=== PATIENT | female | born 1955 | race African-American/Black ===

== ENCOUNTER 2019-01-23 10:33 | Emergency (ER) | payer OTHER ==
--- OUTSIDE RECORDS SUMMARY | 2019-01-23 10:37 | XMS REPORT | CCD ---
:1955 Author Organization [facility] Care Team Providers Name Role Phone Marlene Riggins Referring Provider Lynn Penaloza Consulting Provider Problem List Condition Effective Dates Status CA - Cancer of colon Active Cholesterol Active H/O: stroke Active HT - Hypertension Active Vital Signs Most recent to oldest [Reference 1 2 Range]: Height 160.02 cm 160.02 cm (01/28/2012 09:02:00) (01/10/2012 09:26:00) Temperature Oral [96.4-99.1 DegF] 97.8 DegF 98.3 DegF (01/28/2012 09:02:00) (01/10/2012 09:26:00) Systolic Blood Pressure [90-140 mmHg] 181 mmHg 144 mmHg *HI* *HI* (01/28/2012 09:02:00) (01/10/2012 09:26:00) Diastolic Blood Pressure [60-90 mmHg] 81 mmHg 76 mmHg (01/28/2012 09:02:00) (01/10/2012 09:26:00) Respiratory Rate [14-20 BRMIN] 18 BRMIN 18 BRMIN (01/28/2012 09:02:00) (01/10/2012 09:26:00) Peripheral Pulse Rate [60-100 bpm] 53 bpm 62 bpm *LOW* (01/10/2012 09:26:00) (01/28/2012 09:02:00) Weight 80.710 kg 81.080 kg (01/28/2012 09:02:00) (01/10/2012 09:26:00)
--- OUTSIDE RECORDS SUMMARY | 2019-01-23 10:37 | XMS REPORT | Continuity of Care Document ---
:1955 Author Organization [employer] Care Team Providers Name Role Phone [facility] [employer] Unavailable Unavailable Problems Problem Status Onset Classification Date Comments Source Date Reported UNK Active 01/16/20 [address] [facility] CKD Active 01/16/20 [facility] [place] 620.2 - OVARIAN Active 04/08/20 [facility] [place] FOLLOW UP Active 03/12/[address] CANCER OF RECTAL Active 01/10/[address] COLON CANCER Active 12/27/[address] [place] - Cancer of Active Problem 11/08/2012 [facility], DAMIAN Han[place], OPILogan Baez Cholesterol Active Problem 11/08/2012 [facility], DAMIAN [place], [place] H/O: stroke Active Problem 11/08/2012 [facility], DAMIAN [place], OPID [place] HT - Hypertension Active Problem 11/08/2012 [facility], DAMIAN [place], [place] - Cancer of Active Problem 01/20/2019 [facility] Stroke Resolved Problem 01/20/2019 [facility] H/O: stroke Active Problem 01/20/2019 [facility] HT - Hypertension Active Problem 01/20/2019 [facility] Hyperlipidemia Resolved Problem 01/20/2019 [facility] HTN (Confirmed) Resolved Problem 01/20/2019 [facility] Kidney disease Resolved Problem 01/20/2019 [facility] Colon cancer Resolved Problem 01/20/2019 [facility] Medications Medication Details Route Status Patient Ordering Order Source Instructions Provider Date atorvastatin 40 40 mg=1 tab, Active mg oral tablet PO, Bedtime, # 2019 [place] 30 tab, 0 Refill(s) Aspirin 81 MG 81 mg=1 tab, Active Enteric Coated PO, Daily, # 90 2019 [facility] Tablet tab, 3 Refill(s) Ondansetron 4 MG 4 mg=1 tab, PO, Active Disintegrating BID, PRN Nausea 2019 [facility] Tablet [Zofran] and Vomiting, Dissolve tab under tongue, # 10 tab, 0 Refill(s) Acetaminophen 300 1 tab, PO, Q6H, Active MG / Codeine PRN Pain, X 7 2019 [facility] Phosphate 30 MG day, # 28 tab, Oral Tablet 0 Refill(s) [Tylenol with Codeine #3] Docusate Sodium 1 tab, PO, BID, Active 50 MG / X 10 day, # 20 2019 [facility] sennosides, GROUP HOME tab, 0 8.6 MG Oral Refill(s) Tablet metoprolol 25 mg 25 mg=1 tab, Active oral tablet, PO, Daily, # 30 2019 [facility] extended release tab, 0 Refill(s) Clonidine 0.3 mg, 1 tab, No Longer Hydrochloride 0.3 Route: PO, Drug Active 2018 [facility] Oral Tablet form: TAB, TID, Dosing Weight 62.358, kg, Start date: 01/17/19 13:00:00 CDT, Duration: 30 day, Stop date: 02/16/19 9:00:00 CDT, 0Notes: (Same As: Catapres) metoprolol 25 mg, 1 tab, No Longer extended release Route: PO, Drug Active 2018 [facility] form: ERTAB, Daily, Start date: 01/17/19 12:00:00 CDT, Duration: 30 day, Stop date: 02/16/19 9:00:00 CDT, 0Notes: (Same as: Toprol XL) Do Not Crush Ondansetron 4 mg, 2 mL, Inactive Route: IVP2018 [facility] Drug form: INJ, ONCE, Dosing Weight 62.358, kg, Start date: 01/17/19 11:09:00 CDT, Stop date: 01/17/19 11:09:00 CDT, 0Notes: (Same as: Zofran) MEDICATION WASTE Product Size: 4 mg Product Wasted: ___ mg Reglan 5 mg, 1 mL, Inactive Route: IVP, 2018 [facility] Drug form: INJ, ONCE, Dosing Weight 62.358, kg, Start date: 01/17/19 10:31:00 CDT, Stop date: 01/17/19 10:31:00 CDT, 0Notes: (Same as: Reglan) Hydralazine 10 mg, 0.5 mL, No Longer Route: IVP, Active 2018 [facility] Drug form: INJ, Q4H, Dosing Weight 62.358, kg, PRN Hypertension, Start date: 01/17/19 10:31:00 CDT, Duration: 30 day, Stop date: 02/16/19 10:30:00 CDT, 0Notes: (Same as: Apresoline) Push over 5 minutes Allopurinol 100 mg, 1 tab, No Longer Route: PO, Drug Active 2018 [facility] form: TAB, Daily, Dosing Weight 62.358, kg, Start date: 01/17/19 9:00:00 CDT, Duration: 30 day, Stop date: 02/15/19 9:00:00 CDT, 0Notes: (Same as: Zyloprim) ferrous gluconate 256 mg, Route: No Longer PO, Drug form: Active 2018 [facility] TAB, Daily, Dosing Weight 62.358, kg, Start date: 01/17/19 9:00:00 CDT, Duration: 30 day, Stop date: 02/15/19 9:00:00 CDT Docusate Sodium 1 tab, Route: No Longer 50 MG / PO, Drug Form: Active 2018 [facility] sennosides, GROUP HOME TAB, Dosing 8.6 MG Oral Weight 62.358, Tablet kg, BID, Start date: 01/17/19 9:00:00 CDT, Duration: 30 day, Stop date: 02/15/19 17:00:00 CDT, 0Notes: (Same as Senokot-S) Equiv. to Zoraida-Colace. ferrous sulfate 325 mg, 1 tab, No Longer Route: PO, Drug Active 2018 [facility] form: ECTAB, Daily, Start date: 01/17/19 9:00:00 CDT, Duration: 30 day, Stop date: 02/15/19 9:00:00 CDT, 0Notes: Give with food. "Do Not Crush" paricalcitol 1 microgram, 1 No Longer 0.001 MG Oral cap, Route: PO, Active 2019 [facility] Capsule Drug form: CAP, Daily, Dosing Weight 62.358, kg, Start date: 01/17/19 9:00:00 CDT, Duration: 30 day, Stop date: 02/15/19 9:00:00 CDT, 0Notes: (Same as: Zemplar) Nifedical XL 30 mg, 1 tab, No Longer Route: PO, Drug Active 2018 [facility] form: ERTAB, Daily, Dosing Weight 62.358, kg, Start date: 01/17/19 9:00:00 CDT, Duration: 30 day, Stop date: 02/15/19 9:00:00 CDT, 0Notes: (Same as: Adalat CC, Procardia XL) Give on empty stomach. Take 1 hour before or 2 hours after meal; "Avoid grapefruit and grapefruit juice". Do not crush Nephro-Flash Rx 1 tab, Route: No Longer PO, Drug Form: 2018 [facility] TAB, Dosing Weight 62.358, kg, Daily, Start date: 01/17/19 9:00:00 CDT, Duration: 30 day, Stop date: 02/15/19 9:00:00 CDT, 0Notes: (Same as: Nephro-Flash Rx and Diatx) Give with food. Triiodothyronine 5 microgram, 1 No Longer tab, Route: PO, 2018 [facility] Drug form: TAB, Q630AM, Dosing Weight 62.358, kg, Start date: 01/17/19 6:30:00 CDT, Duration: 30 day, Stop date: 02/15/19 6:30:00 CDT, 0Notes: (Same as: Cytomel) Thyroxine 50 microgram, 1 No Longer tab, Route: PO, 2018 [facility] Drug form: TAB, Q630AM, Dosing Weight 62.358, kg, Start date: 01/17/19 6:30:00 CDT, Duration: 30 day, Stop date: 02/15/19 6:30:00 CDT, 0Notes: Take 1 hour before or 2 hours after meal; Enteral feeds may interefere with the absorption of this medication.(Juan e as:Levothroid, Synthroid) heparin 5,000 unit, 1 No Longer mL, Route: Active 2019 [facility] SUB-Q, Drug form: INJ, Q12H, Dosing Weight 62.358, kg, Start date: 01/17/19 1:00:00 CDT, Stop date: 02/15/19 13:00:00 CDT, 0Notes: porcine heparin atorvastatin 40 mg, 1 tab, No Longer Route: PO, Drug Active 2018 [facility] form: TAB, Bedtime, Dosing Weight 62.358, kg, Start date: 01/16/19 21:00:00 CDT, Duration: 30 day, Stop date: 02/14/19 21:00:00 CDT, 0Notes: (Same as: Lipitor) Acetaminophen 325 2 tab, Route: No Longer MG / Hydrocodone PO, Drug Form: Active 2018 [facility] Bitartrate 5 MG TAB, Dosing Oral Tablet Weight 62.358, [[place] 5/325] kg, Q4H, PRN Pain Score 4-6, STAT, Start date: 01/16/19 19:40:00 CDT, Duration: 30 day, Stop date: 02/15/19 19:39:00 CDT, 0Notes: (Same as: [place] 325/5) Do not exceed 4gm/day of acetaminophen. Acetaminophen 325 2 tab, Route: Inactive MG / Hydrocodone PO, Dosing 2018 [facility] Bitartrate 5 MG Weight 62.358, Oral Tablet kg, Q4H, STAT, [[place] 5/325] Start date: 01/16/19 19:36:00 CDT, Duration: 30 day, Stop date: 02/15/19 16:00:00 CDT Milk of Magnesia 30 ml, Route: No Longer PO, Drug Form: Active 2018 [facility] SUSP, Dosing Weight 62.358, kg, ONCE, PRN as needed for constipation, Start date: 01/16/19 18:23:00 CDT, 0Notes: (Same as: Milk of Magnesia, MOM) Aspirin 81 MG 81 mg, 1 tab, No Longer Chewable Tablet Route: PO, Drug Active 2018 [facility] form: CHEWTAB, Daily, Dosing Weight 62.358, kg, Start date: 01/16/19 17:30:00 CDT, Duration: 30 day, Stop date: 02/15/19 9:00:00 CDT, 0Notes: Take with food. Zofran 4 mg, 2 mL, No Longer Route: IVP, 2018 [facility] Drug form: INJ, Q8H, Dosing Weight 62.358, kg, PRN Nausea, Start date: 01/16/19 17:24:00 CDT, Duration: 30 day, Stop date: 02/15/19 17:23:00 CDT, 0Notes: (Same as: Zofran) MEDICATION WASTE Product Size: 4 mg Product Wasted: ___ mg Lactulose 667 10 gm, 15 ml, No Longer MG/ML Oral Route: PO, Drug Active 2018 [facility] Solution form: SYRP, TID, Dosing Weight 62.358, kg, PRN Constipation, Start date: 01/16/19 17:23:00 CDT, Duration: 30 day, Stop date: 02/15/19 17:22:00 CDT, 0Notes: (Same as:Chronulac) Morphine 2 mg, 1 mL, No Longer Route: IVP, 2018 [facility] Drug form: INJ, Q4H, Dosing Weight 62.358, kg, PRN Pain Score 7-10, Start date: 01/16/19 17:23:00 CDT, Duration: 30 day, Stop date: 02/15/19 17:22:00 CDT, 0Notes: (Same as:MORPhine Sulfate) Metoprolol 2.5 mg, 2.5 mL, No Longer Route: IVP, 2018 [facility] Drug form: INJ, Q4H, Dosing Weight 62.358, kg, PRN Arrhythmias, Start date: 01/16/19 17:16:00 CDT, Duration: 30 day, Stop date: 02/15/19 17:15:00 CDT, 0Notes: (Same as: Lopressor) Push over 2 minutes Epogen 8,000 unit, 2 No Longer mL, Route: 2018 [facility] SUB-Q, Drug form: INJ, Q-M-W-F, Dosing Weight 62.358, kg, Start date: 01/16/19 17:00:00 CDT, Duration: 30 day, Stop date: 02/13/19 17:00:00 CDT, 0Notes: (Same as: Procrit) epoetin jennifer 4000 unit/1 ml VL For dialysis only. (Epogen) WASTE: F/P - Red; E -Red MEDICATION WASTE Product Size: 4000 unit Product Wasted: ___ unit Hydralazine 50 mg, 1 tab, No Longer Hydrochloride 100 Route: PO, Drug Active 2018 [facility] Oral Tablet form: TAB, TID, Dosing Weight 62.358, kg, Start date: 01/16/19 17:00:00 CDT, Duration: 30 day, Stop date: 02/15/19 13:00:00 CDT, 0Notes: (Same as: Apresoline) May interfere w/enteral feedings Take With Food Promethazine 6.25 mg, Route: Inactive IVPB, ONCE, 2018 [facility] Dosing Weight 62.358, kg, PRN Nausea & Vomiting, Start date: 01/16/19 12:59:00 CDT Naloxone 0.1 mg, Route: Inactive SUB-Q, Q6H, 2018 [facility] Dosing Weight 62.358, kg, PRN Itching, Start date: 01/16/19 12:59:00 CDT, Duration: 30 day, Stop date: 02/15/19 12:58:00 CDT Meperidine 12.5 mg, Route: Inactive IVP, Q30Min, 2018 [facility] Dosing Weight 62.358, kg, PRN Other -See Comment, For shivering, Start date: 01/16/19 12:59:00 CDT, Duration: 2 doses or times, Stop date: Limited # of times Ondansetron 4 mg, Route: Inactive IVP, ONCE, 2018 [facility] Dosing Weight 62.358, kg, PRN Nausea & Vomiting, Start date: 01/16/19 12:59:00 CDT Flumazenil 0.2 mg, Route: Inactive IVP, PRN, 2019 [facility] Dosing Weight 62.358, kg, PRN Benzodiazepine Reversal, Initial dose, Start date: 01/16/19 12:59:00 CDT, Duration: 30 day, Stop date: 02/15/19 12:58:00 CDT Fentanyl 50 microgram, Inactive Route: IVP, 2019 [facility] Q5Min, Dosing Weight 62.358, kg, PRN Pain Score 7-10, Priority: Routine, Start date: 01/16/19 12:59:00 CDT, Duration: 2 doses or times, Stop date: Limited # of times Hydromorphone 0.5 mg, Route: Inactive IVP, Q5Min, 2018 [facility] Dosing Weight 62.358, kg, PRN Pain Score 7-10, Start date: 01/16/19 12:59:00 CDT, Duration: 4 doses or times, Stop date: Limited # of times Diphenhydramine 12.5 mg, Route: Inactive IVP, Drug form: 2019 [facility] INJ, Q6H, Dosing Weight 62.358, kg, PRN Itching, Start date: 01/16/19 12:59:00 CDT, Duration: 30 day, Stop date: 02/15/19 12:58:00 CDT Albuterol 0.83 2.49 mg, Route: Inactive MG/ML Inhalant NEB, Q20Min, 2018 [facility] Solution Dosing Weight 62.358, kg, PRN Wheezing, Priority: Routine, Start date: 01/16/19 12:59:00 CDT, Duration: 30 day, Stop date: 02/15/19 12:58:00 CDT Acetaminophen 1,000 mg, Inactive Route: PO, Drug 2018 [facility] form: TAB, ONCE, Dosing Weight 62.358, kg, PRN Pain Score 1-3, Start date: 01/16/19 12:59:00 CDT Hydralazine 10 mg, Route: Inactive IVP, Q20Min, 2018 [facility] Dosing Weight 62.358, kg, PRN Elevated BP, Start date: 01/16/19 12:59:00 CDT, Duration: 2 doses or times, Stop date: Limited # of times Labetalol 10 mg, Route: Inactive IVP, Q5Min, 2018 [facility] Dosing Weight 62.358, kg, PRN Elevated BP, Start date: 01/16/19 12:59:00 CDT, Duration: 5 doses or times, Stop date: Limited # of times esmolol (ANES) Route: IV, Drug Inactive 01/16/ [facility] form: INJ, 2018 ONCE, Stop date: 01/16/19 12:45:00 CDT Dextrose 50% in Route: IV, Stop Inactive Water IV (ANES) date: 01/16/192018 12:45:00 CDT phenylephrine Route: IV, Drug Inactive 01/16/ MH (ANES) form: [id number] ONCE, Stop date: 01/16/19 12:45:00 CDT EPINEPHrine Route: IV, Drug Inactive 01/16/ MH (ANES) form: [id number] ONCE, Stop date: 01/16/19 12:43:00 CDT calcium chloride Route: IV, Drug Inactive 01/16/ MH (ANES) form: 2018, Stop date: 01/16/19 12:33:00 CDT propofol (ANES) Route: IV, Drug Inactive MH form: [id number], Stop date: 01/16/19 11:52:00 CDT Amidate (ANES) Route: IV, Drug Inactive form: INJ2018, Stop date: 01/16/19 11:52:00 CDT norepinephrine Route: IV, Drug Inactive 01/16/ MH (ANES) form: INJ2018, Stop date: 01/16/19 11:52:00 CDT lidocaine (ANES) Route: IV, Drug Inactive 01/16/ MH form: [id number], Stop date: 01/16/19 11:52:00 CDT ondansetron Route: IV, Drug Inactive 01/16/ MH (ANES) form: INJ2018 ONCE, Stop date: 01/16/19 11:42:00 CDT ceFAZolin (ANES) Route: IV, Drug Inactive 01/16/ MH form: INJ2018, Stop date: 01/16/19 11:42:00 CDT fentaNYL (ANES) Route: IV, Drug Inactive 01/16/ MH form: [id number], Stop date: 01/16/19 11:37:00 CDT vancomycin (ANES) Route: IV, Drug Inactive 1000 mg form: INJ, 2019 [facility] Start date: 01/16/19 10:50:00 CDT, Stop date: 01/16/19 11:50:00 CDT Sodium Chloride Route: IV, Inactive 0.9% IV (ANES) Total Volume: 2019 [facility] 1000 mL 1,000, Start date: 01/16/19 10:46:00 CDT, Stop date: 01/16/19 11:46:00 CDT Insulin regular 5 unit, Route: Inactive IV, ONCE, 2018 [facility] Dosing Weight 62.358, kg, Start date: 01/16/19 10:40:00 CDT, Stop date: 01/16/19 10:40:00 CDT Dextrose 12.5 gm, Route: Inactive IVPB, ONCE, 2018 [facility] Dosing Weight 62.358, kg, Start date: 01/16/19 10:39:00 CDT, Stop date: 01/16/19 10:39:00 CDT Calcium Chloride 1,000 mL, Rate: Inactive 0.0014 MEQ/ML / 25 ml/hr, 2018 [facility] Potassium Infuse over: 40 Chloride 0.004 hr, Route: IV, MEQ/ML / Sodium Dosing Weight Chloride 0.103 62.358 kg, MEQ/ML / Sodium Total Volume: Lactate 0.028 1,000, Start MEQ/ML Injectable date: 01/16/19 Solution 8:46:00 CDT, Duration: 1 day, Stop date: 01/17/19 8:45:00 CDT, 1.68, m2, 0 Sodium Chloride 1,000 mL, Rate: Inactive 0.9% IV 1,000 mL 25 ml/hr, 2018 [facility] Infuse over: 40 hr, Route: IV, Dosing Weight 62.358 kg, Total Volume: 1,000, Start date: 01/16/19 8:46:00 CDT, Duration: 1 day, Stop date: 01/17/19 8:45:00 CDT, 1.68, m2, 0 Vitamin B12 monthly, 0 Active Refill(s) 2019 [facility] allopurinol 100 100 mg=1 tab, Active mg oral tablet PO, Daily, # 90 2019 [facility] tab, 1 Refill(s) Aspirin 81 MG 81 mg=1 tab, Active Chewable Tablet PO, Daily, tab, 2019 0 Refill(s) 24 HR Nifedipine 30 mg=1 tab, No Longer 30 MG Extended PO, Daily, # 30 Active 2019 [facility] Release Tablet tab, 0 [Nifedical] Refill(s) paricalcitol 1 microgram=1 Active 0.001 MG Oral cap, PO, Daily, 2019 Capsule # 30 cap, 0 Refill(s) levothyroxine 50 50 microgram=1 Active mcg (0.05 mg) tab, PO, Daily, 2019 oral tablet # 30 tab, 0 Refill(s) liothyronine 5 5 microgram=1 Active mcg oral tablet tab, PO, Daily, 2019 # 30 tab, 0 Refill(s) Ferate 256 mg (28 256 mg=1 tab, Active mg elemental PO, Daily, 0 2019 iron) oral tablet Refill(s) Hydralazine 100 mg=1 tab, Active Hydrochloride 100 PO, TID, # 90 2019 [facility] MG Oral Tablet tab, 3 Refill(s) atorvastatin 40 40 mg=1 tab, Active mg oral tablet PO, Bedtime, # 2019 30 tab, 0 Refill(s) Clonidine 0.3 mg=1 tab, Active Hydrochloride 0.3 PO, TID, # 60 2019 [facility] MG Oral Tablet tab, 1 Refill(s) Vancomycin 1 gm, Route: No Longer IVPB, PRE OP, Active 2019 [facility] Dosing Weight 81.136, kg, Start date: 01/15/19 13:00:00 CDT, Duration: 1 day, Stop date: 01/16/19 12:59:00 CDT, ABX Indication: Surgical Prophylaxis, 0Notes: TIME CRITICAL MEDICATION (Same As: Vancocin) Infusion rate 2001 mg: infuse over 2.5 hours For adult patients only: Round to nearest 250 mg per Medical Staff approval MEDICATION WASTE Product Size: 1000 mg Product Wasted: ___ mg Ancef + sterile 2 gm, Route: No Longer water 20 mL IV, PRE OP, Active 2018 [facility] Dosing Weight 81.136, kg, Start date: 01/15/19 13:00:00 CDT, Duration: 1 day, Stop date: 01/16/19 12:59:00 CDT, ABX Indication: Surgical Prophylaxis, 0Notes: (Same As: uSndar Lennon) MEDICATION WASTE Product Size: 1000 mg Product Wasted: ___ mg Allergies, Adverse Reactions, Alerts Substance Category Reaction Severity Reaction Status Date Comments Source type Reported amLODIPine Assertion Drug Active allergy [facility] Immunizations No Data Provided for This Section Results Order Name Results Value Reference Date Interpretation Comments Source Range CHEM PANEL eGFR 13 01/18 Result Comment: [facility] eGFR is calculated using the CKD-EPI formula. In most young, healthy individuals the eGFR will be >90 mL/min/1.73m2 . The eGFR declines with age. An eGFR of 60-89 may be normal in some populations, particularly the elderly, for whom the CKD-EPI formula has not been extensively validated. Use of the eGFR is not recommended in the following populations:< br/>
Lizy viduals with unstable creatinine concentration s, including patients and those with serious co-morbid conditions.<b r/>
Patie nts with extremes in muscle mass or diet.

The data above are obtained from the National Kidney Disease Education Program (NKDEP) which additionally recommends that when the eGFR is used in patients with extremes of body mass index for purposes of drug dosing, the eGFR should be multiplied by the estimated BMI. CHEM PANEL Sodium Lvl 141 135 - 145 01/18 [facility] CHEM PANEL Creatinine 3.85 0.50 - 01/18 Lvl 1.40 [facility] CHEM PANEL Glucose Lvl 102 70 - 99 01/18 [facility] CHEM PANEL BUN 19 7 - 22 01/18 [facility] CHEM PANEL Calcium Lvl 8.6 8.5 - 10.5 01/18 [facility] CHEM PANEL Chloride Lvl 107 95 - 109 01/18 [facility] CHEM PANEL CO2 29 24 - 32 01/18 [facility] CHEM PANEL Potassium 3.7 3.5 - 5.1 01/18 Lvl /2018 [facility] CHEM PANEL AGAP 8.7 10.0 - 01/18 MH 20.0 /2018 [facility] HEMATOLOGY Segs 64.4 45.0 - 01/18 MH 75.0 /2019 [facility] HEMATOLOGY Eosinophils 3.7 0.0 - 4.0 01/18 [facility] HEMATOLOGY Monocytes 21.0 2.0 - 12.0 01/18 /2018 [facility] HEMATOLOGY Basophils 0.7 0.0 - 1.0 01/18 [facility] HEMATOLOGY Lymphocytes 10.2 20.0 - 01/18 MH 40.0 /2018 [facility] HEMATOLOGY Neutrophils 4.5 1.5 - 8.1 01/18 MH # /2018 [facility] HEMATOLOGY Lymphocytes 0.7 1.0 - 5.5 01/18 MH # /2018 [facility] HEMATOLOGY Eosinophils 0.3 0.0 - 0.5 01/18 MH # /2018 [facility] HEMATOLOGY Monocytes # 1.5 0.0 - 0.8 01/[address] [facility] WBC 7.0 3.7 - 10.4 01/[address] [facility] RBC 2.62 4.20 - 01/18 MH 5.40 /[address] [facility] Hgb 7.6 12.0 - 01/[address] [facility] Hct 22.6 36.0 - 01/18 MH 48.0 /[address] [facility] MCV 86.4 80.0 - 01/18 MH 98.0 /[address] [facility] MCHC 33.6 32.0 - 01/[address] [facility] MCH 29.0 27.0 - 01/[address] [facility] RDW 15.8 11.5 - 01/18 14.5 /[address] [facility] MPV 9.7 7.4 - 10.4 01/[address] [facility] Platelet 98 133 - 450 01/18 [facility] BLOOD BANK RBC product Product available 01/17 Result RESULTS (01/17/19 6:45 AM) Comment: [facility] 01/17/2019 07:05 [id number]
notified brennen CHEM PANEL eGFR 01/17 Result Comment: [facility] eGFR is calculated using the CKD-EPI formula. In most young, healthy individuals the eGFR will be >90 mL/min/1.73m2 . The eGFR declines with age. An eGFR of 60-89 may be normal in some populations, particularly the elderly, for whom the CKD-EPI formula has not been extensively validated. Use of the eGFR is not recommended in the following populations:< br/>
Lizy viduals with unstable creatinine concentration s, including patients and those with serious co-morbid conditions.<b r/>
Patie nts with extremes in muscle mass or diet.

The data above are obtained from the National Kidney Disease Education Program (NKDEP) which additionally recommends that when the eGFR is used in patients with extremes of body mass index for purposes of drug dosing, the eGFR should be multiplied by the estimated BMI. CHEM PANEL BUN 34 7 - 22 01/17 [facility] CHEM PANEL Creatinine 5.10 0.50 - 01/17 MH Lvl 1.40 [facility] CHEM PANEL Glucose Lvl 117 70 - 99 01/17 [facility] CHEM PANEL Chloride Lvl 106 95 - 109 01/17 [facility] CHEM PANEL Potassium 5.2 3.5 - 5.1 01/17 Lvl /2018 [facility] CHEM PANEL Sodium Lvl 141 135 - 145 01/17 [facility] CHEM PANEL CO2 25 24 - 32 01/17 [facility] CHEM PANEL Calcium Lvl 8.5 8.5 - 10.5 01/17 [facility] CHEM PANEL AGAP 15.2 10.0 - 01/17 MH 20.0 [facility] HEMATOLOGY Basophils 0.8 0.0 - 1.0 01/17 [facility] HEMATOLOGY Segs 70.0 45.0 - 01/17 MH 75.0 [facility] HEMATOLOGY Lymphocytes 8.2 20.0 - 01/17 MH 40.0 [facility] HEMATOLOGY Monocytes 19.0 2.0 - 12.0 01/17 [facility] HEMATOLOGY Eosinophils 2.0 0.0 - 4.0 01/17 [facility] HEMATOLOGY Neutrophils 4.3 1.5 - 8.1 01/17 MH # /2018 [facility] HEMATOLOGY Lymphocytes 0.5 1.0 - 5.5 01/17 # [facility] HEMATOLOGY Monocytes # 1.2 0.0 - 0.8 01/17 [facility] HEMATOLOGY Eosinophils 0.1 0.0 - 0.5 01/17 MH # /2018 [facility] HEMATOLOGY Hct 21.1 36.0 - 01/17 MH 48.0 [facility] HEMATOLOGY MCV 87.7 80.0 - 01/17 MH 98.0 [facility] HEMATOLOGY Hgb 6.8 12.0 - 01/17 Result MH 16.0 Comment: [facility] Critical Result(s) called to jarod rodríguez at 01/17/2019 06:21_ by hd_. Read back OK. HEMATOLOGY MCH 28.4 27.0 - 01/17 MH 31.0 /2018 [facility] HEMATOLOGY RDW 16.6 11.5 - 01/17 MH 14.5 /2018 [facility] HEMATOLOGY Platelet 102 133 - 450 01/17 [facility] HEMATOLOGY MPV 9.7 7.4 - 10.4 01/17 /2018 [facility] HEMATOLOGY MCHC 32.4 32.0 - 01/17 MH 36.0 /2018 [facility] HEMATOLOGY WBC 6.1 3.7 - 10.4 01/17 [facility] HEMATOLOGY RBC 2.41 4.20 - 01/17 5.40 /2018 [facility] IMMUNOLOGY Hep C Ab Negative 01/16 *NA* /2018 [facility] (01/16/19 2:50 PM) IMMUNOLOGY Hep Bs Ab <3.1 <=7.4 01/16 mIU/mL /2018 [facility] IMMUNOLOGY Hep B Core Negative Negative 01/16 Ab *NA* /2018 [facility] (01/16/19 2:50 PM) IMMUNOLOGY Hep Bs Ag Negative Negative 01/16 *NA* /2018 [facility] (01/16/19 2:50 PM) CHEM PANEL eGFR 8 01/16 Result Comment: [facility] eGFR is calculated using the CKD-EPI formula. In most young, healthy individuals the eGFR will be >90 mL/min/1.73m2 . The eGFR declines with age. An eGFR of 60-89 may be normal in some populations, particularly the elderly, for whom the CKD-EPI formula has not been extensively validated. Use of the eGFR is not recommended in the following populations:< br/>
Lizy viduals with unstable creatinine concentration s, including patients and those with serious co-morbid conditions.<b r/>
Patie nts with extremes in muscle mass or diet.

The data above are obtained from the National Kidney Disease Education Program (NKDEP) which additionally recommends that when the eGFR is used in patients with extremes of body mass index for purposes of drug dosing, the eGFR should be multiplied by the estimated BMI. CHEM PANEL Potassium 3.3 3.5 - 5.1 01/16 Lvl /2018 [facility] CHEM PANEL Chloride Lvl 108 95 - 109 01/16 [facility] CHEM PANEL CO2 23 24 - 32 01/16 [facility] CHEM PANEL Calcium Lvl 10.1 8.5 - 10.5 01/16 [facility] CHEM PANEL AGAP 12.3 10.0 - 01/16 MH 20.0 [facility] CHEM PANEL Sodium Lvl 140 135 - 145 01/16 [facility] CHEM PANEL BUN 47 7 - 22 01/16 [facility] CHEM PANEL Creatinine 5.77 0.50 - 01/16 Lvl 1.40 [facility] CHEM PANEL Glucose Lvl 131 70 - 99 01/16 [facility] HEMATOLOGY Hct 26.2 36.0 - 01/16 48.0 [facility] HEMATOLOGY Hgb 8.3 12.0 - 01/16 16.0 [facility] HEMATOLOGY RBC 2.98 4.20 - 01/16 MH 5.40 [facility] HEMATOLOGY WBC 4.6 3.7 - 10.4 01/16 [facility] HEMATOLOGY RDW 16.7 11.5 - 01/16 14.5 [facility] HEMATOLOGY MCHC 31.8 32.0 - 01/16 36.0 [facility] HEMATOLOGY MCH 28.0 27.0 - 01/16 31.0 [facility] HEMATOLOGY MCV 87.9 80.0 - 01/16 98.0 [facility] HEMATOLOGY MPV 9.1 7.4 - 10.4 01/16 [facility] HEMATOLOGY Platelet 140 133 - 450 01/16 [facility] HEMATOLOGY Eosinophils 0.1 0.0 - 0.5 01/16 MH # /2018 [facility] HEMATOLOGY Monocytes # 0.6 0.0 - 0.8 01/16 [facility] HEMATOLOGY Lymphocytes 0.9 1.0 - 5.5 01/16 # /2018 [facility] HEMATOLOGY Lymphocytes 19.1 20.0 - 01/16 MH 40.0 [facility] HEMATOLOGY Segs 65.9 45.0 - 01/16 75.0 /2018 [facility] HEMATOLOGY Eosinophils 2.3 0.0 - 4.0 01/16 [facility] HEMATOLOGY Monocytes 12.1 2.0 - 12.0 01/16 /2018 [facility] HEMATOLOGY Neutrophils 3.1 1.5 - 8.1 01/16 MH # /2018 [facility] HEMATOLOGY Basophils 0.6 0.0 - 1.0 01/16 /2018 [facility] BLOOD BANK Antibody Negative 01/16 RESULTS Scrn (01/16/19 9:35 AM) /2018 [facility] BLOOD BANK ABO/Rh B POS 01/16 RESULTS /2018 [facility] HEMATOLOGY PT 14.1 12.0 - 01/16 MH 14.7 /2018 [facility] HEMATOLOGY INR 1.11 0.85 - 01/16 1.17 /2018 [facility] HEMATOLOGY PTT 28.3 22.9 - 01/16 35.8 /2018 [facility] Pathology Reports No Data Provided for This Section Diagnostic Reports Report Value Date Source Chest 1 v for Placement Patient Name: EVIE RICKS : 1955 [facility] DX Age: 63 years, Female MR: [id number] Study: Chest 1 v for Placement DX 01/16/2019 12:55 CDT Indication: Line Placement - Chest 1 view for line placement. Comparison: Chest 2 views 01/16/2019. Findings: Lines/tubes: Right internal jugular tunneled central venous catheters with the tips projecting over the expected regions of the right atrium. Kinking of the proximal catheters may represent fixation points with sutures. Cardiovascular: Normal cardiac silhouette. Normal thoracic aorta. Mediastinum: No mediastinal or hilar mass or lymphadenopathy. Lungs: No parenchymal mass. No focal consolidation. Pleura: No pleural effusion. No pneumothorax. Soft tissues: Subcutaneous air, surgical clips, and skin fuad project over the left upper extremity. Bones: No acute osseous abnormality. Degenerative changes of the thoracic spine. IMPRESSION: Right internal jugular central venous catheters positioned as above. Postoperative changes of the left upper extremity. SL: [id number] Chest 2 views DX Clinical Indication: Coughing - preoperative. 01/16/2019 [facility] Comparison: None FINDINGS: PA and lateral chest radiographs were obtained. MEDIASTINUM: The cardiac silhouette is mildly enlarged. The aorta is unremarkable. LUNGS: The lungs are clear. No pleural effusion. No pneumothorax. OTHER: No acute osseous abnormalities. IMPRESSION: Cardiomegaly, without acute cardiopulmonary abnormality identified. SL: [id number] Pelvis with Pelvis 11/06/2012 DAMIAN Baez Transvaginal US REASON FOR EXAM: 620.2. COMPARISON: Pelvic ultrasound 05/19/2012 and 01/10/2012. FINDINGS: Transabdominal and transvaginal ultrasound of the pelvis was performed. Static images are submitted. TRANSABDOMINAL SONOGRAM: The urinary bladder is partially distended without demonstrable abnormality. The uterus is surgically absent. There is a right pelvic cyst which is better depicted on the transvaginal exam. There is no free fluid in the pelvis. TRANSVAGINAL SONOGRAM: The uterus is surgically absent. Normal right ovary measuring 1.7 x 2.7 x 2.3 cm. Arterial flow is demonstrated in the right ovary by spectral Doppler analysis. There is a simple appearing right paraova yajaira cyst measuring 5.1 x 4.7 x 4.6 cm, previously 5.8 x 4.2 x 4.6 cm on the most recent comparison examination. No demonstrable wall thickening, mural nodule or internal septation. The left ovary is no t seen and per patient history is surgically absent. There is no free fluid in the pelvis. IMPRESSION: 1. Status post hysterectomy and left oophorectomy. 2. Stable 5.1 cm right paraovarian cyst. Please correlate clinically and consider follow-up imaging as indicated. Dictation code: 15 Consultation Notes No Data Provided for This Section Discharge Summaries No Data Provided for This Section History and Physicals No Data Provided for This Section Vital Signs Vital Sign Value Date Comments Source Heart Rate 75 01/18/2019 [facility] Temperature Oral (F) 98.2 F 01/18/2019 [facility] Respitory Rate 16 01/18/2019 [facility] Systolic (mm Hg) 164 01/18/2019 [facility] Diastolic (mm Hg) 66 01/18/2019 [facility] Respitory Rate 16 01/18/2019 [facility] Systolic (mm Hg) 162 01/18/2019 [facility] Diastolic (mm Hg) 56 01/18/2019 [facility] Temperature Oral (F) 98.2 F 01/18/2019 [facility] Heart Rate 77 01/18/2019 [facility] Respitory Rate 16 01/18/2019 [facility] Temperature Oral (F) 98.4 F 01/18/2019 [facility] Heart Rate 74 01/18/2019 [facility] Systolic (mm Hg) 136 01/18/2019 [facility] Diastolic (mm Hg) 63 01/18/2019 [facility] BMI Calculated 24.35 01/16/2019 [facility] Weight 62.358 01/16/2019 [facility] Height 160.02 cm 01/16/2019 [facility] Weight 59.091 01/15/2019 [facility] BMI Calculated 22.36 01/15/2019 [facility] Height 162.56 cm 01/15/2019 [facility] Temperature Oral (F) 96.3 F 05/19/2012 [facility] Heart Rate 57 05/19/2012 [facility] Respitory Rate 20 05/19/2012 [facility] Systolic (mm Hg) 180 05/19/2012 [facility] Diastolic (mm Hg) 93 05/19/2012 [facility] Weight 81.136 05/19/2012 [facility] Height 160.02 cm 05/19/2012 [facility] Temperature Oral (F) 97.8 F 01/28/2012 [facility] Systolic (mm Hg) 181 01/28/2012 [facility] Heart Rate 53 01/28/2012 [facility] Respitory Rate 18 01/28/2012 [facility] Diastolic (mm Hg) 81 01/28/2012 [facility] Weight 80.710 01/28/2012 [facility] Height 160.02 cm 01/28/2012 [facility] Respitory Rate 18 01/10/2012 [facility] Heart Rate 62 01/10/2012 [facility] Temperature Oral (F) 98.3 F 01/10/2012 [facility] Diastolic (mm Hg) 76 01/10/2012 [facility] Systolic (mm Hg) 144 01/10/2012 [facility] Weight 81.080 01/10/2012 [facility] Height 160.02 cm 01/10/2012 [facility] Encounters Location Location Encounter Encounter Reason Attending ADM DC Status Source Details Type Number For Provider Date Date Visit [facility] [id number] CANCER PUTAO KEV 01/[address] [facility] 1 [facility] [place] [facility] [place] [id number] COLON PUTAO KEV 01/09 02/07 Active [facility] 0 CANCER /2011 [facility] [place] [id number] FOLLOW JUAN 05/19 Active [facility] 1 [facility] Observation [id number] [place] 01/16 01/18 [facility] Outpatient [id number] COLON RAJYALAKSHM Cancel [place] [address] [facility] [place] [id number] 620.2 - JUAN Cancel OPID 0 OVARIAN DUBOSE Scott [facility] [place] Procedures Procedure Code Date Perfomer Comments Source Colectomy 15890920 [facility] Thyroidectomy [id number] [facility] Total hysterectomy [id number] [facility] Assessment and Plan Assessment and Plan Date Source Extracted from:Title: Cardiology Progress Note 01/18/2019 [facility] Author: Darrick Lewis MD Date: 01/18/19 Impression and Plan ESRD on hemodialysis s/p L AVF transposition on 01/16 SVT Hypertension Hyperlipidemia CVA Hypothyroidism Acute on chronic anemia Presents for a left AV fistula transposition Intraoperatively noted to have SVT Denies any chest pain or shortness of breath. No palpitations as well We will continue to monitor on telemetry. TTE unremarkable TSH wnl Keep K > 4 and Mg > 2 Resume MTP xl at 25 mg daily. Titrate as needed Adjust BP meds as need. IV hydralazine prn Stable from a CV standpoint to d/c home. D/w Dr. Chairez Extracted from:Title: Medicine Consultation H&P Author: Rosy Chairez [facility] Meera DO Date: 01/16/19 Impression and Plan ESRD - s/p right AVF and placement of tunneled cath today with Dr. Luke -Continue symptomatic care - cont to monitor I/O and renally dose meds - HD per nephrology Reported SVT intraoperatively - consult cardiology Hyperkalemia, 2/2 renal failure - resolved after HD Anemia, likely AOCD - cont to monitor h/h and transfuse as needed - cont EPO Hypertension, BE - cont home meds Constipation - lactulose - bowel regimen hx of CVA - cont asa and statin DVT ppx with heparin Disposition: home once acute issues resolve. Will follow along with you. Thank you for allowing us to participate in this patient's care. Plan of Care No Data Provided for This Section Social History Social History Date Source Social History TypeResponse 01/15/2019 [facility] Alcohol Never Smoking Status Never smoker; Previous treatment: None; Exposure to Tobacco Smoke None; Cigarette Smoking Last 365 Days No; Reg Smoking Cessation Counseling No entered on: 01/15/19 Family History No Data Provided for This Section Advance Directives No Data Provided for This Section Functional Status No Data Provided for This Section
--- OUTSIDE RECORDS SUMMARY | 2019-01-23 10:37 | XMS REPORT | CCD ---
:1955 Author Organization [facility] Care Team Providers Name Role Phone Greg Krystina Karthik Referring Provider Problem List Condition Effective Dates Status CA - Cancer of colon Active Cholesterol Active H/O: stroke Active HT - Hypertension Active Vital Signs Most recent to oldest [Reference Range]: 1 Height 160.02 cm (05/19/2012 10:43:00) Temperature Oral [96.4-99.1 DegF] 96.3 DegF *LOW* (05/19/2012 10:43:00) Systolic Blood Pressure [90-140 mmHg] 180 mmHg *HI* (05/19/2012 10:43:00) Diastolic Blood Pressure [60-90 mmHg] 93 mmHg *HI* (05/19/2012 10:43:00) Respiratory Rate [14-20 BRMIN] 20 BRMIN (05/19/2012 10:43:00) Peripheral Pulse Rate [60-100 bpm] 57 bpm *LOW* (05/19/2012 10:43:00) Weight 81.136 kg (05/19/2012 10:43:00)
--- OUTSIDE RECORDS SUMMARY | 2019-01-23 10:37 | XMS REPORT ---
:1955 [facility] [address] [place] [address] Care Team Providers Name Role Phone Unavailable Unavailable Unavailable Problems This patient has no known problems. Allergies, Adverse Reactions, Alerts This patient has no known allergies or adverse reactions. Medications This patient has no known medications. Encounters Start End Encounter Admission Attending Care Care Encounter Date/Time Date/Time Type Type Clinicians Facility Department ID 2019-01-16 2019-01-16 Outpatient [id number] 13:29:00 13:29:00
--- OUTSIDE RECORDS SUMMARY | 2019-01-23 10:37 | XMS REPORT | CCD ---
:1955 Author Organization [facility] [place] Care Team Providers Name Role Phone Krystina Garza Consulting Provider Problem List Condition Effective Dates Status CA - Cancer of colon Active Cholesterol Active H/O: stroke Active HT - Hypertension Active
--- OUTSIDE RECORDS SUMMARY | 2019-01-23 10:37 | XMS REPORT | CCD ---
:1955 Author Organization [facility] Outpatient [facility] Team Providers Name Role Phone Krystina Garza Consulting Provider Problem List Condition Effective Dates Status CA - Cancer of colon Active Cholesterol Active H/O: stroke Active HT - Hypertension Active
[2019-01-23] MEDS ORDERED: ONDANSETRON 4 MG/2 ML VIAL ONE ×2 (11:52→14:14)
--- NOTE | 2019-01-23 12:14 | RAD REPORT ---
EXAM DESCRIPTION: CT - Abdomen Pelvis Wo Contrast - 01/23/2019 11:33 am CLINICAL HISTORY: Abdominal pain COMPARISON: None. TECHNIQUE: Axial [address] imaging of the abdomen and pelvis was performed without IV contrast. No IV contrast was given because of allergy, abnormal renal function, patient refusal or physician re quest. Oral contrast was given. All CT scans are performed using dose optimization technique as appropriate and may include automated exposure control or mA/KV adjustment according to patient size. FINDINGS: Cardiomegaly is present with enlarged left atrium. No pericardial thickening or effusion. No acute lung parenchymal process. Liver size is normal. There are few small round low-density areas of the liver that are nonspecific. No grossly abnormal liver lesions seen. No spleen or pancreatic process seen. Upper abdomen has limit ation due to motion in addition to the limitations due to no oral or IV contrast. No biliary tree dilatation. Several small gallstones are clustered and layering in the dependent port ion of the gallbladder fundus. A central right renal low-density mass is present believed to be a 14 millimeter cyst. No hydronephro sis. No nonobstructing calculi seen. No left-sided hydronephrosis. There is a low-density area in the left kidney centrally 19 mm in size that is believed to be a cyst. More poorly, the patient has a la rge exophytic lower pole mass 5 cm in diameter. This shows heterogeneous attenuation and renal cell c arcinoma is the most likely etiology. No significant adrenal finding. Isodense renal masses and pyel onephritis cannot be excluded in the absence of IV contrast. Partially filled urinary bladder shows n o stone or mass. A 5.5 centimeter cystic mass in the right side pelvis is present. Uterus is absent. Surgical history of ovaries unknown. This is most likely a 5 centimeter paraovarian cyst. No fat, calcification or sof t tissue component. Cystadenoma is possible. No gastric dilatation or wall thickening. There is a large amount of stool dilating the rectum. Sigmo id colon is tortuous. Stool volume is moderate. There is a large amount of stool dilating the transve rse colon and left side colon to the descending sigmoid junction. Surgical clips are present. Patient appears to be status post right hemicolectomy. No mass at the anastomotic site. No free air, free fl uid or inflammatory stranding. Patient has a small umbilical hernia. This contains a knuckle of small bowel. No wall thickening, edema or other finding to suspect obstruction. No suspicious bony findings. IMPRESSION: Approximately 5 centimeter exophytic lower pole left renal mass with renal cell carcinom a the single most likely etiology. No abnormal lymphadenopathy seen. Liver has a few small 1 centimeter or less low-density areas that a re nonspecific. Large amount of stool dilating the rectum and dilating the transverse colon down to the descending co cayla sigmoid colon junction. The right-side of the colon appears to be surgically absent. Anastomotic clips are seen at the right lateral margin of dilated portion of transverse colon. Cardiomegaly with left atrial enlargement. No pericardial effusion. Small umbilical hernia containing a knuckle of small bowel. No acute findings at this site. Full assessment is limited is the absence of IV contrast.
[2019-01-23 12:39] LABS: Absolute Lymphocytes (CBC) 0.8 K/uL (0.7-4.9); Basophils % 1.1 % (0-1.3); Hematocrit 26.3 % (36.0-45.0); Lymphocytes % 11.3 % (15.3-44.8); RBC Red Blood Cell Count 2.97 M/uL (3.86-4.86)
[2019-01-23 12:41] LABS: Albumin 3.5 g/dL (3.4-5.0); Bilirubin Direct 0.3 mg/dL (0-0.2); Bilirubin Total 0.9 mg/dL (0.2-1.0); Magnesium 2.9 mg/dL (1.8-2.4); Potassium 3.9 mmol/L (3.5-5.1)
[2019-01-23 13:13] LABS: Protime INR 1.01
[2019-01-23 13:15] LABS: Anisocytosis 1+; Blood Morphology Comment NOTED (NOT SEEN); Ovalocytes 1+; Platelet Estimate ADEQ
--- NOTE | 2019-01-23 16:13 | EDPHYS ---
Physician Documentation [facility] Name: Alma Rosa Corral Age: 63 yrs Sex: Female : 1955 Arrival Date: 01/23/2019 Time: 10:35 Bed 20 Private MD: Pattie Riggins R ED Physician Arnold Caro HPI: 01/23 11:06 This 63 yrs old Black Female presents to ER via Ambulatory with complaints of cp Nausea/Vomiting, Constipation. 11:06 The patient presents to the emergency department with nausea, that is mild, vomiting, cp that is intermittent, abdominal pain, constipation. 11:06 Associated signs and symptoms: Pertinent negatives: diarrhea, dysuria, fever, GI cp bleeding. Severity of symptoms: in the emergency department the symptoms are unchanged. 11:06 Onset: The symptoms/episode began/occurred 1 week(s) ago. cp Historical: - Allergies: 10:43 amlodipine; hb - PMHx: 10:43 HD - MWF; CVA; Hypertension; hb - PSHx: 10:43 HD Fistula - Left FA; hb - Immunization history:: Adult Immunizations up to date. - Social history:: Smoking status: Patient/guardian denies using tobacco. - Ebola Screening: : No symptoms or risks identified at this time. ROS: 11:15 Constitutional: Positive for poor PO intake, Negative for body aches, chills, fever. cp 11:15 Eyes: Negative for injury, pain, redness, and discharge. cp 11:15 ENT: Negative for drainage from ear(s), ear pain, sore throat, difficulty swallowing, difficulty handling secretions. 11:15 Cardiovascular: Negative for chest pain, palpitations. 11:15 Respiratory: Negative for cough, shortness of breath, wheezing. 11:15 Abdomen/GI: Positive for nausea and vomiting, constipation, anorexia, Negative for diarrhea, black/tarry stool, rectal bleeding. 11:15 Back: Negative for pain at rest, pain with movement. 11:15 Skin: Negative for rash. 11:15 Neuro: Negative for altered mental status, headache, weakness. 11:15 All other systems are negative. Exam: 11:25 Constitutional: The patient appears in no acute distress, alert, awake, cp non-diaphoretic, non-toxic, well developed, well nourished. 11:25 Head/Face: Normocephalic, atraumatic. cp 11:25 Eyes: Periorbital structures: appear normal, Conjunctiva: normal, no exudate, no cp injection, Sclera: no appreciated abnormality, Lids and lashes: appear normal, bilaterally. 11:25 ENT: External ear(s): are unremarkable, Nose: is normal, Mouth: Lips: moist, Oral mucosa: moist, Posterior pharynx: is normal, airway is patent, no erythema, no exudate. 11:25 Chest/axilla: Inspection: normal, Palpation: is normal, no crepitus, no tenderness. 11:25 Cardiovascular: Rate: normal, Rhythm: regular, Edema: is not appreciated, JVD: is not appreciated. 11:25 Respiratory: the patient does not display signs of respiratory distress, Respirations: normal, no use of accessory muscles, no retractions, no splinting, no tachypnea, Breath sounds: are clear throughout, no decreased breath sounds, no stridor, no wheezing. 11:25 Abdomen/GI: Inspection: distension, that is mild, Bowel sounds: active, all quadrants, Palpation: soft, in all quadrants, mild abdominal tenderness, in all quadrants, rebound tenderness, is not appreciated, involuntary guarding, is not appreciated. 11:25 Back: pain, is absent, ROM is normal. Vital Signs: 10:41 BP 148 / 88; Pulse 65; Resp 16; Temp 97.8; Pulse Ox 100% on R/A; Weight 58.97 kg; hb Height 5 ft. 3 in. (160.02 cm); Pain 9/10; 12:35 BP 164 / 61; Pulse 71; Resp 18; Pulse Ox 98% on R/A; em 13:30 BP 139 / 57; Pulse 66; Resp 18; Pulse Ox 98% on R/A; em 15:30 BP 160 / 62; Pulse 56; Resp 16; Pulse Ox 97% on R/A; Pain 0/10; em 16:38 BP 146 / 77; Pulse 70; Resp 18; Pulse Ox 99% on R/A; Pain 0/10; em 10:41 Body Mass Index 23.03 (58.97 kg, 160.02 cm) hb MDM: 10:48 Patient medically screened. cp 11:00 Differential diagnosis: constipation, bowel obstruction. cp 16:10 Data reviewed: vital signs, nurses notes, lab test result(s), radiologic studies, CT cp scan. 16:10 Counseling: I had a detailed discussion with the patient and/or guardian regarding: the cp historical points, exam findings, and any diagnostic results supporting the discharge/admit diagnosis, lab results, radiology results, to return to the emergency department if symptoms worsen or persist or if there are any questions or concerns that arise at home. Response to treatment: the patient's symptoms have markedly improved after treatment, VSS. Large bowel movement observed after enema in ED. Patient reports feeling better and requesting discharge to home after admission offered. 01/23 10:56 Order name: Basic Metabolic Panel; Complete Time: 13:22 cp 01/23 13:22 Interpretation: Normal except: GLUC 113; BUN 22; CRE 4.25; GFR 13. cp 01/23 10:56 Order name: CBC with Diff; Complete Time: 13:22 cp 01/23 13:22 Interpretation: Normal except: RBC 2.97; HGB 8.4; HCT 26.3; RDW 16.1; LYM% 11.3; MN% cp 15.5. 01/23 10:56 Order name: Creatinine for Radiology; Complete Time: 13:22 cp 01/23 10:56 Order name: Hepatic Function; Complete Time: 13:22 cp 01/23 10:56 Order name: Lipase; Complete Time: 13:22 cp 01/23 10:56 Order name: Magnesium; Complete Time: 13:22 cp 01/23 10:56 Order name: PT-INR; Complete Time: 13:22 cp 01/23 10:56 Order name: Ptt, Activated; Complete Time: 13:22 cp 01/23 11:20 Order name: CT Abd/Pelvis - Without Contrast; Complete Time: 12:15 cp 01/23 13:15 Order name: Manual Differential; Complete Time: 13:22 EDMS 01/23 10:56 Order name: IV Saline Lock; Complete Time: 12:29 cp 01/23 10:56 Order name: Labs collected and sent; Complete Time: 12:29 cp 01/23 15:46 Order name: PO challenge; Complete Time: 16:05 cp Administered Medications: 11:54 CANCELLED (Physician Discretion): Zofran 4 mg IVP once; over 2 minutes cp 12:22 Drug: Zofran 4 mg Route: IVP; Site: right wrist; aa5 13:00 Follow up: Response: No adverse reaction; Nausea is decreased em 14:04 Drug: soap augustin 1 application Route: MS; em 16:04 Follow up: Response: No adverse reaction; Marked relief of symptoms em Disposition: 01/23/19 16:11 Discharged to Home. Impression: Constipation. - Condition is Stable. - Discharge Instructions: Constipation, Adult. - Medication Reconciliation Form, Thank You Letter, Antibiotic Education, Prescription Opioid Use form. - Follow up: Private Physician; When: Tomorrow; Reason: dialysis. - Problem is new. - Symptoms have improved. Addendum: 01/26/2019 09:10 Co-signature as Attending Physician, Arnold aCro MD I agree with the assessment and k dr plan of care. Signatures: Dispatcher [employer] [facility] Arnold Caro MD MD [facility] Sriram Rivera, RESEARCH CHIEF ENGINEER RESEARCH CHIEF ENGINEER em Alka Wilson, RN RN aa5 Brayden Ray PA PA cp Tea Frazier, RN RN Corrections: (The following items were deleted from the chart) 01/23 11:23 11:03 Abdomen Pelvis W Con+CT.RAD.BRZ ordered. [facility] 11:54 11:54 Zofran 4 mg IVP once; over 2 minutes ordered. cp 16:40 16:11 01/23/2019 16:11 Discharged to Home. Impression: Constipation. Condition is em Stable. Forms are Medication Reconciliation Form, Thank You Letter, Antibiotic Education, Prescription Opioid Use. Follow up: Private Physician; When: Tomorrow; Reason: dialysis. Problem is new. Symptoms have improved. cp 01/24 15:35 01/23 11:06 Onset: The symptoms/episode began/occurred 2 week(s) ago, cp cp
--- NOTE | 2019-01-23 16:13 | ER ---
Nurse's Notes [facility] [place], [place] Name: Alma Rosa Corral Age: 63 yrs Sex: Female : 1955 Arrival Date: 01/23/2019 Time: 10:35 Bed 20 Private MD: Pattie Riggins R Diagnosis: Constipation Presentation: 01/23 10:39 Presenting complaint: Constipation and abdominal pain x 1 week, N/V x 3-4 days. Not hb tolerating medications/food. Transition of care: patient was not received from another setting of care. Onset of symptoms was January 14, 2019. Risk Assessment: Do you want to hurt yourself or someone else? Patient reports no desire to harm self or others. Initial Sepsis Screen: Does the patient meet any 2 criteria? No. Patient's initial sepsis screen is negative. Does the patient have a suspected source of infection? No. Patient's initial sepsis screen is negative. Care prior to arrival: None. 10:39 Method Of Arrival: Ambulatory hb 10:39 Acuity: LILIBETH 3 hb Historical: - Allergies: 10:43 amlodipine; hb - PMHx: 10:43 HD - MWF; CVA; Hypertension; hb - PSHx: 10:43 HD Fistula - Left FA; hb - Immunization history:: Adult Immunizations up to date. - Social history:: Smoking status: Patient/guardian denies using tobacco. - Ebola Screening: : No symptoms or risks identified at this time. Screenin:05 Abuse screen: Denies threats or abuse. Nutritional screening: No deficits noted. em Tuberculosis screening: No symptoms or risk factors identified. Fall Risk None identified. Assessment: 11:05 General: Appears in no apparent distress. comfortable, Behavior is calm, cooperative, em Denies fever. Pain: Complains of pain in abdomen Pain currently is 9 out of 10 on a pain scale. Neuro: Level of Consciousness is awake, alert, obeys commands, Oriented to person, place, time, situation, Speech is slurred. Cardiovascular: Capillary refill < 3 seconds Patient's skin is warm and dry. Respiratory: Airway is patent Respiratory effort is even, unlabored, Respiratory pattern is regular, symmetrical. GI: Abdomen is flat, Bowel sounds present X 4 quads. Reports constipation, nausea, vomiting. Derm: Skin is intact, is healthy with good turgor, Skin is pink, warm \T\ dry. surgical site noted on left upper arm, removal of dialysis fistula, no drainage noted, bruising noted, dressed with 4x4 and Kerlix. Musculoskeletal: Range of motion: intact in all extremities. 11:05 Reassessment: Patient is alert, oriented x 3, equal unlabored respirations, skin aa5 warm/dry/pink. I agree with assessment completed by Sriram Rivera LVN. Pt's speech is slurred and difficult to understand. 11:10 Reassessment: unsuccessful IV attempt, charge nurse notified. em 12:20 Reassessment: reports nausea is getting worse, provider notified, new medication orders em received. 12:34 Reassessment: Patient appears in no apparent distress at this time. Patient and/or em family updated on plan of care and expected duration. Pain level reassessed. Patient is alert, oriented x 3, equal unlabored respirations, skin warm/dry/pink. lab at bedside. 13:05 Reassessment: LALO Sanchez chaperoned provider for rectal exam. em 14:17 Reassessment: Patient appears in no apparent distress at this time. Patient and/or em family updated on plan of care and expected duration. Pain level reassessed. Patient is alert, oriented x 3, equal unlabored respirations, skin warm/dry/pink. passed small to medium BM after soapsuds enema, pt reports feeling better, reports nausea has returned, provider notified, new medication orders received, will repeat enema. 15:25 Reassessment: Patient appears in no apparent distress at this time. received second em soapsuds enema, no BM noted after enema, provider notified Patient states feeling better. Patient states symptoms have improved. 16:10 Reassessment: Patient appears in no apparent distress at this time. given lemon-ak chin em soda for PO challenge, tolerated well, provider notified, family will take pt home and administer home laxatives. Vital Signs: 10:41 BP 148 / 88; Pulse 65; Resp 16; Temp 97.8; Pulse Ox 100% on R/A; Weight 58.97 kg; hb Height 5 ft. 3 in. (160.02 cm); Pain 9/10; 12:35 BP 164 / 61; Pulse 71; Resp 18; Pulse Ox 98% on R/A; em 13:30 BP 139 / 57; Pulse 66; Resp 18; Pulse Ox 98% on R/A; em 15:30 BP 160 / 62; Pulse 56; Resp 16; Pulse Ox 97% on R/A; Pain 0/10; em 16:38 BP 146 / 77; Pulse 70; Resp 18; Pulse Ox 99% on R/A; Pain 0/10; em 10:41 Body Mass Index 23.03 (58.97 kg, 160.02 cm) hb ED Course: 10:35 Patient arrived in ED. as 10:36 Pattie Riggins MD is Private Physician. as 10:41 Triage completed. hb 10:41 Arm band placed on. hb 10:45 Brayden Ray PA is PHCP. cp 10:45 Arnold Caro MD is Attending Physician. cp 10:48 Sriram Rivera LVN is Primary Nurse. em 11:05 Patient has correct armband on for positive identification. Placed in gown. Bed in low em position. Adult w/ patient. Pulse ox on. NIBP on. 11:10 Missed attempt(s): 22 gauge in right forearm. Bleeding controlled, band aid applied, em catheter tip intact. 11:33 CT Abd/Pelvis - Without Contrast In Process Unspecified. EDMS 12:00 Initial lab(s) drawn, by me, sent to lab. Missed attempt(s): 24 gauge in right hand. aa5 Bleeding controlled, band aid applied, catheter tip intact. 12:15 Missed attempt(s): 24 gauge in right forearm. Bleeding controlled, band aid applied, aa5 catheter tip intact. 12:22 Inserted saline lock: 24 gauge in right wrist, using aseptic technique. aa5 16:39 No provider procedures requiring assistance completed. IV discontinued, intact, em bleeding controlled, No redness/swelling at site. Pressure dressing applied. Administered Medications: 11:54 CANCELLED (Physician Discretion): Zofran 4 mg IVP once; over 2 minutes cp 12:22 Drug: Zofran 4 mg Route: IVP; Site: right wrist; aa5 13:00 Follow up: Response: No adverse reaction; Nausea is decreased em 14:04 Drug: soap augutsin 1 application Route: NH; em 16:04 Follow up: Response: No adverse reaction; Marked relief of symptoms em Outcome: 16:11 Discharge ordered by . cp 16:39 Discharged to home via wheelchair, with family. em 16:39 Condition: good 16:39 Discharge instructions given to patient, family, Instructed on discharge instructions, follow up and referral plans. Demonstrated understanding of instructions, follow-up care. 16:40 Patient left the ED. em Signatures: Dispatcher [employer] [facility] Sriram Rivera, BEAN WEIGHER BEAN WEIGHER em Alayna Harry Audri, RN RN aa5 Brayden Ray PA PA cp Tea Frazier RN RN hb Corrections: (The following items were deleted from the chart) 12:39 11:05 Neuro: Level of Consciousness is awake, alert, obeys commands, Oriented to em person, place, time, situation, em 12:39 11:05 Cardiovascular: Capillary refill < 3 seconds Patient's skin is warm and dry. em em 12:39 11:05 Derm: Skin is intact, is healthy with good turgor, Skin is pink, warm \T\ dry. em em
== END 2019-01-23 16:40 | disposition home or self-care (01) ==
LOC: ER 10:33
DX: K59.00 Constipation, unspecified (principal); I10 Essential (primary) hypertension; Z86.73 Personal history of transient ischemic attack (TIA), and cerebral infarction without residual deficits
CPT/HCPCS: 85025; 80048; 36415; 83735; 85610; 80076; 85730; 83690; 74176; J2405 ×2; 96374; 99284

== ENCOUNTER 2019-01-27 15:26 | Observation (INO) | payer OTHER ==
--- OUTSIDE RECORDS SUMMARY | 2019-01-27 15:30 | XMS REPORT | Continuity of Care Document ---
:1955 Author Organization [employer] Care Team Providers Name Role Phone [facility] [email or web address] Unavailable Unavailable Problems Problem Status Onset Classification Date Comments Source Date Reported UNK Active 01/16/20 [address] [facility] CKD Active 01/16/20 [facility] [place] 620.2 - OVARIAN Active 04/08/20 [facility] [place] FOLLOW UP Active 03/12/[address] CANCER OF RECTAL Active 01/10/[address] COLON CANCER Active 12/27/[address] [place] - Cancer of Active Problem 11/08/2012 [facility], DAMIAN Hanley, OPILogan Baez Cholesterol Active Problem 11/08/2012 [facility], DAMIAN Han[place], [place] H/O: stroke Active Problem 11/08/2012 [facility], DAMIAN Han[place], OPID [place] HT - Hypertension Active Problem 11/08/2012 [facility], DAMIAN Han[place], [place] - Cancer of Active Problem 01/20/2019 [facility] Stroke Resolved Problem 01/20/2019 [facility] H/O: stroke Active Problem 01/20/2019 [facility] HT - Hypertension Active Problem 01/20/2019 [facility] Hyperlipidemia Resolved Problem 01/20/2019 [facility] HTN (Confirmed) Resolved Problem 01/20/2019 [facility] Kidney disease Resolved Problem 01/20/2019 [facility] Colon cancer Resolved Problem 01/20/2019 [facility] Medications Medication Details Route Status Patient Ordering Order Source Instructions Provider Date atorvastatin 40 40 mg=1 tab, Active mg oral tablet PO, Bedtime, # 2019 [place] 30 tab, 0 Refill(s) Aspirin 81 MG 81 mg=1 tab, Active Enteric Coated PO, Daily, # 90 2019 [facility] Tablet tab, 3 Refill(s) Ondansetron 4 MG 4 mg=1 tab, PO, Active Disintegrating BID, PRN Nausea 2019 [facility] Tablet [Zofran] and Vomiting, Dissolve tab under tongue, # 10 tab, 0 Refill(s) Acetaminophen 300 1 tab, PO, Q6H, Active MG / Codeine PRN Pain, X 7 2019 [facility] Phosphate 30 MG day, # 28 tab, Oral Tablet 0 Refill(s) [Tylenol with Codeine #3] Docusate Sodium 1 tab, PO, BID, Active 50 MG / X 10 day, # 20 2019 [facility] sennosides, SKILLED NURSING tab, 0 8.6 MG Oral Refill(s) Tablet metoprolol 25 mg 25 mg=1 tab, Active oral tablet, PO, Daily, # 30 2019 [facility] extended release tab, 0 Refill(s) Clonidine 0.3 mg, 1 tab, No Longer Hydrochloride 0.3 Route: PO, Drug Active 2018 [facility] Oral Tablet form: TAB, TID, Dosing Weight 62.358, kg, Start date: 01/17/19 13:00:00 CDT, Duration: 30 day, Stop date: 02/16/19 9:00:00 CDT, 0Notes: (Same As: Catapres) metoprolol 25 mg, 1 tab, No Longer extended release Route: PO, Drug Active 2018 [facility] form: ERTAB, Daily, Start date: 01/17/19 12:00:00 CDT, Duration: 30 day, Stop date: 02/16/19 9:00:00 CDT, 0Notes: (Same as: Toprol XL) Do Not Crush Ondansetron 4 mg, 2 mL, Inactive Route: IVP2018 [facility] Drug form: INJ, ONCE, Dosing Weight 62.358, kg, Start date: 01/17/19 11:09:00 CDT, Stop date: 01/17/19 11:09:00 CDT, 0Notes: (Same as: Zofran) MEDICATION WASTE Product Size: 4 mg Product Wasted: ___ mg Reglan 5 mg, 1 mL, Inactive Route: IVP, 2018 [facility] Drug form: INJ, ONCE, Dosing Weight 62.358, kg, Start date: 01/17/19 10:31:00 CDT, Stop date: 01/17/19 10:31:00 CDT, 0Notes: (Same as: Reglan) Hydralazine 10 mg, 0.5 mL, No Longer Route: IVP, Active 2018 [facility] Drug form: INJ, Q4H, Dosing Weight 62.358, kg, PRN Hypertension, Start date: 01/17/19 10:31:00 CDT, Duration: 30 day, Stop date: 02/16/19 10:30:00 CDT, 0Notes: (Same as: Apresoline) Push over 5 minutes Allopurinol 100 mg, 1 tab, No Longer Route: PO, Drug Active 2018 [facility] form: TAB, Daily, Dosing Weight 62.358, kg, Start date: 01/17/19 9:00:00 CDT, Duration: 30 day, Stop date: 02/15/19 9:00:00 CDT, 0Notes: (Same as: Zyloprim) ferrous gluconate 256 mg, Route: No Longer PO, Drug form: Active 2018 [facility] TAB, Daily, Dosing Weight 62.358, kg, Start date: 01/17/19 9:00:00 CDT, Duration: 30 day, Stop date: 02/15/19 9:00:00 CDT Docusate Sodium 1 tab, Route: No Longer 50 MG / PO, Drug Form: Active 2018 [facility] sennosides, SKILLED NURSING TAB, Dosing 8.6 MG Oral Weight 62.358, Tablet kg, BID, Start date: 01/17/19 9:00:00 CDT, Duration: 30 day, Stop date: 02/15/19 17:00:00 CDT, 0Notes: (Same as Senokot-S) Equiv. to Zoraida-Colace. ferrous sulfate 325 mg, 1 tab, No Longer Route: PO, Drug Active 2018 [facility] form: ECTAB, Daily, Start date: 01/17/19 9:00:00 CDT, Duration: 30 day, Stop date: 02/15/19 9:00:00 CDT, 0Notes: Give with food. "Do Not Crush" paricalcitol 1 microgram, 1 No Longer 0.001 MG Oral cap, Route: PO, Active 2019 [facility] Capsule Drug form: CAP, Daily, Dosing Weight 62.358, kg, Start date: 01/17/19 9:00:00 CDT, Duration: 30 day, Stop date: 02/15/19 9:00:00 CDT, 0Notes: (Same as: Zemplar) Nifedical XL 30 mg, 1 tab, No Longer Route: PO, Drug Active 2018 [facility] form: ERTAB, Daily, Dosing Weight 62.358, kg, Start date: 01/17/19 9:00:00 CDT, Duration: 30 day, Stop date: 02/15/19 9:00:00 CDT, 0Notes: (Same as: Adalat CC, Procardia XL) Give on empty stomach. Take 1 hour before or 2 hours after meal; "Avoid grapefruit and grapefruit juice". Do not crush Nephro-Flash Rx 1 tab, Route: No Longer PO, Drug Form: 2018 [facility] TAB, Dosing Weight 62.358, kg, Daily, Start date: 01/17/19 9:00:00 CDT, Duration: 30 day, Stop date: 02/15/19 9:00:00 CDT, 0Notes: (Same as: Nephro-Flash Rx and Diatx) Give with food. Triiodothyronine 5 microgram, 1 No Longer tab, Route: PO, 2018 [facility] Drug form: TAB, Q630AM, Dosing Weight 62.358, kg, Start date: 01/17/19 6:30:00 CDT, Duration: 30 day, Stop date: 02/15/19 6:30:00 CDT, 0Notes: (Same as: Cytomel) Thyroxine 50 microgram, 1 No Longer tab, Route: PO, 2018 [facility] Drug form: TAB, Q630AM, Dosing Weight [...] No Longer Route: PO, Drug Active 2018 [facility] form: TAB, Bedtime, Dosing Weight 62.358, kg, Start date: 01/16/19 21:00:00 CDT, Duration: 30 day, Stop date: 02/14/19 21:00:00 CDT, 0Notes: (Same as: Lipitor) Acetaminophen 325 2 tab, Route: No Longer MG / Hydrocodone PO, Drug Form: Active 2018 [facility] Bitartrate 5 MG TAB, Dosing Oral Tablet Weight 62.358, [[place] 5/325] kg, Q4H, PRN Pain Score 4-6, STAT, Start date: 01/16/19 19:40:00 CDT, Duration: 30 day, Stop date: 02/15/19 19:39:00 CDT, 0Notes: (Same as: [place] 325/5) Do not exceed 4gm/day of acetaminophen. Acetaminophen 325 2 tab, Route: Inactive MG / Hydrocodone PO, Dosing 2018 [facility] Bitartrate 5 MG Weight 62.358, Oral Tablet kg, Q4H, STAT, [[place] 5/325] Start date: 01/16/19 19:36:00 CDT, Duration: [...] Chewable Tablet Route: PO, Drug Active 2018 [facility] form: CHEWTAB, Daily, Dosing Weight 62.358, kg, Start date: 01/16/19 17:30:00 CDT, Duration: 30 day, Stop date: 02/15/19 9:00:00 CDT, 0Notes: Take with food. Zofran 4 mg, 2 mL, No Longer Route: IVP, 2018 [facility] Drug form: INJ, Q8H, Dosing Weight 62.358, kg, PRN Nausea, Start date: 01/16/19 17:24:00 CDT, Duration: 30 day, Stop date: 02/15/19 17:23:00 CDT, 0Notes: (Same as: Zofran) MEDICATION WASTE Product Size: 4 mg Product Wasted: ___ mg Lactulose 667 10 gm, 15 ml, No Longer MG/ML Oral Route: PO, Drug Active 2018 [facility] Solution form: SYRP, TID, Dosing Weight 62.358, kg, PRN Constipation, Start date: 01/16/19 17:23:00 CDT, Duration: 30 day, Stop date: 02/15/19 17:22:00 CDT, 0Notes: (Same as:Chronulac) Morphine 2 mg, 1 mL, No Longer Route: IVP, 2018 [facility] Drug form: INJ, Q4H, Dosing Weight 62.358, kg, PRN Pain Score 7-10, Start date: 01/16/19 17:23:00 CDT, Duration: 30 day, Stop date: 02/15/19 17:22:00 CDT, 0Notes: (Same as:MORPhine Sulfate) Metoprolol 2.5 mg, 2.5 mL, No Longer Route: IVP, 2018 [facility] Drug form: INJ, Q4H, Dosing Weight 62.358, kg, PRN Arrhythmias, Start date: 01/16/19 17:16:00 CDT, Duration: 30 day, Stop date: 02/15/19 17:15:00 CDT, 0Notes: (Same as: Lopressor) Push over 2 minutes Epogen 8,000 unit, 2 No Longer mL, Route: 2018 [facility] SUB-Q, Drug form: INJ, Q-M-W-F, Dosing [...] 6.25 mg, Route: Inactive IVPB, ONCE, 2018 [facility] Dosing Weight 62.358, kg, PRN Nausea & Vomiting, Start date: 01/16/19 12:59:00 CDT Naloxone 0.1 mg, Route: Inactive SUB-Q, Q6H, 2018 [facility] Dosing Weight 62.358, kg, PRN Itching, Start date: 01/16/19 12:59:00 CDT, Duration: 30 day, Stop date: 02/15/19 12:58:00 CDT Meperidine 12.5 mg, Route: Inactive IVP, Q30Min, 2018 [facility] Dosing Weight 62.358, kg, PRN Other -See Comment, For shivering, Start date: 01/16/19 12:59:00 CDT, Duration: 2 doses or times, Stop date: Limited # of times Ondansetron 4 mg, Route: Inactive IVP, ONCE, 2018 [facility] Dosing Weight 62.358, kg, PRN Nausea & Vomiting, Start date: 01/16/19 12:59:00 CDT Flumazenil 0.2 mg, Route: Inactive IVP, PRN, 2019 [facility] Dosing Weight 62.358, kg, PRN Benzodiazepine Reversal, Initial dose, Start date: 01/16/19 12:59:00 CDT, Duration: 30 day, Stop date: 02/15/19 12:58:00 CDT Fentanyl 50 microgram, Inactive Route: IVP, 2019 [facility] Q5Min, Dosing Weight 62.358, kg, PRN Pain Score 7-10, Priority: Routine, Start date: 01/16/19 12:59:00 CDT, Duration: 2 doses or times, Stop date: Limited # of times Hydromorphone 0.5 mg, Route: Inactive IVP, Q5Min, 2018 [facility] Dosing Weight 62.358, kg, PRN Pain Score 7-10, Start date: 01/16/19 12:59:00 CDT, Duration: 4 doses or times, Stop date: Limited # of times Diphenhydramine 12.5 mg, Route: Inactive IVP, Drug form: 2019 [facility] INJ, Q6H, Dosing Weight 62.358, kg, PRN Itching, Start date: 01/16/19 12:59:00 CDT, Duration: 30 day, Stop date: 02/15/19 12:58:00 CDT Albuterol 0.83 2.49 mg, Route: Inactive MG/ML Inhalant NEB, Q20Min, 2018 [facility] Solution Dosing Weight 62.358, kg, PRN Wheezing, Priority: Routine, Start date: 01/16/19 12:59:00 CDT, Duration: 30 day, Stop date: 02/15/19 12:58:00 CDT Acetaminophen 1,000 mg, Inactive Route: PO, Drug 2018 [facility] form: TAB, ONCE, Dosing Weight 62.358, kg, PRN Pain Score 1-3, Start date: 01/16/19 12:59:00 CDT Hydralazine 10 mg, Route: Inactive IVP, Q20Min, 2018 [facility] Dosing Weight 62.358, kg, PRN Elevated BP, Start date: 01/16/19 12:59:00 CDT, Duration: 2 doses or times, Stop date: Limited # of times Labetalol 10 mg, Route: Inactive IVP, Q5Min, 2018 [facility] Dosing Weight 62.358, kg, PRN Elevated [...] Drug Inactive 1000 mg form: INJ, 2019 [facility] Start date: 01/16/19 10:50:00 CDT, Stop date: 01/16/19 11:50:00 CDT Sodium Chloride Route: IV, Inactive 0.9% IV (ANES) Total Volume: 2019 [facility] 1000 mL 1,000, Start date: 01/16/19 10:46:00 CDT, Stop date: 01/16/19 11:46:00 CDT Insulin regular 5 unit, Route: Inactive IV, ONCE, 2018 [facility] Dosing Weight 62.358, kg, Start date: 01/16/19 10:40:00 CDT, Stop date: 01/16/19 10:40:00 CDT Dextrose 12.5 gm, Route: Inactive IVPB, ONCE, 2018 [facility] Dosing Weight 62.358, kg, Start date: 01/16/19 10:39:00 CDT, Stop date: 01/16/19 10:39:00 CDT Calcium Chloride 1,000 mL, Rate: Inactive 0.0014 MEQ/ML / 25 ml/hr, 2018 [facility] Potassium Infuse over: 40 Chloride 0.004 hr, Route: IV, MEQ/ML / Sodium Dosing Weight Chloride 0.103 62.358 kg, MEQ/ML / Sodium Total Volume: Lactate 0.028 1,000, Start MEQ/ML Injectable date: 01/16/19 Solution 8:46:00 CDT, Duration: 1 day, Stop date: 01/17/19 8:45:00 CDT, 1.68, m2, 0 Sodium Chloride 1,000 mL, Rate: Inactive 0.9% IV 1,000 mL 25 ml/hr, 2018 [facility] Infuse over: 40 hr, Route: IV, Dosing Weight 62.358 kg, Total Volume: 1,000, Start date: 01/16/19 8:46:00 CDT, Duration: 1 day, Stop date: 01/17/19 8:45:00 CDT, 1.68, m2, 0 Vitamin B12 monthly, 0 Active Refill(s) 2019 [facility] allopurinol 100 100 mg=1 tab, Active mg oral tablet PO, Daily, # 90 2019 [facility] tab, 1 Refill(s) Aspirin 81 MG 81 mg=1 tab, Active Chewable Tablet PO, Daily, tab, 2019 0 Refill(s) 24 HR Nifedipine 30 mg=1 tab, No Longer 30 MG Extended PO, Daily, # 30 Active 2019 [facility] Release Tablet tab, 0 [Nifedical] Refill(s) [...] Hydrochloride 100 PO, TID, # 90 2019 [facility] MG Oral Tablet tab, 3 Refill(s) atorvastatin 40 40 mg=1 tab, Active mg oral tablet PO, Bedtime, # 2019 30 tab, 0 Refill(s) Clonidine 0.3 mg=1 tab, Active Hydrochloride 0.3 PO, TID, # 60 2019 [facility] MG Oral Tablet tab, 1 Refill(s) Vancomycin 1 gm, Route: No Longer IVPB, PRE OP, Active 2019 [facility] Dosing Weight 81.136, kg, Start date: [...] 20 mL IV, PRE OP, Active 2018 [facility] Dosing Weight 81.136, kg, Start date: 01/15/19 13:00:00 CDT, Duration: 1 day, Stop date: 01/16/19 12:59:00 CDT, ABX Indication: Surgical Prophylaxis, 0Notes: (Same As: Sundar Lennon) MEDICATION WASTE Product Size: 1000 mg Product Wasted: ___ mg Allergies, Adverse Reactions, Alerts Substance Category Reaction Severity Reaction Status Date Comments Source type Reported amLODIPine Assertion Drug Active allergy [facility] Immunizations No Data Provided for This Section Results Order Name Results Value Reference Date Interpretation Comments Source Range CHEM PANEL eGFR 13 01/18 Result Comment: The [facility] eGFR is calculated using the CKD-EPI [...] Sodium Lvl 141 135 - 145 01/18 [facility] CHEM PANEL Creatinine 3.85 0.50 - 01/18 Lvl 1.40 [facility] CHEM PANEL Glucose Lvl 102 70 - 99 01/18 [facility] CHEM PANEL BUN 19 7 - 22 01/18 [facility] CHEM PANEL Calcium Lvl 8.6 8.5 - 10.5 01/18 [facility] CHEM PANEL Chloride Lvl 107 95 - 109 01/18 [facility] CHEM PANEL CO2 29 24 - 32 01/18 [facility] CHEM PANEL Potassium 3.7 3.5 - 5.1 01/18 Lvl /2018 [facility] CHEM PANEL AGAP 8.7 10.0 - 01/18 [facility] 20.0 /2018 [facility] HEMATOLOGY Segs 64.4 45.0 - 01/18 [facility] 75.0 /2019 [facility] HEMATOLOGY Eosinophils 3.7 0.0 - 4.0 01/18 [facility] HEMATOLOGY Monocytes 21.0 2.0 - 12.0 01/18 /2018 [facility] HEMATOLOGY Basophils 0.7 0.0 - 1.0 01/18 [facility] HEMATOLOGY Lymphocytes 10.2 20.0 - 01/18 [facility] 40.0 /2018 [facility] HEMATOLOGY Neutrophils 4.5 1.5 - 8.1 01/18 [facility] # /2018 [facility] HEMATOLOGY Lymphocytes 0.7 1.0 - 5.5 01/18 MH # /2018 [facility] HEMATOLOGY Eosinophils 0.3 0.0 - 0.5 01/18 MH # /2018 [facility] HEMATOLOGY Monocytes # 1.5 0.0 - 0.8 01/18 [facility] [place] WBC 7.0 3.7 - 10.4 01/18 [facility] [place] RBC 2.62 4.20 - 01/18 MH 5.40 /2018 [facility] [place] Hgb 7.6 12.0 - 01/18 MH 16.0 [facility] [place] Hct 22.6 36.0 - 01/18 MH 48.0 /2018 [facility] [place] MCV 86.4 80.0 - 01/18 [facility] 98.0 /2018 [facility] [place] MCHC 33.6 32.0 - 01/18 36.0 [facility] [place] MCH 29.0 27.0 - 01/18 31.0 [facility] [place] RDW 15.8 11.5 - 01/18 14.5 /2018 [facility] [place] MPV 9.7 7.4 - 10.4 01/18 [facility] [place] Platelet 98 133 - 450 01/18 [facility] BLOOD BANK RBC product Product available 01/17 Result RESULTS (01/17/19 6:45 AM) Comment: [facility] 01/17/2019 07:05 [id number]
notified brennen CHEM PANEL eGFR 01/17 Result Comment: [facility] eGFR is calculated using the CKD-EPI [...] PANEL BUN 34 7 - 22 01/17 [facility] CHEM PANEL Creatinine 5.10 0.50 - 01/17 MH Lvl 1.40 [facility] CHEM PANEL Glucose Lvl 117 70 - 99 01/17 [facility] CHEM PANEL Chloride Lvl 106 95 - 109 01/17 [facility] CHEM PANEL Potassium 5.2 3.5 - 5.1 01/17 Lvl /2018 [facility] CHEM PANEL Sodium Lvl 141 135 - 145 01/17 [facility] CHEM PANEL CO2 25 24 - 32 01/17 [facility] CHEM PANEL Calcium Lvl 8.5 8.5 - 10.5 01/17 [facility] CHEM PANEL AGAP 15.2 10.0 - 01/17 MH 20.0 [facility] HEMATOLOGY Basophils 0.8 0.0 - 1.0 01/17 [facility] HEMATOLOGY Segs 70.0 45.0 - 01/17 MH 75.0 [facility] HEMATOLOGY Lymphocytes 8.2 20.0 - 01/17 MH 40.0 [facility] HEMATOLOGY Monocytes 19.0 2.0 - 12.0 01/17 [facility] HEMATOLOGY Eosinophils 2.0 0.0 - 4.0 01/17 [facility] HEMATOLOGY Neutrophils 4.3 1.5 - 8.1 01/17 [facility] # /2018 [facility] HEMATOLOGY Lymphocytes 0.5 1.0 - 5.5 01/17 # [facility] HEMATOLOGY Monocytes # 1.2 0.0 - 0.8 01/17 [facility] HEMATOLOGY Eosinophils 0.1 0.0 - 0.5 01/17 [facility] # /2018 [facility] HEMATOLOGY Hct 21.1 36.0 - 01/17 MH 48.0 [facility] HEMATOLOGY MCV 87.7 80.0 - 01/17 MH 98.0 [facility] HEMATOLOGY Hgb 6.8 12.0 - 01/17 Result MH 16.0 Comment: [facility] Critical Result(s) called to jarod rodríguez at 01/17/2019 06:21_ by hd_. Read back OK. HEMATOLOGY MCH 28.4 27.0 - 01/17 MH 31.0 /2018 [facility] HEMATOLOGY RDW 16.6 11.5 - 01/17 MH 14.5 /2018 [facility] HEMATOLOGY Platelet 102 133 - 450 01/17 [facility] HEMATOLOGY MPV 9.7 7.4 - 10.4 01/17 /2018 [facility] HEMATOLOGY MCHC 32.4 32.0 - 01/17 MH 36.0 /2018 [facility] HEMATOLOGY WBC 6.1 3.7 - 10.4 01/17 [facility] HEMATOLOGY RBC 2.41 4.20 - 01/17 5.40 /2018 [facility] IMMUNOLOGY Hep C Ab Negative 01/16 *NA* /2018 [facility] (01/16/19 2:50 PM) IMMUNOLOGY Hep Bs Ab <3.1 <=7.4 01/16 mIU/mL /2018 [facility] IMMUNOLOGY Hep B Core Negative Negative 01/16 Ab *NA* /2018 [facility] (01/16/19 2:50 PM) IMMUNOLOGY Hep Bs Ag Negative Negative 01/16 *NA* /2018 [facility] (01/16/19 2:50 PM) CHEM PANEL eGFR 8 01/16 Result Comment: The [facility] eGFR is calculated using the CKD-EPI [...] 3.3 3.5 - 5.1 01/16 Lvl /2018 [facility] CHEM PANEL Chloride Lvl 108 95 - 109 01/16 [facility] CHEM PANEL CO2 23 24 - 32 01/16 [facility] CHEM PANEL Calcium Lvl 10.1 8.5 - 10.5 01/16 [facility] CHEM PANEL AGAP 12.3 10.0 - 01/16 MH 20.0 [facility] CHEM PANEL Sodium Lvl 140 135 - 145 01/16 [facility] CHEM PANEL BUN 47 7 - 22 01/16 [facility] CHEM PANEL Creatinine 5.77 0.50 - 01/16 Lvl 1.40 [facility] CHEM PANEL Glucose Lvl 131 70 - 99 01/16 [facility] HEMATOLOGY Hct 26.2 36.0 - 01/16 48.0 [facility] HEMATOLOGY Hgb 8.3 12.0 - 01/16 16.0 [facility] HEMATOLOGY RBC 2.98 4.20 - 01/16 MH 5.40 [facility] HEMATOLOGY WBC 4.6 3.7 - 10.4 01/16 [facility] HEMATOLOGY RDW 16.7 11.5 - 01/16 14.5 [facility] HEMATOLOGY MCHC 31.8 32.0 - 01/16 36.0 [facility] HEMATOLOGY MCH 28.0 27.0 - 01/16 31.0 [facility] HEMATOLOGY MCV 87.9 80.0 - 01/16 98.0 [facility] HEMATOLOGY MPV 9.1 7.4 - 10.4 01/16 [facility] HEMATOLOGY Platelet 140 133 - 450 01/16 [facility] HEMATOLOGY Eosinophils 0.1 0.0 - 0.5 01/16 MH # /2018 [facility] HEMATOLOGY Monocytes # 0.6 0.0 - 0.8 01/16 [facility] HEMATOLOGY Lymphocytes 0.9 1.0 - 5.5 01/16 # /2018 [facility] HEMATOLOGY Lymphocytes 19.1 20.0 - 01/16 MH 40.0 [facility] HEMATOLOGY Segs 65.9 45.0 - 01/16 75.0 /2018 [facility] HEMATOLOGY Eosinophils 2.3 0.0 - 4.0 01/16 [facility] HEMATOLOGY Monocytes 12.1 2.0 - 12.0 01/16 /2018 [facility] HEMATOLOGY Neutrophils 3.1 1.5 - 8.1 01/16 MH # /2018 [facility] HEMATOLOGY Basophils 0.6 0.0 - 1.0 01/16 /2018 [facility] BLOOD BANK Antibody Negative 01/16 RESULTS Scrn (01/16/19 9:35 AM) /2018 [facility] BLOOD BANK ABO/Rh B POS 01/16 RESULTS /2018 [facility] HEMATOLOGY PT 14.1 12.0 - 01/16 MH 14.7 /2018 [facility] HEMATOLOGY INR 1.11 0.85 - 01/16 1.17 /2018 [facility] HEMATOLOGY PTT 28.3 22.9 - 01/16 35.8 /2018 [facility] Pathology Reports No Data Provided for This Section Diagnostic Reports Report Value Date Source Chest 1 v for Placement Patient Name: EVIE RICKS : 1955 [facility] DX Age: 63 years, Female MR: [id number] Study: Chest 1 v for Placement DX [...] changes of the left upper extremity. SL: [id number] Chest 2 views DX Clinical Indication: Coughing - preoperative. 01/16/2019 [facility] Comparison: None FINDINGS: PA and lateral chest radiographs were obtained. MEDIASTINUM: The cardiac silhouette is mildly enlarged. The aorta is unremarkable. LUNGS: The lungs are clear. No pleural effusion. No pneumothorax. OTHER: No acute osseous abnormalities. IMPRESSION: Cardiomegaly, without acute cardiopulmonary abnormality identified. SL: [id number] Pelvis with Pelvis 11/06/2012 DAMIAN Baez Transvaginal [...] Date Comments Source Heart Rate 75 01/18/2019 [facility] Temperature Oral (F) 98.2 F 01/18/2019 [facility] Respitory Rate 16 01/18/2019 [facility] Systolic (mm Hg) 164 01/18/2019 [facility] Diastolic (mm Hg) 66 01/18/2019 [facility] Respitory Rate 16 01/18/2019 [facility] Systolic (mm Hg) 162 01/18/2019 [facility] Diastolic (mm Hg) 56 01/18/2019 [facility] Temperature Oral (F) 98.2 F 01/18/2019 [facility] Heart Rate 77 01/18/2019 [facility] Respitory Rate 16 01/18/2019 [facility] Temperature Oral (F) 98.4 F 01/18/2019 [facility] Heart Rate 74 01/18/2019 [facility] Systolic (mm Hg) 136 01/18/2019 [facility] Diastolic (mm Hg) 63 01/18/2019 [facility] BMI Calculated 24.35 01/16/2019 [facility] Weight 62.358 01/16/2019 [facility] Height 160.02 cm 01/16/2019 [facility] Weight 59.091 01/15/2019 [facility] BMI Calculated 22.36 01/15/2019 [facility] Height 162.56 cm 01/15/2019 [facility] Temperature Oral (F) 96.3 F 05/19/2012 [facility] Heart Rate 57 05/19/2012 [facility] Respitory Rate 20 05/19/2012 [facility] Systolic (mm Hg) 180 05/19/2012 [facility] Diastolic (mm Hg) 93 05/19/2012 [facility] Weight 81.136 05/19/2012 [facility] Height 160.02 cm 05/19/2012 [facility] Temperature Oral (F) 97.8 F 01/28/2012 [facility] Systolic (mm Hg) 181 01/28/2012 [facility] Heart Rate 53 01/28/2012 [facility] Respitory Rate 18 01/28/2012 [facility] Diastolic (mm Hg) 81 01/28/2012 [facility] Weight 80.710 01/28/2012 [facility] Height 160.02 cm 01/28/2012 [facility] Respitory Rate 18 01/10/2012 [facility] Heart Rate 62 01/10/2012 [facility] Temperature Oral (F) 98.3 F 01/10/2012 [facility] Diastolic (mm Hg) 76 01/10/2012 [facility] Systolic (mm Hg) 144 01/10/2012 [facility] Weight 81.080 01/10/2012 [facility] Height 160.02 cm 01/10/2012 [facility] Encounters Location Location Encounter Encounter Reason Attending ADM DC Status Source Details Type Number For Provider Date Date Visit [facility] Outpatient [id number] CANCER PUTAO KEV 01/09 Active [facility] 1 [facility] RECTAL [facility] AMPULLA [facility] [place] [id number] COLON PUTAO KEV 01/09 02/07 Active [facility] 0 CANCER /[address] [facility] [place] [id number] FOLLOW JUAN 05/19 Active [facility] 1 [facility] Observation [id number] [place] 01/16 01/18 Talon Hughes [facility] Outpatient [id number] COLON RAJYALAKSHM Cancel [place] [address] [facility] [place] [id number] 620.2 - JUAN Cancel OPID 0 OVARIAN DUBOSE [place] [facility] Procedures Procedure Code Date Perfomer Comments Source Colectomy [id number] [facility] Thyroidectomy [id number] [facility] Total hysterectomy [id number] [facility] Assessment and Plan Assessment and Plan Date Source Extracted from:Title: Cardiology Progress Note 01/18/2019 [facility] Author: Darrick Lewis MD Date: 01/18/19 [...] from:Title: Medicine Consultation H&P Author: Rosy Chairez [facility] Meera DO Date: 01/16/19 Impression and Plan [...] History Date Source Social History TypeResponse 01/15/2019 [facility] Alcohol Never Smoking Status Never smoker; Previous treatment: None; Exposure to Tobacco Smoke None; Cigarette Smoking Last 365 Days No; Reg Smoking Cessation Counseling No entered on: 01/15/19 Family History No Data Provided for This Section Advance Directives No Data Provided for This Section Functional Status No Data Provided for This Section
--- OUTSIDE RECORDS SUMMARY | 2019-01-27 15:31 | XMS REPORT | CCD ---
:1955 Author Organization [facility] Care Team Providers Name Role Phone Greg [...]
--- OUTSIDE RECORDS SUMMARY | 2019-01-27 15:31 | XMS REPORT | CCD ---
:1955 [address] [facility] Outpatient Imaging [facility] Team Providers Name Role Phone Krystina Garza Consulting Provider Problem List Condition Effective Dates Status CA - Cancer of colon Active Cholesterol Active H/O: stroke Active HT - Hypertension Active
--- OUTSIDE RECORDS SUMMARY | 2019-01-27 15:31 | XMS REPORT | CCD ---
:1955 Author Organization [facility] Care Team Providers Name Role Phone Marlene [...]
--- OUTSIDE RECORDS SUMMARY | 2019-01-27 15:31 | XMS REPORT | CCD ---
:[address] [facility] Outpatient Imaging [place] Care Team Providers Name Role Phone Krystina Garza Consulting Provider Problem List Condition Effective Dates Status CA - Cancer of colon Active Cholesterol Active H/O: stroke Active HT - Hypertension Active
--- OUTSIDE RECORDS SUMMARY | 2019-01-27 15:31 | XMS REPORT ---
:1955 [facility] Address [address] Olson [address] [place] [id number] Care Team Providers Name Role Phone Unavailable Unavailable Unavailable Problems This patient has no known problems. Allergies, Adverse Reactions, Alerts This patient has no known allergies or adverse reactions. Medications This patient has no known medications. Encounters Start End Encounter Admission Attending Care Care Encounter Date/Time Date/Time Type Type Clinicians Facility Department ID 2019-01-16 2019-01-16 Out[facility] 13:29:00 13:29:00
[2019-01-27] MEDS ORDERED: NA CHLORIDE 0.9% 1,000 ML ONE (15:50)
--- NOTE | 2019-01-27 16:16 | RAD REPORT ---
EXAM DESCRIPTION: RAD - Chest Single View - 01/27/2019 4:01 pm CLINICAL HISTORY: Cough, hypotension, dialysis patient COMPARISON: August 2010 TECHNIQUE: AP portable chest image was obtained 1601 hours . FINDINGS: No peripheral mass or consolidation seen. Lung markings are accentuated by a slightly shal low inspiration. A mild failure or volume overload component is suspected. Trachea is midline. Cardio megaly is present. Pulmonary vasculature is mildly prominent. Right-sided dialysis catheter is in juanita ce. Numerous surgical clips and skin fuad are present in the upper left arm presumably related to dialysis fistula graft. No measurable pleural effusion and no pneumothorax. No acute bony abnormality seen. No acute aortic findings suspected. IMPRESSION: No focal mass or consolidation. Cardiomegaly is present with mild vascular engorgement and interstitial prominence. This is likely a mild volume overload.
--- NOTE | 2019-01-27 16:24 | RAD REPORT ---
EXAM DESCRIPTION: CT - Head Brain Wo Cont - 01/27/2019 4:17 pm CLINICAL HISTORY: Syncope, history of CVA COMPARISON: None. TECHNIQUE: Axial 5 mm thick images of the head were obtained without IV contrast. All CT scans are performed using dose optimization technique as appropriate and may include automated exposure control or mA/KV adjustment according to patient size. FINDINGS: No intracranial hemorrhage, mass, edema or shift of mid-line structures. No acute cortical based infarction. No cortical edema or sulcal effacement. Old CVA changes are present in the left ba kory ganglia involving the lentiform nucleus. A small area of infarction is seen in the right lentifor m nucleus. Patient has significant bifrontal white matter chronic ischemic change and more moderate c hronic ischemic change in the parietal lobes. No abnormal extra-axial fluid collections. No significa nt atrophy. Ventricles are in proportion to any minimal volume loss. Mastoid air cells and visualized portions of the paranasal sinuses are clear. No acute bony findings. IMPRESSION: No acute cortical based infarction identified. No hemorrhage or mass lesion. Patient has prominent for age white matter chronic ischemic change as well is a old infarctions in ea ch lentiform nucleus. Chronic ischemic changes can mask nonhemorrhagic acute infarction. MR brain followup can be obtained if there is ongoing concern for acute ischemia.
[2019-01-27 16:42] LABS: Basophils % 1.3 % (0-1.3); Hematocrit 29.4 % (36.0-45.0); Lymphocytes % 15.9 % (15.3-44.8); MPV 8.9 fL (7.6-11.3); RBC Red Blood Cell Count 3.27 M/uL (3.86-4.86)
[2019-01-27 16:43] LABS: Protime INR 1.03
[2019-01-27 17:05] LABS: Urine Blood NEGATIVE (NEG); Urine Glucose NEGATIVE (NEG); Urine Protein 2+ (NEG)
[2019-01-27 17:09] LABS: Albumin 3.5 g/dL (3.4-5.0); Bilirubin Direct 0.3 mg/dL (0-0.2); Bilirubin Total 0.9 mg/dL (0.2-1.0); Magnesium 2.5 mg/dL (1.8-2.4); Potassium 3.4 mmol/L (3.5-5.1); Protein, Total 7.3 g/dL (6.4-8.2); Troponin (Emerg Dept Use Only) 0.06 ng/mL (0.0-0.045)
--- NOTE | 2019-01-27 17:42 | EDPHYS ---
Physician Documentation [facility] Name: Alma Rosa Corral Age: 63 yrs Sex: Female : 1955 Arrival Date: 01/27/2019 Time: 15:31 Bed 28 Private MD: Pattie Riggins R ED Physician Brayden Yoder HPI: 01/27 16:52 This 63 yrs old Black Female presents to ER via Ambulatory with complaints of Blood trevor Pressure Problem, Passed Out Prior To Arrival. 16:52 The patient has experienced syncope, The patient has experienced near-syncope, almost trevor passed out. Onset: The symptoms/episode began/occurred just prior to arrival. Duration: This was a single episode, that lasted 10 second(s). Context: the episode(s) was witnessed, by family. Associated injury: Head/face:. Associated signs and symptoms: The patient has no apparent associated signs or symptoms. Current symptoms: Currently, the patient is not experiencing any symptoms. The patient has experienced similar episodes in the past, several times. Historical: - Allergies: 15:35 amlodipine; hj - PMHx: 15:35 CVA; HD - MWF; Hypertension; hj - PSHx: 15:35 HD Fistula - Left FA; hj - Immunization history:: Adult Immunizations. - Social history:: Smoking status: Patient/guardian denies using tobacco. - Family history:: not pertinent. - Ebola Screening: : Patient negative for fever greater than or equal to 101.5 degrees Fahrenheit, and additional compatible Ebola Virus Disease symptoms Patient denies exposure to infectious person Patient denies travel to an Ebola-affected area in the 21 days before illness onset No symptoms or risks identified at this time. ROS: 16:52 Constitutional: Negative for fever, chills, and weight loss, Eyes: Negative for injury, trevor pain, redness, and discharge, ENT: Negative for injury, pain, and discharge, Neck: Negative for injury, pain, and swelling, Cardiovascular: Negative for chest pain, palpitations, and edema, Respiratory: Negative for shortness of breath, cough, wheezing, and pleuritic chest pain, Abdomen/GI: Negative for abdominal pain, nausea, vomiting, diarrhea, and constipation, Back: Negative for injury and pain, : Negative for injury, bleeding, discharge, and swelling, MS/Extremity: Negative for injury and deformity, Skin: Negative for injury, rash, and discoloration, Psych: Negative for depression, anxiety, suicide ideation, homicidal ideation, and hallucinations, Allergy/Immunology: Negative for hives, rash, and allergies, Endocrine: Negative for neck swelling, polydipsia, polyuria, polyphagia, and marked weight changes, Hematologic/Lymphatic: Negative for swollen nodes, abnormal bleeding, and unusual bruising. 16:52 Neuro: Positive for near syncope, weakness. Exam: 16:52 Constitutional: This is a well developed, well nourished patient who is awake, alert, trevor and in no acute distress. Head/Face: Normocephalic, atraumatic. Eyes: Pupils equal round and reactive to light, extra-ocular motions intact. Lids and lashes normal. Conjunctiva and sclera are non-icteric and not injected. Cornea within normal limits. Periorbital areas with no swelling, redness, or edema. ENT: Nares patent. No nasal discharge, no septal abnormalities noted. Tympanic membranes are normal and external auditory canals are clear. Oropharynx with no redness, swelling, or masses, exudates, or evidence of obstruction, uvula midline. Mucous membranes moist. Neck: Trachea midline, no thyromegaly or masses palpated, and no cervical lymphadenopathy. Supple, full range of motion without nuchal rigidity, or vertebral point tenderness. No Meningismus. Chest/axilla: Normal chest wall appearance and motion. Nontender with no deformity. No lesions are appreciated. Cardiovascular: Regular rate and rhythm with a normal S1 and S2. No gallops, murmurs, or rubs. Normal PMI, no JVD. No pulse deficits. Respiratory: Lungs have equal breath sounds bilaterally, clear to auscultation and percussion. No rales, rhonchi or wheezes noted. No increased work of breathing, no retractions or nasal flaring. Abdomen/GI: Soft, non-tender, with normal bowel sounds. No distension or tympany. No guarding or rebound. No evidence of tenderness throughout. Back: No spinal tenderness. No costovertebral tenderness. Full range of motion. Skin: Warm, dry with normal turgor. Normal color with no rashes, no lesions, and no evidence of cellulitis. Neuro: Awake and alert, GCS 15, oriented to person, place, time, and situation. Cranial nerves II-XII grossly intact. Motor strength 5/5 in all extremities. Sensory grossly intact. Cerebellar exam normal. Normal gait. Psych: Awake, alert, with orientation to person, place and time. Behavior, mood, and affect are within normal limits. 16:52 Musculoskeletal/extremity: Extremities: grossly normal except: 16:58 Musculoskeletal/extremity: Circulation is intact in all extremities. Sensation intact. [facility] Compartment Syndrome exam of affected extremity: is normal. DVT Exam: negative Homans' sign noted on exam, no appreciated bluish discoloration, no erythema, no increased warmth, pain, swelling, tenderness, POST OP LEFT UPPER EXT AV FISTULA, HEALING WELL. Vital Signs: 15:36 BP 117 / 67; Pulse 79; Resp 18; Temp 98.0(O); Pulse Ox 100% on R/A; Weight 56.7 kg; ca1 Height 5 ft. 3 in. (160.02 cm); Pain 0/10; 16:39 BP 139 / 71; Pulse 70; Resp 18 S; Pulse Ox 100% on R/A; ca1 17:20 BP 122 / 58 Supine; Pulse 63; Resp 18; Pulse Ox 100% on R/A; tm3 17:20 BP 108 / 63 Standing; Pulse 81; Resp 18; Pulse Ox 100% on R/A; tm3 17:20 BP 109 / 57 Sitting; Pulse 70; Resp 18; Pulse Ox 100% on R/A; tm3 18:38 BP 130 / 57; Pulse 74; Resp 16 S; Pulse Ox 100% on R/A; ca1 19:00 BP 127 / 69; Pulse 69; Resp 16; Pulse Ox 100% on R/A; lc1 19:30 BP 134 / 57; Pulse 66; Resp 16; Temp 98; Pulse Ox 100% ; lc1 15:36 Body Mass Index 22.14 (56.70 kg, 160.02 cm) ca1 MDM: 15:45 Patient medically screened. [facility] 16:55 Data reviewed: vital signs, nurses notes, lab test result(s), EKG, radiologic studies, [facility] CT scan, plain films. 01/27 15:40 Order name: Basic Metabolic Panel; Complete Time: 17:38 [facility] 01/27 15:40 Order name: CBC with Diff; Complete Time: 17:00 [facility] 01/27 15:40 Order name: LFT's; Complete Time: 17:38 [facility] 01/27 15:40 Order name: Magnesium; Complete Time: 17:38 [facility] 01/27 15:40 Order name: NT PRO-BNP; Complete Time: 17:38 [facility] 01/27 15:40 Order name: PT-INR; Complete Time: 17:00 [facility] 01/27 15:40 Order name: Troponin (emerg Dept Use Only); Complete Time: 17:38 [facility] 01/27 15:40 Order name: XRAY Chest (1 view); Complete Time: 17:00 [facility] 01/27 15:40 Order name: Urine Culture [facility] 01/27 15:40 Order name: CT Head Brain wo Cont; Complete Time: 17:00 [facility] 01/27 15:40 Order name: Lipase; Complete Time: 17:38 [facility] 01/27 17:03 Order name: Urine Dipstick--Ancillary (enter results); Complete Time: 17:38 01/27 15:40 Order name: EKG; Complete Time: 15:45 [facility] 01/27 15:40 Order name: Cardiac monitoring; Complete Time: 15:57 [facility] 01/27 15:40 Order name: EKG - Nurse/Tech; Complete Time: 15:57 [facility] 01/27 15:40 Order name: IV Saline Lock; Complete Time: 16:44 [facility] 01/27 15:40 Order name: Labs collected and sent; Complete Time: 16:44 [facility] 01/27 15:40 Order name: O2 Per Protocol; Complete Time: 15:57 [facility] 01/27 15:40 Order name: O2 Sat Monitoring; Complete Time: 15:57 [facility] 01/27 15:40 Order name: Urine Dipstick-Ancillary (obtain specimen); Complete Time: 16:58 [facility] 01/27 17:01 Order name: Orthostatics; Complete Time: 17:58 [facility] Administered Medications: 15:45 Not Given (Duplicate Order): NS 0.9% 250 ml IV at bolus once [facility] 16:39 Drug: NS 0.9% 1000 ml Route: IV; Rate: 75 ml/hr; Site: right forearm; ca1 18:38 Follow up: IV Status: Infusion continued upon admission ca1 Disposition: 01/27/19 17:40 Hospitalization ordered by Sarah Guerrero for Inpatient Admission. Preliminary diagnosis are Hypotension, Hypokalemia, End stage renal disease, Anemia, unspecified, Syncope and collapse, Cardiomegaly, Unspecified combined systolic (congestive) and diastolic (congestive) heart failure. - Bed requested for Telemetry/MedSurg (Inpatient). - Status is Inpatient Admission. lc1 - Condition is Fair. - Problem is new. - Symptoms have improved. UTI on Admission? No Signatures: Dispatcher [employer] EDMS Claudia Woodard Brayden Wagner MD MD cha Calhoun, Kristin 1 Elia Elise RN RN hj Ileana Ferreira RN RN ca1 Corrections: (The following items were deleted from the chart) 18:39 17:40 Hospitalization Ordered by Sarah Guerrero MD for Inpatient Admission. Preliminary bd diagnosis is Hypotension; Hypokalemia; End stage renal disease; Anemia, unspecified; Syncope and collapse; Cardiomegaly; Unspecified combined systolic (congestive) and diastolic (congestive) heart failure. Bed requested for Telemetry/MedSurg (Inpatient). Status is Inpatient Admission. Condition is Fair. Problem is new. Symptoms have improved. UTI on Admission? No. trevor 19:59 18:39 01/27/2019 17:40 Hospitalization Ordered by Sarah Guerrero MD for Inpatient lc1 Admission. Preliminary diagnosis is Hypotension; Hypokalemia; End stage renal disease; Anemia, unspecified; Syncope and collapse; Cardiomegaly; Unspecified combined systolic (congestive) and diastolic (congestive) heart failure. Bed requested for Telemetry/MedSurg (Inpatient). Status is Inpatient Admission. Condition is Fair. Problem is new. Symptoms have improved. UTI on Admission? No. bd
--- NOTE | 2019-01-27 17:42 | ER ---
Nurse's Notes [facility] Name: Alma Rosa Corral Age: 63 yrs Sex: Female : 1955 Arrival Date: 01/27/2019 Time: 15:31 Bed 28 Private MD: Pattie Riggins R Diagnosis: Hypotension;Hypokalemia;End stage renal disease;Anemia, unspecified;Syncope and collapse;Cardiomegaly;Unspecified combined systolic (congestive) and diastolic (congestive) heart failure Presentation: 01/27 15:34 Presenting complaint: states: she passed about 45 mins ago, took a BP- 90/52; hj hx dialysis (MWF). Transition of care: patient was not received from another setting of care. Onset of symptoms was January 27, 2019. Risk Assessment: Do you want to hurt yourself or someone else? Patient reports no desire to harm self or others. Initial Sepsis Screen: Does the patient meet any 2 criteria? Does the patient have a suspected source of infection? No. Patient's initial sepsis screen is negative. Care prior to arrival: None. 15:34 Method Of Arrival: Ambulatory 15:34 Acuity: LILIBETH 2 hj Historical: - Allergies: 15:35 amlodipine; hj - PMHx: 15:35 CVA; HD - MWF; Hypertension; hj - PSHx: 15:35 HD Fistula - Left FA; hj - Immunization history:: Adult Immunizations. - Social history:: Smoking status: Patient/guardian denies using tobacco. - Family history:: not pertinent. - Ebola Screening: : Patient negative for fever greater than or equal to 101.5 degrees Fahrenheit, and additional compatible Ebola Virus Disease symptoms Patient denies exposure to infectious person Patient denies travel to an Ebola-affected area in the 21 days before illness onset No symptoms or risks identified at this time. Screenin:45 Abuse screen: Denies threats or abuse. Denies injuries from another. Nutritional ca1 screening: On renal diet. Tuberculosis screening: No symptoms or risk factors identified. Fall Risk IV access (20 points). Ambulatory Aid- Crutches/Cane/Walker (15 pts). Gait- Weak (10 pts.). Total Chavarria Fall Scale indicates High Risk Score (45 or more points). Fall prevention measures have been instituted. Side Rails Up X 2 Frequent Obs/Assessments Occuring Family Present and informed to notify staff if the need to leave the bedside As available patient and family educated on Fall Prevention Program and Strategies. Assessment: 15:40 General: Appears in no apparent distress. ill, slender, Behavior is calm, cooperative, ca1 appropriate for age. Pain: Denies pain. Neuro: Level of Consciousness is awake, alert, obeys commands, Oriented to person, place, time, situation, Appropriate for age. Cardiovascular: Heart tones S1 S2 present Capillary refill < 3 seconds Patient's skin is warm and dry. Dialysis shunt: in the left arm, with palpable thrill, with auscultated bruit, with no erythema, with no edema, no bleeding noted. Respiratory: Airway is patent Respiratory effort is even, unlabored, Respiratory pattern is regular, symmetrical, Breath sounds are clear bilaterally. GI: Abdomen is flat, non-distended, Bowel sounds present X 4 quads. Abd is soft and non tender X 4 quads. : No signs and/or symptoms were reported regarding the genitourinary system. EENT: No deficits noted. No signs and/or symptoms were reported regarding the EENT system. Derm: Skin is intact, is healthy with good turgor, Skin is pink, warm \T\ dry. Musculoskeletal: Circulation, motion, and sensation intact. Capillary refill < 3 seconds. 16:34 Reassessment: Patient appears in no apparent distress at this time. Patient and/or ca1 family updated on plan of care and expected duration. Pain level reassessed. Patient is alert, oriented x 3, equal unlabored respirations, skin warm/dry/pink. 17:25 Reassessment: Patient appears in no apparent distress at this time. Patient and/or ca1 family updated on plan of care and expected duration. Pain level reassessed. Patient is alert, oriented x 3, equal unlabored respirations, skin warm/dry/pink. 18:36 Reassessment: Patient appears in no apparent distress at this time. Patient and/or ca1 family updated on plan of care and expected duration. Pain level reassessed. Patient is alert, oriented x 3, equal unlabored respirations, skin warm/dry/pink. Dr. Guerrero at bedside. Vital Signs: 15:36 BP 117 / 67; Pulse 79; Resp 18; Temp 98.0(O); Pulse Ox 100% on R/A; Weight 56.7 kg; ca1 Height 5 ft. 3 in. (160.02 cm); Pain 0/10; 16:39 BP 139 / 71; Pulse 70; Resp 18 S; Pulse Ox 100% on R/A; ca1 17:20 BP 122 / 58 Supine; Pulse 63; Resp 18; Pulse Ox 100% on R/A; tm3 17:20 BP 108 / 63 Standing; Pulse 81; Resp 18; Pulse Ox 100% on R/A; tm3 17:20 BP 109 / 57 Sitting; Pulse 70; Resp 18; Pulse Ox 100% on R/A; tm3 18:38 BP 130 / 57; Pulse 74; Resp 16 S; Pulse Ox 100% on R/A; ca1 19:00 BP 127 / 69; Pulse 69; Resp 16; Pulse Ox 100% on R/A; lc1 19:30 BP 134 / 57; Pulse 66; Resp 16; Temp 98; Pulse Ox 100% ; lc1 15:36 Body Mass Index 22.14 (56.70 kg, 160.02 cm) ca1 ED Course: 15:31 Patient arrived in ED. rg4 15:32 Pattie Riggins MD is Private Physician. rg4 15:35 Triage completed. hj 15:35 Arm band placed on right wrist. hj 15:39 Brayden Yoder MD is Attending Physician. trevor 15:41 Ileana Ferreira RN is Primary Nurse. ca1 15:45 Patient has correct armband on for positive identification. Placed in gown. Bed in low ca1 position. Call light in reach. Side rails up X2. satellite project site monitor on. Pulse ox on. NIBP on. Warm blanket given. 16:04 XRAY Chest (1 view) In Process Unspecified. EDMS 16:15 Missed attempt(s): 22 gauge in right hand. Bleeding controlled, band aid applied, ca1 catheter tip intact. 16:18 CT completed. Patient tolerated procedure well. Patient moved to CT. Patient moved back nj from CT. 16:20 CT Head Brain wo Cont In Process Unspecified. EDMS 16:32 Inserted saline lock: 24 gauge in right forearm, using aseptic technique. ss 17:39 Sarah Guerrero MD is Hospitalizing Provider. trevor 19:22 Report received from Day nurse, patient visited, resting in bed comfortably, denies any lc1 pain, family at bedside, informed of plan to admit to 410. 19:38 No provider procedures requiring assistance completed. Patient admitted, IV remains in lc1 place. Administered Medications: 15:45 Not Given (Duplicate Order): NS 0.9% 250 ml IV at bolus once trevor 16:39 Drug: NS 0.9% 1000 ml Route: IV; Rate: 75 ml/hr; Site: right forearm; ca1 18:38 Follow up: IV Status: Infusion continued upon admission ca1 Outcome: 17:40 Decision to Hospitalize by Provider. trevor 19:36 Condition: good 1 19:36 Instructed on the need for admit. 19:38 Admitted to Tele accompanied by tech, family with patient, via stretcher, room 410, lc1 Report called to Jaylene Li RN 19:59 Patient left the ED. [facility] Signatures: Dispatcher [employer] EDMS Anil Merritt tm3 Brayden Yoder MD MD cha Smirch, Shelby, RN RN Kristin Dumont 1 Elia Elise, Nivia Wade RN 4 Everton Camejo Cheryl, RN RN ca1 Corrections: (The following items were deleted from the chart) 15:38 15:34 Acuity: LILIBETH 3 hj hj 15:46 15:36 BP 75 / 44; Pulse 79bpm; Resp 18bpm; Pulse Ox 100% RA; Temp 98.0F Oral; 56.7 kg; ca1 Height 5 ft. 3 in.; BMI: 22.1; Pain 0/10; hj 16:58 16:56 Abuse screen: Denies threats or abuse. Denies injuries from another. ca1 ca1 16:58 16:56 Tuberculosis screening: No symptoms or risk factors identified. ca1 ca1 16:58 16:56 Nutritional screening: On renal diet, ca1 ca1 16:58 16:56 Fall Risk IV access (20 points). Ambulatory Aid- Crutches/Cane/Walker (15 pts). ca1 Gait- Weak (10 pts.). Total Chavarria Fall Scale indicates High Risk Score (45 or more points). Fall prevention measures have been instituted. Side Rails Up X 2 Frequent Obs/Assessments Occuring Family Present and informed to notify staff if the need to leave the bedside As available patient and family educated on Fall Prevention Program and Strategies. ca1
[2019-01-27] MEDS ORDERED: ONDANSETRON 4 MG/2 ML VIAL IV PRN (20:13)
[2019-01-27] MEDS ORDERED: ACETAMINOPHEN 500 MG TAB PO PRN (20:13)
[2019-01-27 20:51] VITALS: BMI 21.8
[2019-01-28 04:25] LABS: Absolute Lymphocytes (CBC) 0.8 K/uL (0.7-4.9); Basophils % 0.7 % (0-1.3); Hematocrit 25.8 % (36.0-45.0); Lymphocytes % 13.4 % (15.3-44.8); MPV 9.4 fL (7.6-11.3); RBC Red Blood Cell Count 2.89 M/uL (3.86-4.86)
[2019-01-28 04:33] LABS: Albumin 3.1 g/dL (3.4-5.0); Magnesium 2.4 mg/dL (1.8-2.4); Phosphorus 2.6 mg/dL (2.5-4.9); Potassium 3.5 mmol/L (3.5-5.1); Protein, Total 6.2 g/dL (6.4-8.2)
--- NOTE | 2019-01-28 04:33 | HP ---
Date of Admission: 01/27/2019 Chief Complaint: Near syncope. History Of Present Illness: Patient is a 63-year-old female with past medical history of hypertensio n, end-stage renal disease, on hemodialysis Saturday, Saturday, and Saturday, history of CVA with right- sided weakness, comes in with a near syncopal episode after getting up. Patient apparently was in a part of the house that was under construction with no CHANG. Patient did not fall as her caugh t her, episode lasted less than 10 seconds. No seizure-type activity. Patient was found to have low blood pressure 90 systolic, which is low for her symptoms are constant, moderate, progressively wors ening. Therefore she was brought into the ER. She denied any nausea, vomiting, fever, chills, or ch est pain. Patient has had decreased appetite recently and has not stayed hydrated according to the h usband. In the ER, and blood pressure was as low as 70s systolic, improved with some IV fluids. Wor kup revealed a troponin of 0.06, BNP was 7100. Chest x-ray showed some mild fluid overload. Potassi um was 3.4. CT scan of the head did not show any acute changes. UA showed negative nitrite, trace l eukocyte esterase. Patient was then referred for admission. Past Medical History: End-stage renal disease, on hemodialysis, hypertension, history of CVA with ri ght-sided weakness. Surgical History: Tunneled dialysis catheter. The patient also has left AV fistula with recent revi jessica. Allergies: TO AMLODIPINE. Medications: List reviewed. Social History: Patient denies any tobacco use, alcohol use, or illicit drug use. Patient lives at home with family. Independent in her activities of daily living. Family History: No history of premature coronary artery disease. Review of Systems: Ten-point system reviewed, negative except as per HPI. Physical Examination: Vital Signs: Blood pressure 117/67, pulse 79, respirations 18, temperature 98, O2 of 100% on room ai r. General: Awake, alert, and oriented x3, in some mild distress. HEENT: Normocephalic, atraumatic. PERRLA, EOMI. Dry mucous membranes. Oropharynx is clear. Conju nctivae anicteric. Neck: Supple. No JVD. Trachea midline. CV: S1, S2. Regular rate and rhythm. Peripheral pulses present. Respiratory: Diminished breath sounds. No wheezing or stridor. No use of accessory muscles. Gastrointestinal: Abdomen is soft, nontender, nondistended. Positive bowel sounds. No guarding or rigidity. Extremities: No clubbing, cyanosis, or edema. No calf tenderness. Neuro: Cranial nerves 2 through 12 intact grossly. The patient has mild right-sided weakness. Spee ch is normal. No facial asymmetry Skin: No rashes, normal skin turgor. Patient has fuad in the AV fistula graft on the left arm an d stitches in the upper chest, neck area from the tunneled catheter. Psych: Mood is somewhat anxious. Affect is congruent with mood. Insight and judgment are good. Laboratory Data: Sodium 136, potassium 3.4, chloride 102, CO2 of 27, BUN 13, creatinine 4.21, glucos e 109, calcium 9.1, magnesium 2.5. Troponin 0.06 BNP 7101. INR 1.03. WBC 6.2, H and H 9.5 and 29.4 , platelets 266. UA negative nitrite, trace leukocyte esterase. Imaging Studies: CT scan shows no acute cortical based infarction identified. No hemorrhage or mass lesion. Patient is prominent for age white matter chronic ischemic change, as well as old infarctio ns in each lentiform nucleus. Chest x-ray personally reviewed shows no focal mass or consolidation. Cardiomegaly present with mild vascular engorgement and interstitial prominence, likely mild overloa d. Assessment: A 63-year-old female with: 1.Near syncopal episode, likely related to hypotension, possible orthostatic hypotension from patien t is to be dialyzed tomorrow. Patients blood pressure is improved with some IV fluid hydration. We will continue to monitor, placed on fall precautions. 2.Doubt any sort of seizure activity. This is witnessed. No arrhythmia, likely from dehydration. 3.End-stage renal disease, on hemodialysis. We will continue as scheduled. We will consult Nephrol ogy. 4.Hypokalemia. We will replace and monitor. 5.Elevated troponin level likely related to demand mismatch from acute hypertension and her end-stag e renal disease. 6.Essential hypertension, currently hypotensive. We will hold blood pressure medications for now. 7.History of cerebrovascular accident with right-sided weakness, stable. We will resume home medica tions as appropriate. 8.Deep venous thrombosis prophylaxis with Lovenox. Plan: Admit patient to Med-Surg, place as observation. /CHINTAN Voice ID: [id number]
--- NOTE | 2019-01-28 07:11 | EKG ---
Test Date: 2019-01-27 Test Time: 15:51:19 Director Hris: CAMILO MEASUREMENT RESULTS: Intervals: Rate: 71 GA: 142 QRSD: 88 QT: 420 QTc: 456 [place]: P: 119 GA: 142 QRS: 61 T: 63 INTERPRETIVE STATEMENTS: Normal sinus rhythm Moderate voltage criteria for LVH, may be normal variant Early repolarization Borderline ECG No previous ECG available for comparison Electronically Signed On 01-28-19 07:11:26 CDT by Shaka Brannon
[2019-01-28] MEDS ORDERED: PNEUMOCOCCAL VACCINE 0.5 ML IMVAC ONE (08:00)
[2019-01-28] MEDS ORDERED: ENOXAPARIN 30 MG/0.3 ML SQ SCH ×2 (09:00)
[2019-01-28] MEDS: HEPARIN 5000 UNIT/ML 1 ML VIAL SQ SCH ×2 (09:46→21:55)
[2019-01-28] MEDS ORDERED: SODIUM CHLORIDE 0.9% 10ML INJ IV PRN (10:02)
[2019-01-28] MEDS: PANTOPRAZOLE 40 MG INJ IVP SCH (10:19)
[2019-01-28] MEDS ORDERED: CODEINE 30MG/APAP 300MG TAB PO PRN (10:36)
[2019-01-28] MEDS ORDERED: NA CHLORIDE 0.9% 500 ML IV ONE (10:41)
[2019-01-28] MEDS ORDERED: LACTULOSE 20 GM/30 ML UCUP PO PRN (11:46)
--- NOTE | 2019-01-28 13:01 | RAD REPORT ---
EXAM DESCRIPTION: RAD - Barium Swallow Modified - 01/28/2019 12:36 pm CLINICAL HISTORY: Difficulty swallowing COMPARISON: None. TECHNIQUE: The patient was given liquid, semi-solid and solid forms of barium. Lateral view fluorosc opic imaging was performed in conjunction with speech pathology service. FINDINGS: Cineloop acquisitions: 19 Fluoro time: 2 minutes 35 seconds Laryngeal penetration: not cleared with thin, nectar. Pharyngeal residue: Pyriform - severe with nectar resulting in deep penetration after the swallow lik allen to be aspirated by way of gravity, required 4 swallows to reduce but not fully cleared. Osteophytes, prominent cricopharyngeus IMPRESSION: Normal modified barium swallow.
[2019-01-28] MEDS: CLONIDINE HCL 0.3 MG TAB PO SCH ×2 (14:00→21:59)
[2019-01-28] MEDS: HYDRALAZINE HCL 25 MG TABLET PO SCH ×2 (14:00→22:00)
--- NOTE | 2019-01-28 14:31 | CON ---
Date of Consultation: 01/28/2019 Reason For Consultation: Elevated BUN and creatinine, electrolyte imbalance, hypotension. History Of Present Illness: This is a pleasant 63-year-old black female, well known to me from the [facility] with significant past medical history of end-stage renal disease, recently started on dialysis through [facility] because her AV fistula was not mature, CVA with right-sided weakness, hypertension, hyperlipidemia, apparently patient was in her regular state of health except she been complaining fro m constipation in the last 2 weeks. Patient had ER visit over the weekend. At that time, they used enema, felt slightly better. Patient is still complaining from some nausea without real vomiting jus t spitting thick stuff. Patient apparently was sitting with her on the construction site [facility], then her tried to place her back to the home. When she stood up, she had syncope, n o fall, patient lost conscious for a few seconds and no jerk movement, no tongue bite. Patient check ed her blood pressure. Blood pressure was low down to the 90. Repeated blood pressure is still low. For that reason, patient was directed to go to the emergency room. In the emergency room, a primar y cardiac workup was negative. Patient was admitted for further evaluation. Patient is due for dialysis today. Her lab shows hypokalemia. Past Medical History: 1.End-stage renal disease, on hemodialysis, Saturday, Saturday, Saturday through [facility]. 2.Hypertension. 3.Hyperlipidemia. 4.CVA with right-sided weakness. Past Surgical History: Include PermCath placement, AV fistula placement and revision. Allergies: AMLODIPINE. Social History: Denies smoking. Denies drinking. Denies drugs abuse. Family History: Positive for hypertension and coronary artery disease. Review of Systems: Head and Neck: No red eye. No ear pain. GI: Has nausea, has vomiting. Has constipation. : No polyuria. No dysuria. No hematuria. MATERIAL CARRIER: No vaginal discharge. Respiratory: No shortness of breath. Cardiovascular: Has syncopal episode. No chest pain. Endocrine: No polydipsia. Skin: No rash. Neuro: Has right-sided weakness. Has syncopal. Musculoskeletal: Generalized fatigue. Physical Examination: General: When I saw the patient, the patient lying in bed, comfortable, start eating, tolerating her diet. Vital Signs: Blood pressure of 170/73, pulse of 80. Chest: Clear to auscultation. Heart: S1, S2. Regular. Systolic murmur. Abdomen: Soft. Nontender. Extremities: No edema. Neurologic: Alert. Right-sided weakness. Laboratory Data: Chest x-ray, mild congestion bilateral. Sodium 137, potassium 3.5, bicarb 27, BUN 14, creatinine 4, GFR of 13, calcium 8.9, phosphorus 2.6. WBC 5.6, hemoglobin and hematocrit 8.2/25. 8, platelets 225. Medications: Current medication the patient on include heparin, atorvastatin, Tylenol, pantoprazole, levothyroxine, docusate, codeine, Zemplar. Assessment And Plan: 1.End-stage renal disease, normal volume with hypokalemia. I am going to be dialyzing the patient w ithout any ultrafiltration and we will dialyze the patient on 4K bath and we will monitor the patient . 2.Hypokalemia. Patient is going to be dialyzed on normal potassium bath. 3.Anemia of chronic kidney disease. Continue Epogen. 4.Gastroenteritis with nausea and vomiting with constipation and stool impaction. I am going to rep eat abdominal x-ray. We will place the patient on lactulose. Continue docusate for the time being. 5.Gout. Continue current treatment. 6.Dehydration. I will start the patient on IV fluid and we will monitor. 7.Hypertension. Given the incident of low blood pressure, we will hold on blood pressure medication for the time being. Thank you, Dr. Guerrero, for allowing us to participate in the care of your patient. ARASH Voice ID: [id number] Report ID: [id number]
--- NOTE | 2019-01-28 17:45 | PN ---
Date of Progress Note: 01/28/2019 Subjective: Patient is seen and examined, chart reviewed and case discussed with RN, speech therapmerari t, and Dr. Gibbons with Nephrology. Patient is still complaining of some abdominal pain, nausea, bu t no vomiting. She also is wanting to eat. I explained to her that she is n.p.o. for her modified b arium swallow study due to dysphagia. Patient's blood pressure is improved. Will be going for dialy sis later today. Medications: List reviewed. Physical Examination: Vital Signs: Temperature 97, heart rate 80, blood pressure 170/73, respirations 15, O2 100% on room air. General: Awake, alert, oriented x3. Frail female, in some mild distress due to pain. CV: S1, S2. Regular rate and rhythm. Peripheral pulses present. Respiratory: Diminished breath sounds. Some crackles heard. No wheezing. Gastrointestinal: Abdome n is soft. Mild tenderness with deep palpation. No guarding, rebound. Positive bowel sounds. No d istention. Extremities: No clubbing, cyanosis, or edema. Neuro: Cranial nerves 2 through 12 intact grossly. No focal neurological deficit. Speech is normal . Laboratory Data: Sodium 137, potassium 3.5, chloride 104, CO2 of 27, BUN 14, creatinine 4.1, glucose 94, calcium 8.9, phosphorus 2.6, magnesium 2.4, albumin 3.1. WBC 5.6, H and H 8.2 and 25.8, platele ts 225, neutrophils 69%. Assessment And Plan: A 63-year-old female with: 1.Near-syncopal episode secondary to hypotension, possibly orthostatic hypotension or dehydration. We will continue with PT. Check orthostatic vital signs. Blood pressure is improving. 2.End-stage renal disease, on hemodialysis. Continue dialysis today. Appreciate Nephrology input. Continue to monitor electrolytes. 3.Hypokalemia. Replace and monitor. 4.Elevated troponin level, likely secondary to demand mismatch from hypertension and end-stage renal disease. No chest pain. 5.Essential hypertension. Blood pressure is trending up and now in the 170s. We will resume home m edications as appropriate. 6.Dysphagia secondary to history of cerebrovascular accident. Modified barium swallow study recomme nded by speech therapist. Patient recommended to be on mechanically chopped and honey thickened liqu ids. Patient found to have prominent cricopharyngeus muscle and needs ENT evaluation. We will discu ss further with Dr. Robles. May be done as an outpatient. 7.History of cerebrovascular accident with right-sided weakness. 8.Deep venous thrombosis prophylaxis with Lovenox. Plan repeat chest x-ray in a.m. Patient was vol ume overloaded. Should improve with dialysis. 9.Abdominal pain, generalized with nausea, may be secondary to constipation. We will obtain abdomin al x-ray. Continue lactulose. 10.Hypothyroidism. Continue Synthroid. Plan: Likely discharge in a.m. once condition is improved. /CHINTAN Voice ID: [id number] Report ID: [id number]
[2019-01-28] MEDS ORDERED: ATORVASTATIN 40 MG TAB PO SCH (21:00)
[2019-01-28] MEDS: DOCUSATE NA/SENNA CONC 1 TAB PO SCH (21:57)
[2019-01-29 04:25] LABS: Absolute Lymphocytes (CBC) 0.7 K/uL (0.7-4.9); Basophils % 1.2 % (0-1.3); Hematocrit 27.4 % (36.0-45.0); Lymphocytes % 10.4 % (15.3-44.8); RBC Red Blood Cell Count 3.06 M/uL (3.86-4.86)
[2019-01-29 04:53] LABS: Albumin 3.1 g/dL (3.4-5.0); Bilirubin Total 1.2 mg/dL (0.2-1.0); Potassium 3.8 mmol/L (3.5-5.1); Protein, Total 6.4 g/dL (6.4-8.2); Thyroid Stimulating Hormone 1.48 uIU/mL (0.360-3.740)
[2019-01-29 05:42] VITALS: TEMP 98.5
[2019-01-29] MEDS ORDERED: LEVOTHYROXINE SOD 0.05 MG TABLET PO SCH (06:30)
[2019-01-29] MEDS: PANTOPRAZOLE 40 MG INJ IVP SCH (07:46)
[2019-01-29] MEDS: DOCUSATE NA/SENNA CONC 1 TAB PO SCH (07:46)
[2019-01-29] MEDS: HEPARIN 5000 UNIT/ML 1 ML VIAL SQ SCH (07:46)
[2019-01-29] MEDS: HYDRALAZINE HCL 25 MG TABLET PO SCH (08:16)
[2019-01-29] MEDS: CLONIDINE HCL 0.3 MG TAB PO SCH (08:16)
[2019-01-29 08:57] VITALS: O2SAT 98
[2019-01-29] MEDS ORDERED: LIOTHYRONINE SOD 5 MCG TAB PO SCH (09:00)
[2019-01-29] MEDS ORDERED: FERROUS GLUCONATE 324 MG TAB PO SCH (09:00)
[2019-01-29] MEDS ORDERED: METOPROLOL XL 25 MG TAB PO SCH (09:00)
[2019-01-29] MEDS ORDERED: ALLOPURINOL 100 MG TAB PO SCH (09:00)
[2019-01-29] MEDS ORDERED: PARICALCITOL 1 MCG CAP PO SCH (09:00)
[2019-01-29] MEDS ORDERED: ASPIRIN EC 81 MG TAB PO SCH (09:00)
--- NOTE | 2019-01-29 09:31 | RAD REPORT ---
EXAM DESCRIPTION: [place] Single View01/29/2019 9:21 am CLINICAL HISTORY: Shortness of breath COMPARISON: January 2019 FINDINGS: The lungs appear clear of acute infiltrate. The heart is mildly to moderately enlarged. A central venous catheter remains in place IMPRESSION: No acute abnormalities displayed
[2019-01-29] MEDS ORDERED: HYDRALAZINE HCL 25 MG TABLET PO SCH (11:43)
--- NOTE | 2019-01-29 14:17 | PN ---
Date of Progress Note: 01/29/2019 Subjective: Patient doing better. No nausea. No vomiting. Tolerating the dialysis. Little bit of crampy even though we did not remove any fluid. Patient is feeling better. Objective: Vital Signs: Blood pressure of 98/50, pulse of 81. Chest: Clear to auscultation. Heart: S1, S2 regular. Abdomen: Soft, nontender. Extremities: No edema. Neuro: Has right-sided weakness. Laboratory Data: Hemoglobin and hematocrit 8.8/27.4. Sodium 140, potassium 3.8, bicarb 27, BUN 8, c reatinine 2.8, GFR of 20. This is post dialysis. Current Medications: The patient on is include clonidine 0.2 t.i.d., hydralazine 100 t.i.d., levothy roxine, metoprolol, Zofran, pantoprazole, Zemplar. Assessment And Plan: 1.End-stage renal disease. We will continue the patient on dialysis. I am going to be holding on t he ultrafiltration on the dialysis to avoid any low blood pressure. 2.Hypertension. Decrease clonidine to 0.2 b.i.d. and put her at parameter not to take it if her blo od pressure is less than 140 and we will follow up. 3.Presyncopal. All the workup has been negative. We will follow up with the patient. 4.Constipation, has been resolved. Patient is cleared from the renal standpoint for discharge plann ing. ANTOINE Voice ID: [id number] Report ID: [id number]
[2019-01-29 16:50] VITALS: BP 99/55
[2019-01-29] MEDS ORDERED: CLONIDINE HCL 0.3 MG TAB PO SCH (21:00)
--- NOTE | 2019-01-30 06:23 | DS ---
Date of Discharge: 01/29/2019 Consultants: Pedro Mina M.D. with Nephrology. Procedures: Modified barium swallow study with oropharyngeal dysphagia. Admitting Diagnoses: 1.Near syncopal episode related to hypotension. 2.End-stage renal disease, on hemodialysis. 3.Hypokalemia. 4.Elevated troponin level. 5.Essential hypertension, currently hypotensive. 6.History of cerebrovascular accident with right-sided weakness. Discharge Diagnoses: 1.Near syncopal episode secondary to hypotension. 2.End-stage renal disease, on hemodialysis. 3.Hypokalemia, corrected. 4.Elevated troponin level. 5.Essential hypertension. 6.Dysphagia oropharyngeal, now on modified diet. 7.History of cerebrovascular accident with right-sided weakness. 8.Abdominal pain, generalized with nausea. 9.Constipation. 10.Hypothyroidism. Hospital Course: Patient is a 63-year-old female with past medical history of hypertension, end-stag e renal disease, on hemodialysis, history of CVA, comes in with a near syncopal episode. Patient was admitted for further evaluation. Her near syncopal episode was thought to be due to dehydration and hypotension. Patient's blood pressure was in the 70s systolic. Patient's blood pressure medication s were held. She was given an IV fluids. Her x-ray did show some fluid overload. She was dialyzed as well. There was no seizure-type activity no arrhythmia found. Her electrolytes were corrected. She did have some mild elevation of her troponin, which was likely due to demand mismatch from the ac sen hypotension. She did not complain of any chest pain. Patient was seen by Nephrology, Dr. Arnoldo leo and dialysis was continued as scheduled. Patient's blood pressure improved. She was then placed back on her medications. Patient had also complained of dysphagia and choking, as well as abdominal pain and constipation. Patient was given lactulose, had bowel movement, and had improvement in her s ymptoms. With regard to her dysphagia, speech therapy evaluation was conducted and modified barium s wallow study was ordered. Patient was found to have oropharyngeal dysphagia. She was placed on [facility] anically chopped diet and honey thickened liquids. This is likely due to her history of CVA. Patimyron t was found to have large cricopharyngeus muscle. Case was discussed with Dr. Robles, who recommend ed outpatient followup. Patient was then cleared for discharge. She was able to ambulate without di fficulty. No further hypotensive episodes or near syncopal episodes. Medications: As per medication reconciliation list. Followup: Follow up with primary care physician in 2-3 days. Follow up with jewelry salesperson, Dr. Geovanni dempsey in 2 weeks. Follow up with Dr. Travis TRAVIS in 2 weeks. Return to ER for worsening condition. Diet: Renal. Activity: As tolerated. Physical Examination: General: Awake, alert, oriented x3. No acute distress. CV: S1, S2. No murmurs. Respiratory: Moving air well bilaterally. No wheezing. Gastrointestinal: Abdomen is soft, nontender, nondistended. Positive bowel sounds. Extremities: No clubbing, cyanosis, or edema. Neurologic: Nonfocal. SA/MODL Voice ID: [id number] Report ID: [id number]
== END 2019-01-29 12:17 | disposition home or self-care (01) ==
LOC: ER 15:26 → ERHOLD 18:16 → 4TH 19:47
PROVIDERS: ADMIT Family Medicine; ATTEND Family Medicine
DX: R55 Syncope and collapse (principal); I95.9 Hypotension, unspecified; E87.6 Hypokalemia; K52.9 Noninfective gastroenteritis and colitis, unspecified; E86.0 Dehydration; I69.391 Dysphagia following cerebral infarction; R13.12 Dysphagia, oropharyngeal phase; I12.0 Hypertensive chronic kidney disease with stage 5 chronic kidney disease or end stage renal disease; N18.6 End stage renal disease; I69.351 Hemiplegia and hemiparesis following cerebral infarction affecting right dominant side; E78.5 Hyperlipidemia, unspecified; M10.9 Gout, unspecified; K59.00 Constipation, unspecified; Z99.2 Dependence on renal dialysis
CPT/HCPCS: 96361; 93005; 87088; 85025 ×3; 87086; 80048; 36415 ×2; 83735 ×2; 84100; 85610; 80076; 80069; 84443; 87077; 87186; 81003; 84484; 83690; 80053 ×2; 83880; 70450; 71045 ×2; 74230; 90935; 90471; 90670; 92610; 92611; 94760 ×4; 96360; 99285; J1644 ×4; C9113 ×2; J7030; G0378 ×2

== ENCOUNTER 2019-02-16 23:18 | Emergency (ER) | payer OTHER ==
--- OUTSIDE RECORDS SUMMARY | 2019-02-16 23:22 | XMS REPORT ---
:1955 Author Organization [facility] Address [address] [place] [address] Care Team Providers Name Role Phone Unavailable [...]
--- OUTSIDE RECORDS SUMMARY | 2019-02-16 23:22 | XMS REPORT | CCD ---
:1955 Author Organization [facility] Care Team Providers Name Role Phone Marlene [...]
--- OUTSIDE RECORDS SUMMARY | 2019-02-16 23:22 | XMS REPORT | CCD ---
:1955 Author Organization [facility] Care Team Providers Name Role Phone [...]
--- OUTSIDE RECORDS SUMMARY | 2019-02-16 23:22 | XMS REPORT | CCD ---
:1955 Author Organization [facility] Outpatient Imaging [facility] Team Providers Name Role Phone Krystina Garza Consulting Provider Problem List Condition Effective Dates Status CA - Cancer of colon Active Cholesterol Active H/O: stroke Active HT - Hypertension Active
--- OUTSIDE RECORDS SUMMARY | 2019-02-16 23:22 | XMS REPORT | CCD ---
:1955 Author Organization [facility] Outpatient Imaging [place] Care Team Providers Name Role Phone Krystina Garza Consulting Provider Problem List Condition Effective Dates Status CA - Cancer of colon Active Cholesterol Active H/O: stroke Active HT - Hypertension Active
--- OUTSIDE RECORDS SUMMARY | 2019-02-16 23:22 | XMS REPORT | Continuity of Care Document ---
:1955 Author Organization [email or web address] Information [employer] Care Team Providers Name Role Phone Factual Unavailable Unavailable Problems Problem Status Onset Classification Date Comments Source Date Reported UNK Active 01/16/20 [facility] CKD Active 01/16/20 [facility] [place] 620.2 - OVARIAN Active 04/08/20 [facility] [place] FOLLOW UP Active 03/12/[address] CANCER OF RECTAL Active 01/10/[address] COLON CANCER Active 12/27/[address] [place] - Cancer of Active Problem 11/08/2012 [facility], DAMIAN [place], OPIL[facility] Baez Cholesterol Active Problem 11/08/2012 [facility], DAMIAN [place], [facility] H/O: stroke Active Problem 11/08/2012 [facility], DAM[place], [facility] [place] HT - Hypertension Active Problem 11/08/2012 [facility], [place], [place] - Cancer of Active Problem 01/20/2019 [facility] Stroke Resolved Problem 01/20/2019 [facility] H/O: stroke Active Problem 01/20/2019 [facility] HT - Hypertension Active Problem 01/20/2019 [facility] Hyperlipidemia Resolved Problem 01/20/2019 [facility] HTN (Confirmed) Resolved Problem 01/20/2019 [facility] Kidney disease Resolved Problem 01/20/2019 [facility] Colon cancer Resolved Problem 01/20/2019 [facility] Medications Medication Details Route Status Patient Ordering Order Source Instructions Provider Date atorvastatin 40 40 mg=1 tab, Active 01/18[facility] mg oral tablet PO, Bedtime, # 2019 [facility] 30 tab, 0 Refill(s) Aspirin 81 MG 81 mg=1 tab, Active 01/18/ Enteric Coated PO, Daily, # 90 2019 [facility] Tablet tab, 3 Refill(s) Ondansetron 4 MG 4 mg=1 tab, PO, Active 01/18[facility] Disintegrating BID, PRN Nausea 2019 [facility] Tablet [Zofran] and Vomiting, Dissolve tab under tongue, # 10 tab, 0 Refill(s) Acetaminophen 300 1 tab, PO, Q6H, Active MG / Codeine PRN Pain, X 7 2019 [facility] Phosphate 30 MG day, # 28 tab, Oral Tablet 0 Refill(s) [Tylenol with Codeine #3] Docusate Sodium 1 tab, PO, BID, Active 01/18/ 50 MG / X 10 day, # 20 2019 [facility] sennosides, [facility] tab, 0 8.6 MG Oral Refill(s) Tablet metoprolol 25 mg 25 mg=1 tab, Active oral tablet, PO, Daily, # 30 2019 [facility] extended release tab, 0 Refill(s) Clonidine 0.3 mg, 1 tab, No Longer Hydrochloride 0.3 Route: PO, Drug Active 2018 [facility] MG Oral Tablet form: TAB, TID, Dosing Weight 62.358, kg, Start date: 01/17/19 13:00:00 CDT, Duration: 30 day, Stop date: 02/16/19 9:00:00 CDT, 0Notes: (Same As: Catapres) metoprolol 25 mg, 1 tab, No Longer extended release Route: PO, Drug Active 2018 [facility] form: ERTAB, Daily, Start date: 01/17/19 12:00:00 CDT, Duration: 30 day, Stop date: 02/16/19 9:00:00 CDT, 0Notes: (Same as: Toprol XL) Do Not Crush Ondansetron 4 mg, 2 mL, Inactive Route: IVP2018 [facility] Drug form: INJ, ONCE, Dosing Weight 62.358, kg, Start date: 01/17/19 11:09:00 CDT, Stop date: 01/17/19 11:09:00 CDT, 0Notes: (Same as: Zofran) MEDICATION WASTE Product Size: 4 mg Product Wasted: ___ mg Reglan 5 mg, 1 mL, Inactive Route: IVP2018 [facility] Drug form: INJ, ONCE, Dosing Weight 62.358, kg, Start date: 01/17/19 10:31:00 CDT, Stop date: 01/17/19 10:31:00 CDT, 0Notes: (Same as: Reglan) Hydralazine 10 mg, 0.5 mL, No Longer Route: IVP, Active 2018 [facility] Drug form: INJ, Q4H, Dosing Weight 62.358, kg, PRN Hypertension, Start date: 01/17/19 10:31:00 CDT, Duration: 30 day, Stop date: 02/16/19 10:30:00 CDT, 0Notes: (Same as: Apresoline) Push over 5 minutes Allopurinol 100 mg, 1 tab, No Longer Route: PO, Drug Active 2018 [facility] form: TAB, Daily, Dosing Weight 62.358, kg, Start date: 01/17/19 9:00:00 CDT, Duration: 30 day, Stop date: 02/15/19 9:00:00 CDT, 0Notes: (Same as: Zyloprim) ferrous gluconate 256 mg, Route: No Longer PO, Drug form: Active 2018 [facility] TAB, Daily, Dosing Weight 62.358, kg, Start date: 01/17/19 9:00:00 CDT, Duration: 30 day, Stop date: 02/15/19 9:00:00 CDT Docusate Sodium 1 tab, Route: No Longer 50 MG / PO, Drug Form: [facility] 2018 [facility] sennosides, [facility] TAB, Dosing 8.6 MG Oral Weight 62.358, Tablet kg, BID, Start date: 01/17/19 9:00:00 CDT, Duration: 30 day, Stop date: 02/15/19 17:00:00 CDT, 0Notes: (Same as Senokot-S) Equiv. to Zoraida-Colace. ferrous sulfate 325 mg, 1 tab, No Longer Route: PO, Drug Active 2018 [facility] form: ECTAB, Daily, Start date: 01/17/19 9:00:00 CDT, Duration: 30 day, Stop date: 02/15/19 9:00:00 CDT, 0Notes: Give with food. "Do Not Crush" paricalcitol 1 microgram, 1 No Longer 0.001 MG Oral cap, Route: PO, Active 2019 [facility] Capsule Drug form: CAP, Daily, Dosing Weight 62.358, kg, Start date: 01/17/19 9:00:00 CDT, Duration: 30 day, Stop date: 02/15/19 9:00:00 CDT, 0Notes: (Same as: Zemplar) Nifedical XL 30 mg, 1 tab, No Longer Route: PO, Drug Active 2018 [facility] form: ERTAB, Daily, Dosing Weight 62.358, kg, Start date: 01/17/19 9:00:00 CDT, Duration: 30 day, Stop date: 02/15/19 9:00:00 CDT, 0Notes: (Same as: Adalat CC, Procardia XL) Give on empty stomach. Take 1 hour before or 2 hours after meal; "Avoid grapefruit and grapefruit juice". Do not crush Nephro-Flash Rx 1 tab, Route: No Longer PO, Drug Form: [facility] 2018 [facility] TAB, Dosing Weight 62.358, kg, Daily, Start date: 01/17/19 9:00:00 CDT, Duration: 30 day, Stop date: 02/15/19 9:00:00 CDT, 0Notes: (Same as: Nephro-Flash Rx and Diatx) Give with food. Triiodothyronine 5 microgram, 1 No Longer tab, Route: PO, 2018 [facility] Drug form: TAB, Q630AM, Dosing Weight 62.358, kg, Start date: 01/17/19 6:30:00 CDT, Duration: 30 day, Stop date: 02/15/19 6:30:00 CDT, 0Notes: (Same as: Cytomel) Thyroxine 50 microgram, 1 No Longer tab, Route: PO, 2018 [facility] Drug form: TAB, Q630AM, Dosing Weight 62.358, kg, Start date: 01/17/19 6:30:00 CDT, Duration: 30 day, Stop date: 02/15/19 6:30:00 CDT, 0Notes: Take 1 hour before or 2 hours after meal; Enteral feeds may interefere with the absorption of this medication.(Juan e as:Levothroid, Synthroid) heparin 5,000 unit, 1 No Longer mL, Route: Active 2019 [facility] SUB-Q, Drug form: INJ, Q12H, Dosing Weight 62.358, kg, Start date: 01/17/19 1:00:00 CDT, Stop date: 02/15/19 13:00:00 CDT, 0Notes: porcine heparin atorvastatin 40 mg, 1 tab, No Longer Route: PO, Drug Active 2018 [facility] form: TAB, Bedtime, Dosing Weight 62.358, kg, Start date: 01/16/19 21:00:00 CDT, Duration: 30 day, Stop date: 02/14/19 21:00:00 CDT, 0Notes: (Same as: Lipitor) Acetaminophen 325 2 tab, Route: No Longer MG / Hydrocodone PO, Drug Form: Active 2018 [facility] Bitartrate 5 MG TAB, Dosing Oral Tablet Weight 62.358, [[place] 5/325] kg, Q4H, PRN Pain Score 4-6, STAT, Start date: 01/16/19 19:40:00 CDT, Duration: 30 day, Stop date: 02/15/19 19:39:00 CDT, 0Notes: (Same as: [place] 325/5) Do not exceed 4gm/day of acetaminophen. Acetaminophen 325 2 tab, Route: Inactive MG / Hydrocodone PO, Dosing 2018 [facility] Bitartrate 5 MG Weight 62.358, Oral Tablet kg, Q4H, STAT, [[place] 5/325] Start date: 01/16/19 19:36:00 CDT, Duration: 30 day, Stop date: 02/15/19 16:00:00 CDT Milk of Magnesia 30 ml, Route: No Longer PO, Drug Form: Active 2019 [facility] SUSP, Dosing Weight 62.358, kg, ONCE, PRN as needed for constipation, Start date: 01/16/19 18:23:00 CDT, 0Notes: (Same as: Milk of Magnesia, MOM) Aspirin 81 MG 81 mg, 1 tab, No Longer Chewable Tablet Route: PO, Drug Active 2018 [facility] form: CHEWTAB, Daily, Dosing Weight 62.358, kg, Start date: 01/16/19 17:30:00 CDT, Duration: 30 day, Stop date: 02/15/19 9:00:00 CDT, 0Notes: Take with food. Zofran 4 mg, 2 mL, No Longer Route: IVP, 2018 [facility] Drug form: INJ, Q8H, Dosing Weight 62.358, kg, PRN Nausea, Start date: 01/16/19 17:24:00 CDT, Duration: 30 day, Stop date: 02/15/19 17:23:00 CDT, 0Notes: (Same as: Zofran) MEDICATION WASTE Product Size: 4 mg Product Wasted: ___ mg Lactulose 667 10 gm, 15 ml, No Longer MG/ML Oral Route: PO, Drug 2018 [facility] Solution form: SYRP, TID, Dosing Weight 62.358, kg, PRN Constipation, Start date: 01/16/19 17:23:00 CDT, Duration: 30 day, Stop date: 02/15/19 17:22:00 CDT, 0Notes: (Same as:Chronulac) Morphine 2 mg, 1 mL, No Longer Route: IVP, 2018 [facility] Drug form: INJ, Q4H, Dosing Weight 62.358, kg, PRN Pain Score 7-10, Start date: 01/16/19 17:23:00 CDT, Duration: 30 day, Stop date: 02/15/19 17:22:00 CDT, 0Notes: (Same as:MORPhine Sulfate) Metoprolol 2.5 mg, 2.5 mL, No Longer Route: IVP, [facility] 2018 [facility] Drug form: INJ, Q4H, Dosing Weight 62.358, kg, PRN Arrhythmias, Start date: 01/16/19 17:16:00 CDT, Duration: 30 day, Stop date: 02/15/19 17:15:00 CDT, 0Notes: (Same as: Lopressor) Push over 2 minutes Epogen 8,000 unit, 2 No Longer mL, Route: 2018 [facility] SUB-Q, Drug form: INJ, Q-M-W-F, Dosing [...] Longer Hydrochloride 100 Route: PO, Drug Active 2019 [facility] MG Oral Tablet form: TAB, TID, Dosing Weight 62.358, kg, Start date: 01/16/19 17:00:00 CDT, Duration: 30 day, Stop date: 02/15/19 13:00:00 CDT, 0Notes: (Same as: Apresoline) May interfere w/enteral feedings Take With Food Promethazine 6.25 mg, Route: Inactive IVPB, ONCE, 2018 [facility] Dosing Weight 62.358, kg, PRN Nausea & Vomiting, Start date: 01/16/19 12:59:00 CDT Naloxone 0.1 mg, Route: Inactive SUB-Q, Q6H, 2019 [facility] Dosing Weight 62.358, kg, PRN Itching, Start date: 01/16/19 12:59:00 CDT, Duration: 30 day, Stop date: 02/15/19 12:58:00 CDT Meperidine 12.5 mg, Route: Inactive IVP, Q30Min, 2018 [facility] Dosing Weight 62.358, kg, PRN Other -See Comment, For shivering, Start date: 01/16/19 12:59:00 CDT, Duration: 2 doses or times, Stop date: Limited # of times Ondansetron 4 mg, Route: Inactive IVP, ONCE, 2018 [facility] Dosing Weight 62.358, kg, PRN Nausea & Vomiting, Start date: 01/16/19 12:59:00 CDT Flumazenil 0.2 mg, Route: Inactive IVP, PRN, 2019 [facility] Dosing Weight 62.358, kg, PRN Benzodiazepine Reversal, Initial dose, Start date: 01/16/19 12:59:00 CDT, Duration: 30 day, Stop date: 02/15/19 12:58:00 CDT Fentanyl 50 microgram, Inactive Route: IVP, 2019 [facility] Q5Min, Dosing Weight 62.358, kg, PRN Pain Score 7-10, Priority: Routine, Start date: 01/16/19 12:59:00 CDT, Duration: 2 doses or times, Stop date: Limited # of times Hydromorphone 0.5 mg, Route: Inactive IVP, Q5Min, 2018 [facility] Dosing Weight 62.358, kg, PRN Pain Score 7-10, Start date: 01/16/19 12:59:00 CDT, Duration: 4 doses or times, Stop date: Limited # of times Diphenhydramine 12.5 mg, Route: Inactive IVP, Drug form: 2019 [facility] INJ, Q6H, Dosing Weight 62.358, kg, PRN Itching, Start date: 01/16/19 12:59:00 CDT, Duration: 30 day, Stop date: 02/15/19 12:58:00 CDT Albuterol 0.83 2.49 mg, Route: Inactive MG/ML Inhalant NEB, Q20Min, 2018 [facility] Solution Dosing Weight 62.358, kg, PRN Wheezing, Priority: Routine, Start date: 01/16/19 12:59:00 CDT, Duration: 30 day, Stop date: 02/15/19 12:58:00 CDT Acetaminophen 1,000 mg, Inactive Route: PO, Drug 2018 [facility] form: TAB, ONCE, Dosing Weight 62.358, kg, PRN Pain Score 1-3, Start date: 01/16/19 12:59:00 CDT Hydralazine 10 mg, Route: Inactive IVP, Q20Min, 2018 [facility] Dosing Weight 62.358, kg, PRN Elevated BP, Start date: 01/16/19 12:59:00 CDT, Duration: 2 doses or times, Stop date: Limited # of times Labetalol 10 mg, Route: Inactive IVP, Q5Min, 2018 [facility] Dosing Weight 62.358, kg, PRN Elevated BP, Start date: 01/16/19 12:59:00 CDT, Duration: 5 doses or times, Stop date: Limited # of times esmolol (ANES) Route: IV, Drug Inactive form: [id number], Stop date: 01/16/19 12:45:00 CDT Dextrose 50% in Route: IV, Stop Inactive Water IV (ANES) date: 01/16/192018 12:45:00 CDT phenylephrine Route: IV, Drug Inactive 01/16/ MH (ANES) form: [id number], Stop date: 01/16/19 12:45:00 CDT EPINEPHrine Route: IV, Drug Inactive 01/16/ MH (ANES) form: [id number], Stop date: 01/16/19 12:43:00 CDT calcium chloride Route: IV, Drug Inactive 01/16/ MH (ANES) form: 2018, Stop date: 01/16/19 12:33:00 CDT propofol (ANES) Route: IV, Drug Inactive MH form: [id number], Stop date: 01/16/19 11:52:00 CDT Amidate (ANES) Route: IV, Drug Inactive form: [id number], Stop date: 01/16/19 11:52:00 CDT norepinephrine Route: IV, Drug Inactive 01/16/ MH (ANES) form: 2018, Stop date: 01/16/19 11:52:00 CDT lidocaine (ANES) Route: IV, Drug Inactive MH form: [id number], Stop date: 01/16/19 11:52:00 CDT ondansetron Route: IV, Drug Inactive 01/16/ MH (ANES) form: INJ2018, Stop date: 01/16/19 11:42:00 CDT ceFAZolin (ANES) Route: IV, Drug Inactive 01/16/ MH form: [id number], Stop date: 01/16/19 11:42:00 CDT fentaNYL (ANES) Route: IV, Drug Inactive MH form: [id number], Stop date: 01/16/19 11:37:00 CDT vancomycin (ANES) Route: IV, Drug Inactive 1000 mg form: INJ, 2018 [facility] Start date: 01/16/19 10:50:00 CDT, Stop date: 01/16/19 11:50:00 CDT Sodium Chloride Route: IV, Inactive 0.9% IV (ANES) Total Volume: 2018 [facility] 1000 mL 1,000, Start date: 01/16/19 10:46:00 CDT, Stop date: 01/16/19 11:46:00 CDT Insulin regular 5 unit, Route: Inactive IV, ONCE, 2018 [facility] Dosing Weight 62.358, kg, Start date: 01/16/19 10:40:00 CDT, Stop date: 01/16/19 10:40:00 CDT Dextrose 12.5 gm, Route: Inactive IVPB, ONCE, 2018 [facility] Dosing Weight 62.358, kg, Start date: 01/16/19 10:39:00 CDT, Stop date: 01/16/19 10:39:00 CDT Calcium Chloride 1,000 mL, Rate: Inactive 0.0014 MEQ/ML / 25 ml/hr, 2018 [facility] Potassium Infuse over: 40 Chloride 0.004 hr, Route: IV, MEQ/ML / Sodium Dosing Weight Chloride 0.103 62.358 kg, MEQ/ML / Sodium Total Volume: Lactate 0.028 1,000, Start MEQ/ML Injectable date: 01/16/19 Solution 8:46:00 CDT, Duration: 1 day, Stop date: 01/17/19 8:45:00 CDT, 1.68, m2, 0 Sodium Chloride 1,000 mL, Rate: Inactive 0.9% IV 1,000 mL 25 ml/hr, 2018 [facility] Infuse over: 40 hr, Route: IV, Dosing Weight 62.358 kg, Total Volume: 1,000, Start date: 01/16/19 8:46:00 CDT, Duration: 1 day, Stop date: 01/17/19 8:45:00 CDT, 1.68, m2, 0 Vitamin B12 monthly, 0 Active Refill(s) 2018 [facility] allopurinol 100 100 mg=1 tab, Active MH mg oral tablet PO, Daily, # 90 2019 tab, 1 Refill(s) Aspirin 81 MG 81 mg=1 tab, Active Chewable Tablet PO, Daily, tab, 2019 0 Refill(s) 24 HR Nifedipine 30 mg=1 tab, No Longer MH 30 MG Extended PO, Daily, # 30 Active 2019 [facility] Release Tablet tab, 0 [Nifedical] Refill(s) [...] Hydrochloride 100 PO, TID, # 90 2019 [facility] MG Oral Tablet tab, 3 Refill(s) atorvastatin 40 40 mg=1 tab, Active mg oral tablet PO, Bedtime, # 2019 30 tab, 0 Refill(s) Clonidine 0.3 mg=1 tab, Active Hydrochloride 0.3 PO, TID, # 60 2019 [facility] MG Oral Tablet tab, 1 Refill(s) Vancomycin 1 gm, Route: No Longer IVPB, PRE OP, Active 2019 [facility] Dosing Weight 81.136, kg, Start date: [...] 20 mL IV, PRE OP, Active 2018 [facility] Dosing Weight 81.136, kg, Start date: 01/15/19 13:00:00 CDT, Duration: 1 day, Stop date: 01/16/19 12:59:00 CDT, ABX Indication: Surgical Prophylaxis, 0Notes: (Same As: Sundar Lennon) MEDICATION WASTE Product Size: 1000 mg Product Wasted: ___ mg Allergies, Adverse Reactions, Alerts Substance Category Reaction Severity Reaction Status Date Comments Source type Reported amLODIPine Assertion Drug Active allergy [facility] Immunizations No Data Provided for This Section Results Order Name Results Value Reference Date Interpretation Comments Source Range CHEM PANEL eGFR 13 01/18 Result Comment: The [facility] eGFR is calculated using the CKD-EPI [...] Sodium Lvl 141 135 - 145 01/18 [facility] CHEM PANEL Creatinine 3.85 0.50 - 01/18 Lvl 1.40 [facility] CHEM PANEL Glucose Lvl 102 70 - 99 01/18 [facility] CHEM PANEL BUN 19 7 - 22 01/18 [facility] CHEM PANEL Calcium Lvl 8.6 8.5 - 10.5 01/18 [facility] CHEM PANEL Chloride Lvl 107 95 - 109 01/18 [facility] CHEM PANEL CO2 29 24 - 32 01/18 [facility] CHEM PANEL Potassium 3.7 3.5 - 5.1 01/18 Lvl [facility] CHEM PANEL AGAP 8.7 10.0 - 07/28 MH 20.0 /2018 [facility] HEMATOLOGY Segs 64.4 45.0 - 01/18 MH 75.0 /2018 [facility] HEMATOLOGY Eosinophils 3.7 0.0 - 4.0 01/18 [facility] HEMATOLOGY Monocytes 21.0 2.0 - 12.0 01/18 [facility] HEMATOLOGY Basophils 0.7 0.0 - 1.0 01/18 [facility] HEMATOLOGY Lymphocytes 10.2 20.0 - 01/18 MH 40.0 [facility] HEMATOLOGY Neutrophils 4.5 1.5 - 8.1 01/18 MH # /2018 [facility] HEMATOLOGY Lymphocytes 0.7 1.0 - 5.5 01/18 MH # /2018 [facility] HEMATOLOGY Eosinophils 0.3 0.0 - 0.5 01/18 [facility] Monocytes # 1.5 0.0 - 0.8 01/18 [facility] WBC 7.0 3.7 - 10.4 01/18 [facility] RBC 2.62 4.20 - 01/18 MH 5.40 /2018 [facility] Hgb 7.6 12.0 - 01/18 16.0 [facility] Hct 22.6 36.0 - 01/18 MH 48.0 [facility] MCV 86.4 80.0 - 01/18 98.0 /2018 [facility] MCHC 33.6 32.0 - 01/18 36.0 [facility] MCH 29.0 27.0 - 01/18 31.0 [facility] RDW 15.8 11.5 - 01/18 14.5 [facility] MPV 9.7 7.4 - 10.4 01/18 [facility] Platelet 98 133 - 450 01/18 [facility] BLOOD BANK RBC product Product available 01/17 Result RESULTS (01/17/19 6:45 AM) /2018 Comment: [facility] 01/17/2019 07:05 [id number]
notified brennen CHEM PANEL eGFR 01/17 Result Comment: The [facility] eGFR is calculated using the CKD-EPI [...] PANEL BUN 34 7 - 22 01/17 [facility] CHEM PANEL Creatinine 5.10 0.50 - 01/17 Lvl 1.40 [facility] CHEM PANEL Glucose Lvl 117 70 - 99 01/17 [facility] CHEM PANEL Chloride Lvl 106 95 - 109 01/17 [facility] CHEM PANEL Potassium 5.2 3.5 - 5.1 01/17 Lvl /2018 [facility] CHEM PANEL Sodium Lvl 141 135 - 145 01/17 [facility] CHEM PANEL CO2 25 24 - 32 01/17 [facility] CHEM PANEL Calcium Lvl 8.5 8.5 - 10.5 01/17 [facility] CHEM PANEL AGAP 15.2 10.0 - 01/17 20.0 [facility] HEMATOLOGY Basophils 0.8 0.0 - 1.0 01/17 [facility] HEMATOLOGY Segs 70.0 45.0 - 01/17 MH 75.0 [facility] HEMATOLOGY Lymphocytes 8.2 20.0 - 01/17 MH 40.0 [facility] HEMATOLOGY Monocytes 19.0 2.0 - 12.0 01/17 [facility] HEMATOLOGY Eosinophils 2.0 0.0 - 4.0 01/17 [facility] HEMATOLOGY Neutrophils 4.3 1.5 - 8.1 01/17 # /2018 [facility] HEMATOLOGY Lymphocytes 0.5 1.0 - 5.5 01/17 # [facility] HEMATOLOGY Monocytes # 1.2 0.0 - 0.8 01/17 [facility] HEMATOLOGY Eosinophils 0.1 0.0 - 0.5 01/17 MH # [facility] HEMATOLOGY Hct 21.1 36.0 - 01/17 MH 48.0 [facility] HEMATOLOGY MCV 87.7 80.0 - 01/17 MH 98.0 /2018 [facility] HEMATOLOGY Hgb 6.8 12.0 - 01/17 Result MH 16.0 Comment: [facility] Critical Result(s) called to jarod rodríguez at 01/17/2019 06:21_ by hd_. Read back OK. HEMATOLOGY MCH 28.4 27.0 - 01/17 MH 31.0 /2018 [facility] HEMATOLOGY RDW 16.6 11.5 - 01/17 MH 14.5 /2018 [facility] HEMATOLOGY Platelet 102 133 - 450 01/17 [facility] HEMATOLOGY MPV 9.7 7.4 - 10.4 01/17 /2018 [facility] HEMATOLOGY MCHC 32.4 32.0 - 01/17 MH 36.0 /2018 [facility] HEMATOLOGY WBC 6.1 3.7 - 10.4 01/17 [facility] HEMATOLOGY RBC 2.41 4.20 - 01/17 MH 5.40 /2018 [facility] IMMUNOLOGY Hep C Ab Negative 01/16 MH *NA* /2018 [facility] (01/16/19 2:50 PM) IMMUNOLOGY Hep Bs Ab <3.1 <=7.4 01/16 mIU/mL /2018 [facility] IMMUNOLOGY Hep B Core Negative Negative 01/16 Ab *NA* /2018 [facility] (01/16/19 2:50 PM) IMMUNOLOGY Hep Bs Ag Negative Negative 01/16 MH *NA* /2018 [facility] (01/16/19 2:50 PM) CHEM PANEL eGFR 8 01/16 Result Comment: The [facility] eGFR is calculated using the CKD-EPI [...] PANEL Potassium 3.3 3.5 - 5.1 01/16 MH Lvl /2018 [facility] CHEM PANEL Chloride Lvl 108 95 - 109 01/16 [facility] CHEM PANEL CO2 23 24 - 32 01/16 [facility] CHEM PANEL Calcium Lvl 10.1 8.5 - 10.5 01/16 [facility] CHEM PANEL AGAP 12.3 10.0 - 01/16 MH 20.0 [facility] CHEM PANEL Sodium Lvl 140 135 - 145 01/16 [facility] CHEM PANEL BUN 47 7 - 22 01/16 [facility] CHEM PANEL Creatinine 5.77 0.50 - 01/16 Lvl 1.40 [facility] CHEM PANEL Glucose Lvl 131 70 - 99 01/16 [facility] HEMATOLOGY Hct 26.2 36.0 - 01/16 48.0 [facility] HEMATOLOGY Hgb 8.3 12.0 - 01/16 16.0 [facility] HEMATOLOGY RBC 2.98 4.20 - 01/16 MH 5.40 [facility] HEMATOLOGY WBC 4.6 3.7 - 10.4 01/16 /2018 [facility] HEMATOLOGY RDW 16.7 11.5 - 01/16 14.5 [facility] HEMATOLOGY MCHC 31.8 32.0 - 01/16 36.0 [facility] HEMATOLOGY MCH 28.0 27.0 - 01/16 31.0 [facility] HEMATOLOGY MCV 87.9 80.0 - 01/16 MH 98.0 [facility] HEMATOLOGY MPV 9.1 7.4 - 10.4 01/16 [facility] HEMATOLOGY Platelet 140 133 - 450 01/16 [facility] HEMATOLOGY Eosinophils 0.1 0.0 - 0.5 01/16 MH # /2018 [facility] HEMATOLOGY Monocytes # 0.6 0.0 - 0.8 01/16 [facility] HEMATOLOGY Lymphocytes 0.9 1.0 - 5.5 01/16 # /2018 [facility] HEMATOLOGY Lymphocytes 19.1 20.0 - 01/16 MH 40.0 [facility] HEMATOLOGY Segs 65.9 45.0 - 01/16 MH 75.0 /2018 [facility] HEMATOLOGY Eosinophils 2.3 0.0 - 4.0 01/16 [facility] HEMATOLOGY Monocytes 12.1 2.0 - 12.0 01/16 /2018 [facility] HEMATOLOGY Neutrophils 3.1 1.5 - 8.1 01/16 MH # /2018 [facility] HEMATOLOGY Basophils 0.6 0.0 - 1.0 01/16 /2018 [facility] BLOOD BANK Antibody Negative 01/16 RESULTS Scrn (01/16/19 9:35 AM) /2018 [facility] BLOOD BANK ABO/Rh B POS 01/16 RESULTS /2018 [facility] HEMATOLOGY PT 14.1 12.0 - 01/16 MH 14.7 /2018 [facility] HEMATOLOGY INR 1.11 0.85 - 01/16 1.17 /2018 [facility] HEMATOLOGY PTT 28.3 22.9 - 01/16 35.8 /2018 [facility] Pathology Reports No Data Provided for This Section Diagnostic Reports Report Value Date Source Chest 1 v for Placement Patient Name: EVIE RICKS : 1955 [facility] DX Age: 63 years, Female MR: [id number] Study: Chest 1 v for Placement DX [...] changes of the left upper extremity. SL: [id number] Chest 2 views DX Clinical Indication: Coughing - preoperative. 01/16/2019 [facility] Comparison: None FINDINGS: PA and lateral chest radiographs were obtained. MEDIASTINUM: The cardiac silhouette is mildly enlarged. The aorta is unremarkable. LUNGS: The lungs are clear. No pleural effusion. No pneumothorax. OTHER: No acute osseous abnormalities. IMPRESSION: Cardiomegaly, without acute cardiopulmonary abnormality identified. SL: [id number] Pelvis with Pelvis 11/06/2012 [facility] Transvaginal US REASON FOR EXAM: 620.2. COMPARISON: [...] Date Comments Source Heart Rate 75 01/18/2019 [facility] Temperature Oral (F) 98.2 F 01/18/2019 [facility] Respitory Rate 16 01/18/2019 [facility] Systolic (mm Hg) 164 01/18/2019 [facility] Diastolic (mm Hg) 66 01/18/2019 [facility] Respitory Rate 16 01/18/2019 [facility] Systolic (mm Hg) 162 01/18/2019 [facility] Diastolic (mm Hg) 56 01/18/2019 [facility] Temperature Oral (F) 98.2 F 01/18/2019 [facility] Heart Rate 77 01/18/2019 [facility] Respitory Rate 16 01/18/2019 [facility] Temperature Oral (F) 98.4 F 01/18/2019 [facility] Heart Rate 74 01/18/2019 [facility] Systolic (mm Hg) 136 01/18/2019 [facility] Diastolic (mm Hg) 63 01/18/2019 [facility] BMI Calculated 24.35 01/16/2019 [facility] Weight 62.358 01/16/2019 [facility] Height 160.02 cm 01/16/2019 [facility] Weight 59.091 01/15/2019 [facility] BMI Calculated 22.36 01/15/2019 [facility] Height 162.56 cm 01/15/2019 [facility] Temperature Oral (F) 96.3 F 05/19/2012 [...] Type Number For Provider Date Date Visit [facility] Outpatient [id number] CANCER PUTAO KEV 01/09 Active [facility] Medical 1 [facility] RECT[facility] [place]ULL[place] [facility] [place] [id number] COLON PUTAO KEV 01/09 02/07 Active [facility] Medical 0 CANCER /2011 [facility] [place] [id number] FOLLOW JUAN 05/19 Active [facility] Medical 1 UP [facility] Observation [id number] [place] 01/16 01/18 Talon Hughes Ti /2018 [facility] Outpatient [id number] COLON RAJYALAKSHM Cancel [place] [address] [facility] [place] [id number] 620.2 - JUAN Cancel OPID 0 OVARIAN DUBOSE [place] [facility] [place] Procedures Procedure Code Date Perfomer Comments Source Colectomy [id number] [facility] Thyroidectomy [id number] [facility] Total hysterectomy [id number] [facility] Assessment and Plan Assessment and Plan Date Source Extracted from:Title: Cardiology Progress Note 01/18/2019 [facility] Author: Darrick Lewis MD Date: 01/18/19 [...] Extracted from:Title: Medicine Consultation H&P Author: Rosy Chairezh DO Date: 01/16/19 Impression and Plan ESRD [...] History Date Source Social History TypeResponse 01/15/2019 [facility] Alcohol Never Smoking Status Never smoker; Previous treatment: None; Exposure to Tobacco Smoke None; Cigarette Smoking Last 365 Days No; Reg Smoking Cessation Counseling No entered on: 01/15/19 Family History No Data Provided for This Section Advance Directives No Data Provided for This Section Functional Status No Data Provided for This Section
[2019-02-17 00:18] LABS: Basophils % 1.6 % (0-1.3); Hematocrit 35.8 % (36.0-45.0); Lymphocytes % 19.1 % (15.3-44.8); RBC Red Blood Cell Count 3.87 M/uL (3.86-4.86)
[2019-02-17 00:23] LABS: Albumin 3.7 g/dL (3.4-5.0); Bilirubin Direct 0.3 mg/dL (0-0.2); Bilirubin Total 0.8 mg/dL (0.2-1.0); Protein, Total 7.2 g/dL (6.4-8.2)
[2019-02-17] MEDS ORDERED: ONDANSETRON 4 MG/2 ML VIAL ONE (00:51)
--- NOTE | 2019-02-17 00:59 | ER ---
Nurse's Notes [facility] Name: Alma Rosa Corral Age: 63 yrs Sex: Female : 1955 Arrival Date: 02/16/2019 Time: 23:22 Bed 19 Private MD: Pattie Riggins R Diagnosis: Generalized abdominal pain Presentation: 02/16 23:45 Presenting complaint: Patient states: Lower abdominal cramping that began today; States lp1 usual abdominal cramping after dialysis but severe tonight; 2 days of diarrhea, hx of constipation. Transition of care: patient was not received from another setting of care. Onset of symptoms was February 16, 2019. Risk Assessment: Do you want to hurt yourself or someone else? Patient reports no desire to harm self or others. Initial Sepsis Screen: Does the patient meet any 2 criteria? No. Patient's initial sepsis screen is negative. Does the patient have a suspected source of infection? No. Patient's initial sepsis screen is negative. Care prior to arrival: None. 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 - Social history:: Smoking status: Patient/guardian denies using tobacco, The patient lives alone, with family. - Ebola Screening: : No symptoms or risks identified at this time. - Family history:: not pertinent. - Hospitalizations: : No recent hospitalization is reported. Screenin:51 Abuse screen: Denies threats or abuse. Nutritional screening: No deficits noted. ea Tuberculosis screening: No symptoms or risk factors identified. Fall Risk IV access (20 points). Assessment: 02/17 00:03 General: Appears in no apparent distress. comfortable, Behavior is calm, cooperative, ao appropriate for age. Pain: Complains of pain in abdomen Pain currently is 5 out of 10 on a pain scale. Neuro: Level of Consciousness is awake, Oriented to person, place, time, situation, Appropriate for age Moves all extremities. Full function Speech is normal. Cardiovascular: Capillary refill < 3 seconds Patient's skin is warm and dry. Respiratory: Airway is patent Respiratory effort is even, unlabored, Respiratory pattern is regular, symmetrical. GI: Bowel sounds present X 4 quads. Abd is soft and non tender Abd is non tender. : No signs and/or symptoms were reported regarding the genitourinary system. EENT: No signs and/or symptoms were reported regarding the EENT system. Derm: Skin is intact, Skin is pink, warm \T\ dry. normal, Skin temperature is warm. Musculoskeletal: Range of motion: Swelling. 01:29 Reassessment: Dc instructions given to Pt and significant other. Pt agree with the POC ao and to follow up with PCP. No questions at this time. Vital Signs: 02/16 23:48 BP 184 / 74; Pulse 84; Resp 18; Temp 98.7(O); Pulse Ox 100% on R/A; Weight 53.52 kg; lp1 Height 5 ft. 3 in. (160.02 cm); Pain 9/10; 02/17 00:35 BP 181 / 86; Pulse 83; Resp 18; Pulse Ox 99% on R/A; ao 01:20 BP 186 / 84; Pulse 82; Resp 18; Pulse Ox 98% ; ao 02/16 23:48 Body Mass Index 20.90 (53.52 kg, 160.02 cm) lp1 ED Course: 02/16 23:22 Patient arrived in ED. am2 23:22 Pattie Riggins MD is Private Physician. am2 23:28 Robina Ace MD is Attending Physician. ma2 23:48 Triage completed. lp1 23:48 Arm band placed on right wrist. lp1 23:51 Inserted saline lock: 20 gauge in right antecubital area, using aseptic technique. ea Blood collected. 23:52 Patient has correct armband on for positive identification. Placed in gown. Bed in low ea position. Call light in reach. Side rails up X 1. 02/17 00:03 Arroyo, Deion, RN is Primary Nurse. ao 00:30 Abdomen 1 View (KUB) XRAY In Process Unspecified. EDMS 00:37 X-ray completed. Patient tolerated procedure well. kw 01:28 No provider procedures requiring assistance completed. IV discontinued, intact, ao bleeding controlled, No redness/swelling at site. Pressure dressing applied. Administered Medications: 00:15 Drug: Zofran 4 mg Route: IVP; Site: right antecubital; ao 01:30 Follow up: Response: No adverse reaction ao Outcome: 00:58 Discharge ordered by MD. braun 01:29 Discharged to home ambulatory. ao 01:29 Condition: good 01:29 Discharge instructions given to patient, Instructed on discharge instructions, follow up and referral plans. Demonstrated understanding of instructions, follow-up care, medications, Prescriptions given X 2. 01:30 Patient left the ED. ao Signatures: Dispatcher [employer] EDMS Anabelle Valerio Laura, RN RN lp1 Deion Arroyo, RN Ermelinda Patino Elena, RN RN ea Alzahri, Mohammad, MD MD ma2
--- NOTE | 2019-02-17 01:00 | EDPHYS ---
Physician Documentation [facility] Name: Alma Rosa Corral Age: 63 yrs Sex: Female : 1955 Arrival Date: 02/16/2019 Time: 23:22 Bed 19 Private MD: Pattie Riggins R ED Physician Robina Ace HPI: 02/17 00:57 This 63 yrs old Black Female presents to ER via Wheelchair with complaints of Abdominal ma2 Cramping, dehydration. 00:57 Associated signs and symptoms: Pertinent positives: abdominal pain, Pertinent ma2 negatives: diarrhea, fever, ruptured membranes, seizure, shortness of breath, vomiting. The patient has experienced similar episodes in the past. mild abd cramp that resolved last bm 2 hrs ago . 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 - Social history:: Smoking status: Patient/guardian denies using tobacco, The patient lives alone, with family. - Ebola Screening: : No symptoms or risks identified at this time. - Family history:: not pertinent. - Hospitalizations: : No recent hospitalization is reported. ROS: 02/17 00:57 Constitutional: Negative for fever, chills, and weight loss. ma2 All other systems are negative. Exam: 00:57 Constitutional: This is a well developed, well nourished patient who is awake, alert, ma2 and in no acute distress. Chest/axilla: Normal chest wall appearance and motion. Nontender with no deformity. No lesions are appreciated. Cardiovascular: Regular rate and rhythm with a normal S1 and S2. No gallops, murmurs, or rubs. Normal PMI, no JVD. No pulse deficits. Respiratory: Lungs have equal breath sounds bilaterally, clear to auscultation and percussion. No rales, rhonchi or wheezes noted. No increased work of breathing, no retractions or nasal flaring. Abdomen/GI: Soft, non-tender, with normal bowel sounds. No distension or tympany. No guarding or rebound. No evidence of tenderness throughout. Female : Normal external genitalia. Skin: Warm, dry with normal turgor. Normal color with no rashes, no lesions, and no evidence of cellulitis. MS/ Extremity: Pulses equal, no cyanosis. Neurovascular intact. Full, normal range of motion. Neuro: Awake and alert, GCS 15, oriented to person, place, time, and situation. Cranial nerves II-XII grossly intact. Motor strength 5/5 in all extremities. Sensory grossly intact. Cerebellar exam normal. Normal gait. Vital Signs: 02/16 23:48 BP 184 / 74; Pulse 84; Resp 18; Temp 98.7(O); Pulse Ox 100% on R/A; Weight 53.52 kg; lp1 Height 5 ft. 3 in. (160.02 cm); Pain 9/10; 02/17 00:35 BP 181 / 86; Pulse 83; Resp 18; Pulse Ox 99% on R/A; ao 01:20 BP 186 / 84; Pulse 82; Resp 18; Pulse Ox 98% ; ao 02/16 23:48 Body Mass Index 20.90 (53.52 kg, 160.02 cm) lp1 MDM: 02/16 23:28 Patient medically screened. ma2 02/17 00:57 Differential diagnosis: GE vs gastritis. Data reviewed: vital signs, nurses notes. ma2 Counseling: I had a detailed discussion with the patient and/or guardian regarding: the historical points, exam findings, and any diagnostic results supporting the discharge/admit diagnosis, the presence of at least one elevated blood pressure reading (>120/80) during this emergency department visit, the need for outpatient follow up. Response to treatment: the patient's symptoms have resolved after treatment. 02/16 23:29 Order name: Basic Metabolic Panel; Complete Time: 00:56 ia2 02/16 23:29 Order name: CBC with Diff; Complete Time: 00:56 ia2 02/16 23:29 Order name: Creatinine for Radiology; Complete Time: 00:56 [facility] 02/16 23:29 Order name: Hepatic Function; Complete Time: 00:56 ia2 02/16 23:29 Order name: Lipase; Complete Time: 00:56 ia2 02/16 23:42 Order name: Abdomen 1 View (KUB) XRAY ia2 02/16 23:29 Order name: IV Saline Lock; Complete Time: 23:52 ma2 02/16 23:29 Order name: Labs collected and sent; Complete Time: 23:52 ia2 Administered Medications: 00:15 Drug: Zofran 4 mg Route: IVP; Site: right antecubital; ao 01:30 Follow up: Response: No adverse reaction ao Disposition: 02/17/19 00:58 Discharged to Home. Impression: Generalized abdominal pain. - Condition is Stable. - Discharge Instructions: Abdominal Pain, Adult. - Prescriptions for Zofran 4 mg Oral Tablet - take 1 tablet by ORAL route every 12 hours As needed; 20 tablet. Pepcid 20 mg Oral Tablet - take 1 tablet by ORAL route once daily for 10 days; 10 tablet. - Medication Reconciliation Form, Thank You Letter, Antibiotic Education, Prescription Opioid Use form. - Follow up: Private Physician; When: Tomorrow; Reason: Continuance of care. Signatures: Dispatcher [employer] EDJeni Lauren RN RN 1 Deion Arroyo RN RN ao Alzahri, Mohammad, MD MD ma2 Corrections: (The following items were deleted from the chart) 01:30 00:58 02/17/2019 00:58 Discharged to Home. Impression: Generalized abdominal pain. ao Condition is Stable. Forms are Medication Reconciliation Form, Thank You Letter, Antibiotic Education, Prescription Opioid Use. Follow up: Private Physician; When: Tomorrow; Reason: Continuance of care. ma2
[2019-02-17 01:52] VITALS: TEMP 98.7
[2019-02-17 01:55] VITALS: BP 186/84; O2SAT 98
--- NOTE | 2019-02-17 07:38 | RAD REPORT ---
EXAM DESCRIPTION: RAD - Abdomen 1 View (KUB) - 02/17/2019 12:08 am CLINICAL HISTORY: CONSTIPATION Lower abdominal pain and cramping, diarrhea history COMPARISON: Abdomen 1 View (KUB) dated 01/22/2019 FINDINGS: Bowel gas pattern is non-specific. No obstruction, free air or pneumatosis. No suspicious calcifications. Numerous arterial calcifications and phleboliths are present in the pelvis. No abnor mal stool volume. No significant bony findings IMPRESSION: No abnormal stool volume. No abnormal bowel gas pattern.
== END 2019-02-17 01:30 | disposition home or self-care (01) ==
LOC: ER 23:18
DX: R10.84 Generalized abdominal pain (principal); I10 Essential (primary) hypertension; Z86.73 Personal history of transient ischemic attack (TIA), and cerebral infarction without residual deficits; Z99.2 Dependence on renal dialysis
CPT/HCPCS: 85025; 80048; 36415; 80076; 83690; 74018; J2405; 96374; 99284

== ENCOUNTER 2020-06-17 11:22 | Emergency (ER) | payer OTHER ==
--- OUTSIDE RECORDS SUMMARY | 2020-06-17 11:25 | XMS REPORT | Continuity of Care Document ---
:1955 Author Organization [employer] Care Team Providers Name Role Phone [employer] Unavailable Un available Problems Problem Status Onset Classification Date Comments Sourc e Date Reported UNK Active 01/16/20 19 [facility] CKD Active 01/16/20 19 [place] 620.2 - OVARIAN Active 04/08/20 O PID CYST [address] FOLLOW UP Active 03/12/[address] CANCER OF RECTAL Active 01/10/[address] COLON CANCER Active 12/27/[address] Malignant tumor of Active Problem 01/20/2019 colon (disorder) [facility]ast Cerebrovascular Resolved Problem 01/20/2019 accident [place] (disorder) History of - CVA Active Problem 01/20/2019 (context-dependent [place] category) Hypertensive Active Problem 01/20/2019 disorder, systemic [place] arterial (disorder) Hyperlipidemia Resolved Problem 01/20/2019 (disorder) [facility] Kidney disease Resolved Problem 01/20/2019 (disorder) [place] - Cancer of Active Problem 11/08/2012 [facility], DAMIAN Hanley, DAMIAN Baez Cholesterol Active Problem 11/08/2012 [facility], DAMIAN Hanley, DAMIAN Baez H/O: stroke Active Problem 11/08/2012 [facility], DAMIAN Hanley, DAMIAN Baez HT - Hypertension Active Problem 11/08/2012 [facility], DAMIAN Hanley, DAMIAN Baez Medications Medication Details Route Status Patient Ordering Order Source Instructions Provider Date atorvastatin 40 40 mg = 1 tab, Active 01/18/ M H mg oral tablet PO, Bedtime, # 2019 [place] 30 tab, 0 Refill(s) Aspirin 81 MG 81 mg = 1 tab, Active 01/18/ Enteric Coated PO, Daily, # 90 2019 [place] Tablet tab, 3 Refill(s) Ondansetron 4 MG 4 mg = 1 tab, Active H Disintegrating PO, BID, PRN 2019 [place] Tablet [Zofran] Nausea and Vomiting, Dissolve tab under tongue, # 10 tab, 0 Refill(s) Acetaminophen 300 1 tab, PO, Q6H, Active MG / Codeine PRN Pain, X 7 2019 [facility] Phosphate 30 MG day, # 28 tab, Oral Tablet 0 Refill(s) [Tylenol with Codeine #3] Docusate Sodium 1 tab, PO, BID, Active 50 MG / X 10 day, # 20 2019 [facility] sennosides, LONGTERM tab, 0 8.6 MG Oral Refill(s) Tablet metoprolol 25 mg 25 mg = 1 tab, Active oral tablet, PO, Daily, # 30 2019 [facility] extended release tab, 0 Refill(s) Clonidine Notes: (Same No Longer Hydrochloride 0.3 As: Catapres) Active 2018 [facility] MG Oral Tablet metoprolol Notes: (Same No Longer extended release as: Toprol XL) Active 2018 [facility] Do Not Crush Ondansetron Notes: (Same Inactive as: Zofran) 2019 [facility] MEDICATION WASTE Product Size: 4 mg Product Wasted: ___ mg Reglan Notes: (Same Inactive as: Reglan) 2019 [facility] Hydralazine Notes: (Same No Longer as: Apresoline) [facility] 5 minutes Allopurinol Notes: (Same No Longer as: Zyloprim) Active 2018 [facility] ferrous gluconate 256 mg, Route: No Longer 01/17 PO, Drug form: Active 2019 [facility] TAB, Daily, Dosing Weight 62.358, kg, Start date: 01/17/19 9:00:00 CDT, Duration: 30 day, Stop date: 02/15/19 9:00:00 CDT Docusate Sodium Notes: (Same as No Longer 50 MG / Senokot-S) Active 2018 [facility] sennosides, LONGTERM Equiv. to 8.6 MG Oral Zoraida-Colace. Tablet ferrous sulfate Notes: Give No Longer with food. "Do Active [facility] Not [facility]" paricalcitol Notes: (Same No Longer 0.001 MG Oral as: Zemplar) Active 2018 [facility] Capsule Nifedical XL Notes: (Same No Longer as: Adalat CC, Active 2018 [facility] Procardia XL) Give on empty stomach. Take 1 hour before or 2 hours after meal; "Avoid grapefruit and grapefruit juice". Do not crush Nephro-Flash Rx Notes: (Same No Longer as: Nephro-Flash [facility] and Diatx) Give with food. Triiodothyronine Notes: (Same No Longer as: Cytomel) Active 2018 [facility] Thyroxine Notes: Take 1 No Longer hour before or Active 2018 [facility] 2 hours after meal; Enteral feeds may interefere with the absorption of this medication.(Juan e as:Levothroid, Synthroid) heparin Notes: porcine No Longer heparin Active 2018 [facility] atorvastatin Notes: (Same No Longer as: Lipitor) Active 2018 [facility] Acetaminophen 325 Notes: (Same No Longer MG / Hydrocodone as: [place] Active 2018 [facility] Bitartrate 5 MG 325/5) Do not Oral Tablet exceed 4gm/day [[place] 5/325] of acetaminophen. Acetaminophen 325 2 tab, Route: Inactive MG / Hydrocodone PO, Dosing 2018 [facility] Bitartrate 5 MG Weight 62.358, Oral Tablet kg, Q4H, STAT, [[place] 5/325] Start date: 01/16/19 19:36:00 CDT, Duration: 30 day, Stop date: 02/15/19 16:00:00 CDT Milk of Magnesia Notes: (Same No Longer as: Milk of Active 2018 [facility] Magnesia, MOM) Aspirin 81 MG Notes: Take No Longer Chewable Tablet with food. Active 2018 [facility] Zofran Notes: (Same No Longer as: Zofran) 2018 [facility] MEDICATION WASTE Product Size: 4 mg Product Wasted: ___ mg Lactulose 667 Notes: (Same No Longer MG/ML Oral as:Chronulac) [facility] [address] [facility] Solution Morphine Notes: (Same No Longer as:MORPhine Active 2018 [facility] Sulfate) Metoprolol Notes: (Same No Longer as: Lopressor) Active 2018 [facility] Push over 2 minutes Epogen Notes: (Same No Longer as: Procrit) Active 2018 [facility] epoetin jennifer 4000 unit/1 ml VL For dialysis only. (Epogen) WASTE: F/P - Red; E -Red MEDICATION WASTE Product Size: 4000 unit Product Wasted: ___ unit Hydralazine Notes: (Same No Longer Hydrochloride 100 as: Apresoline) Active 2018 [facility] MG Oral Tablet May interfere w/enteral feedings Take With Food Promethazine 6.25 mg, Route: Inactive IVPB, ONCE, 2018 [facility] Dosing Weight 62.358, kg, PRN Nausea & Vomiting, Start date: 01/16/19 12:59:00 CDT Naloxone 0.1 mg, Route: Inactive SUB-Q, Q6H, 2018 [facility] Dosing Weight 62.358, kg, PRN Itching, Start date: 01/16/19 12:59:00 CDT, Duration: 30 day, Stop date: 02/15/19 12:58:00 CDT Meperidine 12.5 mg, Route: Inactive IVP, Q30Min, 2018 [facility] Dosing Weight 62.358, kg, PRN Other -See Comment, For shivering, Start date: 01/16/19 12:59:00 CDT, Duration: 2 doses or times, Stop date: Limited # of times Ondansetron 4 mg, Route: Inactive IVP, ONCE, 2018 [facility] Dosing Weight 62.358, kg, PRN Nausea & Vomiting, Start date: 01/16/19 12:59:00 CDT Flumazenil 0.2 mg, Route: Inactive IVP, PRN, 2018 [facility] Dosing Weight 62.358, kg, PRN Benzodiazepine Reversal, Initial dose, Start date: 01/16/19 12:59:00 CDT, Duration: 30 day, Stop date: 02/15/19 12:58:00 CDT Fentanyl 50 microgram, Inactive Route: IVP, 2019 [facility] Q5Min, Dosing Weight 62.358, kg, PRN Pain Score 7-10, Priority: Routine, Start date: 01/16/19 12:59:00 CDT, Duration: 2 doses or times, Stop date: Limited # of times Hydromorphone 0.5 mg, Route: Inactive IVP, Q5Min, 2018 [facility] Dosing Weight 62.358, kg, PRN Pain Score 7-10, Start date: 01/16/19 12:59:00 CDT, Duration: 4 doses or times, Stop date: Limited # of times Diphenhydramine 12.5 mg, Route: Inactive IVP, Drug form: 2019 [place] INJ, Q6H, Dosing Weight 62.358, kg, PRN Itching, Start date: 01/16/19 12:59:00 CDT, Duration: 30 day, Stop date: 02/15/19 12:58:00 CDT Albuterol 0.83 2.49 mg, Route: Inactive MG/ML Inhalant NEB, Q20Min, 2019 [facility] Solution Dosing Weight 62.358, kg, PRN Wheezing, Priority: Routine, Start date: 01/16/19 12:59:00 CDT, Duration: 30 day, Stop date: 02/15/19 12:58:00 CDT Acetaminophen 1,000 mg, Inactive Route: PO, Drug 2019 [place] form: TAB, ONCE, Dosing Weight 62.358, kg, PRN Pain Score 1-3, Start date: 01/16/19 12:59:00 CDT Hydralazine 10 mg, Route: Inactive IVP, Q20Min, 2018 [facility] Dosing Weight 62.358, kg, PRN Elevated BP, Start date: 01/16/19 12:59:00 CDT, Duration: 2 doses or times, Stop date: Limited # of times Labetalol 10 mg, Route: Inactive IVP, Q5Min, 2018 [facility] Dosing Weight 62.358, kg, PRN Elevated BP, Start date: 01/16/19 12:59:00 CDT, Duration: 5 doses or times, Stop date: Limited # of times esmolol (ANES) Route: IV, Drug Inactive form: INJ, 2018 ONCE, Stop date: 01/16/19 12:45:00 CDT Dextrose 50% in Route: IV, Stop Inactive Water IV (ANES) date: 01/16/192018 [facility] [place] 12:45:00 CDT phenylephrine Route: IV, Drug Inactive 01/16/ M H (ANES) form: [id number], Stop date: 01/16/19 12:45:00 CDT EPINEPHrine Route: IV, Drug Inactive 01/16/ MH (ANES) form: [id number] ONCE, Stop date: 01/16/19 12:43:00 CDT calcium chloride Route: IV, Drug Inactive 01/16/ MH (ANES) form: 2018, Stop date: 01/16/19 12:33:00 CDT propofol (ANES) Route: IV, Drug Inactive form: [id number], Stop date: 01/16/19 11:52:00 CDT Amidate (ANES) Route: IV, Drug Inactive form: 2018, Stop date: 01/16/19 11:52:00 CDT norepinephrine Route: IV, Drug Inactive 01/16/ MH (ANES) form: [id number], Stop date: 01/16/19 11:52:00 CDT lidocaine (ANES) Route: IV, Drug Inactive MH form: [id number], Stop date: 01/16/19 11:52:00 CDT ondansetron Route: IV, Drug Inactive 01/16/ MH (ANES) form: [id number], Stop date: 01/16/19 11:42:00 CDT ceFAZolin (ANES) Route: IV, Drug Inactive form: [id number], Stop date: 01/16/19 11:42:00 CDT fentaNYL (ANES) Route: IV, Drug Inactive MH form: [id number], Stop date: 01/16/19 11:37:00 CDT vancomycin (ANES) Route: IV, Drug Inactive 07/26 / MH 1000 mg form: INJ, 2019 [facility] Start date: 01/16/19 10:50:00 CDT, Stop date: 01/16/19 11:50:00 CDT Sodium Chloride Route: IV, Inactive 0.9% IV (ANES) Total Volume: 2019 [facility] 1000 mL 1,000, Start date: 01/16/19 10:46:00 CDT, Stop date: 01/16/19 11:46:00 CDT Insulin regular 5 unit, Route: Inactive IV, ONCE, 2018 [facility] Dosing Weight 62.358, kg, Start date: 01/16/19 10:40:00 CDT, Stop date: 01/16/19 10:40:00 CDT Dextrose 12.5 gm, Route: Inactive IVPB, ONCE, 2018 [facility] Dosing Weight 62.358, kg, Start date: 01/16/19 10:39:00 CDT, Stop date: 01/16/19 10:39:00 CDT Calcium Chloride 1,000 mL, Rate: Inactive 0.0014 MEQ/ML / 25 ml/hr, 2018 [facility] Potassium Infuse over: 40 Chloride 0.004 hr, Route: IV, MEQ/ML / Sodium Dosing Weight Chloride 0.103 62.358 kg, MEQ/ML / Sodium Total Volume: Lactate 0.028 1,000, Start MEQ/ML Injectable date: 01/16/19 Solution 8:46:00 CDT, Duration: 1 day, Stop date: 01/17/19 8:45:00 CDT, 1.68, m2, 0 Sodium Chloride 1,000 mL, Rate: Inactive 0.9% IV 1,000 mL 25 ml/hr, 2018 [facility] Infuse over: 40 hr, Route: IV, Dosing Weight 62.358 kg, Total Volume: 1,000, Start date: 01/16/19 8:46:00 CDT, Duration: 1 day, Stop date: 01/17/19 8:45:00 CDT, 1.68, m2, 0 Vitamin B12 monthly, 0 Active Refill(s) 2018 [facility] allopurinol 100 100 mg = 1 tab, Active mg oral tablet PO, Daily, # 90 2019 [place] tab, 1 Refill(s) Aspirin 81 MG 81 mg = 1 tab, Active Chewable Tablet PO, Daily, tab, 2019 0 Refill(s) 24 HR Nifedipine 30 mg = 1 tab, No Longer 01/15/ MH 30 MG Extended PO, Daily, # 30 Active 2019 [place] Release Tablet tab, 0 [Nifedical] Refill(s) paricalcitol 1 microgram = 1 Active 0.001 MG Oral cap, PO, Daily, 2019 [place] Capsule # 30 cap, 0 Refill(s) levothyroxine 50 50 microgram = Active mcg (0.05 mg) 1 tab, PO, [address] oral tablet Daily, # 30 tab, 0 Refill(s) liothyronine 5 5 microgram = 1 Active 01/15/ H mcg oral tablet tab, PO, Daily, 2019 # 30 tab, 0 Refill(s) Ferate 256 mg (28 256 mg = 1 tab, Active mg elemental PO, Daily, 0 [address] iron) oral tablet Refill(s) Hydralazine 100 mg = 1 tab, Active 01/15/ Hydrochloride 100 PO, TID, # 90 2019 [facility] MG Oral Tablet tab, 3 Refill(s) atorvastatin 40 40 mg = 1 tab, Active H mg oral tablet PO, Bedtime, # 2019 [place] 30 tab, 0 Refill(s) Clonidine 0.3 mg = 1 tab, Active Hydrochloride 0.3 PO, TID, # 60 2019 [facility] MG Oral Tablet tab, 1 Refill(s) Vancomycin 2001 mg: No Longer infuse over 2.5 Active 2018 t hours For adult patients only: Round to nearest 250 mg per Medical Staff approval MEDICATION WASTE Product Size: 1000 mg Product Wasted: ___ mg Ancef + sterile Notes: (Same No Longer 01/15/ M H water 20 mL As: Ancef, Active 2018 [facility] Kefzol) MEDICATION WASTE Product Size: 1000 mg Product Wasted: ___ mg Allergies, Adverse Reactions, Alerts Substance Category Reaction Severity Reaction Status Date Comments S ource type Reported amLODIPine Assertion Drug Active allergy [place] Immunizations No Data Provided for This Section Results Order Name Results Value Reference Date Interpretation Comments Giovanna rce Range CHEM PANEL eGFR 13 01/18 Result Comment: [facility] eGFR is calculated using the CKD-EPI [...] Sodium Lvl 141 135 - 145 01/18 [facility] CHEM PANEL Creatinine 3.85 0.50 - 01/18 Lvl 1.40 [facility] CHEM PANEL Glucose Lvl 102 70 - 99 01/18 [facility] CHEM PANEL BUN 19 7 - 22 01/18 [facility] CHEM PANEL Calcium Lvl 8.6 8.5 - 10.5 01/18 [facility] CHEM PANEL Chloride Lvl 107 95 - 109 01/18 [facility] CHEM PANEL CO2 29 24 - 32 01/18 [facility] CHEM PANEL Potassium 3.7 3.5 - 5.1 01/18 Lvl /2018 [facility] CHEM PANEL AGAP 8.7 10.0 - 01/18 MH 20. [facility] HEMATOLOGY Segs 64.4 45.0 - 01/18 MH 75.0 [facility] HEMATOLOGY Eosinophils 3.7 0.0 - 4.0 01/18 [facility] HEMATOLOGY Monocytes 21.0 2.0 - 12.0 01/18 [facility] HEMATOLOGY Basophils 0.7 0.0 - 1.0 01/18 [facility] HEMATOLOGY Lymphocytes 10.2 20.0 - 01/18 MH 40.0 [facility] HEMATOLOGY Neutrophils 4.5 1.5 - 8.1 01/18 MH # /2018 [facility] Lymphocytes 0.7 1.0 - 5.5 01/18 MH # /2018 [facility] HEMATOLOGY Eosinophils 0.3 0.0 - 0.5 01/18 # [facility] Monocytes # 1.5 0.0 - 0.8 01/18 [facility] WBC 7.0 3.7 - 10.4 01/18 [facility] RBC 2.62 4.20 - 01/18 MH 5.40 /2018 [facility] Hgb 7.6 12.0 - 01/18 MH 16.0 [facility] Hct 22.6 36.0 - 01/18 MH 48.0 /2018 [facility] MCV 86.4 80.0 - 01/18 98.0 [facility] MCHC 33.6 32.0 - 01/18 36.0 [facility] MCH 29.0 27.0 - 01/18 31.0 [facility] RDW 15.8 11.5 - 01/18 14.5 [facility] MPV 9.7 7.4 - 10.4 01/18 [facility] Platelet 98 133 - 450 01/18 [facility] BLOOD BANK RBC product Product available 4 01/17 [facility] RESULTS (01/17/19 6:45 AM) Comment: [facility] 01/17/2019 07:05 [id number]
notified brennen CHEM PANEL eGFR 01/17 Result Comment: [facility] eGFR is calculated using the CKD-EPI [...] PANEL BUN 34 7 - 22 01/17 /2018 [facility] CHEM PANEL Creatinine 5.10 0.50 - 01/17 MH Lvl 1.40 [facility] CHEM PANEL Glucose Lvl 117 70 - 99 01/17 [facility] CHEM PANEL Chloride Lvl 106 95 - 109 01/17 [facility] CHEM PANEL Potassium 5.2 3.5 - 5.1 01/17 Lvl /2018 [facility] CHEM PANEL Sodium Lvl 141 135 - 145 01/17 [facility] CHEM PANEL CO2 25 24 - 32 01/17 [facility] CHEM PANEL Calcium Lvl 8.5 8.5 - 10.5 01/17 [facility] CHEM PANEL AGAP 15.2 10.0 - 01/17 20.0 [facility] HEMATOLOGY Basophils 0.8 0.0 - 1.0 01/17 /2018 [facility] HEMATOLOGY Segs 70.0 45.0 - 01/17 MH 75.0 /2018 [facility] HEMATOLOGY Lymphocytes 8.2 20.0 - 01/17 MH 40.0 /2018 [facility] HEMATOLOGY Monocytes 19.0 2.0 - 12.0 01/17 /2018 [facility] HEMATOLOGY Eosinophils 2.0 0.0 - 4.0 01/17 /2018 [facility] HEMATOLOGY Neutrophils 4.3 1.5 - 8.1 01/17 MH # /2019 [facility] HEMATOLOGY Lymphocytes 0.5 1.0 - 5.5 01/17 MH # /2018 [facility] HEMATOLOGY Monocytes # 1.2 0.0 - 0.8 01/17 /2018 [facility] HEMATOLOGY Eosinophils 0.1 0.0 - 0.5 01/17 MH # /2019 [facility] HEMATOLOGY Hct 21.1 36.0 - 01/17 MH 48.0 [facility] HEMATOLOGY MCV 87.7 80.0 - 01/17 98.0 [facility] HEMATOLOGY Hgb 6.8 12.0 - 01/17 Result 16.0 Comment: [facility] Critical Result(s) called to jarod rodríguez at 01/17/2019 06:21_ by hd_. Read back OK. HEMATOLOGY MCH 28.4 27.0 - 01/17 31.0 [facility] HEMATOLOGY RDW 16.6 11.5 - 01/17 14.5 [facility] HEMATOLOGY Platelet 102 133 - 450 01/17 [facility] HEMATOLOGY MPV 9.7 7.4 - 10.4 01/17 [facility] HEMATOLOGY MCHC 32.4 32.0 - 01/17 MH 36.0 /2018 [facility] HEMATOLOGY WBC 6.1 3.7 - 10.4 01/17 [facility] HEMATOLOGY RBC 2.41 4.20 - 01/17 MH 5.40 /2018 [facility] IMMUNOLOGY Hep C Ab Negative 01/16 MH *NA* /2018 [facility] (01/16/19 2:50 PM) IMMUNOLOGY Hep Bs Ab <3.1 <=7.4 01/16 mIU/mL /2018 [facility] IMMUNOLOGY Hep B Core Negative Negative 01/16 Ab *NA* [facility] (01/16/19 2:50 PM) IMMUNOLOGY Hep Bs Ag Negative Negative 01/16 MH *NA* [facility] (01/16/19 2:50 PM) CHEM PANEL eGFR 8 01/16 Result Comment: [facility] eGFR is calculated using the CKD-EPI [...] 3.5 - 5.1 01/16 MH Lvl /2018 [facility] CHEM PANEL Chloride Lvl 108 95 - 109 01/16 [facility] CHEM PANEL CO2 23 24 - 32 01/16 [facility] CHEM PANEL Calcium Lvl 10.1 8.5 - 10.5 01/16 [facility] CHEM PANEL AGAP 12.3 10.0 - 01/16 MH 20.0 [facility] CHEM PANEL Sodium Lvl 140 135 - 145 01/16 [facility] CHEM PANEL BUN 47 7 - 22 01/16 [facility] CHEM PANEL Creatinine 5.77 0.50 - 01/16 Lvl 1.40 /2018 [facility] CHEM PANEL Glucose Lvl 131 70 - 99 01/16 /2018 [facility] HEMATOLOGY Hct 26.2 36.0 - 01/16 48.0 /2018 [facility] HEMATOLOGY Hgb 8.3 12.0 - 01/16 MH 16.0 /2018 [facility] HEMATOLOGY RBC 2.98 4.20 - 01/16 MH 5.40 /2018 [facility] HEMATOLOGY WBC 4.6 3.7 - 10.4 01/16 /2018 [facility] HEMATOLOGY RDW 16.7 11.5 - 01/16 MH 14.5 /2018 [facility] HEMATOLOGY MCHC 31.8 32.0 - 01/16 36.0 [facility] HEMATOLOGY MCH 28.0 27.0 - 01/16 31.0 [facility] HEMATOLOGY MCV 87.9 80.0 - 01/16 98.0 /2018 [facility] HEMATOLOGY MPV 9.1 7.4 - 10.4 01/16 /2018 [facility] HEMATOLOGY Platelet 140 133 - 450 01/16 /2018 [facility] HEMATOLOGY Eosinophils 0.1 0.0 - 0.5 01/16 MH # /2018 [facility] HEMATOLOGY Monocytes # 0.6 0.0 - 0.8 01/16 /2018 [facility] HEMATOLOGY Lymphocytes 0.9 1.0 - 5.5 01/16 # /2018 [facility] HEMATOLOGY Lymphocytes 19.1 20.0 - 01/16 40.0 /2018 [facility] HEMATOLOGY Segs 65.9 45.0 - 01/16 75.0 /2018 [facility] HEMATOLOGY Eosinophils 2.3 0.0 - 4.0 01/16 /2018 [facility] HEMATOLOGY Monocytes 12.1 2.0 - 12.0 01/16 /2018 [facility] HEMATOLOGY Neutrophils 3.1 1.5 - 8.1 01/16 # /2018 [facility] HEMATOLOGY Basophils 0.6 0.0 - 1.0 01/16 /2018 [facility] BLOOD BANK Antibody Negative 01/16 RESULTS Scrn (01/16/19 9:35 AM) /2018 [facility] BLOOD BANK ABO/Rh B POS 01/16 RESULTS /2018 [facility] HEMATOLOGY PT 14.1 12.0 - 01/16 MH 14.7 /2018 [facility] HEMATOLOGY INR 1.11 0.85 - 01/16 MH 1.17 [facility] HEMATOLOGY PTT 28.3 22.9 - 01/16 35.8 /2018 [facility] Pathology Reports No Data Provided for This Section Diagnostic Reports Report Value Date Source Chest 1 v for Placement Patient Name: EVIE RICKS DO B: 1955 01/16/2019 [facility] DX Age: 63 years, Female MR: [id number] Study: Chest 1 v for Placement DX 01/16/2019 12:5 5 CDT Indication: Line Placement - Chest 1 view for li ne placement. Comparison: Chest 2 views 01/16/2019. Findings: Lines/tubes: Right internal jugular tunneled central venous catheters with the tips projecting over the expected regions of the right atrium. Kinking of the proximal catheters may represent fixation points with sutures. Cardiovascular: Normal cardiac silhouette. Norm al thoracic aorta. Mediastinum: No mediastinal or hilar mass or ly mphadenopathy. Lungs: No parenchymal mass. No focal consolid ation. Pleura: No pleural effusion. No pneumothorax. Soft tissues: Subcutaneous air, surgical clips, and skin fuad project over the left upper extremity. Bones: No acute osseous abn ormality. Degenerative changes of the thoracic spine. IMPRESSION: Right internal jugular central venous catheters positioned as above. Postoperative changes of the left upper extremit y. SL: [id number] Chest 2 views DX Clinical Indication: Coughing - preoperative. 0 01/16/2019 [facility] Comparison: None FINDINGS: PA and lateral chest radiographs were obtained. MEDIASTINUM: The cardiac rad houette is mildly enlarged. The aorta is unremarkable. LUNGS: The lungs are clear. No pleural effusion. No pneumothorax. OTHER: No acute osseous abnormalities. IMPRESSION: Cardiomegaly, without acute cardiopulmonary abno rmality identified. SL: [id number] Pelvis with Pelvis 11/06/2012 [facility] and Transvaginal US REASON FOR EXAM: 620.2. COMPARISON: Pelvic ultrasound 05/19/2012 and . FINDINGS: Transabdominal and transvaginal ultrasound of the pelvis was performed. Static images are submitted. TRANSABDOMINAL SONOGRAM: The urinary bladder is parti ally distended without demonstrable abnormality. The uterus is surgically absent. There is a right pelvic cyst which is better depicted on the transvaginal exam. There is no free fluid in the pelvis. TRANSVAGINAL SONOGRAM: The uterus is surgically abs ent. Normal right ovary measuring 1.7 x 2.7 x 2.3 cm. Arterial flow is demonstrated in the right ovary by spectral Doppler analysis. There is a simple appearing right paraova yajaira cyst measuring 5.1 x 4. 7 x 4.6 cm, previously 5.8 x 4.2 x 4.6 cm on the most recent comparison examination. No demonstrable wall thickening, mural nodule or internal septation. The left ovary is no t seen and per patient histo ry is surgically absent. There is no free fluid in the pelvis. IMPRESSION: 1. Status post hysterectomy and left oophorectom y. 2. Stable 5.1 cm right paraovarian cyst. Please correlate clinically and consider follow- up imaging as indicated. Dictation code: 15 Consultation Notes No Data Provided for This Section Discharge Summaries No Data Provided for This Section History and Physicals No Data Provided for This Section Vital Signs Vital Sign Value Date Comments Source Heart Rate 75 01/18/2019 [facility] Temperature Oral (F) 98.2 F [facility] 16 01/18/2019 [facility] Systolic (mm Hg) 164 01/18/2019 [place] Diastolic (mm Hg) 66 01/18/[address] [facility] [address] Respitory Rate 16 01/18/2019 [facility] Systolic (mm Hg) 162 01/18/2019 [place] Diastolic (mm Hg) 56 01/18/[address] [facility] [address] Temperature Oral (F) 98.2 F 01/18/2019 [facility] Heart Rate 77 01/18/2019 [facility] Respitory Rate 16 01/18/2019 [facility] Temperature Oral (F) 98.4 F 01/18/2019 [facility] Heart Rate 74 01/18/2019 [facility] Systolic (mm Hg) 136 01/18/2019 [place] Diastolic (mm Hg) 63 [facility] BMI Calculated 24.35 01/16/2019 [facility] Weight 62.358 01/16/2019 [facility] Height 160.02 cm 01/16/2019 [facility] Weight 59.091 01/15/2019 [facility] BMI Calculated 22.36 01/15/2019 [facility] Height 162.56 cm 01/15/2019 [facility] Temperature Oral (F) 96.3 F 05/19/2012 [facility] Heart Rate 57 05/19/2012 [facility] Respitory Rate 20 05/19/2012 [facility] Center Systolic (mm Hg) 180 05/19/2012 [facility] dical Center Diastolic (mm Hg) 93 05/19/2012 [facility] Weight 81.136 05/19/2012 [facility] Height 160.02 cm 05/19/2012 [facility] Temperature Oral (F) 97.8 F 01/28/2012 [facility] Systolic (mm Hg) 181 01/28/2012 [facility] dical Center Heart Rate 53 01/28/2012 [facility] Respitory Rate 18 01/28/2012 [facility] Center Diastolic (mm Hg) 81 01/28/2012 [facility] Weight 80.710 01/28/2012 [facility] Height 160.02 cm 01/28/2012 [facility] Respitory Rate 18 01/10/2012 [facility] Center Heart Rate 62 01/10/2012 [facility] Temperature Oral (F) 98.3 F 01/10/2012 [facility] Diastolic (mm Hg) 76 01/10/2012 [facility] edical Center Systolic (mm Hg) 144 01/10/2012 [facility] dical Center Weight 81.080 01/10/2012 [facility] Height 160.02 cm 01/10/[address] [facility] Encounters Location Location Encounter Encounter Reason Attending ADM SD Stat us Source Details Type Number For Provider Date Date Visit [facility] [place] [id number] COLON PUTAO KEV 01/09 02/07 Active [facility] 0 CANCER /2011 [facility] Outpatient [id number] CANCER PUTAO KEV 01/09 Act [facility] RECTAL Center AMPULLA [facility] [place] [id number] FOLLOW JUAN 05/19 Active [facility] 1 [facility] Observation [id number] Blaine 01/16 01/18 Talon Luke /2018 [facility] Outpatient [id number] COLON SALLY [place] [address] [facility] [place] r [place] [id number] 620.2 - JUAN Cancel OPID 0 OVARIAN DUBOSE Talon [facility] [place] Procedures Procedure Code Date Perfomer Comments Source Colectomy [id number] [facility] Thyroidectomy 84648100 [place] Total hysterectomy [id number] Gi[facility] theast Assessment and Plan Assessment and Plan Date Source Extracted from:Title: Cardiology Progress Note 01/18/2019 [facility] Author: Darrick Lewis MD Date: 01/18/19 Impression and Plan ESRD on hemodialysis s/p L AVF transposition on 01/16 SVT Hypertension Hyperlipidemia CVA Hypothyroidism Acute on chronic anemia Presents for a left AV fistula transposition Intraoperatively noted to have SVT Denies any chest pain or shortness of breath. No palpitatio ns as well We will continue to monitor on telemetry. TTE unremarkable TSH wnl Keep K > 4 and Mg > 2 Resume MTP xl at 25 mg daily. Titrate as needed Adjust BP meds as need. IV hydralazine prn Stable from a CV standpoint to d/c home. D/w Dr. Chairez Extracted from:Title: Medicine Consultation H&P Author: Rosy Chairez Meera DO Date: 01/16/19 Impression and Plan ESRD - s/p right AVF and placement of tunneled cath today with Dr Melissa Luke -Continue symptomatic care - cont to [...] with heparin Disposition: home once acute issues reso lve. Will follow along with you. Thank you for allowing us to participate in this patient's care. Plan of Care No Data Provided for This Section Social History Social History Date Source Social History TypeResponse 01/15/2019 [facility] Alcohol Never Smoking Status Never smoker; Previous treatment: None; Exposure to Tobacco Smoke None; Cigarette Smoking Last 365 Days No; Reg Smoking Cessation Counseling No entered on: 01/15/19 Family History No Data Provided for This Section Advance Directives No Data Provided for This Section Functional Status No Data Provided for This Section
--- OUTSIDE RECORDS SUMMARY | 2020-06-17 11:26 | XMS REPORT | Continuity of Care Document ---
:1955 Author Organization [facility] t Address [address] [place] [address] Care Team Providers Name Role Phone Oseas Luke Attending Clinician Oseas Luke Admitting Clinician Problems Condition Condition Condition Status Onset Resolution Last Treating Co mments Source Name Details Category Date Date Treatment Clinician Date UNK Diagnosis Active 2019-01-16 [facility] oria 01-15 13:44:00 l UNK 00:00: [place] 00 Active 01/15/2019 [facility] CKD Diagnosis Active 2019-01-19 [facility] oria 01-15 11:41:00 l CKD 00:00: [place] 00 Active 01/15/2019 [facility] 620.2 - Diagnosis Active 2011-062012-06-08 Sc moria OVARIAN 0 15:31:00 l CYST NE 620.2 - 00:01: Keenan n OVARIAN 00 CYST NE Active 04/08/2012 OPID [place] FOLLOW UP Diagnosis Active 2012-05-19 [facility] 03-12 10:19:00 l FOLLOW 00:00: [place] UP 00 Active 2 [facility] CANCER OF Diagnosis Active 2012-01-17 Mem[facility] RECTAL 01-09 09:50:00 l AMPULLA CANCER 00:00: [place] OF RECTAL 00 AMPULLA Active 01/10/2012 [facility] COLON Diagnosis Active 2012-02-15 Mem oria CANCER 12-26 13:01:00 l COLON 00:00: [place] CANCER 00 Active 12/27/2011 [facility] Cerebrovas Problem Resolve 2019-01-20 [facility] cular d 21:35:04 l accident [place] (disorder) Cerebrovas cular accident (disorder) Resolved Problem 01/20/2019 [facility] Hyperlipid Problem Resolve 2019-01-20 Memoria emia d 21:35:04 l (disorder) Keenan n Hyperlipid emia (disorder) Resolved Problem 01/20/2019 [facility] Kidney Problem Resolve 2019-01-20 Anthony litzy disease d 21:35:04 l (disorder) Kidney Herm vin disease (disorder) Resolved Problem 01/20/2019 [facility] Malignant Problem Active 2019-01-20 Me moria tumor of 21:35:04 l colon [place] (disorder) Malignant tumor of colon (disorder) Active Problem 01/20/2019 [facility] History of Problem Active 2019-01-20 M emoria - CVA 21:35:04 l (context-d History Her cardenas ependent of - CVA category) (context-d ependent category) Active Problem 01/20/2019 [facility] Hypertensi Problem Active 2019-01-20 M emoria ve 21:35:04 l disorder, [place] systemic Hypertensi arterial ve (disorder) disorder, systemic arterial (disorder) Active Problem 01/20/2019 [facility] CA - Problem Active 2012-11-08 Memor ia Cancer of 21:08:25 l colon CA - [place] Cancer of colon Active Problem 11/08/2012 [facility], DAMIAN Hanley, DAMIAN Baez Cholestero Problem Active 2012-11-08 M emoria l 21:08:25 l [place] Cholestero l Active Problem 11/08/2012 [facility], DAMIAN Hanley, DAMIAN Baez H/O: Problem Active 2012-11-08 Memor ia stroke 21:08:25 l H/O: [place] stroke Active Problem 11/08/2012 [facility], DAMIAN Hanley, DAMIAN Baez HT - Problem Active 2012-11-08 Mem[facility] ia Hypertensi 21:08:25 l on HT - [place] Hypertensi on Active Problem 3 [facility], DAMIAN Hanley, DAMIAN Baez Allergies, Adverse Reactions, Alerts Allergy Allergy Status Severity Reaction(s) Onset Inactive Treating Comm ents Source Name Type Date Date Clinician amLODIPi amLODIPi Active Alyssa Hanley Social History Social Habit Start Date Stop Date Quantity Comments Source Social History 2019-01-15 2019-01-15 [facility] ermann 18:23:27 18:23:27 Medications Ordered Filled Start Stop Current Ordering Indication Dosage Frequency Signature Comments Components Source Medication Medication Date Date Medication? Clinician (SIG) Name Name atorvivianetapartha Yes 40 mg = 1 M emoria n 40 mg 7-28 tab, PO, l oral tablet 17:26: Bedtime, # [place] 00 30 tab, 0 Refill(s) Aspirin 81 Yes 81 mg = 1 Me moria MG Enteric 7-28 tab, PO, l Coated 17:21: Daily, # [place] Tablet 00 90 tab, 3 Refill(s) Ondansetron Yes 4 mg = 1 Me moria 4 MG 7-28 tab, PO, l Disintegrat 17:07: BID, PRN He rmann ing Tablet 00 Nausea and [Zofran] Vomiting, Dissolve tab under tongue, # 10 tab, 0 Refill(s) Acetaminoph Yes 1 tab, PO, Memoria en 300 MG / 7-28 Q6H, PRN l Codeine 17:05: Pain, X 7 [place] nn Phosphate 00 day, # 28 30 MG Oral tab, 0 Tablet Refill(s) [Tylenol with Codeine #3] Docusate Yes 1 tab, PO, Mem oria Sodium 50 7-28 BID, X 10 l MG / 17:05: day, # 20 [place] sennosides, 00 tab, 0 CORRECTION 8.6 MG Refill(s) Oral Tablet metoprolol Yes 25 mg = 1 Me moria 25 mg oral 7-28 tab, PO, l tablet, 17:05: Daily, # [place] n extended 00 30 tab, 0 release Refill(s) Clonidine No Notes: Memori a Hydrochlori 01-17 (Same As: l de 0.3 MG 18:00: Catapres) Her cardenas Oral Tablet 00 metoprolol No Notes: Memor ia extended 01-17 (Same as: l release 17:00: Toprol XL) Herm vin 00 Do Not Crush Ondansetron No Notes: Anthony litzy 01-17 (Same as: l 16:09: Zofran) [place] MEDICATION WASTE Product Size: 4 mg Product Wasted: ___ mg Reglan No Notes: Memoria 7-27 (Same as: l 15:31: Reglan) Hydralazine No Notes: Anthony litzy 7-27 (Same as: l 15:31: Apresoline ) Push over 5 minutes Allopurinol No Notes: Anthony litzy 7-27 (Same as: l 14:00: Zyloprim) ferrous No 256 mg, Memoria gluconate 01-17 Route: PO, l 14:00: Drug form: TAB, Daily, Dosing Weight 62.358, kg, Start date: 01/17/19 9:00:00 CDT, Duration: 30 day, Stop date: 02/15/19 9:00:00 CDT Docusate No Notes: Memoria Sodium 50 -27 (Same as l MG / 14:00: Senokot-S) sennosides, 00 Equiv. to CORRECTION 8.6 MG Zoraida-Colac Oral Tablet e. ferrous No Notes: Memoria sulfate -27 Give with l 14:00: food. "Do Not Crush" paricalcito No Notes: Anthony litzy l 0.001 MG - (Same as: l Oral 14:00: Zemplar) Capsule Nifedical No Notes: Memori a XL - (Same as: l 14:00: Adalat CC, Procardia XL) Give on empty stomach. Take 1 hour before or 2 hours after meal; "Avoid grapefruit and grapefruit juice". Do not crush Nephro-Flash No Notes: Anthony litzy Rx - (Same as: l 14:00: Nephro-Vit e Rx and Diatx) Give with food. Triiodothyr No Notes: Anthony litzy onine -27 (Same as: l 11:30: Cytomel) Thyroxine No Notes: Memori a 7-27 Take 1 l 11:30: hour [place] 00 before or 2 hours after meal; Enteral feeds may interefere with the absorption of this medication .(Same as:Levothr oid, Synthroid) heparin No Notes: Memoria 7- porcine l 06:00: heparin atorvastati No Notes: Anthony litzy n 01-17 (Same as: l 02:00: Lipitor) Acetaminoph No Notes: Anthony litzy en 325 MG / 01-17 (Same as: l Hydrocodone 00:40: [place] nn Bitartrate 00 325/5) Do 5 MG Oral not exceed Tablet 4gm/day of [[place] acetaminop 5/325] hen. Acetaminoph No 2 tab, Anthony litzy en 325 MG / 01-17 Route: PO, l Hydrocodone 00:36: Dosing Herm vin Bitartrate 00 Weight 5 MG Oral 62.358, Tablet kg, Q4H, [[place] STAT, 5/325] Start date: 01/16/19 19:36:00 CDT, Duration: 30 day, Stop date: 02/15/19 16:00:00 CDT Milk of No Notes: Memoria Magnesia 7-26 (Same as: l 23:23: Milk of Magnesia, MOM) Aspirin 81 No Notes: Memor ia MG Chewable - Take with l Tablet 22:30: food. Zofran No Notes: Memoria 7-26 (Same as: l 22:24: Zofran) MEDICATION WASTE Product Size: 4 mg Product Wasted: ___ mg Lactulose No Notes: Memori a 667 MG/ML - (Same l Oral 22:23: as:Chronul [place] Solution ac) Morphine No Notes: Memoria 7-26 (Same l 22:23: as:MORPhin e Sulfate) Metoprolol No Notes: Memor ia -26 (Same as: l 22:16: Lopressor) Push over 2 minutes Epogen No Notes: Memoria 7-26 (Same as: l 22:00: Procrit) epoetin jennifer 4000 unit/1 ml VL For dialysis only. (Epogen) WASTE: F/P - Red; E -Red MEDICATION WASTE Product Size: 4000 unit Product Wasted: ___ unit Hydralazine 2019-0 No Notes: Anthony litzy Hydrochlori 01-16 (Same as: l de 100 MG 22:00: Apresoline He rmann Oral Tablet 00 ) May interfere w/enteral feedings Take With Food Promethazin 2019-0 No 6.25 mg, Me moria e 01-16 Route: l 17:59: IVPB, [place] 00 ONCE, Dosing Weight 62.358, kg, PRN Nausea & Vomiting, Start date: 01/16/19 12:59:00 CDT Naloxone 2019-0 No 0.1 mg, Memori a 01-16 Route: l 17:59: SUB-Q, [place] 00 Q6H, Dosing Weight 62.358, kg, PRN Itching, Start date: 01/16/19 12:59:00 CDT, Duration: 30 day, Stop date: 02/15/19 12:58:00 CDT Meperidine 2019-0 No 12.5 mg, Mem oria 01-16 Route: l 17:59: IVP, [place] 00 Q30Min, Dosing Weight 62.358, kg, PRN Other -See Comment, For shivering, Start date: 01/16/19 12:59:00 CDT, Duration: 2 doses or times, Stop date: Limited # of times Ondansetron 2019-0 No 4 mg, Memor ia 01-16 Route: l 17:59: IVP, ONCE, [place] 00 Dosing Weight 62.358, kg, PRN Nausea & Vomiting, Start date: 01/16/19 12:59:00 CDT Flumazenil 2019-0 No 0.2 mg, Anthony litzy 01-16 Route: l 17:59: IVP, PRN, Dosing Weight 62.358, kg, PRN Benzodiaze pine Reversal, Initial dose, Start date: 01/16/19 12:59:00 CDT, Duration: 30 day, Stop date: 02/15/19 12:58:00 CDT Fentanyl 2018-0 No 50 Memoria 01-16 microgram, l 17:59: Route: [place] 00 IVP, Q5Min, Dosing Weight 62.358, kg, PRN Pain Score 7-10, Priority: Routine, Start date: 01/16/19 12:59:00 CDT, Duration: 2 doses or times, Stop date: Limited # of times Hydromorpho 2019-0 No 0.5 mg, Mem oria ne 01-16 Route: l 17:59: IVP, [place] 00 Q5Min, Dosing Weight 62.358, kg, PRN Pain Score 7-10, Start date: 01/16/19 12:59:00 CDT, Duration: 4 doses or times, Stop date: Limited # of times Diphenhydra 2019-0 No 12.5 mg, Me moria mine 01-16 Route: l 17:59: IVP, Drug [place] 00 form: INJ, Q6H, Dosing Weight 62.358, kg, PRN Itching, Start date: 01/16/19 12:59:00 CDT, Duration: 30 day, Stop date: 02/15/19 12:58:00 CDT Albuterol 2019-0 No 2.49 mg, Anthony litzy 0.83 MG/ML 01-16 Route: l Inhalant 17:59: NEB, [place] Solution 00 Q20Min, Dosing Weight 62.358, kg, PRN Wheezing, Priority: Routine, Start date: 01/16/19 12:59:00 CDT, Duration: 30 day, Stop date: 02/15/19 12:58:00 CDT Acetaminoph 2019-0 No 1,000 mg, M emoria en 01-16 Route: PO, l 17:59: Drug form: [place] 00 TAB, ONCE, Dosing Weight 62.358, kg, PRN Pain Score 1-3, Start date: 01/16/19 12:59:00 CDT Hydralazine 2019-0 No 10 mg, Anthony litzy 01-16 Route: l 17:59: IVP, [place] 00 Q20Min, Dosing Weight 62.358, kg, PRN Elevated BP, Start date: 01/16/19 12:59:00 CDT, Duration: 2 doses or times, Stop date: Limited # of times Labetalol 2019-0 No 10 mg, Memori a 01-16 Route: l 17:59: IVP, [place] 00 Q5Min, Dosing Weight 62.358, kg, PRN Elevated BP, Start date: 01/16/19 12:59:00 CDT, Duration: 5 doses or times, Stop date: Limited # of times esmolol No Route: IV, Anthony litzy (ANES) 01-16 Drug form: l 17:45: INJ, ONCE, Stop date: 01/16/19 12:45:00 CDT Dextrose No Route: IV, Mem oria 50% in 01-16 Stop date: l Water IV 17:45: 01/16/19 [place] nn (ANES) 12:45:00 CDT phenylephri No Route: IV, Memoria ne (ANES) 01-16 Drug form: l 17:45: INJ, ONCE, Stop date: 01/16/19 12:45:00 CDT EPINEPHrine No Route: IV, Memoria (ANES) 01-16 Drug form: l 17:43: INJ, ONCE, Stop date: 01/16/19 12:43:00 CDT calcium No Route: IV, Anthony litzy chloride 01-16 Drug form: l (ANES) 17:33: INJ, ONCE, [place] nn Stop date: 01/16/19 12:33:00 CDT propofol No Route: IV, Mem oria (ANES) 01-16 Drug form: l 16:52: INJ, ONCE, Stop date: 01/16/19 11:52:00 CDT Amidate No Route: IV, Anthony litzy (ANES) 01-16 Drug form: l 16:52: INJ, ONCE, Stop date: 01/16/19 11:52:00 CDT norepinephr No Route: IV, Memoria ine (ANES) 01-16 Drug form: l 16:52: INJ, ONCE, Stop date: 01/16/19 11:52:00 CDT lidocaine No Route: IV, Me moria (ANES) 01-16 Drug form: l 16:52: INJ, ONCE, Stop date: 01/16/19 11:52:00 CDT ondansetron No Route: IV, Memoria (ANES) 01-16 Drug form: l 16:42: INJ, ONCE, Stop date: 01/16/19 11:42:00 CDT ceFAZolin 2018-0 No Route: IV, Me moria (ANES) 01-16 Drug form: l 16:42: INJ, ONCE, Stop date: 01/16/19 11:42:00 CDT fentaNYL 2019-0 No Route: IV, Mem oria (ANES) 01-16 Drug form: l 16:37: INJ, ONCE, Stop date: 01/16/19 11:37:00 CDT vancomycin 2018-0 No Route: IV, M chrisria (ANES) 1000 01-16 Drug form: l mg 15:50: INJ, Start date: 01/16/19 10:50:00 CDT, Stop date: 01/16/19 11:50:00 CDT Sodium 2019-0 No Route: IV, Memor ia Chloride 01-16 Total l 0.9% IV 15:46: Volume: [place] (ANES) 1000 00 1,000, mL Start date: 01/16/19 10:46:00 CDT, Stop date: 01/16/19 11:46:00 CDT Insulin 2019-0 No 5 unit, Memoria regular 01-16 Route: IV, l 15:40: ONCE, Dosing Weight 62.358, kg, Start date: 01/16/19 10:40:00 CDT, Stop date: 01/16/19 10:40:00 CDT Dextrose 2019-0 No 12.5 gm, Memor ia 01-16 Route: l 15:39: IVPB, ONCE, Dosing Weight 62.358, kg, Start date: 01/16/19 10:39:00 CDT, Stop date: 01/16/19 10:39:00 CDT Calcium 2019-0 No 1,000 mL, Memor ia Chloride 01-16 Rate: 25 l 0.0014 13:46: ml/hr, [place] MEQ/ML / 00 Infuse Potassium over: 40 Chloride hr, Route: 0.004 IV, Dosing MEQ/ML / Weight Sodium 62.358 kg, Chloride Total 0.103 Volume: MEQ/ML / 1,000, Sodium Start Lactate date: 0.028 01/16/19 MEQ/ML 8:46:00 Injectable CDT, Solution Duration: 1 day, Stop date: 01/17/19 8:45:00 CDT, 1.68, m2, 0 Sodium 2019- No 1,000 mL, Memori a Chloride 7-26 Rate: 25 l 0.9% IV 13:46: ml/hr, [place] 1,000 mL 00 Infuse over: 40 hr, Route: IV, Dosing Weight 62.358 kg, Total Volume: 1,000, Start date: 01/16/19 8:46:00 CDT, Duration: 1 day, Stop date: 01/17/19 8:45:00 CDT, 1.68, m2, 0 Vitamin B12 2019- Yes monthly, 0 Memoria 7-25 Refill(s) l 18:31: [place] 00 allopurinol 2018- Yes 100 mg = 1 Memoria 100 mg oral 7-25 tab, PO, l tablet 18:30: Daily, # [place] 00 90 tab, 1 Refill(s) Aspirin 81 2019- Yes 81 mg = 1 Me moria MG Chewable 7-25 tab, PO, l Tablet 18:30: Daily, [place] 00 tab, 0 Refill(s) 24 HR 2019 No 30 mg = 1 Memoria Nifedipine 7-25 tab, PO, l 30 MG 18:30: Daily, # [place] Extended 00 30 tab, 0 Release Refill(s) Tablet [Nifedical] paricalcito Yes 1 Memori a l 0.001 MG 7-25 microgram l Oral 18:29: = 1 cap, [place] Capsule 00 PO, Daily, # 30 cap, 0 Refill(s) levothyroxi Yes 50 Memori a ne 50 mcg 7-25 microgram l (0.05 mg) 18:29: = 1 tab, Herm vin oral tablet 00 PO, Daily, # 30 tab, 0 Refill(s) liothyronin Yes 5 Memori a e 5 mcg 7-25 microgram l oral tablet 18:28: = 1 tab, He rmann 00 PO, Daily, # 30 tab, 0 Refill(s) Ferate 256 2018- Yes 256 mg = 1 M emoria mg (28 mg 7-25 tab, PO, l elemental 18:28: Daily, 0 Herm vin iron) oral 00 Refill(s) tablet Hydralazine Yes 100 mg = 1 Memoria Hydrochlori 7-25 tab, PO, l de 100 MG 18:27: TID, # 90 Her cardenas Oral Tablet 00 tab, 3 Refill(s) atorvastati Yes 40 mg = 1 Keerthi emoria n 40 mg 7-25 tab, PO, l oral tablet 18:27: Bedtime, # [place] 00 30 tab, 0 Refill(s) Clonidine Yes 0.3 mg = 1 moria Hydrochlori 7-25 tab, PO, l de 0.3 MG 18:25: TID, # 60 Her cardenas Oral Tablet 00 tab, 1 Refill(s) Vancomycin No 2001 mg: Me moria 7-25 infuse l 18:00: over 2.5 [place] 00 hours For adult patients only: Round to nearest 250 mg per Medical Staff approval MEDICATION WASTE Product Size: 1000 mg Product Wasted: ___ mg Ancef + No Notes: Memoria sterile 7-25 (Same As: l water 20 mL 18:00: Ancef, Herm vin 00 Kefzol) MEDICATION WASTE Product Size: 1000 mg Product Wasted: ___ mg Vital Signs Vital Name Observation Time Observation Value Comments Source Heart Rate 2019-01-18 16:07:00 [facility] [place] Temperature Oral (F) 2019-01-18 16:07:00 98.2 F [facility] [place] Respitory Rate 2019-01-18 16:07:00 Memori al [place] Systolic (mm Hg) 2019-01-18 16:07:00 Anthony rial [place] Diastolic (mm Hg) 2019-01-18 16:07:00 Mem orial [place] Respitory Rate 2019-01-18 14:03:00 Memori al [place] Systolic (mm Hg) 2019-01-18 12:32:00 Anthony rial [place] Diastolic (mm Hg) 2019-01-18 12:32:00 Mem orial [place] Temperature Oral (F) 2019-01-18 12:32:00 98.2 F [facility] [place] Heart Rate 2019-01-18 12:32:00 [facility] [place] Respitory Rate 2019-01-18 12:32:00 Memori al [place] Temperature Oral (F) 2019-01-18 08:54:00 98.4 F [facility] [place] Heart Rate 2019-01-18 08:54:00 [facility] [place] Systolic (mm Hg) 2019-01-18 08:54:00 Anthony rial [place] Diastolic (mm Hg) 2019-01-18 08:54:00 Mem orial [place] BMI Calculated 2019-01-16 13:43:00 [facility] al [place] Weight 2019-01-16 13:43:00 [facility] [place] Height 2019-01-16 13:43:00 160.02 cm [facility] [place] Weight 2019-01-15 17:57:00 [facility] [place] BMI Calculated 2019-01-15 17:57:00 Memori al [place] Height 2019-01-15 17:57:00 162.56 cm [facility] [place] Temperature Oral (F) 2012-05-19 16:43:00 96.3 F [facility] [place] Heart Rate 2012-05-19 16:43:00 [facility] [place] Respitory Rate 2012-05-19 16:43:00 Memori al [place] Systolic (mm Hg) 2012-05-19 16:43:00 Anthony rial [place] Diastolic (mm Hg) 2012-05-19 16:43:00 Mem orial [place] Weight 2012-05-19 16:43:00 [facility] [place] Height 2012-05-19 16:43:00 160.02 cm [facility] [place] Temperature Oral (F) 2012-01-28 14:02:00 97.8 F [facility] [place] Systolic (mm Hg) 2012-01-28 14:02:00 Anthony rial [place] Heart Rate 2012-01-28 14:02:00 [facility] [place] Respitory Rate 2012-01-28 14:02:00 Memori al [place] Diastolic (mm Hg) 2012-01-28 14:02:00 Mem orial [place] Weight 2012-01-28 14:02:00 [facility] [place] Height 2012-01-28 14:02:00 160.02 cm [facility] [place] Respitory Rate 2012-01-10 14:26:00 Memori al [place] Heart Rate 2012-01-10 14:26:00 [facility] [place] Temperature Oral (F) 2012-01-10 14:26:00 98.3 F [facility] [place] Diastolic (mm Hg) 2012-01-10 14:26:00 Mem orial [place] Systolic (mm Hg) 2012-01-10 14:26:00 Anthony rial [place] Weight 2012-01-10 14:26:00 [facility] [place] Height 2012-01-10 14:26:00 160.02 cm [facility] [place] Procedures Procedure Date / Time Performed Performing Clinician Sourc e Colectomy [facility] [place] Thyroidectomy [facility] [place] Total hysterectomy [facility] Encounters Start End Encounter Admission Attending Care Care Encounter Source Date/Time Date/Time Type Type Clinicians Facility Department ID 2019-08-31 [id number] 09:50:05 2020-05-26 2020-05-26 Outpatient [id number] [facility] 07:45:00 07:45:[address] [facility] 2020-05-17 2020-05-17 Outpatient [id number] [facility] 08:24:00 08:24:[address] [facility] 2020-04-06 2020-04-05 Inpatient E [facility] [id number] [facility] 12:24:00 20:31:[address] [facility] 2019-03-10 2019-03-10 Outpatient [facility] [id number] [facility] 10:07:00 10:07:[address] [facility] 2019-01-16 2019-01-18 Outpatient Ti, [facility] [id number] 13:29:00 15:39:00 Blaine Hampton Oseas 2019-01-16 2019-01-16 Outpatient [facility] [id number] [facility] 13:29:00 13:29:[address] [facility] Results Test Description Test Time Test Comments Results Result Comments Source CHEM PANEL 2019-01-18 13 [facility] [place] 10:53:00 CHEM PANEL 2019-01-18 141 [facility] [place] 10:53:00 CHEM PANEL 2019-01-18 3.85 [facility] [place] 10:53:00 CHEM PANEL 2019-01-18 102 [facility] [place] nn 10:53:00 CHEM PANEL 2019-01-18 19 [facility] [place] nn 10:53:00 CHEM PANEL 2019-01-18 8.6 [facility] [place] nn 10:53:00 CHEM PANEL 2019-01-18 107 [facility] [place] nn 10:53:00 CHEM PANEL 2019-01-18 29 [facility] [place] nn 10:53:00 CHEM PANEL 2019-01-18 3.7 [facility] [place] nn 10:53:00 CHEM PANEL 2019-01-18 8.7 [facility] [place] 10:53:00 HEMATOLOGY 2019-01-18 64.4 [facility] [place] 10:53:00 HEMATOLOGY 2019-01-18 3.7 [facility] [place] nn 10:53:00 HEMATOLOGY 2019-01-18 21.0 [facility] [place] nn 10:53:00 HEMATOLOGY 2019-01-18 0.7 [facility] [place] 10:53:00 HEMATOLOGY 2019-01-18 10.2 [facility] [place] nn 10:53:00 HEMATOLOGY 2019-01-18 4.5 [facility] [place] nn 10:53:00 HEMATOLOGY 2019-01-18 0.7 [facility] [place] nn 10:53:00 HEMATOLOGY 2019-01-18 0.3 [facility] [place] nn 10:53:00 HEMATOLOGY 2019-01-18 1.5 [facility] [place] nn 10:53:00 HEMATOLOGY 2019-01-18 7.0 [facility] [place] nn 10:53:00 HEMATOLOGY 2019-01-18 2.62 [facility] [place] nn 10:53:00 HEMATOLOGY 2019-01-18 7.6 [facility] [place] nn 10:53:00 HEMATOLOGY 2019-01-18 22.6 [facility] [place] nn 10:53:00 HEMATOLOGY 2019-01-18 86.4 [facility] [place] nn 10:53:00 HEMATOLOGY 2019-01-18 33.6 [facility] [place] nn 10:53:00 HEMATOLOGY 2019-01-18 10:53:00 Test Item Value Reference Range Interpretation Comme nts MCH (test code = MCH) 29.0 pg 27.0-31.0 [facility] [id number] 10:53:0015.8[facility]ann[facility]MATOLOGY 2019-01-18 10:53:009.7[facility] QefkqfrBFOMAUMEYW6316-09-89 10:53:0098[facility] B[facility] [id number] 11:45:00Product available 4(01/17/19 6:45 AM) [facility] [id number] 10:38:0010[facility] HermannCHEM PANEL 2019-01-17 10:38:0034[facility]annCHEM [id number] 10:38:005.10[facility]annCHE[facility] [id number] 10:38:36849Vbcqzoev HermannCHEM ZPTJE3182-39-17 10:38:80108Oomfkete HermannCHEM [id number] 10:38:005.2[facility]annCHEM [id number] 10:38:74532Vroabjnt HermannCHEM [id number] 10:38:0025 [facility]annCHE[facility] [id number] 10:38:008.5[facility] HermannCHEM PANEL 2019-01-17 10:38:0015.2[facility] ZindgzuKRFSFZTGFQ1932-42-72 10:38:000.8[facility] MbtzpktQWSYSLPBHF8107-57-92 10:38:0070.0[facility] UkcymqqTQSNSRKOMW5398-11-91 10:38:008.2[facility] UfagusgCQJNWUZVMT0814-92-58 10:38:0019.0[facility] [place] VTSXQMOYRZ9592-14-61 10:38:002.0[facility] WzxckfvPMHZGMLNCG2145-55-17 10:38:004.3 [facility] XxyzhvtEJXJZCTWXA7768-83-62 10:38:000.5[facility] HermannHEMATOLOGY 2019-01-17 10:38:001.2[facility] AmkyugvRMMXXFROPH3291-32-40 10:38:000.1[facility] AoqdsuxULQIZAMHPY8148-38-42 10:38:0021.1[facility] HexdwykRCCMKZIZOK8466-00-05 10:38:0087.7[facility] RmtwkqzXVJAZLNUQO1601-56-65 10:38:006.8[facility] [place] [id number] 10:38:00 Test Item Value Reference Range Interpretation Comments MCH (test code = MCH) 28.4 pg 27.0-31.0 [facility] [id number] 10:38:0016.6[facility]annHEMATOLOGY 2019-01-17 10:38:90138Bifrtloz RiheoseBPUTEWZYLC7662-62-72 10:38:009.7[facility] JxphwmdCDFOSAQVJG9793-04-07 10:38:0032.4[facility] YerdfrpCZQEZPTVQI4431-39-61 10:38:006.1[facility] ZvwxncsOREXNFYKSX2834-92-62 10:38:002.41[facility] [place] NVBFLVXHOY2994-95-47 19:50:00Negative *NA*(01/16/19 2:50 PM)[facility] [place] [id number] 19:50:00<3.1[facility] JfdxhfxMJQEKMSDSN2670-99-28 19:50:00Negative *NA*(01/16/19 2:50 PM)[facility] LyqfvogKMUUOFGVME8212-88-03 19:50:00Negative *NA*(01/16/19 2:50 PM)[facility]annCHEM [id number] 19:08:568[facility]annCHEM IKGNH5145-02-65 19:08:563.3[facility]annCHEM [id number] 19:08:06173Kkteqhqr HermannCHEM TLKAR0141-00-50 19:08:5623 [facility]annCHE[facility] [id number] 19:08:5610.1[facility] HermannCHEM PANEL 2019-01-16 19:08:5612.3[facility]annCHE[facility] WHNEW2932-77-64 19:08:16809Vvbwwmem HermannCHEM PKVMO1724-57-52 19:08:5647[facility]annCHE[facility] ODBUA2225-11-13 19:08:565.77[facility]annCHE[facility] LJHEH4940-80-81 19:08:70503Txeosfbc [place] KUVHZYKCHQ5823-37-90 19:08:5626.2[facility] OucwjcxKLXDGOTHFW5508-63-20 19:08:56 8.3[facility] IvbbjrzAHVHQLOMQY4803-00-46 19:08:562.98[facility]annHEMATOLOGY 2019-01-16 19:08:564.6[facility] IimfdzkQKOORKMHXI2319-30-24 19:08:5616.7[facility] HmmaajcYJNMYUSKFX1089-40-26 19:08:5631.8[facility] GsbzgrnODODROYRCU7181-60-81 19:08:56 Test Item Value Reference Range Interpretation Comments MCH (test code = MCH) 28.0 pg 27.0-31.0 [facility] AyicpfoJYWNPGGJFJ6093-60-43 19:08:5687.9[facility]annHEMATOLOGY 2019-01-16 19:08:569.1[facility] VgnevjdHNTGEAILKH0701-96-80 19:08:39377Iazxdfew UmqhdzdBRUUHCEXRX8492-82-34 19:08:560.1[facility] LtpmlonWJKHDOVMCB4365-48-71 19:08:560.6[facility] QaoqsteQGKQPEMAKM3099-63-86 19:08:560.9[facility] MZCRYRKROA1061-42-87 19:08:5619.1[facility] RwqprtlFQKGCWLMNB8133-51-56 19:08:56 65.9[facility] FpteqmaXSAJXBICWY6769-72-00 19:08:562.3[facility]annHEMATOLOGY 2019-01-16 19:08:5612.1[facility] HbxdfnqWWTTUNIQAD4203-84-78 19:08:563.1[facility] GmszqueCZDBYAQTDR0530-62-81 19:08:560.6[facility]BL[facility] RESULTS 2019-01-16 14:35:00Negative (01/16/19 9:35 AM)[facility] 14:35[facility]00 Test Item Value Reference Range Interpretation Comments PT (test code = PT) 14.1 s 12.0-14.7 [facility] CenterTkfzxakWITOCRJPKO0817-38-46 14:35:00 Test Item Value Reference Range Interpretation Comments INR (test code = INR) 1.11 1 0.85-1.17 [facility] CenterYebcveuXZVSCGEFMO6561-75-24 14:35:00 Test Item Value Reference Range Interpretation Comments PTT (test code = PTT) 28.3 s 22.9-35.8 [facility]
[2020-06-17] MEDS ORDERED: cloNIDine HCL 0.1 MG TAB ONE (12:19)
--- NOTE | 2020-06-17 12:23 | RAD REPORT ---
EXAM DESCRIPTION: RAD - Chest Single View - 06/17/2020 12:08 pm CLINICAL HISTORY: HTN, Recent Headache Chest pain. COMPARISON: Abdomen 1 View (KUB) dated 02/17/2019; Chest Single View dated 01/29/2019; Chest Single Vie w dated 01/27/2019; Abdomen 1 View (KUB) dated 01/22/2019 FINDINGS: Portable technique limits examination quality. Moderate bilateral pulmonary opacities noted suspicious for pulmonary edema. The heart is moderately enlarged. No displaced fractures. IMPRESSION: Moderate volume overload pattern.
[2020-06-17 13:23] LABS: Potassium 3.3 mmol/L (3.5-5.1)
[2020-06-17 13:24] LABS: Albumin 3.9 g/dL (3.4-5.0); Bilirubin Direct 0.3 mg/dL (0-0.2); Bilirubin Total 1.3 mg/dL (0.2-1.0); Protein, Total 7.3 g/dL (6.4-8.2); Troponin (Emerg Dept Use Only) 0.06 ng/mL (0.0-0.045)
--- NOTE | 2020-06-17 13:24 | RAD REPORT ---
EXAM DESCRIPTION: CT - Head Brain Wo Cont - 06/17/2020 1:00 pm CLINICAL HISTORY: HTN;Headache Headache, drowsiness, hypertension COMPARISON: Head Brain Wo Cont dated 01/27/2019 TECHNIQUE: All CT scans are performed using dose optimization technique as appropriate and may inclu de automated exposure control or mA/KV adjustment according to patient size. FINDINGS: No intracranial hemorrhage, hydrocephalus or extra-axial fluid collection.Moderate general ized brain atrophy is present with advanced periventricular and deep white matter chronic microvascul ar ischemic changes.No areas of brain edema or evidence of midline shift. Vertebral atherosclerosis. The paranasal sinuses and mastoids are clear. The calvarium is intact. IMPRESSION: No acute intracranial abnormality.
[2020-06-17] MEDS ORDERED: HYDRALAZINE HCL 20 MG/ML VIAL ONE (14:21)
[2020-06-17 14:50] LABS: Absolute Lymphocytes (CBC) 0.4 K/uL (0.7-4.9); Basophils % 1.2 % (0-1.3); Hematocrit 31.1 % (36.0-45.0); Lymphocytes % 12.4 % (15.3-44.8); MPV 10.7 fL (7.6-11.3); Protime INR 1.03; RBC Red Blood Cell Count 3.48 M/uL (3.86-4.86)
--- NOTE | 2020-06-17 15:15 | EDPHYS ---
Physician Documentation [facility] Name: Alma Rosa Corral Age: 64 yrs Sex: Female : 1955 Arrival Date: 06/17/2020 Time: 11:23 Bed 13 Private MD: ED Physician Arnold Caro HPI: 06/17 13:12 This 64 yrs old Black Female presents to ER via Wheelchair with complaints of High kdr Blood Pressure. 13:12 The patient has elevated blood pressure and discovered this at home. Onset: The kdr symptoms/episode began/occurred gradually, 7 day(s) ago. Modifying factors: The symptoms are aggravated by Nothing, The symptoms are alleviated by Nothing. Associated signs and symptoms: Pertinent positives: The patient had a SUÁREZ a few days ago but nothing recently. Severity of symptoms: At its worst the blood pressure was severe, earlier today. The patient has experienced similar episodes in the past, a few times. The patient has not recently seen a physician. Last Saturday the patient was at dialysis and it was apparently normal but sine, at home her SBP has been over 1200 when chcecked.. Historical: - Allergies: 11:31 amlodipine; aa5 - PMHx: 11:31 CVA; DYSPHAGIA; Hypertension; Peritoneal Dialysis; Thyroid problem; aa5 - PSHx: 11:31 Hysterectomy; partial thyroidectomy; sp cath; Dialysis fistula to left arm; aa5 Peritoneal dialysis access; - Immunization history:: Adult Immunizations up to date. - Social history:: Smoking status: Patient denies any tobacco usage or history of. ROS: 13:12 Constitutional: Negative for fever, chills, and weight loss, Eyes: Negative for injury, kdr pain, redness, and discharge, ENT: Negative for injury, pain, and discharge, Neck: Negative for injury, pain, and swelling, Cardiovascular: Negative for chest pain, palpitations, and edema, Respiratory: Negative for shortness of breath, cough, wheezing, and pleuritic chest pain, Abdomen/GI: Negative for abdominal pain, nausea, vomiting, diarrhea, and constipation, Back: Negative for injury and pain, : Negative for injury, bleeding, discharge, and swelling, MS/Extremity: Negative for injury and deformity, Skin: Negative for injury, rash, and discoloration, Neuro: Negative for headache, weakness, numbness, tingling, and seizure activity. Psych: Negative for depression, anxiety, suicide ideation, homicidal ideation, and hallucinations, Allergy/Immunology: Negative for hives, rash, and allergies, Endocrine: Negative for neck swelling, polydipsia, polyuria, polyphagia, and marked weight changes, Hematologic/Lymphatic: Negative for swollen nodes, abnormal bleeding, and unusual bruising. Exam: 13:12 Constitutional: This is a well developed, well nourished patient who is awake, alert, kdr and in no acute distress. Head/Face: Normocephalic, atraumatic. Eyes: Pupils equal round and reactive to light, extra-ocular motions intact. Lids and lashes normal. Conjunctiva and sclera are non-icteric and not injected. Cornea within normal limits. Periorbital areas with no swelling, redness, or edema. Neck: Trachea midline, no thyromegaly or masses palpated, and no cervical lymphadenopathy. Supple, full range of motion without nuchal rigidity, or vertebral point tenderness. No Meningismus. Chest/axilla: Normal chest wall appearance and motion. Nontender with no deformity. No lesions are appreciated. Cardiovascular: Regular rate and rhythm with a normal S1 and S2. No gallops, murmurs, or rubs. Normal PMI, no JVD. No pulse deficits. Respiratory: Lungs have equal breath sounds bilaterally, clear to auscultation and percussion. No rales, rhonchi or wheezes noted. No increased work of breathing, no retractions or nasal flaring. Abdomen/GI: Soft, non-tender, with normal bowel sounds. No distension or tympany. No guarding or rebound. No evidence of tenderness throughout. Back: No spinal tenderness. No costovertebral tenderness. Full range of motion. Skin: Warm, dry with normal turgor. Normal color with no rashes, no lesions, and no evidence of cellulitis. MS/ Extremity: Pulses equal, no cyanosis. Neurovascular intact. Full, normal range of motion. Psych: Awake, alert, with orientation to person, place and time. Behavior, mood, and affect are within normal limits. 13:12 Abdomen/GI: Inspection: Peritoneal dialysis cath in place. 13:12 Neuro: Orientation: is normal, Mentation: is normal, Cranial nerves: no acute changes, Motor: no acute changes, moves all fours, strength is normal, Sensation: no obvious gross deficits, no acute changes. 13:59 ECG was reviewed by the Attending Physician. kdr Vital Signs: 11:31 BP 213 / 75; Pulse 60; Resp 16 S; Temp 98.3(O); Pulse Ox 100% on R/A; aa5 12:34 BP 208 / 80; Pulse 60; Resp 20 S; Pulse Ox 100% on R/A; ca1 13:25 BP 208 / 74; Pulse 55; Resp 18 S; Pulse Ox 100% on R/A; ca1 14:09 BP 221 / 74; Pulse 65; Resp 18 S; Pulse Ox 100% on R/A; ca1 14:50 BP 183 / 69; Pulse 66; Resp 17 S; Pulse Ox 100% on R/A; ca1 15:34 BP 167 / 76; Pulse 64; Resp 16 S; Pulse Ox 100% on R/A; ca1 16:25 BP 154 / 69; Pulse 61; Resp 15 S; Pulse Ox 100% on R/A; ca1 MDM: 15:14 Patient medically screened. kdr 17:15 Data reviewed: vital signs, nurses notes, lab test result(s), radiologic studies. kdr Counseling: I had a detailed discussion with the patient and/or guardian regarding: the historical points, exam findings, and any diagnostic results supporting the discharge/admit diagnosis, lab results, radiology results, the need for outpatient follow up. 06/17 11:54 Order name: Basic Metabolic Panel; Complete Time: 14:02 [facility] 06/17 11:54 Order name: CBC with Diff; Complete Time: 15:04 [facility] 06/17 11:54 Order name: LFT's; Complete Time: 14:02 [facility] 06/17 11:54 Order name: Magnesium; Complete Time: 14:02 [facility] 06/17 11:54 Order name: NT PRO-BNP; Complete Time: 14:02 [facility] 06/17 11:54 Order name: PT-INR; Complete Time: 15:04 [facility] 06/17 11:54 Order name: Troponin (emerg Dept Use Only); Complete Time: 14:02 [facility] 06/17 11:54 Order name: XRAY Chest (1 view); Complete Time: 14:02 [facility] 06/17 11:54 Order name: EKG; Complete Time: 11:55 [facility] 06/17 11:54 Order name: Cardiac monitoring; Complete Time: 12:19 kdr 06/17 11:55 Order name: CT Head Brain wo Cont; Complete Time: 14:02 kdr 06/17 11:54 Order name: EKG - Nurse/Tech; Complete Time: 12:30 kdr 06/17 11:54 Order name: IV Saline Lock; Complete Time: 12:19 kdr 06/17 11:54 Order name: Labs collected and sent; Complete Time: 12:57 kdr 06/17 11:54 Order name: O2 Per Protocol; Complete Time: 12:19 kdr 06/17 11:54 Order name: O2 Sat Monitoring; Complete Time: 12:19 kdr 06/17 13:09 Order name: Labs - recollect needed: recollect blue and purple top; Complete Time: 14:44bd EC:59 Rate is 58 beats/min. Rhythm is regular, Sinus bradycardia with PACs. QRS Castaner is kdr Normal. MS interval is normal. QRS interval is normal. QT interval is normal. No Q waves. Clinical impression: NSR w/ Non-specific ST/T Changes and Sinus bradycardia. Administered Medications: 12:19 Drug: cloNIDine 0.2 mg Route: PO; ca1 14:00 Follow up: Response: No adverse reaction; Blood pressure is unchanged ca1 14:09 Drug: hydrALAZINE 10 mg Route: IV; Rate: calculated rate; Site: right hand; ca1 15:17 Drug: Potassium Chloride 20 mEq Route: PO; ca1 15:29 Follow up: Response: No adverse reaction; Blood pressure is lowered ca1 15:30 Follow up: Response: No adverse reaction ca1 Disposition: 06/17/20 15:14 Discharged to Home. Impression: Hypertensive heart disease, End stage renal disease, Anemia, unspecified, Moderate Volume Overload. - Condition is Stable. - Discharge Instructions: Anemia, Nonspecific, Hypertension, [id number], Peritoneal Dialysis. - Prescriptions for Clonidine 0.1 mg Oral Tablet - take 1 tablet by ORAL route every 12 hours; 30 tablet. Lasix 80 mg Oral Tablet - take 1 tablet by ORAL route 2 times per day; 30 tablet. - Medication Reconciliation Form, Thank You Letter form. - Follow up: Private Physician; When: 2 - 3 days; Reason: If symptoms return, Further diagnostic work-up, Recheck today's complaints, Continuance of care, Re-evaluation by your physician. - Problem is an ongoing problem. - Symptoms have improved. Signatures: Dispatcher [employer] EDMS EstebanClaudia leonard Arnold Brand MD MD kdr Alka Wilson RN RN aa5 Ileaan Ferreira RN RN ca1 Corrections: (The following items were deleted from the chart) 16:26 15:14 06/17/2020 15:14 Discharged to Home. Impression: Hypertensive heart disease; End ca1 stage renal disease; Anemia, unspecified; Moderate Volume Overload. Condition is Stable. Forms are Medication Reconciliation Form, Thank You Letter, Antibiotic Education, Prescription Opioid Use. Follow up: Private Physician; When: 2 - 3 days; Reason: If symptoms return, Further diagnostic work-up, Recheck today's complaints, Continuance of care, Re-evaluation by your physician. Problem is an ongoing problem. Symptoms have improved. kdr
--- NOTE | 2020-06-17 15:15 | ER ---
Nurse's Notes [facility] Name: Alma Rosa Corral Age: 64 yrs Sex: Female : 1955 Arrival Date: 06/17/2020 Time: 11:23 Bed 13 Private MD: Diagnosis: Hypertensive heart disease;End stage renal disease;Anemia, unspecified;Moderate Volume Overload Presentation: 06/17 11:31 Chief complaint: Pt's reports elevated blood pressure (systolic >200) for aa5 approximately 4 days, today systolic 211. Pt's states "we have been doing peritoneal dialysis at home for about a week now and the doctor called her in some carvedilol but it's not working, my hope is that we can get her back on clonidine because she used to take it for like 14 years but they took her off of it about 6 months ago because her blood pressure would come down too much, like 70/40 and she would pass out". Pt's also reports headache for a few days, pt currently denies SUÁREZ. 11:31 Coronavirus screen: Client denies travel out of the [place] in the last 14 days. At this aa5 time, the client does not indicate any symptoms associated with coronavirus-19. Ebola Screen: Patient negative for fever greater than or equal to 101.5 degrees Fahrenheit, and additional compatible Ebola Virus Disease symptoms. Initial Sepsis Screen: Does the patient meet any 2 criteria? No. Patient's initial sepsis screen is negative. Does the patient have a suspected source of infection? No. Patient's initial sepsis screen is negative. Risk Assessment: Do you want to hurt yourself or someone else? Unable to obtain. Onset of symptoms was May 2020. 11:31 Acuity: LILIBETH 2 aa5 11:31 Method Of Arrival: Wheelchair aa5 Historical: - Allergies: 11: amlodipine; aa5 - PMHx: 11:31 CVA; DYSPHAGIA; Hypertension; Peritoneal Dialysis; Thyroid problem; aa5 - PSHx: 11:31 Hysterectomy; partial thyroidectomy; sp cath; Dialysis fistula to left arm; aa5 Peritoneal dialysis access; - Immunization history:: Adult Immunizations up to date. - Social history:: Smoking status: Patient denies any tobacco usage or history of. Screenin:00 Abuse screen: Denies threats or abuse. Denies injuries from another. Nutritional ca1 screening: No deficits noted. Tuberculosis screening: No symptoms or risk factors identified. Fall Risk IV access (20 points). Gait- Weak (10 pts.). Total Chavarria Fall Scale indicates Low Risk Score (25-44 pts). Fall prevention measures have been instituted. Side Rails Up X 2 As available Patient and Family Educated on Fall Prevention Program and strategies. Assessment: 12:00 General: Appears in no apparent distress. comfortable, Behavior is calm, cooperative, ca1 appropriate for age. Pain: Denies pain. Neuro: Level of Consciousness is awake, alert, obeys commands, Oriented to person, place, time, situation. Cardiovascular: Heart tones S1 S2 present Capillary refill < 3 seconds Patient's skin is warm and dry. Rhythm is atrial fibrillation Dialysis shunt: in the left arm, with palpable thrill, with auscultated bruit. Respiratory: Airway is patent Respiratory effort is even, unlabored, Respiratory pattern is regular, symmetrical, Breath sounds are clear bilaterally. GI: Abdomen is flat, non-distended, Peritoneal dialysis catheter capped. Site is clean and dry. Bowel sounds present X 4 quads. Abd is soft and non tender X 4 quads. : No signs and/or symptoms were reported regarding the genitourinary system. EENT: No signs and/or symptoms were reported regarding the EENT system. Derm: Skin is intact, is healthy with good turgor, Skin is pink, warm \\T\\ dry. Musculoskeletal: Circulation, motion, and sensation intact. Capillary refill < 3 seconds. 13:11 Reassessment: Patient appears in no apparent distress at this time. Patient and/or ca1 family updated on plan of care and expected duration. Pain level reassessed. Patient is alert, oriented x 3, equal unlabored respirations, skin warm/dry/pink. 14:09 Reassessment: Patient appears in no apparent distress at this time. Patient and/or ca1 family updated on plan of care and expected duration. Pain level reassessed. Patient is alert, oriented x 3, equal unlabored respirations, skin warm/dry/pink. 14:50 Reassessment: Patient appears in no apparent distress at this time. Patient and/or ca1 family updated on plan of care and expected duration. Pain level reassessed. Patient is alert, oriented x 3, equal unlabored respirations, skin warm/dry/pink. 15:34 Reassessment: Patient appears in no apparent distress at this time. Patient and/or ca1 family updated on plan of care and expected duration. Pain level reassessed. Patient is alert, oriented x 3, equal unlabored respirations, skin warm/dry/pink. Discharge pending call back from Dr. Grimes per Dr. Caro. 16:25 Reassessment: Patient appears in no apparent distress at this time. Patient is alert, ca1 oriented x 3, equal unlabored respirations, skin warm/dry/pink. Vital Signs: 11:31 BP 213 / 75; Pulse 60; Resp 16 S; Temp 98.3(O); Pulse Ox 100% on R/A; aa5 12:34 BP 208 / 80; Pulse 60; Resp 20 S; Pulse Ox 100% on R/A; ca1 13:25 BP 208 / 74; Pulse 55; Resp 18 S; Pulse Ox 100% on R/A; ca1 14:09 BP 221 / 74; Pulse 65; Resp 18 S; Pulse Ox 100% on R/A; ca1 14:50 BP 183 / 69; Pulse 66; Resp 17 S; Pulse Ox 100% on R/A; ca1 15:34 BP 167 / 76; Pulse 64; Resp 16 S; Pulse Ox 100% on R/A; ca1 16:25 BP 154 / 69; Pulse 61; Resp 15 S; Pulse Ox 100% on R/A; ca1 ED Course: 11:23 Patient arrived in ED. as 11:31 Arm band placed on Patient placed in an exam room, on a stretcher. aa5 11:34 Juhi Carty RN is Primary Nurse. ll1 11:35 Arnold Caro MD is Attending Physician. kdr 11:56 Triage completed. aa5 12:00 Patient has correct armband on for positive identification. Placed in gown. Bed in low ca1 position. Call light in reach. Side rails up X2. youth nutritional monitor on. Pulse ox on. NIBP on. Warm blanket given. 12:00 No provider procedures requiring assistance completed. Initial lab(s) drawn. Inserted ca1 saline lock: 20 gauge in right hand, using aseptic technique. Blood collected. 12:08 XRAY Chest (1 view) In Process Unspecified. EDMS 13:01 CT Head Brain wo Cont In Process Unspecified. EDMS 16:26 IV discontinued, intact, bleeding controlled, No redness/swelling at site. Pressure ca1 dressing applied. Administered Medications: 12:19 Drug: cloNIDine 0.2 mg Route: PO; ca1 14:00 Follow up: Response: No adverse reaction; Blood pressure is unchanged ca1 14:09 Drug: hydrALAZINE 10 mg Route: IV; Rate: calculated rate; Site: right hand; ca1 15:17 Drug: Potassium Chloride 20 mEq Route: PO; ca1 15:29 Follow up: Response: No adverse reaction; Blood pressure is lowered ca1 15:30 Follow up: Response: No adverse reaction ca1 Outcome: 15:14 Discharge ordered by MD. kdr 16:26 Discharged to home via wheelchair, with significant other. ca1 16:26 Condition: stable 16:26 Discharge instructions given to patient, Instructed on discharge instructions, follow up and referral plans. medication usage, Demonstrated understanding of instructions, follow-up care, medications, Prescriptions given X 2. 16:26 Patient left the ED. ca1 Signatures: Dispatcher [employer] EDAK Arnold Caro MD MD kdr Martinez, Amelia as Calderon, Audri, RN RN aa5 Ileana Ferreira RN RN ca1 Juhi Carty RN RN ll1 Corrections: (The following items were deleted from the chart) 11:52 11:34 Arm band placed on Patient placed in an exam room, on a stretcher, ll1 aa5 12:21 12:00 Cardiovascular: Heart tones S1 S2 present Capillary refill < 3 seconds Patient's ca1 skin is warm and dry. Rhythm is atrial fibrillation ca1
[2020-06-17] MEDS ORDERED: POTASSIUM CL SA 10 MEQ TAB PO ONE (15:31)
[2020-06-17 16:31] VITALS: TEMP 98.3; O2SAT 100
[2020-06-17 16:38] VITALS: BP 154/69
== END 2020-06-17 16:26 | disposition home or self-care (01) ==
LOC: ER 11:22
DX: I13.11 Hypertensive heart and chronic kidney disease without heart failure, with stage 5 chronic kidney disease, or end stage renal disease (principal); E87.70 Fluid overload, unspecified; N18.6 End stage renal disease; D63.1 Anemia in chronic kidney disease; Z99.2 Dependence on renal dialysis; Z88.8 Allergy status to other drugs, medicaments and biological substances
CPT/HCPCS: 93005; 85025; 80048; 36415; 83735; 85610; 80076; 84484; 83880; 70450; 71045; 96374; 99284; J0360

== ENCOUNTER 2020-06-20 01:56 | Emergency (ER) | payer OTHER ==
--- OUTSIDE RECORDS SUMMARY | 2020-06-20 02:00 | XMS REPORT | Continuity of Care Document ---
:1955 Author Organization DNage Information [employer] Care Team Providers Name Role Phone SDI-Solution Unavailable Un available Problems Problem Status Onset Classification Date Comments Sourc e Date Reported UNK Active 01/16/20 19 [place] CKD Active 01/16/20 19 [place] 620.2 - OVARIAN Active 04/08/20 O PID CYST [address] FOLLOW UP Active 03/12/[address] CANCER OF RECTAL Active 01/10/[address] COLON CANCER Active 12/27/[address] Malignant tumor of Active Problem 01/20/2019 colon (disorder) [facility] the[facility] Cerebrovascular Resolved Problem 01/20/2019 accident [place] (disorder) History of - CVA Active Problem 01/20/2019 (context-dependent [place] category) Hypertensive Active Problem 01/20/2019 disorder, systemic [place] arterial (disorder) Hyperlipidemia Resolved Problem 01/20/2019 (disorder) [facility] Kidney disease Resolved Problem 01/20/2019 (disorder) [place] - Cancer of Active Problem 11/08/2012 [facility], DAMIAN Hanley, DAMIAN Baez Cholesterol Active Problem 11/08/2012 [facility], DAMIAN Hanley, DAMIAN Baez H/O: stroke Active Problem 11/08/2012 [facility], DAMIAN Hanley, DAMIAN Baez HT - Hypertension Active Problem 11/08/2012 [facility], DAMIAN Hanley, DAMIAN Baez Medications Medication Details Route Status Patient Ordering Order Source Instructions Provider Date atorvastatin 40 40 mg = 1 tab, Active 01/18/ H mg oral tablet PO, Bedtime, # [...] / Codeine PRN Pain, X 7 2019 [facility] Phosphate 30 MG day, # 28 tab, Oral Tablet 0 Refill(s) [Tylenol with Codeine #3] Docusate Sodium 1 tab, PO, BID, Active 50 MG / X 10 day, # 20 2019 [facility] sennosides, CORRECTION tab, 0 8.6 MG Oral Refill(s) Tablet metoprolol 25 mg 25 mg = 1 tab, Active oral tablet, PO, Daily, # 30 2019 [facility] extended release tab, 0 Refill(s) Clonidine Notes: (Same No Longer Hydrochloride 0.3 As: Catapres) Active 2018 [facility] MG Oral Tablet metoprolol Notes: (Same No Longer extended release as: Toprol XL) Active 2018 [facility] Do Not Crush Ondansetron Notes: (Same Inactive as: Zofran) 2019 [facility] MEDICATION WASTE Product Size: 4 mg Product Wasted: ___ mg Reglan Notes: (Same Inactive as: Reglan) 2019 [facility] Hydralazine Notes: (Same No Longer as: Apresoline) [facility] Push over 5 minutes Allopurinol Notes: (Same No Longer as: Zyloprim) Active 2018 [facility] ferrous gluconate 256 mg, Route: No Longer 01/17 PO, Drug form: Active 2019 [facility] TAB, Daily, Dosing Weight 62.358, kg, Start date: 01/17/19 9:00:00 CDT, Duration: 30 day, Stop date: 02/15/19 9:00:00 CDT Docusate Sodium Notes: (Same as No Longer 50 MG / Senokot-S) Active 2018 [facility] sennosides, CORRECTION Equiv. to 8.6 MG Oral Zoraida-Colace. Tablet ferrous sulfate Notes: Give No Longer with food. "Do Active [facility] Not Crush" paricalcitol Notes: (Same No Longer 0.001 MG Oral as: Zemplar) Active 2018 [facility] Capsule Nifedical XL Notes: (Same No Longer as: Adalat CC, Active 2018 [facility] Procardia XL) Give on empty stomach. Take 1 hour before or 2 hours after meal; "Avoid grapefruit and grapefruit juice". Do not crush Nephro-Flash Rx Notes: (Same No Longer as: Nephro-Flash [facility] and Diatx) Give with food. Triiodothyronine Notes: (Same No Longer as: Cytomel) Active 2018 [facility] Thyroxine Notes: Take 1 No Longer hour before or Active 2018 [facility] 2 hours after meal; Enteral feeds may interefere with the absorption of this medication.(Juan e as:Levothroid, Synthroid) heparin Notes: porcine No Longer heparin Active 2018 [facility] atorvastatin Notes: (Same No Longer as: Lipitor) Active 2018 [facility] Acetaminophen 325 Notes: (Same No Longer MG / Hydrocodone as: [place] Active 2018 [facility] Bitartrate 5 MG 325/5) Do not Oral Tablet exceed 4gm/day [[place] 5/325] of acetaminophen. Acetaminophen 325 2 tab, Route: Inactive MG / Hydrocodone PO, Dosing 2018 [facility] Bitartrate 5 MG Weight 62.358, Oral Tablet kg, Q4H, STAT, [[place] 5/325] Start date: 01/16/19 19:36:00 CDT, Duration: 30 day, Stop date: 02/15/19 16:00:00 CDT Milk of Magnesia Notes: (Same No Longer as: Milk of Active 2018 [facility] Magnesia, MOM) Aspirin 81 MG Notes: Take No Longer Chewable Tablet with food. Active 2018 [facility] Zofran Notes: (Same No Longer as: Zofran) 2018 [facility] MEDICATION WASTE Product Size: 4 mg Product Wasted: ___ mg Lactulose 667 Notes: (Same No Longer MG/ML Oral as:Chronulac) Active [address] Solution Morphine Notes: (Same No Longer as:MORPhine Active 2018 [facility] Sulfate) Metoprolol Notes: (Same No Longer as: Lopressor) Active 2018 [facility] Push over 2 minutes Epogen Notes: (Same No Longer as: Procrit) Active 2018 [facility] epoetin jennifer 4000 unit/1 ml VL For dialysis only. (Epogen) WASTE: F/P - Red; E -Red MEDICATION WASTE Product Size: 4000 unit Product Wasted: ___ unit Hydralazine Notes: (Same No Longer Hydrochloride 100 as: Apresoline) Active 2018 [facility] MG Oral Tablet May interfere w/enteral feedings Take With Food Promethazine 6.25 mg, Route: Inactive IVPB, ONCE, 2018 [facility] Dosing Weight 62.358, kg, PRN Nausea & Vomiting, Start date: 01/16/19 12:59:00 CDT Naloxone 0.1 mg, Route: Inactive SUB-Q, Q6H, 2018 [facility] Dosing Weight 62.358, kg, PRN Itching, Start date: 01/16/19 12:59:00 CDT, Duration: 30 day, Stop date: 02/15/19 12:58:00 CDT Meperidine 12.5 mg, Route: Inactive IVP, Q30Min, 2018 [facility] Dosing Weight 62.358, kg, PRN Other -See Comment, For shivering, Start date: 01/16/19 12:59:00 CDT, Duration: 2 doses or times, Stop date: Limited # of times Ondansetron 4 mg, Route: Inactive IVP, ONCE, 2018 [facility] Dosing Weight 62.358, kg, PRN Nausea & Vomiting, Start date: 01/16/19 12:59:00 CDT Flumazenil 0.2 mg, Route: Inactive IVP, PRN, 2018 [facility] Dosing Weight 62.358, kg, PRN Benzodiazepine Reversal, Initial dose, Start date: 01/16/19 12:59:00 CDT, Duration: 30 day, Stop date: 02/15/19 12:58:00 CDT Fentanyl 50 microgram, Inactive Route: IVP, 2019 [facility] Q5Min, Dosing Weight 62.358, kg, PRN Pain Score 7-10, Priority: Routine, Start date: 01/16/19 12:59:00 CDT, Duration: 2 doses or times, Stop date: Limited # of times Hydromorphone 0.5 mg, Route: Inactive IVP, Q5Min, 2018 [facility] Dosing Weight 62.358, kg, PRN Pain Score [...] 10 mg, Route: Inactive IVP, Q20Min, 2018 [facility] Dosing Weight 62.358, kg, PRN Elevated BP, Start date: 01/16/19 12:59:00 CDT, Duration: 2 doses or times, Stop date: Limited # of times Labetalol 10 mg, Route: Inactive IVP, Q5Min, 2018 [facility] Dosing Weight 62.358, kg, PRN Elevated BP, [...] / MH 1000 mg form: INJ, 2019 [facility] Start date: 01/16/19 10:50:00 CDT, Stop date: 01/16/19 11:50:00 CDT Sodium Chloride Route: IV, Inactive 0.9% IV (ANES) Total Volume: 2019 [facility] 1000 mL 1,000, Start date: 01/16/19 10:46:00 CDT, Stop date: 01/16/19 11:46:00 CDT Insulin regular 5 unit, Route: Inactive IV, ONCE, 2018 [facility] Dosing Weight 62.358, kg, Start date: 01/16/19 10:40:00 CDT, Stop date: 01/16/19 10:40:00 CDT Dextrose 12.5 gm, Route: Inactive IVPB, ONCE, 2018 [facility] Dosing Weight 62.358, kg, Start date: 01/16/19 10:39:00 CDT, Stop date: 01/16/19 10:39:00 CDT Calcium Chloride 1,000 mL, Rate: Inactive 0.0014 MEQ/ML / 25 ml/hr, 2018 [facility] Potassium Infuse over: 40 Chloride 0.004 hr, Route: IV, MEQ/ML / Sodium Dosing Weight Chloride 0.103 62.358 kg, MEQ/ML / Sodium Total Volume: Lactate 0.028 1,000, Start MEQ/ML Injectable date: 01/16/19 Solution 8:46:00 CDT, Duration: 1 day, Stop date: 01/17/19 8:45:00 CDT, 1.68, m2, 0 Sodium Chloride 1,000 mL, Rate: Inactive 0.9% IV 1,000 mL 25 ml/hr, 2018 [facility] Infuse over: 40 hr, Route: IV, Dosing Weight 62.358 kg, Total Volume: 1,000, Start date: 01/16/19 8:46:00 CDT, Duration: 1 day, Stop date: 01/17/19 8:45:00 CDT, 1.68, m2, 0 Vitamin B12 monthly, 0 Active Refill(s) 2018 [facility] allopurinol 100 100 mg = 1 tab, [...] water 20 mL As: Ancef, Active 2018 [facility] Kefzol) MEDICATION WASTE Product Size: 1000 mg Product Wasted: ___ mg Allergies, Adverse Reactions, Alerts Substance Category Reaction Severity Reaction Status Date Comments S ource type Reported amLODIPine Assertion Drug Active allergy [place] Immunizations No Data Provided for This Section Results Order Name Results Value Reference Date Interpretation Comments Giovanna rce Range CHEM PANEL eGFR 13 01/18 Result Comment: [facility] eGFR is calculated using the CKD-EPI formula. [...] Sodium Lvl 141 135 - 145 01/18 [facility] CHEM PANEL Creatinine 3.85 0.50 - 01/18 Lvl 1.40 [facility] CHEM PANEL Glucose Lvl 102 70 - 99 01/18 [facility] CHEM PANEL BUN 19 7 - 22 01/18 [facility] CHEM PANEL Calcium Lvl 8.6 8.5 - 10.5 01/18 [facility] CHEM PANEL Chloride Lvl 107 95 - 109 01/18 [facility] CHEM PANEL CO2 29 24 - 32 01/18 [facility] CHEM PANEL Potassium 3.7 3.5 - 5.1 01/18 Lvl /2018 [facility] CHEM PANEL AGAP 8.7 10.0 - 01/18 MH 20. [facility] HEMATOLOGY Segs 64.4 45.0 - 01/18 MH 75.0 [facility] HEMATOLOGY Eosinophils 3.7 0.0 - 4.0 01/18 [facility] HEMATOLOGY Monocytes 21.0 2.0 - 12.0 01/18 [facility] HEMATOLOGY Basophils 0.7 0.0 - 1.0 01/18 [facility] HEMATOLOGY Lymphocytes 10.2 20.0 - 01/18 MH 40.0 [facility] HEMATOLOGY Neutrophils 4.5 1.5 - 8.1 01/18 MH # /2018 [facility] Lymphocytes 0.7 1.0 - 5.5 01/18 MH # /2018 [facility] HEMATOLOGY Eosinophils 0.3 0.0 - 0.5 01/18 # [facility] Monocytes # 1.5 0.0 - 0.8 01/18 [facility] WBC 7.0 3.7 - 10.4 01/18 [facility] RBC 2.62 4.20 - 01/18 MH 5.40 /2018 [facility] Hgb 7.6 12.0 - 01/18 MH 16.0 [facility] Hct 22.6 36.0 - 01/18 MH 48.0 /2018 [facility] MCV 86.4 80.0 - 01/18 98.0 [facility] MCHC 33.6 32.0 - 01/18 36.0 [facility] MCH 29.0 27.0 - 01/18 31.0 [facility] RDW 15.8 11.5 - 01/18 14.5 [facility] MPV 9.7 7.4 - 10.4 01/18 [facility] Platelet 98 133 - 450 01/18 [facility] BLOOD BANK RBC product Product available 4 01/17 [facility] RESULTS (01/17/19 6:45 AM) Comment: [facility] 01/17/2019 07:05 [id number]
notified brennen CHEM PANEL eGFR 01/17 Result Comment: [facility] eGFR is calculated using the CKD-EPI formula. [...] BUN 34 7 - 22 01/17 /2018 [facility] CHEM PANEL Creatinine 5.10 0.50 - 01/17 MH Lvl 1.40 [facility] CHEM PANEL Glucose Lvl 117 70 - 99 01/17 [facility] CHEM PANEL Chloride Lvl 106 95 - 109 01/17 [facility] CHEM PANEL Potassium 5.2 3.5 - 5.1 01/17 Lvl /2018 [facility] CHEM PANEL Sodium Lvl 141 135 - 145 01/17 [facility] CHEM PANEL CO2 25 24 - 32 01/17 [facility] CHEM PANEL Calcium Lvl 8.5 8.5 - 10.5 01/17 [facility] CHEM PANEL AGAP 15.2 10.0 - 01/17 20.0 [facility] HEMATOLOGY Basophils 0.8 0.0 - 1.0 01/17 /2018 [facility] HEMATOLOGY Segs 70.0 45.0 - 01/17 MH 75.0 /2018 [facility] HEMATOLOGY Lymphocytes 8.2 20.0 - 01/17 MH 40.0 /2018 [facility] HEMATOLOGY Monocytes 19.0 2.0 - 12.0 01/17 /2018 [facility] HEMATOLOGY Eosinophils 2.0 0.0 - 4.0 01/17 /2018 [facility] HEMATOLOGY Neutrophils 4.3 1.5 - 8.1 01/17 MH # /2019 [facility] HEMATOLOGY Lymphocytes 0.5 1.0 - 5.5 01/17 MH # /2018 [facility] HEMATOLOGY Monocytes # 1.2 0.0 - 0.8 01/17 /2018 [facility] HEMATOLOGY Eosinophils 0.1 0.0 - 0.5 01/17 MH # /2019 [facility] HEMATOLOGY Hct 21.1 36.0 - 01/17 MH 48.0 [facility] HEMATOLOGY MCV 87.7 80.0 - 01/17 98.0 [facility] HEMATOLOGY Hgb 6.8 12.0 - 01/17 Result 16.0 Comment: [facility] Critical Result(s) called to jarod rodríguez at 01/17/2019 06:21_ by hd_. Read back OK. HEMATOLOGY MCH 28.4 27.0 - 01/17 31.0 [facility] HEMATOLOGY RDW 16.6 11.5 - 01/17 14.5 [facility] HEMATOLOGY Platelet 102 133 - 450 01/17 [facility] HEMATOLOGY MPV 9.7 7.4 - 10.4 01/17 [facility] HEMATOLOGY MCHC 32.4 32.0 - 01/17 MH 36.0 /2018 [facility] HEMATOLOGY WBC 6.1 3.7 - 10.4 01/17 [facility] HEMATOLOGY RBC 2.41 4.20 - 01/17 MH 5.40 /2018 [facility] IMMUNOLOGY Hep C Ab Negative 01/16 MH *NA* /2018 [facility] (01/16/19 2:50 PM) IMMUNOLOGY Hep Bs Ab <3.1 <=7.4 01/16 mIU/mL /2018 [facility] IMMUNOLOGY Hep B Core Negative Negative 01/16 Ab *NA* [facility] (01/16/19 2:50 PM) IMMUNOLOGY Hep Bs Ag Negative Negative 01/16 MH *NA* [facility] (01/16/19 2:50 PM) CHEM PANEL eGFR 8 01/16 Result Comment: [facility] eGFR is calculated using the CKD-EPI formula. [...] 3.5 - 5.1 01/16 MH Lvl /2018 [facility] CHEM PANEL Chloride Lvl 108 95 - 109 01/16 [facility] CHEM PANEL CO2 23 24 - 32 01/16 [facility] CHEM PANEL Calcium Lvl 10.1 8.5 - 10.5 01/16 [facility] CHEM PANEL AGAP 12.3 10.0 - 01/16 MH 20.0 [facility] CHEM PANEL Sodium Lvl 140 135 - 145 01/16 [facility] CHEM PANEL BUN 47 7 - 22 01/16 [facility] CHEM PANEL Creatinine 5.77 0.50 - 01/16 Lvl 1.40 /2018 [facility] CHEM PANEL Glucose Lvl 131 70 - 99 01/16 /2018 [facility] HEMATOLOGY Hct 26.2 36.0 - 01/16 48.0 /2018 [facility] HEMATOLOGY Hgb 8.3 12.0 - 01/16 MH 16.0 /2018 [facility] HEMATOLOGY RBC 2.98 4.20 - 01/16 MH 5.40 /2018 [facility] HEMATOLOGY WBC 4.6 3.7 - 10.4 01/16 /2018 [facility] HEMATOLOGY RDW 16.7 11.5 - 01/16 MH 14.5 /2018 [facility] HEMATOLOGY MCHC 31.8 32.0 - 01/16 36.0 [facility] HEMATOLOGY MCH 28.0 27.0 - 01/16 31.0 [facility] HEMATOLOGY MCV 87.9 80.0 - 01/16 98.0 /2018 [facility] HEMATOLOGY MPV 9.1 7.4 - 10.4 01/16 /2018 [facility] HEMATOLOGY Platelet 140 133 - 450 01/16 /2018 [facility] HEMATOLOGY Eosinophils 0.1 0.0 - 0.5 01/16 MH # /2018 [facility] HEMATOLOGY Monocytes # 0.6 0.0 - 0.8 01/16 /2018 [facility] HEMATOLOGY Lymphocytes 0.9 1.0 - 5.5 01/16 # /2018 [facility] HEMATOLOGY Lymphocytes 19.1 20.0 - 01/16 40.0 /2018 [facility] HEMATOLOGY Segs 65.9 45.0 - 01/16 75.0 /2018 [facility] HEMATOLOGY Eosinophils 2.3 0.0 - 4.0 01/16 /2018 [facility] HEMATOLOGY Monocytes 12.1 2.0 - 12.0 01/16 /2018 [facility] HEMATOLOGY Neutrophils 3.1 1.5 - 8.1 01/16 # /2018 [facility] HEMATOLOGY Basophils 0.6 0.0 - 1.0 01/16 /2018 [facility] BLOOD BANK Antibody Negative 01/16 RESULTS Scrn (01/16/19 9:35 AM) /2018 [facility] BLOOD BANK ABO/Rh B POS 01/16 RESULTS /2018 [facility] HEMATOLOGY PT 14.1 12.0 - 01/16 MH 14.7 /2018 [facility] HEMATOLOGY INR 1.11 0.85 - 01/16 MH 1.17 [facility] HEMATOLOGY PTT 28.3 22.9 - 01/16 35.8 /2018 [facility] Pathology Reports No Data Provided for This Section Diagnostic Reports Report Value Date Source Chest 1 v for Placement Patient Name: EVIE RICKS DO B: 1955 01/16/2019 [facility] DX Age: 63 years, Female MR: [id number] Study: Chest 1 v for Placement DX [...] of the left upper extremit y. SL: [id number] Chest 2 views DX Clinical Indication: Coughing - preoperative. 0 01/16/2019 [facility] Comparison: None FINDINGS: PA and lateral chest radiographs were obtained. MEDIASTINUM: The cardiac rad houette is mildly enlarged. The aorta is unremarkable. LUNGS: The lungs are clear. No pleural effusion. No pneumothorax. OTHER: No acute osseous abnormalities. IMPRESSION: Cardiomegaly, without acute cardiopulmonary abno rmality identified. SL: [id number] Pelvis with Pelvis 11/06/2012 DAMIAN [facility] and [...] Hospital Temperature Oral (F) 98.2 [facility] 16 01/18/2019 [facility] Systolic (mm Hg) 164 01/18/2019 [place] Diastolic (mm Hg) 66 01/18/2019 [facility] st Respitory Rate 16 01/18/2019 [facility] Systolic (mm Hg) 162 01/18/2019 [place] Diastolic (mm Hg) 56 01/18/2019 [facility] st Temperature Oral (F) 98.2 F 01/18/2019 [facility] heast Heart Rate 77 01/18/2019 [facility] Respitory Rate 16 01/18/2019 [facility] Temperature Oral (F) 98.4 F 01/18/2019 [facility] heast Heart Rate 74 01/18/2019 [facility] Systolic (mm Hg) 136 01/18/2019 [place] Diastolic (mm Hg) 63 [facility] [facility] Calculated 24.35 01/16/2019 [facility] Weight 62.358 01/16/2019 [facility] Height 160.02 cm 01/16/2019 [facility] Weight 59.091 01/15/2019 [facility] BMI Calculated 22.36 01/15/2019 [facility] Height 162.56 cm 01/15/2019 [facility] Temperature Oral (F) 96.3 F 05/19/2012 [facility] Heart Rate 57 05/19/2012 [facility] Respitory Rate 20 05/19/2012 [facility] Center Systolic (mm Hg) 180 05/19/2012 [facility] Diastolic (mm Hg) 93 [facility]/19[facility] Weight 81.136 05/19/2012 [facility] Height 160.02 cm 05/19/2012 [facility] Temperature Oral (F) 97.8 F 01/28/2012 [facility] Systolic (mm Hg) 181 01/28/2012 [facility] Heart Rate 53 01/28/2012 [facility] Respitory Rate 18 01/28/2012 [facility] Diastolic (mm Hg) 81 01/28/[facility] Weight 80.710 01[facility]28/2012 [facility] Height 160.02 cm 01/28/2012 [facility] Respitory Rate 18 01/10/2012 [facility] Heart Rate 62 01/10/2012 [facility] Temperature Oral (F) 98.3 F 01/10/2012 [facility] Diastolic (mm Hg) 76 01/10/2012 [facility] Systolic (mm Hg) 144 01/10/2012 [facility] Weight 81.080 01/10/2012 [facility] Height 160.02 cm 01/10/2012 [facility] Encounters Location Location Encounter Encounter Reason Attending ADM OR Stat us Source Details Type Number For Provider Date Date [place] [id number] COLON PUTAO KEV 01/09 02/07 Active [facility] 0 CANCER /2011 [facility] [id number] CANCER PUTAO KEV 01/09 Act meet [facility] [facility] [place] [id number] FOLLOW JUAN 05/19 Active [facility] 1 UP [facility] Observation [id number] Blaine 01/16 01/18 Talon Luke /2018 [facility] Outpatient [id number] COLON SALLY [place] [address] [facility] r [place] [id number] 620.2 - JUAN Cancel OPID 0 OVARIAN DUBOSE Talon [facility]ST [place] Procedures Procedure Code Date Perfomer Comments Source Colectomy [id number] [facility] Thyroidectomy [id number] [place] [facility] Total hysterectomy [id number] [facility] Assessment and Plan Assessment and [...]
--- OUTSIDE RECORDS SUMMARY | 2020-06-20 02:01 | XMS REPORT | Continuity of Care Document ---
:1955 Author Organization [facility] t Address [address] [place] [address] Care Team Providers Name Role Phone Oseas Luke Attending Clinician Oseas Luke Admitting Clinician Problems Condition Condition Condition Status Onset Resolution Last Treating Co mments Source Name Details Category Date Date Treatment Clinician Date UNK Diagnosis Active 2019-01-16 [facility] oria 01-15 13:44:00 l UNK 00:00: Talon 00 Active 01/15/2019 [facility] CKD Diagnosis Active 2019-01-19 [facility] oria 01-15 11:41:00 l CKD 00:00: Ranger 00 Active 01/15/2019 [facility] 620.2 - Diagnosis Active 2011-062012-06-08 Ar moria OVARIAN 0 15:31:00 l CYST NE 620.2 - 00:01: Keenan n OVARIAN 00 CYST NE Active 04/08/2012 [facility] Ranger FOLLOW UP Diagnosis Active 2012-05-19 Memoria 03-12 10:19:00 l FOLLOW 00:00: Talon UP [address] [facility] CANCER OF Diagnosis Active 2012-01-17 Memoria RECTAL 01-09 09:50:00 l AMPULLA CANCER 00:00: Talon OF RECTAL 00 AMPULLA Active 01/10/2012 [facility] COLON Diagnosis Active 2012-02-15 Mem oria CANCER 12-26 13:01:00 l COLON 00:00: Talon CANCER 00 Active 12/27/2011 [facility] Cerebrovas [facility] 21[facility]35:04 l accident Talon (disorder) Cerebrovas cular accident (disorder) Resolved Problem 01/20/2019 [facility] Hyperlipid Problem Resolve 2019-01-20 Memoria emia d 21:35:04 l (disorder) Keenan n Hyperlipid emia (disorder) Resolved Problem 01/20/2019 [facility] Kidney Problem Resolve 2019-01-20 Anthony litzy disease d 21:35:04 l (disorder) Kidney Herm vin disease (disorder) Resolved Problem 01/20/2019 [facility] Malignant Problem Active 2019-01-20 Me moria tumor of 21:35:04 l colon Talon (disorder) Malignant tumor of colon (disorder) Active Problem 01/20/2019 [facility] History of Problem Active 2019-01-20 M emoria - CVA 21:35:04 l (context-d History Her cardenas ependent of - CVA category) (context-d ependent category) Active Problem 01/20/2019 [facility] Hypertensi Problem Active 2019-01-20 M emoria ve 21:35:04 l disorder, Talon systemic Hypertensi arterial ve (disorder) disorder, systemic arterial (disorder) Active Problem 01/20/2019 [facility] CA - Problem Active 2012-11-08 Memor ia Cancer of 21:08:25 l colon CA - Talon Cancer of colon Active Problem 11/08/2012 [facility], DAMIAN Hanley, DAMIAN Baez Cholestero Problem Active 2012-11-08 M emoria l 21:08:25 l Ranger Cholestero l Active Problem 11/08/2012 [facility], DAMIAN Hanley, DAMIAN Baez H/O: Problem Active 2012-11-08 Memor ia stroke 21:08:25 l H/O: Talon stroke Active Problem 11/08/2012 [facility], DAMIAN Hanley, DAMIAN Baez HT - Problem Active 2012-11-08 Mem[facility] ia Hypertensi 21:08:25 l on HT - Ranger Hypertensi on Active Problem 3 [facility], DAMIAN Hanley, DAMIAN Baez Allergies, Adverse Reactions, Alerts Allergy Allergy Status Severity Reaction(s) Onset Inactive Treating Comm ents Source Name Type Date Date Clinician amLODIPi amLODIPi Active Alyssa Hanley Social History Social Habit Start Date Stop Date Quantity Comments Source Social History 2019-01-15 2019-01-15 [facility] ermann 18:23:27 18:23:27 Medications Ordered Filled Start Stop Current Ordering Indication Dosage Frequency Signature Comments Components Source Medication Medication Date Date Medication? Clinician (SIG) Name Name atorvivianetapartha Yes 40 mg = 1 M emoria n 40 mg 7-28 tab, PO, l oral tablet 17:26: Bedtime, # Ranger 00 30 tab, 0 Refill(s) Aspirin 81 Yes 81 mg = 1 Me moria MG Enteric 7-28 tab, PO, l Coated 17:21: Daily, # Ranger Tablet 00 90 tab, 3 Refill(s) Ondansetron [...] l MG / 17:05: day, # 20 Ranger sennosides, 00 tab, 0 CUSTODIAL 8.6 MG Refill(s) Oral Tablet metoprolol Yes [...] / 14:00: Senokot-S) sennosides, 00 Equiv. to CUSTODIAL 8.6 MG Zoraida-Colac Oral Tablet e. ferrous [...] as: l 02:00: Lipitor) Acetaminoph No Notes: Anthnoy litzy en 325 MG / 01-17 (Same as: l Hydrocodone 00:40: [place] Maribell nn Bitartrate 00 325/5) Do 5 MG Oral not exceed Tablet 4gm/day of [[place] acetaminop 5/325] hen. Acetaminoph No 2 tab, Anthony litzy en 325 MG / 01-17 Route: PO, l Hydrocodone 00:36: Dosing Herm vin Bitartrate 00 Weight 5 MG Oral 62.358, Tablet kg, Q4H, [[place] STAT, 5/325] Start date: 01/16/19 19:36:00 CDT, [...] MG/ML - (Same l Oral 22:23: as:Chronul Ranger Solution ac) Morphine No Notes: Memoria 7-26 [...] Memori a 01-16 Route: l 17:59: SUB-Q, Ranger 00 Q6H, Dosing Weight 62.358, kg, PRN [...] mine 01-16 Route: l 17:59: IVP, Drug Ranger 00 form: INJ, Q6H, Dosing Weight 62.358, [...] Anthony litzy 01-16 Route: l 17:59: IVP, Ranger 00 Q20Min, Dosing Weight 62.358, kg, PRN Elevated BP, Start date: 01/16/19 12:59:00 CDT, Duration: 2 doses or times, Stop date: Limited # of times Labetalol 2019-0 No 10 mg, Memori a 01-16 Route: l 17:59: IVP, Ranger 00 Q5Min, Dosing Weight 62.358, kg, PRN [...] 01-16 Rate: 25 l 0.0014 13:46: ml/hr, Ranger MEQ/ML / 00 Infuse Potassium over: 40 [...] Rate: 25 l 0.9% IV 13:46: ml/hr, Ranger 1,000 mL 00 Infuse over: 40 hr, Route: IV, Dosing Weight 62.358 kg, Total Volume: 1,000, Start date: 01/16/19 8:46:00 CDT, Duration: 1 day, Stop date: 01/17/19 8:45:00 CDT, 1.68, m2, 0 Vitamin B12 2019- Yes monthly, 0 Memoria 7-25 Refill(s) l 18:31: Ranger 00 allopurinol 2018- Yes 100 mg = 1 Memoria 100 mg oral 7-25 tab, PO, l tablet 18:30: Daily, # Talon 00 90 tab, 1 Refill(s) Aspirin 81 2019- Yes 81 mg = 1 Me moria MG Chewable 7-25 tab, PO, l Tablet 18:30: Daily, Ranger 00 tab, 0 Refill(s) 24 HR 2019 [...] PO, l oral tablet 18:27: Bedtime, # Ranger 00 30 tab, 0 Refill(s) Clonidine Yes 0.3 mg = 1 moria Hydrochlori 7-25 tab, PO, l de 0.3 MG 18:25: TID, # 60 Her cardenas Oral Tablet 00 tab, 1 Refill(s) Vancomycin No 2001 mg: Me moria 7-25 infuse l 18:00: over 2.5 Ranger 00 hours For adult patients only: Round [...] Comments Source Heart Rate 2019-01-18 16:07:00 [facility] Temperature Oral (F) 2019-01-18 16:07:00 98.2 F [facility] Respitory Rate 2019-01-18 16:07:00 Memori al Ranger Systolic (mm Hg) 2019-01-18 16:07:00 Anthony rial Talon Diastolic (mm Hg) 2019-01-18 16:07:00 Mem orial Ranger Respitory Rate 2019-01-18 14:03:00 Memori al Ranger Systolic (mm Hg) 2019-01-18 12:32:00 Anthony rial Talon Diastolic (mm Hg) 2019-01-18 12:32:00 Mem orial Talon Temperature Oral (F) 2019-01-18 12:32:00 98.2 F [facility] Heart Rate 2019-01-18 12:32:00 [facility] Respitory Rate 2019-01-18 12:32:00 Memori al Ranger Temperature Oral (F) 2019-01-18 08:54:00 98.4 F [facility] Heart Rate 2019-01-18 08:54:00 [facility] Systolic (mm Hg) 2019-01-18 08:54:00 Anthony rial Ranger Diastolic (mm Hg) 2019-01-18 08:54:00 Mem orial Ranger BMI Calculated 2019-01-16 13:43:00 Memori al Ranger Weight 2019-01-16 13:43:00 [facility] Height 2019-01-16 13:43:00 160.02 cm [facility] Weight 2019-01-15 17:57:00 [facility] BMI Calculated 2019-01-15 17:57:00 Memori al Ranger Height 2019-01-15 17:57:00 162.56 cm [facility] Temperature Oral (F) 2012-05-19 16:43:00 96.3 F [facility] Heart Rate 2012-05-19 16:43:00 [facility] Respitory Rate 2012-05-19 16:43:00 Memori al Ranger Systolic (mm Hg) 2012-05-19 16:43:00 Anthony rial Talon Diastolic (mm Hg) 2012-05-19 16:43:00 Mem orial Talon Weight 2012-05-19 16:43:00 [facility] Height 2012-05-19 16:43:00 160.02 cm [facility] Temperature Oral (F) 2012-01-28 14:02:00 97.8 F [facility] Systolic (mm Hg) 2012-01-28 14:02:00 Anthony rial Talon Heart Rate 2012-01-28 14:02:00 [facility] Respitory Rate 2012-01-28 14:02:00 Memori al Talon Diastolic (mm Hg) 2012-01-28 14:02:00 Mem orial Ranger Weight 2012-01-28 14:02:00 [facility] Height 2012-01-28 14:02:00 160.02 cm [facility] Respitory Rate 2012-01-10 14:26:00 Memori al Talon Heart Rate 2012-01-10 14:26:00 [facility] Temperature Oral (F) 2012-01-10 14:26:00 98.3 F [facility] Diastolic (mm Hg) 2012-01-10 14:26:00 Mem orial Ranger Systolic (mm Hg) 2012-01-10 14:26:00 Anthony rial Talon Weight 2012-01-10 14:26:00 [facility] Height 2012-01-10 14:26:00 160.02 cm [facility] Procedures Procedure Date / Time Performed Performing Clinician Sourc e Colectomy [facility] Thyroidectomy [facility] Total hysterectomy [facility] vin Encounters Start End Encounter Admission Attending Care Care Encounter Source Date/Time Date/Time Type Type Clinicians Facility Department ID 2019-08-31 [id number] 09:50:05 2020-05-26 2020-05-26 Outpatient [...] l 2019-01-16 2019-01-18 Outpatient Ti, [facility]SE MHSE [id number] 13:29:00 15:39:00 Blaine Hampton Oseas 2019-01-16 [...] code = MCH) 29.0 pg 27.0-31.0 [facility] AviinrkCAPKWYGRAN4648-12-30 10:53:0015.8[facility] 2019-01-18 10:53:009.7[facility] BehrrwsLQMQFRGTUG2455-75-00 10:53:0098[facility] CBCBMEJ6500-44-03 11:45:00Product available 4(01/17/19 6:45 AM) [facility]ann[facility] LAILM5169-82-64 10:38:0010[facility]annCHEM PANEL 2019-01-17 10:38:0034[facility]annCHE[facility] NXELF0367-64-97 10:38:005.10[facility]annCHE[facility] WQTFQ2682-58-05 10:38:77084Njmzqdoh HermannCHEM TPOHW2608-00-08 10:38:23908Qxgqwbvr HermannCHEM GBIQE2245-50-79 10:38:005.2[facility]annCHE[facility] EQWNJ1384-09-90 10:38:22946Ikpcveha HermannCHEM IGBAN1992-10-29 10:38:0025 [facility]annCHE[facility] GNVVS9971-46-94 10:38:008.5[facility]annCHEM PANEL 2019-01-17 10:38:0015.2[facility] CtzqquqLEIHTPFOOH1533-27-84 10:38:000.8[facility] YzdimzsGNGOUMGUMQ7070-60-84 10:38:0070.0[facility] EdofwjsFKEGXERZVQ8677-47-01 10:38:008.2[facility] ZahmtzcTDFIKYIVFT0596-82-75 10:38:0019.0[facility] UCWVZGBWFP5229-84-92 10:38:002.0[facility] BjnnrqxJOJMXHBRKN0427-08-16 10:38:004.3 [facility] ObkqsjzWBXISPNSYQ9803-15-29 10:38:000.5[facility]annHEMATOLOGY 2019-01-17 10:38:001.2[facility] XklupsoTQZITTZBBB2630-20-87 10:38:000.1[facility] ZatdaprKRWPEWQZZH3985-19-48 10:38:0021.1[facility] GsrzssnLCVVODCFRJ3398-77-20 10:38:0087.7[facility] ZwtnxpzSXSONUPPXV8829-21-18 10:38:006.8[facility] WFEMQRFIYM9033-13-16 10:38:00 Test Item Value Reference Range Interpretation Comments MCH (test code = MCH) 28.4 pg 27.0-31.0 [facility] DdrqsrcCUMGQDVFPW1104-73-00 10:38:0016.6[facility]annHEMATOLOGY 2019-01-17 10:38:28745Uqyfybdq BaztcznJEPYOLEFSH0608-23-19 10:38:009.7[facility] IyrpzydCCMNDOGZGE5422-65-35 10:38:0032.4[facility] WlajumlYBKEIBEYIJ1524-42-14 10:38:006.1[facility] UeaqzbzTZMAWLXIII2451-66-11 10:38:002.41[facility] MZDCQPOJVJ6871-26-20 19:50:00Negative *NA*(01/16/19 2:50 PM)[facility] TIKKQJJJDW8666-79-27 19:50:00<3.1[facility] KbbrrdgOHGONHPGLT1517-77-36 19:50:00Negative *NA*(01/16/19 2:50 PM)[facility] ZaqarjpETBCYJELCB2762-90-18 19:50:00Negative *NA*(01/16/19 2:50 PM)[facility]annCHEM JXRQX6565-01-33 19:08:568[facility]annCHEM RTMUN3577-31-25 19:08:563.3[facility] HermannCHEM LSPGZ7341-26-40 19:08:17101Proybygt HermannCHEM KTQRH6095-18-86 19:08:5623 [facility]annCHEM OKMIX9627-16-40 19:08:5610.1[facility]annCHEM PANEL 2019-01-16 19:08:5612.3[facility] HermannCHEM ZGXBC0889-43-61 19:08:69594Qnwzrhhw HermannCHEM HCDMS0474-34-40 19:08:5647[facility] HermannCHEM DKZAQ3700-63-30 19:08:565.77[facility] HermannCHEM LAGCD2791-62-57 19:08:05267Wbtoaciu Ranger VKJITUTQWM4186-13-82 19:08:5626.2[facility] WhdczybSULCSNATBO6370-02-89 19:08:56 8.3[facility] PfrzgzpPMRGKXSOGT3182-96-58 19:08:562.98[facility]annHEMATOLOGY 2019-01-16 19:08:564.6[facility] YxxkajhJLQZBCMZEQ2709-31-11 19:08:5616.7[facility] YlvcpbgSQNLTNTRHP8033-75-18 19:08:5631.8[facility] ZihraixTYRESAUCUH6866-02-45 19:08:56 Test Item Value Reference Range Interpretation Comments MCH (test code = MCH) 28.0 pg 27.0-31.0 [facility] UisitfdOYYMWWYGGR8206-03-64 19:08:5687.9[facility]annHEMATOLOGY 2019-01-16 19:08:569.1[facility] JlsnibdMTYZRGVHCF0675-57-44 19:08:79487Ajczjmpz SjrbsyoRWNAFIKSEI9873-44-36 19:08:560.1[facility] LxqzwwgWQTTNSOLJQ5881-24-15 19:08:560.6[facility] KrtcctvAAQSNBWDYR1372-53-01 19:08:560.9[facility] ENFPDLNMKS1031-20-21 19:08:5619.1[facility] NqidoxhCHGQNDHVSM7192-71-19 19:08:56 65.9[facility] TnvmpboDAJZECIIFN4745-34-77 19:08:562.3[facility]annHEMATOLOGY 2019-01-16 19:08:5612.1[facility] UnuzdhhRJPZDQLQAL3985-96-39 19:08:563.1[facility] WejskavDGJSCVQWMJ7881-97-73 19:08:560.6[facility]annBLOOD BANK RESULTS 2019-01-16 14:35:00Negative (01/16/19 9:35 AM)[facility] 14:35:00 Test Item Value Reference Range Interpretation Comments PT (test code = PT) 14.1 s 12.0-14.7 [facility] HospitalJqirbirFWZVXCFZHJ3884-42-72 14:35:00 Test Item Value Reference Range Interpretation Comments INR (test code = INR) 1.11 1 0.85-1.17 [facility] HospitalQcdwfslXTFDFAWKPL5206-81-31 14:35:00 Test Item Value Reference Range Interpretation Comments PTT (test code = PTT) 28.3 s 22.9-35.8 [facility]
[2020-06-20] MEDS ORDERED: LABETALOL 20 MG/4ML SYRINGE IV ONE (02:48)
[2020-06-20] MEDS ORDERED: hydroCHLOROthiazide 25 MG TAB ONE (02:57)
[2020-06-20] MEDS ORDERED: HYDRALAZINE HCL 20 MG/ML VIAL ONE (04:45)
--- NOTE | 2020-06-20 05:14 | ER ---
Nurse's Notes [facility] Name: Alma Rosa Corral Age: 64 yrs Sex: Female : 1955 Arrival Date: 06/20/2020 Time: 02:00 Bed 2 Private MD: Pattie Riggins R Diagnosis: HYPERTENSIVE URGENCY Presentation: 06/20 02:19 Chief complaint: Patient's son or daughter states: Patient has been having high BP at 1 home, 200 systolic; Reports here on 06/17/20 for same complaint; Denies chest pain, sob, dizziness; Patient took Clonidine 0.1mg PO x3 2 hours ago. Coronavirus screen: Client denies travel out of the [place] in the last 14 days. At this time, the client does not indicate any symptoms associated with coronavirus-19. Ebola Screen: No symptoms or risks identified at this time. Initial Sepsis Screen: Does the patient meet any 2 criteria? No. Patient's initial sepsis screen is negative. Does the patient have a suspected source of infection? No. Patient's initial sepsis screen is negative. Risk Assessment: Do you want to hurt yourself or someone else? Patient reports no desire to harm self or others. Onset of symptoms was June 20, 2020. 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 - Social history:: Smoking status: Patient denies any tobacco usage or history of. Screenin:23 Abuse screen: Denies threats or abuse. Denies injuries from another. Nutritional lp1 screening: No deficits noted. Tuberculosis screening: No symptoms or risk factors identified. Fall Risk Total Ch[place] Fall Scale indicates High Risk Score (45 or more points). Fall prevention measures have been instituted. Side Rails Up X 2 Family Present and informed to notify staff if the need to leave the bedside. Assessment: 02:43 General: Appears in no apparent distress. Behavior is calm, cooperative, appropriate lp1 for age. Pain: Denies pain. Neuro: Level of Consciousness is awake, alert, obeys commands, Oriented to person, place, time, situation. Cardiovascular: Patient's skin is warm and dry. Respiratory: Respiratory effort is even, unlabored, Denies shortness of breath. GI: Abdomen is non-distended, Peritoneal dialysis catheter noted, clean and dry. : No signs and/or symptoms were reported regarding the genitourinary system. EENT: No signs and/or symptoms were reported regarding the EENT system. Derm: Skin is intact, Skin is dry, Skin is normal. Musculoskeletal: No deficits noted. 04:00 Reassessment: Patient appears in no apparent distress at this time. Patient and/or lp1 family updated on plan of care and expected duration. Pain level reassessed. 04:10 Reassessment: Provider aware of lowered BP; hold Hydralazine order, continue to monitor.lp1 05:00 Reassessment: Family member assisted [place] [facility] lp1 06:00 Reassessment: Patient appears in no apparent distress at this time. Neuro: Level of lp1 Consciousness is awake, alert, obeys commands. Respiratory: Respiratory effort is even, unlabored. Derm: Skin is intact, Skin is dry, Skin is normal. 06:00 Reassessment: family member at bedside aware of discharge. lp1 Vital Signs: 02:19 BP 220 / 87; Pulse 60; Resp 18; Temp 98.8(TE); Pulse Ox 98% on R/A; Weight 63.5 kg (R); lp1 Height 5 ft. 3 in. (160.02 cm); Pain 0/10; 03:00 BP 218 / 75; Pulse 55; Resp 16; Pulse Ox 100% on R/A; lp1 03:40 BP 215 / 91; Pulse 54; Resp 16; Pulse Ox 98% on R/A; lp1 04:00 BP 155 / 65; Pulse 60; Resp 18; Pulse Ox 98% on R/A; lp1 04:20 BP 226 / 82; Pulse 54; Resp 16; Pulse Ox 98% on R/A; lp1 05:00 BP 151 / 66; Pulse 66; Resp 18; Pulse Ox 98% on R/A; lp1 05:20 BP 152 / 76; Pulse 71; Resp 18; Pulse Ox 99% on R/A; lp1 05:45 BP 142 / 64; Pulse 70; Resp 18; Pulse Ox 99% on R/A; Pain 0/10; lp1 02:19 Body Mass Index 24.80 (63.50 kg, 160.02 cm) lp1 ED Course: 02:00 Patient arrived in ED. am2 02:00 Pattie Riggins MD is Private Physician. am2 02:05 Phani Brady MD is Attending Physician. tw4 02:11 Jeni Denson, RN is Primary Nurse. lp1 02:21 Triage completed. lp1 02:21 Arm band placed on left wrist. lp1 02:23 Patient has correct armband on for positive identification. Placed in gown. Bed in low lp1 position. Pulse ox on. NIBP on. 04:46 Missed attempt(s): 24 gauge in right wrist. Inserted saline lock: 24 gauge in right lp1 hand, using aseptic technique. 05:12 Pattie Riggins MD is Referral Physician. tw4 05:12 Geraldo Dias MD is Referral Physician. tw4 05:12 Ortiz Motta MD is Referral Physician. tw4 05:38 No provider procedures requiring assistance completed. lp1 06:00 IV discontinued, No redness/swelling at site. Pressure dressing applied. lp1 Administered Medications: 02:44 Drug: HydrALAZINE 25 mg Route: PO; ea 04:30 Follow up: Response: No adverse reaction lp1 04:46 Drug: hydrALAZINE 20 mg Route: IV; Rate: bolus; Site: right hand; lp1 05:38 Follow up: Response: Blood pressure is lowered lp1 Outcome: 05:14 Discharge ordered by . tw4 06:00 Discharged to home via wheelchair, with family. lp1 06:00 Condition: good 06:00 Discharge instructions given to patient, family, Instructed on discharge instructions, follow up and referral plans. medication usage, Demonstrated understanding of instructions, follow-up care, medications, Prescriptions given X 1. 06:05 Patient left the ED. lp1 Signatures: Jeni Denson RN RN lp1 Ermelinda Meyer am2 Nettie Dukes RN RN Phani Padilla MD MD tw4 Corrections: (The following items were deleted from the chart) 02:52 02:19 Acuity: LILIBETH 3 lp1 lp1
--- NOTE | 2020-06-20 05:14 | EDPHYS ---
Physician Documentation [facility] Name: Alma Rosa Corral Age: 64 yrs Sex: Female : 1955 Arrival Date: 06/20/2020 Time: 02:00 Bed 2 Private MD: Pattie Riggins R ED Physician Phani Brady HPI: 06/20 03:03 This 64 yrs old Black Female presents to ER via Wheelchair with complaints of High tw4 Blood Pressure. 03:03 The patient has elevated blood pressure and discovered this at home. Onset: The tw4 symptoms/episode began/occurred today. Modifying factors: The symptoms are aggravated by activity. Severity of symptoms: At its worst the blood pressure was moderate, in the emergency department the blood pressure is unchanged. The patient has not experienced similar symptoms in the past. 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 - Social history:: Smoking status: Patient denies any tobacco usage or history of. ROS: 03:03 Constitutional: Negative for fever, chills, and weight loss, Eyes: Negative for injury, tw4 pain, redness, and discharge, Cardiovascular: Negative for chest pain, palpitations, and edema, Respiratory: Negative for shortness of breath, cough, wheezing, and pleuritic chest pain, Abdomen/GI: Negative for abdominal pain, nausea, vomiting, diarrhea, and constipation, Back: Negative for injury and pain, MS/Extremity: Negative for injury and deformity, Skin: Negative for injury, rash, and discoloration, Neuro: Negative for headache, weakness, numbness, tingling, and seizure. Exam: 03:03 Constitutional: This is a well developed, well nourished patient who is awake, alert, tw4 and in no acute distress. Head/Face: Normocephalic, atraumatic. Chest/axilla: Normal chest wall appearance and motion. Nontender with no deformity. No lesions are appreciated. Cardiovascular: Regular rate and rhythm with a normal S1 and S2. No gallops, murmurs, or rubs. Normal PMI, no JVD. No pulse deficits. Respiratory: Lungs have equal breath sounds bilaterally, clear to auscultation and percussion. No rales, rhonchi or wheezes noted. No increased work of breathing, no retractions or nasal flaring. Abdomen/GI: Soft, non-tender, with normal bowel sounds. No distension or tympany. No guarding or rebound. No evidence of tenderness throughout. Back: No spinal tenderness. No costovertebral tenderness. Full range of motion. Skin: Warm, dry with normal turgor. Normal color with no rashes, no lesions, and no evidence of cellulitis. MS/ Extremity: Pulses equal, no cyanosis. Neurovascular intact. Full, normal range of motion. Neuro: Awake and alert, GCS 15, oriented to person, place, time, and situation. Cranial nerves II-XII grossly intact. Motor strength 5/5 in all extremities. Sensory grossly intact. Cerebellar exam normal. Normal gait. Vital Signs: 02:19 BP 220 / 87; Pulse 60; Resp 18; Temp 98.8(TE); Pulse Ox 98% on R/A; Weight 63.5 kg (R); lp1 Height 5 ft. 3 in. (160.02 cm); Pain 0/10; 03:00 BP 218 / 75; Pulse 55; Resp 16; Pulse Ox 100% on R/A; lp1 03:40 BP 215 / 91; Pulse 54; Resp 16; Pulse Ox 98% on R/A; lp1 04:00 BP 155 / 65; Pulse 60; Resp 18; Pulse Ox 98% on R/A; lp1 04:20 BP 226 / 82; Pulse 54; Resp 16; Pulse Ox 98% on R/A; lp1 05:00 BP 151 / 66; Pulse 66; Resp 18; Pulse Ox 98% on R/A; lp1 05:20 BP 152 / 76; Pulse 71; Resp 18; Pulse Ox 99% on R/A; lp1 05:45 BP 142 / 64; Pulse 70; Resp 18; Pulse Ox 99% on R/A; Pain 0/10; lp1 02:19 Body Mass Index 24.80 (63.50 kg, 160.02 cm) lp1 MDM: 02:05 Patient medically screened. tw4 03:03 Differential diagnosis: hypertensive crisis, Malignant HTN. Data reviewed: vital signs, tw4 nurses notes. Data interpreted: Pulse oximetry: Interpretation: normal. Counseling: I had a detailed discussion with the patient and/or guardian regarding: the historical points, exam findings, and any diagnostic results supporting the discharge/admit diagnosis. Special discussion: I discussed with the patient/guardian in detail that at this point there is no indication for admission to the hospital. It is understood, however, that if the symptoms persist or worsen the patient needs to return immediately for re-evaluation. 05:11 Medication response: hydralazine. Response to treatment: the patient's symptoms have tw4 markedly improved after treatment, and as a result, I will discharge patient. Administered Medications: 02:44 Drug: HydrALAZINE 25 mg Route: PO; ea 04:30 Follow up: Response: No adverse reaction lp1 04:46 Drug: hydrALAZINE 20 mg Route: IV; Rate: bolus; Site: right hand; lp1 05:38 Follow up: Response: Blood pressure is lowered lp1 Disposition: 06/20/20 05:14 Discharged to Home. Impression: HYPERTENSIVE URGENCY. - Condition is Stable. - Discharge Instructions: Hypertension, Managing Your Hypertension. - Prescriptions for Hydralazine 25 mg Oral Tablet - take 1 tablet by ORAL route 4 times per day with food; 30 tablet. - Medication Reconciliation Form, Thank You Letter, Antibiotic Education, Prescription Opioid Use form. - Follow up: Pattie Riggins MD; When: Upon discharge from the Emergency Department; Reason: Recheck today's complaints, Continuance of care, Re-evaluation by your physician. Follow up: Geraldo Dias MD; When: Upon discharge from the Emergency Department; Reason: Recheck today's complaints, Continuance of care, Re-evaluation by your physician. Follow up: Ortiz Motta MD; When: Upon discharge from the Emergency Department; Reason: Recheck today's complaints, Continuance of care, Re-evaluation by your physician. Signatures: Jeni Denson RN RN lp1 Nettie Dukes RN RN ea Wadley, Terrence, MD MD tw4 Corrections: (The following items were deleted from the chart) 06:05 05:14 06/20/2020 05:14 Discharged to Home. Impression: HYPERTENSIVE URGENCY. Condition lp1 is Stable. Forms are Medication Reconciliation Form, Thank You Letter, Antibiotic Education, Prescription Opioid Use. Follow up: Pattie Riggins; When: Upon discharge from the Emergency Department; Reason: Recheck today's complaints, Continuance of care, Re-evaluation by your physician. Follow up: Geraldo Dias; When: Upon discharge from the Emergency Department; Reason: Recheck today's complaints, Continuance of care, Re-evaluation by your physician. Follow up: Ortiz Motta; When: Upon discharge from the Emergency Department; Reason: Recheck today's complaints, Continuance of care, Re-evaluation by your physician. tw4
[2020-06-20 06:15] VITALS: BP 220/87; TEMP 98.8; O2SAT 98
== END 2020-06-20 06:05 | disposition home or self-care (01) ==
LOC: ER 01:56
DX: I16.0 Hypertensive urgency (principal); I10 Essential (primary) hypertension; Z99.2 Dependence on renal dialysis; E07.9 Disorder of thyroid, unspecified; R13.10 Dysphagia, unspecified; Z86.73 Personal history of transient ischemic attack (TIA), and cerebral infarction without residual deficits; Z88.8 Allergy status to other drugs, medicaments and biological substances
CPT/HCPCS: 96374; 99284; J0360

== ENCOUNTER 2020-07-28 23:19 | Observation (INO) | payer OTHER ==
--- OUTSIDE RECORDS SUMMARY | 2020-07-28 23:23 | XMS REPORT | Summary of Care ---
:1955 Author Organization [facility] Address [address] [place], [place] [address]- Encounter HQ Henrik(FIN) [id number] Date(s): 05/26/20 - 05/26/20 [facility] [address] [place] [address]- Discharge Disposition: Home or Self Care Attending Physician: Blaine Luke MD Referring Physician: Blaine Luke MD Vital Signs Most recent to oldest 1 2 3 [Reference Range]: Height 160.02 cm 160.02 cm (05/26/20 9:59 AM) (05/25/20 3:05 PM) Blood Pressure [90-140/60-90 179/73 mmHg 177/67 mmHg 178 /70 mmHg mmHg] *HI* *HI* *HI* (05/26/20 2:30 PM) (05/26/20 2:00 PM) (05/26/20 1:4 5 PM) Respiratory Rate [14-20 BRMIN] 17 BRMIN 13 BRMIN 1 4 BRMIN (05/26/20 1:45 PM) *LOW* (05/26/20 1:15 PM) (05/26/20 1:30 PM) Weight 64.545 kg 66.818 kg (05/26/20 9:59 AM) (05/25/20 3:05 PM) Body Mass Index 25.21 m2 26.09 m2 (05/26/20 9:59 AM) (05/25/20 3:05 PM) Problem List Condition Effective Dates Status Health Status Informant CA - Cancer of colon(Confirmed) Active Stroke(Confirmed) Resolved H/O: stroke(Confirmed) Active HT - Hypertension(Confirmed) Active Hyperlipidemia(Confirmed) Resolved HTN (hypertension)(Confirmed) Resolved Kidney disease(Confirmed) Resolved Colon cancer(Confirmed) Resolved Allergies, Adverse Reactions, Alerts Substance Reaction Severity Status amLODIPine Active Medications Ancef + sterile water 20 mL 2 gm, Route: IVP, PRE OP, Dosing Weight 66.818, kg, Start date: 05/25/20 15:00:00 CONFECTIONERY COOKER, Duration: 1 day, Stop date: 05/26/20 14:59:00 CONFECTIONERY COOKER, ABX Indication: Surgical Prophylaxis, 0 Notes: (Same As: Ancef, Kefzol) MEDICATION WASTE Product Size: 1000 mgProduct Wasted: ___ mg Start Date: 05/25/20 Stop Date: 05/26/20 Status: CompletedANES acetaminophen 1,000 mg, Route: PO, Drug form: TAB, ONCE, Dosing Weight 64.545, kg, PRN Pain Score 1-3, Start date:05/26/20 13:11:00 CONFECTIONERY COOKER Start Date: 05/26/20 Stop Date: 05/26/20 Status: DiscontinuedANES fentaNYL 25 microgram, Route: IVP, Q5Min, Dosing Weight 64.545, kg, PRN Pain Score 4-6, Priority: Routine, Start date: 05/26/20 13:11:00 CONFECTIONERY COOKER, Duration: 4 doses or times, Stop date: Limited # of times Start Date: 05/26/20 Stop Date: 05/26/20 Status: DiscontinuedANES flumazenil 0.2 mg, Route: IVP, PRN, Dosing Weight 64.545, kg, PRN Benzodiazepine Reversal, Initial dose, Start date: 05/26/20 13:11:00 CONFECTIONERY COOKER, Duration: 30 day, Stop date: 06/25/20 13:10:00 CONFECTIONERY COOKER Start Date: 05/26/20 Stop Date: 05/26/20 Status: DiscontinuedANES hydrALAZINE 10 mg, Route: IVP, Q20Min, Dosing Weight 64.545, kg, PRN Elevated BP, Start date: 05/26/20 13:11:00 CONFECTIONERY COOKER, Duration: 2 doses or times, Stop date: Limited # of times Start Date: 05/26/20 Stop Date: 05/26/20 Status: DiscontinuedANES HYDROmorphone 0.5 mg, Route: IVP, Q5Min, Dosing Weight 64.545, kg, PRN Pain Score 7-10, Start date: 05/26/20 13:11:00 CONFECTIONERY COOKER, Duration: 4 doses or times, Stop date: Limited # of times Start Date: 05/26/20 Stop Date: 05/26/20 Status: DiscontinuedANES labetalol 10 mg, Route: IVP, Q5Min, Dosing Weight 64.545, kg, PRN Elevated BP, Start date: 05/26/20 13:11:00 CONFECTIONERY COOKER, Duration: 5 doses or times, Stop date: Limited # of times Start Date: 05/26/20 Stop Date: 05/26/20 Status: DiscontinuedANES naloxone 0.4 mg, Route: IVP, Q2MIN, Dosing Weight 64.545, kg, PRN Narcotic Reversal, Start date: 05/26/20 13:11:00 CONFECTIONERY COOKER, Duration: 8 doses or times, Stop date: Limited # of times Start Date: 05/26/20 Stop Date: 05/26/20 Status: DiscontinuedANES ondansetron 4 mg, Route: IVP, ONCE, Dosing Weight 64.545, kg, PRN Nausea & Vomiting, Start date: 05/26/20 13:11:00 CONFECTIONERY COOKER Start Date: 05/26/20 Stop Date: 05/26/20 Status: DiscontinuedANES promethazine 6.25 mg, Route: IVPB, ONCE, Dosing Weight 64.545, kg, PRN Nausea & Vomiting, Start date: 05/26/20 13:11:00 CONFECTIONERY COOKER Start Date: 05/26/20 Stop Date: 05/26/20 Status: DiscontinuedceFAZolin (ANES) Route: IV, Drug form: INJ, ONCE, Stop date: 05/26/20 11:52:00 CONFECTIONERY COOKER Start Date: 05/26/20 Stop Date: 05/26/20 Status: Completeddexamethasone (ANES) Route: IV, Drug form: INJ, ONCE, Stop date: 05/26/20 11:57:00 CONFECTIONERY COOKER Start Date: 05/26/20 Stop Date: 05/26/20 Status: CompletedePHEDrine (ANES) Route: IV, Drug form: INJ, ONCE, Stop date: 05/26/20 12:27:00 CONFECTIONERY COOKER Start Date: 05/26/20 Stop Date: 05/26/20 Status: CompletedfentaNYL (ANES) Route: IV, Drug form: INJ, ONCE, Stop date: 05/26/20 11:52:00 CONFECTIONERY COOKER Start Date: 05/26/20 Stop Date: 05/26/20 Status: Completedglycopyrrolate (ANES) Route: IV, Drug form: INJ, ONCE, Stop date: 05/26/20 13:23:00 CONFECTIONERY COOKER Start Date: 05/26/20 Stop Date: 05/26/20 Status: Completedlabetalol (ANES) Route: IV, Drug form: INJ, ONCE, Stop date: 05/26/20 13:23:00 CONFECTIONERY COOKER Start Date: 05/26/20 Stop Date: 05/26/20 Status: CompletedLactated Ringers Injection IV 1000 mL 1,000 mL, Rate: 75 ml/hr, Infuse over: 13.3 hr, Route: IV, Dosing Weight 66.818 kg, Total Volume: 1,000, Start date: 05/26/20 9:44:00 CONFECTIONERY COOKER, Duration: 30 day, Stop date: 06/25/20 9:43:00 CONFECTIONERY COOKER, 1.74, m2 Start Date: 05/26/20 Stop Date: 05/26/20 Status: Discontinuedlidocaine (ANES) Route: IV, Drug form: INJ, ONCE, Stop date: 05/26/20 11:52:00 CONFECTIONERY COOKER Start Date: 05/26/20 Stop Date: 05/26/20 Status: Completedneostigmine (ANES) Route: IV, Drug form: INJ, ONCE, Stop date: 05/26/20 13:23:00 CONFECTIONERY COOKER Start Date: 05/26/20 Stop Date: 05/26/20 Status: Completednorepinephrine (ANES) Route: IV, Drug form: INJ, ONCE, Stop date: 05/26/20 11:52:00 CONFECTIONERY COOKER Start Date: 05/26/20 Stop Date: 05/26/20 Status: Completedondansetron (ANES) Route: IV, Drug form: INJ, ONCE, Stop date: 05/26/20 11:57:00 CONFECTIONERY COOKER Start Date: 05/26/20 Stop Date: 05/26/20 Status: Completedpropofol (ANES) Route: IV, Drug form: INJ, ONCE, Stop date: 05/26/20 11:52:00 CONFECTIONERY COOKER Start Date: 05/26/20 Stop Date: 05/26/20 Status: Completedrocuronium (ANES) Route: IV, Drug form: INJ, ONCE, Stop date: 05/26/20 11:52:00 CONFECTIONERY COOKER Start Date: 05/26/20 Stop Date: 05/26/20 Status: CompletedSodium Chloride 0.9% IV (ANES) 500 mL Route: IV, Total Volume: 500, Start date: 05/26/20 10:50:00 CONFECTIONERY COOKER, Stop date: 05/26/20 11:50:00 CONFECTIONERY COOKER Start Date: 05/26/20 Stop Date: 05/26/20 Status: CompletedSodium Chloride 0.9% IV 500 mL 500 mL, Rate: 75 ml/hr, Infuse over: 6.7 hr, Route: IV, Dosing Weight 66.818 kg, Total Volume: 500, Start date: 05/26/20 9:44:00 CONFECTIONERY COOKER, Duration: 30 day, Stop date: 06/25/20 9:43:00 CONFECTIONERY COOKER, 1.74, m2 Start Date: 05/26/20 Stop Date: 05/26/20 Status: Discontinuedvancomycin (ANES) 1000 mg Route: IV, Drug form: INJ, Start date: 05/26/20 10:50:00 CONFECTIONERY COOKER, Stop date: 05/26/20 11:50:00 CONFECTIONERY COOKER Start Date: 05/26/20 Stop Date: 05/26/20 Status: Completedvancomycin + Sodium Chloride 0.9% IV 250 mL 1 gm, Route: IVPB, PRE OP, Dosing Weight 66.818, kg, Start date: 05/25/20 15:00:00 CONFECTIONERY COOKER, Duration: 1 day, Stop date: 05/26/20 14:59:00 CONFECTIONERY COOKER, ABX Indication: Surgical Prophylaxis, 0 Notes: TIME CRITICAL MEDICATION(Same As: Vancocin)Infusion rate< 1000 mg: infuse over 1 [id number] - 1500 mg: infuse over 1.5 [id number] - 2000 mg: infuse over 2 hours> 2001 mg: infuse over 2.5 hoursFor adult patients only: Round to nearest 250 mg per Medical Staff approval MEDICATION WASTE Product Size: 1000 mgProduct Wasted: ___ mg Start Date: 05/25/20 Stop Date: 05/26/20 Status: Completed Results Most recent to oldest [Reference Range]: 1 eGFR 10 mL/min/1.73m2 1 *NA* (05/26/20 9:09 AM) ABO/Rh B POS *Unknown* (05/26/20 9:09 AM) Antibody Scrn Negative (05/26/20 9:09 AM) AGAP [10.0-20.0 mEq/L] 10.6 mEq/L (05/26/20 9:09 AM) BUN [7-22 mg/dL] 20 mg/dL (05/26/20 9:09 AM) Calcium Lvl [8.5-10.5 mg/dL] 9.7 mg/dL (05/26/20 9:09 AM) Chloride Lvl [95-109 mEq/L] 107 mEq/L (05/26/20 9:09 AM) CO2 [24-32 mEq/L] 24 mEq/L (05/26/20 9:09 AM) Creatinine Lvl [0.50-1.40 mg/dL] 4.97 mg/dL *HI* (05/26/20 9:09 AM) Glucose Lvl [70-99 mg/dL] 84 mg/dL (05/26/20 9:09 AM) Potassium Lvl [3.5-5.1 mEq/L] 3.6 mEq/L (05/26/20 9:09 AM) Sodium Lvl [135-145 mEq/L] 138 mEq/L (05/26/20 9:09 AM) Coronavirus (COVID-19) KAYLEE [Not Detected] Not Detected (05/26/20 7:47 AM) 1Result Comment: The eGFR is calculated using the CKD-EPI formula. In most young, healthy individualsthe eGFR will be >90 mL/min/1.73m2. The eGFR declines with age. An eGFR of 60-89 may be normal insome populations, particularly the elderly, for whom the CKD-EPI formula has not been extensively validated. Use of the eGFR is not recommended in the following populations: Individuals with unstable creatinine concentrations, including patients and those with serious co-morbid conditions. Patients with extremes in muscle mass or diet. The data above are obtained from the National Kidney Disease Education Program (NKDEP) which additionally recommends that when the eGFR is used in patients with extremes of body mass index for purposesof drug dosing, the eGFR should be multiplied by the estimated BMI. Immunizations No data available for this section Procedures Procedure Date Related Diagnosis Body Site Status Colectomy Completed Thyroidectomy Completed Total hysterectomy Completed Social History Social History Type Response Alcohol Never Smoking Status Never smoker; Previous treat ment: None; Concerns about tobacco use in household: No; Exposure to Tobacco Smoke None; Cigarette Smoking Last 365 Days No; Reg Smoking Cessation Counseling No entered on: 05/26/20 Assessment and Plan No data available for this section
--- OUTSIDE RECORDS SUMMARY | 2020-07-28 23:23 | XMS REPORT | Summary of Care ---
:1955 Author Organization [facility] Address [address] [place], [place] [address]- Encounter HQ Henrik(FIN) [id number] Date(s): 05/26/20 - 05/26/20 [facility] [address] [place] [address]- Discharge Disposition: Home or Self Care Attending [...] Weight 66.818, kg, Start date: 05/25/20 15:00:00 DOG BARBER, Duration: 1 day, Stop date: 05/26/20 14:59:00 DOG BARBER, ABX Indication: Surgical Prophylaxis, 0 Notes: (Same As: Ancef, Kefzol) MEDICATION WASTE Product Size: 1000 mgProduct Wasted: ___ mg Start Date: 05/25/20 Stop Date: 05/26/20 Status: CompletedANES acetaminophen 1,000 mg, Route: PO, Drug form: TAB, ONCE, Dosing Weight 64.545, kg, PRN Pain Score 1-3, Start date:05/26/20 13:11:00 DOG BARBER Start Date: 05/26/20 Stop Date: 05/26/20 Status: DiscontinuedANES fentaNYL 25 microgram, Route: IVP, Q5Min, Dosing Weight 64.545, kg, PRN Pain Score 4-6, Priority: Routine, Start date: 05/26/20 13:11:00 DOG BARBER, Duration: 4 doses or times, Stop date: Limited # of times Start Date: 05/26/20 Stop Date: 05/26/20 Status: DiscontinuedANES flumazenil 0.2 mg, Route: IVP, PRN, Dosing Weight 64.545, kg, PRN Benzodiazepine Reversal, Initial dose, Start date: 05/26/20 13:11:00 DOG BARBER, Duration: 30 day, Stop date: 06/25/20 13:10:00 DOG BARBER Start Date: 05/26/20 Stop Date: 05/26/20 Status: DiscontinuedANES hydrALAZINE 10 mg, Route: IVP, Q20Min, Dosing Weight 64.545, kg, PRN Elevated BP, Start date: 05/26/20 13:11:00 DOG BARBER, Duration: 2 doses or times, Stop date: Limited # of times Start Date: 05/26/20 Stop Date: 05/26/20 Status: DiscontinuedANES HYDROmorphone 0.5 mg, Route: IVP, Q5Min, Dosing Weight 64.545, kg, PRN Pain Score 7-10, Start date: 05/26/20 13:11:00 DOG BARBER, Duration: 4 doses or times, Stop date: Limited # of times Start Date: 05/26/20 Stop Date: 05/26/20 Status: DiscontinuedANES labetalol 10 mg, Route: IVP, Q5Min, Dosing Weight 64.545, kg, PRN Elevated BP, Start date: 05/26/20 13:11:00 DOG BARBER, Duration: 5 doses or times, Stop date: Limited # of times Start Date: 05/26/20 Stop Date: 05/26/20 Status: DiscontinuedANES naloxone 0.4 mg, Route: IVP, Q2MIN, Dosing Weight 64.545, kg, PRN Narcotic Reversal, Start date: 05/26/20 13:11:00 DOG BARBER, Duration: 8 doses or times, Stop date: Limited # of times Start Date: 05/26/20 Stop Date: 05/26/20 Status: DiscontinuedANES ondansetron 4 mg, Route: IVP, ONCE, Dosing Weight 64.545, kg, PRN Nausea & Vomiting, Start date: 05/26/20 13:11:00 DOG BARBER Start Date: 05/26/20 Stop Date: 05/26/20 Status: DiscontinuedANES promethazine 6.25 mg, Route: IVPB, ONCE, Dosing Weight 64.545, kg, PRN Nausea & Vomiting, Start date: 05/26/20 13:11:00 DOG BARBER Start Date: 05/26/20 Stop Date: 05/26/20 Status: DiscontinuedceFAZolin (ANES) Route: IV, Drug form: INJ, ONCE, Stop date: 05/26/20 11:52:00 DOG BARBER Start Date: 05/26/20 Stop Date: 05/26/20 Status: Completeddexamethasone (ANES) Route: IV, Drug form: INJ, ONCE, Stop date: 05/26/20 11:57:00 DOG BARBER Start Date: 05/26/20 Stop Date: 05/26/20 Status: CompletedePHEDrine (ANES) Route: IV, Drug form: INJ, ONCE, Stop date: 05/26/20 12:27:00 DOG BARBER Start Date: 05/26/20 Stop Date: 05/26/20 Status: CompletedfentaNYL (ANES) Route: IV, Drug form: INJ, ONCE, Stop date: 05/26/20 11:52:00 DOG BARBER Start Date: 05/26/20 Stop Date: 05/26/20 Status: Completedglycopyrrolate (ANES) Route: IV, Drug form: INJ, ONCE, Stop date: 05/26/20 13:23:00 DOG BARBER Start Date: 05/26/20 Stop Date: 05/26/20 Status: Completedlabetalol (ANES) Route: IV, Drug form: INJ, ONCE, Stop date: 05/26/20 13:23:00 DOG BARBER Start Date: 05/26/20 Stop Date: 05/26/20 Status: CompletedLactated Ringers Injection IV 1000 mL 1,000 mL, Rate: 75 ml/hr, Infuse over: 13.3 hr, Route: IV, Dosing Weight 66.818 kg, Total Volume: 1,000, Start date: 05/26/20 9:44:00 DOG BARBER, Duration: 30 day, Stop date: 06/25/20 9:43:00 DOG BARBER, 1.74, m2 Start Date: 05/26/20 Stop Date: 05/26/20 Status: Discontinuedlidocaine (ANES) Route: IV, Drug form: INJ, ONCE, Stop date: 05/26/20 11:52:00 DOG BARBER Start Date: 05/26/20 Stop Date: 05/26/20 Status: Completedneostigmine (ANES) Route: IV, Drug form: INJ, ONCE, Stop date: 05/26/20 13:23:00 DOG BARBER Start Date: 05/26/20 Stop Date: 05/26/20 Status: Completednorepinephrine (ANES) Route: IV, Drug form: INJ, ONCE, Stop date: 05/26/20 11:52:00 DOG BARBER Start Date: 05/26/20 Stop Date: 05/26/20 Status: Completedondansetron (ANES) Route: IV, Drug form: INJ, ONCE, Stop date: 05/26/20 11:57:00 DOG BARBER Start Date: 05/26/20 Stop Date: 05/26/20 Status: Completedpropofol (ANES) Route: IV, Drug form: INJ, ONCE, Stop date: 05/26/20 11:52:00 DOG BARBER Start Date: 05/26/20 Stop Date: 05/26/20 Status: Completedrocuronium (ANES) Route: IV, Drug form: INJ, ONCE, Stop date: 05/26/20 11:52:00 DOG BARBER Start Date: 05/26/20 Stop Date: 05/26/20 Status: CompletedSodium Chloride 0.9% IV (ANES) 500 mL Route: IV, Total Volume: 500, Start date: 05/26/20 10:50:00 DOG BARBER, Stop date: 05/26/20 11:50:00 DOG BARBER Start Date: 05/26/20 Stop Date: 05/26/20 Status: CompletedSodium Chloride 0.9% IV 500 mL 500 mL, Rate: 75 ml/hr, Infuse over: 6.7 hr, Route: IV, Dosing Weight 66.818 kg, Total Volume: 500, Start date: 05/26/20 9:44:00 DOG BARBER, Duration: 30 day, Stop date: 06/25/20 9:43:00 DOG BARBER, 1.74, m2 Start Date: 05/26/20 Stop Date: 05/26/20 Status: Discontinuedvancomycin (ANES) 1000 mg Route: IV, Drug form: INJ, Start date: 05/26/20 10:50:00 DOG BARBER, Stop date: 05/26/20 11:50:00 DOG BARBER Start Date: 05/26/20 Stop Date: 05/26/20 Status: Completedvancomycin + Sodium Chloride 0.9% IV 250 mL 1 gm, Route: IVPB, PRE OP, Dosing Weight 66.818, kg, Start date: 05/25/20 15:00:00 DOG BARBER, Duration: 1 day, Stop date: 05/26/20 14:59:00 DOG BARBER, ABX Indication: Surgical Prophylaxis, 0 Notes: TIME CRITICAL MEDICATION(Same As: Vancocin)Infusion rate< 1000 mg: infuse over 1 [id number] - 1500 mg: infuse over 1.5 [id number] - 2000 mg: infuse over 2 hours> [...]
--- OUTSIDE RECORDS SUMMARY | 2020-07-28 23:23 | XMS REPORT | Continuity of Care Document ---
:1955 Author Organization [facility] Information [place] Care Team Providers Name Role Phone [email or web address] Unavailable Un available Problems Problem Status Onset Classification Date Comments Sourc e Date Reported UNK Active 05/17/20 20 [facility] CATHETER DIALYSIS Active 05/17/20 PERITONEAL 20 [place] ARM PAIN Active 04/05/20 20 [facility] DR SENT Active 04/05/20 20 [facility] NEW EVALUATION Active 08/03/[address] N18.6 Active 03/09/20 19 [facility] CKD Active 01/16/[address] 620.2 - OVARIAN Active 04/08/20 O PID CYST [address] FOLLOW UP Active 03/12/[address] CANCER OF RECTAL Active 01/10/[address] COLON CANCER Active 12/27/[address] [place] - Cancer of Active Problem 11/08/2012 [facility], DAMIAN Hanley, DAMIAN Baez Cholesterol Active Problem 11/08/2012 [facility], DAMIAN Hanley, OPID Nestor H/O: stroke Active Problem 11/08/2012 [facility], DAMIAN Hanley, OPILogan Baez HT - Hypertension Active Problem 11/08/2012 [facility], DAMIAN Hanley, OPID Nestor Pain in arm, 04/11/2020 unspecified [place] Malignant tumor of Active Problem 07/23/2020 [facility] colon (disorder) Tr[place]ian ro, [place] Cerebrovascular Resolved Problem 07/23/2020 Mis [facility] accident Neuro,[facility] (disorder) [place] 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 Neuro dialysis due to end stage renal disease (finding) History of - CVA Active Problem 07/23/2020 Mi senait (context-dependent N euro, category) [place] Hypertensive Active Problem 07/23/2020 Mische r disorder, systemic N euro, arterial [place] (disorder) Hyperlipidemia Resolved Problem 07/23/2020 [facility] her (disorder) Neuro,[facility] Kidney disease Resolved Problem 07/23/2020 [facility] her (disorder) Neuro,[facility] Spinal cord Active Problem [facility] ([facility]order) PAIN IN ARM, Active UNSPECIFIED [place] Medications Medication Details Route Status Patient Ordering Order Source Instructions Provider Date Ramipril 5 mg, PO, Active Mischer Daily, 0 2020 Neuro Refill(s) Spironolactone 1 mg, PO, Active Mischer Daily, # 60 2020 Neuro tab, 0 Refill(s) Dialyvite 800 0 [facility] Hydralazine 25 mg, PO, Inactive cher Daily, 0 2020 Neuro Refill(s) glycopyrrolate Route: IV, Drug Inactive (ANES) form: INJ, 2019 [facility] ONCE, Stop date: 05/26/20 13:23:00 BUILDING DRAFTING OFFICER neostigmine Route: IV, Drug Inactive (ANES) form: INJ, 2019 ONCE, Stop date: 05/26/20 13:23:00 BUILDING DRAFTING OFFICER labetalol (ANES) Route: IV, Drug Inactive form: INJ, 2019 ONCE, Stop date: 05/26/20 13:23:00 BUILDING DRAFTING OFFICER Hydralazine 10 mg, Route: Inactive IVP, Q20Min, 2019 [facility] Dosing Weight 64.545, kg, PRN Elevated BP, Start date: 05/26/20 13:11:00 BUILDING DRAFTING OFFICER, Duration: 2 doses or times, Stop date: Limited # of times Labetalol 10 mg, Route: Inactive IVP, Q5Min, 2019 [facility] Dosing Weight 64.545, kg, PRN Elevated BP, Start date: 05/26/20 13:11:00 BUILDING DRAFTING OFFICER, Duration: 5 doses or times, Stop date: Limited # of times Acetaminophen 1,000 mg, Inactive Route: PO, Drug [facility] form: TAB, ONCE, Dosing Weight 64.545, kg, PRN Pain Score 1-3, Start date: 05/26/20 13:11:00 BUILDING DRAFTING OFFICER Fentanyl 25 microgram, Inactive Route: IVP, 2019 [facility] Q5Min, Dosing Weight 64.545, kg, PRN Pain Score 4-6, Priority: Routine, Start date: 05/26/20 13:11:00 BUILDING DRAFTING OFFICER, Duration: 4 doses or times, Stop date: Limited # of times Hydromorphone 0.5 mg, Route: Inactive IVP, Q5Min, 2019 [facility] Dosing Weight 64.545, kg, PRN Pain Score 7-10, Start date: 05/26/20 13:11:00 BUILDING DRAFTING OFFICER, Duration: 4 doses or times, Stop date: Limited # of times Flumazenil 0.2 mg, Route: Inactive IVP, PRN, 2019 [facility] Dosing Weight 64.545, kg, PRN Benzodiazepine Reversal, Initial dose, Start date: 05/26/20 13:11:00 BUILDING DRAFTING OFFICER, Duration: 30 day, Stop date: 06/25/20 13:10:00 BUILDING DRAFTING OFFICER Naloxone 0.4 mg, Route: Inactive IVP, Q2MIN, 2019 [facility] Dosing Weight 64.545, kg, PRN Narcotic Reversal, Start date: 05/26/20 13:11:00 BUILDING DRAFTING OFFICER, Duration: 8 doses or times, Stop date: Limited # of times Ondansetron 4 mg, Route: Inactive IVP, ONCE, 2019 [facility] Dosing Weight 64.545, kg, PRN Nausea & Vomiting, Start date: 05/26/20 13:11:00 BUILDING DRAFTING OFFICER Promethazine 6.25 mg, Route: Inactive IVPB, ONCE, 2019 [facility] Dosing Weight 64.545, kg, PRN Nausea & Vomiting, Start date: 05/26/20 13:11:00 BUILDING DRAFTING OFFICER ePHEDrine (ANES) Route: IV, Drug Inactive form: INJ, 2019 ONCE, Stop date: 05/26/20 12:27:00 BUILDING DRAFTING OFFICER dexamethasone Route: IV, Drug Inactive H (ANES) form: INJ, 2019 ONCE, Stop date: 05/26/20 11:57:00 BUILDING DRAFTING OFFICER ondansetron Route: IV, Drug Inactive (ANES) form: INJ, 2019, Stop date: 05/26/20 11:57:00 BUILDING DRAFTING OFFICER fentaNYL (ANES) Route: IV, Drug Inactive form: INJ, 2019, Stop date: 05/26/20 11:52:00 BUILDING DRAFTING OFFICER lidocaine (ANES) Route: IV, Drug Inactive MH form: INJ, 2019, Stop date: 05/26/20 11:52:00 BUILDING DRAFTING OFFICER propofol (ANES) Route: IV, Drug Inactive form: INJ, 2019, Stop date: 05/26/20 11:52:00 BUILDING DRAFTING OFFICER rocuronium (ANES) Route: IV, Drug Inactive 05/26 form: INJ, 2019, Stop date: 05/26/20 11:52:00 BUILDING DRAFTING OFFICER ceFAZolin (ANES) Route: IV, Drug Inactive form: INJ, 2019, Stop date: 05/26/20 11:52:00 BUILDING DRAFTING OFFICER norepinephrine Route: IV, Drug Inactive MH (ANES) form: INJ, 2019, Stop date: 05/26/20 11:52:00 BUILDING DRAFTING OFFICER vancomycin (ANES) Route: IV, Drug Inactive 05/26 1000 mg form: INJ, 2019 Start date: 05/26/20 10:50:00 BUILDING DRAFTING OFFICER, Stop date: 05/26/20 11:50:00 BUILDING DRAFTING OFFICER Sodium Chloride Route: IV, Inactive 0.9% IV (ANES) Total Volume: 2019 [facility] 500 mL 500, Start date: 05/26/20 10:50:00 BUILDING DRAFTING OFFICER, Stop date: 05/26/20 11:50:00 BUILDING DRAFTING OFFICER Calcium Chloride 1,000 mL, Rate: Inactive 0.0014 MEQ/ML / 75 ml/hr, [address] [facility] [address] Potassium Infuse over: Chloride 0.004 13.3 hr, Route: MEQ/ML / Sodium IV, Dosing Chloride 0.103 Weight 66.818 MEQ/ML / Sodium kg, Total Lactate 0.028 Volume: 1,000, MEQ/ML Injectable Start date: Solution 05/26/20 9:44:00 BUILDING DRAFTING OFFICER, Duration: 30 day, Stop date: 06/25/20 9:43:00 BUILDING DRAFTING OFFICER, 1.74, m2 Sodium Chloride 500 mL, Rate: Inactive 0.9% IV 500 mL 75 ml/hr, 2019 [facility] Infuse over: 6.7 hr, Route: IV, Dosing Weight 66.818 kg, Total Volume: 500, Start date: 05/26/20 9:44:00 BUILDING DRAFTING OFFICER, Duration: 30 day, Stop date: 06/25/20 9:43:00 BUILDING DRAFTING OFFICER, 1.74, m2 Vancomycin 2001 mg: No Longer infuse over 2.5 2019 [facility] hours For adult patients only: Round to nearest 250 mg per Medical Staff approval MEDICATION WASTE Product Size: 1000 mg Product Wasted: ___ mg Ancef + sterile Notes: (Same No Longer water 20 mL As: Ancef, 2019 [facility] Kefzol) MEDICATION WASTE Product Size: 1000 mg Product Wasted: ___ mg Sodium Chloride 500 mL, Infuse Inactive 0.9% (Bolus) IV Over: 20 2019 [facility] minutes, Route: IV, ONCE, Dosing Weight 66.818 kg, Start date: 05/17/20 15:27:00 BUILDING DRAFTING OFFICER, Stop date: 05/17/20 15:27:00 BUILDING DRAFTING OFFICER Hydralazine 10 mg, Route: No Longer IVP, Q20Min, 2019 [facility] Dosing Weight 66.818, kg, PRN Elevated BP, Start date: 05/17/20 15:27:00 BUILDING DRAFTING OFFICER, Duration: 2 doses or times, Stop date: Limited # of times Acetaminophen 1,000 mg, No Longer Route: PO, Drug Active 2019 [facility] form: TAB, ONCE, Dosing Weight 66.818, kg, PRN Pain Score 1-3, Start date: 05/17/20 15:27:00 BUILDING DRAFTING OFFICER Oxycodone 5 mg, Route: No Longer Hydrochloride 5 PO, Drug form: 2019 [facility] [place] Oral Tablet TAB, Q4H, Dosing Weight 66.818, kg, PRN Pain Score 4-6, Start date: 05/17/20 15:27:00 BUILDING DRAFTING OFFICER, Duration: 30 day, Stop date: 06/16/20 15:26:00 BUILDING DRAFTING OFFICER Morphine 2 mg, Route: No Longer IVP, Q5Min, [address] [place] [address] Dosing Weight 66.818, kg, PRN Pain Score 4-6, Start date: 05/17/20 15:27:00 BUILDING DRAFTING OFFICER, Duration: 5 doses or times, Stop date: Limited # of times Fentanyl 25 microgram, No Longer Route: IVP, [address] Q5Min, Dosing Weight 66.818, kg, PRN Pain Score 4-6, Priority: Routine, Start date: 05/17/20 15:27:00 BUILDING DRAFTING OFFICER, Duration: 4 doses or times, Stop date: Limited # of times Hydromorphone 0.5 mg, Route: No Longer H IVP, Q5Min, 2019 [facility] Dosing Weight 66.818, kg, PRN Pain Score 7-10, Start date: 05/17/20 15:27:00 BUILDING DRAFTING OFFICER, Duration: 4 doses or times, Stop date: Limited # of times Flumazenil 0.2 mg, Route: No Longer IVP, PRN, 2019 [facility] Dosing Weight 66.818, kg, PRN Benzodiazepine Reversal, Initial dose, Start date: 05/17/20 15:27:00 BUILDING DRAFTING OFFICER, Duration: 30 day, Stop date: 06/16/20 15:26:00 BUILDING DRAFTING OFFICER Naloxone 0.4 mg, Route: No Longer IVP, Q2MIN, [facility] 2019 [facility] Dosing Weight 66.818, kg, PRN Narcotic Reversal, Start date: 05/17/20 15:27:00 BUILDING DRAFTING OFFICER, Duration: 8 doses or times, Stop date: Limited # of times Ephedrine 5 mg, Route: No Longer IVP, Q5Min, 2019 [facility] Dosing Weight 66.818, kg, PRN Low Blood Pressure, Start date: 05/17/20 15:27:00 BUILDING DRAFTING OFFICER, Duration: 30 day, Stop date: 06/16/20 15:26:00 BUILDING DRAFTING OFFICER Albuterol 0.83 2.49 mg, Route: No Longer MG/ML Inhalant NEB, Q20Min, 2019 [place] Solution Dosing Weight 66.818, kg, PRN Wheezing, Priority: STAT, Start date: 05/17/20 15:27:00 BUILDING DRAFTING OFFICER, Duration: 30 day, Stop date: 06/16/20 15:26:00 BUILDING DRAFTING OFFICER Diphenhydramine 12.5 mg, Route: No Longer IVP, [facility]: [facility], Dosing Weight 66.818, kg, PRN Itching, Start date: 05/17/20 15:27:00 BUILDING DRAFTING OFFICER, Duration: 30 day, Stop date: 06/16/20 15:26:00 BUILDING DRAFTING OFFICER Ondansetron 4 mg, Route: No Longer IVP, ONCE, Active 2019 [facility] Dosing Weight 66.818, kg, PRN Nausea & Vomiting, Start date: 05/17/20 15:27:00 BUILDING DRAFTING OFFICER fentaNYL (ANES) Route: IV, Drug Inactive form: INJ, 2019, Stop date: 05/17/20 12:18:00 BUILDING DRAFTING OFFICER propofol (ANES) Route: IV, Drug Inactive form: INJ, 2019, Stop date: 05/17/20 12:18:00 BUILDING DRAFTING OFFICER ceFAZolin (ANES) Route: IV, Drug Inactive form: INJ, 2019, Stop date: 05/17/20 12:08:00 BUILDING DRAFTING OFFICER Sodium Chloride Route: IV, Inactive 0.9% IV (ANES) Total Volume: 2019 [facility] theast 500 mL 500, Start date: 05/17/20 12:08:00 BUILDING DRAFTING OFFICER, Stop date: 05/17/20 13:08:00 BUILDING DRAFTING OFFICER midazolam (ANES) Route: IV, Drug Inactive form: SOLN, 2019, Stop date: 05/17/20 12:03:00 BUILDING DRAFTING OFFICER vancomycin (ANES) Route: IV, Drug Inactive 05/17 1000 mg form: INJ, 2019 Start date: 05/17/20 11:46:00 BUILDING DRAFTING OFFICER, Stop date: 05/17/20 12:46:00 BUILDING DRAFTING OFFICER Calcium Chloride 1,000 mL, Rate: Inactive 0.0014 MEQ/ML / 75 ml/hr, 2019 [facility] Potassium Infuse over: Chloride 0.004 13.3 hr, Route: MEQ/ML / Sodium IV, Dosing Chloride 0.103 Weight 66.818 MEQ/ML / Sodium kg, Total Lactate 0.028 Volume: 1,000, MEQ/ML Injectable Start date: Solution 05/17/20 10:07:00 BUILDING DRAFTING OFFICER, Duration: 30 day, Stop date: 06/16/20 10:06:00 BUILDING DRAFTING OFFICER, 1.74, m2 Vancomycin 1 gm, Route: No Longer IVPB, Drug Active 2019 [facility] form: INJ, PRE OP, Dosing Weight 63.636, kg, Start date: 05/16/20 17:00:00 BUILDING DRAFTING OFFICER, Duration: 1 day, Stop date: 05/17/20 16:59:00 BUILDING DRAFTING OFFICER, ABX Indication: Surgical Prophylaxis Ancef 2 gm, Route: No Longer IVPB, PRE OP, Active 2019 [facility] Dosing Weight 63.636, kg, Start date: 05/16/20 17:00:00 BUILDING DRAFTING OFFICER, Duration: 1 day, Stop date: 05/17/20 16:59:00 BUILDING DRAFTING OFFICER, ABX Indication: Surgical Prophylaxis Clonidine 0.3 mg = 1 tab, Active Hydrochloride 0.3 PO, TID, 0 2019 [facility] MG Oral Tablet Refill(s) ferrous sulfate 325 mg = 1 tab, Active 325 mg oral PO, Daily, # 30 2019 [place] enteric coated tab, 0 tablet Refill(s), Pharmacy: [id number], 170.18, cm, 04/05/20 21:48:00 CDT, Height, 63.636, kg, 04/05/20 21:48:00 CDT, Weight Nephro-Flash Rx Notes: (Same Inactive as: Nephro-Flash 2019 [place] Rx and Diatx) Give with food. atorvastatin Notes: (Same No Longer as: Lipitor) Active 2019 Dilaudid Notes: (Same Inactive as: Dilaudid) 2019 ceFAZolin (ANES) Route: IV, Drug Inactive form: INJ, 2019 ONCE, Stop date: 04/06/20 17:09:00 CDT glycopyrrolate Route: IV, Drug Inactive (ANES) form: [id number] ONCE, Stop date: 04/06/20 16:50:00 CDT neostigmine Route: IV, Drug Inactive (ANES) form: INJ, 2019 ONCE, Stop date: 04/06/20 16:50:00 CDT sugammadex (ANES) Route: IV, Drug Inactive 04/06 form: SOLN, 2019 ONCE, Stop date: 04/06/20 16:50:00 CDT protamine (ANES) Route: IV, Drug Inactive form: [id number], Stop date: 04/06/20 16:32:00 CDT normal saline 1,000 mL, Rate: No Longer 0.9% IV 1,000 mL 100 ml/hr, Active 2019 [place] Infuse over: 10 hr, Route: IV, Dosing Weight 63.636 kg, Total Volume: 1,000, Start date: 04/06/20 16:26:00 CDT, Duration: 30 day, Stop date: 05/06/20 16:25:00 BUILDING DRAFTING OFFICER, 1.74, m2, 0 heparin Notes: porcine No Longer heparin Active 2019 [facility] heparin (ANES) Route: IV, Drug Inactive form: [id number], Stop date: 04/06/20 15:08:00 CDT ondansetron Route: IV, Drug Inactive (ANES) form: [id number], Stop date: 04/06/20 15:03:00 CDT rocuronium (ANES) Route: IV, Drug Inactive 04/06 form: [id number], Stop date: 04/06/20 14:53:00 CDT ePHEDrine (ANES) Route: IV, Drug Inactive form: [email or web address], Stop date: 04/06/20 14:48:00 CDT propofol (ANES) Route: IV, Drug Inactive form: [email or web address], Stop date: 04/06/20 14:43:00 CDT lidocaine (ANES) Route: IV, Drug Inactive form: [email or web address], Stop date: 04/06/20 14:43:00 CDT midazolam (ANES) Route: IV, Drug Inactive form: [email or web address], Stop date: 04/06/20 14:38:00 CDT fentaNYL (ANES) Route: IV, Drug Inactive form: INJ, 2019 ONCE, Stop date: 04/06/20 14:38:00 CDT Amidate (ANES) Route: IV, Drug Inactive form: INJ, 2019 ONCE, Stop date: 04/06/20 14:38:00 CDT ceFAZolin (ANES) Route: IV, Drug Inactive form: INJ, 2019 ONCE, Stop date: 04/06/20 14:27:00 CDT vancomycin (ANES) Route: IV, Drug Inactive 04/06 1000 mg form: INJ, 2019 Start date: 04/06/20 13:31:00 CDT, Stop date: 04/06/20 14:31:00 CDT Lactated Ringers Route: IV, Inactive Injection IV Total Volume: 2019 [facility] (ANES) 500 mL 500, Start date: 04/06/20 13:25:00 CDT, Stop date: 04/06/20 14:25:00 CDT Sodium Chloride 500 ml, Rate: Inactive H 0.9% IV 500 ml 25 ml/hr, [address] [facility] Infuse over: 20 hr, Route: IV, Dosing Weight 63.636 kg, Total Volume: 500, Start date: 04/06/20 11:47:00 CDT, Duration: 30 day, Stop date: 05/06/20 11:46:00 BUILDING DRAFTING OFFICER, 1.74, m2 Tylenol 650 mg, Route: Inactive PO, Drug form: 2019 TAB, ONCE, Dosing Weight 63.636, kg, PRN Pain Score 1-3, Start date: 04/06/20 10:33:00 CDT Allopurinol Notes: (Same No Longer as: Zyloprim) Active 2019 Aspirin 81 MG Notes: Do not No Longer Enteric Coated crush or chew. Active 2019 [facility] Tablet (Same As: Ecotrin) Clonidine Notes: (Same No Longer Hydrochloride 0.3 As: Catapres) Active 2019 MG Oral Tablet ferrous gluconate 256 mg, Route: No Longer 04/06 PO, Drug form: 2019 [facility] TAB, Daily, Dosing Weight 63.636, kg, Start date: 04/06/20 9:00:00 CDT, Duration: 30 day, Stop date: 05/05/20 9:00:00 BUILDING DRAFTING OFFICER Triiodothyronine Notes: (Same No Longer as: Cytomel) 2019 [facility] 24 HR Metoprolol Notes: (Same No Longer Tartrate 25 MG as: Toprol XL) 2019 [facility] Extended Release Do Not Crush Tablet [Toprol] paricalcitol Notes: (Same No Longer 0.001 MG Oral as: Zemplar) 2019 [facility] Capsule ferrous sulfate Notes: Give No Longer with food. "Do 2019 [facility] Not Crush" Thyroxine Notes: Take 1 No Longer hour before or 2019 [facility] 2 hours after meal; Enteral feeds may interefere with the absorption of this medication.(Juan e as:Levothroid, Synthroid) Hydralazine Notes: (Same No Longer Hydrochloride 100 as: Apresoline) 2019 MG Oral Tablet May interfere w/enteral feedings Take With Food Hydralazine Notes: (Same No Longer as: Apresoline) 2019 [facility] Push over 5 minutes Benzocaine 15 MG Notes: Same as: No Longer 04/06 / Menthol 3.6 MG Cepacol [address] [facility] [address] Lozenge [Cepacol Sore Throat Pain Relief 15/3.6] Lizeth Ty Notes: (Same No Longer H As: Tessalon 2019 [facility] Perles) "Do Not Crush" tizanidine Notes: (Same No Longer As: Zanaflex) 2019 [facility] Acetaminophen 325 Notes: (Same No Longer MG / Hydrocodone as: Ackerly 2019 [facility] Bitartrate 5 MG 325/5) Do not Oral Tablet exceed 4gm/day [Ackerly 5/325] of acetaminophen. Dextrose 50% 12.5 gm, 25 mL, No Longer 04/06/ H Syringe (D50W) Route: IVP, 2019 [facility] Drug Form: INJ, Dosing Weight 63.636, kg, PRN, PRN Blood Glucose Results, Start date: 04/05/20 20:39:00 CDT, Duration: 30 day, Stop date: 05/05/20 19:38:00 BUILDING DRAFTING OFFICER, 0 Glucagon 1 mg, Route: No Longer IM, Drug form: [address] PDR/INJ, PRN, Dosing Weight 63.636, kg, PRN Blood Glucose Results, Start date: 04/05/20 20:39:00 CDT, Duration: 30 day, Stop date: 05/05/20 19:38:00 BUILDING DRAFTING OFFICER, 0 Docusate Notes: (Same No Longer as: Colace) (Do [facility]) Ondansetron Notes: (Same No Longer as: Zofran) 2019 [facility] MEDICATION WASTE Product Size: 4 mg Product Wasted: ___ mg Melatonin Notes: (Same No Longer as: Melatonin) 2019 [facility] Acetaminophen Notes: Do not No Longer exceed 4 2019 [facility] gm/day. (Same as: Tylenol) atorvastatin 40 40 mg = 1 tab, Active H mg oral tablet PO, Bedtime, # 2019 [facility] 30 tab, 0 Refill(s) Aspirin 81 MG 81 mg = 1 tab, Active Enteric Coated PO, Daily, # 90 2019 [facility] Tablet tab, 3 Refill(s) Ondansetron 4 MG 4 mg = 1 tab, Active H Disintegrating PO, BID, PRN 2019 [place] [facility] Tablet [Zofran] Nausea and Vomiting, Dissolve tab under tongue, # 10 tab, 0 Refill(s) Acetaminophen 300 1 tab, PO, Q6H, Active MG / Codeine PRN Pain, X 7 2019 [facility] Phosphate 30 MG day, # 28 tab, Oral Tablet 0 Refill(s) [Tylenol with Codeine #3] Docusate Sodium 1 tab, PO, BID, Active 50 MG / X 10 day, # 20 2019 [facility] sennosides, LONG TERM tab, 0 8.6 MG Oral Refill(s) Tablet metoprolol 25 mg 25 mg = 1 tab, Active 07/28/ MH oral tablet, PO, Daily, # 30 2019 [facility] extended release tab, 0 Refill(s) Clonidine Notes: (Same No Longer Hydrochloride 0.3 As: Catapres) Active 2018 [facility] MG Oral Tablet metoprolol Notes: (Same No Longer extended release as: Toprol XL) Active 2018 [facility] Do Not Crush Ondansetron Notes: (Same Inactive as: Zofran) 2018 [facility] MEDICATION WASTE Product Size: 4 mg Product Wasted: ___ mg Reglan Notes: (Same Inactive as: Reglan) 2018 [facility] Hydralazine Notes: (Same No Longer as: Apresoline) [facility] 5 minutes Allopurinol Notes: (Same No Longer as: Zyloprim) Active 2018 [facility] ferrous gluconate 256 mg, Route: No Longer 01/17 PO, Drug form: Active 2018 [facility] TAB, Daily, Dosing Weight 62.358, kg, Start date: 01/17/19 9:00:00 CDT, Duration: 30 day, Stop date: 02/15/19 9:00:00 CDT Docusate Sodium Notes: (Same as No Longer 50 MG / Senokot-S) Active 2018 [facility] sennosides, LONG TERM Equiv. to 8.6 MG Oral Zoraida-Colace. Tablet ferrous sulfate Notes: Give No Longer with food. "Do Active 2018eas t Not Crush" paricalcitol Notes: (Same No Longer 0.001 MG Oral as: Zemplar) Active 2018 [facility] Capsule Nifedical XL Notes: (Same No Longer as: Adalat CC, Active 2018 [facility] Procardia XL) Give on empty stomach. Take 1 hour before or 2 hours after meal; "Avoid grapefruit and grapefruit juice". Do not crush Nephro-Flash Rx Notes: (Same No Longer as: Nephro-Flash Active 2018[facility] t Rx and Diatx) Give with food. Triiodothyronine Notes: (Same No Longer as: Cytomel) Active 2018 [facility] Thyroxine Notes: Take 1 No Longer hour before or Active 2018 [facility] 2 hours after meal; Enteral feeds may interefere with the absorption of this medication.(Juan e as:Levothroid, Synthroid) heparin Notes: porcine No Longer heparin Active 2018 [facility] atorvastatin Notes: (Same No Longer as: Lipitor) Active 2018 [facility] Acetaminophen 325 Notes: (Same No Longer MG / Hydrocodone as: Ackerly Active 2018 [facility] Bitartrate 5 MG 325/5) Do not Oral Tablet exceed 4gm/day [Ackerly 5/325] of acetaminophen. Acetaminophen 325 2 tab, Route: Inactive MG / Hydrocodone PO, Dosing 2019 [facility] Bitartrate 5 MG Weight 62.358, Oral Tablet kg, Q4H, STAT, [Ackerly 5/325] Start date: 01/16/19 19:36:00 CDT, Duration: 30 day, Stop date: 02/15/19 16:00:00 CDT Milk of Farnaz Notes: (Same No Longer as: Milk of Active 2018 [facility] Magnesia, MOM) Aspirin 81 MG Notes: Take No Longer Chewable Tablet with food. Active 2018 [facility] Zofran Notes: (Same No Longer as: Zofran) 2018 [facility] MEDICATION WASTE Product Size: 4 mg Product Wasted: ___ mg Lactulose 667 Notes: (Same No Longer MG/ML Oral as:Chronulac) Active [address] [facility] [address] Solution Morphine Notes: (Same No Longer as:MORPhine Active 2018 [facility] Sulfate) Metoprolol Notes: (Same No Longer as: Lopressor) Active 2018 [facility] Push over 2 minutes Epogen Notes: (Same No Longer as: Procrit) Active 2018 [facility] epoetin jennifer 4000 unit/1 ml VL For dialysis only. (Epogen) WASTE: F/P - Red; E -Red MEDICATION WASTE Product Size: 4000 unit Product Wasted: ___ unit Hydralazine Notes: (Same No Longer Hydrochloride 100 as: Apresoline) Active 2018 [facility] MG Oral Tablet May interfere w/enteral feedings Take With Food Promethazine 6.25 mg, Route: Inactive IVPB, ONCE, 2018 [facility] Dosing Weight 62.358, kg, PRN Nausea & Vomiting, Start date: 01/16/19 12:59:00 CDT Naloxone 0.1 mg, Route: Inactive 01/16[facility] SUB-Q, Q6H, 2018 [facility] Dosing Weight 62.358, kg, PRN Itching, Start date: 01/16/19 12:59:00 CDT, Duration: 30 day, Stop date: 02/15/19 12:58:00 CDT Meperidine 12.5 mg, Route: Inactive IVP, Q30Min, 2018 [facility] Dosing Weight 62.358, kg, PRN Other -See Comment, For shivering, Start date: 01/16/19 12:59:00 CDT, Duration: 2 doses or times, Stop date: Limited # of times Ondansetron 4 mg, Route: Inactive 01/16[facility] IVP, ONCE, 2018 [facility] Dosing Weight 62.358, kg, PRN Nausea & Vomiting, Start date: 01/16/19 12:59:00 CDT Flumazenil 0.2 mg, Route: Inactive IVP, PRN, 2018 [facility] Dosing Weight 62.358, kg, PRN Benzodiazepine Reversal, Initial dose, Start date: 01/16/19 12:59:00 CDT, Duration: 30 day, Stop date: 02/15/19 12:58:00 CDT Fentanyl 50 microgram, Inactive Route: IVP, 2019 [facility] Q5Min, Dosing Weight 62.358, kg, PRN Pain Score 7-10, Priority: Routine, Start date: 01/16/19 12:59:00 CDT, Duration: 2 doses or times, Stop date: Limited # of times Hydromorphone 0.5 mg, Route: Inactive IVP, Q5Min, 2018 [facility] Dosing Weight 62.358, kg, PRN Pain Score [...] 1,000 mg, Inactive Route: PO, Drug 2018 Yasheas t form: TAB, ONCE, Dosing Weight 62.358, kg, PRN Pain Score 1-3, Start date: 01/16/19 12:59:00 CDT Hydralazine 10 mg, Route: Inactive IVP, Q20Min, 2018 [facility] Dosing Weight 62.358, kg, PRN Elevated BP, Start date: 01/16/19 12:59:00 CDT, Duration: 2 doses or times, Stop date: Limited # of times Labetalol 10 mg, Route: Inactive IVP, Q5Min, 2018 [facility] Dosing Weight 62.358, kg, PRN Elevated BP, Start date: 01/16/19 12:59:00 CDT, Duration: 5 doses or times, Stop date: Limited # of times esmolol (ANES) Route: IV, Drug Inactive form: INJ, 2018 ONCE, Stop date: 01/16/19 12:45:00 CDT Dextrose 50% in Route: IV, Stop Inactive Water IV (ANES) date: 01/16/192018 [facility] 12:45:00 CDT phenylephrine Route: IV, Drug Inactive M H (ANES) form: INJ, 2018 ONCE, Stop date: 01/16/19 12:45:00 CDT EPINEPHrine Route: IV, Drug Inactive (ANES) form: INJ, 2018 ONCE, Stop date: 01/16/19 12:43:00 CDT calcium chloride Route: IV, Drug Inactive MH (ANES) form: INJ2018 ONCE, Stop date: 01/16/19 12:33:00 CDT propofol (ANES) Route: IV, Drug Inactive form: INJ2018, Stop date: 01/16/19 11:52:00 CDT Amidate (ANES) Route: IV, Drug Inactive form: INJ2018, Stop date: 01/16/19 11:52:00 CDT norepinephrine Route: IV, Drug Inactive MH (ANES) form: INJ2018, Stop date: 01/16/19 11:52:00 CDT lidocaine (ANES) Route: IV, Drug Inactive form: INJ2018, Stop date: 01/16/19 11:52:00 CDT ondansetron Route: IV, Drug Inactive (ANES) form: INJ2018, Stop date: 01/16/19 11:42:00 CDT ceFAZolin (ANES) Route: IV, Drug Inactive form: INJ2018, Stop date: 01/16/19 11:42:00 CDT fentaNYL (ANES) Route: IV, Drug Inactive form: INJ2018, Stop date: 01/16/19 11:37:00 CDT vancomycin (ANES) Route: IV, Drug Inactive 01/16 1000 mg form: INJ, 2018 Start date: 01/16/19 10:50:00 CDT, Stop date: 01/16/19 11:50:00 CDT Sodium Chloride Route: IV, Inactive 0.9% IV (ANES) Total Volume: 2019 [facility] 1000 mL 1,000, Start date: 01/16/19 10:46:00 CDT, Stop date: 01/16/19 11:46:00 CDT Insulin regular 5 unit, Route: Inactive IV, ONCE, 2018 Dosing Weight 62.358, kg, Start date: 01/16/19 10:40:00 CDT, Stop date: 01/16/19 10:40:00 CDT Dextrose 12.5 gm, Route: Inactive IVPB, ONCE, 2018 [facility] Dosing Weight 62.358, kg, Start date: 01/16/19 10:39:00 CDT, Stop date: 01/16/19 10:39:00 CDT Calcium Chloride 1,000 mL, Rate: Inactive 0.0014 MEQ/ML / 25 ml/hr, 2018 [facility] ast Potassium Infuse over: 40 Chloride 0.004 hr, Route: IV, MEQ/ML / Sodium Dosing Weight Chloride 0.103 62.358 kg, MEQ/ML / Sodium Total Volume: Lactate 0.028 1,000, Start MEQ/ML Injectable date: 01/16/19 Solution 8:46:00 CDT, Duration: 1 day, Stop date: 01/17/19 8:45:00 CDT, 1.68, m2, 0 Sodium Chloride 1,000 mL, Rate: Inactive 0.9% IV 1,000 mL 25 ml/hr, 2018 [facility] Infuse over: 40 hr, Route: IV, Dosing Weight 62.358 kg, Total Volume: 1,000, Start date: 01/16/19 8:46:00 CDT, Duration: 1 day, Stop date: 01/17/19 8:45:00 CDT, 1.68, m2, 0 Vitamin B12 monthly, 0 Active Refill(s) 2018 [facility] allopurinol 100 100 mg = 1 tab, Active mg oral tablet PO, Daily, # 90 2019 [facility] tab, 1 Refill(s) Aspirin 81 MG 81 mg = 1 tab, Active Chewable Tablet PO, Daily, tab, 2018 [facility] 0 Refill(s) 24 HR Nifedipine 30 mg = 1 tab, No Longer 30 MG Extended PO, Daily, # 30 Active 2019 [facility] Release Tablet tab, 0 [Nifedical] Refill(s) paricalcitol 1 microgram = 1 Active 0.001 MG Oral cap, PO, Daily, 2018 [facility] Capsule # 30 cap, 0 Refill(s) levothyroxine 50 50 microgram = Active mcg (0.05 mg) 1 tab, PO, [address] [facility] [address] oral tablet Daily, # 30 tab, 0 Refill(s) liothyronine 5 5 microgram = 1 Active 01/15/ H mcg oral tablet tab, PO, Daily, 2019 [facility] # 30 tab, 0 Refill(s) Ferate 256 mg (28 256 mg = 1 tab, Active mg elemental PO, Daily, 0 2019 [facility] ast iron) oral tablet Refill(s) Hydralazine 100 mg = 1 tab, Active Hydrochloride 100 PO, TID, # 90 2019 [facility] Oral Tablet tab, 3 Refill(s) atorvastatin 40 40 mg = 1 tab, Active M H mg oral tablet PO, Bedtime, # 2019 [facility] 30 tab, 0 Refill(s) Clonidine 0.3 mg = 1 tab, Active Hydrochloride 0.3 PO, TID, # 60 2019 [facility] Oral Tablet tab, 1 Refill(s) Vancomycin 2001 mg: No Longer infuse over 2.[address] [facility] t hours For adult patients only: Round to nearest 250 mg per Medical Staff approval MEDICATION WASTE Product Size: 1000 mg Product Wasted: ___ mg Ancef + sterile Notes: (Same No Longer 01/15/ M H water 20 mL As: Ancef, Active 2018 [facility] Kefzol) MEDICATION WASTE Product Size: 1000 mg Product Wasted: ___ mg Allergies, Adverse Reactions, Alerts Substance Category Reaction Severity Reaction Status Date Comments S ource type Reported amLODIPine Assertion Drug Active Mis fredrick allergy Neuro Immunizations No Data Provided for This Section Results Order Name Results Value Reference Date Interpretation Comments Giovanna rce Range BLOOD BANK ABO/Rh B POS 05/26 RESULTS /2019 [facility] BLOOD BANK Antibody Negative 05/26 RESULTS Scrn (05/26/20 9:09 AM) /2019 [facility] CHEM PANEL Glucose Lvl 84 70 - 99 05/26 [facility] CHEM PANEL BUN 20 7 - 22 05/26 [facility] CHEM PANEL Creatinine 4.97 0.50 - 05/26 Lvl 1.40 [facility] CHEM PANEL Sodium Lvl 138 135 - 145 05/26 [facility] CHEM PANEL Potassium 3.6 3.5 - 5.1 05/26 Lvl /2019 [facility] CHEM PANEL Chloride Lvl 107 95 - 109 05/26 [facility] CHEM PANEL CO2 24 24 - 32 05/26 [facility] CHEM PANEL Calcium Lvl 9.7 8.5 - 10.5 05/26 [facility] CHEM PANEL AGAP 10.6 10.0 - 05/26 MH 20.0 [facility] CHEM PANEL eGFR 10 05/26 Result Comment: [facility] eGFR is calculated using the CKD-EPI formula. [...] should be multiplied by the estimated BMI. IMMUNOLOGY Coronavirus Not Detected Not 05/26 (COVID-19) (05/26/20 7:47 AM) Detected /2019 [facility] BLOOD BANK ABO/Rh B POS 05/17 RESULTS /2019 [facility] BLOOD BANK Antibody Negative 05/17 RESULTS Scrn (05/17/20 9:31 AM) /2019 [facility] CHEM PANEL Glucose Lvl 91 70 - 99 05/17 [facility] CHEM PANEL BUN 29 7 - 22 05/17 [facility] CHEM PANEL Creatinine 5.79 0.50 - 05/17 MH Lvl 1.40 [facility] CHEM PANEL Sodium Lvl 141 135 - 145 05/17 [facility] CHEM PANEL Potassium 3.9 3.5 - 5.1 05/17 MH Lvl /2019 [facility] CHEM PANEL Chloride Lvl 108 95 - 109 05/17 [facility] CHEM PANEL CO2 27 24 - 32 05/17 [facility] CHEM PANEL Calcium Lvl 9.9 8.5 - 10.5 05/17 [facility] CHEM PANEL AGAP 9.9 10.0 - 05/17 MH 20.0 [facility] CHEM PANEL eGFR 7 05/17 Result Comment: [facility] eGFR is calculated using the CKD-EPI formula. [...] should be multiplied by the estimated BMI. HEMATOLOGY WBC 5.2 3.7 - 10.4 05/17 /2019 [facility] HEMATOLOGY RBC 3.61 4.20 - 05/17 MH 5.40 /2019 [facility] HEMATOLOGY Hgb 10.4 12.0 - 05/17 MH 16.0 [facility] HEMATOLOGY Hct 33.1 36.0 - 05/17 MH 48.0 /2019 [facility] HEMATOLOGY MCV 91.8 80.0 - 05/17 MH 98.0 [facility] HEMATOLOGY MCH 28.8 27.0 - 05/17 MH 31.0 [facility] HEMATOLOGY MCHC 31.3 32.0 - 05/17 MH 36.0 [facility] HEMATOLOGY RDW 15.9 11.5 - 05/17 MH 14.5 /2019 [facility] HEMATOLOGY Platelet 180 133 - 450 11 MH /2019 [facility] HEMATOLOGY MPV 9.2 7.4 - 10.4 11 MH /2019 [facility] HEMATOLOGY PT 14.8 12.0 - 05/17 MH 14.7 /2019 [facility] HEMATOLOGY INR 1.15 0.85 - 05/17 MH 1.17 /2019 [facility] HEMATOLOGY PTT 29.5 22.9 - 05/17 MH 35.8 [facility] HEMATOLOGY Segs 74.6 45.0 - 11 MH 75.0 /2019 [facility] HEMATOLOGY Lymphocytes 11.0 20.0 - 05/17 MH 40.0 [facility] HEMATOLOGY Monocytes 11.0 2.0 - 12.0 1124 MH /2019 [facility] HEMATOLOGY Eosinophils 2.6 0.0 - 4.0 05/17 MH [facility] HEMATOLOGY Basophils 0.8 0.0 - 1.0 05/17 MH [facility] HEMATOLOGY Neutrophils 3.9 1.5 - 8.1 05/17 MH # /2020 [facility] HEMATOLOGY Lymphocytes 0.6 1.0 - 5.5 05/17 MH # /2020 [facility] HEMATOLOGY Monocytes # 0.6 0.0 - 0.8 05/17 [facility] HEMATOLOGY Eosinophils 0.1 0.0 - 0.5 05/17 MH # /2020 [facility] IMMUNOLOGY Coronavirus Not Detected Not 05/17 (COVID-19) (05/17/20 8:47 AM) Detected /2019 [facility] CHEM PANEL Glucose Lvl 91 70 - 99 04/08 [facility] CHEM PANEL BUN 44 7 - 22 04/08 [facility] CHEM PANEL Creatinine 8.12 0.50 - 04/08 MH Lvl 1.40 [facility] CHEM PANEL Sodium Lvl 139 135 - 145 04/08 [facility] CHEM PANEL Potassium 4.2 3.5 - 5.1 04/08 MH Lvl [facility] CHEM PANEL Chloride Lvl 107 95 - 109 04/08 [facility] CHEM PANEL CO2 24 24 - 32 04/08 [facility] CHEM PANEL Calcium Lvl 8.9 8.5 - 10.5 04/08 [facility] CHEM PANEL AGAP 12.2 10.0 - 04/08 MH 20.0 2020 [facility] CHEM PANEL eGFR 5 04/08 Result Comment: [facility] eGFR is calculated using the CKD-EPI formula. [...] should be multiplied by the estimated BMI. HEMATOLOGY PT 15.6 12.0 - 04/08 MH 14.7 /2019 [facility] HEMATOLOGY INR 1.23 0.85 - 10 MH 1.17 /2019 [facility] HEMATOLOGY PTT 34.9 22.9 - 04/08 MH 35.8 /2019 [facility] HEMATOLOGY WBC 5.0 3.7 - 10.4 10 MH /2019 [facility] HEMATOLOGY RBC 3.39 4.20 - 04/08 MH 5.40 /2019 [facility] HEMATOLOGY Hgb 9.8 12.0 - 04/08 MH 16.0 [facility] HEMATOLOGY Hct 30.6 36.0 - 04/08 MH 48.0 /2019 [facility] HEMATOLOGY MCV 90.2 80.0 - 04/08 MH 98.0 /2019 [facility] HEMATOLOGY MCH 29.0 27.0 - 04/08 MH 31.0 [facility] MCHC 32.2 32.0 - 04/08 MH 36.0 [facility] HEMATOLOGY RDW 15.4 11.5 - 04/08 MH 14.5 /2019 [facility] HEMATOLOGY Platelet 109 133 - 450 10 /2019 [facility] HEMATOLOGY MPV 9.8 7.4 - 10.4 04/08 /2019 [facility] HEMATOLOGY Segs 62.0 45.0 - 04/08 MH 75.0 /2019 [facility] HEMATOLOGY Lymphocytes 12.7 20.0 - 04/08 MH 40.0 [facility] HEMATOLOGY Monocytes 19.5 2.0 - 12.0 04/08 [facility] HEMATOLOGY Eosinophils 5.1 0.0 - 4.0 04/08 [facility] HEMATOLOGY Basophils 0.7 0.0 - 1.0 04/08 /2019 [facility] HEMATOLOGY Neutrophils 3.1 1.5 - 8.1 04/08 MH # /2020 [facility] HEMATOLOGY Lymphocytes 0.6 1.0 - 5.5 04/08 MH # /2019 [facility] HEMATOLOGY Monocytes # 1.0 0.0 - 0.8 04/08 [facility] HEMATOLOGY Eosinophils 0.3 0.0 - 0.5 04/08 MH # /2019 [facility] IMMUNOLOGY Hep Bs Ag Negative Negative 04/08 *NA* /2019 [facility] (04/08/20 5:29 AM) CHEM PANEL Glucose Lvl 110 70 - 99 04/07 [facility] CHEM PANEL BUN 41 7 - 22 04/072020 [facility] CHEM PANEL Creatinine 7.28 0.50 - 10 MH Lvl 1.40 /2019 [facility] CHEM PANEL Sodium Lvl 141 135 - 145 04/07 [facility] CHEM PANEL Potassium 4.2 3.5 - 5.1 10 MH Lvl /2020 [facility] CHEM PANEL Chloride Lvl 108 95 - 109 04/07 [facility] CHEM PANEL CO2 24 24 - 32 04/07 [facility] CHEM PANEL Calcium Lvl 8.8 8.5 - 10.5 04/07 MH [facility] CHEM PANEL AGAP 13.2 10.0 - 10 MH 20.0 /2020 [facility] CHEM PANEL eGFR 6 04/07 Result MH Comment: [facility] eGFR is calculated using the CKD-EPI formula. [...] should be multiplied by the estimated BMI. HEMATOLOGY Segs 79.6 45.0 - 04/07 MH 75.0 /2020 [facility] HEMATOLOGY Lymphocytes 4.6 20.0 - 10 MH 40.0 /2020 [facility] HEMATOLOGY Monocytes 13.3 2.0 - 12.0 04/07 [facility] HEMATOLOGY Eosinophils 1.9 0.0 - 4.0 04/07 MH /2019 [facility] HEMATOLOGY Basophils 0.6 0.0 - 1.0 04/07 MH /2019 [facility] HEMATOLOGY Neutrophils 4.9 1.5 - 8.1 04/07 MH # /2020 [facility] HEMATOLOGY Lymphocytes 0.3 1.0 - 5.5 04/07 MH # /2020 [facility] HEMATOLOGY Monocytes # 0.8 0.0 - 0.8 04/07 MH [facility] HEMATOLOGY Eosinophils 0.1 0.0 - 0.5 10 MH # /2020 [facility] HEMATOLOGY WBC 6.1 3.7 - 10.4 10 MH /2019 [facility] HEMATOLOGY RBC 3.59 4.20 - 10 MH 5.40 /2019 [facility] HEMATOLOGY Hgb 10.4 12.0 - 04/07 MH 16.0 /2019 [facility] HEMATOLOGY Hct 32.5 36.0 - 04/07 MH 48.0 /2019 [facility] HEMATOLOGY MCV 90.7 80.0 - 04/07 MH 98.0 /2019 [facility] HEMATOLOGY MCH 29.0 27.0 - 04/07 MH 31.0 [facility] HEMATOLOGY MCHC 31.9 32.0 - 04/07 MH 36.0 /2019 [facility] HEMATOLOGY RDW 15.4 11.5 - 04/07 MH 14.5 /2019 [facility] HEMATOLOGY Platelet 111 133 - 450 10 MH /2019 [facility] MPV 9.5 7.4 - 10.4 10 MH /2019 [facility] BLOOD BANK RBC product Product available 4 04/06 Resul t RESULTS (04/06/20 3:57 PM) /2019 Comment: [facility] 04/06/2020 16:13 [id number]
Madelyn Foster notified BLOOD BANK ABO/Rh B POS 04/06 RESULTS /2019 [facility] BLOOD BANK Antibody Negative 04/06 RESULTS Scrn (04/06/20 11:13 AM) /2019 [facility] CHEM PANEL Glucose Lvl 83 70 - 99 04/06 [facility] CHEM PANEL BUN 36 7 - 22 04/06 [facility] CHEM PANEL Creatinine 6.40 0.50 - 04/06 Lvl 1.40 [facility] CHEM PANEL Sodium Lvl 140 135 - 145 04/06 [facility] CHEM PANEL Potassium 3.6 3.5 - 5.1 04/06 Lvl /2019 [facility] CHEM PANEL Chloride Lvl 107 95 - 109 04/06 [facility] CHEM PANEL CO2 24 24 - 32 04/06 [facility] CHEM PANEL Calcium Lvl 9.1 8.5 - 10.5 04/06 [facility] CHEM PANEL AGAP 12.6 10.0 - 04/06 MH 20.0 [facility] CHEM PANEL eGFR 7 04/06 Result Comment: [facility] eGFR is calculated using the CKD-EPI formula. [...] should be multiplied by the estimated BMI. ENDOCRINOL S Preg Negative Negative 04/06 OGY *NA* /2019 [facility] (04/06/20 4:45 AM) HEMATOLOGY WBC 4.5 3.7 - 10.4 04/06 [facility] HEMATOLOGY RBC 3.73 4.20 - 04/06 MH 5.40 [facility] HEMATOLOGY Hgb 10.7 12.0 - 04/06 MH 16.0 [facility] HEMATOLOGY Hct 33.6 36.0 - 04/06 MH 48.0 [facility] HEMATOLOGY MCV 90.1 80.0 - 04/06 MH 98.0 [facility] HEMATOLOGY MCH 28.6 27.0 - 04/06 MH 31.0 [facility] HEMATOLOGY MCHC 31.8 32.0 - 04/06 MH 36.0 [facility] HEMATOLOGY RDW 15.5 11.5 - 04/06 MH 14.5 [facility] HEMATOLOGY Platelet 134 133 - 450 04/06 [facility] HEMATOLOGY MPV 9.9 7.4 - 10.4 04/06 [facility] HEMATOLOGY Segs 62.8 45.0 - 04/06 MH 75.0 [facility] HEMATOLOGY Lymphocytes 17.1 20.0 - 04/06 MH 40.0 [facility] HEMATOLOGY Monocytes 15.2 2.0 - 12.0 04/06 [facility] HEMATOLOGY Eosinophils 4.1 0.0 - 4.0 04/06 [facility] HEMATOLOGY Basophils 0.8 0.0 - 1.0 04/06 [facility] HEMATOLOGY Neutrophils 2.9 1.5 - 8.1 04/06 MH # /2020 [facility] HEMATOLOGY Lymphocytes 0.8 1.0 - 5.5 04/06 MH # /2019 [facility] HEMATOLOGY Monocytes # 0.7 0.0 - 0.8 04/06 [facility] HEMATOLOGY Eosinophils 0.2 0.0 - 0.5 04/06 MH # /2020 [facility] IMMUNOLOGY Coronavirus Not Detected Not 04/06 (COVID-19) (04/05/20 9:13 PM) Detected /2019 [facility] CHEM PANEL Total 7.7 6.4 - 8.4 04/05 Protein [facility] CHEM PANEL Albumin Lvl 3.9 3.5 - 5.0 04/05 [facility] CHEM PANEL ALT 40 0 - 65 04/05 [facility] CHEM PANEL AST 38 0 - 37 04/05 [facility] CHEM PANEL Alk Phos 92 39 - 136 04/05 [facility] CHEM PANEL Bili Total 1.2 0.2 - 1.3 04/05 [facility] CHEM PANEL B/C Ratio 5 6 - 25 04/05 [facility] CHEM PANEL Globulin 3.8 2.7 - 4.2 04/05 [facility] CHEM PANEL A/G Ratio 1.0 0.7 - 1.6 04/05 [facility] HEMATOLOGY PT 15.2 12.0 - 04/05 MH 14.7 [facility] HEMATOLOGY INR 1.19 0.85 - 04/05 MH 1.17 [facility] HEMATOLOGY PTT 23.3 22.9 - 04/05 MH 35.8 [facility] CHEM PANEL eGFR 13 01/18 Result Comment: [facility] eGFR is calculated using the CKD-EPI formula. [...] Sodium Lvl 141 135 - 145 01/18 [facility] CHEM PANEL Creatinine 3.85 0.50 - 01/18 MH Lvl 1.40 [facility] CHEM PANEL Glucose Lvl 102 70 - 99 01/18 [facility] CHEM PANEL BUN 19 7 - 22 01/18 [facility] CHEM PANEL Calcium Lvl 8.6 8.5 - 10.5 01/18 [facility] CHEM PANEL Chloride Lvl 107 95 - 109 01/18 [facility] CHEM PANEL CO2 29 24 - 32 01/18 [facility] CHEM PANEL Potassium 3.7 3.5 - 5.1 01/18 MH Lvl /2018 [facility] CHEM PANEL AGAP 8.7 10.0 - 01/18 MH 20.0 [facility] HEMATOLOGY Segs 64.4 45.0 - 01/18 MH 75.0 [facility] HEMATOLOGY Eosinophils 3.7 0.0 - 4.0 01/18 [facility] HEMATOLOGY Monocytes 21.0 2.0 - 12.0 01/18 [facility] HEMATOLOGY Basophils 0.7 0.0 - 1.0 01/18 [facility] HEMATOLOGY Lymphocytes 10.2 20.0 - 01/18 MH 40.0 [facility] HEMATOLOGY Neutrophils 4.5 1.5 - 8.1 01/18 MH # /2018 [facility] HEMATOLOGY Lymphocytes 0.7 1.0 - 5.5 01/18 MH # /2018 [facility] HEMATOLOGY Eosinophils 0.3 0.0 - 0.5 01/18 # /2018 [facility] HEMATOLOGY Monocytes # 1.5 0.0 - 0.8 01/18 [facility] HEMATOLOGY WBC 7.0 3.7 - 10.4 01/18 [facility] HEMATOLOGY RBC 2.62 4.20 - 01/18 MH 5.40 [facility] HEMATOLOGY Hgb 7.6 12.0 - 01/18 MH 16.0 [facility] HEMATOLOGY Hct 22.6 36.0 - 01/18 MH 48.0 [facility] HEMATOLOGY MCV 86.4 80.0 - 01/18 MH 98.0 [facility] HEMATOLOGY MCHC 33.6 32.0 - 01/18 MH 36.0 [facility] HEMATOLOGY MCH 29.0 27.0 - 01/18 MH 31.0 [facility] HEMATOLOGY RDW 15.8 11.5 - 01/18 MH 14.5 [facility] HEMATOLOGY MPV 9.7 7.4 - 10.4 01/18 [facility] HEMATOLOGY Platelet 98 133 - 450 01/18 [facility] BLOOD BANK RBC product Product available 4 01/17 Resul t RESULTS (01/17/19 6:45 AM) Comment: [facility] 01/17/2019 07:05 [id number]
notified brennen CHEM PANEL eGFR 01/17 Result Comment: The [facility] eGFR is calculated using the CKD-EPI formula. [...] PANEL BUN 34 7 - 22 01/17 [facility] CHEM PANEL Creatinine 5.10 0.50 - 01/17 Lvl 1.40 /2018 [facility] CHEM PANEL Glucose Lvl 117 70 - 99 01/17 [facility] CHEM PANEL Chloride Lvl 106 95 - 109 01/17 [facility] CHEM PANEL Potassium 5.2 3.5 - 5.1 01/17 Lvl [facility] CHEM PANEL Sodium Lvl 141 135 - 145 01/17 [facility] CHEM PANEL CO2 25 24 - 32 01/17 [facility] CHEM PANEL Calcium Lvl 8.5 8.5 - 10.5 01/17 [facility] CHEM PANEL AGAP 15.2 10.0 - 01/17 MH 20.0 [facility] HEMATOLOGY Basophils 0.8 0.0 - 1.0 01/17 [facility] HEMATOLOGY Segs 70.0 45.0 - 01/17 MH 75.0 /2018 [facility] HEMATOLOGY Lymphocytes 8.2 20.0 - 01/17 MH 40.0 /2018 [facility] HEMATOLOGY Monocytes 19.0 2.0 - 12.0 01/17 /2018 [facility] HEMATOLOGY Eosinophils 2.0 0.0 - 4.0 01/17 /2018 [facility] HEMATOLOGY Neutrophils 4.3 1.5 - 8.1 01/17 MH # /2019 [facility] HEMATOLOGY Lymphocytes 0.5 1.0 - 5.5 01/17 MH # /2019 [facility] HEMATOLOGY Monocytes # 1.2 0.0 - 0.8 01/17 /2018 [facility] HEMATOLOGY Eosinophils 0.1 0.0 - 0.5 01/17 MH # /2019 [facility] HEMATOLOGY Hct 21.1 36.0 - 01/17 MH 48.0 [facility] HEMATOLOGY MCV 87.7 80.0 - 01/17 MH 98.0 /2018 [facility] HEMATOLOGY Hgb 6.8 12.0 - 01/17 Result MH 16.0 Comment: [facility] Critical Result(s) called to jarod rodríguez at 01/17/2019 06:21_ by hd_. Read back OK. HEMATOLOGY MCH 28.4 27.0 - 01/17 31.0 /2018 [facility] HEMATOLOGY RDW 16.6 11.5 - 01/17 14.5 /2018 [facility] HEMATOLOGY Platelet 102 133 - 450 01/17 [facility] HEMATOLOGY MPV 9.7 7.4 - 10.4 01/17 /2018 [facility] HEMATOLOGY MCHC 32.4 32.0 - 01/17 36.0 /2018 [facility] HEMATOLOGY WBC 6.1 3.7 - 10.4 01/17 [facility] HEMATOLOGY RBC 2.41 4.20 - 01/17 5.40 /2019 [facility] IMMUNOLOGY Hep C Ab Negative 01/16 MH *NA* /2018 [facility] (01/16/19 2:50 PM) IMMUNOLOGY Hep Bs Ab <3.1 <=7.4 01/16 mIU/mL /2018 [facility] IMMUNOLOGY Hep B Core Negative Negative 01/16 Ab *NA* [facility] (01/16/19 2:50 PM) IMMUNOLOGY Hep Bs Ag Negative Negative 01/16 *NA* [facility] (01/16/19 2:50 PM) CHEM PANEL eGFR 8 01/16 Result Comment: [facility] eGFR is calculated using the CKD-EPI formula. [...] 3.5 - 5.1 01/16 MH Lvl /2018 [facility] CHEM PANEL Chloride Lvl 108 95 - 109 01/16 [facility] CHEM PANEL CO2 23 24 - 32 01/16 [facility] CHEM PANEL Calcium Lvl 10.1 8.5 - 10.5 01/16 [facility] CHEM PANEL AGAP 12.3 10.0 - 01/16 MH 20.0 [facility] CHEM PANEL Sodium Lvl 140 135 - 145 01/16 [facility] CHEM PANEL BUN 47 7 - 22 01/16 [facility] CHEM PANEL Creatinine 5.77 0.50 - 01/16 Lvl 1.40 [facility] CHEM PANEL Glucose Lvl 131 70 - 99 01/16 [facility] HEMATOLOGY Hct 26.2 36.0 - 01/16 MH 48.0 [facility] HEMATOLOGY Hgb 8.3 12.0 - 01/16 MH 16.0 [facility] HEMATOLOGY RBC 2.98 4.20 - 01/16 MH 5.40 [facility] HEMATOLOGY WBC 4.6 3.7 - 10.4 01/16 [facility] HEMATOLOGY RDW 16.7 11.5 - 01/16 MH 14.5 [facility] HEMATOLOGY MCHC 31.8 32.0 - 01/16 MH 36.0 [facility] HEMATOLOGY MCH 28.0 27.0 - 01/16 MH 31.0 [facility] HEMATOLOGY MCV 87.9 80.0 - 01/16 MH 98.0 [facility] HEMATOLOGY MPV 9.1 7.4 - 10.4 01/16 /2018 [facility] Platelet 140 133 - 450 01/16 /2018 [facility] HEMATOLOGY Eosinophils 0.1 0.0 - 0.5 01/16 # /2019 [facility] HEMATOLOGY Monocytes # 0.6 0.0 - 0.8 01/16 /2018 [facility] Lymphocytes 0.9 1.0 - 5.5 01/16 # /2018 [facility] HEMATOLOGY Lymphocytes 19.1 20.0 - 01/16 MH 40.0 /2018 [facility] HEMATOLOGY Segs 65.9 45.0 - 01/16 75.0 [facility] Eosinophils 2.3 0.0 - 4.0 01/16 /2018 [facility] Monocytes 12.1 2.0 - 12.0 01/16 /2018 [facility] HEMATOLOGY Neutrophils 3.1 1.5 - 8.1 01/16 # /2018 [facility] Basophils 0.6 0.0 - 1.0 01/16 /2018 [facility] BLOOD BANK Antibody Negative 01/16 RESULTS Scrn (01/16/19 9:35 AM) /2018 [facility] BLOOD BANK ABO/Rh B POS 01/16 RESULTS /2018 [facility] HEMATOLOGY PT 14.1 12.0 - 01/16 14.7 /2018 [facility] HEMATOLOGY INR 1.11 0.85 - 01/16 1.17 [facility] HEMATOLOGY PTT 28.3 22.9 - 01/16 35.8 [facility] Pathology Reports No Data Provided for This Section Diagnostic Reports Report Value Date Source Chest 2 views DX PROCEDURE INFORMATION: 04/06/2020 [facility] Exam: XR Chest, 2 Views Exam date and time: 04/06/2020 7:41 AM Age: 64 years old Clinical indication: Screening exam; Additional info: Coughing/preop TECHNIQUE: Imaging protocol: XR of the chest Views: 2 views. PA and Lateral COMPARISON: No relevant prior studies available. FINDINGS: Tubes, catheters and devices: None. Lungs: Evab-ar-cidveusd bilateral perihilar and basilar interstitial lung opacities, suggesting pulmonary edema ve rsus infiltrates. The peripheral lungs are otherwise clear. Bilateral pulmonary opaciti es are most prominent within the lower lungs. Pleural space: No pleural effusion or pneumothor ax. Heart/Mediastinum: Cardiac silhouette appears mi qf-ai-pvlbbagguw enlarged. Vasculature: Mild atherosclerotic calcif ication demonstrated within the aorta. Bones/joints: Diffusely decreased bone density. Mild to moderate generalized bony degenerative changes. IMPRESSION: 1. Gedr-ek-hwlejysmkc enlarged cardiac silhouett e. 2. Umax-op-bjtoznxj pulmonary edema versus infil trates. 3. Chronic degenerative changes. Alex Arias MD On 04/07/2020 12:25:45; VR [id number] Chest 1 v for Placement Patient Name: EVIE RICKS DO B: 1955 01/16/2019 [facility] DX Age: 63 years, Female MR: [id number] Study: Chest 1 v for Placement DX [...] of the left upper extremit y. SL: [id number] Chest 2 views DX Clinical Indication: Coughing - preoperative. 0 01/16/2019 [facility] Comparison: None FINDINGS: PA and lateral chest radiographs were obtained. MEDIASTINUM: The cardiac rad houette is mildly enlarged. The aorta is unremarkable. LUNGS: The lungs are clear. No pleural effusion. No pneumothorax. OTHER: No acute osseous abnormalities. IMPRESSION: Cardiomegaly, without acute cardiopulmonary abno rmality identified. SL: [id number] Pelvis with Pelvis 11/06/2012 [facility] and Transvaginal US REASON FOR EXAM: 620.2. [...] Signs Vital Sign Value Date Comments Source Systolic (mm Hg) 170 07/20/2020 [facility] Tristian ro Diastolic (mm Hg) 80 07/20/2020 [facility] Ne uro Heart Rate 63 07/20/2020 [facility] Neuro Respitory Rate 16 07/20/2020 [facility] Neuro Height 160.02 cm 07/20/2020 [facility] Neuro Weight 63.636 07/20/2020 [facility] BMI Calculated 24.85 07/20/2020 [facility] Neuro Systolic (mm Hg) 179 05/26/2020 [facility] Diastolic (mm Hg) 73 05/26/[address] Systolic (mm Hg) 177 05/26/2020 [facility] Diastolic (mm Hg) 67 05/26/[address] Respitory Rate 17 05/26/2020 [facility] Systolic (mm Hg) 178 05/26/2020 [facility] Diastolic (mm Hg) 70 05/26/[address] Respitory Rate 13 05/26/2020 [facility] Respitory Rate 14 05/26/2020 [facility] Height 160.02 cm 05/26/2020 [facility] Weight 64.545 05/26/2020 [facility] BMI Calculated 25.21 05/26/2020 [facility] Height 160.02 cm 05/25/2020 [facility] Weight 66.818 05/25/2020 [facility] BMI Calculated 26.09 05/25/2020 [facility] Respitory Rate 15 05/17/2020 [facility] Systolic (mm Hg) 158 05/17/2020 [facility] Diastolic (mm Hg) 67 05/17/[address] Respitory Rate 14 05/17/2020 [facility] Systolic (mm Hg) 180 05/17/2020 [facility] Diastolic (mm Hg) 64 05/17/[address] Respitory Rate 17 05/17/2020 [facility] Systolic (mm Hg) 171 05/17/2020 [facility] Diastolic (mm Hg) 76 05/17/[address] Height 160.02 cm 05/17/2020 [facility] Weight 66.818 05/17/2020 [facility] BMI Calculated 26.09 05/17/2020 [facility] Temperature Oral (F) 97.9 F 04/08/2020 [facility] Systolic (mm Hg) 128 04/08/2020 [facility] Diastolic (mm Hg) 58 04/08/[address] Respitory Rate 21 04/08/2020 [facility] Systolic (mm Hg) 116 04/08/2020 [facility] Diastolic (mm Hg) 52 04/08/[address] Temperature Oral (F) 98.0 F 04/08/2020 [facility] Respitory Rate 19 04/08/2020 [facility] Systolic (mm Hg) 112 04/08/2020 [facility] Diastolic (mm Hg) 52 04/08/[address] Respitory Rate 18 04/08/2020 [facility] Temperature Oral (F) 98.4 F 04/08/2020 [facility] Heart Rate 70 04/08/2020 [facility] Heart Rate 65 04/07/2020 [facility] Heart Rate 89 04/06/2020 [facility] Height 170.18 cm 04/06/2020 [facility] Weight 63.636 04/06/2020 [facility] BMI Calculated 21.97 04/06/2020 [facility] Height 170.18 cm 04/05/2020 [facility] BMI Calculated 21.97 04/05/2020 [facility] Weight 63.636 04/05/2020 [facility] Systolic (mm Hg) 120 03/10/2019 [facility] Diastolic (mm Hg) 76 03/10/[address] Systolic (mm Hg) 135 03/10/2019 [facility] Diastolic (mm Hg) 65 03/10/[address] Heart Rate 78 03/10/2019 [facility] Respitory Rate 18 03/10/2019 [facility] Systolic (mm Hg) 143 03/10/2019 [facility] Diastolic (mm Hg) 61 03/10/[address] Heart Rate 74 03/10/2019 [facility] Respitory Rate 16 03/10/2019 [facility] Heart Rate 60 03/10/2019 [facility] Heart Rate 75 01/18/2019 [facility] Temperature Oral (F) 98.2 F 01/18/2019 [facility] Respitory Rate 16 01/18/2019 [facility] Systolic (mm Hg) 164 01/18/2019 [facility] Diastolic (mm Hg) 66 01/18/[address] Respitory Rate 16 01/18/2019 [facility] Systolic (mm Hg) 162 01/18/2019 [facility] Diastolic (mm Hg) 56 01/18/[address] Temperature Oral (F) 98.2 F 01/18/2019 [facility] Heart Rate 77 01/18/2019 [facility] Respitory Rate 16 01/18/2019 [facility] Temperature Oral (F) 98.4 F 01/18/2019 [facility] Heart Rate 74 01/18/2019 [facility] Systolic (mm Hg) 136 01/18/2019 [facility] Diastolic (mm Hg) 63 01/18/[address] BMI Calculated 24.35 01/16/2019 [facility] Weight 62.358 01/16/2019 [facility] Height 160.02 cm 01/16/2019 [facility] Weight 59.091 01/15/2019 [facility] BMI Calculated 22.36 01/15/2019 [facility] Height 162.56 cm 01/15/2019 [facility] Temperature Oral (F) 96.3 F 05/19/2012 [facility] Center Heart Rate 57 05/19/2012 [facility] Respitory Rate 20 05/19/2012 [facility] denise Center Systolic (mm Hg) 180 05/19/2012 [facility] dical Center Diastolic (mm Hg) 93 05/19/2012 [facility] edical Center Weight 81.136 05/19/2012 [facility] Height 160.02 cm 05/19/2012 [facility] Temperature Oral (F) 97.8 F 01/28/2012 [facility] Systolic (mm Hg) 181 01/28/2012 [facility] dical Center Heart Rate 53 01/28/2012 [facility] Respitory Rate 18 01/28/2012 [facility] Center Diastolic (mm Hg) 81 [facility] Weight 80.710 01/28/2012 [facility] Center Height 160.02 cm 01/28/2012 [facility] Respitory Rate 18 01/10/2012 [facility] Heart Rate 62 01/10/2012 [facility] Temperature Oral (F) 98.3 F 01/10/2012 [facility] Diastolic (mm Hg) 76 01/10/2012 [facility] Systolic (mm Hg) 144 01/10/2012 [facility] 01/10/2012 [facility] Height 160.02 cm 01/10/2012 [facility] Encounters Location Location Encounter Encounter Reason Attending ADM DC Stat us Source Details Type Number For Provider Date Date Visit [facility] [place] [id number] COLON PUTAO KEV 01/09 02/07 Active [facility] Medical 0 CANCER /2011 [facility] Outpatient [id number] CANCER PUTAO KEV 01/09 Act meet [facility] 1 [facility] Center AMPULLA [facility] [place] [id number] FOLLOW JUAN 05/19 Active [facility] 1 [facility] Observation [id number] Blaine 01/16 01/18 [facility] 2 [facility] Day Surgery [id number] Blaine 03/10 03/10 [facility] 0 [facility] Inpatient [id number] Hasmukh 04/05 04/08 [facility] 1 [facility] Surgery [id number] Blaine 05/17 05/17 [facility] 2 [facility] Surgery [id number] Blaine 05/26 05/26 [facility] 3 Ti [facility] Outpatient [id number] Paul Zheng 07/20 Act [facility] Outpatient [id number] Paul Yazmin 07/20 07/21 [facility] [place] Outpatient [id number] [facility] 08/17 Act meet [facility] Talon [facility] Outpatient [id number] COLON SALLY locke [address] [place] avnegas [place] [id number] 620.2 - JUAN Cancel OPID 0 OVARIAN DUBOSE [facility] Procedures Procedure Code Date Perfomer Comments Source Colectomy [id number] [facility] Thyroidectomy [id number] [facility] Total hysterectomy [id number] [facility] Assessment and Plan Assessment and Plan Date Source Extracted from:Title: Clinical Document 04/08/2020 [facility] Author: Gretchen Beck CREDIT REPORTER Date: 04/08/20 [facility] Progress Note Gretchen Beck MSN, TREE SURGEON, AGACNP-BC Subjective/ovenight events: Seen patient at bedside, s/p hemodialysi s today, getting ready to discharge home. No immediate distress. Objective Vitals Tmp(F) Tmp(C) Ttype B P MAP Pulse RR SpO2 FIO2 ETCO2 04/08 16:41 97.9 36.61 oral 128/58 --- 74 -- 100 --- --- 04/08 11:00 98.0 36.67 oral 116/52 69 73 21 --- --- --- 04/08 10:45 ---- ---- ---- 1 67 72 19 --- --- --- 04/08 10:30 ---- ---- ---- 1 73 72 18 --- --- --- 04/08 10:15 ---- ---- ---- 1 61 71 17 --- --- --- 24 Hr Tmax: 98.5F (36.94c) at 04/07 18:2 2 Vital Signs are the last 5 in the past 48 hours. 24 Hr Tmin: 97.8F (36.56c) at 04/07 23: 31 Weights are the last 5 in 60 days, plus initial. Date Wt(kg) Wt(lb) Ht(cm) Ht(in) Method BM I BSA 04/05 (initial) 63.64 140.00 170.18 67.00 Estimated 22.0 1.73 (no point of care glucose results charted in last 24 hours) Most Recent Scores: 04/08/20 Jorge A Coma Score 15 04/08/20 Frederic Score 20 04/08/20 Grubbs Borup Fall Score 8 Lines, Tubes, and Drains: 04/05/2020 22:55 Peripheral Lines: Antecubital Right Over th e needle catheter Surgical Procedures: 04/06/20 13:49 LEFT ARM ANGIOGRAM; BIOMEDICAL EQUIPMENT SPECIALIST / DRIL PROCEDURE / FISTULA BANDING [id number] Primary Surgeon: Blaine Luke MD (Service: CVT) Labs (Last four charted values) WBC 5.0 (MAR 16) 6.1 (OCT 15) 4.5 (OCT 14) 4.5 (MAR 13) Hgb L 9.8 (MAR 16 ) L 10.4 (OCT 15) L 10.7 (OCT 14) L 10.9 (OCT 13) Hct L 30.6 (OCT 1 6) L 32.5 (OCT 15) L 33.6 (OCT 14) L 34.6 (OCT 13) Plt L 109 (OCT 16 ) L 111 (OCT 15) 134 (OCT 14) 147 (OCT 13) Na 139 (OCT 16) 141 (OCT 15) 140 (OCT 14) 140 (OCT 13) K 4.2 (OCT 16) 4.2 (OCT 15) 3.6 (OCT 14) 4.4 (OCT 13) CO2 24 (OCT 16) 24 (OCT 15) 24 (OCT 14) 28 (OCT 13) Cl 107 (OCT 16) 108 (OCT 15) 107 (OCT 14) 107 (OCT 13) Cr H 8.12 (OCT 1 6) H 7.28 (OCT 15) H 6.40 (OCT 14) H 5.79 (OCT 13) BUN H 44 (OCT 16) H 41 (OCT 15) H 36 (OCT 14) H 33 (OCT 13) Glucose Random 91 (OCT 16) H 110 (OCT 15) 83 (OCT 14) 95 (OCT 13) Ca 8.9 (OCT 16) 8.8 (OCT 15) 9.1 (OCT 14) 8.5 (OCT 13) PT H 15.6 (APR 08) H 15.2 (APR 05) INR H 1.23 (APR 08) H 1.19 (APR 05) PTT 34.9 (APR 08) 23.3 (APR 05) 04/08/2020 16:41 SpO2 percent 100 04/08/2020 07:30 Oxygen Therapy Mode Room air 04/07/2020 23:31 O2 Sat Location Right hand/finger Scheduled Meds (12): 04/06/20 allopurinol 100 mg PO Daily 04/06/20 aspirin (aspirin 81 mg tablet, enteric coated) 81 m g PO Daily 04/06/20 atorvastatin 40 mg PO Bedtime 04/07/20 (Suspended) cloNIDine (cloNIDine 0.3 mg oral table t) 0.3 mg PO TID 04/06/20 ferrous sulfate 325 mg PO Daily 04/06/20 heparin 5,000 unit SUB-Q Q8H 04/06/20 hydrALAZINE (hydrALAZINE 100 mg oral tablet) 100 mg PO Q8H 04/06/20 levothyroxine 50 microgram PO Q630AM 04/06/20 liothyronine 5 microgram PO Daily 04/06/20 metoprolol (Toprol-XL 25 mg ora l tablet, extended release) 25 mg PO Daily 04/08/20 multivitamin (Nephro-Flash Rx) 1 tab PO Daily 04/06/20 paricalcitol (paricalcitol 1 mcg oral capsule) 1 mi crogram PO Daily Continuous Infusions: None Imaging Studies (last 36 hours) Chest 2 views DX 04/07/2020 12:25 Impression: 1. Shec-lv-azxriaohaz enlarged cardiac silhouette. 2. Moki-el-rdmhesfj pulmonary edema versus infiltrates. 3. Chronic degenerative changes. Alex Arias MD On 04/07/2020 12:25:45; [id number] Physical Exam General: Isitting on side of bed, no distress HEENT: No pallor, anicteric sclera Cardiovascular: S1/S2, regular rate and rhythm. Respiratory: CTAB Abdomen: Soft, nondistended, bowel sounds normoactive. Extremities: No edema, no cyanosis. Integumentary: no skin breakdown Neurologic: AAOx4, fluent speech, nonfocal Impression: 1. s/p DRIL procedure LUE 2. ESRD on HD 3. HTN 4. H/o CVA with residual deficits Plan: Stable on room air, Continue neurovascular checks per protocol. HD as per seo specialist Ok to discharge home from pulmonary sp. Prophylaxis: DVT: heparin Plan discussed and reviewed with attending physician. Signature Line Gretchen Beck MSN, [facility]- Pulmonary and Critical Care. Addendum by Michael Diaz MD on 04/08/2020 17:59 Seen and evaluated with nurse practition er during morning rounds. All available records reviewed. Management plan discussed with nurse practitioner and agree as transcribed under my direct supervision. Extracted from:Title: Clinical Document Author: Srinivas Cerrato MD Date: 04/08/20 Date of discharge: 04/08/2020. Discharge diagnoses *Steal syndrome of the left arm, suspected *End-stage renal disease *Hypertension *History of CVA in the past *Hypothyroidism *Hyperlipidemia Patient seen examined 04/06/2020. Comes in with left upper extremity pain, recent creation of left AV fistula. Patient to go for interventional vascul ar surgery evaluation of the left fistula today May need thrombectomy or revision of the AV fistula. We will make inpatient at this time. Pain control with Ackerly as needed. Blood pressure not well controlled like ly secondary to pain, continue with hydralazine, metoprolol for now and adjust as needed. Clonidine has been started also. Further recommendations depending on postoperative course. Patient seen and examined 04/07/2020 --Patient with steal syndrome involving the left AV fistula and arm. Patient is status post left arm angiogr am and fistula banding with drill procedure 04/06/2020. Plan for scheduled hemodialysis on ay, patient is Saturday schedule. Symptomatically patient is better as pain in the left arm i s better. If patient can be dialyzed tomorrow, anticipate discharge t omorrow also. Systolic is in the low 90s, heart rate in the 60s, will discontinue clonidine which is at a high dose of 0.3 3 times daily, will only continue with low-dose of metoprolol for now. Anticipate discharge tomorrow morning DVT prophylaxis: Heparin Disposition: Further evaluation ongoing. Anticipate discharge tomorrow after hemodialysis. Hospital course Patient is a 64-year-old woman with ESRD , history of CVA and hypertension who recently had a left AV fistula created. She comes in with left arm pain and there is steal syndrome suspected of the left u pper extremity secondary to recent fistu la creation. Patient underwent left arm angiogram and fistula banding along with DRIL procedure by vascular surgery on 04/06/2020. Patient's left arm pain has improved significantly. She is able to get dialysis through her left AV fistula on day of discharge. Patient is wanting to be discharged at this time as she is feeling well. Okay with consulting services to follow-up as outpatient. Regulo hairston seen examined on day of discharge. Vitals at the time of discharge stable with temperature being 98.0, blood pressure being 116/52, pulse of 73, respiratory 21. 04/06/20 9:00 allopurinol 100 mg PO Daily 04/06/20 9:00 aspirin (aspirin 81 mg tablet, enteric coated) 81 mg PO Daily 04/06/20 21:00 atorvastatin 40 mg PO Bedtime 04/07/20 16:27 (Suspended) cloNIDine (cl oNIDine 0.3 mg oral tablet) 0.3 mg PO TID 04/06/20 9:00 ferrous sulfate 325 mg PO Daily 04/06/20 16:00 heparin 5,000 unit SUB-Q Q8H 04/06/20 0:00 hydrALAZINE (hydrALAZINE 100 mg oral tablet) 1 00 mg PO Q8H 04/06/20 6:30 levothyroxine 50 microgram PO Q630AM 04/06/20 9:00 liothyronine 5 microgram PO Daily 04/06/20 9:00 metoprolol (Toprol-XL 25 m g oral tablet, extended release) 25 mg PO Daily 04/08/20 9:00 multivitamin (Nephro-Flash Rx) 1 tab PO Daily 04/06/20 9:00 paricalcitol (paricalcitol 1 mcg oral capsule) 1 microgram PO Daily Discharge condition fair Discharged home Please see discharge medicine form Discharge diet regular diet Greater than 35 minutes have been spent in discharge planning and coordinating care Extracted from:Title: History and Physical Author: Marina Goldberg MD Date: 04/05/20 64-year-old female with history of ESRD on HD Saturday via left upper extremity AV fistula, hypertension, history of CVA who presented to the ED from her vascular surgeon's office due to worsening left hand pain. Left hand pain - concerning for possible steal/ischemia from LUE AVF - npo after midnight for intervention per vascular surgery - pain control ESRD on HD - underwent HD yesterday HTN - will resume home medications when documented Hx CVA S/p thyroidectomy - continue levothyroxine Anemia of chronic disease - no need for transfusion SCDs observation, anticipate 1 midnight Extracted from:Title: Cardiology Progress Note 01/18/2019 [facility] Author: Darrick Lewis MD Date: 01/18/19 Impression [...] History Date Source Social History TypeResponse 01/15/2019 [facility] Alcohol Never Smoking Status Never smoker; Previous treatment: None; Concerns about tobacco use in household: No; Exposure to Tobacco Smoke None; Cigarette Smoking Last 365 Days No; Reg Smoking Cessation Counseling No entered on: 05/26/20 Social History TypeResponse 01/15/2019 [facility] Alcohol Never Employment/School 1 Smoking Status Never smoker; Previous treatment: None; Concerns about tobacco use in household: No; Exposure to Tobacco Smoke None; Cigarette Smoking Last 365 Days No; Reg Smoking Cessation Counseling No entered on: 07/20/20 1May release medical information to Spouse- Clayton Ricks Family History No Data Provided for This Section Advance Directives No Data Provided for This Section Functional Status No Data Provided for This Section
--- OUTSIDE RECORDS SUMMARY | 2020-07-28 23:23 | XMS REPORT | Summary of Care ---
:1955 Author Organization [facility] Address [address] [place] [phone]- Encounter HQ Bing_prasanth(FIN) [id number] Date(s): 05/17/20 - 05/17/20 [facility] [id number] [place] [address]- Discharge Disposition: Home or Self Care Attending Physician: Blaine Luke MD Referring Physician: Blaine Luke MD Vital Signs Most recent to oldest 1 2 3 [Reference Range]: Height 160.02 cm (05/17/20 10:00 AM) Blood Pressure 158/67 mmHg 180/64 mmHg 171/76 mmHg [90-140/60-90 mmHg] *HI* *HI* *HI* (05/17/20 3:00 PM) (05/17/20 2:00 PM) (05/17/20 1:45 PM) Respiratory Rate [14-20 15 BRMIN 14 BRMIN 17 BRMIN BRMIN] (05/17/20 3:00 PM) (05/17/20 2:00 PM) (05/17/20 1:45 PM) Weight 66.818 kg (05/17/20 10:00 AM) Body Mass Index 26.09 m2 (05/17/20 10:00 AM) Problem List Condition Effective Dates Status Health Status Informant CA - Cancer of colon(Confirmed) Active Stroke(Confirmed) Resolved H/O: stroke(Confirmed) Active HT - Hypertension(Confirmed) Active Hyperlipidemia(Confirmed) Resolved HTN (hypertension)(Confirmed) Resolved Kidney disease(Confirmed) Resolved Colon cancer(Confirmed) Resolved Allergies, Adverse Reactions, Alerts Substance Reaction Severity Status amLODIPine Active Medications Ancef 2 gm, Route: IVPB, PRE OP, Dosing Weight 63.636, kg, Start date: 05/16/20 17:00:00 SHIPPING LEAD, Duration: 1 day, Stop date: 05/17/20 16:59:00 SHIPPING LEAD, ABX Indication: Surgical Prophylaxis Start Date: 05/16/20 Stop Date: 05/18/20 Status: DiscontinuedANES acetaminophen 1,000 mg, Route: PO, Drug form: TAB, ONCE, Dosing Weight 66.818, kg, PRN Pain Score 1-3, Start date:05/17/20 15:27:00 SHIPPING LEAD Start Date: 05/17/20 Stop Date: 05/18/20 Status: DiscontinuedANES albuterol 0.083% inhalation solution 2.49 mg, Route: NEB, Q20Min, Dosing Weight 66.818, kg, PRN Wheezing, Priority: STAT, Start date: 05/17/20 15:27:00 SHIPPING LEAD, Duration: 30 day, Stop date: 06/16/20 15:26:00 SHIPPING LEAD Start Date: 05/17/20 Stop Date: 05/18/20 Status: DiscontinuedANES diphenhydrAMINE 12.5 mg, Route: IVP, Drug form: INJ, Q6H, Dosing Weight 66.818, kg, PRN Itching, Start date: 05/17/20 15:27:00 SHIPPING LEAD, Duration: 30 day, Stop date: 06/16/20 15:26:00 SHIPPING LEAD Start Date: 05/17/20 Stop Date: 05/18/20 Status: DiscontinuedANES ePHEDrine 5 mg, Route: IVP, Q5Min, Dosing Weight 66.818, kg, PRN Low Blood Pressure, Start date: 05/17/20 15:27:00 SHIPPING LEAD, Duration: 30 day, Stop date: 06/16/20 15:26:00 SHIPPING LEAD Start Date: 05/17/20 Stop Date: 05/18/20 Status: DiscontinuedANES fentaNYL 25 microgram, Route: IVP, Q5Min, Dosing Weight 66.818, kg, PRN Pain Score 4-6, Priority: Routine, Start date: 05/17/20 15:27:00 SHIPPING LEAD, Duration: 4 doses or times, Stop date: Limited # of times Start Date: 05/17/20 Stop Date: 05/18/20 Status: DiscontinuedANES flumazenil 0.2 mg, Route: IVP, PRN, Dosing Weight 66.818, kg, PRN Benzodiazepine Reversal, Initial dose, Start date: 05/17/20 15:27:00 SHIPPING LEAD, Duration: 30 day, Stop date: 06/16/20 15:26:00 SHIPPING LEAD Start Date: 05/17/20 Stop Date: 05/18/20 Status: DiscontinuedANES hydrALAZINE 10 mg, Route: IVP, Q20Min, Dosing Weight 66.818, kg, PRN Elevated BP, Start date: 05/17/20 15:27:00 SHIPPING LEAD, Duration: 2 doses or times, Stop date: Limited # of times Start Date: 05/17/20 Stop Date: 05/18/20 Status: DiscontinuedANES HYDROmorphone 0.5 mg, Route: IVP, Q5Min, Dosing Weight 66.818, kg, PRN Pain Score 7-10, Start date: 05/17/20 15:27:00 SHIPPING LEAD, Duration: 4 doses or times, Stop date: Limited # of times Start Date: 05/17/20 Stop Date: 05/18/20 Status: DiscontinuedANES morphine Sulfate 2 mg, Route: IVP, Q5Min, Dosing Weight 66.818, kg, PRN Pain Score 4-6, Start date: 05/17/20 15:27:00CST, Duration: 5 doses or times, Stop date: Limited # of times Start Date: 05/17/20 Stop Date: 05/18/20 Status: DiscontinuedANES naloxone 0.4 mg, Route: IVP, Q2MIN, Dosing Weight 66.818, kg, PRN Narcotic Reversal, Start date: 05/17/20 15:27:00 SHIPPING LEAD, Duration: 8 doses or times, Stop date: Limited # of times Start Date: 05/17/20 Stop Date: 05/18/20 Status: DiscontinuedANES ondansetron 4 mg, Route: IVP, ONCE, Dosing Weight 66.818, kg, PRN Nausea & Vomiting, Start date: 05/17/20 15:27:00 SHIPPING LEAD Start Date: 05/17/20 Stop Date: 05/18/20 Status: DiscontinuedANES oxyCODONE 5 mg immediate release tablet 5 mg, Route: PO, Drug form: TAB, Q4H, Dosing Weight 66.818, kg, PRN Pain Score 4-6, Start date: 05/17/20 15:27:00 SHIPPING LEAD, Duration: 30 day, Stop date: 06/16/20 15:26:00 SHIPPING LEAD Start Date: 05/17/20 Stop Date: 05/18/20 Status: DiscontinuedceFAZolin (ANES) Route: IV, Drug form: INJ, ONCE, Stop date: 05/17/20 12:08:00 SHIPPING LEAD Start Date: 05/17/20 Stop Date: 05/17/20 Status: CompletedfentaNYL (ANES) Route: IV, Drug form: INJ, ONCE, Stop date: 05/17/20 12:18:00 SHIPPING LEAD Start Date: 05/17/20 Stop Date: 05/17/20 Status: CompletedLactated Ringers Injection IV 1000 mL 1,000 mL, Rate: 75 ml/hr, Infuse over: 13.3 hr, Route: IV, Dosing Weight 66.818 kg, Total Volume: 1,000, Start date: 05/17/20 10:07:00 SHIPPING LEAD, Duration: 30 day, Stop date: 06/16/20 10:06:00 SHIPPING LEAD, 1.74, m2 Start Date: 05/17/20 Stop Date: 05/17/20 Status: Discontinuedmidazolam (ANES) Route: IV, Drug form: SOLN, ONCE, Stop date: 05/17/20 12:03:00 SHIPPING LEAD Start Date: 05/17/20 Stop Date: 05/17/20 Status: Completedpropofol (ANES) Route: IV, Drug form: INJ, ONCE, Stop date: 05/17/20 12:18:00 SHIPPING LEAD Start Date: 05/17/20 Stop Date: 05/17/20 Status: CompletedSodium Chloride 0.9% (Bolus) IV 500 mL, Infuse Over: 20 minutes, Route: IV, ONCE, Dosing Weight 66.818 kg, Start date: 05/17/20 15:27:00 SHIPPING LEAD, Stop date: 05/17/20 15:27:00 SHIPPING LEAD Start Date: 05/17/20 Stop Date: 05/17/20 Status: OrderedSodium Chloride 0.9% IV (ANES) 500 mL Route: IV, Total Volume: 500, Start date: 05/17/20 12:08:00 SHIPPING LEAD, Stop date: 05/17/20 13:08:00 SHIPPING LEAD Start Date: 05/17/20 Stop Date: 05/17/20 Status: Completedvancomycin 1 gm, Route: IVPB, Drug form: INJ, PRE OP, Dosing Weight 63.636, kg, Start date: 05/16/20 17:00:00 SHIPPING LEAD, Duration: 1 day, Stop date: 05/17/20 16:59:00 SHIPPING LEAD, ABX Indication: Surgical Prophylaxis Start Date: 05/16/20 Stop Date: 05/18/20 Status: Discontinuedvancomycin (ANES) 1000 mg Route: IV, Drug form: INJ, Start date: 05/17/20 11:46:00 SHIPPING LEAD, Stop date: 05/17/20 12:46:00 SHIPPING LEAD Start Date: 05/17/20 Stop Date: 05/17/20 Status: Completed Results Most recent to oldest [Reference Range]: 1 Neutrophils # [1.5-8.1 K/CMM] 3.9 K/CMM (05/17/20 9:31 AM) Lymphocytes # [1.0-5.5 K/CMM] 0.6 K/CMM *LOW* (05/17/20 9:31 AM) Monocytes # [0.0-0.8 K/CMM] 0.6 K/CMM (05/17/20 9:31 AM) Eosinophils # [0.0-0.5 K/CMM] 0.1 K/CMM (05/17/20 9:31 AM) eGFR 7 mL/min/1.73m2 1 *NA* (05/17/20 9:31 AM) ABO/Rh B POS *Unknown* (05/17/20 9:31 AM) Antibody Scrn Negative (05/17/20 9:31 AM) AGAP [10.0-20.0 mEq/L] 9.9 mEq/L *LOW* (05/17/20 9:31 AM) Basophils [0.0-1.0 %] 0.8 % (05/17/20 9:31 AM) BUN [7-22 mg/dL] 29 mg/dL *HI* (05/17/20 9:31 AM) Calcium Lvl [8.5-10.5 mg/dL] 9.9 mg/dL (05/17/20 9:31 AM) Chloride Lvl [95-109 mEq/L] 108 mEq/L (05/17/20 AM) CO2 [24-32 mEq/L] 27 mEq/L (05/17/20 AM) Creatinine Lvl [0.50-1.40 mg/dL] 5.79 mg/dL *HI* (05/17/20 AM) Eosinophils [0.0-4.0 %] 2.6 % (05/17/20 AM) Glucose Lvl [70-99 mg/dL] 91 mg/dL (05/17/20 AM) Hct [36.0-48.0 %] 33.1 % *LOW* (05/17/20 AM) Hgb [12.0-16.0 g/dL] 10.4 g/dL *LOW* (05/17/20 AM) INR [0.85-1.17] 1.15 (05/17/20 AM) Potassium Lvl [3.5-5.1 mEq/L] 3.9 mEq/L (05/17/20 AM) Lymphocytes [20.0-40.0 %] 11.0 % *LOW* (05/17/20 AM) MCH [27.0-31.0 pg] 28.8 pg (05/17/20 AM) MCHC [32.0-36.0 g/dL] 31.3 g/dL *LOW* (05/17/20 AM) MCV [80.0-98.0 fL] 91.8 fL (05/17/20 AM) Monocytes [2.0-12.0 %] 11.0 % (05/17/20 AM) MPV [7.4-10.4 fL] 9.2 fL (05/17/20 AM) Sodium Lvl [135-145 mEq/L] 141 mEq/L (05/17/20 AM) Platelet [133-450 K/CMM] 180 K/CMM (05/17/20 AM) Segs [45.0-75.0 %] 74.6 % (05/17/20 AM) PT [12.0-14.7 seconds] 14.8 seconds *HI* (05/17/20 9:31 AM) PTT [22.9-35.8 seconds] 29.5 seconds (05/17/20 9:31 AM) Coronavirus (COVID-19) KAYLEE [Not Detected] Not Detected (05/17/20 8:47 AM) RBC [4.20-5.40 M/CMM] 3.61 M/CMM *LOW* (05/17/20 9:31 AM) RDW [11.5-14.5 %] 15.9 % *HI* (05/17/20 9:31 AM) WBC [3.7-10.4 K/CMM] 5.2 K/CMM (05/17/20 9:31 AM) 1Result Comment: The eGFR is calculated [...] Reg Smoking Cessation Counseling No entered on: 05/17/20 Assessment and Plan No data available for this section
--- OUTSIDE RECORDS SUMMARY | 2020-07-28 23:24 | XMS REPORT | Summary of Care ---
:1955 Author Organization [facility] Address [address] [place] [id number]- Encounter HQ Bing_prasanth(FIN) [id number] Date(s): 05/17/20 - 05/17/20 [facility] [id number] [place] [id number]- Discharge Disposition: Home or Self Care Attending [...] Weight 63.636, kg, Start date: 05/16/20 17:00:00 ANNEALING OVEN OPERATOR, Duration: 1 day, Stop date: 05/17/20 16:59:00 ANNEALING OVEN OPERATOR, ABX Indication: Surgical Prophylaxis Start Date: 05/16/20 Stop Date: 05/18/20 Status: DiscontinuedANES acetaminophen 1,000 mg, Route: PO, Drug form: TAB, ONCE, Dosing Weight 66.818, kg, PRN Pain Score 1-3, Start date:05/17/20 15:27:00 ANNEALING OVEN OPERATOR Start Date: 05/17/20 Stop Date: 05/18/20 Status: DiscontinuedANES albuterol 0.083% inhalation solution 2.49 mg, Route: NEB, Q20Min, Dosing Weight 66.818, kg, PRN Wheezing, Priority: STAT, Start date: 05/17/20 15:27:00 ANNEALING OVEN OPERATOR, Duration: 30 day, Stop date: 06/16/20 15:26:00 ANNEALING OVEN OPERATOR Start Date: 05/17/20 Stop Date: 05/18/20 Status: DiscontinuedANES diphenhydrAMINE 12.5 mg, Route: IVP, Drug form: INJ, Q6H, Dosing Weight 66.818, kg, PRN Itching, Start date: 05/17/20 15:27:00 ANNEALING OVEN OPERATOR, Duration: 30 day, Stop date: 06/16/20 15:26:00 ANNEALING OVEN OPERATOR Start Date: 05/17/20 Stop Date: 05/18/20 Status: DiscontinuedANES ePHEDrine 5 mg, Route: IVP, Q5Min, Dosing Weight 66.818, kg, PRN Low Blood Pressure, Start date: 05/17/20 15:27:00 ANNEALING OVEN OPERATOR, Duration: 30 day, Stop date: 06/16/20 15:26:00 ANNEALING OVEN OPERATOR Start Date: 05/17/20 Stop Date: 05/18/20 Status: DiscontinuedANES fentaNYL 25 microgram, Route: IVP, Q5Min, Dosing Weight 66.818, kg, PRN Pain Score 4-6, Priority: Routine, Start date: 05/17/20 15:27:00 ANNEALING OVEN OPERATOR, Duration: 4 doses or times, Stop date: Limited # of times Start Date: 05/17/20 Stop Date: 05/18/20 Status: DiscontinuedANES flumazenil 0.2 mg, Route: IVP, PRN, Dosing Weight 66.818, kg, PRN Benzodiazepine Reversal, Initial dose, Start date: 05/17/20 15:27:00 ANNEALING OVEN OPERATOR, Duration: 30 day, Stop date: 06/16/20 15:26:00 ANNEALING OVEN OPERATOR Start Date: 05/17/20 Stop Date: 05/18/20 Status: DiscontinuedANES hydrALAZINE 10 mg, Route: IVP, Q20Min, Dosing Weight 66.818, kg, PRN Elevated BP, Start date: 05/17/20 15:27:00 ANNEALING OVEN OPERATOR, Duration: 2 doses or times, Stop date: Limited # of times Start Date: 05/17/20 Stop Date: 05/18/20 Status: DiscontinuedANES HYDROmorphone 0.5 mg, Route: IVP, Q5Min, Dosing Weight 66.818, kg, PRN Pain Score 7-10, Start date: 05/17/20 15:27:00 ANNEALING OVEN OPERATOR, Duration: 4 doses or times, Stop date: [...] PRN Narcotic Reversal, Start date: 05/17/20 15:27:00 ANNEALING OVEN OPERATOR, Duration: 8 doses or times, Stop date: Limited # of times Start Date: 05/17/20 Stop Date: 05/18/20 Status: DiscontinuedANES ondansetron 4 mg, Route: IVP, ONCE, Dosing Weight 66.818, kg, PRN Nausea & Vomiting, Start date: 05/17/20 15:27:00 ANNEALING OVEN OPERATOR Start Date: 05/17/20 Stop Date: 05/18/20 Status: DiscontinuedANES oxyCODONE 5 mg immediate release tablet 5 mg, Route: PO, Drug form: TAB, Q4H, Dosing Weight 66.818, kg, PRN Pain Score 4-6, Start date: 05/17/20 15:27:00 ANNEALING OVEN OPERATOR, Duration: 30 day, Stop date: 06/16/20 15:26:00 ANNEALING OVEN OPERATOR Start Date: 05/17/20 Stop Date: 05/18/20 Status: DiscontinuedceFAZolin (ANES) Route: IV, Drug form: INJ, ONCE, Stop date: 05/17/20 12:08:00 ANNEALING OVEN OPERATOR Start Date: 05/17/20 Stop Date: 05/17/20 Status: CompletedfentaNYL (ANES) Route: IV, Drug form: INJ, ONCE, Stop date: 05/17/20 12:18:00 ANNEALING OVEN OPERATOR Start Date: 05/17/20 Stop Date: 05/17/20 Status: CompletedLactated Ringers Injection IV 1000 mL 1,000 mL, Rate: 75 ml/hr, Infuse over: 13.3 hr, Route: IV, Dosing Weight 66.818 kg, Total Volume: 1,000, Start date: 05/17/20 10:07:00 ANNEALING OVEN OPERATOR, Duration: 30 day, Stop date: 06/16/20 10:06:00 ANNEALING OVEN OPERATOR, 1.74, m2 Start Date: 05/17/20 Stop Date: 05/17/20 Status: Discontinuedmidazolam (ANES) Route: IV, Drug form: SOLN, ONCE, Stop date: 05/17/20 12:03:00 ANNEALING OVEN OPERATOR Start Date: 05/17/20 Stop Date: 05/17/20 Status: Completedpropofol (ANES) Route: IV, Drug form: INJ, ONCE, Stop date: 05/17/20 12:18:00 ANNEALING OVEN OPERATOR Start Date: 05/17/20 Stop Date: 05/17/20 Status: CompletedSodium Chloride 0.9% (Bolus) IV 500 mL, Infuse Over: 20 minutes, Route: IV, ONCE, Dosing Weight 66.818 kg, Start date: 05/17/20 15:27:00 ANNEALING OVEN OPERATOR, Stop date: 05/17/20 15:27:00 ANNEALING OVEN OPERATOR Start Date: 05/17/20 Stop Date: 05/17/20 Status: OrderedSodium Chloride 0.9% IV (ANES) 500 mL Route: IV, Total Volume: 500, Start date: 05/17/20 12:08:00 ANNEALING OVEN OPERATOR, Stop date: 05/17/20 13:08:00 ANNEALING OVEN OPERATOR Start Date: 05/17/20 Stop Date: 05/17/20 Status: Completedvancomycin 1 gm, Route: IVPB, Drug form: INJ, PRE OP, Dosing Weight 63.636, kg, Start date: 05/16/20 17:00:00 ANNEALING OVEN OPERATOR, Duration: 1 day, Stop date: 05/17/20 16:59:00 ANNEALING OVEN OPERATOR, ABX Indication: Surgical Prophylaxis Start Date: 05/16/20 Stop Date: 05/18/20 Status: Discontinuedvancomycin (ANES) 1000 mg Route: IV, Drug form: INJ, Start date: 05/17/20 11:46:00 ANNEALING OVEN OPERATOR, Stop date: 05/17/20 12:46:00 ANNEALING OVEN OPERATOR Start Date: 05/17/20 Stop Date: 05/17/20 Status: [...]
--- OUTSIDE RECORDS SUMMARY | 2020-07-28 23:24 | XMS REPORT | Summary of Care ---
:1955 Author Organization [facility] [place] Address [address] [place] [address]- phone Encounter HQ Henrik(CATALINA) [id number] Date(s): 07/20/20 - 07/20/20 [facility] [address] [place] [address]- [phone] Discharge Disposition: Home or Self Care Attending Physician: Paul Zheng MD Referring Physician: Paul Zheng MD Vital Signs Most recent to oldest [Reference Range]: 1 Height 160.02 cm (07/20/20 1:53 PM) Blood Pressure [90-140/60-90 mmHg] 170/80 mmHg *HI* (07/20/20 1:53 PM) Respiratory Rate [14-20 BRMIN] 16 BRMIN (07/20/20 1:53 PM) Peripheral Pulse Rate [60-100 bpm] 63 bpm (07/20/20 1:53 PM) Weight 63.636 kg (07/20/20 1:53 PM) Body Mass Index 24.85 m2 (07/20/20 1:53 PM) Problem List Condition Effective Dates Status Health Status Informant CA - Cancer of colon(Confirmed) Active Stroke(Confirmed) Resolved ESRD on peritoneal Active dialysis(Confirmed) H/O: stroke(Confirmed) Active HT - Hypertension(Confirmed) Active Hyperlipidemia(Confirmed) Resolved HTN (hypertension)(Confirmed) Resolved Kidney disease(Confirmed) Resolved Colon cancer(Confirmed) Resolved Myelopathy(Confirmed) Active Allergies, Adverse Reactions, Alerts Substance Reaction Severity Status amLODIPine Active Medications Dialyvite 800 Ultra D 0 Refill(s) Start Date: 07/20/20 Status: OrderedhydrALAZINE 25 mg, PO, Daily, 0 Refill(s) Start Date: 07/20/20 Stop Date: 07/20/20 Status: Discontinuedramipril 5 mg, PO, Daily, 0 Refill(s) Start Date: 07/20/20 Status: Orderedspironolactone 1 mg, PO, Daily, # 60 tab, 0 Refill(s) Start Date: 07/20/20 Status: Ordered Results No data available for this section Immunizations No data available for this section Procedures Procedure Date Related Diagnosis Body Site Status Colectomy Completed Thyroidectomy Completed Total hysterectomy Completed Social History Social History Type Response Alcohol Never Employment/School 1 Smoking Status Never smoker; Previous treat ment: None; Concerns about tobacco use in household: No; Exposure to Tobacco Smoke None; Cigarette Smoking Last 365 Days No; Reg Smoking Cessation Counseling No entered on: 07/20/20 1May release medical information to Spouse- Clayton Corral Assessment and Plan No data available for this section
--- OUTSIDE RECORDS SUMMARY | 2020-07-28 23:26 | XMS REPORT | Continuity of Care Document ---
:1955 Author Organization [facility] t Address [address] [place] [address] Care Team Providers Name Role Phone Patrice Zheng Attending Clinician Doctor Unassigned, Name Attending Clinician Unavailable Oseas Luke Attending Clinician Babak Cerarto Attending Clinician Leonard Oakes Jr Admitting Clinician Oseas Luke Admitting Clinician Problems Condition Condition Condition Status Onset Resolution Last Treating Co mments Source Name Details Category Date Date Treatment Clinician Date UNK Diagnosis Active 2019-062020-05-26 Mem oria 07-17 07:37:00 l UNK 00:00: [place] 00 Active 05/17/2020 [facility] CATHETER Diagnosis Active 2019-062020-05-26 M emoria DIALYSIS 07-17 08:06:00 l PERITONEAL CATHETER 00:00: He rmann DIALYSIS 00 PERITONEAL Active 05/17/2020 [facility] ARM PAIN Diagnosis Active 2019-062020-04-13 M emoria 0-13 21:44:00 l ARM PAIN 00:00: Keenan n 00 Active 04/05/[address] [facility] [address] SENT Diagnosis Active 2019-062020-04-05 Me moria 0-13 21:18:[address] SENT 00:00: [place] 00 Active 04/05/2020 [facility] NEW Diagnosis Active 2020-07-08 Mem oria EVALUATION 2-10 14:24:00 l NEW 00:00: [place] EVALUATION 00 Active 08/03/2019 [facility] N18.6 Diagnosis Active 2019-03-10 Mem oria - 10:07:00 l N18.6 00:00: [place] 00 Active 03/09/2019 [facility] CKD Diagnosis Active 2019-01-19 Mem oria 01-15 11:41:00 l CKD 00:00: [place] 00 Active 01/15/2019 [facility] 620.2 - Diagnosis Active 2011-062012-06-08 [place] mor[place] OVARIAN 0-16 15:31:00 l CYST NE 620.2 - 00:01: Keenan n OVARIAN 00 CYST NE Active 04/08/2012 [facility] [place] FOLLOW UP Diagnosis Active 2012-05-19 Memoria 03-12 10:19:00 l FOLLOW 00:00: [place] UP 00 Active 2 [facility] CANCER OF Diagnosis Active 2012-01-17 Memoria RECTAL 01-09 09:50:00 l AMPULLA CANCER 00:00: [place] OF RECTAL 00 AMPULLA Active 01/10/2012 [facility] COLON Diagnosis Active 2012-02-15 Mem oria CANCER 12-26 13:01:00 l COLON 00:00: [place] CANCER 00 Active 12/27/2011 [facility] Pain in Problem 2020-04-11 Anthony litzy arm, 07:26:40 l unspecifie Pain in Her cardenas d arm, unspecifie d 04/11/2020 [facility] Cerebrovas Problem Resolve 2020-07-23 Memoria cular d 01:39:37 l accident [place] (disorder) Cerebrovas cular accident (disorder) Resolved Problem 07/23/2020 [facility] Hyperlipid Problem Resolve 2020-07-23 Memoria emia d 01:39:37 l (disorder) Keenan n Hyperlipid emia (disorder) Resolved Problem 07/23/2020 [facility] Kidney Problem Resolve 2020-07-23 Anthony litzy disease d 01:39:37 l (disorder) Kidney Herm vin disease (disorder) Resolved Problem 07/23/2020 [facility] CA - Problem Active 2012-11-08 Memor ia Cancer of 21:08:25 l colon CA - [place] Cancer of colon Active Problem 11/08/2012 [facility], AUBRIELogan Hanley, DAMIAN Baez Cholestero Problem Active 2012-11-08 M emoria l 21:08:25 l [place] Cholestero l Active Problem 11/08/2012 [facility], DAMIAN Hanley, DAMIAN Baez H/O: Problem Active 2012-11-08 Memor ia stroke 21:08:25 l H/O: [place] stroke Active Problem 11/08/2012 [facility], DAMIAN Hanley, DAMIAN Baez HT - Problem Active 2012-11-08 Memor ia Hypertensi 21:08:25 l on HT - [place] Hypertensi on Active Problem 3 [facility], DAMIAN Hanley, DAMIAN [place] Malignant Problem Active 2020-07-23 Me moria tumor of 01:39:37 l colon [place] (disorder) Malignant tumor of colon (disorder) Active Problem 07/23/2020 [facility] Dependence Problem Active 2020-07-23 M emoria on 01:39:37 l peritoneal Keenan n dialysis 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) Active Problem 07/23/2020 [facility] History of Problem Active 2020-07-23 M emoria - CVA 01:39:37 l (context-d History Her cardenas ependent of - CVA category) (context-d ependent category) Active Problem 07/23/2020 [facility] Hypertensi Problem Active 2020-07-23 M emoria ve 01:39:37 l disorder, [place] systemic Hypertensi arterial ve (disorder) disorder, systemic arterial (disorder) Active Problem 07/23/2020 [facility] Spinal Problem Active 2020-07-23 Memor ia cord 01:39:37 l disorder Spinal Keenan n (disorder) cord disorder (disorder) Active Problem 07/23/2020 [facility] PAIN IN Diagnosis Active 2020-04-13 Me moria ARM, 21:44:00 l UNSPECIFIE PAIN IN Her cardenas D ARM, UNSPECIFIE D Active [facility] Allergies, Adverse Reactions, Alerts Allergy Allergy Status Severity Reaction(s) Onset Inactive Treating Comm ents Source Name Type Date Date Clinician Heron amLODIPi Active Alyssa Hanley Social History Social Habit Start Date Stop Date Quantity Comments Source Social History 2019-01-15 2019-01-15 [facility] 18:23:27 18:23:27 Medications Ordered Filled Start Stop Current Ordering Indication Dosage Frequency Signature Comments Components Source Medication Medication Date Date Medication? Clinician (SIG) Name Name Ramipril Yes 5 mg, PO, Anthony litzy -27 Daily, 0 l 20:07: Refill(s) Spironolact Yes 1 mg, PO, M emoria one 07-20 Daily, # l 20:07: 60 tab, 0 Refill(s) Dialyvite Yes 0 Memoria 800 Ultra D 07-20 Refill(s) l 20:07: Hydralazine No 25 mg, PO, Memoria - Daily, 0 l 20:07: Refill(s) glycopyrrol 2019-06 No Route: IV, Memoria ate (ANES) 07-27 Drug form: l 19:23: INJ, ONCE, Stop date: 05/26/20 13:23:00 [employer] neostigmine 2019-06 No Route: IV, Memoria (ANES) 07-27 Drug form: l 19:23: INJ, ONCE, Stop date: 05/26/20 13:23:00 [employer] labetalol 2019-06 No Route: IV, Me moria (ANES) 07-27 Drug form: l 19:23: INJ, ONCE, Stop date: 05/26/20 13:23:00 [employer] Hydralazine 2019-06 No 10 mg, Anthony litzy 07-27 Route: l 19:11: IVP, Q20Min, Dosing Weight 64.545, kg, PRN Elevated BP, Start date: 05/26/20 13:11:00 [employer], Duration: 2 doses or times, Stop date: Limited # of times Labetalol 2019-06 No 10 mg, Memori a 2-03 Route: l 19:11: IVP, [place] 00 Q5Min, Dosing Weight 64.545, kg, PRN Elevated BP, Start date: 05/26/20 13:11:00 [employer], Duration: 5 doses or times, Stop date: Limited # of times Acetaminoph 2019-06 No 1,000 mg, M emoria en - Route: PO, l 19:11: Drug form: [place] 00 TAB, ONCE, Dosing Weight 64.545, kg, PRN Pain Score 1-3, Start date: 05/26/20 13:11:00 [employer] Fentanyl 2019-06 No 25 Memoria 2-03 microgram, l 19:11: Route: [place] 00 IVP, Q5Min, Dosing Weight 64.545, kg, PRN Pain Score 4-6, Priority: Routine, Start date: 05/26/20 13:11:00 [employer], Duration: 4 doses or times, Stop date: Limited # of times Hydromorpho 2019-06 No 0.5 mg, Mem oria ne 07-27 Route: l 19:11: IVP, [place] 00 Q5Min, Dosing Weight 64.545, kg, PRN Pain Score 7-10, Start date: 05/26/20 13:11:00 [employer], Duration: 4 doses or times, Stop date: Limited # of times Flumazenil 2019-06 No 0.2 mg, Anthony litzy 07-27 Route: l 19:11: IVP, PRN, Dosing Weight 64.545, kg, PRN Benzodiaze pine Reversal, Initial dose, Start date: 05/26/20 13:11:00 [employer], Duration: 30 day, Stop date: 06/25/20 13:10:00 [employer] Naloxone 2019-06 No 0.4 mg, Memori a 07-27 Route: l 19:11: IVP, [place] 00 Q2MIN, Dosing Weight 64.545, kg, PRN Narcotic Reversal, Start date: 05/26/20 13:11:00 [employer], Duration: 8 doses or times, Stop date: Limited # of times Ondansetron 2019-06 No 4 mg, Memor ia 2 Route: l 19:11: IVP, ONCE, [place] 00 Dosing Weight 64.545, kg, PRN Nausea & Vomiting, Start date: 05/26/20 13:11:00 [employer] Promethazin 2019-06 No 6.25 mg, Me moria e 2- Route: l 19:11: IVPB, [place] 00 ONCE, Dosing Weight 64.545, kg, PRN Nausea & Vomiting, Start date: 05/26/20 13:11:00 [employer] ePHEDrine 2019-06 No Route: IV, Me moria (ANES) 2- Drug form: l 18:27: INJ, ONCE, Stop date: 05/26/20 12:27:00 [employer] dexamethaso 2019-06 No Route: IV, Memoria ne (ANES) 07-27 Drug form: l 17:57: INJ, ONCE, Stop date: 05/26/20 11:57:00 [employer] ondansetron 2019-06 No Route: IV, Memoria (ANES) 2 Drug form: l 17:57: INJ, ONCE, Stop date: 05/26/20 11:57:00 [employer] fentaNYL 2019-06 No Route: IV, Mem oria (ANES) 07-27 Drug form: l 17:52: INJ, ONCE, Stop date: 05/26/20 11:52:00 [employer] lidocaine 2019-06 No Route: IV, Me moria (ANES) - Drug form: l 17:52: INJ, ONCE, Stop date: 05/26/20 11:52:00 [employer] propofol 2019-06 No Route: IV, Mem oria (ANES) 2- Drug form: l 17:52: INJ, ONCE, Stop date: 05/26/20 11:52:00 [employer] rocuronium 2019-06 No Route: IV, M emoria (ANES) 2- Drug form: l 17:52: INJ, ONCE, Stop date: 05/26/20 11:52:00 [employer] ceFAZolin 2019-06 No Route: IV, Me moria (ANES) 2- Drug form: l 17:52: INJ, ONCE, Stop date: 05/26/20 11:52:00 [employer] norepinephr 2019-06 No Route: IV, Memoria ine (ANES) 2- Drug form: l 17:52: INJ, ONCE, [place] 00 Stop date: 05/26/20 11:52:00 [employer] vancomycin 2019-06 No Route: IV, M chrisria (ANES) 1000 - Drug form: l mg 16:50: INJ, Start [place] 00 date: 05/26/20 10:50:00 [employer], Stop date: 05/26/20 11:50:00 [employer] Sodium 2019-06 No Route: IV, Memor ia Chloride 2-03 Total l 0.9% IV 16:50: Volume: [place] (ANES) 500 00 500, Start mL date: 05/26/20 10:50:00 [employer], Stop date: 05/26/20 11:50:00 [employer] Calcium 2019-06 No 1,000 mL, Memor ia Chloride 2- Rate: 75 l 0.0014 15:44: ml/hr, [place] MEQ/ML / 00 Infuse Potassium over: 13.3 Chloride hr, Route: 0.004 IV, Dosing MEQ/ML / Weight Sodium 66.818 kg, Chloride Total 0.103 Volume: MEQ/ML / 1,000, Sodium Start Lactate date: 0.028 05/26/20 MEQ/ML 9:44:00 Injectable [employer], Solution Duration: 30 day, Stop date: 06/25/20 9:43:00 [employer], 1.74, m2 Sodium 2019-06 No 500 mL, Memoria Chloride 2-03 Rate: 75 l 0.9% IV 500 15:44: ml/hr, Herm vin mL 00 Infuse over: 6.7 hr, Route: IV, Dosing Weight 66.818 kg, Total Volume: 500, Start date: 05/26/20 9:44:00 [employer], Duration: 30 day, Stop date: 06/25/20 9:43:00 [employer], 1.74, m2 Vancomycin 2019-06 No 2000 mg: Me moria 2-02 infuse l 21:00: over 2.5 [place] 00 hours For adult patients only: Round to nearest 250 mg per Medical Staff approval MEDICATION WASTE Product Size: 1000 mg Product Wasted: ___ mg Ancef + 2019-06 No Notes: Memoria sterile 2- (Same As: l water 20 mL 21:00: Ancef, Herm vin 00 Kefzol) MEDICATION WASTE Product Size: 1000 mg Product Wasted: ___ mg Sodium 2019- Yes 500 mL, Memoria Chloride -24 Infuse l 0.9% 21:27: Over: 20 [place] (Bolus) IV 00 minutes, Route: IV, ONCE, Dosing Weight 66.818 kg, Start date: 05/17/20 15:27:00 [employer], Stop date: 05/17/20 15:27:00 [employer] Hydralazine 2019-06 No 10 mg, Anthony litzy 24 Route: l 21:27: IVP, [place] 00 Q20Min, Dosing Weight 66.818, kg, PRN Elevated BP, Start date: 05/17/20 15:27:00 [employer], Duration: 2 doses or times, Stop date: Limited # of times Acetaminoph 2019-06 No 1,000 mg, M emoria en 24 Route: PO, l 21:27: Drug form: [place] 00 TAB, ONCE, Dosing Weight 66.818, kg, PRN Pain Score 1-3, Start date: 05/17/20 15:27:00 [employer] Oxycodone 2019-06 No 5 mg, Memoria Hydrochlori 24 Route: PO, l de 5 MG 21:27: Drug form: Herm vin Oral Tablet 00 TAB, Q4H, Dosing Weight 66.818, kg, PRN Pain Score 4-6, Start date: 05/17/20 15:27:00 [employer], Duration: 30 day, Stop date: 06/16/20 15:26:00 [employer] Morphine 2019- No 2 mg, Memoria -24 Route: l 21:27: IVP, [place] 00 Q5Min, Dosing Weight 66.818, kg, PRN Pain Score 4-6, Start date: 05/17/20 15:27:00 [employer], Duration: 5 doses or times, Stop date: Limited # of times Fentanyl 2019-06 No 25 Memoria 1-24 microgram, l 21:27: Route: [place] 00 IVP, Q5Min, Dosing Weight 66.818, kg, PRN Pain Score 4-6, Priority: Routine, Start date: 05/17/20 15:27:00 [employer], Duration: 4 doses or times, Stop date: Limited # of times Hydromorpho 2019- No 0.5 mg, Mem oria ne 07-17 Route: l 21:27: IVP, [place] 00 Q5Min, Dosing Weight 66.818, kg, PRN Pain Score 7-10, Start date: 05/17/20 15:27:00 [employer], Duration: 4 doses or times, Stop date: Limited # of times Flumazenil 2019-06 No 0.2 mg, Anthony litzy 07-17 Route: l 21:27: IVP, PRN, [place] 00 Dosing Weight 66.818, kg, PRN Benzodiaze pine Reversal, Initial dose, Start date: 05/17/20 15:27:00 [employer], Duration: 30 day, Stop date: 06/16/20 15:26:00 [employer] Naloxone 2019- No 0.4 mg, Memori a 07-17 Route: l 21:27: IVP, [place] 00 Q2MIN, Dosing Weight 66.818, kg, PRN Narcotic Reversal, Start date: 05/17/20 15:27:00 [employer], Duration: 8 doses or times, Stop date: Limited # of times Ephedrine 2019-06 No 5 mg, Memoria 07-17 Route: l 21:27: IVP, [place] 00 Q5Min, Dosing Weight 66.818, kg, PRN Low Blood Pressure, Start date: 05/17/20 15:27:00 [employer], Duration: 30 day, Stop date: 06/16/20 15:26:00 [employer] Albuterol 2019- No 2.49 mg, Anthony litzy 0.83 MG/ML 07-17 Route: l Inhalant 21:27: NEB, [place] Solution 00 Q20Min, Dosing Weight 66.818, kg, PRN Wheezing, Priority: STAT, Start date: 05/17/20 15:27:00 [employer], Duration: 30 day, Stop date: 06/16/20 15:26:00 [employer] Diphenhydra 2019- No 12.5 mg, Me moria mine 07-17 Route: l 21:27: IVP, Drug [place] 00 form: INJ, Q6H, Dosing Weight 66.818, kg, PRN Itching, Start date: 05/17/20 15:27:00 [employer], Duration: 30 day, Stop date: 06/16/20 15:26:00 [employer] Ondansetron 2019-06 No 4 mg, Memor ia 07-17 Route: l 21:27: IVP, ONCE, Dosing Weight 66.818, kg, PRN Nausea & Vomiting, Start date: 05/17/20 15:27:00 [employer] fentaNYL 2019-06 No Route: IV, Mem oria (ANES) 07-17 Drug form: l 18:18: INJ, ONCE, Stop date: 05/17/20 12:18:00 [employer] propofol 2019-06 No Route: IV, Mem oria (ANES) 07-17 Drug form: l 18:18: INJ, ONCE, Stop date: 05/17/20 12:18:00 [employer] ceFAZolin 2019-06 No Route: IV, Me moria (ANES) 07-17 Drug form: l 18:08: INJ, ONCE, Stop date: 05/17/20 12:08:00 [employer] Sodium 2019-06 No Route: IV, Memor ia Chloride 07-17 Total l 0.9% IV 18:08: Volume: [place] (ANES) 500 00 500, Start mL date: 05/17/20 12:08:00 [employer], Stop date: 05/17/20 13:08:00 [employer] midazolam 2019-06 No Route: IV, Me moria (ANES) 07-17 Drug form: l 18:03: SOLN, 00 ONCE, Stop date: 05/17/20 12:03:00 [employer] vancomycin 2019-06 No Route: IV, M emoria (ANES) 1000 07-17 Drug form: l mg 17:46: INJ, Start date: 05/17/20 11:46:00 [employer], Stop date: 05/17/20 12:46:00 [employer] Calcium 2019-06 No 1,000 mL, Memor ia Chloride 24 Rate: 75 l 0.0014 16:07: ml/hr, [place] MEQ/ML / 00 Infuse Potassium over: 13.3 Chloride hr, Route: 0.004 IV, Dosing MEQ/ML / Weight Sodium 66.818 kg, Chloride Total 0.103 Volume: MEQ/ML / 1,000, Sodium Start Lactate date: 0.028 05/17/20 MEQ/ML 10:07:00 Injectable [employer], Solution Duration: 30 day, Stop date: 06/16/20 10:06:00 [employer], 1.74, m2 Vancomycin 2019-06 No 1 gm, Memori a 07-16 Route: l 23:00: IVPB, Drug [place] form: INJ, PRE OP, Dosing Weight 63.636, kg, Start date: 05/16/20 17:00:00 [employer], Duration: 1 day, Stop date: 05/17/20 16:59:00 [employer], ABX Indication : Surgical Prophylaxi s Ancef 2019-06 No 2 gm, Memoria 07-16 Route: l 23:00: IVPB, PRE [place] 00 OP, Dosing Weight 63.636, kg, Start date: 05/16/20 17:00:00 [employer], Duration: 1 day, Stop date: 05/17/20 16:59:00 [employer], ABX Indication : Surgical Prophylaxi s Clonidine 2019-06 Yes 0.3 mg = 1 Me moria Hydrochlori 0-16 tab, PO, l de 0.3 MG 18:03: TID, 0 Keenan n Oral Tablet 00 Refill(s) ferrous 2019-06 Yes 325 mg = 1 Anthony litzy sulfate 325 0-16 tab, PO, l mg oral 18:03: Daily, # Keenan n enteric 00 30 tab, 0 coated Refill(s), tablet Pharmacy: [id number], 170.18, cm, 04/05/20 21:48:00 CDT, Height, 63.636, kg, 04/05/20 21:48:00 CDT, Weight Nephro-Flash 2019-06 No Notes: Anthony litzy Rx 0-16 (Same as: l 14:00: Nephro-Vit [place] 00 e Rx and Diatx) Give with food. atorvastati 2019-06 No Notes: Anthony litzy n 0-15 (Same as: l 02:00: Lipitor) Dilaudid 2019-06 No Notes: Memoria 0-15 (Same as: l 01:19: Dilaudid) ceFAZolin 2019-06 No Route: IV, Me moria (ANES) 0-14 Drug form: l 22:09: INJ, ONCE, [place] 00 Stop date: 04/06/20 17:09:00 CDT glycopyrrol 2019-06 No Route: IV, Memoria ate (ANES) 0-14 Drug form: l 21:50: INJ, ONCE, Stop date: 04/06/20 16:50:00 CDT neostigmine 2019-06 No Route: IV, Memoria (ANES) 0-14 Drug form: l 21:50: INJ, ONCE, Stop date: 04/06/20 16:50:00 CDT sugammadex 2019-06 No Route: IV, M emoria (ANES) 0-14 Drug form: l 21:50: SOLN, ONCE, Stop date: 04/06/20 16:50:00 CDT protamine 2019-06 No Route: IV, Me moria (ANES) 0-14 Drug form: l 21:32: INJ, ONCE, Stop date: 04/06/20 16:32:00 CDT normal 2019-06 No 1,000 mL, Memori a saline 0.9% 0-14 Rate: 100 l IV 1,000 mL 21:26: ml/hr, Infuse over: 10 hr, Route: IV, Dosing Weight 63.636 kg, Total Volume: 1,000, Start date: 04/06/20 16:26:00 CDT, Duration: 30 day, Stop date: 05/06/20 16:25:00 [employer], 1.74, m2, 0 heparin 2019-06 No Notes: Memoria 0-14 porcine l 21:00: heparin heparin 2019-06 No Route: IV, Anthony litzy (ANES) 0-14 Drug form: l 20:08: INJ, ONCE, Stop date: 04/06/20 15:08:00 CDT ondansetron 2019-06 No Route: IV, Memoria (ANES) 0-14 Drug form: l 20:03: INJ, ONCE, Stop date: 04/06/20 15:03:00 CDT rocuronium 2019-06 No Route: IV, M emoria (ANES) 0-14 Drug form: l 19:53: INJ, ONCE, Stop date: 04/06/20 14:53:00 CDT ePHEDrine 2019-06 No Route: IV, Me moria (ANES) 0-14 Drug form: l 19:48: INJ, ONCE, Stop date: 04/06/20 14:48:00 CDT propofol 2019-06 No Route: IV, Mem oria (ANES) 0-14 Drug form: l 19:43: INJ, ONCE, Stop date: 04/06/20 14:43:00 CDT lidocaine 2019-06 No Route: IV, Me moria (ANES) 0-14 Drug form: l 19:43: INJ, ONCE, Stop date: 04/06/20 14:43:00 CDT midazolam 2019-06 No Route: IV, Me moria (ANES) 0-14 Drug form: l 19:38: SOLN, ONCE, Stop date: 04/06/20 14:38:00 CDT fentaNYL 2019-06 No Route: IV, Mem oria (ANES) 0-14 Drug form: l 19:38: INJ, ONCE, Stop date: 04/06/20 14:38:00 CDT Amidate 2019-06 No Route: IV, Anthony litzy (ANES) 0-14 Drug form: l 19:38: INJ, ONCE, Stop date: 04/06/20 14:38:00 CDT ceFAZolin 2019-06 No Route: IV, Me moria (ANES) 0-14 Drug form: l 19:27: INJ, ONCE, Stop date: 04/06/20 14:27:00 CDT vancomycin 2019-06 No Route: IV, M emoria (ANES) 1000 0-14 Drug form: l mg 18:31: INJ, Start date: 04/06/20 13:31:00 CDT, Stop date: 04/06/20 14:31:00 CDT Lactated 2019-06 No Route: IV, Mem oria Ringers 0-14 Total l Injection 18:25: Volume: Maribell nn IV (ANES) 00 500, Start 500 mL date: 04/06/20 13:25:00 CDT, Stop date: 04/06/20 14:25:00 CDT Sodium 2019-06 No 500 ml, Memoria Chloride 0-14 Rate: 25 l 0.9% IV 500 16:47: ml/hr, Herm vin ml 00 Infuse over: 20 hr, Route: IV, Dosing Weight 63.636 kg, Total Volume: 500, Start date: 04/06/20 11:47:00 CDT, Duration: 30 day, Stop date: 05/06/20 11:46:00 [employer], 1.74, m2 Tylenol 2019-06 No 650 mg, Memoria 0-14 Route: PO, l 15:33: Drug form: [place] 00 TAB, ONCE, Dosing Weight 63.636, kg, PRN Pain Score 1-3, Start date: 04/06/20 10:33:00 CDT Allopurinol 2019-06 No Notes: Anthony litzy 0-14 (Same as: l 14:00: Zyloprim) [place] 00 Aspirin 81 2019-06 No Notes: Do Me moria MG Enteric 0-14 not crush l Coated 14:00: or chew. [place] Tablet 00 (Same As: Ecotrin) Clonidine 2019-06 No Notes: Memori a Hydrochlori 0-14 (Same As: l de 0.3 MG 14:00: Catapres) Her cardenas Oral Tablet 00 ferrous 2019-06 No 256 mg, Memoria gluconate 0-14 Route: PO, l 14:00: Drug form: [place] 00 TAB, Daily, Dosing Weight 63.636, kg, Start date: 04/06/20 9:00:00 CDT, Duration: 30 day, Stop date: 05/05/20 9:00:00 [employer] Triiodothyr 2019-06 No Notes: Anthony litzy onine 0-14 (Same as: l 14:00: Cytomel) [place] 00 24 HR 2019-06 No Notes: Memoria Metoprolol 0-14 (Same as: l Tartrate 25 14:00: Toprol XL) [place] MG Extended 00 Do Not Release Crush Tablet [Toprol] paricalcito 2019-06 No Notes: Anthony litzy l 0.001 MG 0-14 (Same as: l Oral 14:00: Zemplar) [place] Capsule 00 ferrous 2019-06 No Notes: Memoria sulfate 0-14 Give with l 14:00: food. "Do [place] 00 Not Crush" Thyroxine 2019-06 No Notes: Memori a 0-14 Take 1 l 11:30: hour [place] 00 before or 2 hours after meal; Enteral feeds may interefere with the absorption of this medication .(Same as:Levothr oid, Synthroid) Hydralazine 2019-06 No Notes: Anthony litzy Hydrochlori 0-14 (Same as: l de 100 MG 05:00: Apresoline He rmann Oral Tablet 00 ) May interfere w/enteral feedings Take With Food Hydralazine 2019-06 No Notes: Anthony litzy 0-14 (Same as: l 03:03: Apresoline [place] 00 ) Push over 5 minutes Benzocaine 2019-06 No Notes: Memor ia 15 MG / 0-14 Same as: l Menthol 3.6 03:03: Cepacol Her cardenas MG Lozenge 00 [Cepacol Sore Throat Pain Relief 15/3.6] Tessalon 2019-06 No Notes: Memoria Perles 0-14 (Same As: l 03:03: Tessalon [place] 00 Perles) "Do Not Crush" tizanidine 2019-06 No Notes: Memor ia 0-14 (Same As: l 03:03: Zanaflex) [place] Acetaminoph 2019-06 No Notes: Anthony litzy en 325 MG / 0-14 (Same as: l Hydrocodone 01:40: Rudolph Maribell nn Bitartrate 00 325/5) Do 5 MG Oral not exceed Tablet 4gm/day of [Rudolph acetaminop 5/325] hen. Dextrose 2019-06 No 12.5 gm, Memor ia 50% Syringe 0-14 25 mL, l (D50W) 01:39: Route: [place] 00 IVP, Drug Form: INJ, Dosing Weight 63.636, kg, PRN, PRN Blood Glucose Results, Start date: 04/05/20 20:39:00 CDT, Duration: 30 day, Stop date: 05/05/20 19:38:00 [employer], 0 Glucagon 2019-06 No 1 mg, Memoria 0-14 Route: IM, l 01:39: Drug form: [place] 00 PDR/INJ, PRN, Dosing Weight 63.636, kg, PRN Blood Glucose Results, Start date: 10/13/20 20:39:00 CDT, Duration: 30 day, Stop date: 05/05/20 19:38:00 [employer], 0 Docusate 2019-06 No Notes: Memoria 0-14 (Same as: l 01:39: Colace) (Do Not Crush) Ondansetron 2019-06 No Notes: Anthony litzy 0-14 (Same as: l 01:39: Zofran) MEDICATION WASTE Product Size: 4 mg Product Wasted: ___ mg Melatonin 2019-06 No Notes: Memori a 0-14 (Same as: l 01:39: Melatonin) Talon 00 Acetaminoph 2019-06 No Notes: Do M emoria en 0-14 not exceed l 01:39: 4 gm/day. [place] 00 (Same as: Tylenol) atorvastati Yes 40 mg = 1 M emoria n 40 mg 7-28 tab, PO, l oral tablet 17:26: Bedtime, # [place] 00 30 tab, 0 Refill(s) Aspirin 81 Yes 81 mg = 1 Me moria MG Enteric 7-28 tab, PO, l Coated 17:21: Daily, # Talon Tablet 00 90 tab, 3 Refill(s) Ondansetron [...] l MG / 17:05: day, # 20 [place] sennosides, 00 tab, 0 HALF-WAY 8.6 MG Refill(s) Oral Tablet metoprolol Yes 25 mg = 1 Me moria 25 mg oral 7-28 tab, PO, l tablet, 17:05: Daily, # Keenan n extended 00 30 tab, 0 release Refill(s) Clonidine No Notes: Memori a Hydrochlori - (Same As: l de 0.3 MG 18:00: Catapres) Her cardenas Oral Tablet 00 metoprolol No Notes: Memor ia extended 01-17 (Same as: l release 17:00: Toprol XL) Do Not Crush Ondansetron No Notes: Anthony litzy - (Same as: l 16:09: Zofran) MEDICATION WASTE Product Size: 4 mg Product Wasted: ___ mg Reglan No Notes: Memoria 7- (Same as: l 15:31: Reglan) Hydralazine No Notes: Anthony litzy - (Same as: l 15:31: Apresoline ) Push over 5 minutes Allopurinol No Notes: Anthony litzy - (Same as: l 14:00: Zyloprim) ferrous No 256 mg, Memoria gluconate 01-17 Route: PO, l 14:00: Drug form: TAB, Daily, Dosing Weight 62.358, kg, Start date: 01/17/19 9:00:00 CDT, Duration: 30 day, Stop date: 02/15/19 9:00:00 CDT Docusate No Notes: [facility]oria Sodium 50 -27 (Same as l MG / 14:00: Senokot-S) sennosides, 00 Equiv. to HALF-WAY 8.6 MG Zoraida-Colac Oral Tablet e. ferrous No Notes: Memoria sulfate 7-27 Give with l 14:00: food. "Do Not Crush" paricalcito No Notes: Anthony litzy l 0.001 MG - (Same as: l Oral 14:00: Zemplar) Capsule 00 Nifedical No Notes: Memori a XL - (Same as: l 14:00: Adalat CC, [place] Procardia XL) Give on empty stomach. Take 1 hour before or 2 hours after meal; "Avoid grapefruit and grapefruit juice". Do not crush Nephro-Flash No Notes: Anthony litzy Rx 01-17 (Same as: l 14:00: Nephro-Vit Talon 00 e Rx and Diatx) Give with food. Triiodothyr No Notes: Anthony litzy onine 01-17 (Same as: l 11:30: Cytomel) Thyroxine No Notes: Memori a - Take 1 l 11:30: hour before or 2 hours after meal; Enteral feeds may interefere with the absorption of this medication .(Same as:Levothr oid, Synthroid) heparin No Notes: [facility]oria 01-17 porcine l 06:00: heparin atorvastati No Notes: Anthony litzy n 01-17 (Same as: l 02:00: Lipitor) Acetaminoph No Notes: Anthony litzy en 325 MG / 01-17 (Same as: l Hydrocodone 00:40: Rudolph Maribell nn Bitartrate 00 325/5) Do 5 MG Oral not exceed Tablet 4gm/day of [Rudolph acetaminop 5/325] hen. Acetaminoph No 2 tab, Anthony litzy en 325 MG / 01-17 Route: PO, l Hydrocodone 00:36: Dosing Herm vin Bitartrate 00 Weight 5 MG Oral 62.358, Tablet kg, Q4H, [Rudolph STAT, 5/325] Start date: 01/16/19 19:36:00 CDT, Duration: 30 day, Stop date: 02/15/19 16:00:00 CDT Milk of No Notes: [facility] Magnesia 7-26 (Same as: l 23:23: Milk of Magnesia, MOM) Aspirin 81 No Notes: Memor ia MG Chewable 7-26 Take with l Tablet 22:30: food. Zofran No Notes: Memoria 7-26 (Same as: l 22:24: Zofran) MEDICATION WASTE Product Size: 4 mg Product Wasted: ___ mg Lactulose No Notes: Memori a 667 MG/ML 7-26 (Same l Oral 22:23: as:Chronul [place] Solution 00 ac) Morphine No Notes: [facility]oria 01-16 (Same l 22:23: as:MORPhin [place] e Sulfate) Metoprolol No Notes: Memor ia 01-16 (Same as: l 22:16: Lopressor) Push over 2 minutes Epogen No Notes: Memoria 01-16 (Same as: l 22:00: Procrit) epoetin jennifer 4000 unit/1 ml VL For dialysis only. (Epogen) WASTE: F/P - Red; E -Red MEDICATION WASTE Product Size: 4000 unit Product Wasted: ___ unit Hydralazine No Notes: Anthony litzy Hydrochlori 01-16 (Same as: l de 100 MG 22:00: Apresoline He rmann Oral Tablet ) May interfere w/enteral feedings Take With Food Promethazin No 6.25 mg, Me moria e 01-16 Route: l 17:59: IVPB, [place] 00 ONCE, Dosing Weight 62.358, kg, PRN Nausea & Vomiting, Start date: 01/16/19 12:59:00 CDT Naloxone No 0.1 mg, Memori a 01-16 Route: l 17:59: SUB-Q, [place] 00 Q6H, Dosing Weight 62.358, kg, PRN Itching, Start date: 01/16/19 12:59:00 CDT, Duration: 30 day, Stop date: 02/15/19 12:58:00 CDT Meperidine No 12.5 mg, Mem oria 01-16 Route: l 17:59: IVP, [place] 00 Q30Min, Dosing Weight 62.358, kg, PRN Other -See Comment, For shivering, Start date: 01/16/19 12:59:00 CDT, Duration: 2 doses or times, Stop date: Limited # of times Ondansetron 0 No 4 mg, Memor ia 01-16 Route: l 17:59: IVP, ONCE, [place] 00 Dosing Weight 62.358, kg, PRN Nausea & Vomiting, Start date: 01/16/19 12:59:00 CDT Flumazenil 2019-0 No 0.2 mg, Anthony litzy 01-16 Route: l 17:59: IVP, PRN, [place] 00 Dosing Weight 62.358, kg, PRN Benzodiaze pine Reversal, Initial dose, Start date: 01/16/19 12:59:00 CDT, Duration: 30 day, Stop date: 02/15/19 12:58:00 CDT Fentanyl 2019-0 No 50 [facility]oria 01-16 microgram, l 17:59: Route: [place] 00 IVP, Q5Min, Dosing Weight 62.358, kg, PRN Pain Score 7-10, Priority: Routine, Start date: 01/16/19 12:59:00 CDT, Duration: 2 doses or times, Stop date: Limited # of times Hydromorpho 2019-0 No 0.5 mg, Mem oria ne 01-16 Route: l 17:59: IVP, [place] 00 Q5Min, Dosing Weight 62.358, kg, PRN Pain Score 7-10, Start date: 01/16/19 12:59:00 CDT, Duration: 4 doses or times, Stop date: Limited # of times Diphenhydra 2019-0 No 12.5 mg, Me moria mine 01-16 Route: l 17:59: IVP, Drug [place] 00 form: INJ, Q6H, Dosing Weight 62.358, [...] 01-16 Route: PO, l 17:59: Drug form: [place] 00 TAB, ONCE, Dosing Weight 62.358, kg, PRN Pain Score 1-3, Start date: 01/16/19 12:59:00 CDT Hydralazine No 10 mg, Anthony litzy 01-16 Route: l 17:59: IVP, [place] 00 Q20Min, Dosing Weight 62.358, kg, PRN Elevated BP, Start date: 01/16/19 12:59:00 CDT, Duration: 2 doses or times, Stop date: Limited # of times Labetalol No 10 mg, Memori a 01-16 Route: l 17:59: IVP, [place] 00 Q5Min, Dosing Weight 62.358, kg, PRN Elevated BP, Start date: 01/16/19 12:59:00 CDT, Duration: 5 doses or times, Stop date: Limited # of times esmolol No Route: IV, Anthony litzy (ANES) 01-16 Drug form: l 17:45: INJ, ONCE, Stop date: 01/16/19 12:45:00 CDT Dextrose No Route: IV, Mem oria 50% in 01-16 Stop date: l Water IV 17:45: 01/16/19 Maribell nn (ANES) 00 12:45:00 CDT phenylephri No Route: IV, Memoria [...] ONCE, Stop date: 01/16/19 11:52:00 CDT norepinephr 2018- No Route: IV, Memoria ine (ANES) 01-16 Drug form: l 16:52: INJ, ONCE, Stop date: 01/16/19 11:52:00 CDT lidocaine 2018-0 No Route: IV, Me moria (ANES) 01-16 Drug form: l 16:52: INJ, ONCE, Stop date: 01/16/19 11:52:00 CDT ondansetron 2018- No Route: IV, [facility]oria (ANES) 01-16 Drug form: l 16:42: INJ, ONCE, Stop date: 01/16/19 11:42:00 CDT ceFAZolin 2018- No Route: IV, Me moria (ANES) 01-16 Drug form: l 16:42: INJ, ONCE, Stop date: 01/16/19 11:42:00 CDT fentaNYL 2018- No Route: IV, Mem oria (ANES) 01-16 Drug form: l 16:37: INJ, ONCE, Stop date: 01/16/19 11:37:00 CDT vancomycin No Route: IV, M emoria (ANES) 1000 01-16 Drug form: l mg 15:50: INJ, Start date: 01/16/19 10:50:00 CDT, Stop date: 01/16/19 11:50:00 CDT Sodium No Route: IV, Memor ia Chloride 01-16 Total l 0.9% IV 15:46: Volume: Talon (ANES) 1000 1,000, mL Start date: 01/16/19 10:46:00 CDT, Stop date: 01/16/19 11:46:00 CDT Insulin 2018-0 No 5 unit, Memoria regular 01-16 Route: IV, l 15:40: ONCE, Dosing Weight 62.358, kg, Start date: 01/16/19 10:40:00 CDT, Stop date: 01/16/19 10:40:00 CDT Dextrose No 12.5 gm, Memor ia 01-16 Route: l 15:39: IVPB, ONCE, Dosing Weight 62.358, kg, Start date: 01/16/19 10:39:00 CDT, Stop date: 01/16/19 10:39:00 CDT Calcium 2019-0 No 1,000 mL, Memor ia Chloride 7-26 Rate: 25 l 0.0014 13:46: ml/hr, [place] MEQ/ML / 00 Infuse Potassium over: 40 Chloride hr, Route: 0.004 IV, Dosing MEQ/ML / Weight Sodium 62.358 kg, Chloride Total 0.103 Volume: MEQ/ML / 1,000, Sodium Start Lactate date: 0.028 01/16/19 MEQ/ML 8:46:00 Injectable CDT, Solution Duration: 1 day, Stop date: 01/17/19 8:45:00 CDT, 1.68, m2, 0 Sodium 2019-0 No 1,000 mL, Memori a Chloride 7-26 Rate: 25 l 0.9% IV 13:46: ml/hr, Atlon 1,000 mL 00 Infuse over: 40 hr, Route: IV, Dosing Weight 62.358 kg, Total Volume: 1,000, Start date: 01/16/19 8:46:00 CDT, Duration: 1 day, Stop date: 01/17/19 8:45:00 CDT, 1.68, m2, 0 Vitamin B12 2019-0 Yes monthly, 0 Memoria 7-25 Refill(s) l 18:31: [place] 00 allopurinol 2019-0 Yes 100 mg = 1 Memoria 100 mg oral 7-25 tab, PO, l tablet 18:30: Daily, # [place] 00 90 tab, 1 Refill(s) Aspirin 81 2019-0 Yes 81 mg = 1 Me moria MG Chewable 7-25 tab, PO, l Tablet 18:30: Daily, [place] 00 tab, 0 Refill(s) 24 HR 2019-0 No 30 mg = 1 [facility] Nifedipine 7-25 tab, PO, l 30 MG 18:30: Daily, # [place] Extended 00 30 tab, 0 Release Refill(s) Tablet [Nifedical] paricalcito 2019-0 Yes 1 Memori a l 0.001 MG 7-25 microgram l Oral 18:29: = 1 cap, [place] Capsule 00 PO, Daily, # 30 cap, 0 Refill(s) levothyroxi 2019-0 Yes 50 Memori a ne 50 mcg 7-25 microgram l (0.05 mg) 18:29: = 1 tab, Herm vin oral tablet 00 PO, Daily, # 30 tab, 0 Refill(s) liothyronin Yes 5 Memori a e 5 mcg 7-25 microgram l oral tablet 18:28: = 1 tab, He rmann 00 PO, Daily, # 30 tab, 0 Refill(s) Ferate 256 2019- Yes 256 mg = 1 M emoria mg (28 mg 7-25 tab, PO, l elemental 18:28: Daily, 0 Herm vin iron) oral 00 Refill(s) tablet Hydralazine Yes 100 mg = 1 [facility] Hydrochlori 7-25 tab, PO, l de 100 MG 18:27: TID, # 90 Her cardenas Oral Tablet 00 tab, 3 Refill(s) atorvastati Yes 40 mg = 1 M emoria n 40 mg 7-25 tab, PO, l oral tablet 18:27: Bedtime, # [place] 00 30 tab, 0 Refill(s) Clonidine Yes 0.3 mg = 1 Me moria Hydrochlori 7-25 tab, PO, l de 0.3 MG 18:25: TID, # 60 Her cardenas Oral Tablet 00 tab, 1 Refill(s) Vancomycin No 2001 mg: Me moria 7-25 infuse l 18:00: over 2.5 Talon 00 hours For adult patients only: Round [...] Name Observation Time Observation Value Comments Source Systolic (mm Hg) 2020-07-20 19:53:00 Anthony Hanley Diastolic (mm Hg) 2020-07-20 19:53:00 [facility] josé Hanley Heart Rate 2020-07-20 19:53:00 [facility] Respitory Rate 2020-07-20 19:53:00 Mem[facility] al [place] Height 2020-07-20 19:53:00 160.02 cm [facility] [place] Weight 2020-07-20 19:53:00 [facility] [place] BMI Calculated 2020-07-20 19:53:00 [facility] al [place] Systolic (mm Hg) 2020-05-26 20:30:00 Anthony rial [place] Diastolic (mm Hg) 2020-05-26 20:30:00 Mem orial [place] Systolic (mm Hg) 2020-05-26 20:00:00 Anthony rial [place] Diastolic (mm Hg) 2020-05-26 20:00:00 Mem orial [place] Respitory Rate 2020-05-26 19:45:00 [facility] al [place] Systolic (mm Hg) 2020-05-26 19:45:00 Anthony rial [place] Diastolic (mm Hg) 2020-05-26 19:45:00 Mem orial [place] Respitory Rate 2020-05-26 19:30:00 [facility] [place] Respitory Rate 2020-05-26 19:15:00 [facility] [place] Height 2020-05-26 15:59:00 160.02 cm [facility] [place] Weight 2020-05-26 15:59:00 [facility] [place] BMI Calculated 2020-05-26 15:59:00 [facility] [place] Height 2020-05-25 21:05:00 160.02 cm [facility] [place] Weight 2020-05-25 21:05:00 [facility] [place] BMI Calculated 2020-05-25 21:05:00 [facility] [place] Respitory Rate 2020-05-17 21:00:00 [facility] [place] Systolic (mm Hg) 2020-05-17 21:00:00 Anthony rial [place] Diastolic (mm Hg) 2020-05-17 21:00:00 Mem orial [place] Respitory Rate 2020-05-17 20:00:00 [facility] [place] Systolic (mm Hg) 2020-05-17 20:00:00 Anthony rial [place] Diastolic (mm Hg) 2020-05-17 20:00:00 Mem orial [place] Respitory Rate 2020-05-17 19:45:00 [facility] al [place] Systolic (mm Hg) 2020-05-17 19:45:00 Anthony rial [place] Diastolic (mm Hg) 2020-05-17 19:45:00 Mem orial [place] Height 2020-05-17 16:00:00 160.02 cm [facility] [place] Weight 2020-05-17 16:00:00 [facility] [place] BMI Calculated 2020-05-17 16:00:00 Mem[facility] al [place] Temperature Oral (F) 2020-04-08 21:41:00 97.9 F [facility] [place] Systolic (mm Hg) 2020-04-08 21:41:00 Anthony rial [place] Diastolic (mm Hg) 2020-04-08 21:41:00 Mem orial [place] Respitory Rate 2020-04-08 16:00:00 [facility] al [place] Systolic (mm Hg) 2020-04-08 16:00:00 Anthony rial [place] Diastolic (mm Hg) 2020-04-08 16:00:00 Mem orial [place] Temperature Oral (F) 2020-04-08 16:00:00 98.0 F [facility] [place] Respitory Rate 2020-04-08 15:45:00 [facility] al [place] Systolic (mm Hg) 2020-04-08 15:45:00 Anthony rial [place] Diastolic (mm Hg) 2020-04-08 15:45:00 Mem orial [place] Respitory Rate 2020-04-08 15:30:00 Mem[facility] al [place] Temperature Oral (F) 2020-04-08 12:30:00 98.4 F [facility] [place] Heart Rate 2020-04-08 04:31:00 [facility] [place] Heart Rate 2020-04-07 23:22:00 [facility] [place] Heart Rate 2020-04-06 12:22:00 [facility] [place] Height 2020-04-06 02:48:00 170.18 cm [facility] [place] Weight 2020-04-06 02:48:00 [facility] [place] BMI Calculated 2020-04-06 02:48:00 [facility] [place] Height 2020-04-05 23:14:00 170.18 cm [facility] [place] BMI Calculated 2020-04-05 23:14:00 [facility] [place] Weight 2020-04-05 23:14:00 [facility] [place] Systolic (mm Hg) 2019-03-10 17:45:00 Anthony rial [place] Diastolic (mm Hg) 2019-03-10 17:45:00 Mem orial [place] Systolic (mm Hg) 2019-03-10 17:30:00 Anthony rial [place] Diastolic (mm Hg) 2019-03-10 17:30:00 Mem orial [place] Heart Rate 2019-03-10 17:07:00 [facility] [place] Respitory Rate 2019-03-10 17:07:00 Mem[facility] al [place] Systolic (mm Hg) 2019-03-10 17:07:00 Anthony rial [place] Diastolic (mm Hg) 2019-03-10 17:07:00 Mem orial [place] Heart Rate 2019-03-10 16:15:00 [facility] [place] Respitory Rate 2019-03-10 15:30:00 [facility] al [place] Heart Rate 2019-03-10 15:30:00 [facility] [place] Heart Rate 2019-01-18 16:07:00 [facility] [place] Temperature Oral (F) 2019-01-18 16:07:00 98.2 F [facility] [place] Respitory Rate 2019-01-18 16:07:00 [facility] al [place] Systolic (mm Hg) 2019-01-18 16:07:00 Anthony rial [place] Diastolic (mm Hg) 2019-01-18 16:07:00 Mem orial [place] Respitory Rate 2019-01-18 14:03:00 [facility] al [place] Systolic (mm Hg) 2019-01-18 12:32:00 Anthony rial [place] Diastolic (mm Hg) 2019-01-18 12:32:00 Mem orial [place] Temperature Oral (F) 2019-01-18 12:32:00 98.2 F [facility] [place] Heart Rate 2019-01-18 12:32:00 [facility] [place] Respitory Rate 2019-01-18 12:32:00 Mem[facility] al [place] Temperature Oral (F) 2019-01-18 08:54:00 98.4 F [facility] [place] Heart Rate 2019-01-18 08:54:00 [facility] [place] Systolic (mm Hg) 2019-01-18 08:54:00 Anthony rial [place] Diastolic (mm Hg) 2019-01-18 08:54:00 Mem orial [place] BMI Calculated 2019-01-16 13:43:00 [facility] al [place] Weight 2019-01-16 13:43:00 [facility] [place] Height 2019-01-16 13:43:00 160.02 cm [facility] [place] Weight 2019-01-15 17:57:00 [facility] [place] BMI Calculated 2019-01-15 17:57:00 [facility] al [place] Height 2019-01-15 17:57:00 162.56 cm [facility] [place] Temperature Oral (F) 2012-05-19 16:43:00 96.3 F [facility] [place] Heart Rate 2012-05-19 16:43:00 [facility] [place] Respitory Rate 2012-05-19 16:43:00 Mem[facility] al [place] Systolic (mm Hg) 2012-05-19 16:43:00 Anthony rial [place] Diastolic (mm Hg) 2012-05-19 16:43:00 Mem orial [place] Weight 2012-05-19 16:43:00 [facility] [place] Height 2012-05-19 16:43:00 160.02 cm [facility] [place] Temperature Oral (F) 2012-01-28 14:02:00 97.8 F [facility] [place] Systolic (mm Hg) 2012-01-28 14:02:00 Anthony rial [place] Heart Rate 2012-01-28 14:02:00 [facility] [place] Respitory Rate 2012-01-28 14:02:00 Mem[facility] al [place] Diastolic (mm Hg) 2012-01-28 14:02:00 Mem orial [place] Weight 2012-01-28 14:02:00 [facility] [place] Height 2012-01-28 14:02:00 160.02 cm [facility] [place] Respitory Rate 2012-01-10 14:26:00 Mem[facility] al [place] Heart Rate 2012-01-10 14:26:00 [facility] [place] Temperature Oral (F) 2012-01-10 14:26:00 98.3 F [facility] [place] Diastolic (mm Hg) 2012-01-10 14:26:00 Mem orial [place] Systolic (mm Hg) 2012-01-10 14:26:00 Anthony rial [place] Weight 2012-01-10 14:26:00 [facility] [place] Height 2012-01-10 14:26:00 160.02 cm [facility] [place] Procedures Procedure Date / Time Performed Performing Clinician Sourjean e Colectomy [facility] [place] Thyroidectomy [facility] [place] Total hysterectomy [facility] Encounters Start End Encounter Admission Attending Care Care Encounter Source Date/Time Date/Time Type Type Clinicians Facility Department ID 2019-08-31 Outpatient [facility] [address] [facility] 09:50:05 2020-07-20 2020-07-20 Outpatient ZITA Zheng [id number] 13:30:00 23:59:59 Paul 00 Patrice 2020-06-10 2020-06-10 Orders Doctor KADIE [id number] 00:00:00 00:00:00 Only Unassigned, ANNITA [id number] Brandermill [facility] [id number] 2020-05-26 2020-05-26 Outpatient Ti, MHSE MHSE [id number] 07:45:00 14:35:00 Blaine Oseas 2020-05-26 2020-05-26 Outpatient Ti, MHSE MHSE [id number] 07:45:00 14:35:00 Blaine Oseas 2020-05-26 2020-05-26 Outpatient MHSE MHSE [id number] [facility] 07:45:00 07:45:[facility] 2020-05-17 2020-05-17 Outpatient Ti, MHSE MHSE [id number] 08:24:00 15:55:00 Blaine Oseas 2020-05-17 2020-05-17 Outpatient Ti, MHSE MHSE [id number] 08:24:00 15:55:00 Blaine Oseas 2020-05-17 2020-05-17 Outpatient MHSE MHSE [id number] MH 08:24:00 08:24:00 [facility] 2020-04-05 2020-04-08 Outpatient Srinivas Cerrato MHSE MHSE [id number] 18:08:39 17:20:00 Thalakulath 01 2020-04-05 2020-04-08 Outpatient Srinivas Cerrato MHSE MHSE [id number] 18:08:39 17:20:00 Thalakulath 01 u 2020-04-06 2020-04-05 Inpatient E MHSE MED [id number] MH 12:24:00 20:31:[address] [facility] 2019-03-10 2019-03-10 Outpatient Ti, MHSE MHSE [id number] 10:07:00 12:53:00 Blaine Farooq 2019-03-10 2019-03-10 Outpatient MHSE MHSE [id number] MH 10:07:00 10:07:[address] [facility] [address] [facility] 2019-01-16 2019-01-18 Outpatient Ti, MHSE MHSE [id number] 13:29:00 15:39:00 Blaine Farooq 2019-01-16 2019-01-16 Outpatient MHSE MHSE [id number] 13:29:00 13:29:00 [facility] Results Test Description Test Time Test Comments Results Result Sour e Comments BLOOD BANK RESULTS 2020-05-26 Negative Memori al 15:09:00 (05/26/20 9:09 [place] AM) CHEM PANEL 2020-05-26 84 [facility] 15:09:00 [place] CHEM PANEL 2020-05-26 20 [facility] 15:09:00 [place] CHEM PANEL 2020-05-26 4.97 [facility] 15:09:00 [place] CHEM PANEL 2020-05-26 138 [facility] 15:09:00 [place] CHEM PANEL 2020-05-26 3.6 [facility] 15:09:00 [place] CHEM PANEL 2020-05-26 107 [facility] 15:09:00 [place] CHEM PANEL 2020-05-26 24 [facility] 15:09:00 [place] CHEM PANEL 2020-05-26 9.7 [facility] 15:09:00 [place] CHEM PANEL 2020-05-26 10.6 [facility] 15:09:00 [place] CHEM PANEL 2020-05-26 10 [facility] 15:09:00 [place] IMMUNOLOGY 2020-05-26 Not Detected [facility] 13:47:00 (05/26/20 7:47 [place] AM) BLOOD BANK RESULTS 2020-05-17 Negative Memori al 15:31:00 (05/17/20 9:31 [place] AM) CHEM PANEL 2020-05-17 91 [facility] 15:31:00 [place] CHEM PANEL 2020-05-17 29 [facility] 15:31:00 [place] CHEM PANEL 2020-05-17 5.79 [facility] 15:31:00 [place] CHEM PANEL 2020-05-17 141 [facility] 15:31:00 [place] CHEM PANEL 2020-05-17 3.9 [facility] 15:31:00 [place] CHEM PANEL 2020-05-17 108 [facility] 15:31:00 [place] CHEM PANEL 2020-05-17 27 [facility] 15:31:00 [place] CHEM PANEL 2020-05-17 9.9 [facility] 15:31:00 [place] CHEM PANEL 2020-05-17 9.9 [facility] 15:31:00 [place] CHEM PANEL 2020-05-17 7 [facility] 15:31:00 [place] HEMATOLOGY 2020-05-17 5.2 [facility] 15:31:00 [place] HEMATOLOGY 2020-05-17 3.61 [facility] 15:31:00 [place] HEMATOLOGY 2020-05-17 10.4 [facility] 15:31:00 [place] HEMATOLOGY 2020-05-17 33.1 [facility] 15:31:00 [place] HEMATOLOGY 2020-05-17 91.8 [facility] 15:31:00 [place] HEMATOLOGY 2020-05-17 15:31:00 Test Item Value Reference Range Interpretation Comme nts MCH (test code = MCH) 28.8 pg 27.0-31.0 [facility] WqxivjvVEQIXJTRWK5387-50-48 15:31:0031.3[facility]ann[facility]OLOGY 2020-05-17 15:31:0015.9[facility] LkiuuzvBHNCKZLACC6234-62-36 15:31:85685Clwnqkar XvuonyfSBPLCKHYKB8686-86-05 15:31:009.2[facility] IriukrxWHAHBYSYNV9954-31-77 15:31:00 Test Item Value Reference Range Interpretation Comments PT (test code = PT) 14.8 s 12.0-14.7 [facility] TrhzcupISXVVUXMFI3993-35-59 15:31:00 Test Item Value Reference Range Interpretation Comments INR (test code = INR) 1.15 1 0.85-1.17 [facility] QanctmcCYKWABKFKO1771-40-17 15:31:00 Test Item Value Reference Range Interpretation Comments PTT (test code = PTT) 29.5 s 22.9-35.8 [facility] ZwaypigFOJYFXHVLL8167-11-07 15:31:0074.6[facility]annHEMATOLOGY 2020-05-17 15:31:0011.0[facility] VvwwonxYGGNRZMZVO7756-16-82 15:31:0011.0[facility] YezaqcdLLSNWLNGJM5150-47-84 15:31:002.6[facility] LtaktjlTZKMEKUTTK1722-33-57 15:31:000.8[facility] YduemsaHZNHVEJSRU4540-68-02 15:31:003.9[facility] [place] EVYWALFCTU6559-41-66 15:31:000.6[facility] SccdzlvQIFDNYSASX4481-77-25 15:31:000.6 [facility] KjepjqfGOOMYLLKAW0595-54-08 15:31:000.1[facility] HermannIMMUNOLOGY 2020-05-17 14:47:00Not Detected (05/17/20 8:47 AM)[facility]annCHEM PANEL 2020-04-08 10:29:0091[facility] HermannCHEM ICYYB1634-40-70 10:29:0044[facility]annCHEM GVJWJ7911-50-33 10:29:008.12[facility]annCHEM XDHCB6919-12-48 10:29:11441Rxcbtqto HermannCHEM PABMH9743-52-69 10:29:004.2[facility] HermannCHEM XOLCK4802-90-27 10:29:46186Iqoufoxm HermannCHEM QGALB9488-17-41 10:29:0024 [facility]annCHEM XLUSN4656-57-21 10:29:008.9[facility] HermannCHEM PANEL 2020-04-08 10:29:0012.2[facility]annCHEM IQBPO2146-63-25 10:29:005[facility] WbhphbrNEQQDPSBST1171-95-94 10:29:00 Test Item Value Reference Range Interpretation Comments PT (test code = PT) 15.6 s 12.0-14.7 [facility] BpaprtuTFPMHOANPJ8134-53-92 10:29:00 Test Item Value Reference Range Interpretation Comments INR (test code = INR) 1.23 1 0.85-1.17 [facility] FtcquqqLQEMSCMLIO8828-32-88 10:29:00 Test Item Value Reference Range Interpretation Comments PTT (test code = PTT) 34.9 s 22.9-35.8 [facility] CwexnqlWVFUIKNCHA4880-08-58 10:29:005.0[facility]annHEMATOLOGY 2020-04-08 10:29:003.39[facility] EohonurMHVCKVBHZP5668-59-61 10:29:009.8[facility] HyolnrwPRGZTIXSIU7674-29-76 10:29:0030.6[facility] GnldyodGBLVGMLOYY2670-16-68 10:29:0090.2[facility] KpwmeilDACJMDBHEP0341-85-57 10:29:00 Test Item Value Reference Range Interpretation Comments MCH (test code = MCH) 29.0 pg 27.0-31.0 [facility] GurxalcNGPTKWFSPL5257-96-66 10:29:0032.2[facility]annHEMATOLOGY 2020-04-08 10:29:0015.4[facility] XybcyswXOGFCDRKLY2667-51-11 10:29:17072Yyoekauj ShmabwyLBMOFZZEJT9314-12-96 10:29:009.8[facility] FatghqnFBRKVAHOIE0673-06-96 10:29:0062.0[facility] FmcgluxPTFGHIAAZW7388-33-87 10:29:0012.7[facility] [place] GIYALXQQTD1968-22-11 10:29:0019.5[facility] HeyokglUQGKWPMZHO2098-46-64 10:29:00 5.1[facility] CckdxuxNZZHKVTSIQ8219-31-21 10:29:000.7[facility] HermannHEMATOLOGY 2020-04-08 10:29:003.1[facility] XjoyegeALNCGMEXKA5516-45-81 10:29:000.6[facility] YsciihlYPQVYKDWQT9789-48-03 10:29:001.0[facility] MyfyjthGKZPFAYAAD7716-68-39 10:29:000.3[facility] YkyftnxQVSCMEBFWD2682-96-64 10:29:00Negative *NA*(04/08/20 5:29 AM)[facility]annCHEM NKTNW2067-71-51 09:49:85174Tguvlmex HermannCHEM KVLRC8165-47-99 09:49:0041[facility]annCHE[facility] QDWIP0681-89-69 09:49:007.28 [facility]annCHE[facility] CDZOH3300-03-24 09:49:36807Lujevjah HermannCHEM PANEL 2020-04-07 09:49:004.2[facility]annCHEM KDNXJ2391-38-46 09:49:91874Ehsxvygj HermannCHEM DEYSS7630-16-50 09:49:0024[facility]annCHEM TMDXN3895-41-50 09:49:008.8[facility]annCHEM PCDCG5131-89-84 09:49:0013.2[facility]annCHEM NVKPT4774-27-03 09:49:006[facility] AorlesdFXFGKEARSD6231-32-65 09:49:0079.6 [facility] KxenksbNEAJPWNMTA5207-70-52 09:49:004.6[facility]annHEMATOLOGY 2020-04-07 09:49:0013.3[facility] JdeajfxBLFPZESWSR7450-60-16 09:49:001.9[facility] WgesubiVELUFNUCAX2849-46-89 09:49:000.6[facility] KnspyieXVJGKSKNBE8439-96-18 09:49:004.9[facility] FuwtzaeDHWVVGSQNE1791-46-04 09:49:000.3[facility] Talon ECEMIGSKNZ4059-85-45 09:49:000.8[facility] WqmhnbtFHUYGIBBOB2251-40-70 09:49:000.1 [facility] TdkgjeoOWLSFCUJQG2539-51-56 09:49:006.1[facility]annHEMATOLOGY 2020-04-07 09:49:003.59[facility] NjwwzfjKQQTNYUJRC2526-45-27 09:49:0010.4[facility] TesmnbgBKWHFTQFTM9983-16-09 09:49:0032.5[facility] GpuzglpMIZYGLZSQQ3000-34-83 09:49:0090.7[facility] BjstxwwXKBRHPUEXL9743-71-38 09:49:00 Test Item Value Reference Range Interpretation Comments MCH (test code = MCH) 29.0 pg 27.0-31.0 [facility] WykzqtwNNDJUQHUPZ3241-22-77 09:49:0031.9[facility]annHEMATOLOGY 2020-04-07 09:49:0015.4[facility] XvqndkhAKNGKUPOXV8222-35-91 09:49:43443Rjguwhtn YoflbzbLYGJNSIDAM1408-68-19 09:49:009.5[facility]annBLOOD BANK RESULTS 2020-04-06 20:57:00Product available 4(04/06/20 3:57 PM)[facility] OTTDXPP4439-09-22 16:13:00Negative (04/06/20 11:13 AM)[facility]annCHEM YSNDZ9403-54-56 09:45:0083[facility]annCHEM DMDHU0705-44-37 09:45:0036 [facility]annCHE[facility] WTZRI0770-73-11 09:45:006.40[facility]annCHEM PANEL 2020-04-06 09:45:99988Wldfdtdd HermannCHEM VTJDM9375-80-34 09:45:003.6[facility]annCHEM ECHYP2291-46-10 09:45:82950Fdxtfknb HermannCHEM PMHUJ6662-73-90 09:45:0024[facility]annCHEM CWOSR0444-94-22 09:45:009.1[facility]annCHEM JEJNB5523-71-07 09:45:0012.6[facility]annCHEM HXZCK4862-43-57 09:45:007 [facility] ZycxquuMJSHZDKCLAHDM1498-97-16 09:45:00Negative *NA*(04/06/20 4:45 AM) [facility] KsldmgdPWZRBJTXOE9960-71-63 09:45:004.5[facility]MAT[facility] 2020-04-06 09:45:003.73[facility] NiqlbtyRLXMOEODFK6892-06-27 09:45:0010.7[facility] ZxookyqVCXYGYAKIY6745-19-30 09:45:0033.6[facility] DuugnpqLORTNIEHZG3111-21-63 09:45:0090.1[facility] GsxumacKVGETFBGTF7531-32-90 09:45:00 Test Item Value Reference Range Interpretation Comments MCH (test code = MCH) 28.6 pg 27.0-31.0 [facility] CaymxvlESNOPKNBFC3840-36-02 09:45:0031.8[facility]annHEMATOLOGY 2020-04-06 09:45:0015.5[facility] PgfqkoiJVXFMVCYJK2123-91-50 09:45:11882Vdmacvql IawjrzcSAMWICOCHG9829-89-86 09:45:009.9[facility] WyvopfbHUSPJMYTGZ3478-68-58 09:45:0062.8[facility] XsdfzxvSKKZONJYUW9320-62-74 09:45:0017.1[facility] LPCFYBRATQ4987-47-17 09:45:0015.2[facility] KzqdsleFEAOUUKTQM8338-71-62 09:45:00 4.1[facility] StwnwyyWWGYGQOEGS6616-85-53 09:45:000.8[facility]annHE[facility]OLOGY 2020-04-06 09:45:002.9[facility] YrejxhgKZCFUSIXCG4316-00-61 09:45:000.8[facility] HaswnadGXGUYSDSFW0599-77-22 09:45:000.7[facility] UtxidlyTSJIQZUBGA8484-36-07 09:45:000.2[facility] FmjeszfMLMTBZNNBM6005-26-31 02:13:00Not Detected (04/05/20 9:13 PM)[facility]annCHEM CFYQN7455-87-12 23:26:007.7[facility]annCHEM CCVLJ1891-00-81 23:26:003.9[facility]annCHE[facility] OSFVD1602-04-90 23:26:0040 [facility] JTTAK3913-12-93 23:26:0038[facility]annCHEM PANEL 2020-04-05 23:26:0092[facility]annCHE[facility] VVGBG4632-85-66 23:26:001.2[facility]annCHE[facility] UXCOJ9147-52-61 23:26:00 Test Item Value Reference Range Interpretation Comments B/C Ratio (test code = B/C Ratio) 5 1 6-25 [facility] HermannCHEM XEQXF9750-67-24 23:26:003.8[facility]annCHEM PANEL 2020-04-05 23:26:00 Test Item Value Reference Range Interpretation Comments A/G Ratio (test code = A/G Ratio) 1.0 1 0.7-1.6 [facility]kinWvklchxKYYIHZQURF8366-49-60 23:26:00 Test Item Value Reference Range Interpretation Comments PT (test code = PT) 15.2 s 12.0-14.7 [facility] VikofjhIBEDNMABVM6136-37-22 23:26:00 Test Item Value Reference Range Interpretation Comments INR (test code = INR) 1.19 1 0.85-1.17 [facility]kinWdsmduqSDCMBAVEIL1220-59-30 23:26:00 Test Item Value Reference Range Interpretation Comments PTT (test code = PTT) 23.3 s 22.9-35.8 [facility]CHE[facility] VWLAK7618-02-40 10:53:0013[facility]annCHEM PANEL 2019-01-18 10:53:68882Rwrolfen HermannCHEM NQDWT0887-68-75 10:53:003.85[facility]annCHE[facility] PCVJT0559-22-42 10:53:85247Brnddbob HermannCHEM YNJDB4728-48-69 10:53:0019[facility]annCHEM OHNLL6408-02-41 10:53:008.6[facility]annCHE[facility] LZWTD2045-37-34 10:53:47413Iziwvjyt HermannCHEM NBBWV1873-20-55 10:53:0029 [facility]ann[facility] SCOOW4748-91-72 10:53:003.7[facility]annCHEM PANEL 2019-01-18 10:53:008.7[facility] LqyaquuGHGGKCZIGJ9101-68-33 10:53:0064.4[facility] RiweedpAYDPSIEZQR4443-09-98 10:53:003.7[facility] KcpxddeGHJLMSPONP2211-69-08 10:53:0021.0[facility] GhkzyhvMSRMJKRWMR6911-65-96 10:53:000.7[facility] KQHQNZXFFL8684-71-27 10:53:0010.2[facility] RrwikgkYMJPPPTICS7024-13-62 10:53:00 4.5[facility] EuhvuslPILVQFMGSL1041-73-56 10:53:000.7[facility]annHEMATOLOGY 2019-01-18 10:53:000.3[facility] FqtoaudWWEYKEKRSP1402-51-49 10:53:001.5[facility] LvtajugCXOXXEQTMQ6404-90-35 10:53:007.0[facility] HhfeifoGKQWDZMEYV6833-52-28 10:53:002.62[facility] LvwbsmeSTQDMXDNIW5355-58-99 10:53:007.6[facility] JIMSPIFVDJ0271-30-99 10:53:0022.6[facility] GpzxaheXFDYYHLPKZ6252-06-75 10:53:00 86.4[facility] MapcbamUNMHWWUNYN6256-39-21 10:53:0033.6[facility]annHEMATOLOGY 2019-01-18 10:53:00 Test Item Value Reference Range Interpretation Comments MCH (test code = MCH) 29.0 pg 27.0-31.0 [facility] BfjprfbBMKSLGNFJE7971-95-66 10:53:0015.8[facility]annHEMATOLOGY 2019-01-18 10:53:009.7[facility] WctjjxgAXPIGLKURW4143-78-16 10:53:0098[facility]BL[facility] B[facility] ARTFBDA7718-67-62 11:45:00Product available 4(01/17/19 6:45 AM) [facility]annCHE[facility] MTRFA6725-84-51 10:38:0010[facility]annCHEM PANEL 2019-01-17 10:38:0034[facility]annCHEM ADYHX8567-97-17 10:38:005.10[facility]annCHEM UXNFB6342-95-13 10:38:23990Lppcukxu HermannCHEM EXYEO6629-87-37 10:38:42165Sicbgvfm HermannCHEM BNAAP6993-84-53 10:38:005.2[facility]annCHEM VLLCZ5491-28-97 10:38:66560Mwuyynwb HermannCHEM KCKZJ2396-25-00 10:38:0025 [facility]annCHE[facility] LBHSJ2607-80-81 10:38:008.5[facility]annCHEM PANEL 2019-01-17 10:38:0015.2[facility] RgouotcTCEUBHLUBT4007-95-03 10:38:000.8[facility] YhhmvaaTFOETBVDUL2972-38-38 10:38:0070.0[facility] LfmesdeWRZLXQVKQP4047-16-83 10:38:008.2[facility] DxyaszjKICVNVPMJH1431-40-70 10:38:0019.0[facility] XBCKQSHBCW7873-70-56 10:38:002.0[facility] CkuaqyiLUQWAGFJPB7260-14-02 10:38:004.3 [facility] ScqkcbfRJTFESJTEP9039-62-21 10:38:000.5[facility]annHEMATOLOGY 2019-01-17 10:38:001.2[facility] JmjvhyjPXCIKVYYSO1729-99-69 10:38:000.1[facility] AhgsbqjTVHWSFSNVS4085-59-03 10:38:0021.1[facility] BecztahJQIUVQGFAI5213-30-02 10:38:0087.7[facility] SjghgdkWVHIVCPODH3523-39-56 10:38:006.8[facility] RHDIYJOWJX4531-21-57 10:38:00 Test Item Value Reference Range Interpretation Comments MCH (test code = MCH) 28.4 pg 27.0-31.0 [facility] FtgcoyjVPOEYILBKD0261-53-76 10:38:0016.6[facility]annHEMATOLOGY 2019-01-17 10:38:24277Lcasxeab KdxdrtvUJTRDTGFSM0663-28-01 10:38:009.7[facility] RirbbmpJEBYHJOTMM3283-36-57 10:38:0032.4[facility] NykippgTWKHOTFURB7772-18-73 10:38:006.1[facility] WdcuwhrCPIYVNAMBW3263-77-46 10:38:002.41[facility] MSPTUAWGZO5807-03-53 19:50:00Negative *NA*(01/16/19 2:50 PM)[facility] RBOOTQXBYZ5570-31-41 19:50:00<3.1[facility] TtbndnlWNRCPXVAQJ2739-80-73 19:50:00Negative *NA*(01/16/19 2:50 PM)[facility] EszinfwOPQXLEHJZW7306-42-70 19:50:00Negative *NA*(01/16/19 2:50 PM)[facility]annCHEM OSKTV7026-79-38 19:08:568[facility]annCHEM PLKGW4833-69-20 19:08:563.3[facility]annCHEM KPUMQ2517-43-95 19:08:73129Kacpwhcm HermannCHEM PFNRG9348-40-60 19:08:5623 [facility]annCHE[facility] YFMAT5563-60-52 19:08:5610.1[facility]annCHEM PANEL 2019-01-16 19:08:5612.3[facility]annCHEM MSDEB0971-07-33 19:08:78843Srtxemzy HermannCHEM GUBBK4842-39-41 19:08:5647[facility]annCHEM OZFJA6746-54-95 19:08:565.[facility]annCHEM RIEDY8912-51-09 19:08:43111Uqiiievc [place] PFBIAIQKCD9415-24-16 19:08:5626.2[facility] YmyauopJINXLEKHCJ7607-24-26 19:08:56 8.3[facility] EyhdurdGUWYZSAELO2284-18-04 19:08:562.98[facility]annHEMATOLOGY 2019-01-16 19:08:564.6[facility] OtdnxtuTXYSRVFXEB7729-76-94 19:08:5616.7[facility] AkibmnoAGQXZKOHKP3911-14-35 19:08:5631.8[facility] CvilchvZIBJSLVRFL9324-62-27 19:08:56 Test Item Value Reference Range Interpretation Comments MCH (test code = MCH) 28.0 pg 27.0-31.0 [facility] XtttnveMTZXKZYMUU2290-92-24 19:08:5687.9[facility]annHEMATOLOGY 2019-01-16 19:08:569.1[facility] KmyjstgVODATMGTCT5884-58-03 19:08:58073Mqxhhsfg OdljlpzJJAWFIEDGL5211-94-23 19:08:560.1[facility] HwjsimtJHKJTLJGRP6969-60-22 19:08:560.6[facility] DfdhqeqIGUPEHTXOF0991-72-03 19:08:560.9[facility] ACVKKWEWUW7907-54-87 19:08:5619.1[facility] KcydkzsBWMMKYYLXU4465-26-26 19:08:56 65.9[facility] TaasjdbKGNVPJLIJH5364-41-25 19:08:562.3[facility]annHEMATOLOGY 2019-01-16 19:08:5612.1[facility] MbkmukeFLKAVNVOAB1056-55-40 19:08:563.1[facility] MxjqkwkSLQMYMHHXP1223-10-96 19:08:560.6[facility]annBLOOD BANK RESULTS 2019-01-16 14:35:00Negative (01/16/19 9:35 AM)[facility] HermannHEMATOLOGY 2019-01-16 14:35:00 Test Item Value Reference Range Interpretation Comments PT (test code = PT) 14.1 s 12.0-14.7 [facility] FlexupmCFTOKWFSJG9616-53-68 14:35:00 Test Item Value Reference Range Interpretation Comments INR (test code = INR) 1.11 1 0.85-1.17 [facility]HLYAWJNSGV2068-57-58 14:35:00 Test Item Value Reference Range Interpretation Comments PTT (test code = PTT) 28.3 s 22.9-35.8 [facility]
--- OUTSIDE RECORDS SUMMARY | 2020-07-28 23:26 | XMS REPORT | Summary of Care ---
:1955 Author Organization [facility] - [facility] Address [address] [place] [address] Care Team Providers Name Role Phone MD Vaishnavi Primary Care Provider Encounter Details Date Type Department Care Team Description 06/10/2020 Orders Only [facility] Doctor Unassigned, No [address] [facility] Name [place] [phone] Allergies Active Allergy Reactions Severity Noted Date Comments Amlodipine Swelling 05/28/2016 documented as of this encounter (statuses as of 07/04/2020) Medications Medication Sig Dispensed Refills Start Date End Date Status cloniDINE (CATAPRES) 0.3 Take 0.3 mg by 0 Active mg tablet mouth 3 (three) times daily. hydralAZINE (APRESOLINE) Take 100 mg by 0 Active 50 mg tablet mouth every 8 (eight) hours. atorvastatin (LIPITOR) Take 40 mg by 0 Active 40 mg tablet mouth at bedtime. Ferrous Gluconate (IRON Take by mouth. 0 Active HIGH POTENCY) 240 mg (27 mg iron) tablet liothyronine (CYTOMEL) 5 Take 5 mcg by 0 Active mcg tablet mouth daily. levothyroxine Take 50 mcg by 0 A ctive (SYNTHROID) 50 mcg mouth every tablet morning. paricalcitol (ZEMPLAR) 1 Take 1 mcg by 0 Active mcg capsule mouth daily. allopurinol (ZYLOPRIM) Take 100 mg by 0 Active 100 mg tablet mouth daily. ASPIRIN (ASPIR-81 ORAL) Take by mouth. 0 Active traMADOL (ULTRAM) 50 mg Take 50 mg by 0 Active tablet mouth every 6 (six) hours as needed. furosemide (LASIX) 40 mg Take 40 mg by 0 Active tablet mouth as needed. Polyethylene Glycol 3350 Take 1 Packet by 7 Packet 0 05/29/20 16 Active (MIRALAX) 17 gram powder mouth daily. documented as of this encounter (statuses as of 07/04/2020) Active Problems Problem Noted Date Acute on chronic diastolic congestive heart failure ESRD (end stage renal disease) 12/27/2018 HTN (hypertension) 12/27/2018 Anemia 12/27/2018 Pulmonary hypertension 12/27/2018 Pneumonia 12/27/2018 Troponin I above reference range 12/27/2018 Hypoxia 12/23/2018 documented as of this encounter (statuses as of 07/04/2020) Social History Tobacco Use Types Packs/Day Years Used Date Never Smoker Alcohol Use Drinks/Week oz/Week Comments Not Currently Sex Assigned at Date Recorded Not on file documented as of this encounter Last Filed Vital Signs Not on filedocumented in this encounter Plan of Treatment Health Maintenance Due Date Last Done Comments HEPATITIS C (HCV) SCREEN 1955 Depression Screening 1966 DTaP,Tdap,and Td Vaccines (1 - Tdap) 1973 Breast Cancer Screening (MAMMOGRAM) 1994 Zoster Recombinant Vaccine (SHINGRIX) (1 of 2) 2004 Medicare Wellness Visit 09/11/2019 Osteoporosis Screening 09/11/2019 PNEUMOCOCCAL VACCINES 65+ (1 of 1 - PPSV23) 09/11/2019 INFLUENZA VACCINE (#1) 2020 documented as of this encounter Procedures Procedure Name Priority Date/Time Associated Diagnosis Comme nts AUTHORIZATION FOR RELEASE Routine 06/10/2020 12:01 AM OF [employer] documented in this encounter Results Not on filedocumented in this encounter Insurance Payer Benefit Plan / Subscriber ID Effective Phone Address T ype Group Dates [employer] [id number] [address] [place] [id number] [place] [address] documented as of this encounter
--- NOTE | 2020-07-29 00:09 | EDPHYS ---
Physician Documentation [facility] Name: Alma Rosa Corral Age: 64 yrs Sex: Female : 1955 Arrival Date: 07/28/2020 Time: 23:20 Bed 13 Private MD: LALO Physician Brayden Yoder HPI: 07/29 00:02 This 64 yrs old Black Female presents to ER via Wheelchair with complaints of trevor Palpitations. 00:02 The patient presents with a history of irregular heart beat, heart racing. Context: The trevor symptoms occur at rest. Onset: The symptoms/episode began/occurred just prior to arrival. Duration: The patient or guardian reports a single episode, that is still ongoing. Modifying factors: The symptoms are aggravated by nothing. The symptoms are alleviated by nothing. Associated signs and symptoms: The patient has no apparent associated signs or symptoms. Severity of symptoms: At their worst the symptoms were mild in the emergency department the symptoms are unchanged. The patient has experienced a previous episode. 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 - Social history:: Smoking status: Patient denies any tobacco usage or history of. - Family history:: not pertinent. ROS: 07/29 00:02 Constitutional: Negative for fever, chills, and weight loss, Eyes: Negative for injury, trevor pain, redness, and discharge, ENT: Negative for injury, pain, and discharge, Neck: Negative for injury, pain, and swelling, Respiratory: Negative for shortness of breath, cough, wheezing, and pleuritic chest pain, Back: Negative for injury and pain, : Negative for injury, bleeding, discharge, and swelling, MS/Extremity: Negative for injury and deformity, Skin: Negative for injury, rash, and discoloration, Neuro: Negative for headache, weakness, numbness, tingling, and seizure, Psych: Negative for depression, anxiety, suicide ideation, homicidal ideation, and hallucinations, Allergy/Immunology: Negative for hives, rash, and allergies, Endocrine: Negative for neck swelling, polydipsia, polyuria, polyphagia, and marked weight changes, Hematologic/Lymphatic: Negative for swollen nodes, abnormal bleeding, and unusual bruising. Cardiovascular: Positive for palpitations. Abdomen/GI: Positive for abdominal pain, abdominal cramps, abdominal distension. Exam: 00:02 Constitutional: This is a well developed, well nourished patient who is awake, alert, trevor and in no acute distress. Head/Face: Normocephalic, atraumatic. Eyes: Pupils equal round and reactive to light, extra-ocular motions intact. Lids and lashes normal. Conjunctiva and sclera are non-icteric and not injected. Cornea within normal limits. Periorbital areas with no swelling, redness, or edema. ENT: Nares patent. No nasal discharge, no septal abnormalities noted. Tympanic membranes are normal and external auditory canals are clear. Oropharynx with no redness, swelling, or masses, exudates, or evidence of obstruction, uvula midline. Mucous membranes moist. Neck: Trachea midline, no thyromegaly or masses palpated, and no cervical lymphadenopathy. Supple, full range of motion without nuchal rigidity, or vertebral point tenderness. No Meningismus. Chest/axilla: Normal chest wall appearance and motion. Nontender with no deformity. No lesions are appreciated. Respiratory: Lungs have equal breath sounds bilaterally, clear to auscultation and percussion. No rales, rhonchi or wheezes noted. No increased work of breathing, no retractions or nasal flaring. Abdomen/GI: Soft, non-tender, with normal bowel sounds. No distension or tympany. No guarding or rebound. No evidence of tenderness throughout. Back: No spinal tenderness. No costovertebral tenderness. Full range of motion. Female : Normal external genitalia. Skin: Warm, dry with normal turgor. Normal color with no rashes, no lesions, and no evidence of cellulitis. MS/ Extremity: Pulses equal, no cyanosis. Neurovascular intact. Full, normal range of motion. Neuro: Awake and alert, GCS 15, oriented to person, place, time, and situation. Cranial nerves II-XII grossly intact. Motor strength 5/5 in all extremities. Sensory grossly intact. Cerebellar exam normal. Normal gait. Psych: Awake, alert, with orientation to person, place and time. Behavior, mood, and affect are within normal limits. 00:02 Cardiovascular: Rate: tachycardic, Rhythm: regular, irregular, Pulses: Pulses are 4+ in bilateral radial, brachial, femoral, popliteal, posterior tibial and and dorsalis pedis arteries.. Heart sounds: murmur, systolic, grade 2 over 6, gallop, S3 noted, Edema: is not appreciated, JVD: is not appreciated, Dialysis shunt: in the left bicep, with palpable thrill, with auscultated bruit, with no erythema, with no edema, no bleeding noted 03:21 ECG was reviewed by the Attending Physician. trevor Vital Signs: 07/28 23:54 BP 132 / 88; Pulse 136; Resp 18; Pulse Ox 97% on R/A; sg 23:54 Weight 63.5 kg; sg 07/29 00:30 BP 141 / 101; Pulse 119; Resp 20; Pulse Ox 99% on R/A; ea 00:30 Pulse 120; ea 00:40 Pulse 98; ea 01:00 BP 156 / 76; Pulse 72; Resp 22; Pulse Ox 99% ; ea 02:45 BP 154 / 84; Pulse 74; Resp 18; Pulse Ox 100% on R/A; ea MDM: 07/28 23:39 Patient medically screened. trevor 07/29 00:06 SHAHBAZ Risk Score: 1 - Patient's age is greater or equal to 65, 1 - 3 or more CAD risk trevor factors, 1 - Known CAD, Total Score = 3. Differential diagnosis: arrythmia, dehydration. Data reviewed: vital signs, nurses notes, lab test result(s), EKG, radiologic studies, CT scan, plain films. Data interpreted: phototypesetting equipment monitor: rate is 136 beats/min, rhythm is atrial fibrillation. Test interpretation: by ED physician or midlevel provider: ECG, plain radiologic studies. Counseling: I had a detailed discussion with the patient and/or guardian regarding: the historical points, exam findings, and any diagnostic results supporting the discharge/admit diagnosis, lab results, radiology results, the need for outpatient follow up. 07/29 00:02 Order name: Basic Metabolic Panel; Complete Time: 03:19 trevor 07/29 00:02 Order name: CBC with Diff; Complete Time: 00:53 trevor 07/29 00:02 Order name: LFT's; Complete Time: 03:19 trevor 07/29 00:02 Order name: Magnesium; Complete Time: 03:19 trevor 07/29 00:02 Order name: NT PRO-BNP; Complete Time: 03:19 trevor 07/29 00:02 Order name: PT-INR; Complete Time: 00:53 trevor 07/29 00:02 Order name: Troponin (emerg Dept Use Only); Complete Time: 03:19 trevor 07/29 00:02 Order name: Lipase; Complete Time: 03:19 trevor 07/29 00:02 Order name: TSH; Complete Time: 03:19 trevor 07/29 01:48 Order name: T4 Free; Complete Time: 03:19 EDMS 07/29 03:03 Order name: SARS-COV-2 RT PCR; Complete Time: 03:19 EDMS 07/29 08:51 Order name: Basic Metabolic Panel EDMS 07/29 08:51 Order name: Troponin I EDMS 07/29 00:02 Order name: XRAY Chest (1 view) [facility] 07/29 00:57 Order name: Abdomen EDMS 07/29 08:51 Order name: Lipid Profile EDMS 07/29 08:51 Order name: Magnesium EDMS 07/29 09:03 Order name: CKMB Creatine Kinase MB EDMS 07/29 09:03 Order name: Thyroid Stimulating Hormone EDMS 07/29 09:03 Order name: Vitamin B12 Level EDMS 07/29 09:35 Order name: Sedimentation Rate, Westergren EDMS 07/28 23:54 Order name: EKG; Complete Time: 23:54 07/29 00:02 Order name: Cardiac monitoring; Complete Time: 01:28 trevor 07/29 00:02 Order name: EKG - Nurse/Tech; Complete Time: 00:03 trevor 07/29 00:02 Order name: IV Saline Lock; Complete Time: 02:01 trevor 07/29 00:02 Order name: Labs collected and sent; Complete Time: 01:28 trevor 07/29 00:02 Order name: O2 Per Protocol; Complete Time: 00:03 trevor 07/29 00:02 Order name: O2 Sat Monitoring; Complete Time: 00:04 trevor 07/29 00:53 Order name: EKG; Complete Time: 00:54 [facility] 07/29 00:53 Order name: EKG - Nurse/Tech; Complete Time: 01:28 trevor 07/29 03:23 Order name: EKG - Nurse/Tech; Complete Time: 04:36 trevor 07/29 03:23 Order name: EKG; Complete Time: 03:23 [facility] EC:21 Rate is 160 beats/min. Rhythm is irregular. QRS Decker is Normal. AL interval is normal. trevor QRS interval is normal. QT interval is normal. No Q waves. T waves are Normal. No ST changes noted. Clinical impression: Atrial Fibrillation and No evidence of ischemia. Interpreted by me. Reviewed by me. Administered Medications: 00:21 Drug: Heparin (NM-Bolus No thrombolytic) - HEParin 60 units/kg {Co-Signature: junior woods (Clayton Boston RN).} Route: IVP; Site: right forearm; 03:24 Follow up: Response: No adverse reaction ea 00:21 Drug: Heparin (NM Drip) 12 units/kg/hr - (HEParin 14498 units, D5W 500 ml) ea {Co-Signature: junior (Clayton Boston RN).} Route: IV; Rate: calculated rate; Site: right forearm; 03:24 Follow up: IV Status: Infusion continued upon admission ea 00:28 Drug: Lopressor 2.5 mg Route: IVP; Site: right forearm; ea 00:30 Follow up: Pulse 120 bpm; Response: No adverse reaction ea 00:36 Drug: Lopressor 2.5 mg Route: IVP; Site: right forearm; ea 00:40 Follow up: Pulse 98 bpm; Response: No adverse reaction ea 00:36 Drug: Pepcid 20 mg Route: IVP; Site: right forearm; ea 03:02 Follow up: Response: No adverse reaction ea 00:43 Drug: Lopressor (metoprolol TARTRATE) 50 mg Route: PO; ea 03:02 Follow up: Response: No adverse reaction ea 00:53 Not Given (Duplicate Order): Digoxin 0.5 mg IVP once trevor 03:00 Drug: Aspirin 81 mg Route: PO; ea 03:23 Follow up: Response: No adverse reaction ea 03:00 Drug: Potassium Chloride 20 mEq Route: IV; Rate: per protocol; Site: right forearm; ea 03:23 Follow up: IV Status: Infusion continued upon admission ea 03:01 Drug: Magnesium Sulfate 1 grams Route: IVPB; Infused Over: 1 hrs; Site: right forearm; ea 03:23 Follow up: IV Status: Infusion continued upon admission ea Disposition: 07/29/20 00:08 Hospitalization ordered by Nikos Prado for Inpatient Admission. Preliminary diagnosis are Atrial fibrillation and flutter, Constipation, Other mechanical complication of intraperitoneal dialysis catheter - discomfort, Hypomagnesemia, Hypokalemia, Hydronephrosis with ureteral stricture, not elsewhere classified, Pleural effusion in conditions classified elsewhere, Cardiomegaly. - Bed requested for Telemetry/MedSurg (Inpatient). - Status is Inpatient Admission. bp - Condition is Fair. - Problem is new. - Symptoms have improved. Signatures: Dispatcher [employer] [facility] Nanette Gresham RN RN dw Gay, Steven RN RN Brayden Wei MD MD cha Garcia, Cindy RN JENNY cg Nettie Dukes RN Felice Bledsoe ea RN JENNY pacheco Corrections: (The following items were deleted from the chart) 00:57 00:06 Abdomen Pelvis W Con+CT.RAD.BRZ ordered. [facility] EDVT 01:29 00:08 Hospitalization Ordered by Nikos Prado MD for Inpatient Admission. Preliminary trevor diagnosis is Atrial fibrillation and flutter; Constipation; Other mechanical complication of intraperitoneal dialysis catheter - discomfort. Bed requested for Telemetry/MedSurg (Inpatient). Status is Inpatient Admission. Condition is Fair. Problem is new. Symptoms have improved. trevor 01:59 00:03 CORONAVIRUS+MR.LAB.BRZ ordered. [facility] EDVT 02:08 01:29 07/29/2020 00:08 Hospitalization Ordered by Nikos Prado MD for Inpatient cg Admission. Preliminary diagnosis is Atrial fibrillation and flutter; Constipation; Other mechanical complication of intraperitoneal dialysis catheter - discomfort; Hypomagnesemia; Hypokalemia. Bed requested for Telemetry/MedSurg (Inpatient). Status is Inpatient Admission. Condition is Fair. Problem is new. Symptoms have improved. trevor 03:21 02:08 07/29/2020 00:08 Hospitalization Ordered by Nikos Prado MD for Inpatient trevor Admission. Preliminary diagnosis is Atrial fibrillation and flutter; Constipation; Other mechanical complication of intraperitoneal dialysis catheter - discomfort; Hypomagnesemia; Hypokalemia. Bed requested for [facility] ER HOLD. Status is Inpatient Admission. Condition is Fair. Problem is new. Symptoms have improved. cg 15:20 03:21 07/29/2020 00:08 Hospitalization Ordered by Nikos Prado MD for Inpatient dw Admission. Preliminary diagnosis is Atrial fibrillation and flutter; Constipation; Other mechanical complication of intraperitoneal dialysis catheter - discomfort; Hypomagnesemia; Hypokalemia; Hydronephrosis with ureteral stricture, not elsewhere classified; Pleural effusion in conditions classified elsewhere; Cardiomegaly. Bed requested for [facility] ER HOLD. Status is Inpatient Admission. Condition is Fair. Problem is new. Symptoms have improved. trevor 16:02 15:20 07/29/2020 00:08 Hospitalization Ordered by Nikos Prado MD for Inpatient bp Admission. Preliminary diagnosis is Atrial fibrillation and flutter; Constipation; Other mechanical complication of intraperitoneal dialysis catheter - discomfort; Hypomagnesemia; Hypokalemia; Hydronephrosis with ureteral stricture, not elsewhere classified; Pleural effusion in conditions classified elsewhere; Cardiomegaly. Bed requested for Telemetry/MedSurg (Inpatient). Status is Inpatient Admission. Condition is Fair. Problem is new. Symptoms have improved. dw
--- NOTE | 2020-07-29 00:09 | ER ---
Nurse's Notes [facility] Name: Alma Rosa Corral Age: 64 yrs Sex: Female : 1955 Arrival Date: 07/28/2020 Time: 23:20 Bed 13 Private MD: Diagnosis: Atrial fibrillation and flutter;Constipation;Other mechanical complication of intraperitoneal dialysis catheter-discomfort;Hypomagnesemia;Hypokalemia;Hydronephrosis with ureteral stricture, not elsewhere classified;Pleural effusion in conditions classified elsewhere;Cardiomegaly Presentation: 07/28 23:31 Chief complaint: Patient states: I have been feeling like my heart has been racing, I sg just feel very weak as well. Coronavirus screen: Client denies travel out of the [place] in the last 14 days. At this time, the client does not indicate any symptoms associated with coronavirus-19. Ebola Screen: Patient negative for fever greater than or equal to 101.5 degrees Fahrenheit, and additional compatible Ebola Virus Disease symptoms Patient denies exposure to infectious person. Patient denies travel to an Ebola-affected area in the 21 days before illness onset. No symptoms or risks identified at this time. Initial Sepsis Screen: Does the patient meet any 2 criteria? HR > 90 bpm. Does the patient have a suspected source of infection? No. Patient's initial sepsis screen is negative. Risk Assessment: Do you want to hurt yourself or someone else? Patient reports no desire to harm self or others. Onset of symptoms was July 28, 2020. Care prior to arrival: None. Transition of care: patient was not received from another setting of care. 23:31 Method Of Arrival: Wheelchair sg 23:31 Note no Dialysis today, reports having upper abdominal pain at this time. 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 - Social history:: Smoking status: Patient denies any tobacco usage or history of. - Family history:: not pertinent. Screenin:42 Abuse screen: Denies threats or abuse. Nutritional screening: No deficits noted. ea Tuberculosis screening: No symptoms or risk factors identified. Fall Risk None identified. Assessment: 23:50 General: Appears uncomfortable, Behavior is appropriate for age. Pain: Complains of ea pain in chest. Neuro: Level of Consciousness is awake, alert, obeys commands, Oriented to person, place, time. Cardiovascular: Patient's skin is warm and dry. Respiratory: Airway is patent Respiratory effort is even, unlabored, Respiratory pattern is regular, symmetrical. Derm: Skin is pink, warm \T\ dry. 07/29 00:10 Reassessment: xray at bedside at this time. sg 03:00 Reassessment: Patient and/or family updated on plan of care and expected duration. Pain ea level reassessed. Patient states feeling better. Vital Signs: 07/28 23:54 BP 132 / 88; Pulse 136; Resp 18; Pulse Ox 97% on R/A; sg 23:54 Weight 63.5 kg; sg 07/29 00:30 BP 141 / 101; Pulse 119; Resp 20; Pulse Ox 99% on R/A; ea 00:30 Pulse 120; ea 00:40 Pulse 98; ea 01:00 BP 156 / 76; Pulse 72; Resp 22; Pulse Ox 99% ; ea 02:45 BP 154 / 84; Pulse 74; Resp 18; Pulse Ox 100% on R/A; ea ED Course: 07/28 23:20 Patient arrived in ED. cf2 23:31 Arm band placed on. sg 23:32 Triage completed. sg 23:39 Brayden Yoder MD is Attending Physician. trevor 23:42 Nettie Dukes RN is Primary Nurse. ea 23:42 Patient has correct armband on for positive identification. Placed in gown. Bed in low ea position. Call light in reach. Side rails up X 1. alarm security or surveillance monitor on. Pulse ox on. NIBP on. 23:50 EKG done, by ED staff, reviewed by Brayden Yoder MD. 07/29 00:07 Nikos Prado MD is Hospitalizing Provider. trevor 00:17 XRAY Chest (1 view) In Process Unspecified. EDMS 02:58 No provider procedures requiring assistance completed. Patient admitted, IV remains in ea place. Administered Medications: 00:21 Drug: Heparin (ND-Bolus No thrombolytic) - HEParin 60 units/kg {Co-Signature: junior woods (Clayton Boston RN).} Route: IVP; Site: right forearm; 03:24 Follow up: Response: No adverse reaction ea 00:21 Drug: Heparin (ND Drip) 12 units/kg/hr - (HEParin 44295 units, D5W 500 ml) ea {Co-Signature: sg (Clayton Boston RN).} Route: IV; Rate: calculated rate; Site: right forearm; 03:24 Follow up: IV Status: Infusion continued upon admission ea 00:28 Drug: Lopressor 2.5 mg Route: IVP; Site: right forearm; ea 00:30 Follow up: Pulse 120 bpm; Response: No adverse reaction ea 00:36 Drug: Lopressor 2.5 mg Route: IVP; Site: right forearm; ea 00:40 Follow up: Pulse 98 bpm; Response: No adverse reaction ea 00:36 Drug: Pepcid 20 mg Route: IVP; Site: right forearm; ea 03:02 Follow up: Response: No adverse reaction ea 00:43 Drug: Lopressor (metoprolol TARTRATE) 50 mg Route: PO; ea 03:02 Follow up: Response: No adverse reaction ea 00:53 Not Given (Duplicate Order): Digoxin 0.5 mg IVP once trevor 03:00 Drug: Aspirin 81 mg Route: PO; ea 03:23 Follow up: Response: No adverse reaction ea 03:00 Drug: Potassium Chloride 20 mEq Route: IV; Rate: per protocol; Site: right forearm; ea 03:23 Follow up: IV Status: Infusion continued upon admission ea 03:01 Drug: Magnesium Sulfate 1 grams Route: IVPB; Infused Over: 1 hrs; Site: right forearm; ea 03:23 Follow up: IV Status: Infusion continued upon admission ea Outcome: 00:08 Decision to Hospitalize by Provider. trevor 02:58 Admitted to ER Hold. Please see [facility] for further documentation. ea 02:58 Condition: stable 02:58 Instructed on the need for admit, Demonstrated understanding of instructions. 16:02 Patient left the ED. bp Signatures: Dispatcher [employer] EDClayton Kaba RN RN sg Anderson, Corey, MD MD cha Antunez, Elena, RN RN ea Peltier, Brian, RN RN bp Frazier, Celesta 2 Clayton pacheco Corrections: (The following items were deleted from the chart) 00:09 02/04 23:31 Acuity: LILIBETH 3 sg sg
[2020-07-29 00:27] LABS: Absolute Lymphocytes (CBC) 0.8 K/uL (0.7-4.9); Hematocrit 34.3 % (36.0-45.0); Lymphocytes % 11.4 % (15.3-44.8); MPV 9.3 fL (7.6-11.3); RBC Red Blood Cell Count 3.89 M/uL (3.86-4.86)
[2020-07-29 00:29] LABS: Protime INR 0.97
[2020-07-29] MEDS ORDERED: METOPROLOL TAR 50 MG TAB ONE ×2 (00:31→10:40)
[2020-07-29] MEDS ORDERED: DIGOXIN 0.25 MG/ML AMP ONE (00:32)
[2020-07-29] MEDS ORDERED: FAMOTIDINE 20 MG/2 ML VIAL IV ONE (00:32)
[2020-07-29] MEDS ORDERED: METOPROLOL TARTRATE 5 MG/5 ML INJ IV ONE (00:32)
[2020-07-29] MEDS ORDERED: HEPARIN/D5W 25,000 UNIT/500 ML BAG IV ONE (01:04)
[2020-07-29] MEDS ORDERED: HEPARIN 5000 UNIT/ML 1 ML VIAL ONE (01:04)
[2020-07-29 01:14] LABS: ALT/SGPT 47 U/L (12-78); AST/SGOT 58 U/L (15-37); Albumin 3.1 g/dL (3.4-5.0); Alkaline Phosphatase 76 U/L (45-117); BUN Blood Urea Nitrogen 37 mg/dL (7-18); Bicarbonate 30 mmol/L (21-32); Bilirubin Direct < 0.1 mg/dL (0-0.2); Bilirubin Total 0.4 mg/dL (0.2-1.0); Glucose Level 120 mg/dL (74-106); Lipase 182 U/L (73-393); Magnesium 1.5 mg/dL (1.8-2.4); NT PRO-BNP 7086 pg/mL (<125); Protein, Total 7.2 g/dL (6.4-8.2); Sodium Level 143 mmol/L (136-145); Troponin (Emerg Dept Use Only) 0.13 ng/mL (0.0-0.045)
[2020-07-29 01:19] LABS: Potassium 2.9 mmol/L (3.5-5.1)
[2020-07-29] MEDS ORDERED: Magnesium Sulfate 2gm IVPB 2 G/50 ML BAG IV ONE (02:22)
[2020-07-29] MEDS ORDERED: KCL 20 MEQ/100 mL IVPB 20 MEQ/100 ML BAG IV ONE (02:22)
[2020-07-29] MEDS ORDERED: ASPIRIN 81 MG CHEWABLE TABLET ONE (02:22)
--- NOTE | 2020-07-29 02:57 | P.HP ---
Certification for Inpatient Patient admitted to: Observation With expected LOS: <2 Midnights Patient will require the following post-hospital care: None Practitioner: I am a practitioner with admitting privileges, knowledge of patient current condition, hospital course, and medical plan of care. Services: Services provided to patient in accordance with Admission requirements found in Title 42 Section 412.3 of the Code of Federal Regulations <Leonard Matta - Last Filed: 07/29/20 02:51> Patient History Date of Service: 07/29/20 Primary Care Provider: Dr. Rg, Dr. Grimes History of Present Illness: 64-year-old female with history of ESRD on PD, hypertension, hyperlipidemia, hypothyroidism, CVA presents emergency department for palpitations. Patient reports that approximately 2200 last night she is initiating peritoneal dialysis when she began having palpitations, has been shared heart rate found to be around 180. Patient was transferred to the emergency department for evaluation, initially heart rate was around 166 AFib RVR, ED provider ordered metoprolol IV, p.o., IV heparin and cardiac workup. Regulo hairston converted to sinus rhythm after administration of IV/po metoprolol. Lab significant for hypokalemia potassium 2.9, magnesium 1.5 troponin 0.13. ED provider wishes to admit patient for further evaluation and management When I saw the patient in the ER she was awake, alert, oriented x3. Patient feeling better at this time, no chest pain, no shortness of breath. Vital signs stable, sinus rhythm rate 75 - Past Medical/Surgical History Diabetic: No -: Hypertension -: CVA -: End-stage renal disease on PD/HD -: Hyperlipidemia -: colon cancer 2013 -: Hypothyroidism -: fistula placement -: PD catheter placement -: Colon resection -: Thyroid surgery Psychosocial/ Personal History: Patient disabled, lives with - Family History Family History: Reviewed- Non-Contributory - Social History Smoking Status: Never smoker Alcohol use: No CD- Drugs: No Caffeine use: Yes Place of Residence: Home <Leonard Matta - Last Filed: 07/29/20 02:51> Date of Service: 08/08/20 <Nikos Prado - Last Filed: 08/08/20 20:37> Allergies amlodipine [From [facility]] Allergy (Verified 01/28/19 07:27) Itching Home Medications: Atorvastatin Calcium [Lipitor] 40 mg PO BEDTIME 09/17/16 Hydralazine HCl [Apresoline] 100 mg PO TID 09/17/16 Levothyroxine [Synthroid*] 0.05 mg PO DAILY 09/17/16 Liothyronine Sodium [Cytomel] 5 mcg PO DAILY 09/17/16 allopurinoL [Allopurinol] 100 mg PO DAILY 09/17/16 cloNIDine HCL [Catapres*] 0.3 mg PO TID 09/17/16 paricalcitoL [Zemplar*] 1 mcg PO DAILY 09/17/16 Acetaminophen with Codeine [Acetaminophen-Cod #3 Tablet] 1 tab PO Q6HP PRN 01/28/19 Aspirin [Aspirin EC 81 MG] 81 mg PO DAILY 01/28/19 Ferrous Gluconate [Iron] 256 mg PO DAILY 01/28/19 Metoprolol Succinate 25 mg PO DAILY 01/28/19 Ondansetron [Ondansetron Odt] 1 tab PO BID PRN 01/28/19 Sennosides/Docusate Sodium [Senexon-S Tablet] 1 tab PO BID 01/28/19 Lactulose [Cephulac*] 15 ml PO BID #30 ucup 01/29/19 Apixaban [Eliquis] 2.5 mg PO BID 30 Days #60 tablet 07/29/20 Bumetanide [Bumex*] 1 mg PO DAILY tab 07/29/20 Metoprolol Tartrate [Lopressor*] 25 mg PO BID 30 Days #60 tab 07/29/20 Spironolactone [Aldactone*] 50 mg PO DAILY tab 07/29/20 ramipriL [Altace*] 5 mg PO DAILY cap 07/29/20 Review of Systems 10-point ROS is otherwise unremarkable Cardiovascular: Chest Pain, Palpitations, Light Headedness <Leonard Matta - Last Filed: 07/29/20 02:51> Physical Examination - Physical Exam General: Alert, In no apparent distress HEENT: Atraumatic, PERRLA, Mucous membr. moist/pink Neck: Supple, 2+ carotid pulse no bruit, No LAD Respiratory: Clear to auscultation bilaterally, Normal air movement Cardiovascular: Regular rate/rhythm, Normal S1 S2 Gastrointestinal: Normal bowel sounds, No tenderness Musculoskeletal: No tenderness Integumentary: No rashes Neurological: Normal speech, Normal strength at 5/5 x4 extr, Normal tone, Normal affect - Studies Laboratory Data (last 24 hrs) 07/29/20 00:09: PT 11.1, INR 0.97 07/29/20 00:09: WBC 6.70, Hgb 10.7 L, Hct 34.3 L, Plt Count 227 07/29/20 00:09: Sodium 143, Potassium 2.9 L*, BUN 37 H, Creatinine 6.42 H*, Glucose 120 H, Magnesium 1.5 L D, Total Bilirubin 0.4, AST 58 H, ALT 47, Alkaline Phosphatase 76, Lipase 182 <Leonard Matta - Last Filed: 07/29/20 02:51> Assessment and Plan - Plan Assessment Paroxysmal atrial fibrillation with rapid ventricular respond-mildly elevated troponin suspect demand ischemia Hypomagnesemia Hypokalemia End-stage renal disease on PD/HD Hypertension Hyperlipidemia Hypothyroidism Plan Paroxysmal atrial fibrillation with rapid ventricular respond-mildly elevated troponin suspect demand ischemia: In sinus rhythm after metoprolol IV/p.o.. Continue to monitor on telemetry, it heparin drip initiated, continue with this at this time until further recommendations from cardiology. Other home medications continued. Trend troponins, echocardiogram ordered. Appreciate further input from cardiology. Hypomagnesemia: Magnesium replacement ordered, recheck with morning labs Hypokalemia: Patient is on PD/HD, will cautiously replace potassium levels with guidance from nephrology. End-stage renal disease on PD/HD: Patient does peritoneal dialysis at home but has functional dialysis access the left arm. Hypertension: Home medications continued, patient also takes p.r.n. clonidine/hydralazine. Also added metoprolol 25 mg p.o. daily for antiar rhythmic affect/blood pressure control. Hyperlipidemia: Continue atorvastatin Hypothyroidism: Free T4 normal, continue levothyroxine. Discharge Plan: Home Plan to discharge in: 24 Hours - Advance Directives Does patient have a Living Will: Yes Does patient have a Durable POA for Healthcare: No - Code Status/Comfort Care Code Status Assessed: Yes (Full code) Critical Care: No Time Spent Managing Pts Care (In Minutes): 55 <Leonard Matta - Last Filed: 07/29/20 02:51> - Plan Plan of care reviewed as noted above by Leonard Matta, and I agree with the management plan as noted above. Likely discharge home later today <Nikos Prado - Last Filed: 08/08/20 20:37>
[2020-07-29 05:14] VITALS: BMI 21.9
[2020-07-29] MEDS ORDERED: LEVOTHYROXINE SOD 0.05 MG TABLET PO SCH (07:21)
[2020-07-29] MEDS ORDERED: METOPROLOL TAR 25 MG TAB PO SCH (07:21)
[2020-07-29] MEDS ORDERED: HYDRALAZINE HCL 20 MG/ML VIAL IV PRN (07:21)
[2020-07-29] MEDS ORDERED: HEPARIN/D5W 25,000 UNIT/500 ML BAG IV SCH (07:21)
[2020-07-29] MEDS ORDERED: ONDANSETRON 4 MG/2 ML VIAL IV PRN (07:21)
--- NOTE | 2020-07-29 08:25 | RAD REPORT ---
EXAM DESCRIPTION: RAD - Chest Single View - 07/29/2020 12:17 am CLINICAL HISTORY: Cough;Dyspnea COMPARISON: Portable June 17, 2020 TECHNIQUE: AP portable chest image was obtained 07/29/2020 12:17 am . FINDINGS: No peripheral mass or consolidation. Central vascular engorgement and prominent central pe rihilar markings noted. Right pleural effusion is present. Mild cardiomegaly is present slightly less than seen on the comparison. Trachea is midline. No pneumothorax. No measurable left pleural effusio n. No acute bony abnormality seen. No acute aortic findings suspected. IMPRESSION: Mild to moderate failure/ volume overload pattern.
[2020-07-29 08:50] LABS: Magnesium 2.1 mg/dL (1.8-2.4); Potassium 3.1 mmol/L (3.5-5.1); Troponin I 0.16 ng/mL (0.0-0.045)
[2020-07-29] MEDS ORDERED: ASPIRIN EC 81 MG TAB PO SCH (09:00)
[2020-07-29] MEDS ORDERED: allopurinoL 100 MG TAB PO SCH (09:00)
[2020-07-29] MEDS ORDERED: ramipriL 5 MG CAP PO SCH (09:00)
[2020-07-29] MEDS ORDERED: BUMETANIDE 1 MG TABLET PO SCH (09:00)
[2020-07-29] MEDS ORDERED: SPIRONOLACTONE 25 MG TABLET PO SCH (09:00)
[2020-07-29 09:02] LABS: CKMB Creatine Kinase MB 3.3 ng/mL (0.3-3.6); Thyroid Stimulating Hormone 3.1 uIU/mL (0.360-3.740)
[2020-07-29] MEDS ORDERED: ASPIRIN EC 81 MG TAB PO ONE (10:40)
[2020-07-29 14:45] VITALS: BP 153/102; TEMP 97.9
[2020-07-29] MEDS ORDERED: POTASSIUM CL SA 10 MEQ TAB PO ONE ×2 (15:00→15:13)
[2020-07-29 16:14] VITALS: O2SAT 100
--- NOTE | 2020-07-29 17:47 | RAD REPORT ---
EXAM DESCRIPTION: CT - Abdomen Pelvis Wo Contrast - 07/29/2020 6:41 am CLINICAL HISTORY: Abd pain;Constipation;Abdominal distention COMPARISON: 01/23/2019 TECHNIQUE: CT of the abdomen and pelvis without IV contrast. Evaluation of the solid organs and vasc ulature is suboptimal due to lack of IV contrast. Oral contrast identified throughout the abdomen. FINDINGS: Lung Bases: Right pleural effusion with right basilar compressive atelectasis. Cardiomegal y. Bones: Mild endplate spondylosis and facet arthropathy. Abdomen: Liver: The liver has normal size and density. Subcentimeter hypodensities in the liver are stable and may represent cysts. Gallbladder: No calcified gallstones. Spleen, Pancreas, and Adrenal Glands: The spleen, pancreas, and adrenal glands are unremarkable. Kidneys: Exophytic mass arising from the inferior pole of the left kidney measuring 4.7 x 3.9 cm. Mil d right hydronephrosis. No obstructing calculus identified. Nonspecific right perinephric fat strandi ng. Vasculature: Aortoiliac atherosclerosis. IVC is unremarkable. Stomach: The stomach and duodenum have normal course. Other: No free intraperitoneal air. No free fluid or lymphadenopathy. Peritoneal dialysis cathete r in the abdomen. Pelvis: Bladder: Urinary bladder is unremarkable. Bowel: No dilated loops of large or small bowel. Moderate amount of stool throughout the colon most prominent in the rectum. Prior right hemicolectomy. Small ventral hernia containing minimal bowel wh ich is nondilated. No bowel obstruction at this time. Appendix: Not identified. Pelvis: Redemonstrated 5.3 x 4.9 cm right adnexal cystic structure. Prior hysterectomy. IMPRESSION: 1. Mild right hydronephrosis without obstructing calculus identified. This may be on the basis of right adnexal cystic structure.. 2. Solid-appearing inferior pole left renal mass measuring 4.7 cm again identified. This is concernin g for renal cell carcinoma. 3. Redemonstrated 5.3 cm right adnexal cystic structure. If ultrasound has not previously been perfor med this would be recommended. Annual ultrasound surveillance also recommended. 4. Right pleural effusion with bibasilar compressive atelectasis. 5. Cardiomegaly. 6. Small ventral hernia containing a minimal portion of nondilated small bowel. No evidence of bowel obstruction. This is stable. 7. Moderate amount stool most prominent in the rectum. This exam was performed according to our departmental dose-optimization program, which includes autom ated exposure control, adjustment of the mA and/or kV according to patient size and/or use of iterati ve reconstruction technique. Electronically signed by: Darwin Pascual 07/29/2020 2:47 AM [employer] Due to temporary technical issues with the PACS/Fluency reporting system, reports are being signed by the in house radiologists without review as a courtesy to insure prompt reporting. The interpreting radiologist is fully responsible for the content of the report.
--- NOTE | 2020-07-29 20:19 | P.CNS ---
Date of Consult: 07/29/20 Reason for Consult: ESRD Requesting Physician: Nikos Prado Primary Care Provider: Dr. Sydney Jerome Chief Complaint: Tachycardia History of Present Illness: 64-year-old female with history of ESRD on PD, hypertension, hyperlipidemia, hypothyroidism, CVA presents emergency department for palpitations. Patient reports that approximately 2200 last night she is initiating peritoneal dialysis when she began having palpitations, has been shared heart rate found to be around 180. Patient was transferred to the emergency department for evaluation, initially heart rate was around 166 AFib RVR, ED provider ordered metoprolol IV, p.o., IV heparin and cardiac workup. Patient converted to sinus rhythm after administration of IV/po metoprolol. Lab significant for hypokalemia potassium 2.9, magnesium 1.5 troponin 0.13. ED provider wishes to admit patient for further evaluation and management 00:02 This 64 yrs old Black Female presents to ER via Wheelchair with complaints of trevor Palpitations. 00:02 The patient presents with a history of irregular heart beat, heart racing. Context: The trevor symptoms occur at rest. Onset: The symptoms/episode began/occurred just prior to arrival. Duration: The patient or guardian reports a single episode, that is still ongoing. Modifying factors: The symptoms are aggravated by nothing. The symptoms are alleviated by nothing. Associated signs and symptoms: The patient has no apparent associated signs or symptoms. Severity of symptoms: At their worst the symptoms were mild in the emergency department the symptoms are unchanged. The patient has experienced a previous episode. Allergies amlodipine [From [facility]] Allergy (Verified 01/28/19 07:27) Itching Home medications list reviewed: Yes Home Medications: Atorvastatin Calcium [Lipitor] 40 mg PO BEDTIME 09/17/16 Hydralazine HCl [Apresoline] 100 mg PO TID 09/17/16 Levothyroxine [Synthroid*] 0.05 mg PO DAILY 09/17/16 Liothyronine Sodium [Cytomel] 5 mcg PO DAILY 09/17/16 allopurinoL [Allopurinol] 100 mg PO DAILY 09/17/16 cloNIDine HCL [Catapres*] 0.3 mg PO TID 09/17/16 paricalcitoL [Zemplar*] 1 mcg PO DAILY 09/17/16 Acetaminophen with Codeine [Acetaminophen-Cod #3 Tablet] 1 tab PO Q6HP PRN 01/28/19 Aspirin [Aspirin EC 81 MG] 81 mg PO DAILY 01/28/19 Ferrous Gluconate [Iron] 256 mg PO DAILY 01/28/19 Metoprolol Succinate 25 mg PO DAILY 01/28/19 Ondansetron [Ondansetron Odt] 1 tab PO BID PRN 01/28/19 Sennosides/Docusate Sodium [Senexon-S Tablet] 1 tab PO BID 01/28/19 Lactulose [Cephulac*] 15 ml PO BID #30 ucup 01/29/19 Apixaban [Eliquis] 2.5 mg PO BID 30 Days #60 tablet 07/29/20 Bumetanide [Bumex*] 1 mg PO DAILY tab 07/29/20 Metoprolol Tartrate [Lopressor*] 25 mg PO BID 30 Days #60 tab 07/29/20 Spironolactone [Aldactone*] 50 mg PO DAILY tab 07/29/20 ramipriL [Altace*] 5 mg PO DAILY cap 07/29/20 - Past Medical/Surgical History Diabetic: No -: Hypertension -: CVA -: End-stage renal disease on PD/HD -: Hyperlipidemia -: colon cancer 2013 -: Hypothyroidism -: fistula placement -: PD catheter placement -: Colon resection -: Thyroid surgery Psychosocial/ Personal History: Patient disabled, lives with - Social History Alcohol use: No CD- Drugs: No Caffeine use: Yes Place of Residence: Home Review of Systems 10-point ROS is otherwise unremarkable Cardiovascular: Palpitations Neurological: Weakness Physical Examination Temp Pulse Resp BP Pulse Ox 97.9 F 66 15 153/102 H 100 07/29/20 12:00 07/29/20 12:00 07/29/20 12:00 07/29/20 12:00 07/29/20 12:00 General: In no apparent distress, Oriented x3, Cooperative HEENT: Atraumatic Neck: Supple Respiratory: Normal air movement Cardiovascular: No edema, Regular rate/rhythm Gastrointestinal: Soft and benign, Non-distended Musculoskeletal: No clubbing, No contractures Integumentary: No rashes, No cyanosis Neurological: Abnormal gait, Abnormal speech Laboratory Data (last 24 hrs) 07/29/20 00:09: PT 11.1, INR 0.97 07/29/20 00:09: WBC 6.70, Hgb 10.7 L, Hct 34.3 L, Plt Count 227 07/29/20 00:09: Sodium 143, Potassium 2.9 L*, BUN 37 H, Creatinine 6.42 H*, Glucose 120 H, Magnesium 1.5 L D, Total Bilirubin 0.4, AST 58 H, ALT 47, Alkaline Phosphatase 76, Lipase 182 Imagings Data: EXAM DESCRIPTION: CT - Abdomen Pelvis Wo Contrast - 07/29/2020 6:41 am CLINICAL HISTORY: Abd pain;Constipation;Abdominal distention COMPARISON: 01/23/2019 TECHNIQUE: CT of the abdomen and pelvis without IV contrast. Evaluation of the solid organs and vasculature is suboptimal due to lack of IV contrast. Oral contrast identified throughout the abdomen. FINDINGS: Lung Bases: Right pleural effusion with right basilar compressive atelectasis. Cardiomegaly. Bones: Mild endplate spondylosis and facet arthropathy. Abdomen: Liver: The liver has normal size and density. Subcentimeter hypodensities in the liver are stable and may represent cysts. Gallbladder: No calcified gallstones. Spleen, Pancreas, and Adrenal Glands: The spleen, pancreas, and adrenal glands are unremarkable. Kidneys: Exophytic mass arising from the inferior pole of the left kidney measuring 4.7 x 3.9 cm. Mild right hydronephrosis. No obstructing calculus identified. Nonspecific right perinephric fat stranding. Vasculature: Aortoiliac atherosclerosis. IVC is unremarkable. Stomach: The stomach and duodenum have normal course. Other: No free intraperitoneal air. No free fluid or lymphadenopathy. Peritoneal dialysis catheter in the abdomen. Pelvis: Bladder: Urinary bladder is unremarkable. Bowel: No dilated loops of large or small bowel. Moderate amount of stool throughout the colon most prominent in the rectum. Prior right hemicolectomy. Small ventral hernia containing minimal bowel which is nondilated. No bowel obstruction at this time. Appendix: Not identified. Pelvis: Redemonstrated 5.3 x 4.9 cm right adnexal cystic structure. Prior hysterectomy. IMPRESSION: 1. Mild right hydronephrosis without obstructing calculus identified. This may be on the basis of right adnexal cystic structure.. 2. Solid-appearing inferior pole left renal mass measuring 4.7 cm again identified. This is concerning for renal cell carcinoma. 3. Redemonstrated 5.3 cm right adnexal cystic structure. If ultrasound has not previously been performed this would be recommended. Annual ultrasound surveillance also recommended. 4. Right pleural effusion with bibasilar compressive atelectasis. 5. Cardiomegaly. 6. Small ventral hernia containing a minimal portion of nondilated small bowel. No evidence of bowel obstruction. This is stable. 7. Moderate amount stool most prominent in the rectum. Conclusions/Impression: A/ ESRD on HD Hypokalemia Hypomagnesemia HTN with CKD/ CHF Diastolic CHF, chronic Anemia in CKD ISAC/ Secondary HyperPTH with hypocalcemia P/ Continue current POC and Medications. Plan for PD this evening. Replete oral potassium. Start Coreg Will need evaluation of her renal mass. No NSAIDs. AM labs. Daily weight. Thank you kindly for the consultation. Case reviewed with Dr. Prdao.
[2020-07-29] MEDS ORDERED: ATORVASTATIN 40 MG TAB PO SCH (21:00)
--- NOTE | 2020-07-29 21:38 | P.DS ---
Admission Date: 07/29/20 Discharge Date: 07/29/20 Primary Care Provider: Dr. Sydney Jerome Disposition: ROUTINE DISCHARGE Discharge Condition: GOOD Reason for Admission: Afib with RVR Consultations: Renal - Dr. Grimes Procedures: CXR (07/29): mild-moderate failure / volume overload pattern. No peripheral mass or consolidation. Central vascular engorgement and prominent central perihilar markings noted. Right pleural effusion is present. Mild cardiomegaly is present slightly less than seen on the comparison. Trachea is midline. No pneumothorax. No measurable left pleural effusion. No acute bony abnormality seen. No acute aortic findings suspected CT Abd/pelvis (07/29): 1. Mild right hydronephrosis without obstructing calculus identified. This may be on the basis of right adnexal cystic structure.. 2. Solid-appearing inferior pole left renal mass measuring 4.7 cm again identified. This is concerning for renal cell carcinoma. 3. Redemonstrated 5.3 cm right adnexal cystic structure. If ultrasound has not previously been performed this would be recommended. Annual ultrasound surveillance also recommended. 4. Right pleural effusion with bibasilar compressive atelectasis. 5. Cardiomegaly. 6. Small ventral hernia containing a minimal portion of nondilated small bowel. No evidence of bowel obstruction. This is stable. 7. Moderate amount stool most prominent in the rectum. Problem List: Paroxysmal Afib with RVR -mildly elevated troponin suspect demand ischemia Hypomagnesemia Hypokalemia End-stage renal disease on PD/HD L renal mass (known) Right adnexal cystic structure Hypertension Hyperlipidemia Hypothyroidism Brief History of Present Illness: 64-year-old female with history of ESRD on PD, hypertension, hyperlipidemia, hypothyroidism, CVA presents emergency department for palpitations. Patient reports that approximately 2200 last night she is initiating peritoneal dialysis when she began having palpitations, has been shared heart rate found to be around 180. Patient was transferred to the emergency department for evaluation, initially heart rate was around 166 AFib RV R, ED provider ordered metoprolol IV, p.o., IV heparin and cardiac workup. Patient converted to sinus rhythm after administration of IV/po metoprolol. Lab significant for hypokalemia potassium 2.9, magnesium 1.5 troponin 0.13. ED provider wishes to admit patient for further evaluation and management Hospital Course: Patient converted to sinus rhythm. Cardiology was consulted, felt troponin increase was likely due to demand ischemia in the setting of a fib with RVR and ESRD. She was transitioned to oral metoprolol, and discharged with a prescription for 25 mg BID, as well as Eliquis 2.5 mg b.i.d. Patient did report a remote history of G.I. 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 She was noted to have hypokalemia to 2.9 on admission and this was repleted prior to discharge. Patient reported some vague / intermittent abdominal pain over the past several weeks, and intermittent constipation as well. CT Abd/pelvis was done and revealed known L renal mass that patient and state is known and has been followed with serial imaging. CT also revealed a R adnexal cystic lesion, unknown clinical significance. She was advised to f/u with PCP, would likely benefit from outpatient U/S. Vital Signs/Physical Exam: Temp Pulse Resp BP Pulse Ox 97.9 F 66 15 153/102 H 100 07/29/20 12:00 07/29/20 12:00 07/29/20 12:00 07/29/20 12:00 07/29/20 12:00 General: Alert, In no apparent distress, Oriented x3 HEENT: Sclerae nonicteric Respiratory: Clear to auscultation bilaterally Cardiovascular: Regular rate/rhythm, Edema (trace) Gastrointestinal: Soft and benign, No tenderness Musculoskeletal: No tenderness Integumentary: No rashes Neurological: Normal speech, Normal affect Laboratory Data at Discharge: WBC 6.70 K/uL (4.3-10.9) 07/29/20 00:09 Hgb 10.7 g/dL (12.0-15.0) L 07/29/20 00:09 Hct 34.3 % (36.0-45.0) L 07/29/20 00:09 Plt Count 227 K/uL (152-406) 07/29/20 00:09 PT 11.1 SECONDS (9.5-12.5) 07/29/20 00:09 INR 0.97 07/29/20 00:09 APTT Cancelled 07/29/20 10:45 Sodium 142 mmol/L (136-145) 07/29/20 08:00 Potassium 3.1 mmol/L (3.5-5.1) L 07/29/20 08:00 BUN 38 mg/dL (7-18) H 07/29/20 08:00 Creatinine 5.54 mg/dL (0.55-1.3) H* 07/29/20 08:00 Glucose 135 mg/dL (74-106) H 07/29/20 08:00 Magnesium 2.1 mg/dL (1.8-2.4) D 07/29/20 08:00 Total Bilirubin 0.4 mg/dL (0.2-1.0) 07/29/20 00:09 AST 58 U/L (15-37) H 07/29/20 00:09 ALT 47 U/L (12-78) 07/29/20 00:09 Alkaline Phosphatase 76 U/L (45-117) 07/29/20 00:09 Troponin I Cancelled 07/29/20 13:21 Triglycerides 56 mg/dL (<150) 07/29/20 08:00 Cholesterol 118 mg/dL (<200) 07/29/20 08:00 HDL Cholesterol 60 mg/dL (40-60) 07/29/20 08:00 Cholesterol/HDL Ratio 1.97 07/29/20 08:00 Lipase 182 U/L (73-393) 07/29/20 00:09 Home Medications: Atorvastatin Calcium [Lipitor] 40 mg PO BEDTIME 09/17/16 Hydralazine HCl [Apresoline] 100 mg PO TID 09/17/16 Levothyroxine [Synthroid*] 0.05 mg PO DAILY 09/17/16 Liothyronine Sodium [Cytomel] 5 mcg PO DAILY 09/17/16 allopurinoL [Allopurinol] 100 mg PO DAILY 09/17/16 cloNIDine HCL [Catapres*] 0.3 mg PO TID 09/17/16 paricalcitoL [Zemplar*] 1 mcg PO DAILY 09/17/16 Acetaminophen with Codeine [Acetaminophen-Cod #3 Tablet] 1 tab PO Q6HP PRN 01/28/19 Aspirin [Aspirin EC 81 MG] 81 mg PO DAILY 01/28/19 Ferrous Gluconate [Iron] 256 mg PO DAILY 01/28/19 Metoprolol Succinate 25 mg PO DAILY 01/28/19 Ondansetron [Ondansetron Odt] 1 tab PO BID PRN 01/28/19 Sennosides/Docusate Sodium [Senexon-S Tablet] 1 tab PO BID 01/28/19 Lactulose [Cephulac*] 15 ml PO BID #30 ucup 01/29/19 Apixaban [Eliquis] 2.5 mg PO BID 30 Days #60 tablet 07/29/20 Bumetanide [Bumex*] 1 mg PO DAILY tab 07/29/20 Metoprolol Tartrate [Lopressor*] 25 mg PO BID 30 Days #60 tab 07/29/20 Spironolactone [Aldactone*] 50 mg PO DAILY tab 07/29/20 ramipriL [Altace*] 5 mg PO DAILY cap 07/29/20 New Medications: Apixaban [Eliquis] 2.5 mg PO BID 30 Days #60 tablet Metoprolol Tartrate [Lopressor*] 25 mg PO BID 30 Days #60 tab Physician Discharge Instructions: you were found to have atrial fibrillation. (irregular heart rhythm). You were treated with a beta saeed (metoprolol) and converted/improved back to sinus rhythm. You are discharged with a prescription for metoprolol 25mg twice a day, as well as a blood thinner - Eliquis 2.5mg twice a day to lower your risk of blood clot formation / stroke. Follow up with Cardiology in 1 week. 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 Diet: Renal Activity: Ad pillo Followup: Lexx Riggins MD [Primary Care Provider] - Time spent managing pt's care (in minutes): 45
--- NOTE | 2020-08-01 09:58 | ECHO ---
HEIGHT: 5 ft 6 in WEIGHT: 135 lb 9.349 oz DATE OF STUDY: 07/29/[address]: Leonard Matta NP 2-DIMENSIONAL: YES M.MODE: YES DOPPLER: YES COLOR FLOW: YES TDS: PORTABLE: DEFINITY: BUBBLE STUDY: DIAGNOSIS: ATRIAL FIBRILLATION CARDIAC HISTORY: CATHERIZATION: SURGERY: PROSTHETIC VALVE: PACEMAKER: MEASUREMENTS (cm) DIASTOLIC (NORMALS) SYSTOLIC (NORMALS) IVSd 1.4 (0.6-1.2) LA Diam 3.6 (1.9-4.0) LVEF 65% LVIDd 4.4 (3.5-5.7) LVIDs 2.9 (2.0-3.5) %FS 35% LVPWd 1.2 (0.6-1.2) Ao Diam 2.6 (2.0-3.7) 2 DIMENSIONAL ASSESSMENT: RIGHT ATRIUM: NORMAL LEFT ATRIUM: NORMAL RIGHT VENTRICLE: NORMAL LEFT VENTRICLE: MILD LEFT VENTRICULAR HYPERTROPHY TRICUSPID VALVE: MODERATE TRICUSPID REGURGITATION MITRAL VALVE: MILD MITRAL REGURGITATION PULMONIC VALVE: NORMAL AORTIC VALVE: MILD AORTIC STENOSIS PERICARDIAL EFFUSION: SMALL AORTIC ROOT: NORMAL LEFT VENTRICULAR WALL MOTION: NORMAL DOPPLER/COLOR FLOW: SEE BELOW COMMENTS: NORMAL LEFT VENTRICULAR EJECTION FRACTION 60-65% WITH NORMAL WALL MOTION. MILD LEFT VENTRICULAR HYPERTROPHY CONCENTRIC. MILD MITRAL REGURGITATION, MILD AORTIC INSUFFIENCY, MODERATE TRICUSPID REGURGITATION. MODERATE PULMONARY HYPERTENSION, RIGHT VENTRICULAR SYSTOLIC PRESSURE OF 45-50 mmHg. DIASTOLIC DYSFUNCTION. TECHNOLOGIST: ANNIE VLILAR
== END 2020-07-29 16:08 | disposition home or self-care (01) ==
LOC: ER 23:19 → ERHOLD 07-29 02:16
PROVIDERS: ADMIT Hospitalist; ATTEND Hospitalist
DX: I48.0 Paroxysmal atrial fibrillation (principal); I24.8 Other forms of acute ischemic heart disease; E83.42 Hypomagnesemia; I13.2 Hypertensive heart and chronic kidney disease with heart failure and with stage 5 chronic kidney disease, or end stage renal disease; N18.6 End stage renal disease; Z20.822 Contact with and (suspected) exposure to COVID-19; Z99.2 Dependence on renal dialysis; E87.6 Hypokalemia; E78.5 Hyperlipidemia, unspecified; E03.9 Hypothyroidism, unspecified; R93.422 Abnormal radiologic findings on diagnostic imaging of left kidney; R93.89 Abnormal findings on diagnostic imaging of other specified body structures; Z86.73 Personal history of transient ischemic attack (TIA), and cerebral infarction without residual deficits; Z85.038 Personal history of other malignant neoplasm of large intestine; I50.32 Chronic diastolic (congestive) heart failure; D63.1 Anemia in chronic kidney disease; N25.81 Secondary hyperparathyroidism of renal origin; R94.31 Abnormal electrocardiogram [ECG] [EKG]
CPT/HCPCS: 96365; 96367; 93005 ×2; 93306; 85025; 80048 ×2; 36415; 83735 ×2; 85610; 80061; 80076; 85652; 84443 ×2; 84484 ×2; 82553; 84439; 82607; 83690; 83880; 74176; 71045; 96375; 99285; U0003; J1644 ×2; J3480; J3475; G0378 ×2; J1160

== ENCOUNTER 2020-09-16 23:05 | Emergency (ER) | payer OTHER ==
--- OUTSIDE RECORDS SUMMARY | 2020-09-16 23:11 | XMS REPORT | Continuity of Care Document ---
:1955 Author Organization [facility] t Address [address] [place] [address] Care Team Providers Name Role Phone Patrice Zheng Attending Clinician Doctor Unassigned, Name Attending Clinician Unavailable Oseas Luke Attending Clinician Babak Cerrato Attending Clinician Leonard Oakes Jr Admitting Clinician Oseas Luke Admitting Clinician Problems Condition Condition Condition Status Onset Resolution Last Treating Co mments Source Name Details Category Date Date Treatment Clinician Date UNK Diagnosis Active 2019-062020-05-26 Mem oria 07-17 07:37:00 l UNK 00:00: Talon 00 Active 05/17/2020 [facility] CATHETER Diagnosis Active 2019-062020-05-26 M emoria DIALYSIS 07-17 08:06:00 l PERITONEAL CATHETER 00:00: He rmann DIALYSIS 00 PERITONEAL Active 05/17/2020 [facility] ARM PAIN Diagnosis Active 2019-062020-04-13 M emoria 0-13 21:44:00 l ARM PAIN 00:00: Keenan n 00 Active 04/05/[address] [facility] [address] SENT Diagnosis Active 2019-062020-04-05 Me moria 0-13 21:18:[address] SENT 00:00: Rupert 00 Active 04/05/2020 [facility] NEW Diagnosis Active 2020-07-08 [facility] oria EVALUATION 2-10 14:24:00 l NEW 00:00: Talon EVALUATION 00 Active 08/03/2019 [facility] N18.6 Diagnosis Active 2019-03-10 Mem oria -16 10:07:00 l N18.6 00:00: Rupert 00 Active 03/09/2019 [facility] CKD Diagnosis Active 2019-01-19 Mem oria 01-15 11:41:00 l CKD 00:00: Talon 00 Active 01/15/2019 [facility] 620.2 - Diagnosis Active 2011-062012-06-08 Mn moria OVARIAN 0-16 15:31:00 l CYST NE 620.2 - 00:01: Keenan n OVARIAN 00 CYST NE Active 04/08/2012 [facility] Talon FOLLOW UP Diagnosis Active 2012-05-19 Memoria 03-12 10:19:00 l FOLLOW 00:00: Talon UP 00 Active 2 [facility] CANCER OF Diagnosis Active 2012-01-17 Memoria RECTAL 01-09 09:50:00 l AMPULLA CANCER 00:00: Rupert OF RECTAL 00 AMPULLA Active 01/10/2012 [facility] COLON Diagnosis Active 2012-02-15 Mem oria CANCER 12-26 13:01:00 l COLON 00:00: Rupert CANCER 00 Active 12/27/2011 [facility] Pain in Problem 2020-04-11 Anthony litzy arm, 07:26:40 l unspecifie Pain in Her cardenas d arm, unspecifie d 04/11/2020 [facility] Cerebrovas Problem Resolve 2020-08-28 Memoria cular d 01:55:48 l accident Talon (disorder) Cerebrovas cular accident (disorder) Resolved Problem 08/28/2020 [facility] Hyperlipid Problem Resolve 2020-08-28 Memoria emia d 01:55:48 l (disorder) Keenan n Hyperlipid emia (disorder) Resolved Problem 08/28/2020 [facility] Kidney Problem Resolve 2020-08-28 Anthony litzy disease d 01:55:48 l (disorder) Kidney Herm vin disease (disorder) Resolved Problem 08/28/2020 [facility] CA - Problem Active 2012-11-08 Memor ia Cancer of 21:08:25 l colon CA - Talon Cancer of colon Active Problem 11/08/2012 [facility], DAMIAN Hanley, DAMIAN Baez Cholestero Problem Active 2012-11-08 M emoria l 21:08:25 l Rupert Cholestero l Active Problem 11/08/2012 [facility], DAMIAN Hanley, DAMIAN Baez H/O: Problem Active 2012-11-08 Memor ia stroke 21:08:25 l H/O: Talon stroke Active Problem 11/08/2012 [facility], DAMIAN Hanley, DAMIAN Baez HT - Problem Active 2012-11-08 Memor ia Hypertensi 21:08:25 l on HT - Rupert Hypertensi on Active Problem 3 [facility], DAMIAN Hanley, DAMIAN Baez Malignant Problem Active 2020-08-28 Mn moria tumor of 01:55:48 l colon Rupert (disorder) Malignant tumor of colon (disorder) Active Problem 08/28/2020 [facility] Dependence Problem Active 2020-08-28 M emoria on 01:55:48 l peritoneal Keenan n dialysis 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) Active Problem 08/28/2020 [facility] History of Problem Active 2020-08-28 M emoria - CVA 01:55:48 l (context-d History Her cardenas ependent of - CVA category) (context-d ependent category) Active Problem 08/28/2020 [facility] Hypertensi Problem Active 2020-08-28 M emoria ve 01:55:48 l disorder, Rupert systemic Hypertensi arterial ve (disorder) disorder, systemic arterial (disorder) Active Problem 08/28/2020 [facility] Spinal Problem Active 2020-08-28 Memor ia cord 01:55:48 l disorder Spinal Keenan n (disorder) cord disorder (disorder) Active Problem 08/28/2020 [facility] PAIN IN Diagnosis Active 2020-04-13 Me moria ARM, 21:44:00 l UNSPECIFIE PAIN IN Her cardenas D ARM, UNSPECIFIE D Active [facility] Allergies, Adverse Reactions, Alerts Allergy Allergy Status Severity Reaction(s) Onset Inactive Treating Comm ents Source Name Type Date Date Clinician Heron amLODIPi Active Alyssa rosales l Talon Social History Social Habit Start Date Stop Date Quantity Comments Source Social History 2019-01-15 2019-01-15 [facility] 18:23:27 18:23:27 Medications Ordered Filled Start Stop [...] 20:07: Hydralazine No 25 mg, PO, Memoria 07-20 Daily, 0 l 20:07: Refill(s) glycopyrrol 2019-06 No Route: IV, Memoria ate (ANES) 07-27 Drug form: l 19:23: INJ, ONCE, Stop date: 05/26/20 13:23:00 VALVE INSPECTOR neostigmine 2019-06 No Route: IV, Memoria (ANES) 07-27 Drug form: l 19:23: INJ, ONCE, Stop date: 05/26/20 13:23:00 VALVE INSPECTOR labetalol 2019-06 No Route: IV, Me moria (ANES) 07-27 Drug form: l 19:23: INJ, ONCE, Stop date: 05/26/20 13:23:00 VALVE INSPECTOR Hydralazine 2019-06 No 10 mg, Anthony litzy 07-27 Route: l 19:11: IVP, Rupert 00 Q20Min, Dosing Weight 64.545, kg, PRN Elevated BP, Start date: 05/26/20 13:11:00 VALVE INSPECTOR, Duration: 2 doses or times, Stop date: Limited # of times Labetalol 2019-06 No 10 mg, Memori a 07-27 Route: l 19:11: IVP, Rupert 00 Q5Min, Dosing Weight 64.545, kg, PRN Elevated BP, Start date: 05/26/20 13:11:00 VALVE INSPECTOR, Duration: 5 doses or times, Stop date: Limited # of times Acetaminoph 2019- No 1,000 mg, M emoria en 07-27 Route: PO, l 19:11: Drug form: Rupert 00 TAB, ONCE, Dosing Weight 64.545, kg, PRN Pain Score 1-3, Start date: 05/26/20 13:11:00 VALVE INSPECTOR Fentanyl 2019-06 No 25 Memoria 2-03 microgram, l 19:11: Route: Rupert 00 IVP, Q5Min, Dosing Weight 64.545, kg, PRN Pain Score 4-6, Priority: Routine, Start date: 05/26/20 13:11:00 VALVE INSPECTOR, Duration: 4 doses or times, Stop date: Limited # of times Hydromorpho 2019-06 No 0.5 mg, Mem oria ne 07-27 Route: l 19:11: IVP, Rupert 00 Q5Min, Dosing Weight 64.545, kg, PRN Pain Score 7-10, Start date: 05/26/20 13:11:00 VALVE INSPECTOR, Duration: 4 doses or times, Stop date: Limited # of times Flumazenil 2019-06 No 0.2 mg, Anthony litzy 07-27 Route: l 19:11: IVP, PRN, Dosing Weight 64.545, kg, PRN Benzodiaze pine Reversal, Initial dose, Start date: 05/26/20 13:11:00 VALVE INSPECTOR, Duration: 30 day, Stop date: 06/25/20 13:10:00 VALVE INSPECTOR Naloxone 2019-06 No 0.4 mg, Memori a 07-27 Route: l 19:11: IVP, Rupert 00 Q2MIN, Dosing Weight 64.545, kg, PRN Narcotic Reversal, Start date: 05/26/20 13:11:00 VALVE INSPECTOR, Duration: 8 doses or times, Stop date: Limited # of times Ondansetron 2019-06 No 4 mg, Memor ia 07-27 Route: l 19:11: IVP, ONCE, Rupert 00 Dosing Weight 64.545, kg, PRN Nausea & Vomiting, Start date: 05/26/20 13:11:00 VALVE INSPECTOR Promethazin 2019-06 No 6.25 mg, Me moria e 2- Route: l 19:11: IVPB, Rupert 00 ONCE, Dosing Weight 64.545, kg, PRN Nausea & Vomiting, Start date: 05/26/20 13:11:00 VALVE INSPECTOR ePHEDrine 2019-06 No Route: IV, Me moria (ANES) 2- Drug form: l 18:27: INJ, ONCE, Stop date: 05/26/20 12:27:00 VALVE INSPECTOR dexamethaso 2019-06 No Route: IV, Memoria ne (ANES) 2- Drug form: l 17:57: INJ, ONCE, Stop date: 05/26/20 11:57:00 VALVE INSPECTOR ondansetron 2019-06 No Route: IV, Memoria (ANES) 2- Drug form: l 17:57: INJ, ONCE, Stop date: 05/26/20 11:57:00 VALVE INSPECTOR fentaNYL 2019-06 No Route: IV, Mem oria (ANES) - Drug form: l 17:52: INJ, ONCE, Stop date: 05/26/20 11:52:00 VALVE INSPECTOR lidocaine 2019-06 No Route: IV, Me moria (ANES) 2- Drug form: l 17:52: INJ, ONCE, Stop date: 05/26/20 11:52:00 VALVE INSPECTOR propofol 2019-06 No Route: IV, Mem oria (ANES) 2- Drug form: l 17:52: INJ, ONCE, Stop date: 05/26/20 11:52:00 VALVE INSPECTOR rocuronium 2019-06 No Route: IV, M emoria (ANES) 2- Drug form: l 17:52: INJ, ONCE, Stop date: 05/26/20 11:52:00 VALVE INSPECTOR ceFAZolin 2019-06 No Route: IV, Me moria (ANES) 2- Drug form: l 17:52: INJ, ONCE, Stop date: 05/26/20 11:52:00 VALVE INSPECTOR norepinephr 2019-06 No Route: IV, Memoria ine (ANES) 2- Drug form: l 17:52: INJ, ONCE, Rupert 00 Stop date: 05/26/20 11:52:00 VALVE INSPECTOR vancomycin 2019-06 No Route: IV, M chrisria (ANES) 1000 07-27 Drug form: l mg 16:50: INJ, Start Talon 00 date: 05/26/20 10:50:00 VALVE INSPECTOR, Stop date: 05/26/20 11:50:00 VALVE INSPECTOR Sodium 2019-06 No Route: IV, Memor ia Chloride 2- Total l 0.9% IV 16:50: Volume: Rupert (ANES) 500 00 500, Start mL date: 05/26/20 10:50:00 VALVE INSPECTOR, Stop date: 05/26/20 11:50:00 VALVE INSPECTOR Calcium 2019-06 No 1,000 mL, Memor ia Chloride 07-27 Rate: 75 l 0.0014 15:44: ml/hr, Talon MEQ/ML / 00 Infuse Potassium over: 13.3 Chloride hr, Route: 0.004 IV, Dosing MEQ/ML / Weight Sodium 66.818 kg, Chloride Total 0.103 Volume: MEQ/ML / 1,000, Sodium Start Lactate date: 0.028 05/26/20 MEQ/ML 9:44:00 Injectable VALVE INSPECTOR, Solution Duration: 30 day, Stop date: 06/25/20 9:43:00 VALVE INSPECTOR, 1.74, m2 Sodium 2019-06 No 500 mL, Memoria Chloride 07-27 Rate: 75 l 0.9% IV 500 15:44: ml/hr, Herm vin mL 00 Infuse over: 6.7 hr, Route: IV, Dosing Weight 66.818 kg, Total Volume: 500, Start date: 05/26/20 9:44:00 VALVE INSPECTOR, Duration: 30 day, Stop date: 06/25/20 9:43:00 VALVE INSPECTOR, 1.74, m2 Vancomycin 2019-06 No 2000 mg: Me moria 2- infuse l 21:00: over 2.5 Talon 00 hours For adult patients only: Round to nearest 250 mg per Medical Staff approval MEDICATION WASTE Product Size: 1000 mg Product Wasted: ___ mg Ancef + 2019-06 No Notes: Memoria sterile 07-26 (Same As: l water 20 mL 21:00: Ancef, Herm vin 00 Kefzol) MEDICATION WASTE Product Size: 1000 mg Product Wasted: ___ mg Sodium 2019- Yes 500 mL, Memoria Chloride -24 Infuse l 0.9% 21:27: Over: 20 Rupert (Bolus) IV 00 minutes, Route: IV, ONCE, Dosing Weight 66.818 kg, Start date: 05/17/20 15:27:00 VALVE INSPECTOR, Stop date: 05/17/20 15:27:00 VALVE INSPECTOR Hydralazine 2019- No 10 mg, Anthony litzy 24 Route: l 21:27: IVP, Rupert 00 Q20Min, Dosing Weight 66.818, kg, PRN Elevated BP, Start date: 05/17/20 15:27:00 VALVE INSPECTOR, Duration: 2 doses or times, Stop date: Limited # of times Acetaminoph 2019- No 1,000 mg, M emoria en 24 Route: PO, l 21:27: Drug form: Talon 00 TAB, ONCE, Dosing Weight 66.818, kg, PRN Pain Score 1-3, Start date: 05/17/20 15:27:00 VALVE INSPECTOR Oxycodone 2019- No 5 mg, Memoria Hydrochlori 24 Route: PO, l de 5 MG 21:27: Drug form: Herm vin Oral Tablet 00 TAB, Q4H, Dosing Weight 66.818, kg, PRN Pain Score 4-6, Start date: 05/17/20 15:27:00 VALVE INSPECTOR, Duration: 30 day, Stop date: 06/16/20 15:26:00 VALVE INSPECTOR Morphine 2019- No 2 mg, Memoria -24 Route: l 21:27: IVP, Rupert 00 Q5Min, Dosing Weight 66.818, kg, PRN Pain Score 4-6, Start date: 05/17/20 15:27:00 VALVE INSPECTOR, Duration: 5 doses or times, Stop date: Limited # of times Fentanyl 2019- No 25 Memoria 1-24 microgram, l 21:27: Route: Talon 00 IVP, Q5Min, Dosing Weight 66.818, kg, PRN Pain Score 4-6, Priority: Routine, Start date: 05/17/20 15:27:00 VALVE INSPECTOR, Duration: 4 doses or times, Stop date: Limited # of times Hydromorpho 2019- No 0.5 mg, Mem oria ne 07-17 Route: l 21:27: IVP, Talon 00 Q5Min, Dosing Weight 66.818, kg, PRN Pain Score 7-10, Start date: 05/17/20 15:27:00 VALVE INSPECTOR, Duration: 4 doses or times, Stop date: Limited # of times Flumazenil 2019-06 No 0.2 mg, Anthony litzy 07-17 Route: l 21:27: IVP, PRN, Rupert 00 Dosing Weight 66.818, kg, PRN Benzodiaze pine Reversal, Initial dose, Start date: 05/17/20 15:27:00 VALVE INSPECTOR, Duration: 30 day, Stop date: 06/16/20 15:26:00 VALVE INSPECTOR Naloxone 2019-06 No 0.4 mg, Memori a 07-17 Route: l 21:27: IVP, Talon 00 Q2MIN, Dosing Weight 66.818, kg, PRN Narcotic Reversal, Start date: 05/17/20 15:27:00 VALVE INSPECTOR, Duration: 8 doses or times, Stop date: Limited # of times Ephedrine 2019-06 No 5 mg, Memoria 07-17 Route: l 21:27: IVP, Rupert 00 Q5Min, Dosing Weight 66.818, kg, PRN Low Blood Pressure, Start date: 05/17/20 15:27:00 VALVE INSPECTOR, Duration: 30 day, Stop date: 06/16/20 15:26:00 VALVE INSPECTOR Albuterol 2019- No 2.49 mg, Anthony litzy 0.83 MG/ML 07-17 Route: l Inhalant 21:27: NEB, Rupert Solution 00 Q20Min, Dosing Weight 66.818, kg, PRN Wheezing, Priority: STAT, Start date: 05/17/20 15:27:00 VALVE INSPECTOR, Duration: 30 day, Stop date: 06/16/20 15:26:00 VALVE INSPECTOR Diphenhydra 2019- No 12.5 mg, Me moria mine 07-17 Route: l 21:27: IVP, Drug Talon 00 form: INJ, Q6H, Dosing Weight 66.818, kg, PRN Itching, Start date: 05/17/20 15:27:00 VALVE INSPECTOR, Duration: 30 day, Stop date: 06/16/20 15:26:00 VALVE INSPECTOR Ondansetron 2019-06 No 4 mg, Memor ia 07-17 Route: l 21:27: IVP, ONCE, Dosing Weight 66.818, kg, PRN Nausea & Vomiting, Start date: 05/17/20 15:27:00 VALVE INSPECTOR fentaNYL 2019-06 No Route: IV, Mem oria (ANES) 07-17 Drug form: l 18:18: INJ, ONCE, Stop date: 05/17/20 12:18:00 VALVE INSPECTOR propofol 2019-06 No Route: IV, Mem oria (ANES) 07-17 Drug form: l 18:18: INJ, ONCE, Stop date: 05/17/20 12:18:00 VALVE INSPECTOR ceFAZolin 2019-06 No Route: IV, Me moria (ANES) 07-17 Drug form: l 18:08: INJ, ONCE, Stop date: 05/17/20 12:08:00 VALVE INSPECTOR Sodium 2019-06 No Route: IV, Memor ia Chloride 07-17 Total l 0.9% IV 18:08: Volume: Rupert (ANES) 500 00 500, Start mL date: 05/17/20 12:08:00 VALVE INSPECTOR, Stop date: 05/17/20 13:08:00 VALVE INSPECTOR midazolam 2019-06 No Route: IV, Me moria (ANES) 07-17 Drug form: l 18:03: SOLN, 00 ONCE, Stop date: 05/17/20 12:03:00 VALVE INSPECTOR vancomycin 2019-06 No Route: IV, M emoria (ANES) 1000 07-17 Drug form: l mg 17:46: INJ, Start date: 05/17/20 11:46:00 VALVE INSPECTOR, Stop date: 05/17/20 12:46:00 VALVE INSPECTOR Calcium 2019-06 No 1,000 mL, Memor ia Chloride 24 Rate: 75 l 0.0014 16:07: ml/hr, MEQ/ML / 00 Infuse Potassium over: 13.3 Chloride hr, Route: 0.004 IV, Dosing MEQ/ML / Weight Sodium 66.818 kg, Chloride Total 0.103 Volume: MEQ/ML / 1,000, Sodium Start Lactate date: 0.028 05/17/20 MEQ/ML 10:07:00 Injectable VALVE INSPECTOR, Solution Duration: 30 day, Stop date: 06/16/20 10:06:00 VALVE INSPECTOR, 1.74, m2 Vancomycin 2019-06 No 1 gm, Memori a 07-16 Route: l 23:00: IVPB, Drug Talon 00 form: INJ, PRE OP, Dosing Weight 63.636, kg, Start date: 05/16/20 17:00:00 VALVE INSPECTOR, Duration: 1 day, Stop date: 05/17/20 16:59:00 VALVE INSPECTOR, ABX Indication : Surgical Prophylaxi s Ancef 2019-06 No 2 gm, Memoria 07-16 Route: l 23:00: IVPB, PRE Rupert 00 OP, Dosing Weight 63.636, kg, Start date: 05/16/20 17:00:00 VALVE INSPECTOR, Duration: 1 day, Stop date: 05/17/20 16:59:00 VALVE INSPECTOR, ABX Indication : Surgical Prophylaxi s Clonidine 2019-06 Yes 0.3 mg = 1 Me moria Hydrochlori 0-16 tab, PO, l de 0.3 MG 18:03: TID, 0 Keenan n Oral Tablet 00 Refill(s) ferrous 2019-06 Yes 325 mg = 1 Anthony litzy sulfate 325 0-16 tab, PO, l mg oral 18:03: Daily, # Keenan n enteric 00 30 tab, 0 coated Refill(s), tablet Pharmacy: [id number], 170.18, cm, 04/05/20 21:48:00 CDT, Height, 63.636, kg, 04/05/20 21:48:00 CDT, Weight Nephro-Flash 2019-06 No Notes: Anthony litzy Rx 0-16 (Same as: l 14:00: Nephro-Vit Rupert e Rx and Diatx) Give with food. atorvastati 2019-06 No Notes: Anthony litzy n 0-15 (Same as: l 02:00: Lipitor) Tlaon Dilaudid 2019-06 No Notes: Memoria 0-15 (Same as: l 01:19: Dilaudid) ceFAZolin 2019-06 No Route: IV, Me moria (ANES) 0-14 Drug form: l 22:09: INJ, ONCE, Rupert Stop date: 04/06/20 17:09:00 CDT glycopyrrol 2019-06 [...] Duration: 30 day, Stop date: 05/06/20 16:25:00 VALVE INSPECTOR, 1.74, m2, 0 heparin 2019-06 No Notes: [...] Drug form: l mg 18:31: INJ, Start Talon 00 date: 04/06/20 13:31:00 CDT, Stop date: 04/06/20 14:31:00 CDT Lactated 2019-06 No Route: IV, Mem oria Ringers 0-14 Total l Injection 18:25: Volume: Maribell nn IV (ANES) 00 500, Start 500 mL date: 04/06/20 13:25:00 CDT, Stop date: 04/06/20 14:25:00 CDT Sodium 2020-1 No 500 ml, Memoria Chloride 0-14 Rate: 25 l 0.9% IV 500 16:47: ml/hr, Herm vin ml 00 Infuse over: 20 hr, Route: IV, Dosing Weight 63.636 kg, Total Volume: 500, Start date: 04/06/20 11:47:00 CDT, Duration: 30 day, Stop date: 05/06/20 11:46:00 VALVE INSPECTOR, 1.74, m2 Tylenol 2019-06 No 650 mg, Memoria 0-14 Route: PO, l 15:33: Drug form: Talon 00 TAB, ONCE, Dosing Weight 63.636, kg, PRN Pain Score 1-3, Start date: 04/06/20 10:33:00 CDT Allopurinol 2019-06 No Notes: Anthony litzy 0-14 (Same as: l 14:00: Zyloprim) Rupert 00 Aspirin 81 2019-06 No Notes: Do Me moria MG Enteric 0-14 not crush l Coated 14:00: or chew. Talon Tablet 00 (Same As: Ecotrin) Clonidine 2019-06 No Notes: Memori a Hydrochlori 0-14 (Same As: l de 0.3 MG 14:00: Catapres) Her cardenas Oral Tablet 00 ferrous 2019-06 No 256 mg, Memoria gluconate 0-14 Route: PO, l 14:00: Drug form: Talon 00 TAB, Daily, Dosing Weight 63.636, kg, Start date: 04/06/20 9:00:00 CDT, Duration: 30 day, Stop date: 05/05/20 9:00:00 VALVE INSPECTOR Triiodothyr 2019-06 No Notes: Anthony litzy onine 0-14 (Same as: l 14:00: Cytomel) Rupert 00 24 HR 2019-06 No Notes: Memoria Metoprolol 0-14 (Same as: l Tartrate 25 14:00: Toprol XL) Talon MG Extended 00 Do Not Release Crush Tablet [Toprol] paricalcito 2019-06 No Notes: Anthony litzy l 0.001 MG 0-14 (Same as: l Oral 14:00: Zemplar) Talon Capsule 00 ferrous 2019-06 No Notes: Memoria sulfate 0-14 Give with l 14:00: food. "Do Rupert 00 Not Crush" Thyroxine 2019-06 No Notes: Memori a 0-14 Take 1 l 11:30: hour Talon 00 [...] litzy 0-14 (Same as: l 03:03: Apresoline Talon 00 ) Push over 5 minutes Benzocaine 2019-06 No Notes: Memor ia 15 MG / 0-14 Same as: l Menthol 3.6 03:03: Cepacol Her cardenas MG Lozenge 00 [Cepacol Sore Throat Pain Relief 15/3.6] Tessalon 2019-06 No Notes: Memoria Perles 0-14 (Same As: l 03:03: Tessalon Rupert 00 Perles) "Do Not Crush" tizanidine 2019-06 No Notes: Memor ia 0-14 (Same As: l 03:03: Zanaflex) Talon 00 Acetaminoph 2019-06 No Notes: Anthony litzy en 325 MG / 0-14 (Same as: l Hydrocodone 01:40: Phelps Maribell nn Bitartrate 00 325/5) Do 5 MG Oral not exceed Tablet 4gm/day of [Phelps acetaminop 5/325] hen. Dextrose 2019-06 No 12.5 gm, Memor ia 50% Syringe 0-14 25 mL, l (D50W) 01:39: Route: Rupert 00 IVP, Drug Form: INJ, Dosing Weight 63.636, kg, PRN, PRN Blood Glucose Results, Start date: 04/05/20 20:39:00 CDT, Duration: 30 day, Stop date: 05/05/20 19:38:00 VALVE INSPECTOR, 0 Glucagon 2019-06 No 1 mg, Memoria 0-14 Route: IM, l 01:39: Drug form: PDR/INJ, PRN, Dosing Weight 63.636, kg, PRN Blood Glucose Results, Start date: 04/05/20 20:39:00 CDT, Duration: 30 day, Stop date: 05/05/20 19:38:00 VALVE INSPECTOR, 0 Docusate 2019-06 No Notes: Memoria 0-14 (Same as: l 01:39: Colace) (Do Not Crush) Ondansetron 2019-06 No Notes: Anthony litzy 0-14 (Same as: l 01:39: Zofran) MEDICATION WASTE Product Size: 4 mg Product Wasted: ___ mg Melatonin 2019-06 No Notes: Memori a 0-14 (Same as: l 01:39: Melatonin) Acetaminoph 2019-06 No Notes: Do M emoria en 0-14 not exceed l 01:39: 4 gm/day. (Same as: Tylenol) atorvastati Yes 40 mg = 1 M emoria n 40 mg 7-28 tab, PO, l oral tablet 17:26: Bedtime, # Talon 00 30 tab, 0 Refill(s) Aspirin 81 Yes 81 mg = 1 Me moria MG Enteric 7-28 tab, PO, l Coated 17:21: Daily, # Rupert Tablet 00 90 tab, 3 Refill(s) Ondansetron [...] l MG / 17:05: day, # 20 Talon sennosides, 00 tab, 0 CORRECTION 8.6 MG Refill(s) Oral Tablet metoprolol Yes 25 mg = 1 Me moria 25 mg oral 7-28 tab, PO, l tablet, 17:05: Daily, # Keenan n extended 00 30 tab, 0 release Refill(s) Clonidine No Notes: Memori a Hydrochlori -27 (Same As: l de 0.3 MG 18:00: Catapres) Her cardenas Oral Tablet 00 metoprolol No Notes: Memor ia extended 01-17 (Same as: l release 17:00: Toprol XL) Do Not Crush Ondansetron No Notes: Anthony litzy 01-17 (Same as: l 16:09: Zofran) MEDICATION WASTE [...] - (Same as: l 14:00: Adalat CC, Talon Procardia XL) Give on empty stomach. Take 1 hour before or 2 hours after meal; "Avoid grapefruit and grapefruit juice". Do not crush Nephro-Flash No Notes: Anthony litzy Rx 01-17 (Same as: l 14:00: Nephro-Vit Talon e Rx and Diatx) Give with food. Triiodothyr No Notes: Anthony litzy onine 01-17 (Same as: l 11:30: Cytomel) Talon Thyroxine No Notes: Memori a - Take 1 l 11:30: hour Talon 00 before or 2 hours after meal; Enteral feeds may interefere with the absorption of this medication .(Same as:Levothr oid, Synthroid) heparin No Notes: Memoria 01-17 porcine l 06:00: heparin Rupert 00 atorvastati No Notes: Anthony litzy n 01-17 (Same as: l 02:00: Lipitor) Rupert 00 Acetaminoph No Notes: Anthony litzy en 325 MG / 01-17 (Same as: l Hydrocodone 00:40: Phelps Maribell nn Bitartrate 00 325/5) Do 5 MG Oral not exceed Tablet 4gm/day of [Phelps acetaminop 5/325] hen. Acetaminoph No 2 tab, Anthony litzy en 325 MG / 01-17 Route: PO, l Hydrocodone 00:36: Dosing Herm vin Bitartrate 00 Weight 5 MG Oral 62.358, Tablet kg, Q4H, [Phelps STAT, 5/325] Start date: 01/16/19 19:36:00 CDT, Duration: 30 day, Stop date: 02/15/19 16:00:00 CDT Milk of No Notes: Memoria Magnesia 7-26 (Same as: l 23:23: Milk of Talon 00 Magnesia, MOM) Aspirin 81 No Notes: Memor ia MG Chewable 7-26 Take with l Tablet 22:30: food. Talon 00 Zofran No Notes: Memoria 7-26 (Same as: l 22:24: Zofran) Rupert 00 MEDICATION WASTE Product Size: 4 mg Product Wasted: ___ mg Lactulose No Notes: Memori a 667 MG/ML 7-26 (Same l Oral 22:23: as:Chronul Talon Solution 00 ac) Morphine No Notes: Memoria 01-16 (Same l 22:23: as:MORPhin e Sulfate) Metoprolol [...] l de 100 MG 22:00: Apresoline He rm Oral Tablet ) May interfere w/enteral feedings Take With Food Promethazin No 6.25 mg, Me moria e 01-16 Route: l 17:59: IVPB, Talon 00 ONCE, Dosing Weight 62.358, kg, PRN Nausea & Vomiting, Start date: 01/16/19 12:59:00 CDT Naloxone No 0.1 mg, Memori a 01-16 Route: l 17:59: SUB-Q, Talon Q6H, Dosing Weight 62.358, kg, PRN Itching, Start date: 01/16/19 12:59:00 CDT, Duration: 30 day, Stop date: 02/15/19 12:58:00 CDT Meperidine No 12.5 mg, Mem oria 01-16 Route: l 17:59: IVP, Rupert 00 Q30Min, Dosing Weight 62.358, kg, PRN Other -See Comment, For shivering, Start date: 01/16/19 12:59:00 CDT, Duration: 2 doses or times, Stop date: Limited # of times Ondansetron 0 No 4 mg, Memor ia 01-16 Route: l 17:59: IVP, ONCE, Talon Dosing Weight 62.358, kg, PRN Nausea & Vomiting, Start date: 01/16/19 12:59:00 CDT Flumazenil 2019-0 No 0.2 mg, Anthony litzy 01-16 Route: l 17:59: IVP, PRN, Rupert 00 Dosing Weight 62.358, kg, PRN Benzodiaze pine Reversal, Initial dose, Start date: 01/16/19 12:59:00 CDT, Duration: 30 day, Stop date: 02/15/19 12:58:00 CDT Fentanyl 2018-0 No 50 Memoria 01-16 microgram, l 17:59: Route: Rupert 00 IVP, Q5Min, Dosing Weight 62.358, kg, PRN Pain Score 7-10, Priority: Routine, Start date: 01/16/19 12:59:00 CDT, Duration: 2 doses or times, Stop date: Limited # of times Hydromorpho 2018-0 No 0.5 mg, Mem oria ne 01-16 Route: l 17:59: IVP, Talon 00 Q5Min, Dosing Weight 62.358, kg, PRN Pain Score 7-10, Start date: 01/16/19 12:59:00 CDT, Duration: 4 doses or times, Stop date: Limited # of times Diphenhydra 2018-0 No 12.5 mg, Me moria mine 01-16 Route: l 17:59: IVP, Drug form: INJ, Q6H, Dosing Weight 62.358, kg, PRN Itching, Start date: 01/16/19 12:59:00 CDT, Duration: 30 day, Stop date: 02/15/19 12:58:00 CDT Albuterol 2018-0 No 2.49 mg, Anthony lityz 0.83 MG/ML 01-16 Route: l Inhalant 17:59: NEB, Talon Solution 00 Q20Min, Dosing Weight 62.358, kg, PRN Wheezing, Priority: Routine, Start date: 01/16/19 12:59:00 CDT, Duration: 30 day, Stop date: 02/15/19 12:58:00 CDT Acetaminoph 2018-0 No 1,000 mg, M emoria en 01-16 Route: PO, l 17:59: Drug form: Rupert 00 TAB, ONCE, Dosing Weight 62.358, kg, PRN Pain Score 1-3, Start date: 01/16/19 12:59:00 CDT Hydralazine No 10 mg, Anthony litzy 01-16 Route: l 17:59: IVP, Rupert 00 Q20Min, Dosing Weight 62.358, kg, PRN Elevated BP, Start date: 01/16/19 12:59:00 CDT, Duration: 2 doses or times, Stop date: Limited # of times Labetalol No 10 mg, Memori a 01-16 Route: l 17:59: IVP, Rupert 00 Q5Min, Dosing Weight 62.358, kg, PRN Elevated BP, Start date: 01/16/19 12:59:00 CDT, Duration: 5 doses or times, Stop date: Limited # of times esmolol No Route: IV, Anthony litzy (ANES) 01-16 Drug form: l 17:45: INJ, ONCE, Talon 00 Stop date: 01/16/19 12:45:00 CDT Dextrose No Route: IV, Mem oria 50% in 01-16 Stop date: l Water IV 17:45: 01/16/19 Maribell nn (ANES) 12:45:00 CDT phenylephri No Route: IV, Memoria ne (ANES) 01-16 Drug form: l 17:45: INJ, ONCE, Talon 00 Stop date: 01/16/19 12:45:00 CDT EPINEPHrine No Route: IV, Memoria (ANES) 01-16 Drug form: l 17:43: INJ, ONCE, Stop date: 01/16/19 12:43:00 CDT calcium No Route: IV, Anthony litzy chloride 01-16 Drug form: l (ANES) 17:33: INJ, ONCE, Maribell nn Stop date: 01/16/19 12:33:00 CDT propofol No Route: IV, Mem oria (ANES) 01-16 Drug form: l 16:52: INJ, ONCE, Rupert Stop date: 01/16/19 11:52:00 CDT Amidate No Route: IV, Anthony litzy (ANES) 01-16 Drug form: l 16:52: INJ, ONCE, Stop date: 01/16/19 11:52:00 CDT norepinephr 2018- No Route: IV, Memoria ine (ANES) 01-16 Drug form: l 16:52: INJ, ONCE, Stop date: 01/16/19 11:52:00 CDT lidocaine 2018- No Route: IV, Me moria (ANES) 01-16 Drug form: l 16:52: INJ, ONCE, Stop date: 01/16/19 11:52:00 CDT ondansetron 2018- No Route: IV, Memoria (ANES) 01-16 Drug form: l 16:42: INJ, ONCE, Stop date: 01/16/19 11:42:00 CDT ceFAZolin No Route: IV, Me moria (ANES) 01-16 Drug form: l 16:42: INJ, ONCE, Stop date: 01/16/19 11:42:00 CDT fentaNYL No Route: IV, Mem oria (ANES) 01-16 Drug form: l 16:37: INJ, ONCE, Stop date: 01/16/19 11:37:00 CDT vancomycin 2018- No Route: IV, M emoria (ANES) 1000 [...] 7-26 Rate: 25 l 0.0014 13:46: ml/hr, Rupert MEQ/ML / 00 Infuse Potassium over: 40 [...] Rate: 25 l 0.9% IV 13:46: ml/hr, Rupert 1,000 mL 00 Infuse over: 40 hr, Route: IV, Dosing Weight 62.358 kg, Total Volume: 1,000, Start date: 01/16/19 8:46:00 CDT, Duration: 1 day, Stop date: 01/17/19 8:45:00 CDT, 1.68, m2, 0 Vitamin B12 2019-0 Yes monthly, 0 Memoria 7-25 Refill(s) l 18:31: Rupert 00 allopurinol 2019-0 Yes 100 mg = 1 Memoria 100 mg oral 7-25 tab, PO, l tablet 18:30: Daily, # Talon 00 90 tab, 1 Refill(s) Aspirin 81 2019-0 Yes 81 mg = 1 Me moria MG Chewable 7-25 tab, PO, l Tablet 18:30: Daily, Talon 00 tab, 0 Refill(s) 24 HR 2019-0 No 30 mg = 1 Memoria Nifedipine 7-25 tab, PO, l 30 MG 18:30: Daily, # Talon Extended 00 30 tab, 0 Release Refill(s) Tablet [Nifedical] paricalcito 2019-0 Yes 1 Memori a l 0.001 MG 7-25 microgram l Oral 18:29: = 1 cap, Rupert Capsule 00 PO, Daily, # 30 cap, [...] # 30 tab, 0 Refill(s) Ferate 256 Yes 256 mg = 1 M emoria [...] PO, l oral tablet 18:27: Bedtime, # Rupert 00 30 tab, 0 Refill(s) Clonidine Yes 0.3 mg = 1 Me moria Hydrochlori 7-25 tab, PO, l de 0.3 MG 18:25: TID, # 60 Her cardenas Oral Tablet 00 tab, 1 Refill(s) Vancomycin No 2001 mg: Me moria 7-25 infuse l 18:00: over 2.5 Rupert 00 hours For adult patients only: Round [...] Anthony Hanley Diastolic (mm Hg) 2020-07-20 19:53:00 Pat Hanley Heart Rate 2020-07-20 19:53:00 [facility] 2020-07-20 19:53:00 Patori al Rupert Height 2020-07-20 19:53:00 160.02 cm [facility] Weight 2020-07-20 19:53:00 [facility] BMI Calculated 2020-07-20 19:53:00 Memori al Talon Systolic (mm Hg) 2020-05-26 20:30:00 Anthony rial Rupert Diastolic (mm Hg) 2020-05-26 20:30:00 Mem orial Rupert Systolic (mm Hg) 2020-05-26 20:00:00 Anthony rial Rupert Diastolic (mm Hg) 2020-05-26 20:00:00 Mem orial Talon Respitory Rate 2020-05-26 19:45:00 Memori al Talon Systolic (mm Hg) 2020-05-26 19:45:00 Anthony rial Talon Diastolic (mm Hg) 2020-05-26 19:45:00 Mem orial Talon Respitory Rate 2020-05-26 19:30:00 [facility] al Talon Respitory Rate 2020-05-26 19:15:00 [facility] al [place]on Height 2020-05-26 15:59:00 160.02 cm [facility] Weight 2020-05-26 15:59:00 [facility] BMI Calculated 2020-05-26 15:59:00 [facility] al Rupert Height 2020-05-25 21:05:00 160.02 cm [facility] Weight 2020-05-25 21:05:00 [facility] BMI Calculated 2020-05-25 21:05:00 [facility] [place]on Respitory Rate 2020-05-17 21:00:00 [facility] [place]on Systolic (mm Hg) 2020-05-17 21:00:00 Anthony rial Rupert Diastolic (mm Hg) 2020-05-17 21:00:00 Mem orial Rupert Respitory Rate 2020-05-17 20:00:00 [facility] al Talon Systolic (mm Hg) 2020-05-17 20:00:00 Anthony rial Rupert Diastolic (mm Hg) 2020-05-17 20:00:00 Mem orial Rupert Respitory Rate 2020-05-17 19:45:00 Memori al Rupert Systolic (mm Hg) 2020-05-17 19:45:00 Anthony rial Talon Diastolic (mm Hg) 2020-05-17 19:45:00 Mem orial Talon Height 2020-05-17 16:00:00 160.02 cm [facility] Weight 2020-05-17 16:00:00 [facility]on BMI Calculated 2020-05-17 16:00:00 [facility] Talon Temperature Oral (F) 2020-04-08 21:41:00 97.9 F [facility] Rupert Systolic (mm Hg) 2020-04-08 21:41:00 Anthony rial Rupert Diastolic (mm Hg) 2020-04-08 21:41:00 Mem orial Talon Respitory Rate 2020-04-08 16:00:00 Memori al Talon Systolic (mm Hg) 2020-04-08 16:00:00 Anthony rial Talon Diastolic (mm Hg) 2020-04-08 16:00:00 Mem orial Rupert Temperature Oral (F) 2020-04-08 16:00:00 98.0 F [facility] Respitory Rate 2020-04-08 15:45:00 [facility] Talon Systolic (mm Hg) 2020-04-08 15:45:00 Anthony rial Talon Diastolic (mm Hg) 2020-04-08 15:45:00 Mem orial Rupert Respitory Rate 2020-04-08 15:30:00 [facility]ori al Talon Temperature Oral (F) 2020-04-08 12:30:00 98.4 F [facility] Heart Rate 2020-04-08 04:31:00 [facility] Heart Rate 2020-04-07 23:22:00 [facility] Ru[facility] Heart Rate 2020-04-06 12:22:00 [facility] Height 2020-04-06 02:48:00 170.18 cm [facility] Weight 2020-04-06 02:48:00 [facility] BMI Calculated 2020-04-06 02:48:00 [facility] al Talon Height 2020-04-05 23:14:00 170.18 cm [facility] Ru[facility] BMI Calculated 2020-04-05 23:14:00 [facility] al Rupert Weight 2020-04-05 23:14:00 [facility] [place] Systolic (mm Hg) 2019-03-10 17:45:00 Anthony rial Talon Diastolic (mm Hg) 2019-03-10 17:45:00 Mem orial Talon Systolic (mm Hg) 2019-03-10 17:30:00 Anthony rial Talon Diastolic (mm Hg) 2019-03-10 17:30:00 Mem orial Talon Heart Rate 2019-03-10 17:07:00 [facility] Respitory Rate 2019-03-10 17:07:00 Memori al Rupert Systolic (mm Hg) 2019-03-10 17:07:00 Anthony rial Rupert Diastolic (mm Hg) 2019-03-10 17:07:00 Mem orial Rupert Heart Rate 2019-03-10 16:15:00 [facility] Talon Respitory Rate 2019-03-10 15:30:00 Mem[facility] al Talon Heart Rate 2019-03-10 15:30:00 [facility] Ru[facility] Heart Rate 2019-01-18 16:07:00 [facility] Temperature Oral (F) 2019-01-18 16:07:00 98.2 F [facility] Ru[facility] Respitory Rate 2019-01-18 16:07:00 Memori al Talon Systolic (mm Hg) 2019-01-18 16:07:00 Anthony rial Talon Diastolic (mm Hg) 2019-01-18 16:07:00 Mem orial Rupert Respitory Rate 2019-01-18 14:03:00 Memori al Talon Systolic (mm Hg) 2019-01-18 12:32:00 Anthony rial Rupert Diastolic (mm Hg) 2019-01-18 12:32:00 Mem orial Rupert Temperature Oral (F) 2019-01-18 12:32:00 98.2 F [facility] Heart Rate 2019-01-18 12:32:00 [facility] Respitory Rate 2019-01-18 12:32:00 Memori al Talon Temperature Oral (F) 2019-01-18 08:54:00 98.4 F [facility] Heart Rate 2019-01-18 08:54:00 [facility] Systolic (mm Hg) 2019-01-18 08:54:00 Anthony rial Rupert Diastolic (mm Hg) 2019-01-18 08:54:00 Mem orial Rupert BMI Calculated 2019-01-16 13:43:00 Memori al Talon Weight 2019-01-16 13:43:00 [facility] Rupert Height 2019-01-16 13:43:00 160.02 cm [facility] Weight 2019-01-15 17:57:00 [facility] Rupert BMI Calculated 2019-01-15 17:57:00 Memori al Talon Height 2019-01-15 17:57:00 162.56 cm [facility] Temperature Oral (F) 2012-05-19 16:43:00 96.3 F [facility] Heart Rate 2012-05-19 16:43:00 [facility] Rupert Respitory Rate 2012-05-19 16:43:00 Memori al Rupert Systolic (mm Hg) 2012-05-19 16:43:00 Anthony rial Talon Diastolic (mm Hg) 2012-05-19 16:43:00 Mem orial Rupert Weight 2012-05-19 16:43:00 [facility] Talon Height 2012-05-19 16:43:00 160.02 cm [facility] Rupert Temperature Oral (F) 2012-01-28 14:02:00 97.8 F [facility] Rupert Systolic (mm Hg) 2012-01-28 14:02:00 Anthony rial Talon Heart Rate 2012-01-28 14:02:00 [facility] Talon Respitory Rate 2012-01-28 14:02:00 Memori al Talon Diastolic (mm Hg) 2012-01-28 14:02:00 Mem orial Rupert Weight 2012-01-28 14:02:00 [facility] Talon Height 2012-01-28 14:02:00 160.02 cm [facility] Respitory Rate 2012-01-10 14:26:00 Memori al Rupert Heart Rate 2012-01-10 14:26:00 [facility] Rupert Temperature Oral (F) 2012-01-10 14:26:00 98.3 F [facility] Rupert Diastolic (mm Hg) 2012-01-10 14:26:00 Mem orial Rupert Systolic (mm Hg) 2012-01-10 14:26:00 Anthony rial Talon Weight 2012-01-10 14:26:00 [facility] Rupert Height 2012-01-10 14:26:00 160.02 cm [facility]on Procedures Procedure Date / Time Performed Performing Clinician Sourc e Colectomy [facility] Thyroidectomy [facility] Encounters Start End Encounter Admission Attending Care Care Encounter Source Date/Time Date/Time Type Type Clinicians Facility Department ID 2019-08-31 Outpatient [facility] [id number] [facility] 09:50:05 2020-08-24 2020-08-25 Outpatient MISCHER MISCHER [id number] 11:52:51 23:59:59 2020-08-17 2020-08-17 Outpatient YULIANA ZhengMISCHER MHMISCHER [id number] 10:15:00 10:15:00 Paul 01 Patrice 2020-07-20 2020-07-20 Outpatient YULIANA ZhengMISCHER MHMISCHER [id number] 13:30:00 23:59:59 Paul 00 Patrice 2020-06-10 2020-06-10 Orders Doctor ENGLE [id number] 00:00:00 00:00:00 Only Unassigned, ANNITA [id number] [place] [facility] [id number] 2020-05-26 2020-05-26 Outpatient Ti, MHSE MHSE [id number] 07:45:00 14:35:00 Blaine Oseas 2020-05-26 2020-05-26 Outpatient Ti, MHSE MHSE [id number] 07:45:00 14:35:00 Blaine Oseas 2020-05-26 2020-05-26 Outpatient MHSE MHSE [id number] [facility]:45[facility] 2020-05-17 2020-05-17 Outpatient Ti, MHSE MHSE [id number] 08:24:00 15:55:00 Blaine Oseas 2020-05-17 2020-05-17 Outpatient Ti, MHSE MHSE [id number] 08:24:00 15:55:00 Blaine Oseas 2020-05-17 2020-05-17 Outpatient MHSE MHSE [id number] MH 08:24:00 08:24:[address] [address] [facility] 2020-04-05 2020-04-08 Outpatient Srinivas Cerrato MHSE MHSE [id number] 18:08:39 17:20:00 Th[place]ul[place] 2020-04-05 2020-04-08 Outpatient Srinivas Cerrato MHSE MHSE [id number] 18:08:39 17:20:00 Thalakulath 2020-04-06 2020-04-05 Inpatient E MHSE MED [id number] MH 12:24:00 20:31:[address] [facility] 2019-03-10 2019-03-10 Outpatient YULIANA LukeSE MHSE [id number] 10:07:00 12:53:00 Blaine Farooq 2019-03-10 2019-03-10 Outpatient MHSE MHSE [id number] MH 10:07:00 10:07:[address] [facility] 2019-01-16 2019-01-18 Outpatient YURI Luke MHSE [id number] 13:29:00 15:39:00 Blaine Farooq 2019-01-16 2019-01-16 Outpatient MHSE MHSE [id number] MH 13:29:00 13:29:[address] [facility] Results Test Description Test Time Test Comments Results Result Sourc e Comments CHEM PANEL 2020-05-26 20 [facility] 15:09:00 Rupert CHEM PANEL 2020-05-26 4.97 [facility] 15:09:00 Rupert CHEM PANEL 2020-05-26 138 [facility] 15:09:00 Talon CHEM PANEL 2020-05-26 3.6 [facility] 15:09:00 Rupert CHEM PANEL 2020-05-26 107 [facility] 15:09:00 Rupert CHEM PANEL 2020-05-26 24 [facility] 15:09:00 Rupert CHEM PANEL 2020-05-26 9.7 [facility] 15:09:00 Talon CHEM PANEL 2020-05-26 10.6 [facility] 15:09:00 Rupert CHEM PANEL 2020-05-26 10 [facility] 15:09:00 Talon BLOOD BANK RESULTS 2020-05-26 Negative Memori al 15:09:00 (05/26/20 9:09 Rupert AM) CHEM PANEL 2020-05-26 84 [facility] 15:09:00 Talon IMMUNOLOGY 2020-05-26 Not Detected [facility] 13:47:00 (05/26/20 7:47 Rupert AM) BLOOD BANK RESULTS 2020-05-17 Negative Memori al 15:31:00 (05/17/20 9:31 Rupert AM) CHEM PANEL 2020-05-17 91 [facility] 15:31:00 Talon CHEM PANEL 2020-05-17 29 [facility] 15:31:00 Talon CHEM PANEL 2020-05-17 5.79 [facility] 15:31:00 Rupert CHEM PANEL 2020-05-17 141 [facility] 15:31:00 Talon CHEM PANEL 2020-05-17 3.9 [facility] 15:31:00 Talon CHEM PANEL 2020-05-17 108 [facility] 15:31:00 Rupert CHEM PANEL 2020-05-17 27 [facility] 15:31:00 Talon CHEM PANEL 2020-05-17 9.9 [facility] 15:31:00 Talon CHEM PANEL 2020-05-17 9.9 [facility] 15:31:00 Rupert CHEM PANEL 2020-05-17 7 [facility] 15:31:00 Talon HEMATOLOGY 2020-05-17 5.2 [facility] 15:31:00 Talon HEMATOLOGY 2020-05-17 3.61 [facility] 15:31:00 Rupert HEMATOLOGY 2020-05-17 10.4 [facility] 15:31:00 Talon HEMATOLOGY 2020-05-17 33.1 [facility] 15:31:00 Talon HEMATOLOGY 2020-05-17 91.8 [facility] 15:31:00 Talon HEMATOLOGY 2020-05-17 15:31:00 Test Item Value Reference Range Interpretation Comme nts MCH (test code = MCH) 28.8 pg 27.0-31.0 [facility] YytdhbcBUZCWRGUQV0570-07-74 15:31:0031.3[facility] 2020-05-17 15:31:0015.9[facility] ZdzfbrlYFSMIBNLDD6086-88-27 15:31:49186Leuvwtek DwsxideDCYPSCXYFT4994-99-99 15:31:009.2[facility] WdnhpjbXDLXSMSCXR3442-77-81 15:31:00 Test Item Value Reference Range Interpretation Comments PT (test code = PT) 14.8 s 12.0-14.7 [facility] BbodfxnAUEVLRGVQI4805-59-88 15:31:00 Test Item Value Reference Range Interpretation Comments INR (test code = INR) 1.15 1 0.85-1.17 [facility] LdzekuvPVRJIOPURL4910-20-38 15:31:00 Test Item Value Reference Range Interpretation Comments PTT (test code = PTT) 29.5 s 22.9-35.8 [facility] BiejxfmKIIBUUMRHV6299-58-17 15:31:0074.6[facility]annHEMATOLOGY 2020-05-17 15:31:0011.0[facility] GvhutolGTPVQMXJYA1394-93-03 15:31:0011.0[facility] SuficojABQPDHXBAT6701-11-28 15:31:002.6[facility] KsqatqiXJRQZLJGXA6735-55-20 15:31:000.8[facility] SizppysIDLKTAEPUL4201-60-12 15:31:003.9[facility]on VIGGLKVCMU2482-90-27 15:31:000.6[facility] NvknxiyXFWEUFXBGS1980-65-69 15:31:000.6 [facility] WdpyyzqNRXZDPPNUP1751-59-74 15:31:000.1[facility] HermannIMMUNOLOGY 2020-05-17 14:47:00Not Detected (05/17/20 8:47 AM)[facility]annCHEM PANEL 2020-04-08 10:29:0091[facility] HermannCHEM UWCFG0413-71-72 10:29:0044[facility]annCHEM VVFXE1173-94-50 10:29:008.12[facility]annCHEM IOPBF5224-66-03 10:29:89824Ubnughvs HermannCHEM YGPFY8924-16-18 10:29:004.2[facility] HermannCHEM XEVXE2314-75-98 10:29:73297Gxxwhjgp HermannCHEM DUANB5620-66-25 10:29:0024 [facility]annCHEM RFSAA9476-92-80 10:29:008.9[facility] HermannCHEM PANEL 2020-04-08 10:29:0012.2[facility] HermannCHEM PXGJG8440-90-92 10:29:005[facility] WyeadgvWOABTTVMCH6650-05-81 10:29:00 Test Item Value Reference Range Interpretation Comments PT (test code = PT) 15.6 s 12.0-14.7 [facility] ZijhuijFWDJKZFXFN6923-61-30 10:29:00 Test Item Value Reference Range Interpretation Comments INR (test code = INR) 1.23 1 0.85-1.17 [facility] XrcgkhkDHMMVHEUYA8978-25-90 10:29:00 Test Item Value Reference Range Interpretation Comments PTT (test code = PTT) 34.9 s 22.9-35.8 [facility] FddxbqeWHGJNLGTQU9833-98-79 10:29:005.0[facility] HermannHEMATOLOGY 2020-04-08 10:29:003.39[facility] ZebtldhAUSJSEDFPC1072-01-64 10:29:009.8[facility] CztrppsETHCVUMXLH6299-36-94 10:29:0030.6[facility] VlzyxisUWZESWNRPF5800-55-59 10:29:0090.2[facility] XpvohfoUZNRBXRTFN5367-60-74 10:29:00 Test Item Value Reference Range Interpretation Comments MCH (test code = MCH) 29.0 pg 27.0-31.0 [facility] RoebgjxWMAXKEZGJX1870-05-03 10:29:0032.2[facility] HermannHEMATOLOGY 2020-04-08 10:29:0015.4[facility] YxjcpqsZYGEFHJZLW2634-87-47 10:29:33348Hjrmdipx BvsjwzkSBTAGITVPJ4427-59-54 10:29:009.8[facility] IxoundnGRHEBPTURT4524-18-04 10:29:0062.0[facility] HvprkidKNINPYYJOG2500-77-89 10:29:0012.7[facility] Rupert XTFUKESEEA1338-27-80 10:29:0019.5[facility] BiluvqtPUYIQHUFPI1821-70-48 10:29:00 5.1[facility] ZoclahrUJOKYQLFZH2204-98-53 10:29:000.7[facility] HermannHEMATOLOGY 2020-04-08 10:29:003.1[facility] CxngczoDJBIBVEAXJ2899-37-66 10:29:000.6[facility] WgdrwfdFCTAPSTJPT0077-01-73 10:29:001.0[facility] XforunbAJALDWMNYI8786-46-72 10:29:000.3[facility] XpunojtTYXCLKYZMK0898-91-69 10:29:00Negative *NA*(04/08/20 5:29 AM)[facility]annCHEM RFJWE6519-22-77 09:49:60055Dmcwupei HermannCHEM TJMKM8937-41-00 09:49:0041[facility]annCHEM SXSSF8568-48-36 09:49:007.28 [facility]annCHEM IBGVV0273-63-12 09:49:92207Ihbscnqy HermannCHEM PANEL 2020-04-07 09:49:004.2[facility] HermannCHEM FKNPV1685-22-95 09:49:46673Bkxpmlsz HermannCHEM LOPGQ4310-96-05 09:49:0024[facility] HermannCHEM SHZDJ8260-09-05 09:49:008.8[facility] HermannCHEM OYAAE3830-22-48 09:49:0013.2[facility] HermannCHEM SZTKC3150-63-54 09:49:006[facility] YiyswiyINUSKYWSQN5458-01-58 09:49:0079.6 [facility] HlcqcvoHJAYDKJULX1080-68-96 09:49:004.6[facility]annHEMATOLOGY 2020-04-07 09:49:0013.3[facility] EwvqrhvJFPAINXNKP6454-77-14 09:49:001.9[facility] KhgxnzhBDHYPFCPMH0550-10-85 09:49:000.6[facility] XeuyvvoVARTQTUWAP4867-24-33 09:49:004.9[facility] RvsrogdVYDUSIUUUT2588-15-40 09:49:000.3[facility]pert FVZIEKQIJN8363-40-97 09:49:000.8[facility] KorvnmiYNBHHFABOK3879-31-11 09:49:000.1 [facility] ErwwsxgFDZYPQICQD7542-94-22 09:49:006.1[facility] HermannHEMATOLOGY 2020-04-07 09:49:003.59[facility] MrifopoATTROWJTAA7539-29-14 09:49:0010.4[facility] QmklnnaBTXXGUEQLC3329-98-84 09:49:0032.5[facility] IipwxkdWPGCREXTMJ9443-06-06 09:49:0090.7[facility] JqnuyccWFWIILBKKV3664-52-08 09:49:00 Test Item Value Reference Range Interpretation Comments MCH (test code = MCH) 29.0 pg 27.0-31.0 [facility] UjyxevqSBHQUDTLDS2841-64-65 09:49:0031.9[facility] HermannHEMATOLOGY 2020-04-07 09:49:0015.4[facility] OwwpadgZWCBMQMTRY2888-37-55 09:49:46644Vhgcvgtw AdgizlwKHWYPVRCUW8280-15-50 09:49:009.5[facility] HermannBLOOD BANK RESULTS 2020-04-06 20:57:00Product available 4(04/06/20 3:57 PM)[facility]annBLOOD BANK GKARMNR8699-58-23 16:13:00Negative (04/06/20 11:13 AM)[facility]annCHEM NURKF3996-54-48 09:45:0083[facility] HermannCHEM DXLAW9091-55-38 09:45:0036 [facility]annCHEM XKQAH7186-05-19 09:45:006.40[facility] HermannCHEM PANEL 2020-04-06 09:45:09911Vxoldhkg HermannCHEM YXLPI6565-32-12 09:45:003.6[facility] HermannCHEM WDPEN5708-34-70 09:45:23436Jgbetrqk HermannCHEM ZJHAQ3419-54-15 09:45:0024[facility] HermannCHEM FRSFY8386-70-28 09:45:009.1[facility] HermannCHEM ONGRA5279-62-69 09:45:0012.6[facility] HermannCHEM XOGNI3581-63-74 09:45:007 [facility] FpqyustPARERDECOTXDP4193-22-93 09:45:00Negative *NA*(04/06/20 4:45 AM) [facility] JxwuafnVKGOJTZOZC4207-38-32 09:45:004.5[facility] HermannHEMATOLOGY 2020-04-06 09:45:003.73[facility] TqinxkeORFJQLDEXJ5526-95-16 09:45:0010.7[facility] KevtkehCVIAZSPMAB5315-12-29 09:45:0033.6[facility] DjmucwsMVCTRSIZGP5988-85-15 09:45:0090.1[facility] EwfrbnnEKTZNXXPBB4547-14-59 09:45:00 Test Item Value Reference Range Interpretation Comments MCH (test code = MCH) 28.6 pg 27.0-31.0 [facility] OhtjbkwKDHIQJKTPH9796-72-20 09:45:0031.8[facility] HermannHEMATOLOGY 2020-04-06 09:45:0015.5[facility] BfebbcsAACPLZBPWC9460-40-33 09:45:05387Pkbwvkme EbagjvjIBENYHBFJE5118-19-51 09:45:009.9[facility] JuthnsoXLVMBALBNG4269-42-47 09:45:0062.8[facility] JymqjwiZCDYOAOQUA6695-04-50 09:45:0017.1[facility] NQVDFTYNMR8902-24-46 09:45:0015.2[facility] XbqjofrSUOVPTSRGO1691-82-31 09:45:00 4.1[facility] EhhgejdDKSLKPDZUH2021-82-93 09:45:000.8[facility] HermannHEMATOLOGY 2020-04-06 09:45:002.9[facility] DiyazmrDQQAGWBESH9505-19-11 09:45:000.8[facility] ZqouqdxIAYXANCGTU7760-31-86 09:45:000.7[facility] AbrdwxcBNVMCMSDWV5409-33-82 09:45:000.2[facility] DacdkdeITZCEJHITT0656-08-87 02:13:00Not Detected (04/05/20 9:13 PM)[facility]annCHEM JQFUS7889-37-34 23:26:007.7[facility] HermannCHEM XSYOW5408-11-28 23:26:003.9[facility] HermannCHEM YEHMH2712-74-00 23:26:0040 [facility]annCHEM FNHIR5538-42-65 23:26:0038[facility] HermannCHEM PANEL 2020-04-05 23:26:0092[facility] HermannCHEM NRPCJ1089-67-55 23:26:001.2[facility] HermannCHEM VTUAT1625-28-64 23:26:00 Test Item Value Reference Range Interpretation Comments B/C Ratio (test code = B/C Ratio) 5 1 6-25 [facility]annCHEM BAMAT5613-80-75 23:26:003.8[facility] HermannCHEM PANEL 2020-04-05 23:26:00 Test Item Value Reference Range Interpretation Comments A/G Ratio (test code = A/G Ratio) 1.0 1 0.7-1.6 [facility] LenexsyQUTKEZXBEE5416-86-65 23:26:00 Test Item Value Reference Range Interpretation Comments PT (test code = PT) 15.2 s 12.0-14.7 [facility] UuhkkcmCWQZDMKVDA3059-49-62 23:26:00 Test Item Value Reference Range Interpretation Comments INR (test code = INR) 1.19 1 0.85-1.17 [facility] KrifipmRNGDTVBFBZ5374-01-12 23:26:00 Test Item Value Reference Range Interpretation Comments PTT (test code = PTT) 23.3 s 22.9-35.8 [facility] KZUAY5871-29-77 10:53:0013[facility] PANEL 2019-01-18 10:53:13972Toqgllju HermannCHEM BKGRM1530-74-74 10:53:003.85[facility] VSATQ6301-71-46 10:53:16093Uhesskyz [facility]annCHE[facility] UJYPQ0331-05-21 10:53:0019[facility] RUDAQ4728-81-57 10:53:008.6[facility] VQEDB7760-17-44 10:53:86913Opwdwvic [facility]annCHE[facility] YHSCI4026-87-33 10:53:0029 [facility] ZCGFE6117-24-02 10:53:003.7[facility]annCHE[facility] PANEL 2019-01-18 10:53:008.7[facility] NkwafebGKEWSDFYDZ4237-86-45 10:53:0064.4[facility] JtaeytjMYPBKLOYSO5334-19-61 10:53:003.7[facility] SfeisofLZOASRUOXL4291-39-10 10:53:0021.0[facility] FconoukWLVVGWTLRN4526-70-49 10:53:000.7[facility] KBFCEHBZSP7340-03-18 10:53:0010.2[facility] TjniczbHPUSIQXVMJ4222-70-82 10:53:00 4.5[facility] BvzvwuoHPRBNSENUJ0079-44-26 10:53:000.7[facility]annHEMATOLOGY 2019-01-18 10:53:000.3[facility] JyuuyebCRMRJCIOSZ0019-11-65 10:53:001.5[facility] CxvrjdlYLPZQEUXPZ0331-13-08 10:53:007.0[facility] HlgmcmzBCYJSEIZSF8494-69-95 10:53:002.62[facility] NdgpxhgASJOSUBMQM3961-40-64 10:53:007.6[facility] WYKLMGXCNW3790-03-36 10:53:0022.6[facility] XzmylcwQHYMPMAVGQ8336-72-68 10:53:00 86.4[facility] FdbgwuvDFJRETRUFB0686-06-14 10:53:0033.6[facility]annHEMATOLOGY 2019-01-18 10:53:00 Test Item Value Reference Range Interpretation Comments MCH (test code = MCH) 29.0 pg 27.0-31.0 [facility] VnwttbqWANCXPRLKH2627-48-09 10:53:0015.8[facility]annHEMATOLOGY 2019-01-18 10:53:009.7[facility] EofnrpyXGIJAWEYAT5536-70-22 10:53:0098[facility]BL[facility] EDPXZFZ4541-14-99 11:45:00Product available 4(01/17/19 6:45 AM) [facility] JOAOO5040-86-57 10:38:0010[facility]annCHEM PANEL 2019-01-17 10:38:0034[facility]annCHE[facility] PXNMH9654-11-71 10:38:005.10[facility]CHE[facility] MSTYR7183-54-90 10:38:25187Rvbasiex HermannCHEM LMBIP5486-31-52 10:38:98294Ixbieqge [facility]annCHE[facility] KVUII5068-71-04 10:38:005.2[facility]annCHE[facility] NFYWG8664-85-08 10:38:80951Ejxmzmsr HermannCHEM GFKBU7019-87-93 10:38:0025 [facility] AMWIL3852-34-92 10:38:008.5[facility]annCHEM PANEL 2019-01-17 10:38:0015.2[facility] TneqduqNKLROUKPUB2847-17-42 10:38:000.8[facility] EqhzdhfSWHBTQKBWB5436-13-18 10:38:0070.0[facility] VczkhchFSKJKHDNIX7833-28-10 10:38:008.2[facility] BnlniysKCETPYIKKX8735-05-64 10:38:0019.0[facility] LTCLPQZRAI1412-84-91 10:38:002.0[facility] YnujneiUYMMPNYSES2316-61-52 10:38:004.3 [facility] RgrveihDGPEINYMXI6505-08-96 10:38:000.5[facility]annHEMATOLOGY 2019-01-17 10:38:001.2[facility] DayerjuXJTAIPISPL5090-90-16 10:38:000.1[facility] FzpuoqjUWMGOJPOZR3113-36-38 10:38:0021.1[facility] EvgvqulEOYGWRISSN6307-46-97 10:38:0087.7[facility] MjcfcjvMKRTCSKMRB7233-02-49 10:38:006.8[facility] LTGMWLKRAW6080-69-63 10:38:00 Test Item Value Reference Range Interpretation Comments MCH (test code = MCH) 28.4 pg 27.0-31.0 [facility] TzuvwqaJITOVWKMJY0440-68-31 10:38:0016.6[facility]annHEMATOLOGY 2019-01-17 10:38:82169Zhvozehp JkusqqnADTTYFQLSX4522-12-57 10:38:009.7[facility] BfnglfpRVAIXFBXNM6834-17-24 10:38:0032.4[facility] UlqlvtuLZEQRASDBE5820-34-20 10:38:006.1[facility] QqkcflqTBKXZUWDQB8474-78-59 10:38:002.41[facility] HVZHWFPJHZ4475-06-49 19:50:00Negative *NA*(01/16/19 2:50 PM)[facility] ZJKIIZMPBS8246-52-02 19:50:00<3.1[facility] BidxkppENAHKFSBEI3615-30-81 19:50:00Negative *NA*(01/16/19 2:50 PM)[facility] WwlufobPFMTYZQMJZ4332-51-78 19:50:00Negative *NA*(01/16/19 2:50 PM)[facility]CHE[facility] VASZZ8483-68-28 19:08:568[facility]annCHE[facility] IWMZE6253-65-18 19:08:563.3[facility]annCHE[facility] VPBKG5599-15-78 19:08:34713Ncpcocgb HermannCHEM AXVKT2423-69-25 19:08:5623 [facility]CHE[facility] WDIYF9116-62-25 19:08:5610.1[facility]annCHEM PANEL 2019-01-16 19:08:5612.3[facility] HermannCHEM [id number] 19:08:85869Exqfqzzt HermannCHEM WCQXQ3779-04-80 19:08:5647[facility] HermannCHEM XIUPU9676-78-06 19:08:565.77[facility]annCHEM YXNQK7229-94-01 19:08:45124Xdvuswpj Rupert UWMUUJTBZP4895-37-46 19:08:5626.2[facility] KkagcugAXWBIROFBD1842-12-99 19:08:56 8.3[facility] TxbqixfGEMCJHLHFM5584-21-45 19:08:562.98[facility]annHEMATOLOGY 2019-01-16 19:08:564.6[facility] LsgflrqICATEUJATY3774-18-85 19:08:5616.7[facility] ZqzbcdnLZUIPMBCBU9219-49-79 19:08:5631.8[facility] GmfmuypTZIYBDYMYG4838-23-14 19:08:56 Test Item Value Reference Range Interpretation Comments MCH (test code = MCH) 28.0 pg 27.0-31.0 [facility] FhiaeokNODADZMMLM5377-68-93 19:08:5687.9[facility]annHEMATOLOGY 2019-01-16 19:08:569.1[facility] PxivdujWFVUATDZKR1781-72-93 19:08:91974Ckhniomx QkkchnzBRDAEASFNE1312-99-15 19:08:560.1[facility] BsetquaGDHNLPEGWV3497-47-98 19:08:560.6[facility] OgwyrptTUKVPLEJWP8587-59-07 19:08:560.9[facility] Rupert WQXJZEEBVJ7200-91-49 19:08:5619.1[facility] DtatwrmMSEWZOZQDX4953-55-07 19:08:56 65.9[facility] XgkluudAGGIXHLAFO1593-07-28 19:08:562.3[facility]annHEMATOLOGY 2019-01-16 19:08:5612.1[facility] LzsgcpyBMISIAIFNH7064-69-99 19:08:563.1[facility] ZwxfgrlLVLPKRFAXE5123-67-23 19:08:560.6[facility]annBL[facility]OD BANK RESULTS 2019-01-16 14:35:00Negative (01/16/19 9:35 AM)[facility] 2019-01-16 14:35:00 Test Item Value Reference Range Interpretation Comments PT (test code = PT) 14.1 s 12.0-14.7 [facility] HospitalNxghocaKOMWTXYZJC1835-82-39 14:35:00 Test Item Value Reference Range Interpretation Comments INR (test code = INR) 1.11 1 0.85-1.17 [facility] HospitalDbdwznlDUGXVKCYKZ2505-31-04 14:35:00 Test Item Value Reference Range Interpretation Comments PTT (test code = PTT) 28.3 s 22.9-35.8 [facility]
[2020-09-17] MEDS ORDERED: FUROSEMIDE 20 MG/ 2ML VIAL ONE (00:44)
[2020-09-17 00:58] LABS: Absolute Lymphocytes (CBC) 0.7 K/uL (0.7-4.9); Basophils % 1.1 % (0-1.3); Lymphocytes % 12.3 % (15.3-44.8); MPV 10.2 fL (7.6-11.3); RBC Red Blood Cell Count 3.64 M/uL (3.86-4.86)
[2020-09-17 01:05] LABS: Protime INR 1.44
[2020-09-17 01:15] LABS: Albumin 3.5 g/dL (3.4-5.0); Bilirubin Direct 0.3 mg/dL (0-0.2); Bilirubin Total 1.4 mg/dL (0.2-1.0); Magnesium 1.8 mg/dL (1.8-2.4); Potassium 3.6 mmol/L (3.5-5.1); Troponin (Emerg Dept Use Only) 0.05 ng/mL (0.0-0.045)
--- NOTE | 2020-09-17 02:22 | ER ---
Nurse's Notes [facility] Name: Alma Rosa Corral Age: 65 yrs Sex: Female : 1955 Arrival Date: 09/16/2020 Time: 23:07 Bed 7 Private MD: Diagnosis: Acute pulmonary edema Presentation: 09/16 23:14 Acuity: LILIBETH 3 sg 23:14 Chief complaint: Patient states: I have had a cough, with productive mucous that is sg white at this time and also thick. I have not have had a fever or chills yet Patient's son or daughter states: Starting last night she has had this cough while laying down flat, tonight she was about to have her Peritoneal Dialysis when she couldn't stop coughing, we just dont want whatever this is to turn into a pneumonia. so that why we are here tonight to get seen. Coronavirus screen: cough unrelated to allergies, Client presents with at least one sign or symptom that may indicate coronavirus-19. Standard/surgical mask placed on the client. Provider contacted for isolation considerations. Ebola Screen: Patient negative for fever greater than or equal to 101.5 degrees Fahrenheit, and additional compatible Ebola Virus Disease symptoms Patient denies exposure to infectious person. Patient denies travel to an Ebola-affected area in the 21 days before illness onset. No symptoms or risks identified at this time. Initial Sepsis Screen: Does the patient meet any 2 criteria? No. Patient's initial sepsis screen is negative. Does the patient have a suspected source of infection? No. Patient's initial sepsis screen is negative. Risk Assessment: Do you want to hurt yourself or someone else? Patient reports no desire to harm self or others. Onset of symptoms was September 15, 2020. Care prior to arrival: None. Activity prior to arrival: None. Transition of care: patient was not received from another setting of care. 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 - Social history:: Smoking status: Patient denies any tobacco usage or history of. Patient/guardian denies using alcohol, street drugs, The patient lives with family. - Family history:: not pertinent. Screenin/27 00:54 Abuse screen: Denies threats or abuse. Denies injuries from another. Nutritional rv screening: On. Tuberculosis screening: No symptoms or risk factors identified. Fall Risk None identified. Assessment: 00:54 General: Appears uncomfortable, Behavior is calm, cooperative. Pain: Denies pain. rv Neuro: Level of Consciousness is awake, alert, obeys commands, Oriented to person, place, time, situation. Cardiovascular: Patient's skin is warm and dry. Rhythm is sinus rhythm. Respiratory: Airway is patent Respiratory effort is even, unlabored. Derm: Skin is intact. 02:47 Reassessment: Patient appears in no apparent distress at this time. Patient denies pain mg2 at this time. Patient states feeling better. Vital Signs: 09/16 23:14 BP 178 / 96; Pulse 87; Resp 20 S; Pulse Ox 96% on R/A; Weight 83.91 kg; Height 5 ft. 7 sg in. (170.18 cm); 09/17 02:46 Pulse 74; Resp 18; Temp 98; Pulse Ox 97% on R/A; mg2 09/16 23:14 Body Mass Index 28.97 (83.91 kg, 170.18 cm) sg ED Course: 09/16 23:07 Patient arrived in ED. cf2 23:14 Triage completed. sg 23:14 Arm band placed on. sg 23:40 Robina Ace MD is Attending Physician. ma2 23:42 Brian Pretty RN is Primary Nurse. rv 09/17 00:47 No provider procedures requiring assistance completed. Inserted saline lock: 22 gauge mg2 in right hand, using aseptic technique. Blood collected. 00:53 XRAY Chest (1 view) In Process Unspecified. EDMS 00:53 Abdomen 1 View (KUB) XRAY In Process Unspecified. EDMS 00:55 Patient has correct armband on for positive identification. site monitor on. Pulse rv ox on. NIBP on. 01:03 Door closed. Warm blanket given. mg2 02:21 Byron Grimes DO is Referral Physician. ma2 02:46 IV discontinued, intact, bleeding controlled, No redness/swelling at site. Pressure mg2 dressing applied. Administered Medications: 00:42 Drug: Lasix (furosemide) 20 mg Route: IVP; Site: right hand; mg2 02:34 Follow up: Response: No adverse reaction mg2 Outcome: 02:22 Discharge ordered by . kade 02:47 Discharged to home via wheelchair, with family. mg2 02:47 Condition: stable 02:47 Discharge instructions given to patient, family, Instructed on discharge instructions, follow up and referral plans. medication usage, Demonstrated understanding of instructions, follow-up care, medications, Prescriptions given X 1. 02:49 Patient left the ED. rv Signatures: Dispatcher [employer] EDClayton Kaba RN RN Robina Ace MD MD ma2 [place]ose, Michele, RN RN mg2 Brian Pretty RN RN rv Hilario George 2
--- NOTE | 2020-09-17 02:22 | EDPHYS ---
Physician Documentation [facility] Name: Alma Rosa Corral Age: 65 yrs Sex: Female : 1955 Arrival Date: 09/16/2020 Time: 23:07 Bed 7 Private MD: ED Physician Robina Ace HPI: 09/17 00:22 This 65 yrs old Black Female presents to ER via Ambulatory with complaints of Cough. ma2 00:22 Onset: The symptoms/episode began/occurred gradually, 1 week(s) ago. Severity of ma2 symptoms: At their worst the symptoms were mild, in the emergency department the symptoms are unchanged. Associated signs and symptoms: Pertinent negatives: diarrhea, fever, nausea, rhinorrhea, sore throat. The patient has experienced similar episodes in the past. hx of esrd, has stopped her bumetanide few weeks ago, has mild LE edema nad cough, she had pulmonary edema many times in past.. 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 - Social history:: Smoking status: Patient denies any tobacco usage or history of. Patient/guardian denies using alcohol, street drugs, The patient lives with family. - Family history:: not pertinent. ROS: 09/17 00:22 Constitutional: Negative for fever, chills, and weight loss, Eyes: Negative for injury, ma2 pain, redness, and discharge. All other systems are negative. Exam: 00:22 Constitutional: This is a well developed, well nourished patient who is awake, alert, ma2 and in no acute distress. Head/Face: Normocephalic, atraumatic. Eyes: Pupils equal round and reactive to light, extra-ocular motions intact. Lids and lashes normal. Conjunctiva and sclera are non-icteric and not injected. Cornea within normal limits. Periorbital areas with no swelling, redness, or edema. ENT: Nares patent. No nasal discharge, no septal abnormalities noted. Tympanic membranes are normal and external auditory canals are clear. Oropharynx with no redness, swelling, or masses, exudates, or evidence of obstruction, uvula midline. Mucous membranes moist. Neck: Trachea midline, no thyromegaly or masses palpated, and no cervical lymphadenopathy. Supple, full range of motion without nuchal rigidity, or vertebral point tenderness. No Meningismus. Chest/axilla: Normal chest wall appearance and motion. Nontender with no deformity. No lesions are appreciated. Cardiovascular: Regular rate and rhythm with a normal S1 and S2. No gallops, murmurs, or rubs. Normal PMI, no JVD. No pulse deficits. Respiratory: Lungs have equal breath sounds bilaterally, clear to auscultation and percussion. No rales, rhonchi or wheezes noted. No increased work of breathing, no retractions or nasal flaring. Abdomen/GI: Soft, non-tender, with normal bowel sounds. No distension or tympany. No guarding or rebound. No evidence of tenderness throughout. Skin: Warm, dry with normal turgor. Normal color with no rashes, no lesions, and no evidence of cellulitis. MS/ Extremity: LE edema equal lbilat. pitting 1+.. Pulses equal, no cyanosis. Neurovascular intact. Full, normal range of motion. Neuro: Awake and alert, GCS 15, oriented to person, place, time, and situation. Cranial nerves II-XII grossly intact. Motor strength 5/5 in all extremities. Sensory grossly intact. Cerebellar exam normal. Normal gait. Vital Signs: 09/16 23:14 BP 178 / 96; Pulse 87; Resp 20 S; Pulse Ox 96% on R/A; Weight 83.91 kg; Height 5 ft. 7 sg in. (170.18 cm); 09/17 02:46 Pulse 74; Resp 18; Temp 98; Pulse Ox 97% on R/A; mg2 09/16 23:14 Body Mass Index 28.97 (83.91 kg, 170.18 cm) sg MDM: 09/16 23:40 Patient medically screened. ma2 09/17 00:22 Differential Diagnosis: Bronchitis Upper Respiratory Infection Viral Syndrome Other ma2 pulmonary edema. 02:19 Data reviewed: vital signs, nurses notes. Counseling: I had a detailed discussion with ma2 the patient and/or guardian regarding: the historical points, exam findings, and any diagnostic results supporting the discharge/admit diagnosis, the presence of at least one elevated blood pressure reading (>120/80) during this emergency department visit, the need for outpatient follow up. Response to treatment: the patient's symptoms have markedly improved after treatment. ED course: xray shoes mild right sided pleural effusion and pulmonary edema, patient feels much better after lasix and she urinated, her vs wnl including spo2, will put her back on fluid pills and she will see dr. saucedo in the morning . 09/17 00:12 Order name: Basic Metabolic Panel [facility] 09/17 00:12 Order name: CBC with Diff [facility] 09/17 00:12 Order name: LFT's [facility] 09/17 00:12 Order name: Magnesium; Complete Time: 02: [facility] 09/17 00:12 Order name: NT PRO-BNP; Complete Time: 02:02 [facility] 09/17 00:12 Order name: PT-INR; Complete Time: 02:02 [facility] 09/17 00:12 Order name: Troponin (emerg Dept Use Only); Complete Time: 02: [facility] 09/17 00:12 Order name: XRAY Chest (1 view) [facility] 09/17 00:12 Order name: Abdomen 1 View (KUB) XRAY [facility] 09/17 00:12 Order name: Basic Metabolic Panel; Complete Time: 02:02 [facility] 09/17 00:12 Order name: CBC with Automated Diff; Complete Time: 02:02 [facility] 09/17 00:12 Order name: Liver (Hepatic) Function; Complete Time: 02:02 [facility] 09/17 02:37 Order name: CORONAVIRUS [facility] 09/17 00:12 Order name: EKG; Complete Time: 00:12 [facility] 09/17 00:12 Order name: Cardiac monitoring; Complete Time: 00:42 [facility] 09/17 00:12 Order name: EKG - Nurse/Tech; Complete Time: 00:42 [facility] 09/17 00:12 Order name: IV Saline Lock; Complete Time: 00:42 [facility] 09/17 00:12 Order name: Labs collected and sent; Complete Time: 00:42 [facility] 09/17 00:12 Order name: O2 Per Protocol; Complete Time: 00:43 [facility] 09/17 00:12 Order name: O2 Sat Monitoring; Complete Time: 00:43 [facility] Administered Medications: 00:42 Drug: Lasix (furosemide) 20 mg Route: IVP; Site: right hand; mg2 02:34 Follow up: Response: No adverse reaction mg2 Disposition: 09/17/20 02:22 Discharged to Home. Impression: Acute pulmonary edema. - Condition is Stable. - Discharge Instructions: Pulmonary Edema, [id number]. - Prescriptions for bumetanide 0.5 mg Oral tablet - take 1 tablet by ORAL route once daily; 30 tablet. - Medication Reconciliation Form, Thank You Letter, Antibiotic Education, Prescription Opioid Use form. - Follow up: Byron Saucedo DO; When: Tomorrow; Reason: Continuance of care. Signatures: Dispatcher [employer] EDClayton Kaba RN RN sg Robina Ace MD MD ma2 Familia Doyle RN RN mg2 Brian Pretty RN RN rv Corrections: (The following items were deleted from the chart) 02:49 02:22 09/17/2020 02:22 Discharged to Home. Impression: Acute pulmonary edema. Condition rv is Stable. Forms are Medication Reconciliation Form, Thank You Letter, Antibiotic Education, Prescription Opioid Use. Follow up: Byron Saucedo; When: Tomorrow; Reason: Continuance of care. ma2
--- NOTE | 2020-09-17 09:34 | RAD REPORT ---
EXAM DESCRIPTION: [place] Single View3 12:54 am CLINICAL HISTORY: Congestion COMPARISON: July 2020 FINDINGS: Moderate bilateral pulmonary opacities. Small bilateral pleural effusions The heart is mildly to moderately enlarged IMPRESSION: Moderate bilateral pulmonary opacities could represent pulmonary edema or pneumonia
--- NOTE | 2020-09-17 09:34 | RAD REPORT ---
EXAM DESCRIPTION: RAD - Abdomen 1 View (KUB) - 09/17/2020 12:54 am CLINICAL HISTORY: Abdomen pain. FINDINGS: The bowel gas pattern is unremarkable. Catheter overlies the left abdomen. Multiple round calcifications pelvis probably phleboliths
--- NOTE | 2020-09-17 11:11 | EKG ---
Test Date: 2020-09-17 Test Time: 00:29:09 Product Development Specialist: MANI MEASUREMENT RESULTS: Intervals: Rate: 74 ME: 154 QRSD: 80 QT: 404 QTc: 448 [place]: P: 92 ME: 154 QRS: 58 T: 51 INTERPRETIVE STATEMENTS: Sinus rhythm with premature supraventricular complexes Otherwise normal ECG Compared to ECG 07/29/2020 04:25:03 No significant changes Electronically Signed On 09-17-20 11:11:04 CDT by Geraldo Dias
[2020-09-17 19:58] VITALS: BP 178/96
[2020-09-17 19:59] VITALS: TEMP 98; O2SAT 97
== END 2020-09-17 02:49 | disposition home or self-care (01) ==
LOC: ER 23:05
DX: J81.0 Acute pulmonary edema (principal); Z20.822 Contact with and (suspected) exposure to COVID-19; I12.0 Hypertensive chronic kidney disease with stage 5 chronic kidney disease or end stage renal disease; N18.6 End stage renal disease; Z99.2 Dependence on renal dialysis; Z86.73 Personal history of transient ischemic attack (TIA), and cerebral infarction without residual deficits; Z88.8 Allergy status to other drugs, medicaments and biological substances
CPT/HCPCS: 93005; 85025; 80048; 36415; 83735; 85610; 80076; 84484; 83880; 74018; 71045; 96374; 99284; J1940

== ENCOUNTER 2021-02-05 13:02 | Emergency (ER) | payer OTHER ==
--- OUTSIDE RECORDS SUMMARY | 2021-02-05 13:13 | XMS REPORT | Continuity of Care Document ---
:1955 Author Organization [facility] t Address [facility] [place] [address] Care Team Providers Name Role Phone Vaishnavi CABALLERO Primary Care Physician Renzo Greer MD Attending Clinician Patrice Zheng Attending Clinician SUMANTH Attending Clinician Unavailable Eve Attending Clinician Unavailable Vicente Attending Clinician Unavailable GRUPO JULIO Attending Clinician Unavailable Darius Greer MD Attending Clinician Kristine Allen MD Attending Clinician Darius Figueredo MD Attending Clinician Nadine Jenkins CRNA Attending Clinician DARIUS GREER Attending Clinician Unavailable Doctor Unassigned, Name Attending Clinician Unavailable Oseas Luke Attending Clinician Babak Cerrato Attending Clinician JOSSELYN Admitting Clinician Unavailable Physician, Primary or Family Admitting Clinician UnavailKRISTINE Grimm Admitting Clinician Unavailable Leonard Oakes Jr Admitting Clinician Oseas Luke Admitting Clinician Payers Payer Name Policy Type Policy Effective Date Expiration Date Sour ce Number MEDICAREMEDICARE PART [id number] 2019 jenniferverna A AND 00:00:00 Hospital [id number]/06/2018 [facility] [place] [id number] 2019 [facility] [id number] 00:00:00 Hos pital /06/2019-PresentCommer cial MEDICAREMEDICARE A [id number] 2019 [facility] [id number] 00:00:00 - M edical -PresentMedicare Center [facility] [id number] 2019 [facility] SUPPLEMENT/INDIVIDUAL 00:00:00 - M edical AETNA [facility] [id number] -Present Problems Condition Condition Condition Status Onset Resolution Last Treating Co mments Source Name Details Category Date Date Treatment Clinician Date Cervical Cervical Disease [facility] - stenosis stenosis 00:00: Medica l 00 Center UNK Diagnosis Active 2019-062020-05-26 Mem oria 1-24 07:37:00 l UNK 00:00: Talon 00 Active 05/17/2020 [facility] CATHETER Diagnosis Active 2019-062020-05-26 M emoria DIALYSIS -24 08:06:00 l PERITONEAL CATHETER 00:00: He rmann DIALYSIS 00 PERITONEAL Active 05/17/2020 [facility] ARM PAIN Diagnosis Active 2019-062020-04-13 M emoria 0-13 21:44:00 l ARM PAIN 00:00: Keenan n 00 Active 04/05/[address] SENT Diagnosis Active 2019-062020-04-05 Me moria 0-13 21:18:[address] SENT 00:00: Talon 00 Active 04/05/2020 [facility] NEW Diagnosis Active 2020-07-08 Mem oria EVALUATION 2-10 14:24:00 l NEW 00:00: Talon EVALUATION 00 Active 08/03/2019 [facility] N18.6 Diagnosis Active 2019-03-10 Mem oria 9-16 10:07:00 l N18.6 00:00: [place] 00 Active 03/09/2019 [facility] CKD Diagnosis Active 2019-01-19 Mem oria 01-15 11:41:00 l CKD 00:00: [place] 00 Active 01/15/2019 [facility] 620.2 - Diagnosis Active 2011-062012-06-08 Me moria OVARIAN 0-16 15:31:00 l CYST NE 620.2 - 00:01: Keenan n OVARIAN 00 CYST NE Active 04/08/2012 [facility] [place] FOLLOW UP Diagnosis Active 2012-05-19 Memoria 03-12 10:19:00 l FOLLOW 00:00: [place] UP 00 Active 2 [facility] CANCER OF Diagnosis [facility]01[facility] 01-09 09:50:00 l AMPULLA CANCER 00:00: Talon OF RECTAL 00 AMPULLA Active 01/10/2012 [facility] COLON Diagnosis Active 2012-02-15 [facility] oria CANCER 12-26 13:01:00 l COLON 00:00: Talon CANCER 00 Active 12/27/2011 [facility] Pain in Problem 2020-04-11 Anthony litzy arm, 07:26:40 l unspecifie Pain in Her cardenas d arm, unspecifie d 04/11/2020 [facility] Cerebrovas Problem Resolve 2021-02-03 Memoria cular d 01:48:38 l accident [place] (disorder) Cerebrovas cular accident (disorder) Resolved Problem 02/03/2021 [facility] Hyperlipid Problem Resolve 2021-02-03 Memoria emia d 01:48:38 l (disorder) Keenan n Hyperlipid emia (disorder) Resolved Problem 02/03/2021 [facility] Kidney Problem Resolve 2021-02-03 Anthony litzy disease d 01:48:38 l (disorder) Kidney Herm vin disease (disorder) Resolved [facility] [place] - Problem Active 2012-11-08 Memor ia Cancer of 21:08:25 l colon CA - [place] Cancer of colon Active Problem 11/08/2012 [facility], [facility] [place], [facility] [place] Cholestero Problem Active 2012-11-08 M emoria l 21:08:25 l Talon Cholestero l Active Problem 11/08/2012 [facility], AUBRIELogan [place], DAMIAN Baez H/O: Problem Active 2012-11-08 Memor ia stroke 21:08:25 l H/O: Talon stroke Active Problem 11/08/2012 [facility], OPID Talon, DAMIAN Baez HT - Problem Active 2012-11-08 Memor ia Hypertensi 21:08:25 l on HT - [place] Hypertensi on Active Problem 3 [facility], OPID Talon, DAMIAN Baez Malignant Problem Active 2021-02-03 Me moria tumor of 01:48:38 l colon [place] (disorder) Malignant tumor of colon (disorder) Active Problem 02/03/2021 [facility] Dependence Problem Active 2021-02-03 M emoria on 01:48:38 l peritoneal Keenan n dialysis 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) Active Problem 02/03/2021 [facility] History of Problem Active 2021-02-03 M emoria - CVA 01:48:38 l (context-d History Her cardenas ependent of - CVA category) (context-d ependent category) Active Problem 02/03/2021 [facility] Hypertensi Problem Active 2021-02-03 M emoria ve 01:48:38 l disorder, [place] systemic Hypertensi arterial ve (disorder) disorder, systemic arterial (disorder) Active [facility] Spinal Problem Active 2021-02-03 Memor ia cord 01:48:38 l disorder Spinal Keenan n (disorder) cord disorder (disorder) Active [facility] Cervical Problem Active 2021-02-03 Mem oria myelopathy 01:48:38 l (disorder) Cervical He rmann myelopathy (disorder) Active Problem 02/03/2021 [facility] Hypothyroi Problem Active 2021-02-03 M emoria dism 01:48:38 l (disorder) Keenan n Hypothyroi dism (disorder) Active Problem 02/03/2021 [facility] PAIN IN Diagnosis Active 2020-04-13 Me moria ARM, 21:44:00 l UNSPECIFIE PAIN IN Her cardenas D ARM, UNSPECIFIE D Active [facility] Allergies, Adverse Reactions, Alerts Allergy Allergy Status Severity Reaction(s) Onset Inactive Treating Comm ents Source Name Type Date Date Clinician AMLODIPI Allergy Active ENCGEN N 01-26 14:55: 48 NSAIDS Allergy Active ENCGEN 01-26 14:55: 41 No Known DA Active [facility]ergie 01-08 [facility] Nsaids Drug Active [facility] Allergy 12-30 [facility] - roidal 00:00: Medical Anti-Inf 00 Center lammator y Drug) Amlodipi Propensi Active Itching [facility] 12-15 [facility] - adverse 00:00: Medical reaction 00 Center s amLODIPi amLODIPi Active Memori a ne ne l [place] Social History Social Habit Start Date Stop Date Quantity Comments Source Exposure to Not sure [facility] SARS-CoV-2 (event) Hospit al History SDOH [facility] - Alcohol Std Drinks [facility] History SD[facility] - Alcohol Binge Medical Ca ter Sex Assigned At [facility] Tobacco use and 2021-01-03 2021-01-03 Never used [facility] kes - exposure 00:00:00 00:00:00 [facility] Alcohol intake 2021-01-03 2021-01-[address] [facility] - 00:00:00 00:00:00 non-drinker Medical Cente r (finding) History SDOH 2020-12-15 2020-12-[address] [facility] - Alcohol Frequency 00:00:00 00:00:00 [facility] Social History 2019-01-15 2019-01-15 Kareem dunn 18:23:27 18:23:27 Smoking Status Start Date Stop Date Source Unknown if ever smoked [facility] Never smoker [facility] Medications Ordered Filled Start Stop Current Ordering Indication Dosage Frequency Signature Comments Components Source Medication Medication Date Date Medication? Clinician (SIG) Name Name baclofen Yes 10 mg = 1 M emoria mg oral 8-10 tab, PO, l tablet 23:07: TID, # 90 Keenan n 00 tab, 2 Refill(s), Pharmacy: [facility] #[id number], 160.02, cm, 10/31/20 10:11:00 CDT, Height, 60, kg, 10/31/20 10:11:00 CDT, Weight baclofen 10 2020-0 Yes 10 mg = 1 M emoria mg oral 8-10 tab, PO, l tablet 23:07: TID, # 90 Keenan n 00 tab, 2 Refill(s), Pharmacy: [facility] #[id number], 160.02, cm, 10/31/20 10:11:00 CDT, Height, 60, kg, 10/31/20 10:11:00 CDT, Weight gabapentin 2020-0 Yes 300 mg = 1 M emoria 300 MG Oral 8-10 cap, PO, l Capsule 19:55: Bedtime, # Herm vin 00 30 cap, 3 Refill(s), Pharmacy: [facility] #[id number], 160.02, cm, 10/31/20 10:11:00 CDT, Height, 60, kg, 10/31/20 10:11:00 CDT, Weight gabapentin 2020-0 Yes 300 mg = 1 M emoria 300 MG Oral 8-10 cap, PO, l Capsule 19:55: Bedtime, # Herm vin 00 30 cap, 3 Refill(s), Pharmacy: [facility] #[id number], 160.02, cm, 10/31/20 10:11:00 CDT, Height, 60, kg, 10/31/20 10:11:00 CDT, Weight tizanidine 2020-0 No 4 mg = 1 Mem oria 4 MG Oral 8-10 tab, PO, l Tablet 19:54: Q8H, # 90 Keenan n [Zanaflex] 00 tab, 3 Refill(s), Pharmacy: [facility] #[id number], 160.02, cm, 10/31/20 10:11:00 CDT, Height, 60, kg, 10/31/20 10:11:00 CDT, Weight tizanidine 1-0 No 4 mg = 1 Mem oria 4 MG Oral 8-10 tab, PO, l Tablet 19:54: Q8H, # 90 Keenan n [Zanaflex] 00 tab, 3 Refill(s), Pharmacy: [facility] #[id number], 160.02, cm, 10/31/20 10:11:00 CDT, Height, 60, kg, 10/31/20 10:11:00 CDT, Weight carvedilol Yes TAKE 1 Memor ia 12.5 mg 8-10 TABLET BY l oral tablet 19:49: MOUTH Maribell nn 00 THREE TIMES DAILY apixaban Yes TAKE 1 Memoria 2.5 MG Oral 8-10 TABLET BY l Tablet 19:49: MOUTH Talon [Eliquis] 00 TWICE DAILY carvedilol Yes TAKE 1 Memor ia 12.5 mg 8-10 TABLET BY l oral tablet 19:49: MOUTH Maribell nn 00 THREE TIMES DAILY apixaban Yes TAKE 1 Memoria 2.5 MG Oral 8-10 TABLET BY l Tablet 19:49: MOUTH Talon [Eliquis] 00 TWICE DAILY lisinopril Yes 20 mg = 1 Me moria 20 mg oral 8-10 tab, PO, l tablet 19:21: Daily, # [place] 00 30 tab, 0 Refill(s) methocarbam No 1,000 mg = Memoria ol 500 mg 8-10 2 tab, PO, l oral tablet 19:21: QID, # 56 H ermann 00 tab, 0 Refill(s) pantoprazol Yes 0 Memori a e 40 mg 8-10 Refill(s) l oral 19:21: Talon enteric 00 coated tablet Acetaminoph Yes 1 tab, PO, Memoria en 325 MG / 8-10 Q4H, PRN l Hydrocodone 19:21: Pain, # 30 [place] Bitartrate 00 tab, 0 10 MG Oral Refill(s) Tablet lisinopril Yes 20 mg = 1 Me moria 20 mg oral 8-10 tab, PO, l tablet 19:21: Daily, # Talon 00 30 tab, 0 Refill(s) methocarbam 0 No 1,000 mg = Memoria ol 500 mg 8-10 2 tab, PO, l oral tablet 19:21: QID, # 56 H ermann 00 tab, 0 Refill(s) pantoprazol Yes 0 Memori a e 40 mg 8-10 Refill(s) l oral 19:21: [place] enteric 00 coated tablet Acetaminoph Yes 1 tab, PO, Memoria en 325 MG / 8-10 Q4H, PRN l Hydrocodone 19:21: Pain, # 30 [place] Bitartrate 00 tab, 0 10 MG Oral Refill(s) Tablet apixaban 2020- Yes 2.5mg Q.5D Take 1 [facility] ([facility]liqu[facility] 01-11 08-20 tablet [facility] - 2.5 mg Tab 00:00: 23:59 (2.5 mg Med ical tablet 00 :00 total) by Center mouth 2 (two) times daily for 30 days. cholecalcif 2021- Yes 2000U QD Take [address] karin 2,000 - 07-14 tablet [facility] - unit Tab 00:00: 23:59 (2,000 Medica l 00 :00 Units Center total) by mouth daily. pantoprazol 2020- No 40mg QD Take [address] [facility] [facility] -14 08-13 tablet (40 [facility] - (PROTONIX) 00:00: 23:59 mg total) M edical 40 MG 00 :00 by mouth Center tablet daily for 30 days. hydrALAZINE Yes 25mg Q.[id number] Take [address] (APRESOLINE 7-13 [id number] by mouth 3 [facility] - ) 25 MG 18:53: 3D (three) Medical tablet 50 times Center daily. hydrOXYzine Yes 10mg Take [address] (ATARAX) 10 7-13 by mouth 3 Maria G kes - MG tablet 18:53: (three) Medic al 50 times Center daily as needed for Itching. atorvastati Yes 40mg QD Take [address] n (LIPITOR) 7-13 by mouth Luke s - 40 MG 18:53: nightly. Medical tablet 50 Center levothyroxi Yes 50ug Take [address] ne 7-13 mcg by [facility] - (SYNTHROID, 18:53: mouth Medic al LEVOTHROID) 50 Every Center 50 MCG morning on tablet an empty stomach. bumetanide Yes 1mg QD Take [address] (BUMEX) 1 7-13 by mouth [facility] - MG tablet 18:53: daily. Medica l 50 [place] spironolact Yes 50mg QD Take [address] one 7-13 by mouth [facility] - (ALDACTONE) 18:53: daily. Medi denise 50 MG 50 Center tablet cloNIDine Yes .1mg Take 0.[address] HCL 7-13 mg by [facility] - (CATAPRES) 18:53: mouth Medica l 0.1 MG 50 daily as Center tablet needed. carvediloL Yes 12.5mg Q.[id number] Take 12.[address] (COREG) 7-13 [id number] mg by [facility] - 12.5 MG 18:53: 3D mouth 3 Medical tablet 50 (three) Center times daily . liothyronin Yes 5ug QD Take [address] e (CYTOMEL) 7-13 by mouth Luke s - 5 MCG 18:53: daily. Medical tablet 50 [place] allopurinoL Yes 100mg QD Take [address] (ZYLOPRIM) 7-13 mg by [facility] - 100 MG 18:53: mouth Medical tablet 50 daily. [place] folic Yes Take by [facility] ac/vit 7-13 mouth. [facility] - Bcomp,C/Zn/ 18:53: Medica l vit D3 50 Center (DIALYVITE 800-ULTRA D ORAL) cyanocobala Yes 2500ug QD Take 2,[address] min 2000 7-13 mcg by [facility] - MCG tablet 18:53: mouth Medica l 50 daily. [place] docusate Yes 100mg QD Take [address] sodium 7-13 mg by [facility] - (COLACE) 18:53: mouth Medical 100 MG 50 daily. [place] capsule promethazin Yes 5mL Take [address] e-codeine 7-13 by mouth [facility] - (PHENERGAN 18:53: every 4 Medi denise with 50 (four) Center CODEINE) hours as 6.25-10 needed for mg/5 mL Cough. syrup albuterol Yes 1{ampul Take [address] (ACCUNEB) 7-13 e} ampule by [facility] - 0.63 mg/3 18:53: nebulizati Me dical mL 50 on every 6 Center nebulizer (six) solution hours. budesonide Yes .25mg Q.5D Take 0.[address] (PULMICORT) 7-13 mg by [facility] - 0.25 mg/2 18:53: nebulizati Me dical mL 50 on 2 (two) Center nebulizer times solution daily. ramipriL 2020- No 5mg QD Take [address] (ALTACE) 5 - 07-13 by mouth Luke s - MG capsule 14:07: 00:00 nightly. Me dical 08 :00 Center apixaban 2020- No 2.5mg Q.5D Take 2.[address] (Eliquis) 01-03 07-13 mg by [facility] - 2.5 mg Tab 14:07: 00:00 mouth 2 Med ical tablet 08 :00 (two) Center times daily. lisinopriL 2020- No 20mg QD Take [address] (PRINIVIL,Z - 08-12 tablet (20 L ukes - ESTRIL) 20 00:00: 23:59 mg total) M edical MG tablet 00 :00 by mouth Center nightly for 30 days. hydrALAZINE 2020- No 50mg Take [address] [facility] [facility] (APRESOLINE 01-03 08-12 tablet (50 L ukes - ) 50 MG 00:00: 23:59 mg total) Medi denise tablet 00 :00 by mouth Center every 8 (eight) hours for 30 days. HYDROcodone 2020- No 2{tbl} Take [address] -acetaminop -13 07-23 tablets by L linda - hen (NORCO 00:00: 23:59 mouth Medic al 10-325) 00 :00 every 4 Center 10-325 mg (four) per tablet hours as needed for up to 10 days. Max Daily Amount: 12 tablets Calcitriol Yes 0.25 Memoria 5-10 microgram, l 21:00: PO, [place] 00 Q-M-W-, 0 Refill(s) Calcitriol Yes 0.25 Memoria 5-10 microgram, l 21:00: PO, Q-, 0 Refill(s) Hydralazine Yes TAKE 1 Anthony litzy Hydrochlori 5-10 TABLET BY l de 25 MG 15:15: MOUTH FOUR Her cardenas Oral Tablet 00 TIMES DAILY WITH FOOD Hydralazine Yes TAKE 1 Anthony litzy Hydrochlori 5-10 TABLET BY l de 25 MG 15:15: MOUTH FOUR Her cardeans Oral Tablet 00 TIMES DAILY WITH FOOD Ramipril Yes 5 mg, PO, Anthony litzy 1-27 Daily, 0 l 20:07: Refill(s) Spironolact Yes 1 mg, PO, M emoria one 1-27 Daily, # l 20:07: 60 tab, 0 Refill(s) Dialyvite Yes 0 Memoria 800 Ultra D - Refill(s) l 20:07: Hydralazine 0 No 25 mg, PO, Memoria 1-27 Daily, 0 l 20:07: Refill(s) Ramipril 0 Yes 5 mg, PO, Anthony litzy 1-27 Daily, 0 l 20:07: Refill(s) Spironolact 0 Yes 1 mg, PO, M emoria one 1-27 Daily, # l 20:07: 60 tab, 0 Refill(s) Dialyvite 0 Yes 0 Memoria 800 Ultra D -27 Refill(s) l 20:07: Hydralazine 0 No 25 mg, PO, Memoria 1-27 Daily, 0 l 20:07: Refill(s) glycopyrrol 2019-06 No Route: IV, Memoria ate (ANES) 07-27 Drug form: l 19:23: INJ, ONCE, Stop date: 05/26/20 13:23:00 MEDIA ANALYTICS MANAGER neostigmine 2019-06 No Route: IV, Memoria (ANES) 07-27 Drug form: l 19:23: INJ, ONCE, Stop date: 05/26/20 13:23:00 MEDIA ANALYTICS MANAGER labetalol 2019-06 No Route: IV, Me moria (ANES) 07-27 Drug form: l 19:23: INJ, ONCE, Stop date: 05/26/20 13:23:00 MEDIA ANALYTICS MANAGER glycopyrrol 2019-06 No Route: IV, Memoria ate (ANES) 07-27 Drug form: l 19:23: INJ, ONCE, Stop date: 05/26/20 13:23:00 MEDIA ANALYTICS MANAGER neostigmine 2019-06 No Route: IV, Memoria (ANES) 07-27 Drug form: l 19:23: INJ, ONCE, Stop date: 05/26/20 13:23:00 MEDIA ANALYTICS MANAGER labetalol 2019-06 No Route: IV, Me moria (ANES) 07-27 Drug form: l 19:23: INJ, ONCE, Stop date: 05/26/20 13:23:00 MEDIA ANALYTICS MANAGER Hydralazine 2019-06 No 10 mg, Anthony litzy 07-27 Route: l 19:11: IVP, [place] 00 Q20Min, Dosing Weight 64.545, kg, PRN Elevated BP, Start date: 05/26/20 13:11:00 MEDIA ANALYTICS MANAGER, Duration: 2 doses or times, Stop date: Limited # of times Labetalol 2019-06 No 10 mg, Memori a 07-27 Route: l 19:11: IVP, [place] 00 Q5Min, Dosing Weight 64.545, kg, PRN Elevated BP, Start date: 05/26/20 13:11:00 MEDIA ANALYTICS MANAGER, Duration: 5 doses or times, Stop date: Limited # of times Acetaminoph 2019-06 No 1,000 mg, M emoria en 07-27 Route: PO, l 19:11: Drug form: [place] 00 TAB, ONCE, Dosing Weight 64.545, kg, PRN Pain Score 1-3, Start date: 05/26/20 13:11:00 MEDIA ANALYTICS MANAGER Fentanyl 2019-06 No 25 Memoria 2-03 microgram, l 19:11: Route: Talon 00 IVP, Q5Min, Dosing Weight 64.545, kg, PRN Pain Score 4-6, Priority: Routine, Start date: 05/26/20 13:11:00 MEDIA ANALYTICS MANAGER, Duration: 4 doses or times, Stop date: Limited # of times Hydromorpho 2020-1 No 0.5 mg, Mem oria ne 2- Route: l 19:11: IVP, [place] 00 Q5Min, Dosing Weight 64.545, kg, PRN Pain Score 7-10, Start date: 05/26/20 13:11:00 MEDIA ANALYTICS MANAGER, Duration: 4 doses or times, Stop date: Limited # of times Flumazenil 2019- No 0.2 mg, Anthony litzy 2- Route: l 19:11: IVP, PRN, Talon 00 Dosing Weight 64.545, kg, PRN Benzodiaze pine Reversal, Initial dose, Start date: 05/26/20 13:11:00 MEDIA ANALYTICS MANAGER, Duration: 30 day, Stop date: 06/25/20 13:10:00 MEDIA ANALYTICS MANAGER Naloxone 2019- No 0.4 mg, Memori a 2- Route: l 19:11: IVP, [place] 00 Q2MIN, Dosing Weight 64.545, kg, PRN Narcotic Reversal, Start date: 05/26/20 13:11:00 MEDIA ANALYTICS MANAGER, Duration: 8 doses or times, Stop date: Limited # of times Ondansetron 2019- No 4 mg, Memor ia 2- Route: l 19:11: IVP, ONCE, [place] 00 Dosing Weight 64.545, kg, PRN Nausea & Vomiting, Start date: 05/26/20 13:11:00 MEDIA ANALYTICS MANAGER Promethazin 2019- No 6.25 mg, Me moria e 2- Route: l 19:11: IVPB, Talon 00 ONCE, Dosing Weight 64.545, kg, PRN Nausea & Vomiting, Start date: 05/26/20 13:11:00 MEDIA ANALYTICS MANAGER Hydralazine 2020-1 No 10 mg, Anthony litzy 2-03 Route: l 19:11: IVP, [place] 00 Q20Min, Dosing Weight 64.545, kg, PRN Elevated BP, Start date: 05/26/20 13:11:00 MEDIA ANALYTICS MANAGER, Duration: 2 doses or times, Stop date: Limited # of times Labetalol 2020- No 10 mg, Memori a 2-03 Route: l 19:11: IVP, [place] 00 Q5Min, Dosing Weight 64.545, kg, PRN Elevated BP, Start date: 05/26/20 13:11:00 MEDIA ANALYTICS MANAGER, Duration: 5 doses or times, Stop date: Limited # of times Acetaminoph 2019- No 1,000 mg, M emoria en 2 Route: PO, l 19:11: Drug form: [place] 00 TAB, ONCE, Dosing Weight 64.545, kg, PRN Pain Score 1-3, Start date: 05/26/20 13:11:00 MEDIA ANALYTICS MANAGER Fentanyl 2019-06 No 25 Memoria 2-03 microgram, l 19:11: Route: [place] 00 IVP, Q5Min, Dosing Weight 64.545, kg, PRN Pain Score 4-6, Priority: Routine, Start date: 05/26/20 13:11:00 MEDIA ANALYTICS MANAGER, Duration: 4 doses or times, Stop date: Limited # of times Hydromorpho 2019-06 No 0.5 mg, Mem oria ne 2 Route: l 19:11: IVP, Talon 00 Q5Min, Dosing Weight 64.545, kg, PRN Pain Score 7-10, Start date: 05/26/20 13:11:00 MEDIA ANALYTICS MANAGER, Duration: 4 doses or times, Stop date: Limited # of times Flumazenil 2019-06 No 0.2 mg, Anthony litzy 07-27 Route: l 19:11: IVP, PRN, Dosing Weight 64.545, kg, PRN Benzodiaze pine Reversal, Initial dose, Start date: 05/26/20 13:11:00 MEDIA ANALYTICS MANAGER, Duration: 30 day, Stop date: 06/25/20 13:10:00 MEDIA ANALYTICS MANAGER Naloxone 2019- No 0.4 mg, Memori a 07-27 Route: l 19:11: IVP, [place] 00 Q2MIN, Dosing Weight 64.545, kg, PRN Narcotic Reversal, Start date: 05/26/20 13:11:00 MEDIA ANALYTICS MANAGER, Duration: 8 doses or times, Stop date: Limited # of times Ondansetron 2019-06 No 4 mg, Memor ia 2- Route: l 19:11: IVP, ONCE, Talon 00 Dosing Weight 64.545, kg, PRN Nausea & Vomiting, Start date: 05/26/20 13:11:00 MEDIA ANALYTICS MANAGER Promethazin 2019-06 No 6.25 mg, Me moria e 2- Route: l 19:11: IVPB, Talon 00 ONCE, Dosing Weight 64.545, kg, PRN Nausea & Vomiting, Start date: 05/26/20 13:11:00 MEDIA ANALYTICS MANAGER ePHEDrine 2019-06 No Route: IV, Me moria (ANES) 2-03 Drug form: l 18:27: INJ, ONCE, Stop date: 05/26/20 12:27:00 MEDIA ANALYTICS MANAGER ePHEDrine 2019-06 No Route: IV, Me moria (ANES) 2- Drug form: l 18:27: INJ, ONCE, Stop date: 05/26/20 12:27:00 MEDIA ANALYTICS MANAGER dexamethaso 2019-06 No Route: IV, Memoria ne (ANES) 2- Drug form: l 17:57: INJ, ONCE, Stop date: 05/26/20 11:57:00 MEDIA ANALYTICS MANAGER ondansetron 2019-06 No Route: IV, Memoria (ANES) 2- Drug form: l 17:57: INJ, ONCE, Stop date: 05/26/20 11:57:00 MEDIA ANALYTICS MANAGER dexamethaso 2019-06 No Route: IV, Memoria ne (ANES) 2- Drug form: l 17:57: INJ, ONCE, Stop date: 05/26/20 11:57:00 MEDIA ANALYTICS MANAGER ondansetron 2019-06 No Route: IV, Memoria (ANES) 2- Drug form: l 17:57: INJ, ONCE, Stop date: 05/26/20 11:57:00 MEDIA ANALYTICS MANAGER fentaNYL 2019-06 No Route: IV, Mem oria (ANES) 2- Drug form: l 17:52: INJ, ONCE, Stop date: 05/26/20 11:52:00 MEDIA ANALYTICS MANAGER lidocaine 2019-06 No Route: IV, Me moria (ANES) 2-03 Drug form: l 17:52: INJ, ONCE, Stop date: 05/26/20 11:52:00 MEDIA ANALYTICS MANAGER propofol 2019-06 No Route: IV, Mem oria (ANES) 2- Drug form: l 17:52: INJ, ONCE, Stop date: 05/26/20 11:52:00 MEDIA ANALYTICS MANAGER rocuronium 2019-06 No Route: IV, M emoria (ANES) 2- Drug form: l 17:52: INJ, ONCE, Stop date: 05/26/20 11:52:00 MEDIA ANALYTICS MANAGER ceFAZolin 2019-06 No Route: IV, Me moria (ANES) 2 Drug form: l 17:52: INJ, ONCE, Stop date: 05/26/20 11:52:00 MEDIA ANALYTICS MANAGER norepinephr 2019-06 No Route: IV, Memoria ine (ANES) 07-27 Drug form: l 17:52: INJ, ONCE, Stop date: 05/26/20 11:52:00 MEDIA ANALYTICS MANAGER fentaNYL 2019-06 No Route: IV, Mem oria (ANES) 07-27 Drug form: l 17:52: INJ, ONCE, Stop date: 05/26/20 11:52:00 MEDIA ANALYTICS MANAGER lidocaine 2019-06 No Route: IV, Me moria (ANES) 2 Drug form: l 17:52: INJ, ONCE, Stop date: 05/26/20 11:52:00 MEDIA ANALYTICS MANAGER propofol 2019-06 No Route: IV, Mem oria (ANES) 07-27 Drug form: l 17:52: INJ, ONCE, Stop date: 05/26/20 11:52:00 MEDIA ANALYTICS MANAGER rocuronium 2019-06 No Route: IV, M emoria (ANES) 2- Drug form: l 17:52: INJ, ONCE, Stop date: 05/26/20 11:52:00 MEDIA ANALYTICS MANAGER ceFAZolin 2019-06 No Route: IV, Me moria (ANES) 2 Drug form: l 17:52: INJ, ONCE, Stop date: 05/26/20 11:52:00 MEDIA ANALYTICS MANAGER norepinephr 2019-06 No Route: IV, Memoria ine (ANES) 2- Drug form: l 17:52: INJ, ONCE, Stop date: 05/26/20 11:52:00 MEDIA ANALYTICS MANAGER vancomycin 2019-06 No Route: IV, M emoria (ANES) 1000 07-27 Drug form: l mg 16:50: INJ, Start Talon 00 date: 05/26/20 10:50:00 MEDIA ANALYTICS MANAGER, Stop date: 05/26/20 11:50:00 MEDIA ANALYTICS MANAGER Sodium 2019- No Route: IV, Memor ia Chloride 2-03 Total l 0.9% IV 16:50: Volume: Talon (ANES) 500 00 500, Start mL date: 05/26/20 10:50:00 MEDIA ANALYTICS MANAGER, Stop date: 05/26/20 11:50:00 MEDIA ANALYTICS MANAGER vancomycin 2019-06 No Route: IV, M nubiaa (ANES) 1000 2-03 Drug form: l mg 16:50: INJ, Start Talon 00 date: 05/26/20 10:50:00 MEDIA ANALYTICS MANAGER, Stop date: 05/26/20 11:50:00 MEDIA ANALYTICS MANAGER Sodium 2019-06 No Route: IV, Memor ia Chloride 2-03 Total l 0.9% IV 16:50: Volume: Ulysses (ANES) 500 00 500, Start mL date: 05/26/20 10:50:00 MEDIA ANALYTICS MANAGER, Stop date: 05/26/20 11:50:00 MEDIA ANALYTICS MANAGER Calcium 2019-06 No 1,000 mL, Memor ia Chloride 2-03 Rate: 75 l 0.0014 15:44: ml/hr, Ulysses MEQ/ML / 00 Infuse Potassium over: 13.3 Chloride hr, Route: 0.004 IV, Dosing MEQ/ML / Weight Sodium 66.818 kg, Chloride Total 0.103 Volume: MEQ/ML / 1,000, Sodium Start Lactate date: 0.028 05/26/20 MEQ/ML 9:44:00 Injectable MEDIA ANALYTICS MANAGER, Solution Duration: 30 day, Stop date: 06/25/20 9:43:00 MEDIA ANALYTICS MANAGER, 1.74, m2 Sodium 2019-06 No 500 mL, Memoria Chloride 2-03 Rate: 75 l 0.9% IV 500 15:44: ml/hr, Herm vin mL 00 Infuse over: 6.7 hr, Route: IV, Dosing Weight 66.818 kg, Total Volume: 500, Start date: 05/26/20 9:44:00 MEDIA ANALYTICS MANAGER, Duration: 30 day, Stop date: 06/25/20 9:43:00 MEDIA ANALYTICS MANAGER, 1.74, m2 Calcium 2019-06 No 1,000 mL, Memor ia Chloride 2-03 Rate: 75 l 0.0014 15:44: ml/hr, Talon MEQ/ML / 00 Infuse Potassium over: 13.3 Chloride hr, Route: 0.004 IV, Dosing MEQ/ML / Weight Sodium 66.818 kg, Chloride Total 0.103 Volume: MEQ/ML / 1,000, Sodium Start Lactate date: 0.028 05/26/20 MEQ/ML 9:44:00 Injectable MEDIA ANALYTICS MANAGER, Solution Duration: 30 day, Stop date: 06/25/20 9:43:00 MEDIA ANALYTICS MANAGER, 1.74, m2 Sodium 2019-06 No 500 mL, Memoria Chloride - Rate: 75 l 0.9% IV 500 15:44: ml/hr, Herm vin mL 00 Infuse over: 6.7 hr, Route: IV, Dosing Weight 66.818 kg, Total Volume: 500, Start date: 05/26/20 9:44:00 MEDIA ANALYTICS MANAGER, Duration: 30 day, Stop date: 06/25/20 9:43:00 MEDIA ANALYTICS MANAGER, 1.74, m2 Vancomycin 2019-06 No 2000 mg: Me moria 2- infuse l 21:00: over 2.5 Ulysses 00 hours For adult patients only: Round to nearest 250 mg per Medical Staff approval MEDICATION WASTE Product Size: 1000 mg Product Wasted: ___ mg Ancef + 2019-06 No Notes: Memoria sterile - (Same As: l water 20 mL 21:00: Ancef, Herm vin 00 Kefzol) MEDICATION WASTE Product Size: 1000 mg Product Wasted: ___ mg Vancomycin 2019-06 No 2000 mg: Me moria 2-02 infuse l 21:00: over 2.5 Talon 00 hours For adult patients only: Round to nearest 250 mg per Medical Staff approval MEDICATION WASTE Product Size: 1000 mg Product Wasted: ___ mg Ancef + 2019-06 No Notes: Memoria sterile 2-02 (Same As: l water 20 mL 21:00: Ancef, Herm vin 00 Kefzol) MEDICATION WASTE Product Size: 1000 mg Product Wasted: ___ mg Oxycodone 2019-06 No 5 mg, Memoria Hydrochlori 1-24 Route: PO, l de 5 MG 21:27: Drug form: Herm vin Oral Tablet 00 TAB, Q4H, Dosing Weight 66.818, kg, PRN Pain Score 4-6, Start date: 05/17/20 15:27:00 MEDIA ANALYTICS MANAGER, Duration: 30 day, Stop date: 06/16/20 15:26:00 MEDIA ANALYTICS MANAGER Morphine 2020-1 No 2 mg, Memoria -24 Route: l 21:27: IVP, Ulysses 00 Q5Min, Dosing Weight 66.818, kg, PRN Pain Score 4-6, Start date: 05/17/20 15:27:00 MEDIA ANALYTICS MANAGER, Duration: 5 doses or times, Stop date: Limited # of times Fentanyl 2019- No 25 Memoria 1-24 microgram, l 21:27: Route: Ulysses 00 IVP, Q5Min, Dosing Weight 66.818, kg, PRN Pain Score 4-6, Priority: Routine, Start date: 05/17/20 15:27:00 MEDIA ANALYTICS MANAGER, Duration: 4 doses or times, Stop date: Limited # of times Hydromorpho 2019-1 No 0.5 mg, Mem oria ne 24 Route: l 21:27: IVP, Talon 00 Q5Min, Dosing Weight 66.818, kg, PRN Pain Score 7-10, Start date: 05/17/20 15:27:00 MEDIA ANALYTICS MANAGER, Duration: 4 doses or times, Stop date: Limited # of times Flumazenil 2019-1 No 0.2 mg, Anthony litzy 24 Route: l 21:27: IVP, PRN, Ulysses 00 Dosing Weight 66.818, kg, PRN Benzodiaze pine Reversal, Initial dose, Start date: 05/17/20 15:27:00 MEDIA ANALYTICS MANAGER, Duration: 30 day, Stop date: 06/16/20 15:26:00 MEDIA ANALYTICS MANAGER Naloxone 2020-1 No 0.4 mg, Memori a -24 Route: l 21:27: IVP, Talon 00 Q2MIN, Dosing Weight 66.818, kg, PRN Narcotic Reversal, Start date: 05/17/20 15:27:00 MEDIA ANALYTICS MANAGER, Duration: 8 doses or times, Stop date: Limited # of times Ephedrine 2020-1 No 5 mg, Memoria -24 Route: l 21:27: IVP, Ulysses 00 Q5Min, Dosing Weight 66.818, kg, PRN Low Blood Pressure, Start date: 05/17/20 15:27:00 MEDIA ANALYTICS MANAGER, Duration: 30 day, Stop date: 06/16/20 15:26:00 MEDIA ANALYTICS MANAGER Albuterol 2019-06 No 2.49 mg, Anthony litzy 0.83 MG/ML 07-17 Route: l Inhalant 21:27: NEB, Ulysses Solution 00 Q20Min, Dosing Weight 66.818, kg, PRN Wheezing, Priority: STAT, Start date: 05/17/20 15:27:00 MEDIA ANALYTICS MANAGER, Duration: 30 day, Stop date: 06/16/20 15:26:00 MEDIA ANALYTICS MANAGER Diphenhydra 2019-06 No 12.5 mg, Me moria mine 07-17 Route: l 21:27: IVP, Drug Talon 00 form: INJ, Q6H, Dosing Weight 66.818, kg, PRN Itching, Start date: 05/17/20 15:27:00 MEDIA ANALYTICS MANAGER, Duration: 30 day, Stop date: 06/16/20 15:26:00 MEDIA ANALYTICS MANAGER Ondansetron 2019-06 No 4 mg, Memor ia 07-17 Route: l 21:27: IVP, ONCE, Talon Dosing Weight 66.818, kg, PRN Nausea & Vomiting, Start date: 05/17/20 15:27:00 MEDIA ANALYTICS MANAGER Sodium 2019-06 Yes 500 mL, Memoria Chloride 07-17 Infuse l 0.9% 21:27: Over: 20 Ulysses (Bolus) IV 00 minutes, Route: IV, ONCE, Dosing Weight 66.818 kg, Start date: 05/17/20 15:27:00 MEDIA ANALYTICS MANAGER, Stop date: 05/17/20 15:27:00 MEDIA ANALYTICS MANAGER Hydralazine 2019-06 No 10 mg, Anthony litzy 07-17 Route: l 21:27: IVP, Talon 00 Q20Min, Dosing Weight 66.818, kg, PRN Elevated BP, Start date: 05/17/20 15:27:00 MEDIA ANALYTICS MANAGER, Duration: 2 doses or times, Stop date: Limited # of times Acetaminoph 2019-06 No 1,000 mg, M emoria en 07-17 Route: PO, l 21:27: Drug form: Talon 00 TAB, ONCE, Dosing Weight 66.818, kg, PRN Pain Score 1-3, Start date: 05/17/20 15:27:00 MEDIA ANALYTICS MANAGER Albuterol 2019-06 No 2.49 mg, Anthony litzy 0.83 MG/ML 07-17 Route: l Inhalant 21:27: NEB, Ulysses Solution 00 Q20Min, Dosing Weight 66.818, kg, PRN Wheezing, Priority: STAT, Start date: 05/17/20 15:27:00 MEDIA ANALYTICS MANAGER, Duration: 30 day, Stop date: 06/16/20 15:26:00 MEDIA ANALYTICS MANAGER Diphenhydra 2019-06 No 12.5 mg, Me moria mine 07-17 Route: l 21:27: IVP, Drug form: INJ, Q6H, Dosing Weight 66.818, kg, PRN Itching, Start date: 05/17/20 15:27:00 MEDIA ANALYTICS MANAGER, Duration: 30 day, Stop date: 06/16/20 15:26:00 MEDIA ANALYTICS MANAGER Ondansetron 2019-06 No 4 mg, Memor ia 07-17 Route: l 21:27: IVP, ONCE, Dosing Weight 66.818, kg, PRN Nausea & Vomiting, Start date: 05/17/20 15:27:00 MEDIA ANALYTICS MANAGER Sodium 2019-06 Yes 500 mL, Memoria Chloride 07-17 Infuse l 0.9% 21:27: Over: 20 Talon (Bolus) IV 00 minutes, Route: IV, ONCE, Dosing Weight 66.818 kg, Start date: 05/17/20 15:27:00 MEDIA ANALYTICS MANAGER, Stop date: 05/17/20 15:27:00 MEDIA ANALYTICS MANAGER Hydralazine 2019-06 No 10 mg, Anthony litzy 07-17 Route: l 21:27: IVP, Ulysses 00 Q20Min, Dosing Weight 66.818, kg, PRN Elevated BP, Start date: 05/17/20 15:27:00 MEDIA ANALYTICS MANAGER, Duration: 2 doses or times, Stop date: Limited # of times Acetaminoph 2019-06 No 1,000 mg, M emoria en 07-17 Route: PO, l 21:27: Drug form: Ulysses 00 TAB, ONCE, Dosing Weight 66.818, kg, PRN Pain Score 1-3, Start date: 05/17/20 15:27:00 MEDIA ANALYTICS MANAGER Oxycodone 2019-06 No 5 mg, Memoria Hydrochlori 24 Route: PO, l de 5 MG 21:27: Drug form: Herm vin Oral Tablet 00 TAB, Q4H, Dosing Weight 66.818, kg, PRN Pain Score 4-6, Start date: 05/17/20 15:27:00 MEDIA ANALYTICS MANAGER, Duration: 30 day, Stop date: 06/16/20 15:26:00 MEDIA ANALYTICS MANAGER Morphine 2020-1 No 2 mg, Memoria 1-24 Route: l 21:27: IVP, Talon 00 Q5Min, Dosing Weight 66.818, kg, PRN Pain Score 4-6, Start date: 05/17/20 15:27:00 MEDIA ANALYTICS MANAGER, Duration: 5 doses or times, Stop date: Limited # of times Fentanyl 2019- No 25 Memoria 1-24 microgram, l 21:27: Route: Ulysses 00 IVP, Q5Min, Dosing Weight 66.818, kg, PRN Pain Score 4-6, Priority: Routine, Start date: 05/17/20 15:27:00 MEDIA ANALYTICS MANAGER, Duration: 4 doses or times, Stop date: Limited # of times Hydromorpho 2019- No 0.5 mg, Mem oria ne 24 Route: l 21:27: IVP, Ulysses 00 Q5Min, Dosing Weight 66.818, kg, PRN Pain Score 7-10, Start date: 05/17/20 15:27:00 MEDIA ANALYTICS MANAGER, Duration: 4 doses or times, Stop date: Limited # of times Flumazenil 2019- No 0.2 mg, Anthony litzy 24 Route: l 21:27: IVP, PRN, Talon 00 Dosing Weight 66.818, kg, PRN Benzodiaze pine Reversal, Initial dose, Start date: 05/17/20 15:27:00 MEDIA ANALYTICS MANAGER, Duration: 30 day, Stop date: 06/16/20 15:26:00 MEDIA ANALYTICS MANAGER Naloxone 2020-1 No 0.4 mg, Memori a 24 Route: l 21:27: IVP, Talon 00 Q2MIN, Dosing Weight 66.818, kg, PRN Narcotic Reversal, Start date: 05/17/20 15:27:00 MEDIA ANALYTICS MANAGER, Duration: 8 doses or times, Stop date: Limited # of times Ephedrine 2020-1 No 5 mg, Memoria -24 Route: l 21:27: IVP, Talon 00 Q5Min, Dosing Weight 66.818, kg, PRN Low Blood Pressure, Start date: 05/17/20 15:27:00 MEDIA ANALYTICS MANAGER, Duration: 30 day, Stop date: 06/16/20 15:26:00 MEDIA ANALYTICS MANAGER fentaNYL 2019-06 No Route: IV, Mem oria (ANES) 1-24 Drug form: l 18:18: INJ, ONCE, Stop date: 05/17/20 12:18:00 MEDIA ANALYTICS MANAGER propofol 2019-06 No Route: IV, Mem oria (ANES) 1-24 Drug form: l 18:18: INJ, ONCE, Stop date: 05/17/20 12:18:00 MEDIA ANALYTICS MANAGER fentaNYL 2019-06 No Route: IV, Mem oria (ANES) 1-24 Drug form: l 18:18: INJ, ONCE, Stop date: 05/17/20 12:18:00 MEDIA ANALYTICS MANAGER propofol 2019-06 No Route: IV, Mem oria (ANES) 1-24 Drug form: l 18:18: INJ, ONCE, Stop date: 05/17/20 12:18:00 MEDIA ANALYTICS MANAGER ceFAZolin 2019-06 No Route: IV, Me moria (ANES) 1-24 Drug form: l 18:08: INJ, ONCE, Stop date: 05/17/20 12:08:00 MEDIA ANALYTICS MANAGER Sodium 2020- No Route: IV, Memor ia Chloride 1-24 Total l 0.9% IV 18:08: Volume: Ulysses (ANES) 500 00 500, Start mL date: 05/17/20 12:08:00 MEDIA ANALYTICS MANAGER, Stop date: 05/17/20 13:08:00 MEDIA ANALYTICS MANAGER ceFAZolin 2019-06 No Route: IV, Me moria (ANES) 1-24 Drug form: l 18:08: INJ, ONCE, Stop date: 05/17/20 12:08:00 MEDIA ANALYTICS MANAGER Sodium 2020- No Route: IV, Memor ia Chloride 1-24 Total l 0.9% IV 18:08: Volume: Ulysses (ANES) 500 00 500, Start mL date: 05/17/20 12:08:00 MEDIA ANALYTICS MANAGER, Stop date: 05/17/20 13:08:00 MEDIA ANALYTICS MANAGER midazolam 2020- No Route: IV, Me moria (ANES) 1-24 Drug form: l 18:03: SOLN, Ulysses 00 ONCE, Stop date: 05/17/20 12:03:00 MEDIA ANALYTICS MANAGER midazolam 2019-06 No Route: IV, moria (ANES) 07-17 Drug form: l 18:03: SOLN, Talon 00 ONCE, Stop date: 05/17/20 12:03:00 MEDIA ANALYTICS MANAGER vancomycin 2019-06 No Route: IV, Keerthi trujillo (ANES) 1000 07-17 Drug form: l mg 17:46: INJ, Start Talon 00 date: 05/17/20 11:46:00 MEDIA ANALYTICS MANAGER, Stop date: 05/17/20 12:46:00 MEDIA ANALYTICS MANAGER vancomycin 2019-06 No Route: IV, Keerthi perezria (ANES) 1000 07-17 Drug form: l mg 17:46: INJ, Start Talon 00 date: 05/17/20 11:46:00 MEDIA ANALYTICS MANAGER, Stop date: 05/17/20 12:46:00 MEDIA ANALYTICS MANAGER Calcium 2019-06 No 1,000 mL, Memor ia Chloride 07-17 Rate: 75 l 0.0014 16:07: ml/hr, Talon MEQ/ML / 00 Infuse Potassium over: 13.3 Chloride hr, Route: 0.004 IV, Dosing MEQ/ML / Weight Sodium 66.818 kg, Chloride Total 0.103 Volume: MEQ/ML / 1,000, Sodium Start Lactate date: 0.028 05/17/20 MEQ/ML 10:07:00 Injectable MEDIA ANALYTICS MANAGER, Solution Duration: 30 day, Stop date: 06/16/20 10:06:00 MEDIA ANALYTICS MANAGER, 1.74, m2 Calcium 2019-06 No 1,000 mL, Memor ia Chloride 07-17 Rate: 75 l 0.0014 16:07: ml/hr, Ulysses MEQ/ML / 00 Infuse Potassium over: 13.3 Chloride hr, Route: 0.004 IV, Dosing MEQ/ML / Weight Sodium 66.818 kg, Chloride Total 0.103 Volume: MEQ/ML / 1,000, Sodium Start Lactate date: 0.028 05/17/20 MEQ/ML 10:07:00 Injectable MEDIA ANALYTICS MANAGER, Solution Duration: 30 day, Stop date: 06/16/20 10:06:00 MEDIA ANALYTICS MANAGER, 1.74, m2 Vancomycin 2019-06 No 1 gm, Memori a 07-16 Route: l 23:00: IVPB, Drug Talon 00 form: INJ, PRE OP, Dosing Weight 63.636, kg, Start date: 05/16/20 17:00:00 MEDIA ANALYTICS MANAGER, Duration: 1 day, Stop date: 05/17/20 16:59:00 MEDIA ANALYTICS MANAGER, ABX Indication : Surgical Prophylaxi s Ancef 2019-06 No 2 gm, Memoria 07-16 Route: l 23:00: IVPB, PRE Ulysses 00 OP, Dosing Weight 63.636, kg, Start date: 05/16/20 17:00:00 MEDIA ANALYTICS MANAGER, Duration: 1 day, Stop date: 05/17/20 16:59:00 MEDIA ANALYTICS MANAGER, ABX Indication : Surgical Prophylaxi s Vancomycin 2019-06 No 1 gm, Memori a 07-16 Route: l 23:00: IVPB, Drug Atlon form: INJ, PRE OP, Dosing Weight 63.636, kg, Start date: 05/16/20 17:00:00 MEDIA ANALYTICS MANAGER, Duration: 1 day, Stop date: 05/17/20 16:59:00 MEDIA ANALYTICS MANAGER, ABX Indication : Surgical Prophylaxi s Ancef 2019-06 No 2 gm, Memoria 07-16 Route: l 23:00: IVPB, PRE Talon 00 OP, Dosing Weight 63.636, kg, Start date: 05/16/20 17:00:00 MEDIA ANALYTICS MANAGER, Duration: 1 day, Stop date: 05/17/20 16:59:00 MEDIA ANALYTICS MANAGER, ABX Indication : Surgical Prophylaxi s Clonidine 2019-06 Yes 0.3 mg = 1 Me moria Hydrochlori 0-16 tab, PO, l de 0.3 MG 18:03: TID, 0 Keenan n Oral Tablet 00 Refill(s) ferrous 2019-06 Yes 325 mg = 1 Anthony litzy sulfate 325 0-16 tab, PO, l mg oral 18:03: Daily, # Keenan n enteric 00 30 tab, 0 coated Refill(s), tablet Pharmacy: [facility] #[id number], 170.18, cm, 04/05/20 21:48:00 CDT, Height, 63.636, kg, 04/05/20 21:48:00 CDT, Weight Clonidine 2019-06 Yes 0.3 mg = 1 Me moria Hydrochlori 0-16 tab, PO, l de 0.3 MG 18:03: TID, 0 Keenan n Oral Tablet 00 Refill(s) ferrous 2019-06 Yes 325 mg = 1 Anthony litzy sulfate 325 0-16 tab, PO, l mg oral 18:03: Daily, # Keenan n enteric 00 30 tab, 0 coated Refill(s), tablet Pharmacy: [facility] #[id number], 170.18, cm, 04/05/20 21:48:00 CDT, Height, 63.636, kg, 04/05/20 21:48:00 CDT, Weight Nephro-Flash 2019-06 No Notes: Anthony litzy Rx 0-16 (Same as: l 14:00: Nephro-Vit Talon 00 e Rx and Diatx) Give with food. Nephro-Flash 2019-06 No Notes: Anthony litzy Rx 0-16 (Same as: l 14:00: Nephro-Vit Ulysses 00 e Rx and Diatx) Give with food. atorvastati 2019-06 No Notes: Anthony litzy n 0-15 (Same as: l 02:00: Lipitor) atorvastati 2019-06 No Notes: Anthony litzy n 0-15 (Same as: l 02:00: Lipitor) Dilaudid 2019-06 No Notes: Memoria 0-15 (Same as: l 01:19: Dilaudid) Dilaudid 2019-06 No Notes: Memoria 0-15 (Same as: l 01:19: Dilaudid) ceFAZolin 2019-06 No Route: IV, Me moria (ANES) 0-14 Drug form: l 22:09: INJ, ONCE, Stop date: 04/06/20 17:09:00 CDT ceFAZolin 2019-06 No Route: IV, Me moria (ANES) 0-14 Drug form: l 22:09: INJ, ONCE, Stop date: 04/06/20 17:09:00 CDT glycopyrrol 2019-06 [...] SOLN, ONCE, Stop date: 04/06/20 16:50:00 CDT glycopyrrol 2019-06 No Route: IV, Memoria [...] INJ, ONCE, Stop date: 04/06/20 16:32:00 CDT protamine 2019-06 No Route: IV, Me moria (ANES) 0-14 Drug form: l 21:32: INJ, ONCE, Stop date: 04/06/20 16:32:00 CDT normal 2019-06 No 1,000 mL, Memori a saline 0.9% 0-14 Rate: 100 l IV 1,000 mL 21:26: ml/hr, Herm vin Infuse over: 10 hr, Route: IV, Dosing Weight 63.636 kg, Total Volume: 1,000, Start date: 04/06/20 16:26:00 CDT, Duration: 30 day, Stop date: 05/06/20 16:25:00 MEDIA ANALYTICS MANAGER, 1.74, m2, 0 normal 2019-06 No 1,000 mL, Memori a saline 0.9% 0-14 Rate: 100 l IV 1,000 mL 21:26: ml/hr, Herm vin Infuse over: 10 hr, Route: IV, Dosing Weight 63.636 kg, Total Volume: 1,000, Start date: 04/06/20 16:26:00 CDT, Duration: 30 day, Stop date: 05/06/20 16:25:00 MEDIA ANALYTICS MANAGER, 1.74, m2, 0 heparin 2019-06 No Notes: Memoria 0-14 porcine l 21:00: heparin heparin 2019-06 No Notes: Memoria 0-14 porcine l 21:00: heparin heparin 2019-06 No Route: IV, Anthony litzy (ANES) 0-14 Drug form: l 20:08: INJ, ONCE, Stop date: 04/06/20 15:08:00 CDT heparin 2019-06 No Route: IV, Anthony litzy (ANES) 0-14 Drug form: l 20:08: INJ, ONCE, Stop date: 04/06/20 15:08:00 CDT ondansetron 2019-06 No Route: IV, Memoria (ANES) 0-14 Drug form: l 20:03: INJ, ONCE, Stop date: 04/06/20 15:03:00 CDT ondansetron 2019-06 No Route: IV, Memoria (ANES) 0-14 Drug form: l 20:03: INJ, ONCE, Stop date: 04/06/20 15:03:00 CDT rocuronium 2019-06 No Route: IV, M emoria (ANES) 0-14 Drug form: l 19:53: INJ, ONCE, Stop date: 04/06/20 14:53:00 CDT rocuronium 2019-06 No Route: IV, M emoria (ANES) 0-14 Drug form: l 19:53: INJ, ONCE, Stop date: 04/06/20 14:53:00 CDT ePHEDrine 2019-06 No Route: IV, Me moria (ANES) 0-14 Drug form: l 19:48: INJ, ONCE, Stop date: 04/06/20 14:48:00 CDT ePHEDrine 2019-06 No Route: IV, Me moria (ANES) 0-14 Drug form: l 19:48: INJ, ONCE, Stop date: 04/06/20 14:48:00 CDT propofol 2019-06 No Route: IV, Mem oria (ANES) 0-14 Drug form: l 19:43: INJ, ONCE, Talon 00 Stop date: 04/06/20 14:43:00 CDT lidocaine 2019-06 No Route: IV, Me moria (ANES) 0-14 Drug form: l 19:43: INJ, ONCE, Stop date: 04/06/20 14:43:00 CDT propofol 2019-06 No Route: IV, Mem oria (ANES) 0-14 Drug form: l 19:43: INJ, ONCE, Stop date: 04/06/20 14:43:00 CDT lidocaine 2019-06 No Route: IV, Me moria (ANES) 0-14 Drug form: l 19:43: INJ, ONCE, Stop date: 04/06/20 14:43:00 CDT midazolam 2019-06 No Route: IV, Me moria (ANES) 0-14 Drug form: l 19:38: SOLN, Ulysses 00 ONCE, Stop date: 04/06/20 14:38:00 CDT fentaNYL 2019-06 No Route: IV, Mem oria (ANES) 0-14 Drug form: l 19:38: INJ, ONCE, Stop date: 04/06/20 14:38:00 CDT Amidate 2019-06 No Route: IV, Anthony litzy (ANES) 0-14 Drug form: l 19:38: INJ, ONCE, Stop date: 04/06/20 14:38:00 CDT midazolam 2019-06 No Route: IV, Me moria (ANES) 0-14 Drug form: l 19:38: SOLN, Ulysses 00 ONCE, Stop date: 04/06/20 14:38:00 CDT fentaNYL 2020 No Route: IV, Mem oria (ANES) 0-14 Drug form: l 19:38: INJ, ONCE, Ulysses 00 Stop date: 04/06/20 14:38:00 CDT Amidate 2019-06 No Route: IV, Anthony litzy (ANES) 0-14 Drug form: l 19:38: INJ, ONCE, Talon 00 Stop date: 04/06/20 14:38:00 CDT ceFAZolin 2019-06 No Route: IV, moria (ANES) 0-14 Drug form: l 19:27: INJ, ONCE, Stop date: 04/06/20 14:27:00 CDT ceFAZolin 2019-06 No Route: IV, moria (ANES) 0-14 Drug form: l 19:27: INJ, ONCE, Stop date: 04/06/20 14:27:00 CDT vancomycin 2019-06 No Route: IV, Keerthi emoria (ANES) 1000 0-14 Drug form: l mg 18:31: INJ, Start date: 04/06/20 13:31:00 CDT, Stop date: 04/06/20 14:31:00 CDT vancomycin 2019-06 No Route: IV, Keerthi emoria (ANES) 1000 0-14 Drug form: l mg 18:31: INJ, Start date: 04/06/20 13:31:00 CDT, Stop date: 04/06/20 14:31:00 CDT Lactated 2019-06 No Route: IV, Mem oria Ringers 0-14 Total l Injection 18:25: Volume: Maribell nn IV (ANES) 00 500, Start 500 mL date: 04/06/20 13:25:00 CDT, Stop date: 04/06/20 14:25:00 CDT Lactated 2019-06 No Route: IV, Mem [...] Duration: 30 day, Stop date: 05/06/20 11:46:00 MEDIA ANALYTICS MANAGER, 1.74, m2 Sodium 2019-06 No 500 ml, Memoria Chloride 0-14 Rate: 25 l 0.9% IV 500 16:47: ml/hr, Herm vin ml 00 Infuse over: 20 hr, Route: IV, Dosing Weight 63.636 kg, Total Volume: 500, Start date: 04/06/20 11:47:00 CDT, Duration: 30 day, Stop date: 05/06/20 11:46:00 MEDIA ANALYTICS MANAGER, 1.74, m2 Tylenol 2019-06 No 650 mg, Memoria 0-14 Route: PO, l 15:33: Drug form: Ulysses 00 TAB, ONCE, Dosing Weight 63.636, kg, PRN Pain Score 1-3, Start date: 04/06/20 10:33:00 CDT Tylenol 2019-06 No 650 mg, Memoria 0-14 Route: PO, l 15:33: Drug form: Talon 00 TAB, ONCE, Dosing Weight 63.636, kg, PRN Pain Score 1-3, Start date: 04/06/20 10:33:00 CDT Allopurinol 2019-06 No Notes: Anthony litzy 0-14 (Same as: l 14:00: Zyloprim) Ulysses 00 Aspirin 81 2019-06 No Notes: Do Me moria MG Enteric 0-14 not crush l Coated 14:00: or chew. Ulysses Tablet 00 (Same As: Ecotrin) Clonidine 2019-06 No Notes: Memori a Hydrochlori 0-14 (Same As: l de 0.3 MG 14:00: Catapres) Her cardenas Oral Tablet 00 ferrous 2019-06 No 256 mg, Memoria gluconate 0-14 Route: PO, l 14:00: Drug form: Talon 00 TAB, Daily, Dosing Weight 63.636, kg, Start date: 04/06/20 9:00:00 CDT, Duration: 30 day, Stop date: 05/05/20 9:00:00 MEDIA ANALYTICS MANAGER Triiodothyr 2019-06 No Notes: Anthony litzy onine [...] 0-14 Give with l 14:00: food. "Do Ulysses 00 Not Crush" Allopurinol 2019-06 No Notes: Anthony litzy 0-14 [...] Duration: 30 day, Stop date: 05/05/20 9:00:00 MEDIA ANALYTICS MANAGER Triiodothyr 2019-06 No Notes: Anthony litzy onine 0-14 (Same as: l 14:00: Cytomel) Ulysses 00 24 HR 2019-06 No Notes: Memoria Metoprolol 0-14 (Same as: l Tartrate 25 14:00: Toprol XL) Ulysses MG Extended 00 Do Not Release Crush Tablet [Toprol] paricalcito 2019-06 No Notes: Anthony litzy l 0.001 MG 0-14 (Same as: l Oral 14:00: Zemplar) Talon Capsule 00 ferrous 2019-06 No Notes: Memoria sulfate 0-14 Give with l 14:00: food. "Do Talon 00 Not Crush" Thyroxine 2019-06 No Notes: Memori a 0-14 Take 1 l 11:30: hour Ulysses 00 before or 2 hours after meal; Enteral feeds may interefere with the absorption of this medication .(Same as:Levothr oid, Synthroid) Thyroxine 2019-06 No Notes: Memori a 0-14 Take 1 l 11:30: hour Ulysses 00 before or 2 hours after meal; Enteral feeds may interefere with the absorption of this medication .(Same as:Levothr oid, Synthroid) Hydralazine 2019-06 No Notes: Anthony litzy Hydrochlori 0-14 (Same as: l de 100 MG 05:00: Apresoline He rmann Oral Tablet 00 ) May interfere w/enteral feedings Take With Food Hydralazine 2019-06 No Notes: Anthony litzy Hydrochlori 0-14 (Same as: l de 100 MG 05:00: Apresoline He rmann Oral Tablet 00 ) May interfere w/enteral feedings Take With Food Hydralazine 2019-06 No Notes: Anthony litzy 0-14 (Same as: l 03:03: Apresoline Ulysses 00 ) Push over 5 minutes Benzocaine 2019-06 No Notes: Memor ia 15 MG / 0-14 Same as: l Menthol 3.6 03:03: Cepacol Her cardenas MG Lozenge 00 [Cepacol Sore Throat Pain Relief 15/3.6] Tessalon 2019-06 No Notes: Memoria Perles 0-14 (Same As: l 03:03: Tessalon Talon Perles) "Do Not Crush" tizanidine 2019-06 No Notes: Memor ia 0-14 (Same As: l 03:03: Zanaflex) Talon Hydralazine 2019-06 No Notes: Anthony litzy 0-14 (Same as: l 03:03: Apresoline Talon 00 ) Push over 5 minutes Benzocaine 2019-06 No Notes: Memor ia 15 MG / 0-14 Same as: l Menthol 3.6 03:03: Cepacol Her cardenas MG Lozenge 00 [Cepacol Sore Throat Pain Relief 15/3.6] Tessalon 2019-06 No Notes: Memoria Perles 0-14 (Same As: l 03:03: Tessalon Talon 00 Perles) "Do Not Crush" tizanidine 2019-06 No Notes: Memor ia 0-14 (Same As: l 03:03: Zanaflex) Talon 00 Acetaminoph 2019-06 No Notes: Anthony litzy en 325 MG / 0-14 (Same as: l Hydrocodone 01:40: [place] Maribell nn Bitartrate 00 325/5) Do 5 MG Oral not exceed Tablet 4gm/day of [[place] acetaminop 5/325] hen. Acetaminoph 2019-06 No Notes: Anthony litzy en 325 MG / 0-14 (Same as: l Hydrocodone 01:40: [place] Maribell nn Bitartrate 00 325/5) Do 5 MG Oral not exceed Tablet 4gm/day of [[place] acetaminop 5/325] hen. Dextrose 2019-06 No 12.5 gm, Memor ia 50% Syringe 0-14 25 mL, l (D50W) 01:39: Route: Ulysses IVP, Drug Form: INJ, Dosing Weight 63.636, kg, PRN, PRN Blood Glucose Results, Start date: 04/05/20 20:39:00 CDT, Duration: 30 day, Stop date: 05/05/20 19:38:00 MEDIA ANALYTICS MANAGER, 0 Glucagon 2019-06 No 1 mg, Memoria 0-14 Route: IM, l 01:39: Drug form: Ulysses PDR/INJ, PRN, Dosing Weight 63.636, kg, PRN Blood Glucose Results, Start date: 04/05/20 20:39:00 CDT, Duration: 30 day, Stop date: 05/05/20 19:38:00 MEDIA ANALYTICS MANAGER, 0 Docusate 2019-06 No Notes: Memoria 0-14 [...] 0-14 not exceed l 01:39: 4 gm/day. Talon 00 (Same as: Tylenol) Dextrose 2019-06 No 12.5 gm, Memor ia 50% Syringe 0-14 25 mL, l (D50W) 01:39: Route: Ulysses 00 IVP, Drug Form: INJ, Dosing Weight 63.636, kg, PRN, PRN Blood Glucose Results, Start date: 04/05/20 20:39:00 CDT, Duration: 30 day, Stop date: 05/05/20 19:38:00 MEDIA ANALYTICS MANAGER, 0 Glucagon 2019-06 No 1 mg, Memoria 0-14 Route: IM, l 01:39: Drug form: Talon 00 PDR/INJ, PRN, Dosing Weight 63.636, kg, PRN Blood Glucose Results, Start date: 04/05/20 20:39:00 CDT, Duration: 30 day, Stop date: 05/05/20 19:38:00 MEDIA ANALYTICS MANAGER, 0 Docusate 2019-06 No Notes: Memoria 0-14 (Same as: l 01:39: Colace) Ulysses 00 (Do Not Crush) Ondansetron 2019-06 No Notes: Anthony litzy 0-14 (Same as: l 01:39: Zofran) Talon 00 MEDICATION WASTE Product Size: 4 mg Product Wasted: ___ mg Melatonin 2019-06 No Notes: Memori a 0-14 (Same as: l 01:39: Melatonin) Ulysses 00 Acetaminoph 2019-06 No Notes: Do M emoria en 0-14 not exceed l 01:39: 4 gm/day. Ulysses 00 (Same as: Tylenol) atorvastati Yes 40 mg = 1 M emoria n 40 mg 7-28 tab, PO, l oral tablet 17:26: Bedtime, # Talon 00 30 tab, 0 Refill(s) atorvastati Yes 40 mg = 1 M emoria n 40 mg 7-28 tab, PO, l oral tablet 17:26: Bedtime, # Talon 00 30 tab, 0 Refill(s) Aspirin 81 2019 Yes 81 mg = 1 Me moria MG Enteric 7-28 tab, PO, l Coated 17:21: Daily, # Ulysses Tablet 00 90 tab, 3 Refill(s) Aspirin 81 Yes 81 mg = 1 Me moria MG Enteric 7-28 tab, PO, l Coated 17:21: Daily, # Talon Tablet 00 90 tab, 3 Refill(s) Ondansetron Yes 4 mg = 1 Me moria 4 MG 7-28 tab, PO, l Disintegrat 17:07: BID, PRN He rmvin ing Tablet 00 Nausea and [Zofran] Vomiting, Dissolve tab under tongue, # 10 tab, 0 Refill(s) Ondansetron Yes 4 mg = 1 [...] # 20 Talon sennosides, 00 tab, 0 ASSISTED 8.6 MG Refill(s) Oral Tablet metoprolol Yes 25 mg = 1 Me moria 25 mg oral 7-28 tab, PO, l tablet, 17:05: Daily, # Keenan n extended 00 30 tab, 0 release Refill(s) Acetaminoph Yes 1 tab, PO, Memoria en 300 MG / 7-28 Q6H, PRN l Codeine 17:05: Pain, X 7 Maribell nn Phosphate 00 day, # 28 30 MG Oral tab, 0 Tablet Refill(s) [Tylenol with Codeine #3] Docusate Yes 1 tab, PO, Mem oria Sodium 50 7-28 BID, X 10 l MG / 17:05: day, # 20 Ulysses sennosides, 00 tab, 0 ASSISTED 8.6 MG Refill(s) Oral Tablet metoprolol Yes 25 mg = 1 Me moria 25 mg oral 7-28 tab, PO, l tablet, 17:05: Daily, # Keenan n extended 00 30 tab, 0 release Refill(s) Clonidine No Notes: Memori a Hydrochlori -27 (Same As: l de 0.3 MG 18:00: Catapres) Her cardenas Oral Tablet 00 Clonidine No Notes: Memori a Hydrochlori 7-27 (Same As: l de 0.3 MG 18:00: Catapres) Her cardenas Oral Tablet 00 metoprolol No Notes: Memor ia extended - (Same as: l release 17:00: Toprol XL) Herm vin Do Not Crush metoprolol No Notes: Memor ia extended -27 (Same as: l release 17:00: Toprol XL) Herm vin Do Not Crush Ondansetron No Notes: Anthony litzy 7-27 (Same as: l 16:09: Zofran) MEDICATION WASTE Product Size: 4 mg Product Wasted: ___ mg Ondansetron No Notes: Anthony litzy 7-27 (Same as: l 16:09: Zofran) MEDICATION WASTE Product Size: 4 mg Product Wasted: ___ mg Reglan No Notes: Memoria 7-27 (Same as: l 15:31: Reglan) Hydralazine No Notes: Anthony litzy 7-27 (Same as: l 15:31: Apresoline ) Push over 5 minutes Reglan No Notes: Memoria 7-27 (Same as: l 15:31: Reglan) Hydralazine No Notes: Anthony litzy 7-27 (Same as: l 15:31: Apresoline ) Push over 5 minutes Allopurinol No Notes: Anthony litzy - (Same as: l 14:00: Zyloprim) Talon 00 ferrous No 256 mg, Memoria gluconate 01-17 Route: PO, l 14:00: Drug form: Talon 00 TAB, Daily, Dosing Weight 62.358, kg, Start date: 01/17/19 9:00:00 CDT, Duration: 30 day, Stop date: 02/15/19 9:00:00 CDT Docusate No Notes: Memoria Sodium 50 - (Same as l MG / 14:00: Senokot-S) Ulysses sennosides, 00 Equiv. to ASSISTED 8.6 MG Zoraida-Colac Oral Tablet e. ferrous No Notes: Memoria sulfate - Give with l 14:00: food. "Do Ulysses 00 Not Crush" paricalcito No Notes: Anthony litzy l 0.001 MG 7-27 (Same as: l Oral 14:00: Zemplar) Talon Capsule Nifedical No Notes: Memori a XL 7-27 (Same as: l 14:00: Adalat CC, Talon Procardia XL) Give on empty stomach. Take 1 hour before or 2 hours after meal; "Avoid grapefruit and grapefruit juice". Do not crush Nephro-Flash No Notes: Anthony litzy Rx 7-27 (Same as: l 14:00: Nephro-Vit Talon 00 e Rx and Diatx) Give with food. Allopurinol No Notes: Anthony litzy 7-27 (Same as: l 14:00: Zyloprim) ferrous No 256 mg, Memoria gluconate 7-27 Route: PO, l 14:00: Drug form: TAB, Daily, Dosing Weight 62.358, kg, Start date: 01/17/19 9:00:00 CDT, Duration: 30 day, Stop date: 02/15/19 9:00:00 CDT Docusate No Notes: Memoria Sodium 50 7-27 (Same as l MG / 14:00: Senokot-S) sennosides, 00 Equiv. to ASSISTED 8.6 MG Zoraida-Colac Oral Tablet e. ferrous No Notes: Memoria sulfate 7-27 Give with l 14:00: food. "Do Not Crush" paricalcito No Notes: Anthony litzy l 0.001 MG 7-27 (Same as: l Oral 14:00: Zemplar) Talon Capsule Nifedical No Notes: Memori a XL 7-27 (Same as: l 14:00: Adalat CC, Ulysses Procardia XL) Give on empty stomach. Take 1 hour before or 2 hours after meal; "Avoid grapefruit and grapefruit juice". Do not crush Nephro-Flash No Notes: Anthony litzy Rx 7-27 (Same as: l 14:00: Nephro-Vit Ulysses 00 e Rx and Diatx) Give with food. Triiodothyr No Notes: Anthony litzy onine 01-17 (Same as: l 11:30: Cytomel) Ulysses 00 Thyroxine No Notes: Memori a 01-17 Take 1 l 11:30: hour Ulysses 00 before or 2 hours after meal; Enteral feeds may interefere with the absorption of this medication .(Same as:Levothr oid, Synthroid) Triiodothyr No Notes: Anthony litzy onine 01-17 (Same as: l 11:30: Cytomel) Ulysses 00 Thyroxine No Notes: Memori a 01-17 Take 1 l 11:30: hour Ulysses 00 before or 2 hours after meal; Enteral feeds may interefere with the absorption of this medication .(Same as:Levothr oid, Synthroid) heparin No Notes: Memoria 01-17 porcine l 06:00: heparin heparin No Notes: Memoria 01-17 porcine l 06:00: heparin Talon 00 atorvastati No Notes: Anthony litzy n 01-17 (Same as: l 02:00: Lipitor) Talon 00 atorvastati No Notes: Anthony litzy n 01-17 (Same as: l 02:00: Lipitor) Talon Acetaminoph No Notes: Anthony litzy en 325 MG / 01-17 (Same as: l Hydrocodone 00:40: [place] Maribell nn Bitartrate 00 325/5) Do 5 MG Oral not exceed Tablet 4gm/day of [[place] acetaminop 5/325] hen. Acetaminoph No Notes: Anthony litzy en 325 MG / 01-17 (Same as: l Hydrocodone 00:40: [place] Maribell nn Bitartrate 00 325/5) Do 5 MG Oral not exceed Tablet 4gm/day of [[place] acetaminop 5/325] hen. Acetaminoph No 2 tab, Anthony litzy en 325 MG / 01-17 Route: PO, l Hydrocodone 00:36: Dosing Herm vin Bitartrate 00 Weight 5 MG Oral 62.358, Tablet kg, Q4H, [[place] STAT, 5/325] Start date: 01/16/19 19:36:00 CDT, Duration: 30 day, Stop date: 02/15/19 16:00:00 CDT Acetaminoph No 2 tab, Anthony litzy en 325 MG / 01-17 Route: PO, l Hydrocodone 00:36: Dosing Herm vin Bitartrate 00 Weight 5 MG Oral 62.358, Tablet kg, Q4H, [[place] STAT, 5/325] Start date: 01/16/19 19:36:00 CDT, Duration: 30 day, Stop date: 02/15/19 16:00:00 CDT Milk of No Notes: Memoria Magnesia 7-26 (Same as: l 23:23: Milk of Ulysses Farnaz, MOM) Milk of No Notes: Memoria Magnesia 7-26 (Same as: l 23:23: Milk of Ulysses Magnjudy, MOM) Aspirin 81 No Notes: Memor ia MG Chewable 7-26 Take with l Tablet 22:30: food. Ulysses 00 Aspirin 81 No Notes: Memor ia MG Chewable 7-26 Take with l Tablet 22:30: food. Talon 00 Zofran No Notes: Memoria 7-26 (Same as: l 22:24: Zofran) Talon MEDICATION WASTE Product Size: 4 mg Product Wasted: ___ mg Zofran No Notes: Memoria 7-26 (Same as: l 22:24: Zofran) Ulysses MEDICATION WASTE Product Size: 4 mg Product Wasted: ___ mg Lactulose No Notes: Memori a 667 MG/ML 7-26 (Same l Oral 22:23: as:Chronul Ulysses Solution 00 ac) Morphine No Notes: Memoria 7-26 (Same l 22:23: as:MORPhin Ulysses 00 e Sulfate) Lactulose No Notes: Memori a 667 MG/ML 7-26 (Same l Oral 22:23: as:Chronul [place]es Solution 00 ac) Morphine No Notes: Memoria 7-26 (Same l 22:23: as:MORPhin Talon 00 e Sulfate) Metoprolol No Notes: Memor ia 7-26 (Same as: l 22:16: Lopressor) Ulysses 00 Push over 2 minutes Metoprolol No Notes: Memor ia 01-16 (Same as: l 22:16: Lopressor) Talon 00 Push over 2 minutes Epogen No Notes: Memoria 01-16 (Same as: l 22:00: Procrit) Ulysses 00 epoetin jennifer 4000 unit/1 ml VL For dialysis only. (Epogen) WASTE: F/P - Red; E -Red MEDICATION WASTE Product Size: 4000 unit Product Wasted: ___ unit Hydralazine No Notes: Anthony litzy Hydrochlori 01-16 (Same as: l de 100 MG 22:00: Apresoline He rmann Oral Tablet 00 ) May interfere w/enteral feedings Take With Food Epogen No Notes: Memoria 01-16 (Same as: l 22:00: Procrit) Talon 00 epoetin jennifer 4000 unit/1 ml VL For [...] Memori a 01-16 Route: l 17:59: SUB-Q, Ulysses 00 Q6H, Dosing Weight 62.358, kg, PRN Itching, Start date: 01/16/19 12:59:00 CDT, Duration: 30 day, Stop date: 02/15/19 12:58:00 CDT Meperidine No 12.5 mg, Mem oria 01-16 Route: l 17:59: IVP, Ulysses 00 Q30Min, Dosing Weight 62.358, kg, PRN [...] litzy 01-16 Route: l 17:59: IVP, PRN, Ulysses Dosing Weight 62.358, kg, PRN Benzodiaze pine Reversal, Initial dose, Start date: 01/16/19 12:59:00 CDT, Duration: 30 day, Stop date: 02/15/19 12:58:00 CDT Fentanyl 2019-0 No 50 Memoria 01-16 microgram, l 17:59: Route: Ulysses IVP, Q5Min, Dosing Weight 62.358, kg, PRN [...] MG/ML 01-16 Route: l Inhalant 17:59: NEB, Ulysses Solution 00 Q20Min, Dosing Weight 62.358, kg, [...] Anthony litzy 01-16 Route: l 17:59: IVP, Ulysses 00 Q20Min, Dosing Weight 62.358, kg, PRN Elevated BP, Start date: 01/16/19 12:59:00 CDT, Duration: 2 doses or times, Stop date: Limited # of times Labetalol 2019-0 No 10 mg, Memori a 01-16 Route: l 17:59: IVP, Ulysses 00 Q5Min, Dosing Weight 62.358, kg, PRN Elevated BP, Start date: 01/16/19 12:59:00 CDT, Duration: 5 doses or times, Stop date: Limited # of times Promethazin 2019-0 No 6.25 mg, Me moria e 01-16 Route: l 17:59: IVPB, Ulysses 00 ONCE, Dosing Weight 62.358, kg, PRN Nausea & Vomiting, Start date: 01/16/19 12:59:00 CDT Naloxone 2019-0 No 0.1 mg, Memori a 01-16 Route: l 17:59: SUB-Q, Ulysses 00 Q6H, Dosing Weight 62.358, kg, PRN [...] ia 01-16 Route: l 17:59: IVP, ONCE, Ulysses Dosing Weight 62.358, kg, PRN Nausea & Vomiting, Start date: 01/16/19 12:59:00 CDT Flumazenil 2019-0 No 0.2 mg, Anthony litzy 01-16 Route: l 17:59: IVP, PRN, Talon 00 Dosing Weight 62.358, kg, PRN Benzodiaze pine Reversal, Initial dose, Start date: 01/16/19 12:59:00 CDT, Duration: 30 day, Stop date: 02/15/19 12:58:00 CDT Fentanyl 2019-0 No 50 Memoria 01-16 microgram, l 17:59: Route: Ulysses 00 IVP, Q5Min, Dosing Weight 62.358, kg, PRN Pain Score 7-10, Priority: Routine, Start date: 01/16/19 12:59:00 CDT, Duration: 2 doses or times, Stop date: Limited # of times Hydromorpho 2019-0 No 0.5 mg, Mem oria ne 01-16 Route: l 17:59: IVP, Ulysses 00 Q5Min, Dosing Weight 62.358, kg, PRN [...] MG/ML 01-16 Route: l Inhalant 17:59: NEB, Ulysses Solution 00 Q20Min, Dosing Weight 62.358, kg, PRN Wheezing, Priority: Routine, Start date: 01/16/19 12:59:00 CDT, Duration: 30 day, Stop date: 02/15/19 12:58:00 CDT Acetaminoph 2019-0 No 1,000 mg, M cassandra en 01-16 Route: PO, l 17:59: Drug form: Talon 00 TAB, ONCE, Dosing Weight 62.358, kg, PRN Pain Score 1-3, Start date: 01/16/19 12:59:00 CDT Hydralazine 0 No 10 mg, Anthony litzy 01-16 Route: l 17:59: IVP, Talon 00 Q20Min, Dosing Weight 62.358, kg, PRN Elevated BP, Start date: 01/16/19 12:59:00 CDT, Duration: 2 doses or times, Stop date: Limited # of times Labetalol 0 No 10 mg, Memori a 01-16 Route: l 17:59: IVP, Talon 00 [...] INJ, ONCE, Stop date: 01/16/19 12:45:00 CDT esmolol 0 No Route: IV, Anthony litzy (ANES) 01-16 Drug form: l 17:45: INJ, ONCE, Ulysses 00 Stop date: 01/16/19 12:45:00 CDT Dextrose 0 No Route: IV, Mem oria 50% in 01-16 Stop date: l Water IV 17:45: 01/16/19 Maribell nn (ANES) 00 12:45:00 CDT phenylephri No Route: IV, Memoria ne (ANES) 01-16 Drug form: l 17:45: INJ, ONCE, Ulysses 00 Stop date: 01/16/19 12:45:00 CDT EPINEPHrine 2019-0 No Route: IV, Memoria (ANES) 01-16 Drug form: l 17:43: INJ, ONCE, Stop date: 01/16/19 12:43:00 CDT EPINEPHrine 2019-0 No Route: IV, Memoria (ANES) 01-16 Drug form: l 17:43: INJ, ONCE, Stop date: 01/16/19 12:43:00 CDT calcium 2019-0 No Route: IV, Anthony litzy chloride 01-16 Drug form: l (ANES) 17:33: INJ, ONCE, Maribell nn Stop date: 01/16/19 12:33:00 CDT calcium 2019-0 No Route: IV, Anthony litzy chloride 01-16 Drug form: l (ANES) 17:33: INJ, ONCE, Maribell nn Stop date: 01/16/19 12:33:00 CDT propofol 2019-0 No Route: IV, Mem oria (ANES) 01-16 Drug form: l 16:52: INJ, ONCE, Stop date: 01/16/19 11:52:00 CDT Amidate 0 No Route: IV, Anthony litzy (ANES) 01-16 Drug form: l 16:52: INJ, ONCE, Stop date: 01/16/19 11:52:00 CDT norepinephr 2018-0 No Route: IV, Memoria ine (ANES) 01-16 Drug form: l 16:52: INJ, ONCE, Stop date: 01/16/19 11:52:00 CDT lidocaine 2019-0 No Route: IV, Me moria (ANES) 01-16 Drug form: l 16:52: INJ, ONCE, Stop date: 01/16/19 11:52:00 CDT propofol 2019-0 No Route: IV, Mem oria (ANES) 01-16 Drug form: l 16:52: INJ, ONCE, Stop date: 01/16/19 11:52:00 CDT Amidate 2018-0 No Route: IV, Anthony litzy (ANES) 01-16 Drug form: l 16:52: INJ, ONCE, Stop date: 01/16/19 11:52:00 CDT norepinephr No Route: IV, Memoria ine (ANES) 01-16 Drug form: l 16:52: INJ, ONCE, Stop date: 01/16/19 11:52:00 CDT lidocaine 0 No Route: IV, Me moria (ANES) 01-16 Drug form: l 16:52: INJ, ONCE, Stop date: 01/16/19 11:52:00 CDT ondansetron No Route: IV, Memoria (ANES) 01-16 Drug form: l 16:42: INJ, ONCE, Stop date: 01/16/19 11:42:00 CDT ceFAZolin No Route: IV, Me moria (ANES) 01-16 Drug form: l 16:42: INJ, ONCE, Stop date: 01/16/19 11:42:00 CDT ondansetron No Route: IV, Memoria (ANES) 01-16 Drug form: l 16:42: INJ, ONCE, Stop date: 01/16/19 11:42:00 CDT ceFAZolin No Route: IV, Me moria (ANES) 01-16 Drug form: l 16:42: INJ, ONCE, Stop date: 01/16/19 11:42:00 CDT fentaNYL 2018-0 No Route: IV, Mem oria (ANES) 01-16 Drug form: l 16:37: INJ, ONCE, Stop date: 01/16/19 11:37:00 CDT fentaNYL 2018-0 No Route: IV, Mem oria (ANES) 01-16 Drug form: l 16:37: INJ, ONCE, Stop date: 01/16/19 11:37:00 CDT vancomycin 2018-0 No Route: IV, M emoria (ANES) 1000 01-16 Drug form: l mg 15:50: INJ, Start date: 01/16/19 10:50:00 CDT, Stop date: 01/16/19 11:50:00 CDT vancomycin 0 No Route: IV, M emoria (ANES) 1000 01-16 Drug form: l mg 15:50: INJ, Start Ulysses 00 date: 01/16/19 10:50:00 CDT, Stop date: 01/16/19 11:50:00 CDT Sodium 2019-0 No Route: IV, Memor ia Chloride 01-16 Total l 0.9% IV 15:46: Volume: Ulysses (ANES) 1000 00 1,000, mL Start date: 01/16/19 10:46:00 CDT, Stop date: 01/16/19 11:46:00 CDT Sodium 2019-0 No Route: IV, Memor ia Chloride -26 Total l 0.9% IV 15:46: Volume: Talon (ANES) 1000 00 1,000, mL Start date: 01/16/19 10:46:00 CDT, Stop date: 01/16/19 11:46:00 CDT Insulin 2019-0 No 5 unit, Memoria regular 01-16 Route: IV, l 15:40: ONCE, Dosing Weight 62.358, kg, Start date: 01/16/19 10:40:00 CDT, Stop date: 01/16/19 10:40:00 CDT Insulin 2019-0 No 5 unit, Memoria regular 01-16 Route: IV, l 15:40: ONCE, Dosing Weight 62.358, kg, Start date: 01/16/19 10:40:00 CDT, Stop date: 01/16/19 10:40:00 CDT Dextrose 2019-0 No 12.5 gm, Memor ia 01-16 Route: l 15:39: IVPB, ONCE, Dosing Weight 62.358, kg, Start date: 01/16/19 10:39:00 CDT, Stop date: 01/16/19 10:39:00 CDT Dextrose 2019-0 No 12.5 gm, Memor ia 01-16 Route: l 15:39: IVPB, ONCE, Dosing Weight 62.358, kg, Start date: 01/16/19 10:39:00 CDT, Stop date: 01/16/19 10:39:00 CDT Calcium 2019-0 No 1,000 mL, Memor ia Chloride 01-16 Rate: 25 l 0.0014 13:46: ml/hr, Ulysses MEQ/ML / 00 Infuse Potassium over: 40 [...] Rate: 25 l 0.9% IV 13:46: ml/hr, Ulysses 1,000 mL 00 Infuse over: 40 hr, Route: IV, Dosing Weight 62.358 kg, Total Volume: 1,000, Start date: 01/16/19 8:46:00 CDT, Duration: 1 day, Stop date: 01/17/19 8:45:00 CDT, 1.68, m2, 0 Calcium 2019-0 No 1,000 mL, Memor ia Chloride 7-26 Rate: 25 l 0.0014 13:46: ml/hr, Talon MEQ/ML / 00 Infuse Potassium over: 40 [...] Rate: 25 l 0.9% IV 13:46: ml/hr, Ulysses 1,000 mL 00 Infuse over: 40 hr, Route: IV, Dosing Weight 62.358 kg, Total Volume: 1,000, Start date: 01/16/19 8:46:00 CDT, Duration: 1 day, Stop date: 01/17/19 8:45:00 CDT, 1.68, m2, 0 Vitamin B12 2019-0 Yes monthly, 0 Memoria 7-25 Refill(s) l 18:31: Talon 00 Vitamin B12 2019-0 Yes monthly, 0 Memoria 7-25 Refill(s) l 18:31: Talon 00 allopurinol Yes 100 mg = 1 Memoria 100 mg oral 7-25 tab, PO, l tablet 18:30: Daily, # Ulysses 00 90 tab, 1 Refill(s) Aspirin 81 20190 Yes 81 mg = 1 Me moria MG Chewable 7-25 tab, PO, l Tablet 18:30: Daily, Talon 00 tab, 0 Refill(s) 24 HR No 30 mg = 1 Memoria Nifedipine 7-25 tab, PO, l 30 MG 18:30: Daily, # Talon Extended 00 30 tab, 0 Release Refill(s) Tablet [Nifedical] allopurinol Yes 100 mg = 1 Memoria 100 mg oral 7-25 tab, PO, l tablet 18:30: Daily, # Talon 00 90 tab, 1 Refill(s) Aspirin 81 0 Yes 81 mg = 1 Me moria MG Chewable 7-25 tab, PO, l Tablet 18:30: Daily, Talon 00 tab, 0 Refill(s) 24 HR No 30 mg = 1 Memoria Nifedipine 7-25 tab, PO, l 30 MG 18:30: Daily, # Ulysses Extended 00 30 tab, 0 Release Refill(s) Tablet [Nifedical] paricalcito Yes 1 Memori a l 0.001 MG 7-25 microgram l Oral 18:29: = 1 cap, Ulysses Capsule 00 PO, Daily, # 30 cap, 0 Refill(s) levothyroxi Yes 50 Memori a ne 50 mcg 7-25 microgram l (0.05 mg) 18:29: = 1 tab, Herm vin oral tablet 00 PO, Daily, # 30 tab, 0 Refill(s) paricalcito Yes 1 Memori a l 0.001 MG 7-25 microgram l Oral 18:29: = 1 cap, Ulysses Capsule 00 PO, Daily, # 30 cap, [...] Herm vin iron) oral 00 Refill(s) tablet liothyronin Yes 5 Memori a e 5 [...] PO, l oral tablet 18:27: Bedtime, # Talon 00 30 tab, 0 Refill(s) Hydralazine Yes 100 mg = 1 Memoria Hydrochlori 7-25 tab, PO, l de 100 MG 18:27: TID, # 90 Her cardenas Oral Tablet 00 tab, 3 Refill(s) atorvastati Yes 40 mg = 1 M emoria n 40 mg 7-25 tab, PO, l oral tablet 18:27: Bedtime, # Talon 00 30 tab, 0 Refill(s) Clonidine 2018- Yes 0.3 mg = 1 Me moria Hydrochlori 7-25 tab, PO, l de 0.3 MG 18:25: TID, # 60 Her cardenas Oral Tablet 00 tab, 1 Refill(s) Clonidine 2018- Yes 0.3 mg = 1 Me moria [...] mg Product Wasted: ___ mg Ancef + 2018- No Notes: Memoria sterile 7-25 (Same As: l water 20 mL 18:00: Ancef, Herm vin 00 Kefzol) MEDICATION WASTE Product Size: 1000 mg Product Wasted: ___ mg Vancomycin 2019- No 2001 mg: Me moria 7-25 infuse l 18:00: over 2.5 Ulysses 00 hours For adult patients only: Round to nearest 250 mg per Medical Staff approval MEDICATION WASTE Product Size: 1000 mg Product Wasted: ___ mg Ancef + 2018- No Notes: Memoria sterile 7-25 (Same As: l water 20 mL 18:00: Ancef, Herm vin 00 Kefzol) MEDICATION WASTE Product Size: 1000 mg Product Wasted: ___ mg Immunizations Ordered Immunization Filled Immunization Date Status Commen ts Source Name Name [id number] 2020-08-27 Completed Anthony rial [id number]<chávez 00:00:00 Herm vin p>1</sup> [id number] 2020-08-27 Completed Anthony rial [id number]<chávez 00:00:00 Herm vin p>1</sup> Vital Signs Vital Name Observation Time Observation Value Comments Source Systolic (mm Hg) 2021-01-31 19:10:00 Anthony riakalyani [place] Diastolic (mm Hg) 2021-01-31 19:10:00 Mem orinaheed [place] Heart Rate 2021-01-31 19:10:00 [facility] Talon Respitory Rate 2021-01-31 19:10:00 Patori al [place] Systolic blood 2021-01-03 15:59:00 149 mm[Hg] [facility] Diastolic blood 2021-01-03 15:59:00 66 mm[Hg] [facility] Heart rate 2021-01-03 15:59:00 60 /min [facility] Body temperature 2021-01-03 15:59:00 36.44 Torri [facility] Respiratory rate 2021-01-03 15:59:00 18 /min [facility] Oxygen saturation in 2021-01-03 15:59:00 100 /min [facility] - Arterial blood by Medical Ce [facility]ter Pulse oximetry Body weight 2020-12-31 20:30:00 58.968 kg [facility] BMI 2020-12-31 20:30:00 23.03 kg/m2 [facility] Body height 2020-12-27 07:43:00 160 cm [facility] Systolic (mm Hg) 2020-10-31 14:51:00 Anthony rial [place] Diastolic (mm Hg) 2020-10-31 14:51:00 Mem orial Talon Heart Rate 2020-10-31 14:51:00 [facility] [place] Respitory Rate 2020-10-31 14:51:00 Memori al [place]on Height 2020-10-31 14:51:00 160.02 cm [facility] Talon Weight 2020-10-31 14:51:00 [facility] [place] BMI Calculated 2020-10-31 14:51:00 Memori al [place] Systolic (mm Hg) 2020-07-20 19:53:00 Anthony rial Talon Diastolic (mm Hg) 2020-07-20 19:53:00 Mem orial [place] Heart Rate 2020-07-20 19:53:00 [facility] [place] Respitory Rate 2020-07-20 19:53:00 Memori al [place] Height 2020-07-20 19:53:00 160.02 cm [facility] [place] Weight 2020-07-20 19:53:00 [facility] [place] BMI Calculated 2020-07-20 19:53:00 Memori al Talon Systolic (mm Hg) 2020-05-26 20:30:00 Anthony rial [place] Diastolic (mm Hg) 2020-05-26 20:30:00 Mem orial [place] Systolic (mm Hg) 2020-05-26 20:00:00 Anthony rial [place]es Diastolic (mm Hg) 2020-05-26 20:00:00 Mem orial [place] Respitory Rate 2020-05-26 19:45:00 Memori al [place] Systolic (mm Hg) 2020-05-26 19:45:00 Anthony rial Talon Diastolic (mm Hg) 2020-05-26 19:45:00 Mem orial [place]es Respitory Rate 2020-05-26 19:30:00 Memori al [place] Respitory Rate 2020-05-26 19:15:00 Memori al [place] Height 2020-05-26 15:59:00 160.02 cm [facility] [place] Weight 2020-05-26 15:59:00 [facility] [place] BMI Calculated 2020-05-26 15:59:00 Memori al [place] Height 2020-05-25 21:05:00 160.02 cm [facility] [place] Weight 2020-05-25 21:05:00 [facility] [place] BMI Calculated 2020-05-25 21:05:00 Memori al [place] Respitory Rate 2020-05-17 21:00:00 Memori al [place] Systolic (mm Hg) 2020-05-17 21:00:00 Anthony rial [place] Diastolic (mm Hg) 2020-05-17 21:00:00 Mem orial [place] Respitory Rate 2020-05-17 20:00:00 Memori al Talon Systolic (mm Hg) 2020-05-17 20:00:00 Anthony rial Talon Diastolic (mm Hg) 2020-05-17 20:00:00 Mem orial [place] Respitory Rate 2020-05-17 19:45:00 Memori al [place] Systolic (mm Hg) 2020-05-17 19:45:00 Anthony rial Talon Diastolic (mm Hg) 2020-05-17 19:45:00 Mem orial [place]es Height 2020-05-17 16:00:00 160.02 cm [facility] [place] Weight 2020-05-17 16:00:00 [facility] [place] BMI Calculated 2020-05-17 16:00:00 Memori al [place] Temperature Oral (F) 2020-04-08 21:41:00 97.9 F [facility] [place] Systolic (mm Hg) 2020-04-08 21:41:00 Anthony rial Talon Diastolic (mm Hg) 2020-04-08 21:41:00 [facility] Respitory Rate 2020-04-08 16:00:00 [facility] Systolic (mm Hg) 2020-04-08 16:00:00 [facility] Diastolic (mm Hg) 2020-04-08 16:00:00 [facility] Temperature Oral (F) 2020-04-08 16:00:00 98.0 F [facility] Respitory Rate 2020-04-08 15:45:00 [facility] Systolic (mm Hg) 2020-04-08 15:45:00 [facility] Diastolic (mm Hg) 2020-04-08 15:45:00 [facility] Respitory Rate 2020-04-08 15:30:00 [facility] Temperature Oral (F) 2020-04-08 12:30:00 98.4 F [facility] Heart Rate 2020-04-08 04:31:00 [facility] Heart Rate 2020-04-07 23:22:00 [facility] Heart Rate 2020-04-06 12:22:00 [facility] Height 2020-04-06 02:48:00 170.18 cm [facility] Weight 2020-04-06 02:48:00 [facility] BMI Calculated 2020-04-06 02:48:00 [facility] Height 2020-04-05 23:14:00 170.18 cm [facility] BMI Calculated 2020-04-05 23:14:00 [facility] Weight 2020-04-05 23:14:00 [facility] Systolic (mm Hg) 2019-03-10 17:45:00 [facility] Diastolic (mm Hg) 2019-03-10 17:45:00 [facility] Systolic (mm Hg) 2019-03-10 17:30:00 [facility] Diastolic (mm Hg) 2019-03-10 17:30:00 [facility] Heart Rate 2019-03-10 17:07:00 [facility] Respitory Rate 2019-03-10 17:07:00 [facility] Systolic (mm Hg) 2019-03-10 17:07:00 [facility] Diastolic (mm Hg) 2019-03-10 17:07:00 [facility] Heart Rate 2019-03-10 16:15:00 [facility] Respitory Rate 2019-03-10 15:30:00 [facility] Heart Rate 2019-03-10 15:30:00 [facility] Heart Rate 2019-01-18 16:07:00 [facility] Temperature Oral (F) 2019-01-18 16:07:00 98.2 F [facility] Respitory Rate 2019-01-18 16:07:00 [facility] Systolic (mm Hg) 2019-01-18 16:07:00 [facility] Diastolic (mm Hg) 2019-01-18 16:07:00 [facility] Respitory Rate 2019-01-18 14:03:00 [facility] Systolic (mm Hg) 2019-01-18 12:32:00 [facility] Diastolic (mm Hg) 2019-01-18 12:32:00 [facility] Temperature Oral (F) 2019-01-18 12:32:00 98.2 F [facility] Heart Rate 2019-01-18 12:32:00 [facility] Respitory Rate 2019-01-18 12:32:00 [facility] Temperature Oral (F) 2019-01-18 08:54:00 98.4 F [facility] Heart Rate 2019-01-18 08:54:00 [facility] Systolic (mm Hg) 2019-01-18 08:54:00 [facility] Diastolic (mm Hg) 2019-01-18 08:54:00 [facility] BMI Calculated 2019-01-16 13:43:00 [facility] Weight 2019-01-16 13:43:00 [facility] Height 2019-01-16 13:43:00 160.02 cm [facility] Weight 2019-01-15 17:57:00 [facility] BMI Calculated 2019-01-15 17:57:00 [facility] Height 2019-01-15 17:57:00 162.56 cm [facility] Temperature Oral (F) 2012-05-19 16:43:00 96.3 F [facility] Heart Rate 2012-05-19 16:43:00 [facility] Respitory Rate 2012-05-19 16:43:00 [facility] Systolic (mm Hg) 2012-05-19 16:43:00 Anthony rial [facility] Diastolic (mm Hg) 2012-05-19 16:43:00 Mem [facility] Weight 2012-05-19 16:43:00 [facility] Height 2012-05-19 16:43:00 160.02 cm [facility] Temperature Oral (F) 2012-01-28 14:02:00 97.8 F [facility] Systolic (mm Hg) 2012-01-28 14:02:00 Anthony rial [facility] Heart Rate 2012-01-28 14:02:00 [facility] Respitory Rate 2012-01-28 14:02:00 [facility] Diastolic (mm Hg) 2012-01-28 14:02:00 Mem [facility] Weight 2012-01-28 14:02:00 [facility] Height 2012-01-28 14:02:00 160.02 cm [facility] Respitory Rate 2012-01-10 14:26:00 [facility] Heart Rate 2012-01-10 14:26:00 [facility] Temperature Oral (F) 2012-01-10 14:26:00 98.3 F [facility] Diastolic (mm Hg) 2012-01-10 14:26:00 Mem [facility] Systolic (mm Hg) 2012-01-10 14:26:00 Anthony rial [facility] Weight 2012-01-10 14:26:00 [facility] Height 2012-01-10 14:26:00 160.02 cm [facility] Procedures Procedure Date / Time Performing Clinician Source Performed XR CERVICAL SPINE AP 2021-02-02 18:35:55 Gianna Greer [facility] LATERAL FLEXION AND EXTENSION [id number] 2021-01-08 00:00:00 ENCPL 72IF63D 2021-01-08 00:00:00 ENCPL 95YM26I 2021-01-08 00:00:00 ENCPL 22EQ11D 2021-01-08 00:00:00 ENCPL 80RK88D 2021-01-08 00:00:[address] SPINE CERVICAL 2021-01-03 11:09:[address] [facility] WITHOUT IV CONTRAST Medical Ca ter XR CHEST 1 VIEW PORTABLE 2021-01-03 07:35:[address] [facility] - / BEDSIDE [facility] CBC W/PLT COUNT & AUTO 2021-01-03 05:05:00 Sarah Allen [facility] COMPREHENSIVE METABOLIC 2021-01-03 05:05:00 Sarah Allenjerry PIERCE [facility] MAGNESIUM 2021-01-03 05:05:00 AlejandroSarah jefferyalealicia [facility] [id number] 2021-01-03 00:00:00 ENCPL 5D2P18F 2021-01-03 00:00:00 ENCPL 3T0D16Z 2021-01-03 00:00:00 ENCPL 6W8A82K 2021-01-03 00:00:00 ENCPL 3D2V04L 2021-01-03 00:00:00 ENCPL 4T7E69M 2021-01-03 00:00:00 ENCPL 5K2Q08S 2021-01-03 00:00:00 ENCPL 7C4L77L 2021-01-03 00:00:00 ENCPL 8A0A41A 2021-01-03 00:00:00 ENCPL 8Z2U96W 2021-01-03 00:00:00 ENCPL 2R6B11T 2021-01-03 00:00:00 ENCPL 8E1Y46X 2021-01-03 00:00:00 ENCPL 7M0H21T 2021-01-03 00:00:00 ENCPL 0Z9V28Y 2021-01-03 00:00:00 ENCPL 6E8D34S 2021-01-03 00:00:00 ENCPL 4V8I65B 2021-01-03 00:00:00 ENCPL 1X5N24K 2021-01-03 00:00:00 ENCPL 8D4W85O 2021-01-03 00:00:00 ENCPL 0W3Y33P 2021-01-03 00:00:00 ENCPL 8E5A45S 2021-01-03 00:00:00 ENCPL 6D1U01V 2021-01-03 00:00:00 ENCPL CBC W/PLT COUNT & AUTO 2021-01-02 05:45:00 Ezio Terry [facility] BASIC METABOLIC PANEL 2021-01-02 05:45:00 Ezio Terry [address] BASIC METABOLIC PANEL 2021-01-01 05:17[facility] PHOSPHORUS 2021-01-01 [facility] & AUTO 2021-01-01 05:17:00 [facility] APTT 2020-12-31 14:30:00 Ezio [facility] LAMINOPLASTY,CERVICAL 2020-12-31 14:22:00 Gianna Greer [facility] DECOMPRESSION SPINAL Medical Ca ter CORD BASIC METABOLIC PANEL 2020-12-31 06:41:00 [facility] PHOSPHORUS 2020-12-31 05:29:00 [facility] W/[facility]T COUNT & AUTO 2020-12-31 05:29:00 [facility] IR CENTRAL VENOUS 2020-12-30 14:00:00 Ezio Terry [facility] - CATHETER PLACEMENT Medical Cente r (JUGULAR OR FEMORAL) XR CHEST 1 VIEW PORTABLE 2020-12-30 05:52:[address] [facility] - / BEDSIDE Medical Center PHOSPHORUS 2020-12-30 04:42:00 [facility] W/PLT COUNT & AUTO 2020-12-30 04:42:00 [facility] COMPREHENSIVE METABOLIC 2020-12-30 04:42:00 Sarah Allen [facility] MAGNESIUM 2020-12-30 04:42:[address] [facility] Medical Center CT SPINE CERVICAL 2020-12-29 13:47:[address] [facility] WITHOUT IV CONTRAST Medical Ca ter HC ARTERIAL DOPPLER ARM 2020-12-29 08:53:00 [facility]PL[facility] EXT 2020-12-29 08:00:00 Ezio [facility] HEPATITIS B SURFACE 2020-12-29 04:24:[address] [facility] ANTIGEN [facility] HEPATITIS B SURFACE 2020-12-29 04:24:00 Josselyn [facility] ANTIBODY [facility] XR CHEST 1 VIEW PORTABLE 2020-12-28 11:21:00 Debbie Holguin [facility] - / BEDSIDE [facility] Center XR HIP 2 VIEWS LEFT 2020-12-28 10:10:00 [facility] COMPREHENSIVE METABOLIC 2020-12-28 04:10:00 Sarah Allen CH, I [facility] PANEL [facility] CBC W/PLT COUNT & AUTO 2020-12-28 04:10:[address] [facility] DIFFERENTIAL [facility] MAGNESIUM 2020-12-28 04:10:00 Sarah Allen [facility] FL FLUORO NON-SPECIFIC 2020-12-27 12:50:00 Gianna Greer [facility] - UP TO 1 HOUR Medical Center ABORH, MANUAL 2020-12-27 11:27:[address] [facility] LAMINECTOMY,CERVICAL 2020-12-27 09:35:00 Gianna Greer [facility] FACETECTOMY/ [facility] FORAMINOTOMY/ DECOMPRESSION ALLOGRAFT,FOR SPINE 2020-12-27 09:35:[address] [facility] SURGERY [facility] PT/APTT 2020-12-27 08:42:00 Gianna Greer [facility] POTASSIUM 2020-12-27 08:42:00 [facility] TYPE AND SCREEN, 2020-12-27 08:42:[address] [facility] AUTOMATED [facility] BASIC METABOLIC PANEL 2020-12-22 11:24:[address] [facility] (7) [facility] CBC W/PLT COUNT & AUTO 2020-12-22 11:24:[address] [facility] DIFFERENTIAL [facility] PT/APTT 2020-12-22 11:24:[address] [facility] Colectomy [facility] Thyroidectomy [facility] Total hysterectomy [facility] Plan of Care Planned Activity Planned Date Details Comments Source Future Scheduled 2021-02-22 INFLUENZA VACCINE (#1) [facility] 00:00:00 [code = INFLUENZA Medical Ce nter VACCINE (#1)] Future Scheduled 2020-06-[address] [facility] Test 00:00:00 (12+) [code = Medical Center DEPRESSION SCREENING (12+)] Future Scheduled 2020-06-24 FALLS RISK SCREENING [facility] 00:00:00 [code = FALLS RISK Medical C enter SCREENING] Future Scheduled 2020-03-[address] [facility] 00:00:00 WELLNESS (YEAR 2 or Medical Center FIRST YEAR if no IPPE) [code = MEDICARE ANNUAL WELLNESS (YEAR 2 or FIRST YEAR if no IPPE)] Future Scheduled 2019-09-11 PNEUMOCOCCAL 65+ YRS [facility] Test 00:00:00 (1 of 1 - Medical Center [id number] PCV13) [code = PNEUMOCOCCAL 65+ YRS (1 of 1 - [id number] PCV13)] Future Scheduled 2004 SHINGLES VACCINES ([address] [facility] - Test 00:00:00 of 2) [code = SHINGLES Medic al Center VACCINES (1 of 2)] Future Scheduled 1973 DTAP/TDAP/TD VACCINES [facility] 00:00:00 (1 - Tdap) [code = Medical C enter DTAP/TDAP/TD VACCINES (1 - Tdap)] Future Scheduled 1972 HEPATITIS C SCREENING [facility] 00:00:00 [code = HEPATITIS C Medical Center SCREENING] Future Scheduled 1966 COVID-19 VACCINE (1) [facility] Test 00:00:00 [code = COVID-[address] VACCINE (1)] Future Scheduled [address] [facility] 00:00:00 malignant neoplasm of Medica l Center breast (procedure) [code = 556031311] Future Scheduled [address] [facility] Test 00:00:00 malignant neoplasm of Medica l Center colon (procedure) [code = 059732056] Future Scheduled 65+ [facility]CCAL [facility] Test VACCINE (1 of 4 - PCV13) [code = 65+ PNEUMOCOCCAL VACCINE (1 of 4 - PCV13)] Future Scheduled COVID-19 [facility]ACCINE (1) [facility] [code = COVID-19 VACCINE (1)] Future Scheduled Hepatitis C screening [facility] Test (procedure) [code = 962085514] Future Scheduled BREAST CANCER [facility] Test SCREENING [code = BREAST CANCER SCREENING] Future Scheduled COLONOSCOPY SCREENING [facility] Test [code = COLONOSCOPY SCREENING] Future Scheduled SHINGLES VACCINES (#1) [facility] [code = SHINGLES VACCINES (#1)] Future Scheduled INFLUENZA VACCINE [facility] Test [code = INFLUENZA VACCINE] Encounters Start End Encounter Admission Attending Care Care Encounter Source Date/Time Date/Time Type Type Clinicians Facility Department ID 2021-02-05 Outpatient nullFlavo [facility] [id number] Memoria 13:04:57 r Medical 00 l [facility] 2021-02-05 OD DONAL MANSFIELD [id number] Me moria 13:04:57 00 [facility] 2021-02-03 Outpatient nullFlavo [facility] [id number] Memoria 17:47:23 r Medical 00 l [facility] 2021-02-03 OD DONAL MANSFIELD [id number] Il moria 17:47:23 00 [facility] 2019-08-31 Outpatient [facility] [id number] MH 09:50:05 2021-02-22 2021-02-22 Outpatient MAICOL MANSFIELD [id number] Memoria 10:45:00 10:45:00 05 [facility] 2021-02-22 2021-02-22 Outpatient MAICOL MAICOL [id number] Memoria 10:45:00 10:45:00 05 [facility] 2021-02-02 2021-02-[address]840[address]1 [id number] Methodi 13:11:53 23:59:00 Encounter Gianna Muller [id number] 3.430.2.7 Hospit a .3.951125 l .8 2021-02-02 2021-02-02 Outpatient [facility] [id number] [address] [place] [address] 00:00:00 00:00:[address] 2021-02-02 2021-02-02 Travel 1.2.840.1 1.2.374.768 [id number] Methodi 00:00:00 00:00:[address] 3.430.2.7 0.2.7.3.698 Ho spita .3.990754 084.8 l .8 2021-02-02 2021-02-02 Transcribe Bindal, 1.2.840.1 [id number] Methodi 00:00:00 00:00:00 Orders Gianna K. [address]1697.1.[address] 3.430.2.7 Hospit a .3.197167 l .8 2021-01-31 2021-02-01 Outpatient nullFlavo MNA [id number] Memoria 19:15:00 04:59:59 r Neurology 04 l Keshav Hanley 2021-01-31 2021-02-01 Outpatient nullFlavo MNA [id number] Memoria 19:15:00 04:59:59 r Neurology 04 l Keshav Hanley 2021-01-31 2021-01-31 Outpatient ZITA Zheng MISCHER [id number] 14:15:00 23:59:59 Paul 04 Patrice 2021-01-31 2021-01-31 Outpatient MHIE MHIE [id number] Memoria 14:15:00 14:15:00 04 l Talon 2021-01-26 2021-01-26 Outpatient PREET JULIO ENCGEN ENCGEN [id number] ENCGEN 00:00:00 00:00:00 ADMISSION YORDAN 2021-01-08 2021-01-08 Emergency EM Eve, [facility] HENOK [id number] [facility] 01:31:00 04:08:00 Zeus [id number] [facility] 2021-01-07 2021-01-07 Outpatient Vicente [facility] LATOYA [id number] [facility] 21:39:00 21:39:00 Zeny [id number] [facility] 2021-01-05 2021-01-05 Outpatient ÁNGEL JULIO RADI [id number] [facility] 18:37:00 18:37:00 YORDAN [id number] [facility] 2020-10-31 2020-11-01 Outpatient nullFlavo MNA [id number] Memoria 14:45:00 04:59:59 r Neurology 03 l Keshav Gardnerann 2020-10-31 2020-11-01 Outpatient nullFlavo MNA [id number] Memoria 14:45:00 04:59:59 r Neurology 03 l Keshav Gardnerann 2020-10-31 2020-10-31 Outpatient CLARICE ZhengSCHRADHA MHMISCHER [id number] 09:45:00 23:59:59 Paul Ibrahim 2020-10-31 2020-10-31 Outpatient MHIE MHIE [id number] Memoria 09:45:00 09:45:00 03 l [facility] 2020-10-24 2020-10-26 Outside nullFlavo MNA [id number] Memoria 15:11:50 04:59:59 Medical r Neurology 01 l Records Keshav Hanley 2020-10-24 2020-10-26 Outside nullFlavo MNA [id number] Memoria 15:11:50 04:59:59 Medical r Neurology 01 l Records Keshav Gardnerann 2020-10-24 2020-10-25 Outpatient MHMISCHER MHMISCHER [id number] 10:11:50 23:59:59 2020-10-13 2020-10-13 Ambulatory nullFlavo MNA [id number] Memoria 15:30:00 15:30:00 Pre-Reg r Neurology 02 l Keshav Gardnerann 2020-10-13 2020-10-13 Ambulatory nullFlavo MNA [id number] Memoria 15:30:00 15:30:00 Pre-Reg r Neurology 02 l Reed Talon 2020-10-13 2020-10-13 Outpatient MHIE MHIE [id number] Memoria 10:30:00 10:30:00 Berta Hanley 2020-10-13 2020-10-13 Outpatient CLARICE ZhengSCHRADHA MHMISCHER [id number] 10:30:00 10:30:00 Paul Berta Patrice 2020-08-24 2020-08-26 Outside nullFlavo MNA [id number] Memoria 17:52:51 05:59:59 Medical r Neurology 00 l Records Keshav Hanley 2020-08-24 2020-08-26 Outside nullFlavo MNA [id number] Memoria 17:52:51 05:59:59 Medical r Neurology 00 l Records Keshav Hanley 2020-08-24 2020-08-25 Outpatient MHMISCHER MHMISCHER [id number] 11:52:51 23:59:59 00 2020-08-17 2020-08-17 Ambulatory nullFlavo MNA [id number] Memoria 16:15:00 16:15:00 Pre-Reg r Neurology 01 l Keshav Hanley 2020-08-17 2020-08-17 Ambulatory nullFlavo MNA [id number] Memoria 16:15:00 16:15:00 Pre-Reg r Neurology 01 l Keshav Hanley 2020-08-17 2020-08-17 Outpatient MHIE MHIE [id number] Memoria 10:15:00 10:15:00 01 kalyani Hanley 2020-08-17 2020-08-17 [id number] 10:15:00 10:15:00 Paul 01 Patrice 2020-07-20 2020-07-21 Outpatient nullFlavo MNA [id number] Memoria 19:30:00 05:59:59 r Neurology 00 l Keshav Gardnerann 2020-07-20 2020-07-21 Outpatient nullFlavo MNA [id number] Memoria 19:30:00 05:59:59 r Neurology 00 l Keshav Gardnerann 2020-07-20 2020-07-20 Outpatient [facility]RAD[facility] [id number] 13:30:00 23:59:59 Paul Shoaib Ibrahim 2020-07-20 2020-07-20 Outpatient MHIE MHIE [id number] Memoria 13:30:00 13:30:00 00 kalyani Talon 2020-06-10 2020-06-10 [facility] 1.2.840.114 [id number] 00:00:00 00:00:00 Only Unassigned, ANNITA 350.1.13.10 [place] [facility] 4.2.7.2.686 [id number] 2020-05-26 2020-05-26 Day nullFlavo [facility] [id number] Memoria 13:45:00 20:35:00 Surgery r Talon 03 [facility] 2020-05-26 2020-05-26 Day nullFlavo [facility] [id number] Memoria 13:45:00 20:35:00 Surgery r Talon 03 [facility] 2020-05-26 2020-05-26 Outpatient Ti, MHSE MHSE [id number] 07:45:00 14:35:00 Blaine Sharon 2020-05-26 2020-05-26 Outpatient Ti, MHSE MHSE [id number] 07:45:00 14:35:00 Blaine Sharon 2020-05-26 2020-05-26 Outpatient MHSE MHSE [id number] MH 07:45:00 07:45:[address] [facility] [address] [facility] 2020-05-17 2020-05-17 Day nullFlavo [facility] [id number] Memoria 14:24:00 21:55:00 Surgery r Talon 02 [facility] 2020-05-17 2020-05-17 Day nullFlavo [facility] [id number] Memoria 14:24:00 21:55:00 Surgery r Talon 02 [facility] 2020-05-17 2020-05-17 Outpatient Ti, MHSE MHSE [id number] 08:24:00 15:55:00 Blaine Sharon 2020-05-17 2020-05-17 Outpatient Ti, MHSE MHSE [id number] 08:24:00 15:55:00 Blaine Sharon 2020-05-17 2020-05-17 Outpatient MHSE MHSE [id number] MH 08:24:00 08:24:[address] [facility] [address] [facility] 2020-04-05 2020-04-08 Inpatient nullFlavo [facility] [id number] Memoria 23:08:39 22:20:00 r Talon 01 [facility] 2020-04-05 2020-04-08 Inpatient nullFlavo [facility] [id number] Memoria 23:08:39 22:20:00 r Talon 01 l [facility] 2020-04-05 2020-04-08 Outpatient Srinivas Cerrato MHSE MHSE [id number] 18:08:39 17:20:00 Thal[place]ulath 2020-04-05 2020-04-08 Outpatient Srinivas Cerrato MHSE MHSE [id number] 18:08:39 17:20:00 Thalakulath 2020-04-06 2020-04-05 Inpatient E MHSE MED [id number] MH 12:24:00 20:31:00 [facility] 2019-03-10 2019-03-10 Day nullFlavo [facility] [id number] Memoria 15:07:00 17:53:00 Surgery r Talon 00 [facility] 2019-03-10 2019-03-10 Day nullFlavo [facility] [id number] Memoria 15:07:00 17:53:00 Surgery r Talon 00 [facility] 2019-03-10 2019-03-10 Outpatient Ti, MHSE MHSE [id number] 10:07:00 12:53:00 Blaine Cramer Sharon 2019-03-10 2019-03-10 Outpatient MHSE MHSE [id number] MH 10:07:00 10:07:00 [facility] 2019-01-16 2019-01-18 Observatio nullFlavo [facility] [id number] Memoria 18:29:00 20:39:00 n guilherme Hanley 02 [facility] 2019-01-16 2019-01-18 Observatio nullFlavo [facility] [id number] Memoria 18:29:00 20:39:00 dixie Hanley 02 [facility] 2019-01-16 2019-01-18 Outpatient Ti, MHSE MHSE [id number] 13:29:00 15:39:00 Blaine Hampton Sharon 2019-01-16 2019-01-16 Outpatient MHSE MHSE [id number] MH 13:29:00 13:29:00 [facility] 2012-05-19 2012-05-19 OR nullFlavo MH [place] [id number] Memoria 10:19:00 10:19:00 guilherme Hanley 2012-05-19 2012-05-19 OR nullFlavo [facility] [place] [id number] Memoria 10:19:00 10:19:00 r Medical 01 l [facility] 2012-01-10 2012-02-08 OR nullFlavo [facility] [id number] Memoria 09:00:00 23:59:00 r Medical 00 l [facility] 2012-01-10 2012-02-08 OR nullFlavo [facility] [id number] Memoria 09:00:00 23:59:00 r Medical 00 [facility] 2012-01-10 2012-01-10 Outpatient nullFlavo [facility] [id number] Memoria 09:00:00 09:00:00 r Medical 01 [facility] 2012-01-10 2012-01-10 Outpatient nullFlavo [facility] [id number] Memoria 09:00:00 09:00:00 r Medical 01 [facility] Results Test Description Test Time Test Comments Results Result Sour e Comments XR Cervical 2021-01-22 EXAMINATION: XR Methodi st Spine Ap Lateral 2 CERVICAL SPINE AP H ospital Flexion And 18:45:01 LATERAL FLEXION AND Extension EXTENSION CLINICAL HISTORY: M48.02 Spinal stenosis cervical region, STENOSIS COMPARISON: None. IMPRESSION: Cervical spine, 4 views. C3, C4, C5, C6 spinal laminectomies and right-sided lamina plasties are present. There is a minimal 2 mm retrolisthesis of C4 on C5. Straightening of the cervical lordosis is present. There is no evidence of dynamic instability. Vertebral body heights are maintained. Degenerative changes are present, most prominently at C3-C4, C4-C5 levels where there is significant loss of disc height endplate sclerosis and marginal ossified formation. Facet arthrosis and uncovertebral hypertrophy is also present at C3-C4, C4-C5, C5-C6 levels. Left carotid bifurcation atherosclerotic ossifications are present. [id number] Interface, Radiology Results 02/02/2021 1:48 PM CDT EXAMINATION: XR CERVICAL SPINE AP LATERAL FLEXION AND EXTENSIONCLINICAL HISTORY: M48.02 Spinal stenosis cervical region, STENOSISCOMPARISON: None.IMPRESSION:Cervi denise spine, 4 views.C3, C4, C5, C6 spinal laminectomies and right-sided lamina plasties are present.There is a minimal 2 mm retrolisthesis of C4 on C5. Straightening of the cervical lordosis is present. There is no evidence of dynamic instability.Vertebral body heights are maintained.Degenerati ve changes are present, most prominently at C3-C4, C4-C5 levels where there is significant loss of disc height endplate sclerosis and marginal ossified formation.Facet arthrosis and uncovertebral hypertrophy is also present at C3-C4, C4-C5, C5-C6 levels.Left carotid bifurcation atherosclerotic ossifications are present.[id number] - CT ABD PELVIS 2020-12-22 W/O CONT 8 02:24:00 [facility] 1955 Sex: F Name: EVIE RICKS [facility] : 1955 Age/S: 65 / F [id number] Unit #: [id number] Loc: [place] [address] Phys: Zeus Prado DO Acct: [id number] Dis Date: Status: REG ER PHONE #: [phone] Exam Date: 01/08/2021 0205 FAX #: Reason: r/o ruptured viscous EXAMS: CPT: [id number] CT ABD PELVIS W/O CONT [address]162 CT ABDOMEN AND PELVIS W/O CONTRAST Location code: B2 CLINICAL INDICATIONS: Rule out ruptured viscus. TECHNIQUE: Volumetric acquisition of abdomen from the level of the domes of the diaphragm to the symphysis pubis using 3 mm collimation without the use of intravenous or oral contrast. Axial and coronal images were reviewed. Dose lowering technique with automatic exposure control utilized. COMPARISON: CT chest same day FINDINGS: Lung bases demonstrate a mild to moderate right effusion with atelectasis. Liver, gallbladder, spleen, pancreas, and bilateral adrenal glands are within normal limits. Kidneys are atrophic bilaterally, without nephrolithiasis or hydronephrosis. 5.2 x 4.7 x 6.3 cm solid mass off the inferior pole right kidney appears suspicious for a neoplasm. There is a minimal free air beneath the right hemidiaphragm. Additionally, small foci of free air along the anterior abdomen. Patient does have a peritoneal dialysis catheter which may be the source. Visualized small bowel loops appear within normal limits. Aorta tapers normally without aneurysmal dilatation. Aortoiliac atherosclerosis. CT PELVIS: Urinary bladder is within normal limits. Mild free fluid in the pelvis. Osseous structures are grossly within normal limits. IMPRESSION: PAGE 1 Signed Report (CONTINUED) Name: EVIE RICKS : 1955 Age/S: 65 / F [id number] Unit #: [id number] Loc: [place] [address] Phys: Zeus Prado DO Acct: [id number] Dis Date: Status: REG ER PHONE #: [phone] Exam Date: 01/08/2021 0205 FAX #: Reason: r/o ruptured viscous EXAMS: CPT: [id number] CT ABD PELVIS W/O CONT 36650 <Continued> 1. Minimal free air beneath the right hemidiaphragm along the anterior abdomen is likely from patient's peritoneal dialysis catheter. No definite suggestion of a perforated viscus. 2. Mild free fluid in the pelvis may be also related to the PD catheter. 3. Atrophic kidneys bilaterally with a 6.3 cm mass off the inferior pole right kidney suspicious for neoplasm. 4. Mild to moderate right effusion with atelectasis. at 0224 Reported and signed by: Nawaf Mccoy M.D. CC: Zeus Prado DO Technologist:Susana Ordaz RT(R)(CT) CTDI: DLP: Trnscb Date/Time: 01/08/2021 (223) [email or web address] Orig Print D/T: S: 01/08/2021 (226) PAGE 2 Signed Report - CT CHEST W/O 2020-12-22 CONTRAST 7 22:59:00 [facility] : 1955 Sex: F Name: EVIE RICKS [facility] : 1955 Age/S: 65 / F [id number] [address] Unit #: [id number] Loc: [place] [address] Phys: Zeny Zhang MD Acct: [id number] Dis Date: Status: REG REF PHONE #: [phone] Exam Date: 01/07/20212153 FAX #: Reason: PLEURAL EFFUSION EXAMS: CPT: [id number] CT CHEST W/O CONTRAST [address] CT chest without contrast Location : B2 HISTORY: Shortness of breath, pleural effusion COMMENT: Multidetector slices through the chest were obtained without contrast. Dose lowering technique with automatic exposure control utilized. The heart is mildly enlarged. Mild pericardial effusion. Aorta and great vessels are within normal limits Pulmonary trunk is unremarkable No mediastinal lymphadenopathy. There is a moderate right effusion with atelectasis. Mild left basilar atelectasis. Minimal interstitial edema. Evaluation of the upper abdomen demonstrates slight contour nodularity to the liver. Trace free air beneath the right hemidiaphragm Osseous structures demonstrate mild arthritic change. IMPRESSION: 1. Mild CHF, with mild cardiomegaly and a mild pericardial effusion. 2. Moderate right effusion with atelectasis. 3. Trace free air the right hemidiaphragm. Clinical correlation advised. at 2259 Reported and signed by: Nawaf Mccoy M.D. CC: Zeny Zhang MD Technologist:Carmen Rice, RT(R) CTDI: DLP: Trnscb Date/Time: 01/07/2021 (2377) [email or web address] Orig Print D/T: S: 01/07/2021 (1087) PAGE 1 Signed Report - CT C-SPINE W/O 2020-12-22 CONT 7 15:10:00 [facility] : 1955 Sex: F [facility]: [facility] [facility] : 1955 Age/S: 65 / F [id number] Unit #: [id number] Loc: [place] [address] Phys: Zeny Zhang MD Acct: [id number] Dis Date: Status: REG REF PHONE #: [phone] Exam Date: 01/07/2021 [facility]5 FAX #: Reason: S/P CERVICAL LAMINECTOMY EXAMS: CPT: [id number] CT C-SPINE W/O CONT 93691 EXAM: CT CERVICAL SPINE WITHOUT CONTRAST HISTORY: 65 years -old Female with S/P CERVICAL LAMINECTOMY ADMITTING DIAGNOSIS: CVA, cervical laminectomy LOCATION CODE: C3 COMPARISON: None TECHNIQUE: Computed tomography of cervical spine performed with axial images obtained from skull base through T1. Coronal and sagittal 2-D images reconstructed at CT workstation and submitted for review at an independent reading station. Automated exposure reduction (Auto mA / Smart mA) was utilized in compliance with ACR image wisely. Total Exam DLP : 367 mGy/cm CTDI vol: 16.6 mGy FINDINGS : Severe disc space narrowing with endplate sclerosis osteophytosis involving C3-C4, C4-C5, and mildly involving C5-C6 and C6-C7. The left neural foramen is mildly narrow at C4-C5. The right neural foramen appears unremarkable. Metallic plates and screws are seen fixating the posterior element of C3, C4, C5, and C6 on the right side with evidence of multiple cortical disruption. The left lamina also demonstrate evidence of multiple cortical disruption as well at these level. However no metallic plates and screw can be seen at those levels. Prevertebral soft tissues unremarkable. No evidence of central stenosis. There is evidence of soft tissue fatty stranding overlying the spinous process suggests edema of the mid to lower cervical spine. Incidentally there is evidence of a large right pleural effusion. IMPRESSION: 1. Multilevel degenerative disc disease throughout the cervical spine, PAGE 1 Signed Report (CONTINUED) Name: EVIE RICKS [facility] : 1955 Age/S: 65 / F [id number] Unit #: [id number] Loc: [place] [address] Phys: Zeny Zhang MD Acct: [id number] Dis Date: Status: REG REF PHONE #: [phone] Exam Date: 01/07/2021 1452 FAX #: Reason: S/P CERVICAL LAMINECTOMY EXAMS: CPT: [id number] CT C-SPINE W/O CONT 38716 <Continued> as discussed above. 2. 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 This report was generated with usage of voice recognition software. at 1510 Reported and signed by: Jayden Terrazas M.D. CC: Zeny Zhang MD Technologist:RT Roberth(R); Carmen Perdomo CTDI: DLP: Trnscb Date/Time: 01/07/2021 (151) t.[email or web address] Orig Print D/T: S: 01/07/2021 (9553) PAGE 2 Signed Report - CT HEAD/BRAIN 2020-12-22 W/O CONT 5 19:57:00 [facility] 1955 Sex: F Name: EVIE RICKS [facility] : 1955 Age/S: 65 / F [id number] Unit #: [id number] Loc: [place] [address] Phys: Undefined Provider Acct: [id number] Dis Date: Status: REG REF PHONE #: [phone] Exam Date: 01/05/2021 1844 FAX #: Reason: flat affect EXAMS: CPT: [id number] CT HEAD/BRAIN W/O CONT 10906 Exam: CT head without contrast. Location: H 12 History: flat affect Technique: Unenhanced spiral slices were taken from the base of the skull, through the vertex. One or more of the following dose reduction techniques were used: Automated exposure control, adjustment of the mA and/or kV according to patient size, and/or utilization of iterative reconstruction technique. Findings: No acute intracranial abnormality is identified. Prominence of the gyri and sulci is consistent with mild, diffuse cerebral atrophy. Periventricular ischemic white matter changes are present along with scattered microinfarcts in the basal ganglia, periventricular and subcortical deep white matter. The brain parenchyma and the CSF spaces are otherwise unremarkable. No mass, midline shift, hemorrhage, edema or hydrocephalus is seen. The visualized paranasal sinuses are clear. The mastoid air cells are well pneumatized. The bony calvarium is intact. Impression: 1. No acute intracranial abnormality. 2. Atrophy. 3. Atherosclerotic microvascular disease. 4. Otherwise unremarkable exam. at 195 Reported and signed by: John Alonso M.D. CC: Technologist:Lisandra Murguia RT(R)(CT) CTDI: DLP: Trnscb Date/Time: 01/05/2021 (1956) Alka.FC Orig Print D/T: S: 01/05/2021 (1999) PAGE [address], SPINE, 2020-12-22 Unlisted CERVICAL, WO 3 Reason for CONTRAST 11:25:00 Exam - Click [facility] Yes and Enter [facility]: [facility], Below->YesUnli EVIE raymond Reason : 1955 for Exam->post Sex: op scan F FI NAL REPORT EXAM: CERVICAL SPINE CT WITHOUT CONTRAST CLINICAL INDICATION: Neck pain, prior surgery, neg xraypost op scan COMPARISON: December 29, 2020 TECHNIQUE: Axially oriented 2.5 mm thick images were obtained through the entire cervical spine, without contrast. Sagittal and coronal reformations are also provided in osseous and soft tissue algorithms. DOSE REDUCTION: Dose modulation, iterative reconstruction, and/or weight-based adjustment of the mA/kV was utilized to reduce the radiation dose to as low as reasonably achievable. FINDINGS:There has been interval revision of the reconstruction along the right C6 lamina, improving alignment and decreasing medial displacement at this level. Remaining reconstructed levels are grossly unchanged from prior examination. Overall alignment is satisfactory. Expected operative changes are seen in the superficial soft tissue structures. IMPRESSION: Interval revision of the surgical construct at C6 with improved alignment. No adverse postprocedural findings. Remaining reconstructed levels are stable. Signed: JR Contreras Robert MDReport Verified Date/Time: 01/03/2021 11:25:10 Reading Location: [facility] Radiology Reading Room spine 2020-12-22 Interface, External [facility] cervical without 3 Ris In - 01/03/2021 - Medical IV contrast 11:25:00 11:27 AM CDTFINAL Raquel r REPORT EXAM: CERVICAL SPINE CT WITHOUT CONTRAST CLINICAL INDICATION: Neck pain, prior surgery, neg xraypost op scan COMPARISON: December 29, 2020 TECHNIQUE: Axially oriented 2.5 mm thick images were obtained through the entire cervical spine, without contrast. Sagittal and coronal reformations are also provided in osseous and soft tissue algorithms. DOSE REDUCTION: Dose modulation, iterative reconstruction, and/or weight-based adjustment of the mA/kV was utilized to reduce the radiation dose to as low as reasonably achievable. FINDINGS:There has been interval revision of the reconstruction along the right C6 lamina, improving alignment and decreasing medial displacement at this level. Remaining reconstructed levels are grossly unchanged from prior examination. Overall alignment is satisfactory. Expected operative changes are seen in the superficial soft tissue structures. IMPRESSION: Interval revision of the surgical construct at C6 with improved alignment. No adverse postprocedural findings. Remaining reconstructed levels are stable. Signed: JR Contreras Robert MDReport Verified Date/Time: 01/03/2021 11:25:10 Reading Location: [facility] Radiology Reading Room , CHEST, 1 2020-12-22 Reason for VIEW, NON DEPT 3 exam:->pneumon 08:36:00 iaShould this CHI be performed [facility] at the CENTERName: [facility], bedside?->Yes EVIE ONI : 1955 Sex: F FI NAL REPORT INDICATION:Pneumonia. COMPARISON:12/30/2020. TECHNIQUE:Frontal view of chest. FINDINGS:Right subclavian approach central venous catheter tip at atrial caval junction.Elevated right hemidiaphragm.Persist ent infiltrate in right lower lobe.Mild pulmonary vascular congestion.No pleural effusion or pneumothorax. IMPRESSION:Right lower lobe infectious infiltrate persists. Signed: Pal Reed MDReport Verified Date/Time: 01/03/2021 08:36:21 Reading Location: [facility] Radiology Reading Room chest 1 view 2020-12-22 Interface, External [facility] portable / 3 Ris In - 01/03/2021 - Med ical bedside 08:36:00 8:38 AM CDTFINAL Center REPORT INDICATION:Pneumonia. COMPARISON:12/30/2020. TECHNIQUE:Frontal view of chest. FINDINGS:Right subclavian approach central venous catheter tip at atrial caval junction.Elevated right hemidiaphragm.Persist ent infiltrate in right lower lobe.Mild pulmonary vascular congestion.No pleural effusion or pneumothorax. IMPRESSION:Right lower lobe infectious infiltrate persists. Signed: Pal Reed MDReport Verified Date/Time: 01/03/2021 08:36:21 Reading Location: [facility] Radiology Reading Room Comprehensive metabolic panel 2021-01-03 05:56:00 Test Item Value Reference Range Interpretation Comme nts Protein, Total (test 5.8 See_Comment L [Autom ated message] The code = 2885-2) system which generated this result tra nsmitted reference range : 6.0 - 8.5 gm/dL. The reference range was not u sed to interpret this result as normal/abnormal . Albumin (test code = 3.0 g/dL 3.5-5 L 61490-2) Alkaline Phosphatase 48 U/L 30-115 (test code = 6768-6) Total Bilirubin (test 0.4 mg/dL 0.1-1.2 code = 1975-2) Sodium (test code = 134 meq/L 135-148 L 2951-2) Potassium (test code = 3.9 meq/L 3.6-5.5 2823-3) Chloride (test code = 98 meq/L 98-106 2075-0) CO2 (test code = 2027-9) 24 meq/L 20-29 BUN (test code = 3094-0) 82 mg/dL 10-26 H Creatinine (test code = 7.00 mg/dL 0.5-1.2 H 2160-0) Glucose (test code = 198 mg/dL 70-110 H 2345-7) Calcium (test code = 8.8 mg/dL 8.5-10.5 04170-6) AST (test code = 1920-8) 29 U/L 5-40 ALT (test code = 1742-6) 6 U/L 5-50 EGFR (test code = 7 mL/min/1.73 [place] [address]-1) ACCURATE CRE ATININE CLEARANCE IN [place] EDICTING GLOMERULAR FILT RATION RATE. ESTIMATED GFR IS NOT APPLICABLE FOR DIALYSIS PATIEN TS. BEKAH (test code = BEKAH) University Tutor ID - [id number] ID - [id number] ID - [id number] ID - [id number] ID - [id number] ID - [id number] ID - [id number] ID - [id number] ID - [id number] ID - [id number] ID - [id number] ID - [id number] ID - [id number] ID - [id number] ID - [id number] ID - [id number] Lab Interpretation (test Abnormal code = 39211-3) [facility] [id number] 05:56:00 Test Item Value Reference Range Interpretation Comments TOTAL PROTEIN 5.8 gm/dL 6.0-8.5 L (BEAKER) (test code = 770) ALBUMIN (BEAKER) 3.0 g/dL 3.5-5.0 L (test code = 1145) ALKALINE PHOSPHATASE 48 U/L 30-115 (BEAKER) (test code = 346) BILIRUBIN TOTAL 0.4 mg/dL 0.1-1.2 (BEAKER) (test code = 377) SODIUM (BEAKER) (test 134 meq/L 135-148 L code = 381) POTASSIUM (BEAKER) 3.9 meq/L 3.6-5.5 (test code = 379) CHLORIDE (BEAKER) 98 meq/L 98-106 (test code = 382) CO2 (BEAKER) (test 24 meq/L 20-29 code = 355) BLOOD UREA NITROGEN 82 mg/dL 10-26 H (BEAKER) (test code = 354) CREATININE (BEAKER) 7.00 mg/dL 0.50-1.20 H (test code = 358) GLUCOSE RANDOM 198 mg/dL 70-110 H (BEAKER) (test code = 652) CALCIUM (BEAKER) 8.8 mg/dL 8.5-10.5 (test code = 697) AST (SGOT) (BEAKER) 29 U/L 5-40 (test code = 353) ALT (SGPT) (BEAKER) 6 U/L 5-50 (test code = 347) EGFR (BEAKER) (test 7 mL/min/1.73 ESTIMAT ED GFR IS code = 1092) sq m NOT ACCURATE CREATININE CLEARANCE IN PREDICTING GLOMERULAR FILTRATION RATE . ESTIMATED GFR I S NOT APPLICABLE FOR DIALYSIS PATIEN TS. University Tutor ID - [id number] ID - [id number] ID - [id number] ID - [id number] ID - [id number] ID - [id number] ID - [id number] ID - [id number] ID - [id number] ID - [id number] ID - [id number] ID - [id number] ID - [id number] ID - [id number] ID - [id number] ID - [id number] [id number] 05:51:00 Test Item Value Reference Range Interpretation Comments Magnesium (test code = 2.6 mg/dL 1.5-3 91333-4) BEKAH (test code = BEKAH) University Tutor ID - [id number] ID - [id number] ID - [id number] ID - [id number] Lab Interpretation (test Normal code = 57905-1) [facility] 05:51:00 Test Item Value Reference Range Interpretation Comments MAGNESIUM (BEAKER) (test code = 2.6 mg/dL 1.5-3.0 627) University Tutor ID - [id number] ID - [id number] ID - [id number] ID - [id number] with platelet count + automated [id number] 05:38:00 Test Item Value Reference Range Interpretation Comments WBC (test code = 6690-2) 11.9 See_Comment H [A utomated message] The system [employer] generated this result transmitted ref erence range: 4.0 - 10 .0 K/L. The refe rence range was not u sed to interpret this result as normal/abnor mal. RBC (test code = 789-8) 3.68 See_Comment L [Au tomated message] The system [employer] generated this result transmitted ref erence range: 4.00 - 5 .00 M/L. The refe rence range was not u sed to interpret this result as normal/abnor mal. MCHC (test code = 786-4) 32.1 See_Comment L [A utomated message] The system [employer] generated this result transmitted ref erence range: 32.0 - 3 6.0 GM/DL. The refe rence range was not u sed to interpret this result as normal/abnor mal. Hematocrit (test code = 32.4 % 36-46 L 4544-3) MCV (test code = 787-2) 88.0 fL 82-99 MCH (test code = 785-6) 28.3 pg 27-33 RDW (test code = 788-0) 13.7 % 12-15 Platelets (test code = 190 See_Comment [Aut omated message] 777-3) The system [employer] generated this result transmitted ref erence range: 150 - 43 0 K/CU MM. The referen ce range was not u sed to interpret this result as normal/abnor mal. MPV (test code = 11.3 fL 6-11.5 48103-3) nRBC (test code = 413) 0 See_Comment [Aut omated message] The system [employer] generated this result transmitted ref erence range: 0 - 0 /1 00 WBC. The refere nce range was not u sed to interpret this result as normal/abnor mal. % Neutros (test code = 87 % 429) % Lymphs (test code = 3 % 430) % Monos (test code = 7 % 431) % Eos (test code = 432) 0 % % Baso (test code = 437) 0 % # Neutros (test code = 10.38 See_Comment H [Aut omated message] 670) The system [employer] generated this result transmitted ref erence range: 1.80 - 8 .00 K/L. The refe rence range was not u sed to interpret this result as normal/abnor mal. # Lymphs (test code = 0.32 See_Comment L [Auto mated message] 414) The system [employer] generated this result transmitted ref erence range: 1.48 - 4 .50 K/L. The refe rence range was not u sed to interpret this result as normal/abnor mal. # Monos (test code = 0.84 See_Comment [Autom ated message] 415) The system [employer] generated this result transmitted ref erence range: 0.00 - 1 .30 K/L. The refe rence range was not u sed to interpret this result as normal/abnor mal. # Eos (test code = 416) 0.00 See_Comment [Au tomated message] The system [employer] generated this result transmitted ref erence range: 0.00 - 0 .50 K/L. The refe rence range was not u sed to interpret this result as normal/abnor mal. # Baso (test code = 417) 0.02 See_Comment [A utomated message] The system [employer] generated this result transmitted ref erence range: 0.00 - 0 .20 K/L. The refe rence range was not u sed to interpret this result as normal/abnor mal. Immature 3 % 0-0 H Granulocytes-Relative (test code = 2801) Lab Interpretation (test Abnormal code = 45615-0) [facility] W/PLT COUNT & AUTO [id number] 05:38:00 Test Item Value Reference Range Interpretation Comments WHITE BLOOD CELL COUNT (BEAKER) 11.9 K/ L 4.0-10.0 H (test code = 775) RED BLOOD CELL COUNT (BEAKER) 3.68 M/ L 4.00-5.00 L (test code = 761) HEMOGLOBIN (BEAKER) (test code = 10.4 GM/DL 12.0-15.5 L 410) HEMATOCRIT (BEAKER) (test code = 32.4 % 36.0-46.0 L 411) MEAN CORPUSCULAR VOLUME (BEAKER) 88.0 fL 82.0-99.0 (test code = 753) MEAN CORPUSCULAR HEMOGLOBIN 28.3 pg 27.0-33.0 (BEAKER) (test code = 751) MEAN CORPUSCULAR HEMOGLOBIN CONC 32.1 GM/DL 32.0-36.0 (BEAKER) (test code = 752) RED CELL DISTRIBUTION WIDTH 13.7 % 12.0-15.0 (BEAKER) (test code = 412) PLATELET COUNT (BEAKER) (test 190 K/CU MM 150-430 code = 756) MEAN PLATELET VOLUME (BEAKER) 11.3 fL 6.0-11.5 (test code = 754) NUCLEATED RED BLOOD CELLS 0 /100 WBC 0-0 (BEAKER) (test code = 413) NEUTROPHILS RELATIVE PERCENT 87 % (BEAKER) (test code = 429) LYMPHOCYTES RELATIVE PERCENT 3 % (BEAKER) (test code = 430) MONOCYTES RELATIVE PERCENT 7 % (BEAKER) (test code = 431) EOSINOPHILS RELATIVE PERCENT 0 % (BEAKER) (test code = 432) BASOPHILS RELATIVE PERCENT 0 % (BEAKER) (test code = 437) NEUTROPHILS ABSOLUTE COUNT 10.38 K/ L 1.80-8.00 H (BEAKER) (test code = 670) LYMPHOCYTES ABSOLUTE COUNT 0.32 K/ L 1.48-4.50 L (BEAKER) (test code = 414) MONOCYTES ABSOLUTE COUNT (BEAKER) 0.84 K/ L 0.00-1.30 (test code = 415) EOSINOPHILS ABSOLUTE COUNT 0.00 K/ L 0.00-0.50 (BEAKER) (test code = 416) BASOPHILS ABSOLUTE COUNT (BEAKER) 0.02 K/ L 0.00-0.20 (test code = 417) IMMATURE GRANULOCYTES-RELATIVE 3 % 0-0 H PERCENT (BEAKER) (test code = 2801) Basic Metabolic [id number] 06:17:00 Test Item Value Reference Range Interpretation Comments Sodium (test code = 135 meq/L 916-199 8170-2) Potassium (test code = 4.0 meq/L 3.6-5.5 2823-3) Chloride (test code = 98 meq/L 98-106 5-0) CO2 (test code = 24 meq/L -8-9) BUN (test code = 71 mg/dL 10-26 H 3094-0) Creatinine (test code 6.95 mg/dL 0.5-1.2 H = 2160-0) Glucose (test code = 202 mg/dL 70-110 H 2345-7) Calcium (test code = 8.7 mg/dL 8.5-10.5 97350-5) EGFR (test code = 7 mL/min/1.73 [place] [address]-3) NOT ACCURATE CREATININE CLEARANCE IN PREDICTING GLOMERULAR FILTRATION RATE . ESTIMATED GFR I S NOT APPLICABLE FOR DIALYSIS PATIENTS. BEKAH (test code = BEKAH) University Tutor ID - [id number] ID - [id number] ID - [id number] ID - [id number] ID - [id number] ID - [id number] ID - [id number] ID - [id number] ID - WUOT52Korpyhrn ID - [id number] ID - [id number] ID - [id number] ID - [id number] Lab Interpretation Abnormal (test code = 90872-7) [facility] METABOLIC [id number] 06:17:00 Test Item Value Reference Range Interpretation Comments SODIUM (BEAKER) 135 meq/L 135-148 (test code = 381) POTASSIUM (BEAKER) 4.0 meq/L 3.6-5.5 (test code = 379) CHLORIDE (BEAKER) 98 meq/L 98-106 (test code = 382) CO2 (BEAKER) (test 24 meq/L - code = 355) BLOOD UREA NITROGEN 71 mg/dL 10-26 H (BEAKER) (test code = 354) CREATININE (BEAKER) 6.95 mg/dL 0.50-1.20 H (test code = 358) GLUCOSE RANDOM 202 mg/dL 70-110 H (BEAKER) (test code = 652) CALCIUM (BEAKER) 8.7 mg/dL 8.5-10.5 (test code = 697) EGFR (BEAKER) (test 7 mL/min/1.73 ESTIMAT ED GFR IS code = 1092) sq m NOT ACCURATE CREATININE CLEARANCE IN PREDICTING GLOMERULAR FILTRATION RATE . ESTIMATED GFR I S NOT APPLICABLE FOR DIALYSIS PATIEN TS. University Tutor ID - [id number] ID - [id number] ID - [id number] ID - [id number] ID - [id number] ID - [id number] ID - [id number] ID - WPPZ16Tkoxqjnm ID - ARCQ20Kjayckdn ID - [id number] ID - [id number] ID - WBAQ90Rvajazqt ID - [id number] W/PLT COUNT & AUTO [id number] 06:06:00 Test Item Value Reference Range Interpretation Comments WHITE BLOOD CELL COUNT (BEAKER) 9.3 K/ L 4.0-10.0 (test code = 775) RED BLOOD CELL COUNT (BEAKER) 3.46 M/ L 4.00-5.00 L (test code = 761) HEMOGLOBIN (BEAKER) (test code = 9.9 GM/DL 12.0-15.5 L 410) HEMATOCRIT (BEAKER) (test code = 30.6 % 36.0-46.0 L 411) MEAN CORPUSCULAR VOLUME (BEAKER) 88.4 fL 82.0-99.0 (test code = 753) MEAN CORPUSCULAR HEMOGLOBIN 28.6 pg 27.0-33.0 (BEAKER) (test code = 751) MEAN CORPUSCULAR HEMOGLOBIN CONC 32.4 GM/DL 32.0-36.0 (BEAKER) (test code = 752) RED CELL DISTRIBUTION WIDTH 13.8 % 12.0-15.0 (BEAKER) (test code = 412) PLATELET COUNT (BEAKER) (test 175 K/CU MM 150-430 code = 756) MEAN PLATELET VOLUME (BEAKER) 11.2 fL 6.0-11.5 (test code = 754) NUCLEATED RED BLOOD CELLS 0 /100 WBC 0-0 (BEAKER) (test code = 413) NEUTROPHILS RELATIVE PERCENT 92 % (BEAKER) (test code = 429) LYMPHOCYTES RELATIVE PERCENT 2 % (BEAKER) (test code = 430) MONOCYTES RELATIVE PERCENT 4 % (BEAKER) (test code = 431) EOSINOPHILS RELATIVE PERCENT 0 % (BEAKER) (test code = 432) BASOPHILS RELATIVE PERCENT 0 % (BEAKER) (test code = 437) NEUTROPHILS ABSOLUTE COUNT 8.61 K/ L 1.80-8.00 H (BEAKER) (test code = 670) LYMPHOCYTES ABSOLUTE COUNT 0.21 K/ L 1.48-4.50 L (BEAKER) (test code = 414) MONOCYTES ABSOLUTE COUNT (BEAKER) 0.36 K/ L 0.00-1.30 (test code = 415) EOSINOPHILS ABSOLUTE COUNT 0.00 K/ L 0.00-0.50 (BEAKER) (test code = 416) BASOPHILS ABSOLUTE COUNT (BEAKER) 0.01 K/ L 0.00-0.20 (test code = 417) IMMATURE GRANULOCYTES-RELATIVE 1 % 0-0 H PERCENT (BEAKER) (test code = 2801) BASIC METABOLIC [id number] 06:09:00 Test Item Value Reference Range Interpretation Comments SODIUM (BEAKER) 136 meq/L 135-148 (test code = 381) POTASSIUM (BEAKER) 3.7 meq/L 3.6-5.5 (test code = 379) CHLORIDE (BEAKER) 99 meq/L 98-106 (test code = 382) CO2 (BEAKER) (test 24 meq/L 20-29 code = 355) BLOOD UREA NITROGEN 58 mg/dL 10-26 H (BEAKER) (test code = 354) CREATININE (BEAKER) 6.55 mg/dL 0.50-1.20 H (test code = 358) GLUCOSE RANDOM 192 mg/dL 70-110 H (BEAKER) (test code = 652) CALCIUM (BEAKER) 8.9 mg/dL 8.5-10.5 (test code = 697) EGFR (BEAKER) (test 8 mL/min/1.73 ESTIMAT ED GFR IS code = 1092) sq m NOT ACCURATE CREATININE CLEARANCE IN PREDICTING GLOMERULAR FILTRATION RATE . ESTIMATED GFR I S NOT APPLICABLE FOR DIALYSIS PATIEN TS. University Tutor ID - [id number] ID - [id number] ID - [id number] ID - wyrg25Fjjuemdw ID - pkwo73Pzxbppar ID - [id number] ID - gqce90Xtmcqwfm ID - maiz28Rphafpuk ID - lhbr17Tjmaqsxe ID - [id number] 05:54:00 Test Item Value Reference Range Interpretation Comments Phosphorus (test code = 4.2 mg/dL 2.5-4.5 2777-1) BEKAH (test code = BEKAH) University Tutor ID - [id number] ID - [id number] ID - cpnr04Cagkefuu ID - [id number] Lab Interpretation (test Normal code = 72734-8) [facility] 05:54:00 Test Item Value Reference Range Interpretation Comments PHOSPHORUS (BEAKER) (test code = 4.2 mg/dL 2.5-4.5 604) University Tutor ID - [id number] ID - zphm36Qketcyos ID - tkzq97Pkrpqrvo ID - [id number] CBC W/PLT COUNT & AUTO [id number] 05:47:00 Test Item Value Reference Range Interpretation Comments WHITE BLOOD CELL COUNT (BEAKER) 11.5 K/ L 4.0-10.0 H (test code = 775) RED BLOOD CELL COUNT (BEAKER) 3.35 M/ L 4.00-5.00 L (test code = 761) HEMOGLOBIN (BEAKER) (test code = 9.4 GM/DL 12.0-15.5 L 410) HEMATOCRIT (BEAKER) (test code = 30.0 % 36.0-46.0 L 411) MEAN CORPUSCULAR VOLUME (BEAKER) 89.6 fL 82.0-99.0 (test code = 753) MEAN CORPUSCULAR HEMOGLOBIN 28.1 pg 27.0-33.0 (BEAKER) (test code = 751) MEAN CORPUSCULAR HEMOGLOBIN CONC 31.3 GM/DL 32.0-36.0 L (BEAKER) (test code = 752) RED CELL DISTRIBUTION WIDTH 13.9 % 12.0-15.0 (BEAKER) (test code = 412) PLATELET COUNT (BEAKER) (test 163 K/CU MM 150-430 code = 756) MEAN PLATELET VOLUME (BEAKER) 11.4 fL 6.0-11.5 (test code = 754) NUCLEATED RED BLOOD CELLS 0 /100 WBC 0-0 (BEAKER) (test code = 413) NEUTROPHILS RELATIVE PERCENT 92 % (BEAKER) (test code = 429) LYMPHOCYTES RELATIVE PERCENT 2 % (BEAKER) (test code = 430) MONOCYTES RELATIVE PERCENT 5 % (BEAKER) (test code = 431) EOSINOPHILS RELATIVE PERCENT 0 % (BEAKER) (test code = 432) BASOPHILS RELATIVE PERCENT 0 % (BEAKER) (test code = 437) NEUTROPHILS ABSOLUTE COUNT 10.63 K/ L 1.80-8.00 H (BEAKER) (test code = 670) LYMPHOCYTES ABSOLUTE COUNT 0.24 K/ L 1.48-4.50 L (BEAKER) (test code = 414) MONOCYTES ABSOLUTE COUNT (BEAKER) 0.54 K/ L 0.00-1.30 (test code = 415) EOSINOPHILS ABSOLUTE COUNT 0.00 K/ L 0.00-0.50 (BEAKER) (test code = 416) BASOPHILS ABSOLUTE COUNT (BEAKER) 0.01 K/ L 0.00-0.20 (test code = 417) IMMATURE GRANULOCYTES-RELATIVE 1 % 0-0 H PERCENT (BEAKER) (test code = 2801) [id number] 15:01:00 Test Item Value Reference Range Interpretation Comments PTT (test code = 33626-4) 26.9 See_Comment Fi nal Information (Auto Output) [Automated mess age] The system [employer] generated this result transmitted ref erence range: 23.0 - 3 5.0 seconds. The re ference range was not u sed to interpret this result as normal/abnor mal. Lab Interpretation (test Normal code = 01193-1) [facility] Test Item Value Reference Range Interpretation Comments PARTIAL THROMBOPLASTIN 26.9 seconds 23.0-35.0 Final Information TIME (BEAKER) (test (Auto Ou tput) code = 760) BASIC METABOLIC [id number] 07:06:00 Test Item Value Reference Range Interpretation Comments SODIUM (BEAKER) 137 meq/L 135-148 (test code = 381) POTASSIUM (BEAKER) 4.4 meq/L 3.6-5.5 Specimen markedly (test code = 379) hemolyzed CHLORIDE (BEAKER) 101 meq/L 98-106 (test code = 382) CO2 (BEAKER) (test 24 meq/L 20-29 code = 355) BLOOD UREA NITROGEN 53 mg/dL 10-26 H (BEAKER) (test code = 354) CREATININE (BEAKER) 6.47 mg/dL 0.50-1.20 H Specimen markedly (test code = 358) hemolyzed GLUCOSE RANDOM 136 mg/dL 70-110 H (BEAKER) (test code = 652) CALCIUM (BEAKER) 9.3 mg/dL 8.5-10.5 (test code = 697) EGFR (BEAKER) (test 8 mL/min/1.73 ESTIMAT ED GFR IS code = 1092) sq m NOT ACCURATE CREATININE CLEARANCE IN PREDICTING GLOMERULAR FILTRATION RATE . ESTIMATED GFR I S NOT APPLICABLE FOR DIALYSIS PATIEN TS. University Tutor ID - LITOOperator ID - LITOOperator ID - LITOOperator ID - LITOOperator ID - LITOOperator ID - LITOOperator ID - LITOOperator ID - LITOOperator ID - LITOOperator ID - LITOOperator ID - LITOOperator ID - LITOOperator ID - KRYSTA [id number] 06:03:00 Test Item Value Reference Range Interpretation Comments PHOSPHORUS (BEAKER) 4.2 mg/dL 2.5-4.5 Specimen markedly (test code = 604) hemolyzed University Tutor ID - LITOOperator ID - LITOOperator ID - LITOOperator ID - LITOCBC W/PLT COUNT & AUTO [id number] 05:46:00 Test Item Value Reference Range Interpretation Comments WHITE BLOOD CELL COUNT (BEAKER) 8.2 K/ L 4.0-10.0 (test code = 775) RED BLOOD CELL COUNT (BEAKER) 3.21 M/ L 4.00-5.00 L (test code = 761) HEMOGLOBIN (BEAKER) (test code = 9.4 GM/DL 12.0-15.5 L 410) HEMATOCRIT (BEAKER) (test code = 29.1 % 36.0-46.0 L 411) MEAN CORPUSCULAR VOLUME (BEAKER) 90.7 fL 82.0-99.0 (test code = 753) MEAN CORPUSCULAR HEMOGLOBIN 29.3 pg 27.0-33.0 (BEAKER) (test code = 751) MEAN CORPUSCULAR HEMOGLOBIN CONC 32.3 GM/DL 32.0-36.0 (BEAKER) (test code = 752) RED CELL DISTRIBUTION WIDTH 13.8 % 12.0-15.0 (BEAKER) (test code = 412) PLATELET COUNT (BEAKER) (test 133 K/CU MM 150-430 L code = 756) MEAN PLATELET VOLUME (BEAKER) 11.6 fL 6.0-11.5 H (test code = 754) NUCLEATED RED BLOOD CELLS 0 /100 WBC 0-0 (BEAKER) (test code = 413) NEUTROPHILS RELATIVE PERCENT 94 % (BEAKER) (test code = 429) LYMPHOCYTES RELATIVE PERCENT 3 % (BEAKER) (test code = 430) MONOCYTES RELATIVE PERCENT 2 % (BEAKER) (test code = 431) EOSINOPHILS RELATIVE PERCENT 0 % (BEAKER) (test code = 432) BASOPHILS RELATIVE PERCENT 0 % (BEAKER) (test code = 437) NEUTROPHILS ABSOLUTE COUNT 7.68 K/ L 1.80-8.00 (BEAKER) (test code = 670) LYMPHOCYTES ABSOLUTE COUNT 0.22 K/ L 1.48-4.50 L (BEAKER) (test code = 414) MONOCYTES ABSOLUTE COUNT (BEAKER) 0.19 K/ L 0.00-1.30 (test code = 415) EOSINOPHILS ABSOLUTE COUNT 0.00 K/ L 0.00-0.50 (BEAKER) (test code = 416) BASOPHILS ABSOLUTE COUNT (BEAKER) 0.00 K/ L 0.00-0.20 (test code = 417) IMMATURE GRANULOCYTES-RELATIVE 1 % 0-0 H PERCENT (BEAKER) (test code = 2801) ANG, CENTRAL VENOUS CATH PLCMT (JUG/FEM) > 5 Y.O. WITH [id number] 16:14:00Reason for exam:->iv meds [facility] 1955 Sex: FFINAL REPORT Procedure: Placement of right internal jugular vein cent ral venous catheter, 12/30/2020 HISTORY: Need long-term IV access Anesthesia: 1% lidocaine Modality: Ultrasound and fluoroscopy, fluoroscopy time: 1 minute, total dose: 17.6 mGy, reference air kerma method. Approach: Right internal jugular vein TECHNIQUE: After obtaining written informed consent, this procedure was performed without untoward effect. All elements maximal sterile barrier technique were utilized for this study. The right internal jugular vein was imaged initially disclosing patency but with some sluggish flow. The skin site overlying the right internal jugular vein was then prepped, draped and anesthetized. Real-time ultrasound guidance was used to access the internal jugular vein. Guidewire was then advanced centrally but would not extend below the clavicle. A small catheter was theninserted and eventually, a guidewire was advanced through an obstruction in the lower right internaljugular vein. Subsequent to this, the tract was dilated and a 7 Guyanese double lumen triple- lumen wasplaced with its tip in the upper portion of the right atrium. The catheter was then flushed and secured in place by means of sutures. CONCLUSION: Placement of triple-lumen central line. 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 Approach: Right internal jugular vein TECHNIQUE: Afterobtaining written informed consent, this procedure was performed without untoward effect. All elements maximal sterile barrier technique were utilized for this study. The right internal jugular vein was imaged initially disclosing patency but with some sluggish flow. The skin site overlying the right internal jugular vein was then prepped, draped and anesthetized. Real-time ultrasound guidance was used to access the internal jugular vein. Guidewire was then advanced centrally but would not extend below the clavicle. A small catheter was then inserted and eventually, a guidewire was advanced throughan obstruction in the lower right internal jugular vein. Subsequent to this, the tract was dilated and a 7 Guyanese double lumen triple- lumen was placed with its tip in the upper portion of the right atrium. The catheter was then flushed and secured in place by means of sutures. CONCLUSION: Placement oftriple-lumen central line. 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 Verified Date/Time: 12/30/2020 16:14:05 Reading [facility] 1 [facility], NON [id number] 07:49:00Reason for exam:->pneumoniaShould this be performed at the bedside?->[facility] : 1955 Sex: FFINAL REPORT Portable chest, 12/30/2020 Since 12/28/2020, there has been minimal improvement of the hazy bilateral pulmonary opacities, likely related to diminishing edema. Cardiac silhouette remains slightly enlarged. There is no evidence of pneumothorax or substantial pleural effusion. No significant osseous abnormalities are seen. Surgical clips are again noted in the left arm. Signed: Margo Reddy MDR[facility] Verified Date/Time: 12/30/2020 07:49:55 Reading Location[facility] Radiology Reading Room COMPREHENSIVE METABOLIC [id number] 05:59:00 Test Item Value Reference Range Interpretation Comments TOTAL PROTEIN 5.9 gm/dL 6.0-8.5 L (BEAKER) (test code = 770) ALBUMIN (BEAKER) 3.2 g/dL 3.5-5.0 L (test code = 1145) ALKALINE PHOSPHATASE 53 U/L 30-115 (BEAKER) (test code = 346) BILIRUBIN TOTAL 1.0 mg/dL 0.1-1.2 (BEAKER) (test code = 377) SODIUM (BEAKER) (test 140 meq/L 135-148 code = 381) POTASSIUM (BEAKER) 3.5 meq/L 3.6-5.5 L (test code = 379) CHLORIDE (BEAKER) 103 meq/L 98-106 (test code = 382) CO2 (BEAKER) (test 24 meq/L 20-29 code = 355) BLOOD UREA NITROGEN 47 mg/dL 10-26 H (BEAKER) (test code = 354) CREATININE (BEAKER) 6.49 mg/dL 0.50-1.20 H (test code = 358) GLUCOSE RANDOM 108 mg/dL 70-110 (BEAKER) (test code = 652) CALCIUM (BEAKER) 9.1 mg/dL 8.5-10.5 (test code = 697) AST (SGOT) (BEAKER) 25 U/L 5-40 (test code = 353) ALT (SGPT) (BEAKER) < U/L 5-50 L (test code = 347) EGFR (BEAKER) (test 8 mL/min/1.73 ESTIMAT ED GFR IS code = 1092) sq m NOT ACCURATE CREATININE CLEARANCE IN PREDICTING GLOMERULAR FILTRATION RATE . ESTIMATED GFR I S NOT APPLICABLE FOR DIALYSIS PATIEN TS. University Tutor ID - [id number] ID - [id number] ID - itil46Dqgumksv ID - [id number] ID - vryg91Tghcnqhn ID - uzpv96Wzwjzpyo ID - lkik67Tuchjicn ID - rhar24Awhrjlpp ID - [id number] ID - zzyc95Jqjmqxql ID - gfks02Vqprcefr ID - [id number] ID - zapg83Ahemphjq ID - [id number] ID - ykwu49Tsncxrsn ID - [id number] 05:49:00 Test Item Value Reference Range Interpretation Comments MAGNESIUM (BEAKER) (test code = 1.8 mg/dL 1.5-3.0 627) University Tutor ID - [id number] ID - [id number] ID - [id number] ID - [id number] 05:46:00 Test Item Value Reference Range Interpretation Comments PHOSPHORUS (BEAKER) (test code = 4.4 mg/dL 2.5-4.5 604) University Tutor ID - [id number] W/PLT COUNT & AUTO [id number] 05:07:00 Test Item Value Reference Range Interpretation Comments WHITE BLOOD CELL COUNT (BEAKER) 10.2 K/ L 4.0-10.0 H (test code = 775) RED BLOOD CELL COUNT (BEAKER) 3.12 M/ L 4.00-5.00 L (test code = 761) HEMOGLOBIN (BEAKER) (test code = 9.0 GM/DL 12.0-15.5 L 410) HEMATOCRIT (BEAKER) (test code = 28.3 % 36.0-46.0 L 411) MEAN CORPUSCULAR VOLUME (BEAKER) 90.7 fL 82.0-99.0 (test code = 753) MEAN CORPUSCULAR HEMOGLOBIN 28.8 pg 27.0-33.0 (BEAKER) (test code = 751) MEAN CORPUSCULAR HEMOGLOBIN CONC 31.8 GM/DL 32.0-36.0 L (BEAKER) (test code = 752) RED CELL DISTRIBUTION WIDTH 14.2 % 12.0-15.0 (BEAKER) (test code = 412) PLATELET COUNT (BEAKER) (test 122 K/CU MM 150-430 L code = 756) MEAN PLATELET VOLUME (BEAKER) 11.5 fL 6.0-11.5 (test code = 754) NUCLEATED RED BLOOD CELLS 0 /100 WBC 0-0 (BEAKER) (test code = 413) NEUTROPHILS RELATIVE PERCENT 84 % (BEAKER) (test code = 429) LYMPHOCYTES RELATIVE PERCENT 3 % (BEAKER) (test code = 430) MONOCYTES RELATIVE PERCENT 11 % (BEAKER) (test code = 431) EOSINOPHILS RELATIVE PERCENT 1 % (BEAKER) (test code = 432) BASOPHILS RELATIVE PERCENT 0 % (BEAKER) (test code = 437) NEUTROPHILS ABSOLUTE COUNT 8.57 K/ L 1.80-8.00 H (BEAKER) (test code = 670) LYMPHOCYTES ABSOLUTE COUNT 0.34 K/ L 1.48-4.50 L (BEAKER) (test code = 414) MONOCYTES ABSOLUTE COUNT (BEAKER) 1.11 K/ L 0.00-1.30 (test code = 415) EOSINOPHILS ABSOLUTE COUNT 0.07 K/ L 0.00-0.50 (BEAKER) (test code = 416) BASOPHILS ABSOLUTE COUNT (BEAKER) 0.03 K/ L 0.00-0.20 (test code = 417) IMMATURE GRANULOCYTES-RELATIVE 1 % 0-0 H PERCENT (BEAKER) (test code = 2801) CT, SPINE, CERVICAL, WO [id number] 14:29:00Unlisted Reason for Exam - Click Yes and Enter Reason Below->YesUnlisted Reason for Exam->post cervical laminectomy with new onset RUE pain [facility]BO EV[facility] : 1955 Sex: FFINAL REPORT CT, SPINE, CERVICAL, WO CONTRAST INDICATION: Unlisted Re ason for Exampost cervical laminectomy with new onset RUE pain COMPARISON: None TECHNIQUE: Contiguous noncontrast axial images of the cervical spine are obtained. Computer reformatted coronal and sagittal images are also provided. Axial images are available in both bone and soft tissue algorithm. DOSE REDUCTION: Dose modulation, iterative reconstruction, and/or weight-based adjustment of the mA/kV was utilized to reduce the radiation dose to as low as reasonably achievable. FINDINGS: Alignment: Normal. C1 and C2 lateral masses are congruent. Vertebrae: Status post C3-C6 laminotomy and reconstruction. No acute fracture. No aggressive osseous lesion. Spinal canal: Suboptimally evaluated in the absence of intrathecal contrast. However, the right C5-6 reconstruction hardware is medially positioned within the spinal canal and appears to abut the right C6 nerve root (annotated on axial image 35). Softtissues: Expected soft tissue air dorsally at the surgical levels. Moderate right pleural effusion. O ther: Visualized intracranial contents are unremarkable. IMPRESSION:Status post C3-C6 laminotomy andreconstruction. The spinal canal is suboptimally evaluated in the absence of intrathecal contrast, but the right C5-6 reconstruction hardware is medially positioned within the spinal canal and appears to abut the right C6 nerve root. Signed: [facility] Verified Date/Time: 12/29/2020 14:29:28 Hepatitis B surface [id number] 13:29:00 Test Item Value Reference Interpretation Comments Range Hep B S Ab (test 118.3 See_Comment H [Automated code = 76576-3) message] The system which generated this result transmitted reference range : <8.0 mIU/mL. Th e reference range was not used to interpret this result as normal/abnormal . BEKAH (test code = University Tutor ID - BEKAH) EMERSONOperator ID - DEAN Lab Interpretation Abnormal (test code = 08678-1) [facility] SUR[facility] [id number] 13:29:00 Test Item Value Reference Range Interpretation Comments HEPATITIS B SURFACE ANTIBODY 118.3 mIU/mL <8.0 H (BEAKER) (test code = 647) University Tutor ID - EMERSONOperator ID - EMERSONARTERIAL DOPPLER ARM, [id number] 09:03:00Reason for exam:->acute right upper extremity pain [facility] : 1955 Sex: FFINAL REPORT Right upper extremity arterial Doppler, 12/29/2020 HISTORY: Pain in the right arm TECHNIQUE: Grayscale, color flow and spectral waveform analysis of the rightupper extremity arterial system were obtained. The distal subclavian, axillary, brachial, radial andulnar arteries are patent with primarily triphasic and occasionally, biphasic flow. Peak systolic velocities are within normal limits. No stenoses are identified. CONCLUSION: Patent arterial system. Signed: Margo Reddy MDRbrentort Verified Date/Time: 12/29/2020 09:03:46 Reading [facility] Radiology Reading Room Arterial doppler arm, [id number] 09:03:00Interface, External Ris In - 12/29/2020 9:05 AM CDTFINAL REPORT Right upper extremity arterial Doppler, 12/29/2020 HISTORY: Pain in the right arm TECHNIQUE: Grayscale, color flow and spectral waveform analysis of the right upper extremity arterial system were obtained. The distalsubclavian, axillary, brachial, radial and ulnar arteries are patent with primarily triphasic and occasionally, biphasic flow. Peak systolic velocities are within normal limits. No stenoses are identified. CONCLUSION: Patent arterial system. Signed: Margo Reddy MDReport Verified Date/Time: 12/29/2020 09:03:46 [facility], [id number] 08:59:00Reason for exam:->acute pain right upper extremity [facility] : 1955 Sex: FFINAL REPORT Right arm venous ultrasonography, 12/29/2020 HISTORY: Pain with possible venous thrombosis, postop TECHNIQUE: Grayscale, color flow and spectral waveform analysis of the right upper extremity venous system were obtained along with compression views. The radial, ulnar, brachial, basilic and axillary veins are patent. The internal jugular and visualized portions of the subclavian veins are also patent with appropriate directional flow. CONCLUSION: No evidenceof venous thrombosis. Signed: Margo Reddy MDReport Verified Date/Time: 12/29/2020 08:59:35 Reading [facility] Radiology Reading Room Venous doppler arm, [id number] 08:59:00Interface, External Ris In - 12/29/2020 9:01 AM CDTFINAL REPORT Right arm venous ultrasonography, 12/29/2020 HISTORY: Pain with possible venous thrombosis, postop TECHNIQUE: Graysc yolie, color flow and spectral waveform analysis of the right upper extremity venous system were obtained along with compression views. The radial, ulnar, brachial, basilic and axillary veins are patent.The internal jugular and visualized portions of the subclavian veins are also patent with appropriate directional flow. CONCLUSION: No evidence of venous thrombosis. Signed: Margo Reddy MDReport Verified Date/Time: 12/29/2020 08:59:35 Reading [facility] Rad[facility]Hep[facility] surface antigen 2020-12-29 06:52:00 Test Item Value Reference Range Interpretation Comments HBsAg Screen (test code Nonreactive Nonreactive = 5195-3) BEKAH (test code = BEKAH) University Tutor ID - [id number] Lab Interpretation (test Normal code = 23218-5) [facility] B SURFACE [id number] 06:52:00 Test Item Value Reference Range Interpretation Comments HEPATITIS B SURFACE ANTIGEN (2) Nonreactive Nonreactive (BEAKER) (test code = 2585) University Tutor ID - [id number], CHEST, 1 VIEW, NON [id number] 11:49:00Reason for exam:->post opShould this be performed at the bedside?->Yes [facility] : 1955 Sex: FFINAL REPORT Portable chest 12/28/2020 COMPARISON: None There are moder ate right perihilar and basilar opacities as well as mild left basilar patchy opacities most consistent with edema. Pneumonitis cannot be unequivocally excluded.. The cardiac silhouette is borderline enlarged. No significant pleural effusion is noted. There is no evidence of pneumothorax. Multiple surgical clips overlie the left arm soft tissues. No significant osseous abnormalities are identified. CONCLUSION: Pulmonary opacities as described. Dr. Allen's office was called at 1140 hours to discuss these findings. Signed: Margo Reddy MDReport Verified Date/Time: 12/28/2020 11:49:46 Reading [facility] Radiology Reading Room RAD, HIP, 2-3 VIEWS, LEFT, TO INCL PELVIS WHEN [id number] 10:32:00Reason for exam:->left hip and groin pain x 1 month [facility] : 1955 Sex: FFINAL REPORT Left hip, 12/28/2020 No fractures, dislocations or signifi cant arthritic changes are identified. There are multiple surgical clips in the soft tissues about the medial portion of the left hip and upper thigh. Furthermore, a peritoneal dialysis catheter is seen with its tip outside the pelvis in the left paracolic gutter just above the apex of the left iliac crest. Signed: Margo Reddyort Verified Date/Time: 12/28/2020 10:32:44 Reading [facility] Radiology Reading Room XR hip 2 views [id number] 10:32:00 Interface, External Ris In - 12/28/2020 10:34 AM CDTFINAL REPORT Left hip, 12/28/2020 No fractures, dislocations or significant arthritic changes are identified. There are multiplesurgical clips in the soft tissues about the medial portion of the left hip and upper thigh. Furthermore, a peritoneal dialysis catheter is seen with its tip outside the pelvis in the left paracolic gutter just above the apex of the left iliac crest. Signed: Margo Reddy MDReport Verified Date/Time:12/28/2020 10:32:44 Reading [facility] Rad[facility] [id number] 06:34:00 Test Item Value Reference Range Interpretation Comments MAGNESIUM (BEAKER) (test code = 1.7 mg/dL 1.5-3.0 627) University Tutor ID - [id number] ID - [id number] ID - [id number] ID - [id number] METABOLIC [id number] 06:34:00 Test Item Value Reference Range Interpretation Comments TOTAL PROTEIN 6.5 gm/dL 6.0-8.5 (BEAKER) (test code = 770) ALBUMIN (BEAKER) 3.6 g/dL 3.5-5.0 (test code = 1145) ALKALINE PHOSPHATASE 52 U/L 30-115 (BEAKER) (test code = 346) BILIRUBIN TOTAL 0.8 mg/dL 0.1-1.2 (BEAKER) (test code = 377) SODIUM (BEAKER) (test 145 meq/L 135-148 code = 381) POTASSIUM (BEAKER) 3.4 meq/L 3.6-5.5 L (test code = 379) CHLORIDE (BEAKER) 108 meq/L 98-106 H (test code = 382) CO2 (BEAKER) (test 24 meq/L 20-29 code = 355) BLOOD UREA NITROGEN 38 mg/dL 10-26 H (BEAKER) (test code = 354) CREATININE (BEAKER) 5.16 mg/dL 0.50-1.20 H (test code = 358) GLUCOSE RANDOM 172 mg/dL 70-110 H (BEAKER) (test code = 652) CALCIUM (BEAKER) 9.6 mg/dL 8.5-10.5 (test code = 697) AST (SGOT) (BEAKER) 38 U/L 5-40 (test code = 353) ALT (SGPT) (BEAKER) 26 U/L 5-50 (test code = 347) EGFR (BEAKER) (test 10 mL/min/1.73 ESTIMA MELQUIADES GFR IS code = 1092) sq m NOT ACCURATE CREATININE CLEARANCE IN PREDICTING GLOMERULAR FILTRATION RATE . ESTIMATED GFR I S NOT APPLICABLE FOR DIALYSIS PATIEN TS. University Tutor ID - [id number] ID - [id number] ID - [id number] ID - [id number] ID - [id number] ID - [id number] ID - [id number] ID - [id number] ID - [id number] ID - [id number] ID - [id number] ID - [id number] ID - [id number] ID - [id number] ID - [id number] ID - [id number] W/PLT COUNT & AUTO [id number] 05:49:00 Test Item Value Reference Range Interpretation Comments WHITE BLOOD CELL COUNT (BEAKER) 16.6 K/ L 4.0-10.0 H (test code = 775) RED BLOOD CELL COUNT (BEAKER) 3.83 M/ L 4.00-5.00 L (test code = 761) HEMOGLOBIN (BEAKER) (test code = 11.0 GM/DL 12.0-15.5 L 410) HEMATOCRIT (BEAKER) (test code = 35.5 % 36.0-46.0 L 411) MEAN CORPUSCULAR VOLUME (BEAKER) 92.7 fL 82.0-99.0 (test code = 753) MEAN CORPUSCULAR HEMOGLOBIN 28.7 pg 27.0-33.0 (BEAKER) (test code = 751) MEAN CORPUSCULAR HEMOGLOBIN CONC 31.0 GM/DL 32.0-36.0 L (BEAKER) (test code = 752) RED CELL DISTRIBUTION WIDTH 14.2 % 12.0-15.0 (BEAKER) (test code = 412) PLATELET COUNT (BEAKER) (test 166 K/CU MM 150-430 code = 756) MEAN PLATELET VOLUME (BEAKER) 11.7 fL 6.0-11.5 H (test code = 754) NUCLEATED RED BLOOD CELLS 0 /100 WBC 0-0 (BEAKER) (test code = 413) NEUTROPHILS RELATIVE PERCENT 87 % (BEAKER) (test code = 429) LYMPHOCYTES RELATIVE PERCENT 2 % (BEAKER) (test code = 430) MONOCYTES RELATIVE PERCENT 10 % (BEAKER) (test code = 431) EOSINOPHILS RELATIVE PERCENT 0 % (BEAKER) (test code = 432) BASOPHILS RELATIVE PERCENT 0 % (BEAKER) (test code = 437) NEUTROPHILS ABSOLUTE COUNT 14.50 K/ L 1.80-8.00 H (BEAKER) (test code = 670) LYMPHOCYTES ABSOLUTE COUNT 0.37 K/ L 1.48-4.50 L (BEAKER) (test code = 414) MONOCYTES ABSOLUTE COUNT (BEAKER) 1.63 K/ L 0.00-1.30 H (test code = 415) EOSINOPHILS ABSOLUTE COUNT 0.00 K/ L 0.00-0.50 (BEAKER) (test code = 416) BASOPHILS ABSOLUTE COUNT (BEAKER) 0.02 K/ L 0.00-0.20 (test code = 417) IMMATURE GRANULOCYTES-RELATIVE 1 % 0-0 H PERCENT (BEAKER) (test code = 2801) ABORH, [id number] 16:06:00 Test Item Value Reference Range Interpretation Comments ABO Grouping (test code = 2588) B [id number] Rh Factor (test code = 2589) POS 12/27/2020, 1054 [facility] CenterFL, FLUORO, NON-SPECIFIC, UP TO 1 [id number] 12:50:00Reason for exam:->[facility] : 1955 Sex: FFluoroscopic unit utilized for a procedure performed in the OR. No interpretation was requested. Refer to the operative report for findings. Refer to PACS for patient radiation dose information.FL fluoro non-specific up to 1 [id number] 12:50:00 Interface, External Ris In - 12/27/2020 12:50 PM CDTFluoroscopic unit utilized for a procedure performed in the OR. No interpretation was requested. Refer to the operative report for findings. Referto PACS for patient radiation dose information.[facility] CenterType and screen, [id number] 09:27:00 Test Item Value Reference Range Interpretation Comments ABO/RH AUTOMATED (BEAKER) (test B POSITIVE ECHO code = 2260) Ab Scrn (test code = 890-4) NEGATIVE ECHO [facility] CenterPotassium2021-07-06 09:10:00 Test Item Value Reference Range Interpretation Comments Potassium (test code = 3.5 meq/L 3.6-5.5 L 2823-3) BEKAH (test code = BEKAH) University Tutor ID - [id number] ID - [id number] ID - [id number] ID - [id number] Lab Interpretation (test Abnormal code = 35733-7) [facility] CenterPT/[id number] 09:10:00 Test Item Value Reference Interpretation Comments Range Protime (test code = 11.6 See_Comment Final 5902-2) Information (Auto Output) [Automated message] The system which generated this result transmitted reference range : 9.3 - 12.0 seconds. The reference range was not used to interpret this result as normal/abnormal . INR (test code = 1.05 See_Comment Final 6301-6) Information (Auto Output) [Automated message] The system which generated this result transmitted reference range : <=5.90. The reference range was not used to interpret this result as normal/abnormal . PTT (test code = 22.2 See_Comment L Final 58911-2) Information (Auto Output) [Automated message] The system which generated this result transmitted reference range : 23.0 - 35.0 seconds. The reference range was not used to interpret this result as normal/abnormal . BEKAH (test code = RECOMMENDED BEKAH) COUMADIN/WARFARIN INR THERAPY RANGESSTANDARD DOSE: 2.0 - 3.0 Includes: PROPHYLAXIS for venous thrombosis, systemic embolization; TREATMENT for venous thrombosis and/or pulmonary embolus.HIGH RISK: Target INR is 2.5-3.5 for patients with mechanical heart valves. Lab Interpretation Abnormal (test code = 31032-3) [id number] 09:10:00 Test Item Value Reference Range Interpretation Comments PROTIME (BEAKER) (test 11.6 seconds 9.3-12.0 Final Information code = 759) (Auto Output) INR (BEAKER) (test 1.05 See_Comment Final Inf ormation code = 370) (Auto Output) [Automated mess age] The system [employer] generated this result transmit melquiades reference range : <=5.90. The reference range was not used to interpret this result as normal/abnormal . PARTIAL THROMBOPLASTIN 22.2 seconds 23.0-35.0 L Final Information TIME (BEAKER) (test (Auto Ou tput) code = 760) RECOMMENDED COUMADIN/WARFARIN INR THERAPY RANGESSTANDARD DOSE: 2.0 - 3.0 Includes: PROPHYLAXIS forvenous thrombosis, systemic embolization; TREATMENT for venous thrombosis and/or pulmonary embolus.HIGH RISK: Target INR is 2.5-3.5 for patients with mechanical heart valves.[id number] 09:10:00 Test Item Value Reference Range Interpretation Comments POTASSIUM (BEAKER) (test code = 3.5 meq/L 3.6-5.5 L 379) University Tutor ID - [id number] ID - [id number] ID - [id number] ID - [id number] BASIC METABOLIC [id number] 11:58:00 Test Item Value Reference Range Interpretation Comments SODIUM (BEAKER) (test 141 meq/L 135-148 code = 381) POTASSIUM (BEAKER) 3.2 meq/L 3.6-5.5 L (test code = 379) CHLORIDE (BEAKER) 105 meq/L 98-106 (test code = 382) CO2 (BEAKER) (test 25 meq/L 20-29 code = 355) BLOOD UREA NITROGEN 26 mg/dL 10-26 (BEAKER) (test code = 354) CREATININE (BEAKER) 5.21 mg/dL 0.50-1.20 H (test code = 358) GLUCOSE RANDOM 92 mg/dL 70-110 (BEAKER) (test code = 652) CALCIUM (BEAKER) 9.8 mg/dL 8.5-10.5 (test code = 697) EGFR (BEAKER) (test INSUFF IENT CLINICAL code = 1092) DATA TO CALCULA TE ESTIMATED GFR. University Tutor ID - [id number] ID - [id number] ID - [id number] ID - [id number] ID - [id number] ID - [id number] ID - [id number] ID - [id number] ID - [id number] ID - [id number] ID - [id number] ID - [id number] ID - [id number] PT/[id number] 11:55:00 Test Item Value Reference Range Interpretation Comments PROTIME (BEAKER) (test 12.0 seconds 9.3-12.0 Final Information code = 759) (Auto Output) INR (BEAKER) (test 1.09 See_Comment Final Inf ormation code = 370) (Auto Output) [Automated mess age] The system [employer] generated this result transmit melquiades reference range : <=5.90. The reference range was not used to interpret this result as normal/abnormal . PARTIAL THROMBOPLASTIN 28.5 seconds 23.0-35.0 Final Information TIME (BEAKER) (test (Auto Ou tput) code = 760) RECOMMENDED COUMADIN/WARFARIN INR THERAPY RANGESSTANDARD DOSE: 2.0 - 3.0 Includes: PROPHYLAXIS forvenous thrombosis, systemic embolization; TREATMENT for venous thrombosis and/or pulmonary embolus.HIGH RISK: Target INR is 2.5-3.5 for patients with mechanical heart valves.CBC W/PLT COUNT & AUTO DIFFERENTIAL 2020-12-22 11:42:00 Test Item Value Reference Range Interpretation Comments WHITE BLOOD CELL COUNT (BEAKER) 4.7 K/ L 4.0-10.0 (test code = 775) RED BLOOD CELL COUNT (BEAKER) 3.75 M/ L 4.00-5.00 L (test code = 761) HEMOGLOBIN (BEAKER) (test code = 10.9 GM/DL 12.0-15.5 L 410) HEMATOCRIT (BEAKER) (test code = 34.6 % 36.0-46.0 L 411) MEAN CORPUSCULAR VOLUME (BEAKER) 92.3 fL 82.0-99.0 (test code = 753) MEAN CORPUSCULAR HEMOGLOBIN 29.1 pg 27.0-33.0 (BEAKER) (test code = 751) MEAN CORPUSCULAR HEMOGLOBIN CONC 31.5 GM/DL 32.0-36.0 L (BEAKER) (test code = 752) RED CELL DISTRIBUTION WIDTH 13.9 % 12.0-15.0 (BEAKER) (test code = 412) PLATELET COUNT (BEAKER) (test 169 K/CU MM 150-430 code = 756) MEAN PLATELET VOLUME (BEAKER) 11.1 fL 6.0-11.5 (test code = 754) NUCLEATED RED BLOOD CELLS 0 /100 WBC 0-0 (BEAKER) (test code = 413) NEUTROPHILS RELATIVE PERCENT 65 % (BEAKER) (test code = 429) LYMPHOCYTES RELATIVE PERCENT 15 % (BEAKER) (test code = 430) MONOCYTES RELATIVE PERCENT 15 % (BEAKER) (test code = 431) EOSINOPHILS RELATIVE PERCENT 4 % (BEAKER) (test code = 432) BASOPHILS RELATIVE PERCENT 1 % (BEAKER) (test code = 437) NEUTROPHILS ABSOLUTE COUNT 3.01 K/ L 1.80-8.00 (BEAKER) (test code = 670) LYMPHOCYTES ABSOLUTE COUNT 0.69 K/ L 1.48-4.50 L (BEAKER) (test code = 414) MONOCYTES ABSOLUTE COUNT (BEAKER) 0.71 K/ L 0.00-1.30 (test code = 415) EOSINOPHILS ABSOLUTE COUNT 0.18 K/ L 0.00-0.50 (BEAKER) (test code = 416) BASOPHILS ABSOLUTE COUNT (BEAKER) 0.04 K/ L 0.00-0.20 (test code = 417) IMMATURE GRANULOCYTES-RELATIVE 0 % 0-0 PERCENT (BEAKER) (test code = 2801) BLOOD BANK TJQOVIN4413-63-64 15:09:00Negative (05/26/20 9:09 AM)[facility] [employer] CHEM AWAAY1222-55-81 15:09:0084[facility] OpinewsTVannCHEM LUTHZ3442-85-32 15:09:0020 [facility] OpinewsTVannCHEM GXQTL2114-74-82 15:09:004.97[facility] HermannCHEM PANEL 2020-05-26 15:09:87414Hgutuvze HermannCHEM JWJUV3550-49-07 15:09:003.6[facility] HermannCHEM KBPIN0822-20-83 15:09:61615Trbjrdqf HermannCHE[facility] ZQMDD6177-18-28 15:09:0024[facility] HermannCHEM UTDDS2470-30-34 15:09:009.7[facility]annCHEM ZHZTE7742-51-23 15:09:0010.6[facility] HermannCHEM WQSNM5286-54-93 15:09:0010 [facility]annBLOOD BANK GEPMMDF2814-64-96 15:09:00Negative (05/26/20 9:09 AM) [facility]ann[facility] IKXFU0937-93-68 15:09:0084[facility]annCHEM PANEL 2020-05-26 15:09:0020[facility] HermannCHEM LJEIG1901-98-51 15:09:004.97[facility]annCHEM TYCHV8810-26-92 15:09:39563Oqsvyjjj [facility]annCHE[facility] NWJQV2372-30-23 15:09:003.[facility] HermannCHEM NDYNE5937-77-79 15:09:97645Oycepjbz [facility]CHE[facility] YJRPO4511-22-18 15:09:0024[facility]annCHEM TNFNK2779-15-14 15:09:009.7 [facility]annCHE[facility] QHCYV5889-99-03 15:09:0010.6[facility] HermannCHEM PANEL 2020-05-26 15:09:0010[facility] OjnimhwJSPIVBKYHV2037-93-88 13:47:00Not Detected (05/26/20 7:47 AM)[facility] DctmjosPFGUCTWVGQ5899-71-09 13:47:00Not Detected (05/26/20 7:47 AM)[facility] HXZTTCS5298-74-46 15:31:00Negative (05/17/20 9:31 AM)[facility]annCHEM UJTIY2265-62-71 15:31:0091[facility] HermannCHEM AACLB1554-33-90 15:31:0029[facility] HermannCHEM EXEUG7871-57-10 15:31:005.79[facility]annCHEM QJAKT1684-32-16 15:31:25632Bjkvrzvf HermannCHEM OSMQT6688-06-58 15:31:003.9[facility] HermannCHEM HHGPV7139-51-95 15:31:48803 [facility]annCHE[facility] UHKGJ5679-13-31 15:31:0027[facility]annCHEM PANEL 2020-05-17 15:31:009.9[facility] HermannCHEM UEJHG7500-89-92 15:31:009.9[facility] HermannCHEM EVGYC6313-48-65 15:31:007[facility] RuslbcdVBJALMEKWV9778-06-55 15:31:005.2[facility] YceihrcSPIGTPHQSF2864-27-58 15:31:003.61[facility] GCQAGKQNNF8654-74-84 15:31:0010.4[facility] IdxrtcdGMWPDHEFDB1442-45-20 15:31:00 33.1[facility] HudpvalHCGPJYODTG4049-33-80 15:31:0091.8[facility] HermannHEMATOLOGY 2020-05-17 15:31:00 Test Item Value Reference Range Interpretation Comments MCH (test code = MCH) 28.8 pg 27.0-31.0 [facility] YqrdswaBAAIETNAGC7340-36-42 15:31:0031.3[facility] HermannHEMATOLOGY 2020-05-17 15:31:0015.9[facility] AuuuaukNBEZDQSVPJ6183-64-06 15:31:84709Bkpjkczj PqbvvmcQPTPHLOFAQ1345-21-81 15:31:009.2[facility] AngvysqHROQENNZZA5523-95-61 15:31:00 Test Item Value Reference Range Interpretation Comments PT (test code = PT) 14.8 s 12.0-14.7 [facility] GyexbfbMKPCAPDASC8610-46-78 15:31:00 Test Item Value Reference Range Interpretation Comments INR (test code = INR) 1.15 1 0.85-1.17 [facility] XieqfitACXNWUHSNZ5489-61-17 15:31:00 Test Item Value Reference Range Interpretation Comments PTT (test code = PTT) 29.5 s 22.9-35.8 [facility] EpvuadiKSKBXYVYQD5767-05-13 15:31:0074.6[facility] HermannHEMATOLOGY 2020-05-17 15:31:0011.0[facility] PvptzsmHKUQBYCYFU8094-92-34 15:31:0011.0[facility] CwtctfqSOVUAISTPD0287-15-28 15:31:002.6[facility] XwompufSILHRUYKNK0081-08-00 15:31:000.8[facility] UroesgkYPPIOPNRZB4877-08-10 15:31:003.9[facility] CRLKTARUSF7182-78-31 15:31:000.6[facility] AihwzyjCFELHBFTSG7043-38-34 15:31:000.6 [facility] CrbysgfFSMMAKMYKI1873-28-61 15:31:000.1[facility] HermannBLOOD BANK RKCTPJC6101-42-18 15:31:00Negative (05/17/20 9:31 AM)[facility]annCHEM PANEL 2020-05-17 15:31:0091[facility] HermannCHEM CDACA8226-54-81 15:31:0029[facility] HermannCHEM FOBIL5130-65-94 15:31:005.79[facility] HermannCHEM UWHMP0121-44-59 15:31:39963Yyprbpzm [facility]annCHEM VOCYX3810-07-18 15:31:003.9[facility] HermannCHEM UVRCQ4716-88-36 15:31:58277Usllmztt HermannCHEM BOWQX6152-64-38 15:31:0027 [facility]annCHEM IUQSJ4088-73-18 15:31:009.9[facility] HermannCHEM PANEL 2020-05-17 15:31:009.9[facility] HermannCHEM RDLVK5999-38-73 15:31:007[facility] CohlyqiNVBLGKOZOA0106-64-31 15:31:005.2[facility] KixfcsyUMKWWWPQTX1820-06-17 15:31:003.61[facility] HyeappkDYUFSANOZP3339-47-68 15:31:0010.4[facility] FUOBTLUWJI3849-50-12 15:31:0033.1[facility] TxncftyZUNUUKVFIW6875-31-19 15:31:00 91.8[facility] SdinzgmYZEVRPWSXW6873-46-55 15:31:00 Test Item Value Reference Range Interpretation Comments MCH (test code = MCH) 28.8 pg 27.0-31.0 [facility] XylwrsiWUMSRORBHG4997-58-91 15:31:0031.3[facility] HermannHEMATOLOGY 2020-05-17 15:31:0015.9[facility] FulhmytJFSDYNWPZA9414-70-30 15:31:72375Qldhhnqf HzxpxjxYGICANZYDJ1298-76-73 15:31:009.2[facility] EoqrvubGJIRLMLBYK8650-42-87 15:31:00 Test Item Value Reference Range Interpretation Comments PT (test code = PT) 14.8 s 12.0-14.7 [facility] PamanejYXNMLIWXJI2459-84-30 15:31:00 Test Item Value Reference Range Interpretation Comments INR (test code = INR) 1.15 1 0.85-1.17 [facility] IeaetyzTUIIZSHJIH5362-27-40 15:31:00 Test Item Value Reference Range Interpretation Comments PTT (test code = PTT) 29.5 s 22.9-35.8 [facility] MwtegtqZCAIOAKPMX9467-75-18 15:31:0074.6[facility] HermannHEMATOLOGY 2020-05-17 15:31:0011.0[facility] AgdnjbbJYBVRGULRB1508-27-71 15:31:0011.0[facility] ZljqxtgMJJPUGLZAE2638-24-13 15:31:002.6[facility] XavmlhxJCHTDOUNAV2996-59-75 15:31:000.8[facility] YxepqotKOLTXJJQFN6903-65-10 15:31:003.9[facility] IXDYKLLGUJ0265-07-35 15:31:000.6[facility] QrntcciBXREGWQUNH3617-32-40 15:31:000.6 [facility] ZctszcxVMOGSZZYGW3843-93-53 15:31:000.1[facility] HermannIMMUNOLOGY 2020-05-17 14:47:00Not Detected (05/17/20 8:47 AM)[facility] HermannIMMUNOLOGY 2020-05-17 14:47:00Not Detected (05/17/20 8:47 AM)[facility]annCHEM PANEL 2020-04-08 10:29:0091[facility] HermannCHEM OVDOG1612-97-23 10:29:0044[facility] HermannCHEM YDBYT3860-29-73 10:29:008.12[facility] HermannCHEM XYUBO4841-07-29 10:29:94491Wybnxcfm HermannCHEM WXMHR8704-74-75 10:29:004.2[facility] HermannCHEM BDUZM0765-08-98 10:29:61923Gpagezhv HermannCHEM PHGXN9010-15-87 10:29:0024 [facility]annCHEM GMXJK7863-89-13 10:29:008.9[facility] HermannCHEM PANEL 2020-04-08 10:29:0012.2[facility] HermannCHEM BMQUB5611-80-23 10:29:005[facility] MxoxnpaZMUDEUAPNO7815-94-61 10:29:00 Test Item Value Reference Range Interpretation Comments PT (test code = PT) 15.6 s 12.0-14.7 [facility] WuswhbjKNQAGHGALY0846-75-62 10:29:00 Test Item Value Reference Range Interpretation Comments INR (test code = INR) 1.23 1 0.85-1.17 [facility] ApgbkcaPDEXHNGKCA9497-71-47 10:29:00 Test Item Value Reference Range Interpretation Comments PTT (test code = PTT) 34.9 s 22.9-35.8 [facility] KygjvxkFLZKQSWQKA2770-65-29 10:29:005.0[facility] HermannHEMATOLOGY 2020-04-08 10:29:003.39[facility] BnhneenBHCEDZJXFL4513-53-36 10:29:009.8[facility] FeemezdQGOUCXGBJP1703-24-76 10:29:0030.6[facility] VlpxgqeOWEBQJHTUJ4285-65-50 10:29:0090.2[facility] UqjlwmvSKYVIEHPQN1889-29-70 10:29:00 Test Item Value Reference Range Interpretation Comments MCH (test code = MCH) 29.0 pg 27.0-31.0 [facility] LdtbpypAQJULDXKYN1614-52-37 10:29:0032.2[facility] HermannHEMATOLOGY 2020-04-08 10:29:0015.4[facility] MqysfxlBNNAKWYIVB6187-46-28 10:29:78659Enfmizqb KnwjopoSPAWMWYKYW6385-77-75 10:29:009.8[facility] KqtwvqeTUYXRMAXOE0718-43-69 10:29:0062.0[facility] AruihtkRPVXWAVKXY2123-16-14 10:29:0012.7[facility] QXXAOQUZER5379-64-19 10:29:0019.5[facility] PtppkdqFLTOGNCYWG2263-92-12 10:29:00 5.1[facility] RagixpxHQMYYRIWNT7650-47-47 10:29:000.7[facility] HermannHEMATOLOGY 2020-04-08 10:29:003.1[facility] EmcogbzMNFBONNIYO0325-38-93 10:29:000.6[facility] WlgmmblXEAIMTNUXT5526-37-21 10:29:001.0[facility] LetytvyMEIBTKUFOS5129-15-91 10:29:000.3[facility] UskoiobXYYSVWNBRV0948-62-64 10:29:00Negative *NA*(04/08/20 5:29 AM)[facility] HermannCHEM RWDQN2045-11-38 10:29:0091[facility] HermannCHEM OYHAD8131-28-05 10:29:0044[facility] HermannCHEM YLZBM1697-69-93 10:29:008.12 [facility]annCHEM PJQHL5991-76-47 10:29:02705Pccninmw HermannCHEM PANEL 2020-04-08 10:29:004.2[facility] HermannCHEM LQHJN5853-87-50 10:29:74750Pttiujzz [facility]annCHEM AWWBN3676-15-73 10:29:0024[facility] HermannCHEM FGLFZ6734-27-84 10:29:008.9[facility] HermannCHEM KCJSP5195-71-66 10:29:0012.2[facility] HermannCHEM TJRJV9086-86-95 10:29:005[facility] YoyzklrZAQKGORWCL5074-68-75 10:29:00 Test Item Value Reference Range Interpretation Comments PT (test code = PT) 15.6 s 12.0-14.7 [facility] VkcqzfeKLLFPKQHBE9525-32-82 10:29:00 Test Item Value Reference Range Interpretation Comments INR (test code = INR) 1.23 1 0.85-1.17 [facility] HpbdadaMZTHAUGMJN9824-15-40 10:29:00 Test Item Value Reference Range Interpretation Comments PTT (test code = PTT) 34.9 s 22.9-35.8 [facility] UhycvteRWFRFVYBKL6855-04-65 10:29:005.0[facility] HermannHEMATOLOGY 2020-04-08 10:29:003.39[facility] JudtlwuUCMMESYWIL8229-37-23 10:29:009.8[facility] RukbqhmUOWHYUESCS3684-20-21 10:29:0030.6[facility] CfybutuDLQRCDOVNK7365-97-96 10:29:0090.2[facility] ClnutrwNWWJAXXODR2666-45-09 10:29:00 Test Item Value Reference Range Interpretation Comments MCH (test code = MCH) 29.0 pg 27.0-31.0 [facility] PrcmhclYJYORDXMLR8721-59-55 10:29:0032.2[facility] HermannHEMATOLOGY 2020-04-08 10:29:0015.4[facility] XwwgzrrTFZIJNYBGL7995-19-87 10:29:06733Gqfxgidl DvvopphNZQCJOGULY5192-88-29 10:29:009.8[facility] EgzneytGHJHZLLMDB7258-29-38 10:29:0062.0[facility] QovycppJLMOXKLALN3655-15-08 10:29:0012.7[facility] LHVUSHODHN2304-24-98 10:29:0019.5[facility] DhdhwhkPUTOYHSUSN9974-16-48 10:29:00 5.1[facility] VvdueldNTVIWKKVWX1648-10-62 10:29:000.7[facility] HermannHEMATOLOGY 2020-04-08 10:29:003.1[facility] YypvcpkSWBYCHLBSK2340-29-76 10:29:000.6[facility] DnxxzcrUCGMZQMZFA9636-96-18 10:29:001.0[facility] OnxcpebXEIMNSUYJC3137-45-64 10:29:000.3[facility] VfdplhaJDSSDRIFJL6369-71-07 10:29:00Negative *NA*(04/08/20 5:29 AM)[facility] HermannCHEM ORGLC2618-47-38 09:49:59070Vnpktnat [facility]annCHEM RTDSC2064-42-87 09:49:0041[facility] HermannCHEM OTBOI7182-04-56 09:49:007.28 [facility]annCHEM UZONO0525-14-86 09:49:72720Hoojnxxi HermannCHEM PANEL 2020-04-07 09:49:004.2[facility] HermannCHEM IMOOG9831-42-27 09:49:83474Xygpkavy [facility]annCHEM PAXTX8783-07-40 09:49:0024[facility] HermannCHEM UTRUB1789-38-45 09:49:008.8[facility] HermannCHEM HQVMR6805-58-47 09:49:0013.2[facility] HermannCHEM OFKBC6057-06-39 09:49:006[facility] DgsudwdROQRRKWTUN0793-61-35 09:49:0079.6 [facility] LvlfwwjAMLMCBFDQQ9559-08-20 09:49:004.6[facility] HermannHEMATOLOGY 2020-04-07 09:49:0013.3[facility] KiqyybdKJBCWKTLJA2783-93-36 09:49:001.9[facility] HnnzsyrGOCGTEQNNK7253-63-05 09:49:000.6[facility] DopoluzQUQQZTYOPY3110-91-96 09:49:004.9[facility] ZjtesuyXLQFETMEZG2129-42-95 09:49:000.3[facility] RMLZFUQPKF3410-65-55 09:49:000.8[facility] MjkobeeBFLGFNKZQD5693-11-61 09:49:000.1 [facility] NijahjlNQMFLMHZFG0274-14-78 09:49:006.1[facility] HermannHEMATOLOGY 2020-04-07 09:49:003.59[facility] RefozodFYMMHJIPTY4734-52-58 09:49:0010.4[facility] UeenykjBHXEUJRDOU0239-63-17 09:49:0032.5[facility] IxywjqjUNKQFZJFKX9038-46-89 09:49:0090.7[facility] NipftxjAXLRUJDKTC0078-36-97 09:49:00 Test Item Value Reference Range Interpretation Comments MCH (test code = MCH) 29.0 pg 27.0-31.0 [facility] JeeokvlYSAYGHGKGA6680-87-40 09:49:0031.9[facility] HermannHEMATOLOGY 2020-04-07 09:49:0015.4[facility] GcckfdxZIXKGPJMIF5970-90-73 09:49:34728Djhvepim JmphftnIPNHZPUSDS5579-40-64 09:49:009.5[facility] HermannCHEM JDYRR4277-43-16 09:49:49277Axqjmgbb HermannCHEM HYIRA2488-31-47 09:49:0041[facility] HermannCHEM EFBBY9058-45-38 09:49:007.28[facility] HermannCHEM JTYWN8167-96-88 09:49:89201 [facility]annCHEM UGREV8782-54-03 09:49:004.2[facility] HermannCHEM PANEL 2020-04-07 09:49:98844Gopnyoan HermannCHEM NHNHX1392-05-44 09:49:0024[facility] HermannCHEM PQHOT7157-01-73 09:49:008.8[facility] HermannCHEM DMNMX4188-78-31 09:49:0013.2[facility] HermannCHEM AHJOY5254-01-27 09:49:006[facility] CKRZAEHJLW0273-46-98 09:49:0079.6[facility] LijvgglONITYYROUH7660-51-07 09:49:00 4.6[facility] DjbjdzuOFEBBVWHVO3371-46-00 09:49:0013.3[facility] HermannHEMATOLOGY 2020-04-07 09:49:001.9[facility] OvnhiudSMTFMSUEGA2725-69-25 09:49:000.6[facility] TusruuwGZDUTECIKN1592-51-49 09:49:004.9[facility] JuzkxgcVHGBJLBJAM2709-80-89 09:49:000.3[facility] WqodlnvMMEOYAILMA0533-84-99 09:49:000.8[facility] LAZFPJPYEE4859-88-48 09:49:000.1[facility] IhhzepyANYISJVRMV2084-37-99 09:49:006.1 [facility] BgulatbEPENZFLTLB0962-62-78 09:49:003.59[facility]annHEMATOLOGY 2020-04-07 09:49:0010.4[facility] HfulmdaNSGFXYCDID8466-53-75 09:49:0032.5[facility] XbvviseHUKUIUYOWB3603-05-34 09:49:0090.7[facility] PeyplrrZDEXFZBOAB4557-43-70 09:49:00 Test Item Value Reference Range Interpretation Comments MCH (test code = MCH) 29.0 pg 27.0-31.0 [facility] BqwmbbiMTVFWDMEYP8864-83-67 09:49:0031.9[facility] HermannHEMATOLOGY 2020-04-07 09:49:0015.4[facility] QqlwkkaRAONUYKBVU5443-35-21 09:49:67087Dgwodokt NcavcmyYBTDGGUTIG0529-85-97 09:49:009.5[facility] HermannBLOOD BANK RESULTS 2020-04-06 20:57:00Product available 4(04/06/20 3:57 PM)[facility]BL[facility] BANK QYZRVYI5024-19-07 20:57:00Product available 4(04/06/20 3:57 PM)[facility] HermannBLOOD BANK SXFTRJH0464-17-93 16:13:00Negative (04/06/20 11:13 AM)[facility]annBL[facility] B[facility] JNANPYV6411-40-58 16:13:00Negative (04/06/20 11:13 AM)[facility] HermannCHEM CYJJO3361-97-09 09:45:0083[facility] HermannCHEM HGXCV0703-98-02 09:45:0036[facility] HermannCHEM RQMEF0726-18-38 09:45:006.40[facility] HermannCHEM WZHIG0295-68-44 09:45:09258Dzrnuvxn HermannCHEM ZCGHV2604-10-64 09:45:003.6 [facility]annCHEM OQFST9587-10-91 09:45:10063Jwwvzpsl HermannCHEM PANEL 2020-04-06 09:45:0024[facility] HermannCHEM CUXJD0560-47-86 09:45:009.1[facility] HermannCHEM SUEGW7166-34-37 09:45:0012.6[facility] HermannCHEM LVIXD2082-29-21 09:45:007[facility] UpucsmbWTVVRYCMNOAPX3926-74-05 09:45:00Negative *NA*(04/06/20 4:45 AM)[facility] KslvqktRWRYCCMIGW6394-42-88 09:45:004.5[facility] CCUOJNONFJ1021-46-54 09:45:003.73[facility] LwlrjshOVPAXLUVLM8709-11-54 09:45:00 10.7[facility] ExmomidZEJDSJWZYS8515-89-36 09:45:0033.6[facility]annHEMATOLOGY 2020-04-06 09:45:0090.1[facility] IjgbhndFMGIDGUXXF2210-31-52 09:45:00 Test Item Value Reference Range Interpretation Comments MCH (test code = MCH) 28.6 pg 27.0-31.0 [facility] QqhmspuLOZGGEHYDJ9844-76-77 09:45:0031.8[facility]annHEMATOLOGY 2020-04-06 09:45:0015.5[facility] YhbprnyEXMGQBMUMU6489-97-99 09:45:06864Mmoqpukl YrnwnjnPYRXGTHRLQ4345-44-04 09:45:009.9[facility] MfzqmqeIOXPXWIANX7922-84-27 09:45:0062.8[facility] SgvpiknLCKXXJFJTI2302-34-40 09:45:0017.1[facility] ZBETPHEUSU0837-60-36 09:45:0015.2[facility] CxvukitPZFBAPLAXY3009-47-19 09:45:00 4.1[facility] WdzwylmDHCIUQLBZH8217-01-38 09:45:000.8[facility]annHEMATOLOGY 2020-04-06 09:45:002.9[facility] FodbwqbYCECUBAKMD5453-38-97 09:45:000.8[facility] KyuiltlQIOTVRRFBY4277-93-94 09:45:000.7[facility] OdlgdpbWLGVYCOIQX7387-93-50 09:45:000.2[facility]annCHEM CTQMP3409-36-36 09:45:0083[facility]annCHEM VOCVP1353-56-59 09:45:0036[facility]annCHEM FQOCH3683-54-79 09:45:006.40 [facility]annCHE[facility] WTQET7669-20-21 09:45:94816Dkjsrcke HermannCHEM PANEL 2020-04-06 09:45:003.6[facility]annCHEM MTAYY1055-03-60 09:45:05332Pkbsqexe HermannCHEM EOBEQ8952-14-08 09:45:0024[facility]annCHE[facility] UIKCR0455-81-77 09:45:009.1[facility]annCHEM KVXDX2918-47-64 09:45:0012.6[facility]annCHEM MPLIT8464-24-73 09:45:007[facility] XajlwwwHBFVVYVRUUSNX9913-79-22 09:45:00 Negative *NA*(04/06/20 4:45 AM)[facility] IrcdahnVAFQMZIYZU7102-26-38 09:45:004.5 [facility] SjftmcqNMOLUKLRLN9591-79-90 09:45:003.73[facility]annHEMATOLOGY 2020-04-06 09:45:0010.7[facility] MoipjgnZDACRICXAD8877-86-28 09:45:0033.6[facility] WgkfjdhNWQRRMQJFK9765-33-44 09:45:0090.1[facility] OmxyomsWMRYRECQNR6533-43-56 09:45:00 Test Item Value Reference Range Interpretation Comments MCH (test code = MCH) 28.6 pg 27.0-31.0 [facility] ImqvdtcHWNBRTTUNI2825-33-55 09:45:0031.8[facility]annHEMATOLOGY 2020-04-06 09:45:0015.5[facility] HslvxaeIVJBNTBMLO0182-94-21 09:45:09944Jifeorok IpkeuslAUSGGEVRFI6776-34-10 09:45:009.9[facility] TjlehbdLNTSKYMNOC6241-46-33 09:45:0062.8[facility] HmryfxxPGZERJTSCB9222-74-54 09:45:0017.1[facility] AFIPNDCZJO7105-41-16 09:45:0015.2[facility] GjpyngpYVYWMPPZUT8735-23-17 09:45:00 4.1[facility] SaqwlwoNAQEJCAUBC7493-74-95 09:45:000.8[facility]annHEMATOLOGY 2020-04-06 09:45:002.9[facility] IyxrbbrIDRJYARRHK1477-17-47 09:45:000.8[facility] StfhhtbGHAKYNGOHK0749-25-39 09:45:000.7[facility] RzxkmygJMRUJGOLAH2708-64-55 09:45:000.2[facility] RikpsisHQUWUAMCIS4119-39-40 02:13:00Not Detected (04/05/20 9:13 PM)[facility] YyxwinuZAHYIAOGQA3287-21-56 02:13:00Not Detected (04/05/20 9:13 PM)[facility]annCHEM CNRON1753-33-74 23:26:007.7[facility]annCHEM PANEL 2020-04-05 23:26:003.9[facility]annCHEM FAQHU9726-18-14 23:26:0040[facility]annCHEM YXBPJ3569-11-45 23:26:0038[facility]annCHEM ARHLN1161-85-16 23:26:0092[facility]annCHEM AEZZE7151-70-34 23:26:001.2[facility]annCHEM ZEMOU4288-33-19 23:26:00 Test Item Value Reference Range Interpretation Comments B/C Ratio (test code = B/C Ratio) 5 1 6-25 [facility]CHE[facility] YBFNJ6882-71-96 23:26:003.8[facility]annCHEM PANEL 2020-04-05 23:26:00 Test Item Value Reference Range Interpretation Comments A/G Ratio (test code = A/G Ratio) 1.0 1 0.7-1.6 [facility] GfmivqxNSNVLDVPQB5896-96-81 23:26:00 Test Item Value Reference Range Interpretation Comments PT (test code = PT) 15.2 s 12.0-14.7 [facility] TdszbnrLGGJJQTAQR3919-88-81 23:26:00 Test Item Value Reference Range Interpretation Comments INR (test code = INR) 1.19 1 0.85-1.17 [facility] DtmdjucNYDSXVSONX8092-02-49 23:26:00 Test Item Value Reference Range Interpretation Comments PTT (test code = PTT) 23.3 s 22.9-35.8 [facility] NLJAZ8340[facility]56-14 23:26:007.7[facility]annCHEM PANEL 2020-04-05 23:26:003.9[facility]annCHEM VXMIK4890-70-15 23:26:0040[facility]annCHEM QXZPK2716-80-07 23:26:0038[facility]annCHEM LGNYX8821-28-32 23:26:0092[facility]annCHEM GDOBK0303-06-33 23:26:001.2[facility]annCHEM QYJYT5086-89-59 23:26:00 Test Item Value Reference Range Interpretation Comments B/C Ratio (test code = B/C Ratio) 5 1 6-25 [facility] AHDQV0990-53-61 23:26:003.8[facility]annCHEM PANEL 2020-04-05 23:26:00 Test Item Value Reference Range Interpretation Comments A/G Ratio (test code = A/G Ratio) 1.0 1 0.7-1.6 [facility]JPQFYRWQEV4250-30-23 23:26:00 Test Item Value Reference Range Interpretation Comments PT (test code = PT) 15.2 s 12.0-14.7 [facility]OPTVTNGR4212-16-24 23:26:00 Test Item Value Reference Range Interpretation Comments INR (test code = INR) 1.19 1 0.85-1.17 [facility]PaiyqxjYUWNDDQSEP5028-61-49 23:26:00 Test Item Value Reference Range Interpretation Comments PTT (test code = PTT) 23.3 s 22.9-35.8 [facility] UROCD3188-05-45 10:53:0013[facility]annCHEM PANEL 2019-01-18 10:53:43600Yhnyayat HermannCHEM TZHTS3527-07-56 10:53:003.85[facility]annCHEM BTOZW7570-20-09 10:53:18687Wbkwkajl HermannCHEM IOOBI1672-78-64 10:53:0019[facility]annCHE[facility] TMTUR8745-60-16 10:53:008.6[facility]annCHEM FHNJI5930-48-40 10:53:00665Ihlafttn HermannCHEM PRCDN5855-86-24 10:53:0029 [facility]annCHE[facility] GBVVB3146-22-67 10:53:003.7[facility]annCHEM PANEL 2019-01-18 10:53:008.7[facility] XiqdeunMGIYXAITFX5916-08-02 10:53:0064.4[facility] BgnwyupIZRZQLADQU8529-10-81 10:53:003.7[facility] PdytdjwFVBRADRGLB5425-56-10 10:53:0021.0[facility] GojwkfoMLJIERFKWO5766-95-56 10:53:000.7[facility] HPMXTKFBSM0057-07-16 10:53:0010.2[facility] KtlxamwDIKTCUNEDD1981-15-87 10:53:00 4.5[facility] DdcjoofPFUSHQPAFV0255-17-79 10:53:000.7[facility]annHEMATOLOGY 2019-01-18 10:53:000.3[facility] MujzgnhWGZSIQGXLI9554-59-66 10:53:001.5[facility] YqqufksGVHCHXRWQK4226-24-78 10:53:007.0[facility] JllygzqFBEIHSCLGX8809-55-21 10:53:002.62[facility] OwsbfryUCNPDIGJTR3182-13-55 10:53:007.6[facility] KWIDXHSAEO8171-91-79 10:53:0022.6[facility] KkvzcgbWAGREFGEXU9464-97-67 10:53:00 86.4[facility] ItqmjgkFONHHWNACA6524-28-27 10:53:0033.6[facility]annHEMATOLOGY 2019-01-18 10:53:00 Test Item Value Reference Range Interpretation Comments MCH (test code = MCH) 29.0 pg 27.0-31.0 [facility] KtrqgtyCGJPYRUEJQ7797-93-29 10:53:0015.8[facility]annHEMATOLOGY 2019-01-18 10:53:009.7[facility] ApgxxxxYWCAIXCEAX6291-95-40 10:53:0098[facility] HermannCHEM HZTZM1509-93-67 10:53:0013[facility]annCHEM TQDTM2535-36-59 10:53:91594Mfuwwiup HermannCHEM BGQNV9509-01-84 10:53:003.85[facility]annCHEM YZFYT8997-38-30 10:53:72008Cqvllkfm [facility]annCHEM KVZQQ3534-46-07 10:53:0019 [facility]annCHE[facility] IEHRE1739-38-94 10:53:008.6[facility]annCHEM PANEL 2019-01-18 10:53:14924Hwqzrmzs HermannCHEM MTRDO2344-95-09 10:53:0029[facility]annCHEM ETUOF3974-07-18 10:53:003.7[facility]annCHEM ILJNN1996-32-34 10:53:008.7[facility] LfixnlrGMJKUPHKRR8573-93-84 10:53:0064.4[facility] PRZCEIATTR0579-18-46 10:53:003.7[facility] CwalptpCYVZTWEOCV7235-94-39 10:53:00 21.0[facility] RcimzinPHLPDOMVRD9160-71-12 10:53:000.7[facility]annHEMATOLOGY 2019-01-18 10:53:0010.2[facility] PpqklgoTAIYRFPOXF2022-34-87 10:53:004.5[facility] YoapovxPIJZPMGDSW9921-40-23 10:53:000.7[facility] PqnatiyNEWROKVRXI6753-85-37 10:53:000.3[facility] KwhcczkPVFYVUFDPG0261-70-16 10:53:001.5[facility] HKWJJPEYEJ2086-20-48 10:53:007.0[facility] QqieyprQCAKFNRHZJ9226-30-47 10:53:00 2.62[facility] GmozgyrINFVIILBGK9395-96-40 10:53:007.6[facility]annHEMATOLOGY 2019-01-18 10:53:0022.6[facility] CdjzsftSVRTNLKDBZ2435-87-30 10:53:0086.4[facility] TpwesyzMSIQEBJWDK7012-52-61 10:53:0033.6[facility] IcoxupiVNGQFBZVCR2340-94-88 10:53:00 Test Item Value Reference Range Interpretation Comments MCH (test code = MCH) 29.0 pg 27.0-31.0 [facility] ChmschgSDLFGVHZSM4528-50-96 10:53:0015.8[facility]annHEMATOLOGY 2019-01-18 10:53:009.7[facility] XyntcsiYDWTEIAJMT3707-82-90 10:53:0098[facility] B[facility] WLGKAAX5244-98-48 11:45:00Product available 4(01/17/19 6:45 AM) [facility] DRWBUOU8582-72-69 11:45:00Product available 4(01/17/19 6:45 AM)[facility]annCHEM NEMRD8221-89-10 10:38:0010[facility]annCHEM VLECC8057-79-73 10:38:0034[facility]annCHEM BXSKS2703-33-11 10:38:005.10 [facility]annCHE[facility] KHYIX7417-77-79 10:38:68793Ixkqhrnj HermannCHEM PANEL 2019-01-17 10:38:56163Ufikbeqa [facility]annCHEM BJRJK9009-13-72 10:38:005.2[facility]annCHEM WZHOW9674-91-29 10:38:59608Liwcmsfy HermannCHEM SIWBF9623-29-93 10:38:0025[facility]annCHEM SHAXC0111-27-84 10:38:008.5[facility]annCHEM RBDPK8748-47-79 10:38:0015.2[facility] TkuvsxdRFTGBPLQOU7843-53-29 10:38:000.8 [facility] YoehheeYUDLHXGLDR6826-72-31 10:38:0070.0[facility]annHEMATOLOGY 2019-01-17 10:38:008.2[facility] LuwfvqsGLLWXFPOYM9498-47-54 10:38:0019.0[facility] PgrzmquTRWPYFJHFH8236-04-65 10:38:002.0[facility] DtdwiqqFLGGNLSLSZ6000-49-15 10:38:004.3[facility] YfyrnhvHIOIYWGKSQ4285-23-00 10:38:000.5[facility] KTOFLIULTH1461-87-87 10:38:001.2[facility] XofkhgsNLYXCQSLMK8293-67-20 10:38:000.1 [facility] JmeefyoBOBBVXQMYT1782-83-91 10:38:0021.1[facility]annHEMATOLOGY 2019-01-17 10:38:0087.7[facility] XmmfrhsYKVIYPMJVG0354-51-56 10:38:006.8[facility] AkxiagaOEMIJDYCQJ2761-53-27 10:38:00 Test Item Value Reference Range Interpretation Comments MCH (test code = MCH) 28.4 pg 27.0-31.0 [facility] JeerfqyLVYMENBMPV7334-50-82 10:38:0016.6[facility]annHEMATOLOGY 2019-01-17 10:38:39308Jeemzdoo AlxcfihSRTVUAFYAO9501-70-48 10:38:009.7[facility] WrgfidgTJRJJBFSSG1624-10-87 10:38:0032.4[facility] KatvkmsQFUNHUGUNV4998-64-02 10:38:006.1[facility] OfynekqUDDQIHNGGS5249-70-04 10:38:002.41[facility] HermannCHEM IHRER3913-91-81 10:38:0010[facility]annCHEM CSMJI3564-09-25 10:38:0034 [facility]annCHEM PNGEZ0213-67-07 10:38:005.10[facility] HermannCHEM PANEL 2019-01-17 10:38:22784Vckzclbi HermannCHEM BCKDS4332-10-22 10:38:76488Fudmqjbb HermannCHEM KQLUT1762-35-09 10:38:005.2[facility] HermannCHEM SNIIM4842-39-27 10:38:51640Cgxdtaaz HermannCHEM TPHCR4047-84-79 10:38:0025[facility] HermannCHEM HQZWA9185-80-23 10:38:008.5[facility]annCHEM WSCKQ1909-19-60 10:38:0015.2 [facility] BaelbpzQYSYECVJXT6324-43-53 10:38:000.8[facility]annHEMATOLOGY 2019-01-17 10:38:0070.0[facility] AhmkjqxIZBLTJDHMN0260-99-95 10:38:008.2[facility] FfopukqOLDKMZOFUS8424-32-19 10:38:0019.0[facility] ObwhxejYVJILDZPXS6916-05-51 10:38:002.0[facility] QicrrkyFYUYEHGSCA5844-43-91 10:38:004.3[facility] HYRIWERSFB4050-56-61 10:38:000.5[facility] BqystarQYPIZQFOBR4273-43-81 10:38:001.2 [facility] VxxrebpRKVWPUWCSD4217-99-85 10:38:000.1[facility]annHEMATOLOGY 2019-01-17 10:38:0021.1[facility] TvqvmtzVWTTOGBTND3169-60-80 10:38:0087.7[facility] IghflnxHXZIRYWVSY3143-22-86 10:38:006.8[facility] WwyghdqMFAUDZOTGN7346-85-32 10:38:00 Test Item Value Reference Range Interpretation Comments MCH (test code = MCH) 28.4 pg 27.0-31.0 [facility] FtijiseCYMYYAICNV5157-50-88 10:38:0016.6[facility]annHEMATOLOGY 2019-01-17 10:38:39262Onjdqptl GbfnqlvJFTKIEBQCM7253-89-06 10:38:009.7[facility] NbrdsjtPOCESLWFWJ6878-55-47 10:38:0032.4[facility] NevlqnjHIKUFZFWLX5221-58-18 10:38:006.1[facility] RgrbtgbYMLPXTZHQX0609-30-61 10:38:002.41[facility] VOQOVMZAGT0235-31-58 19:50:00Negative *NA*(01/16/19 2:50 PM)[facility] UDCZXCWLBG9402-60-84 19:50:00<3.1[facility] LrghufnAPBGJTTWKI6325-85-98 19:50:00Negative *NA*(01/16/19 2:50 PM)[facility] SlbgzecOFEJMLHTAC3588-08-65 19:50:00Negative *NA*(01/16/19 2:50 PM)[facility] VwbflaaBDGUPASIRZ9648-40-11 19:50:00Negative *NA*(01/16/19 2:50 PM)[facility] PdclhtdRSUBOPEHNU9076-74-17 19:50:00<3.1[facility] MhactzxZFYYIMBWNC4545-14-49 19:50:00Negative *NA*(01/16/19 2:50 PM)[facility] CwwrksuKFJOCHKMWC0563-14-51 19:50:00Negative *NA*(01/16/19 2:50 PM)[facility]annCHEM YUFPN8895-76-18 19:08:568[facility]annCHEM MIHKD7044-64-91 19:08:563.3[facility]annCHEM XHZGR6721-39-02 19:08:54788Ldemvchy HermannCHEM HGNAD3013-25-04 19:08:5623[facility]annCHEM KOKLA1118-06-40 19:08:5610.1[facility] HermannCHEM DZCYE6248-42-90 19:08:5612.3 [facility]annCHEM ZMAXI7887-25-78 19:08:62582Eavcsskt HermannCHEM PANEL 2019-01-16 19:08:5647[facility] HermannCHEM MRPJT3052-75-06 19:08:565.77[facility] HermannCHEM LHLAN3442-94-28 19:08:04982Kzppsokx YjspryvPOXSQBMTGS7884-43-30 19:08:5626.2[facility] TibhhirQHAJEQZTAQ9907-00-05 19:08:568.3[facility] LFIPGUQWZT4311-71-92 19:08:562.98[facility] UohizipZMPBQBORRT7425-30-45 19:08:56 4.6[facility] KxumrhdHKRBIROUIB0091-14-49 19:08:5616.7[facility]annHEMATOLOGY 2019-01-16 19:08:5631.8[facility] SzfwaizJONKPMAABE6179-76-01 19:08:56 Test Item Value Reference Range Interpretation Comments MCH (test code = MCH) 28.0 pg 27.0-31.0 [facility] FvdctnrIMNNJCOEPG8575-36-14 19:08:5687.9[facility]annHEMATOLOGY 2019-01-16 19:08:569.1[facility] YyfhhurPFKUUPZTFK3530-02-77 19:08:02485Rekpjwwu WhgmuiiPXBUTWRAVJ8729-68-92 19:08:560.1[facility] StnazgtHGNMXYKRWX6605-43-38 19:08:560.6[facility] GpxcrprXHQQHURQKT2817-75-51 19:08:560.9[facility] GISFCCVRKD0225-71-26 19:08:5619.1[facility] OtervyaKOEAGWBNFZ0457-83-17 19:08:56 65.9[facility] RctqrnkPMJYYEOHHE4761-26-83 19:08:562.3[facility]annHEMATOLOGY 2019-01-16 19:08:5612.1[facility] MxrfqfoQMLUGTEXMF4577-36-22 19:08:563.1[facility] KctnmjzFQNEDYIIGM7089-85-43 19:08:560.6[facility] HermannCHEM DRSAH3794-26-68 19:08:568[facility]annCHEM OOUBT6059-62-96 19:08:563.3[facility] HermannCHEM XRIOM9104-63-00 19:08:74065Hvzfrayf HermannCHEM KZVWF6577-92-50 19:08:5623 [facility]annCHEM EOGUT0838-88-39 19:08:5610.1[facility] HermannCHEM PANEL 2019-01-16 19:08:5612.3[facility]annCHEM PAITF9189-71-22 19:08:84080Umkhavvs HermannCHEM YMIVX2986-16-12 19:08:5647[facility]annCHEM VFTSL0006-91-42 19:08:565.77[facility]annCHEM DVTTY2928-99-72 19:08:46204Vwsuwqfr [facility] GHSROIHFRN1687-38-26 19:08:5626.2[facility] MufordmGTIVAPJCPI1161-03-97 19:08:56 8.3[facility] PqjonagEQDHOPNRXS6992-43-11 19:08:562.98[facility]annHEMATOLOGY 2019-01-16 19:08:564.6[facility] NfmcfmzNLMFERWZAU5936-34-05 19:08:5616.7[facility] HdjsjnvUVKKYGGSSG4664-88-92 19:08:5631.8[facility] SaqwawjIKJUCXYULR7451-88-11 19:08:56 Test Item Value Reference Range Interpretation Comments MCH (test code = MCH) 28.0 pg 27.0-31.0 [facility]LpkpcsxPDHNDSATZI2131-18-63 19:08:5687.9[facility]annHEMATOLOGY 2019-01-16 19:08:569.1[facility] UjkliclPLKNYRNBON1246-57-84 19:08:27137Ihnuqgwq AecroziOYPEAMOPVD5223-81-99 19:08:560.1[facility] SpcobojMOGUUNGHMH0742-44-86 19:08:560.6[facility] VstwmeqWHFBHSCQAZ8611-18-01 19:08:560.9[facility] NFYWHUIQJO0289-19-17 19:08:5619.1[facility] RkbuavfJMBFWTEYBY1667-55-08 19:08:56 65.9[facility] BmpqfdmLSVIOSWLLP9127-61-79 19:08:562.3[facility] HermannHEMATOLOGY 2019-01-16 19:08:5612.1[facility] JpdaprjCHOYAEBYLP4040-34-29 19:08:563.1[facility] FkwyimiCJDGTAOGVF8419-96-99 19:08:560.6[facility] OpinewsTVsierra vista regional health centerBuyerMLS [facility] RESULTS 2019-01-16 14:35:00Negative (01/16/19 9:35 AM)[facility] 14:35:00 Test Item Value Reference Range Interpretation Comments PT (test code = PT) 14.1 s 12.0-14.7 [facility] HospitalPbinriwNJUBTXHNFY0461-63-27 14:35:00 Test Item Value Reference Range Interpretation Comments INR (test code = INR) 1.11 1 0.85-1.17 [facility] HospitalHlcjjhwEKWJLKSXFS5912-69-99 14:35:00 Test Item Value Reference Range Interpretation Comments PTT (test code = PTT) 28.3 s 22.9-35.8 [facility] [employer] [facility] WKLELRQ8507-68-33 14:35:00Negative (01/16/19 9:35 AM) [facility] HospitalPgijxgfPBHDSGHDBQ6000-47-36 14:35:00 Test Item Value Reference Range Interpretation Comments PT (test code = PT) 14.1 s 12.0-14.7 [facility] CenterEznsmscRSSRGDUOIP1122-03-16 14:35:00 Test Item Value Reference Range Interpretation Comments INR (test code = INR) 1.11 1 0.85-1.17 [facility] CenterEoqvjmpHOLYHSISQA8694-72-30 14:35:00 Test Item Value Reference Range Interpretation Comments PTT (test code = PTT) 28.3 s 22.9-35.8 [facility]
--- NOTE | 2021-02-05 13:38 | RAD REPORT ---
EXAM DESCRIPTION: CT - Ct Stroke Brain Wo Cont - 02/05/2021 1:31 pm CLINICAL HISTORY: CONFUSED COMPARISON: <Comparisons> TECHNIQUE: All CT scans are performed using dose optimization technique as appropriate and may inclu de automated exposure control or mA/KV adjustment according to patient size. FINDINGS: No intracranial hemorrhage, hydrocephalus or extra-axial fluid collection.No areas of brai n edema or evidence of midline shift. Moderate chronic small vessel ischemic changes. Remote bilatera l basal ganglia/ [place] radiata infarcts. Right mastoid effusion. The calvarium is intact. IMPRESSION: No acute intracranial abnormality.
[2021-02-05 14:06] LABS: Absolute Lymphocytes (CBC) 0.6 K/uL (0.7-4.9); Basophils % 1.4 % (0-1.3); Hematocrit 34.5 % (36.0-45.0); Lymphocytes % 8.4 % (15.3-44.8); MPV 7.7 fL (7.6-11.3); RBC Red Blood Cell Count 3.71 M/uL (3.86-4.86)
--- NOTE | 2021-02-05 14:23 | RAD REPORT ---
EXAM DESCRIPTION: RAD - Chest Single View - 02/05/2021 2:09 pm CLINICAL HISTORY: Stroke COMPARISON: Chest Single View dated 02/04/2021; Abdomen 1 View (KUB) dated 02/01/2021; Abdomen 1 View (KUB) dated 01/31/2021; Abdomen 1 View (KUB) dated 01/28/2021hest Single View dated 09/17/2020; Abdomen 1 View (KUB) dated 09/17/2020; Chest Single View dated 07/29/2020; Chest Single View dated 06/17/2020 FINDINGS: Bilateral pleural effusions with hazy bilateral airspace disease and prominence of the lexie tral pulmonary vasculature Cardiomegaly.No acute osseous abnormality. IMPRESSION: Bilateral airspace disease with pleural effusions favored to represent pulmonary edema. Superimposed pneumonia difficult to exclude radiographically.
[2021-02-05 14:24] LABS: Potassium 3.7 mmol/L (3.5-5.1)
[2021-02-05 14:36] LABS: Protime INR 1.47
[2021-02-05 17:46] LABS: Arterial Blood Carboxyhemoglob 1.7 % (0-1.5); Blood Gas Oxyhemoglobin 94.3 % (94-97)
[2021-02-05] MEDS ORDERED: NALOXONE 0.4 MG/ML VIAL ONE (17:53)
[2021-02-05 18:29] LABS: Urine Blood 1+ (Negative); Urine Glucose Negative (Negative); Urine Protein 1+ (Negative)
[2021-02-05 18:59] LABS: Urine Bacteria <20 /HPF (<20); Urine RBC <5 /HPF (NONE SEEN); Urine Yeast MANY (NONE SEEN)
--- NOTE | 2021-02-05 19:04 | ER ---
Nurse's Notes [facility] Name: Alma Rosa Corral Age: 65 yrs Sex: Female : 1955 Arrival Date: 02/05/2021 Time: 13:15 Bed Treatment Private MD: Diagnosis: Altered mental status, unspecified;Chronic kidney disease, stage 5;Anemia in chronic kidney disease Presentation: 02/05 13:19 Chief complaint: Parent and/or Guardian states: "She has been like this since she woke ss up at 6 this morning." reports shaky/ jerky movements, AMS and inability to walk. Coronavirus screen: Client denies travel out of the [place] in the last 14 days. Ebola Screen: Patient denies exposure to infectious person. Patient denies travel to an Ebola-affected area in the 21 days before illness onset. Initial Sepsis Screen: Does the patient meet any 2 criteria? No. Patient's initial sepsis screen is negative. Does the patient have a suspected source of infection? No. Patient's initial sepsis screen is negative. Risk Assessment: Do you want to hurt yourself or someone else? Patient reports no desire to harm self or others. Onset of symptoms was February 05, 2021 at 06:00. 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 - Social history:: Smoking status: Patient denies any tobacco usage or history of. Screenin:21 Nutritional screening: No deficits noted. Tuberculosis screening: Never had TB. ss 14:40 Abuse screen: Denies threats or abuse. Fall Risk No fall in past 12 months (0 pts). No vg1 secondary diagnosis (0 pts). IV access (20 points). Ambulatory Aid- None/Bed Rest/Nurse Assist (0 pts). Gait- Weak (10 pts.). Mental Status- Overestimates/Forgets Limitations (15 pts.). Total [place] Fall Scale indicates High Risk Score (45 or more points). Fall prevention measures have been instituted. Side Rails Up X 2 Placed Close to Nursing Station Family Present and informed to notify staff if the need to leave the bedside. Assessment: 13:15 Reassessment: Dr. Brady at bedside with and patient. ss 13:17 Reassessment: Code Stroke called. Pt to CT VIA stretcher with JENNY Bone and Cesar, alisa nurse technician. 13:20 General: Appears distressed, uncomfortable, Behavior is quiet. Pain: Noted to be vg1 confused, generalized jerky movements noted Unable to use pain scale. Patient is disoriented. Neuro: Level of Consciousness is alert, pt seems to understand when spoken to; asked pt if was in any pain and pt nodded 'no'. Asked pt to state name and and was unable to verbalize. Asked pt if she could feel my hand holding hers and pt nodded 'yes'. Cardiovascular: Patient's skin is warm and dry. Dialysis shunt: in the left arm, with palpable thrill, with auscultated bruit, with no erythema, with no edema, no bleeding noted. Respiratory: Airway is patent Respiratory effort is even, unlabored. GI: Peritoneal dialysis catheter capped. Site is clean and dry. Parent/caregiver reports the patient having vomiting. : No signs and/or symptoms were reported regarding the genitourinary system. EENT: No signs and/or symptoms were reported regarding the EENT system. Derm: Skin is intact, Skin temperature is warm. Musculoskeletal: Swelling present in right foot and left foot. 13:25 Reassessment: Pt stated pt was her usual self yesterday; talking, eating and vg1 interacting with others. This morning at approximately 0600, stated noticed pt was having jerking movements and wasn't talking much. Stated went to [facility] around 5811-7280 and pt was still not talking and having jerking motions. Also stated pt vomited at [facility]. Pt stated that's when he decided that she needed to come to the hospital. Stated also that pt receives peritoneal dialysis nightly. 16:00 Reassessment: Patient appears in no apparent distress at this time. No changes from [facility] previously documented assessment. Patient and/or family updated on plan of care and expected duration. Pain level reassessed. Pt is alert to painful stimuli; During insertion of gerardo catheter pt moaned. Pt mentioned that this morning pt had a breakfast taco and orange juice. Stated she was walking fine this morning with walker. Provider notified. 17:00 Reassessment: Zoey CORREA and Dr Martel at bedside. 1 17:30 Reassessment: Pt was given Narcan, and pt woke up and began to blink eyes and move [facility] extremities. Pt still unable to verbalized name, , or place. 17:51 Reassessment: Pt stated that pt asked him 'where am i?' Provider notified. [facility] 19:35 Reassessment: Patient appears in no apparent distress at this time. pt unable to [facility] verbalized name, , or place. Pt grimaced with touch to feet. 19:39 Reassessment: Pt wanted to know if he could start the peritoneal dialysis; [facility] contacted [facility], and she stated to begin dialysis in room. 20:07 Reassessment: [facility] notified pt of transferring pt to [facility] in [address] and not to begin dialysis. Pt stated 'if I am not able to sit by my wifes side at that hospital then she is not going'. 20:35 Reassessment: Patient appears in no apparent distress at this time. Pt resting with [facility] eyes closed; responds to touch on MITA feet. 21:57 Reassessment: Patient appears in no apparent distress at this time. Patient and/or [facility] family updated on plan of care and expected duration. Pain level reassessed. Pt responded to verbal stimuli; asked pt if was cold pt responded to 'yes' with a head node. Asked pt if she wanted another blanket, pt nodded head 'yes'. Explained to pt that was going to check temperature across forehead and pt raised eye brows. [facility]. 23:55 Reassessment: Pt lying quietly, responsive to painful stimuli, IV site intact, gerardo in bb place, spouse at bedside. [facility] at bedside for transfer of pt to [facility]. Vital Signs: 13:19 BP 149 / 87; Pulse 79; Resp 18; Temp 96.5(O); Pulse Ox 99% on R/A; Pain 0/10; ss 14:39 BP 157 / 90; Pulse 75; Resp 12; Temp 97.7(TE); Pulse Ox 99% on R/A; vg1 14:40 Weight 60.33 kg; Height 5 ft. 3 in. (160.02 cm); vg1 16:02 BP 159 / 94; Pulse 75; Resp 12; Pulse Ox 98% on R/A; vg1 16:30 BP 159 / 78; Pulse 86; Resp 16; Pulse Ox 100% ; vg1 17:00 BP 145 / 73; Pulse 93; Resp 12; Pulse Ox 100% ; vg1 17:30 BP 141 / 107; Pulse 92; Resp 16; Pulse Ox 100% ; vg1 19:00 BP 154 / 73; Pulse 84; Resp 14; Pulse Ox 100% ; vg1 19:30 BP 160 / 51; Pulse 84; Resp 12; Pulse Ox 100% ; vg1 20:00 BP 132 / 68; Pulse 70; Resp 16; Pulse Ox 100% ; vg1 20:30 BP 135 / 52; Pulse 67; Resp 18; Pulse Ox 100% ; vg1 21:00 BP 133 / 71; Pulse 84; Resp 14; Pulse Ox 99% ; vg1 21:30 BP 142 / 90; Pulse 87; Resp 12; Temp 98.5(TE); Pulse Ox 99% ; vg1 22:03 BP 145 / 60; Pulse 67; Resp 14; Temp 98.5(TE); Pulse Ox 99% ; vg1 23:55 BP 125 / 57; Pulse 70; Resp 12 S; Temp 97.5(TE); Pulse Ox 100% on R/A; bb 14:40 Body Mass Index 23.56 (60.33 kg, 160.02 cm) vg1 ED Course: 13:15 Patient arrived in ED. tw4 13:17 Phani Brady MD is Attending Physician. tw4 13:20 Triage completed. ss 13:20 Arm band placed on right wrist. ss 13:21 Patient has correct armband on for positive identification. Bed in low position. Call ss light in reach. 13:31 CT Stroke Brain w/o Contrast In Process Unspecified. EDMS 13:58 Smitha Cantu, RN is Primary Nurse. vg1 14:09 Stroke CXR 1 View In Process Unspecified. EDMS 15:45 Gerardo cath inserted, using sterile technique, 16 Fr., by id, balloon inflated, to vg1 gravity drainage, returned clear yellow urine. 18:25 Urine Microscopic Only Sent. 5 18:25 Urine collected: Gerardo catheter specimen, cloudy. mh5 19:02 CT Head Angio In Process Unspecified. EDMS 19:02 CT Neck Angio In Process Unspecified. EDMS 19:02 Wolfgang Martel DO is Hospitalizing Provider. tw4 21:15 initiated a transfer with Ana from [facility]. mw2 21:58 connected Young CORREA with the Doctor from [facility]. mw2 22:16 Report given to Erna ALVARADO. vg1 22:42 called Ana from [facility] to get an update on the transfer. She mw2 stated "[facility] should be calling back in about 10 minutes to give a bed assignment.". 22:53 administrative approval given by Ana Hobson/ patient has been accepted to [address]/ Dr. Allen accepted the patient in transfer/ report to be called to [phone]. 02/06 00:02 Cleaned of incontinence. mw2 00:07 No provider procedures requiring assistance completed. Patient transferred, IV remains bb in place. Administered Medications: 02/05 17:30 Drug: NARcan (naloxone) 0.4 mg {Note: administered by JENNY Langston.} Route: IVP; Site: 1 right upper arm; 19:44 Follow up: Response: No adverse reaction vg1 Output: 16:00 Urine: 225ml (Gerardo); Total: 225ml. vg1 Outcome: 19:04 Decision to Hospitalize by Provider. tw4 20:21 ER care complete, transfer ordered by . lp1 02/06 00:07 Transferred by ground EMS Transfer form completed. X-rays sent w/ patient. bb Condition: stable Instructed on the need for transfer. 00:08 Patient left the ED. bb Signatures: Dispatcher [employer] EDMS Erna Ndiaye, RN RN Ivis Garcia RN RN Jeni Denson, RN RN 1 Laura Harry 5 Phani Brady MD MD 4 Criselda Ramos 2 Smitha Cantu, RN RN vg1 Corrections: (The following items were deleted from the chart) 02/05 13:21 13:20 PMHx: HD - MWF; [facility] 14:03 13:59 Home Meds: Clonidine Oral; vg1 vg1 14:46 14:41 Reassessment: Pt received peritoneal dialysis nightly, per pt vg1 vg1 17:47 17:45 Reassessment: Pt was given Narcan, and pt woke up and began to blink eyes and vg1 move extremities. Pt still unable to verbalized name, , or place. vg1 19:01 18:34 UA MICROSCOPIC+U.LAB.BRZ drawn and sent. [address] 20:35 13:20 GI: Parent/caregiver reports the patient having vomiting, vg1 vg1
--- NOTE | 2021-02-05 19:04 | EDPHYS ---
Physician Documentation [facility] Name: Alma Rosa Corral Age: 65 yrs Sex: Female : 1955 Arrival Date: 02/05/2021 Time: 13:15 Bed Treatment Private MD: ED Physician Phani Brady HPI: 02/05 15:02 This 65 yrs old Black Female presents to ER via Wheelchair with complaints of changed tw4 mental status. 15:02 The patient presents with decreased mental status, decreased responsiveness. Onset: The tw4 symptoms/episode began/occurred this morning, at 06:00. Possible causes: unknown. Associated signs and symptoms: The patient has no apparent associated signs or symptoms. Current symptoms: In the emergency department the patient's symptoms are unchanged from the initial presentation. Patient's baseline: Neuro: alert and fully oriented, Motor: no deficits, Ambulation: walks without assistance, Speech: normal. The patient has not experienced similar symptoms in the past. 16:29 Patient according to her has been having decreased mental status since 0 600 tw4 this morning. There have been no complaints of any focal numbness or weakness. Patient had occasional jerking movements according to . Patient started on a new medication gabapentin in addition to other opiate medications that she has for her cervical surgery. Patient has not had similar symptoms previously. 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 - Social history:: Smoking status: Patient denies any tobacco usage or history of. ROS: 15:02 Unable to obtain ROS due to altered mental status. tw4 Exam: 15:02 Head/Face: Normocephalic, atraumatic. Eyes: Pupils equal round and reactive to light, tw4 extra-ocular motions intact. Lids and lashes normal. Conjunctiva and sclera are non-icteric and not injected. Cornea within normal limits. Periorbital areas with no swelling, redness, or edema. ENT: Nares patent. No nasal discharge, no septal abnormalities noted. Tympanic membranes are normal and external auditory canals are clear. Oropharynx with no redness, swelling, or masses, exudates, or evidence of obstruction, uvula midline. Mucous membranes moist. Chest/axilla: Normal chest wall appearance and motion. Nontender with no deformity. No lesions are appreciated. Cardiovascular: Regular rate and rhythm with a normal S1 and S2. No gallops, murmurs, or rubs. Normal PMI, no JVD. No pulse deficits. Respiratory: Lungs have equal breath sounds bilaterally, clear to auscultation and percussion. No rales, rhonchi or wheezes noted. No increased work of breathing, no retractions or nasal flaring. Abdomen/GI: Soft, non-tender, with normal bowel sounds. No distension or tympany. No guarding or rebound. No evidence of tenderness throughout. Back: No spinal tenderness. No costovertebral tenderness. Full range of motion. MS/ Extremity: Pulses equal, no cyanosis. Neurovascular intact. Full, normal range of motion. 15:02 Constitutional: The patient appears awake, non-toxic, well developed. Vital Signs: 13:19 BP 149 / 87; Pulse 79; Resp 18; Temp 96.5(O); Pulse Ox 99% on R/A; Pain 0/10; ss 14:39 BP 157 / 90; Pulse 75; Resp 12; Temp 97.7(TE); Pulse Ox 99% on R/A; vg1 14:40 Weight 60.33 kg; Height 5 ft. 3 in. (160.02 cm); vg1 16:02 BP 159 / 94; Pulse 75; Resp 12; Pulse Ox 98% on R/A; vg1 16:30 BP 159 / 78; Pulse 86; Resp 16; Pulse Ox 100% ; vg1 17:00 BP 145 / 73; Pulse 93; Resp 12; Pulse Ox 100% ; vg1 17:30 BP 141 / 107; Pulse 92; Resp 16; Pulse Ox 100% ; vg1 19:00 BP 154 / 73; Pulse 84; Resp 14; Pulse Ox 100% ; vg1 19:30 BP 160 / 51; Pulse 84; Resp 12; Pulse Ox 100% ; vg1 20:00 BP 132 / 68; Pulse 70; Resp 16; Pulse Ox 100% ; vg1 20:30 BP 135 / 52; Pulse 67; Resp 18; Pulse Ox 100% ; vg1 21:00 BP 133 / 71; Pulse 84; Resp 14; Pulse Ox 99% ; vg1 21:30 BP 142 / 90; Pulse 87; Resp 12; Temp 98.5(TE); Pulse Ox 99% ; vg1 22:03 BP 145 / 60; Pulse 67; Resp 14; Temp 98.5(TE); Pulse Ox 99% ; vg1 23:55 BP 125 / 57; Pulse 70; Resp 12 S; Temp 97.5(TE); Pulse Ox 100% on R/A; bb 14:40 Body Mass Index 23.56 (60.33 kg, 160.02 cm) vg1 MDM: 13:17 Patient medically screened. 02/05 13:27 Order name: Basic Metabolic Panel; Complete Time: 14:52 02/05 14:53 Interpretation: Normal except: BUN 48; GFR 8; CRE 6.14. 02/05 13:27 Order name: CBC with Diff; Complete Time: 14:52 tw02/05 14:53 Interpretation: Normal except: RBC 3.71; HGB 10.9; HCT 34.5; BRIGHT% 82.4; LYM% 8.4; RDW tw4 17.7; MCHC 31.6; BASO% 1.4. 02/05 13:27 Order name: Protime (+inr); Complete Time: 15:00 4 02/05 15:01 Interpretation: Normal except. 02/05 13:27 Order name: Ptt, Activated; Complete Time: 15:00 4 02/05 15:01 Interpretation: Within normal limits: PTT 28.2. 02/05 13:43 Order name: Glucose, Ancillary Testing; Complete Time: 14:52 EDMS 02/05 13:27 Order name: CT Stroke Brain w/o Contrast; Complete Time: 14:52 tw4 02/05 15:50 Order name: SARS-COV-2 RT PCR; Complete Time: 16:32 EDMS 02/05 16:28 Order name: Urine Microscopic Only; Complete Time: 19:38 tw4 02/05 17:27 Order name: ABG tw 02/05 17:27 Order name: ABG Arterial Blood Gas; Complete Time: 19:38 EDMS 02/05 18:28 Order name: Urine Dipstick-Ancillary; Complete Time: 19:38 EDMS 02/05 19:00 Order name: Urine Culture [facility] 02/05 13:27 Order name: Stroke CXR 1 View; Complete Time: 14:52 tw4 02/05 13:27 Order name: EKG; Complete Time: 13:28 tw4 02/05 13:27 Order name: Accucheck; Complete Time: 14:29 tw4 02/05 13:27 Order name: Cardiac monitoring; Complete Time: 14:29 tw4 02/05 13:27 Order name: EKG - Nurse/Tech; Complete Time: 14:29 tw4 02/05 13:27 Order name: IV Saline Lock; Complete Time: 14:29 tw4 02/05 13:27 Order name: Labs collected and sent; Complete Time: 14:29 tw4 02/05 13:27 Order name: NPO; Complete Time: 14:29 tw4 02/05 13:27 Order name: O2 Per Protocol; Complete Time: 14:29 tw4 02/05 13:27 Order name: O2 Sat Monitoring; Complete Time: 14:29 tw4 02/05 17:46 Order name: CT Head Angio; Complete Time: 19:38 tw4 02/05 17:46 Order name: CT Neck Angio; Complete Time: 19:38 tw4 02/05 16:28 Order name: Urine Dipstick-Ancillary (obtain specimen); Complete Time: 18:25 tw4 EC:48 Rate is 75 beats/min. Rhythm is regular. QRS [place] is Normal. AK interval is normal. QRS tw4 interval is normal. QT interval is normal. No Q waves. T waves are Normal. No ST changes noted. Clinical impression: NSR w/ Non-specific ST/T Changes. Interpreted by me. Reviewed by me. Administered Medications: 17:30 Drug: NARcan (naloxone) 0.4 mg {Note: administered by JENNY Langston.} Route: IVP; Site: vg1 right upper arm; 19:44 Follow up: Response: No adverse reaction vg1 Disposition Summary: 02/05/21 20:21 Transfer Ordered Reason: Higher level of care lp1 Condition: Stable(02/05/21 20:21) lp1 Problem: new(02/05/21 20:21) lp1 Symptoms: have improved(02/05/21 20:21) lp1 Transfer Location: Other Acute Care Facility(02/05/21 23:34) capri Accepting Physician: Alejandro(02/06/21 00:08) fany Diagnosis - Altered mental status, unspecified(02/05/21 20:21) lp1 - Chronic kidney disease, stage 5(02/05/21 20:21) lp1 - Anemia in chronic kidney disease(02/05/21 20:21) lp1 Forms: - Medication Reconciliation Form lp1 - SBAR form lp1 Signatures: Dispatcher [employer] EDMS María Cunningham RN RN Erna Ndiaye RN RN bb Ivis Garcia RN RN ss Pena, Laura, RN RN lp1 Phani Brady MD MD tw4 Smitha Cantu RN RN vg1 Tevin Hardy MD MD [id number] Corrections: (The following items were deleted from the chart) 13:21 13:20 PMHx: HD - MWF; ss ss 14:03 13:59 Home Meds: Clonidine Oral; vg1 vg1 14:52 13:38 CORONAVIRUS+MR.LAB.BRZ ordered. EDMS EDMS 14:53 14:52 Normal except: BUN 48; GFR 8. tw4 tw4 18:48 17:32 C Spine Wo Con+CT.RAD.BRZ ordered. EDMS EDMS 18:48 17:32 Thoracic Spine WO Cont+CT.RAD.BRZ ordered. EDMS EDMS 19:01 18:29 UA MICROSCOPIC+U.LAB.BRZ ordered. EDMS EDMS 20:20 19:04 Inpatient Admission tw4 lp1 20:20 19:04 Wolfgang Martel tw4 lp1 20:20 19:04 Telemetry/MedSurg (Inpatient) tw4 lp1 20:20 19:04 Stable tw4 lp1 20:20 19:04 new tw4 lp1 20:20 19:04 have improved tw4 lp1 20:20 19:04 Standard tw4 lp1 20:20 19:04 tw4 lp1 20:20 19:04 Altered mental status, unspecified tw4 lp1 20:20 19:04 Chronic kidney disease, stage 5 tw4 lp1 20:20 19:04 Anemia in chronic kidney disease tw4 lp1 23:34 20:21 Doctor lp1 mw 23:34 20:21 [facility] lp1 mw 02/06 00:08 02/05 23:34 Alejandro mw bb
--- NOTE | 2021-02-05 19:09 | RAD REPORT ---
EXAM DESCRIPTION: CT - Head angio - 02/05/2021 7:02 pm CLINICAL HISTORY: CONFUSED COMPARISON: Ct Stroke Brain Wo Cont dated 02/05/2021; Head Brain Wo Cont dated 06/17/2020 TECHNIQUE: CT angiography of the head was performed with MIPs. All CT scans are performed using dose optimization technique as appropriate and may include automated exposure control or mA/KV adjustment according to patient size. FINDINGS: No evidence of aneurysm is detected. No flow-limiting stenosis or vascular malformation id entified. Antegrade flow is seen in the vertebral arteries. The vertebral arteries are codominant. The visualized dural venous sinuses are patent. Intracranial atherosclerosis. IMPRESSION: No significant flow abnormality is detected.
--- NOTE | 2021-02-05 19:10 | RAD REPORT ---
EXAM DESCRIPTION: CT - Neck Angio - 02/05/2021 7:02 pm CLINICAL HISTORY: PAIN COMPARISON: No comparisons TECHNIQUE: CT angiography of the neck vessels was performed with MIPs. All CT scans are performed using dose optimization technique as appropriate and may include automated exposure control or mA/KV adjustment according to patient size. FINDINGS: A left aortic arch is identified with normal three vessel configuration of the great vesse ls. No significant flow abnormality is seen of the common carotid bilaterally. No significant stenosis is identified involving the cervical segments of both internal carotid arteri es. Normal flow is seen within both vertebral arteries. Moderate right pleural effusion. IMPRESSION: No significant flow abnormality of the neck vessels is identified.
[2021-02-06 00:48] VITALS: BP 125/57; TEMP 97.5; O2SAT 100
== END 2021-02-06 00:08 ==
LOC: ER 13:02
DX: I12.0 Hypertensive chronic kidney disease with stage 5 chronic kidney disease or end stage renal disease (principal); D63.1 Anemia in chronic kidney disease; N18.5 Chronic kidney disease, stage 5; Z99.2 Dependence on renal dialysis; Z20.822 Contact with and (suspected) exposure to COVID-19; Z86.73 Personal history of transient ischemic attack (TIA), and cerebral infarction without residual deficits; Z88.8 Allergy status to other drugs, medicaments and biological substances
CPT/HCPCS: 93005 ×2; 87088; 85025; 87086; 80048; 36415; 85610; 82947; 85730; 70496; 70498; 70450; 71045; 82805; 51702; 96374; 99291; 99292; U0003; Q9967; J2310; 81003; 81015

== ENCOUNTER 2021-04-26 06:20 | Day surgery (SDC) | payer OTHER ==
[2021-04-26] MEDS ORDERED: Ringers Lactate 0 ML IV ONE (06:38)
[2021-04-26] MEDS: NA CHLORIDE 0.9% 500 ML ONE ×2 (07:00→07:54)
[2021-04-26] MEDS ORDERED: propofoL 200 MG/20 ML VIAL IV ONE (07:20)
[2021-04-26] MEDS ORDERED: LIDOCAINE 1% MPF 5 ML VIAL ONE (07:20)
[2021-04-26] MEDS ORDERED: MIDAZOLAM HCL 2 MG/2 ML INJ ONE (07:44)
[2021-04-26] MEDS ORDERED: EPHEDRINE SULF 50 MG/ML VIAL ONE (08:06)
[2021-04-26] MEDS ORDERED: NS 0.9% VIAL 10 ML ONE (08:06)
[2021-04-26 08:48] VITALS: O2SAT 100
[2021-04-26 09:17] VITALS: BP 181/74
[2021-04-26 09:37] VITALS: TEMP 98.2
--- NOTE | 2021-05-01 11:10 | ENDO RPT ---
[address], [address] COLONOSCOPY PROCEDURE REPORT EXAM DATE: 04/26/2021 PATIENT NAME: Alma Rosa Corral MR #: [id number] BIRTHDATE: 1955 ATTENDING: Elia Harry MD STATUS: outpatient INDUSTRIAL PHARMACIST: Laura DELCID and Sylvia Washburn RN INDICATIONS: The patient is a 65 yr old Female here for a colonoscopy due to change in bowel habits, constipation PROCEDURE PERFORMED: Screening Colonoscopy MEDICATIONS: Per Anesthesia. ESTIMATED BLOOD LOSS: None CONSENT: The patient understands the risks and benefits of the procedure and understands that these risks include, but are not limited to: sedation, allergic reaction, infection, perforation and/or bleeding. Alternative means of evaluation and treatment include, among others: physical exam, x-rays, and/or surgical intervention. The patient elects to proceed with this endoscopic procedure. DESCRIPTION OF PROCEDURE: During intra-op preparation period all mechanical medical equipment was checked for proper function. Hand hygiene and appropriate measures for infection prevention was taken. Procedure, possible complications, alternatives including, but not limited to possibility of bleeding, perforation, tear, infection, sepsis, need for surgery, need for blood transfusion, were explained to the patient. After the risks, benefits and alternatives of the procedure were thoroughly explained, Informed consent was verified, confirmed and timeout was successfully executed by the treatment team. The patient was placed in the left lateral position. A digital rectal exam was performed and revealed hemorrhoids and A digital rectal exam was performed and revealed external hemorrhoids. After appropriate level of anesthesia, the scope was passed. The [id number] ([id number]) endoscope was introduced through the anus and advanced to the terminal ileum which was intubated for a short distance. The quality of the prep was poor. The instrument was then slowly withdrawn as the colon was fully examined. Scope withdrawal time was . COLON FINDINGS: Internal and external hemorrhoids were found. Retroflexed views revealed no abnormalities. The scope was then completely withdrawn from the patient and the procedure terminated. ADVERSE EVENTS: There were no complications. IMPRESSIONS: Internal and external hemorrhoids RECOMMENDATIONS: air constrast barium enema (acbe) RECALL: Return in 1 year(s) for Colonoscopy. Pending barium enema. Patient couldnt tolerate bowel prep and she doesnt want to try again at this time making colonoscopy limited. Elia Harry MD eSigned: Elia Harry MD 05/01/2021 11:09 AM cc: CPT CODES: ICD9 CODES: PATIENT NAME: Alma Rosa CorralMelissa MR#: [id number]
== END 2021-04-26 09:30 | disposition home or self-care (01) ==
LOC: OR 06:20
PROVIDERS: ATTEND Surgery
PROC: 0DJD8ZZ Inspection of Lower Intestinal Tract, Via Natural or Artificial Opening Endoscopic (ICD-10-PCS; principal; 2021-04-26 07:30)
DX: R19.4 Change in bowel habit (principal); Z85.038 Personal history of other malignant neoplasm of large intestine; R19.7 Diarrhea, unspecified; I10 Essential (primary) hypertension; E78.00 Pure hypercholesterolemia, unspecified; Z20.822 Contact with and (suspected) exposure to COVID-19; K64.4 Residual hemorrhoidal skin tags; K64.8 Other hemorrhoids
CPT/HCPCS: U0003; J2704; J2250; J7040; G0105; J7120

== ENCOUNTER 2022-11-16 10:50 | Emergency (ER) | payer OTHER ==
--- OUTSIDE RECORDS SUMMARY | 2022-11-16 11:10 | XMS REPORT | Continuity of Care Document ---
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 10/31/20 10:11:00 CDT, Weight gabapentin 2021-0 Yes 300 mg = 1 M emoria 300 MG Oral 8-10 cap, PO, l Capsule 19:55: Bedtime, # Herm vin 00 30 cap, 3 Refill(s), [id number], 160.02, cm, 10/31/20 10:11:00 CDT, Height, 60, kg, 10/31/20 10:11:00 CDT, Weight gabapentin 2021-0 Yes 300 mg = 1 M emoria 300 MG Oral 8-10 cap, PO, l Capsule 19:55: Bedtime, # Herm vin 00 30 cap, 3 Refill(s), [id number], 160.02, cm, 10/31/20 10:11:00 CDT, Height, 60, kg, 10/31/20 10:11:00 CDT, Weight tizanidine 2021-0 No 4 mg = 1 Mem oria 4 MG Oral 8-10 tab, PO, l Tablet 19:54: Q8H, # 90 Keenan n [Zanaflex] 00 tab, 3 Refill(s), [id number], 160.02, cm, 10/31/20 10:11:00 CDT, Height, 60, kg, 10/31/20 10:11:00 CDT, Weight tizanidine 2021-0 No 4 mg = 1 Mem oria 4 MG Oral 8-10 tab, PO, l Tablet 19:54: Q8H, # 90 Keenan n [Zanaflex] 00 tab, 3 Refill(s), Pharmacy: [facility] #[id number], 160.02, cm, 10/31/20 10:11:00 CDT, Height, 60, kg, 10/31/20 10:11:00 CDT, Weight tizanidine 2020-0 No 4 mg = 1 Mem oria 4 MG Oral 8-10 tab, PO, l Tablet 19:54: Q8H, # 90 Keenan n [Zanaflex] 00 tab, 3 Refill(s), Pharmacy: [facility] #[id number], 160.02, cm, 10/31/20 10:11:00 CDT, Height, 60, kg, 10/31/20 10:11:00 CDT, Weight tizanidine 2020-0 No 4 mg = 1 Mem oria 4 MG Oral 8-10 tab, PO, l Tablet 19:54: Q8H, # 90 Keenan n [Zanaflex] 00 tab, 3 Refill(s), Pharmacy: [facility] #[id number], 160.02, cm, 10/31/20 10:11:00 CDT, Height, 60, kg, 10/31/20 10:11:00 CDT, Weight carvedilol 0 Yes TAKE 1 Memor ia 12.5 mg [...] tab, PO, l tablet 19:21: Daily, # [place] 00 30 tab, 0 Refill(s) methocarbam 0 No 1,000 mg = Memoria ol 500 mg 8-10 2 tab, PO, l oral tablet 19:21: QID, # 56 H ermann 00 tab, 0 Refill(s) pantoprazol 0 Yes 0 Memori a e 40 mg 8-10 Refill(s) l oral 19:21: [place] enteric 00 coated tablet Acetaminoph Yes 1 tab, PO, Memoria en 325 MG / 8-10 Q4H, PRN l Hydrocodone 19:21: Pain, # 30 [place] Bitartrate 00 tab, 0 10 MG Oral Refill(s) Tablet lisinopril Yes 20 mg = 1 Me moria 20 mg oral 8-10 tab, PO, l tablet 19:21: Daily, # [place] 00 30 tab, 0 Refill(s) methocarbam 2020-0 No 1,000 mg = Memoria ol 500 mg 8-10 2 tab, PO, l oral tablet 19:21: QID, # 56 H ermann 00 tab, 0 Refill(s) pantoprazol 0 Yes 0 Memori a e 40 mg 8-10 Refill(s) l oral 19:21: [place] enteric 00 coated tablet Acetaminoph 0 Yes 1 tab, PO, Memoria en 325 MG / 8-10 Q4H, PRN l Hydrocodone 19:21: Pain, # 30 [place] Bitartrate 00 tab, 0 10 MG Oral Refill(s) Tablet lisinopril 0 Yes 20 mg = 1 Me moria 20 mg oral 8-10 tab, PO, l tablet 19:21: Daily, # [place] 00 30 tab, 0 Refill(s) methocarbam No [...] PRN l Hydrocodone 19:21: Pain, # 30 [place] Bitartrate 00 tab, 0 10 MG Oral Refill(s) Tablet lisinopril Yes 20 mg = 1 Me moria 20 mg oral 8-10 tab, PO, l tablet 19:21: Daily, # [place] 00 30 tab, 0 Refill(s) methocarbam No 1,000 mg = Memoria ol 500 mg 8-10 2 tab, PO, l oral tablet 19:21: QID, # 56 H ermann 00 tab, 0 Refill(s) pantoprazol Yes 0 Memori a e 40 mg 8-10 Refill(s) l oral 19:21: [place] enteric 00 coated tablet Acetaminoph Yes 1 tab, PO, Memoria en 325 MG / 8-10 Q4H, PRN l Hydrocodone 19:21: Pain, # 30 [place] Bitartrate 00 tab, 0 10 MG Oral Refill(s) Tablet apixaban 2020- No 2.5mg Q.5D Take [facility] 2[facility]5 mg Tab 00:00: 23:59 (2.5 mg Med ical tablet 00 :00 total) by Center mouth 2 (two) times daily for 30 days. cholecalcif 2021- No 2000U QD Take [address] [facility] 2,000 01-04 0714 tablet [facility] unit Tab 00:00: 23:59 (2,000 Medica l 00 :00 Units Center total) by mouth daily. pantoprazol 2020- No 40mg QD Take [address] [facility] 7-14 08-13 tablet (40 [facility] (PROTONIX) 00:00: 23:59 mg total) M edical 40 MG 00 :00 by mouth Center tablet daily for 30 days. hydrALAZINE Yes 25mg Q.[id number] Take [address] [facility] (APRESOLINE 7-13 [id number] by mouth 3 [facility] ) 25 MG 18:53: 3D (three) Medical tablet 50 times Center daily. hydrOXYzine Yes 10mg Take [address] [facility] (ATARAX) 10 7-13 by mouth 3 Maria G kes MG tablet 18:53: (three) Medic al 50 times Center daily as needed for Itching. atorvastati Yes 40mg QD Take [address] [facility] n (LIPITOR) 7-13 by mouth Luke s 40 MG 18:53: nightly. Medical tablet 50 Center levothyroxi 0 Yes 50ug Take [address] [facility] ne 7-13 mcg by [facility] (SYNTHROID, 18:53: mouth Medic al LEVOTHROID) 50 Every Center 50 MCG morning on tablet an empty stomach. bumetanide Yes 1mg QD Take [address] [facility] [address] [facility] (BUMEX) 1 7-13 by mouth [facility] MG tablet 18:53: daily. Medica l 50 Center spironolact Yes 50mg QD Take [address] [facility] one 7-13 by mouth [facility] (ALDACTONE) 18:53: daily. Medi denise 50 MG 50 Center tablet cloNIDine Yes .1mg Take 0.[address] [facility] HCL 7-13 mg by [facility] (CATAPRES) 18:53: mouth Medica l 0.1 MG 50 daily as Center tablet needed. carvediloL Yes 12.5mg Q.[id number] Take 12.[address] [facility] (COREG) 7-13 [id number] mg by [facility] 12.5 MG 18:53: 3D mouth 3 Medical tablet 50 (three) Center times daily . liothyronin 0 Yes 5ug QD Take [address] [facility] (CYTOMEL) 7-13 by mouth Luke s 5 MCG 18:53: daily. Medical tablet 50 Center allopurinoL 0 Yes 100mg QD Take [address] (ZYLOPRIM) 7-13 mg by [facility] 100 MG 18:53: mouth Medical tablet 50 daily. Center folic Yes Take by [facility] ac/vit 7-13 mouth. [facility] Bcomp,C/Zn/ 18:53: Medica l vit D3 50 Center (DIALYVITE 800-ULTRA D ORAL) cyanocobala Yes 2500ug QD Take 2,[address] [facility] min 2000 7-13 mcg by [facility] MCG tablet 18:53: mouth Medica l 50 daily. Center docusate Yes 100mg QD Take [address] [facility] sodium 7-13 mg by [facility] (COLACE) 18:53: mouth Medical 100 MG 50 daily. Center capsule promethazin Yes 5mL Take [address] [facility] e-codeine 7-13 by mouth [facility] (PHENERGAN 18:53: every 4 Medi denise with 50 (four) Center CODEINE) hours as 6.25-10 needed for mg/5 mL Cough. syrup albuterol Yes 1{ampul Take [address] [facility] (ACCUNEB) 7-13 e} ampule by [facility] 0.63 mg/3 18:53: nebulizati Me dical mL 50 on every 6 Center nebulizer (six) solution hours. budesonide Yes .25mg Q.5D Take 0.[address] (PULMICORT) 7-13 mg by [facility] 0.25 mg/2 18:53: nebulizati Me dical mL 50 on 2 (two) Center nebulizer times solution daily. ramipriL 2020- No 5mg QD Take [address] [facility] (ALTACE) 5 7-13 07-13 by mouth Luke s MG capsule 14:07: 00:00 nightly. Me dical 08 :00 Center apixaban 2020- No 2.5mg Q.5D Take 2.[address] [facility] (Eliquis) 7-13 07-13 mg by [facility] 2.5 mg Tab 14:07: 00:00 mouth 2 Med ical tablet 08 :00 (two) Center times daily. lisinopriL 2020- No 20mg QD Take [address] [facility] (PRINIVIL,Z 7-13 08-12 tablet (20 L ukes ESTRIL) 20 00:00: 23:59 mg total) M edical MG tablet 00 :00 by mouth Center nightly for 30 days. hydrALAZINE 2020- No 50mg Take [address] [facility] (APRESOLINE 01-03 08-12 tablet (50 L ukes ) 50 MG 00:00: 23:59 mg total) Medi denise tablet 00 :00 by mouth Center every 8 (eight) hours for 30 days. HYDROcodone 2020- No 2{tbl} Take [address] -acetaminop 01-03 07-23 tablets by Kalyani mckeon hen (NORCO 00:00: 23:59 mouth Medic al 10-325) 00 :00 every 4 Center 10-325 mg (four) per tablet hours as needed for up to 10 days. Max Daily Amount: 12 tablets atorvastati No 1mg n 40 mg 6-07 tablet 00:00: 00 atorvastati 2020-0 No 1mg n 40 mg 6-07 tablet 00:00: 00 Calcitriol 0 Yes 0.25 Memoria 5-10 microgram, l 21:00: PO, [place] Q-M-W-F, 0 Refill(s) Calcitriol 0 Yes 0.25 Memoria 5-10 microgram, l 21:00: PO, [place] Q--W-F, 0 Refill(s) Calcitriol 2020-0 Yes 0.25 Memoria 5-10 microgram, l 21:00: PO, [place] Q--W-F, 0 Refill(s) Calcitriol 0 Yes 0.25 Memoria 5-10 microgram, l 21:00: PO, [place] Q--W-F, 0 Refill(s) Hydralazine 0 Yes TAKE 1 Anthony litzy Hydrochlori 5-10 TABLET BY l de 25 MG 15:15: MOUTH FOUR Her cardenas Oral Tablet 00 TIMES DAILY WITH FOOD Hydralazine 0 Yes TAKE 1 Anthony litzy Hydrochlori 5-10 TABLET BY l de 25 MG 15:15: MOUTH FOUR Her cardenas Oral Tablet 00 TIMES DAILY WITH FOOD Hydralazine 0 Yes TAKE 1 Anthony litzy Hydrochlori 5-10 TABLET BY l de 25 MG 15:15: MOUTH FOUR Her cardenas Oral Tablet 00 TIMES DAILY WITH FOOD Hydralazine 0 Yes TAKE 1 Anthony litzy Hydrochlori 5-10 TABLET BY l de 25 MG 15:15: MOUTH FOUR Her cardenas Oral Tablet 00 TIMES DAILY WITH FOOD levothyroxi 2020-0 No 1mcg ne 50 mcg 3-16 tablet 00:00: 00 liothyronin 2020-0 No 1mcg e 5 mcg 3-16 tablet 00:00: 00 levothyroxi 2020-0 No 1mcg ne 50 mcg 3-16 tablet 00:00: 00 liothyronin 2020-0 No 1mcg e 5 mcg 3-16 tablet 00:00: 00 Ramipril 0 Yes 5 mg, PO, Anthony litzy 1-27 Daily, 0 l 20:07: Refill(s) Spironolact 0 Yes 1 mg, PO, M emoria one - Daily, # l 20:07: 60 tab, 0 Refill(s) Dialyvite 0 Yes 0 Memoria 800 Ultra D 07-20 Refill(s) l 20:07: Hydralazine 0 No 25 mg, PO, Memoria 1-27 Daily, 0 l 20:07: Refill(s) Ramipril 0 Yes 5 mg, PO, Anthony litzy 1-27 Daily, 0 l 20:07: Refill(s) Spironolact 0 Yes 1 mg, PO, M emoria one -27 Daily, # l 20:07: 60 tab, 0 Refill(s) Dialyvite 2020-0 Yes 0 Memoria 800 Ultra D - Refill(s) l 20:07: Hydralazine 2020-0 No 25 mg, PO, Memoria 1-27 Daily, 0 l 20:07: Refill(s) Ramipril 2020-0 Yes 5 mg, PO, Atnhony litzy 1-27 Daily, 0 l 20:07: Refill(s) Spironolact 0 Yes 1 mg, PO, M emoria one 1-27 Daily, # l 20:07: 60 tab, 0 Refill(s) Dialyvite Yes 0 Memoria 800 Ultra D - Refill(s) l 20:07: Hydralazine No 25 mg, PO, Memoria - Daily, 0 l 20:07: Refill(s) Ramipril Yes 5 mg, PO, Anthony litzy - Daily, 0 l 20:07: Refill(s) Spironolact Yes 1 mg, PO, M emoria one - Daily, # l 20:07: 60 tab, 0 Refill(s) Dialyvite Yes 0 Memoria 800 Ultra D - Refill(s) l 20:07: Hydralazine No 25 mg, PO, Memoria - Daily, 0 l 20:07: Refill(s) glycopyrrol 2019-06 No Route: IV, Memoria ate (ANES) 07-27 Drug form: l 19:23: INJ, ONCE, Stop date: 05/26/20 13:23:00 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 neostigmine 2019-06 No Route: IV, Memoria (ANES) 07-27 Drug form: l 19:23: INJ, ONCE, Stop date: 05/26/20 13:23:00 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 labetalol 2019-06 No Route: IV, Me moria (ANES) 07-27 Drug form: l 19:23: INJ, ONCE, Stop date: 05/26/20 13:23:00 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 glycopyrrol 2019-06 No Route: IV, Memoria ate (ANES) 07-27 Drug form: l 19:23: INJ, ONCE, Stop date: 05/26/20 13:23:00 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 neostigmine 2019-06 No Route: IV, Memoria (ANES) 2 Drug form: l 19:23: INJ, ONCE, Stop date: 05/26/20 13:23:00 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 labetalol 2019-06 No Route: IV, Me moria (ANES) 2 Drug form: l 19:23: INJ, ONCE, Stop date: 05/26/20 13:23:00 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 glycopyrrol 2019-06 No Route: IV, Memoria ate (ANES) 07-27 Drug form: l 19:23: INJ, ONCE, Stop date: 05/26/20 13:23:00 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 neostigmine 2019-06 No Route: IV, Memoria (ANES) 07-27 Drug form: l 19:23: INJ, ONCE, Stop date: 05/26/20 13:23:00 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 labetalol 2019-06 No Route: IV, Me moria (ANES) 07-27 Drug form: l 19:23: INJ, ONCE, Stop date: 05/26/20 13:23:00 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 glycopyrrol 2019-06 No Route: IV, Memoria ate (ANES) 07-27 Drug form: l 19:23: INJ, ONCE, Stop date: 05/26/20 13:23:00 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 neostigmine 2019-06 No Route: IV, Memoria (ANES) 07-27 Drug form: l 19:23: INJ, ONCE, Stop date: 05/26/20 13:23:00 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 labetalol 2019-06 No Route: IV, Me moria (ANES) 07-27 Drug form: l 19:23: INJ, ONCE, Stop date: 05/26/20 13:23:00 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 Hydralazine 2019-06 No 10 mg, Anthony litzy 07-27 Route: l 19:11: IVP, [place] 00 Q20Min, Dosing Weight 64.545, kg, PRN Elevated BP, Start date: 05/26/20 13:11:00 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, Duration: 2 doses or times, Stop date: Limited # of times Labetalol 2019-06 No 10 mg, Memori a 07-27 Route: l 19:11: IVP, [place] 00 Q5Min, Dosing Weight 64.545, kg, PRN Elevated BP, Start date: 05/26/20 13:11:00 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, Duration: 5 doses or times, Stop date: Limited # of times Acetaminoph 2019-06 No 1,000 mg, M emoria en 07-27 Route: PO, l 19:11: Drug form: [place] 00 TAB, ONCE, Dosing Weight 64.545, kg, PRN Pain Score 1-3, Start date: 05/26/20 13:11:00 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 Fentanyl 2019- No 25 Memoria 2-03 microgram, l 19:11: Route: [place] 00 IVP, Q5Min, Dosing Weight 64.545, kg, PRN Pain Score 4-6, Priority: Routine, Start date: 05/26/20 13:11:00 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, Duration: 4 doses or times, Stop date: Limited # of times Hydromorpho 2019- No 0.5 mg, Mem oria ne 2-03 Route: l 19:11: IVP, [place] 00 Q5Min, Dosing Weight 64.545, kg, PRN Pain Score 7-10, Start date: 05/26/20 13:11:00 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, Duration: 4 doses or times, Stop date: Limited # of times Flumazenil 2019- No 0.2 mg, Anthony litzy 2- Route: l 19:11: IVP, PRN, [place] 00 Dosing Weight 64.545, kg, PRN Benzodiaze pine Reversal, Initial dose, Start date: 05/26/20 13:11:00 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, Duration: 30 day, Stop date: 06/25/20 13:10:00 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 Naloxone 2019- No 0.4 mg, Memori a 2-03 Route: l 19:11: IVP, [place] 00 Q2MIN, Dosing Weight 64.545, kg, PRN Narcotic Reversal, Start date: 05/26/20 13:11:00 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, Duration: 8 doses or times, Stop date: Limited # of times Ondansetron 2019- No 4 mg, Memor ia 2-03 Route: l 19:11: IVP, ONCE, [place] 00 Dosing Weight 64.545, kg, PRN Nausea & Vomiting, Start date: 05/26/20 13:11:00 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 Promethazin 2019- No 6.25 mg, Me moria e 2-03 Route: l 19:11: IVPB, [place] 00 ONCE, Dosing Weight 64.545, kg, PRN Nausea & Vomiting, Start date: 05/26/20 13:11:00 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 Hydralazine 2019- No 10 mg, Anthony litzy 2-03 Route: l 19:11: IVP, [place] 00 Q20Min, Dosing Weight 64.545, kg, PRN Elevated BP, Start date: 05/26/20 13:11:00 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, Duration: 2 doses or times, Stop date: Limited # of times Labetalol 2019-06 No 10 mg, Memori a 07-27 Route: l 19:11: IVP, [place] 00 Q5Min, Dosing Weight 64.545, kg, PRN Elevated BP, Start date: 05/26/20 13:11:00 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, Duration: 5 doses or times, Stop date: Limited # of times Acetaminoph 2019-06 No 1,000 mg, M emoria en 07-27 Route: PO, l 19:11: Drug form: [place] 00 TAB, ONCE, Dosing Weight 64.545, kg, PRN Pain Score 1-3, Start date: 05/26/20 13:11:00 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 Fentanyl 2019-06 No 25 Memoria 2-03 microgram, l 19:11: Route: [place] 00 IVP, Q5Min, Dosing Weight 64.545, kg, PRN Pain Score 4-6, Priority: Routine, Start date: 05/26/20 13:11:00 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, Duration: 4 doses or times, Stop date: Limited # of times Hydromorpho 2019-06 No 0.5 mg, Mem oria ne 07-27 Route: l 19:11: IVP, [place] 00 Q5Min, Dosing Weight 64.545, kg, PRN Pain Score 7-10, Start date: 05/26/20 13:11:00 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, Duration: 4 doses or times, Stop date: Limited # of times Flumazenil 2019-06 No 0.2 mg, Anthony litzy 07-27 Route: l 19:11: IVP, PRN, [place] 00 Dosing Weight 64.545, kg, PRN Benzodiaze pine Reversal, Initial dose, Start date: 05/26/20 13:11:00 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, Duration: 30 day, Stop date: 06/25/20 13:10:00 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 Naloxone 2019- No 0.4 mg, Memori a 07-27 Route: l 19:11: IVP, [place] 00 Q2MIN, Dosing Weight 64.545, kg, PRN Narcotic Reversal, Start date: 05/26/20 13:11:00 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, Duration: 8 doses or times, Stop date: Limited # of times Ondansetron 2019-06 No 4 mg, Memor ia 2- Route: l 19:11: IVP, ONCE, [place] 00 Dosing Weight 64.545, kg, PRN Nausea & Vomiting, Start date: 05/26/20 13:11:00 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 Promethazin 2019-06 No 6.25 mg, Me moria e 2- Route: l 19:11: IVPB, [place] 00 ONCE, Dosing Weight 64.545, kg, PRN Nausea & Vomiting, Start date: 05/26/20 13:11:00 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 Hydralazine 2019-06 No 10 mg, Anthony litzy 2 Route: l 19:11: IVP, [place] 00 Q20Min, Dosing Weight 64.545, kg, PRN Elevated BP, Start date: 05/26/20 13:11:00 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, Duration: 2 doses or times, Stop date: Limited # of times Labetalol 2019-06 No 10 mg, Memori a 2 Route: l 19:11: IVP, [place] 00 Q5Min, Dosing Weight 64.545, kg, PRN Elevated BP, Start date: 05/26/20 13:11:00 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, Duration: 5 doses or times, Stop date: Limited # of times Acetaminoph 2019-06 No 1,000 mg, M emoria en 07-27 Route: PO, l 19:11: Drug form: [place] 00 TAB, ONCE, Dosing Weight 64.545, kg, PRN Pain Score 1-3, Start date: 05/26/20 13:11:00 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 Fentanyl 2019-06 No 25 Memoria 2-03 microgram, l 19:11: Route: [place] 00 IVP, Q5Min, Dosing Weight 64.545, kg, PRN Pain Score 4-6, Priority: Routine, Start date: 05/26/20 13:11:00 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, Duration: 4 doses or times, Stop date: Limited # of times Hydromorpho 2019-06 No 0.5 mg, Mem oria ne 2- Route: l 19:11: IVP, [place] 00 Q5Min, Dosing Weight 64.545, kg, PRN Pain Score 7-10, Start date: 05/26/20 13:11:00 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, Duration: 4 doses or times, Stop date: Limited # of times Flumazenil 2019- No 0.2 mg, Anthony litzy 2-03 Route: l 19:11: IVP, PRN, [place] 00 Dosing Weight 64.545, kg, PRN Benzodiaze pine Reversal, Initial dose, Start date: 05/26/20 13:11:00 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, Duration: 30 day, Stop date: 06/25/20 13:10:00 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 Naloxone 2019- No 0.4 mg, Memori a 2- Route: l 19:11: IVP, [place] 00 Q2MIN, Dosing Weight 64.545, kg, PRN Narcotic Reversal, Start date: 05/26/20 13:11:00 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, Duration: 8 doses or times, Stop date: Limited # of times Ondansetron 2019-06 No 4 mg, Memor ia 2- Route: l 19:11: IVP, ONCE, [place] 00 Dosing Weight 64.545, kg, PRN Nausea & Vomiting, Start date: 05/26/20 13:11:00 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 Promethazin 2019- No 6.25 mg, Me moria e 2-03 Route: l 19:11: IVPB, [place] 00 ONCE, Dosing Weight 64.545, kg, PRN Nausea & Vomiting, Start date: 05/26/20 13:11:00 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 Hydralazine 2019- No 10 mg, Anthony litzy 2-03 Route: l 19:11: IVP, [place] 00 Q20Min, Dosing Weight 64.545, kg, PRN Elevated BP, Start date: 05/26/20 13:11:00 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, Duration: 2 doses or times, Stop date: Limited # of times Labetalol 2019- No 10 mg, Memori a 2-03 Route: l 19:11: IVP, [place] 00 Q5Min, Dosing Weight 64.545, kg, PRN Elevated BP, Start date: 05/26/20 13:11:00 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, Duration: 5 doses or times, Stop date: Limited # of times Acetaminoph 2019- No 1,000 mg, M emoria en - Route: PO, l 19:11: Drug form: [place] 00 TAB, ONCE, Dosing Weight 64.545, kg, PRN Pain Score 1-3, Start date: 05/26/20 13:11:00 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 Fentanyl 2019-06 No 25 Memoria 2-03 microgram, l 19:11: Route: [place] 00 IVP, Q5Min, Dosing Weight 64.545, kg, PRN Pain Score 4-6, Priority: Routine, Start date: 05/26/20 13:11:00 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, Duration: 4 doses or times, Stop date: Limited # of times Hydromorpho 2019-06 No 0.5 mg, Mem oria ne 2- Route: l 19:11: IVP, [place] 00 Q5Min, Dosing Weight 64.545, kg, PRN Pain Score 7-10, Start date: 05/26/20 13:11:00 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, Duration: 4 doses or times, Stop date: Limited # of times Flumazenil 2019-06 No 0.2 mg, Anthony litzy 2 Route: l 19:11: IVP, PRN, [place] 00 Dosing Weight 64.545, kg, PRN Benzodiaze pine Reversal, Initial dose, Start date: 05/26/20 13:11:00 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, Duration: 30 day, Stop date: 06/25/20 13:10:00 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 Naloxone 2019-06 No 0.4 mg, Memori a 07-27 Route: l 19:11: IVP, [place] 00 Q2MIN, Dosing Weight 64.545, kg, PRN Narcotic Reversal, Start date: 05/26/20 13:11:00 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, Duration: 8 doses or times, Stop date: Limited # of times Ondansetron 2019-06 No 4 mg, Memor ia 2- Route: l 19:11: IVP, ONCE, [place] 00 Dosing Weight 64.545, kg, PRN Nausea & Vomiting, Start date: 05/26/20 13:11:00 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 Promethazin 2019-06 No 6.25 mg, Me moria e 2- Route: l 19:11: IVPB, [place] 00 ONCE, Dosing Weight 64.545, kg, PRN Nausea & Vomiting, Start date: 05/26/20 13:11:00 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 ePHEDrine 2019-06 No Route: IV, Me moria (ANES) 2- Drug form: l 18:27: INJ, ONCE, Stop date: 05/26/20 12:27:00 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 ePHEDrine 2019-06 No Route: IV, Me moria (ANES) 2- Drug form: l 18:27: INJ, ONCE, Stop date: 05/26/20 12:27:00 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 ePHEDrine 2019-06 No Route: IV, Me moria (ANES) 2- Drug form: l 18:27: INJ, ONCE, Stop date: 05/26/20 12:27:00 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 ePHEDrine 2019-06 No Route: IV, Me moria (ANES) 2- Drug form: l 18:27: INJ, ONCE, Stop date: 05/26/20 12:27:00 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 dexamethaso 2019-06 No Route: IV, Memoria ne (ANES) 2- Drug form: l 17:57: INJ, ONCE, Stop date: 05/26/20 11:57:00 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 ondansetron 2019-06 No Route: IV, Memoria (ANES) 2- Drug form: l 17:57: INJ, ONCE, Stop date: 05/26/20 11:57:00 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 dexamethaso 2019-06 No Route: IV, Memoria ne (ANES) 2- Drug form: l 17:57: INJ, ONCE, Stop date: 05/26/20 11:57:00 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 ondansetron 2019-06 No Route: IV, Memoria (ANES) 2- Drug form: l 17:57: INJ, ONCE, Stop date: 05/26/20 11:57:00 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 dexamethaso 2019-06 No Route: IV, Memoria ne (ANES) 2- Drug form: l 17:57: INJ, ONCE, Stop date: 05/26/20 11:57:00 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 ondansetron 2019-06 No Route: IV, Memoria (ANES) 2- Drug form: l 17:57: INJ, ONCE, Stop date: 05/26/20 11:57:00 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 dexamethaso 2019-06 No Route: IV, Memoria ne (ANES) 2- Drug form: l 17:57: INJ, ONCE, Stop date: 05/26/20 11:57:00 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 ondansetron 2019-06 No Route: IV, Memoria (ANES) 2- Drug form: l 17:57: INJ, ONCE, Stop date: 05/26/20 11:57:00 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 fentaNYL 2019-06 No Route: IV, Mem oria (ANES) 2- Drug form: l 17:52: INJ, ONCE, Stop date: 05/26/20 11:52:00 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 lidocaine 2019-06 No Route: IV, Me moria (ANES) 2- Drug form: l 17:52: INJ, ONCE, Stop date: 05/26/20 11:52:00 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 propofol 2019-06 No Route: IV, Mem oria (ANES) 2- Drug form: l 17:52: INJ, ONCE, Stop date: 05/26/20 11:52:00 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 rocuronium 2019-06 No Route: IV, M emoria (ANES) 2- Drug form: l 17:52: INJ, ONCE, Stop date: 05/26/20 11:52:00 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 ceFAZolin 2019-06 No Route: IV, Me moria (ANES) 2- Drug form: l 17:52: INJ, ONCE, Stop date: 05/26/20 11:52:00 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 norepinephr 2019-06 No Route: IV, Memoria ine (ANES) 2- Drug form: l 17:52: INJ, ONCE, Stop date: 05/26/20 11:52:00 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 fentaNYL 2019-06 No Route: IV, Mem oria (ANES) 2- Drug form: l 17:52: INJ, ONCE, Stop date: 05/26/20 11:52:00 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 lidocaine 2019-06 No Route: IV, Me moria (ANES) 2- Drug form: l 17:52: INJ, ONCE, Stop date: 05/26/20 11:52:00 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 propofol 2019-06 No Route: IV, Mem oria (ANES) 2- Drug form: l 17:52: INJ, ONCE, Stop date: 05/26/20 11:52:00 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 rocuronium 2019-06 No Route: IV, Keerthi emoria (ANES) 2- Drug form: l 17:52: INJ, ONCE, Stop date: 05/26/20 11:52:00 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 ceFAZolin 2019-06 No Route: IV, Me moria (ANES) 2- Drug form: l 17:52: INJ, ONCE, Stop date: 05/26/20 11:52:00 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 norepinephr 2019-06 No Route: IV, Memoria ine (ANES) 2- Drug form: l 17:52: INJ, ONCE, Stop date: 05/26/20 11:52:00 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 fentaNYL 2019-06 No Route: IV, Mem oria (ANES) 2- Drug form: l 17:52: INJ, ONCE, Stop date: 05/26/20 11:52:00 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 lidocaine 2019-06 No Route: IV, Me moria (ANES) 2- Drug form: l 17:52: INJ, ONCE, Stop date: 05/26/20 11:52:00 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 propofol 2019-06 No Route: IV, Mem oria (ANES) 2- Drug form: l 17:52: INJ, ONCE, Stop date: 05/26/20 11:52:00 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 rocuronium 2019-06 No Route: IV, Keerthi emoria (ANES) 2- Drug form: l 17:52: INJ, ONCE, Stop date: 05/26/20 11:52:00 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 ceFAZolin 2019-06 No Route: IV, Me moria (ANES) 2-03 Drug form: l 17:52: INJ, ONCE, Stop date: 05/26/20 11:52:00 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 norepinephr 2019-06 No Route: IV, Memoria ine (ANES) 2- Drug form: l 17:52: INJ, ONCE, Stop date: 05/26/20 11:52:00 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 fentaNYL 2019-06 No Route: IV, Mem oria (ANES) 2 Drug form: l 17:52: INJ, ONCE, Stop date: 05/26/20 11:52:00 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 lidocaine 2019-06 No Route: IV, Me moria (ANES) 2 Drug form: l 17:52: INJ, ONCE, Stop date: 05/26/20 11:52:00 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 propofol 2019-06 No Route: IV, Mem oria (ANES) 2 Drug form: l 17:52: INJ, ONCE, Stop date: 05/26/20 11:52:00 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 rocuronium 2019-06 No Route: IV, M emoria (ANES) 2 Drug form: l 17:52: INJ, ONCE, Stop date: 05/26/20 11:52:00 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 ceFAZolin 2019-06 No Route: IV, Me moria (ANES) 2 Drug form: l 17:52: INJ, ONCE, Stop date: 05/26/20 11:52:00 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 norepinephr 2019-06 No Route: IV, Memoria ine (ANES) 07-27 Drug form: l 17:52: INJ, ONCE, Stop date: 05/26/20 11:52:00 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 vancomycin 2019-06 No Route: IV, M emoria (ANES) 1000 07-27 Drug form: l mg 16:50: INJ, Start date: 05/26/20 10:50:00 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, Stop date: 05/26/20 11:50:00 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 Sodium 2019-06 No Route: IV, Memor ia Chloride 2- Total l 0.9% IV 16:50: Volume: [place] (ANES) 500 00 500, Start mL date: 05/26/20 10:50:00 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, Stop date: 05/26/20 11:50:00 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 vancomycin 2019-06 No Route: IV, M emoria (ANES) 1000 07-27 Drug form: l mg 16:50: INJ, Start date: 05/26/20 10:50:00 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, Stop date: 05/26/20 11:50:00 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 Sodium 2019-06 No Route: IV, Memor ia Chloride 2-03 Total l 0.9% IV 16:50: Volume: [place] (ANES) 500 00 500, Start mL date: 05/26/20 10:50:00 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, Stop date: 05/26/20 11:50:00 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 vancomycin 2019-06 No Route: IV, Keerthi emoria (ANES) 1000 07-27 Drug form: l mg 16:50: INJ, Start [place] 00 date: 05/26/20 10:50:00 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, Stop date: 05/26/20 11:50:00 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 Sodium 2019-06 No Route: IV, Memor ia Chloride 2-03 Total l 0.9% IV 16:50: Volume: [place] (ANES) 500 00 500, Start mL date: 05/26/20 10:50:00 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, Stop date: 05/26/20 11:50:00 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 vancomycin 2019-06 No Route: IV, Keerthi emoria (ANES) 1000 07-27 Drug form: l mg 16:50: INJ, Start [place] 00 date: 05/26/20 10:50:00 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, Stop date: 05/26/20 11:50:00 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 Sodium 2019-06 No Route: IV, Memor ia Chloride 2-03 Total l 0.9% IV 16:50: Volume: [place] (ANES) 500 00 500, Start mL date: 05/26/20 10:50:00 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, Stop date: 05/26/20 11:50:00 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 Calcium 2019-06 No 1,000 mL, Memor ia Chloride 2-03 Rate: 75 l 0.0014 15:44: ml/hr, [place] MEQ/ML / 00 Infuse Potassium over: 13.3 Chloride hr, Route: 0.004 IV, Dosing MEQ/ML / Weight Sodium 66.818 kg, Chloride Total 0.103 Volume: MEQ/ML / 1,000, Sodium Start Lactate date: 0.028 05/26/20 MEQ/ML 9:44:00 Injectable 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, Solution Duration: 30 day, Stop date: 06/25/20 9:43:00 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, 1.74, m2 Sodium 2019-06 No 500 mL, Memoria Chloride 2-03 Rate: 75 l 0.9% IV 500 15:44: ml/hr, Herm vin mL 00 Infuse over: 6.7 hr, Route: IV, Dosing Weight 66.818 kg, Total Volume: 500, Start date: 05/26/20 9:44:00 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, Duration: 30 day, Stop date: 06/25/20 9:43:00 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, 1.74, m2 Calcium 2020-1 No 1,000 mL, Memor ia Chloride 2-03 Rate: 75 l 0.0014 15:44: ml/hr, [place] MEQ/ML / 00 Infuse Potassium over: 13.3 Chloride hr, Route: 0.004 IV, Dosing MEQ/ML / Weight Sodium 66.818 kg, Chloride Total 0.103 Volume: MEQ/ML / 1,000, Sodium Start Lactate date: 0.028 20 MEQ/ML 9:44:00 Injectable 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, Solution Duration: 30 day, Stop date: 06/25/20 9:43:00 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, 1.74, m2 Sodium 2019-06 No 500 mL, Memoria Chloride 2-03 Rate: 75 l 0.9% IV 500 15:44: ml/hr, Herm vin mL 00 Infuse over: 6.7 hr, Route: IV, Dosing Weight 66.818 kg, Total Volume: 500, Start date: 05/26/20 9:44:00 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, Duration: 30 day, Stop date: 06/25/20 9:43:00 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, 1.74, m2 Calcium 2019- No 1,000 mL, Memor ia Chloride 2-03 Rate: 75 l 0.0014 15:44: ml/hr, [place] MEQ/ML / 00 Infuse Potassium over: 13.3 Chloride hr, Route: 0.004 IV, Dosing MEQ/ML / Weight Sodium 66.818 kg, Chloride Total 0.103 Volume: MEQ/ML / 1,000, Sodium Start Lactate date: 0.028 20 MEQ/ML 9:44:00 Injectable 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, Solution Duration: 30 day, Stop date: 06/25/20 9:43:00 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, 1.74, m2 Sodium 2020- No 500 mL, Memoria Chloride 2-03 Rate: 75 l 0.9% IV 500 15:44: ml/hr, Herm vin mL 00 Infuse over: 6.7 hr, Route: IV, Dosing Weight 66.818 kg, Total Volume: 500, Start date: 05/26/20 9:44:00 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, Duration: 30 day, Stop date: 06/25/20 9:43:00 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, 1.74, m2 Calcium 2019- No 1,000 mL, Memor ia Chloride 2-03 Rate: 75 l 0.0014 15:44: ml/hr, [place] MEQ/ML / 00 Infuse Potassium over: 13.3 Chloride hr, Route: 0.004 IV, Dosing MEQ/ML / Weight Sodium 66.818 kg, Chloride Total 0.103 Volume: MEQ/ML / 1,000, Sodium Start Lactate date: 0.028 05/26/20 MEQ/ML 9:44:00 Injectable 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, Solution Duration: 30 day, Stop date: 06/25/20 9:43:00 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, 1.74, m2 Sodium 2019- No 500 mL, Memoria Chloride 2-03 Rate: 75 l 0.9% IV 500 15:44: ml/hr, Herm vin mL 00 Infuse over: 6.7 hr, Route: IV, Dosing Weight 66.818 kg, Total Volume: 500, Start date: 05/26/20 9:44:00 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, Duration: 30 day, Stop date: 06/25/20 9:43:00 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, 1.74, m2 Vancomycin 2019-06 No 2000 mg: [...] Product Wasted: ___ mg Vancomycin 2019- No 2000 mg: Me moria 2-02 infuse l 21:00: over 2.5 [place] 00 hours For adult patients only: Round to nearest 250 mg per Medical Staff approval MEDICATION WASTE Product Size: 1000 mg Product Wasted: ___ mg Ancef + 2020- No Notes: Memoria sterile 2-02 (Same As: l water 20 mL 21:00: Ancef, Herm ivn 00 Kefzol) MEDICATION WASTE Product Size: 1000 mg Product Wasted: ___ mg Vancomycin 2020- No 2000 mg: Me moria 2-02 infuse l 21:00: over 2.5 [place] 00 hours For adult patients only: Round to nearest 250 mg per Medical Staff approval MEDICATION WASTE Product Size: 1000 mg Product Wasted: ___ mg Ancef + 2019- No Notes: Memoria sterile 2 (Same As: l water 20 mL 21:00: Ancef, Herm vin 00 Kefzol) MEDICATION WASTE Product Size: 1000 mg Product Wasted: ___ mg Vancomycin 2019- No 2000 mg: Me moria 2- infuse l 21:00: over 2.5 [place] 00 hours For adult patients only: Round to nearest 250 mg per Medical Staff approval MEDICATION WASTE Product Size: 1000 mg Product Wasted: ___ mg Ancef + 2019-06 No Notes: Memoria sterile 07-26 (Same As: l water 20 mL 21:00: Ancef, Herm vin Kefzol) MEDICATION WASTE Product Size: 1000 mg Product Wasted: ___ mg Sodium 2019-06 Yes 500 mL, Memoria Chloride 07-17 Infuse l 0.9% 21:27: Over: 20 [place] (Bolus) IV 00 minutes, Route: IV, ONCE, Dosing Weight 66.818 kg, Start date: 05/17/20 15:27:00 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, Stop date: 05/17/20 15:27:00 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 Hydralazine 2019-06 No 10 mg, Anthony litzy 07-17 Route: l 21:27: IVP, [place] 00 Q20Min, Dosing Weight 66.818, kg, PRN Elevated BP, Start date: 05/17/20 15:27:00 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, Duration: 2 doses or times, Stop date: Limited # of times Acetaminoph 2019-06 No 1,000 mg, M emoria en 07-17 Route: PO, l 21:27: Drug form: [place] 00 TAB, ONCE, Dosing Weight 66.818, kg, PRN Pain Score 1-3, Start date: 05/17/20 15:27:00 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 Oxycodone 2019- No 5 mg, Memoria Hydrochlori -24 Route: PO, l de 5 MG 21:27: Drug form: Herm vin Oral Tablet 00 TAB, Q4H, Dosing Weight 66.818, kg, PRN Pain Score 4-6, Start date: 05/17/20 15:27:00 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, Duration: 30 day, Stop date: 06/16/20 15:26:00 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 Morphine 2019- No 2 mg, Memoria 24 Route: l 21:27: IVP, [place] 00 Q5Min, Dosing Weight 66.818, kg, PRN Pain Score 4-6, Start date: 05/17/20 15:27:00 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, Duration: 5 doses or times, Stop date: Limited # of times Fentanyl 2019- No 25 Memoria 1-24 microgram, l 21:27: Route: [place] 00 IVP, Q5Min, Dosing Weight 66.818, kg, PRN Pain Score 4-6, Priority: Routine, Start date: 05/17/20 15:27:00 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, Duration: 4 doses or times, Stop date: Limited # of times Hydromorpho 2019- No 0.5 mg, Mem oria ne 07-17 Route: l 21:27: IVP, [place] 00 Q5Min, Dosing Weight 66.818, kg, PRN Pain Score 7-10, Start date: 05/17/20 15:27:00 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, Duration: 4 doses or times, Stop date: Limited # of times Flumazenil 2019- No 0.2 mg, Anthony litzy 24 Route: l 21:27: IVP, PRN, [place] 00 Dosing Weight 66.818, kg, PRN Benzodiaze pine Reversal, Initial dose, Start date: 05/17/20 15:27:00 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, Duration: 30 day, Stop date: 06/16/20 15:26:00 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 Naloxone 2019- No 0.4 mg, Memori a 24 Route: l 21:27: IVP, [place] 00 Q2MIN, Dosing Weight 66.818, kg, PRN Narcotic Reversal, Start date: 05/17/20 15:27:00 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, Duration: 8 doses or times, Stop date: Limited # of times Ephedrine 2019-06 No 5 mg, Memoria 07-17 Route: l 21:27: IVP, [place] 00 Q5Min, Dosing Weight 66.818, kg, PRN Low Blood Pressure, Start date: 05/17/20 15:27:00 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, Duration: 30 day, Stop date: 06/16/20 15:26:00 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 Albuterol 2019-06 No 2.49 mg, Anthony litzy 0.83 MG/ML 07-17 Route: l Inhalant 21:27: NEB, [place] Solution 00 Q20Min, Dosing Weight 66.818, kg, PRN Wheezing, Priority: STAT, Start date: 05/17/20 15:27:00 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, Duration: 30 day, Stop date: 06/16/20 15:26:00 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 Diphenhydra 2019-06 No 12.5 mg, Me moria mine 07-17 Route: l 21:27: IVP, Drug form: INJ, Q6H, Dosing Weight 66.818, kg, PRN Itching, Start date: 05/17/20 15:27:00 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, Duration: 30 day, Stop date: 06/16/20 15:26:00 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 Ondansetron 2019-06 No 4 mg, Memor ia 07-17 Route: l 21:27: IVP, ONCE, [place] 00 Dosing Weight 66.818, kg, PRN Nausea & Vomiting, Start date: 05/17/20 15:27:00 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 Sodium 2019-06 Yes 500 mL, Memoria Chloride 07-17 Infuse l 0.9% 21:27: Over: 20 [place] (Bolus) IV 00 minutes, Route: IV, ONCE, Dosing Weight 66.818 kg, Start date: 05/17/20 15:27:00 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, Stop date: 05/17/20 15:27:00 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 Hydralazine 2019-06 No 10 mg, Anthony litzy 07-17 Route: l 21:27: IVP, [place] 00 Q20Min, Dosing Weight 66.818, kg, PRN Elevated BP, Start date: 05/17/20 15:27:00 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, Duration: 2 doses or times, Stop date: Limited # of times Acetaminoph 2019-06 No 1,000 mg, M emoria en 07-17 Route: PO, l 21:27: Drug form: [place] 00 TAB, ONCE, Dosing Weight 66.818, kg, PRN Pain Score 1-3, Start date: 05/17/20 15:27:00 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 Oxycodone 2019- No 5 mg, Memoria Hydrochlori 24 Route: PO, l de 5 MG 21:27: Drug form: Herm vin Oral Tablet 00 TAB, Q4H, Dosing Weight 66.818, kg, PRN Pain Score 4-6, Start date: 05/17/20 15:27:00 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, Duration: 30 day, Stop date: 06/16/20 15:26:00 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 Morphine 2019- No 2 mg, Memoria 07-17 Route: l 21:27: IVP, [place] 00 Q5Min, Dosing Weight 66.818, kg, PRN Pain Score 4-6, Start date: 05/17/20 15:27:00 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, Duration: 5 doses or times, Stop date: Limited # of times Fentanyl 2019- No 25 Memoria 24 microgram, l 21:27: Route: [place] 00 IVP, Q5Min, Dosing Weight 66.818, kg, PRN Pain Score 4-6, Priority: Routine, Start date: 05/17/20 15:27:00 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, Duration: 4 doses or times, Stop date: Limited # of times Hydromorpho 2019- No 0.5 mg, Mem oria ne 07-17 Route: l 21:27: IVP, [place] 00 Q5Min, Dosing Weight 66.818, kg, PRN Pain Score 7-10, Start date: 05/17/20 15:27:00 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, Duration: 4 doses or times, Stop date: Limited # of times Flumazenil 2019- No 0.2 mg, Anthony litzy 24 Route: l 21:27: IVP, PRN, [place] 00 Dosing Weight 66.818, kg, PRN Benzodiaze pine Reversal, Initial dose, Start date: 05/17/20 15:27:00 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, Duration: 30 day, Stop date: 06/16/20 15:26:00 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 Naloxone 2019- No 0.4 mg, Memori a 1-24 Route: l 21:27: IVP, [place] 00 Q2MIN, Dosing Weight 66.818, kg, PRN Narcotic Reversal, Start date: 05/17/20 15:27:00 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, Duration: 8 doses or times, Stop date: Limited # of times Ephedrine 2019- No 5 mg, Memoria 24 Route: l 21:27: IVP, [place] 00 Q5Min, Dosing Weight 66.818, kg, PRN Low Blood Pressure, Start date: 05/17/20 15:27:00 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, Duration: 30 day, Stop date: 06/16/20 15:26:00 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 Albuterol 2019- No 2.49 mg, Anthony litzy 0.83 MG/ML 24 Route: l Inhalant 21:27: NEB, [place] Solution 00 Q20Min, Dosing Weight 66.818, kg, PRN Wheezing, Priority: STAT, Start date: 05/17/20 15:27:00 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, Duration: 30 day, Stop date: 06/16/20 15:26:00 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 Diphenhydra 2019-06 No 12.5 mg, Me moria mine 07-17 Route: l 21:27: IVP, Drug form: INJ, Q6H, Dosing Weight 66.818, kg, PRN Itching, Start date: 05/17/20 15:27:00 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, Duration: 30 day, Stop date: 06/16/20 15:26:00 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 Ondansetron 2019- No 4 mg, Memor ia 07-17 Route: l 21:27: IVP, ONCE, [place] 00 Dosing Weight 66.818, kg, PRN Nausea & Vomiting, Start date: 05/17/20 15:27:00 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 Sodium 2019- Yes 500 mL, Memoria Chloride 24 Infuse l 0.9% 21:27: Over: 20 [place] (Bolus) IV 00 minutes, Route: IV, ONCE, Dosing Weight 66.818 kg, Start date: 05/17/20 15:27:00 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, Stop date: 05/17/20 15:27:00 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 Hydralazine 2019- No 10 mg, Anthony litzy 24 Route: l 21:27: IVP, [place] 00 Q20Min, Dosing Weight 66.818, kg, PRN Elevated BP, Start date: 05/17/20 15:27:00 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, Duration: 2 doses or times, Stop date: Limited # of times Acetaminoph 2019- No 1,000 mg, M emoria en 24 Route: PO, l 21:27: Drug form: [place] 00 TAB, ONCE, Dosing Weight 66.818, kg, PRN Pain Score 1-3, Start date: 05/17/20 15:27:00 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 Oxycodone 2019- No 5 mg, Memoria Hydrochlori 24 Route: PO, l de 5 MG 21:27: Drug form: Herm vin Oral Tablet 00 TAB, Q4H, Dosing Weight 66.818, kg, PRN Pain Score 4-6, Start date: 05/17/20 15:27:00 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, Duration: 30 day, Stop date: 06/16/20 15:26:00 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 Morphine 2019- No 2 mg, Memoria 24 Route: l 21:27: IVP, [place] 00 Q5Min, Dosing Weight 66.818, kg, PRN Pain Score 4-6, Start date: 05/17/20 15:27:00 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, Duration: 5 doses or times, Stop date: Limited # of times Fentanyl 2019-06 No 25 Memoria 24 microgram, l 21:27: Route: [place] 00 IVP, Q5Min, Dosing Weight 66.818, kg, PRN Pain Score 4-6, Priority: Routine, Start date: 05/17/20 15:27:00 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, Duration: 4 doses or times, Stop date: Limited # of times Hydromorpho 2019-06 No 0.5 mg, Mem oria ne 24 Route: l 21:27: IVP, [place] 00 Q5Min, Dosing Weight 66.818, kg, PRN Pain Score 7-10, Start date: 05/17/20 15:27:00 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, Duration: 4 doses or times, Stop date: Limited # of times Flumazenil 2019-06 No 0.2 mg, Anthony litzy 24 Route: l 21:27: IVP, PRN, [place] 00 Dosing Weight 66.818, kg, PRN Benzodiaze pine Reversal, Initial dose, Start date: 05/17/20 15:27:00 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, Duration: 30 day, Stop date: 06/16/20 15:26:00 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 Naloxone 2019-06 No 0.4 mg, Memori a 07-17 Route: l 21:27: IVP, [place] 00 Q2MIN, Dosing Weight 66.818, kg, PRN Narcotic Reversal, Start date: 05/17/20 15:27:00 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, Duration: 8 doses or times, Stop date: Limited # of times Ephedrine 2019-06 No 5 mg, Memoria 07-17 Route: l 21:27: IVP, [place] 00 Q5Min, Dosing Weight 66.818, kg, PRN Low Blood Pressure, Start date: 05/17/20 15:27:00 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, Duration: 30 day, Stop date: 06/16/20 15:26:00 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 Albuterol 2019-06 No 2.49 mg, Anthony litzy 0.83 MG/ML 07-17 Route: l Inhalant 21:27: NEB, [place] Solution 00 Q20Min, Dosing Weight 66.818, kg, PRN Wheezing, Priority: STAT, Start date: 05/17/20 15:27:00 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, Duration: 30 day, Stop date: 06/16/20 15:26:00 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 Diphenhydra 2019-06 No 12.5 mg, Me moria mine 07-17 Route: l 21:27: IVP, Drug form: INJ, Q6H, Dosing Weight 66.818, kg, PRN Itching, Start date: 05/17/20 15:27:00 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, Duration: 30 day, Stop date: 06/16/20 15:26:00 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 Ondansetron 2019-06 No 4 mg, Memor ia 07-17 Route: l 21:27: IVP, ONCE, [place] Dosing Weight 66.818, kg, PRN Nausea & Vomiting, Start date: 05/17/20 15:27:00 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 Sodium 2019-06 Yes 500 mL, Memoria Chloride 24 Infuse l 0.9% 21:27: Over: 20 [place] (Bolus) IV 00 minutes, Route: IV, ONCE, Dosing Weight 66.818 kg, Start date: 05/17/20 15:27:00 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, Stop date: 05/17/20 15:27:00 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 Hydralazine 2019- No 10 mg, Anthony litzy 07-17 Route: l 21:27: IVP, [place] 00 Q20Min, Dosing Weight 66.818, kg, PRN Elevated BP, Start date: 05/17/20 15:27:00 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, Duration: 2 doses or times, Stop date: Limited # of times Acetaminoph 2019-06 No 1,000 mg, M emoria en 07-17 Route: PO, l 21:27: Drug form: [place] 00 TAB, ONCE, Dosing Weight 66.818, kg, PRN Pain Score 1-3, Start date: 05/17/20 15:27:00 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 Oxycodone 2019-06 No 5 mg, Memoria Hydrochlori 07-17 Route: PO, l de 5 MG 21:27: Drug form: Herm vin Oral Tablet 00 TAB, Q4H, Dosing Weight 66.818, kg, PRN Pain Score 4-6, Start date: 05/17/20 15:27:00 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, Duration: 30 day, Stop date: 06/16/20 15:26:00 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 Morphine 2019- No 2 mg, Memoria 07-17 Route: l 21:27: IVP, [place] 00 Q5Min, Dosing Weight 66.818, kg, PRN Pain Score 4-6, Start date: 05/17/20 15:27:00 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, Duration: 5 doses or times, Stop date: Limited # of times Fentanyl 2019-06 No 25 Memoria 1-24 microgram, l 21:27: Route: [place] 00 IVP, Q5Min, Dosing Weight 66.818, kg, PRN Pain Score 4-6, Priority: Routine, Start date: 05/17/20 15:27:00 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, Duration: 4 doses or times, Stop date: Limited # of times Hydromorpho 2019-06 No 0.5 mg, Mem oria ne 07-17 Route: l 21:27: IVP, [place] 00 Q5Min, Dosing Weight 66.818, kg, PRN Pain Score 7-10, Start date: 05/17/20 15:27:00 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, Duration: 4 doses or times, Stop date: Limited # of times Flumazenil 2019-06 No 0.2 mg, Anthony litzy 07-17 Route: l 21:27: IVP, PRN, [place] Dosing Weight 66.818, kg, PRN Benzodiaze pine Reversal, Initial dose, Start date: 05/17/20 15:27:00 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, Duration: 30 day, Stop date: 06/16/20 15:26:00 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 Naloxone 2019-06 No 0.4 mg, Memori a 07-17 Route: l 21:27: IVP, [place] 00 Q2MIN, Dosing Weight 66.818, kg, PRN Narcotic Reversal, Start date: 05/17/20 15:27:00 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, Duration: 8 doses or times, Stop date: Limited # of times Ephedrine 2019-06 No 5 mg, Memoria 07-17 Route: l 21:27: IVP, [place] 00 Q5Min, Dosing Weight 66.818, kg, PRN Low Blood Pressure, Start date: 05/17/20 15:27:00 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, Duration: 30 day, Stop date: 06/16/20 15:26:00 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 Albuterol 2019-06 No 2.49 mg, Anthony litzy 0.83 MG/ML 07-17 Route: l Inhalant 21:27: NEB, [place] Solution 00 Q20Min, Dosing Weight 66.818, kg, PRN Wheezing, Priority: STAT, Start date: 05/17/20 15:27:00 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, Duration: 30 day, Stop date: 06/16/20 15:26:00 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 Diphenhydra 2019-06 No 12.5 mg, Me moria mine 07-17 Route: l 21:27: IVP, Drug form: INJ, Q6H, Dosing Weight 66.818, kg, PRN Itching, Start date: 05/17/20 15:27:00 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, Duration: 30 day, Stop date: 06/16/20 15:26:00 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 Ondansetron 2019-06 No 4 mg, Memor ia 07-17 Route: l 21:27: IVP, ONCE, [place] 00 Dosing Weight 66.818, kg, PRN Nausea & Vomiting, Start date: 05/17/20 15:27:00 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 fentaNYL 2019-06 No Route: IV, Mem oria (ANES) 1-24 Drug form: l 18:18: INJ, ONCE, [place] 00 Stop date: 05/17/20 12:18:00 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 propofol 2019-06 No Route: IV, Mem oria (ANES) 07-17 Drug form: l 18:18: INJ, ONCE, [place] 00 Stop date: 05/17/20 12:18:00 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 fentaNYL 2019-06 No Route: IV, Mem oria (ANES) 07-17 Drug form: l 18:18: INJ, ONCE, Stop date: 05/17/20 12:18:00 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 propofol 2019-06 No Route: IV, Mem oria (ANES) 07-17 Drug form: l 18:18: INJ, ONCE, [place] 00 Stop date: 05/17/20 12:18:00 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 fentaNYL 2019-06 No Route: IV, Mem oria (ANES) 07-17 Drug form: l 18:18: INJ, ONCE, Stop date: 05/17/20 12:18:00 NEWSCAST DIRECTOR propofol 2019-06 No Route: IV, Mem oria (ANES) 07-17 Drug form: l 18:18: INJ, ONCE, Stop date: 05/17/20 12:18:00 NEWSCAST DIRECTOR fentaNYL 2019-06 No Route: IV, Mem oria (ANES) 07-17 Drug form: l 18:18: INJ, ONCE, Stop date: 05/17/20 12:18:00 NEWSCAST DIRECTOR propofol 2019-06 No Route: IV, Mem oria (ANES) 07-17 Drug form: l 18:18: INJ, ONCE, Stop date: 05/17/20 12:18:00 NEWSCAST DIRECTOR ceFAZolin 2019-06 No Route: IV, Me moria (ANES) 07-17 Drug form: l 18:08: INJ, ONCE, Stop date: 05/17/20 12:08:00 NEWSCAST DIRECTOR Sodium 2019-06 No Route: IV, Memor ia Chloride 24 Total l 0.9% IV 18:08: Volume: [place] (ANES) 500 00 500, Start mL date: 05/17/20 12:08:00 NEWSCAST DIRECTOR, Stop date: 05/17/20 13:08:00 NEWSCAST DIRECTOR ceFAZolin 2019-06 No Route: IV, Me moria (ANES) 1-24 Drug form: l 18:08: INJ, ONCE, [place] 00 Stop date: 05/17/20 12:08:00 NEWSCAST DIRECTOR Sodium 2020- No Route: IV, Memor ia Chloride 1-24 Total l 0.9% IV 18:08: Volume: [place] (ANES) 500 00 500, Start mL date: 05/17/20 12:08:00 NEWSCAST DIRECTOR, Stop date: 05/17/20 13:08:00 NEWSCAST DIRECTOR ceFAZolin 2020- No Route: IV, Me moria (ANES) 1-24 Drug form: l 18:08: INJ, ONCE, [place] Stop date: 05/17/20 12:08:00 NEWSCAST DIRECTOR Sodium 2020- No Route: IV, Memor ia Chloride 1-24 Total l 0.9% IV 18:08: Volume: [place] (ANES) 500 00 500, Start mL date: 05/17/20 12:08:00 NEWSCAST DIRECTOR, Stop date: 05/17/20 13:08:00 NEWSCAST DIRECTOR ceFAZolin 2020 No Route: IV, Me moria (ANES) 1-24 Drug form: l 18:08: INJ, ONCE, [place] Stop date: 05/17/20 12:08:00 NEWSCAST DIRECTOR Sodium 2020- No Route: IV, Memor ia Chloride 1-24 Total l 0.9% IV 18:08: Volume: [place] (ANES) 500 00 500, Start mL date: 05/17/20 12:08:00 NEWSCAST DIRECTOR, Stop date: 05/17/20 13:08:00 NEWSCAST DIRECTOR midazolam 2020- No Route: IV, Me moria (ANES) 1-24 Drug form: l 18:03: SOLN, Talon 00 ONCE, Stop date: 05/17/20 12:03:00 [employer] DIRECT[employer] midazolam 2020- No Route: IV, Me moria (ANES) 1-24 Drug form: l 18:03: SOLN, Talon 00 ONCE, Stop date: 05/17/20 12:03:00 [employer] DIRECT[employer] midazolam 2020- No Route: IV, Me moria (ANES) 1-24 Drug form: l 18:03: SOLN, Talon 00 ONCE, Stop date: 05/17/20 12:03:00 [employer] DIRECT[employer] midazolam 2020- No Route: IV, Me moria (ANES) 07-17 Drug form: l 18:03: SOLN, 00 ONCE, Stop date: 05/17/20 12:03:00 [employer] DIRECT[employer] vancomycin 2019-06 No Route: IV, Keerthi perezria (ANES) 1000 07-17 Drug form: l mg 17:46: INJ, Start date: 05/17/20 11:46:00 [employer] DIRECTOR, Stop date: 05/17/20 12:46:00 [employer] DIRECT[employer] vancomycin 2019-06 No Route: IV, Keerthi perezria (ANES) 1000 07-17 Drug form: l mg 17:46: INJ, Start date: 05/17/20 11:46:00 [employer] DIRECTOR, Stop date: 05/17/20 12:46:00 [employer] DIRECT[employer] vancomycin 2019-06 No Route: IV, Keerthi perezria (ANES) 1000 07-17 Drug form: l mg 17:46: INJ, Start date: 05/17/20 11:46:00 [employer]SC[employer] DIRECTOR, Stop date: 05/17/20 12:46:00 [employer] DIRECT[employer] vancomycin 2019-06 No Route: IV, Keerthi perezria (ANES) 1000 07-17 Drug form: l mg 17:46: INJ, Start date: 05/17/20 11:46:00 [employer] DIRECTOR, Stop date: 05/17/20 12:46:00 [employer] DIRECTOR Calcium 2019-06 No 1,000 mL, Memor ia Chloride 07-17 Rate: 75 l 0.0014 16:07: ml/hr, MEQ/ML / 00 Infuse Potassium over: 13.3 Chloride hr, Route: 0.004 IV, Dosing MEQ/ML / Weight Sodium 66.818 kg, Chloride Total 0.103 Volume: MEQ/ML / 1,000, Sodium Start Lactate date: 0.028 05/17/20 MEQ/ML 10:07:00 Injectable [employer] DIRECT[employer], Solution Duration: 30 day, Stop date: 06/16/20 10:06:00 [employer] DIRECTOR, 1.74, m2 Calcium 2019-06 No 1,000 mL, Memor ia Chloride 07-17 Rate: 75 l 0.0014 16:07: ml/hr, MEQ/ML / 00 Infuse Potassium over: 13.3 Chloride hr, Route: 0.004 IV, Dosing MEQ/ML / Weight Sodium 66.818 kg, Chloride Total 0.103 Volume: MEQ/ML / 1,000, Sodium Start Lactate date: 0.028 05/17/20 MEQ/ML 10:07:00 Injectable [employer] DIRECT[employer], Solution Duration: 30 day, Stop date: 06/16/20 10:06:00 [employer]SC[employer] DIRECTOR, 1.74, m2 Calcium 2019-06 No 1,000 mL, Memor ia Chloride 1-24 Rate: 75 l 0.0014 16:07: ml/hr, Talon MEQ/ML / 00 Infuse Potassium over: 13.3 Chloride hr, Route: 0.004 IV, Dosing MEQ/ML / Weight Sodium 66.818 kg, Chloride Total 0.103 Volume: MEQ/ML / 1,000, Sodium Start Lactate date: 0.028 05/17/20 MEQ/ML 10:07:00 Injectable [employer] DIRECTOR, Solution Duration: 30 day, Stop date: 06/16/20 10:06:00 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, 1.74, m2 Calcium 2019-06 No 1,000 mL, Memor ia Chloride 1-24 Rate: 75 l 0.0014 16:07: ml/hr, [place] MEQ/ML / 00 Infuse Potassium over: 13.3 Chloride hr, Route: 0.004 IV, Dosing MEQ/ML / Weight Sodium 66.818 kg, Chloride Total 0.103 Volume: MEQ/ML / 1,000, Sodium Start Lactate date: 0.028 05/17/20 MEQ/ML 10:07:00 Injectable NEWSCAST DIRECTOR, Solution Duration: 30 day, Stop date: 06/16/20 10:06:00 NEWSCAST DIRECTOR, 1.74, m2 Vancomycin 2019-06 No 1 gm, Memori a 07-16 Route: l 23:00: IVPB, Drug form: INJ, PRE OP, Dosing Weight 63.636, kg, Start date: 05/16/20 17:00:00 NEWSCAST DIRECTOR, Duration: 1 day, Stop date: 05/17/20 16:59:00 NEWSCAST DIRECTOR, ABX Indication : Surgical Prophylaxi s Ancef 2019-06 No 2 gm, Memoria 07-16 Route: l 23:00: IVPB, PRE [place] 00 OP, Dosing Weight 63.636, kg, Start date: 05/16/20 17:00:00 NEWSCAST DIRECTOR, Duration: 1 day, Stop date: 05/17/20 16:59:00 NEWSCAST DIRECTOR, ABX Indication : Surgical Prophylaxi s Vancomycin 2020-1 No 1 gm, Memori a 07-16 Route: l 23:00: IVPB, Drug [place] 00 form: INJ, PRE OP, Dosing Weight 63.636, kg, Start date: 05/16/20 17:00:00 NEWSCAST DIRECTOR, Duration: 1 day, Stop date: 05/17/20 16:59:00 NEWSCAST DIRECTOR, ABX Indication : Surgical Prophylaxi s Ancef 2020-1 No 2 gm, Memoria 07-16 Route: l 23:00: IVPB, PRE [place] 00 OP, Dosing Weight 63.636, kg, Start date: 05/16/20 17:00:00 NEWSCAST DIRECTOR, Duration: 1 day, Stop date: 05/17/20 16:59:00 NEWSCAST DIRECTOR, ABX Indication : Surgical Prophylaxi s Vancomycin 2019-1 No 1 gm, Memori a 07-16 Route: l 23:00: IVPB, Drug [place] 00 form: INJ, PRE OP, Dosing Weight 63.636, kg, Start date: 05/16/20 17:00:00 NEWSCAST DIRECTOR, Duration: 1 day, Stop date: 05/17/20 16:59:00 NEWSCAST DIRECTOR, ABX Indication : Surgical Prophylaxi s Ancef 2020-1 No 2 gm, Memoria 07-16 Route: l 23:00: IVPB, PRE [place] 00 OP, Dosing Weight 63.636, kg, Start date: 05/16/20 17:00:00 NEWSCAST DIRECTOR, Duration: 1 day, Stop date: 05/17/20 16:59:00 NEWSCAST DIRECTOR, ABX Indication : Surgical Prophylaxi s Vancomycin 2020-1 No 1 gm, Memori a 07-16 Route: l 23:00: IVPB, Drug [place] 00 form: INJ, PRE OP, Dosing Weight 63.636, kg, Start date: 05/16/20 17:00:00 NEWSCAST DIRECTOR, Duration: 1 day, Stop date: 05/17/20 16:59:00 NEWSCAST DIRECTOR, ABX Indication : Surgical Prophylaxi s Ancef 2020-1 No 2 gm, Memoria 07-16 Route: l 23:00: IVPB, PRE [place] 00 OP, Dosing Weight 63.636, kg, Start date: 05/16/20 17:00:00 NEWSCAST DIRECTOR, Duration: 1 day, Stop date: 05/17/20 16:59:00 NEWSCAST DIRECTOR, ABX Indication : Surgical Prophylaxi s metoprolol 2019-06 No 1mg tartrate 25 0-21 mg tablet 00:00: 00 atorvastati 2019-06 No 1mg n 40 mg 0-21 tablet 00:00: 00 allopurinol 2019-06 No 1mg 100 mg 0-21 tablet 00:00: 00 hydroxyzine 2019-06 No 1mg HCl 25 mg 0-21 tablet 00:00: 00 levothyroxi 2019-06 No 1mcg ne 50 mcg 0-21 tablet 00:00: 00 liothyronin 2019-06 No 1mcg e 5 mcg 0-21 tablet 00:00: 00 cyanocobala 2019-06 No 1mcg/mL min (vit 0-21 B-12) 1,000 00:00: mcg/mL 00 injection solution metoprolol 2019-06 No 1mg tartrate 25 0-21 mg tablet 00:00: 00 atorvastati 2019-06 No 1mg n 40 mg 0-21 tablet 00:00: 00 allopurinol 2019-06 No 1mg 100 mg 0-21 tablet 00:00: 00 hydroxyzine 2019-06 No 1mg HCl 25 mg 0-21 tablet 00:00: 00 levothyroxi 2019-06 No 1mcg ne 50 mcg 0-21 tablet 00:00: 00 liothyronin 2019-06 No 1mcg e 5 mcg 0-21 tablet 00:00: 00 cyanocobala 2019-06 No 1mcg/mL min (vit 0-21 B-12) 1,000 00:00: mcg/mL 00 injection solution Clonidine 2019-06 Yes 0.3 mg = 1 Me moria Hydrochlori 0-16 tab, PO, l de 0.3 MG 18:03: TID, 0 [place] n Oral Tablet 00 Refill(s) ferrous 2019-06 Yes 325 mg = 1 Anthony litzy sulfate 325 0-16 tab, PO, l mg oral 18:03: Daily, # Keenan n enteric 00 30 tab, 0 coated Refill(s), tablet Pharmacy: [facility] #[id number], 170.18, cm, 04/05/20 21:48:00 CDT, Height, 63.636, [...] 30 tab, 0 coated Refill(s), tablet Pharmacy: [facility] #[id number], 170.18, cm, 04/05/20 21:48:00 CDT, Height, 63.636, [...] 30 tab, 0 coated Refill(s), tablet Pharmacy: [facility] #[id number], 170.18, cm, 04/05/20 21:48:00 CDT, Height, 63.636, [...] 30 tab, 0 coated Refill(s), tablet Pharmacy: [facility] #[id number], 170.18, cm, 04/05/20 21:48:00 CDT, Height, 63.636, kg, 04/05/20 21:48:00 CDT, Weight Nephro-Flash 2019-06 No Notes: Anthony litzy Rx 0-16 (Same as: l 14:00: Nephro-Vit [place] 00 e Rx and Diatx) Give with [...] 0-14 Drug form: l 22:09: INJ, ONCE, [place] 00 Stop date: 04/06/20 17:09:00 CDT ceFAZolin 2019-06 No Route: IV, Me moria (ANES) 0-14 Drug form: l 22:09: INJ, ONCE, Stop date: 04/06/20 17:09:00 CDT ceFAZolin 2020- No Route: IV, Me moria (ANES) 0-14 Drug form: l 22:09: INJ, ONCE, Stop date: 04/06/20 17:09:00 CDT glycopyrrol 2020 No Route: IV, Memoria ate (ANES) 0-14 [...] (ANES) 0-14 Drug form: l 21:50: SOLN, [place] 00 ONCE, Stop date: 04/06/20 16:50:00 CDT glycopyrrol [...] Duration: 30 day, Stop date: 05/06/20 16:25:00 NEWSCAST DIRECTOR, 1.74, m2, 0 normal 2020-1 No 1,000 mL, Memori a saline 0.9% 0-14 Rate: 100 l IV 1,000 mL 21:26: ml/hr, Herm vin 00 Infuse over: 10 hr, Route: IV, Dosing Weight 63.636 kg, Total Volume: 1,000, Start date: 04/06/20 16:26:00 CDT, Duration: 30 day, Stop date: 05/06/20 16:25:00 NEWSCAST DIRECTOR, 1.74, m2, 0 normal 2020- No 1,000 mL, Memori a saline 0.9% 0-14 Rate: 100 l IV 1,000 mL 21:26: ml/hr, Herm vin 00 Infuse over: 10 hr, Route: IV, Dosing Weight 63.636 kg, Total Volume: 1,000, Start date: 04/06/20 16:26:00 CDT, Duration: 30 day, Stop date: 05/06/20 16:25:00 NEWSCAST DIRECTOR, 1.74, m2, 0 normal 2019- No 1,000 mL, Memori a saline 0.9% 0-14 Rate: 100 l IV 1,000 mL 21:26: ml/hr, Herm vin 00 Infuse over: 10 hr, Route: IV, Dosing Weight 63.636 kg, Total Volume: 1,000, Start date: 04/06/20 16:26:00 CDT, Duration: 30 day, Stop date: 05/06/20 16:25:00 NEWSCAST DIRECTOR, 1.74, m2, 0 heparin 2019- No Notes: Memoria 0-14 porcine l 21:00: heparin [place] heparin 2019- No Notes: Memoria 0-14 porcine l 21:00: heparin [place] heparin 2020- No Notes: Memoria 0-14 porcine l 21:00: heparin [place] 00 heparin 2020- No Notes: Memoria 0-14 porcine l 21:00: heparin [place] 00 heparin 2019- No Route: IV, Anthony litzy (ANES) 0-14 Drug form: l 20:08: INJ, ONCE, [place] 00 Stop date: 04/06/20 15:08:00 CDT heparin 2019-06 No Route: IV, Anthony litzy (ANES) 0-14 Drug form: l 20:08: INJ, ONCE, Stop date: 04/06/20 15:08:00 CDT heparin 2020 No Route: IV, Anthony litzy (ANES) 0-14 Drug form: l 20:08: INJ, ONCE, Stop date: 04/06/20 15:08:00 CDT heparin 2020- No Route: IV, Anthony litzy (ANES) 0-14 Drug form: l 20:08: INJ, ONCE, Stop date: 04/06/20 15:08:00 CDT ondansetron 2020 No Route: IV, Memoria (ANES) 0-14 Drug form: l 20:03: INJ, ONCE, Stop date: 04/06/20 15:03:00 CDT ondansetron 2020 No Route: IV, Memoria (ANES) 0-14 Drug form: l 20:03: INJ, ONCE, Stop date: 04/06/20 15:03:00 CDT ondansetron 2020 No Route: IV, Memoria (ANES) 0-14 Drug form: l 20:03: INJ, ONCE, Stop date: 04/06/20 15:03:00 CDT ondansetron 2020 No Route: IV, Memoria (ANES) 0-14 Drug form: l 20:03: INJ, ONCE, Stop date: 04/06/20 15:03:00 CDT rocuronium 2020 No Route: IV, M emoria (ANES) 0-14 Drug form: l 19:53: INJ, ONCE, Stop date: 04/06/20 14:53:00 CDT rocuronium 2020 No Route: IV, M emoria (ANES) 0-14 Drug form: l 19:53: INJ, ONCE, Stop date: 04/06/20 14:53:00 CDT rocuronium 2020- No Route: IV, M emoria (ANES) 0-14 Drug form: l 19:53: INJ, ONCE, Stop date: 04/06/20 14:53:00 CDT rocuronium 2020- No Route: IV, M emoria (ANES) 0-14 Drug form: l 19:53: INJ, ONCE, Stop date: 04/06/20 14:53:00 CDT ePHEDrine 2020 No Route: IV, Me moria (ANES) 0-14 [...] ONCE, Stop date: 04/06/20 14:43:00 CDT lidocaine 2020 No Route: IV, Me moria (ANES) 0-14 Drug form: l 19:43: INJ, ONCE, Stop date: 04/06/20 14:43:00 CDT propofol 2020 No Route: IV, Mem oria (ANES) 0-14 Drug form: l 19:43: INJ, ONCE, Stop date: 04/06/20 14:43:00 CDT lidocaine 2020 No Route: IV, Me moria (ANES) 0-14 Drug form: l 19:43: INJ, ONCE, Stop date: 04/06/20 14:43:00 CDT propofol 2020 No Route: IV, Mem oria (ANES) 0-14 Drug form: l 19:43: INJ, ONCE, Stop date: 04/06/20 14:43:00 CDT lidocaine 2020 No Route: IV, Me moria (ANES) 0-14 Drug form: l 19:43: INJ, ONCE, [place] 00 Stop date: 04/06/20 14:43:00 CDT propofol 2019-06 No Route: IV, Mem oria (ANES) 0-14 Drug form: l 19:43: INJ, ONCE, [place] 00 Stop date: 04/06/20 14:43:00 CDT lidocaine 2019-06 No Route: IV, Me moria (ANES) 0-14 Drug form: l 19:43: INJ, ONCE, [place] 00 Stop date: 04/06/20 14:43:00 CDT midazolam 2019-06 No Route: IV, Me moria (ANES) 0-14 Drug form: l 19:38: SOLN, [place] ONCE, Stop date: 04/06/20 14:38:00 CDT fentaNYL 2019-06 No Route: IV, Mem oria (ANES) 0-14 Drug form: l 19:38: INJ, ONCE, [place] 00 Stop date: 04/06/20 14:38:00 CDT Amidate 2019-06 No Route: IV, Anthony litzy (ANES) 0-14 Drug form: l 19:38: INJ, ONCE, [place] 00 Stop date: 04/06/20 14:38:00 CDT midazolam 2019-06 No Route: IV, Me moria (ANES) 0-14 Drug form: l 19:38: SOLN, [place] ONCE, Stop date: 04/06/20 14:38:00 CDT fentaNYL 2019-06 No Route: IV, Mem oria (ANES) 0-14 Drug form: l 19:38: INJ, ONCE, [place] 00 Stop date: 04/06/20 14:38:00 CDT Amidate 2019-06 No Route: IV, Anthony litzy (ANES) 0-14 Drug form: l 19:38: INJ, ONCE, [place] 00 Stop date: 04/06/20 14:38:00 CDT midazolam 2019-06 No Route: IV, Me moria (ANES) 0-14 Drug form: l 19:38: SOLN, [place] ONCE, Stop date: 04/06/20 14:38:00 CDT fentaNYL [...] ONCE, Stop date: 04/06/20 14:27:00 CDT ceFAZolin 2020 No Route: IV, Me moria (ANES) 0-14 Drug form: l 19:27: INJ, ONCE, Stop date: 04/06/20 14:27:00 CDT ceFAZolin 2019-06 No Route: IV, Me moria (ANES) 0-14 Drug form: l 19:27: INJ, ONCE, Stop date: 04/06/20 14:27:00 CDT ceFAZolin 2019-06 No Route: IV, Me [...] CDT vancomycin 2019-06 No Route: IV, Keerthi perezria (ANES) 1000 0-14 Drug form: l mg 18:31: INJ, Start date: 04/06/20 13:31:00 CDT, Stop date: 04/06/20 14:31:00 CDT vancomycin 2019-06 No Route: IV, Keerthi perezria (ANES) 1000 0-14 Drug form: l mg [...] Duration: 30 day, Stop date: 05/06/20 11:46:00 NEWSCAST DIRECTOR, 1.74, m2 Sodium 2020-1 No 500 ml, Memoria Chloride 0-14 Rate: 25 l 0.9% IV 500 16:47: ml/hr, Herm vin ml 00 Infuse over: 20 hr, Route: IV, Dosing Weight 63.636 kg, Total Volume: 500, Start date: 04/06/20 11:47:00 CDT, Duration: 30 day, Stop date: 05/06/20 11:46:00 NEWSCAST DIRECTOR, 1.74, m2 Sodium 2020-1 No 500 ml, Memoria Chloride 0-14 Rate: 25 l 0.9% IV 500 16:47: ml/hr, Herm vin ml 00 Infuse over: 20 hr, Route: IV, Dosing Weight 63.636 kg, Total Volume: 500, Start date: 04/06/20 11:47:00 CDT, Duration: 30 day, Stop date: 05/06/20 11:46:00 NEWSCAST DIRECTOR, 1.74, m2 Sodium 2020-1 No 500 ml, Memoria Chloride 0-14 Rate: 25 l 0.9% IV 500 16:47: ml/hr, Herm vin ml 00 Infuse over: 20 hr, Route: IV, Dosing Weight 63.636 kg, Total Volume: 500, Start date: 04/06/20 11:47:00 CDT, Duration: 30 day, Stop date: 05/06/20 11:46:00 NEWSCAST DIRECTOR, 1.74, m2 Tylenol 2020-1 No 650 mg, Memoria 0-14 Route: PO, l 15:33: Drug form: [place] 00 TAB, ONCE, Dosing Weight 63.636, kg, PRN Pain Score 1-3, Start date: 04/06/20 10:33:00 CDT Tylenol 2020-1 No 650 mg, Memoria 0-14 Route: PO, l 15:33: Drug form: [place] 00 TAB, ONCE, Dosing Weight 63.636, kg, PRN Pain Score 1-3, Start date: 04/06/20 10:33:00 CDT Tylenol 2019-06 No 650 mg, Memoria 0-14 Route: PO, l 15:33: Drug form: [place] 00 TAB, ONCE, Dosing Weight 63.636, kg, PRN Pain Score 1-3, Start date: 04/06/20 10:33:00 CDT Tylenol 2019-06 No 650 mg, Memoria 0-14 Route: PO, l 15:33: Drug form: [place] 00 TAB, ONCE, Dosing Weight 63.636, kg, [...] Duration: 30 day, Stop date: 05/05/20 9:00:00 NEWSCAST DIRECTOR Triiodothyr 2019-06 No Notes: Anthony litzy onine 0-14 (Same as: l 14:00: Cytomel) [place] 00 24 HR 2019-06 No Notes: Memoria Metoprolol 0-14 (Same as: l Tartrate 25 14:00: Toprol XL) [place] MG Extended 00 Do Not Release Crush Tablet [Toprol] paricalcito 2019-06 No Notes: Anthony litzy l 0.001 MG 0-14 (Same as: l Oral 14:00: Zemplar) [place] Capsule 00 ferrous 2019-06 No Notes: Memoria sulfate 0-14 Give with l 14:00: food. "Do [place] 00 Not Crush" Allopurinol 2019-06 No Notes: Anthony litzy 0-14 (Same as: l 14:00: Zyloprim) [place] 00 Aspirin 81 2019-06 No Notes: Do Me moria MG Enteric 0-14 not crush l Coated 14:00: or chew. [place] Tablet 00 (Same As: Ecotrin) Clonidine 2019-06 No Notes: Memori a Hydrochlori 0-14 (Same As: l de 0.3 MG 14:00: Catapres) Her cardenas Oral Tablet 00 ferrous 2019-06 No 256 mg, Memoria gluconate 0-14 Route: PO, l 14:00: Drug form: [place] 00 TAB, Daily, Dosing Weight 63.636, kg, Start date: 04/06/20 9:00:00 CDT, Duration: 30 day, Stop date: 05/05/20 9:00:00 NEWSCAST DIRECTOR Triiodothyr 2019-06 No Notes: Anthony litzy onine 0-14 (Same as: l 14:00: Cytomel) [place] 00 24 HR 2019-06 No Notes: Memoria Metoprolol 0-14 (Same as: l Tartrate 25 14:00: Toprol XL) [place] MG Extended Do Not Release Crush Tablet [Toprol] paricalcito 2019-06 No Notes: Anthony litzy l 0.001 MG 0-14 (Same as: l Oral 14:00: Zemplar) [place] Capsule 00 ferrous 2019-06 No Notes: Memoria sulfate 0-14 Give with l 14:00: food. "Do [place] 00 Not Crush" Allopurinol 2019-06 No Notes: Anthony litzy 0-14 (Same as: l 14:00: Zyloprim) [place] 00 Aspirin 81 2019-06 No Notes: Do Me moria MG Enteric 0-14 not crush l Coated 14:00: or chew. [place] Tablet 00 (Same As: Ecotrin) Clonidine 2019-06 No Notes: Memori a Hydrochlori 0-14 (Same As: l de 0.3 MG 14:00: Catapres) Her cardenas Oral Tablet 00 ferrous 2019-06 No 256 mg, Memoria gluconate 0-14 Route: PO, l 14:00: Drug form: [place] 00 TAB, Daily, Dosing Weight 63.636, kg, Start date: 04/06/20 9:00:00 CDT, Duration: 30 day, Stop date: 05/05/20 9:00:00 NEWSCAST DIRECTOR Triiodothyr 2019-06 No Notes: Anthony litzy onine 0-14 (Same as: l 14:00: Cytomel) [place] 00 24 HR 2019-06 No Notes: Memoria Metoprolol 0-14 (Same as: l Tartrate 25 14:00: Toprol XL) [place] MG Extended 00 Do Not Release Crush Tablet [Toprol] paricalcito 2019-06 No Notes: Anthony litzy l 0.001 MG 0-14 (Same as: l Oral 14:00: Zemplar) [place] Capsule 00 ferrous 2019-06 No Notes: Memoria sulfate 0-14 Give with l 14:00: food. "Do [place] 00 Not Crush" Allopurinol 2019-06 No Notes: Anthony litzy 0-14 (Same as: l 14:00: Zyloprim) [place] 00 Aspirin 81 2019-06 No Notes: Do Me moria MG Enteric 0-14 not crush l Coated 14:00: or chew. [place] Tablet 00 (Same As: Ecotrin) Clonidine 2019-06 No Notes: Memori a Hydrochlori 0-14 (Same As: l de 0.3 MG 14:00: Catapres) Her cardenas Oral Tablet 00 ferrous 2019-06 No 256 mg, Memoria gluconate 0-14 Route: PO, l 14:00: Drug form: [place] 00 TAB, Daily, Dosing Weight 63.636, kg, Start date: 04/06/20 9:00:00 CDT, Duration: 30 day, Stop date: 05/05/20 9:00:00 NEWSCAST DIRECTOR Triiodothyr 2019-06 No Notes: Anthony litzy onine 0-14 (Same as: l 14:00: Cytomel) [place] 00 24 HR 2019-06 No Notes: Memoria Metoprolol 0-14 (Same as: l Tartrate 25 14:00: Toprol XL) [place] MG Extended 00 Do Not Release Crush Tablet [Toprol] paricalcito 2019-06 No Notes: Anthony litzy l 0.001 MG 0-14 (Same as: l Oral 14:00: Zemplar) [place] Capsule 00 ferrous 2019-06 No Notes: Memoria sulfate 0-14 Give with l 14:00: food. "Do [place] 00 Not Crush" Thyroxine 2019-06 No Notes: [...] a 0-14 Take 1 l 11:30: hour [place] 00 before or 2 hours after meal; [...] With Food Hydralazine 2019-06 No Notes: Anthony ltizy Hydrochlori 0-14 (Same as: l de 100 MG 05:00: Apresoline He rmann Oral Tablet 00 ) May interfere w/enteral feedings Take With Food Hydralazine 2019-06 No Notes: Anthony litzy 0-14 (Same as: l 03:03: Apresoline [place] 00 ) Push over 5 minutes Benzocaine 2019-06 No Notes: Memor ia 15 MG / 0-14 Same as: l Menthol 3.6 03:03: Cepacol Her cardenas MG Lozenge 00 [Cepacol Sore Throat Pain Relief 15/3.6] Tessalon 2019-06 No Notes: Memoria Perles 0-14 (Same As: l 03:03: Tessalon [place] Perles) "Do Not Crush" tizanidine 2019-06 No Notes: Memor ia 0-14 (Same As: l 03:03: Zanaflex) [place] Hydralazine 2019-06 No Notes: Anthony litzy 0-14 (Same as: l 03:03: Apresoline [place] ) Push over 5 minutes Benzocaine 2019-06 [...] litzy 0-14 (Same as: l 03:03: Apresoline [place] ) Push over 5 minutes Benzocaine 2019-06 No Notes: Memor ia 15 MG / 0-14 Same as: l Menthol 3.6 03:03: Cepacol Her cardenas MG Lozenge 00 [Cepacol Sore Throat Pain Relief 15/3.6] Tessalon 2019-06 No Notes: Memoria Perles 0-14 (Same As: l 03:03: Tessalon [place] Perles) "Do Not Crush" tizanidine 2019-06 No Notes: Memor ia 0-14 (Same As: l 03:03: Zanaflex) [place] Hydralazine 2019-06 No Notes: Anthony litzy 0-14 (Same as: l 03:03: Apresoline [place] ) Push over 5 minutes Benzocaine 2019-06 No Notes: Memor ia 15 MG / 0-14 Same as: l Menthol 3.6 03:03: Cepacol Her cardenas MG Lozenge 00 [Cepacol Sore Throat Pain Relief 15/3.6] Tessalon 2019-06 No Notes: Memoria Perles 0-14 (Same As: l 03:03: Tessalon Perles) "Do Not Crush" tizanidine 2019-06 No Notes: Memor ia 0-14 (Same As: l 03:03: Zanaflex) [place] 00 Acetaminoph 2019-06 No Notes: Anthony litzy en 325 MG / 0-14 (Same as: l Hydrocodone 01:40: [place] Maribell nn Bitartrate 00 325/5) Do 5 MG Oral not exceed Tablet 4gm/day of [[place] acetaminop 5/325] hen. Acetaminoph 2019-06 No Notes: Anthony litzy en 325 MG / 0-14 (Same as: l Hydrocodone 01:40: [place] Maribell nn Bitartrate 00 325/5) Do 5 MG Oral not exceed Tablet 4gm/day of [[place] acetaminop 5/325] hen. Acetaminoph 2019-06 No Notes: Anthony litzy en 325 MG / 0-14 (Same as: l Hydrocodone 01:40: [place] Maribell nn Bitartrate 00 325/5) Do 5 MG Oral not exceed Tablet 4gm/day of [[place] acetaminop 5/325] hen. Acetaminoph 2019-06 No Notes: Anthony litzy en 325 MG / 0-14 (Same as: l Hydrocodone 01:40: [place] Maribell nn Bitartrate 00 325/5) Do 5 MG Oral not exceed Tablet 4gm/day of [[place] acetaminop 5/325] hen. Dextrose 2019-06 No 12.5 gm, Memor ia 50% Syringe 0-14 25 mL, l (D50W) 01:39: Route: IVP, Drug Form: INJ, Dosing Weight 63.636, kg, PRN, PRN Blood Glucose Results, Start date: 04/05/20 20:39:00 CDT, Duration: 30 day, Stop date: 05/05/20 19:38:00 NEWSCAST DIRECTOR, 0 Glucagon 2019-06 No 1 mg, Memoria 0-14 Route: IM, l 01:39: Drug form: PDR/INJ, PRN, Dosing Weight 63.636, kg, PRN Blood Glucose Results, Start date: 04/05/20 20:39:00 CDT, Duration: 30 day, Stop date: 05/05/20 19:38:00 NEWSCAST DIRECTOR, 0 Docusate 2019-06 No Notes: Memoria 0-14 (Same as: l 01:39: Colace) [place] 00 (Do Not Crush) Ondansetron 2019-06 No Notes: Anthony litzy 0-14 (Same as: l 01:39: Zofran) [place] 00 MEDICATION WASTE Product Size: 4 mg Product Wasted: ___ mg Melatonin 2019-06 No Notes: Memori a 0-14 (Same as: l 01:39: Melatonin) [place] 00 Acetaminoph 2019-06 No Notes: Do M [...] Duration: 30 day, Stop date: 05/05/20 19:38:00 NEWSCAST DIRECTOR, 0 Glucagon 2019-06 No 1 mg, Memoria 0-14 Route: IM, l 01:39: Drug form: [place] 00 PDR/INJ, PRN, Dosing Weight 63.636, kg, PRN Blood Glucose Results, Start date: 04/05/20 20:39:00 CDT, Duration: 30 day, Stop date: 05/05/20 19:38:00 NEWSCAST DIRECTOR, 0 Docusate 2019-06 No Notes: Memoria 0-14 (Same as: l 01:39: Colace) [place] 00 (Do Not Crush) Ondansetron 2019-06 No Notes: Anthony litzy 0-14 (Same as: l 01:39: Zofran) [place] 00 MEDICATION WASTE Product Size: 4 mg Product Wasted: ___ mg Melatonin 2019-06 No Notes: Memori a 0-14 (Same as: l 01:39: Melatonin) [place] 00 Acetaminoph 2019-06 No Notes: Do M emoria en 0-14 not exceed l 01:39: 4 gm/day. [place] 00 (Same as: Tylenol) Dextrose 2019-06 No 12.5 gm, Memor ia 50% Syringe 0-14 25 mL, l (D50W) 01:39: Route: [place] 00 IVP, Drug Form: INJ, Dosing Weight 63.636, kg, PRN, PRN Blood Glucose Results, Start date: 04/05/20 20:39:00 CDT, Duration: 30 day, Stop date: 05/05/20 19:38:00 NEWSCAST DIRECTOR, 0 Glucagon 2019-06 No 1 mg, Memoria 0-14 Route: IM, l 01:39: Drug form: [place] 00 PDR/INJ, PRN, Dosing Weight 63.636, kg, PRN Blood Glucose Results, Start date: 04/05/20 20:39:00 CDT, Duration: 30 day, Stop date: 05/05/20 19:38:00 NEWSCAST DIRECTOR, 0 Docusate 2019-06 No Notes: Memoria 0-14 [...] 0-14 not exceed l 01:39: 4 gm/day. [place] 00 (Same as: Tylenol) Dextrose 2019-06 No 12.5 gm, Memor ia 50% Syringe 0-14 25 mL, l (D50W) 01:39: Route: [place] 00 IVP, Drug Form: INJ, Dosing Weight 63.636, kg, PRN, PRN Blood Glucose Results, Start date: 04/05/20 20:39:00 CDT, Duration: 30 day, Stop date: 05/05/20 19:38:00 NEWSCAST DIRECTOR, 0 Glucagon 2019-06 No 1 mg, Memoria 0-14 Route: IM, l 01:39: Drug form: PDR/INJ, PRN, Dosing Weight 63.636, kg, PRN Blood Glucose Results, Start date: 04/05/20 20:39:00 CDT, Duration: 30 day, Stop date: 05/05/20 19:38:00 NEWSCAST DIRECTOR, 0 Docusate 2019- No Notes: Memoria 0-14 (Same as: l [...] l 01:39: 4 gm/day. (Same as: Tylenol) metoprolol 2020-0 No 1mg tartrate 25 7-20 mg tablet 00:00: 00 allopurinol 2020-0 No 1mg 100 mg 7-20 tablet 00:00: 00 metoprolol 2020-0 No 1mg tartrate 25 7-20 mg tablet 00:00: 00 allopurinol 2020-0 No 1mg 100 mg 7-20 tablet 00:00: 00 metoprolol 2020-0 No 1mg tartrate 25 4-21 mg tablet 00:00: 00 metoprolol 2020-0 No 1mg tartrate 25 4-21 mg tablet 00:00: 00 atorvastati 2020-0 No 1mg n 40 mg 4-21 tablet 00:00: 00 allopurinol 2020-0 No 1mg 100 mg 4-21 tablet 00:00: 00 hydroxyzine 2020-0 No 1mg HCl 25 mg 4-21 tablet 00:00: 00 levothyroxi 2020-0 No 1mcg ne 50 mcg 4-21 tablet 00:00: 00 liothyronin 2020-0 No 1mcg e 5 mcg 4-21 tablet 00:00: 00 cyanocobala 2020-0 No 1mcg/mL min (vit 4-21 B-12) 1,000 00:00: mcg/mL 00 injection solution metoprolol 2020-0 No 1mg tartrate 25 4-21 mg tablet 00:00: 00 metoprolol 2020-0 No 1mg tartrate 25 4-21 mg tablet 00:00: 00 atorvastati 2020-0 No 1mg n 40 mg 4-21 tablet 00:00: 00 allopurinol 2020-0 No 1mg 100 mg 4-21 tablet 00:00: 00 hydroxyzine 2020-0 No 1mg HCl 25 mg 4-21 tablet 00:00: 00 levothyroxi 2020-0 No 1mcg ne 50 mcg 4-21 tablet 00:00: 00 liothyronin 2020-0 No 1mcg e 5 mcg 4-21 tablet 00:00: 00 cyanocobala 2020-0 No 1mcg/mL min (vit 10-12 B-12) 1,000 00:00: mcg/mL 00 injection solution metoprolol 2020-0 No 1mg tartrate 25 1-17 mg tablet 00:00: 00 atorvastati 2020-0 No 1mg n 40 mg 1-17 tablet 00:00: 00 allopurinol 2020-0 No 1mg 100 mg 1-17 tablet 00:00: 00 levothyroxi 2020-0 No 1mcg ne 50 mcg 1-17 tablet 00:00: 00 liothyronin 2020-0 No 1mcg e 5 mcg 1-17 tablet 00:00: 00 cyanocobala 2020-0 No 1mcg/mL min (vit 07-10 B-12) 1,000 00:00: mcg/mL 00 injection solution metoprolol 2020-0 No 1mg tartrate 25 1-17 mg tablet 00:00: 00 atorvastati 2020-0 No 1mg n 40 mg 1-17 tablet 00:00: 00 allopurinol 2020-0 No 1mg 100 mg 1-17 tablet 00:00: 00 levothyroxi 2020-0 No 1mcg ne 50 mcg 1-17 tablet 00:00: 00 liothyronin 2020-0 No 1mcg e 5 mcg 1-17 tablet 00:00: 00 cyanocobala 2020-0 No 1mcg/mL min (vit 17 B-12) 1,000 00:00: mcg/mL 00 injection solution Nia 2020-0 No 1mg Chewable 1-16 Low Dose 00:00: Aspirin 81 00 mg tablet clonidine 2020-0 No 1mg HCl 0.2 mg 1-16 tablet 00:00: 00 metoprolol 2020-0 No 1mg tartrate 25 1-16 mg tablet 00:00: 00 metoprolol 2020-0 No 1mg tartrate 25 1-16 mg tablet 00:00: 00 allopurinol 2020-0 No 1mg 100 mg 1-16 tablet 00:00: 00 hydroxyzine 2020-0 No 1mg HCl 25 mg 1-16 tablet 00:00: 00 iron 325 mg 2020-0 No 1(65 mg (65 mg 1-16 iron) iron) 00:00: tablet 00 levothyroxi 2020-0 No 1mcg ne 50 mcg 1-16 tablet 00:00: 00 Vitamin D2 2020-0 No 1(50,00 1,250 mcg 1-16 0 unit) (50,000 00:00: unit) 00 capsule Nia 2020-0 No 1mg Chewable 1-16 Low Dose 00:00: Aspirin 81 00 mg tablet clonidine 2020-0 No 1mg HCl 0.2 mg 1-16 tablet 00:00: 00 metoprolol 2020-0 No 1mg tartrate 25 1-16 mg tablet 00:00: 00 cyanocobala 2020-0 No 1mcg/mL min (vit 1-16 B-12) 1,000 00:00: mcg/mL 00 injection solution metoprolol 2020-0 No 1mg tartrate 25 1-16 mg tablet 00:00: 00 allopurinol 2020-0 No 1mg 100 mg 1-16 tablet 00:00: 00 hydroxyzine 2020-0 No 1mg HCl 25 mg 1-16 tablet 00:00: 00 iron 325 mg 2020-0 No 1(65 mg (65 mg 1-16 iron) iron) 00:00: tablet 00 levothyroxi 2020-0 No 1mcg ne 50 mcg 1-16 tablet 00:00: 00 Vitamin D2 2020-0 No 1(50,00 1,250 mcg 1-16 0 unit) (50,000 00:00: unit) 00 capsule cyanocobala 2020-0 No 1mcg/mL min (vit 1-16 B-12) 1,000 00:00: mcg/mL 00 injection solution cyanocobala 2020-0 No 1mcg/mL min (vit 1-16 B-12) 1,000 00:00: mcg/mL 00 injection solution cyanocobala 2020-0 No 1mcg/mL min (vit 1-16 B-12) 1,000 00:00: mcg/mL 00 injection solution levothyroxi 2020-0 No 1mcg ne 50 mcg 1-07 tablet 00:00: 00 Zemplar 1 2020-0 No 1mcg mcg capsule 1-07 00:00: 00 clonidine 2020-0 No 1mg HCl 0.2 mg 1-07 tablet 00:00: 00 metoprolol 2020-0 No 1mg tartrate 25 1-07 mg tablet 00:00: 00 allopurinol 2020-0 No 1mg 100 mg 1-07 tablet 00:00: 00 hydroxyzine 2020-0 No 1mg HCl 25 mg 1-07 tablet 00:00: 00 levothyroxi 2020-0 No 1mcg ne 50 mcg 1-07 tablet 00:00: 00 Zemplar 1 2020-0 No 1mcg mcg capsule 1-07 00:00: 00 clonidine 2020-0 No 1mg HCl 0.2 mg 1-07 tablet 00:00: 00 metoprolol 2020-0 No 1mg tartrate 25 1-07 mg tablet 00:00: 00 allopurinol 2020-0 No 1mg 100 mg 1-07 tablet 00:00: 00 hydroxyzine 2020-0 No 1mg HCl 25 mg 1-07 tablet 00:00: 00 atorvastati 2019-0 Yes 40 mg = 1 M emoria n 40 mg 7-28 tab, PO, l oral tablet 17:26: Bedtime, # [place] 00 30 tab, 0 Refill(s) atorvastati 2019-0 Yes 40 mg = 1 M emoria n 40 mg 7-28 tab, PO, l oral tablet 17:26: Bedtime, # [place] 00 30 tab, 0 Refill(s) atorvastati 2019-0 Yes 40 mg = 1 M emoria n 40 mg 7-28 tab, PO, l oral tablet 17:26: Bedtime, # [place] 00 30 tab, 0 Refill(s) atorvastati 2019-0 Yes 40 mg = 1 M emoria n 40 mg 7-28 tab, PO, l oral tablet 17:26: Bedtime, # [place] 00 30 tab, 0 Refill(s) Aspirin 81 2019- Yes 81 mg = 1 Me moria MG Enteric 7-28 tab, PO, l Coated 17:21: Daily, # [place] Tablet 00 90 tab, 3 Refill(s) Aspirin 81 2019- Yes 81 mg = 1 Me moria MG Enteric 7-28 tab, PO, l Coated 17:21: Daily, # [place] Tablet 00 90 tab, 3 Refill(s) Aspirin 81 2019-0 Yes 81 mg = 1 Me moria MG Enteric 7-28 tab, PO, l Coated 17:21: Daily, # [place] Tablet 00 90 tab, 3 Refill(s) Aspirin 81 Yes 81 mg = 1 Me moria MG Enteric 7-28 tab, PO, l Coated 17:21: Daily, # [place] Tablet 00 90 tab, 3 Refill(s) Ondansetron 2019- Yes 4 mg = 1 Me moria [...] tongue, # 10 tab, 0 Refill(s) Ondansetron 2018- Yes 4 mg = 1 Me moria [...] l MG / 17:05: day, # 20 [place] sennosides, 00 tab, 0 MCFP 8.6 MG Refill(s) Oral Tablet metoprolol Yes 25 mg = 1 Me moria 25 mg oral 7-28 tab, PO, l tablet, 17:05: Daily, # [place] n extended 30 tab, 0 release Refill(s) Acetaminoph Yes 1 tab, PO, Memoria en 300 MG / 7-28 Q6H, PRN l Codeine 17:05: Pain, X 7 Maribell nn Phosphate 00 day, # 28 30 MG Oral tab, 0 Tablet Refill(s) [Tylenol with Codeine #3] Docusate Yes 1 tab, PO, Mem oria Sodium 50 7-28 BID, X 10 l MG / 17:05: day, # 20 [place] sennosides, 00 tab, 0 MCFP 8.6 MG Refill(s) Oral Tablet metoprolol Yes [...] l MG / 17:05: day, # 20 [place] sennosides, 00 tab, 0 MCFP 8.6 MG Refill(s) Oral Tablet metoprolol Yes [...] 1 tab, PO, Mem oria Sodium 50 7- BID, X 10 l MG / 17:05: day, # 20 [place] sennosides, 00 tab, 0 MCFP 8.6 MG Refill(s) Oral Tablet metoprolol Yes 25 mg = 1 Me moria 25 mg oral 7-28 tab, PO, l tablet, 17:05: Daily, # [place]enan n extended 00 30 tab, 0 release Refill(s) Clonidine No Notes: Memori a Hydrochlori 7-27 [...] 00 metoprolol No Notes: Memor ia extended 7-27 (Same as: l release 17:00: Toprol XL) Herm vin 00 Do Not Crush metoprolol No Notes: Memor ia extended 7-27 (Same as: l release 17:00: Toprol XL) Herm vin 00 Do Not Crush metoprolol No Notes: Memor ia extended 7-27 (Same as: l release 17:00: Toprol XL) Herm vin 00 Do Not Crush metoprolol No Notes: Memor ia extended 7-27 (Same as: l release 17:00: Toprol XL) Herm vin 00 Do Not Crush Ondansetron No Notes: Anthony litzy 7-27 (Same as: l 16:09: Zofran) [place] 00 MEDICATION WASTE Product Size: 4 mg Product Wasted: ___ mg Ondansetron No Notes: Anthony litzy 7-27 (Same as: l 16:09: Zofran) [place] MEDICATION WASTE Product Size: 4 mg Product Wasted: ___ mg Ondansetron No Notes: Anthony litzy 7-27 (Same as: l 16:09: Zofran) [place] MEDICATION WASTE Product Size: 4 mg Product Wasted: ___ mg Ondansetron No Notes: Anthony litzy 7-27 (Same as: l 16:09: Zofran) [place] 00 MEDICATION WASTE Product Size: 4 mg Product Wasted: ___ mg Reglan No Notes: Memoria 7-27 (Same as: l 15:31: Reglan) [place] 00 Hydralazine No Notes: Anthony litzy 7-27 (Same as: l 15:31: Apresoline [place] 00 ) Push over 5 minutes Reglan No Notes: Memoria 7-27 (Same as: l 15:31: Reglan) [place] Hydralazine No Notes: Anthony litzy 7-27 (Same as: l 15:31: Apresoline [place] 00 ) Push over 5 minutes Reglan No Notes: Memoria 7-27 (Same as: l 15:31: Reglan) [place] 00 Hydralazine No Notes: Anthony ltizy 7-27 (Same as: l 15:31: Apresoline [place] 00 ) Push over 5 minutes Reglan No Notes: Memoria 7-27 (Same as: l 15:31: Reglan) [place] 00 Hydralazine No Notes: Anthony litzy 7-27 (Same as: l 15:31: Apresoline ) Push over 5 minutes Allopurinol No Notes: Anthony litzy 7-27 (Same as: l 14:00: Zyloprim) [place] ferrous No 256 mg, Memoria gluconate 01-17 Route: PO, l 14:00: Drug form: [place] TAB, Daily, Dosing Weight 62.358, kg, Start date: 01/17/19 9:00:00 CDT, Duration: 30 day, Stop date: 02/15/19 9:00:00 CDT Docusate No Notes: Memoria Sodium 50 7-27 (Same as l MG / 14:00: Senokot-S) [place] sennosides, 00 Equiv. to MCFP 8.6 MG Zoraida-Colac Oral Tablet e. ferrous No Notes: Memoria sulfate 7-27 Give with l 14:00: food. "Do [place] 00 Not Crush" paricalcito No Notes: Anthony [...] litzy 7-27 (Same as: l 14:00: Zyloprim) [place] 00 ferrous No 256 mg, Memoria gluconate 7-27 Route: PO, l 14:00: Drug form: [place] 00 TAB, Daily, Dosing Weight 62.358, kg, Start date: 01/17/19 9:00:00 CDT, Duration: 30 day, Stop date: 02/15/19 9:00:00 CDT Docusate No Notes: Memoria Sodium 50 7-27 (Same as l MG / 14:00: Senokot-S) [place] sennosides, 00 Equiv. to MCFP 8.6 MG Zoraida-Colac Oral Tablet e. ferrous No Notes: Memoria sulfate 7-27 Give with l 14:00: food. "Do [place] 00 Not Crush" paricalcito No Notes: Anthony litzy l 0.001 MG 7-27 (Same as: l Oral 14:00: Zemplar) [place] Capsule 00 Nifedical No Notes: Memori a XL 7-27 (Same as: l 14:00: Adalat CC, [place] Procardia XL) Give on empty stomach. Take 1 hour before or 2 hours after meal; "Avoid grapefruit and grapefruit juice". Do not crush Nephro-Flash No Notes: Anthony litzy Rx 7-27 (Same as: l 14:00: Nephro-Vit [place] 00 e Rx and Diatx) Give with food. Allopurinol No Notes: Anthony litzy 7-27 (Same as: l 14:00: Zyloprim) ferrous No 256 mg, Memoria gluconate 7-27 Route: PO, l 14:00: Drug form: [place] 00 TAB, Daily, Dosing Weight 62.358, kg, Start date: 01/17/19 9:00:00 CDT, Duration: 30 day, Stop date: 02/15/19 9:00:00 CDT Docusate No Notes: Memoria Sodium 50 7-27 (Same as l MG / 14:00: Senokot-S) sennosides, 00 Equiv. to MCFP 8.6 MG Zoraida-Colac Oral Tablet e. ferrous No Notes: Memoria sulfate 7-27 Give with l 14:00: food. "Do Not Crush" paricalcito No Notes: Anthony litzy l 0.001 MG 7-27 (Same as: l Oral 14:00: Zemplar) Capsule 00 Nifedical No Notes: Memori a XL 7-27 (Same as: l 14:00: Adalat CC, [place] Procardia XL) Give on empty stomach. Take [...] 7-27 Route: PO, l 14:00: Drug form: [place] 00 TAB, Daily, Dosing Weight 62.358, kg, Start date: 01/17/19 9:00:00 CDT, Duration: 30 day, Stop date: 02/15/19 9:00:00 CDT Docusate No Notes: Memoria Sodium 50 7-27 (Same as l MG / 14:00: Senokot-S) sennosides, 00 Equiv. to MCFP 8.6 MG Zoraida-Colac Oral Tablet e. ferrous No Notes: Memoria sulfate 7-27 Give with l 14:00: food. "Do [place] 00 Not Crush" paricalcito No Notes: Anthony litzy l 0.001 MG 7-27 (Same as: l Oral 14:00: Zemplar) [place] Capsule 00 Nifedical No Notes: Memori a XL 7-27 (Same as: l 14:00: Adalat CC, [place] Procardia XL) Give on empty stomach. Take 1 hour before or 2 hours after meal; "Avoid grapefruit and grapefruit juice". Do not crush Nephro-Flash No Notes: Anthony litzy Rx - (Same as: l 14:00: Nephro-Vit [place] 00 e Rx and Diatx) Give with food. Triiodothyr No Notes: Anthony litzy onine 7-27 (Same as: l 11:30: Cytomel) Thyroxine No Notes: Memori a 7-27 Take 1 l 11:30: hour [place] 00 before or 2 hours after meal; Enteral feeds may interefere with the absorption of this medication .(Same as:Levothr oid, Synthroid) Triiodothyr No Notes: Anthony litzy onine 7-27 (Same as: l 11:30: Cytomel) Thyroxine No Notes: Memori a 7-27 Take 1 l 11:30: hour [place] 00 before or 2 hours after meal; Enteral feeds may interefere with the absorption of this medication .(Same as:Levothr oid, Synthroid) Triiodothyr No Notes: Anthony litzy onine 7-27 (Same as: l 11:30: Cytomel) Thyroxine No Notes: Memori a 7-27 Take 1 l 11:30: hour [place] 00 before or 2 hours after meal; Enteral feeds may interefere with the absorption of this medication .(Same as:Levothr oid, Synthroid) Triiodothyr No Notes: Anthony litzy onine 01-17 (Same as: l 11:30: Cytomel) Thyroxine No Notes: Memori a 01-17 Take 1 l 11:30: hour [place] 00 before or 2 hours after meal; Enteral feeds may interefere with the absorption of this medication .(Same as:Levothr oid, Synthroid) heparin No Notes: Memoria 01-17 porcine l 06:00: heparin [place] 00 heparin No Notes: Memoria 01-17 porcine l 06:00: heparin [place] 00 heparin No Notes: Memoria 01-17 porcine l 06:00: heparin [place] 00 heparin No Notes: Memoria 01-17 porcine l 06:00: heparin [place] atorvastati No Notes: Anthony litzy n 01-17 (Same as: l 02:00: Lipitor) [place] 00 atorvastati No Notes: Anthony litzy n 01-17 (Same as: l 02:00: Lipitor) [place] 00 atorvastati No Notes: Anthony litzy n 01-17 (Same as: l 02:00: Lipitor) atorvastati No Notes: Anthony litzy n 01-17 (Same as: l 02:00: Lipitor) Acetaminoph No Notes: Anthony litzy en 325 MG / 01-17 (Same as: l Hydrocodone 00:40: [place] Maribell nn Bitartrate 00 325/5) Do 5 MG Oral not exceed Tablet 4gm/day of [[place] acetaminop 5/325] hen. Acetaminoph No Notes: Anthony litzy en 325 MG / 01-17 (Same as: l Hydrocodone 00:40: [place] Maribell nn Bitartrate 00 325/5) Do 5 MG Oral not exceed Tablet 4gm/day of [[place] acetaminop 5/325] hen. Acetaminoph 2019-0 No Notes: Anthony litzy en 325 MG / 01-17 (Same as: l Hydrocodone 00:40: [place] Mariblel nn Bitartrate 00 325/5) Do 5 MG Oral not exceed Tablet 4gm/day of [[place] acetaminop 5/325] hen. Acetaminoph No Notes: Anthony litzy en 325 MG / 01-17 (Same as: l Hydrocodone 00:40: [place] Maribell nn Bitartrate 00 325/5) Do 5 MG Oral not exceed Tablet 4gm/day of [[place] acetaminop 5/325] hen. Acetaminoph No 2 tab, Anthony litzy en 325 MG / 01-17 Route: PO, l Hydrocodone 00:36: Dosing Herm vin Bitartrate 00 Weight 5 MG Oral 62.358, Tablet kg, Q4H, [[place] STAT, 5/325] Start date: 01/16/19 19:36:00 CDT, Duration: 30 day, Stop date: 02/15/19 16:00:00 CDT Acetaminoph No 2 tab, Anthony litzy en 325 MG / 01-17 Route: PO, l Hydrocodone 00:36: Dosing Herm vin Bitartrate 00 Weight 5 MG Oral 62.358, Tablet kg, Q4H, [[place] STAT, 5/325] Start date: 01/16/19 19:36:00 CDT, Duration: 30 day, Stop date: 02/15/19 16:00:00 CDT Acetaminoph No 2 tab, Anthony litzy en 325 MG / 01-17 Route: PO, l Hydrocodone 00:36: Dosing Herm vni Bitartrate 00 Weight 5 MG Oral 62.358, Tablet kg, Q4H, [[place] STAT, 5/325] Start date: 01/16/19 19:36:00 CDT, Duration: 30 day, Stop date: 02/15/19 16:00:00 CDT Acetaminoph No 2 tab, Anthony litzy en 325 MG / 01-17 Route: PO, l Hydrocodone 00:36: Dosing Herm vin Bitartrate 00 Weight 5 MG Oral 62.358, Tablet kg, Q4H, [[place] STAT, 5/325] Start date: 01/16/19 19:36:00 CDT, Duration: 30 day, Stop date: 02/15/19 16:00:00 CDT Milk of No Notes: Memoria Magnesia 7-26 (Same as: l 23:23: Milk of [place] 00 Farnaz, MOM) Milk of No Notes: Memoria Magnesia 7-26 (Same as: l 23:23: Milk of [place] 00 Farnaz, MOM) Milk of No Notes: Memoria Magnesia 7-26 (Same as: l 23:23: Milk of [place] 00 Farnaz, MOM) Milk of No Notes: Memoria Magnesia 7-26 (Same as: l 23:23: Milk of [place] Farnaz, MOM) Aspirin 81 No Notes: Memor ia MG Chewable 7-26 Take with l Tablet 22:30: food. Aspirin 81 No Notes: Memor ia MG Chewable 7-26 Take with l Tablet 22:30: food. Aspirin 81 No Notes: Memor ia MG Chewable 7-26 Take with l Tablet 22:30: food. Aspirin 81 No Notes: Memor ia MG [...] MG/ML 7-26 (Same l Oral 22:23: as:Chronul [place] Solution 00 ac) Morphine No Notes: Memoria 7-26 (Same l 22:23: as:MORPhin [place] 00 e Sulfate) Lactulose No Notes: Memori a 667 MG/ML 7-26 (Same l Oral 22:23: as:Chronul [place] Solution 00 ac) Morphine No Notes: Memoria 7-26 (Same l 22:23: as:MORPhin [place] 00 e Sulfate) Lactulose No Notes: Memori a 667 MG/ML 7-26 (Same l Oral 22:23: as:Chronul [place] Solution 00 ac) Morphine No Notes: Memoria 7-26 (Same l 22:23: as:MORPhin [place] 00 e Sulfate) Lactulose No Notes: Memori a 667 MG/ML 7-26 (Same l Oral 22:23: as:Chronul [place] Solution 00 ac) Morphine No Notes: Memoria 7-26 (Same l 22:23: as:MORPhin [place] 00 e Sulfate) Metoprolol No Notes: Memor ia 7- (Same as: l 22:16: Lopressor) [place] 00 Push over 2 minutes Metoprolol No Notes: Memor ia 7-26 (Same as: l 22:16: Lopressor) [place] 00 Push over 2 minutes Metoprolol No Notes: Memor ia 7-26 (Same as: l 22:16: Lopressor) [place] 00 Push over 2 minutes Metoprolol No Notes: Memor ia 7-26 (Same as: l 22:16: Lopressor) [place] 00 Push over 2 minutes Epogen No Notes: Memoria 7-26 (Same as: l 22:00: Procrit) [place] 00 epoetin jennifer 4000 unit/1 ml VL [...] Memoria 01-16 (Same as: l 22:00: Procrit) [place] epoetin jennifer 4000 unit/1 ml VL For [...] 01-16 (Same as: l 22:00: Procrit) [place] epoetin jennifer 4000 unit/1 ml VL For [...] Memoria 01-16 (Same as: l 22:00: Procrit) [place] 00 epoetin jennifer 4000 unit/1 ml VL [...] moria e 01-16 Route: l 17:59: IVPB, [place] 00 ONCE, Dosing Weight 62.358, kg, PRN Nausea & Vomiting, Start date: 01/16/19 12:59:00 CDT Naloxone No 0.1 mg, Memori a 01-16 Route: l 17:59: SUB-Q, [place] 00 Q6H, Dosing Weight 62.358, kg, PRN Itching, Start date: 01/16/19 12:59:00 CDT, Duration: 30 day, Stop date: 02/15/19 12:58:00 CDT Meperidine 2019-0 No 12.5 mg, Mem oria 01-16 Route: l 17:59: IVP, [place] 00 Q30Min, Dosing Weight 62.358, kg, PRN Other -See Comment, For shivering, Start date: 01/16/19 12:59:00 CDT, Duration: 2 doses or times, Stop date: Limited # of times Ondansetron 2019-0 No 4 mg, Memor ia 01-16 Route: l 17:59: IVP, ONCE, Dosing Weight 62.358, kg, PRN Nausea & Vomiting, Start date: 01/16/19 12:59:00 CDT Flumazenil 2019-0 No 0.2 mg, Anthony litzy 01-16 Route: l 17:59: IVP, PRN, Dosing Weight 62.358, kg, PRN Benzodiaze pine Reversal, Initial dose, Start date: 01/16/19 12:59:00 CDT, Duration: 30 day, Stop date: 02/15/19 12:58:00 CDT Fentanyl 2018-0 No 50 Memoria 01-16 microgram, l 17:59: Route: [place] 00 IVP, Q5Min, Dosing Weight 62.358, kg, PRN Pain Score 7-10, Priority: Routine, Start date: 01/16/19 12:59:00 CDT, Duration: 2 doses or times, Stop date: Limited # of times Hydromorpho 2019-0 No 0.5 mg, Mem oria ne 01-16 Route: l 17:59: IVP, [place] 00 Q5Min, Dosing Weight 62.358, kg, PRN [...] Anthony litzy 01-16 Route: l 17:59: IVP, [place] 00 Q20Min, Dosing Weight 62.358, kg, PRN [...] Mem oria 01-16 Route: l 17:59: IVP, Q30Min, Dosing Weight 62.358, kg, PRN Other -See Comment, For shivering, Start date: 01/16/19 12:59:00 CDT, Duration: 2 doses or times, Stop date: Limited # of times Ondansetron 2019-0 No 4 mg, Memor ia 01-16 Route: l 17:59: IVP, ONCE, Dosing Weight 62.358, kg, PRN Nausea & Vomiting, Start date: 01/16/19 12:59:00 CDT Flumazenil 2019-0 No 0.2 mg, Anthony litzy 01-16 Route: l 17:59: IVP, PRN, Dosing Weight 62.358, kg, PRN Benzodiaze pine Reversal, Initial dose, Start date: 01/16/19 12:59:00 CDT, Duration: 30 day, Stop date: 02/15/19 12:58:00 CDT Fentanyl 2019-0 No 50 Memoria 01-16 microgram, l 17:59: Route: IVP, Q5Min, Dosing Weight 62.358, kg, PRN Pain Score 7-10, Priority: Routine, Start date: 01/16/19 12:59:00 CDT, Duration: 2 doses or times, Stop date: Limited # of times Hydromorpho 2019-0 No 0.5 mg, Mem oria ne 01-16 Route: l 17:59: IVP, Q5Min, Dosing Weight 62.358, kg, PRN [...] MG/ML 01-16 Route: l Inhalant 17:59: NEB, [place] Solution 00 Q20Min, Dosing Weight 62.358, kg, PRN Wheezing, Priority: Routine, Start date: 01/16/19 12:59:00 CDT, Duration: 30 day, Stop date: 02/15/19 12:58:00 CDT Acetaminoph 2019-0 No 1,000 mg, M emoria en 01-16 Route: PO, l 17:59: Drug form: [place] 00 TAB, ONCE, Dosing Weight 62.358, kg, PRN Pain Score 1-3, Start date: 01/16/19 12:59:00 CDT Hydralazine 2019-0 No 10 mg, Anthony litzy 01-16 Route: l 17:59: IVP, [place] 00 Q20Min, Dosing Weight 62.358, kg, PRN Elevated BP, Start date: 01/16/19 12:59:00 CDT, Duration: 2 doses or times, Stop date: Limited # of times Labetalol 2019-0 No 10 mg, Memori a 01-16 Route: l 17:59: IVP, [place] 00 Q5Min, Dosing Weight 62.358, kg, PRN Elevated BP, Start date: 01/16/19 12:59:00 CDT, Duration: 5 doses or times, Stop date: Limited # of times Promethazin 2019-0 No 6.25 mg, Me moria e 01-16 Route: l 17:59: IVPB, [place] 00 ONCE, Dosing Weight 62.358, kg, PRN Nausea & Vomiting, Start date: 01/16/19 12:59:00 CDT Naloxone 2019-0 No 0.1 mg, Memori a 01-16 Route: l 17:59: SUB-Q, [place] 00 Q6H, Dosing Weight 62.358, kg, PRN Itching, Start date: 01/16/19 12:59:00 CDT, Duration: 30 day, Stop date: 02/15/19 12:58:00 CDT Meperidine 2019-0 No 12.5 mg, Mem oria 01-16 Route: l 17:59: IVP, [place] 00 Q30Min, Dosing Weight 62.358, kg, PRN [...] litzy 01-16 Route: l 17:59: IVP, PRN, [place] 00 Dosing Weight 62.358, kg, PRN Benzodiaze pine Reversal, Initial dose, Start date: 01/16/19 12:59:00 CDT, Duration: 30 day, Stop date: 02/15/19 12:58:00 CDT Fentanyl 2019-0 No 50 Memoria 01-16 microgram, l 17:59: Route: [place] 00 IVP, Q5Min, Dosing Weight 62.358, kg, [...] MG/ML 01-16 Route: l Inhalant 17:59: NEB, [place] Solution 00 Q20Min, Dosing Weight 62.358, kg, PRN Wheezing, Priority: Routine, Start date: 01/16/19 12:59:00 CDT, Duration: 30 day, Stop date: 02/15/19 12:58:00 CDT Acetaminoph 2019-0 No 1,000 mg, M emoria en 01-16 Route: PO, l 17:59: Drug form: [place] 00 TAB, ONCE, Dosing Weight 62.358, kg, PRN Pain Score 1-3, Start date: 01/16/19 12:59:00 CDT Hydralazine 2019-0 No 10 mg, Anthony litzy 01-16 Route: l 17:59: IVP, [place] 00 Q20Min, Dosing Weight 62.358, kg, PRN [...] moria e 01-16 Route: l 17:59: IVPB, [place] 00 ONCE, Dosing Weight 62.358, kg, PRN Nausea & Vomiting, Start date: 01/16/19 12:59:00 CDT Naloxone 2019-0 No 0.1 mg, Memori a 01-16 Route: l 17:59: SUB-Q, [place] 00 Q6H, Dosing Weight 62.358, kg, PRN Itching, Start date: 01/16/19 12:59:00 CDT, Duration: 30 day, Stop date: 02/15/19 12:58:00 CDT Meperidine 2019-0 No 12.5 mg, Mem oria 01-16 Route: l 17:59: IVP, [place] 00 Q30Min, Dosing Weight 62.358, kg, PRN Other -See Comment, For shivering, Start date: 01/16/19 12:59:00 CDT, Duration: 2 doses or times, Stop date: Limited # of times Ondansetron 2019-0 No 4 mg, Memor ia 01-16 Route: l 17:59: IVP, ONCE, Dosing Weight 62.358, kg, PRN Nausea & Vomiting, Start date: 01/16/19 12:59:00 CDT Flumazenil 2019-0 No 0.2 mg, Anthony litzy 01-16 Route: l 17:59: IVP, PRN, [place] Dosing Weight 62.358, kg, PRN Benzodiaze pine Reversal, Initial dose, Start date: 01/16/19 12:59:00 CDT, Duration: 30 day, Stop date: 02/15/19 12:58:00 CDT Fentanyl 2018-0 No 50 Memoria 01-16 microgram, l 17:59: Route: [place] 00 IVP, Q5Min, Dosing Weight 62.358, kg, PRN Pain Score 7-10, Priority: Routine, Start date: 01/16/19 12:59:00 CDT, Duration: 2 doses or times, Stop date: Limited # of times Hydromorpho 2019-0 No 0.5 mg, Mem oria ne 01-16 Route: l 17:59: IVP, [place] 00 Q5Min, Dosing Weight 62.358, kg, PRN [...] CDT Acetaminoph 2019-0 No 1,000 mg, M chrisria en 01-16 Route: PO, l 17:59: Drug form: [place] 00 TAB, ONCE, Dosing Weight 62.358, kg, [...] Memori a 01-16 Route: l 17:59: IVP, [place] 00 Q5Min, Dosing Weight 62.358, kg, PRN [...] ONCE, Stop date: 01/16/19 12:45:00 CDT Dextrose 0 No Route: IV, Mem oria 50% in 01-16 Stop date: l Water IV 17:45: 01/16/19 Maribell nn (ANES) 00 12:45:00 CDT phenylephri No Route: IV, Memoria ne (ANES) 01-16 Drug form: l 17:45: INJ, ONCE, [place] 00 Stop date: 01/16/19 12:45:00 CDT esmolol 2018-0 No Route: IV, Anthony litzy (ANES) 01-16 Drug form: l 17:45: INJ, ONCE, Stop date: 01/16/19 12:45:00 CDT Dextrose 2019-0 No Route: IV, Mem oria 50% in 01-16 Stop date: l Water IV 17:45: 01/16/19 Maribell nn (ANES) 00 12:45:00 CDT phenylephri 2018-0 No Route: IV, Memoria ne (ANES) 01-16 Drug form: l 17:45: INJ, ONCE, Stop date: 01/16/19 12:45:00 CDT esmolol 2018-0 No Route: IV, Anthony litzy (ANES) 01-16 Drug form: l 17:45: INJ, ONCE, Stop date: 01/16/19 12:45:00 CDT Dextrose 2018-0 No Route: IV, Mem oria 50% in 01-16 Stop date: l Water IV 17:45: 01/16/19 [place] nn (ANES) 00 12:45:00 CDT phenylephri 0 No Route: IV, Memoria ne (ANES) 01-16 Drug form: l 17:45: INJ, ONCE, Stop date: 01/16/19 12:45:00 CDT EPINEPHrine 2019-0 [...] ONCE, Stop date: 01/16/19 12:43:00 CDT calcium 2018-0 No Route: IV, Anthony litzy chloride 01-16 Drug form: l (ANES) 17:33: INJ, ONCE, Maribell Stop date: 01/16/19 12:33:00 CDT calcium 2018-0 No Route: IV, Anthony litzy chloride 01-16 Drug form: l (ANES) 17:33: INJ, ONCE, [place] Stop date: 01/16/19 12:33:00 CDT calcium 2018-0 No Route: IV, Anthony litzy chloride 01-16 Drug form: l (ANES) 17:33: INJ, ONCE, [place] Stop date: 01/16/19 12:33:00 CDT calcium 2018-0 No Route: IV, Anthony litzy chloride - Drug form: l (ANES) 17:33: INJ, ONCE, [place] Stop date: 01/16/19 12:33:00 CDT propofol 2019-0 [...] ONCE, Stop date: 01/16/19 11:52:00 CDT norepinephr 2019-0 No Route: IV, Memoria ine (ANES) 01-16 Drug form: l 16:52: INJ, ONCE, Stop date: 01/16/19 11:52:00 CDT lidocaine 2019-0 No Route: IV, Me moria (ANES) 01-16 Drug form: l 16:52: INJ, ONCE, Stop date: 01/16/19 11:52:00 CDT propofol 2019-0 No Route: IV, Mem oria (ANES) 01-16 Drug form: l 16:52: INJ, ONCE, Stop date: 01/16/19 11:52:00 CDT Amidate 2019-0 No Route: IV, Anthony litzy (ANES) 01-16 Drug form: l 16:52: INJ, ONCE, Stop date: 01/16/19 11:52:00 CDT norepinephr 2019-0 No Route: IV, Memoria ine (ANES) 01-16 [...] ONCE, Stop date: 01/16/19 11:52:00 CDT norepinephr 2019-0 No Route: IV, Memoria ine (ANES) 01-16 Drug form: l 16:52: INJ, ONCE, Stop date: 01/16/19 11:52:00 CDT lidocaine 2019-0 No Route: IV, Me moria (ANES) 01-16 Drug form: l 16:52: INJ, ONCE, Stop date: 01/16/19 11:52:00 CDT ondansetron 2019-0 No Route: IV, Memoria (ANES) 01-16 Drug form: l 16:42: INJ, ONCE, Stop date: 01/16/19 11:42:00 CDT ceFAZolin 2018-0 No Route: IV, Me moria (ANES) 01-16 Drug form: l 16:42: INJ, ONCE, Stop date: 01/16/19 11:42:00 CDT ondansetron 2019-0 No Route: IV, Memoria (ANES) 01-16 Drug form: l 16:42: INJ, ONCE, Stop date: 01/16/19 11:42:00 CDT ceFAZolin 2018-0 No Route: IV, Me moria (ANES) 01-16 Drug form: l 16:42: INJ, ONCE, Stop date: 01/16/19 11:42:00 CDT ondansetron 2019-0 No Route: IV, Memoria (ANES) 01-16 Drug form: l 16:42: INJ, ONCE, Stop date: 01/16/19 11:42:00 CDT ceFAZolin 2018-0 No Route: IV, Me moria (ANES) 01-16 Drug form: l 16:42: INJ, ONCE, Stop date: 01/16/19 11:42:00 CDT ondansetron 2018-0 No Route: IV, Memoria (ANES) 01-16 Drug [...] CDT, Stop date: 01/16/19 11:50:00 CDT vancomycin 2018-0 No Route: IV, M emoria (ANES) 1000 01-16 Drug form: l mg 15:50: INJ, Start date: 01/16/19 10:50:00 CDT, Stop date: 01/16/19 11:50:00 CDT vancomycin 2018-0 No Route: IV, M emoria (ANES) 1000 01-16 Drug form: l mg 15:50: INJ, Start date: 01/16/19 10:50:00 CDT, Stop date: 01/16/19 11:50:00 CDT vancomycin 2018-0 No Route: IV, M emoria (ANES) 1000 01-16 Drug form: l mg 15:50: INJ, Start date: 01/16/19 10:50:00 CDT, Stop date: 01/16/19 11:50:00 CDT Sodium 2018-0 No Route: IV, Memor ia Chloride 7- Total l 0.9% IV 15:46: Volume: [place] (ANES) 1000 00 1,000, mL Start date: 01/16/19 10:46:00 CDT, Stop date: 01/16/19 11:46:00 CDT Sodium 2019-0 No Route: IV, Memor ia Chloride 7-26 Total l 0.9% IV 15:46: Volume: [place] (ANES) 1000 00 1,000, mL Start date: 01/16/19 10:46:00 CDT, Stop date: 01/16/19 11:46:00 CDT Sodium 2019-0 No Route: IV, Memor ia Chloride 7-26 Total l 0.9% IV 15:46: Volume: [place] (ANES) 1000 00 1,000, mL Start date: 01/16/19 10:46:00 CDT, Stop date: 01/16/19 11:46:00 CDT Sodium 2019-0 No Route: IV, Memor ia Chloride 7-26 Total l 0.9% IV 15:46: Volume: [place] (ANES) 1000 00 1,000, mL Start date: 01/16/19 10:46:00 CDT, Stop date: 01/16/19 11:46:00 CDT Insulin 2019-0 No 5 unit, Memoria regular 7- Route: IV, l 15:40: ONCE, Dosing Weight 62.358, kg, Start date: 01/16/19 10:40:00 CDT, Stop date: 01/16/19 10:40:00 CDT Insulin 2019-0 No 5 unit, Memoria regular - Route: IV, l 15:40: ONCE, Dosing Weight 62.358, kg, Start date: 01/16/19 10:40:00 CDT, Stop date: 01/16/19 10:40:00 CDT Insulin 2019-0 No 5 unit, [facility] regular - Route: IV, l 15:40: ONCE, Dosing Weight 62.358, kg, Start date: 01/16/19 10:40:00 CDT, Stop date: 01/16/19 10:40:00 CDT Insulin 2019-0 No 5 unit, [facility] regular - Route: IV, l 15:40: ONCE, Dosing Weight 62.358, kg, Start date: 01/16/19 10:40:00 CDT, Stop date: 01/16/19 10:40:00 CDT Dextrose 2019-0 No 12.5 gm, [facility] - Route: l 15:39: IVPB, ONCE, Dosing Weight 62.358, kg, Start date: 01/16/19 10:39:00 CDT, Stop date: 01/16/19 10:39:00 CDT Dextrose 2019-0 No 12.5 gm, [facility] 7-26 Route: l 15:39: IVPB, [place] 00 ONCE, Dosing Weight 62.358, kg, Start date: 01/16/19 10:39:00 CDT, Stop date: 01/16/19 10:39:00 CDT Dextrose 2019-0 No 12.5 gm, [facility] 7-26 Route: l 15:39: IVPB, [place] 00 ONCE, Dosing Weight 62.358, kg, Start date: 01/16/19 10:39:00 CDT, Stop date: 01/16/19 10:39:00 CDT Dextrose 2019-0 No 12.5 gm, [facility] 7-26 Route: l 15:39: IVPB, [place] 00 ONCE, Dosing Weight 62.358, kg, Start date: [...] Rate: 25 l 0.9% IV 13:46: ml/hr, [place] 1,000 mL 00 Infuse over: 40 hr, [...] Rate: 25 l 0.9% IV 13:46: ml/hr, [place] 1,000 mL 00 Infuse over: 40 hr, [...] Rate: 25 l 0.9% IV 13:46: ml/hr, [place] 1,000 mL 00 Infuse over: 40 hr, Route: IV, Dosing Weight 62.358 kg, Total Volume: 1,000, Start date: 01/16/19 8:46:00 CDT, Duration: 1 day, Stop date: 01/17/19 8:45:00 CDT, 1.68, m2, 0 Calcium 2019-0 No 1,000 mL, [facility] Chloride 7-26 Rate: 25 l 0.0014 13:46: ml/hr, [place] MEQ/ML / 00 Infuse Potassium over: 40 [...] Rate: 25 l 0.9% IV 13:46: ml/hr, [place] 1,000 mL 00 Infuse over: 40 hr, Route: IV, Dosing Weight 62.358 kg, Total Volume: 1,000, Start date: 01/16/19 8:46:00 CDT, Duration: 1 day, Stop date: 01/17/19 8:45:00 CDT, 1.68, m2, 0 Vitamin B12 2019-0 Yes monthly, 0 [facility] 7-25 Refill(s) l 18:31: Vitamin B12 2019-0 Yes monthly, 0 [facility] 7-25 Refill(s) l 18:31: Vitamin B12 2019-0 Yes monthly, 0 [facility] 7-25 Refill(s) l 18:31: Vitamin B12 2019-0 Yes monthly, 0 [facility] 7-25 Refill(s) l 18:31: [place] 00 allopurinol 2019-0 Yes 100 mg = 1 [facility] 100 mg oral 7-25 tab, PO, l tablet 18:30: Daily, # [place] 00 90 tab, 1 Refill(s) Aspirin 81 2019- Yes 81 mg = 1 Me moria MG Chewable 7-25 tab, PO, l Tablet 18:30: Daily, [place] 00 tab, 0 Refill(s) 24 HR 2019- No 30 mg = 1 [facility] Nifedipine 7-25 tab, PO, l 30 MG 18:30: Daily, # [place] Extended 00 30 tab, 0 Release Refill(s) Tablet [Nifedical] allopurinol 2019- Yes 100 mg = 1 [facility] 100 mg oral 7-25 tab, PO, l tablet 18:30: Daily, # [place] 00 90 tab, 1 Refill(s) Aspirin 81 2019- Yes 81 mg = 1 Me [facility] MG Chewable 7-25 tab, PO, l Tablet 18:30: Daily, [place] 00 tab, 0 Refill(s) 24 HR 2019- No 30 mg = 1 [facility] Nifedipine 7-25 tab, PO, l 30 MG 18:30: Daily, # [place] Extended 00 30 tab, 0 Release Refill(s) Tablet [Nifedical] allopurinol Yes 100 mg = 1 [facility] 100 mg oral 7-25 tab, PO, l tablet 18:30: Daily, # [place] 00 90 tab, 1 Refill(s) Aspirin 81 2019-0 Yes 81 mg = 1 Me [facility] MG Chewable 7-25 tab, PO, l Tablet 18:30: Daily, [place] 00 tab, 0 Refill(s) 24 HR 2019 No 30 mg = 1 [facility] Nifedipine 7-25 tab, PO, l 30 MG 18:30: Daily, # [place] Extended 00 30 tab, 0 Release Refill(s) Tablet [Nifedical] allopurinol Yes 100 mg = 1 [facility] 100 mg oral 7-25 tab, PO, l tablet 18:30: Daily, # [place] 00 90 tab, 1 Refill(s) Aspirin 81 2019-0 Yes 81 mg = 1 Me mor[facility] MG Chewable 7-25 tab, PO, l Tablet 18:30: Daily, [place] 00 tab, 0 Refill(s) 24 HR 2019 No 30 mg = 1 [facility] Nifedipine 7-25 tab, PO, l 30 MG 18:30: Daily, # [place] Extended 00 30 tab, 0 Release Refill(s) Tablet [Nifedical] paricalcito Yes 1 [facility] a l 0.001 MG 7-25 microgram l Oral 18:29: = 1 cap, [place] Capsule 00 PO, Daily, # 30 cap, 0 Refill(s) levothyroxi Yes 50 [facility] a ne 50 mcg 7-25 microgram l (0.05 mg) 18:29: = 1 tab, Herm vin oral tablet 00 PO, Daily, # 30 tab, 0 Refill(s) paricalcito Yes 1 [facility] a l 0.001 MG 7-25 microgram l Oral 18:29: = 1 cap, [place] Capsule 00 PO, Daily, # 30 cap, 0 Refill(s) levothyroxi Yes 50 [facility] a ne 50 mcg 7-25 microgram l (0.05 mg) 18:29: = 1 tab, Herm vin oral tablet 00 PO, Daily, # 30 tab, 0 Refill(s) paricalcito Yes 1 [facility] a l 0.001 MG 7-25 microgram l Oral 18:29: = 1 cap, [place] Capsule 00 PO, Daily, # 30 cap, [...] # 30 tab, 0 Refill(s) Ferate 256 2018-0 Yes 256 mg = 1 M emoria mg (28 mg 7-25 tab, PO, l elemental 18:28: Daily, 0 Herm vin iron) oral 00 Refill(s) tablet liothyronin Yes 5 [facility] a e 5 mcg 7-25 microgram l oral tablet 18:28: = 1 tab, [place] 00 PO, Daily, # 30 tab, 0 Refill(s) Ferate 256 2018-0 Yes 256 mg = 1 M emoria mg (28 mg 7-25 tab, PO, l elemental 18:28: Daily, 0 Herm vin iron) oral 00 Refill(s) tablet liothyronin 0 Yes 5 [facility] a e 5 mcg 7-25 microgram l oral tablet 18:28: = 1 tab, [place] 00 PO, Daily, # 30 tab, 0 Refill(s) Ferate 256 2019-0 Yes 256 mg = 1 M emoria [...] PO, l oral tablet 18:27: Bedtime, # [place] 00 30 tab, 0 Refill(s) Hydralazine Yes 100 mg = 1 [facility] Hydrochlori 7-25 tab, PO, l de 100 MG 18:27: TID, # 90 Her cardenas Oral Tablet 00 tab, 3 Refill(s) atorvastati Yes 40 mg = 1 M emoria n 40 mg 7-25 tab, PO, l oral tablet 18:27: Bedtime, # [place] 00 30 tab, 0 Refill(s) Hydralazine Yes 100 mg = 1 [facility] Hydrochlori 7-25 tab, PO, l de 100 MG 18:27: TID, # 90 Her cardenas Oral Tablet 00 tab, 3 Refill(s) atorvastati Yes 40 mg = 1 M emoria n 40 mg 7-25 tab, PO, l oral tablet 18:27: Bedtime, # [place] 00 30 tab, 0 Refill(s) Clonidine 2019 Yes 0.3 mg = 1 Me [facility] Hydrochlori 7-25 tab, PO, l de 0.3 MG 18:25: TID, # 60 Her cardenas Oral Tablet 00 tab, 1 Refill(s) Clonidine Yes 0.3 mg = 1 Me [facility] Hydrochlori 7-25 tab, PO, l de 0.3 MG 18:25: TID, # 60 Her cardenas Oral Tablet 00 tab, 1 Refill(s) Clonidine Yes 0.3 mg = 1 Me [facility] Hydrochlori 7-25 tab, PO, l de 0.3 MG 18:25: TID, # 60 Her cardenas Oral Tablet 00 tab, 1 Refill(s) Clonidine Yes 0.3 mg = 1 [...] 1000 mg Product Wasted: ___ mg Vancomycin 2019-0 No 2001 mg: Me moria 7-25 infuse l 18:00: over 2.5 [place] 00 hours For adult patients only: Round to nearest 250 mg per Medical Staff approval MEDICATION WASTE Product Size: 1000 mg Product Wasted: ___ mg Ancef + 2018-0 No Notes: [facility] sterile 7-25 (Same As: l water 20 mL 18:00: Ancef, Herm vin 00 Kefzol) MEDICATION WASTE Product Size: 1000 mg Product Wasted: ___ mg Vancomycin 2019-0 No 2001 mg: Me moria 7-25 infuse [...] 1000 mg Product Wasted: ___ mg Vancomycin 2018- No 2001 mg: Me moria 7-25 infuse [...] Size: 1000 mg Product Wasted: ___ mg cloniDINE Yes .3mg Take 0.3 Univ ers (CATAPRES) 7-08 mg by ity of 0.3 mg 19:53: mouth 3 [place] tablet 14 (three) Medical times Branch daily. hydralAZINE Yes 100mg Take 100 U nivers (APRESOLINE 7-08 mg by ity of ) 50 mg 19:53: mouth [place] tablet 14 every 8 Medical (eight) Branch hours. atorvastati Yes 40mg Take 40 mg Univers n (LIPITOR) 7-08 by mouth ity of 40 mg 19:53: at [place] tablet 14 bedtime. Medical Branch Ferrous Yes Take by Univers Gluconate 7-08 mouth. ity of (IRON HIGH 19:53: [place] POTENCY) 14 Medical 240 mg (27 Branch mg iron) tablet liothyronin Yes 5ug Take 5 mcg Univers e (CYTOMEL) 7-08 by mouth ity of 5 mcg 19:53: daily. [place] tablet 14 Medical Branch levothyroxi Yes 50ug Take 50 Uni vers ne 7-08 mcg by ity of (SYNTHROID) 19:53: mouth [place] 50 mcg 14 every Medical tablet morning. Branch paricalcito Yes 1ug Take 1 mcg Univers l (ZEMPLAR) 7-08 by mouth ity of 1 mcg 19:53: daily. [place] capsule 14 Medical Branch allopurinol 2019-0 Yes 100mg Take 100 U nivers (ZYLOPRIM) 7-08 mg by ity of 100 mg 19:53: mouth [place] tablet 14 daily. Medical Branch ASPIRIN 2019-0 Yes Take by Univers (ASPIR-81 7-08 mouth. ity of ORAL) 19:53: [place] 14 Medical Branch traMADOL 2018-0 Yes 50mg Take 50 mg Uni vers (ULTRAM) 50 7-08 by mouth ity of mg tablet 19:53: every 6 [place] 14 (six) Medical hours as Branch needed. furosemide 2019-0 Yes 40mg Take 40 mg U nivers (LASIX) 40 7-08 by mouth ity o f mg tablet 19:53: [place]. [place] 14 [facility] cloniDINE 2019-0 Yes .3mg Take 0.3 Univ ers (CATAPRES) 7-08 mg by ity of 0.3 mg 14:53: mouth 3 [place] tablet 14 (three) Medical times Branch daily. hydralAZINE 0 Yes 100mg Take 100 U nivers (APRESOLINE 7-08 mg by ity of ) 50 mg 14:53: mouth [place] tablet 14 every 8 Medical (eight) Branch hours. atorvastati 0 Yes 40mg Take 40 mg Univers n (LIPITOR) 7-08 by mouth ity of 40 mg 14:53: at [place] tablet 14 bedtime. Medical Branch Ferrous 2019-0 Yes Take by Univers Gluconate 7-08 mouth. ity of (IRON HIGH 14:53: [place] POTENCY) 14 Medical 240 mg (27 Branch mg iron) tablet liothyronin 2019-0 Yes 5ug Take 5 mcg Univers e (CYTOMEL) 7-08 by mouth ity of 5 mcg 14:53: daily. [place] tablet 14 Medical Branch levothyroxi 2019-0 Yes 50ug Take 50 Uni vers ne 7-08 mcg by ity of (SYNTHROID) 14:53: mouth [place] 50 mcg 14 every Medical tablet morning. Branch paricalcito 2019-0 Yes 1ug Take 1 mcg Univers l (ZEMPLAR) 7-08 by mouth ity of 1 mcg 14:53: daily. [place] capsule 14 Medical Branch allopurinol 2019-0 Yes 100mg Take 100 U nivers (ZYLOPRIM) 7-08 mg by ity of 100 mg 14:53: mouth [place] tablet 14 daily. Medical Branch ASPIRIN 2018-0 Yes Take by Univers (ASPIR-81 7-08 mouth. ity of ORAL) 14:53: [place] 14 Medical Branch traMADOL 2018- Yes 50mg Take 50 mg Uni vers (ULTRAM) 50 7-08 by mouth ity of mg tablet 14:53: every 6 [place] 14 (six) Medical hours as Branch needed. furosemide 2018- Yes 40mg Take 40 mg U nivers (LASIX) 40 7-08 by mouth ity o f mg tablet 14:53: [place]. [place] 14 [facility] Polyethylen 2015-06 Yes 1{packe Take 1 U nivers e Glycol 2-06 t} Packet by ity of 3350 00:00: mouth [place] (MIRALAX) 00 daily. Medical 17 gram Branch powder Polyethylen 2015-06 Yes 1{packe Take 1 U nivers e Glycol 2-06 t} Packet by ity of 3350 00:00: mouth [place] (MIRALAX) 00 daily. [facility] 17 gram Branch powder Immunizations Ordered Immunization Filled Immunization Date Status Commen ts Source Name Name influenza, seasonal 2022-03-28 Completed vaccine, 00:00:00 quadrivalent, adjuvanted, .5mL dose, preservative-free influenza, seasonal 2022-03-28 Completed vaccine, 00:00:00 quadrivalent, adjuvanted, .5mL dose, preservative-free Moderna COVID-19 2022-01-18 Completed Vaccine 00:00:00 Moderna COVID-19 2022-01-18 Completed Vaccine 00:00:00 Moderna COVID-19 2021-03-13 Completed Vaccine 00:00:00 Moderna COVID-19 2021-03-13 Completed Vaccine 00:00:00 Moderna COVID-19 2020-08-30 Completed Vaccine 00:00:00 Moderna COVID-19 2020-08-30 Completed Vaccine 00:00:00 [id number] 2020-08-27 Completed Anthony rial NA-[id number]<chávez 00:00:00 Herm vin p>1</sup> [id number] 2020-08-27 Completed Anthony rial NA-[id number]<chávez 00:00:00 Herm vin p>1</sup> [id number] 2020-08-27 Completed Anthony rial NA-[id number]<chávez 00:00:00 Herm vin p>1</sup> [id number] 2020-08-27 Completed Anthony rial NA-[id number]<chávez 00:00:00 Herm vin p>1</sup> Pfizer COVID-19 2020-08-01 Completed Vaccine 00:00:00 Pfizer COVID-19 2020-08-01 Completed Vaccine 00:00:00 Influenza, seasonal, 2018-07-08 Completed inj 00:00:00 Influenza, seasonal, 2018-07-08 Completed inj 00:00:00 Influenza, seasonal, 2016-04-18 Completed inj 00:00:00 Influenza, seasonal, 2016-04-18 Completed inj 00:00:00 Influenza, seasonal, 2014-01-19 Completed inj 00:00:00 Influenza, seasonal, 2014-01-19 Completed inj 00:00:00 Vital Signs Vital Name Observation Time Observation Value Comments Source WEIGHT 2020-12-31 20:30:00 58.968 kg HEIGHT 2020-12-27 07:43:00 160 cm WEIGHT 2020-12-27 07:43:00 58.968 kg HEIGHT 2020-12-15 08:54:00 160 cm WEIGHT 2020-12-15 08:54:00 58.968 kg HEIGHT 2021-02-06 01:37:00 160 cm WEIGHT 2021-02-06 01:37:00 62.7 kg Systolic blood 2022-07-12 01:56:00 158 mm[Hg] Univer sity of pressure [facility] Diastolic blood 2022-07-12 01:56:00 64 mm[Hg] Unive rsity of pressure [facility] Heart rate 2022-07-12 01:56:00 72 /min [facility] Respiratory rate 2022-07-12 01:56:00 16 /[facility] in 2022-07-12 01:56:00 100 /min [facility] blood by [facility] Pulse oximetry Branch Body temperature 2022-07-11 23:43:00 36.83 [facility] Body weight 2022-07-11 23:43:[address] [facility] BMI 2022-07-11 23:43:00 25.69 kg/m2 [facility] HEIGHT 2021-02-06 01:37:00 160 cm WEIGHT 2021-02-06 01:37:00 62.7 kg WEIGHT 2020-12-31 20:30:00 58.968 kg HEIGHT 2020-12-27 07:43:00 160 cm WEIGHT 2020-12-27 07:43:00 58.968 kg HEIGHT 2020-12-15 08:54:00 160 cm WEIGHT 2020-12-15 08:54:00 58.968 kg BP Systolic 2022-03-28 14:21:00 88 mm[Hg] BP Diastolic 2022-03-28 14:21:00 53 mm[Hg] Weight Measured 2022-03-28 14:21:00 138.30 pounds Height Measured 2022-03-28 14:21:00 63.00 inches Body Temperature 2022-03-28 14:21:00 98.30 degrees Heart Rate 2022-03-28 14:21:00 56.00 /min Respiratory Rate 2022-03-28 14:21:00 BP Systolic 2022-03-28 13:48:00 88 mm[Hg] BP Diastolic 2022-03-28 13:48:00 53 mm[Hg] Weight Measured 2022-03-28 13:48:00 138.30 pounds Height Measured 2022-03-28 13:48:00 63.00 inches Body Temperature 2022-03-28 13:48:00 98.30 degrees Heart Rate 2022-03-28 13:48:00 56.00 /min Respiratory Rate 2022-03-28 13:48:00 BP Systolic 2021-12-27 15:03:00 101 mm[Hg] BP Diastolic 2021-12-27 15:03:00 62 mm[Hg] Weight Measured 2021-12-27 15:03:00 135.80 pounds Height Measured 2021-12-27 15:03:00 63.00 inches Body Temperature 2021-12-27 15:03:00 98.20 degrees Heart Rate 2021-12-27 15:03:00 66.00 /min Respiratory Rate 2021-12-27 15:03:00 BP Systolic 2021-06-07 11:22:00 136 mm[Hg] BP Diastolic 2021-06-07 11:22:00 73 mm[Hg] Weight Measured 2021-06-07 11:22:00 Height Measured 2021-06-07 11:22:00 Body Temperature 2021-06-07 11:22:00 97.60 degrees Heart Rate 2021-06-07 11:22:00 71.00 /min Respiratory Rate 2021-06-07 11:22:00 Systolic (mm Hg) 2021-04-28 18:12:00 Anthony rial [place] Diastolic (mm Hg) 2021-04-28 18:12:00 Mem orial [place] Heart Rate 2021-04-28 18:12:00 [facility] [place] Respitory Rate 2021-04-28 18:12:00 Memori al [place] BP Systolic 2021-03-09 11:49:00 143 mm[Hg] BP Diastolic 2021-03-09 11:49:00 71 mm[Hg] Weight Measured 2021-03-09 11:49:00 145.00 pounds Height Measured 2021-03-09 11:49:00 63.00 inches Body Temperature 2021-03-09 11:49:00 97.50 degrees Heart Rate 2021-03-09 11:49:00 58.00 /min Respiratory Rate 2021-03-09 11:49:00 Systolic (mm Hg) 2021-01-31 19:10:00 Anthony rial [place] Diastolic (mm Hg) 2021-01-31 19:10:00 Mem orial [place] Heart Rate 2021-01-31 19:10:00 [facility] [place] Respitory Rate 2021-01-31 19:10:00 Memori al [place] Systolic blood 2021-01-03 15:59:00 149 mm[Hg] [facility] Diastolic blood 2021-01-03 15:59:00 66 mm[Hg] [facility] Heart rate 2021-01-03 15:59:00 60 /min [facility] Body temperature 2021-01-03 15:59:00 36.44 Torri [facility] Respiratory rate 2021-01-03 15:59:00 18 /min [facility] Oxygen saturation in 2021-01-03 15:59:00 100 /min [facility] Arterial blood by Medical Ce nter Pulse oximetry Body weight 2020-12-31 20:30:00 58.968 kg [facility] BMI 2020-12-31 20:30:00 23.03 kg/m2 [facility] Body height 2020-12-27 07:43:00 160 cm [facility] Systolic (mm Hg) 2020-10-31 14:51:00 Anthony rial [place] Diastolic (mm Hg) 2020-10-31 14:51:00 Mem orial [place] Heart Rate 2020-10-31 14:51:00 [facility] [place] Respitory Rate 2020-10-31 14:51:00 Memori al [place] Height 2020-10-31 14:51:00 160.02 cm [facility] [place] Weight 2020-10-31 14:51:00 [facility] [place] BMI Calculated 2020-10-31 14:51:00 Memori al [place] Systolic (mm Hg) 2020-07-20 19:53:00 Anthony rial [place] Diastolic (mm Hg) 2020-07-20 19:53:00 Mem orial [place] Heart Rate 2020-07-20 19:53:00 [facility] [place] Respitory Rate 2020-07-20 19:53:00 Memori al [place] Height 2020-07-20 19:53:00 160.02 cm [facility] [place] Weight 2020-07-20 19:53:00 [facility] [place] BMI Calculated 2020-07-20 19:53:00 Memori al [place] Systolic (mm Hg) 2020-05-26 20:30:00 Anthony rial [place] Diastolic (mm Hg) 2020-05-26 20:30:00 Mem orial [place] Systolic (mm Hg) 2020-05-26 20:00:00 Anthony rial [place] Diastolic (mm Hg) 2020-05-26 20:00:00 Mem orial [place] Respitory Rate 2020-05-26 19:45:00 Memori al [place] Systolic (mm Hg) 2020-05-26 19:45:00 Anthony rial [place] Diastolic (mm Hg) 2020-05-26 19:45:00 Mem orial [place] Respitory Rate 2020-05-26 19:30:00 Memori al [place] Respitory Rate 2020-05-26 19:15:00 Memori al [place] Height 2020-05-26 15:59:00 160.02 cm [facility] [place] Weight 2020-05-26 15:59:00 [facility] [place] BMI Calculated 2020-05-26 15:59:00 Memori al [place] Height 2020-05-25 21:05:00 160.02 cm [facility] [place] Weight 2020-05-25 21:05:00 [facility] [place] BMI Calculated 2020-05-25 21:05:00 Memori al [place] Respitory Rate 2020-05-17 21:00:00 Memori al [place] Systolic (mm Hg) 2020-05-17 21:00:00 Anthony rial [place] Diastolic (mm Hg) 2020-05-17 21:00:00 Mem orial [place] Respitory Rate 2020-05-17 20:00:00 Memori al [place] Systolic (mm Hg) 2020-05-17 20:00:00 Anthony rial [place] Diastolic (mm Hg) 2020-05-17 20:00:00 Mem orial [place] Respitory Rate 2020-05-17 19:45:00 Memori al [place] Systolic (mm Hg) 2020-05-17 19:45:00 Anthony rial [place] Diastolic (mm Hg) 2020-05-17 19:45:00 Mem orial [place] Height 2020-05-17 16:00:00 160.02 cm [facility] [place] Weight 2020-05-17 16:00:00 [facility] [place] BMI Calculated 2020-05-17 16:00:00 Memori al [place] Temperature Oral (F) 2020-04-08 21:41:00 97.9 F [facility] [place] Systolic (mm Hg) 2020-04-08 21:41:00 Anthony rial [place] Diastolic (mm Hg) 2020-04-08 21:41:00 Mem orial [place] Respitory Rate 2020-04-08 16:00:00 Memori al [place] Systolic (mm Hg) 2020-04-08 16:00:00 Anthony rial [place] Diastolic (mm Hg) 2020-04-08 16:00:00 Mem orial [place] Temperature Oral (F) 2020-04-08 16:00:00 98.0 F [facility] [place] Respitory Rate 2020-04-08 15:45:00 Memori al [place] Systolic (mm Hg) 2020-04-08 15:45:00 Anthony rial [place] Diastolic (mm Hg) 2020-04-08 15:45:00 Mem orial [place] Respitory Rate 2020-04-08 15:30:00 Memori al [place] Temperature Oral (F) 2020-04-08 12:30:00 98.4 F [facility] [place] Heart Rate 2020-04-08 04:31:00 [facility] [place] Heart Rate 2020-04-07 23:22:00 [facility] [place] Heart Rate 2020-04-06 12:22:00 [facility] [place] Height 2020-04-06 02:48:00 170.18 cm [facility] [place] Weight 2020-04-06 02:48:00 [facility] [place] BMI Calculated 2020-04-06 02:48:00 Memori al [place] Height 2020-04-05 23:14:00 170.18 cm [facility] [place] BMI Calculated 2020-04-05 23:14:00 Mem[facility] al [place] Weight 2020-04-05 23:14:00 [facility] [place] BP Systolic 2020-01-12 08:17:00 BP Diastolic 2020-01-12 08:17:00 Weight Measured 2020-01-12 08:17:00 145.00 pounds Height Measured 2020-01-12 08:17:00 63.00 inches Body Temperature 2020-01-12 08:17:00 Heart Rate 2020-01-12 08:17:00 Respiratory Rate 2020-01-12 08:17:00 BP Systolic 2019-10-13 08:20:00 127 mm[Hg] BP Diastolic 2019-10-13 08:20:00 60 mm[Hg] Weight Measured 2019-10-13 08:20:00 145.00 pounds Height Measured 2019-10-13 08:20:00 63.00 inches Body Temperature 2019-10-13 08:20:00 98.30 degrees Heart Rate 2019-10-13 08:20:00 70.00 /min Respiratory Rate 2019-10-13 08:20:00 16.00 /min BP Systolic 2019-07-09 10:43:00 124 mm[Hg] BP Diastolic 2019-07-09 10:43:00 68 mm[Hg] Weight Measured 2019-07-09 10:43:00 128.50 pounds Height Measured 2019-07-09 10:43:00 63.00 inches Body Temperature 2019-07-09 10:43:00 98.30 degrees Heart Rate 2019-07-09 10:43:00 68.00 /min Respiratory Rate 2019-07-09 10:43:00 Systolic (mm Hg) 2019-03-10 17:45:00 Anthony rial [place] Diastolic (mm Hg) 2019-03-10 17:45:00 Mem orial [place] Systolic (mm Hg) 2019-03-10 17:30:00 Anthony rial [place] Diastolic (mm Hg) 2019-03-10 17:30:00 Mem orial [place] Heart Rate 2019-03-10 17:07:00 [facility] [place] Respitory Rate 2019-03-10 17:07:00 Memori al [place] Systolic (mm Hg) 2019-03-10 17:07:00 Anthony rial [place] Diastolic (mm Hg) 2019-03-10 17:07:00 Mem orial [place] Heart Rate 2019-03-10 16:15:00 [facility] [place] Respitory Rate 2019-03-10 15:30:00 Memori al [place] Heart Rate 2019-03-10 15:30:00 [facility] [place] Heart Rate 2019-01-18 16:07:00 [facility] [place] Temperature Oral (F) 2019-01-18 16:07:00 98.2 F [facility] [place] Respitory Rate 2019-01-18 16:07:00 Mem[facility] [place] Systolic (mm Hg) 2019-01-18 16:07:00 Anthony rial [place] Diastolic (mm Hg) 2019-01-18 16:07:00 Mem orial [place] Respitory Rate 2019-01-18 14:03:00 Mem[facility] al [place] Systolic (mm Hg) 2019-01-18 12:32:00 Anthony rial [place] Diastolic (mm Hg) 2019-01-18 12:32:00 Mem orial [place] Temperature Oral (F) 2019-01-18 12:32:00 98.2 F [facility] [place] Heart Rate 2019-01-18 12:32:00 [facility] [place] Respitory Rate 2019-01-18 12:32:00 Memori al [place] Temperature Oral (F) 2019-01-18 08:54:00 98.4 F [facility] [place] Heart Rate 2019-01-18 08:54:00 [facility] [place] Systolic (mm Hg) 2019-01-18 08:54:00 Anthony rial [place] Diastolic (mm Hg) 2019-01-18 08:54:00 Mem orial [place] BMI Calculated 2019-01-16 13:43:00 [facility] [place] Weight 2019-01-16 13:43:00 [facility] [place] Height 2019-01-16 13:43:00 160.02 cm [facility] [place] Weight 2019-01-15 17:57:00 [facility] [place] BMI Calculated 2019-01-15 17:57:00 [facility] [place] Height 2019-01-15 17:57:00 162.56 cm [facility] [place] Temperature Oral (F) 2012-05-19 16:43:00 96.3 F [facility] [place] Heart Rate 2012-05-19 16:43:00 [facility] [place] Respitory Rate 2012-05-19 16:43:00 Memori al [place] Systolic (mm Hg) 2012-05-19 16:43:00 Anthony rial [place] Diastolic (mm Hg) 2012-05-19 16:43:00 Mem orial [place] Weight 2012-05-19 16:43:00 [facility] [place] Height 2012-05-19 16:43:00 160.02 cm [facility] [place] Temperature Oral (F) 2012-01-28 14:02:00 97.8 F [facility] [place] Systolic (mm Hg) 2012-01-28 14:02:00 Anthony rial [place] Heart Rate 2012-01-28 14:02:00 [facility] [place] Respitory Rate 2012-01-28 14:02:00 Memori al [place] Diastolic (mm Hg) 2012-01-28 14:02:00 Mem orial [place] Weight 2012-01-28 14:02:00 [facility] [place] Height 2012-01-28 14:02:00 160.02 cm [facility] [place] Respitory Rate 2012-01-10 14:26:00 [facility] [place] Heart Rate 2012-01-10 14:26:00 [facility] [place] Temperature Oral (F) 2012-01-10 14:26:00 98.3 F Kareem Hanley Diastolic (mm Hg) 2012-01-10 14:26:00 Pat Hanley Systolic (mm Hg) 2012-01-10 14:26:00 Anthony Hanley Weight 2012-01-10 14:26:00 [facility] 2012-01-10 14:26:00 160.02 cm [facility] Procedures Procedure Date / Time Performing Clinician Source Performed XR HIPS 3 VW RIGHT 2022-07-12 00:44:47 Katelyn Montoya [facility] CONSENT/REFUSAL FOR 2022-07-11 23:27:12 Doctor Unassigned, [facility] DIAGNOSIS AND TREATMENT [facility] XR CERVICAL SPINE AP 2021-05-10 21:08:13 Gianna Barnett [facility] LATERAL FLEXION AND EXTENSION [id number] 2021-02-15 00:00:00 [facility] [id number] 2021-02-15 00:00:00 [facility] [id number] 2021-02-15 00:00:00 [facility] XR CERVICAL SPINE AP 2021-02-02 18:35:55 Gianna Barnett [facility] LATERAL FLEXION AND EXTENSION [id number] 2021-01-08 00:00:00 [facility] [id number] 2021-01-08 00:00:00 [facility] [id number] 2021-01-08 00:00:00 [facility] [id number] 2021-01-08 00:00:00 [facility] [id number] 2021-01-08 00:00:00 [facility] [id number] 2021-01-08 00:00:00 [facility] [id number] 2021-01-08 00:00:00 [facility] [id number] 2021-01-08 00:00:00 [facility] [id number] 2021-01-08 00:00:00 [facility] [id number] 2021-01-08 00:00:00 [facility] [id number] 2021-01-08 00:00:00 [facility] [id number] 2021-01-08 00:00:00 [facility] [id number] 2021-01-08 00:00:00 [facility] CT SPINE CERVICAL 2021-01-03 11:09:00 Debbie Holguin [facility] WITHOUT IV CONTRAST Center XR CHEST 1 VIEW 2021-01-03 07:35:00 Sarah Allen [facility] PORTABLE / BEDSIDE Center CBC W/PLT COUNT & AUTO 2021-01-03 05:05:00 Sarah Allen [facility] DIFFERENTIAL Center COMPREHENSIVE METABOLIC 2021-01-03 05:05:00 Sarah Allen [facility] PANEL Center MAGNESIUM 2021-01-03 05:05:00 Sarah Allen [facility] [id number] 2021-01-03 00:00:00 [facility] [id number] 2021-01-03 00:00:00 [facility] [id number] 2021-01-03 00:00:00 [facility] [id number] 2021-01-03 00:00:00 [facility] [id number] 2021-01-03 00:00:00 [facility] [id number] 2021-01-03 00:00:00 [facility] [id number] 2021-01-03 00:00:00 [facility] [id number] 2021-01-03 00:00:00 [facility] [id number] 2021-01-03 00:00:00 [facility] [id number] 2021-01-03 00:00:00 [facility] [id number] 2021-01-03 00:00:00 [facility] [id number] 2021-01-03 00:00:00 [facility] [place] [id number] 2021-01-03 00:00:00 [facility] [place] [id number] 2021-01-03 00:00:00 [facility] [place] [id number] 2021-01-03 00:00:00 [facility] [id number] 2021-01-03 00:00:00 [facility] [place] [id number] 2021-01-03 00:00:00 [facility] [place] [id number] 2021-01-03 00:00:00 [facility] [place] [id number] 2021-01-03 00:00:00 [facility] [place] [id number] 2021-01-03 00:00:00 [facility] [place] [id number] 2021-01-03 00:00:00 [facility] [id number] 2021-01-03 00:00:00 [facility] [id number] 2021-01-03 00:00:00 [facility] [id number] 2021-01-03 00:00:00 [facility] [place] [id number] 2021-01-03 00:00:00 [facility] [place] [id number] 2021-01-03 00:00:00 [facility] [id number] 2021-01-03 00:00:00 [facility] [id number] 2021-01-03 00:00:00 [facility] [id number] 2021-01-03 00:00:00 [facility] CBC W/PLT COUNT & AUTO 2021-01-02 05:45:00 Ezio Terry [facility] DIFFERENTIAL Center BASIC METABOLIC PANEL 2021-01-02 05:45:00 Ezio Terry [facility] (7) [place] BASIC METABOLIC PANEL 2021-01-01 05:17:00 Moe Mcbride [facility] (7) Center PHOSPHORUS 2021-01-01 05:17:00 [facility] W[facility]T [facility] & AUTO 2021-01-01 05:17[facility] [place] APTT 2020-12-31 14:30:00 [facility],CERVICAL 2020-12-31 14:22:00 Gianna Barnett [facility] DECOMPRESSION SPINAL Center CORD BASIC METABOLIC PANEL 2020-12-31 06:41:[facility] 2020-12-31 05:29:00 [facility] CBC W/PLT COUNT & AUTO 2020-12-31 05:29:00 [facility] IR CENTRAL VENOUS 2020-12-30 14:00:00 Ezio Terry [facility] CATHETER PLACEMENT Center (JUGULAR OR FEMORAL) XR CHEST 1 VIEW 2020-12-30 05:52:00 Sarah Allen [facility] PORTABLE / BEDSIDE Center PHOSPHORUS 2020-12-30 04:42:00 Rae [facility] CBC W/PLT COUNT & AUTO 2020-12-30 04:42:00 Rae [facility] DIFFERENTIAL Center COMPREHENSIVE METABOLIC 2020-12-30 04:42:00 Sarah Allen [facility] PANEL Center MAGNESIUM 2020-12-30 04:42:00 Sarah Allen [facility] CT SPINE CERVICAL 2020-12-29 13:47:00 [facility]AST Center HC ARTERIAL DOPPLER ARM 2020-12-29 08:53:00 Ezio [facility] UNI [place] HC VENOUS DOPPLER EXT 2020-12-29 08:00:00 Ezio [facility] HEPATITIS B SURFACE 2020-12-29 04:24:00 [facility] 2020-12-29 04:24:00 Vellanki, Vinitha [facility] ANTIBODY Center XR CHEST 1 VIEW 2020-12-28 11:21:00 [facility] Center XR HIP 2 VIEWS LEFT 2020-12-28 10:10:00 Debbie Holguin [facility] COMPREHENSIVE METABOLIC 2020-12-28 04:10:00 [facility] PANEL Center CBC W/PLT COUNT & AUTO 2020-12-28 04:10:00 aSrah Allen [facility] DIFFERENTIAL Center MAGNESIUM 2020-12-28 04:10:00 Sarah Allen [facility] FL FLUORO NON-SPECIFIC 2020-12-27 12:50:00 Gianna Barnett [facility] UP TO 1 HOUR Center ABORH, MANUAL 2020-12-27 11:27:00 Lauar Mcdonald [facility] Adela [place] LAMINECTOMY,CERVICAL 2020-12-27 09:35:00 Gianna Barnett [facility] FACETECTOMY/ Center FORAMINOTOMY/ DECOMPRESSION ALLOGRAFT,FOR SPINE 2020-12-27 09:35:00 Zoey [facility] SURGERY Center TYPE AND SCREEN, 2020-12-27 08:42:00 [facility] AUTOMATED Center PT/APTT 2020-12-27 08:42:00 Zoey [facility] POTASSIUM 2020-12-27 08:42:00 [facility] BASIC METABOLIC PANEL 2020-12-22 11:24:00 Gianna Barnett [facility] (7) Center CBC W/PLT COUNT & AUTO 2020-12-22 11:24:00 Gianna Barnett [facility] DIFFERENTIAL Center PT/APTT 2020-12-22 11:24:00 Zoey [facility] AUTHORIZATION FOR 2020-06-10 06:01:00 Doctor Unassigned, [facility] RELEASE OF PHI [facility] Colectomy [facility] Thyroidectomy [facility] Total hysterectomy [facility] Plan of Care Planned Activity Planned Date Details Comments Source Future Scheduled 2023-02-[address] [facility] Test 00:00:00 (Season Ended) [code = Medic al Center INFLUENZA VACCINE (Season Ended)] Future Scheduled 2022-09-27 65+ [facility]AL [facility] 04:46:03 VACCINE (1 - PCV) [code = 65+ PNEUMOCOCCAL VACCINE (1 - PCV)] Future Scheduled 2022-09-27 Hepatitis C screening [facility] Test 04:46:03 (procedure) [code = 292320236] Future Scheduled 2022-09-27 SHINGLES VACCINES (1 [facility] Test 04:46:03 of 2) [code = SHINGLES VACCINES (1 of 2)] Future Scheduled 2022-09-27 BREAST CANCER [facility] Test 04:46:03 SCREENING [code = BREAST CANCER SCREENING] Future Scheduled 2022-09-27 COLONOSCOPY SCREENING [facility] Test 04:46:03 [code = COLONOSCOPY SCREENING] Future Scheduled 2022-09-27 COVID-19 VACCINE (4 - [facility] Test 04:46:03 Booster) [code = COVID-19 VACCINE (4 - Booster)] Future Scheduled 2022-09-27 [facility]ZA VACCINE [facility] Test 04:46:03 [code = INFLUENZA VACCINE] Future Scheduled 2022-09-27 COLONOSCOPY SCREENING [facility] Test 04:46:03 [code = COLONOSCOPY SCREENING] Future Scheduled 2022-09-27 COVID-19 VACCINE (4 - [facility] Test 04:46:03 Booster) [code = COVID-19 VACCINE (4 - Booster)] Future Scheduled 2022-09-27 IN[facility]ZA VACCINE [facility] Test 04:46:03 [code = INFLUENZA VACCINE] Future Scheduled 2022-09-27 65+ [facility]CCAL [facility] Test 04:46:03 VACCINE (1 - PCV) [code = 65+ PNEUMOCOCCAL VACCINE (1 - PCV)] Future Scheduled 2022-09-27 Hepatitis C screening [facility] Test 04:46:03 (procedure) [code = 485731354] Future Scheduled 2022-09-27 SHINGLES VACCINES (1 [facility] Test 04:46:03 of 2) [code = SHINGLES VACCINES (1 of 2)] Future Scheduled 2022-09-27 BREAST CANCER [facility] Test 04:46:03 SCREENING [code = BREAST CANCER SCREENING] Future Scheduled 2022-06-[address] [facility] Test 00:00:00 (12+) [code = Medical Center DEPRESSION SCREENING (12+)] Future Scheduled 2022-06-24 FALLS RISK SCREENING [facility] Test 00:00:00 [code = FALLS RISK Medical C enter SCREENING] Future Scheduled 2022-03-15 HEPATITIS B VACCINES [facility] Test 04:19:36 (1 of 3 - 3-dose series) [code = HEPATITIS B VACCINES (1 of 3 - 3-dose series)] Future Scheduled 2022-03-15 65+ [facility]OCOCCAL [facility] Test 04:19:36 VACCINE (1 - PCV) [code = 65+ PNEUMOCOCCAL VACCINE (1 - PCV)] Future Scheduled 2022-03-15 Hepatitis C screening [facility] Test 04:19:36 (procedure) [code = 309386906] Future Scheduled 2022-03-15 SHINGLES VACCINES (1 [facility] Test 04:19:36 of 2) [code = SHINGLES VACCINES (1 of 2)] Future Scheduled 2022-03-15 BREAST CANCER [facility] Test 04:19:36 SCREENING [code = BREAST CANCER SCREENING] Future Scheduled 2022-03-15 COLONOSCOPY SCREENING [facility] Test 04:19:36 [code = COLONOSCOPY SCREENING] Future Scheduled 2022-03-15 COVID-19 VACCINE (4 - Me [facility] Test 04:19:36 Booster) [code = COVID-19 VACCINE (4 - Booster)] Future Scheduled 2022-03-15 INFLUENZA VACCINE [facility] Test 04:19:36 [code = INFLUENZA VACCINE] Future Scheduled 2021-12-[address] [facility] Test 00:00:00 Counseling and Medical Cente r Screening (12+) [code = Tobacco Cessation Counseling and Screening (12+)] Future Scheduled 2021-02-22 INFLUENZA VACCINE (#1[facility]:00[facility]00 [code = INFLUENZA Medical Ce nter VACCINE (#1)] Future Scheduled 2020-06-[address] [facility] Test 00:00:00 (12+) [code = Medical Center DEPRESSION SCREENING (12+)] Future Scheduled 2020-06-24 FALLS RISK SCREENING [facility] Test 00:00:00 [code = FALLS RISK Medical C enter SCREENING] Future Scheduled 2020-03-[address] [facility] Test 00:00:00 WELLNESS (YEAR 2 or Medical Center FIRST YEAR if no IPPE) [code = MEDICARE ANNUAL WELLNESS (YEAR 2 or FIRST YEAR if no IPPE)] Future Scheduled 2020-03-[address] [facility] Test 00:00:00 WELLNESS (YEAR 2 or Medical Center FIRST YEAR if no IPPE) [code = MEDICARE ANNUAL WELLNESS (YEAR 2 or FIRST YEAR if no IPPE)] Future Scheduled 2019-09-11 PNEUMOCOCCAL 65+ [address]RS [facility] Test 00:00:00 (1 of 1 - Medical Center [id number] PCV13) [code = PNEUMOCOCCAL 65+ YRS (1 of 1 - [id number] PCV13)] Future Scheduled 2019-09-11 PNEUMOCOCCAL 65+ YRS [facility] Test 00:00:00 (1 - PCV) [code = Medical Ce nter PNEUMOCOCCAL 65+ YRS (1 - PCV)] Future Scheduled 2004 SHINGLES VACCINES ([address] [facility] Test 00:00:00 of 2) [code = SHINGLES Medic al Center VACCINES (1 of 2)] Future Scheduled 2004 SHINGLES VACCINES ([address] [facility] Test 00:00:00 of 2) [code = SHINGLES Medic al Center VACCINES (1 of 2)] Future Scheduled 1973 DTAP/TDAP/TD VACCINES [facility] 00:00:00 (1 - Tdap) [code = Medical C enter DTAP/TDAP/TD VACCINES (1 - Tdap)] Future Scheduled 1973 DTAP/TDAP/TD VACCINES [facility] Test 00:00:00 (1 - Tdap) [code = Medical C enter DTAP/TDAP/TD VACCINES (1 - Tdap)] Future Scheduled 1972 HEPATITIS C [facility]CRE[facility]ING [facility] 00:00:00 [code = HEPATITIS C Medical Center SCREENING] Future Scheduled 1972 HEPATITIS C [facility]CRE[facility]ING [facility] 00:00:00 [code = HEPATITIS C Medical Center SCREENING] Future Scheduled 1966 COVID-19 VACCINE (1) [facility] Test 00:00:00 [code = COVID-[address] VACCINE (1)] Future Scheduled 1955-03-13 COVID-19 VACCINE (#1) [facility] 00:00:00 [code = COVID-[address] VACCINE (#1)] Future Scheduled [address] [facility] Test 00:[facility]:00 malignant neoplasm of Medica l Center breast (procedure) [code = 748007966] Future Scheduled [address] [facility] Test 00:00:00 malignant neoplasm of Medica l Center colon (procedure) [code = 855898081] Future Scheduled [address] [facility] Test 00:00:00 malignant neoplasm of Medica l Center breast (procedure) [code = 342686606] Future Scheduled [address] [facility] Test 00:00:00 (combo) [code = CT Medical C enter Colonography (combo)] Future Scheduled [address] [facility] [facility] Test 00:00:00 malignant neoplasm of Medica l Center colon (procedure) [code = 960331321] Future Scheduled [address] [facility] Test 00:00:00 malignant neoplasm of Medica l Center colon (procedure) [code = 019717292] Future Scheduled 1954 DXA SCAN [code = DXA [facility] Test 00:00:00 SCAN] [facility] Future Scheduled [address] [facility] [facility] Test 00:00:00 malignant neoplasm of Medica l Center colon (procedure) [code = 632032819] Future Scheduled [address] [facility] Test 00:00:00 malignant neoplasm of Medica l Center colon (procedure) [code = 410262178] Future Scheduled 1954 Sigmoidoscopy [code = [facility]00 Sigmoidoscopy] [facility] Future Scheduled 65+ [facility] Test VACCINE (1 of 4 - PCV13) [code = 65+ PNEUMOCOCCAL VACCINE (1 of 4 - PCV13)] Future Scheduled COVID-19 VACCINE (1) [facility] Test [code = COVID-19 VACCINE (1)] Future Scheduled [facility] ([facility] [code = 652126869] Future Scheduled BREAST CANCER [facility] Test SCREENING [code = BREAST CANCER SCREENING] Future Scheduled [facility] [code = COLONOSCOPY SCREENING] Future Scheduled SHINGLES VACCINES (#1) [facility] [code = SHINGLES VACCINES (#1)] Future Scheduled [facility]ZA [facility]ACCINE [facility] [code = INFLUENZA VACCINE] Goal Plan of Care Note [code = 38618-6] Goal Plan of Care Note [code = 50239-4] Goal Plan of Care Note [code = 68533-0] Goal Plan of Care Note [code = 77400-9] Goal Plan of Care Note [code = 80109-1] Goal Plan of Care Note [code = 09352-9] Goal Plan of Care Note [code = 86295-4] Goal Plan of Care Note [code = 60292-5] Goal Plan of Care Note [code = 74310-9] Goal Plan of Care Note [code = 28835-4] Goal Plan of Care Note [code = 27095-1] Goal Plan of Care Note [code = 54896-9] Goal Plan of Care Note [code = 83223-9] Goal Plan of Care Note [code = 21866-4] Goal Plan of Care Note [code = 02310-0] Goal Plan of Care Note [code = 90562-8] Goal Plan of Care Note [code = 56145-0] Goal Plan of Care Note [code = 15484-3] Goal Plan of Care Note [code = 26878-2] Goal Plan of Care Note [code = 25549-1] Goal Plan of Care Note [code = 95496-8] Goal Plan of Care Note [code = 47780-7] Goal Plan of Care Note [code = 22225-2] Goal Plan of Care Note [code = 33859-4] Goal Plan of Care Note [code = 18848-7] Goal Plan of Care Note [code = 18899-1] Goal Plan of Care Note [code = 81157-4] Goal Plan of Care Note [code = 43609-7] Encounters Start End Encounter Admission Attending Care Care Encounter Source Date/Time Date/Time Type Type Clinicians Facility Department ID 2022-11-16 Outpatient [facility] [id number] Memoria 10:53:35 r Medical l [facility] 2022-11-16 OD MHIE MHIE [id number] Ri moria 10:53:35 00 [facility] 2022-01-08 [facility] [id number] Common 16:07:03 Spirit RAJYALAKSHM - CH I I [facility] 2021-11-23 [facility] [id number] Common 09:29:03 , Spirit RAJYALAKSHM - CH I I [facility] 2021-07-20 Outpatient 3 [id number] ENCPL REF [id number] [facility] 12:45:54 08[facility] [place] 2021-07-20 Outpatient 3 SUMANTH, ENCPL SCN [id number] [facility] 12:30:11 YORDAN 0713 [facility] [place] 2021-07-20 Outpatient 3 [id number] ENCPL REF [id number] [facility] 12:28:51 0709 [facility] [place] 2021-04-02 [facility] [id number] SLSL 02:14:55 GIANNA 2021-02-06 Inpatient UR SARAH ALLEN [facility] Medicine [id number] SLSL 01:22:00 2021-02-03 Outpatient nullFlavo [facility] [id number] Memoria 17:47:23 r Medical 00 l [facility] 2021-02-03 OD MHIE YULIANAIE [id number] Ri moria 17:47:23 00 l [place] 2019-08-31 Outpatient DE MHH [facility] [id number] MH HH 09:50:05 VINNY GARDUNO 2022-11-14 2022-11-14 Outpatient SFA SFA [id number] [place] 17:23:09 17:23:09 0524 Sanam Payne 2022-07-11 2022-07-11 Emergency X SHAISTA MONTOYA ERT [id number] Univers 17:49:00 20:00:00 KATELYN alvares of [facility] 2022-07-11 2022-07-11 Emergency SHAISTA Montoya [id number] Univers 17:49:00 20:00:00 Katelyn RODRIGUEZ 350.1.13.10 i ne ABDUL 4.2.7.2.686 [facility] [id number] [facility] 084 Branch 2022-03-28 2022-03-28 Outpatient [facility] [id number] [place] 13:38:04 13:38:04 1005 F [place] 2022-03-28 2022-03-28 Outpatient [id number] 00:00:00 00:00:00 Visit wx29-1l29 [id number] 2021-12-27 2021-12-27 Outpatient [id number] 00:00:00 00:00:00 Visit ddff-413b dff-413b-a -fl9m-u1y [id number] [id number] 7e05ae 2021-07-31 2021-08-02 Outside nullFlavo MNA [id number] Memoria 15:00:26 05:59:59 Medical r Neurology 05 l Records Keshav Hanley 2021-07-31 2021-08-02 Outside nullFlavo MNA [id number] Memoria 15:00:26 05:59:59 Medical r Neurology 05 l Records Keshav Hanley 2021-07-31 2021-08-01 Outpatient MHMISCHER MHMISCHER [id number] 09:00:26 23:59:59 2021-07-11 2021-07-13 Outside nullFlavo MNA [id number] Memoria 21:37:12 05:59:59 Medical r Neurology 04 l Records Keshav Hanley 2021-07-11 2021-07-13 Outside nullFlavo MNA [id number] Memoria 21:37:12 05:59:59 Medical r Neurology 04 l Records Keshav Hanley 2021-07-11 2021-07-12 Outpatient MHMISCHER MHMISCHER [id number] 15:37:12 23:59:59 2021-06-29 2021-07-01 Outside nullFlavo MNA [id number] Memoria 14:26:17 05:59:59 Medical r Neurology 03 l Records Keshav Hanley 2021-06-29 2021-07-01 Outside nullFlavo MNA [id number] Memoria 14:26:17 05:59:59 Medical r Neurology 03 l Records Keshav Hanley 2021-06-29 2021-06-30 Outpatient MHMISCHER MHMISCHER [id number] 08:26:17 23:59:59 03 2021-01-26 2021-05-25 Outpatient RECERTIFIC SUMANTH, ENCGEN ENCGEN [id number] ENCGEN 00:00:00 00:00:00 DOUG FARR 2021-05-15 2021-05-17 Outside nullFlavo MNA [id number] Memoria 14:12:40 05:59:59 Medical r Neurology 02 l Records Keshav Hanley 2021-05-15 2021-05-17 Outside nullFlavo MNA [id number] Memoria 14:12:40 05:59:59 Medical r Neurology 02 l Records Keshav Hanley 2021-05-15 2021-05-16 Outpatient MHMISCHER MHMISCHER [id number] 08:12:40 23:59:59 02 2021-05-10 2021-05-10 [facility], 1.2.840.1 [id number] Methodi 14:53:11 23:59:00 Encounter Gianna Muller 71244.1.[address] 3.430.2.7 Hospit a .3.600830 l .8 2021-05-10 2021-05-10 Travel 1.2.840.1 1.2.209.962 [id number] Methodi 00:00:00 00:00:[address] 3.430.2.7 0.2.7.3.698 Ho spita .3.698493 084.8 l .8 2021-05-10 2021-05-10 Transcribe [facility], 1.2.840.1 [id number] Methodi 00:00:00 00:00:00 Orders Gianna Kirk50.1.[address] 3.430.2.7 Hospit a .3.343785 l .8 2021-04-28 2021-04-29 Outpatient nullFlavo MNA [id number] Memoria 18:15:00 04:59:59 r Neurology 06 l Keshav Gardnerann 2021-04-28 2021-04-29 Outpatient nullFlavo MNA [id number] Memoria 18:15:00 04:59:59 r Neurology 06 l Keshav Talon 2021-04-28 2021-04-28 Outpatient Marce, MISCHER MISCHER [id number] 13:15:00 23:59:59 Paul 06 Patrice 2021-04-28 2021-04-28 Outpatient MHIE MHIE [id number] Memoria 13:15:00 13:15:00 06 l Talon 2021-03-03 2021-03-03 Outpatient [facility] [id number] [address] [place] [address] 00:00:00 00:00:[address] GIAN[address] 2021-02-22 2021-02-22 Ambulatory nullFlavo MNA [id number] Memoria 15:45:00 15:45:00 Pre-Reg r Neurology 05 l Keshav Gardnerann 2021-02-22 2021-02-22 Ambulatory nullFlavo MNA [id number] Memoria 15:45:00 15:45:00 Pre-Reg r Neurology 05 l Johnston Talon 2021-02-22 2021-02-22 Outpatient MHIE MHIE [id number] Memoria 10:45:00 10:45:00 05 l Talon 2021-02-22 2021-02-22 [facility] [id number] 10:45:00 10:45:00 Paul 05 Patrice 2021-02-02 2021-02-02 [facility], 1.2.840.1 [id number] Methodi 00:00:00 00:00:00 Orders Gianna Muller 15768.1.[address] 3.430.2.7 Hospit a .3.654687 l .8 2021-02-02 2021-02-02 [facility], 1.2.840.1 [id number] [place] 00:00:00 00:00:00 Encounter GIANNA 22391.1.1 [address] .3.469093 .8 2021-02-02 2021-02-02 Travel 1.2.840.1 1.2.303.240 [id number] [facility] 00:00:00 00:00:[address] 3.430.2.7 0.2.7.3.698 Ho spita .3.406568 084.8 l .8 2021-01-31 2021-02-01 Outpatient nullFlavo MNA [id number] Memoria 19:15:00 04:59:59 r Neurology 04 l Keshav Hanley 2021-01-31 2021-02-01 Outpatient nullFlavo MNA [id number] Memoria 19:15:00 04:59:59 r Neurology 04 l Keshav Hanley 2021-01-31 2021-01-31 [facility] [id number] 14:15:00 23:59:59 Paul 04 Patrice 2021-01-31 2021-01-31 Outpatient MHIE MHIE [id number] Memoria 14:15:00 14:15:00 04 l Talon 2021-01-26 2021-01-26 Outpatient MYKEL JIN [id number] ENCGEN 00:00:00 00:00:00 ADMISSION YORDAN 2021-01-26 2021-01-26 Outpatient RECERTIFIC MYKEL JULIO ENCGEN [id number] ENCGEN 00:00:00 00:00:00 ATION YORDAN 2021-01-08 2021-01-08 Emergency EM Eve, [facility] [id number] [facility] 01:31:00 04:08:00 Zeus 17 [facility] 2021-01-07 2021-01-07 Outpatient ALEXIA Zhang [id number] [facility] 21:39:00 21:39:00 Zeny 91 [facility] 2021-01-05 2021-01-05 Outpatient ÁNGEL JULIOPM RADI [id number] [facility] 18:37:00 18:37:00 YORDAN Ludwig [facility] dixie [facility] 2020-12-22 2020-12-22 Outpatient EL SLSL SLSL [id number] SLSL 00:00:00 00:00:00 2020-10-31 2020-11-01 Outpatient nullFlavo MNA [id number] Memoria 14:45:00 04:59:59 r Neurology 03 l Keshav Hanley 2020-10-31 2020-11-01 Outpatient nullFlavo MNA [id number] Memoria 14:45:00 04:59:59 r Neurology 03 l Keshav Hanley 2020-10-31 2020-10-31 [facility] [id number] 09:45:00 23:59:59 Paul Ibrahim 2020-10-31 2020-10-31 Outpatient MHIE MHIE [id number] Memoria 09:45:00 09:45:00 03 l Talon 2020-10-24 2020-10-26 Outside nullFlavo MNA [id number] Memoria 15:11:50 04:59:59 Medical r Neurology 01 l Records Keshav Hanley 2020-10-24 2020-10-26 Outside nullFlavo MNA [id number] Memoria 15:11:50 04:59:59 Medical r Neurology 01 l Records Keshav Hanley 2020-10-24 2020-10-25 [id number] 10:11:50 23:59:59 2020-10-13 2020-10-13 Ambulatory nullFlavo MNA [id number] Memoria 15:30:00 15:30:00 Pre-Reg r Neurology 02 l Keshav Hanley 2020-10-13 2020-10-13 Ambulatory nullFlavo MNA [id number] Memoria 15:30:00 15:30:00 Pre-Reg r Neurology 02 l Keshav Hanley 2020-10-13 2020-10-13 Outpatient MHIE MHIE [id number] Memoria 10:30:00 10:30:00 02 kalyani Hanley 2020-10-13 2020-10-13 Outpatient CLARICE ZhengSCHER MISCHER [id number] 10:30:00 10:30:00 Paul 02 Patrice 2020-08-24 2020-08-26 Outside nullFlavo MNA [id number] Memoria 17:52:51 05:59:59 Medical r Neurology 00 l Records Keshav Hanley 2020-08-24 2020-08-26 Outside nullFlavo MNA [id number] Memoria 17:52:51 05:59:59 Medical r Neurology 00 l Records Keshav Hanley 2020-08-24 2020-08-25 Outpatient MHMISCHER MHMISCHER [id number] 11:52:51 23:59:59 2020-08-17 2020-08-17 Ambulatory nullFlavo MNA [id number] Memoria 16:15:00 16:15:00 Pre-Reg r Neurology 01 l Keshav Gardnerann 2020-08-17 2020-08-17 Ambulatory nullFlavo MNA [id number] Memoria 16:15:00 16:15:00 Pre-Reg r Neurology 01 l Keshav Gardnerann 2020-08-17 2020-08-17 Outpatient MHIE MHIE [id number] Memoria 10:15:00 10:15:00 01 kalyani Talon 2020-08-17 2020-08-17 [id number] 10:15:00 10:15:00 Paul Patrice 2020-07-20 2020-07-21 Outpatient nullFlavo MNA [id number] Memoria 19:30:00 05:59:59 r Neurology 00 l Keshav Gardnerann 2020-07-20 2020-07-21 Outpatient nullFlavo MNA [id number] Memoria 19:30:00 05:59:59 r Neurology 00 l Keshav Gardnerann 2020-07-20 2020-07-20 Outpatient CLARICE ZhengSCHER MHMISCHER [id number] 13:30:00 23:59:59 Paul Patrice 2020-07-20 2020-07-20 Outpatient MHIE MHIE [id number] Memoria 13:30:00 13:30:00 00 kalyani Hanley 2020-06-10 2020-06-10 Orders Doctor KADIE [id number] Univers 00:00:00 00:00:00 Only Unassigned, ANNITA [id number] ity of [facility] [id number] Kranthi as [phone] [facility] 009 Sod 2020-06-10 2020-06-10 Orders Doctor KADIE [id number] 00:00:00 00:00:00 Only Unassigned, ANNITA [id number] [facility] [id number] [id number] 2020-05-26 2020-05-26 Day [facility] [id number] Memoria 13:45:00 20:35:00 Surgery r [place] 03 [facility] 2020-05-26 2020-05-26 Day [facility] [id number] Memoria 13:45:00 20:35:00 Surgery r [place] 03 [facility] 2020-05-26 2020-05-26 Outpatient Ti, MHSE MHSE [id number] 07:45:00 14:35:00 [place] 2020-05-26 2020-05-26 Outpatient Ti, MHSE MHSE [id number] 07:45:00 14:35:00 Blaine [place] 2020-05-26 2020-05-26 Outpatient TI, MHSE MHSE [id number] MH 07:45:00 14:35:00 BLAINE [facility] 2020-05-17 2020-05-17 Day [facility] [id number] Memoria 14:24:00 21:55:00 Surgery r [place] 02 [facility] 2020-05-17 2020-05-17 Day [facility] [id number] Memoria 14:24:00 21:55:00 Surgery r Talon 02 [facility] 2020-05-17 2020-05-17 Outpatient Ti, MHSE MHSE [id number] 08:24:00 15:55:00 [place] 2020-05-17 2020-05-17 Outpatient Ti, MHSE MHSE [id number] 08:24:00 15:55:00 Blaine 02 [place] 2020-05-17 2020-05-17 Outpatient TI MHSE MHSE [id number] MH 08:24:00 15:55:[address] [facility] 2020-04-05 2020-04-08 Inpatient [facility] [id number] Memoria 23:08:39 22:20:[address] [facility] 2020-04-05 2020-04-08 Inpatient [facility] [id number] Memoria 23:08:39 22:20:[address] [facility] 2020-04-06 2020-04-08 Inpatient E MARIAM REYNOLDS MHSE MED [id number] MH 12:24:00 17:20:00 [facility] 2020-04-05 2020-04-08 Outpatient Mariam Reynolds MHSE MHSE [id number] 18:08:39 17:20:00 Thalakulath 01 2020-04-05 2020-04-08 Outpatient Mariam Reynolds MHSE MHSE [id number] 18:08:39 17:20:00 Thalakulath 01 2019-03-10 2019-03-10 Day [facility] [id number] Memoria 15:07:00 17:53:00 Surgery r [place] 00 l [facility] 2019-03-10 2019-03-10 Day [facility] [id number] Memoria 15:07:00 17:53:00 Surgery r Talon 00 l [facility] 2019-03-10 2019-03-10 Outpatient Ti SE MHSE [id number] 10:07:00 12:53:00 Blaine Shoaib [place] 2019-03-10 2019-03-10 Outpatient MHSE MHSE [id number] MH 10:07:00 10:07:00 [facility] 2019-01-16 2019-01-18 Observatio [facility] [id number] Memoria 18:29:00 20:39:00 n guilherme Hanley 02 [facility] 2019-01-16 2019-01-18 Observatio [facility] [id number] Memoria 18:29:00 20:39:00 n guilherme Hanley 02 [facility] 2019-01-16 2019-01-18 Outpatient Ti, MHSE MHSE [id number] 13:29:00 15:39:00 Blaine Farooq 2019-01-16 2019-01-16 Outpatient MHSE MHSE [id number] 13:29:00 13:29:00 [facility] 2018-12-23 2018-12-29 Inpatient Yvette [facility] [id number] Univers 09:13:13 14:30:00 CAROLINA alvares [facility] 2012-05-19 2012-05-19 OR nullFlavo [facility] [id number] Memoria 10:19:00 10:19:00 r Medical 01 [facility] 2012-05-19 2012-05-19 OR nullFlavo [facility] [id number] Memoria 10:19:00 10:19:00 r Medical 01 [facility] 2012-01-10 2012-02-08 OR nullFlavo [facility] [id number] Memoria 09:00:00 23:59:00 r Medical 00 [facility] 2012-01-10 2012-02-08 OR nullFlavo [facility] [id number] Memoria 09:00:00 23:59:00 r Medical 00 [facility] 2012-01-10 2012-01-10 Outpatient nullFlavo [facility] [id number] Memoria 09:00:00 09:00:00 r Medical 01 [facility] 2012-01-10 2012-01-10 Outpatient nullFlavo [facility] [id number] Memoria 09:00:00 09:00:00 r Medical 01 [facility] Results Test Description Test Time Test Comments Results Result Comments Source COMPREHENSIVE METABOLIC PANEL 2021-02-14 04:53:00 Test Item Value Reference Range Interpretation Comme nts TOTAL PROTEIN (BEAKER) 6.4 gm/dL 6.0-8.5 Speci men slightly (test code = 770) hemolyzed ALBUMIN (BEAKER) (test code 3.3 g/dL 3.5-5.0 L Specimen slightly = 1145) hemolyzed ALKALINE PHOSPHATASE 72 U/L 30-115 (BEAKER) (test code = 346) BILIRUBIN TOTAL (BEAKER) 0.7 mg/dL 0.1-1.2 Spe cimen slightly (test code = 377) hemolyzed SODIUM (BEAKER) (test code 139 meq/L 135-148 = 381) POTASSIUM (BEAKER) (test 3.3 meq/L 3.6-5.5 L Spe cimen slightly code = 379) hemolyzed CHLORIDE (BEAKER) (test 100 meq/L 98-106 code = 382) CO2 (BEAKER) (test code = 29 meq/L 20-29 355) BLOOD UREA NITROGEN 9 mg/dL 10-26 L (BEAKER) (test code = 354) CREATININE (BEAKER) (test 2.71 mg/dL 0.50-1.20 H Sp ecimen slightly code = 358) hemolyzed GLUCOSE RANDOM (BEAKER) 84 mg/dL 70-110 (test code = 652) CALCIUM (BEAKER) (test code 9.7 mg/dL 8.5-10.5 = 697) AST (SGOT) (BEAKER) (test 34 U/L 5-40 Sp ecimen slightly code = 353) hemolyzed ALT (SGPT) (BEAKER) (test 39 U/L 5-50 Sp ecimen slightly code = 347) hemolyzed EGFR (BEAKER) (test code = 21 mL/min/1.73 sq m ESTIMATED GFR IS NOT 1092) ACCURATE CRE ATININE CLEARANCE IN [place] EDICTING GLOMERULAR FILT RATION RATE. ESTIMATED GFR IS NOT APPLICABLE FOR DIALYSIS PATIENTS. It Integration Architect ID - [id number] ID - [id number] ID - [id number] ID - [id number] ID - [id number] ID - [id number] ID - [id number] ID - [id number] ID - [id number] ID - [id number] ID - [id number] ID - [id number] ID - [id number] ID - [id number] ID - [id number] ID - [id number] 04:45:00 Test Item Value Reference Range Interpretation Comments MAGNESIUM (BEAKER) 1.9 mg/dL 1.5-3.0 Specimen slightly (test code = 627) hemolyzed It Integration Architect ID - [id number] ID - [id number] ID - [id number] ID - [id number] W/PLT COUNT & AUTO [id number] 04:27:00 Test Item Value Reference Range Interpretation Comments WHITE BLOOD CELL COUNT (BEAKER) 5.9 K/ L 4.0-10.0 (test code = 775) RED BLOOD CELL COUNT (BEAKER) 3.70 M/ L 4.00-5.00 L (test code = 761) HEMOGLOBIN (BEAKER) (test code = 11.0 GM/DL 12.0-15.5 L 410) HEMATOCRIT (BEAKER) (test code = 35.9 % 36.0-46.0 L 411) MEAN CORPUSCULAR VOLUME (BEAKER) 97.0 fL 82.0-99.0 (test code = 753) MEAN CORPUSCULAR HEMOGLOBIN 29.7 pg 27.0-33.0 (BEAKER) (test code = 751) MEAN CORPUSCULAR HEMOGLOBIN CONC 30.6 GM/DL 32.0-36.0 L (BEAKER) (test code = 752) RED CELL DISTRIBUTION WIDTH 16.3 % 12.0-15.0 H (BEAKER) (test code = 412) PLATELET COUNT (BEAKER) (test 201 K/CU MM 150-430 code = 756) MEAN PLATELET VOLUME (BEAKER) 10.6 fL 6.0-11.5 (test code = 754) NUCLEATED RED BLOOD CELLS 0 /100 WBC 0-0 (BEAKER) (test code = 413) NEUTROPHILS RELATIVE PERCENT 62 % (BEAKER) (test code = 429) LYMPHOCYTES RELATIVE PERCENT 14 % (BEAKER) (test code = 430) MONOCYTES RELATIVE PERCENT 16 % (BEAKER) (test code = 431) EOSINOPHILS RELATIVE PERCENT 6 % (BEAKER) (test code = 432) BASOPHILS RELATIVE PERCENT 1 % (BEAKER) (test code = 437) NEUTROPHILS ABSOLUTE COUNT 3.64 K/ L 1.80-8.00 (BEAKER) (test code = 670) LYMPHOCYTES ABSOLUTE COUNT 0.84 K/ L 1.48-4.50 L (BEAKER) (test code = 414) MONOCYTES ABSOLUTE COUNT (BEAKER) 0.93 K/ L 0.00-1.30 (test code = 415) EOSINOPHILS ABSOLUTE COUNT 0.35 K/ L 0.00-0.50 (BEAKER) (test code = 416) BASOPHILS ABSOLUTE COUNT (BEAKER) 0.05 K/ L 0.00-0.20 (test code = 417) IMMATURE GRANULOCYTES-RELATIVE 1 % 0-0 H PERCENT (BEAKER) (test code = 2801) POCT-GLUCOSE [id number] 15:27:00 Test Item Value Reference Range Interpretation Comments POC-GLUCOSE METER 129 mg/dL 70-110 H : TESTED A T [facility] [address] (BEAKER) (test code [address], = 1538) [facility] [place] [address]: It Integration Architect/Techni delvin ID = [id number] for Albert h, Capri COMPREHENSIVE METABOLIC [id number] 05:43:00 Test Item Value Reference Range Interpretation Comments TOTAL PROTEIN 5.5 gm/dL 6.0-8.5 L (BEAKER) (test code = 770) ALBUMIN (BEAKER) 2.9 g/dL 3.5-5.0 L (test code = 1145) ALKALINE PHOSPHATASE 56 U/L 30-115 (BEAKER) (test code = 346) BILIRUBIN TOTAL 0.5 mg/dL 0.1-1.2 (BEAKER) (test code = 377) SODIUM (BEAKER) (test 138 meq/L 135-148 code = 381) POTASSIUM (BEAKER) 3.6 meq/L 3.6-5.5 (test code = 379) CHLORIDE (BEAKER) 104 meq/L 98-106 (test code = 382) CO2 (BEAKER) (test 25 meq/L 20-29 code = 355) BLOOD UREA NITROGEN 6 mg/dL 10-26 L (BEAKER) (test code = 354) CREATININE (BEAKER) 2.45 mg/dL 0.50-1.20 H (test code = 358) GLUCOSE RANDOM 80 mg/dL 70-110 (BEAKER) (test code = 652) CALCIUM (BEAKER) 9.3 mg/dL 8.5-10.5 (test code = 697) AST (SGOT) (BEAKER) 38 U/L 5-40 (test code = 353) ALT (SGPT) (BEAKER) 49 U/L 5-50 (test code = 347) EGFR (BEAKER) (test 24 mL/min/1.73 ESTIMA MELQUIADES GFR IS code = 1092) sq m NOT ACCURATE CREATININE CLEARANCE IN PREDICTING GLOMERULAR FILTRATION RATE . ESTIMATED GFR I S NOT APPLICABLE FOR DIALYSIS PATIEN TS. It Integration Architect ID - LITOOperator ID - LITOOperator ID - LITOOperator ID - LITOOperator ID - LITOOperator ID - LITOOperator ID - LITOOperator ID - LITOOperator ID - LITOOperator ID - LITOOperator ID - LITOOperator ID - LITOOperator ID - LITOOperator ID - LITOOperator ID - LITOOperator ID - LITOURIC [id number] 05:41:00 Test Item Value Reference Range Interpretation Comments URIC ACID (BEAKER) (test code = 2.0 mg/dL 2.5-8.0 L 773) It Integration Architect ID - [id number] 05:40:00 Test Item Value Reference Range Interpretation Comments MAGNESIUM (BEAKER) (test code = 1.8 mg/dL 1.5-3.0 627) It Integration Architect ID - LITOOperator ID - LITOOperator ID - LITOOperator ID - LITOC- REACTIVE [id number] 05:38:00 Test Item Value Reference Range Interpretation Comments C-REACTIVE PROTEIN (BEAKER) (test 0.68 mg/dL 0.00-0.50 H code = 676) It Integration Architect ID - [id number] 05:37:00 Test Item Value Reference Range Interpretation Comments PHOSPHORUS (BEAKER) (test code = 2.1 mg/dL 2.5-4.5 L 604) It Integration Architect ID - LITOB-TYPE NATRIURETIC FACTOR (BNP)[id number] 05:28:00 Test Item Value Reference Range Interpretation Comments B-TYPE NATRIURETIC PEPTIDE (BEAKER) 939 pg/mL 0-100 H (test code = 700) It Integration Architect ID - [id number] 05:28:00 Test Item Value Reference Range Interpretation Comments PROCALCITONIN (BEAKER) (test code 0.11 ng/mL <0.05 H = 3036) SEPSIS RISK (ng/mL)Low: 0.05-0.50Intermediate: 0.51-2.00High: >=2.01CBC W/PLT COUNT & AUTO [id number] 04:58:00 Test Item Value Reference Range Interpretation Comments WHITE BLOOD CELL COUNT (BEAKER) 5.2 K/ L 4.0-10.0 (test code = 775) RED BLOOD CELL COUNT (BEAKER) 3.73 M/ L 4.00-5.00 L (test code = 761) HEMOGLOBIN (BEAKER) (test code = 10.8 GM/DL 12.0-15.5 L 410) HEMATOCRIT (BEAKER) (test code = 36.3 % 36.0-46.0 411) MEAN CORPUSCULAR VOLUME (BEAKER) 97.3 fL 82.0-99.0 (test code = 753) MEAN CORPUSCULAR HEMOGLOBIN 29.0 pg 27.0-33.0 (BEAKER) (test code = 751) MEAN CORPUSCULAR HEMOGLOBIN CONC 29.8 GM/DL 32.0-36.0 L (BEAKER) (test code = 752) RED CELL DISTRIBUTION WIDTH 16.1 % 12.0-15.0 H (BEAKER) (test code = 412) PLATELET COUNT (BEAKER) (test 173 K/CU MM 150-430 code = 756) MEAN PLATELET VOLUME (BEAKER) 10.7 fL 6.0-11.5 (test code = 754) NUCLEATED RED BLOOD CELLS 1 /100 WBC 0-0 H (BEAKER) (test code = 413) NEUTROPHILS RELATIVE PERCENT 65 % (BEAKER) (test code = 429) LYMPHOCYTES RELATIVE PERCENT 14 % (BEAKER) (test code = 430) MONOCYTES RELATIVE PERCENT 15 % (BEAKER) (test code = 431) EOSINOPHILS RELATIVE PERCENT 5 % (BEAKER) (test code = 432) BASOPHILS RELATIVE PERCENT 1 % (BEAKER) (test code = 437) NEUTROPHILS ABSOLUTE COUNT 3.36 K/ L 1.80-8.00 (BEAKER) (test code = 670) LYMPHOCYTES ABSOLUTE COUNT 0.71 K/ L 1.48-4.50 L (BEAKER) (test code = 414) MONOCYTES ABSOLUTE COUNT (BEAKER) 0.77 K/ L 0.00-1.30 (test code = 415) EOSINOPHILS ABSOLUTE COUNT 0.24 K/ L 0.00-0.50 (BEAKER) (test code = 416) BASOPHILS ABSOLUTE COUNT (BEAKER) 0.06 K/ L 0.00-0.20 (test code = 417) IMMATURE GRANULOCYTES-RELATIVE 1 % 0-0 H PERCENT (BEAKER) (test code = 2801) POCT-GLUCOSE [id number] 17:55:00 Test Item Value Reference Range Interpretation Comments POC-GLUCOSE METER 105 mg/dL 70-110 : TESTED A T [facility] [address] (BEAKER) (test code [address], = 1538) [place] [id number]: It Integration Architect/Techni delvin ID = [id number] for Buff ord, Darlene POCT-GLUCOSE [id number] 11:51:00 Test Item Value Reference Range Interpretation Comments POC-GLUCOSE METER 128 mg/dL 70-110 H : TESTED A T [facility] [address] (BEAKER) (test code [address], = 1538) [place] [address]: It Integration Architect/Techni delvin ID = [id number] for Buff ord, Darlene POCT-GLUCOSE [id number] 06:30:00 Test Item Value Reference Range Interpretation Comments POC-GLUCOSE METER 79 mg/dL 70-110 : TESTED A T [facility] [address] (BEAKER) (test code = [address], 1538) [place] [address]: It Integration Architect/Techni delvin ID = [id number] for Oyeb esequiel, Silvia POCT-GLUCOSE [id number] 00:13:00 Test Item Value Reference Range Interpretation Comments POC-GLUCOSE METER 98 mg/dL 70-110 : TESTED A T [address] (BEAKER) (test code = [address], 1538) [place] [id number]: It Integration Architect/Techni delvin ID = [id number] for Oyeb esequiel, Silvia POCT-GLUCOSE [id number] 18:33:00 Test Item Value Reference Range Interpretation Comments POC-GLUCOSE METER 83 mg/dL 70-110 : TESTED A T [address] (BEAKER) (test code = [address], 1538) [place] [id number]: It Integration Architect/Techni delvin ID = [id number] for Albert h, Capri POCT-GLUCOSE [id number] 12:02:00 Test Item Value Reference Range Interpretation Comments POC-GLUCOSE METER 144 mg/dL 70-110 H : TESTED A T [address] (BEAKER) (test code [address], = 1538) [place] [id number]: It Integration Architect/Techni delvin ID = [id number] for Capri Melton COMPREHENSIVE METABOLIC [id number] 06:26:00 Test Item Value Reference Range Interpretation Comments TOTAL PROTEIN 5.6 gm/dL 6.0-8.5 L Specimen sligh tly (BEAKER) (test code = hemoly zed 770) ALBUMIN (BEAKER) 2.8 g/dL 3.5-5.0 L Specimen sl ightly (test code = 1145) hemolyzed ALKALINE PHOSPHATASE 59 U/L 30-115 (BEAKER) (test code = 346) BILIRUBIN TOTAL 0.6 mg/dL 0.1-1.2 Specimen sli ghtly (BEAKER) (test code = hemoly zed 377) SODIUM (BEAKER) (test 139 meq/L 135-148 code = 381) POTASSIUM (BEAKER) 3.7 meq/L 3.6-5.5 Specimen slightly (test code = 379) hemolyzed CHLORIDE (BEAKER) 103 meq/L 98-106 (test code = 382) CO2 (BEAKER) (test 26 meq/L 20-29 code = 355) BLOOD UREA NITROGEN 18 mg/dL 10-26 (BEAKER) (test code = 354) CREATININE (BEAKER) 4.15 mg/dL 0.50-1.20 H Specimen slightly (test code = 358) hemolyzed GLUCOSE RANDOM 86 mg/dL 70-110 (BEAKER) (test code = 652) CALCIUM (BEAKER) 9.4 mg/dL 8.5-10.5 (test code = 697) AST (SGOT) (BEAKER) 50 U/L 5-40 H Specimen slightly (test code = 353) hemolyzed ALT (SGPT) (BEAKER) 48 U/L 5-50 Specimen slightly (test code = 347) hemolyzed EGFR (BEAKER) (test 13 mL/min/1.73 ESTIMA MELQUIADES GFR IS code = 1092) sq m NOT ACCURATE CREATININE CLEARANCE IN PREDICTING GLOMERULAR FILTRATION RATE . ESTIMATED GFR I S NOT APPLICABLE FOR DIALYSIS PATIEN TS. It Integration Architect ID - [id number] ID - [id number] ID - [id number] ID - [id number] ID - [id number] ID - [id number] ID - [id number] ID - [id number] ID - [id number] ID - [id number] ID - [id number] ID - [id number] ID - [id number] ID - [id number] ID - [id number] ID - [id number] 06:19:00 Test Item Value Reference Range Interpretation Comments MAGNESIUM (BEAKER) 1.8 mg/dL 1.5-3.0 Specimen slightly (test code = 627) hemolyzed It Integration Architect ID - [id number] ID - [id number] ID - [id number] ID - [id number] CBC W/PLT COUNT & AUTO [id number] 05:55:00 Test Item Value Reference Range Interpretation Comments WHITE BLOOD CELL COUNT (BEAKER) 8.1 K/ L 4.0-10.0 (test code = 775) RED BLOOD CELL COUNT (BEAKER) 3.19 M/ L 4.00-5.00 L (test code = 761) HEMOGLOBIN (BEAKER) (test code = 9.5 GM/DL 12.0-15.5 L 410) HEMATOCRIT (BEAKER) (test code = 30.9 % 36.0-46.0 L 411) MEAN CORPUSCULAR VOLUME (BEAKER) 96.9 fL 82.0-99.0 (test code = 753) MEAN CORPUSCULAR HEMOGLOBIN 29.8 pg 27.0-33.0 (BEAKER) (test code = 751) MEAN CORPUSCULAR HEMOGLOBIN CONC 30.7 GM/DL 32.0-36.0 L (BEAKER) (test code = 752) RED CELL DISTRIBUTION WIDTH 16.1 % 12.0-15.0 H (BEAKER) (test code = 412) PLATELET COUNT (BEAKER) (test 192 K/CU MM 150-430 code = 756) MEAN PLATELET VOLUME (BEAKER) 10.4 fL 6.0-11.5 (test code = 754) NUCLEATED RED BLOOD CELLS 0 /100 WBC 0-0 (BEAKER) (test code = 413) NEUTROPHILS RELATIVE PERCENT 78 % (BEAKER) (test code = 429) LYMPHOCYTES RELATIVE PERCENT 7 % (BEAKER) (test code = 430) MONOCYTES RELATIVE PERCENT 11 % (BEAKER) (test code = 431) EOSINOPHILS RELATIVE PERCENT 2 % (BEAKER) (test code = 432) BASOPHILS RELATIVE PERCENT 1 % (BEAKER) (test code = 437) NEUTROPHILS ABSOLUTE COUNT 6.33 K/ L 1.80-8.00 (BEAKER) (test code = 670) LYMPHOCYTES ABSOLUTE COUNT 0.54 K/ L 1.48-4.50 L (BEAKER) (test code = 414) MONOCYTES ABSOLUTE COUNT (BEAKER) 0.85 K/ L 0.00-1.30 (test code = 415) EOSINOPHILS ABSOLUTE COUNT 0.16 K/ L 0.00-0.50 (BEAKER) (test code = 416) BASOPHILS ABSOLUTE COUNT (BEAKER) 0.07 K/ L 0.00-0.20 (test code = 417) IMMATURE GRANULOCYTES-RELATIVE 2 % 0-0 H PERCENT (BEAKER) (test code = 2801) POCT-GLUCOSE [id number] 18:31:00 Test Item Value Reference Range Interpretation Comments POC-GLUCOSE METER 134 mg/dL 70-110 H : TESTED A T [facility]17 (BEAKER) (test code [facility] [address], = 1538) [facility] [address]: It Integration Architect/Techni delvin ID = [id number] for Albert Capri gallegos MR, BRAIN, WITHOUT [id number] 15:11:00Unlisted Reason for Exam - Click Yes and Enter Reason Below->YesUnlisted Reason for Exam->cva?? [facility], ALMA ROSA ONI : 1955 Sex: FFINAL REPORT MR, BRAIN, WITHOUT CONTRAST, MR, MRA, BRAIN, WITHOUT CONTRAST, MR, MRA,NECK, WITHOUT IV CONTRAST INDICATION: Unlisted Reason for Examcva?? TECHNIQUE: Multiplanar, multisequence MR imaging of the brain without intravenous contrast.MRA of the head utilizing 3-D lqvv-cg-wgtfnj technique, with 3-D reconstructions.MRA of the neck utilizing 2-D and 3-D iifv-ot-kcqdeo technique, with 3-D reconstructions. COMPARISON: None FINDINGS: MRI Brain:Intracranial: No intracranial hemorrhage. No restricted diffusion to suggest acute infarct. No mass effect. No hydrocephalus. Multiple remote bilateral basal ganglia lacunar infarcts. Generalized cerebral atrophy with ex vacuo dilatation of the ventricular system proportionate to sulci. Since of confluent T2 prolongation within the periventricular and subcortical white matter is a nonspecific finding commonly attributed to chronic smallvessel ischemic disease. Sinuses: No evidence of sinusitis. Right mastoid effusion. Orbits: Globes are intact. Calvarium \\T\\ scalp: Unremarkable. MRA Head:There is no evidence of intracranial aneurysm,focal stenosis, or major branch vessel occlusion. MRA Neck:The carotid arteries in the neck are patent including their bifurcations. There is antegrade flow in the vertebral arteries in the neck. IMPRESSION:1.No acute intracranial abnormality.2.Extensive chronic microvascular ischemic changes.3.No proximal branch arterial occlusion or high-grade focal stenosis within the head and neck. Signed: Sue Steen Verified Date/Time: 02/08/2021 15:11:47 MR, MRA, NECK, WITHOUT IV [id number] 15:11:00Unlisted Reason for Exam - Click Yes and Enter Reason Below- >YesUnlisted Reason for Exam->cva?? [facility] : 1955 Sex: FFINAL REPORT MR, BRAIN, WITHOUT CONTRAST, MR, MRA, BRAIN, WITHOUT CONTRAST, MR, MRA,NECK, WITHOUT IV CONTRAST INDICATION: Unlisted Reason for Examcva?? TECHNIQUE: Multiplanar, multisequence MR imaging of the brain without intravenous contrast.MRA of the head utilizing 3-D ewco-lp-palruj technique, with 3-D reconstructions.MRA of the neck utilizing 2-D and 3-D rxyl-hi-qjcqzr technique, with 3-D reconstructions. COMPARISON: None FINDINGS: MRI Brain:Intracranial: No intracranial hemorrhage. No restricted diffusion to suggest acute infarct. No mass effect. No hydrocephalus. Multiple remote bilateral basal ganglia lacunar infarcts. Generalized cerebral atrophy with ex vacuo dilatation of the ventricular system proportionate to sulci. Since of confluent T2 prolongation within the periventricular and subcortical white matter is a nonspecific finding commonly attributed to chronic smallvessel ischemic disease. Sinuses: No evidence of sinusitis. Right mastoid effusion. Orbits: Globes are intact. Calvarium \\T\\ scalp: Unremarkable. MRA Head:There is no evidence of intracranial aneurysm,focal stenosis, or major branch vessel occlusion. MRA Neck:The carotid arteries in the neck are patent including their bifurcations. There is antegrade flow in the vertebral arteries in the neck. IMPRESSION:1.No acute intracranial abnormality.2.Extensive chronic microvascular ischemic changes.3.No proximal branch arterial occlusion or high-grade focal stenosis within the head and neck. Signed: [facility] Verified Date/Time: 02/08/2021 15:11:47 MR, MRA, BRAIN, WITHOUT [id number] 15:11:00Unlisted Reason for Exam - Click Yes and Enter Reason Below- >YesUnlisted Reason for Exam->cva?? [facility] : 1955 Sex: FFINAL REPORT MR, BRAIN, WITHOUT CONTRAST, MR, MRA, BRAIN, WITHOUT CONTRAST, MR, MRA,NECK, WITHOUT IV CONTRAST INDICATION: Unlisted Reason for Examcva?? TECHNIQUE: Multiplanar, multisequence MR imaging of the brain without intravenous contrast.MRA of the head utilizing 3-D urlt-xa-ewnnno technique, with 3-D reconstructions.MRA of the neck utilizing 2-D and 3-D zrff-zn-ikiwmk technique, with 3-D reconstructions. COMPARISON: None FINDINGS: MRI Brain:Intracranial: No intracranial hemorrhage. No restricted diffusion to suggest acute infarct. No mass effect. No hydrocephalus. Multiple remote bilateral basal ganglia lacunar infarcts. Generalized cerebral atrophy with ex vacuo dilatation of the ventricular system proportionate to sulci. Since of confluent T2 prolongation within the periventricular and subcortical white matter is a nonspecific finding commonly attributed to chronic smallvessel ischemic disease. Sinuses: No evidence of sinusitis. Right mastoid effusion. Orbits: Globes are intact. Calvarium \\T\\ scalp: Unremarkable. MRA Head:There is no evidence of intracranial aneurysm,focal stenosis, or major branch vessel occlusion. MRA Neck:The carotid arteries in the neck are patent including their bifurcations. There is antegrade flow in the vertebral arteries in the neck. IMPRESSION:1.No acute intracranial abnormality.2.Extensive chronic microvascular ischemic changes.3.No proximal branch arterial occlusion or high-grade focal stenosis within the head and neck. Signed: Sue Steen Verified Date/Time: 02/08/2021 15:11:47 POCT-GLUCOSE [id number] 12:21:00 Test Item Value Reference Range Interpretation Comments POC-GLUCOSE METER 123 mg/dL 70-110 H : TESTED A T [facility] (Help.[email or web address]) (test code [address], = 1538) [facility] 77 478: It Integration Architect/Techni delvin ID = [id number] for Capri Melton [id number] 06:34:00 Test Item Value Reference Range Interpretation Comments MAGNESIUM (BEAKER) (test code = 2.1 mg/dL 1.5-3.0 627) It Integration Architect ID - LITOOperator ID - LITOOperator ID - LITOOperator ID - LITOBASIC METABOLIC [id number] 06:33:00 Test Item Value Reference Range Interpretation Comments SODIUM (BEAKER) 140 meq/L 135-148 (test code = 381) POTASSIUM (BEAKER) 3.6 meq/L 3.6-5.5 (test code = 379) CHLORIDE (BEAKER) 102 meq/L 98-106 (test code = 382) CO2 (BEAKER) (test 30 meq/L 20-29 H code = 355) BLOOD UREA NITROGEN 16 mg/dL 10-26 (BEAKER) (test code = 354) CREATININE (BEAKER) 3.37 mg/dL 0.50-1.20 H (test code = 358) GLUCOSE RANDOM 85 mg/dL 70-110 (BEAKER) (test code = 652) CALCIUM (BEAKER) 9.0 mg/dL 8.5-10.5 (test code = 697) EGFR (BEAKER) (test 17 mL/min/1.73 ESTIMA MELQUIADES GFR IS code = 1092) sq m NOT ACCURATE CREATININE CLEARANCE IN PREDICTING GLOMERULAR FILTRATION RATE . ESTIMATED GFR I S NOT APPLICABLE FOR DIALYSIS PATIEN TS. It Integration Architect ID - LITOOperator ID - LITOOperator ID - LITOOperator ID - LITOOperator ID - LITOOperator ID - LITOOperator ID - LITOOperator ID - LITOOperator ID - LITOOperator ID - LITOCBC W/PLT COUNT & AUTO [id number] 06:13:00 Test Item Value Reference Range Interpretation Comments WHITE BLOOD CELL COUNT (BEAKER) 7.6 K/ L 4.0-10.0 (test code = 775) RED BLOOD CELL COUNT (BEAKER) 3.00 M/ L 4.00-5.00 L (test code = 761) HEMOGLOBIN (BEAKER) (test code = 8.8 GM/DL 12.0-15.5 L 410) HEMATOCRIT (BEAKER) (test code = 29.0 % 36.0-46.0 L 411) MEAN CORPUSCULAR VOLUME (BEAKER) 96.7 fL 82.0-99.0 (test code = 753) MEAN CORPUSCULAR HEMOGLOBIN 29.3 pg 27.0-33.0 (BEAKER) (test code = 751) MEAN CORPUSCULAR HEMOGLOBIN CONC 30.3 GM/DL 32.0-36.0 L (BEAKER) (test code = 752) RED CELL DISTRIBUTION WIDTH 16.3 % 12.0-15.0 H (BEAKER) (test code = 412) PLATELET COUNT (BEAKER) (test 196 K/CU MM 150-430 code = 756) MEAN PLATELET VOLUME (BEAKER) 9.9 fL 6.0-11.5 (test code = 754) NUCLEATED RED BLOOD CELLS 0 /100 WBC 0-0 (BEAKER) (test code = 413) NEUTROPHILS RELATIVE PERCENT 79 % (BEAKER) (test code = 429) LYMPHOCYTES RELATIVE PERCENT 6 % (BEAKER) (test code = 430) MONOCYTES RELATIVE PERCENT 12 % (BEAKER) (test code = 431) EOSINOPHILS RELATIVE PERCENT 1 % (BEAKER) (test code = 432) BASOPHILS RELATIVE PERCENT 1 % (BEAKER) (test code = 437) NEUTROPHILS ABSOLUTE COUNT 6.03 K/ L 1.80-8.00 (BEAKER) (test code = 670) LYMPHOCYTES ABSOLUTE COUNT 0.48 K/ L 1.48-4.50 L (BEAKER) (test code = 414) MONOCYTES ABSOLUTE COUNT (BEAKER) 0.91 K/ L 0.00-1.30 (test code = 415) EOSINOPHILS ABSOLUTE COUNT 0.10 K/ L 0.00-0.50 (BEAKER) (test code = 416) BASOPHILS ABSOLUTE COUNT (BEAKER) 0.04 K/ L 0.00-0.20 (test code = 417) IMMATURE GRANULOCYTES-RELATIVE 1 % 0-0 H PERCENT (BEAKER) (test code = 2801) RAD, CHEST, 1 VIEW, NON [id number] 09:38:00Reason for exam:- >pneumoniaShould this be performed at the bedside?->Yes [facility] 1955 Sex: FFINAL REPORT CHEST AP PORTABLE SEMIERECT History provided: Pneumonia COMPARISON STUDY: 02/06/2021 Significant progression of airspace disease throughout the right lung, with lesser degree of airspace disease within the left lung, consistent with multifocal pneumonia. Heart size normal. Signed: Melvin [facility]law[facility] Verified Date/Time: 02/07/2021 09:38:47 Reading Location: [facility] Radiology Reading Room COMPREHENSIVE METABOLIC [id number] 09:34:00 Test Item Value Reference Range Interpretation Comments TOTAL PROTEIN 5.5 gm/dL 6.0-8.5 L Specimen sligh tly (BEAKER) (test code = hemoly zed 770) ALBUMIN (BEAKER) 2.7 g/dL 3.5-5.0 L Specimen sl ightly (test code = 1145) hemolyzed ALKALINE PHOSPHATASE 57 U/L 30-115 (BEAKER) (test code = 346) BILIRUBIN TOTAL 0.5 mg/dL 0.1-1.2 Specimen sli ghtly (BEAKER) (test code = hemoly zed 377) SODIUM (BEAKER) (test 140 meq/L 135-148 code = 381) POTASSIUM (BEAKER) 3.7 meq/L 3.6-5.5 Specimen slightly (test code = 379) hemolyzed CHLORIDE (BEAKER) 104 meq/L 98-106 (test code = 382) CO2 (BEAKER) (test 26 meq/L 20-29 code = 355) BLOOD UREA NITROGEN 21 mg/dL 10-26 (BEAKER) (test code = 354) CREATININE (BEAKER) 4.02 mg/dL 0.50-1.20 H Specimen slightly (test code = 358) hemolyzed GLUCOSE RANDOM 85 mg/dL 70-110 (BEAKER) (test code = 652) CALCIUM (BEAKER) 9.0 mg/dL 8.5-10.5 (test code = 697) AST (SGOT) (BEAKER) 47 U/L 5-40 H Specimen slightly (test code = 353) hemolyzed ALT (SGPT) (BEAKER) 47 U/L 5-50 Specimen slightly (test code = 347) hemolyzed EGFR (BEAKER) (test 13 mL/min/1.73 ESTIMA MELQUIADES GFR IS code = 1092) sq m NOT ACCURATE CREATININE CLEARANCE IN PREDICTING GLOMERULAR FILTRATION RATE . ESTIMATED GFR I S NOT APPLICABLE FOR DIALYSIS PATIEN TS. It Integration Architect ID - DSENSONOperator ID - DSENSONOperator ID - DSENSONOperator ID - DSENSONOperator ID - DSENSONOperator ID - DSENSONOperator ID - DSENSONOperator ID - DSENSONOperator ID - DSENSONOperator ID - DSENSONOperator ID - DSENSONOperator ID - DSENSONOperator ID - DSENSONOperator ID - DSENSONOperatorID - DSENSONOperator ID - DSENSONOperator ID - DSENSONOperator ID - DSENSONOperator ID - [id number] 05:49:00 Test Item Value Reference Range Interpretation Comments MAGNESIUM (BEAKER) 1.8 mg/dL 1.5-3.0 Specimen markedly (test code = 627) hemolyzed It Integration Architect ID - LITOOperator ID - LITOOperator ID - LITOOperator ID - LITOCBC W/PLT COUNT & AUTO [id number] 05:26:00 Test Item Value Reference Range Interpretation Comments WHITE BLOOD CELL COUNT (BEAKER) 8.6 K/ L 4.0-10.0 (test code = 775) RED BLOOD CELL COUNT (BEAKER) 3.18 M/ L 4.00-5.00 L (test code = 761) HEMOGLOBIN (BEAKER) (test code = 9.5 GM/DL 12.0-15.5 L 410) HEMATOCRIT (BEAKER) (test code = 30.5 % 36.0-46.0 L 411) MEAN CORPUSCULAR VOLUME (BEAKER) 95.9 fL 82.0-99.0 (test code = 753) MEAN CORPUSCULAR HEMOGLOBIN 29.9 pg 27.0-33.0 (BEAKER) (test code = 751) MEAN CORPUSCULAR HEMOGLOBIN CONC 31.1 GM/DL 32.0-36.0 L (BEAKER) (test code = 752) RED CELL DISTRIBUTION WIDTH 16.7 % 12.0-15.0 H (BEAKER) (test code = 412) PLATELET COUNT (BEAKER) (test 259 K/CU MM 150-430 code = 756) MEAN PLATELET VOLUME (BEAKER) 10.4 fL 6.0-11.5 (test code = 754) NUCLEATED RED BLOOD CELLS 0 /100 WBC 0-0 (BEAKER) (test code = 413) NEUTROPHILS RELATIVE PERCENT 80 % (BEAKER) (test code = 429) LYMPHOCYTES RELATIVE PERCENT 8 % (BEAKER) (test code = 430) MONOCYTES RELATIVE PERCENT 10 % (BEAKER) (test code = 431) EOSINOPHILS RELATIVE PERCENT 1 % (BEAKER) (test code = 432) BASOPHILS RELATIVE PERCENT 1 % (BEAKER) (test code = 437) NEUTROPHILS ABSOLUTE COUNT 6.85 K/ L 1.80-8.00 (BEAKER) (test code = 670) LYMPHOCYTES ABSOLUTE COUNT 0.65 K/ L 1.48-4.50 L (BEAKER) (test code = 414) MONOCYTES ABSOLUTE COUNT (BEAKER) 0.82 K/ L 0.00-1.30 (test code = 415) EOSINOPHILS ABSOLUTE COUNT 0.10 K/ L 0.00-0.50 (BEAKER) (test code = 416) BASOPHILS ABSOLUTE COUNT (BEAKER) 0.06 K/ L 0.00-0.20 (test code = 417) IMMATURE GRANULOCYTES-RELATIVE 1 % 0-0 H PERCENT (BEAKER) (test code = 2801) POCT-GLUCOSE [id number] 18:26:00 Test Item Value Reference Range Interpretation Comments POC-GLUCOSE METER 76 mg/dL 70-110 : [facility] (test code = [address], [address]) [facility] 77 478: It Integration Architect/Techni delvin ID = [id number] for Sue Koehler POCT-GLUCOSE [id number] 16:55:00 Test Item Value Reference Range Interpretation Comments POC-GLUCOSE METER 69 mg/dL 70-110 L : TESTED A T [facility] (BEAKER) (test code = [address], 1538) [facility] [place] 77 478: It Integration Architect/Techni delvin ID = [id number] for Sue Koehler LIPID [id number] 15:50:00 Test Item Value Reference Range Interpretation Comments TRIGLYCERIDES (BEAKER) (test code = 81 mg/dL 540) CHOLESTEROL (BEAKER) (test code = 129 mg/dL 631) HDL CHOLESTEROL (BEAKER) (test code 43 mg/dL = 976) LDL CHOLESTEROL CALCULATED (BEAKER) 70 mg/dL (test code = 633) Triglyceride Reference Range: Low Risk <150 Borderline 150-199 High Risk 200- 499 Very High Risk >=500Cholesterol Reference Range: Low Risk <200 Borderline 200-239 High Risk >240HDL Cholesterol Reference Range: Low Risk >=60 High Risk <40LDL Cholesterol Reference Range: Optimal <100 Near Optimal 100-129 Borderline 130-159 High 160-189 Very High >=190 It Integration Architect ID - DSENSONOperator ID - DSENSONOperator ID - DSENSONOperator ID - DSENSONOperator ID - DSENSONOperator ID - DSENSONTROPONIN [id number] 15:40:00 Test Item Value Reference Range Interpretation Comments TROPONIN I (BEAKER) (test code = 0.16 ng/mL 0.00-0.15 H 397) Troponin I (TnI) levels must be interpreted in the context of the presenting symptoms and the clinical findings. Elevated TnI levels indicate myocardial damage, but are not specific for ischemic heart disease. Elevated TnI levels are seen in patients with other cardiac conditions (including myocarditis and congestive heart failure), and slight TnI elevations occur in patients with other conditions, including sepsis, renal failure, acidosis, acute neurological disease, and persistent tachyarrhythmia.It Integration Architect ID - [id number] 15:24:00 Test Item Value Reference Range Interpretation Comments AMMONIA (BEAKER) (test 20 mol/L 17-80 Speci men slightly code = 348) hemolyzed It Integration Architect ID - DSENSONOperator ID - DSENSONOperator ID - DSENSONOperator ID - DSENSONHEPATITIS B SURFACE [id number] 12:22:00 Test Item Value Reference Range Interpretation Comments HEPATITIS B SURFACE ANTIGEN (2) Nonreactive Nonreactive (GEMMAAKER) (test code = 2585) It Integration Architect ID - DSENSONPOCT-GLUCOSE [id number] 12:03:00 Test Item Value Reference Range Interpretation Comments POC-GLUCOSE METER 72 mg/dL 70-110 : TESTED A T [facility] (BEAKER) (test code = [address], 1538) [facility] 77 478: It Integration Architect/Techni delvin ID = [id number] for Sue Koehler RAD, CHEST, 1 VIEW, NON [id number] 07:53:00Reason for exam:- >pneumoniaShould this be performed at the bedside?->Yes [facility] 1955 Sex: FFINAL REPORT History: Pneumonia. FINDINGS: Compared with January 03, 2021, the heart and mediastinum are stable. As before, the heart is mildly enlarged. Right internal jugular central venous catheter has been removed. No pneumothorax. More focal opacity is present in both lower lobes, right greater than left, possibly pneumonia. No pleural effusions. Bones are unremarkable. IMPRESSION: 1. More focal opacity in the lower lobes, right greater than left, since the previous study, consistent with pneumonia. Signed: Kadie Baxter Verified Date/Time: 02/06/2021 07:53:46 Reading Location: [facility] P048 Angio Body Reading Room COMPREHENSIVE METABOLIC [id number] 06:07:00 Test Item Value Reference Range Interpretation Comments TOTAL PROTEIN 5.7 gm/dL 6.0-8.5 L (BEAKER) (test code = 770) ALBUMIN (BEAKER) 2.8 g/dL 3.5-5.0 L (test code = 1145) ALKALINE PHOSPHATASE 62 U/L 30-115 (BEAKER) (test code = 346) BILIRUBIN TOTAL 0.5 mg/dL 0.1-1.2 (BEAKER) (test code = 377) SODIUM (BEAKER) (test 141 meq/L 135-148 code = 381) POTASSIUM (BEAKER) 3.6 meq/L 3.6-5.5 (test code = 379) CHLORIDE (BEAKER) 103 meq/L 98-106 (test code = 382) CO2 (BEAKER) (test 23 meq/L 20-29 code = 355) BLOOD UREA NITROGEN 45 mg/dL 10-26 H (BEAKER) (test code = 354) CREATININE (BEAKER) 6.60 mg/dL 0.50-1.20 H (test code = 358) GLUCOSE RANDOM 70 mg/dL 70-110 (BEAKER) (test code = 652) CALCIUM (BEAKER) 9.6 mg/dL 8.5-10.5 (test code = 697) AST (SGOT) (BEAKER) 60 U/L 5-40 H (test code = 353) ALT (SGPT) (BEAKER) 65 U/L 5-50 H (test code = 347) EGFR (BEAKER) (test 8 mL/min/1.73 ESTIMAT ED GFR IS code = 1092) sq m NOT ACCURATE CREATININE CLEARANCE IN PREDICTING GLOMERULAR FILTRATION RATE . ESTIMATED GFR I S NOT APPLICABLE FOR DIALYSIS PATIEN TS. It Integration Architect ID - [id number] ID - [id number] ID - [id number] ID - [id number] ID - [id number] ID - [id number] ID - [id number] ID - [id number] ID - [id number] ID - [id number] ID - [id number] ID - [id number] ID - [id number] ID - [id number] ID - [id number] ID - [id number] TROPONIN [id number] 06:05:00 Test Item Value Reference Range Interpretation Comments TROPONIN I (BEAKER) (test code = 0.13 ng/mL 0.00-0.15 397) Troponin I (TnI) levels must be interpreted in the context of the presenting symptoms and the clinical findings. Elevated TnI levels indicate myocardial damage, but are not specific for ischemic heart disease. Elevated TnI levels are seen in patients with other cardiac conditions (including myocarditis and congestive heart failure), and slight TnI elevations occur in patients with other conditions, including sepsis, renal failure, acidosis, acute neurological disease, and persistent tachyarrhythmia.It Integration Architect ID - [id number] 2021-02-06 05:59:00 Test Item Value Reference Range Interpretation Comments MAGNESIUM (BEAKER) (test code = 1.7 mg/dL 1.5-3.0 627) It Integration Architect ID - [id number] ID - [id number] ID - [id number] ID - [id number] 05:44:00 Test Item Value Reference Range Interpretation Comments D-DIMER QUANTITATIVE 0.77 MG/L FEU <0.50 H Final Information (AKER) (test code = (Auto Output) 671) REGARDING D-DIMER RESULTS: The 98% NPV (Negative Predictive Value) for DVT/PE exclusion is 0.50 mg/LFEU as suggested by the cyber transport systems specialist and as approved by the FDA.HEMOGLOBIN [id number] 05:41:00 Test Item Value Reference Range Interpretation Comments HEMOGLOBIN A1C (BEAKER) (test code = 4.7 % 4.3-6.1 368) It Integration Architect ID - [id number] W/PLT COUNT & AUTO [id number] 05:29:00 Test Item Value Reference Range Interpretation Comments WHITE BLOOD CELL COUNT (BEAKER) 6.8 K/ L 4.0-10.0 (test code = 775) RED BLOOD CELL COUNT (BEAKER) 3.28 M/ L 4.00-5.00 L (test code = 761) HEMOGLOBIN (BEAKER) (test code = 9.7 GM/DL 12.0-15.5 L 410) HEMATOCRIT (BEAKER) (test code = 32.0 % 36.0-46.0 L 411) MEAN CORPUSCULAR VOLUME (BEAKER) 97.6 fL 82.0-99.0 (test code = 753) MEAN CORPUSCULAR HEMOGLOBIN 29.6 pg 27.0-33.0 (BEAKER) (test code = 751) MEAN CORPUSCULAR HEMOGLOBIN CONC 30.3 GM/DL 32.0-36.0 L (BEAKER) (test code = 752) RED CELL DISTRIBUTION WIDTH 17.2 % 12.0-15.0 H (BEAKER) (test code = 412) PLATELET COUNT (BEAKER) (test 251 K/CU MM 150-430 code = 756) MEAN PLATELET VOLUME (BEAKER) 10.4 fL 6.0-11.5 (test code = 754) NUCLEATED RED BLOOD CELLS 0 /100 WBC 0-0 (BEAKER) (test code = 413) NEUTROPHILS RELATIVE PERCENT 75 % (BEAKER) (test code = 429) LYMPHOCYTES RELATIVE PERCENT 11 % (BEAKER) (test code = 430) MONOCYTES RELATIVE PERCENT 11 % (BEAKER) (test code = 431) EOSINOPHILS RELATIVE PERCENT 1 % (BEAKER) (test code = 432) BASOPHILS RELATIVE PERCENT 1 % (BEAKER) (test code = 437) NEUTROPHILS ABSOLUTE COUNT 5.04 K/ L 1.80-8.00 (BEAKER) (test code = 670) LYMPHOCYTES ABSOLUTE COUNT 0.76 K/ L 1.48-4.50 L (BEAKER) (test code = 414) MONOCYTES ABSOLUTE COUNT (BEAKER) 0.75 K/ L 0.00-1.30 (test code = 415) EOSINOPHILS ABSOLUTE COUNT 0.08 K/ L 0.00-0.50 (BEAKER) (test code = 416) BASOPHILS ABSOLUTE COUNT (BEAKER) 0.05 K/ L 0.00-0.20 (test code = 417) IMMATURE GRANULOCYTES-RELATIVE 1 % 0-0 H PERCENT (BEAKER) (test code = 2801) XR Cervical Spine Ap Lateral Flexion And [id number] 18:45:01 EXAMINATION: XR CERVICAL SPINE AP LATERAL FLEXION AND EXTENSION CLINICAL HISTORY: M48.02 Spinal stenosis cervical region, STENOSIS COMPARISON: None. IMPRESSION: Cervical spine, 4 views. C3, C4, C5, C6 spinal laminectomies and right-sided lamina plasties are present. There is a minimal 2 mm retrolisthesis of C4 on C5. Straightening of the cervical lordosis is present. There is no evidence of dynamic instability. Vertebral body heights are maintained. Degenerative changes are present, most prominentlyat C3-C4, C4-C5 levels where there is significant loss of disc height endplate sclerosis and marginal ossified formation. Facet arthrosis and uncovertebral hypertrophy is also present at C3-C4, C4-C5, C5-C6 levels. Left carotid bifurcation atherosclerotic ossifications are present. [facility]-[id number] Interface, Radiology Results Incoming 02/02/2021 1:48 PM CDT EXAMINATION: XR CERVICAL SPINE AP LATERAL FLEXION AND EXTENSIONCLINICAL HISTORY: M48.02 Spinal stenosis cervical region, STENOSISCOMPARISON: None.IMPRESSION:Cervical spine, 4 views.C3, C4, C5, C6 spinal laminectomies and right-sided lamina plasties are present.There is a minimal 2 mm retrolisthesis of C4 on C5. Straightening of the cervical lordosis is present. There is no evidenceof dynamic instability.Vertebral body heights are maintained.Degenerative changes are present, most prominently at C3-C4, C4- C5 levels where there is significant loss of disc height endplate sclerosis and marginal ossified formation.Facet arthrosis and uncovertebral hypertrophy is also present at C3-C4, C4-C5, C5-C6 levels.Left carotid bifurcation atherosclerotic ossifications are present.[facility]-[id number] Hospital- CT ABD PELVIS W/O [id number] 02:24:00 [facility] 1955 Sex: F Name: ALMA ROSA CORRAL : 1955 Age/S: 65 / F [id number] [address] [place] Unit #: [id number] Loc: [place] [address] Phys: Zeus Prado DO Acct: [id number] Dis Date: Status: REG ER PHONE #: [phone] Exam Date: 01/08/2021204 FAX #: Reason: r/o ruptured viscous EXAMS: CPT: [id number] CT ABD PELVIS W/O CONT 03622 CT ABDOMEN AND PELVIS W/O CONTRAST Location [...] without nephrolithiasis or hydronephrosis. 5.2 x 4.7 x6.3 cm solid mass off the inferior pole [...] IMPRESSION: PAGE 1 Signed Report (CONTINUED) Name: ALMA ROSA CORRAL : 1955 Age/S: 65 / F [address] [address] Unit #: [id number] Loc: [place] [address] Phys: Zeus Prado DO Acct: [id number] Dis Date: Status: REG ER PHONE #: [phone] Exam Date: 01/08/2021204 FAX #: Reason: r/o ruptured viscous EXAMS: CPT: [id number] CT ABD PELVIS W/O CONT 41938 (Continued) 1. Minimal free air beneath the right hemidiaphragm along theanterior abdomen is likely from patient's peritoneal dialysis catheter. No definite suggestion of a perforated viscus. 2. Mild free fluid in the pelvis may be also related to the PD catheter. 3. Atrophic kidneys bilaterally with a 6.3 cm mass off the inferior pole right kidney suspicious for neoplasm.4. Mild to moderate right effusion with atelectasis. at 0224 Reported and signed by: Nawaf Mccoy M.D. CC: Zeus Prado DO Technologist:Susana Ordaz, RT(R)(CT) CTDI: DLP: Trnscb Date/Time: 01/08/2021 (223) t.[email or web address] Orig Print D/T: S: 01/08/2021 (226) PAGE 2 Signed Report- CT CHEST W/O [id number] 22:59:00 [facility] 1955 Sex: F Name: ALMA ROSA CORRAL [facility] : 1955 Age/S: 65 / F [address] [address] [place] Unit #: [id number] Loc: [place] [address] Phys: Zeny Zhang MD Acct: [id number] Dis Date: Status: REG REF PHONE #: [phone] Exam Date: 01/07/20216 FAX #: Reason: PLEURAL EFFUSION EXAMS: CPT: [id number] CT CHEST W/O CONTRAST 60572 CT chest without contrast Location : B2 HISTORY: Shortness of breath, pleural effusion COMMENT: Multidetector slices through the chest were obtained without contrast. Dose lowering technique with automatic exposure control utilized. The heart is mildly enlarged. Mild pericardial effusion. Aorta and great vessels are within normal limits Pulmonary trunk is unremarkable No mediastinal lym phadenopathy. There is a moderate right effusion with [...] Nawaf Mccoy M.D. CC: Zeny Zhang MD Technologist:RT Maylin(R) CTDI: DLP: Trnscb Date/Time: 01/07/2021 (2258) [email or web address] Orig Print D/T: S: 01/07/2021 (0269) PAGE 1 Signed Report- CT C-SPINE W/O [id number] 15:10:00 [facility] : 1955 Sex: F Name: ALMA ROSA CORRAL [facility] : 1955 Age/S: 65 / F [address] [address] [place] Unit #: [id number] Loc: [place] [address] Phys: Zeny Zhang MD Acct: [id number] Dis Date: Status: REG REF PHONE #: [phone] Exam Date: 01/07/20211451 FAX #: Reason: S/P CERVICAL LAMINECTOMY EXAMS: CPT: [id number] CT C-SPINE W/O CONT 12127 EXAM: CT CERVICAL SPINE WITHOUT CONTRAST HISTORY: [...] spine, PAGE 1 Signed Report (CONTINUED) Name: ALMA ROSA CORRAL [facility] [place] : 1955 Age/S: 65 / F [address] [address] [place] Unit#: [id number] Loc: [place] [address] Phys: Zeny Zhang MD Acct: [id number] Dis Date: Status: REG REF PHONE #: [phone] Exam Date: 01/07/20212 FAX #: Reason: S/P CERVICAL LAMINECTOMY EXAMS: CPT: [id number] CT C-SPINE W/O CONT 36819 (Continued) as discussed above. 2. 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 This report was generated with usage of voice recognition software. at 1510 Reported and signed by: Jayden Terrazas M.D. CC: Zeny Zhang MD Technologist:Ermelinda Arroyo RT(R); Carmen Perdomo CTDI: DLP: Trnscb Date/Time: 01/07/2021 (1509) t.SDR.HPD Orig Print D/T: S: 01/07/2021 (7333) PAGE 2 Signed Report- CT HEAD/BRAIN W/O [id number] 19:57:00 [facility] : 1955 Sex: F Name: ALMA ROSA CORRAL [facility] : 1955 Age/S: 65 / F [id number] [place] Unit #: [id number] Loc: [place] [address] Phys: Undefined Provider Acct: [id number] Dis Date: Status: REG REF PHONE #: [phone] Exam Date: 01/05/2021 1843 FAX #: Reason: flat affect EXAMS: CPT: [id number] CT HEAD/BRAIN W/O CONT 00707 Exam: CT head without contrast. Location: H [...] the gyri and sulci is consistent with mild,diffuse cerebral atrophy. Periventricular ischemic white matter changes are present along with scattered microinfarcts in the basal ganglia, periventricular and subcortical deep white matter. The brainparenchyma and the CSF spaces are otherwise unremarkable. No mass, midline shift, hemorrhage, edema or hydrocephalus is seen. The visualized paranasal sinuses are clear. The mastoid air cells are well pneumatized. The bony calvarium is intact. Impression: 1. No acute intracranial abnormality. 2. Atrophy. 3. Atherosclerotic microvascular disease. 4. Otherwise unremarkable exam. at 1957 Reported and signed by: John Alonso M.D. CC: Technologist:Lisandra Murguia RT(R)(CT) CTDI: DLP: Trnscb Date/Time: 01/05/2021 (1957) tLIBIA Orig Print D/T: S: 01/05/2021 (1999) PAGE 1 Signed ReportCT, SPINE, CERVICAL, WO [id number] 11:25:00 Unlisted Reason for Exam - Click Yes and Enter Reason Below->YesUnlisted Reason for Exam->[facility]op [facility] : 1955 Sex: FFINAL REPORT EXAM: CERVICAL SPINE CT WITHOUT CONTRAST [...] MDReport Verified Date/Time: 01/03/2021 11:25:10 Reading Location: [place] [facility] Reading [facility] spine cervical without IV [id number] 11:25:00Interface, External Ris In - 01/03/2021 11:27 AM CDTFINAL REPORT EXAM: CERVICALSPINE CT WITHOUT CONTRAST CLINICAL INDICATION: Neck pain, [...] MDReport Verified Date/Time: 01/03/2021 11:25:10 Reading Location: [facility], NON [id number] 08:36:00Reason for exam:->pneumoniaShould this be performed at the bedside?->Yes [facility] : 1955 Sex: FFINAL REPORT INDICATION:Pneumonia. COMPARISON:12/30/2020. TECHNIQUE:Frontal view of chest. FINDINGS:Right subclavian approach central venous catheter tip at atrial caval junction.Elevatedright hemidiaphragm.Persistent infiltrate in right lower lobe.Mild pulmonary vascular congestion.No pleural effusion or pneumothorax. IMPRESSION:Right lower lobe infectious infiltrate persists. Signed:Pal aPrkinson Verified Date/Time: 01/03/2021 08:36:21 Reading Location: [facility] Radiology Reading Room XR chest 1 view portable / [id number] 08:36:00Interface, External Ris In - 01/03/2021 8:38 AM CDTFINAL REPORT INDICATION:Pneumonia. COMPARISON:12/30/2020. TECHNIQUE:Frontal view of chest. FINDINGS:Right subclavian approach central venous catheter tip at atrial caval junction.Elevated right hemidiaphragm.Persistent infiltrate inright lower lobe.Mild pulmonary vascular congestion.No pleural effusion or pneumothorax. IMPRESSION:Right lower lobe infectious infiltrate persists. Signed: Pal Parkinson Verified Date/Time: 01/03/2021 08:36:21 Reading Location: [facility] Radiology [facility] FranciscoComprehensive metabolic [id number] 05:56:00 Test Item Value Reference Range Interpretation Comments Protein, Total (test 5.8 See_Comment L [Autom ated code = 2885-2) message] The system which generated this result transmit melquiades reference range : 6.0 - 8.5 gm/dL . The reference range was not u sed to interpret th is result as normal/abnormal . Albumin (test code = 3.0 g/dL 3.5-5 L 96054-4) Alkaline Phosphatase 48 U/L 30-115 (test code = 6768-6) Total Bilirubin (test 0.4 mg/dL 0.1-1.2 code = 1975-2) Sodium (test code = 134 meq/L 135-148 L 2951-2) Potassium (test code 3.9 meq/L 3.6-5.5 = 2823-3) Chloride (test code = 98 meq/L 98-106 2075-0) CO2 (test code = 24 meq/L 20-29 2028-9) BUN (test code = 82 mg/dL 10-26 H 3094-0) Creatinine (test code 7.00 mg/dL 0.5-1.2 H = 2160-0) Glucose (test code = 198 mg/dL 70-110 H 2345-7) Calcium (test code = 8.8 mg/dL 8.5-10.5 70569-7) AST (test code = 29 U/L 5-40 1920-8) ALT (test code = 6 U/L 5-50 1742-6) EGFR (test code = 7 mL/min/1.73 [place] [address]-3) NOT ACCURATE CREATININE CLEARANCE IN PREDICTING GLOMERULAR FILTRATION RATE . ESTIMATED GFR I S NOT APPLICABLE FOR DIALYSIS PATIEN TS. BEKAH (test code = BEKAH) It Integration Architect ID - [id number] r ID - [id number] r ID - [id number] r ID - [id number] r ID - [id number] r ID - [id number] r ID - [id number] r ID - [id number] r ID - [id number] r ID - [id number] r ID - [id number] r ID - [id number] r ID - [id number] r ID - [id number] r ID - [id number] r ID - [id number] Lab Interpretation Abnormal (test code = 87321-5) [facility] CenterCOMPRE[facility] METABOLIC [id number] 05:56:00 Test Item Value Reference Range Interpretation [...] S NOT APPLICABLE FOR DIALYSIS PATIEN TS. It Integration Architect ID - [id number] ID - [id number] ID - [id number] ID - [id number] ID - [id number] ID - [id number] ID - [id number] ID - [id number] ID - [id number] ID - [id number] ID - [id number] ID - [id number] ID - [id number] ID - [id number] ID - [id number] ID - [id number] 05:51:00 Test Item Value Reference Range Interpretation Comments Magnesium (test code = 2.6 mg/dL 1.5-3 93483-3) BEKAH (test code = BEKAH) It Integration Architect ID - [id number] ID - [id number] ID - [id number] ID - [id number] Lab Interpretation (test Normal code = 86865-2) [facility] CenterMAGNESIUM2021-07-13 05:51:00 Test Item Value Reference Range Interpretation Comments MAGNESIUM (BEAKER) (test code = 2.6 mg/dL 1.5-3.0 627) It Integration Architect ID - [id number] ID - [id number] ID - [id number] ID - [id number] with platelet count + automated [id number] 05:38:00 Test Item Value Reference Range Interpretation Comments WBC (test code = 6690-2) 11.9 See_Comment H [A utomated message] The system Zank generated this result transmitted ref erence range: 4.0 - 10 .0 K/L. The refe rence range was not u sed to interpret this result as normal/abnor mal. RBC (test code = 789-8) 3.68 See_Comment L [Au tomated message] The system Zank generated this result transmitted ref erence range: 4.00 - 5 .00 M/L. The refe rence range was not u sed to interpret this result as normal/abnor mal. MCHC (test code = 786-4) 32.1 See_Comment L [A utomated message] The system Zank generated this result transmitted ref erence range: [...] See_Comment [Aut omated message] 777-3) The system Zank generated this result transmitted ref erence range: 150 - 43 0 K/CU MM. The referen ce range was not u sed to interpret this result as normal/abnor mal. MPV (test code = 11.3 fL 6-11.5 61380-2) nRBC (test code = 413) 0 See_Comment [Aut omated message] The system Zank generated this result transmitted ref erence range: [...] H [Aut omated message] 670) The system Zank generated this result transmitted ref erence range: 1.80 - 8 .00 K/L. The refe rence range was not u sed to interpret this result as normal/abnor mal. # Lymphs (test code = 0.32 See_Comment L [Auto mated message] 414) The system Zank generated this result transmitted ref erence range: 1.48 - 4 .50 K/L. The refe rence range was not u sed to interpret this result as normal/abnor mal. # Monos (test code = 0.84 See_Comment [Autom ated message] 415) The system Zank generated this result transmitted ref erence range: 0.00 - 1 .30 K/L. The refe rence range was not u sed to interpret this result as normal/abnor mal. # Eos (test code = 416) 0.00 See_Comment [Au tomated message] The system Zank generated this result transmitted ref erence range: 0.00 - 0 .50 K/L. The refe rence range was not u sed to interpret this result as normal/abnor mal. # Baso (test code = 417) 0.02 See_Comment [A utomated message] The system Zank generated this result transmitted ref erence range: 0.00 - 0 .20 K/L. The refe rence range was not u sed to interpret this result as normal/abnor mal. Immature 3 % 0-0 H Granulocytes-Relative (test code = 2801) Lab Interpretation (test Abnormal code = 33784-8) [facility] W/PLT COUNT & AUTO [id number] 05:38:00 Test Item Value Reference Range Interpretation [...] (BEAKER) (test code = 2801) Basic Metabolic [id number] 06:17:00 Test Item Value Reference Range Interpretation Comments Sodium (test code = 135 meq/L 177-807 4590-2) Potassium (test code = 4.0 meq/L 3.6-5.5 2823-3) Chloride (test code = 98 meq/L 98-106 2075-0) CO2 (test code = 24 meq/L 20-29 2028-9) BUN (test code = 71 mg/dL 10-26 H 3094-0) Creatinine (test code 6.95 mg/dL 0.5-1.2 H = 2160-0) Glucose (test code = 202 mg/dL 70-110 H 2345-7) Calcium (test code = 8.7 mg/dL 8.5-10.5 00421-2) EGFR (test code = 7 mL/min/1.73 [place] [address]-7) NOT ACCURATE CREATININE CLEARANCE IN PREDICTING GLOMERULAR FILTRATION RATE . ESTIMATED GFR I S NOT APPLICABLE FOR DIALYSIS PATIENTS. BEKAH (test code = BEKAH) It Integration Architect ID - [id number] ID - [id number] ID - [id number] ID - [id number] ID - [id number] ID - [id number] ID - YHZD78Udfaohqt ID - [id number] ID - [id number] ID - [id number] ID - MSXG69Fwsnhway ID - [id number] ID - [id number] Lab Interpretation Abnormal (test code = 76235-3) [facility] METABOLIC [id number] 06:17:00 Test Item Value Reference Range Interpretation Comments SODIUM (BEAKER) 135 meq/L 135-148 (test code = 381) POTASSIUM (BEAKER) 4.0 meq/L 3.6-5.5 (test code = 379) CHLORIDE (BEAKER) 98 meq/L 98-106 (test code = 382) CO2 (BEAKER) (test 24 meq/L 20-29 code = 355) BLOOD UREA NITROGEN 71 [...] S NOT APPLICABLE FOR DIALYSIS PATIEN TS. It Integration Architect ID - [id number] ID - [id number] ID - [id number] ID - [id number] ID - [id number] ID - [id number] ID - PISJ54Eydkucuk ID - [id number] ID - NLUI79Azsnibjf ID - VANU54Klcedtta ID - HTEC04Twwixyjs ID - [id number] ID - [id number] W/PLT COUNT & AUTO [id number] 06:06:00 Test Item Value Reference Range Interpretation [...] (BEAKER) (test code = 2801) BASIC METABOLIC [id number] 06:09:00 Test Item Value Reference Range Interpretation [...] S NOT APPLICABLE FOR DIALYSIS PATIEN TS. It Integration Architect ID - [id number] ID - ycri53Lsottmjc ID - fhzq52Xplrprkb ID - rato26Xxnfdwse ID - ltib60Iusrbugf ID - tbir26Iptxxrup ID - [id number] ID - clct51Umfaxokr ID - gwbq72Qygbfdmg ID - [id number] 05:54:00 Test Item Value Reference Range Interpretation Comments Phosphorus (test code = 4.2 mg/dL 2.5-4.5 2777-1) BEKAH (test code = BEKAH) It Integration Architect ID - [id number] ID - obxb51Jklwnejg ID - zpnc52Fiqrgxcg ID - [id number] Lab Interpretation (test Normal code = 88914-8) [facility]PHOSPHORUS2021-07-11 05:54:00 Test Item Value Reference Range Interpretation Comments PHOSPHORUS (BEAKER) (test code = 4.2 mg/dL 2.5-4.5 604) It Integration Architect ID - [id number] ID - [id number] ID - kyhn88Zigtnces ID - [id number] CBC W/PLT COUNT & AUTO [id number] 05:47:00 Test Item Value Reference Range Interpretation [...] H PERCENT (BEAKER) (test code = 2801) [id number] 15:01:00 Test Item Value Reference Range Interpretation Comments PTT (test code = 46619-1) 26.9 See_Comment Fi nal Information (Auto Output) [Automated mess age] The system Zank generated this result transmitted ref erence range: 23.0 - 3 5.0 seconds. The re ference range was not u sed to interpret this result as normal/abnor mal. Lab Interpretation (test Normal code = 36098-6) [facility] CenterAPTT2021-07-10 15:01:00 Test Item Value Reference Range Interpretation Comments PARTIAL THROMBOPLASTIN 26.9 seconds 23.0-35.0 Final Information TIME (BEAKER) (test (Auto Ou tput) code = 760) BASIC METABOLIC [id number] 07:06:00 Test Item Value Reference Range Interpretation [...] S NOT APPLICABLE FOR DIALYSIS PATIEN TS. It Integration Architect ID - LITOOperator ID - LITOOperator ID - LITOOperator ID - LITOOperator ID - LITOOperator ID - LITOOperator ID - LITOOperator ID - LITOOperator ID - LITOOperator ID - LITOOperator ID - LITOOperator ID - LITOOperator ID - KRYSTA [id number] 06:03:00 Test Item Value Reference Range Interpretation Comments PHOSPHORUS (BEAKER) 4.2 mg/dL 2.5-4.5 Specimen markedly (test code = 604) hemolyzed It Integration Architect ID - LITOOperator ID - LITOOperator ID - LITOOperator ID - LITOCBC W/PLT COUNT & AUTO [id number] 05:46:00 Test Item Value Reference Range Interpretation [...] CATH PLCMT (JUG/FEM) > 5 Y.O. WITH [id number] 16:14:00Reason for exam:->iv meds [facility] : 1955 Sex: FFINAL REPORT Procedure: Placement [...] maximal sterile barrier technique were utilized for thisstudy. The right internal jugular vein was imaged initially disclosing patency but with some sluggish flow. The skin site overlying the right internal jugular vein was then prepped, draped and anestheti zed. Real-time ultrasound guidance was used to access the internal jugular vein. Guidewire was then advanced centrally but would not extend below the clavicle. A small catheter was then inserted and eventually, a guidewire was advanced through an obstruction in the lower right internal jugular vein. Subsequent to this, the tract was dilated and a 7 Mongolian double lumen triple-lumen was placed with itstip in the upper portion of the right atrium. The catheter was then flushed and secured in place by means of sutures. CONCLUSION: Placement of triple-lumen central line. 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 A small catheter was then inserted and eventually, a guidewire was advanced through anobstruction in the lower right internal jugular vein. Subsequent to this, the tract was dilated and a 7 Mongolian double lumen triple-lumen was placed with its tip in the upper portion of the right atrium. The catheter was then flushed and secured in place by means of sutures. CONCLUSION: Placement of triple-lumen central line. Relatively high-grade stenoses in the lower portion of the right internal jug ular vein Signed: Margo Reddy MDReport Verified Date/Time: 12/30/2020 16:14:05 Reading Location: [facility] Radiology [facility] 1 [facility], NON [id number] 07:49:00Reason for exam:->pneumoniaShould this be performed at the bedside?->Yes [facility] : 1955 Sex: FFINAL REPORT Portable chest, 12/30/2020 Since 12/28/2020, there has been minimal improvement of the hazy bilateral pulmonary opacities, likely related to diminishing edema. Cardiac silhouette remains slightly enlarged. There is no evidence of pneumothorax or substantial pleural effusion. No significant osseous abnormalities are seen. Surgical clips are again noted in the left arm. Signed: Margo Reddy Verified Date/Time: 12/30/2020 07:49:55 Reading Location: [facility] Radiology Reading Room COMPREHENSIVE METABOLIC [id number] 05:59:00 Test Item Value Reference Range Interpretation [...] S NOT APPLICABLE FOR DIALYSIS PATIEN TS. It Integration Architect ID - [id number] ID - [id number] ID - terh71Hwxinckq ID - nfxw07Ndqfjpyz ID - ukcm80Doihcobk ID - pfml66Grrrcgpx ID - dsew81Lsrzivvv ID - tnhv60Uihaszbo ID - ovcu52Rseqshss ID - toja51Njbowxvq ID - qtgj61Etisxosf ID - jmpz20Pltrwbxa ID - vinp31Diacmjnb ID - klwr65Vwgvavsl ID - isaz62Unikherx ID - ogso23QHHFJADKJ2382-25-47 05:49:00 Test Item Value Reference Range Interpretation Comments MAGNESIUM (BEAKER) (test code = 1.8 mg/dL 1.5-3.0 627) It Integration Architect ID - [id number] ID - [id number] ID - vnhj67Pqoewzws ID - [id number] [id number] 05:46:00 Test Item Value Reference Range Interpretation Comments PHOSPHORUS (BEAKER) (test code = 4.4 mg/dL 2.5-4.5 604) It Integration Architect ID - [id number] W/PLT COUNT & AUTO [id number] 05:07:00 Test Item Value Reference Range Interpretation [...] 0-0 H PERCENT (BEAKER) (test code = 7181) CT, SPINE, CERVICAL, WO [id number] 14:29:00Unlisted Reason for Exam - Click Yes and Enter Reason Below->YesUnlisted Reason for Exam->post cervical laminectomy with new onset RUE pain [facility] : 1955 Sex: FFINAL REPORT CT, SPINE, CERVICAL, WO CONTRAST INDICATION: Unlisted Reason for Exampost cervical laminectomy with new onset RUE pain COMPARISON: None TECHNIQUE: Contiguous noncontrast axial images of the cervical spine are obtained. Computer reformatted coronal and sagittal images are also provided. Axial images are available in both bone and soft tissue algorithm. DOSE REDUCTION: Dosemodulation, iterative reconstruction, and/or weight-based adjustment of the [...] nerve root (annotated on axial image 35). Soft tissues: Expected soft tissue air dorsally at the surgical levels. Moderate right pleural effusion. Other: Visualized intracranial contents are unremarkable. IMPRESSION:Status post C3-C6 laminotomy and reconstruction.The spinal canal is suboptimally evaluated in the absence of intrathecal contrast, but the right C5-6 reconstruction hardware is medially positioned within the spinal canal and appears to abut the right C6 nerve root. Signed: Sue Steenort Verified Date/Time: 12/29/2020 14:29:28 Hepatitis B surface [id number] 13:29:00 Test Item Value Reference Interpretation Comments Range Hep B S Ab (test 118.3 See_Comment H [Automated code = 00628-9) message] The system which generated this result transmitted reference range : <8.0 mIU/mL. e reference range was not used to interpret this result as normal/abnormal . BEKAH (test code = It Integration Architect ID - BEKAH) EMERSONOperator ID - DEAN Lab Interpretation Abnormal (test code = 76642-0) [facility] CenterHEPAT[facility]IS [facility] SURFACE [id number] 13:29:00 Test Item Value Reference Range Interpretation Comments HEPATITIS B SURFACE ANTIBODY 118.3 mIU/mL <8.0 H (BEAKER) (test code = 647) It Integration Architect ID - EMERSONOperator ID - EMERSONARTERIAL DOPPLER ARM, [id number] 09:03:00Reason for exam:->acute right upper extremity pain [facility] : 1955 Sex: FFINAL REPORT Right upper extremity arterial Doppler, 12/29/2020 HISTORY: Pain in the right arm TECHNIQUE: Grayscale, color flow and spectral waveform analysis of the right upper extremityarterial system were obtained. The distal subclavian, axillary, brachial, radial and ulnar arteries are patent with primarily triphasic and occasionally, biphasic flow. Peak systolic velocities are within normal limits. No stenoses are identified. CONCLUSION: Patent arterial system. Signed: Margo Reddy MDReport Verified Date/Time: 12/29/2020 09:03:46 Reading Location: [facility] Radiology Reading Room Arterial doppler arm, right 2020-12-29 09:03:00Interface, External Ris In - 12/29/2020 9:05 AM CDTFINAL REPORT Right upper extremity arterial Doppler, 12/29/2020 HISTORY: Pain in the right arm TECHNIQUE: Grayscale, color flow andspectral waveform analysis of the right upper extremity arterial system were obtained. The distal subclavian, axillary, brachial, radial and ulnar arteries are patent with primarily triphasic and occasionally, biphasic flow. Peak systolic velocities are within normal limits. No stenoses are identified. CONCLUSION: Patent arterial system. Signed: Margo Reddy MDReport Verified Date/Time: 12/29/2020 09:03:46 Reading Location: [facility] Radiology Reading Room Electronically signed by: MARGO REDDY M.D.on 12/29/2020 09:03 [facility] FranciscoVENOUS DOPPLER ARM, [id number] 08:59:00Reason for exam:- >acute pain right upper extremity [facility] : 1955 Sex: FFINAL REPORT Right arm [...] MDReport Verified Date/Time: 12/29/2020 08:59:35 Reading [facility] Venous doppler arm, [id number] 08:59:00Interface, External Ris In - 12/29/2020 9:01 AM CDTFINAL REPORT Right arm venous ultrasonography, 12/29/2020 HISTORY: Pain with possible venous thrombosis, postop TECHNIQUE: Grayscale, color flow and spectral waveform analysis of the right upper extremity venous system were obtainedalong with compression views. The radial, ulnar, brachial, basilic and axillary veins are patent. The internal jugular and visualized portions of the subclavian veins are also patent with appropriate di rectional flow. CONCLUSION: No evidence of venous thrombosis. Signed: Margo Reddy MDReport Verified Date/Time: 12/29/2020 08:59:35 Reading Location: [facility] Radiology Reading Room Electronically signedby: MARGO REDDY M.D. on 12/29/2020 08:59 [facility] FranciscoHepatitis B surface antigen 2020-12-29 06:52:00 Test Item Value Reference Range Interpretation Comments HBsAg Screen (test code Nonreactive Nonreactive = 5195-3) BEKAH (test code = BEKAH) It Integration Architect ID - [id number] Lab Interpretation (test Normal code = 22491-2) [facility] B SURFACE [id number] 06:52:00 Test Item Value Reference Range Interpretation Comments HEPATITIS B SURFACE ANTIGEN (2) Nonreactive Nonreactive (BEAKER) (test code = 2585) It Integration Architect ID - [id number], CHEST, 1 VIEW, NON [id number] 11:49:00Reason for exam:->post opShould this be performed at the bedside?->Yes [facility] : 1955 Sex: FFINAL REPORT Portable chest 12/28/2020 COMPARISON: None There are moderate right perihilar and basilar opacities as well [...] MDReport Verified Date/Time: 12/28/2020 11:49:46 Reading Location: [facility] RadiologyReading Room RAD, HIP, 2-3 VIEWS, LEFT, TO INCL PELVIS WHEN [id number] 10:32:00Reason for exam:->left hip and groin pain x 1 month [facility] ON[facility] : 1955 Sex: FFINAL REPORT Left hip, 12/28/2020 No fractures, dislocations or significant arthritic changes are identified. There are multiple surgical clips in the soft tissues about the medial portion of the left hip and upper thigh. Furthermore, a peritoneal dialysis catheter is seen with its tip outside the pelvis in the left paracolic gutter just above the apex of the left iliac crest. Signed: Margo Reddyort Verified Date/Time: 12/28/2020 10:32:44 Reading Location: [facility] Radiology Reading Room XR hip 2 views [id number] 10:32:00Interface, External Ris In - 12/28/2020 10:34 AM CDTFINAL REPORT Left hip, 12/28/2020 No fractures, dislocations or significant arthritic changes are identified. There are multiple surgical clips in the soft tissues about the medial portion of the left hip and upper thigh. Furthermore, a peritoneal dialysis catheter is seen with its tip outside the pelvis in the left paracolic gutter just above the apex of the left iliac crest. Signed: Margo Reddy Verified Date/Time: 12/28/2020 10:32:44 Reading Location: [facility] Radiology Reading [facility] FranciscoMAGN[facility]UM2021-07-07 06:34:00 Test Item Value Reference Range Interpretation Comments MAGNESIUM (BEAKER) (test code = 1.7 mg/dL 1.5-3.0 627) It Integration Architect ID - [id number] ID - [id number] ID - [id number] ID - [id number] METABOLIC [id number] 06:34:00 Test Item Value Reference Range Interpretation [...] S NOT APPLICABLE FOR DIALYSIS PATIEN TS. It Integration Architect ID - [id number] ID - [id number] ID - [id number] ID - [id number] ID - [id number] ID - [id number] ID - [id number] ID - OMGRU524Aoxvwpnl ID - WMPJJ862Kdclsmlx ID - JINWE482Fesfdeaz ID - [id number] ID - JBWIZ715Aogvjwgy ID - HGMVE008Jpiafiql ID - VZIRH181Rzbzrnjp ID - [id number] ID - [id number] W/PLT COUNT & AUTO [id number] 05:49:00 Test Item Value Reference Range Interpretation [...] H PERCENT (BEAKER) (test code = 2801) abdullahi [id number] 16:06:00 Test Item Value Reference Range Interpretation Comments ABO Grouping (test code = 2588) B [id number] Rh Factor (test code = 2589) POS 12/27/2020, 1054 [facility] CenterFL, FLUORO, NON-SPECIFIC, UP TO 1 [id number] 12:50:00Reason for exam:->surgery [facility] : 1955 Sex: FFluoroscopic unit utilized for a procedure performed in the OR. No interpretation was requested. Refer tothe operative report for findings. Refer to PACS for patient radiation dose information.FL fluoro non-specific up to 1 [id number] 12:50:00 Interface, External Ris In - 12/27/2020 12:50 PM CDTFluoroscopic unit utilized for a procedure performed in the OR. No interpretation was requested. Refer to the operative report for findings. Refer toPACS for patient radiation dose information.[facility] CenterType and screen, [id number] 09:27:00 Test Item Value Reference Range Interpretation Comments ABO/RH AUTOMATED (BEAKER) (test B POSITIVE ECHO code = 2260) Ab Scrn (test code = 890-4) NEGATIVE ECHO [facility] CenterPotassium2021-07-[facility] 09:10:00 Test Item Value Reference Range Interpretation Comments Potassium (test code = 3.5 meq/L 3.6-5.5 L 2823-3) BEKAH (test code = BEKAH) It Integration Architect ID - [id number] ID - [id number] ID - [id number] ID - [id number] Lab Interpretation (test Abnormal code = 91840-6) [facility] CenterPT/[id number] 09:10:00 Test Item Value Reference Interpretation Comments [...] (test code = 22.2 See_Comment L Final 65915-0) Information (Auto Output) [Automated message] The system [...] valves. Lab Interpretation Abnormal (test code = 41611-9) [facility]/[id number] 09:10:00 Test Item Value Reference Range Interpretation Comments PROTIME (BEAKER) (test 11.6 seconds 9.3-12.0 Final Information code = 759) (Auto Output) INR (BEAKER) (test 1.05 See_Comment Final Inf ormation code = 370) (Auto Output) [Automated mess age] The system whic h generated this result transmit melquiades reference range [...] is 2.5-3.5 for patients with mechanical heart valves.[id number] 09:10:00 Test Item Value Reference Range Interpretation Comments POTASSIUM (BEAKER) (test code = 3.5 meq/L 3.6-5.5 L 379) It Integration Architect ID - [id number] ID - [id number] ID - [id number] ID - [id number] BASIC METABOLIC [id number] 11:58:00 Test Item Value Reference Range Interpretation [...] (test code = 697) EGFR (BEAKER) (test INSUFFIC IENT CLINICAL code = 1092) DATA TO CALCULA TE ESTIMATED GFR. It Integration Architect ID - [id number] ID - [id number] ID - [id number] ID - [id number] ID - [id number] ID - [id number] ID - [id number] ID - [id number] ID - [id number] ID - [id number] ID - [id number] ID - [id number] ID - [id number] PT/[id number] 11:55:00 Test Item Value Reference Range Interpretation Comments PROTIME (BEAKER) (test 12.0 seconds 9.3-12.0 Final Information code = 759) (Auto Output) INR (BEAKER) (test 1.09 See_Comment Final Inf ormation code = 370) (Auto Output) [Automated mess age] The system [employer] generated this result transmit melquiades reference range [...] mechanical heart valves.CBC W/PLT COUNT & AUTO [id number] 11:42:00 Test Item Value Reference Range Interpretation [...] 0-0 PERCENT (BEAKER) (test code = 2801) CHEM [id number] 15:09:00 Test Item Value Reference Range Interpretation Comments Potassium Lvl (test code = Potassium 3.6 3.5-5.1 Lvl) [facility] [employer] [id number] 15:09:00 Test Item Value Reference Range Interpretation Comments Chloride Lvl (test code = Chloride Lvl) 107 95-109 [facility] [employer]2020-12-03 15:09:00 Test Item Value Reference Range Interpretation Comments CO2 (test code = CO2) 24 24-32 [facility]2020-12-03 15:09:00 Test Item Value Reference Range Interpretation Comments Calcium Lvl (test code = Calcium Lvl) 9.7 8.5-10.5 [facility] [place]2020-12-03 15:09:00 Test Item Value Reference Range Interpretation Comments AGAP (test code = AGAP) 10.6 10.0-20.0 [employer]2020-12-03 15:09:00 Test Item Value Reference Range Interpretation Comments eGFR (test code = eGFR) 10 [facility] [employer] [id number] 15:09:00 Test Item Value Reference Range Interpretation Comments ABO/Rh (test code = ABO/Rh) B POS [facility] [employer] [id number] 15:09:00 Test Item Value Reference Range Interpretation Comments Antibody Scrn (test Negative (05/26/20 9:09 code = Antibody Scrn) AM) [employer] [id number] 15:09:00 Test Item Value Reference Range Interpretation Comments Glucose Lvl (test code = Glucose Lvl) 84 70-99 [facility] [place]2020-12-03 15:09:00 Test Item Value Reference Range Interpretation Comments BUN (test code = BUN) 20 - [facility] [employer] [id number] 15:09:00 Test Item Value Reference Range Interpretation Comments Creatinine Lvl (test code = Creatinine 4.97 0.50-1.40 Lvl) [facility] [employer] [id number] 15:09:00 Test Item Value Reference Range Interpretation Comments Sodium Lvl (test code = Sodium Lvl) 138 135-145 [facility] [employer] [id number] 15:09:00 Test Item Value Reference Range Interpretation Comments Potassium Lvl (test code = Potassium 3.6 3.5-5.1 Lvl) [facility] [employer] [id number] 15:09:00 Test Item Value Reference Range Interpretation Comments Chloride Lvl (test code = Chloride Lvl) 107 95-109 [facility] [employer] [id number] 15:09:00 Test Item Value Reference Range Interpretation Comments CO2 (test code = CO2) 24 24-32 [facility] [employer] [id number] 15:09:00 Test Item Value Reference Range Interpretation Comments Calcium Lvl (test code = Calcium Lvl) 9.7 8.5-10.5 [facility] [employer] [id number] 15:09:00 Test Item Value Reference Range Interpretation Comments AGAP (test code = AGAP) 10.6 10.0-20.0 [facility] [employer] [id number] 15:09:00 Test Item Value Reference Range Interpretation Comments eGFR (test code = eGFR) 10 [facility] [employer] [id number] 15:09:00 Test Item Value Reference Range Interpretation Comments ABO/Rh (test code = ABO/Rh) B POS [facility] [employer] [id number] 15:09:00 Test Item Value Reference Range Interpretation Comments Antibody Scrn (test Negative (05/26/20 9:09 code = Antibody Scrn) AM) [facility] [employer] [id number] 15:09:00 Test Item Value Reference Range Interpretation Comments Glucose Lvl (test code = Glucose Lvl) 84 70-99 [facility] [employer] [id number] 15:09:00 Test Item Value Reference Range Interpretation Comments BUN (test code = BUN) 20 - [facility] [id number] 15:09:00 Test Item Value Reference Range Interpretation Comments Creatinine Lvl (test code = Creatinine 4.97 0.50-1.40 Lvl) [facility] [id number] 15:09:00 Test Item Value Reference Range Interpretation Comments Sodium Lvl (test code = Sodium Lvl) 138 135-145 [facility] [id number] 15:09:00 Test Item Value Reference Range Interpretation Comments Potassium Lvl (test code = Potassium 3.6 3.5-5.1 Lvl) [facility] [id number] 15:09:00 Test Item Value Reference Range Interpretation Comments Chloride Lvl (test code = Chloride Lvl) 107 95-109 [facility] [id number] 15:09:00 Test Item Value Reference Range Interpretation Comments CO2 (test code = CO2) 24 24-32 [facility] [id number] 15:09:00 Test Item Value Reference Range Interpretation Comments Calcium Lvl (test code = Calcium Lvl) 9.7 8.5-10.5 [facility] [id number] 15:09:00 Test Item Value Reference Range Interpretation Comments AGAP (test code = AGAP) 10.6 10.0-20.0 [facility] [id number] 15:09:00 Test Item Value Reference Range Interpretation Comments eGFR (test code = eGFR) 10 [facility] Hospital[facility] [employer] [facility] [id number] 15:09:00 Test Item Value Reference Range Interpretation Comments ABO/Rh (test code = ABO/Rh) B POS [facility] [employer] [facility] [id number] 15:09:00 Test Item Value Reference Range Interpretation Comments Antibody Scrn (test Negative (05/26/20 9:09 code = Antibody Scrn) AM) [facility] [id number] 15:09:00 Test Item Value Reference Range Interpretation Comments Glucose Lvl (test code = Glucose Lvl) 84 70-99 [facility] SouthCV[facility] Inc [id number] 15:09:00 Test Item Value Reference Range Interpretation Comments BUN (test code = BUN) 20 - [facility] [id number] 15:09:00 Test Item Value Reference Range Interpretation Comments Creatinine Lvl (test code = Creatinine 4.97 0.50-1.40 Lvl) [facility] [employer] [id number] 15:09:00 Test Item Value Reference Range Interpretation Comments Sodium Lvl (test code = Sodium Lvl) 138 135-145 [facility] [employer] [id number] 15:09:00 Test Item Value Reference Range Interpretation Comments Potassium Lvl (test code = Potassium 3.6 3.5-5.1 Lvl) [facility] [employer] [id number] 15:09:00 Test Item Value Reference Range Interpretation Comments Chloride Lvl (test code = Chloride Lvl) 107 95-109 [facility] [employer] [id number] 15:09:00 Test Item Value Reference Range Interpretation Comments CO2 (test code = CO2) 24 24-32 [facility] [employer] [id number] 15:09:00 Test Item Value Reference Range Interpretation Comments Calcium Lvl (test code = Calcium Lvl) 9.7 8.5-10.5 [facility] [employer] [id number] 15:09:00 Test Item Value Reference Range Interpretation Comments AGAP (test code = AGAP) 10.6 10.0-20.0 [facility] [employer] [id number] 15:09:00 Test Item Value Reference Range Interpretation Comments eGFR (test code = eGFR) 10 [facility] [employer] [id number] 15:09:00 Test Item Value Reference Range Interpretation Comments ABO/Rh (test code = ABO/Rh) B POS [facility] [employer] [id number] 15:09:00 Test Item Value Reference Range Interpretation Comments Antibody Scrn (test Negative (05/26/20 9:09 code = Antibody Scrn) AM) [facility] [employer] [id number] 15:09:00 Test Item Value Reference Range Interpretation Comments Glucose Lvl (test code = Glucose Lvl) 84 70-99 [facility] [employer] [id number] 15:09:00 Test Item Value Reference Range Interpretation Comments BUN (test code = BUN) 20 7-22 [facility] [employer] [id number] 15:09:00 Test Item Value Reference Range Interpretation Comments Creatinine Lvl (test code = Creatinine 4.97 0.50-1.40 Lvl) [facility] [employer] [id number] 15:09:00 Test Item Value Reference Range Interpretation Comments Sodium Lvl (test code = Sodium Lvl) 138 135-145 [facility] Hos[id number] 13:47:00 Test Item Value Reference Range Interpretation Comments Coronavirus (COVID-19) Not Detected (05/26/20 KAYLEE (test code = 7:47 AM) Coronavirus (COVID-19) KAYLEE) [facility] [id number] 13:47:00 Test Item Value Reference Range Interpretation Comments Coronavirus (COVID-19) Not Detected (05/26/20 KAYLEE (test code = 7:47 AM) Coronavirus (COVID-19) KAYLEE) [facility] SouthPikdrwqPZSGWVPPJM2071-08-85 13:47:00 Test Item Value Reference Range Interpretation Comments Coronavirus (COVID-19) Not Detected (05/26/20 KAYLEE (test code = 7:47 AM) Coronavirus (COVID-19) KAYLEE) [facility] [id number] 13:47:00 Test Item Value Reference Range Interpretation Comments Coronavirus (COVID-19) Not Detected (05/26/20 KAYLEE (test code = 7:47 AM) Coronavirus (COVID-19) KAYLEE) [facility] [employer] [id number] 15:31:00 Test Item Value Reference Range Interpretation Comments ABO/Rh (test code = ABO/Rh) B POS [facility] [employer] [id number] 15:31:00 Test Item Value Reference Range Interpretation Comments Antibody Scrn (test Negative (05/17/20 code = Antibody Scrn) 9:31 AM) [employer] [id number] 15:31:00 Test Item Value Reference Range Interpretation Comments Glucose Lvl (test code = Glucose Lvl) 91 70-99 [facility] [employer] [id number] 15:31:00 Test Item Value Reference Range Interpretation Comments BUN (test code = BUN) 29 7-22 [place] [id number] 15:31:00 Test Item Value Reference Range Interpretation Comments Creatinine Lvl (test code = Creatinine 5.79 0.50-1.40 Lvl) [facility] [employer] [id number] 15:31:00 Test Item Value Reference Range Interpretation Comments Sodium Lvl (test code = Sodium Lvl) 141 135-145 [place] [id number] 15:31:00 Test Item Value Reference Range Interpretation Comments Potassium Lvl (test code = Potassium 3.9 3.5-5.1 Lvl) [place] 868370-11-24 15:31:00 Test Item Value Reference Range Interpretation Comments Chloride Lvl (test code = Chloride Lvl) 108 95-109 [place] [id number] 15:31:00 Test Item Value Reference Range Interpretation Comments CO2 (test code = CO2) 27 24-32 [place] 868370-11-24 15:31:00 Test Item Value Reference Range Interpretation Comments Calcium Lvl (test code = Calcium Lvl) 9.9 8.5-10.5 [place] 868370-11-24 15:31:00 Test Item Value Reference Range Interpretation Comments AGAP (test code = AGAP) 9.9 10.0-20.0 [place] 868370-11-24 15:31:00 Test Item Value Reference Range Interpretation Comments eGFR (test code = eGFR) 7 [place] 842420-11-24 15:31:00 Test Item Value Reference Range Interpretation Comments WBC (test code = WBC) 5.2 3.7-10.4 [place] 842420-11-24 15:31:00 Test Item Value Reference Range Interpretation Comments RBC (test code = RBC) 3.61 4.20-5.40 [place] 842420-11-24 15:31:00 Test Item Value Reference Range Interpretation Comments Hgb (test code = Hgb) 10.4 12.0-16.0 [place] 842420-11-24 15:31:00 Test Item Value Reference Range Interpretation Comments Hct (test code = Hct) 33.1 36.0-48.0 [place] [address]-11-24 15:31:00 Test Item Value Reference Range Interpretation Comments MCV (test code = MCV) 91.8 80.0-98.0 [place] [address]-11-24 15:31:00 Test Item Value Reference Range Interpretation Comments MCH (test code = MCH) 28.8 pg 27.0-31.0 [place] 842420-11-24 15:31:00 Test Item Value Reference Range Interpretation Comments MCHC (test code = MCHC) 31.3 32.0-36.[address] [facility] H[id number] 15:31:00 Test Item Value Reference Range Interpretation Comments RDW (test code = RDW) 15.9 11.5-14.5 [place] 842420-11-24 15:31:00 Test Item Value Reference Range Interpretation Comments Platelet (test code = Platelet) 180 133-[address] [facility] Hos[id number] 15:31:00 Test Item Value Reference Range Interpretation Comments MPV (test code = MPV) 9.2 7.4-10.[address] [facility] [facility] HospitalSwosljiYSRWSNUPZF7419-92-43 15:31:00 Test Item Value Reference Range Interpretation Comments PT (test code = PT) 14.8 s 12.0-14.[address] [facility] [facility] HospitalDexhxzuWEZQSBVCJZ4846-61-10 15:31:00 Test Item Value Reference Range Interpretation Comments INR (test code = INR) 1.15 1 0.85-1.[address] [facility] [facility] HospitalDctjtxeKBTQQEBZGS8155-56-39 15:31:00 Test Item Value Reference Range Interpretation Comments PTT (test code = PTT) 29.5 s 22.9-35.[address] [facility] [facility] HospitalYhajyllTASPLKOVGE6783-15-23 15:31:00 Test Item Value Reference Range Interpretation Comments Segs (test code = Segs) 74.6 45.0-75.[address] [facility] HospitalPbxzgusLHEHFCFNKQ9279-76-59 15:31:00 Test Item Value Reference Range Interpretation Comments Lymphocytes (test code = Lymphocytes) 11.0 20.0-40.[address] [facility] [facility] HospitalUwxspevYTSWYUAIFG8721-60-65 15:31:00 Test Item Value Reference Range Interpretation Comments Monocytes (test code = Monocytes) 11.0 2.0-12.0 [place] 842420-11-24 15:31:00 Test Item Value Reference Range Interpretation Comments Eosinophils (test code = 2.6 See_Comment [A utomated message] The Eosinophils) system which ge nerated this result tra nsmitted reference range : <=4.0. The reference r eileen was not used to int erpret this result as normal/abnormal . [facility] HospitalExlqjjvRHMBCXTERG6360-55-03 15:31:00 Test Item Value Reference Range Interpretation Comments Basophils (test code = 0.8 See_Comment [Aut omated message] The Basophils) system which ge nerated this result tra nsmitted reference range : <=1.0. The reference r eileen was not used to int erpret this result as normal/abnormal . [facility] SouthNgnbzvoFOUJCDQARZ2744-00-90 15:31:00 Test Item Value Reference Range Interpretation Comments Neutrophils # (test code = Neutrophils 3.9 1.5-8.1 #) [facility] SouthGjsenxuLTHONHOOBU3063-38-86 15:31:00 Test Item Value Reference Range Interpretation Comments Lymphocytes # (test code = Lymphocytes 0.6 1.0-5.5 #) [facility] SouthLwuxfycKEKXOLMXRP3946-26-17 15:31:00 Test Item Value Reference Range Interpretation Comments Monocytes # (test code 0.6 See_Comment [Aut omated message] The = Monocytes #) system which generated this result tra nsmitted reference range : <=0.8. The reference r eileen was not used to int erpret this result as normal/abnormal . [facility] SouthBjcixeiAGWYRWKLXK7928-46-17 15:31:00 Test Item Value Reference Range Interpretation Comments Eosinophils # (test code 0.1 See_Comment [A utomated message] The = Eosinophils #) system whic h generated this result tra nsmitted reference range : <=0.5. The reference r eileen was not used to int erpret this result as normal/abnormal . [facility] [employer] [id number] 15:31:00 Test Item Value Reference Range Interpretation Comments ABO/Rh (test code = ABO/Rh) B POS [facility] [employer] [id number] 15:31:00 Test Item Value Reference Range Interpretation Comments Antibody Scrn (test Negative (05/17/20 code = Antibody Scrn) 9:31 AM) [facility] [employer] [id number] 15:31:00 Test Item Value Reference Range Interpretation Comments Glucose Lvl (test code = Glucose Lvl) 91 70-99 [facility] [employer] [id number] 15:31:00 Test Item Value Reference Range Interpretation Comments BUN (test code = BUN) 29 7-22 [facility] [id number] 15:31:00 Test Item Value Reference Range Interpretation Comments Creatinine Lvl (test code = Creatinine 5.79 0.50-1.40 Lvl) [place] 868370-11-24 15:31:00 Test Item Value Reference Range Interpretation Comments Sodium Lvl (test code = Sodium Lvl) 141 135-145 [place] 868370-11-24 15:31:00 Test Item Value Reference Range Interpretation Comments Potassium Lvl (test code = Potassium 3.9 3.5-5.1 Lvl) [place] 868370-11-24 15:31:00 Test Item Value Reference Range Interpretation Comments Chloride Lvl (test code = Chloride Lvl) 108 95-109 [place] 868370-11-24 15:31:00 Test Item Value Reference Range Interpretation Comments CO2 (test code = CO2) 27 24-32 [place] 868370-11-24 15:31:00 Test Item Value Reference Range Interpretation Comments Calcium Lvl (test code = Calcium Lvl) 9.9 8.5-10.5 [place] 868370-11-24 15:31:00 Test Item Value Reference Range Interpretation Comments AGAP (test code = AGAP) 9.9 10.0-20.0 [place] 868370-11-24 15:31:00 Test Item Value Reference Range Interpretation Comments eGFR (test code = eGFR) 7 [place] 842420-11-24 15:31:00 Test Item Value Reference Range Interpretation Comments WBC (test code = WBC) 5.2 3.7-10.4 [place] 842420-11-24 15:31:00 Test Item Value Reference Range Interpretation Comments RBC (test code = RBC) 3.61 4.20-5.40 [place] 842420-11-24 15:31:00 Test Item Value Reference Range Interpretation Comments Hgb (test code = Hgb) 10.4 12.0-16.0 [place] [address]-11-24 15:31:00 Test Item Value Reference Range Interpretation Comments Hct (test code = Hct) 33.1 36.0-48.0 [place] 842420-11-24 15:31:00 Test Item Value Reference Range Interpretation Comments MCV (test code = MCV) 91.8 80.0-98.0 [place] 842420-11-24 15:31:00 Test Item Value Reference Range Interpretation Comments MCH (test code = MCH) 28.8 pg 27.0-31.0 [facility]MbrmfgoEALCYNIUUP4390-29-41 15:31:00 Test Item Value Reference Range Interpretation Comments MCHC (test code = MCHC) 31.3 32.0-36.0 [facility] HospitalWdshtqdFKVZUIYBSD7645-87-95 15:31:00 Test Item Value Reference Range Interpretation Comments RDW (test code = RDW) 15.9 11.5-14.5 [facility] HospitalIzcdrbuTCJVGLVTWD2396-96-16 15:31:00 Test Item Value Reference Range Interpretation Comments Platelet (test code = Platelet) 180 133-[address] [facility] [facility] HospitalIpcokgcDVJEJEJSSP3218-21-04 15:31:00 Test Item Value Reference Range Interpretation Comments MPV (test code = MPV) 9.2 7.4-10.[address] [facility] HospitalRkifqkrVEVZBTTNPA8900-09-66 15:31:00 Test Item Value Reference Range Interpretation Comments PT (test code = PT) 14.8 s 12.0-14.[address] [facility] HospitalDgmgwrwTBZWBMPUKK2604-39-12 15:31:00 Test Item Value Reference Range Interpretation Comments INR (test code = INR) 1.15 1 0.85-1.[address] [facility] HospitalItnrjqiDJBHBPSDIC6691-41-72 15:31:00 Test Item Value Reference Range Interpretation Comments PTT (test code = PTT) 29.5 s 22.9-35.[address] [facility] HospitalSvpdrnkGTUTLAMJOJ2357-62-63 15:31:00 Test Item Value Reference Range Interpretation Comments Segs (test code = Segs) 74.6 45.0-75.[address] [facility] HospitalDtlgiyiRJSETYCLZB3697-71-26 15:31:00 Test Item Value Reference Range Interpretation Comments Lymphocytes (test code = Lymphocytes) 11.0 20.0-40.[address] [facility] HospitalBaigfbaYYWFISZQFR3626-09-16 15:31:00 Test Item Value Reference Range Interpretation Comments Monocytes (test code = Monocytes) 11.0 2.0-12.[address] [facility] HospitalJxbnxtvHITSVPPMEY1462-71-22 15:31:00 Test Item Value Reference Range Interpretation Comments Eosinophils (test code = 2.6 See_Comment [A utomated message] The Eosinophils) system which ge nerated this result tra nsmitted reference range : <=4.0. The reference r eileen was not used to int erpret this result as normal/abnormal . [place] 842420-11-24 15:31:00 Test Item Value Reference Range Interpretation Comments Basophils (test code = 0.8 See_Comment [Aut omated message] The Basophils) system which ge nerated this result tra nsmitted reference range : <=1.0. The reference r eileen was not used to int erpret this result as normal/abnormal . [facility] HospitalXpdstqbSGUPBYMITH7787-52-04 15:31:00 Test Item Value Reference Range Interpretation Comments Neutrophils # (test code = Neutrophils 3.9 1.5-8.1 #) [facility] HospitalOulxviqYUMHONJVMC8075-30-96 15:31:00 Test Item Value Reference Range Interpretation Comments Lymphocytes # (test code = Lymphocytes 0.6 1.0-5.5 #) [facility] HospitalEgbudpaJJPBAHFCJD9524-53-14 15:31:00 Test Item Value Reference Range Interpretation Comments Monocytes # (test code 0.6 See_Comment [Aut omated message] The = Monocytes #) system which generated this result tra nsmitted reference range : <=0.8. The reference r eileen was not used to int erpret this result as normal/abnormal . [facility] HospitalHwdgxhuLWGVWDAULK7616-13-74 15:31:00 Test Item Value Reference Range Interpretation Comments Eosinophils # (test code 0.1 See_Comment [A utomated message] The = Eosinophils #) system whic h generated this result tra nsmitted reference range : <=0.5. The reference r eileen was not used to int erpret this result as normal/abnormal . [facility] [id number] 15:31:00 Test Item Value Reference Range Interpretation Comments ABO/Rh (test code = ABO/Rh) B [facility] [id number] 15:31:00 Test Item Value Reference Range Interpretation Comments Antibody Scrn (test Negative (05/17/20 code = Antibody Scrn) 9:31 AM) [facility] [id number] 15:31:00 Test Item Value Reference Range Interpretation Comments Glucose Lvl (test code = Glucose Lvl) 91 70-99 [facility] [id number] 15:31:00 Test Item Value Reference Range Interpretation Comments BUN (test code = BUN) 29 7-22 [facility] [id number] 15:31:00 Test Item Value Reference Range Interpretation Comments Creatinine Lvl (test code = Creatinine 5.79 0.50-1.40 Lvl) [place] [id number] 15:31:00 Test Item Value Reference Range Interpretation Comments Sodium Lvl (test code = Sodium Lvl) 141 135-145 [place] 868370-11-24 15:31:00 Test Item Value Reference Range Interpretation Comments Potassium Lvl (test code = Potassium 3.9 3.5-5.1 Lvl) [place] 868370-11-24 15:31:00 Test Item Value Reference Range Interpretation Comments Chloride Lvl (test code = Chloride Lvl) 108 95-109 [place] 868370-11-24 15:31:00 Test Item Value Reference Range Interpretation Comments CO2 (test code = CO2) -32 [place] 868370-11-24 15:31:00 Test Item Value Reference Range Interpretation Comments Calcium Lvl (test code = Calcium Lvl) 9.9 8.5-10.5 [place] 868370-11-24 15:31:00 Test Item Value Reference Range Interpretation Comments AGAP (test code = AGAP) 9.9 10.0-20.0 [place] 868370-11-24 15:31:00 Test Item Value Reference Range Interpretation Comments eGFR (test code = eGFR) [address] [facility] [facility] HospitalNyxclwbAKLEWNWJKE2148-88-07 15:31:00 Test Item Value Reference Range Interpretation Comments WBC (test code = WBC) 5.2 3.7-10.4 [place] 842420-11-24 15:31:00 Test Item Value Reference Range Interpretation Comments RBC (test code = RBC) 3.61 4.20-5.40 [place] 842420-11-24 15:31:00 Test Item Value Reference Range Interpretation Comments Hgb (test code = Hgb) 10.4 12.0-16.0 [place] [address]-11-24 15:31:00 Test Item Value Reference Range Interpretation Comments Hct (test code = Hct) 33.1 36.0-48.0 [place] [address]-11-24 15:31:00 Test Item Value Reference Range Interpretation Comments MCV (test code = MCV) 91.8 80.0-98.[address] [facility] HospitalXbhuwkzOEZTINOAXE4056-58-94 15:31:00 Test Item Value Reference Range Interpretation Comments MCH (test code = MCH) 28.8 pg 27.0-31.[address] [facility] HospitalAuyczntXNMBLXWHLK8550-37-87 15:31:00 Test Item Value Reference Range Interpretation Comments MCHC (test code = MCHC) 31.3 32.0-36.[address] [facility] HospitalGzqnnasYHSFBICLJX5739-29-60 15:31:00 Test Item Value Reference Range Interpretation Comments RDW (test code = RDW) 15.9 11.5-14.[address] [facility] HospitalJanvnplUYQSQFNZJD0300-15-65 15:31:00 Test Item Value Reference Range Interpretation Comments Platelet (test code = Platelet) 180 133-[address] [facility] HospitalYtplcmuITXVEZWNND1589-95-82 15:31:00 Test Item Value Reference Range Interpretation Comments MPV (test code = MPV) 9.2 7.4-10.[address] [facility] HospitalVekirqiPNSMZYRDQP9923-82-52 15:31:00 Test Item Value Reference Range Interpretation Comments PT (test code = PT) 14.8 s 12.0-14.[address] [facility] [facility] HospitalJlltqhmOMIZFVYFTD6045-46-78 15:31:00 Test Item Value Reference Range Interpretation Comments INR (test code = INR) 1.15 1 0.85-1.[address] [facility] HospitalOjxfajyJQUYPCROZL6199-95-73 15:31:00 Test Item Value Reference Range Interpretation Comments PTT (test code = PTT) 29.5 s 22.9-35.[address] [facility] [facility] HospitalInluimxOTIXIQLXNP9009-83-15 15:31:00 Test Item Value Reference Range Interpretation Comments Segs (test code = Segs) 74.6 45.0-75.[address] [facility] HospitalZrbkcfhOJTTTNQDLN9148-92-13 15:31:00 Test Item Value Reference Range Interpretation Comments Lymphocytes (test code = Lymphocytes) 11.0 20.0-40.[address] [facility] HospitalCmbymszZBPRKFBJRL7862-31-37 15:31:00 Test Item Value Reference Range Interpretation Comments Monocytes (test code = Monocytes) 11.0 2.0-12.[address] [facility] HospitalMktxwlnTLODBYBOBT7131-13-46 15:31:00 Test Item Value Reference Range Interpretation Comments Eosinophils (test code = 2.6 See_Comment [A utomated message] The Eosinophils) system which ge nerated this result tra nsmitted reference range : <=4.0. The reference r eileen was not used to int erpret this result as normal/abnormal . [facility] SouthTxiwbfwBAQXNRXWNY1165-95-92 15:31:00 Test Item Value Reference Range Interpretation Comments Basophils (test code = 0.8 See_Comment [Aut omated message] The Basophils) system which ge nerated this result tra nsmitted reference range : <=1.0. The reference r eileen was not used to int erpret this result as normal/abnormal . [facility] SouthPfrljmlLRDKLIEACT7340-01-69 15:31:00 Test Item Value Reference Range Interpretation Comments Neutrophils # (test code = Neutrophils 3.9 1.5-8.1 #) [facility] HospitalOxemrslCZNGOPHEGP4510-23-60 15:31:00 Test Item Value Reference Range Interpretation Comments Lymphocytes # (test code = Lymphocytes 0.6 1.0-5.5 #) [facility] HospitalVycbhgbNDUWTDPFIV7910-75-30 15:31:00 Test Item Value Reference Range Interpretation Comments Monocytes # (test code 0.6 See_Comment [Aut omated message] The = Monocytes #) system which generated this result tra nsmitted reference range : <=0.8. The reference r eileen was not used to int erpret this result as normal/abnormal . [facility] SouthAgiokbkMRGSJBEXEY3176-50-63 15:31:00 Test Item Value Reference Range Interpretation Comments Eosinophils # (test code 0.1 See_Comment [A utomated message] The = Eosinophils #) system whic h generated this result tra nsmitted reference range : <=0.5. The reference r eileen was not used to int erpret this result as normal/abnormal . [facility] [employer] [id number] 15:31:00 Test Item Value Reference Range Interpretation Comments ABO/Rh (test code = ABO/Rh) B POS [facility] [employer] [id number] 15:31:00 Test Item Value Reference Range Interpretation Comments Antibody Scrn (test Negative (05/17/20 code = Antibody Scrn) 9:31 AM) [facility] [employer] [id number] 15:31:00 Test Item Value Reference Range Interpretation Comments Glucose Lvl (test code = Glucose Lvl) 91 70-99 [facility] [employer] [id number] 15:31:00 Test Item Value Reference Range Interpretation Comments BUN (test code = BUN) 29 7-22 [facility]2020-11-24 15:31:00 Test Item Value Reference Range Interpretation Comments Creatinine Lvl (test code = Creatinine 5.79 0.50-1.40 Lvl) [facility]2020-11-24 15:31:00 Test Item Value Reference Range Interpretation Comments Sodium Lvl (test code = Sodium Lvl) 141 135-145 [facility]2020-11-24 15:31:00 Test Item Value Reference Range Interpretation Comments Potassium Lvl (test code = Potassium 3.9 3.5-5.1 Lvl) [facility]2020-11-24 15:31:00 Test Item Value Reference Range Interpretation Comments Chloride Lvl (test code = Chloride Lvl) 108 95-109 [facility]2020-11-24 15:31:00 Test Item Value Reference Range Interpretation Comments CO2 (test code = CO2) 27 24-32 [facility]2020-11-24 15:31:00 Test Item Value Reference Range Interpretation Comments Calcium Lvl (test code = Calcium Lvl) 9.9 8.5-10.5 [facility]2020-11-24 15:31:00 Test Item Value Reference Range Interpretation Comments AGAP (test code = AGAP) 9.9 10.0-20.0 [facility]2020-11-24 15:31:00 Test Item Value Reference Range Interpretation Comments eGFR (test code = eGFR) [address] [facility] HospitalModykecMOMXPQVEON5914-50-55 15:31:00 Test Item Value Reference Range Interpretation Comments WBC (test code = WBC) 5.2 3.7-10.4 [place] 842420-11-24 15:31:00 Test Item Value Reference Range Interpretation Comments RBC (test code = RBC) 3.61 4.20-5.[address] [facility] HospitalMydotibVCMHTWEGTD4880-40-87 15:31:00 Test Item Value Reference Range Interpretation Comments Hgb (test code = Hgb) 10.4 12.0-16.0 [place] 842420-11-24 15:31:00 Test Item Value Reference Range Interpretation Comments Hct (test code = Hct) 33.1 36.0-48.0 [place] [address]-11-24 15:31:00 Test Item Value Reference Range Interpretation Comments MCV (test code = MCV) 91.8 80.0-98.[address] [facility] HospitalNdauefbHUQOXZWAWL8603-83-94 15:31:00 Test Item Value Reference Range Interpretation Comments MCH (test code = MCH) 28.8 pg 27.0-31.[address] [facility] HospitalWfznrjmLBVVISCDAP2704-48-13 15:31:00 Test Item Value Reference Range Interpretation Comments MCHC (test code = MCHC) 31.3 32.0-36.[address] [facility] HospitalDpminllFKDBOVUVVE0241-80-40 15:31:00 Test Item Value Reference Range Interpretation Comments RDW (test code = RDW) 15.9 11.5-14.[address] [facility] HospitalUoedfrbWOIRLDDVFY9100-59-80 15:31:00 Test Item Value Reference Range Interpretation Comments Platelet (test code = Platelet) 180 133-[address] [facility] [facility] [facility] HospitalLhzcmwoFUJATWRZRM8558-00-36 15:31:00 Test Item Value Reference Range Interpretation Comments MPV (test code = MPV) 9.2 7.4-10.[address] [facility] HospitalIbxifktHTJEXKKEJV3319-75-44 15:31:00 Test Item Value Reference Range Interpretation Comments PT (test code = PT) 14.8 s 12.0-14.[address] [facility] [facility] HospitalEzrnsngIKTNKYNOWV4584-67-67 15:31:00 Test Item Value Reference Range Interpretation Comments INR (test code = INR) 1.15 1 0.85-1.[address] [facility] [facility] HospitalJpdinicPXTNILEXUR4150-16-23 15:31:00 Test Item Value Reference Range Interpretation Comments PTT (test code = PTT) 29.5 s 22.9-35.[address] [facility] HospitalXoexgcnOWRQSNHLPD4172-15-85 15:31:00 Test Item Value Reference Range Interpretation Comments Segs (test code = Segs) 74.6 45.0-75.[address] [facility] HospitalIffqtbzHKMPCBUONA6031-02-28 15:31:00 Test Item Value Reference Range Interpretation Comments Lymphocytes (test code = Lymphocytes) 11.0 20.0-40.[address] [facility] HospitalKczjvsuDHXIVAGIFY8648-02-30 15:31:00 Test Item Value Reference Range Interpretation Comments Monocytes (test code = Monocytes) 11.0 2.0-12.[address] [facility] HospitalMuqxbakXGSIICEVVU6615-65-44 15:31:00 Test Item Value Reference Range Interpretation Comments Eosinophils (test code = 2.6 See_Comment [A utomated message] The Eosinophils) system which ge nerated this result tra nsmitted reference range : <=4.0. The reference r eileen was not used to int erpret this result as normal/abnormal . [facility] HospitalVejxtahJRNNVJXPUD7218-16-43 15:31:00 Test Item Value Reference Range Interpretation Comments Basophils (test code = 0.8 See_Comment [Aut omated message] The Basophils) system which ge nerated this result tra nsmitted reference range : <=1.0. The reference r eileen was not used to int erpret this result as normal/abnormal . [facility] HospitalWkvlderYJXGNUIKUP5225-14-86 15:31:00 Test Item Value Reference Range Interpretation Comments Neutrophils # (test code = Neutrophils 3.9 1.5-8.1 #) [facility] HospitalRgzygcqIPYJUJGSPE1383-41-36 15:31:00 Test Item Value Reference Range Interpretation Comments Lymphocytes # (test code = Lymphocytes 0.6 1.0-5.5 #) [facility] HospitalMsfrdmcKIICLWZKGO3529-52-75 15:31:00 Test Item Value Reference Range Interpretation Comments Monocytes # (test code 0.6 See_Comment [Aut omated message] The = Monocytes #) system which generated this result tra nsmitted reference range : <=0.8. The reference r eileen was not used to int erpret this result as normal/abnormal . [facility] HospitalWtotfzbDXAJXKRMIK6577-96-98 15:31:00 Test Item Value Reference Range Interpretation Comments Eosinophils # (test code 0.1 See_Comment [A utomated message] The = Eosinophils #) system [facility] h generated this result tra nsmitted reference range : <=0.5. The reference r eileen was not used to int erpret this result as normal/abnormal . [facility] SystemNkcvjnzOSZNFDISYB5238-86-60 14:47:00 Test Item Value Reference Range Interpretation Comments Coronavirus (COVID-19) Not Detected KAYLEE (test code = (05/17/20 8:47 AM) Coronavirus (COVID-19) KAYLEE) [facility] SystemXevutigUPETQKFWQP4781-24-37 14:47:00 Test Item Value Reference Range Interpretation Comments Coronavirus (COVID-19) Not Detected KAYLEE (test code = (05/17/20 8:47 AM) Coronavirus (COVID-19) KAYLEE) [facility] SystemGrvlixbUJPJWSVDUS0478-08-19 14:47:00 Test Item Value Reference Range Interpretation Comments Coronavirus (COVID-19) Not Detected KAYLEE (test code = (05/17/20 8:47 AM) Coronavirus (COVID-19) KAYLEE) [facility] SystemTrcdykjDJQXZIDNSY7393-04-23 14:47:00 Test Item Value Reference Range Interpretation Comments Coronavirus (COVID-19) Not Detected KAYLEE (test code = (05/17/20 8:47 AM) Coronavirus (COVID-19) KAYLEE) [facility]CV[facility] [id number] 10:29:00 Test Item Value Reference Range Interpretation Comments Glucose Lvl (test code = Glucose Lvl) 91 70-99 [facility]CV[facility] [id number] 10:29:00 Test Item Value Reference Range Interpretation Comments BUN (test code = BUN) 44 7-22 [facility] [id number] 10:29:00 Test Item Value Reference Range Interpretation Comments Creatinine Lvl (test code = Creatinine 8.12 0.50-1.40 Lvl) [facility] [id number] 10:29:00 Test Item Value Reference Range Interpretation Comments Sodium Lvl (test code = Sodium Lvl) 139 135-145 [facility] [id number] 10:29:00 Test Item Value Reference Range Interpretation Comments Potassium Lvl (test code = Potassium 4.2 3.5-5.1 Lvl) [facility] [id number] 10:29:00 Test Item Value Reference Range Interpretation Comments Chloride Lvl (test code = Chloride Lvl) 107 95-109 [facility] [id number] 10:29:00 Test Item Value Reference Range Interpretation Comments CO2 (test code = CO2) 24 24-32 [facility] [id number] 10:29:00 Test Item Value Reference Range Interpretation Comments Calcium Lvl (test code = Calcium Lvl) 8.9 8.5-10.5 [facility] [id number] 10:29:00 Test Item Value Reference Range Interpretation Comments AGAP (test code = AGAP) 12.2 10.0-20.0 [facility] [id number] 10:29:00 Test Item Value Reference Range Interpretation Comments eGFR (test code = eGFR) [address] [facility] HospitalJnwjqgbLVXNRIUSLO0359-98-70 10:29:00 Test Item Value Reference Range Interpretation Comments PT (test code = PT) 15.6 s 12.0-14.[address] [facility] HospitalZrrfabaBDKEYBDWNQ7598-35-78 10:29:00 Test Item Value Reference Range Interpretation Comments INR (test code = INR) 1.23 1 0.85-1.[address] [facility] [facility] HospitalQglxrrwKINOVWJBEX5979-25-92 10:29:00 Test Item Value Reference Range Interpretation Comments PTT (test code = PTT) 34.9 s 22.9-35.[address] [facility] HospitalDrryksuOFYGZAGLBU0046-42-23 10:29:00 Test Item Value Reference Range Interpretation Comments WBC (test code = WBC) 5.0 3.7-10.[address] [facility] HospitalGunwuhnPRZUGVDHUZ9580-59-26 10:29:00 Test Item Value Reference Range Interpretation Comments RBC (test code = RBC) 3.39 4.20-5.[address] HospitalWexltmqDMESPXUYCY6054-29-06 10:29:00 Test Item Value Reference Range Interpretation Comments Hgb (test code = Hgb) 9.8 12.0-16.[address] [facility] HospitalQgrfmycHIKHGHSWZQ0235-06-01 10:29:00 Test Item Value Reference Range Interpretation Comments Hct (test code = Hct) 30.6 36.0-48.[address] HospitalOyjdqwlGYXZFZZIQM9507-55-70 10:29:00 Test Item Value Reference Range Interpretation Comments MCV (test code = MCV) 90.2 80.0-98.[address] [facility] HospitalSrklnkqLVTGKSWOJI3761-60-42 10:29:00 Test Item Value Reference Range Interpretation Comments MCH (test code = MCH) 29.0 pg 27.0-31.[address] [facility] [facility] HospitalZgjpqjsCXATIRPFQQ1007-04-59 10:29:00 Test Item Value Reference Range Interpretation Comments MCHC (test code = MCHC) 32.2 32.0-36.0 [place] 842420-10-16 10:29:00 Test Item Value Reference Range Interpretation Comments RDW (test code = RDW) 15.4 11.5-14.5 [place] 842420-10-16 10:29:00 Test Item Value Reference Range Interpretation Comments Platelet (test code = Platelet) 109 133-[address] [facility] HospitalQiitodxSXPXEEFHAJ6932-42-26 10:29:00 Test Item Value Reference Range Interpretation Comments MPV (test code = MPV) 9.8 7.4-10.4 [place] 842420-10-16 10:29:00 Test Item Value Reference Range Interpretation Comments Segs (test code = Segs) 62.0 45.0-75.[address] [facility] HospitalCxtdaabSUPZRWBEUN1370-49-45 10:29:00 Test Item Value Reference Range Interpretation Comments Lymphocytes (test code = Lymphocytes) 12.7 20.0-40.0 [place] 842420-10-16 10:29:00 Test Item Value Reference Range Interpretation Comments Monocytes (test code = Monocytes) 19.5 2.0-12.[address] [facility] HospitalTbbabsjSCXLQSEFJN9736-20-89 10:29:00 Test Item Value Reference Range Interpretation Comments Eosinophils (test code = 5.1 See_Comment [A utomated message] The Eosinophils) system which ge nerated this result tra nsmitted reference range : <=4.0. The reference r eileen was not used to int erpret this result as normal/abnormal . [facility] HospitalAqpgresUJNBVFZIKH0329-43-00 10:29:00 Test Item Value Reference Range Interpretation Comments Basophils (test code = 0.7 See_Comment [Aut omated message] The Basophils) system which ge nerated this result tra nsmitted reference range : <=1.0. The reference r eileen was not used to int erpret this result as normal/abnormal . [facility] HospitalZyldzgiEQEFXDCMRB5517-32-63 10:29:00 Test Item Value Reference Range Interpretation Comments Neutrophils # (test code = Neutrophils 3.1 1.5-8.1 #) [facility] HospitalJlmctylBMHHFFFKVV4152-97-29 10:29:00 Test Item Value Reference Range Interpretation Comments Lymphocytes # (test code = Lymphocytes 0.6 1.0-5.5 #) [facility] HospitalTwahtobOJGTDKSLAY0302-02-78 10:29:00 Test Item Value Reference Range Interpretation Comments Monocytes # (test code 1.0 See_Comment [Aut omated message] The = Monocytes #) system which generated this result tra nsmitted reference range : <=0.8. The reference r eileen was not used to int erpret this result as normal/abnormal . [place] 842420-10-16 10:29:00 Test Item Value Reference Range Interpretation Comments Eosinophils # (test code 0.3 See_Comment [A utomated message] The = Eosinophils #) system whic h generated this result tra nsmitted reference range : <=0.5. The reference r eileen was not used to int erpret this result as normal/abnormal . [facility] SouthCebybihBQICYOCTAI8999-37-83 10:29:00 Test Item Value Reference Range Interpretation Comments Hep Bs Ag (test code Negative *NA*(04/08/20 = Hep Bs Ag) 5:29 AM) [facility]2020-10-16 10:29:00 Test Item Value Reference Range Interpretation Comments Glucose Lvl (test code = Glucose Lvl) 91 70-99 [facility]2020-10-16 10:29:00 Test Item Value Reference Range Interpretation Comments BUN (test code = BUN) 44 7-22 [facility]2020-10-16 10:29:00 Test Item Value Reference Range Interpretation Comments Creatinine Lvl (test code = Creatinine 8.12 0.50-1.40 Lvl) [facility]2020-10-16 10:29:00 Test Item Value Reference Range Interpretation Comments Sodium Lvl (test code = Sodium Lvl) 139 135-145 [facility]2020-10-16 10:29:00 Test Item Value Reference Range Interpretation Comments Potassium Lvl (test code = Potassium 4.2 3.5-5.1 Lvl) [facility]2020-10-16 10:29:00 Test Item Value Reference Range Interpretation Comments Chloride Lvl (test code = Chloride Lvl) 107 95-109 [facility]2020-10-16 10:29:00 Test Item Value Reference Range Interpretation Comments CO2 (test code = CO2) 24 24-32 [facility]2020-10-16 10:29:00 Test Item Value Reference Range Interpretation Comments Calcium Lvl (test code = Calcium Lvl) 8.9 8.5-10.5 [facility]2020-10-16 10:29:00 Test Item Value Reference Range Interpretation Comments AGAP (test code = AGAP) 12.2 10.0-20.0 [facility]2020-10-16 10:29:00 Test Item Value Reference Range Interpretation Comments eGFR (test code = eGFR) 5 [facility] HospitalQjclextRINOMPUYFA2298-57-75 10:29:00 Test Item Value Reference Range Interpretation Comments PT (test code = PT) 15.6 s 12.0-14.7 [facility] HospitalUmhzbpoOZCTYMGSDX5516-48-35 10:29:00 Test Item Value Reference Range Interpretation Comments INR (test code = INR) 1.23 1 0.85-1.17 [facility] HospitalTucisfxRRIAMPBSQD0358-60-53 10:29:00 Test Item Value Reference Range Interpretation Comments PTT (test code = PTT) 34.9 s 22.9-35.8 [facility] HospitalFuvtuwbYLAAOXMUFE3280-80-88 10:29:00 Test Item Value Reference Range Interpretation Comments WBC (test code = WBC) 5.0 3.7-10.[address] [facility] HospitalZpzkkiyBTUVZRBEPY5852-98-66 10:29:00 Test Item Value Reference Range Interpretation Comments RBC (test code = RBC) 3.39 4.20-5.40 [facility] HospitalGqzzrecFNTLOAMELV7527-65-30 10:29:00 Test Item Value Reference Range Interpretation Comments Hgb (test code = Hgb) 9.8 12.0-16.0 [facility] HospitalDijevqoPMGYKLEXSL0326-29-35 10:29:00 Test Item Value Reference Range Interpretation Comments Hct (test code = Hct) 30.6 36.0-48.[address] [facility] HospitalQshrmwkMNWKMRBNIP3058-17-99 10:29:00 Test Item Value Reference Range Interpretation Comments MCV (test code = MCV) 90.2 80.0-98.0 [facility] HospitalFyqzczfXUQQUAILSM5936-70-15 10:29:00 Test Item Value Reference Range Interpretation Comments MCH (test code = MCH) 29.0 pg 27.0-31.0 [facility] HospitalIqxkrgwDBZWHKSFDB8433-49-43 10:29:00 Test Item Value Reference Range Interpretation Comments MCHC (test code = MCHC) 32.2 32.0-36.0 [facility] HospitalYgxavmrJUSBSRXABD3318-43-04 10:29:00 Test Item Value Reference Range Interpretation Comments RDW (test code = RDW) 15.4 11.5-14.5 [facility] HospitalSpqrzaeUFVFRGVGWU6479-52-83 10:29:00 Test Item Value Reference Range Interpretation Comments Platelet (test code = Platelet) 109 133-450 [place] 842420-10-16 10:29:00 Test Item Value Reference Range Interpretation Comments MPV (test code = MPV) 9.8 7.4-10.[address] [facility] HospitalPlxrcqbRSQQGBWNND5569-62-54 10:29:00 Test Item Value Reference Range Interpretation Comments Segs (test code = Segs) 62.0 45.0-75.[address] [facility] HospitalIhgtzrkQZYMXFZENH2337-72-99 10:29:00 Test Item Value Reference Range Interpretation Comments Lymphocytes (test code = Lymphocytes) 12.7 20.0-40.0 [place] [id number] 10:29:00 Test Item Value Reference Range Interpretation Comments Monocytes (test code = Monocytes) 19.5 2.0-12.[address] [facility] HospitalLsqiwzyMSEYJENITU3585-98-29 10:29:00 Test Item Value Reference Range Interpretation Comments Eosinophils (test code = 5.1 See_Comment [A utomated message] The Eosinophils) system which ge nerated this result tra nsmitted reference range : <=4.0. The reference r eileen was not used to int erpret this result as normal/abnormal . [facility] HospitalCbxarqwMEPHJRHXKF0299-11-32 10:29:00 Test Item Value Reference Range Interpretation Comments Basophils (test code = 0.7 See_Comment [Aut omated message] The Basophils) system which ge nerated this result tra nsmitted reference range : <=1.0. The reference r eileen was not used to int erpret this result as normal/abnormal . [facility] HospitalAzdfgrdRQKMELNNZM9868-58-28 10:29:00 Test Item Value Reference Range Interpretation Comments Neutrophils # (test code = Neutrophils 3.1 1.5-8.1 #) [facility] HospitalWpntfcsJHLQPIPEZO5055-86-47 10:29:00 Test Item Value Reference Range Interpretation Comments Lymphocytes # (test code = Lymphocytes 0.6 1.0-5.5 #) [facility] HospitalNvfusjyGMTDIATYCZ0744-87-23 10:29:00 Test Item Value Reference Range Interpretation Comments Monocytes # (test code 1.0 See_Comment [Aut omated message] The = Monocytes #) system which generated this result tra nsmitted reference range : <=0.8. The reference r eileen was not used to int erpret this result as normal/abnormal . [facility] HospitalRnodqnrXSKKGIBCSR8241-53-64 10:29:00 Test Item Value Reference Range Interpretation Comments Eosinophils # (test code 0.3 See_Comment [A utomated message] The = Eosinophils #) system whic h generated this result tra nsmitted reference range : <=0.5. The reference r eileen was not used to int erpret this result as normal/abnormal . [facility] SouthFwzpncuDSOYVZNOCS5777-58-97 10:29:00 Test Item Value Reference Range Interpretation Comments Hep Bs Ag (test code Negative *NA*(04/08/20 = Hep Bs Ag) 5:29 AM) [facility] [id number] 10:29:00 Test Item Value Reference Range Interpretation Comments Glucose Lvl (test code = Glucose Lvl) 91 70-99 [facility] [id number] 10:29:00 Test Item Value Reference Range Interpretation Comments BUN (test code = BUN) 44 7-22 [facility]2020-10-16 10:29:00 Test Item Value Reference Range Interpretation Comments Creatinine Lvl (test code = Creatinine 8.12 0.50-1.40 Lvl) [facility] [id number] 10:29:00 Test Item Value Reference Range Interpretation Comments Sodium Lvl (test code = Sodium Lvl) 139 135-145 [facility] [id number] 10:29:00 Test Item Value Reference Range Interpretation Comments Potassium Lvl (test code = Potassium 4.2 3.5-5.1 Lvl) [facility] [id number] 10:29:00 Test Item Value Reference Range Interpretation Comments Chloride Lvl (test code = Chloride Lvl) 107 95-109 [facility] [id number] 10:29:00 Test Item Value Reference Range Interpretation Comments CO2 (test code = CO2) 24 24-32 [facility] [id number] 10:29:00 Test Item Value Reference Range Interpretation Comments Calcium Lvl (test code = Calcium Lvl) 8.9 8.5-10.5 [facility] [id number] 10:29:00 Test Item Value Reference Range Interpretation Comments AGAP (test code = AGAP) 12.2 10.0-20.0 [facility] [id number] 10:29:00 Test Item Value Reference Range Interpretation Comments eGFR (test code = eGFR) 5 [facility]HjxqvqoFXATPARWHB7851-41-99 10:29:00 Test Item Value Reference Range Interpretation Comments PT (test code = PT) 15.6 s 12.0-14.7 [facility] HospitalSryrxttWEADRQXILA6298-64-60 10:29:00 Test Item Value Reference Range Interpretation Comments INR (test code = INR) 1.23 1 0.85-1.17 [facility] HospitalGexlgvpWAEWHCYTGV8106-07-07 10:29:00 Test Item Value Reference Range Interpretation Comments PTT (test code = PTT) 34.9 s 22.9-35.8 [facility] HospitalFaucuamPHCIAUBTFD5017-27-98 10:29:00 Test Item Value Reference Range Interpretation Comments WBC (test code = WBC) 5.0 3.7-10.[address] HospitalWpsammaZRELKKRZES8475-73-12 10:29:00 Test Item Value Reference Range Interpretation Comments RBC (test code = RBC) 3.39 4.20-5.40 [facility] HospitalWqnweufZAMMEPOUNB9822-18-37 10:29:00 Test Item Value Reference Range Interpretation Comments Hgb (test code = Hgb) 9.8 12.0-16.0 [facility] HospitalRjvunclRMSKETFIWS1073-48-39 10:29:00 Test Item Value Reference Range Interpretation Comments Hct (test code = Hct) 30.6 36.0-48.0 [facility] HospitalNkknnipDUVQMPFKQD5616-25-06 10:29:00 Test Item Value Reference Range Interpretation Comments MCV (test code = MCV) 90.2 80.0-98.0 [facility] HospitalZvsmmkeMLXANLRXYX7918-90-88 10:29:00 Test Item Value Reference Range Interpretation Comments MCH (test code = MCH) 29.0 pg 27.0-31.0 [facility] HospitalGiqwjxbQOOANYRGYC5146-12-39 10:29:00 Test Item Value Reference Range Interpretation Comments MCHC (test code = MCHC) 32.2 32.0-36.0 [facility] HospitalQlawpmcVIUKKUCNJP5141-73-61 10:29:00 Test Item Value Reference Range Interpretation Comments RDW (test code = RDW) 15.4 11.5-14.5 [facility] HospitalWpzgbypMFELECXGNZ0617-79-93 10:29:00 Test Item Value Reference Range Interpretation Comments Platelet (test code = Platelet) 109 133-450 [facility] HospitalSfpkyksRZLEAVNFHD5750-30-35 10:29:00 Test Item Value Reference Range Interpretation Comments MPV (test code = MPV) 9.8 7.4-10.[address] [facility] HospitalJtyxkcyUNTTOKILVI3639-34-65 10:29:00 Test Item Value Reference Range Interpretation Comments Segs (test code = Segs) 62.0 45.0-75.[address] [facility] HospitalMbpwkshIXHOALKSKT4527-35-94 10:29:00 Test Item Value Reference Range Interpretation Comments Lymphocytes (test code = Lymphocytes) 12.7 20.0-40.[address] [facility] HospitalQflkndvUJHKCROZYT5355-43-96 10:29:00 Test Item Value Reference Range Interpretation Comments Monocytes (test code = Monocytes) 19.5 2.0-12.[address] [facility] HospitalEvzxyvyCSNBOANFIF5910-18-62 10:29:00 Test Item Value Reference Range Interpretation Comments Eosinophils (test code = 5.1 See_Comment [A utomated message] The Eosinophils) system which ge nerated this result tra nsmitted reference range : <=4.0. The reference r eileen was not used to int erpret this result as normal/abnormal . [facility] HospitalUeewlktAAAGURUECC8168-17-94 10:29:00 Test Item Value Reference Range Interpretation Comments Basophils (test code = 0.7 See_Comment [Aut omated message] The Basophils) system which ge nerated this result tra nsmitted reference range : <=1.0. The reference r eileen was not used to int erpret this result as normal/abnormal . [facility] HospitalHuwubjfVIKNTORGVN2962-59-16 10:29:00 Test Item Value Reference Range Interpretation Comments Neutrophils # (test code = Neutrophils 3.1 1.5-8.1 #) [facility] HospitalGjxdxxjHNVVJRRCCP7939-21-89 10:29:00 Test Item Value Reference Range Interpretation Comments Lymphocytes # (test code = Lymphocytes 0.6 1.0-5.5 #) [facility] HospitalHazzqxnWECMOIXSXB8126-95-26 10:29:00 Test Item Value Reference Range Interpretation Comments Monocytes # (test code 1.0 See_Comment [Aut omated message] The = Monocytes #) system which generated this result tra nsmitted reference range : <=0.8. The reference r eileen was not used to int erpret this result as normal/abnormal . [facility] HospitalRuiwjecADXYUIRATZ7688-66-15 10:29:00 Test Item Value Reference Range Interpretation Comments Eosinophils # (test code 0.3 See_Comment [A utomated message] The = Eosinophils #) system whic h generated this result tra nsmitted reference range : <=0.5. The reference r eileen was not used to int erpret this result as normal/abnormal . [facility] SouthFccanrwLSNZJAYXRF8928-43-33 10:29:00 Test Item Value Reference Range Interpretation Comments Hep Bs Ag (test code Negative *NA*(04/08/20 = Hep Bs Ag) 5:29 AM) [facility] [id number] 10:29:00 Test Item Value Reference Range Interpretation Comments Glucose Lvl (test code = Glucose Lvl) 91 70-99 [facility] [id number] 10:29:00 Test Item Value Reference Range Interpretation Comments BUN (test code = BUN) 44 7-22 [facility]2020-10-16 10:29:00 Test Item Value Reference Range Interpretation Comments Creatinine Lvl (test code = Creatinine 8.12 0.50-1.40 Lvl) [facility] [id number] 10:29:00 Test Item Value Reference Range Interpretation Comments Sodium Lvl (test code = Sodium Lvl) 139 135-145 [facility] [id number] 10:29:00 Test Item Value Reference Range Interpretation Comments Potassium Lvl (test code = Potassium 4.2 3.5-5.1 Lvl) [facility] [id number] 10:29:00 Test Item Value Reference Range Interpretation Comments Chloride Lvl (test code = Chloride Lvl) 107 95-109 [facility] [id number] 10:29:00 Test Item Value Reference Range Interpretation Comments CO2 (test code = CO2) 24 24-32 [facility] [id number] 10:29:00 Test Item Value Reference Range Interpretation Comments Calcium Lvl (test code = Calcium Lvl) 8.9 8.5-10.5 [facility] [id number] 10:29:00 Test Item Value Reference Range Interpretation Comments AGAP (test code = AGAP) 12.2 10.0-20.0 [facility] [id number] 10:29:00 Test Item Value Reference Range Interpretation Comments eGFR (test code = eGFR) [address] HospitalEeiifpaWIEJANIPNG3289-42-90 10:29:00 Test Item Value Reference Range Interpretation Comments PT (test code = PT) 15.6 s 12.0-14.[address] HospitalIwxfogkNJJHPSOTQS9211-70-02 10:29:00 Test Item Value Reference Range Interpretation Comments INR (test code = INR) 1.23 1 0.85-1.[address] HospitalQpwsxcwQEFLOSKLGZ4254-35-86 10:29:00 Test Item Value Reference Range Interpretation Comments PTT (test code = PTT) 34.9 s 22.9-35.[address] [facility] [facility] HospitalZyalvbqIELHBYFYRI5681-92-23 10:29:00 Test Item Value Reference Range Interpretation Comments WBC (test code = WBC) 5.0 3.7-10.[address] HospitalAoveoxyTLVJBIKZDX9269-68-97 10:29:00 Test Item Value Reference Range Interpretation Comments RBC (test code = RBC) 3.39 4.20-5.[address] HospitalLwbjwmoPMPQUIGJCE2393-81-33 10:29:00 Test Item Value Reference Range Interpretation Comments Hgb (test code = Hgb) 9.8 12.0-16.[address] HospitalJjuxwbmFQWDPBHWKL9726-59-26 10:29:00 Test Item Value Reference Range Interpretation Comments Hct (test code = Hct) 30.6 36.0-48.[address] [facility] HospitalKwhctysGNYOETZEIQ8003-80-26 10:29:00 Test Item Value Reference Range Interpretation Comments MCV (test code = MCV) 90.2 80.0-98.[address] HospitalIuwxgtmNJRQUSRBTL4316-84-56 10:29:00 Test Item Value Reference Range Interpretation Comments MCH (test code = MCH) 29.0 pg 27.0-31.[address] HospitalAxcemouRCYVRYABGY9773-26-19 10:29:00 Test Item Value Reference Range Interpretation Comments MCHC (test code = MCHC) 32.2 32.0-36.[address] HospitalMltpilgLKPGMAWUWG7210-71-38 10:29:00 Test Item Value Reference Range Interpretation Comments RDW (test code = RDW) 15.4 11.5-14.[address] HospitalPrpafwcFWKYNTNQAK0945-92-34 10:29:00 Test Item Value Reference Range Interpretation Comments Platelet (test code = Platelet) 109 133-[address] [facility] [facility] HospitalWktleucDXLMTFMJFY0100-98-52 10:29:00 Test Item Value Reference Range Interpretation Comments MPV (test code = MPV) 9.8 7.4-10.[address] [facility] HospitalBqyxqvcOJRPQTRZCX6435-34-78 10:29:00 Test Item Value Reference Range Interpretation Comments Segs (test code = Segs) 62.0 45.0-75.[address] HospitalUazqftaDVFCWOMSNN5015-57-64 10:29:00 Test Item Value Reference Range Interpretation Comments Lymphocytes (test code = Lymphocytes) 12.7 20.0-40.[address] HospitalDdtvopbBSEKTYDYDV5913-96-39 10:29:00 Test Item Value Reference Range Interpretation Comments Monocytes (test code = Monocytes) 19.5 2.0-12.[address] HospitalBfaqtezTBBEFUJPMJ5443-03-33 10:29:00 Test Item Value Reference Range Interpretation Comments Eosinophils (test code = 5.1 See_Comment [A utomated message] The Eosinophils) system which ge nerated this result tra nsmitted reference range : <=4.0. The reference r eileen was not used to int erpret this result as normal/abnormal . [facility] HospitalUvxyjqxLKXSVMIFOY3666-50-48 10:29:00 Test Item Value Reference Range Interpretation Comments Basophils (test code = 0.7 See_Comment [Aut omated message] The Basophils) system which ge nerated this result tra nsmitted reference range : <=1.0. The reference r eileen was not used to int erpret this result as normal/abnormal . [facility] HospitalJajabwmTXXCADDIRA7523-12-99 10:29:00 Test Item Value Reference Range Interpretation Comments Neutrophils # (test code = Neutrophils 3.1 1.5-8.1 #) [facility] HospitalImsfbgsUJJFAMTULZ3871-24-92 10:29:00 Test Item Value Reference Range Interpretation Comments Lymphocytes # (test code = Lymphocytes 0.6 1.0-5.5 #) [facility] HospitalClijbshGFTEQDKLSI6991-18-64 10:29:00 Test Item Value Reference Range Interpretation Comments Monocytes # (test code 1.0 See_Comment [Aut omated message] The = Monocytes #) system which generated this result tra nsmitted reference range : <=0.8. The reference r eileen was not used to int erpret this result as normal/abnormal . [facility] HospitalYtlvaqfBIFHHFHIVP8358-77-21 10:29:00 Test Item Value Reference Range Interpretation Comments Eosinophils # (test code 0.3 See_Comment [A utomated message] The = Eosinophils #) system Chat& (ChatAnd)ic h generated this result tra nsmitted reference range : <=0.5. The reference r eileen was not used to int erpret this result as normal/abnormal . [facility] SouthYtabsmfDTHAFMGABG2617-31-89 10:29:00 Test Item Value Reference Range Interpretation Comments Hep Bs Ag (test code Negative *NA*(04/08/20 = Hep Bs Ag) 5:29 AM) [facility]2020-10-15 09:49:00 Test Item Value Reference Range Interpretation Comments Glucose Lvl (test code = Glucose Lvl) 110 70-99 [facility] [id number] 09:49:00 Test Item Value Reference Range Interpretation Comments BUN (test code = BUN) 41 7-22 [facility]2020-10-15 09:49:00 Test Item Value Reference Range Interpretation Comments Creatinine Lvl (test code = Creatinine 7.28 0.50-1.40 Lvl) [facility] HospitalAlgaeonFIRSTHE[facility] [id number] 09:49:00 Test Item Value Reference Range Interpretation Comments Sodium Lvl (test code = Sodium Lvl) 141 135-145 [facility] [id number] 09:49:00 Test Item Value Reference Range Interpretation Comments Potassium Lvl (test code = Potassium 4.2 3.5-5.1 Lvl) [facility] HospitalAlgaeonFIRSTHEALTH MO[facility] - [id number] 09:49:00 Test Item Value Reference Range Interpretation Comments Chloride Lvl (test code = Chloride Lvl) 108 95-109 [facility] [id number] 09:49:00 Test Item Value Reference Range Interpretation Comments CO2 (test code = CO2) 24 24-32 [facility]2020-10-15 09:49:00 Test Item Value Reference Range Interpretation Comments Calcium Lvl (test code = Calcium Lvl) 8.8 8.5-10.5 [facility]2020-10-15 09:49:00 Test Item Value Reference Range Interpretation Comments AGAP (test code = AGAP) 13.2 10.0-20.0 [facility] [id number] 09:49:00 Test Item Value Reference Range Interpretation Comments eGFR (test code = eGFR) [address] [facility] HospitalMkqmvdnPIPCLMWHQL3591-75-71 09:49:00 Test Item Value Reference Range Interpretation Comments Segs (test code = Segs) 79.6 45.0-75.0 [place] [address]-10-15 09:49:00 Test Item Value Reference Range Interpretation Comments Lymphocytes (test code = Lymphocytes) 4.6 20.0-40.0 [place] 842420-10-15 09:49:00 Test Item Value Reference Range Interpretation Comments Monocytes (test code = Monocytes) 13.3 2.0-12.0 [place] [address]-10-15 09:49:00 Test Item Value Reference Range Interpretation Comments Eosinophils (test code = 1.9 See_Comment [A utomated message] The Eosinophils) system which ge nerated this result tra nsmitted reference range : <=4.0. The reference r eileen was not used to int erpret this result as normal/abnormal . [place] [address]-10-15 09:49:00 Test Item Value Reference Range Interpretation Comments Basophils (test code = 0.6 See_Comment [Aut omated message] The Basophils) system which ge nerated this result tra nsmitted reference range : <=1.0. The reference r eileen was not used to int erpret this result as normal/abnormal . [place] 842420-10-15 09:49:00 Test Item Value Reference Range Interpretation Comments Neutrophils # (test code = Neutrophils 4.9 1.5-8.1 #) [place] 842420-10-15 09:49:00 Test Item Value Reference Range Interpretation Comments Lymphocytes # (test code = Lymphocytes 0.3 1.0-5.5 #) [place] [address]-10-15 09:49:00 Test Item Value Reference Range Interpretation Comments Monocytes # (test code 0.8 See_Comment [Aut omated message] The = Monocytes #) system which generated this result tra nsmitted reference range : <=0.8. The reference r eileen was not used to int erpret this result as normal/abnormal . [place] [address]-10-15 09:49:00 Test Item Value Reference Range Interpretation Comments Eosinophils # (test code 0.1 See_Comment [A utomated message] The = Eosinophils #) system whic h generated this result tra nsmitted reference range : <=0.5. The reference r eileen was not used to int erpret this result as normal/abnormal . [facility] HospitalVgrgrvwSZXKONFVTX4099-10-70 09:49:00 Test Item Value Reference Range Interpretation Comments WBC (test code = WBC) 6.1 3.7-10.[address] [facility] HospitalZzdobsbACHWMVQHWX6640-57-12 09:49:00 Test Item Value Reference Range Interpretation Comments RBC (test code = RBC) 3.59 4.20-5.[address] [facility] HospitalSklyetgEOZVGHGIVK7430-38-37 09:49:00 Test Item Value Reference Range Interpretation Comments Hgb (test code = Hgb) 10.4 12.0-16.0 [place] 842420-10-15 09:49:00 Test Item Value Reference Range Interpretation Comments Hct (test code = Hct) 32.5 36.0-48.[address] HospitalCjhnorrMTZNWLWQXZ4304-62-79 09:49:00 Test Item Value Reference Range Interpretation Comments MCV (test code = MCV) 90.7 80.0-98.[address] [facility] HospitalGtzkqvuMNEBRPCFMR3362-93-55 09:49:00 Test Item Value Reference Range Interpretation Comments MCH (test code = MCH) 29.0 pg 27.0-31.[address] [facility] HospitalXfewjueNJXZEGMVJD9509-82-51 09:49:00 Test Item Value Reference Range Interpretation Comments MCHC (test code = MCHC) 31.9 32.0-36.[address] [facility] HospitalByymtfmUFJWEZZQCU3025-96-65 09:49:00 Test Item Value Reference Range Interpretation Comments RDW (test code = RDW) 15.4 11.5-14.[address] [facility] HospitalIqhlzcqLMVFLBNNCC4102-29-04 09:49:00 Test Item Value Reference Range Interpretation Comments Platelet (test code = Platelet) 111 133-[address] [facility] [facility] HospitalQnmspzgMUXPRJEBKJ6189-66-75 09:49:00 Test Item Value Reference Range Interpretation Comments MPV (test code = MPV) 9.5 7.4-10.4 [facility]2020-10-15 09:49:00 Test Item Value Reference Range Interpretation Comments Glucose Lvl (test code = Glucose Lvl) 110 70-99 [facility] UBJZR7839-02-74 09:49:00 Test Item Value Reference Range Interpretation Comments BUN (test code = BUN) 41 7-22 [place] 868370-10-15 09:49:00 Test Item Value Reference Range Interpretation Comments Creatinine Lvl (test code = Creatinine 7.28 0.50-1.40 Lvl) [place] 868370-10-15 09:49:00 Test Item Value Reference Range Interpretation Comments Sodium Lvl (test code = Sodium Lvl) 141 135-145 [place] 868370-10-15 09:49:00 Test Item Value Reference Range Interpretation Comments Potassium Lvl (test code = Potassium 4.2 3.5-5.1 Lvl) [place] [address]-10-15 09:49:00 Test Item Value Reference Range Interpretation Comments Chloride Lvl (test code = Chloride Lvl) 108 95-109 [place] 868370-10-15 09:49:00 Test Item Value Reference Range Interpretation Comments CO2 (test code = CO2) 24 24-32 [place] [address]-10-15 09:49:00 Test Item Value Reference Range Interpretation Comments Calcium Lvl (test code = Calcium Lvl) 8.8 8.5-10.5 [place] 868370-10-15 09:49:00 Test Item Value Reference Range Interpretation Comments AGAP (test code = AGAP) 13.2 10.0-20.0 [place] 868370-10-15 09:49:00 Test Item Value Reference Range Interpretation Comments eGFR (test code = eGFR) 6 [place] [address]-10-15 09:49:00 Test Item Value Reference Range Interpretation Comments Segs (test code = Segs) 79.6 45.0-75.0 [place] [address]-10-15 09:49:00 Test Item Value Reference Range Interpretation Comments Lymphocytes (test code = Lymphocytes) 4.6 20.0-40.0 [place] [address]-10-15 09:49:00 Test Item Value Reference Range Interpretation Comments Monocytes (test code = Monocytes) 13.3 2.0-12.0 [place] [address]-10-15 09:49:00 Test Item Value Reference Range Interpretation Comments Eosinophils (test code = 1.9 See_Comment [A utomated message] The Eosinophils) system which ge nerated this result tra nsmitted reference range : <=4.0. The reference r eileen was not used to int erpret this result as normal/abnormal . [facility] HospitalKbjiscbOCELZDMUHJ4717-88-66 09:49:00 Test Item Value Reference Range Interpretation Comments Basophils (test code = 0.6 See_Comment [Aut omated message] The Basophils) system which ge nerated this result tra nsmitted reference range : <=1.0. The reference r eileen was not used to int erpret this result as normal/abnormal . [facility] HospitalDoimybmAJECDZGTZJ2975-97-04 09:49:00 Test Item Value Reference Range Interpretation Comments Neutrophils # (test code = Neutrophils 4.9 1.5-8.1 #) [facility] HospitalSetsiyqCRXSORZORF5049-22-17 09:49:00 Test Item Value Reference Range Interpretation Comments Lymphocytes # (test code = Lymphocytes 0.3 1.0-5.5 #) [facility] HospitalUjlxcpxZSKWSCPJFD3087-80-02 09:49:00 Test Item Value Reference Range Interpretation Comments Monocytes # (test code 0.8 See_Comment [Aut omated message] The = Monocytes #) system which generated this result tra nsmitted reference range : <=0.8. The reference r eileen was not used to int erpret this result as normal/abnormal . [facility] HospitalElavlxzZCQUWNJFMM5045-45-15 09:49:00 Test Item Value Reference Range Interpretation Comments Eosinophils # (test code 0.1 See_Comment [A utomated message] The = Eosinophils #) system whic h generated this result tra nsmitted reference range : <=0.5. The reference r eileen was not used to int erpret this result as normal/abnormal . [facility] HospitalKqtynioXQLNTQQJBT6622-69-83 09:49:00 Test Item Value Reference Range Interpretation Comments WBC (test code = WBC) 6.1 3.7-10.[address] [facility] HospitalLxkynuwTITTGTYFWG7880-49-31 09:49:00 Test Item Value Reference Range Interpretation Comments RBC (test code = RBC) 3.59 4.20-5.40 [place] 842420-10-15 09:49:00 Test Item Value Reference Range Interpretation Comments Hgb (test code = Hgb) 10.4 12.0-16.0 [place] 842420-10-15 09:49:00 Test Item Value Reference Range Interpretation Comments Hct (test code = Hct) 32.5 36.0-48.0 [place] [address]-10-15 09:49:00 Test Item Value Reference Range Interpretation Comments MCV (test code = MCV) 90.7 80.0-98.0 [place] [address]-10-15 09:49:00 Test Item Value Reference Range Interpretation Comments MCH (test code = MCH) 29.0 pg 27.0-31.0 [place] [address]-10-15 09:49:00 Test Item Value Reference Range Interpretation Comments MCHC (test code = MCHC) 31.9 32.0-36.0 [place] [address]-10-15 09:49:00 Test Item Value Reference Range Interpretation Comments RDW (test code = RDW) 15.4 11.5-14.5 [place] [address]-10-15 09:49:00 Test Item Value Reference Range Interpretation Comments Platelet (test code = Platelet) 111 133-450 [place] [address]-10-15 09:49:00 Test Item Value Reference Range Interpretation Comments MPV (test code = MPV) 9.5 7.4-10.4 [place] 868370-10-15 09:49:00 Test Item Value Reference Range Interpretation Comments Glucose Lvl (test code = Glucose Lvl) 110 70-99 [place] 868370-10-15 09:49:00 Test Item Value Reference Range Interpretation Comments BUN (test code = BUN) 41 7-22 [place] 868370-10-15 09:49:00 Test Item Value Reference Range Interpretation Comments Creatinine Lvl (test code = Creatinine 7.28 0.50-1.40 Lvl) [place] 868370-10-15 09:49:00 Test Item Value Reference Range Interpretation Comments Sodium Lvl (test code = Sodium Lvl) 141 135-145 [place] 868370-10-15 09:49:00 Test Item Value Reference Range Interpretation Comments Potassium Lvl (test code = Potassium 4.2 3.5-5.1 Lvl) [place] 868370-10-15 09:49:00 Test Item Value Reference Range Interpretation Comments Chloride Lvl (test code = Chloride Lvl) 108 95-109 [place] [address]-10-15 09:49:00 Test Item Value Reference Range Interpretation Comments CO2 (test code = CO2) 24 24-32 [place] [address]-10-15 09:49:00 Test Item Value Reference Range Interpretation Comments Calcium Lvl (test code = Calcium Lvl) 8.8 8.5-10.5 [place] [address]-10-15 09:49:00 Test Item Value Reference Range Interpretation Comments AGAP (test code = AGAP) 13.2 10.0-20.0 [address]10-15 09:49:00 Test Item Value Reference Range Interpretation Comments eGFR (test code = eGFR) 6 [place] [address]-10-15 09:49:00 Test Item Value Reference Range Interpretation Comments Segs (test code = Segs) 79.6 45.0-75.0 [place] [address]-10-15 09:49:00 Test Item Value Reference Range Interpretation Comments Lymphocytes (test code = Lymphocytes) 4.6 20.0-40.0 [place] [address]-10-15 09:49:00 Test Item Value Reference Range Interpretation Comments Monocytes (test code = Monocytes) 13.3 2.0-12.0 [place] [address]-10-15 09:49:00 Test Item Value Reference Range Interpretation Comments Eosinophils (test code = 1.9 See_Comment [A utomated message] The Eosinophils) system which ge nerated this result tra nsmitted reference range : <=4.0. The reference r eileen was not used to int erpret this result as normal/abnormal . [place] [address]-10-15 09:49:00 Test Item Value Reference Range Interpretation Comments Basophils (test code = 0.6 See_Comment [Aut omated message] The Basophils) system which ge nerated this result tra nsmitted reference range : <=1.0. The reference r eileen was not used to int erpret this result as normal/abnormal . [place] [address]-10-15 09:49:00 Test Item Value Reference Range Interpretation Comments Neutrophils # (test code = Neutrophils 4.9 1.5-8.1 #) [place] [address]-10-15 09:49:00 Test Item Value Reference Range Interpretation Comments Lymphocytes # (test code = Lymphocytes 0.3 1.0-5.5 #) [facility] HospitalOxzamafDKIORJURMX5538-04-52 09:49:00 Test Item Value Reference Range Interpretation Comments Monocytes # (test code 0.8 See_Comment [Aut omated message] The = Monocytes #) system which generated this result tra nsmitted reference range : <=0.8. The reference r eileen was not used to int erpret this result as normal/abnormal . [facility] HospitalCbqmtoyDZYMRIVKOW7085-21-80 09:49:00 Test Item Value Reference Range Interpretation Comments Eosinophils # (test code 0.1 See_Comment [A utomated message] The = Eosinophils #) system whic h generated this result tra nsmitted reference range : <=0.5. The reference r eileen was not used to int erpret this result as normal/abnormal . [place] [address]-10-15 09:49:00 Test Item Value Reference Range Interpretation Comments WBC (test code = WBC) 6.1 3.7-10.4 [place] 842420-10-15 09:49:00 Test Item Value Reference Range Interpretation Comments RBC (test code = RBC) 3.59 4.20-5.40 [place] [address]-10-15 09:49:00 Test Item Value Reference Range Interpretation Comments Hgb (test code = Hgb) 10.4 12.0-16.0 [place] [address]-10-15 09:49:00 Test Item Value Reference Range Interpretation Comments Hct (test code = Hct) 32.5 36.0-48.0 [place] [address]-10-15 09:49:00 Test Item Value Reference Range Interpretation Comments MCV (test code = MCV) 90.7 80.0-98.0 [place] [address]-10-15 09:49:00 Test Item Value Reference Range Interpretation Comments MCH (test code = MCH) 29.0 pg 27.0-31.0 [place] [address]-10-15 09:49:00 Test Item Value Reference Range Interpretation Comments MCHC (test code = MCHC) 31.9 32.0-36.0 [place] 842420-10-15 09:49:00 Test Item Value Reference Range Interpretation Comments RDW (test code = RDW) 15.4 11.5-14.5 [place] [address]-10-15 09:49:00 Test Item Value Reference Range Interpretation Comments Platelet (test code = Platelet) 111 133-450 [place] [address]-10-15 09:49:00 Test Item Value Reference Range Interpretation Comments MPV (test code = MPV) 9.5 7.4-10.4 [place] 868370-10-15 09:49:00 Test Item Value Reference Range Interpretation Comments Glucose Lvl (test code = Glucose Lvl) 110 70-99 [place] 868370-10-15 09:49:00 Test Item Value Reference Range Interpretation Comments BUN (test code = BUN) 41 7-22 [place] [address]-10-15 09:49:00 Test Item Value Reference Range Interpretation Comments Creatinine Lvl (test code = Creatinine 7.28 0.50-1.40 Lvl) [place] 868370-10-15 09:49:00 Test Item Value Reference Range Interpretation Comments Sodium Lvl (test code = Sodium Lvl) 141 135-145 [place] [address]-10-15 09:49:00 Test Item Value Reference Range Interpretation Comments Potassium Lvl (test code = Potassium 4.2 3.5-5.1 Lvl) [place] 868370-10-15 09:49:00 Test Item Value Reference Range Interpretation Comments Chloride Lvl (test code = Chloride Lvl) 108 95-109 [place] 868370-10-15 09:49:00 Test Item Value Reference Range Interpretation Comments CO2 (test code = CO2) 24 24-32 [place] [address]-10-15 09:49:00 Test Item Value Reference Range Interpretation Comments Calcium Lvl (test code = Calcium Lvl) 8.8 8.5-10.5 [place] 868370-10-15 09:49:00 Test Item Value Reference Range Interpretation Comments AGAP (test code = AGAP) 13.2 10.0-20.0 [place] [address]-10-15 09:49:00 Test Item Value Reference Range Interpretation Comments eGFR (test code = eGFR) 6 [place] 842420-10-15 09:49:00 Test Item Value Reference Range Interpretation Comments Segs (test code = Segs) 79.6 45.0-75.0 [place] [address]-10-15 09:49:00 Test Item Value Reference Range Interpretation Comments Lymphocytes (test code = Lymphocytes) 4.6 20.0-40.0 [place] [address]-10-15 09:49:00 Test Item Value Reference Range Interpretation Comments Monocytes (test code = Monocytes) 13.3 2.0-12.0 [place] [address]-10-15 09:49:00 Test Item Value Reference Range Interpretation Comments Eosinophils (test code = 1.9 See_Comment [A utomated message] The Eosinophils) system which ge nerated this result tra nsmitted reference range : <=4.0. The reference r eileen was not used to int erpret this result as normal/abnormal . [address]10-15 09:49:00 Test Item Value Reference Range Interpretation Comments Basophils (test code = 0.6 See_Comment [Aut omated message] The Basophils) system which ge nerated this result tra nsmitted reference range : <=1.0. The reference r eileen was not used to int erpret this result as normal/abnormal . [place] [address]-10-15 09:49:00 Test Item Value Reference Range Interpretation Comments Neutrophils # (test code = Neutrophils 4.9 1.5-8.1 #) [address]10-15 09:49:00 Test Item Value Reference Range Interpretation Comments Lymphocytes # (test code = Lymphocytes 0.3 1.0-5.5 #) [place] [address]-10-15 09:49:00 Test Item Value Reference Range Interpretation Comments Monocytes # (test code 0.8 See_Comment [Aut omated message] The = Monocytes #) system which generated this result tra nsmitted reference range : <=0.8. The reference r eileen was not used to int erpret this result as normal/abnormal . [place] [address]-10-15 09:49:00 Test Item Value Reference Range Interpretation Comments Eosinophils # (test code 0.1 See_Comment [A utomated message] The = Eosinophils #) system ic h generated this result tra nsmitted reference range : <=0.5. The reference r eileen was not used to int erpret this result as normal/abnormal . [facility] HospitalVtlmnemOEWTCSAFMJ6620-18-14 09:49:00 Test Item Value Reference Range Interpretation Comments WBC (test code = WBC) 6.1 3.7-10.[address] HospitalLktbrvuBJHBWOOIZR5016-29-30 09:49:00 Test Item Value Reference Range Interpretation Comments RBC (test code = RBC) 3.59 4.20-5.[address] HospitalPabcqtmRGTMVDYGSI9256-84-62 09:49:00 Test Item Value Reference Range Interpretation Comments Hgb (test code = Hgb) 10.4 12.0-16.[address] [facility] HospitalIkidmbgQSEHWGHIZG5579-51-85 09:49:00 Test Item Value Reference Range Interpretation Comments Hct (test code = Hct) 32.5 36.0-48.[address] [facility] HospitalUseupboZKXEKVAZWJ7916-82-18 09:49:00 Test Item Value Reference Range Interpretation Comments MCV (test code = MCV) 90.7 80.0-98.[address] [facility] HospitalOhnbrfbVKVASIVBEF8977-83-72 09:49:00 Test Item Value Reference Range Interpretation Comments MCH (test code = MCH) 29.0 pg 27.0-31.[address] [facility] HospitalDmwkdbqOEUNGXEYDH2516-78-15 09:49:00 Test Item Value Reference Range Interpretation Comments MCHC (test code = MCHC) 31.9 32.0-36.[address] [facility] HospitalBizvcvbTQWBVZTEWD1941-36-01 09:49:00 Test Item Value Reference Range Interpretation Comments RDW (test code = RDW) 15.4 11.5-14.[address] [facility] HospitalLvbpvrqEKTKCLTURX4287-03-38 09:49:00 Test Item Value Reference Range Interpretation Comments Platelet (test code = Platelet) 111 133-[address] [facility] HospitalCnmgwtoVWYNFYVNUX1289-85-38 09:49:00 Test Item Value Reference Range Interpretation Comments MPV (test code = MPV) 9.5 7.4-10.4 [facility] [id number] 20:57:00 Test Item Value Reference Range Interpretation Comments RBC product (test code Product available = RBC product) 4(04/06/20 3:57 PM) [facility] [id number] 20:57:00 Test Item Value Reference Range Interpretation Comments RBC product (test code Product available = RBC product) 4(04/06/20 3:57 PM) [facility] [employer] [facility] [id number] 20:57:00 Test Item Value Reference Range Interpretation Comments RBC product (test code Product available = RBC product) 4(04/06/20 3:57 PM) [facility] [employer] [facility] [id number] 20:57:00 Test Item Value Reference Range Interpretation Comments RBC product (test code Product available = RBC product) 4(04/06/20 3:57 PM) [facility] [employer] [id number] 16:13:00 Test Item Value Reference Range Interpretation Comments ABO/Rh (test code = ABO/Rh) B POS [facility] [employer] [id number] 16:13:00 Test Item Value Reference Range Interpretation Comments Antibody Scrn (test Negative (04/06/20 code = Antibody Scrn) 11:13 AM) [facility] [employer] [id number] 16:13:00 Test Item Value Reference Range Interpretation Comments ABO/Rh (test code = ABO/Rh) B [facility] [employer] [id number] 16:13:00 Test Item Value Reference Range Interpretation Comments Antibody Scrn (test Negative (04/06/20 code = Antibody Scrn) 11:13 AM) [facility] [employer] [id number] 16:13:00 Test Item Value Reference Range Interpretation Comments ABO/Rh (test code = ABO/Rh) B POS [facility] [employer] [id number] 16:13:00 Test Item Value Reference Range Interpretation Comments Antibody Scrn (test Negative (04/06/20 code = Antibody Scrn) 11:13 AM) [facility] [employer] [id number] 16:13:00 Test Item Value Reference Range Interpretation Comments ABO/Rh (test code = ABO/Rh) B POS [facility] [employer] [id number] 16:13:00 Test Item Value Reference Range Interpretation Comments Antibody Scrn (test Negative (04/06/20 code = Antibody Scrn) 11:13 AM) [employer] [id number] 09:45:00 Test Item Value Reference Range Interpretation Comments Glucose Lvl (test code = Glucose Lvl) 83 70-99 [facility] [employer] [id number] 09:45:00 Test Item Value Reference Range Interpretation Comments BUN (test code = BUN) 36 7-22 [place] 868370-10-14 09:45:00 Test Item Value Reference Range Interpretation Comments Creatinine Lvl (test code = Creatinine 6.40 0.50-1.40 Lvl) [place] 868370-10-14 09:45:00 Test Item Value Reference Range Interpretation Comments Sodium Lvl (test code = Sodium Lvl) 140 135-145 [place] [address]-10-14 09:45:00 Test Item Value Reference Range Interpretation Comments Potassium Lvl (test code = Potassium 3.6 3.5-5.1 Lvl) [place] [address]-10-14 09:45:00 Test Item Value Reference Range Interpretation Comments Chloride Lvl (test code = Chloride Lvl) 107 95-109 [place] [address]-10-14 09:45:00 Test Item Value Reference Range Interpretation Comments CO2 (test code = CO2) 24 24-32 [place] [address]-10-14 09:45:00 Test Item Value Reference Range Interpretation Comments Calcium Lvl (test code = Calcium Lvl) 9.1 8.5-10.5 [place] 868370-10-14 09:45:00 Test Item Value Reference Range Interpretation Comments AGAP (test code = AGAP) 12.6 10.0-20.0 [place] 868370-10-14 09:45:00 Test Item Value Reference Range Interpretation Comments eGFR (test code = eGFR) 7 [place] 926040-10-14 09:45:00 Test Item Value Reference Range Interpretation Comments S Preg (test code = S Negative *NA*(04/06/20 Preg) 4:45 AM) [place] [address]-10-14 09:45:00 Test Item Value Reference Range Interpretation Comments WBC (test code = WBC) 4.5 3.7-10.4 [place] 842420-10-14 09:45:00 Test Item Value Reference Range Interpretation Comments RBC (test code = RBC) 3.73 4.20-5.40 [place] 842420-10-14 09:45:00 Test Item Value Reference Range Interpretation Comments Hgb (test code = Hgb) 10.7 12.0-16.0 [place] 842420-10-14 09:45:00 Test Item Value Reference Range Interpretation Comments Hct (test code = Hct) 33.6 36.0-48.[address] HospitalTdyibjsRLULUBDDHJ0703-77-19 09:45:00 Test Item Value Reference Range Interpretation Comments MCV (test code = MCV) 90.1 80.0-98.[address] HospitalKamdazwMMHZPGOGFR2860-84-37 09:45:00 Test Item Value Reference Range Interpretation Comments MCH (test code = MCH) 28.6 pg 27.0-31.0 [place] [address]-10-14 09:45:00 Test Item Value Reference Range Interpretation Comments MCHC (test code = MCHC) 31.8 32.0-36.[address] HospitalFzcsctmHCDKTCXHBU9501-33-56 09:45:00 Test Item Value Reference Range Interpretation Comments RDW (test code = RDW) 15.5 11.5-14.[address] [facility] HospitalZgfouhlSKIIPEWEVO3338-36-52 09:45:00 Test Item Value Reference Range Interpretation Comments Platelet (test code = Platelet) 134 133-[address] [facility] HospitalFdhukxvLAKLAAOIEC2232-00-54 09:45:00 Test Item Value Reference Range Interpretation Comments MPV (test code = MPV) 9.9 7.4-10.[address] [facility] HospitalJtkjnhoSXJGWYWNQC0586-06-92 09:45:00 Test Item Value Reference Range Interpretation Comments Segs (test code = Segs) 62.8 45.0-75.[address] [facility] HospitalAcgwjenODZYBXZSIA1807-15-66 09:45:00 Test Item Value Reference Range Interpretation Comments Lymphocytes (test code = Lymphocytes) 17.1 20.0-40.0 [place] [address]-10-14 09:45:00 Test Item Value Reference Range Interpretation Comments Monocytes (test code = Monocytes) 15.2 2.0-12.0 [place] [address]-10-14 09:45:00 Test Item Value Reference Range Interpretation Comments Eosinophils (test code = 4.1 See_Comment [A utomated message] The Eosinophils) system which ge nerated this result tra nsmitted reference range : <=4.0. The reference r eileen was not used to int erpret this result as normal/abnormal . [facility] HospitalObwhcthHFPSFEXIJV7058-69-67 09:45:00 Test Item Value Reference Range Interpretation Comments Basophils (test code = 0.8 See_Comment [Aut omated message] The Basophils) system which ge nerated this result tra nsmitted reference range : <=1.0. The reference r eielen was not used to int erpret this result as normal/abnormal . [facility] HospitalDthafihERPUQPJMBL3273-20-13 09:45:00 Test Item Value Reference Range Interpretation Comments Neutrophils # (test code = Neutrophils 2.9 1.5-8.1 #) [place] 842420-10-14 09:45:00 Test Item Value Reference Range Interpretation Comments Lymphocytes # (test code = Lymphocytes 0.8 1.0-5.5 #) [place] 842420-10-14 09:45:00 Test Item Value Reference Range Interpretation Comments Monocytes # (test code 0.7 See_Comment [Aut omated message] The = Monocytes #) system which generated this result tra nsmitted reference range : <=0.8. The reference r eileen was not used to int erpret this result as normal/abnormal . [facility] HospitalThyiyfmNCWBKMQFAO9717-42-08 09:45:00 Test Item Value Reference Range Interpretation Comments Eosinophils # (test code 0.2 See_Comment [A utomated message] The = Eosinophils #) system whic h generated this result tra nsmitted reference range : <=0.5. The reference r eileen was not used to int erpret this result as normal/abnormal . [facility]2020-10-14 09:45:00 Test Item Value Reference Range Interpretation Comments Glucose Lvl (test code = Glucose Lvl) 83 70-99 [place] 868370-10-14 09:45:00 Test Item Value Reference Range Interpretation Comments BUN (test code = BUN) 36 7-22 [place] [address]-10-14 09:45:00 Test Item Value Reference Range Interpretation Comments Creatinine Lvl (test code = Creatinine 6.40 0.50-1.40 Lvl) [place] 868370-10-14 09:45:00 Test Item Value Reference Range Interpretation Comments Sodium Lvl (test code = Sodium Lvl) 140 135-145 [place] 868370-10-14 09:45:00 Test Item Value Reference Range Interpretation Comments Potassium Lvl (test code = Potassium 3.6 3.5-5.1 Lvl) [facility]2020-10-14 09:45:00 Test Item Value Reference Range Interpretation Comments Chloride Lvl (test code = Chloride Lvl) 107 95-109 [place] 868370-10-14 09:45:00 Test Item Value Reference Range Interpretation Comments CO2 (test code = CO2) 24 24-32 [place] 868370-10-14 09:45:00 Test Item Value Reference Range Interpretation Comments Calcium Lvl (test code = Calcium Lvl) 9.1 8.5-10.5 [place] 868370-10-14 09:45:00 Test Item Value Reference Range Interpretation Comments AGAP (test code = AGAP) 12.6 10.0-20.0 [place] [address]-10-14 09:45:00 Test Item Value Reference Range Interpretation Comments eGFR (test code = eGFR) 7 [place] 05744020-10-14 09:45:00 Test Item Value Reference Range Interpretation Comments S Preg (test code = S Negative *NA*(04/06/20 Preg) 4:45 AM) [place] [address]-10-14 09:45:00 Test Item Value Reference Range Interpretation Comments WBC (test code = WBC) 4.5 3.7-10.4 [place] [address]-10-14 09:45:00 Test Item Value Reference Range Interpretation Comments RBC (test code = RBC) 3.73 4.20-5.40 [place] [address]-10-14 09:45:00 Test Item Value Reference Range Interpretation Comments Hgb (test code = Hgb) 10.7 12.0-16.0 [place] [address]-10-14 09:45:00 Test Item Value Reference Range Interpretation Comments Hct (test code = Hct) 33.6 36.0-48.0 [place] [address]-10-14 09:45:00 Test Item Value Reference Range Interpretation Comments MCV (test code = MCV) 90.1 80.0-98.0 [place] [address]-10-14 09:45:00 Test Item Value Reference Range Interpretation Comments MCH (test code = MCH) 28.6 pg 27.0-31.0 [place] 842420-10-14 09:45:00 Test Item Value Reference Range Interpretation Comments MCHC (test code = MCHC) 31.8 32.0-36.0 [place] 842420-10-14 09:45:00 Test Item Value Reference Range Interpretation Comments RDW (test code = RDW) 15.5 11.5-14.5 [place] 842420-10-14 09:45:00 Test Item Value Reference Range Interpretation Comments Platelet (test code = Platelet) 134 133-450 [place] 842420-10-14 09:45:00 Test Item Value Reference Range Interpretation Comments MPV (test code = MPV) 9.9 7.4-10.4 [place] [address]-10-14 09:45:00 Test Item Value Reference Range Interpretation Comments Segs (test code = Segs) 62.8 45.0-75.0 [place] [address]-10-14 09:45:00 Test Item Value Reference Range Interpretation Comments Lymphocytes (test code = Lymphocytes) 17.1 20.0-40.0 [place] [address]-10-14 09:45:00 Test Item Value Reference Range Interpretation Comments Monocytes (test code = Monocytes) 15.2 2.0-12.0 [place] [address]-10-14 09:45:00 Test Item Value Reference Range Interpretation Comments Eosinophils (test code = 4.1 See_Comment [A utomated message] The Eosinophils) system which ge nerated this result tra nsmitted reference range : <=4.0. The reference r eileen was not used to int erpret this result as normal/abnormal . [facility] HospitalZbixzqpWDQDEOPREU2122-41-14 09:45:00 Test Item Value Reference Range Interpretation Comments Basophils (test code = 0.8 See_Comment [Aut omated message] The Basophils) system which ge nerated this result tra nsmitted reference range : <=1.0. The reference r eileen was not used to int erpret this result as normal/abnormal . [place] 842420-10-14 09:45:00 Test Item Value Reference Range Interpretation Comments Neutrophils # (test code = Neutrophils 2.9 1.5-8.1 #) [facility] HospitalPqdzrxxGNEPQIFVHO9832-25-37 09:45:00 Test Item Value Reference Range Interpretation Comments Lymphocytes # (test code = Lymphocytes 0.8 1.0-5.5 #) [place] [address]-10-14 09:45:00 Test Item Value Reference Range Interpretation Comments Monocytes # (test code 0.7 See_Comment [Aut omated message] The = Monocytes #) system which generated this result tra nsmitted reference range : <=0.8. The reference r eileen was not used to int erpret this result as normal/abnormal . [place] 842420-10-14 09:45:00 Test Item Value Reference Range Interpretation Comments Eosinophils # (test code 0.2 See_Comment [A utomated message] The = Eosinophils #) system whic h generated this result tra nsmitted reference range : <=0.5. The reference r eileen was not used to int erpret this result as normal/abnormal . [place] 868370-10-14 09:45:00 Test Item Value Reference Range Interpretation Comments Glucose Lvl (test code = Glucose Lvl) 83 70-99 [place] 868370-10-14 09:45:00 Test Item Value Reference Range Interpretation Comments BUN (test code = BUN) 36 7-22 [place] [address]-10-14 09:45:00 Test Item Value Reference Range Interpretation Comments Creatinine Lvl (test code = Creatinine 6.40 0.50-1.40 Lvl) [place] [address]-10-14 09:45:00 Test Item Value Reference Range Interpretation Comments Sodium Lvl (test code = Sodium Lvl) 140 135-145 [place] [address]-10-14 09:45:00 Test Item Value Reference Range Interpretation Comments Potassium Lvl (test code = Potassium 3.6 3.5-5.1 Lvl) [place] [address]-10-14 09:45:00 Test Item Value Reference Range Interpretation Comments Chloride Lvl (test code = Chloride Lvl) 107 95-109 [place] 868370-10-14 09:45:00 Test Item Value Reference Range Interpretation Comments CO2 (test code = CO2) 24 24-32 [place] [address]-10-14 09:45:00 Test Item Value Reference Range Interpretation Comments Calcium Lvl (test code = Calcium Lvl) 9.1 8.5-10.5 [facility] [id number] 09:45:00 Test Item Value Reference Range Interpretation Comments AGAP (test code = AGAP) 12.6 10.0-20.0 [facility] [id number] 09:45:00 Test Item Value Reference Range Interpretation Comments eGFR (test code = eGFR) 7 [facility] SouthCfgquepNDFRODWKOSCJO4221-89-08 09:45:00 Test Item Value Reference Range Interpretation Comments S Preg (test code = S Negative *NA*(04/06/20 Preg) 4:45 AM) [facility] HospitalOysseuyHKMOVKFMTM9826-49-54 09:45:00 Test Item Value Reference Range Interpretation Comments WBC (test code = WBC) 4.5 3.7-10.[address] [facility] HospitalQxpqrvlDSUJNSSYDU7130-76-01 09:45:00 Test Item Value Reference Range Interpretation Comments RBC (test code = RBC) 3.73 4.20-5.[address] [facility] HospitalAwilgqwHWJGHEPJTC5289-13-29 09:45:00 Test Item Value Reference Range Interpretation Comments Hgb (test code = Hgb) 10.7 12.0-16.0 [facility]IezmovaECNYOWAIOG1669-67-47 09:45:00 Test Item Value Reference Range Interpretation Comments Hct (test code = Hct) 33.6 36.0-48.0 [facility] HospitalSftjufoRMXXHAGZUZ0623-83-06 09:45:00 Test Item Value Reference Range Interpretation Comments MCV (test code = MCV) 90.1 80.0-98.0 [facility] HospitalVrmuvqjXRVITRSDQX2649-17-49 09:45:00 Test Item Value Reference Range Interpretation Comments MCH (test code = MCH) 28.6 pg 27.0-31.0 [facility] HospitalBpohmfeWZDNNFZHVP3297-04-84 09:45:00 Test Item Value Reference Range Interpretation Comments MCHC (test code = MCHC) 31.8 32.0-36.0 [facility] HospitalStfudsxHMMCKIPMOS1913-29-72 09:45:00 Test Item Value Reference Range Interpretation Comments RDW (test code = RDW) 15.5 11.5-14.[address] [facility] HospitalNysvkvdJSKSIJPIES1960-18-12 09:45:00 Test Item Value Reference Range Interpretation Comments Platelet (test code = Platelet) 134 133-450 [facility] HospitalXqrguhpAVRMGKBQJC7338-70-76 09:45:00 Test Item Value Reference Range Interpretation Comments MPV (test code = MPV) 9.9 7.4-10.4 [place] [address]-10-14 09:45:00 Test Item Value Reference Range Interpretation Comments Segs (test code = Segs) 62.8 45.0-75.[address] [facility] HospitalKmfzneyFIXXGFUUWU7556-67-84 09:45:00 Test Item Value Reference Range Interpretation Comments Lymphocytes (test code = Lymphocytes) 17.1 20.0-40.0 [place] [address]-10-14 09:45:00 Test Item Value Reference Range Interpretation Comments Monocytes (test code = Monocytes) 15.2 2.0-12.[address] [facility] HospitalFojmxwxOKJRPHDNJT3319-34-49 09:45:00 Test Item Value Reference Range Interpretation Comments Eosinophils (test code = 4.1 See_Comment [A utomated message] The Eosinophils) system which ge nerated this result tra nsmitted reference range : <=4.0. The reference r eileen was not used to int erpret this result as normal/abnormal . [facility] HospitalHlpkaenYWWRVDOJIQ3579-68-38 09:45:00 Test Item Value Reference Range Interpretation Comments Basophils (test code = 0.8 See_Comment [Aut omated message] The Basophils) system which ge nerated this result tra nsmitted reference range : <=1.0. The reference r eileen was not used to int erpret this result as normal/abnormal . [facility] HospitalOtyrmkuCCGCZJHBKT7307-63-59 09:45:00 Test Item Value Reference Range Interpretation Comments Neutrophils # (test code = Neutrophils 2.9 1.5-8.1 #) [place] [address]-10-14 09:45:00 Test Item Value Reference Range Interpretation Comments Lymphocytes # (test code = Lymphocytes 0.8 1.0-5.5 #) [place] [address]-10-14 09:45:00 Test Item Value Reference Range Interpretation Comments Monocytes # (test code 0.7 See_Comment [Aut omated message] The = Monocytes #) system which generated this result tra nsmitted reference range : <=0.8. The reference r eileen was not used to int erpret this result as normal/abnormal . [place] [address]-10-14 09:45:00 Test Item Value Reference Range Interpretation Comments Eosinophils # (test code 0.2 See_Comment [A utomated message] The = Eosinophils #) system whic h generated this result tra nsmitted reference range : <=0.5. The reference r eileen was not used to int erpret this result as normal/abnormal . [facility]2020-10-14 09:45:00 Test Item Value Reference Range Interpretation Comments Glucose Lvl (test code = Glucose Lvl) 83 70-99 [facility]CV[facility] [id number] 09:45:00 Test Item Value Reference Range Interpretation Comments BUN (test code = BUN) 36 7-22 [facility]2020-10-14 09:45:00 Test Item Value Reference Range Interpretation Comments Creatinine Lvl (test code = Creatinine 6.40 0.50-1.40 Lvl) [facility]2020-10-14 09:45:00 Test Item Value Reference Range Interpretation Comments Sodium Lvl (test code = Sodium Lvl) 140 135-145 [facility] [id number] 09:45:00 Test Item Value Reference Range Interpretation Comments Potassium Lvl (test code = Potassium 3.6 3.5-5.1 Lvl) [facility] [id number] 09:45:00 Test Item Value Reference Range Interpretation Comments Chloride Lvl (test code = Chloride Lvl) 107 95-109 [facility]2020-10-14 09:45:00 Test Item Value Reference Range Interpretation Comments CO2 (test code = CO2) 24 24-32 [facility] [id number] 09:45:00 Test Item Value Reference Range Interpretation Comments Calcium Lvl (test code = Calcium Lvl) 9.1 8.5-10.5 [facility] [id number] 09:45:00 Test Item Value Reference Range Interpretation Comments AGAP (test code = AGAP) 12.6 10.0-20.0 [facility] [id number] 09:45:00 Test Item Value Reference Range Interpretation Comments eGFR (test code = eGFR) 7 [facility] SouthJgyfifdNHPQVGXNZYSBS3065-77-00 09:45:00 Test Item Value Reference Range Interpretation Comments S Preg (test code = S Negative *NA*(04/06/20 Preg) 4:45 AM) [facility] HospitalOrzuvfiQGPDRFLHDY5942-89-18 09:45:00 Test Item Value Reference Range Interpretation Comments WBC (test code = WBC) 4.5 3.7-10.[address] [facility] HospitalEsvrtidZLEHDDEHKR4430-59-35 09:45:00 Test Item Value Reference Range Interpretation Comments RBC (test code = RBC) 3.73 4.20-5.[address] [facility] HospitalZvlugvvEQZBTDVAJI1555-57-98 09:45:00 Test Item Value Reference Range Interpretation Comments Hgb (test code = Hgb) 10.7 12.0-16.[address] [facility] HospitalMrnagydRCUHBJDGJQ0740-50-57 09:45:00 Test Item Value Reference Range Interpretation Comments Hct (test code = Hct) 33.6 36.0-48.[address] HospitalHtwhepvJCIKMVGVAY1488-22-16 09:45:00 Test Item Value Reference Range Interpretation Comments MCV (test code = MCV) 90.1 80.0-98.[address] HospitalIlprzqaXYIZHYPCGF5696-91-14 09:45:00 Test Item Value Reference Range Interpretation Comments MCH (test code = MCH) 28.6 pg 27.0-31.[address] [facility] HospitalCzlkjfcXEPMFUGVWZ1388-59-13 09:45:00 Test Item Value Reference Range Interpretation Comments MCHC (test code = MCHC) 31.8 32.0-36.[address] [facility] HospitalPgwzwwxCIWEVVGVZP3492-66-26 09:45:00 Test Item Value Reference Range Interpretation Comments RDW (test code = RDW) 15.5 11.5-14.[address] [facility] HospitalSqknzrzLPVHOWODDO9537-66-43 09:45:00 Test Item Value Reference Range Interpretation Comments Platelet (test code = Platelet) 134 133-[address] [facility] HospitalPujfymbIJUIZCSPTQ6467-15-81 09:45:00 Test Item Value Reference Range Interpretation Comments MPV (test code = MPV) 9.9 7.4-10.[address] [facility] HospitalIuqpkbwCERLIKXMAJ6226-02-27 09:45:00 Test Item Value Reference Range Interpretation Comments Segs (test code = Segs) 62.8 45.0-75.[address] HospitalUkvarvfGNXNNRYCTA2045-47-14 09:45:00 Test Item Value Reference Range Interpretation Comments Lymphocytes (test code = Lymphocytes) 17.1 20.0-40.[address] HospitalKszsgztTNQMNTZHAV6509-64-08 09:45:00 Test Item Value Reference Range Interpretation Comments Monocytes (test code = Monocytes) 15.2 2.0-12.[address] HospitalTyggvaxBLQRLTMDTZ1149-06-36 09:45:00 Test Item Value Reference Range Interpretation Comments Eosinophils (test code = 4.1 See_Comment [A utomated message] The Eosinophils) system which ge nerated this result tra nsmitted reference range : <=4.0. The reference r eileen was not used to int erpret this result as normal/abnormal . [facility] HospitalQantphsINGWSSFSVM4320-78-17 09:45:00 Test Item Value Reference Range Interpretation Comments Basophils (test code = 0.8 See_Comment [Aut omated message] The Basophils) system which ge nerated this result tra nsmitted reference range : <=1.0. The reference r eileen was not used to int erpret this result as normal/abnormal . [facility] HospitalXwfipxfGDPZKZVIZF0238-51-64 09:45:00 Test Item Value Reference Range Interpretation Comments Neutrophils # (test code = Neutrophils 2.9 1.5-8.1 #) [facility] HospitalKjdnmrpZNOBUHFQSV9555-52-26 09:45:00 Test Item Value Reference Range Interpretation Comments Lymphocytes # (test code = Lymphocytes 0.8 1.0-5.5 #) [facility] HospitalWlvkvbyAKIEFTTGNM6800-54-63 09:45:00 Test Item Value Reference Range Interpretation Comments Monocytes # (test code 0.7 See_Comment [Aut omated message] The = Monocytes #) system which generated this result tra nsmitted reference range : <=0.8. The reference r eileen was not used to int erpret this result as normal/abnormal . [facility] HospitalHoshiyqFCXMTGFDAM6557-83-53 09:45:00 Test Item Value Reference Range Interpretation Comments Eosinophils # (test code 0.2 See_Comment [A utomated message] The = Eosinophils #) system whic h generated this result tra nsmitted reference range : <=0.5. The reference r eileen was not used to int erpret this result as normal/abnormal . [facility] SouthJtytflbGMGACUOVYR1792-10-44 02:13:00 Test Item Value Reference Range Interpretation Comments Coronavirus (COVID-19) Not Detected KAYLEE (test code = (04/05/20 9:13 PM) Coronavirus (COVID-19) KAYLEE) [facility]YESKCIVFZS8249[facility]38-02 02:13:00 Test Item Value Reference Range Interpretation Comments Coronavirus (COVID-19) Not Detected KAYLEE (test code = (04/05/20 9:13 PM) Coronavirus (COVID-19) KAYLEE) [place] [address]-10-14 02:13:00 Test Item Value Reference Range Interpretation Comments Coronavirus (COVID-19) Not Detected KAYLEE (test code = (04/05/20 9:13 PM) Coronavirus (COVID-19) KAYLEE) [facility] SystemHderlfvGHYTTDSIEZ9732-64-22 02:13:00 Test Item Value Reference Range Interpretation Comments Coronavirus (COVID-19) Not Detected KAYLEE (test code = (04/05/20 9:13 PM) Coronavirus (COVID-19) KAYLEE) [facility]2020-10-13 23:26:00 Test Item Value Reference Range Interpretation Comments Total Protein (test code = Total 7.7 6.4-8.4 Protein) [facility] [id number] 23:26:00 Test Item Value Reference Range Interpretation Comments Albumin Lvl (test code = Albumin Lvl) 3.9 3.5-5.0 [facility] [id number] 23:26:00 Test Item Value Reference Range Interpretation Comments ALT (test code = ALT) 40 See_Comment [Auto mated message] The system which ge nerated this result transmit melquiades reference range : <=65. The reference range was not used to interpr et this result as jon l/abnormal. [facility] [id number] 23:26:00 Test Item Value Reference Range Interpretation Comments AST (test code = AST) 38 See_Comment [Auto mated message] The system which ge nerated this result transmit melquiades reference range : <=37. The reference range was not used to interpr et this result as jon l/abnormal. [facility] [id number] 23:26:00 Test Item Value Reference Range Interpretation Comments Alk Phos (test code = Alk Phos) 92 39-136 [facility] [id number] 23:26:00 Test Item Value Reference Range Interpretation Comments Bili Total (test code = Bili Total) 1.2 0.2-1.3 [place] [address]-10-13 23:26:00 Test Item Value Reference Range Interpretation Comments B/C Ratio (test code = B/C Ratio) 5 1 6-[address]10-13 23:26:00 Test Item Value Reference Range Interpretation Comments Globulin (test code = Globulin) 3.8 2.7-4.[address]10-13 23:26:00 Test Item Value Reference Range Interpretation Comments A/G Ratio (test code = A/G Ratio) 1.0 1 0.7-1.[address]10-13 23:26:00 Test Item Value Reference Range Interpretation Comments PT (test code = PT) 15.2 s 12.0-14.7 [place] [address]-13 23:26:00 Test Item Value Reference Range Interpretation Comments INR (test code = INR) 1.19 1 0.85-1.17 [place] [address]-13 23:26:00 Test Item Value Reference Range Interpretation Comments PTT (test code = PTT) 23.3 s 22.9-35.8 [place] [address]-13 23:26:00 Test Item Value Reference Range Interpretation Comments Total Protein (test code = Total 7.7 6.4-8.4 Protein) [place] [address]-13 23:26:00 Test Item Value Reference Range Interpretation Comments Albumin Lvl (test code = Albumin Lvl) 3.9 3.5-5.0 [place] [address]-13 23:26:00 Test Item Value Reference Range Interpretation Comments ALT (test code = ALT) 40 See_Comment [Auto mated message] The system which ge nerated this result transmit melquiades reference range : <=65. The reference range was not used to interpr et this result as jon l/abnormal. [facility] [id number] 23:26:00 Test Item Value Reference Range Interpretation Comments AST (test code = AST) 38 See_Comment [Auto mated message] The system which ge nerated this result transmit melquiades reference range : <=37. The reference range was not used to interpr et this result as jon l/abnormal. [facility] [id number] 23:26:00 Test Item Value Reference Range Interpretation Comments Alk Phos (test code = Alk Phos) 92 39-136 [facility]2020-10-13 23:26:00 Test Item Value Reference Range Interpretation Comments Bili Total (test code = Bili Total) 1.2 0.2-1.3 [place] [address]-10-13 23:26:00 Test Item Value Reference Range Interpretation Comments B/C Ratio (test code = B/C Ratio) 5 1 6-25 [place] [address]-10-13 23:26:00 Test Item Value Reference Range Interpretation Comments Globulin (test code = Globulin) 3.8 2.7-4.2 [place] [address]-10-13 23:26:00 Test Item Value Reference Range Interpretation Comments A/G Ratio (test code = A/G Ratio) 1.0 1 0.7-1.6 [place] [address]-10-13 23:26:00 Test Item Value Reference Range Interpretation Comments PT (test code = PT) 15.2 s 12.0-14.7 [place] [address]-10-13 23:26:00 Test Item Value Reference Range Interpretation Comments INR (test code = INR) 1.19 1 0.85-1.17 [place] [address]-10-13 23:26:00 Test Item Value Reference Range Interpretation Comments PTT (test code = PTT) 23.3 s 22.9-35.8 [facility] [id number] 23:26:00 Test Item Value Reference Range Interpretation Comments Total Protein (test code = Total 7.7 6.4-8.4 Protein) [place] [address]-10-13 23:26:00 Test Item Value Reference Range Interpretation Comments Albumin Lvl (test code = Albumin Lvl) 3.9 3.5-5.0 [place] [address]-10-13 23:26:00 Test Item Value Reference Range Interpretation Comments ALT (test code = ALT) 40 See_Comment [Auto mated message] The system which ge nerated this result transmit melquiades reference range : <=65. The reference range was not used to interpr et this result as jon l/abnormal. [facility] [id number] 23:26:00 Test Item Value Reference Range Interpretation Comments AST (test code = AST) 38 See_Comment [Auto mated message] The system which ge nerated this result transmit melquiades reference range : <=37. The reference range was not used to interpr et this result as jon l/abnormal. [facility] [employer] [id number] 23:26:00 Test Item Value Reference Range Interpretation Comments Alk Phos (test code = Alk Phos) 92 39-136 [facility] [employer] [id number] 23:26:00 Test Item Value Reference Range Interpretation Comments Bili Total (test code = Bili Total) 1.2 0.2-1.3 [facility] [id number] 23:26:00 Test Item Value Reference Range Interpretation Comments B/C Ratio (test code = B/C Ratio) 5 1 6-25 [facility] [id number] 23:26:00 Test Item Value Reference Range Interpretation Comments Globulin (test code = Globulin) 3.8 2.7-4.2 [facility] [id number] 23:26:00 Test Item Value Reference Range Interpretation Comments A/G Ratio (test code = A/G Ratio) 1.0 1 0.7-1.6 [facility] HospitalQfymloxVQKILUAKXJ6830-02-02 23:26:00 Test Item Value Reference Range Interpretation Comments PT (test code = PT) 15.2 s 12.0-14.7 [facility] SouthLsuwtjjWUAKZKSWNN9130-66-89 23:26:00 Test Item Value Reference Range Interpretation Comments INR (test code = INR) 1.19 1 0.85-1.17 [facility] HospitalEtlorteWGRROPUVGP4962-86-25 23:26:00 Test Item Value Reference Range Interpretation Comments PTT (test code = PTT) 23.3 s 22.9-35.8 [facility] [id number] 23:26:00 Test Item Value Reference Range Interpretation Comments Total Protein (test code = Total 7.7 6.4-8.4 Protein) [facility] [id number] 23:26:00 Test Item Value Reference Range Interpretation Comments Albumin Lvl (test code = Albumin Lvl) 3.9 3.5-5.0 [facility] [id number] 23:26:00 Test Item Value Reference Range Interpretation Comments ALT (test code = ALT) 40 See_Comment [Auto mated message] The system which ge nerated this result transmit melquiades reference range : <=65. The reference range was not used to interpr et this result as jon l/abnormal. [facility] [employer] [id number] 23:26:00 Test Item Value Reference Range Interpretation Comments AST (test code = AST) 38 See_Comment [Auto mated message] The system which ge nerated this result transmit melquiades reference range : <=37. The reference range was not used to interpr et this result as jon l/abnormal. [facility] [employer] [id number] 23:26:00 Test Item Value Reference Range Interpretation Comments Alk Phos (test code = Alk Phos) 92 39-136 [facility] [employer] [id number] 23:26:00 Test Item Value Reference Range Interpretation Comments Bili Total (test code = Bili Total) 1.2 0.2-1.3 [facility] [employer] [id number] 23:26:00 Test Item Value Reference Range Interpretation Comments B/C Ratio (test code = B/C Ratio) 5 1 6-25 [facility] [id number] 23:26:00 Test Item Value Reference Range Interpretation Comments Globulin (test code = Globulin) 3.8 2.7-4.2 [facility] [employer] [id number] 23:26:00 Test Item Value Reference Range Interpretation Comments A/G Ratio (test code = A/G Ratio) 1.0 1 0.7-1.6 [facility] HospitalIkricexLXIRBJCKXQ8467-85-61 23:26:00 Test Item Value Reference Range Interpretation Comments PT (test code = PT) 15.2 s 12.0-14.7 [facility] HospitalFnbjgboIGQYXDWMYR7961-35-31 23:26:00 Test Item Value Reference Range Interpretation Comments INR (test code = INR) 1.19 1 0.85-1.17 [facility] HospitalIlloaoeONCJGBBUOK2694-04-89 23:26:00 Test Item Value Reference Range Interpretation Comments PTT (test code = PTT) 23.3 s 22.9-35.8 [facility] [employer] [id number] 10:53:00 Test Item Value Reference Range Interpretation Comments eGFR (test code = eGFR) 13 [facility] [employer] [id number] 10:53:00 Test Item Value Reference Range Interpretation Comments Sodium Lvl (test code = Sodium Lvl) 141 135-145 [facility]2019-07-28 10:53:00 Test Item Value Reference Range Interpretation Comments Creatinine Lvl (test code = Creatinine 3.85 0.50-1.40 Lvl) [facility]2019-07-28 10:53:00 Test Item Value Reference Range Interpretation Comments Glucose Lvl (test code = Glucose Lvl) 102 70-99 [facility]2019-07-28 10:53:00 Test Item Value Reference Range Interpretation Comments BUN (test code = BUN) 19 7-22 [facility]2019-07-28 10:53:00 Test Item Value Reference Range Interpretation Comments Calcium Lvl (test code = Calcium Lvl) 8.6 8.5-10.5 [facility]2019-07-28 10:53:00 Test Item Value Reference Range Interpretation Comments Chloride Lvl (test code = Chloride Lvl) 107 95-109 [facility]2019-07-28 10:53:00 Test Item Value Reference Range Interpretation Comments CO2 (test code = CO2) 29 24-32 [facility]2019-07-28 10:53:00 Test Item Value Reference Range Interpretation Comments Potassium Lvl (test code = Potassium 3.7 3.5-5.1 Lvl) [facility]2019-07-28 10:53:00 Test Item Value Reference Range Interpretation Comments AGAP (test code = AGAP) 8.7 10.0-20.[address] [facility] Hos[id number] 10:53:00 Test Item Value Reference Range Interpretation Comments Segs (test code = Segs) 64.4 45.0-75.[address] [facility] [facility] HospitalSbqvijqFCTTZEFSNE5552-05-51 10:53:00 Test Item Value Reference Range Interpretation Comments Eosinophils (test code = 3.7 See_Comment [A utomated message] The Eosinophils) system which ge nerated this result tra nsmitted reference range : <=4.0. The reference r eileen was not used to int erpret this result as normal/abnormal . [facility] HospitalBebwazeSXPGLLXAXE3205-34-27 10:53:00 Test Item Value Reference Range Interpretation Comments Monocytes (test code = Monocytes) 21.0 2.0-12.[address] [facility] HospitalPeewxphPMGZRFEJDJ3709-82-18 10:53:00 Test Item Value Reference Range Interpretation Comments Basophils (test code = 0.7 See_Comment [Aut omated message] The Basophils) system which ge nerated this result tra nsmitted reference range : <=1.0. The reference r eileen was not used to int erpret this result as normal/abnormal . [facility] [facility]MvutjsxLOEAVWLGKB1323-49-85 10:53:00 Test Item Value Reference Range Interpretation Comments Lymphocytes (test code = Lymphocytes) 10.2 20.0-40.[address] [facility] HospitalChizekmQTNABTTYOI6040-19-60 10:53:00 Test Item Value Reference Range Interpretation Comments Neutrophils # (test code = Neutrophils 4.5 1.5-8.1 #) [facility] HospitalHptgrusYPVUOGTWFB7069-98-19 10:53:00 Test Item Value Reference Range Interpretation Comments Lymphocytes # (test code = Lymphocytes 0.7 1.0-5.5 #) [facility] HospitalPtfcioaPLDCGAOKVU6457-03-40 10:53:00 Test Item Value Reference Range Interpretation Comments Eosinophils # (test code 0.3 See_Comment [A utomated message] The = Eosinophils #) system whic h generated this result tra nsmitted reference range : <=0.5. The reference r eileen was not used to int erpret this result as normal/abnormal . [facility] HospitalTnzikohWMXRIAWESS8088-91-30 10:53:00 Test Item Value Reference Range Interpretation Comments Monocytes # (test code 1.5 See_Comment [Aut omated message] The = Monocytes #) system which generated this result tra nsmitted reference range : <=0.8. The reference r eileen was not used to int erpret this result as normal/abnormal . [facility] HospitalYwpkphoGORRTGMTAE8211-16-49 10:53:00 Test Item Value Reference Range Interpretation Comments WBC (test code = WBC) 7.0 3.7-10.[address] HospitalPipriwjZOAIWEKROF4153-75-55 10:53:00 Test Item Value Reference Range Interpretation Comments RBC (test code = RBC) 2.62 4.20-5.[address] [facility] [facility] HospitalMawkszgCLHVKSTXQP7541-33-02 10:53:00 Test Item Value Reference Range Interpretation Comments Hgb (test code = Hgb) 7.6 12.0-16.[address] HospitalZctpzclZEPNUTPTJR9886-70-51 10:53:00 Test Item Value Reference Range Interpretation Comments Hct (test code = Hct) 22.6 36.0-48.[address] [facility] HospitalGmnhlyzMIWNVIPTKV6445-00-05 10:53:00 Test Item Value Reference Range Interpretation Comments MCV (test code = MCV) 86.4 80.0-98.[address] HospitalWxubtylNYSMRKUAFV4669-90-39 10:53:00 Test Item Value Reference Range Interpretation Comments MCHC (test code = MCHC) 33.6 32.0-36.[address] [facility] HospitalKynkyjaBNYHYKDLFF7621-99-36 10:53:00 Test Item Value Reference Range Interpretation Comments MCH (test code = MCH) 29.0 pg 27.0-31.[address] HospitalJyohfwpGYUGRRVEUA9479-08-32 10:53:00 Test Item Value Reference Range Interpretation Comments RDW (test code = RDW) 15.8 11.5-14.[address] [facility] HospitalXfxnykfKBLOZEOCSW3122-99-55 10:53:00 Test Item Value Reference Range Interpretation Comments MPV (test code = MPV) 9.7 7.4-10.[address] HospitalZfaeizhCDDPUFIUYQ2007-49-50 10:53:00 Test Item Value Reference Range Interpretation Comments Platelet (test code = Platelet) 98 133-450 [facility]2019-07-28 10:53:00 Test Item Value Reference Range Interpretation Comments eGFR (test code = eGFR) 13 [facility]2019-07-28 10:53:00 Test Item Value Reference Range Interpretation Comments Sodium Lvl (test code = Sodium Lvl) 141 135-145 [facility]2019-07-28 10:53:00 Test Item Value Reference Range Interpretation Comments Creatinine Lvl (test code = Creatinine 3.85 0.50-1.40 Lvl) [facility]2019-07-28 10:53:00 Test Item Value Reference Range Interpretation Comments Glucose Lvl (test code = Glucose Lvl) 102 70-99 [facility]2019-07-28 10:53:00 Test Item Value Reference Range Interpretation Comments BUN (test code = BUN) 19 7-22 [facility]2019-07-28 10:53:00 Test Item Value Reference Range Interpretation Comments Calcium Lvl (test code = Calcium Lvl) 8.6 8.5-10.5 [facility]2019-07-28 10:53:00 Test Item Value Reference Range Interpretation Comments Chloride Lvl (test code = Chloride Lvl) 107 95-109 [facility]2019-07-28 10:53:00 Test Item Value Reference Range Interpretation Comments CO2 (test code = CO2) 29 24-32 [facility]2019-07-28 10:53:00 Test Item Value Reference Range Interpretation Comments Potassium Lvl (test code = Potassium 3.7 3.5-5.1 Lvl) [facility]2019-07-28 10:53:00 Test Item Value Reference Range Interpretation Comments AGAP (test code = AGAP) 8.7 10.0-20.[address] [facility] HospitalTaiojwiSBWUTKUWYO6640-01-21 10:53:00 Test Item Value Reference Range Interpretation Comments Segs (test code = Segs) 64.4 45.0-75.[address] HospitalVeitobcQMKNQDHQBS2672-25-86 10:53:00 Test Item Value Reference Range Interpretation Comments Eosinophils (test code = 3.7 See_Comment [A utomated message] The Eosinophils) system which ge nerated this result tra nsmitted reference range : <=4.0. The reference r eileen was not used to int erpret this result as normal/abnormal . [facility] HospitalRloywinODLRYDAGTV1913-48-03 10:53:00 Test Item Value Reference Range Interpretation Comments Monocytes (test code = Monocytes) 21.0 2.0-12.[address] HospitalKdbdfuxGBGXETDYPQ0041-08-03 10:53:00 Test Item Value Reference Range Interpretation Comments Basophils (test code = 0.7 See_Comment [Aut omated message] The Basophils) system which ge nerated this result tra nsmitted reference range : <=1.0. The reference r eileen was not used to int erpret this result as normal/abnormal . [facility] HospitalLvtakdrBIVDBDFFWA9262-75-28 10:53:00 Test Item Value Reference Range Interpretation Comments Lymphocytes (test code = Lymphocytes) 10.2 20.0-40.[address] [facility] HospitalIttzsbwMOEFFVVIRR4166-78-91 10:53:00 Test Item Value Reference Range Interpretation Comments Neutrophils # (test code = Neutrophils 4.5 1.5-8.1 #) [facility] HospitalNkrhogiPXZIJMWVJD7120-72-59 10:53:00 Test Item Value Reference Range Interpretation Comments Lymphocytes # (test code = Lymphocytes 0.7 1.0-5.5 #) [facility] HospitalOulfcuaFSMYABQCGW9075-95-27 10:53:00 Test Item Value Reference Range Interpretation Comments Eosinophils # (test code 0.3 See_Comment [A utomated message] The = Eosinophils #) system whic h generated this result tra nsmitted reference range : <=0.5. The reference r eileen was not used to int erpret this result as normal/abnormal . [facility] HospitalFvdvdluFITCOTAGSE7000-08-08 10:53:00 Test Item Value Reference Range Interpretation Comments Monocytes # (test code 1.5 See_Comment [Aut omated message] The = Monocytes #) system which generated this result tra nsmitted reference range : <=0.8. The reference r eileen was not used to int erpret this result as normal/abnormal . [facility] HospitalFtqfiyaELIUWWBHNM8896-26-51 10:53:00 Test Item Value Reference Range Interpretation Comments WBC (test code = WBC) 7.0 3.7-10.[address] [facility] HospitalWfenqviISQMQHYWIA3368-84-71 10:53:00 Test Item Value Reference Range Interpretation Comments RBC (test code = RBC) 2.62 4.20-5.[address] [facility] HospitalNvkgsekFMMNBCOXYA7936-01-55 10:53:00 Test Item Value Reference Range Interpretation Comments Hgb (test code = Hgb) 7.6 12.0-16.[address] [facility] HospitalHxkxxktFYCGGGENUY9847-41-38 10:53:00 Test Item Value Reference Range Interpretation Comments Hct (test code = Hct) 22.6 36.0-48.[address] HospitalWvpugdgGEGBMZYBCN5516-42-50 10:53:00 Test Item Value Reference Range Interpretation Comments MCV (test code = MCV) 86.4 80.0-98.[address] [facility] HospitalEmujrdpTDSBQIHTON0309-91-41 10:53:00 Test Item Value Reference Range Interpretation Comments MCHC (test code = MCHC) 33.6 32.0-36.[address] [facility] HospitalCjgjsjiMSONLOPJQS2008-02-71 10:53:00 Test Item Value Reference Range Interpretation Comments MCH (test code = MCH) 29.0 pg 27.0-31.[address] [facility] HospitalNnlevjmCCVMEXVNBW8285-01-62 10:53:00 Test Item Value Reference Range Interpretation Comments RDW (test code = RDW) 15.8 11.5-14.[address] [facility] HospitalCinwqqvJDFYSMVJLR0414-13-03 10:53:00 Test Item Value Reference Range Interpretation Comments MPV (test code = MPV) 9.7 7.4-10.[address] [facility] HospitalValoxhjRNLEVGLGIY6224-42-67 10:53:00 Test Item Value Reference Range Interpretation Comments Platelet (test code = Platelet) 98 133-450 [facility]2019-07-28 10:53:00 Test Item Value Reference Range Interpretation Comments eGFR (test code = eGFR) 13 [facility]2019-07-28 10:53:00 Test Item Value Reference Range Interpretation Comments Sodium Lvl (test code = Sodium Lvl) 141 135-145 [facility]2019-07-28 10:53:00 Test Item Value Reference Range Interpretation Comments Creatinine Lvl (test code = Creatinine 3.85 0.50-1.40 Lvl) [facility]2019-07-28 10:53:00 Test Item Value Reference Range Interpretation Comments Glucose Lvl (test code = Glucose Lvl) 102 70-99 [facility]2019-07-28 10:53:00 Test Item Value Reference Range Interpretation Comments BUN (test code = BUN) 19 7-22 [facility]2019-07-28 10:53:00 Test Item Value Reference Range Interpretation Comments Calcium Lvl (test code = Calcium Lvl) 8.6 8.5-10.5 [facility]2019-07-28 10:53:00 Test Item Value Reference Range Interpretation Comments Chloride Lvl (test code = Chloride Lvl) 107 95-109 [facility]2019-07-28 10:53:00 Test Item Value Reference Range Interpretation Comments CO2 (test code = CO2) 29 24-32 [facility]2019-07-28 10:53:00 Test Item Value Reference Range Interpretation Comments Potassium Lvl (test code = Potassium 3.7 3.5-5.1 Lvl) [facility]2019-07-28 10:53:00 Test Item Value Reference Range Interpretation Comments AGAP (test code = AGAP) 8.7 10.0-20.[address] [facility] HospitalHclvgtqAYSYMXJLIF1212-92-17 10:53:00 Test Item Value Reference Range Interpretation Comments Segs (test code = Segs) 64.4 45.0-75.[address] [facility] HospitalFjqqysiYVECVUKYIN1771-34-37 10:53:00 Test Item Value Reference Range Interpretation Comments Eosinophils (test code = 3.7 See_Comment [A utomated message] The Eosinophils) system which ge nerated this result tra nsmitted reference range : <=4.0. The reference r eileen was not used to int erpret this result as normal/abnormal . [facility] HospitalGfoaqwuBDDQQABSPM3869-15-94 10:53:00 Test Item Value Reference Range Interpretation Comments Monocytes (test code = Monocytes) 21.0 2.0-12.[address] [facility] HospitalBsuagyfSSQQDOMMLN0392-57-05 10:53:00 Test Item Value Reference Range Interpretation Comments Basophils (test code = 0.7 See_Comment [Aut omated message] The Basophils) system which ge nerated this result tra nsmitted reference range : <=1.0. The reference r eileen was not used to int erpret this result as normal/abnormal . [facility] HospitalNshkanjWAHTKUHXVB9855-14-23 10:53:00 Test Item Value Reference Range Interpretation Comments Lymphocytes (test code = Lymphocytes) 10.2 20.0-40.[address] HospitalRbwufhrJLBRUQTBLM6521-75-00 10:53:00 Test Item Value Reference Range Interpretation Comments Neutrophils # (test code = Neutrophils 4.5 1.5-8.1 #) [facility] HospitalIygqzyhHQDBZNHSFD9531-87-18 10:53:00 Test Item Value Reference Range Interpretation Comments Lymphocytes # (test code = Lymphocytes 0.7 1.0-5.5 #) [facility] HospitalWfpxogzMNOAMFPSZE0839-11-82 10:53:00 Test Item Value Reference Range Interpretation Comments Eosinophils # (test code 0.3 See_Comment [A utomated message] The = Eosinophils #) system whic h generated this result tra nsmitted reference range : <=0.5. The reference r eileen was not used to int erpret this result as normal/abnormal . [facility] HospitalKxhvwxdFKKUJPWWCR5421-50-50 10:53:00 Test Item Value Reference Range Interpretation Comments Monocytes # (test code 1.5 See_Comment [Aut omated message] The = Monocytes #) system which generated this result tra nsmitted reference range : <=0.8. The reference r eileen was not used to int erpret this result as normal/abnormal . [facility] HospitalZojiqamRPEEZEMMCS0909-65-11 10:53:00 Test Item Value Reference Range Interpretation Comments WBC (test code = WBC) 7.0 3.7-10.[address] [facility] HospitalRqxmytpSIETEOTHQR2962-25-92 10:53:00 Test Item Value Reference Range Interpretation Comments RBC (test code = RBC) 2.62 4.20-5.[address] [facility] HospitalSodmbbiYWBJTCKGNB0443-20-07 10:53:00 Test Item Value Reference Range Interpretation Comments Hgb (test code = Hgb) 7.6 12.0-16.[address] [facility] HospitalSbjuxwrBMPSYDKGNX0453-65-10 10:53:00 Test Item Value Reference Range Interpretation Comments Hct (test code = Hct) 22.6 36.0-48.[address] [facility] HospitalAqdgdwzENBBKJYJGW0261-53-93 10:53:00 Test Item Value Reference Range Interpretation Comments MCV (test code = MCV) 86.4 80.0-98.[address] [facility] HospitalRfqeemoRBLCSHSQCL5445-01-55 10:53:00 Test Item Value Reference Range Interpretation Comments MCHC (test code = MCHC) 33.6 32.0-36.[address] HospitalDeadjgbQVTAHZXLJL4274-22-56 10:53:00 Test Item Value Reference Range Interpretation Comments MCH (test code = MCH) 29.0 pg 27.0-31.[address] [facility] HospitalKutpurkMAMKJUVXFN2985-10-78 10:53:00 Test Item Value Reference Range Interpretation Comments RDW (test code = RDW) 15.8 11.5-14.[address] [facility] HospitalIkgqpkeWPWSCOVRXG9292-43-92 10:53:00 Test Item Value Reference Range Interpretation Comments MPV (test code = MPV) 9.7 7.4-10.[address] [facility] HospitalNznnwtiZUCPRGTXEI7360-84-19 10:53:00 Test Item Value Reference Range Interpretation Comments Platelet (test code = Platelet) 98 133-450 [facility]2019-07-28 10:53:00 Test Item Value Reference Range Interpretation Comments eGFR (test code = eGFR) 13 [facility]2019-07-28 10:53:00 Test Item Value Reference Range Interpretation Comments Sodium Lvl (test code = Sodium Lvl) 141 135-145 [facility]2019-07-28 10:53:00 Test Item Value Reference Range Interpretation Comments Creatinine Lvl (test code = Creatinine 3.85 0.50-1.40 Lvl) [facility]2019-07-28 10:53:00 Test Item Value Reference Range Interpretation Comments Glucose Lvl (test code = Glucose Lvl) 102 70-99 [facility]2019-07-28 10:53:00 Test Item Value Reference Range Interpretation Comments BUN (test code = BUN) 19 7-22 [facility]2019-07-28 10:53:00 Test Item Value Reference Range Interpretation Comments Calcium Lvl (test code = Calcium Lvl) 8.6 8.5-10.5 [facility]2019-07-28 10:53:00 Test Item Value Reference Range Interpretation Comments Chloride Lvl (test code = Chloride Lvl) 107 95-109 [facility]2019-07-28 10:53:00 Test Item Value Reference Range Interpretation Comments CO2 (test code = CO2) 29 24-32 [facility]2019-07-28 10:53:00 Test Item Value Reference Range Interpretation Comments Potassium Lvl (test code = Potassium 3.7 3.5-5.1 Lvl) [facility]2019-07-28 10:53:00 Test Item Value Reference Range Interpretation Comments AGAP (test code = AGAP) 8.7 10.0-20.[address] [facility] HospitalPgmpmscVBBJIQPJTB4585-82-33 10:53:00 Test Item Value Reference Range Interpretation Comments Segs (test code = Segs) 64.4 45.0-75.[address] [facility] HospitalJkhofqiUWLAJQDTDU2064-92-64 10:53:00 Test Item Value Reference Range Interpretation Comments Eosinophils (test code = 3.7 See_Comment [A utomated message] The Eosinophils) system which ge nerated this result tra nsmitted reference range : <=4.0. The reference r eileen was not used to int erpret this result as normal/abnormal . [facility] HospitalDtmefcrGXIUOJZGJE0780-93-48 10:53:00 Test Item Value Reference Range Interpretation Comments Monocytes (test code = Monocytes) 21.0 2.0-12.[address] [facility] HospitalPfsktuuNGJYRRLHSB3189-95-55 10:53:00 Test Item Value Reference Range Interpretation Comments Basophils (test code = 0.7 See_Comment [Aut omated message] The Basophils) system which ge nerated this result tra nsmitted reference range : <=1.0. The reference r eileen was not used to int erpret this result as normal/abnormal . [facility] HospitalPdpslozAVERRYEYPX8098-78-18 10:53:00 Test Item Value Reference Range Interpretation Comments Lymphocytes (test code = Lymphocytes) 10.2 20.0-40.[address] [facility] HospitalSlubsfeHVKLEESCRD3325-26-89 10:53:00 Test Item Value Reference Range Interpretation Comments Neutrophils # (test code = Neutrophils 4.5 1.5-8.1 #) [facility] HospitalQblkaosNWMCRLYRUT6920-98-61 10:53:00 Test Item Value Reference Range Interpretation Comments Lymphocytes # (test code = Lymphocytes 0.7 1.0-5.5 #) [facility] HospitalMdzivsyIDCTGNDYZN1053-88-76 10:53:00 Test Item Value Reference Range Interpretation Comments Eosinophils # (test code 0.3 See_Comment [A utomated message] The = Eosinophils #) system [facility] h generated this result tra nsmitted reference range : <=0.5. The reference r eileen was not used to int erpret this result as normal/abnormal . [facility] HospitalTnvypvgQXNSQYFMEH0733-57-23 10:53:00 Test Item Value Reference Range Interpretation Comments Monocytes # (test code 1.5 See_Comment [Aut omated message] The = Monocytes #) system which generated this result tra nsmitted reference range : <=0.8. The reference r eileen was not used to int erpret this result as normal/abnormal . [facility] HospitalOfsiiphACXZTBDDKG8176-34-87 10:53:00 Test Item Value Reference Range Interpretation Comments WBC (test code = WBC) 7.0 3.7-10.[address] [facility] HospitalSwspsguEMJIKWHZTJ8063-41-77 10:53:00 Test Item Value Reference Range Interpretation Comments RBC (test code = RBC) 2.62 4.20-5.[address] [facility] HospitalHstlczbMSFQHXXDTW9342-95-57 10:53:00 Test Item Value Reference Range Interpretation Comments Hgb (test code = Hgb) 7.6 12.0-16.[address] [facility] HospitalHcvipjhAJBZUJSCKT4679-24-53 10:53:00 Test Item Value Reference Range Interpretation Comments Hct (test code = Hct) 22.6 36.0-48.[address] [facility] HospitalGvgjhvwYOXZKCVMWS3982-61-93 10:53:00 Test Item Value Reference Range Interpretation Comments MCV (test code = MCV) 86.4 80.0-98.[address] [facility] HospitalIloilpyHEVMOTLATL0483-80-39 10:53:00 Test Item Value Reference Range Interpretation Comments MCHC (test code = MCHC) 33.6 32.0-36.[address] [facility] HospitalYkmheadYIRTTUSRRS3692-76-78 10:53:00 Test Item Value Reference Range Interpretation Comments MCH (test code = MCH) 29.0 pg 27.0-31.[address] [facility] HospitalSywasklGETFFKAZGU2272-45-19 10:53:00 Test Item Value Reference Range Interpretation Comments RDW (test code = RDW) 15.8 11.5-14.[address] [facility] HospitalEyakvwaBVCUNYWTGQ6998-06-86 10:53:00 Test Item Value Reference Range Interpretation Comments MPV (test code = MPV) 9.7 7.4-10.[address] [facility] HospitalBztgkzaETCXRUKJBO2687-12-09 10:53:00 Test Item Value Reference Range Interpretation Comments Platelet (test code = Platelet) 98 133-450 [facility] StationW[facility] PDJHEVJ3274-91-01 11:45:00 Test Item Value Reference Range Interpretation Comments RBC product (test code Product available = RBC product) 4(01/17/19 6:45 AM) [facility] Station[facility] [id number] 11:45:00 Test Item Value Reference Range Interpretation Comments RBC product (test code Product available = RBC product) 4(01/17/19 6:45 AM) [facility] [id number] 11:45:00 Test Item Value Reference Range Interpretation Comments RBC product (test code Product available = RBC product) 4(01/17/19 6:45 AM) [facility] [employer] [id number] 11:45:00 Test Item Value Reference Range Interpretation Comments RBC product (test code Product available = RBC product) 4(01/17/19 6:45 AM) [facility] HospitalAgile Energy [id number] 10:38:00 Test Item Value Reference Range Interpretation Comments eGFR (test code = eGFR) 10 [facility]Ag[facility] [id number] 10:38:00 Test Item Value Reference Range Interpretation Comments BUN (test code = BUN) 34 7-22 [facility]2019-07-27 10:38:00 Test Item Value Reference Range Interpretation Comments Creatinine Lvl (test code = Creatinine 5.10 0.50-1.40 Lvl) [facility]2019-07-27 10:38:00 Test Item Value Reference Range Interpretation Comments Glucose Lvl (test code = Glucose Lvl) 117 70-99 [facility]2019-07-27 10:38:00 Test Item Value Reference Range Interpretation Comments Chloride Lvl (test code = Chloride Lvl) 106 95-109 [facility]2019-07-27 10:38:00 Test Item Value Reference Range Interpretation Comments Potassium Lvl (test code = Potassium 5.2 3.5-5.1 Lvl) [facility]2019-07-27 10:38:00 Test Item Value Reference Range Interpretation Comments Sodium Lvl (test code = Sodium Lvl) 141 135-145 [facility]2019-07-27 10:38:00 Test Item Value Reference Range Interpretation Comments CO2 (test code = CO2) 25 24-32 [facility]2019-07-27 10:38:00 Test Item Value Reference Range Interpretation Comments Calcium Lvl (test code = Calcium Lvl) 8.5 8.5-10.5 [facility]2019-07-27 10:38:00 Test Item Value Reference Range Interpretation Comments AGAP (test code = AGAP) 15.2 10.0-20.[address] [facility] HospitalHnqeddpEFSQVJMCKJ4977-71-45 10:38:00 Test Item Value Reference Range Interpretation Comments Basophils (test code = 0.8 See_Comment [Aut omated message] The Basophils) system which ge nerated this result tra nsmitted reference range : <=1.0. The reference r eileen was not used to int erpret this result as normal/abnormal . [facility] HospitalFyxzqcmSALPNDYWUN8521-47-12 10:38:00 Test Item Value Reference Range Interpretation Comments Segs (test code = Segs) 70.0 45.0-75.[address] [facility] HospitalFlryjylTOKXBPBAMF5011-59-67 10:38:00 Test Item Value Reference Range Interpretation Comments Lymphocytes (test code = Lymphocytes) 8.2 20.0-40.[address] [facility] HospitalMidxsomQYBSPSKSHG7729-54-17 10:38:00 Test Item Value Reference Range Interpretation Comments Monocytes (test code = Monocytes) 19.0 2.0-12.[address] [facility] HospitalDjfxtpeYMQPMBCCJR8266-65-74 10:38:00 Test Item Value Reference Range Interpretation Comments Eosinophils (test code = 2.0 See_Comment [A utomated message] The Eosinophils) system which ge nerated this result tra nsmitted reference range : <=4.0. The reference r eileen was not used to int erpret this result as normal/abnormal . [facility] [facility] HospitalEhjptghMKCDBUDIXJ9941-09-05 10:38:00 Test Item Value Reference Range Interpretation Comments Neutrophils # (test code = Neutrophils 4.3 1.5-8.1 #) [facility] HospitalIqrtjqqMDIQAELZHK6855-79-19 10:38:00 Test Item Value Reference Range Interpretation Comments Lymphocytes # (test code = Lymphocytes 0.5 1.0-5.5 #) [facility] HospitalSlehsjfBGKGSVSIGW3965-96-06 10:38:00 Test Item Value Reference Range Interpretation Comments Monocytes # (test code 1.2 See_Comment [Aut omated message] The = Monocytes #) system which generated this result tra nsmitted reference range : <=0.8. The reference r eileen was not used to int erpret this result as normal/abnormal . [facility] HospitalQmykyxmZEIARMSYFV6671-08-39 10:38:00 Test Item Value Reference Range Interpretation Comments Eosinophils # (test code 0.1 See_Comment [A utomated message] The = Eosinophils #) system whic h generated this result tra nsmitted reference range : <=0.5. The reference r eileen was not used to int erpret this result as normal/abnormal . [facility] HospitalMlhitvaZPYKGPAWPE5069-61-09 10:38:00 Test Item Value Reference Range Interpretation Comments Hct (test code = Hct) 21.1 36.0-48.[address] [facility] HospitalPfgnvgeBTTICBLEEC4292-26-68 10:38:00 Test Item Value Reference Range Interpretation Comments MCV (test code = MCV) 87.7 80.0-98.[address] [facility] HospitalHyznqljLJKOWVYTTI5646-74-84 10:38:00 Test Item Value Reference Range Interpretation Comments Hgb (test code = Hgb) 6.8 12.0-16.[address] [facility] HospitalKvsnqklSVBITDYHST8479-70-03 10:38:00 Test Item Value Reference Range Interpretation Comments MCH (test code = MCH) 28.4 pg 27.0-31.[address] HospitalRgbavwwEKSVAQEDFW3799-55-97 10:38:00 Test Item Value Reference Range Interpretation Comments RDW (test code = RDW) 16.6 11.5-14.[address] [facility] HospitalCwjysciJBPFVRFDOB5774-94-77 10:38:00 Test Item Value Reference Range Interpretation Comments Platelet (test code = Platelet) 102 133-[address] [facility] [facility] HospitalNcaluytLLXWVLQWUV9651-82-15 10:38:00 Test Item Value Reference Range Interpretation Comments MPV (test code = MPV) 9.7 7.4-10.[address] [facility] HospitalQkhrbgjIBQCWNHZHQ8013-48-38 10:38:00 Test Item Value Reference Range Interpretation Comments MCHC (test code = MCHC) 32.4 32.0-36.[address] [facility] HospitalSqoxyaiHLVVKAYEDX9968-57-07 10:38:00 Test Item Value Reference Range Interpretation Comments WBC (test code = WBC) 6.1 3.7-10.[address] [facility] HospitalKcgnbofIJSGCKLFYM9602-91-84 10:38:00 Test Item Value Reference Range Interpretation Comments RBC (test code = RBC) 2.41 4.20-5.40 [facility]2019-07-27 10:38:00 Test Item Value Reference Range Interpretation Comments eGFR (test code = eGFR) 10 [facility]2019-07-27 10:38:00 Test Item Value Reference Range Interpretation Comments BUN (test code = BUN) 34 7-22 [facility]2019-07-27 10:38:00 Test Item Value Reference Range Interpretation Comments Creatinine Lvl (test code = Creatinine 5.10 0.50-1.40 Lvl) [facility]2019-07-27 10:38:00 Test Item Value Reference Range Interpretation Comments Glucose Lvl (test code = Glucose Lvl) 117 70-99 [facility]2019-07-27 10:38:00 Test Item Value Reference Range Interpretation Comments Chloride Lvl (test code = Chloride Lvl) 106 95-109 [facility]2019-07-27 10:38:00 Test Item Value Reference Range Interpretation Comments Potassium Lvl (test code = Potassium 5.2 3.5-5.1 Lvl) [facility]2019-07-27 10:38:00 Test Item Value Reference Range Interpretation Comments Sodium Lvl (test code = Sodium Lvl) 141 135-145 [facility]2019-07-27 10:38:00 Test Item Value Reference Range Interpretation Comments CO2 (test code = CO2) 25 24-32 [facility]2019-07-27 10:38:00 Test Item Value Reference Range Interpretation Comments Calcium Lvl (test code = Calcium Lvl) 8.5 8.5-10.5 [facility]2019-07-27 10:38:00 Test Item Value Reference Range Interpretation Comments AGAP (test code = AGAP) 15.2 10.0-20.[address] [facility] HospitalDzzynqlTTFQCALXFP4648-14-38 10:38:00 Test Item Value Reference Range Interpretation Comments Basophils (test code = 0.8 See_Comment [Aut omated message] The Basophils) system which ge nerated this result tra nsmitted reference range : <=1.0. The reference r eileen was not used to int erpret this result as normal/abnormal . [facility] HospitalEvsrlyzPMCLEQPOWB2051-38-27 10:38:00 Test Item Value Reference Range Interpretation Comments Segs (test code = Segs) 70.0 45.0-75.[address] [facility] HospitalLtvhedzDRYOAMXFIR5370-14-81 10:38:00 Test Item Value Reference Range Interpretation Comments Lymphocytes (test code = Lymphocytes) 8.2 20.0-40.[address] [facility] HospitalBfiellcJNZHPNZXLM9285-29-91 10:38:00 Test Item Value Reference Range Interpretation Comments Monocytes (test code = Monocytes) 19.0 2.0-12.[address] [facility] HospitalZykvbxdBGPSCBLPWU9229-26-78 10:38:00 Test Item Value Reference Range Interpretation Comments Eosinophils (test code = 2.0 See_Comment [A utomated message] The Eosinophils) system which ge nerated this result tra nsmitted reference range : <=4.0. The reference r eileen was not used to int erpret this result as normal/abnormal . [facility] HospitalXynmhzpLRPHGWSQHS6786-99-22 10:38:00 Test Item Value Reference Range Interpretation Comments Neutrophils # (test code = Neutrophils 4.3 1.5-8.1 #) [facility] HospitalKvmcifgXCOJSECIGD2322-14-63 10:38:00 Test Item Value Reference Range Interpretation Comments Lymphocytes # (test code = Lymphocytes 0.5 1.0-5.5 #) [facility] HospitalIuvfakuUXPAMQZTGW4459-27-06 10:38:00 Test Item Value Reference Range Interpretation Comments Monocytes # (test code 1.2 See_Comment [Aut omated message] The = Monocytes #) system which generated this result tra nsmitted reference range : <=0.8. The reference r eileen was not used to int erpret this result as normal/abnormal . [facility] HospitalIeuhlubQSMWROQYZK3715-04-95 10:38:00 Test Item Value Reference Range Interpretation Comments Eosinophils # (test code 0.1 See_Comment [A utomated message] The = Eosinophils #) system whic h generated this result tra nsmitted reference range : <=0.5. The reference r eileen was not used to int erpret this result as normal/abnormal . [facility] HospitalUjiaqoxAUJMQCAKGW7529-95-52 10:38:00 Test Item Value Reference Range Interpretation Comments Hct (test code = Hct) 21.1 36.0-48.[address] [facility] HospitalBryiunjEUMIFPOVEL1911-03-84 10:38:00 Test Item Value Reference Range Interpretation Comments MCV (test code = MCV) 87.7 80.0-98.[address] [facility] HospitalUuouprlYRLIHIIKZW6552-43-92 10:38:00 Test Item Value Reference Range Interpretation Comments Hgb (test code = Hgb) 6.8 12.0-16.[address] [facility] HospitalPhnwcryQVLMDHDMDD1932-45-37 10:38:00 Test Item Value Reference Range Interpretation Comments MCH (test code = MCH) 28.4 pg 27.0-31.[address] [facility] HospitalVepzhqeUUOPXCXJJF8194-99-00 10:38:00 Test Item Value Reference Range Interpretation Comments RDW (test code = RDW) 16.6 11.5-14.[address] [facility] HospitalKfchxgdDBMWWZFVYM5507-87-69 10:38:00 Test Item Value Reference Range Interpretation Comments Platelet (test code = Platelet) 102 133-[address] [facility] [facility] HospitalPlqiebdKOVBPNSZQV2440-25-36 10:38:00 Test Item Value Reference Range Interpretation Comments MPV (test code = MPV) 9.7 7.4-10.[address] [facility] HospitalXehirazKZVFKJKOCN1305-83-84 10:38:00 Test Item Value Reference Range Interpretation Comments MCHC (test code = MCHC) 32.4 32.0-36.[address] [facility] HospitalRzcipsyQWLLCXIDJM7344-35-82 10:38:00 Test Item Value Reference Range Interpretation Comments WBC (test code = WBC) 6.1 3.7-10.[address] [facility] HospitalQaqogbrXPMZCQXTYE4683-28-39 10:38:00 Test Item Value Reference Range Interpretation Comments RBC (test code = RBC) 2.41 4.20-5.40 [facility]2019-07-27 10:38:00 Test Item Value Reference Range Interpretation Comments eGFR (test code = eGFR) 10 [facility]2019-07-27 10:38:00 Test Item Value Reference Range Interpretation Comments BUN (test code = BUN) 34 7-22 [facility]2019-07-27 10:38:00 Test Item Value Reference Range Interpretation Comments Creatinine Lvl (test code = Creatinine 5.10 0.50-1.40 Lvl) [facility]2019-07-27 10:38:00 Test Item Value Reference Range Interpretation Comments Glucose Lvl (test code = Glucose Lvl) 117 70-99 [facility]2019-07-27 10:38:00 Test Item Value Reference Range Interpretation Comments Chloride Lvl (test code = Chloride Lvl) 106 95-109 [facility]2019-07-27 10:38:00 Test Item Value Reference Range Interpretation Comments Potassium Lvl (test code = Potassium 5.2 3.5-5.1 Lvl) [facility]2019-07-27 10:38:00 Test Item Value Reference Range Interpretation Comments Sodium Lvl (test code = Sodium Lvl) 141 135-145 [facility]2019-07-27 10:38:00 Test Item Value Reference Range Interpretation Comments CO2 (test code = CO2) 25 24-32 [facility]2019-07-27 10:38:00 Test Item Value Reference Range Interpretation Comments Calcium Lvl (test code = Calcium Lvl) 8.5 8.5-10.5 [facility]2019-07-27 10:38:00 Test Item Value Reference Range Interpretation Comments AGAP (test code = AGAP) 15.2 10.0-20.[address] [facility] HospitalEhryfbeGFWHBPYSTG9788-94-23 10:38:00 Test Item Value Reference Range Interpretation Comments Basophils (test code = 0.8 See_Comment [Aut omated message] The Basophils) system which ge nerated this result tra nsmitted reference range : <=1.0. The reference r eileen was not used to int erpret this result as normal/abnormal . [facility] HospitalSvhenoyEBVURKBPVO4947-32-37 10:38:00 Test Item Value Reference Range Interpretation Comments Segs (test code = Segs) 70.0 45.0-75.[address] [facility] HospitalLidxurnPIJBPWJSNY6930-81-12 10:38:00 Test Item Value Reference Range Interpretation Comments Lymphocytes (test code = Lymphocytes) 8.2 20.0-40.[address] [facility] HospitalHindasmAWNEPQYMVN8848-59-40 10:38:00 Test Item Value Reference Range Interpretation Comments Monocytes (test code = Monocytes) 19.0 2.0-12.[address] [facility] HospitalThwhxhlEHLIPGIEIT3027-25-47 10:38:00 Test Item Value Reference Range Interpretation Comments Eosinophils (test code = 2.0 See_Comment [A utomated message] The Eosinophils) system which ge nerated this result tra nsmitted reference range : <=4.0. The reference r eileen was not used to int erpret this result as normal/abnormal . [facility] HospitalIjjzkymYNJFIBATQE9557-40-75 10:38:00 Test Item Value Reference Range Interpretation Comments Neutrophils # (test code = Neutrophils 4.3 1.5-8.1 #) [facility] HospitalMtsgkpqAJQSUVYZZA8054-44-60 10:38:00 Test Item Value Reference Range Interpretation Comments Lymphocytes # (test code = Lymphocytes 0.5 1.0-5.5 #) [facility] HospitalZeyxjlhHQCGPQWOSW7789-16-12 10:38:00 Test Item Value Reference Range Interpretation Comments Monocytes # (test code 1.2 See_Comment [Aut omated message] The = Monocytes #) system which generated this result tra nsmitted reference range : <=0.8. The reference r eileen was not used to int erpret this result as normal/abnormal . [facility] HospitalTjgvyhzUEWZLMFXSI4531-66-52 10:38:00 Test Item Value Reference Range Interpretation Comments Eosinophils # (test code 0.1 See_Comment [A utomated message] The = Eosinophils #) system [facility] generated this result tra nsmitted reference range : <=0.5. The reference r eileen was not used to int erpret this result as normal/abnormal . [facility] HospitalDbceffoJILVJSDEPN3061-32-75 10:38:00 Test Item Value Reference Range Interpretation Comments Hct (test code = Hct) 21.1 36.0-48.[address] [facility] HospitalXoctcgbDCTGRGBNQL7190-00-67 10:38:00 Test Item Value Reference Range Interpretation Comments MCV (test code = MCV) 87.7 80.0-98.[address] [facility] HospitalDptklqkAWTMHOMBVG7852-77-53 10:38:00 Test Item Value Reference Range Interpretation Comments Hgb (test code = Hgb) 6.8 12.0-16.[address] [facility] HospitalYpdcsuhRNAPWUBPOY2759-61-31 10:38:00 Test Item Value Reference Range Interpretation Comments MCH (test code = MCH) 28.4 pg 27.0-31.[address] [facility] HospitalJkuyzvqCXKELNCSAV2862-22-34 10:38:00 Test Item Value Reference Range Interpretation Comments RDW (test code = RDW) 16.6 11.5-14.[address] [facility] HospitalYleizilQBOMPAVQFH8629-97-03 10:38:00 Test Item Value Reference Range Interpretation Comments Platelet (test code = Platelet) 102 133-[address] [facility] [facility] HospitalDoyccvvRVJQLWBNWV0674-50-01 10:38:00 Test Item Value Reference Range Interpretation Comments MPV (test code = MPV) 9.7 7.4-10.[address] [facility] HospitalKzxbrzoLVALVZAADA2626-39-79 10:38:00 Test Item Value Reference Range Interpretation Comments MCHC (test code = MCHC) 32.4 32.0-36.[address] [facility] HospitalXudppdrBKYNNRFFUI4260-41-10 10:38:00 Test Item Value Reference Range Interpretation Comments WBC (test code = WBC) 6.1 3.7-10.[address] [facility] HospitalIurumctJDBQMIKZKR1216-01-63 10:38:00 Test Item Value Reference Range Interpretation Comments RBC (test code = RBC) 2.41 4.20-5.40 [facility]2019-07-27 10:38:00 Test Item Value Reference Range Interpretation Comments eGFR (test code = eGFR) 10 [facility]2019-07-27 10:38:00 Test Item Value Reference Range Interpretation Comments BUN (test code = BUN) 34 7-22 [facility]2019-07-27 10:38:00 Test Item Value Reference Range Interpretation Comments Creatinine Lvl (test code = Creatinine 5.10 0.50-1.40 Lvl) [facility]2019-07-27 10:38:00 Test Item Value Reference Range Interpretation Comments Glucose Lvl (test code = Glucose Lvl) 117 70-99 [facility]2019-07-27 10:38:00 Test Item Value Reference Range Interpretation Comments Chloride Lvl (test code = Chloride Lvl) 106 95-109 [facility]2019-07-27 10:38:00 Test Item Value Reference Range Interpretation Comments Potassium Lvl (test code = Potassium 5.2 3.5-5.1 Lvl) [facility]2019-07-27 10:38:00 Test Item Value Reference Range Interpretation Comments Sodium Lvl (test code = Sodium Lvl) 141 135-145 [facility]2019-07-27 10:38:00 Test Item Value Reference Range Interpretation Comments CO2 (test code = CO2) 25 24-32 [facility]2019-07-27 10:38:00 Test Item Value Reference Range Interpretation Comments Calcium Lvl (test code = Calcium Lvl) 8.5 8.5-10.5 [facility]2019-07-27 10:38:00 Test Item Value Reference Range Interpretation Comments AGAP (test code = AGAP) 15.2 10.0-20.[address] [facility] HospitalEmjbnsmDMLIQEDSDP1464-90-48 10:38:00 Test Item Value Reference Range Interpretation Comments Basophils (test code = 0.8 See_Comment [Aut omated message] The Basophils) system which ge nerated this result tra nsmitted reference range : <=1.0. The reference r eileen was not used to int erpret this result as normal/abnormal . [facility] HospitalUvfevdhDYUCOSNNST8291-69-43 10:38:00 Test Item Value Reference Range Interpretation Comments Segs (test code = Segs) 70.0 45.0-75.[address] [facility] HospitalIgillujYKDNXVAZKM7048-28-35 10:38:00 Test Item Value Reference Range Interpretation Comments Lymphocytes (test code = Lymphocytes) 8.2 20.0-40.[address] [facility] HospitalLsxbsssQGRJRLWXCO5484-16-03 10:38:00 Test Item Value Reference Range Interpretation Comments Monocytes (test code = Monocytes) 19.0 2.0-12.[address] [facility] HospitalVrcvdwzCRHQFJSSCR7040-82-82 10:38:00 Test Item Value Reference Range Interpretation Comments Eosinophils (test code = 2.0 See_Comment [A utomated message] The Eosinophils) system which ge nerated this result tra nsmitted reference range : <=4.0. The reference r eileen was not used to int erpret this result as normal/abnormal . [facility] HospitalJbowvssAVQFLZLICF6650-63-73 10:38:00 Test Item Value Reference Range Interpretation Comments Neutrophils # (test code = Neutrophils 4.3 1.5-8.1 #) [facility] HospitalWtzfhpeXLQBFNBIMH8953-99-49 10:38:00 Test Item Value Reference Range Interpretation Comments Lymphocytes # (test code = Lymphocytes 0.5 1.0-5.5 #) [facility] HospitalBziwjtzTCWNWDIJEX7852-72-37 10:38:00 Test Item Value Reference Range Interpretation Comments Monocytes # (test code 1.2 See_Comment [Aut omated message] The = Monocytes #) system which generated this result tra nsmitted reference range : <=0.8. The reference r eileen was not used to int erpret this result as normal/abnormal . [facility] HospitalOtqqlrsPOFSDMLQLZ2577-13-20 10:38:00 Test Item Value Reference Range Interpretation Comments Eosinophils # (test code 0.1 See_Comment [A utomated message] The = Eosinophils #) system whic h generated this result tra nsmitted reference range : <=0.5. The reference r eileen was not used to int erpret this result as normal/abnormal . [facility] HospitalSmresjsYKFHSJJNXS5440-54-62 10:38:00 Test Item Value Reference Range Interpretation Comments Hct (test code = Hct) 21.1 36.0-48.[address] [facility] HospitalZcefglgCTPZYSTIRM8716-72-27 10:38:00 Test Item Value Reference Range Interpretation Comments MCV (test code = MCV) 87.7 80.0-98.[address] [facility] HospitalAlhewgyNUZDPEBEGL5597-11-29 10:38:00 Test Item Value Reference Range Interpretation Comments Hgb (test code = Hgb) 6.8 12.0-16.[address] [facility] HospitalTygjwokSNJBLREWXU6561-38-10 10:38:00 Test Item Value Reference Range Interpretation Comments MCH (test code = MCH) 28.4 pg 27.0-31.[address] [facility] HospitalAzelhmhHMBARTRXRR0113-87-44 10:38:00 Test Item Value Reference Range Interpretation Comments RDW (test code = RDW) 16.6 11.5-14.[address] [facility] HospitalOlplrqnPSQCKMCBLK7242-50-14 10:38:00 Test Item Value Reference Range Interpretation Comments Platelet (test code = Platelet) 102 133-[address] [facility] HospitalDlskuhyPMBTRVTLQF9921-86-16 10:38:00 Test Item Value Reference Range Interpretation Comments MPV (test code = MPV) 9.7 7.4-10.[address] [facility] HospitalHzponfrGHJRWBWIKU6662-61-94 10:38:00 Test Item Value Reference Range Interpretation Comments MCHC (test code = MCHC) 32.4 32.0-36.[address] [facility] HospitalAabjbsnLNZULGHHTU9906-88-12 10:38:00 Test Item Value Reference Range Interpretation Comments WBC (test code = WBC) 6.1 3.7-10.[address] [facility] HospitalMoqqghkEVJCVQPKYR3358-82-85 10:38:00 Test Item Value Reference Range Interpretation Comments RBC (test code = RBC) 2.41 4.20-5.40 [facility]watEZSUPGHSMJ1823-24-68 19:50:00 Test Item Value Reference Range Interpretation Comments Hep C Ab (test code = Negative *NA*(01/16/19 Hep C Ab) 2:50 PM) [facility]PtswsgvQHWYYARLKN5126-08-75 19:50:00 Test Item Value Reference Range Interpretation Comments Hep Bs Ab (test code = Hep Bs Ab) no gt [facility] SystemWndnxdiPZSEPDECIQ7525-36-01 19:50:00 Test Item Value Reference Range Interpretation Comments Hep B Core Ab (test Negative *NA*(01/16/19 code = Hep B Core Ab) 2:50 PM) [facility] SystemHjnatwgVMIUSQMBPF1151-45-86 19:50:00 Test Item Value Reference Range Interpretation Comments Hep Bs Ag (test code Negative *NA*(01/16/19 = Hep Bs Ag) 2:50 PM) [facility] SystemPidrdxfOPLDDMLLFE2025-71-66 19:50:00 Test Item Value Reference Range Interpretation Comments Hep C Ab (test code = Negative *NA*(01/16/19 Hep C Ab) 2:50 PM) [facility] SystemStcrbsgYSNIRTGUUD2162-50-84 19:50:00 Test Item Value Reference Range Interpretation Comments Hep Bs Ab (test code = Hep Bs Ab) [facility] gt [facility]XmabkkbFZYUIDMYIE7790-47-62 19:50:00 Test Item Value Reference Range Interpretation Comments Hep B Core Ab (test Negative *NA*(01/16/19 code = Hep B Core Ab) 2:50 PM) [facility] SouthWgasazoYJFXAHJHIM2921-95-71 19:50:00 Test Item Value Reference Range Interpretation Comments Hep Bs Ag (test code Negative *NA*(01/16/19 = Hep Bs Ag) 2:50 PM) [facility]kqxgcGNLSLOQCEB1829-68-57 19:50:00 Test Item Value Reference Range Interpretation Comments Hep C Ab (test code = Negative *NA*(01/16/19 Hep C Ab) 2:50 PM) [facility] SouthWvvjwqlMWGASGOEOD5452-97-52 19:50:00 Test Item Value Reference Range Interpretation Comments Hep Bs Ab (test code = Hep Bs Ab) no gt [facility] SouthVviojzxUZJDZCPNLH8223-00-24 19:50:00 Test Item Value Reference Range Interpretation Comments Hep B Core Ab (test Negative *NA*(01/16/19 code = Hep B Core Ab) 2:50 PM) [facility] SouthGlokzajWJNMEYRUIW5556-32-61 19:50:00 Test Item Value Reference Range Interpretation Comments Hep Bs Ag (test code Negative *NA*(01/16/19 = Hep Bs Ag) 2:50 PM) [facility] SouthTakrrvoSJKEEPNRRP0189-67-36 19:50:00 Test Item Value Reference Range Interpretation Comments Hep C Ab (test code = Negative *NA*(01/16/19 Hep C Ab) 2:50 PM) [facility] SouthZpvvetpIGIBYLTWTW2982-33-44 19:50:00 Test Item Value Reference Range Interpretation Comments Hep Bs Ab (test code = Hep Bs Ab) [facility] gt [facility]SvlthdiTZLLMRREBQ7719-32-47 19:50:00 Test Item Value Reference Range Interpretation Comments Hep B Core Ab (test Negative *NA*(01/16/19 code = Hep B Core Ab) 2:50 PM) [facility] HospitalUedtpeaMFHJVISZAL5347-60-50 19:50:00 Test Item Value Reference Range Interpretation Comments Hep Bs Ag (test code Negative *NA*(01/16/19 = Hep Bs Ag) 2:50 PM) [facility]2019-07-26 19:08:56 Test Item Value Reference Range Interpretation Comments eGFR (test code = eGFR) 8 [facility]2019-07-26 19:08:56 Test Item Value Reference Range Interpretation Comments Potassium Lvl (test code = Potassium 3.3 3.5-5.1 Lvl) [facility]2019-07-26 19:08:56 Test Item Value Reference Range Interpretation Comments Chloride Lvl (test code = Chloride Lvl) 108 95-109 [facility]2019-07-26 19:08:56 Test Item Value Reference Range Interpretation Comments CO2 (test code = CO2) 23 24-32 [place] 262289-07-26 19:08:56 Test Item Value Reference Range Interpretation Comments Calcium Lvl (test code = Calcium Lvl) 10.1 8.5-10.5 [facility]2019-07-26 19:08:56 Test Item Value Reference Range Interpretation Comments AGAP (test code = AGAP) 12.3 10.0-20.0 [facility]2019-07-26 19:08:56 Test Item Value Reference Range Interpretation Comments Sodium Lvl (test code = Sodium Lvl) 140 135-145 [facility]2019-07-26 19:08:56 Test Item Value Reference Range Interpretation Comments BUN (test code = BUN) 47 7-22 [facility]2019-07-26 19:08:56 Test Item Value Reference Range Interpretation Comments Creatinine Lvl (test code = Creatinine 5.77 0.50-1.40 Lvl) [facility]2019-07-26 19:08:56 Test Item Value Reference Range Interpretation Comments Glucose Lvl (test code = Glucose Lvl) 131 70-[address] [facility] HospitalWwrvkwcQXKYPPOMPG2282-99-08 19:08:56 Test Item Value Reference Range Interpretation Comments Hct (test code = Hct) 26.2 36.0-48.[address] [facility] HospitalBllgmfwNDZEXQAOPI7702-14-30 19:08:56 Test Item Value Reference Range Interpretation Comments Hgb (test code = Hgb) 8.3 12.0-16.[address] [facility] HospitalDwhzrydIVWZNAOBEC2951-71-23 19:08:56 Test Item Value Reference Range Interpretation Comments RBC (test code = RBC) 2.98 4.20-5.[address] [facility] HospitalJynjqykLEPXPQLFMQ5754-99-07 19:08:56 Test Item Value Reference Range Interpretation Comments WBC (test code = WBC) 4.6 3.7-10.[address] [facility] HospitalNkchpfxZOSWGJUTJN2786-76-44 19:08:56 Test Item Value Reference Range Interpretation Comments RDW (test code = RDW) 16.7 11.5-14.[address] [facility] HospitalDryupxmSBWMFLLKIW1355-60-90 19:08:56 Test Item Value Reference Range Interpretation Comments MCHC (test code = MCHC) 31.8 32.0-36.[address] [facility] HospitalXoppaptNRSAVGCQBX3975-63-69 19:08:56 Test Item Value Reference Range Interpretation Comments MCH (test code = MCH) 28.0 pg 27.0-31.[address] [facility] HospitalPrtuqkwDQDTKALQDC0004-39-96 19:08:56 Test Item Value Reference Range Interpretation Comments MCV (test code = MCV) 87.9 80.0-98.[address] [facility] HospitalRsxwvczSJHXNVGGJP7742-38-19 19:08:56 Test Item Value Reference Range Interpretation Comments MPV (test code = MPV) 9.1 7.4-10.[address] [facility] [facility] HospitalTjhwyfjAFRZEUUPUQ6932-04-34 19:08:56 Test Item Value Reference Range Interpretation Comments Platelet (test code = Platelet) 140 133-[address] [facility] HospitalAbigrslXNOQRRJYLO2394-79-95 19:08:56 Test Item Value Reference Range Interpretation Comments Eosinophils # (test code 0.1 See_Comment [A utomated message] The = Eosinophils #) system whic h generated this result tra nsmitted reference range : <=0.5. The reference r eileen was not used to int erpret this result as normal/abnormal . [facility] HospitalXyipudfFLOXIUPKGQ8593-82-39 19:08:56 Test Item Value Reference Range Interpretation Comments Monocytes # (test code 0.6 See_Comment [Aut omated message] The = Monocytes #) system which generated this result tra nsmitted reference range : <=0.8. The reference r eileen was not used to int erpret this result as normal/abnormal . [facility] HospitalOhruyagZLCUEASGEY7778-47-45 19:08:56 Test Item Value Reference Range Interpretation Comments Lymphocytes # (test code = Lymphocytes 0.9 1.0-5.5 #) [facility] HospitalRgnazbyLZBLKGTGCL1087-22-91 19:08:56 Test Item Value Reference Range Interpretation Comments Lymphocytes (test code = Lymphocytes) 19.1 20.0-40.[address] [facility] HospitalTqlprsbFUZGXRVXNY9894-47-84 19:08:56 Test Item Value Reference Range Interpretation Comments Segs (test code = Segs) 65.9 45.0-75.[address] [facility] HospitalFghoocrFMUNOFBURX2730-42-92 19:08:56 Test Item Value Reference Range Interpretation Comments Eosinophils (test code = 2.3 See_Comment [A utomated message] The Eosinophils) system which ge nerated this result tra nsmitted reference range : <=4.0. The reference r eileen was not used to int erpret this result as normal/abnormal . [facility] HospitalGevmoulXLBBKBBLPC6746-30-83 19:08:56 Test Item Value Reference Range Interpretation Comments Monocytes (test code = Monocytes) 12.1 2.0-12.[address] [facility] HospitalKewepjkWOVNTXBGTQ8236-99-78 19:08:56 Test Item Value Reference Range Interpretation Comments Neutrophils # (test code = Neutrophils 3.1 1.5-8.1 #) [facility] HospitalSgscjmvVDOPZASAZU6353-23-10 19:08:56 Test Item Value Reference Range Interpretation Comments Basophils (test code = 0.6 See_Comment [Aut omated message] The Basophils) system which ge nerated this result tra nsmitted reference range : <=1.0. The reference r eileen was not used to int erpret this result as normal/abnormal . [facility]2019-07-26 19:08:56 Test Item Value Reference Range Interpretation Comments eGFR (test code = eGFR) 8 [facility]2019-07-26 19:08:56 Test Item Value Reference Range Interpretation Comments Potassium Lvl (test code = Potassium 3.3 3.5-5.1 Lvl) [facility]2019-07-26 19:08:56 Test Item Value Reference Range Interpretation Comments Chloride Lvl (test code = Chloride Lvl) 108 95-109 [facility]2019-07-26 19:08:56 Test Item Value Reference Range Interpretation Comments CO2 (test code = CO2) 23 24-32 [facility]2019-07-26 19:08:56 Test Item Value Reference Range Interpretation Comments Calcium Lvl (test code = Calcium Lvl) 10.1 8.5-10.5 [facility]2019-07-26 19:08:56 Test Item Value Reference Range Interpretation Comments AGAP (test code = AGAP) 12.3 10.0-20.0 [facility]2019-07-26 19:08:56 Test Item Value Reference Range Interpretation Comments Sodium Lvl (test code = Sodium Lvl) 140 135-145 [facility]2019-07-26 19:08:56 Test Item Value Reference Range Interpretation Comments BUN (test code = BUN) 47 7-22 [place] 262289-07-26 19:08:56 Test Item Value Reference Range Interpretation Comments Creatinine Lvl (test code = Creatinine 5.77 0.50-1.40 Lvl) [facility]2019-07-26 19:08:56 Test Item Value Reference Range Interpretation Comments Glucose Lvl (test code = Glucose Lvl) 131 70-[address] [facility] HospitalQpwmhhfVVUZRBSDKS8558-31-13 19:08:56 Test Item Value Reference Range Interpretation Comments Hct (test code = Hct) 26.2 36.0-48.[address] [facility] HospitalKrpmhwjHVVWRXEMSL0074-70-45 19:08:56 Test Item Value Reference Range Interpretation Comments Hgb (test code = Hgb) 8.3 12.0-16.[address] [facility] HospitalUavzpjnBKCSQUJZPU2661-93-15 19:08:56 Test Item Value Reference Range Interpretation Comments RBC (test code = RBC) 2.98 4.20-5.[address] [facility] [facility] HospitalDauwfvmKDCXNXUGMA3132-77-42 19:08:56 Test Item Value Reference Range Interpretation Comments WBC (test code = WBC) 4.6 3.7-10.[address] [facility] [facility] HospitalDjzoiirQRAERXBHXG1436-84-84 19:08:56 Test Item Value Reference Range Interpretation Comments RDW (test code = RDW) 16.7 11.5-14.5 [place] 324739-07-26 19:08:56 Test Item Value Reference Range Interpretation Comments MCHC (test code = MCHC) 31.8 32.0-36.[address] [facility] HospitalBqgaohmQHANUGPQZX6368-97-97 19:08:56 Test Item Value Reference Range Interpretation Comments MCH (test code = MCH) 28.0 pg 27.0-31.0 [place] 324739-07-26 19:08:56 Test Item Value Reference Range Interpretation Comments MCV (test code = MCV) 87.9 80.0-98.[address] [facility] HospitalWgdydxiTSDWJXKVXA2328-53-29 19:08:56 Test Item Value Reference Range Interpretation Comments MPV (test code = MPV) 9.1 7.4-10.[address] [facility] [facility] HospitalWutvmfbUNPHAXFBSH6921-76-76 19:08:56 Test Item Value Reference Range Interpretation Comments Platelet (test code = Platelet) 140 133-[address] [facility] HospitalEnscdfnNGHWBUTJVB9960-20-39 19:08:56 Test Item Value Reference Range Interpretation Comments Eosinophils # (test code 0.1 See_Comment [A utomated message] The = Eosinophils #) system whic h generated this result tra nsmitted reference range : <=0.5. The reference r eileen was not used to int erpret this result as normal/abnormal . [facility] HospitalBudgyanYXCCMEPJLA5155-25-44 19:08:56 Test Item Value Reference Range Interpretation Comments Monocytes # (test code 0.6 See_Comment [Aut omated message] The = Monocytes #) system which generated this result tra nsmitted reference range : <=0.8. The reference r eileen was not used to int erpret this result as normal/abnormal . [facility] HospitalBwpqbvtAKKLVHJANQ6741-41-42 19:08:56 Test Item Value Reference Range Interpretation Comments Lymphocytes # (test code = Lymphocytes 0.9 1.0-5.5 #) [facility] HospitalWsgnbhiKPHKDKZCAB5519-64-88 19:08:56 Test Item Value Reference Range Interpretation Comments Lymphocytes (test code = Lymphocytes) 19.1 20.0-40.[address] [facility] HospitalGstxlvoUYDITHIMJG8611-98-82 19:08:56 Test Item Value Reference Range Interpretation Comments Segs (test code = Segs) 65.9 45.0-75.[address] [facility] HospitalGjxwcmdJWBXHJQQID8843-84-07 19:08:56 Test Item Value Reference Range Interpretation Comments Eosinophils (test code = 2.3 See_Comment [A utomated message] The Eosinophils) system which ge nerated this result tra nsmitted reference range : <=4.0. The reference r eileen was not used to int erpret this result as normal/abnormal . [facility] HospitalMkizmpkBUQFGNTZUM7748-77-38 19:08:56 Test Item Value Reference Range Interpretation Comments Monocytes (test code = Monocytes) 12.1 2.0-12.[address] [facility] HospitalKizhjjsOFBLSTJVLR9223-94-11 19:08:56 Test Item Value Reference Range Interpretation Comments Neutrophils # (test code = Neutrophils 3.1 1.5-8.1 #) [facility] HospitalSwaaoysMPHRCPIXXR4986-70-69 19:08:56 Test Item Value Reference Range Interpretation Comments Basophils (test code = 0.6 See_Comment [Aut omated message] The Basophils) system which ge nerated this result tra nsmitted reference range : <=1.0. The reference r eileen was not used to int erpret this result as normal/abnormal . [facility]2019-07-26 19:08:56 Test Item Value Reference Range Interpretation Comments eGFR (test code = eGFR) 8 [facility]2019-07-26 19:08:56 Test Item Value Reference Range Interpretation Comments Potassium Lvl (test code = Potassium 3.3 3.5-5.1 Lvl) [facility]2019-07-26 19:08:56 Test Item Value Reference Range Interpretation Comments Chloride Lvl (test code = Chloride Lvl) 108 95-109 [facility]2019-07-26 19:08:56 Test Item Value Reference Range Interpretation Comments CO2 (test code = CO2) 23 24-32 [facility]2019-07-26 19:08:56 Test Item Value Reference Range Interpretation Comments Calcium Lvl (test code = Calcium Lvl) 10.1 8.5-10.5 [facility]2019-07-26 19:08:56 Test Item Value Reference Range Interpretation Comments AGAP (test code = AGAP) 12.3 10.0-20.0 [facility]2019-07-26 19:08:56 Test Item Value Reference Range Interpretation Comments Sodium Lvl (test code = Sodium Lvl) 140 135-145 [facility]2019-07-26 19:08:56 Test Item Value Reference Range Interpretation Comments BUN (test code = BUN) 47 7-22 [facility]2019-07-26 19:08:56 Test Item Value Reference Range Interpretation Comments Creatinine Lvl (test code = Creatinine 5.77 0.50-1.40 Lvl) [facility]2019-07-26 19:08:56 Test Item Value Reference Range Interpretation Comments Glucose Lvl (test code = Glucose Lvl) 131 70-[address] [facility] [facility] HospitalNukknaiCJRLVFFTPO8800-97-17 19:08:56 Test Item Value Reference Range Interpretation Comments Hct (test code = Hct) 26.2 36.0-48.[address] [facility] HospitalHmdwrxcHHGCOKNWWT5832-01-47 19:08:56 Test Item Value Reference Range Interpretation Comments Hgb (test code = Hgb) 8.3 12.0-16.[address] [facility] HospitalMqhodnbUPCWFVLGEF3945-97-28 19:08:56 Test Item Value Reference Range Interpretation Comments RBC (test code = RBC) 2.98 4.20-5.[address] [facility] [facility] HospitalPascrooHNNADLRXME1200-71-85 19:08:56 Test Item Value Reference Range Interpretation Comments WBC (test code = WBC) 4.6 3.7-10.[address] [facility] HospitalDblykhfSWZTKOOBPU8762-01-09 19:08:56 Test Item Value Reference Range Interpretation Comments RDW (test code = RDW) 16.7 11.5-14.[address] [facility] HospitalGppmauyVBHRUKBFIY0147-59-73 19:08:56 Test Item Value Reference Range Interpretation Comments MCHC (test code = MCHC) 31.8 32.0-36.[address] [facility] HospitalEozdyecQUFPYHHSDJ6759-59-42 19:08:56 Test Item Value Reference Range Interpretation Comments MCH (test code = MCH) 28.0 pg 27.0-31.[address] [facility] HospitalTmdzcydTBMHYZUJEU7535-81-32 19:08:56 Test Item Value Reference Range Interpretation Comments MCV (test code = MCV) 87.9 80.0-98.[address] [facility] HospitalWdvpqvvEGSOLMXAUO5195-10-60 19:08:56 Test Item Value Reference Range Interpretation Comments MPV (test code = MPV) 9.1 7.4-10.[address] [facility] [facility] HospitalHlolylqDKCCLFBQIB3856-50-07 19:08:56 Test Item Value Reference Range Interpretation Comments Platelet (test code = Platelet) 140 133-[address] [facility] HospitalQgspnnmBXHILVAEYR2846-09-49 19:08:56 Test Item Value Reference Range Interpretation Comments Eosinophils # (test code 0.1 See_Comment [A utomated message] The = Eosinophils #) system whic h generated this result tra nsmitted reference range : <=0.5. The reference r eileen was not used to int erpret this result as normal/abnormal . [facility] HospitalMzfpfjnVFTTPYMRKU1797-36-77 19:08:56 Test Item Value Reference Range Interpretation Comments Monocytes # (test code 0.6 See_Comment [Aut omated message] The = Monocytes #) system which generated this result tra nsmitted reference range : <=0.8. The reference r eileen was not used to int erpret this result as normal/abnormal . [facility] HospitalFausrqlLRVYMYBLUB2963-20-22 19:08:56 Test Item Value Reference Range Interpretation Comments Lymphocytes # (test code = Lymphocytes 0.9 1.0-5.5 #) [facility] HospitalZzmgfxnYURQORIBKD1999-74-18 19:08:56 Test Item Value Reference Range Interpretation Comments Lymphocytes (test code = Lymphocytes) 19.1 20.0-40.[address] [facility] HospitalEcsvccfXPIPKLUKHU4310-74-26 19:08:56 Test Item Value Reference Range Interpretation Comments Segs (test code = Segs) 65.9 45.0-75.[address] [facility] HospitalEyyilucOMJHIKYGQF1161-70-25 19:08:56 Test Item Value Reference Range Interpretation Comments Eosinophils (test code = 2.3 See_Comment [A utomated message] The Eosinophils) system which ge nerated this result tra nsmitted reference range : <=4.0. The reference r eileen was not used to int erpret this result as normal/abnormal . [facility] HospitalKppxnpaRPVHVYQYBD3977-17-84 19:08:56 Test Item Value Reference Range Interpretation Comments Monocytes (test code = Monocytes) 12.1 2.0-12.[address] [facility] HospitalEpvpyybDRTFFWVKXM5129-70-05 19:08:56 Test Item Value Reference Range Interpretation Comments Neutrophils # (test code = Neutrophils 3.1 1.5-8.1 #) [facility] HospitalXezidtiDWYOKSFBZU0155-28-33 19:08:56 Test Item Value Reference Range Interpretation Comments Basophils (test code = 0.6 See_Comment [Aut omated message] The Basophils) system which ge nerated this result tra nsmitted reference range : <=1.0. The reference r eileen was not used to int erpret this result as normal/abnormal . [facility]2019-07-26 19:08:56 Test Item Value Reference Range Interpretation Comments eGFR (test code = eGFR) 8 [facility]2019-07-26 19:08:56 Test Item Value Reference Range Interpretation Comments Potassium Lvl (test code = Potassium 3.3 3.5-5.1 Lvl) [facility]2019-07-26 19:08:56 Test Item Value Reference Range Interpretation Comments Chloride Lvl (test code = Chloride Lvl) 108 95-109 [facility]2019-07-26 19:08:56 Test Item Value Reference Range Interpretation Comments CO2 (test code = CO2) 23 24-32 [facility]2019-07-26 19:08:56 Test Item Value Reference Range Interpretation Comments Calcium Lvl (test code = Calcium Lvl) 10.1 8.5-10.5 [facility]2019-07-26 19:08:56 Test Item Value Reference Range Interpretation Comments AGAP (test code = AGAP) 12.3 10.0-20.0 [facility]2019-07-26 19:08:56 Test Item Value Reference Range Interpretation Comments Sodium Lvl (test code = Sodium Lvl) 140 135-145 [facility]2019-07-26 19:08:56 Test Item Value Reference Range Interpretation Comments BUN (test code = BUN) 47 7-22 [facility]2019-07-26 19:08:56 Test Item Value Reference Range Interpretation Comments Creatinine Lvl (test code = Creatinine 5.77 0.50-1.40 Lvl) [facility]2019-07-26 19:08:56 Test Item Value Reference Range Interpretation Comments Glucose Lvl (test code = Glucose Lvl) 131 70-[address] [facility] HospitalEqfmtfrWUUQDXDQAT0234-58-20 19:08:56 Test Item Value Reference Range Interpretation Comments Hct (test code = Hct) 26.2 36.0-48.[address] [facility] HospitalBcpsjtvEQEONBBBAU2884-07-10 19:08:56 Test Item Value Reference Range Interpretation Comments Hgb (test code = Hgb) 8.3 12.0-16.[address] [facility] HospitalVcplqffFSCHYVRSBR7055-72-47 19:08:56 Test Item Value Reference Range Interpretation Comments RBC (test code = RBC) 2.98 4.20-5.[address] [facility] HospitalMqdsijnKBVDKDGKWK0334-92-55 19:08:56 Test Item Value Reference Range Interpretation Comments WBC (test code = WBC) 4.6 3.7-10.[address] [facility] [facility] HospitalLuwqajyVCVFKAQMJH4998-83-72 19:08:56 Test Item Value Reference Range Interpretation Comments RDW (test code = RDW) 16.7 11.5-14.[address] [facility] HospitalUaboahqJSSYIAKRLY7377-89-12 19:08:56 Test Item Value Reference Range Interpretation Comments MCHC (test code = MCHC) 31.8 32.0-36.[address] [facility] HospitalOmhgwiyYOKXZNUFZK9497-22-49 19:08:56 Test Item Value Reference Range Interpretation Comments MCH (test code = MCH) 28.0 pg 27.0-31.[address] [facility] HospitalVvwknhkIXIMFWTHPR1407-89-89 19:08:56 Test Item Value Reference Range Interpretation Comments MCV (test code = MCV) 87.9 80.0-98.[address] [facility] HospitalYtzsmhqVQWBLTHURU6982-31-64 19:08:56 Test Item Value Reference Range Interpretation Comments MPV (test code = MPV) 9.1 7.4-10.[address] [facility] HospitalRgizjscRYVMLSONRB1388-82-55 19:08:56 Test Item Value Reference Range Interpretation Comments Platelet (test code = Platelet) 140 133-[address] [facility] [facility] HospitalJxyqiegGORFEWNPGG9034-09-73 19:08:56 Test Item Value Reference Range Interpretation Comments Eosinophils # (test code 0.1 See_Comment [A utomated message] The = Eosinophils #) system whic h generated this result tra nsmitted reference range : <=0.5. The reference r eileen was not used to int erpret this result as normal/abnormal . [facility] HospitalVdgorlsWDCFFTWQYH0827-88-32 19:08:56 Test Item Value Reference Range Interpretation Comments Monocytes # (test code 0.6 See_Comment [Aut omated message] The = Monocytes #) system which generated this result tra nsmitted reference range : <=0.8. The reference r eileen was not used to int erpret this result as normal/abnormal . [facility] HospitalBttscebRLFVCOVBLM4463-12-78 19:08:56 Test Item Value Reference Range Interpretation Comments Lymphocytes # (test code = Lymphocytes 0.9 1.0-5.5 #) [facility] HospitalKvgrarmRATPAMRNNH6847-46-11 19:08:56 Test Item Value Reference Range Interpretation Comments Lymphocytes (test code = Lymphocytes) 19.1 20.0-40.[address] [facility] HospitalQbnnbpiTPQESLVWQM1005-95-06 19:08:56 Test Item Value Reference Range Interpretation Comments Segs (test code = Segs) 65.9 45.0-75.[address] [facility] HospitalLxsosutGOUVECCUQG6281-34-57 19:08:56 Test Item Value Reference Range Interpretation Comments Eosinophils (test code = 2.3 See_Comment [A utomated message] The Eosinophils) system which ge nerated this result tra nsmitted reference range : <=4.0. The reference r eileen was not used to int erpret this result as normal/abnormal . [facility] HospitalLteylsvLOMPJQJGWU1712-80-40 19:08:56 Test Item Value Reference Range Interpretation Comments Monocytes (test code = Monocytes) 12.1 2.0-12.[address] [facility] [facility] HospitalKdhszqpKYCQUSVQWG3186-46-06 19:08:56 Test Item Value Reference Range Interpretation Comments Neutrophils # (test code = Neutrophils 3.1 1.5-8.1 #) [facility] HospitalCowknwtIZKRYQPGLM7271-63-53 19:08:56 Test Item Value Reference Range Interpretation Comments Basophils (test code = 0.6 See_Comment [Aut omated message] The Basophils) system which ge nerated this result tra nsmitted reference range : <=1.0. The reference r eileen was not used to int erpret this result as normal/abnormal . [facility] HBIFWML2030-16-51 14:35:00 Test Item Value Reference Range Interpretation Comments Antibody Scrn (test Negative (01/16/19 9:35 code = Antibody Scrn) AM) [facility] HTOSCWT5396-12-96 14:35:00 Test Item Value Reference Range Interpretation Comments ABO/Rh (test code = ABO/Rh) B POS [facility] HospitalZjtnpeiHDDWGIMWSX8018-13-97 14:35:00 Test Item Value Reference Range Interpretation Comments PT (test code = PT) 14.1 s 12.0-14.[address] [facility] HospitalVudtjwfFJCGLBWXIR6553-34-59 14:35:00 Test Item Value Reference Range Interpretation Comments INR (test code = INR) 1.11 1 0.85-1.[address] [facility] HospitalZwzdsojBIHROBFULL0454-07-86 14:35:00 Test Item Value Reference Range Interpretation Comments PTT (test code = PTT) 28.3 s 22.9-35.8 [facility] StationWin[facility]itch WMWFQZO9097-93-72 14:35:00 Test Item Value Reference Range Interpretation Comments Antibody Scrn (test Negative (01/16/19 9:35 code = Antibody Scrn) AM) [facility] [id number] 14:35:00 Test Item Value Reference Range Interpretation Comments ABO/Rh (test code = ABO/Rh) B POS [facility] HospitalQyokyahVULOZQVTDA4219-39-47 14:35:00 Test Item Value Reference Range Interpretation Comments PT (test code = PT) 14.1 s 12.0-14.[address] [facility] HospitalQuhwahvSINIVZDDTR5072-82-56 14:35:00 Test Item Value Reference Range Interpretation Comments INR (test code = INR) 1.11 1 0.85-1.[address] [facility] HospitalJbjmyujGCTWATANHU6194-74-08 14:35:00 Test Item Value Reference Range Interpretation Comments PTT (test code = PTT) 28.3 s 22.9-35.8 [facility] TROKSEW4432-31-51 14:35:00 Test Item Value Reference Range Interpretation Comments Antibody Scrn (test Negative (01/16/19 9:35 code = Antibody Scrn) AM) [facility] [id number] 14:35:00 Test Item Value Reference Range Interpretation Comments ABO/Rh (test code = ABO/Rh) B POS [facility] HospitalUroxqlgEHDGYBDBHW7680-70-60 14:35:00 Test Item Value Reference Range Interpretation Comments PT (test code = PT) 14.1 s 12.0-14.[address] [id number] 14:35:00 Test Item Value Reference Range Interpretation Comments INR (test code = INR) 1.11 1 0.85-1.[address] [facility] [id number] 14:35:00 Test Item Value Reference Range Interpretation Comments PTT (test code = PTT) 28.3 s 22.9-35.8 [facility] [id number] 14:35:00 Test Item Value Reference Range Interpretation Comments Antibody Scrn (test Negative (01/16/19 9:35 code = Antibody Scrn) AM) [facility] [id number] 14:35:00 Test Item Value Reference Range Interpretation Comments ABO/Rh (test code = ABO/Rh) B POS [facility] [id number] 14:35:00 Test Item Value Reference Range Interpretation Comments PT (test code = PT) 14.1 s 12.0-14.7 [id number] 14:35:00 Test Item Value Reference Range Interpretation Comments INR (test code = INR) 1.11 1 0.85-1.[address] [facility] [facility] [id number] 14:35:00 Test Item Value Reference Range Interpretation Comments PTT (test code = PTT) 28.3 s 22.9-35.8 [facility] Notes Date/Time Note Provider Source 2021-03-31 20:48:02-00:00 GIANNA BARNETT [facility] OPERATIVE/PROCEDURE REPORT ALMA ROSA CORRAL FACILITY: [facility] Billing #: [id number] Room: [address] [place] [address] MR #: [id number] : 1955 DATE OF PROCEDURE: 12/31/2020 SURGEON: Gianna Barnett MD APPLICATION PENETRATION TESTER: MADELINE Velazquez. PREOPERATIVE DIAGNOSIS: Progressive upper extrem ity weakness. POSTOPERATIVE DIAGNOSIS: posterior cervical teodoro jigar. PROCEDURES: Exploration of posterior cervical la minectomy and reconstruction with removal of hardware and bone graft, evacuation of epidural hematoma, redo posterior element reconstruction C3, C4, C5, C6 with machined allo graft dowel and titanium miniplates. ANESTHESIA: General endotracheal. ESTIMATED BLOOD LOSS: 20 mL. COMPLICATIONS: None. INDICATIONS FOR PROCEDURE: Ms. Corral is a lady, who had undergone previous posterior cervical laminectom y and reconstruction on 12/27/2020. She developed some progressive weakness in the upper extremity and it was felt that she would benefit from exploration and evacuation of proba ble hematoma. Risks, benefits, alternatives of surgery were ex plained to the patient. Informed consent was obtained. DESCRIPTION OF OPERATIVE PROCEDURE: The patient was taken to the operating room, where she was intubated on t he transport cart. She was placed in three-point fixation and flipped into a prone position in the OR table. The posterior cervical area was prepped and draped in standard sterile cara r. The patient was given intravenous antibiotics and Decadron. The previous incision was reopened and dissection carried jeane n through the fascia down to the posterior bony elements, and the instrumentation and bone graft from C3, C4, C5 a nd C6 levels. There was noted to be substantial epidural hemat homer. The titanium instrumentation was then removed by rem oval of screws and removal of bone graft. The posterior element s were then explored and there was noted to be substantial e pidural hematoma, which is causing spinal cord compressi on. This was carefully evacuated. There was minimal amount of epidural bleeding, which was cauterized. Complete hemosta sis was achieved and confirmed. Bleeding points were cau terized. The wound was irrigated. At this point, reconstructi on of posterior elements was then performed with machi jeannette allograft dowels and titanium plates using Synthes instrum entation at the C3, C4, C5, and C6 levels. Hemostasis was again confirmed. The fascia was closed and muscle approximated. P osterior elements were then closed and wound was closed with Vicryl suture. At the end of the case, sponge, instrument, needle counts were correct. RKB/MODL /[id number] 2021-02-07 21:45:55-00:00 SOO PARKINSON [facility] PROGRESS NOTE ALMA ROSA CORRAL FACILITY: [facility] Billing #: [id number] Room: [address] [place] [address] MR #: [id number] : 1955 PHYSICIAN: Soo Parkinson MD ADMISSION DATE: 02/06/2021 DATE: 02/07/2021 SUBJECTIVE: The patient is lying in the bed comf ortably, in no acute distress. MRI could not be done because of the patient's involuntary head movement. She remains unchanged from a neurocognitive standpoint. EEG shows moderate en cephalopathy. The patient is undergoing hemodialysis. OBJECTIVE: VITAL SIGNS: Blood pressure 111/55, p ulse 64, respirations 18, and temperature 98.8. NEUROLOGIC: Mental status: The patient is awake and alert, but orientation is questionable since she remain s mute. Comprehension is impaired. Cranial nerves examin ation: Pupils are equal, round, and reactive to light bilatera lly. Extraocular movements are intact, but the patien t does not track. Face appears symmetric. Motor examination : The patient has minimal spontaneous extremity moveme nts. Sensory examination: The patient is able to localize to pain on deep nail bed pressure. Coordination and gait testing : Deferred at this time. ASSESSMENT: Toxic metabolic encephalopathy with uremic myoclonic activity secondary to missing peritone al dialysis in the context of narcotic/opiate and gabapentin us e. CT scan of the head at an outside facility did not reveal a ny acute intracranial abnormalities. The patient did rece meet CTA of the head and neck with contrast at the outside facil ity, which might have worsened her kidney functions exacerb ating her clinical picture. She was unable to tolerate the MRI because of involuntary head movements. EEG shows moderat e encephalopathy. RECOMMENDATIONS: 1. MRI of the brain once the patient is clinical ly stable. 2. Continue hemodialysis. 3. Dialysis compliance encouraged. 4. We will continue following up. 5. Dr. Parkinson was personally present for the evalu ation and management of this patient. OM/MODL /[id number] Dictated By: Javier aMrx PA-C 2021-02-07 20:22:59-00:00 SOO PARKINSON [facility] OPERATIVE/PROCEDURE REPORT ALMA ROSA CORRAL FACILITY: [facility] Billing #: [id number] Room: [address] [place] [address] MR #: [id number] : 1955 DATE OF PROCEDURE: 02/06/2021 SURGEON: Soo Parkinson MD PROCEDURE PERFORMED: EEG. SUBJECTIVE: Ms. Corral is a 65-year-old female u ndergoing EEG to gauge for the extent of encephalopathy in the context of alteration in mental status. TECHNIQUE: This EEG was acquired by [facility] 10/20 electrode placement system. DESCRIPTION OF PROCEDURE: The predominant cerebr al activity is poorly-organized theta. Previous activity looks symmetrical bilaterally. This is intermixed with triphasic w ave all throughout the recording. No clear evidence of a ny focal slowing or epileptiform transient noticed. No el ectrographic seizures were recorded. Photic stimulation produ roxanne a poor driving response. INTERPRETATION: This is an abnormal EEG showing poorly-organized theta activity with no clear ev idence of any poorly-organized theta activity intermixed with triphasic waves. There is no evidence of any epileptiform discharges. CLINICAL CORRELATION: This is an abnormal EEG co nsistent with encephalopathy of moderate severity. Clinical co rrelation is advised. MFK/MODL /[id number] 2021-02-07 00:20:08-00:00 SOO PARKINSON [facility] CONSULTATION CORRAL ALMA ROSA FACILITY: [facility] Billing #: [id number] Room: [address] [place] [address] MR #: [id number] : 1955 DATE OF ADMISSION: 02/06/2021 DATE OF CONSULTATION: 02/06/2021 REQUESTING PHYSICIAN: Sarah Allen MD STEAMFITTER: Soo Parkinson MD REASON FOR CONSULTATION: Altered mental status. HISTORY OF PRESENT ILLNESS: This is a 65-year-ol d female patient, who was transferred from an outside [facility] secondary to worsening mental status and involuntary upper extremity movements. The patient's is by the celi carter, who I obtained all the history from. According to the , the patient was doing extremely well until Saturday ni gh/Saturday morning. Saturday evening, the patient was given gabapentin as well as oral pain medications because she is sta tus post cervical vertebral surgery. Following intake of the medications, the patient became lethargic, confu sed, and eventually developed upper extremity involuntary myoclonic activity. In the ER, the patient was given Narca n with minimal improvement. The also reports that the p atient has been missing her dialysis frequently. She is on peritoneal dialysis. The also states that the patie nt was given gabapentin by her neurologist. Neurology was con sulted for further evaluation. PAST MEDICAL HISTORY: Atrial fibrillation on Lotus dirk, colon cancer, end-stage renal disease on peritoneal di alysis, hypertension, and CVA with right-sided hemipares is. PAST SURGICAL HISTORY: Allograft for spine surge ry - cervical posterior laminectomy and reconstruction, colon surgery, AV fistula creation, hysterectomy, thyroidectomy, c ervical spinal cord decompression. ALLERGIES: NKDA. SOCIAL HISTORY: No reports of alcohol, tobacco, or illicit drug use. FAMILY HISTORY: None on a file. MEDICATIONS: Reviewed. REVIEW OF SYSTEMS: Limited since the patient is stuporous. PHYSICAL EXAMINATION: VITAL SIGNS: Blood pressure 148/68, pulse 74, re spirations 18, and temperature 97.2. NEUROLOGIC: Mental status: The patient is stupor ous. Does not follow any commands. Remains mute. Comprehen jessica is impaired. Cranial nerve examination: Pupils are equal, round, and reactive to light bilaterally. Extraocular m ovements cannot be assessed. Face appears symmetric. Valentino r examination: The patient has minimal spontaneous extremity movements. Sensory examination: The patient is a ble to localize to pain on deep nail bed pressure. Coor dination and gait testing: Deferred at this time. LABORATORY DATA AND IMAGING DATA: Have been revi ewed. ASSESSMENT: Toxic metabolic encephalopathy with uremic myoclonic activity secondary to missing peritone al dialysis in the context of narcotic/opiate and gabapentin us e. CT scan at the outside facility did not reveal any acute in tracranial abnormalities. RECOMMENDATIONS: 1. MRI of the brain to rule out secondary etiolo gies. 2. EEG to gauge the extent of encephalopathy. 3. Agree with hemodialysis. 4. Dialysis compliance encouraged. 5. We will follow up along the primary care team with the testing results. 6. This case was discussed with Dr. Parkinson, who is in agreement with the plan of care. MFK/MODL /[id number] 2021-01-08 03:07:00-00:00 [facility] ([facility] EMERGENCY PROVIDER REPORT REPORT#:[id number] REPORT STATUS: Signed DATE:01/08/21 TIME:0307 PATIENT: ALMA ROSA CORRAL UNIT #: [id number] ROOM/BED: : 54 AGE: 65 SEX: F PCP PHYS: Naima Uribe MD SERVICE AUTHOR: Zeus Prado DO * ALL edits or amendments must be made on the el ectronic/computer document * HPI-General Illness Free Text HPI Notes Free Text HPI Notes 65 yo female with PMH of ESR D on PD, HTN, CVA, recent Cervical spine surgery 10 days ago, s/p epidural hematoma, revisio n and nikki drain 7 days ago presents for evaluation of ruptured viscous after free air wa s seen on CT chest. Pt denies abd pain, n/v, fever. General Initial Greet Date/Time 01/08/21 0142 Presentation Chief Complaint __ (came for eval of ruptured vi sc) Hx Obtained From Patient Review of Systems ROS Statements All systems rev neg except as marked. Past Medical History - Adult Stated Complaint RUPTURED VISCUS Allergies Coded Allergies: No Known Allergies (01/08/21) Home Medications Reported Medications ALBUTEROL (ALBUTEROL 2.5 MG/3 ML (75mL)) 2.5 MG NEB RTQ4H PRN PRN WHEEZING ALLOPURINOL (ZYLOPRIM) 100 MG PO DAILY APIXABAN (ELIQUIS) 2.5 MG PO BID ATORVASTATIN (LIPITOR) 40 MG PO DAILY BUDESONIDE (PULMICORT) 0.25 MG INH RTBID CARVEDILOL (COREG) 12.5 MG PO BID CHOLECALCIFEROL (VITAMIN D3) (VITAMIN D3) 1,000 UNITS PO DAILY CYANOCOBALAMIN (VITAMIN B-12) 2,500 MCG SL DAILY DOCUSATE SODIUM (COLACE) 100 MG PO DAILY hydrALAZINE (APRESOLINE) 25 MG PO BID LEVOTHYROXINE (SYNTHROID) 50 MCG PO DAILY LIOTHYRONINE (CYTOMEL) 5 MCG PO DAILY LISINOPRIL (ZESTRIL) 20 MG PO DAILY VITAMIN B COMPLEX/VIT C (NEPHRO-FLASH) 1 TAB PO D AILY PANTOPRAZOLE (PROTONIX IV) 40 MG IV DAILY POLYETHYLENE GLYCOL 3350 (MIRALAX) 17 GM PO ASDI R SPIRONOLACTONE (ALDACTONE) 50 MG PO DAILY ACETAMINOPHEN (TYLENOL) 325 MG PO Q4H PRN PRN PA IN HYDROcodone/APAP (NORCO 10/325) 1 TAB PO Q4H PRN PRN PAIN BISACODYL (DULCOLAX) 10 MG RECTAL DAILY PRN PRN CONSTIPATION hydrOXYzine HCL (ATARAX) 10 MG PO QID PRN PRN AN XIETY CODEINE/guaiFENesin (M-CLEAR WC 6.3-100 MG/5ML) 15 ML PO Q4H PRN PRN COUGH cloNIDine (CATAPRES) 0.1 MG PO Q6H PRN PRN HTN MELATONIN 3 MG PO BEDTIME PRN PRN SLEEP SIMETHICONE (GAS-X) 80 MG PO QID PRN PRN GAS Calculated Suicide Risk (nurs) No risk Smoking status: Smoking status for patients 13 years old or old er: Never Smoker Physical Exam Vital Signs Vital Signs First Documented: Result Date Time Pulse Ox 99 01/08 0144 B/P 151/66 01/08 0144 B/P Mean 94 01/08 0144 O2 Delivery Room air 01/09 144 Temp 36.7 01/08 0144 Pulse 57 01/08 0144 Resp 17 01/08 0144 Last Documented: Result Date Time Pulse Ox 99 01/08 0144 B/P 151/66 01/08 0144 B/P Mean 94 01/08 0144 O2 Delivery Room air 01/08 014 Temp 36.7 01/08 0144 Pulse 57 01/08 0144 Resp 17 01/08 0144 Review of Vital Signs Reviewed Free Text PE Notes Free Text PE Notes General/Const - Awake, alert, no acute distress, well nourished. MS Head - Atraumatic, normocephalic. Eyes - No redness or swelling. EOMI. No vision d eficits. Ears/Nose/Throat - Airway patent, moist mucous m embranes. MS Neck - Supple, Full ROM, no tenderness, no JV D, no adenopathy. Resp/Chest - Breath sounds NL and equal bilat. N o respiratory distress. Cardiovascular - Heart rate NL, Regular rhythm, Heart sounds NL, Peripheral circulation NL. Abdomen - Abdomen is soft, nontender, nondistend ed. Peritoneal catheter site is well-appearing without any redness swelling o r drainage. No guarding or rebound. Active bowel sounds. Extremities - No cyanosis, clubbing, or edema. Skin - Skin Color NL, No rash, Warm, Dry, Intact . Neurologic - Neurologic Oriented X3, Speech NL, No motor deficits, No sensory deficits. CN II-XII NL. Reflexes NL. No ataxia. Interpretation Diagnostics Lab Results Interpretation Results Recent Impressions: CAT SCAN - CT ABD PELVIS W/O CONT 01/085 Report Impression - Status: SIGNED Entered: 01/08/2021226 IMPRESSION: 1. Minimal free air beneath the right hemidiaphr agm along the anterior abdomen is likely from patient's perito kirit dialysis catheter. No definite suggestion of a perforated viscus. 2. Mild free fluid in the pelvis may be also rel ated to the PD catheter. 3. Atrophic kidneys bilaterally with a 6.3 cm ma ss off the inferior pole right kidney suspicious for neoplasm. 4. Mild to moderate right effusion with atelecta sis. Impression By: Joe Mccoy M.D. Re-Evaluation MDM Re-Evaluation/Progress #1 Text/Dict Note CT abdomen pelvis negative for any eladio rning for viscus perforation. Free air is likely due to peritoneal dialysis catheter Time of Re-Eval 0309 Re-Eval Status Unchanged Patient Discharge Departure Vital Signs/Condition Vital Signs First Documented: Result Date Time Pulse Ox 99 07/18 0144 B/P 151/66 07/18 0144 B/P Mean 94 07/18 0144 O2 Delivery Room air 07/18 0144 Temp 36.7 07/18 0144 Pulse 57 07/18 0144 Resp 17 07/18 0144 Last Documented: Result Date Time Pulse Ox 99 07/18 0144 B/P 151/66 07/18 0144 B/P Mean 94 07/18 0144 O2 Delivery Room air 07/18 0144 Temp 36.7 07/18 0144 Pulse 57 07/18 0144 Resp 17 07/18 0144 All vital signs available at the time of this en try have been reviewed. Clinical Impression Clinical Impression Primary Impression: Free intraperitoneal air Secondary Impressions: Perit cobian dialysis catheter in place, Renal mass, right Disposition Decision Discharge )( Discharged to Home Yes )( Time 0311 )( Date 01/08/21 Discharge/Care Plan Counseled Regarding Diagnosis, Imaging studies, Need for follow-up, When to return to ED Additional Instructions CT scan did not show evidence of perforated visc ous. It did show an abnormal mass in the inferior pastor e of the right kidney. You need to see a urologist for further managem ent and evaluation. Referrals Suraj Lloyd MD: 2-3 Days Discharge Note I have spoken with the patie nt and/or caregivers. I have explained the patient's condition, diagnoses and andrade atment plan based on the information available to me at this time. I have answered the patient's and/ or caregiver's questions and addressed any concerns. The patient and/or careg rdew have as good an understanding of the patient 's diagnosis, condition and treatment plan as can be expected at this point. The vital signs have bee n stable. The patient's condition is stable and appr opriate for discharge from the emergency department. The patient will pursue further outpatient evalu ation with the primary care physician or other designated or consulting phys ician as outlined in the discharge instructions. The patient and/or caregivers are agreeable to this plan of care and follow-up instructions have been exp lained in detail. The patient and/or caregivers have received these instructio ns in written format and have expressed an understanding of the discharge inst ructions. The patient and/or caregivers are aware that any significant change in condition or worsening of symptoms should prompt an immediate return to [facility] or the closest emergency department or a call to 911. Electronically Signed by Zeus Prado DO on 12/22 02/11 at 0314 RPT #: [id number] END OF REPORT 2020-12-28 08:58:49-00:00 YAKOV ARCOS C CONSULTATION ALMA ROSA CORRAL FACILITY: [facility] Billing #: [id number] Room: [address] [place] [address] MR #: [id number] : 1955 DATE OF ADMISSION: 12/27/2020 DATE OF CONSULTATION: 12/28/2020 REQUESTING PHYSICIAN: STEAMFITTER: Yakov Arcos MD Nephrology Consultation REASON FOR CONSULTATION: ESRD, on dialysis. HISTORY OF PRESENT ILLNESS: Ms. Alma Rosa Corral is a 65-year-old female with past medical history significant for ESRD on peritoneal dialysis, hypertension, stroke with r ight-sided hemiparesis, admitted for evaluation for surgery for cervical stenosis with cord compression, underwent cervic al laminectomy of the C3, C4, C5, C6 with posterior instrumenta tion and arthrodesis of C3 through C6 with reconstruction . The patient is doing okay postoperatively and we are being c onsulted for peritoneal dialysis. The patient had dialysis la st night and because of fibrinous nature of her dialysate, we have been using some heparin to improve her fibrinous exud ate from peritoneal dialysis. The patient is complaining of some constipation, but otherwise doing okay. PAST MEDICAL HISTORY: Significant for history of hypertension, ESRD on dialysis, CVA with right-sided weakness, history of colon surgery, AV fistula creation, hysterectomy , peritoneal dialysis catheter placement, and thyroidectomy. ALLERGIES: AMLODIPINE. SOCIAL HISTORY: The patient is , lives wi th her . No history of smoking or alcohol use re ported. FAMILY HISTORY: Noncontributory at this time. PHYSICAL EXAMINATION: VITAL SIGNS: Showing temperature of 97, pulse ra te of 77, respiratory rate of 16, and blood pressure of 19 7/86. GENERAL: She appears in no acute distress. HEENT: She has atraumatic head. LUNGS: Clear to auscultation. ABDOMEN: Soft, nontender. EXTREMITIES: No evidence of edema. NEUROLOGIC: The patient had right-sided weakness on the right arm and leg. LABORATORY DATA: At this time are showing WBC co unt of 16,000, hemoglobin 11, hematocrit 35.5, and platelet cou nt of 166. BMP results are showing sodium of 145, potassium 3.4 , chloride 108, BUN of 38, and creatinine of 5.1. LFTs are withi n normal limits. CURRENT MEDICATIONS: Have been reviewed in ankit auguste. IMPRESSION: 1. End-stage renal disease, on dialysis. 2. Anemia secondary to end-stage renal disease. 3. Cervical cord compression, status post ijeoma ctomy and fusion. 4. Hypothyroidism, on levothyroxine and Cytomel as well. 5. Hypertension, stable. 6. Right-sided weakness. We will need physical t herapy to improve her strength and agility. PLAN: The patient is overall doing okay at this time. We will plan continue with peritoneal dialysis tonight u sing 1.5% dextrose solution as the patient does not seem t o be having any volume overload issues at this time. Her anemia levels are stable. She is on docusate for constipation, whi ch we will continue and continue with her antihypertensive medications and monitor her closely. Plan was discussed with the patient's at bedtime. We will be using heparin in the dialysate to improve her fibrinous exudate. VV/MODL /[id number] 2020-12-27 16:24:09-00:00 GIANNA BARNETT [facility] OPERATIVE/PROCEDURE REPORT ALMA ROSA CORRAL FACILITY: [facility] Billing #: [id number] Room: [address] [place] [address] MR #: [id number] : 1955 DATE OF PROCEDURE: 12/27/2020 SURGEON: Gianna Barnett MD APPLICATION PENETRATION TESTER: MADELINE Velazquez. PREOPERATIVE DIAGNOSIS: Cervical stenosis with s evere cord compression. POSTOPERATIVE DIAGNOSIS: Cervical stenosis with severe cord compression. PROCEDURE: Cervical laminectomy C3, C4, C5, C6, posterior instrumentation using Synthes titanium miniplate s and machined allograft dowels with arthrodesis C3-C6 with rec onstruction. ANESTHESIA: General endotracheal. ESTIMATED BLOOD LOSS: 200 mL. FINDINGS: Severe stenosis, successful decompress ion and reconstruction achieved. COMPLICATIONS: None. INDICATIONS FOR PROCEDURE: Ms. Corral is a 65-ye ar-old female with severe cervical myelopathy, cord compressio n and signal change. She also has history of previous left he mispheric infarct. Given her clear myelopathy and progress meet neurologic deterioration, it was felt she would benefit fro surgical intervention, decompression and reconstruction. Risks, benefits, alternatives of surgery were explained to the patient. Informed consent was obtained. DESCRIPTION OF OPERATIVE PROCEDURE: The patient was taken to the operating room, where she was intubated on he transport cart. She was placed in three-point head fixatio n on [place] and flipped into a prone position on the OR [facility] e. The posterior cervical area was prepped and draped i n standard sterile manner. After infiltration of local anes thetic and administration of intravenous antibiotics and De cadron, a midline incision was made from the bottom of the C2 to the top of the C7 posterior spinous processes. The ligam entum flavum was then opened and resected between C2 and C3 l evels. It was then opened and resected from C6 to C7 levels. T spinous processes have been resected with angled bone cu tter and Leksell rongeur. Partial thickness cut of the la katlyn facet junction was made on the left side at the C3, C4 , C5, and C6 levels. Full-thickness cut was made on the right . Posterior elements were then lifted off the spinal cord an d dural tube for laminectomy. Complete neural decompression w as achieved and confirmed. Hemostasis was achieved and confi rmed, and bleeding points were cauterized. Machined allogr aft dowels were then utilized for posterior element reconst ruction in C3, C4, C5, C6. Titanium miniplates were applied. Bl eeding points were cauterized and hemostasis was confirmed. Th e wound was closed with Vicryl suture. Skilled surgical assi stant was required during the operation to assist with hem ostasis, irrigation, retraction and instrumentation. With out this assistance, risk of the patient would have been higher. Neuro monitoring was stable. At the end of the case, s ponge, instrument, needle counts were correct. GALINA/CHINTAN /[id number]
--- NOTE | 2022-11-16 11:39 | RAD REPORT ---
EXAM DESCRIPTION: CT - Head Brain Wo Cont - 11/16/2022 11:31 am CLINICAL HISTORY: Head injury status post fall COMPARISON: 2020 TECHNIQUE: Computed axial tomography of the head was obtained. IV contrast was not requested. All CT scans are performed using dose optimization technique as appropriate and may include automated exposure control or mA/KV adjustment according to patient size. FINDINGS: A large left frontal scalp hematoma present. An intracranial bleed is not seen The ventricles are normal in caliber No extra-axial fluid collection is noted. Old basal ganglia infarcts Moderate low-density areas within periventricular, deep and subcortical white matter likely represent ischemic changes secondary to small vessel disease. Fluid within the sinuses/ mastoids is not seen. IMPRESSION: No acute intracranial abnormality is seen If patient's symptoms persist MRI of the brain would be recommended
--- NOTE | 2022-11-16 11:54 | EDPHYS ---
Physician Documentation [facility] Name: Alma Rosa Corral Age: 67 yrs Sex: Female : 1955 Arrival Date: 11/16/2022 Time: 10:50 Bed DX3 Private MD: ED Physician Gallito Prado HPI: 11/16 11:07 This 67 yrs old Black Female presents to ER via Unassigned with complaints of Fall rn Injury, Head Injury-Adult. 11:07 Details of fall: The patient fell from seated position, out of a wheelchair. Onset: The rn symptoms/episode began/occurred today. Associated injuries: The patient sustained injury to the head, hematoma, swelling. Severity of symptoms: At their worst the symptoms were mild, in the emergency department the symptoms are unchanged. The patient has experienced similar episodes in the past. The patient has been recently seen by a physician:. Pt presents with fall, was trying to get up from wheelchair, is always in wheelchair since stroke and spinal surgery 2 years ago. Had fall 2 weeks ago with head injury and left elbow injury, left elbow got infected recently, pcp put on abx, and is improving. Brought in today for another fall and head injury, same location. Otherwise acting normal. No LOC. Takes eliquis. No extremity or other injury.. 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 - Social history:: Smoking status: Patient denies any tobacco usage or history of. - Family history:: not pertinent. - Hospitalizations: : No recent hospitalization is reported. ROS: 11:07 Constitutional: Negative for fever, chills, and weight loss, Eyes: Negative for injury, rn pain, redness, and discharge, Neck: Negative for injury, pain, and swelling, Cardiovascular: Negative for chest pain, palpitations, and edema, Respiratory: Negative for shortness of breath, cough, wheezing, and pleuritic chest pain, MS/Extremity: Negative for injury and deformity, Skin: Negative for injury, rash, and discoloration, Neuro: Negative for headache, weakness, numbness, tingling, and seizure. Exam: 11:07 Constitutional: This is a well developed, well nourished patient who is awake, alert, rn and in no acute distress. Head/Face: Normocephalic, 2-3 cm hematoma left upper forehead. No laceration or open wound. Eyes: Pupils equal round and reactive to light, extra-ocular motions intact. Neck: No midline cervical tenderness Neuro: Awake and alert, GCS 15 Vital Signs: 11:12 BP 135 / 71; Pulse 66; Resp 16; Temp 98; Pulse Ox 100% ; bp MDM: 10:55 Patient medically screened. rn 11:52 Differential diagnosis: abrasion, closed head injury, contusion, fracture, sprain, rn strain. Data reviewed: vital signs, nurses notes, radiologic studies, CT scan, and as a result, I will discharge patient. Counseling: I had a detailed discussion with the patient and/or guardian regarding: the historical points, exam findings, and any diagnostic results supporting the discharge/admit diagnosis, radiology results, the need for outpatient follow up, to return to the emergency department if symptoms worsen or persist or if there are any questions or concerns that arise at home. Response to treatment: the patient's symptoms have mildly improved after treatment, and as a result, I will discharge patient. Special discussion: Based on the patient's history, exam and DX evaluation, there is no indication for emergent intervention or inpatient TX. It is understood by the patient/guardian that if the SXs persist or worsen they need to return immediately for re-evaluation. I discussed with the patient/guardian in detail that at this point there is no indication for admission to the hospital. It is understood, however, that if the symptoms persist or worsen the patient needs to return immediately for re-evaluation. 11/16 11:05 Order name: CT Head Brain wo Cont; Complete Time: 11:52 rn 11/16 11:07 Order name: Ice pack; Complete Time: 11:12 rn Administered Medications: No medications were administered Disposition Summary: 11/16/22 11:53 Discharge Ordered Location: Home rn Problem: new rn Symptoms: have improved rn Condition: Stable rn Diagnosis - Unspecified injury of head, initial encounter rn Followup: rn - With: Private Physician - When: As needed - Reason: Recheck today's complaints, Re-evaluation by your physician Discharge Instructions: - Discharge Summary Sheet rn - Head Injury, Adult rn - Hematoma rn Forms: - Medication Reconciliation Form rn - Thank You Letter rn - 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
--- NOTE | 2022-11-16 11:54 | ER ---
Nurse's Notes [facility] Name: Alma Rosa Corral Age: 67 yrs Sex: Female : 1955 Arrival Date: 11/16/2022 Time: 10:50 Bed DX3 Private MD: Diagnosis: Unspecified injury of head, initial encounter Presentation: 11/16 11:12 Chief complaint: EMS states: FALL THIS AM WITH LEFT BROW HEMATOMA, NO LOC. Coronavirus bp screen: At this time, the client does not indicate any symptoms associated with coronavirus-19. Ebola Screen: No symptoms or risks identified at this time. Initial Sepsis Screen: Does the patient meet any 2 criteria? No. Patient's initial sepsis screen is negative. Does the patient have a suspected source of infection? No. Patient's initial sepsis screen is negative. Risk Assessment: Do you want to hurt yourself or someone else? Patient reports no desire to harm self or others. Onset of symptoms was November 16, 2022. 11:12 Method Of Arrival: Wheelchair bp 11:12 Acuity: LILIBETH 3 bp Triage Assessment: 11:13 General: Appears in no apparent distress. Behavior is calm, cooperative, appropriate bp for age. Pain: Complains of pain in head. EENT: No deficits noted. Neuro: No deficits noted. Cardiovascular: No deficits noted. Respiratory: No deficits noted. GI: No signs and/or symptoms were reported involving the gastrointestinal system. : No signs and/or symptoms were reported regarding the genitourinary system. Derm: No deficits noted. Musculoskeletal: No deficits noted. 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 - Social history:: Smoking status: Patient denies any tobacco usage or history of. - Family history:: not pertinent. - Hospitalizations: : No recent hospitalization is reported. Screenin:18 [facility] ED Fall Risk Assessment (Adult) History of falling in the last 3 months, bp including since admission No falls in past 3 months (0 pts). Abuse screen: Denies threats or abuse. Denies injuries from another. Nutritional screening: No deficits noted. Tuberculosis screening: No symptoms or risk factors identified. Assessment: 11:18 General: SEE TRIAGE NOTE. bp Vital Signs: 11:12 BP 135 / 71; Pulse 66; Resp 16; Temp 98; Pulse Ox 100% ; bp ED Course: 10:53 Patient arrived in ED. ts1 10:55 Gallito Prado MD is Attending Physician. rn 11:12 Felice Wallace, RN is Primary Nurse. bp 11:13 Triage completed. bp 11:13 Arm band placed on. bp 11:18 Patient has correct armband on for positive identification. Bed in low position. Call bp light in reach. Side rails up X2. 11:33 CT Head Brain wo Cont In Process Unspecified. EDMS 12:08 No provider procedures requiring assistance completed. Patient did not have IV access mbCarolyn during this emergency room visit. Administered Medications: No medications were administered Medication: 11:18 VIS not applicable for this client. bp Outcome: 11:53 Discharge ordered by . rn 12:08 Discharged to home via wheelchair. mb9 12:08 Condition: stable 12:08 Discharge instructions given to patient, Instructed on discharge instructions, follow up and referral plans. Demonstrated understanding of instructions, follow-up care. 12:08 Patient left the ED. dell Signatures: Dispatcher [employer] EDMS Gallito Prado MD MD rn Peltier, Brian, RN RN Quita Ledesma RN RN Kirstin Cazares PAS PAS ts1 Corrections: (The following items were deleted from the chart) 11:17 11:13 PMHx: PERITONEAL DIALYSIS; bp bp
[2022-11-16 12:25] VITALS: BP 135/71; TEMP 98; O2SAT 100
== END 2022-11-16 12:08 | disposition home or self-care (01) ==
LOC: ER 10:50
DX: S00.83XA Contusion of other part of head, initial encounter (principal); I10 Essential (primary) hypertension; Z86.73 Personal history of transient ischemic attack (TIA), and cerebral infarction without residual deficits; Z99.2 Dependence on renal dialysis; Z88.8 Allergy status to other drugs, medicaments and biological substances
CPT/HCPCS: 70450; 99283

== ENCOUNTER 2023-02-13 20:20 | Emergency (ER) | payer OTHER ==
--- OUTSIDE RECORDS SUMMARY | 2023-02-13 20:39 | XMS REPORT | Continuity of Care Document ---
:1955 Author Organization [facility] t Address [address] [facility] [place]. [address] [place] [address] Care Team Providers Name Role Phone Carolina Ku MD Primary Care Physician NAIMA KU Attending Clinician Unavailable [id number] Attending Clinician Unavailable YORDAN JULIO NATASHA Attending Clinician Unavailable GIANNA BARNETT Attending Clinician Unavailable SARAH ALLEN Attending Clinician Unavailable VINNY ESQUIVEL Attending Clinician Unavailable Paul Zheng Attending Clinician KATELYN MONTOYA Attending Clinician Unavailable Katelyn Lozano Attending Clinician YORDAN JULIO Attending Clinician Unavailable Gianna Barnett MD Attending Clinician Zeus Prado Attending Clinician Unavailable Zeny Zhang Attending Clinician Unavailable YORDAN JULIO Attending Clinician Unavailable Gianna Barnett MD Attending Clinician Sarah Allen MD Attending Clinician Milton Figueredo MD Attending Clinician Alice SAUMYAHerminionaheed Attending Clinician [phone] Doctor Unassigned, [place] Attending Clinician Unavailable BLAINE LUKE Attending Clinician Unavailable Blaine Luke Attending Clinician MARIAM REYNOLDS Attending Clinician Unavailable Mariam Reynolds Attending Clinician CAROLINA AGUERO Attending Clinician Unavailable [id number] Admitting Clinician Unavailable YORDAN JULIO NATASHA Admitting Clinician Unavailable GIANNA BARNETT Admitting Clinician Unavailable SARAH ALLEN Admitting Clinician Unavailable KATELYN MONTOYA Admitting Clinician Unavailable YAKOV ARCOS Admitting Clinician Unavailable Physician, No Primary or Family Admitting Clinician Unavaila HASMUKH Real Admitting Clinician Unavailable Hasmukh Oakes Jr Admitting Clinician Blaine Luke Admitting Clinician CAROLINA AGUERO Admitting Clinician Unavailable Payers Payer Name Policy Type Policy Number Effective Date Expiration Date S kelsea [facility] [id number] MEDICARE A B [id number] 2019 00:00:00 [facility] [id number] 2019 SUPPLEMENTAL 00:00:00 MEDICARE PART A \\T\\ [id number] 2019 B 00:00:00 [place] [id number] 2019 00:00:00 Problems Condition Condition Condition Status [...] 07:37:00 l 05/17/2020 00:00: Keenan colin 00 [facility] CATHETER CATHETER Diagnosis Active 2019-062020-05-26 Memoria DIALYSIS DIALYSIS 07-17 08:06:00 l PERITONEAL PERITONEAL 00:00: He rmann Active 00 05/17/2020 [facility] ARM PAIN ARM PAIN Diagnosis Active 2019-062020-04-13 Memoria Active 0 21:44:00 l 04/05/2020 00:00: Keenan colin 00 [facility] DR SENT DR SENT Diagnosis Active 2019-062020-04-05 Memoria Active 0 21:18:00 l 04/05/2020 00:00: Keenan colin 00 [facility] NEW NEW Diagnosis Active 2020-07-08 Mem oria EVALUATION EVALUATION 2-10 14:24:00 l Active 00:00: Talon 08/03/2019 00 [facility] N18.6 N18.6 Diagnosis Active 2019-03-10 Mem oria Active 03-09 10:07:00 l 03/09/2019 00:00: Keenan colin 00 [facility] CKD CKD Diagnosis Active 2019-01-19 Mem oria Active 01-15 11:41:00 l 01/15/2019 00:00: Keenan colin 00 [facility] Anemia Anemia Disease Active 2019- [facility] 7-06 ity of 00:00: [place] 00 [facility] Pulmonary Pulmonary Disease Active 2019 Uni vers hypertensi hypertensi 7-06 it y of on on 00:00: [place] 00 [facility] Pneumonia Pneumonia Disease Active 2019- Uni vers 7-06 ity of 00:00: [place] 00 [facility] Troponin I Troponin I Disease Active 2019- U nivers above above 7-06 ity of reference reference 00:00: Bud benjamin range range 00 Medical Branch Acute on Acute on Disease Active 2019- Unive rs chronic chronic 7-06 ity of diastolic diastolic 00:00: Bud benjamin congestive congestive 00 Me dical heart heart Branch failure failure ESRD (end ESRD (end Disease Active 2019- Uni vers stage stage 7-06 ity of renal renal 00:00: [place] disease) disease) 00 Medica l Branch Hypoxia Hypoxia Disease Active 2019- [facility] 7-02 ity of 00:00: [place] 00 [facility] 620.2 - 620.2 - Diagnosis Active 2011-062012-06-08 Memoria OVARIAN OVARIAN 0-16 15:31:00 l CYST NE CYST NE 00:01: Talon Active 00 04/08/2012 DAMIAN Hanley FOLLOW UP FOLLOW UP Diagnosis Active 2012-05-19 Memoria Active 03-12 10:19:00 l 03/12/2012 00:00: Keenan n [address] CANCER OF CANCER OF Diagnosis Active 2012-01-17 Memoria RECTAL RECTAL 01-09 09:50:00 l AMPULLA AMPULLA 00:00: Talon Active 00 01/10/2012 [facility] COLON COLON Diagnosis Active 2012-02-15 [facility] CANCER CANCER 12-26 13:01:00 l Active 00:00: [place] 12/27/2011 00 [facility] Pain in Pain in Problem 2020-04-11 [facility] arm, arm, 07:26:40 l unspecifie unspecifie He rmann d d 04/11/2020 [facility] Cerebrovas Cerebrova Problem Resolve 2021-08-04 Memoria cular scular d 03:20:12 l accident accident Keenan n (disorder) (disorder) Resolved Problem 08/04/2021 [facility] Kidney Kidney Problem Resolve 2021-08-04 Mem oria disease disease d 03:20:12 l (disorder) (disorder) He rmann Resolved Problem 08/04/2021 [facility] CA - CA - Problem Active 2012-11-08 Memor ia Cancer of Cancer of 21:08:25 l colon colon [place] Active Problem 11/08/2012 [facility] DAMIAN Hanley, DAMIAN Baez Cholestero Cholester Problem Active 2012-11-08 Memoria l ol Active 21:08:25 l Problem [place] 11/08/2012 [facility], DAMIAN Hanley, DAMIAN Baez H/O: H/O: Problem Active 2012-11-08 Memor ia stroke stroke 21:08:25 l Active Talon Problem 11/08/2012 [facility] DAMIAN Hanley, DAMIAN Baez HT - HT - Problem Active 2012-11-08 Memor ia Hypertensi Hypertensi 21:08:25 l on on Active Talon Problem 11/08/2012 [facility], DAMIAN Hanley, DAMIAN [place] PAIN IN PAIN IN Diagnosis Active 2020-04-13 Memoria ARM, ARM, 21:44:00 l UNSPECIFIE UNSPECIFIE He rmann D D Active [facility] Malignant Malignant Problem Active 2023-02-11 Memoria tumor of tumor of 11:22:28 l colon colon [place]on (disorder) (disorder) Active Problem 02/11/2023 [facility] Cervical Cervical Problem Active 2023-02-11 Memoria myelopathy myelopathy 11:22:28 l (disorder) (disorder) He ann Active Problem 02/11/2023 [facility] 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 11:22:28 l peritoneal peritoneal He rmann dialysis dialysis due to end due to end stage stage renal renal disease disease (finding) (finding) Active Problem 02/11/2023 [facility] History of History Problem Active 2023-02-11 Memoria - CVA of - CVA 11:22:28 l (context-d (context-d [facility] ependent ependent category) category) Active Problem 02/11/2023 [facility] Hypertensi Hypertens Problem Active 2023-02-11 Memoria ve meet 11:22:28 l disorder, disorder, Herm vin systemic systemic arterial arterial (disorder) (disorder) Active Problem 02/11/2023 [facility] Hyperlipid Hyperlipi Problem Active 2023-02-11 Memoria emia demia 11:22:28 l (disorder) (disorder) He ann Active Problem 02/11/2023 [facility] Hypothyroi Problem Active 2023-02-11 M emoria dism Hypothyroi 11:22:28 l (disorder) dism Keenan n (disorder) Active Problem 02/11/2023 [facility] Myoclonus Myoclonus Problem Active 2023-02-11 Memoria (finding) (finding) 11:22:28 l Active Talon Problem 02/11/2023 [facility] Spinal Spinal Problem Active 2023-02-11 [facility] cord cord 11:22:28 l disorder disorder Keenan n (disorder) (disorder) Active Problem 02/11/2023 [facility] Syncope Syncope Problem Active 2023-02-11 Me moria (disorder) (disorder) 11:22:28 l Active Talon Problem 02/11/2023 [facility] Amnesia Amnesia Problem Active 2023-02-11 M emoria (finding) (finding) 11:22:28 l Active Talon Problem 02/11/2023 [facility] Allergies, Adverse Reactions, Alerts Allergy Allergy Status Severity Reaction(s) Onset Inactive Treating Comm ents Source Name Type Date Date Clinician Mesna - Propensi Active Intraven ty to 6 ous adverse 00:00: reaction 00 to drug amLODIPi Propensi Active ne ty to 11-22 Benzoate adverse 00:00: - Oral reaction 00 to drug AMLODIPI Allergy Active ENCGEN N 8 14:55: 48 AMLODIPI Allergy Active ENCGEN N 8 14:55: 48 AMLODIPI Allergy Active ENCGEN N 8 14:55: 48 AMLODIPI Allergy Active ENCGEN N 8 14:55: 48 AMLODIPI Allergy Active ENCGEN N 8 14:55: 48 AMLODIPI Allergy Active ENCGEN N 8 14:55: 48 AMLODIPI Allergy Active ENCGEN N 8 14:55: 48 AMLODIPI Allergy Active ENCGEN N 8 14:55: 48 AMLODIPI Allergy Active ENCGEN N 8 14:55: 48 AMLODIPI Allergy Active ENCGEN N 8 14:55: 48 AMLODIPI Allergy Active ENCGEN N 8 14:55: 48 AMLODIPI Allergy Active ENCGEN N 8 14:55: 48 AMLODIPI Allergy Active ENCGEN N 8 14:55: 48 AMLODIPI Allergy Active ENCGEN N 8 14:55: 48 AMLODIPI Allergy Active ENCGEN N 8 14:55: 48 AMLODIPI Allergy Active ENCGEN N 8 14:55: 48 NSAIDS Allergy Active ENCGEN 8 14:55: 41 NSAIDS Allergy Active ENCGEN 8 14:55: 41 NSAIDS Allergy Active ENCGEN 8 14:55: 41 NSAIDS Allergy Active ENCGEN 8 14:55: 41 NSAIDS Allergy Active ENCGEN 8 14:55: 41 NSAIDS Allergy Active ENCGEN 8 14:55: 41 NSAIDS Allergy Active ENCGEN 01-26 14:55: 41 NSAIDS Allergy Active ENCGEN 01-26 14:55: 41 NSAIDS Allergy Active ENCGEN 8 14:55: 41 NSAIDS Allergy Active ENCGEN 01-26 14:55: 41 NSAIDS Allergy Active ENCGEN 01-26 14:55: 41 NSAIDS Allergy Active ENCGEN 01-26 14:55: 41 NSAIDS Allergy Active ENCGEN 01-26 14:55: 41 NSAIDS Allergy Active ENCGEN 01-26 14:55: 41 NSAIDS Allergy Active ENCGEN 01-26 14:55: 41 NSAIDS Allergy Active ENCGEN 8 14:55: 41 No Known DA Active [facility] [facility] No Known DA Active [facility] [place] [facility] NSAIDS [facility]ergy [facility] ANTI-INF 00 Center LAMMATOR Y DRUG) Nsaids Drug Active [facility] [facility] roidal 00:[facility]: Medical Anti-Inf 00 Center lammator y Drug) AMLODIPI Allergy Active Med Itching [facility] 00[facility]: Medical [facility] Center Amlodipi Propensi Active Itching [facility] adverse 00:00: Medical reaction 00 Center [...] amLODIPi Active Memori a ne ne l [place] baclofen baclofen Active Memori a l [place] NO KNOWN Allergy Active [facility] Social History Social Habit Start Date Stop Date Quantity Comments Source Gender identity [facility] Sexual orientation [facility] SDOH [facility] Alcohol Std Drinks [facility] History SDOH [facility] Alcohol Binge Medical Ca ter Exposure to 2022-07-01 2022-07-11 Not sure [facility] of SARS-CoV-2 (event) 00:00:00 17:41:00 [facility] Alcohol intake 2021-02-06 2021-02-[address] [facility] 00:[facility]00 00[facility]00 [facility] Tobacco use and 2020-12-15 2020-12-[address] [facility] exposure 00:00:00 00:00:00 tobacco non-user Medical Center History SDOH 2020-12-15 2020-12-[address] [facility] Alcohol Frequency 00:00:00 00:00:00 [facility] Social History 2019-01-15 2019-01-15 [facility] mona 18:23:27 18:23:27 Sex Assigned At [address] [facility] 00:[facility] Smoking Status Start Date Stop Date Source Tobacco smoking consumption unknown [facility] Tobacco smoking status [facility] Medications Ordered Filled Start Stop Current Ordering Indication Dosage Frequency Signature Comments Components Source Medication Medication Date Date Medication? Clinician (SIG) Name Name amitriptyli Yes PO, Memori a ne 6-16 Bedtime, 0 l 18:40: Refill(s) Talon 00 gabapentin Yes 100 mg = 1 M emoria 100 mg oral 6-16 cap, PO, l capsule 18:40: TID, 0 Talon 00 Refill(s) HYDROcodone 0 Yes 1 tab, PO, Memoria -ibuprofen 6-16 Q4H, PRN l 5 mg-200 mg 18:40: for pain, H ermann oral tablet 00 0 Refill(s) non-formula 0 Yes steroid Mem oria ry 6-16 shots, l 18:40: Refill(s) [place] 00 0 TAKE 2021-06 No CAPSULE BY 0-05 MOUTH TWICE 00:00: DAILY 00 TAKE 2021-06 No CAPSULE BY 0-05 MOUTH TWICE 00:00: DAILY 00 potassium 2021-06 No chloride ER 0-04 20 mEq 00:00: tablet,exte 00 nded release potassium 2021-06 No chloride ER 0-04 20 mEq 00:00: tablet,exte 00 nded release tizanidine 2021-0 No 2 mg tablet 03-20 00:00: 00 tizanidine 2021-0 No 2 mg tablet 03-20 00:00: 00 levothyroxi 2021-0 No ne 50 mcg 8-12 tablet 00:00: 00 USED 2021-0 No DIRECTED 8- 00:00: 00 levothyroxi 2021-0 No ne 50 mcg 8-12 tablet 00:00: 00 USED 2021-0 No DIRECTED 812 00:00: 00 TAKE 2021-0 No 10 TABLET BY 7-28 MOUTH AT 00:00: NIGHT 00 TAKE 06/25 2021-0 No 4 TABLET BY 7-28 MOUTH DAILY 00:00: NEEDED 00 TAKE 2021-0 No 10 CAPSULE BY 7-28 MOUTH EVERY 00:00: DAY 00 TAKE 2021-0 No 40 TABLET BY 7-28 MOUTH AT 00:00: BEDTIME 00 TAKE 2021-0 No 10 TABLET BY 7-28 MOUTH AT 00:00: NIGHT 00 TAKE 06/25 2021-0 No 4 TABLET BY 7-28 MOUTH DAILY 00:00: NEEDED 00 TAKE 2021-0 No 10 CAPSULE BY 7-28 MOUTH EVERY 00:00: DAY 00 TAKE 2021-0 No 40 TABLET BY 7-28 MOUTH AT 00:00: BEDTIME 00 &lt 2021-0 No -27 00:00: 00 TAKE 1 2022-0 No 100 CAPSULE BY 7-27 MOUTH THREE 00:00: TIMES DAILY 00 &lt 2022-0 No - 00:00: 00 TAKE 1/2 2022-0 No 4 TABLET BY 7-27 MOUTH DAILY 00:00: NEEDED 00 Dose 2022-0 No Unknown 01-17 00:00: 00 TAKE 1 2022-0 No 100 TABLET BY 7-27 MOUTH DAILY 00:00: 00 Dose 2022-0 No Unknown 01-17 00:00: 00 TAKE 1 2022-0 No 10 CAPSULE [...] 40 mg - tablet 00:00: 00 allopurinol 2-0 No 1mg 100 mg - tablet 00:00: 00 hydroxyzine 2022-0 No 1mg HCl 25 mg - tablet 00:00: 00 levothyroxi 2022-0 No 1mcg ne 50 mcg - tablet 00:00: 00 liothyronin 2022-0 No 1mcg e 5 mcg - tablet 00:00: 00 cyanocobala 2-0 No 1mcg/mL min (vit 01-17 B-12) 1,000 00:00: mcg/mL 00 injection solution &lt 2022-0 No - 00:00: 00 TAKE 1 2022-0 No TABLET BY 7-27 MOUTH DAILY 00:00: 00 TAKE 1 2-0 [...] FOR 00 5 DAYS &lt 2022-0 No - 00:00: 00 TAKE 1 2-0 No 100 CAPSULE BY 7-27 MOUTH THREE 00:00: TIMES DAILY 00 &lt 2022-0 No - 00:00: 00 TAKE 1/2 2022-0 No 4 [...] MOUTH IN 00:00: THE MORNING 00 atorvastati 2-0 No 1mg n 40 mg - tablet 00:00: 00 allopurinol 2-0 No 1mg 100 mg - tablet 00:00: 00 hydroxyzine 2022-0 No 1mg HCl 25 mg - tablet 00:00: 00 levothyroxi 2022-0 No 1mcg ne 50 mcg - tablet 00:00: 00 liothyronin 2-0 No 1mcg e 5 mcg - tablet 00:00: 00 cyanocobala 2022-0 No 1mcg/mL min (vit 01-17 B-12) 1,000 00:00: mcg/mL 00 injection solution &lt 2022-0 No - 00:00: 00 TAKE 1 2022-0 No TABLET BY 7-27 MOUTH DAILY 00:00: 00 TAKE 1 2-0 No 25 TABLET BY 7-27 MOUTH TWICE 00:00: DAILY WITH 00 FOOD TAKE 1 2-0 No 10 CAPSULE BY 7-27 MOUTH EVERY 00:00: DAY 00 TAKE 1 2-0 No 40 TABLET BY 7-27 MOUTH AT 00:00: BEDTIME 00 &lt 2022-0 No 7-27 00:00: 00 TAKE 1 2022-0 No TABLET BY 01-17 MOUTH EVERY 00:00: 6 HOURS FOR 00 5 DAYS tizanidine 2022-0 No 1mg 2 mg tablet 12-27 00:00: 00 hydrocodone 2022-0 No 1mg 5 12-27 mg-acetamin 00:00: ophen 325 00 mg tablet gabapentin 2022-0 No 1mg 300 mg 12-27 capsule 00:00: 00 TAKE 1 2022-0 No TABLET BY 12-27 MOUTH DAILY 00:00: 00 &lt 2022-0 No 12-27 00:00: 00 &lt 2022-0 No 12-27 00:00: 00 TAKE 1 2022-0 No TABLET BY 12-27 MOUTH EVERY 00:00: 6 HOURS 00 NEEDED FOR PAIN TAKE 1/2 2022-0 No 4 TABLET BY 12-27 MOUTH DAILY 00:00: NEEDED 00 TAKE 1 2022-0 No 40 TABLET BY 12-27 MOUTH AT 00:00: BEDTIME 00 &lt 2022-0 No 12-27 00:00: 00 TAKE 1 2022-0 No 25 TABLET BY 12-27 MOUTH TWICE 00:00: DAILY WITH 00 FOOD TAKE 1 2-0 No 100 TABLET BY 12-27 MOUTH DAILY 00:00: 00 TAKE 1 2-0 No 2 CAPSULE BY 12-27 MOUTH TWICE 00:00: DAILY 00 tizanidine 2-0 No 1mg 2 mg tablet 12-27 00:00: 00 hydrocodone 2022-0 No 1mg 5 12-27 mg-acetamin 00:00: ophen 325 00 mg tablet gabapentin 2-0 No 1mg 300 mg 12-27 capsule 00:00: 00 TAKE 1 2022-0 No TABLET BY - MOUTH DAILY 00:00: 00 &lt 2022-0 No 12-27 00:00: 00 &lt 2022-0 No 12-27 00:00: 00 TAKE 1 2022-0 No TABLET BY - MOUTH EVERY 00:00: 6 HOURS 00 NEEDED FOR PAIN TAKE 1/2 2022-0 No 4 TABLET BY 7- MOUTH DAILY 00:00: NEEDED 00 TAKE 1 2022-0 No 40 TABLET BY 7- MOUTH AT 00:00: BEDTIME 00 &lt 2022-0 No 00:00: 00 TAKE 1 2022-0 No 25 [...] 00 cyanocobala 2022-0 No 1mcg/mL min (vit 6-24 B-12) 1,000 00:00: mcg/mL 00 injection solution Dose 2-0 No Unknown 12-15 00:00: 00 &lt 2022-0 No 6-24 00:00: 00 TAKE 1 2-0 No CAPSULE BY 6-24 MOUTH TWICE 00:00: DAILY 00 tizanidine 2-0 No 5mg 4 mg tablet 12-15 00:00: 00 atorvastati 2022-0 No 1mg n 40 mg 6-24 tablet 00:00: 00 allopurinol 2022-0 No 1mg 100 mg 6-24 tablet 00:00: 00 levothyroxi 2022-0 No 1mcg ne 50 mcg 6-24 tablet 00:00: 00 liothyronin 2022-0 No 1mcg e 5 mcg 6-24 tablet 00:00: 00 cyanocobala 2022-0 No 1mcg/mL min (vit 24 B-12) 1,000 00:00: mcg/mL 00 injection solution Dose 2-0 No Unknown 624 00:00: 00 &lt 2022-0 No 6-24 00:00: 00 TAKE 1 2-0 No CAPSULE BY 6-24 MOUTH TWICE 00:00: DAILY 00 &lt 2022-0 No 6- 00:00: 00 &lt 2022-0 No 6-23 00:00: 00 tizanidine 2022-0 No 5mg 4 mg tablet 1- 00:00: 00 atorvastati 2022-0 No 1mg n 40 mg 1-03 tablet 00:00: 00 allopurinol 2022-0 No 1mg 100 mg 1-03 tablet 00:00: 00 hydroxyzine 2022-0 No 1mg HCl 25 mg 1-03 tablet 00:00: 00 liothyronin 2022-0 No 1mcg e 5 mcg 1-03 tablet 00:00: 00 levothyroxi 2-0 No 1mcg ne 50 mcg 1-03 tablet 00:00: 00 cyanocobala 2-0 No 1mcg/mL min (vit 06-26 B-12) 1,000 00:00: mcg/mL 00 injection solution tizanidine 2-0 No 5mg 4 mg tablet 06-26 00:00: 00 atorvastati 2-0 No 1mg n 40 mg 1-03 tablet 00:00: 00 allopurinol 2-0 No 1mg 100 mg 1-03 tablet 00:00: 00 hydroxyzine 2-0 No 1mg HCl 25 mg 1-03 tablet 00:00: 00 liothyronin 2-0 No 1mcg e 5 mcg 1-03 tablet 00:00: 00 levothyroxi 2-0 No 1mcg ne 50 mcg 1-03 tablet 00:00: 00 cyanocobala 2-0 No 1mcg/mL min (vit 06-26 B-12) 1,000 00:00: mcg/mL 00 injection solution atorvastati 1-1 No 1mg n 40 mg 2-03 tablet 00:00: 00 allopurinol 1-1 No 1mg 100 mg 2-03 tablet 00:00: 00 liothyronin 1-1 No 1mcg e 5 mcg 2-03 tablet 00:00: 00 levothyroxi 1-1 No 1mcg ne 50 mcg 2-03 tablet 00:00: 00 atorvastati 1-1 No 1mg n 40 mg 2-03 tablet 00:00: 00 allopurinol 2021-1 No 1mg 100 mg 2-03 tablet 00:00: 00 liothyronin 1-1 No 1mcg e 5 mcg 2-03 tablet [...] 1-05 tab, PO, l tablet 18:59: Bedtime, [place] 00 PRN for muscle spasm, # 30 tab, 0 Refill(s) tizanidine 2020-06 Yes 2 mg = 1 Mem oria 2 mg oral 1-05 tab, PO, l tablet 18:59: Bedtime, [place] 00 PRN for muscle spasm, # 30 tab, 0 Refill(s) tizanidine 2020-06 Yes 2 mg = 1 Mem oria 2 mg oral 1-05 tab, PO, l tablet 18:59: Bedtime, [place] 00 PRN for muscle spasm, # 30 tab, 0 Refill(s) tizanidine 2020-06 Yes 2 mg = 1 Mem oria 2 mg oral 1-05 tab, PO, l tablet 18:59: Bedtime, [place] 00 PRN for muscle spasm, # 30 [...] 2020-06 Yes 50 mg = 1 M cassandra Hydrochlori 1-05 tab, PO, l de 50 MG 18:21: TID, # 270 Her cardenas Oral Tablet 00 tab, 1 Refill(s) tizanidine 0 No 5mg 4 mg tablet 03-09 00:00: 00 lisinopril 2020-0 No 1mg 20 mg 9-16 tablet 00:00: 00 Eliquis 2.5 0 No 1mg mg tablet 03-09 00:00: 00 hydralazine 0 No 1mg 25 mg 9-16 tablet 00:00: 00 tizanidine 0 No 5mg 4 mg tablet 03-09 00:00: 00 lisinopril 2020-0 No 1mg 20 mg 9-16 tablet 00:00: 00 Eliquis 2.5 0 No 1mg mg tablet 03-09 00:00: 00 hydralazine 0 No 1mg 25 mg 9-16 tablet 00:00: 00 hydrOXYzine 0 Yes 10mg Take [address] [facility] [...] MG tablet 16:47: daily. Medica l 14 Center carvediloL Yes 12.5mg [id number] Take 12.[address] [facility] (COREG) 8-24 [id number] mg by [facility] 12.5 MG 16:47: 3D mouth 3 Medical tablet 14 (three) Center times daily . liothyronin Yes 5ug QD Take [address] e (CYTOMEL) 8-24 by mouth Luke s 5 MCG 16:47: daily. Medical tablet 14 [place] allopurinoL Yes 100mg QD Take [address] (ZYLOPRIM) 8-24 mg by [facility] 100 MG 16:47: mouth Medical tablet 14 daily. [place] folic Yes Take by [facility] ac/vit 8-24 mouth. Charlie Bcomp,C/Zn/ 16:47: Medica l vit D3 14 Center (DIALYVITE 800-ULTRA D ORAL) cyanocobala Yes 2500ug QD Take 2,[address] [facility] min 2000 8-24 mcg by [facility]ukes MCG tablet 16:47: mouth Medica l 14 daily. [place] docusate Yes 100mg QD Take [address] sodium 8-24 mg by [facility]ukes (COLACE) 16:47: mouth Medical 100 MG 14 daily. [place] capsule albuterol Yes 1{ampul Take 1 CH[facility] [...] capsule 14 every Center other day Mon, Wed, and [place] . hydrOXYzine Yes 10mg Take [address] (ATARAX) 10 8-24 by mouth 3 Maria G kes MG tablet 16:47: (three) Medic al 14 times Center daily as needed for Itching. atorvastati Yes 40mg QD Take [address] [facility] n (LIPITOR) 8-24 by mouth Luke s 40 MG 16:47: nightly. Medical tablet 14 [place] levothyroxi Yes 50ug Take [address] ne 8-24 mcg by Lukes (SYNTHROID, 16:47: mouth Medic al LEVOTHROID) 14 Every Center 50 MCG morning on tablet an empty stomach. bumetanide Yes 1mg QD Take [address] (BUMEX) 1 8-24 by mouth [facility]ukes MG tablet 16:47: daily. Medica l 14 Center carvediloL Yes 12.5mg [id number] Take 12.[address] (COREG) 8-24 [id number] mg by [facility]ukes 12.5 MG 16:47: 3D mouth 3 Medical tablet 14 (three) Center times daily . liothyronin Yes 5ug QD Take [address] [facility] (CYTOMEL) 8-24 by mouth Luke s 5 MCG 16:47: daily. Medical tablet 14 Center allopurinoL Yes 100mg QD Take [address] (ZYLOPRIM) 8-24 mg by [facility] 100 MG 16:47: mouth Medical tablet 14 daily. [place] folic Yes Take by [facility] ac/vit 8-24 mouth. [facility] Bcomp,C/Zn/ 16:47: Medica l vit D3 14 Center (DIALYVITE 800-ULTRA D ORAL) cyanocobala Yes 2500ug QD Take 2,[address] min 2000 8-24 mcg by [facility]ukes MCG tablet 16:47: mouth Medica l 14 daily. [place] docusate Yes 100mg QD Take [address] sodium 8-24 mg by [facility]ukes (COLACE) 16:47: mouth Medical 100 MG 14 daily. [place] capsule albuterol Yes 1{ampul Take 1 CHI [...] Medical capsule 14 every Center other day Sat, Sat, and Saturday . lisinopriL 2020-2021- No 10mg QD Take [address] [facility] (PRINIVIL,Z 02-14-24 tablet (10 L ukes ESTRIL) 10 00:00: 23:59 mg total) M edical MG tablet 00 :00 by mouth Center daily. lisinopriL 2021- No 10mg QD Take [address] (PRINIVIL,Z 02-14 08-24 tablet (10 L ukes ESTRIL) 10 00:00: 23:59 mg total) M edical MG tablet 00 :00 by mouth Center daily. acetaminoph 2020-2021- No 650mg Take [address] [facility] 02-13-18 tablets [facility]ukes (TYLENOL) 00:00: 23:59 (650 mg Medi denise 325 MG 00 :00 total) by Center tablet mouth every 4 (four) hours as needed for up to 360 days. baclofen Yes 10 mg = 1 M emoria mg oral 8-10 tab, PO, l tablet 23:07: TID, # 90 Keenan n 00 tab, 2 Refill(s), Pharmacy: [facility] #[id number], 160.02, cm, 10/31/20 10:11:00 CDT, Height, 60, kg, 10/31/20 10:11:00 CDT, Weight baclofen 10 Yes 10 mg = 1 M emoria mg oral 8-10 tab, PO, l tablet 23:07: TID, # 90 Keenan n 00 tab, 2 Refill(s), Pharmacy: [facility] #[id number], 160.02, cm, 10/31/20 10:11:00 CDT, Height, 60, kg, 10/31/20 10:11:00 CDT, Weight baclofen Yes 10 mg = 1 M emoria mg oral 8-10 tab, PO, l tablet 23:07: TID, # 90 Keenan n 00 tab, 2 Refill(s), Pharmacy: [facility] #[id number], 160.02, cm, 10/31/20 10:11:00 CDT, Height, 60, kg, 10/31/20 10:11:00 CDT, Weight baclofen 10 2020-0 Yes 10 mg = 1 M emoria mg oral 8-10 tab, PO, l tablet 23:07: TID, # 90 Keenan n 00 tab, 2 Refill(s), Pharmacy: [facility] #[id number], 160.02, cm, 10/31/20 10:11:00 CDT, Height, 60, kg, 10/31/20 10:11:00 CDT, Weight baclofen 10 2020-0 Yes 10 mg = 1 M emoria mg oral 8-10 tab, PO, l tablet 23:07: TID, # 90 Keenan n 00 tab, 2 Refill(s), Pharmacy: [facility] #[id number], 160.02, cm, 10/31/20 10:11:00 CDT, Height, 60, kg, 10/31/20 10:11:00 CDT, Weight gabapentin 2020-0 Yes 300 mg = 1 M emoria 300 MG Oral 8-10 cap, PO, l Capsule 19:55: Bedtime, # Herm vin 00 30 cap, 3 Refill(s), Pharmacy: [facility] #[id number], 160.02, cm, 10/31/20 10:11:00 CDT, Height, 60, kg, 10/31/20 10:11:00 CDT, Weight gabapentin 1-0 Yes 300 mg = 1 M emoria 300 MG Oral 8-10 cap, PO, l Capsule 19:55: Bedtime, # Herm vin 00 30 cap, 3 Refill(s), Pharmacy: [facility] #[id number], 160.02, cm, 10/31/20 10:11:00 CDT, Height, 60, kg, 10/31/20 10:11:00 CDT, Weight gabapentin 2021-0 Yes 300 mg = 1 M emoria 300 MG Oral 8-10 cap, PO, l Capsule 19:55: Bedtime, # Herm vni 00 30 cap, 3 Refill(s), [facility] ST[facility] #[id number], 160.02, cm, 10/31/20 10:11:00 CDT, Height, 60, kg, 10/31/20 10:11:00 CDT, Weight gabapentin 2021-0 Yes 300 mg = 1 M emoria 300 MG Oral 8-10 cap, PO, l Capsule 19:55: Bedtime, # Herm vin 00 30 cap, 3 Refill(s), Pharmacy: [facility] STORE #[id number], 160.02, cm, 10/31/20 10:11:00 CDT, Height, 60, kg, 10/31/20 10:11:00 CDT, Weight gabapentin 2021-0 Yes 300 mg = 1 M emoria 300 MG Oral 8-10 cap, PO, l Capsule 19:55: Bedtime, # Herm vin 00 30 cap, 3 Refill(s), Pharmacy: [facility] STORE #[id number], 160.02, cm, 10/31/20 10:11:00 CDT, Height, 60, kg, 10/31/20 10:11:00 CDT, Weight tizanidine 2021-0 No 4 mg = 1 Mem oria 4 MG Oral 8-10 tab, PO, l Tablet 19:54: Q8H, # 90 Keenan n [Zanaflex] 00 tab, 3 Refill(s), Pharmacy: [facility] STORE #[id number], 160.02, cm, 10/31/20 10:11:00 CDT, Height, 60, kg, 10/31/20 10:11:00 CDT, Weight tizanidine 2021-0 No 4 mg = 1 Mem oria 4 MG Oral 8-10 tab, PO, l Tablet 19:54: Q8H, # 90 Keenan n [Zanaflex] 00 tab, 3 Refill(s), Pharmacy: [facility] STORE #[id number], 160.02, cm, 10/31/20 10:11:00 CDT, Height, 60, kg, 10/31/20 10:11:00 CDT, Weight tizanidine 2021-0 No 4 mg = 1 Mem oria 4 MG Oral 8-10 tab, PO, l Tablet 19:54: Q8H, # 90 Keenan n [Zanaflex] 00 tab, 3 Refill(s), Pharmacy: [facility] STORE #[id number], 160.02, cm, 10/31/20 10:11:00 CDT, Height, 60, kg, 10/31/20 10:11:00 CDT, Weight tizanidine 2020-0 No 4 mg = 1 Mem oria 4 MG Oral 8-10 tab, PO, l Tablet 19:54: Q8H, # 90 Keenan n [Zanaflex] 00 tab, 3 Refill(s), Pharmacy: [facility] STORE #[id number], 160.02, cm, 10/31/20 10:11:00 CDT, Height, 60, kg, 10/31/20 10:11:00 CDT, Weight tizanidine 2020-0 No 4 mg = 1 Mem oria 4 MG Oral 8-10 tab, PO, l Tablet 19:54: Q8H, # 90 Keenan n [Zanaflex] 00 tab, 3 Refill(s), Pharmacy: [facility] STORE #[id number], 160.02, cm, 10/31/20 10:11:00 CDT, Height, 60, kg, 10/31/20 10:11:00 CDT, Weight carvedilol 0 Yes TAKE 1 Memor ia 12.5 mg 8-10 TABLET BY l oral tablet 19:49: MOUTH Maribell nn 00 THREE TIMES DAILY apixaban 0 Yes TAKE 1 Memoria 2.5 MG Oral 8-10 TABLET BY l Tablet 19:49: MOUTH [place] [Eliquis] 00 TWICE DAILY carvedilol 0 Yes TAKE 1 Memor ia 12.5 mg 8-10 TABLET BY l oral tablet 19:49: MOUTH Maribell nn 00 THREE TIMES DAILY apixaban 0 Yes TAKE 1 Memoria 2.5 MG Oral 8-10 TABLET BY l Tablet 19:49: MOUTH [place] [Eliquis] 00 TWICE DAILY carvedilol 0 Yes TAKE 1 Memor ia 12.5 mg 8-10 TABLET BY l oral tablet 19:49: MOUTH Maribell nn 00 THREE TIMES DAILY apixaban 0 Yes TAKE 1 Memoria 2.5 MG Oral 8-10 TABLET BY l Tablet 19:49: MOUTH [place] [Eliquis] 00 TWICE DAILY carvedilol 0 Yes TAKE 1 Memor ia 12.5 mg 8-10 TABLET BY l oral tablet 19:49: MOUTH Maribell nn 00 THREE TIMES DAILY apixaban Yes TAKE 1 Memoria 2.5 MG Oral 8-10 TABLET BY l Tablet 19:49: MOUTH [place] [Eliquis] 00 TWICE DAILY carvedilol Yes TAKE 1 Memor ia 12.5 mg 8-10 TABLET BY l oral tablet 19:49: MOUTH Maribell nn 00 THREE TIMES DAILY apixaban Yes TAKE 1 Memoria 2.5 MG Oral 8-10 TABLET BY l Tablet 19:49: MOUTH [place] [Eliquis] 00 TWICE DAILY Eliquis 2.5 Yes TAKE 1 Anthony litzy mg oral 8-10 TABLET BY l tablet 19:49: MOUTH [place] 00 TWICE DAILY lisinopril Yes 20 mg [...] 40 mg 8-10 Refill(s) l oral 19:21: [place] enteric 00 coated tablet Acetaminoph Yes 1 tab, PO, Memoria en 325 MG / 8-10 Q4H, PRN l Hydrocodone 19:21: Pain, # 30 [place] Bitartrate 00 tab, 0 10 MG Oral [...] 40 mg 8-10 Refill(s) l oral 19:21: [place] enteric 00 coated tablet Acetaminoph Yes 1 tab, PO, Memoria en 325 MG / 8-10 Q4H, PRN l Hydrocodone 19:21: Pain, # 30 [place] Bitartrate 00 tab, 0 10 MG Oral Refill(s) Tablet lisinopril 2020-0 Yes 20 mg = 1 Me moria 20 mg oral 8-10 tab, PO, l tablet 19:21: Daily, # [place] 00 30 tab, 0 Refill(s) methocarbam 2020-0 No 1,000 mg = Memoria ol 500 mg 8-10 2 tab, PO, l oral tablet 19:21: QID, # 56 H ermann 00 tab, 0 Refill(s) pantoprazol 2020-0 Yes 0 Memori a e 40 mg 8-10 Refill(s) l oral 19:21: [place] enteric 00 coated tablet Acetaminoph 2020-0 Yes 1 tab, PO, Memoria en 325 [...] H ermann 00 tab, 0 Refill(s) pantoprazol 2020-0 Yes 0 Memori a e 40 mg 8-10 Refill(s) l oral 19:21: [place] enteric 00 coated tablet Acetaminoph 2020-0 Yes 1 tab, PO, Memoria en 325 MG / 8-10 Q4H, PRN l Hydrocodone 19:21: Pain, # 30 [place] Bitartrate 00 tab, 0 10 MG Oral Refill(s) Tablet lisinopril 2020-0 Yes 20 mg = 1 Me moria 20 mg oral 8-10 tab, PO, l tablet 19:21: Daily, # [place] 00 30 tab, 0 Refill(s) methocarbam 2020-0 No 1,000 mg = Memoria ol 500 mg 8-10 2 tab, PO, l oral tablet 19:21: QID, # 56 H ermann 00 tab, 0 Refill(s) pantoprazol Yes 0 Memori a e 40 mg 8-10 Refill(s) l oral 19:21: [place] enteric 00 coated tablet Acetaminoph Yes 1 tab, PO, Memoria en 325 MG / 8-10 Q4H, PRN l Hydrocodone 19:21: Pain, # 30 [place] Bitartrate 00 tab, 0 10 MG Oral Refill(s) Tablet apixaban 2020- No 2.5mg Q.5D Take [facility] 2[facility]5 mg Tab 00:00: 23:59 (2.5 mg Med ical tablet 00 :00 total) by Center mouth 2 (two) times daily for 30 days. cholecalcif 2021- No 2000U QD Take [address] [facility] 2,000 - 07-14 tablet [facility] unit Tab 00:00: 23:59 (2,000 Medica l 00 :00 Units Center total) by mouth daily. pantoprazol 2020- No 40mg QD Take [address] [facility] -14 08-13 tablet (40 [facility] (PROTONIX) 00:00: 23:59 mg total) M edical 40 MG 00 :00 by mouth Center tablet daily for 30 days. hydrALAZINE Yes 25mg [id number] Take [address] [facility] (APRESOLINE 7-13 [id number] by mouth 3 [facility] ) 25 MG [...] MG tablet 18:53: daily. Medica l 50 [place] spironolact Yes 50mg QD Take [address] [facility] one 7-13 by mouth [facility] (ALDACTONE) 18:53: daily. Medi denise 50 MG 50 Center tablet cloNIDine Yes .1mg Take 0.[address] [facility] HCL 7-13 mg by [facility] (CATAPRES) 18:53: mouth Medica l 0.1 MG 50 daily as Center tablet needed. carvediloL Yes 12.5mg [id number] Take 12.[address] [facility] (COREG) 7-13 [id number] mg by [facility] 12.5 MG 18:53: 3D mouth 3 Medical tablet 50 (three) Center times daily . liothyronin Yes 5ug QD Take [address] [facility] (CYTOMEL) 7-13 by mouth Luke s 5 MCG 18:53: daily. Medical tablet 50 [place] allopurinoL Yes 100mg QD Take [address] (ZYLOPRIM) 7-13 mg by [facility] 100 MG 18:53: mouth Medical tablet 50 daily. [place] folic Yes Take by [facility] ac/vit 7-13 mouth. [facility] Bcomp,C/Zn/ 18:53: Medica l vit D3 50 Center (DIALYVITE 800-ULTRA D ORAL) cyanocobala Yes 2500ug QD Take 2,[address] [facility] min 2000 7-13 mcg by [facility] MCG tablet 18:53: mouth Medica l 50 daily. [place] docusate Yes 100mg QD Take [address] [facility] [facility] sodium 7-13 mg by [facility] (COLACE) 18:53: mouth Medical 100 MG 50 daily. [place] capsule promethazin Yes 5mL Take [address] [facility] e-codeine 7-13 by mouth [facility] (PHENERGAN 18:53: every 4 Medi denise with 50 (four) Center CODEINE) hours as 6.25-10 needed for mg/5 mL Cough. syrup albuterol Yes 1{ampul Take [address] [facility] (ACCUNEB) 7-13 e} ampule by Charlie 0.63 mg/3 18:53: nebulizati Me dical mL 50 on every 6 Center nebulizer (six) solution hours. budesonide Yes .25mg Q.5D Take 0.[address] (PULMICORT) 7-13 mg by [facility] 0.25 mg/2 18:53: nebulizati Me dical mL 50 on 2 (two) Center nebulizer times solution daily. ramipriL 2020- No 5mg QD Take [address] [facility] (ALTACE) 5 01-03 07-13 by mouth Luke s MG capsule 14:07: 00:00 nightly. Me dical 08 :00 Center apixaban 2020- No 2.5mg Q.5D Take 2.[address] [facility] (Eliquis) 01-03-13 mg by [facility] 2.5 mg Tab 14:07: 00:00 mouth 2 Med ical tablet 08 :00 (two) Center times daily. lisinopriL 2020- No 20mg QD Take [address] [facility] (PRINIVIL,Z 01-03 08-12 tablet (20 L ukes ESTRIL) 20 [...] St -acetaminop 01-03 07-23 tablets by Kalyani rm (NORCO 00:00: 23:59 mouth Medic al 10-325) 00 :00 every 4 Center 10-325 mg (four) per tablet hours as needed for up to 10 days. Max Daily Amount: 12 tablets atorvastati No 1mg n 40 mg 6-07 tablet 00:00: 00 atorvastati 0 No 1mg n 40 mg 6-07 tablet 00:00: 00 Calcitriol Yes 0.25 Memoria 5-10 microgram, l 21:00: PO, , 0 Refill(s) Calcitriol 0 Yes 0.25 Memoria 5-10 microgram, l 21:00: PO, , 0 Refill(s) Calcitriol 0 Yes 0.25 Memoria 5-10 microgram, l 21:00: PO, , 0 Refill(s) Calcitriol 0 Yes 0.25 Memoria 5-10 microgram, l 21:00: PO, , 0 Refill(s) Calcitriol 0 Yes 0.25 Memoria 5-10 microgram, l 21:00: PO, , 0 Refill(s) calcitriol 0 Yes 0.25 Memoria 5-10 microgram, l 21:00: PO, , 0 Refill(s) Hydralazine Yes TAKE 1 Anthony [...] DAILY WITH FOOD Hydralazine Yes TAKE 1 Nathony litzy Hydrochlori 5-10 TABLET BY l de 25 MG 15:15: MOUTH FOUR Her cardenas Oral Tablet 00 TIMES DAILY WITH FOOD Hydralazine Yes TAKE 1 Anthony litzy Hydrochlori 5-10 TABLET BY l de 25 MG 15:15: MOUTH FOUR Her cardenas Oral Tablet 00 TIMES DAILY WITH FOOD levothyroxi No 1mcg ne 50 mcg 3-16 tablet 00:00: 00 liothyronin No 1mcg e 5 mcg 3-16 tablet 00:00: 00 levothyroxi No 1mcg ne 50 mcg 3-16 tablet 00:00: 00 liothyronin 2020-0 No 1mcg e 5 mcg 3-16 tablet 00:00: 00 Ramipril 0 Yes 5 mg, PO, Anthony litzy 1-27 Daily, 0 l 20:07: Refill(s) Spironolact 0 Yes 1 mg, PO, M emoria one 1-27 Daily, # l 20:07: 60 tab, 0 Refill(s) Dialyvite 0 Yes 0 Memoria 800 Ultra D 1-27 Refill(s) l 20:07: Hydralazine 0 No 25 mg, PO, Memoria 1-27 Daily, 0 l 20:07: Refill(s) Ramipril 0 Yes 5 mg, PO, Anthony litzy 1-27 Daily, 0 l 20:07: Refill(s) Spironolact Yes 1 mg, PO, M emoria one 1-27 Daily, # l 20:07: 60 tab, 0 Refill(s) Dialyvite 0 Yes 0 Memoria 800 Ultra D 1- Refill(s) l 20:07: Hydralazine 0 No 25 mg, PO, Memoria 1-27 Daily, 0 l 20:07: Refill(s) Ramipril 0 Yes 5 mg, PO, Anthony litzy 1-27 Daily, 0 l 20:07: Refill(s) Spironolact 0 Yes 1 mg, PO, M emoria one 1-27 Daily, # l 20:07: 60 tab, 0 Refill(s) Dialyvite 0 Yes 0 Memoria 800 Ultra D 1- Refill(s) l 20:07: Hydralazine 0 No 25 [...] 19:23: INJ, ONCE, Stop date: 05/26/20 13:23:00 ACCOUNT ADJUSTER neostigmine 2019-06 No Route: IV, Memoria (ANES) 07-27 Drug form: l 19:23: INJ, ONCE, Stop date: 05/26/20 13:23:00 ACCOUNT ADJUSTER labetalol 2019-06 No Route: IV, Me moria (ANES) 07-27 Drug form: l 19:23: INJ, ONCE, Stop date: 05/26/20 13:23:00 ACCOUNT ADJUSTER glycopyrrol 2019-06 No Route: IV, Memoria ate (ANES) 07-27 Drug form: l 19:23: INJ, ONCE, Stop date: 05/26/20 13:23:00 ACCOUNT ADJUSTER neostigmine 2019-06 No Route: IV, Memoria (ANES) 07-27 Drug form: l 19:23: INJ, ONCE, Stop date: 05/26/20 13:23:00 ACCOUNT ADJUSTER labetalol 2019-06 No Route: IV, Me moria (ANES) 2- Drug form: l 19:23: INJ, ONCE, Stop date: 05/26/20 13:23:00 ACCOUNT ADJUSTER glycopyrrol 2019-06 No Route: IV, Memoria ate (ANES) 2- Drug form: l 19:23: INJ, ONCE, Stop date: 05/26/20 13:23:00 ACCOUNT ADJUSTER neostigmine 2019-06 No Route: IV, Memoria (ANES) 2- Drug form: l 19:23: INJ, ONCE, Stop date: 05/26/20 13:23:00 ACCOUNT ADJUSTER labetalol 2019-06 No Route: IV, Me moria (ANES) 2- Drug form: l 19:23: INJ, ONCE, Stop date: 05/26/20 13:23:00 ACCOUNT ADJUSTER glycopyrrol 2019-06 No Route: IV, Memoria ate (ANES) 2- Drug form: l 19:23: INJ, ONCE, Stop date: 05/26/20 13:23:00 ACCOUNT ADJUSTER neostigmine 2019-06 No Route: IV, Memoria (ANES) 2- Drug form: l 19:23: INJ, ONCE, Stop date: 05/26/20 13:23:00 ACCOUNT ADJUSTER labetalol 2019-06 No Route: IV, Me moria (ANES) 2- Drug form: l 19:23: INJ, ONCE, Stop date: 05/26/20 13:23:00 ACCOUNT ADJUSTER labetalol 2019-06 No Route: IV, Me moria (ANES) 2- Drug form: l 19:23: INJ, ONCE, Stop date: 05/26/20 13:23:00 ACCOUNT ADJUSTER glycopyrrol 2019-06 No Route: IV, Memoria ate (ANES) 2- Drug form: l 19:23: INJ, ONCE, Stop date: 05/26/20 13:23:00 ACCOUNT ADJUSTER neostigmine 2019-06 No Route: IV, Memoria (ANES) 2- Drug form: l 19:23: INJ, ONCE, Stop date: 05/26/20 13:23:00 ACCOUNT ADJUSTER Hydralazine 2020-1 No 10 mg, Anthony litzy 2-03 Route: l 19:11: IVP, Talon 00 Q20Min, Dosing Weight 64.545, kg, PRN Elevated BP, Start date: 05/26/20 13:11:00 ACCOUNT ADJUSTER, Duration: 2 doses or times, Stop date: Limited # of times Labetalol 2019-06 No 10 mg, Memori a 07-27 Route: l 19:11: IVP, Tal[place] 00 Q5Min, Dosing Weight 64.545, kg, PRN Elevated BP, Start date: 05/26/20 13:11:00 ACCOUNT ADJUSTER, Duration: 5 doses or times, Stop date: Limited # of times Acetaminoph 2019-06 No 1,000 mg, M emoria en 07-27 Route: PO, l 19:11: Drug form: Talon 00 TAB, ONCE, Dosing Weight 64.545, kg, PRN Pain Score 1-3, Start date: 05/26/20 13:11:00 ACCOUNT ADJUSTER Fentanyl 2019-06 No 25 Memoria 2-03 microgram, l 19:11: Route: [place] 00 IVP, Q5Min, Dosing Weight 64.545, kg, PRN Pain Score 4-6, Priority: Routine, Start date: 05/26/20 13:11:00 ACCOUNT ADJUSTER, Duration: 4 doses or times, Stop date: Limited # of times Hydromorpho 2019- No 0.5 mg, Mem oria ne 07-27 Route: l 19:11: IVP, [place] 00 Q5Min, Dosing Weight 64.545, kg, PRN Pain Score 7-10, Start date: 05/26/20 13:11:00 ACCOUNT ADJUSTER, Duration: 4 doses or times, Stop date: Limited # of times Flumazenil 2019-06 No 0.2 mg, Anthony litzy 07-27 Route: l 19:11: IVP, PRN, [place] 00 Dosing Weight 64.545, kg, PRN Benzodiaze pine Reversal, Initial dose, Start date: 05/26/20 13:11:00 ACCOUNT ADJUSTER, Duration: 30 day, Stop date: 06/25/20 13:10:00 ACCOUNT ADJUSTER Naloxone 2019- No 0.4 mg, Memori a 07-27 Route: l 19:11: IVP, [place] 00 Q2MIN, Dosing Weight 64.545, kg, PRN Narcotic Reversal, Start date: 05/26/20 13:11:00 ACCOUNT ADJUSTER, Duration: 8 doses or times, Stop date: Limited # of times Ondansetron 2019-06 No 4 mg, Memor ia 2- Route: l 19:11: IVP, ONCE, [place] 00 Dosing Weight 64.545, kg, PRN Nausea & Vomiting, Start date: 05/26/20 13:11:00 ACCOUNT ADJUSTER Promethazin 2019-06 No 6.25 mg, Me moria e 2 Route: l 19:11: IVPB, [place] 00 ONCE, Dosing Weight 64.545, kg, PRN Nausea & Vomiting, Start date: 05/26/20 13:11:00 ACCOUNT ADJUSTER Hydralazine 2019-06 No 10 mg, Anthony litzy 07-27 Route: l 19:11: IVP, [place] 00 Q20Min, Dosing Weight 64.545, kg, PRN Elevated BP, Start date: 05/26/20 13:11:00 ACCOUNT ADJUSTER, Duration: 2 doses or times, Stop date: Limited # of times Labetalol 2019-06 No 10 mg, Memori a 07-27 Route: l 19:11: IVP, [place] 00 Q5Min, Dosing Weight 64.545, kg, PRN Elevated BP, Start date: 05/26/20 13:11:00 ACCOUNT ADJUSTER, Duration: 5 doses or times, Stop date: Limited # of times Acetaminoph 2019-06 No 1,000 mg, M emoria en 07-27 Route: PO, l 19:11: Drug form: Tal[place] 00 TAB, ONCE, Dosing Weight 64.545, kg, PRN Pain Score 1-3, Start date: 05/26/20 13:11:00 ACCOUNT ADJUSTER Fentanyl 2019-06 No 25 Memoria 2-03 microgram, l 19:11: Route: [place] 00 IVP, Q5Min, Dosing Weight 64.545, kg, PRN Pain Score 4-6, Priority: Routine, Start date: 05/26/20 13:11:00 ACCOUNT ADJUSTER, Duration: 4 doses or times, Stop date: Limited # of times Hydromorpho 2019-06 No 0.5 mg, Mem oria ne 2 Route: l 19:11: IVP, [place] 00 Q5Min, Dosing Weight 64.545, kg, PRN Pain Score 7-10, Start date: 05/26/20 13:11:00 ACCOUNT ADJUSTER, Duration: 4 doses or times, Stop date: Limited # of times Flumazenil 2019- No 0.2 mg, Anthony litzy 2- Route: l 19:11: IVP, PRN, [place] 00 Dosing Weight 64.545, kg, PRN Benzodiaze pine Reversal, Initial dose, Start date: 05/26/20 13:11:00 ACCOUNT ADJUSTER, Duration: 30 day, Stop date: 06/25/20 13:10:00 ACCOUNT ADJUSTER Naloxone 2019- No 0.4 mg, Memori a 2- Route: l 19:11: IVP, [place] 00 Q2MIN, Dosing Weight 64.545, kg, PRN Narcotic Reversal, Start date: 05/26/20 13:11:00 ACCOUNT ADJUSTER, Duration: 8 doses or times, Stop date: Limited # of times Ondansetron 2019- No 4 mg, Memor ia 2- Route: l 19:11: IVP, ONCE, [place] 00 Dosing Weight 64.545, kg, PRN Nausea & Vomiting, Start date: 05/26/20 13:11:00 ACCOUNT ADJUSTER Promethazin 2019- No 6.25 mg, Me moria e 2- Route: l 19:11: IVPB, [place] 00 ONCE, Dosing Weight 64.545, kg, PRN Nausea & Vomiting, Start date: 05/26/20 13:11:00 ACCOUNT ADJUSTER Hydralazine 2019- No 10 mg, Anthony litzy 2-03 Route: l 19:11: IVP, [place] 00 Q20Min, Dosing Weight 64.545, kg, PRN Elevated BP, Start date: 05/26/20 13:11:00 ACCOUNT ADJUSTER, Duration: 2 doses or times, Stop date: Limited # of times Labetalol 2020- No 10 mg, Memori a 2-03 Route: l 19:11: IVP, [place] 00 Q5Min, Dosing Weight 64.545, kg, PRN Elevated BP, Start date: 05/26/20 13:11:00 ACCOUNT ADJUSTER, Duration: 5 doses or times, Stop date: Limited # of times Acetaminoph 2019- No 1,000 mg, M emoria en - Route: PO, l 19:11: Drug form: [place] 00 TAB, ONCE, Dosing Weight 64.545, kg, PRN Pain Score 1-3, Start date: 05/26/20 13:11:00 ACCOUNT ADJUSTER Fentanyl 2019-06 No 25 Memoria 2-03 microgram, l 19:11: Route: [place] 00 IVP, Q5Min, Dosing Weight 64.545, kg, PRN Pain Score 4-6, Priority: Routine, Start date: 05/26/20 13:11:00 ACCOUNT ADJUSTER, Duration: 4 doses or times, Stop date: Limited # of times Hydromorpho 2019-06 No 0.5 mg, Mem oria ne 07-27 Route: l 19:11: IVP, [place] 00 Q5Min, Dosing Weight 64.545, kg, PRN Pain Score 7-10, Start date: 05/26/20 13:11:00 ACCOUNT ADJUSTER, Duration: 4 doses or times, Stop date: Limited # of times Flumazenil 2019-06 No 0.2 mg, Anthony litzy 07-27 Route: l 19:11: IVP, PRN, Dosing Weight 64.545, kg, PRN Benzodiaze pine Reversal, Initial dose, Start date: 05/26/20 13:11:00 ACCOUNT ADJUSTER, Duration: 30 day, Stop date: 06/25/20 13:10:00 ACCOUNT ADJUSTER Naloxone 2019-06 No 0.4 mg, Memori a 07-27 Route: l 19:11: IVP, [place] 00 Q2MIN, Dosing Weight 64.545, kg, PRN Narcotic Reversal, Start date: 05/26/20 13:11:00 ACCOUNT ADJUSTER, Duration: 8 doses or times, Stop date: Limited # of times Ondansetron 2019-06 No 4 mg, Memor ia 2- Route: l 19:11: IVP, ONCE, [place] 00 Dosing Weight 64.545, kg, PRN Nausea & Vomiting, Start date: 05/26/20 13:11:00 ACCOUNT ADJUSTER Promethazin 2019-06 No 6.25 mg, Me moria e 2- Route: l 19:11: IVPB, [place] 00 ONCE, Dosing Weight 64.545, kg, PRN Nausea & Vomiting, Start date: 05/26/20 13:11:00 ACCOUNT ADJUSTER Hydralazine 2019- No 10 mg, Anthony litzy 2-03 Route: l 19:11: IVP, [place] 00 Q20Min, Dosing Weight 64.545, kg, PRN Elevated BP, Start date: 05/26/20 13:11:00 ACCOUNT ADJUSTER, Duration: 2 doses or times, Stop date: Limited # of times Labetalol 2019-06 No 10 mg, Memori a 2-03 Route: l 19:11: IVP, [place] 00 Q5Min, Dosing Weight 64.545, kg, PRN Elevated BP, Start date: 05/26/20 13:11:00 ACCOUNT ADJUSTER, Duration: 5 doses or times, Stop date: Limited # of times Acetaminoph 2019- No 1,000 mg, M emoria en 2-03 Route: PO, l 19:11: Drug form: [place] 00 TAB, ONCE, Dosing Weight 64.545, kg, PRN Pain Score 1-3, Start date: 05/26/20 13:11:00 ACCOUNT ADJUSTER Fentanyl 2019-06 No 25 Memoria 2-03 microgram, l 19:11: Route: [place] 00 IVP, Q5Min, Dosing Weight 64.545, kg, PRN Pain Score 4-6, Priority: Routine, Start date: 05/26/20 13:11:00 ACCOUNT ADJUSTER, Duration: 4 doses or times, Stop date: Limited # of times Hydromorpho 2019- No 0.5 mg, Mem oria ne 2-03 Route: l 19:11: IVP, [place] 00 Q5Min, Dosing Weight 64.545, kg, PRN Pain Score 7-10, Start date: 05/26/20 13:11:00 ACCOUNT ADJUSTER, Duration: 4 doses or times, Stop date: Limited # of times Flumazenil 2019- No 0.2 mg, Anthony litzy 2-03 Route: l 19:11: IVP, PRN, [place] 00 Dosing Weight 64.545, kg, PRN Benzodiaze pine Reversal, Initial dose, Start date: 05/26/20 13:11:00 ACCOUNT ADJUSTER, Duration: 30 day, Stop date: 06/25/20 13:10:00 ACCOUNT ADJUSTER Naloxone 2019-1 No 0.4 mg, Memori a - Route: l 19:11: IVP, [place] 00 Q2MIN, Dosing Weight 64.545, kg, PRN Narcotic Reversal, Start date: 05/26/20 13:11:00 ACCOUNT ADJUSTER, Duration: 8 doses or times, Stop date: Limited # of times Ondansetron 2019- No 4 mg, Memor ia 07-27 Route: l 19:11: IVP, ONCE, [place] 00 Dosing Weight 64.545, kg, PRN Nausea & Vomiting, Start date: 05/26/20 13:11:00 ACCOUNT ADJUSTER Promethazin 2019-06 No 6.25 mg, Me moria e 07-27 Route: l 19:11: IVPB, [place] 00 ONCE, Dosing Weight 64.545, kg, PRN Nausea & Vomiting, Start date: 05/26/20 13:11:00 ACCOUNT ADJUSTER Hydralazine 2019- No 10 mg, Anthony litzy 07-27 Route: l 19:11: IVP, [place] 00 Q20Min, Dosing Weight 64.545, kg, PRN Elevated BP, Start date: 05/26/20 13:11:00 ACCOUNT ADJUSTER, Duration: 2 doses or times, Stop date: Limited # of times Labetalol 2019-06 No 10 mg, Memori a 07-27 Route: l 19:11: IVP, [place] 00 Q5Min, Dosing Weight 64.545, kg, PRN Elevated BP, Start date: 05/26/20 13:11:00 ACCOUNT ADJUSTER, Duration: 5 doses or times, Stop date: Limited # of times Acetaminoph 2019-06 No 1,000 mg, M emoria en 2 Route: PO, l 19:11: Drug form: [place] 00 TAB, ONCE, Dosing Weight 64.545, kg, PRN Pain Score 1-3, Start date: 05/26/20 13:11:00 ACCOUNT ADJUSTER Fentanyl 2019- No 25 Memoria 2-03 microgram, l 19:11: Route: [place] 00 IVP, Q5Min, Dosing Weight 64.545, kg, PRN Pain Score 4-6, Priority: Routine, Start date: 05/26/20 13:11:00 ACCOUNT ADJUSTER, Duration: 4 doses or times, Stop date: Limited # of times Hydromorpho 2019-06 No 0.5 mg, Mem oria ne 07-27 Route: l 19:11: IVP, [place] 00 Q5Min, Dosing Weight 64.545, kg, PRN Pain Score 7-10, Start date: 05/26/20 13:11:00 ACCOUNT ADJUSTER, Duration: 4 doses or times, Stop date: Limited # of times Flumazenil 2019-06 No 0.2 mg, Anthony litzy 07-27 Route: l 19:11: IVP, PRN, Dosing Weight 64.545, kg, PRN Benzodiaze pine Reversal, Initial dose, Start date: 05/26/20 13:11:00 ACCOUNT ADJUSTER, Duration: 30 day, Stop date: 06/25/20 13:10:00 ACCOUNT ADJUSTER Naloxone 2019-06 No 0.4 mg, Memori a 07-27 Route: l 19:11: IVP, Lanexa 00 Q2MIN, Dosing Weight 64.545, kg, PRN Narcotic Reversal, Start date: 05/26/20 13:11:00 ACCOUNT ADJUSTER, Duration: 8 doses or times, Stop date: Limited # of times Ondansetron 2019-06 No 4 mg, Memor ia 07-27 Route: l 19:11: IVP, ONCE, Dosing Weight 64.545, kg, PRN Nausea & Vomiting, Start date: 05/26/20 13:11:00 ACCOUNT ADJUSTER Promethazin 2019-06 No 6.25 mg, Me moria e 07-27 Route: l 19:11: IVPB, 00 ONCE, Dosing Weight 64.545, kg, PRN Nausea & Vomiting, Start date: 05/26/20 13:11:00 ACCOUNT ADJUSTER ePHEDrine 2019-06 No Route: IV, Me moria (ANES) 07-27 Drug form: l 18:27: INJ, ONCE, Stop date: 05/26/20 12:27:00 ACCOUNT ADJUSTER ePHEDrine 2019-06 No Route: IV, Me moria (ANES) 07-27 Drug form: l 18:27: INJ, ONCE, Stop date: 05/26/20 12:27:00 ACCOUNT ADJUSTER ePHEDrine 2019-06 No Route: IV, Me moria (ANES) 07-27 Drug form: l 18:27: INJ, ONCE, Talon 00 Stop date: 05/26/20 12:27:00 ACCOUNT ADJUSTER ePHEDrine 2019-06 No Route: IV, Me moria (ANES) 2- Drug form: l 18:27: INJ, ONCE, Stop date: 05/26/20 12:27:00 ACCOUNT ADJUSTER ePHEDrine 2019- No Route: IV, Me moria (ANES) 2- Drug form: l 18:27: INJ, ONCE, Stop date: 05/26/20 12:27:00 ACCOUNT ADJUSTER dexamethaso 2019-06 No Route: IV, Memoria ne (ANES) 2- Drug form: l 17:57: INJ, ONCE, Stop date: 05/26/20 11:57:00 ACCOUNT ADJUSTER ondansetron 2019-06 No Route: IV, Memoria (ANES) 2- Drug form: l 17:57: INJ, ONCE, Stop date: 05/26/20 11:57:00 ACCOUNT ADJUSTER dexamethaso 2019-06 No Route: IV, Memoria ne (ANES) 2- Drug form: l 17:57: INJ, ONCE, Stop date: 05/26/20 11:57:00 ACCOUNT ADJUSTER ondansetron 2019-06 No Route: IV, Memoria (ANES) 2- Drug form: l 17:57: INJ, ONCE, Stop date: 05/26/20 11:57:00 ACCOUNT ADJUSTER dexamethaso 2019-06 No Route: IV, Memoria ne (ANES) 2- Drug form: l 17:57: INJ, ONCE, Stop date: 05/26/20 11:57:00 ACCOUNT ADJUSTER ondansetron 2019-06 No Route: IV, Memoria (ANES) 2- Drug form: l 17:57: INJ, ONCE, Stop date: 05/26/20 11:57:00 ACCOUNT ADJUSTER dexamethaso 2019- No Route: IV, Memoria ne (ANES) 2- Drug form: l 17:57: INJ, ONCE, Stop date: 05/26/20 11:57:00 ACCOUNT ADJUSTER ondansetron 2019-06 No Route: IV, Memoria (ANES) 2- Drug form: l 17:57: INJ, ONCE, Stop date: 05/26/20 11:57:00 ACCOUNT ADJUSTER dexamethaso 2019-06 No Route: IV, Memoria ne (ANES) 2- Drug form: l 17:57: INJ, ONCE, Stop date: 05/26/20 11:57:00 ACCOUNT ADJUSTER ondansetron 2019-06 No Route: IV, Memoria (ANES) 2- Drug form: l 17:57: INJ, ONCE, Stop date: 05/26/20 11:57:00 ACCOUNT ADJUSTER fentaNYL 2019-06 No Route: IV, Mem oria (ANES) 2- Drug form: l 17:52: INJ, ONCE, Stop date: 05/26/20 11:52:00 ACCOUNT ADJUSTER lidocaine 2019-06 No Route: IV, Me moria (ANES) 2- Drug form: l 17:52: INJ, ONCE, Stop date: 05/26/20 11:52:00 ACCOUNT ADJUSTER propofol 2019-06 No Route: IV, Mem oria (ANES) 2- Drug form: l 17:52: INJ, ONCE, Stop date: 05/26/20 11:52:00 ACCOUNT ADJUSTER rocuronium 2019-06 No Route: IV, M emoria (ANES) 2- Drug form: l 17:52: INJ, ONCE, Stop date: 05/26/20 11:52:00 ACCOUNT ADJUSTER ceFAZolin 2019-06 No Route: IV, Me moria (ANES) 2- Drug form: l 17:52: INJ, ONCE, Stop date: 05/26/20 11:52:00 ACCOUNT ADJUSTER norepinephr 2019-06 No Route: IV, Memoria ine (ANES) 2- Drug form: l 17:52: INJ, ONCE, Stop date: 05/26/20 11:52:00 ACCOUNT ADJUSTER fentaNYL 2019-06 No Route: IV, Mem oria (ANES) 2- Drug form: l 17:52: INJ, ONCE, Stop date: 05/26/20 11:52:00 ACCOUNT ADJUSTER lidocaine 2019-06 No Route: IV, Me moria (ANES) 2- Drug form: l 17:52: INJ, ONCE, Stop date: 05/26/20 11:52:00 ACCOUNT ADJUSTER propofol 2019-06 No Route: IV, Mem oria (ANES) 2- Drug form: l 17:52: INJ, ONCE, Stop date: 05/26/20 11:52:00 ACCOUNT ADJUSTER rocuronium 2019-06 No Route: IV, M emoria (ANES) 2- Drug form: l 17:52: INJ, ONCE, Stop date: 05/26/20 11:52:00 ACCOUNT ADJUSTER ceFAZolin 2019-06 No Route: IV, Me moria (ANES) 2- Drug form: l 17:52: INJ, ONCE, Stop date: 05/26/20 11:52:00 ACCOUNT ADJUSTER norepinephr 2019-06 No Route: IV, Memoria ine (ANES) 2- Drug form: l 17:52: INJ, ONCE, Stop date: 05/26/20 11:52:00 ACCOUNT ADJUSTER fentaNYL 2019-06 No Route: IV, Mem oria (ANES) 2- Drug form: l 17:52: INJ, ONCE, Stop date: 05/26/20 11:52:00 ACCOUNT ADJUSTER lidocaine 2019-06 No Route: IV, Me moria (ANES) 2- Drug form: l 17:52: INJ, ONCE, Stop date: 05/26/20 11:52:00 ACCOUNT ADJUSTER propofol 2019-06 No Route: IV, Mem oria (ANES) 2- Drug form: l 17:52: INJ, ONCE, Stop date: 05/26/20 11:52:00 ACCOUNT ADJUSTER rocuronium 2019-06 No Route: IV, M emoria (ANES) 2- Drug form: l 17:52: INJ, ONCE, Stop date: 05/26/20 11:52:00 ACCOUNT ADJUSTER ceFAZolin 2019-06 No Route: IV, Me moria (ANES) 2- Drug form: l 17:52: INJ, ONCE, Stop date: 05/26/20 11:52:00 ACCOUNT ADJUSTER norepinephr 2019-06 No Route: IV, Memoria ine (ANES) 2- Drug form: l 17:52: INJ, ONCE, Stop date: 05/26/20 11:52:00 ACCOUNT ADJUSTER fentaNYL 2019-06 No Route: IV, Mem oria (ANES) 2- Drug form: l 17:52: INJ, ONCE, Stop date: 05/26/20 11:52:00 ACCOUNT ADJUSTER lidocaine 2019-06 No Route: IV, Me moria (ANES) 2- Drug form: l 17:52: INJ, ONCE, Stop date: 05/26/20 11:52:00 ACCOUNT ADJUSTER propofol 2019-06 No Route: IV, Mem oria (ANES) 2- Drug form: l 17:52: INJ, ONCE, Stop date: 05/26/20 11:52:00 ACCOUNT ADJUSTER rocuronium 2019-06 No Route: IV, M emoria (ANES) 2- Drug form: l 17:52: INJ, ONCE, Stop date: 05/26/20 11:52:00 ACCOUNT ADJUSTER ceFAZolin 2019-06 No Route: IV, Me moria (ANES) 2- Drug form: l 17:52: INJ, ONCE, Stop date: 05/26/20 11:52:00 ACCOUNT ADJUSTER norepinephr 2019-06 No Route: IV, Memoria ine (ANES) 2- Drug form: l 17:52: INJ, ONCE, Stop date: 05/26/20 11:52:00 ACCOUNT ADJUSTER fentaNYL 2019-06 No Route: IV, Mem oria (ANES) 2- Drug form: l 17:52: INJ, ONCE, Stop date: 05/26/20 11:52:00 ACCOUNT ADJUSTER lidocaine 2019-06 No Route: IV, Me moria (ANES) 2- Drug form: l 17:52: INJ, ONCE, Stop date: 05/26/20 11:52:00 ACCOUNT ADJUSTER propofol 2019-06 No Route: IV, Mem oria (ANES) 2- Drug form: l 17:52: INJ, ONCE, Stop date: 05/26/20 11:52:00 ACCOUNT ADJUSTER rocuronium 2019-06 No Route: IV, M emoria (ANES) 2- Drug form: l 17:52: INJ, ONCE, Stop date: 05/26/20 11:52:00 ACCOUNT ADJUSTER ceFAZolin 2019-06 No Route: IV, Me moria (ANES) 07-27 Drug form: l 17:52: INJ, ONCE, Stop date: 05/26/20 11:52:00 ACCOUNT ADJUSTER norepinephr 2019-06 No Route: IV, Memoria ine (ANES) 07-27 Drug form: l 17:52: INJ, ONCE, Stop date: 05/26/20 11:52:00 ACCOUNT ADJUSTER vancomycin 2019-06 No Route: IV, M emoria (ANES) 1000 07-27 Drug form: l mg 16:50: INJ, Start date: 05/26/20 10:50:00 ACCOUNT ADJUSTER, Stop date: 05/26/20 11:50:00 ACCOUNT ADJUSTER Sodium 2019-06 No Route: IV, Memor ia Chloride 2-03 Total l 0.9% IV 16:50: Volume: Talon (ANES) 500 00 500, Start mL date: 05/26/20 10:50:00 ACCOUNT ADJUSTER, Stop date: 05/26/20 11:50:00 ACCOUNT ADJUSTER vancomycin 2019-06 No Route: IV, M emoria (ANES) 1000 07-27 Drug form: l mg 16:50: INJ, Start date: 05/26/20 10:50:00 ACCOUNT ADJUSTER, Stop date: 05/26/20 11:50:00 ACCOUNT ADJUSTER Sodium 2019-06 No Route: IV, Memor ia Chloride 2-03 Total l 0.9% IV 16:50: Volume: [place] (ANES) 500 00 500, Start mL date: 05/26/20 10:50:00 ACCOUNT ADJUSTER, Stop date: 05/26/20 11:50:00 ACCOUNT ADJUSTER vancomycin 2019-06 No Route: IV, M emoria (ANES) 1000 07-27 Drug form: l mg 16:50: INJ, Start date: 05/26/20 10:50:00 ACCOUNT ADJUSTER, Stop date: 05/26/20 11:50:00 ACCOUNT ADJUSTER Sodium 2019-06 No Route: IV, Memor ia Chloride 2-03 Total l 0.9% IV 16:50: Volume: [place] (ANES) 500 00 500, Start mL date: 05/26/20 10:50:00 ACCOUNT ADJUSTER, Stop date: 05/26/20 11:50:00 ACCOUNT ADJUSTER vancomycin 2019-06 No Route: IV, Keerthi perezria (ANES) 1000 2- Drug form: l mg 16:50: INJ, Start [place] 00 date: 05/26/20 10:50:00 ACCOUNT ADJUSTER, Stop date: 05/26/20 11:50:00 ACCOUNT ADJUSTER Sodium 2019-06 No Route: IV, Memor ia Chloride 2-03 Total l 0.9% IV 16:50: Volume: Talon (ANES) 500 00 500, Start mL date: 05/26/20 10:50:00 ACCOUNT ADJUSTER, Stop date: 05/26/20 11:50:00 ACCOUNT ADJUSTER vancomycin 2019-06 No Route: IV, Keerthi emoria (ANES) 1000 07-27 Drug form: l mg 16:50: INJ, Start Talon 00 date: 05/26/20 10:50:00 ACCOUNT ADJUSTER, Stop date: 05/26/20 11:50:00 ACCOUNT ADJUSTER Sodium 2019-06 No Route: IV, Memor ia Chloride 2-03 Total l 0.9% IV 16:50: Volume: [place] (ANES) 500 00 500, Start mL date: 05/26/20 10:50:00 ACCOUNT ADJUSTER, Stop date: 05/26/20 11:50:00 ACCOUNT ADJUSTER Calcium 2019-06 No 1,000 mL, Memor ia Chloride 2-03 Rate: 75 l 0.0014 15:44: ml/hr, Talon MEQ/ML / 00 Infuse Potassium over: 13.3 Chloride hr, Route: 0.004 IV, Dosing MEQ/ML / Weight Sodium 66.818 kg, Chloride Total 0.103 Volume: MEQ/ML / 1,000, Sodium Start Lactate date: 0.028 05/26/20 MEQ/ML 9:44:00 Injectable ACCOUNT ADJUSTER, Solution Duration: 30 day, Stop date: 06/25/20 9:43:00 ACCOUNT ADJUSTER, 1.74, m2 Sodium 2019-06 No 500 mL, Memoria Chloride 2-03 Rate: 75 l 0.9% IV 500 15:44: ml/hr, Herm vin mL 00 Infuse over: 6.7 hr, Route: IV, Dosing Weight 66.818 kg, Total Volume: 500, Start date: 05/26/20 9:44:00 ACCOUNT ADJUSTER, Duration: 30 day, Stop date: 06/25/20 9:43:00 ACCOUNT ADJUSTER, 1.74, m2 Calcium 2019-06 No 1,000 mL, Memor ia Chloride 2-03 Rate: 75 l 0.0014 15:44: ml/hr, [place] MEQ/ML / 00 Infuse Potassium over: 13.3 Chloride hr, Route: 0.004 IV, Dosing MEQ/ML / Weight Sodium 66.818 kg, Chloride Total 0.103 Volume: MEQ/ML / 1,000, Sodium Start Lactate date: 0.028 20 MEQ/ML 9:44:00 Injectable ACCOUNT ADJUSTER, Solution Duration: 30 day, Stop date: 06/25/20 9:43:00 ACCOUNT ADJUSTER, 1.74, m2 Sodium 2019-06 No 500 mL, Memoria Chloride 2-03 Rate: 75 l 0.9% IV 500 15:44: ml/hr, Herm vin mL 00 Infuse over: 6.7 hr, Route: IV, Dosing Weight 66.818 kg, Total Volume: 500, Start date: 05/26/20 9:44:00 ACCOUNT ADJUSTER, Duration: 30 day, Stop date: 06/25/20 9:43:00 ACCOUNT ADJUSTER, 1.74, m2 Calcium 2019-06 No 1,000 mL, Memor ia Chloride 2-03 Rate: 75 l 0.0014 15:44: ml/hr, [place] MEQ/ML / 00 Infuse Potassium over: 13.3 Chloride hr, Route: 0.004 IV, Dosing MEQ/ML / Weight Sodium 66.818 kg, Chloride Total 0.103 Volume: MEQ/ML / 1,000, Sodium Start Lactate date: 0.028 20 MEQ/ML 9:44:00 Injectable ACCOUNT ADJUSTER, Solution Duration: 30 day, Stop date: 06/25/20 9:43:00 ACCOUNT ADJUSTER, 1.74, m2 Sodium 2019-06 No 500 mL, Memoria Chloride 2-03 Rate: 75 l 0.9% IV 500 15:44: ml/hr, Herm vin mL 00 Infuse over: 6.7 hr, Route: IV, Dosing Weight 66.818 kg, Total Volume: 500, Start date: 05/26/20 9:44:00 ACCOUNT ADJUSTER, Duration: 30 day, Stop date: 06/25/20 9:43:00 ACCOUNT ADJUSTER, 1.74, m2 Calcium 2019-06 No 1,000 mL, Memor ia Chloride 2-03 Rate: 75 l 0.0014 15:44: ml/hr, [place] MEQ/ML / 00 Infuse Potassium over: 13.3 Chloride hr, Route: 0.004 IV, Dosing MEQ/ML / Weight Sodium 66.818 kg, Chloride Total 0.103 Volume: MEQ/ML / 1,000, Sodium Start Lactate date: 0.028 05/26/20 MEQ/ML 9:44:00 Injectable ACCOUNT ADJUSTER, Solution Duration: 30 day, Stop date: 06/25/20 9:43:00 ACCOUNT ADJUSTER, 1.74, m2 Sodium 2019-06 No 500 mL, Memoria Chloride 2-03 Rate: 75 l 0.9% IV 500 15:44: ml/hr, Herm vin mL 00 Infuse over: 6.7 hr, Route: IV, Dosing Weight 66.818 kg, Total Volume: 500, Start date: 05/26/20 9:44:00 ACCOUNT ADJUSTER, Duration: 30 day, Stop date: 06/25/20 9:43:00 ACCOUNT ADJUSTER, 1.74, m2 Calcium 2019-06 No 1,000 mL, Memor ia Chloride 2-03 Rate: 75 l 0.0014 15:44: ml/hr, [place] MEQ/ML / 00 Infuse Potassium over: 13.3 Chloride hr, Route: 0.004 IV, Dosing MEQ/ML / Weight Sodium 66.818 kg, Chloride Total 0.103 Volume: MEQ/ML / 1,000, Sodium Start Lactate date: 0.028 05/26/20 MEQ/ML 9:44:00 Injectable ACCOUNT ADJUSTER, Solution Duration: 30 day, Stop date: 06/25/20 9:43:00 ACCOUNT ADJUSTER, 1.74, m2 Sodium 2019-06 No 500 mL, Memoria Chloride 2-03 Rate: 75 l 0.9% IV 500 15:44: ml/hr, Herm vin mL 00 Infuse over: 6.7 hr, Route: IV, Dosing Weight 66.818 kg, Total Volume: 500, Start date: 05/26/20 9:44:00 ACCOUNT ADJUSTER, Duration: 30 day, Stop date: 06/25/20 9:43:00 ACCOUNT ADJUSTER, 1.74, m2 Vancomycin 2019-06 No 2000 mg: Me moria 2-02 infuse l 21:00: over 2.5 Tal[place] 00 hours For adult patients only: Round to nearest 250 mg per Medical Staff approval MEDICATION WASTE Product Size: 1000 mg Product Wasted: ___ mg Ancef + 2020- No Notes: Memoria sterile 2- (Same As: l water 20 mL 21:00: Ancef, Herm vin Kefzol) MEDICATION WASTE Product Size: 1000 mg Product Wasted: ___ mg Vancomycin 2020- No 2000 mg: Me moria 2- infuse l 21:00: over 2.5 [place] 00 hours For adult patients only: Round to nearest 250 mg per Medical Staff approval MEDICATION WASTE Product Size: 1000 mg Product Wasted: ___ mg Ancef + 2020- No Notes: Memoria sterile 2- (Same As: l water 20 mL 21:00: Ancef, Herm vin Kefzol) MEDICATION WASTE Product Size: 1000 mg Product Wasted: ___ mg Vancomycin 2020- No 2000 mg: Me moria 2- infuse l 21:00: over 2.5 Tal[place] 00 hours For adult patients only: Round to nearest 250 mg per Medical Staff approval MEDICATION WASTE Product Size: 1000 mg Product Wasted: ___ mg Ancef + 2020- No Notes: Memoria sterile 2- (Same As: l water 20 mL 21:00: Ancef, Herm vin Kefzol) MEDICATION WASTE Product Size: 1000 mg Product Wasted: ___ mg Vancomycin 2020- No 2000 mg: Me moria 2- infuse l 21:00: over 2.5 [place] 00 hours For adult patients only: Round to nearest 250 mg per Medical Staff approval MEDICATION WASTE Product Size: 1000 mg Product Wasted: ___ mg Ancef + 2020-1 No Notes: Memoria sterile 2- (Same As: l water 20 mL 21:00: Ancef, Herm vin 00 Kefzol) MEDICATION WASTE Product Size: 1000 mg Product Wasted: ___ mg Vancomycin 2020- No 2000 mg: Me moria 2-02 infuse l 21:00: over 2.5 [place] 00 hours For adult patients only: Round to nearest 250 mg per Medical Staff approval MEDICATION WASTE Product Size: 1000 mg Product Wasted: ___ mg Ancef + 2020- No Notes: Memoria sterile 2-02 (Same As: l water 20 mL 21:00: Ancef, Herm vin 00 Kefzol) MEDICATION WASTE Product Size: 1000 mg Product Wasted: ___ mg Sodium 2020-1 Yes 500 mL, Memoria Chloride 1-24 Infuse l 0.9% 21:27: Over: 20 [place] (Bolus) IV 00 minutes, Route: IV, ONCE, Dosing Weight 66.818 kg, Start date: 05/17/20 15:27:00 ACCOUNT ADJUSTER, Stop date: 05/17/20 15:27:00 ACCOUNT ADJUSTER Hydralazine 2019-06 No 10 mg, Anthony litzy 24 Route: l 21:27: IVP, [place] 00 Q20Min, Dosing Weight 66.818, kg, PRN Elevated BP, Start date: 05/17/20 15:27:00 ACCOUNT ADJUSTER, Duration: 2 doses or times, Stop date: Limited # of times Acetaminoph 2019- No 1,000 mg, M emoria en 24 Route: PO, l 21:27: Drug form: Tal[place] 00 TAB, ONCE, Dosing Weight 66.818, kg, PRN Pain Score 1-3, Start date: 05/17/20 15:27:00 ACCOUNT ADJUSTER Oxycodone 2019- No 5 mg, Memoria Hydrochlori 24 Route: PO, l de 5 MG 21:27: Drug form: Herm vin Oral Tablet 00 TAB, Q4H, Dosing Weight 66.818, kg, PRN Pain Score 4-6, Start date: 05/17/20 15:27:00 ACCOUNT ADJUSTER, Duration: 30 day, Stop date: 06/16/20 15:26:00 ACCOUNT ADJUSTER Morphine 2019- No 2 mg, Memoria 24 Route: l 21:27: IVP, [place] 00 Q5Min, Dosing Weight 66.818, kg, PRN Pain Score 4-6, Start date: 05/17/20 15:27:00 ACCOUNT ADJUSTER, Duration: 5 doses or times, Stop date: Limited # of times Fentanyl 2019-06 No 25 Memoria 1-24 microgram, l 21:27: Route: [place] 00 IVP, Q5Min, Dosing Weight 66.818, kg, PRN Pain Score 4-6, Priority: Routine, Start date: 05/17/20 15:27:00 ACCOUNT ADJUSTER, Duration: 4 doses or times, Stop date: Limited # of times Hydromorpho 2019- No 0.5 mg, Mem oria ne 07-17 Route: l 21:27: IVP, [place] 00 Q5Min, Dosing Weight 66.818, kg, PRN Pain Score 7-10, Start date: 05/17/20 15:27:00 ACCOUNT ADJUSTER, Duration: 4 doses or times, Stop date: Limited # of times Flumazenil 2019-06 No 0.2 mg, Anthony litzy 07-17 Route: l 21:27: IVP, PRN, [place] 00 Dosing Weight 66.818, kg, PRN Benzodiaze pine Reversal, Initial dose, Start date: 05/17/20 15:27:00 ACCOUNT ADJUSTER, Duration: 30 day, Stop date: 06/16/20 15:26:00 ACCOUNT ADJUSTER Naloxone 2019-06 No 0.4 mg, Memori a 07-17 Route: l 21:27: IVP, [place] 00 Q2MIN, Dosing Weight 66.818, kg, PRN Narcotic Reversal, Start date: 05/17/20 15:27:00 ACCOUNT ADJUSTER, Duration: 8 doses or times, Stop date: Limited # of times Ephedrine 2019-06 No 5 mg, Memoria 07-17 Route: l 21:27: IVP, [place] 00 Q5Min, Dosing Weight 66.818, kg, PRN Low Blood Pressure, Start date: 05/17/20 15:27:00 ACCOUNT ADJUSTER, Duration: 30 day, Stop date: 06/16/20 15:26:00 ACCOUNT ADJUSTER Albuterol 2019-06 No 2.49 mg, Anthony litzy 0.83 MG/ML 07-17 Route: l Inhalant 21:27: NEB, Talon Solution 00 Q20Min, Dosing Weight 66.818, kg, PRN Wheezing, Priority: STAT, Start date: 05/17/20 15:27:00 ACCOUNT ADJUSTER, Duration: 30 day, Stop date: 06/16/20 15:26:00 ACCOUNT ADJUSTER Diphenhydra 2019-06 No 12.5 mg, Me moria mine 07-17 Route: l 21:27: IVP, Drug [place] 00 form: INJ, Q6H, Dosing Weight 66.818, kg, PRN Itching, Start date: 05/17/20 15:27:00 ACCOUNT ADJUSTER, Duration: 30 day, Stop date: 06/16/20 15:26:00 ACCOUNT ADJUSTER Ondansetron 2019- No 4 mg, Memor ia 07-17 Route: l 21:27: IVP, ONCE, [place] 00 Dosing Weight 66.818, kg, PRN Nausea & Vomiting, Start date: 05/17/20 15:27:00 ACCOUNT ADJUSTER Sodium 2019- Yes 500 mL, Memoria Chloride 07-17 Infuse l 0.9% 21:27: Over: 20 [place] (Bolus) IV 00 minutes, Route: IV, ONCE, Dosing Weight 66.818 kg, Start date: 05/17/20 15:27:00 ACCOUNT ADJUSTER, Stop date: 05/17/20 15:27:00 ACCOUNT ADJUSTER Hydralazine 2019- No 10 mg, Anthony litzy 07-17 Route: l 21:27: IVP, [place] 00 Q20Min, Dosing Weight 66.818, kg, PRN Elevated BP, Start date: 05/17/20 15:27:00 ACCOUNT ADJUSTER, Duration: 2 doses or times, Stop date: Limited # of times Acetaminoph 2019- No 1,000 mg, M emoria en 07-17 Route: PO, l 21:27: Drug form: [place] 00 TAB, ONCE, Dosing Weight 66.818, kg, PRN Pain Score 1-3, Start date: 05/17/20 15:27:00 ACCOUNT ADJUSTER Oxycodone 2019- No 5 mg, Memoria Hydrochlori 07-17 Route: PO, l de 5 MG 21:27: Drug form: Herm vin Oral Tablet 00 TAB, Q4H, Dosing Weight 66.818, kg, PRN Pain Score 4-6, Start date: 05/17/20 15:27:00 ACCOUNT ADJUSTER, Duration: 30 day, Stop date: 06/16/20 15:26:00 ACCOUNT ADJUSTER Morphine 2019- No 2 mg, Memoria 24 Route: l 21:27: IVP, [place] 00 Q5Min, Dosing Weight 66.818, kg, PRN Pain Score 4-6, Start date: 05/17/20 15:27:00 ACCOUNT ADJUSTER, Duration: 5 doses or times, Stop date: Limited # of times Fentanyl 2019- No 25 Memoria 1-24 microgram, l 21:27: Route: [place] 00 IVP, Q5Min, Dosing Weight 66.818, kg, PRN Pain Score 4-6, Priority: Routine, Start date: 05/17/20 15:27:00 ACCOUNT ADJUSTER, Duration: 4 doses or times, Stop date: Limited # of times Hydromorpho 2019-06 No 0.5 mg, Mem oria ne 07-17 Route: l 21:27: IVP, [place] 00 Q5Min, Dosing Weight 66.818, kg, PRN Pain Score 7-10, Start date: 05/17/20 15:27:00 ACCOUNT ADJUSTER, Duration: 4 doses or times, Stop date: Limited # of times Flumazenil 2019-06 No 0.2 mg, Anthony litzy 07-17 Route: l 21:27: IVP, PRN, [place] 00 Dosing Weight 66.818, kg, PRN Benzodiaze pine Reversal, Initial dose, Start date: 05/17/20 15:27:00 ACCOUNT ADJUSTER, Duration: 30 day, Stop date: 06/16/20 15:26:00 ACCOUNT ADJUSTER Naloxone 2019-06 No 0.4 mg, Memori a 07-17 Route: l 21:27: IVP, [place] 00 Q2MIN, Dosing Weight 66.818, kg, PRN Narcotic Reversal, Start date: 05/17/20 15:27:00 ACCOUNT ADJUSTER, Duration: 8 doses or times, Stop date: Limited # of times Ephedrine 2019-06 No 5 mg, Memoria 07-17 Route: l 21:27: IVP, [place] 00 Q5Min, Dosing Weight 66.818, kg, PRN Low Blood Pressure, Start date: 05/17/20 15:27:00 ACCOUNT ADJUSTER, Duration: 30 day, Stop date: 06/16/20 15:26:00 ACCOUNT ADJUSTER Albuterol 2019-06 No 2.49 mg, Anthony litzy 0.83 MG/ML 07-17 Route: l Inhalant 21:27: NEB, [place] Solution 00 Q20Min, Dosing Weight 66.818, kg, PRN Wheezing, Priority: STAT, Start date: 05/17/20 15:27:00 ACCOUNT ADJUSTER, Duration: 30 day, Stop date: 06/16/20 15:26:00 ACCOUNT ADJUSTER Diphenhydra 2019- No 12.5 mg, Me moria mine 07-17 Route: l 21:27: IVP, Drug [place] 00 form: INJ, Q6H, Dosing Weight 66.818, kg, PRN Itching, Start date: 05/17/20 15:27:00 ACCOUNT ADJUSTER, Duration: 30 day, Stop date: 06/16/20 15:26:00 ACCOUNT ADJUSTER Ondansetron 2019- No 4 mg, Memor ia 07-17 Route: l 21:27: IVP, ONCE, Talon 00 Dosing Weight 66.818, kg, PRN Nausea & Vomiting, Start date: 05/17/20 15:27:00 ACCOUNT ADJUSTER Sodium 2019- Yes 500 mL, Memoria Chloride 07-17 Infuse l 0.9% 21:27: Over: 20 [place] (Bolus) IV 00 minutes, Route: IV, ONCE, Dosing Weight 66.818 kg, Start date: 05/17/20 15:27:00 ACCOUNT ADJUSTER, Stop date: 05/17/20 15:27:00 ACCOUNT ADJUSTER Hydralazine 2019-06 No 10 mg, Anthony litzy 07-17 Route: l 21:27: IVP, [place] 00 Q20Min, Dosing Weight 66.818, kg, PRN Elevated BP, Start date: 05/17/20 15:27:00 ACCOUNT ADJUSTER, Duration: 2 doses or times, Stop date: Limited # of times Acetaminoph 2019- No 1,000 mg, M emoria en 07-17 Route: PO, l 21:27: Drug form: [place] 00 TAB, ONCE, Dosing Weight 66.818, kg, PRN Pain Score 1-3, Start date: 05/17/20 15:27:00 ACCOUNT ADJUSTER Oxycodone 2019- No 5 mg, Memoria Hydrochlori 07-17 Route: PO, l de 5 MG 21:27: Drug form: Herm vin Oral Tablet 00 TAB, Q4H, Dosing Weight 66.818, kg, PRN Pain Score 4-6, Start date: 05/17/20 15:27:00 ACCOUNT ADJUSTER, Duration: 30 day, Stop date: 06/16/20 15:26:00 ACCOUNT ADJUSTER Morphine 2019- No 2 mg, Memoria 24 Route: l 21:27: IVP, [place] 00 Q5Min, Dosing Weight 66.818, kg, PRN Pain Score 4-6, Start date: 05/17/20 15:27:00 ACCOUNT ADJUSTER, Duration: 5 doses or times, Stop date: Limited # of times Fentanyl 2019-06 No 25 Memoria 1-24 microgram, l 21:27: Route: [place] 00 IVP, Q5Min, Dosing Weight 66.818, kg, PRN Pain Score 4-6, Priority: Routine, Start date: 05/17/20 15:27:00 ACCOUNT ADJUSTER, Duration: 4 doses or times, Stop date: Limited # of times Hydromorpho 2019-06 No 0.5 mg, Mem oria ne 24 Route: l 21:27: IVP, [place] 00 Q5Min, Dosing Weight 66.818, kg, PRN Pain Score 7-10, Start date: 05/17/20 15:27:00 ACCOUNT ADJUSTER, Duration: 4 doses or times, Stop date: Limited # of times Flumazenil 2019-06 No 0.2 mg, Anthony litzy 24 Route: l 21:27: IVP, PRN, [place] 00 Dosing Weight 66.818, kg, PRN Benzodiaze pine Reversal, Initial dose, Start date: 05/17/20 15:27:00 ACCOUNT ADJUSTER, Duration: 30 day, Stop date: 06/16/20 15:26:00 ACCOUNT ADJUSTER Naloxone 2019-06 No 0.4 mg, Memori a 24 Route: l 21:27: IVP, [place] 00 Q2MIN, Dosing Weight 66.818, kg, PRN Narcotic Reversal, Start date: 05/17/20 15:27:00 ACCOUNT ADJUSTER, Duration: 8 doses or times, Stop date: Limited # of times Ephedrine 2019-06 No 5 mg, Memoria -24 Route: l 21:27: IVP, [place] 00 Q5Min, Dosing Weight 66.818, kg, PRN Low Blood Pressure, Start date: 05/17/20 15:27:00 ACCOUNT ADJUSTER, Duration: 30 day, Stop date: 06/16/20 15:26:00 ACCOUNT ADJUSTER Albuterol 2019- No 2.49 mg, Anthony litzy 0.83 MG/ML 1-24 Route: l Inhalant 21:27: NEB, [place] Solution 00 Q20Min, Dosing Weight 66.818, kg, PRN Wheezing, Priority: STAT, Start date: 05/17/20 15:27:00 ACCOUNT ADJUSTER, Duration: 30 day, Stop date: 06/16/20 15:26:00 ACCOUNT ADJUSTER Diphenhydra 2019- No 12.5 mg, Me moria mine 07-17 Route: l 21:27: IVP, Drug [place] form: INJ, Q6H, Dosing Weight 66.818, kg, PRN Itching, Start date: 05/17/20 15:27:00 ACCOUNT ADJUSTER, Duration: 30 day, Stop date: 06/16/20 15:26:00 ACCOUNT ADJUSTER Ondansetron 2019- No 4 mg, Memor ia 07-17 Route: l 21:27: IVP, ONCE, Talon Dosing Weight 66.818, kg, PRN Nausea & Vomiting, Start date: 05/17/20 15:27:00 ACCOUNT ADJUSTER Sodium 2019- Yes 500 mL, Memoria Chloride 07-17 Infuse l 0.9% 21:27: Over: 20 [place] (Bolus) IV 00 minutes, Route: IV, ONCE, Dosing Weight 66.818 kg, Start date: 05/17/20 15:27:00 ACCOUNT ADJUSTER, Stop date: 05/17/20 15:27:00 ACCOUNT ADJUSTER Hydralazine 2019-06 No 10 mg, Anthony litzy 07-17 Route: l 21:27: IVP, [place] 00 Q20Min, Dosing Weight 66.818, kg, PRN Elevated BP, Start date: 05/17/20 15:27:00 ACCOUNT ADJUSTER, Duration: 2 doses or times, Stop date: Limited # of times Acetaminoph 2019- No 1,000 mg, M emoria en 07-17 Route: PO, l 21:27: Drug form: [place] 00 TAB, ONCE, Dosing Weight 66.818, kg, PRN Pain Score 1-3, Start date: 05/17/20 15:27:00 ACCOUNT ADJUSTER Oxycodone 2019- No 5 mg, Memoria Hydrochlori 24 Route: PO, l de 5 MG 21:27: Drug form: Herm vin Oral Tablet 00 TAB, Q4H, Dosing Weight 66.818, kg, PRN Pain Score 4-6, Start date: 05/17/20 15:27:00 ACCOUNT ADJUSTER, Duration: 30 day, Stop date: 06/16/20 15:26:00 ACCOUNT ADJUSTER Morphine 2020-1 No 2 mg, Memoria 1-24 Route: l 21:27: IVP, [place] 00 Q5Min, Dosing Weight 66.818, kg, PRN Pain Score 4-6, Start date: 05/17/20 15:27:00 ACCOUNT ADJUSTER, Duration: 5 doses or times, Stop date: Limited # of times Fentanyl 2020- No 25 Memoria 1-24 microgram, l 21:27: Route: [place] 00 IVP, Q5Min, Dosing Weight 66.818, kg, PRN Pain Score 4-6, Priority: Routine, Start date: 05/17/20 15:27:00 ACCOUNT ADJUSTER, Duration: 4 doses or times, Stop date: Limited # of times Hydromorpho 2019- No 0.5 mg, Mem oria ne 07-17 Route: l 21:27: IVP, Talon 00 Q5Min, Dosing Weight 66.818, kg, PRN Pain Score 7-10, Start date: 05/17/20 15:27:00 ACCOUNT ADJUSTER, Duration: 4 doses or times, Stop date: Limited # of times Flumazenil 2020-1 No 0.2 mg, Anthony litzy 24 Route: l 21:27: IVP, PRN, [place] 00 Dosing Weight 66.818, kg, PRN Benzodiaze pine Reversal, Initial dose, Start date: 05/17/20 15:27:00 ACCOUNT ADJUSTER, Duration: 30 day, Stop date: 06/16/20 15:26:00 ACCOUNT ADJUSTER Naloxone 2020-1 No 0.4 mg, Memori a -24 Route: l 21:27: IVP, Talon 00 Q2MIN, Dosing Weight 66.818, kg, PRN Narcotic Reversal, Start date: 05/17/20 15:27:00 ACCOUNT ADJUSTER, Duration: 8 doses or times, Stop date: Limited # of times Ephedrine 2020-1 No 5 mg, Memoria -24 Route: l 21:27: IVP, [place] 00 Q5Min, Dosing Weight 66.818, kg, PRN Low Blood Pressure, Start date: 05/17/20 15:27:00 ACCOUNT ADJUSTER, Duration: 30 day, Stop date: 06/16/20 15:26:00 ACCOUNT ADJUSTER Albuterol 2019-06 No 2.49 mg, Anthony litzy 0.83 MG/ML 07-17 Route: l Inhalant 21:27: NEB, Talon Solution 00 Q20Min, Dosing Weight 66.818, kg, PRN Wheezing, Priority: STAT, Start date: 05/17/20 15:27:00 ACCOUNT ADJUSTER, Duration: 30 day, Stop date: 06/16/20 15:26:00 ACCOUNT ADJUSTER Diphenhydra 2019-06 No 12.5 mg, Me moria mine 07-17 Route: l 21:27: IVP, Drug [place] 00 form: INJ, Q6H, Dosing Weight 66.818, kg, PRN Itching, Start date: 05/17/20 15:27:00 ACCOUNT ADJUSTER, Duration: 30 day, Stop date: 06/16/20 15:26:00 ACCOUNT ADJUSTER Ondansetron 2019-06 No 4 mg, Memor ia 07-17 Route: l 21:27: IVP, ONCE, [place] Dosing Weight 66.818, kg, PRN Nausea & Vomiting, Start date: 05/17/20 15:27:00 ACCOUNT ADJUSTER Sodium 2019-06 Yes 500 mL, Memoria Chloride 07-17 Infuse l 0.9% 21:27: Over: 20 [place] (Bolus) IV 00 minutes, Route: IV, ONCE, Dosing Weight 66.818 kg, Start date: 05/17/20 15:27:00 ACCOUNT ADJUSTER, Stop date: 05/17/20 15:27:00 ACCOUNT ADJUSTER Hydralazine 2019-06 No 10 mg, Anthony litzy 07-17 Route: l 21:27: IVP, Talon 00 Q20Min, Dosing Weight 66.818, kg, PRN Elevated BP, Start date: 05/17/20 15:27:00 ACCOUNT ADJUSTER, Duration: 2 doses or times, Stop date: Limited # of times Acetaminoph 2019-06 No 1,000 mg, M emoria en 07-17 Route: PO, l 21:27: Drug form: [place] 00 TAB, ONCE, Dosing Weight 66.818, kg, PRN Pain Score 1-3, Start date: 05/17/20 15:27:00 ACCOUNT ADJUSTER Oxycodone 2019- No 5 mg, Memoria Hydrochlori 24 Route: PO, l de 5 MG 21:27: Drug form: Herm vin Oral Tablet 00 TAB, Q4H, Dosing Weight 66.818, kg, PRN Pain Score 4-6, Start date: 05/17/20 15:27:00 ACCOUNT ADJUSTER, Duration: 30 day, Stop date: 06/16/20 15:26:00 ACCOUNT ADJUSTER Morphine 2019- No 2 mg, Memoria 07-17 Route: l 21:27: IVP, [place] 00 Q5Min, Dosing Weight 66.818, kg, PRN Pain Score 4-6, Start date: 05/17/20 15:27:00 ACCOUNT ADJUSTER, Duration: 5 doses or times, Stop date: Limited # of times Fentanyl 2019-06 No 25 Memoria -24 microgram, l 21:27: Route: [place] 00 IVP, Q5Min, Dosing Weight 66.818, kg, PRN Pain Score 4-6, Priority: Routine, Start date: 05/17/20 15:27:00 ACCOUNT ADJUSTER, Duration: 4 doses or times, Stop date: Limited # of times Hydromorpho 2019-06 No 0.5 mg, Mem oria ne 07-17 Route: l 21:27: IVP, [place] 00 Q5Min, Dosing Weight 66.818, kg, PRN Pain Score 7-10, Start date: 05/17/20 15:27:00 ACCOUNT ADJUSTER, Duration: 4 doses or times, Stop date: Limited # of times Flumazenil 2019-06 No 0.2 mg, Anthony litzy 07-17 Route: l 21:27: IVP, PRN, [place] 00 Dosing Weight 66.818, kg, PRN Benzodiaze pine Reversal, Initial dose, Start date: 05/17/20 15:27:00 ACCOUNT ADJUSTER, Duration: 30 day, Stop date: 06/16/20 15:26:00 ACCOUNT ADJUSTER Naloxone 2019- No 0.4 mg, Memori a 07-17 Route: l 21:27: IVP, [place] 00 Q2MIN, Dosing Weight 66.818, kg, PRN Narcotic Reversal, Start date: 05/17/20 15:27:00 ACCOUNT ADJUSTER, Duration: 8 doses or times, Stop date: Limited # of times Ephedrine 2019-06 No 5 mg, Memoria 07-17 Route: l 21:27: IVP, [place] 00 Q5Min, Dosing Weight 66.818, kg, PRN Low Blood Pressure, Start date: 05/17/20 15:27:00 ACCOUNT ADJUSTER, Duration: 30 day, Stop date: 06/16/20 15:26:00 ACCOUNT ADJUSTER Albuterol 2019-06 No 2.49 mg, Anthony litzy 0.83 MG/ML 07-17 Route: l Inhalant 21:27: NEB, [place] Solution 00 Q20Min, Dosing Weight 66.818, kg, PRN Wheezing, Priority: STAT, Start date: 05/17/20 15:27:00 ACCOUNT ADJUSTER, Duration: 30 day, Stop date: 06/16/20 15:26:00 ACCOUNT ADJUSTER Diphenhydra 2019-06 No 12.5 mg, Me moria mine 07-17 Route: l 21:27: IVP, Drug form: INJ, Q6H, Dosing Weight 66.818, kg, PRN Itching, Start date: 05/17/20 15:27:00 ACCOUNT ADJUSTER, Duration: 30 day, Stop date: 06/16/20 15:26:00 ACCOUNT ADJUSTER Ondansetron 2019-06 No 4 mg, Memor ia 07-17 Route: l 21:27: IVP, ONCE, Dosing Weight 66.818, kg, PRN Nausea & Vomiting, Start date: 05/17/20 15:27:00 ACCOUNT ADJUSTER fentaNYL 2019-06 No Route: IV, Mem oria (ANES) 07-17 Drug form: l 18:18: INJ, ONCE, [place] 00 Stop date: 05/17/20 12:18:00 ACCOUNT ADJUSTER propofol 2019-06 No Route: IV, Mem oria (ANES) 07-17 Drug form: l 18:18: INJ, ONCE, Talon Stop date: 05/17/20 12:18:00 ACCOUNT ADJUSTER fentaNYL 2019-06 No Route: IV, Mem oria (ANES) 07-17 Drug form: l 18:18: INJ, ONCE, [place] Stop date: 05/17/20 12:18:00 ACCOUNT ADJUSTER propofol 2019-06 No Route: IV, Mem oria (ANES) 07-17 Drug form: l 18:18: INJ, ONCE, [place] 00 Stop date: 05/17/20 12:18:00 ACCOUNT ADJUSTER fentaNYL 2019-06 No Route: IV, Mem oria (ANES) - Drug form: l 18:18: INJ, ONCE, [place] 00 Stop date: 05/17/20 12:18:00 ACCOUNT ADJUSTER propofol 2019-06 No Route: IV, Mem oria (ANES) 07-17 Drug form: l 18:18: INJ, ONCE, Stop date: 05/17/20 12:18:00 ACCOUNT ADJUSTER fentaNYL 2019-06 No Route: IV, Mem oria (ANES) 07-17 Drug form: l 18:18: INJ, ONCE, Stop date: 05/17/20 12:18:00 ACCOUNT ADJUSTER propofol 2019-06 No Route: IV, Mem oria (ANES) 07-17 Drug form: l 18:18: INJ, ONCE, Stop date: 05/17/20 12:18:00 ACCOUNT ADJUSTER fentaNYL 2019-06 No Route: IV, Mem oria (ANES) 07-17 Drug form: l 18:18: INJ, ONCE, Stop date: 05/17/20 12:18:00 ACCOUNT ADJUSTER propofol 2019-06 No Route: IV, Mem oria (ANES) 07-17 Drug form: l 18:18: INJ, ONCE, Stop date: 05/17/20 12:18:00 ACCOUNT ADJUSTER ceFAZolin 2019-06 No Route: IV, Me moria (ANES) 07-17 Drug form: l 18:08: INJ, ONCE, Stop date: 05/17/20 12:08:00 ACCOUNT ADJUSTER Sodium 2019-06 No Route: IV, Memor ia Chloride -24 Total l 0.9% IV 18:08: Volume: [place] (ANES) 500 00 500, Start mL date: 05/17/20 12:08:00 ACCOUNT ADJUSTER, Stop date: 05/17/20 13:08:00 ACCOUNT ADJUSTER ceFAZolin 2019-06 No Route: IV, Me moria (ANES) 124 Drug form: l 18:08: INJ, ONCE, Stop date: 05/17/20 12:08:00 ACCOUNT ADJUSTER Sodium 2020 No Route: IV, Memor ia Chloride 1-24 Total l 0.9% IV 18:08: Volume: [place] (ANES) 500 500, Start mL date: 05/17/20 12:08:00 ACCOUNT ADJUSTER, Stop date: 05/17/20 13:08:00 ACCOUNT ADJUSTER ceFAZolin 2020- No Route: IV, Me moria (ANES) 1-24 Drug form: l 18:08: INJ, ONCE, Talon Stop date: 05/17/20 12:08:00 ACCOUNT ADJUSTER Sodium 2020- No Route: IV, Memor ia Chloride 1-24 Total l 0.9% IV 18:08: Volume: [place] (ANES) 500 500, Start mL date: 05/17/20 12:08:00 ACCOUNT ADJUSTER, Stop date: 05/17/20 13:08:00 ACCOUNT ADJUSTER ceFAZolin 2020- No Route: IV, Me moria (ANES) 1-24 Drug form: l 18:08: INJ, ONCE, [place] 00 Stop date: 05/17/20 12:08:00 ACCOUNT ADJUSTER Sodium 2020- No Route: IV, Memor ia Chloride 1-24 Total l 0.9% IV 18:08: Volume: [place] (ANES) 500 500, Start mL date: 05/17/20 12:08:00 ACCOUNT ADJUSTER, Stop date: 05/17/20 13:08:00 ACCOUNT ADJUSTER ceFAZolin 2020- No Route: IV, Me moria (ANES) 1-24 Drug form: l 18:08: INJ, ONCE, [place] 00 Stop date: 05/17/20 12:08:00 ACCOUNT ADJUSTER Sodium 2020- No Route: IV, Memor ia Chloride 1-24 Total l 0.9% IV 18:08: Volume: [place] (ANES) 500 500, Start mL date: 05/17/20 12:08:00 ACCOUNT ADJUSTER, Stop date: 05/17/20 13:08:00 ACCOUNT ADJUSTER midazolam 2020-1 No Route: IV, Me moria (ANES) 1-24 Drug form: l 18:03: SOLN, [place] ONCE, Stop date: 05/17/20 12:03:00 ACCOUNT ADJUSTER midazolam 2020-1 No Route: IV, Me moria (ANES) 1-24 Drug form: l 18:03: SOLN, [place] 00 ONCE, Stop date: 05/17/20 12:03:00 ACCOUNT ADJUSTER midazolam 2019-06 No Route: IV, moria (ANES) 07-17 Drug form: l 18:03: SOLN, [place] 00 ONCE, Stop date: 05/17/20 12:03:00 ACCOUNT ADJUSTER midazolam 2019-06 No Route: IV, moria (ANES) 07-17 Drug form: l 18:03: SOLN, [place] 00 ONCE, Stop date: 05/17/20 12:03:00 ACCOUNT ADJUSTER midazolam 2019-06 No Route: IV, moria (ANES) 07-17 Drug form: l 18:03: SOLN, [place] 00 ONCE, Stop date: 05/17/20 12:03:00 ACCOUNT ADJUSTER vancomycin 2019-06 No Route: IV, Keerthi emoria (ANES) 1000 07-17 Drug form: l mg 17:46: INJ, date: 05/17/20 11:46:00 ACCOUNT ADJUSTER, Stop date: 05/17/20 12:46:00 ACCOUNT ADJUSTER vancomycin 2019-06 No Route: IV, Keerthi perezria (ANES) 1000 07-17 Drug form: l mg 17:46: INJ, date: 05/17/20 11:46:00 ACCOUNT ADJUSTER, Stop date: 05/17/20 12:46:00 ACCOUNT ADJUSTER vancomycin 2019-06 No Route: IV, Keerthi emoria (ANES) 1000 07-17 Drug form: l mg 17:46: INJ, date: 05/17/20 11:46:00 ACCOUNT ADJUSTER, Stop date: 05/17/20 12:46:00 ACCOUNT ADJUSTER vancomycin 2019-06 No Route: IV, Keerthi emoria (ANES) 1000 07-17 Drug form: l mg 17:46: INJ, date: 05/17/20 11:46:00 ACCOUNT ADJUSTER, Stop date: 05/17/20 12:46:00 ACCOUNT ADJUSTER vancomycin 2019-06 No Route: IV, Keerthi emoria (ANES) 1000 07-17 Drug form: l mg 17:46: INJ, date: 05/17/20 11:46:00 ACCOUNT ADJUSTER, Stop date: 05/17/20 12:46:00 ACCOUNT ADJUSTER Calcium 2019-06 No 1,000 mL, Memor ia Chloride 07-17 Rate: 75 l 0.0014 16:07: ml/hr, [place] MEQ/ML / 00 Infuse Potassium over: 13.3 Chloride hr, Route: 0.004 IV, Dosing MEQ/ML / Weight Sodium 66.818 kg, Chloride Total 0.103 Volume: MEQ/ML / 1,000, Sodium Start Lactate date: 0.028 20 MEQ/ML 10:07:00 Injectable ACCOUNT ADJUSTER, Solution Duration: 30 day, Stop date: 06/16/20 10:06:00 ACCOUNT ADJUSTER, 1.74, m2 Calcium 2020-1 No 1,000 mL, Memor ia Chloride 1-24 Rate: 75 l 0.0014 16:07: ml/hr, [place] MEQ/ML / 00 Infuse Potassium over: 13.3 Chloride hr, Route: 0.004 IV, Dosing MEQ/ML / Weight Sodium 66.818 kg, Chloride Total 0.103 Volume: MEQ/ML / 1,000, Sodium Start Lactate date: 0.028 20 MEQ/ML 10:07:00 Injectable ACCOUNT ADJUSTER, Solution Duration: 30 day, Stop date: 06/16/20 10:06:00 ACCOUNT ADJUSTER, 1.74, m2 Calcium 2019-1 No 1,000 mL, Memor ia Chloride 1-24 Rate: 75 l 0.0014 16:07: ml/hr, [place] MEQ/ML / 00 Infuse Potassium over: 13.3 Chloride hr, Route: 0.004 IV, Dosing MEQ/ML / Weight Sodium 66.818 kg, Chloride Total 0.103 Volume: MEQ/ML / 1,000, Sodium Start Lactate date: 0.028 20 MEQ/ML 10:07:00 Injectable ACCOUNT ADJUSTER, Solution Duration: 30 day, Stop date: 06/16/20 10:06:00 ACCOUNT ADJUSTER, 1.74, m2 Calcium 2020-1 No 1,000 mL, Memor ia Chloride 1-24 Rate: 75 l 0.0014 16:07: ml/hr, [place] MEQ/ML / 00 Infuse Potassium over: 13.3 Chloride hr, Route: 0.004 IV, Dosing MEQ/ML / Weight Sodium 66.818 kg, Chloride Total 0.103 Volume: MEQ/ML / 1,000, Sodium Start Lactate date: 0.028 20 MEQ/ML 10:07:00 Injectable ACCOUNT ADJUSTER, Solution Duration: 30 day, Stop date: 06/16/20 10:06:00 ACCOUNT ADJUSTER, 1.74, m2 Calcium 2019-1 No 1,000 mL, Memor ia Chloride 07-17 Rate: 75 l 0.0014 16:07: ml/hr, [place] MEQ/ML / 00 Infuse Potassium over: 13.3 Chloride hr, Route: 0.004 IV, Dosing MEQ/ML / Weight Sodium 66.818 kg, Chloride Total 0.103 Volume: MEQ/ML / 1,000, Sodium Start Lactate date: 0.028 05/17/20 MEQ/ML 10:07:00 Injectable ACCOUNT ADJUSTER, Solution Duration: 30 day, Stop date: 06/16/20 10:06:00 ACCOUNT ADJUSTER, 1.74, m2 Vancomycin 2019-1 No 1 gm, Memori a 07-16 Route: l 23:00: IVPB, Drug [place] 00 form: INJ, PRE OP, Dosing Weight 63.636, kg, Start date: 05/16/20 17:00:00 ACCOUNT ADJUSTER, Duration: 1 day, Stop date: 05/17/20 16:59:00 ACCOUNT ADJUSTER, ABX Indication : Surgical Prophylaxi s Ancef 2019-1 No 2 gm, Memoria 07-16 Route: l 23:00: IVPB, PRE [place] 00 OP, Dosing Weight 63.636, kg, Start date: 05/16/20 17:00:00 ACCOUNT ADJUSTER, Duration: 1 day, Stop date: 05/17/20 16:59:00 ACCOUNT ADJUSTER, ABX Indication : Surgical Prophylaxi s Vancomycin 2019-1 No 1 gm, Memori a 07-16 Route: l 23:00: IVPB, Drug [place] form: INJ, PRE OP, Dosing Weight 63.636, kg, Start date: 05/16/20 17:00:00 ACCOUNT ADJUSTER, Duration: 1 day, Stop date: 05/17/20 16:59:00 ACCOUNT ADJUSTER, ABX Indication : Surgical Prophylaxi s Ancef 2020-1 No 2 gm, Memoria 07-16 Route: l 23:00: IVPB, PRE [place] 00 OP, Dosing Weight 63.636, kg, Start date: 05/16/20 17:00:00 ACCOUNT ADJUSTER, Duration: 1 day, Stop date: 05/17/20 16:59:00 ACCOUNT ADJUSTER, ABX Indication : Surgical Prophylaxi s Vancomycin 2019-1 No 1 gm, Memori a 07-16 Route: l 23:00: IVPB, Drug [place] 00 form: INJ, PRE OP, Dosing Weight 63.636, kg, Start date: 05/16/20 17:00:00 ACCOUNT ADJUSTER, Duration: 1 day, Stop date: 05/17/20 16:59:00 ACCOUNT ADJUSTER, ABX Indication : Surgical Prophylaxi s Ancef 2020-1 No 2 gm, Memoria 07-16 Route: l 23:00: IVPB, PRE [place] 00 OP, Dosing Weight 63.636, kg, Start date: 05/16/20 17:00:00 ACCOUNT ADJUSTER, Duration: 1 day, Stop date: 05/17/20 16:59:00 ACCOUNT ADJUSTER, ABX Indication : Surgical Prophylaxi s Vancomycin 2019-1 No 1 gm, Memori a 07-16 Route: l 23:00: IVPB, Drug [place] 00 form: INJ, PRE OP, Dosing Weight 63.636, kg, Start date: 05/16/20 17:00:00 ACCOUNT ADJUSTER, Duration: 1 day, Stop date: 05/17/20 16:59:00 ACCOUNT ADJUSTER, ABX Indication : Surgical Prophylaxi s Ancef 2020-1 No 2 gm, Memoria 07-16 Route: l 23:00: IVPB, PRE [place] 00 OP, Dosing Weight 63.636, kg, Start date: 05/16/20 17:00:00 ACCOUNT ADJUSTER, Duration: 1 day, Stop date: 05/17/20 16:59:00 ACCOUNT ADJUSTER, ABX Indication : Surgical Prophylaxi s Vancomycin 2019-1 No 1 gm, Memori a 07-16 Route: l 23:00: IVPB, Drug [place] 00 form: INJ, PRE OP, Dosing Weight 63.636, kg, Start date: 05/16/20 17:00:00 ACCOUNT ADJUSTER, Duration: 1 day, Stop date: 05/17/20 16:59:00 ACCOUNT ADJUSTER, ABX Indication : Surgical Prophylaxi s Ancef 2020-1 No 2 gm, Memoria 07-16 Route: l 23:00: IVPB, PRE [place] 00 OP, Dosing Weight 63.636, kg, Start date: 05/16/20 17:00:00 ACCOUNT ADJUSTER, Duration: 1 day, Stop date: 05/17/20 16:59:00 ACCOUNT ADJUSTER, ABX Indication : Surgical Prophylaxi s metoprolol [...] 30 tab, 0 coated Refill(s), tablet Pharmacy: [facility] #[id number], 170.18, cm, 04/05/20 21:48:00 CDT, Height, 63.636, [...] 30 tab, 0 coated Refill(s), tablet Pharmacy: [facility] #[id number], 170.18, cm, 04/05/20 21:48:00 CDT, Height, 63.636, [...] 30 tab, 0 coated Refill(s), tablet Pharmacy: [id number], 170.18, cm, 04/05/20 21:48:00 CDT, Height, 63.636, [...] 30 tab, 0 coated Refill(s), tablet Pharmacy: [facility] #[id number], 170.18, cm, 04/05/20 21:48:00 CDT, Height, 63.636, [...] 30 tab, 0 coated Refill(s), tablet Pharmacy: [facility] #[id number], 170.18, cm, 04/05/20 21:48:00 CDT, Height, 63.636, kg, 04/05/20 21:48:00 CDT, Weight Nephro-Flash 2019-06 No Notes: Anthony litzy Rx 0-16 (Same as: l 14:00: Nephro-Vit [place] 00 e Rx and Diatx) Give with [...] Rx 0-16 (Same as: l 14:00: Nephro-Vit [place] 00 e Rx and Diatx) Give with food. Nephro-Flash 2019-06 No Notes: Anthony litzy Rx 0-16 (Same as: l 14:00: Nephro-Vit [place] 00 e Rx and Diatx) Give with [...] (ANES) 0-14 Drug form: l 21:50: SOLN, [place] 00 ONCE, Stop date: 04/06/20 16:50:00 CDT glycopyrrol 2020 No Route: IV, Memoria ate (ANES) 0-14 Drug form: l 21:50: INJ, ONCE, [place] 00 Stop date: 04/06/20 16:50:00 CDT neostigmine 2020 No Route: IV, Memoria (ANES) 0-14 Drug form: l 21:50: INJ, ONCE, Stop date: 04/06/20 16:50:00 CDT sugammadex 2019-06 No Route: IV, M emoria (ANES) 0-14 Drug form: l 21:50: SOLN, [place] ONCE, Stop date: 04/06/20 16:50:00 CDT glycopyrrol 2019-06 No Route: IV, Memoria ate (ANES) 0-14 Drug form: l 21:50: INJ, ONCE, Stop date: 04/06/20 16:50:00 CDT neostigmine 2019-06 No Route: IV, Memoria (ANES) 0-14 Drug form: l 21:50: INJ, ONCE, Stop date: 04/06/20 16:50:00 CDT sugammadex 2019-06 No Route: IV, M emoria (ANES) 0-14 Drug form: l 21:50: SOLN, [place] 00 ONCE, Stop date: 04/06/20 16:50:00 CDT glycopyrrol 2019-06 No Route: IV, Memoria ate (ANES) 0-14 Drug form: l 21:50: INJ, ONCE, Stop date: 04/06/20 16:50:00 CDT neostigmine 2019-06 No Route: IV, Memoria (ANES) 0-14 Drug form: l 21:50: INJ, ONCE, Stop date: 04/06/20 16:50:00 CDT sugammadex 2019-06 No Route: IV, M emoria (ANES) 0-14 Drug form: l 21:50: SOLN, [place] ONCE, Stop date: 04/06/20 16:50:00 CDT glycopyrrol [...] Duration: 30 day, Stop date: 05/06/20 16:25:00 ACCOUNT ADJUSTER, 1.74, m2, 0 normal 2020-1 No 1,000 mL, Memori a saline 0.9% 0-14 Rate: 100 l IV 1,000 mL 21:26: ml/hr, Herm vin 00 Infuse over: 10 hr, Route: IV, Dosing Weight 63.636 kg, Total Volume: 1,000, Start date: 04/06/20 16:26:00 CDT, Duration: 30 day, Stop date: 05/06/20 16:25:00 ACCOUNT ADJUSTER, 1.74, m2, 0 normal 2020-1 No 1,000 mL, Memori a saline 0.9% 0-14 Rate: 100 l IV 1,000 mL 21:26: ml/hr, Herm vin 00 Infuse over: 10 hr, Route: IV, Dosing Weight 63.636 kg, Total Volume: 1,000, Start date: 04/06/20 16:26:00 CDT, Duration: 30 day, Stop date: 05/06/20 16:25:00 ACCOUNT ADJUSTER, 1.74, m2, 0 normal 2020-1 No 1,000 mL, Memori a saline 0.9% 0-14 Rate: 100 l IV 1,000 mL 21:26: ml/hr, Herm vin 00 Infuse over: 10 hr, Route: IV, Dosing Weight 63.636 kg, Total Volume: 1,000, Start date: 04/06/20 16:26:00 CDT, Duration: 30 day, Stop date: 05/06/20 16:25:00 ACCOUNT ADJUSTER, 1.74, m2, 0 normal 2020-1 No 1,000 mL, Memori a saline 0.9% 0-14 Rate: 100 l IV 1,000 mL 21:26: ml/hr, Herm vin 00 Infuse over: 10 hr, Route: IV, Dosing Weight 63.636 kg, Total Volume: 1,000, Start date: 04/06/20 16:26:00 CDT, Duration: 30 day, Stop date: 05/06/20 16:25:00 ACCOUNT ADJUSTER, 1.74, m2, 0 heparin 2020-1 No Notes: Memoria 0-14 porcine l 21:00: heparin [place] 00 heparin 2020-1 No Notes: Memoria 0-14 porcine l 21:00: heparin [place] 00 heparin 2020-1 No Notes: Memoria 0-14 porcine l 21:00: heparin heparin 2019-06 No Notes: Memoria 0-14 porcine l 21:00: heparin heparin 2019-06 No Notes: Memoria 0-14 porcine l 21:00: heparin heparin 2019-06 No Route: IV, Anthony litzy (ANES) 0-14 Drug form: l 20:08: INJ, ONCE, [place] 00 Stop date: 04/06/20 15:08:00 CDT heparin 2019-06 No Route: IV, Anthony litzy (ANES) 0-14 Drug form: l 20:08: INJ, ONCE, [place] 00 Stop date: 04/06/20 15:08:00 CDT heparin 2019-06 No Route: IV, Anthony litzy (ANES) 0-14 Drug form: l 20:08: INJ, ONCE, [place] 00 Stop date: 04/06/20 15:08:00 CDT heparin 2019-06 No Route: IV, Anthony litzy (ANES) 0-14 Drug form: l 20:08: INJ, ONCE, [place] 00 Stop date: 04/06/20 15:08:00 CDT heparin 2019-06 No Route: IV, Anthony litzy (ANES) 0-14 Drug form: l 20:08: INJ, ONCE, [place] 00 Stop date: 04/06/20 15:08:00 CDT ondansetron 2019-06 No Route: IV, Memoria (ANES) 0-14 Drug form: l 20:03: INJ, ONCE, [place] 00 Stop date: 04/06/20 15:03:00 CDT ondansetron 2019-06 No Route: IV, Memoria (ANES) 0-14 Drug form: l 20:03: INJ, ONCE, [place] 00 Stop date: 04/06/20 15:03:00 CDT ondansetron 2019-06 No Route: IV, Memoria (ANES) 0-14 Drug form: l 20:03: INJ, ONCE, [place] 00 Stop date: 04/06/20 15:03:00 CDT ondansetron 2019-06 No Route: IV, Memoria (ANES) 0-14 Drug form: l 20:03: INJ, ONCE, [place] 00 Stop date: 04/06/20 15:03:00 CDT ondansetron 2019-06 [...] ONCE, Stop date: 04/06/20 14:48:00 CDT ePHEDrine 2019- No Route: IV, Me moria (ANES) 0-14 [...] [place] 00 Stop date: 04/06/20 14:43:00 CDT midazolam 2019-06 No Route: IV, Me moria (ANES) 0-14 Drug form: l 19:38: SOLN, [place] ONCE, Stop date: 04/06/20 14:38:00 CDT fentaNYL 2019-06 No Route: IV, Mem oria (ANES) 0-14 Drug form: l 19:38: INJ, ONCE, [place] 00 Stop date: 04/06/20 14:38:00 CDT Amidate 2020 No Route: IV, Anthony litzy (ANES) 0-14 Drug form: l 19:38: INJ, ONCE, Stop date: 04/06/20 14:38:00 CDT midazolam 2019-06 No Route: IV, Me moria (ANES) 0-14 Drug form: l 19:38: SOLN, [place] 00 ONCE, Stop date: 04/06/20 14:38:00 CDT fentaNYL 2019-06 No Route: IV, Mem oria (ANES) 0-14 Drug form: l 19:38: INJ, ONCE, [place] 00 Stop date: 04/06/20 14:38:00 CDT Amidate 2019-06 No Route: IV, Anthony litzy (ANES) 0-14 Drug form: l 19:38: INJ, ONCE, [place] 00 Stop date: 04/06/20 14:38:00 CDT midazolam 2019-06 No Route: IV, Me moria (ANES) 0-14 Drug form: l 19:38: SOLN, [place] 00 ONCE, Stop date: 04/06/20 14:38:00 CDT fentaNYL 2020 No Route: IV, Mem oria (ANES) 0-14 Drug form: l 19:38: INJ, ONCE, [place] 00 Stop date: 04/06/20 14:38:00 CDT Amidate 2019-06 No Route: IV, Anthony litzy (ANES) 0-14 Drug form: l 19:38: INJ, ONCE, [place] 00 Stop date: 04/06/20 14:38:00 CDT midazolam 2019- No Route: IV, Me moria (ANES) 0-14 Drug form: l 19:38: SOLN, [place] ONCE, Stop date: 04/06/20 14:38:00 CDT fentaNYL 2019-06 No Route: IV, Mem oria (ANES) 0-14 Drug form: l 19:38: INJ, ONCE, Stop date: 04/06/20 14:38:00 CDT Amidate 2019-06 No Route: IV, Anthony litzy (ANES) 0-14 Drug form: l 19:38: INJ, ONCE, Stop date: 04/06/20 14:38:00 CDT midazolam 2020- No Route: IV, Me moria [...] (ANES) 0-14 Drug form: l 19:27: INJ, ONCE Stop date: 04/06/20 14:27:00 CDT vancomycin 2019-06 No Route: IV, M emoria (ANES) 1000 0-14 Drug form: l mg 18:31: INJ, date: 04/06/20 13:31:00 CDT, Stop date: 04/06/20 14:31:00 CDT vancomycin 2019-06 No Route: IV, M emoria (ANES) 1000 0-14 Drug form: l mg 18:31: INJ, date: 04/06/20 13:31:00 CDT, Stop date: 04/06/20 14:31:00 CDT vancomycin 2019-06 No Route: IV, M emoria (ANES) 1000 0-14 Drug form: l mg 18:31: INJ, date: 04/06/20 13:31:00 CDT, Stop date: 04/06/20 14:31:00 CDT vancomycin 2019-06 No Route: IV, M emoria (ANES) 1000 0-14 Drug form: l mg 18:31: INJ, date: 04/06/20 13:31:00 CDT, Stop date: 04/06/20 14:31:00 CDT vancomycin 2019-06 No Route: IV, M emoria (ANES) 1000 0-14 Drug form: l mg 18:31: INJ, date: 04/06/20 13:31:00 CDT, Stop date: 04/06/20 [...] Duration: 30 day, Stop date: 05/06/20 11:46:00 ACCOUNT ADJUSTER, 1.74, m2 Sodium 2019-06 No 500 ml, Memoria Chloride 0-14 Rate: 25 l 0.9% IV 500 16:47: ml/hr, Herm vin ml 00 Infuse over: 20 hr, Route: IV, Dosing Weight 63.636 kg, Total Volume: 500, Start date: 04/06/20 11:47:00 CDT, Duration: 30 day, Stop date: 05/06/20 11:46:00 ACCOUNT ADJUSTER, 1.74, m2 Sodium 2019- No 500 ml, Memoria Chloride 0-14 Rate: 25 l 0.9% IV 500 16:47: ml/hr, Herm vin ml 00 Infuse over: 20 hr, Route: IV, Dosing Weight 63.636 kg, Total Volume: 500, Start date: 04/06/20 11:47:00 CDT, Duration: 30 day, Stop date: 05/06/20 11:46:00 ACCOUNT ADJUSTER, 1.74, m2 Sodium 2020-1 No 500 ml, Memoria Chloride 0-14 Rate: 25 l 0.9% IV 500 16:47: ml/hr, Herm vin ml 00 Infuse over: 20 hr, Route: IV, Dosing Weight 63.636 kg, Total Volume: 500, Start date: 04/06/20 11:47:00 CDT, Duration: 30 day, Stop date: 05/06/20 11:46:00 ACCOUNT ADJUSTER, 1.74, m2 Sodium 2020-1 No 500 ml, Memoria Chloride 0-14 Rate: 25 l 0.9% IV 500 16:47: ml/hr, Herm vin ml 00 Infuse over: 20 hr, Route: IV, Dosing Weight 63.636 kg, Total Volume: 500, Start date: 04/06/20 11:47:00 CDT, Duration: 30 day, Stop date: 05/06/20 11:46:00 ACCOUNT ADJUSTER, 1.74, m2 Tylenol 2020-1 No 650 mg, Memoria 0-14 Route: PO, l 15:33: Drug form: [place] 00 TAB, ONCE, Dosing Weight 63.636, kg, [...] litzy 0-14 (Same as: l 14:00: Zyloprim) [place] Aspirin 81 2019-06 No Notes: Do Me moria MG Enteric 0-14 not crush l Coated 14:00: or chew. [place] Tablet 00 (Same As: Ecotrin) Clonidine 2019-06 No Notes: Memori a Hydrochlori 0-14 (Same As: l de 0.3 MG 14:00: Catapres) Her cardenas Oral Tablet 00 ferrous 2019-06 No 256 mg, Memoria gluconate 0-14 Route: PO, l 14:00: Drug form: [place] 00 TAB, Daily, Dosing Weight 63.636, kg, Start date: 04/06/20 9:00:00 CDT, Duration: 30 day, Stop date: 05/05/20 9:00:00 ACCOUNT ADJUSTER Triiodothyr 2019-06 No Notes: Anthony litzy onine 0-14 (Same as: l 14:00: Cytomel) [place] 00 24 HR 2019-06 No Notes: Memoria Metoprolol 0-14 (Same as: l Tartrate 25 14:00: Toprol XL) [place] MG Extended 00 Do Not Release Crush Tablet [Toprol] paricalcito 2019-06 No Notes: Anthony litzy l 0.001 MG 0-14 (Same as: l Oral 14:00: Zemplar) [place] Capsule 00 ferrous 2019-06 No Notes: Memoria sulfate 0-14 Give with l 14:00: food. "Do [place] 00 Not Crush" Allopurinol 2019-06 No Notes: Anthony litzy 0-14 (Same as: l 14:00: Zyloprim) [place] 00 Aspirin 81 2019-06 No Notes: Do Me moria MG Enteric 0-14 not crush l Coated 14:00: or chew. [place] Tablet 00 (Same As: Ecotrin) Clonidine 2019-06 No Notes: Memori a Hydrochlori 0-14 (Same As: l de 0.3 MG 14:00: Catapres) Her cardenas Oral Tablet 00 ferrous 2019-06 No 256 mg, Memoria gluconate 0-14 Route: PO, l 14:00: Drug form: [place] 00 TAB, Daily, Dosing Weight 63.636, kg, Start date: 04/06/20 9:00:00 CDT, Duration: 30 day, Stop date: 05/05/20 9:00:00 ACCOUNT ADJUSTER Triiodothyr 2019-06 No Notes: Anthony litzy onine [...] 0-14 Give with l 14:00: food. "Do [place] 00 Not Crush" Allopurinol 2019-06 No Notes: Anthony litzy 0-14 (Same as: l 14:00: Zyloprim) [place] 00 Aspirin 81 2019-06 No Notes: Do Me moria MG Enteric 0-14 not crush l Coated 14:00: or chew. [place] Tablet 00 (Same As: Ecotrin) Clonidine 2019-06 No Notes: Memori a Hydrochlori 0-14 (Same As: l de 0.3 MG 14:00: Catapres) Her cardenas Oral Tablet 00 ferrous 2019-06 No 256 mg, Memoria gluconate 0-14 Route: PO, l 14:00: Drug form: [place] 00 TAB, Daily, Dosing Weight 63.636, kg, Start date: 04/06/20 9:00:00 CDT, Duration: 30 day, Stop date: 05/05/20 9:00:00 ACCOUNT ADJUSTER Triiodothyr 2019-06 No Notes: Anthony litzy onine 0-14 (Same as: l 14:00: Cytomel) [place] 00 24 HR 2019-06 No Notes: Memoria Metoprolol 0-14 (Same as: l Tartrate 25 14:00: Toprol XL) [place] MG Extended 00 Do Not Release Crush Tablet [Toprol] paricalcito 2019-06 No Notes: Anthony litzy l 0.001 MG 0-14 (Same as: l Oral 14:00: Zemplar) [place] Capsule 00 ferrous 2019-06 No Notes: Memoria sulfate 0-14 Give with l 14:00: food. "Do [place] 00 Not Crush" Allopurinol 2019-06 No Notes: Anthony litzy 0-14 (Same as: l 14:00: Zyloprim) [place] Aspirin 81 2019-06 No Notes: Do Me moria MG Enteric 0-14 not crush l Coated 14:00: or chew. [place] Tablet 00 (Same As: Ecotrin) Clonidine 2019-06 No Notes: Memori a Hydrochlori 0-14 (Same As: l de 0.3 MG 14:00: Catapres) Her cardenas Oral Tablet 00 ferrous 2019-06 No 256 mg, Memoria gluconate 0-14 Route: PO, l 14:00: Drug form: [place] 00 TAB, Daily, Dosing Weight 63.636, kg, Start date: 04/06/20 9:00:00 CDT, Duration: 30 day, Stop date: 05/05/20 9:00:00 ACCOUNT ADJUSTER Triiodothyr 2019-06 No Notes: Anthony litzy onine [...] 0-14 Give with l 14:00: food. "Do [place] 00 Not Crush" Allopurinol 2019-06 No Notes: Anthony litzy 0-14 (Same as: l 14:00: Zyloprim) [place] 00 Aspirin 81 2019-06 No Notes: Do Me moria MG Enteric 0-14 not crush l Coated 14:00: or chew. [place] Tablet 00 (Same As: Ecotrin) Clonidine 2019-06 No Notes: Memori a Hydrochlori 0-14 (Same As: l de 0.3 MG 14:00: Catapres) Her cardenas Oral Tablet 00 ferrous 2019-06 No 256 mg, Memoria gluconate 0-14 Route: PO, l 14:00: Drug form: [place] 00 TAB, Daily, Dosing Weight 63.636, kg, Start date: 04/06/20 9:00:00 CDT, Duration: 30 day, Stop date: 05/05/20 9:00:00 ACCOUNT ADJUSTER Triiodothyr 2019-06 No Notes: Anthony litzy onine 0-14 (Same as: l 14:00: Cytomel) [place] 00 24 HR 2019-06 No Notes: Memoria Metoprolol 0-14 (Same as: l Tartrate 25 14:00: Toprol XL) [place] MG Extended 00 Do Not Release Crush Tablet [Toprol] paricalcito 2019-06 No Notes: Anthony litzy l 0.001 MG 0-14 (Same as: l Oral 14:00: Zemplar) [place] Capsule 00 ferrous 2019-06 No Notes: Memoria sulfate 0-14 Give with l 14:00: food. "Do [place] 00 Not Crush" Thyroxine 2019-06 No Notes: Memori a 0-14 Take 1 l 11:30: hour [place] 00 before or 2 hours after meal; [...] a 0-14 Take 1 l 11:30: hour [place] 00 before or 2 hours after meal; Enteral feeds may interefere with the absorption of this medication .(Same as:Levothr oid, Synthroid) Thyroxine 2020-1 No Notes: Memori a 0-14 Take 1 l 11:30: hour [place] 00 before or 2 hours after meal; Enteral feeds may interefere with the absorption of this medication .(Same as:Levothr oid, Synthroid) Hydralazine 2019-06 No Notes: Anthony litzy Hydrochlori 0-14 (Same as: l de 100 MG 05:00: Apresoline He rmann Oral Tablet 00 ) May interfere w/enteral feedings Take With Food Hydralazine 2019-06 No Notes: Anthony iltzy Hydrochlori 0-14 (Same as: l de 100 [...] Perles 0-14 (Same As: l 03:03: Tessalon [place] 00 Perles) "Do Not Crush" tizanidine 2019-06 No Notes: Memor ia 0-14 (Same As: l 03:03: Zanaflex) [place] 00 Hydralazine 2019-06 No Notes: Anthony litzy 0-14 [...] 0-14 (Same as: l 03:03: Apresoline [place] ) Push over 5 minutes Benzocaine 2019-06 [...] 0-14 (Same as: l 03:03: Apresoline [place] ) Push over 5 minutes Benzocaine 2019-06 No Notes: Memor ia 15 MG / 0-14 Same as: l Menthol 3.6 03:03: Cepacol Her cardenas MG Lozenge 00 [Cepacol Sore Throat Pain Relief 15/3.6] Tessalon 2019-06 No Notes: Memoria Perles 0-14 (Same As: l 03:03: Tessalon [place] Perles) "Do Not Crush" tizanidine 2019-06 No Notes: Memor ia 0-14 (Same As: l 03:03: Zanaflex) [place] Hydralazine 2019-06 No Notes: Anthony litzy 0-14 (Same as: l 03:03: Apresoline [place] ) Push over 5 minutes Benzocaine 2019-06 No Notes: Memor ia 15 MG / 0-14 Same as: l Menthol 3.6 03:03: Cepacol Her cardenas MG Lozenge 00 [Cepacol Sore Throat Pain Relief 15/3.6] Tessalon 2019-06 No Notes: Memoria Perles 0-14 (Same As: l 03:03: Tessalon [place] Perles) "Do Not Crush" tizanidine 2019-06 No Notes: Memor ia 0-14 (Same As: l 03:03: Zanaflex) [place] Acetaminoph 2019-06 No Notes: Anthony litzy en 325 MG / 0-14 (Same as: l Hydrocodone 01:40: [place] nn Bitartrate 00 325/5) Do 5 MG Oral not exceed Tablet 4gm/day of [[place] acetaminop 5/325] hen. Acetaminoph 2019-06 No Notes: Anthony litzy en 325 MG / 0-14 (Same as: l Hydrocodone 01:40: [place] nn Bitartrate 00 325/5) Do 5 MG Oral not exceed Tablet 4gm/day of [[place] acetaminop 5/325] hen. Acetaminoph 2019-06 No Notes: Anthony litzy en 325 MG / 0-14 (Same as: l Hydrocodone 01:40: [place] nn Bitartrate 00 325/5) Do 5 MG Oral not exceed Tablet 4gm/day of [[place] acetaminop 5/325] hen. Acetaminoph 2019-06 No Notes: Anthony litzy en 325 MG / 0-14 (Same as: l Hydrocodone 01:40: [place] nn Bitartrate 00 325/5) Do 5 MG Oral not exceed Tablet 4gm/day of [[place] acetaminop 5/325] hen. Acetaminoph 2019-06 No Notes: Anthony litzy en 325 MG / 0-14 (Same as: l Hydrocodone 01:40: [place] nn Bitartrate 00 325/5) Do 5 MG Oral not exceed Tablet 4gm/day of [[place] acetaminop 5/325] hen. Dextrose 2019-06 No 12.5 gm, Memor ia 50% Syringe 0-14 25 mL, l (D50W) 01:39: Route: [place] 00 IVP, Drug Form: INJ, Dosing Weight 63.636, kg, PRN, PRN Blood Glucose Results, Start date: 04/05/20 20:39:00 CDT, Duration: 30 day, Stop date: 05/05/20 19:38:00 ACCOUNT ADJUSTER, 0 Glucagon 2019- No 1 mg, Memoria 0-14 Route: IM, l 01:39: Drug form: [place] 00 PDR/INJ, PRN, Dosing Weight 63.636, kg, PRN Blood Glucose Results, Start date: 04/05/20 20:39:00 CDT, Duration: 30 day, Stop date: 05/05/20 19:38:00 ACCOUNT ADJUSTER, 0 Docusate 2019-06 No Notes: Memoria 0-14 (Same as: l 01:39: Colace) (Do Not Crush) Ondansetron 2019-06 No Notes: Anthony litzy 0-14 (Same as: l 01:39: Zofran) MEDICATION WASTE Product Size: 4 mg Product Wasted: ___ mg Melatonin 2019- No Notes: Memori a 0-14 (Same as: l 01:39: Melatonin) Acetaminoph 2019-06 No Notes: Do M emoria en 0-14 not exceed l 01:39: 4 gm/day. (Same as: Tylenol) Dextrose 2019-06 No 12.5 gm, Memor ia 50% Syringe 0-14 25 mL, l (D50W) 01:39: Route: IVP, Drug Form: INJ, Dosing Weight 63.636, kg, PRN, PRN Blood Glucose Results, Start date: 04/05/20 20:39:00 CDT, Duration: 30 day, Stop date: 05/05/20 19:38:00 ACCOUNT ADJUSTER, 0 Glucagon 2020 No 1 mg, Memoria 0-14 Route: IM, l 01:39: Drug form: [place] 00 PDR/INJ, PRN, Dosing Weight 63.636, kg, PRN Blood Glucose Results, Start date: 04/05/20 20:39:00 CDT, Duration: 30 day, Stop date: 05/05/20 19:38:00 ACCOUNT ADJUSTER, 0 Docusate 2019-06 No Notes: Memoria 0-14 (Same as: l 01:39: Colace) [place] (Do Not Crush) Ondansetron 2019-06 No Notes: Anthony litzy 0-14 (Same as: l 01:39: Zofran) [place] 00 MEDICATION WASTE Product Size: 4 mg Product Wasted: ___ mg Melatonin 2019-06 No Notes: Memori a 0-14 (Same as: l 01:39: Melatonin) Acetaminoph 2019-06 No Notes: Do M emoria en 0-14 not exceed l 01:39: 4 gm/day. Talon (Same as: Tylenol) Dextrose 2019-06 No 12.5 gm, Memor ia 50% Syringe 0-14 25 mL, l (D50W) 01:39: Route: [place] 00 IVP, Drug Form: INJ, Dosing Weight 63.636, kg, PRN, PRN Blood Glucose Results, Start date: 04/05/20 20:39:00 CDT, Duration: 30 day, Stop date: 05/05/20 19:38:00 ACCOUNT ADJUSTER, 0 Glucagon 2019-06 No 1 mg, Memoria 0-14 Route: IM, l 01:39: Drug form: [place] 00 PDR/INJ, PRN, Dosing Weight 63.636, kg, PRN Blood Glucose Results, Start date: 04/05/20 20:39:00 CDT, Duration: 30 day, Stop date: 05/05/20 19:38:00 ACCOUNT ADJUSTER, 0 Docusate 2019-06 No Notes: Memoria 0-14 (Same as: l 01:39: Colace) [place] 00 (Do Not Crush) Ondansetron 2019-06 No [...] Duration: 30 day, Stop date: 05/05/20 19:38:00 ACCOUNT ADJUSTER, 0 Glucagon 2020- No 1 mg, Memoria 0-14 Route: IM, l 01:39: Drug form: [place] 00 PDR/INJ, PRN, Dosing Weight 63.636, kg, PRN Blood Glucose Results, Start date: 04/05/20 20:39:00 CDT, Duration: 30 day, Stop date: 05/05/20 19:38:00 ACCOUNT ADJUSTER, 0 Docusate 2019-06 No Notes: Memoria 0-14 (Same as: l 01:39: Colace) (Do Not Crush) Ondansetron 2019-06 No Notes: Anthony litzy 0-14 (Same as: l 01:39: Zofran) MEDICATION WASTE Product Size: 4 mg Product Wasted: ___ mg Melatonin 2019- No Notes: Memori a 0-14 (Same as: l 01:39: Melatonin) Acetaminoph 2019-06 No Notes: Do M emoria en 0-14 not exceed l 01:39: 4 gm/day. (Same as: Tylenol) Dextrose 2019-06 No 12.5 gm, Memor ia 50% Syringe 0-14 25 mL, l (D50W) 01:39: Route: Talon IVP, Drug Form: INJ, Dosing Weight 63.636, kg, PRN, PRN Blood Glucose Results, Start date: 04/05/20 20:39:00 CDT, Duration: 30 day, Stop date: 05/05/20 19:38:00 ACCOUNT ADJUSTER, 0 Glucagon 2019- No 1 mg, Memoria 0-14 Route: IM, l 01:39: Drug form: [place] 00 PDR/INJ, PRN, Dosing Weight 63.636, kg, PRN Blood Glucose Results, Start date: 04/05/20 20:39:00 CDT, Duration: 30 day, Stop date: 05/05/20 19:38:00 ACCOUNT ADJUSTER, 0 Docusate 2019- No Notes: Memoria 0-14 (Same as: l 01:39: Colace) (Do Not Crush) Ondansetron 2019-06 No Notes: Anthony litzy 0-14 (Same as: l 01:39: Zofran) MEDICATION WASTE Product Size: 4 mg Product Wasted: ___ mg Melatonin 2019- No Notes: Memori a 0-14 (Same as: l 01:39: Melatonin) Acetaminoph 2019- No Notes: Do M emoria en 0-14 [...] 00 cyanocobala 2020-0 No 1mcg/mL min (vit 421 B-12) 1,000 00:00: mcg/mL 00 injection solution [...] 00 cyanocobala 2020-0 No 1mcg/mL min (vit 1-17 B-12) 1,000 00:00: mcg/mL 00 injection solution [...] 00 cyanocobala 2020-0 No 1mcg/mL min (vit 117 B-12) 1,000 00:00: mcg/mL 00 injection solution [...] Zemplar 1 2020-0 No 1mcg mcg capsule 06-30 00:00: 00 clonidine 2020-0 No 1mg HCl 0.2 mg 1-07 tablet 00:00: 00 metoprolol 2020-0 No 1mg tartrate 25 1-07 mg tablet 00:00: 00 allopurinol 2020-0 No 1mg 100 mg 1-07 tablet 00:00: 00 hydroxyzine 2020-0 No 1mg HCl 25 mg 1-07 tablet 00:00: 00 levothyroxi 2020-0 No 1mcg ne 50 mcg 1-07 tablet 00:00: 00 Zemplar 1 2020-0 No 1mcg mcg capsule 06-30 00:00: 00 clonidine 2020-0 No 1mg HCl [...] PO, l oral tablet 17:26: Bedtime, # [place] 00 30 tab, 0 Refill(s) atorvastati 2019-0 Yes 40 mg = 1 M emoria n 40 mg 7-28 tab, PO, l oral tablet 17:26: Bedtime, # [place] 00 30 tab, 0 Refill(s) atorvastati 2019- Yes 40 mg = 1 M emoria n 40 mg 7-28 tab, PO, l oral tablet 17:26: Bedtime, # [place] 00 30 tab, 0 Refill(s) atorvastati 2019-0 Yes 40 mg = 1 M emoria n 40 mg 7-28 tab, PO, l oral tablet 17:26: Bedtime, # [place] 00 30 tab, 0 Refill(s) atorvastati 2019-0 Yes 40 mg = 1 M emoria n 40 mg 7-28 tab, PO, l oral tablet 17:26: Bedtime, # [place] 00 30 tab, 0 Refill(s) Aspirin 81 2019-0 Yes 81 mg = 1 Me moria MG Enteric 7-28 tab, PO, l Coated 17:21: Daily, # [place] Tablet 00 90 tab, 3 Refill(s) Aspirin 81 2019-0 Yes 81 mg = 1 Me moria MG Enteric 7-28 tab, PO, l Coated 17:21: Daily, # [place] Tablet 00 90 tab, 3 Refill(s) Aspirin 81 2019-0 Yes 81 mg = 1 Me moria MG Enteric 7-28 tab, PO, l Coated 17:21: Daily, # [place] Tablet 00 90 tab, 3 Refill(s) Aspirin 81 2019-0 Yes 81 mg = 1 Me moria MG Enteric 7-28 tab, PO, l Coated 17:21: Daily, # [place] Tablet 00 90 tab, 3 Refill(s) Aspirin [...] l MG / 17:05: day, # 20 [place] sennosides, 00 tab, 0 LONG TERM 8.6 MG Refill(s) Oral Tablet metoprolol Yes [...] l MG / 17:05: day, # 20 [place] sennosides, 00 tab, 0 LONG TERM 8.6 MG Refill(s) Oral Tablet metoprolol Yes [...] l MG / 17:05: day, # 20 [place] sennosides, 00 tab, 0 LONG TERM 8.6 MG Refill(s) Oral Tablet metoprolol Yes [...] # 20 [place] sennosides, 00 tab, 0 LONG TERM 8.6 MG Refill(s) Oral Tablet metoprolol Yes [...] # 20 [place] sennosides, 00 tab, 0 LONG TERM 8.6 MG Refill(s) Oral Tablet metoprolol Yes 25 mg = 1 Me moria 25 mg oral 7-28 tab, PO, l tablet, 17:05: Daily, # [place] n extended 00 30 tab, 0 release Refill(s) Clonidine No Notes: Memori a Hydrochlori 7-27 (Same As: l de 0.3 MG 18:00: Catapres) Her cardenas Oral Tablet Clonidine No Notes: Memori a Hydrochlori 7-27 (Same As: l de 0.3 MG 18:00: Catapres) Her cardenas Oral Tablet Clonidine No Notes: Memori a Hydrochlori 7-27 (Same As: l de 0.3 MG 18:00: Catapres) Her cardenas Oral Tablet Clonidine No Notes: Memori a Hydrochlori 7-27 [...] Memoria 7-27 (Same as: l 15:31: Reglan) [place] 00 Hydralazine No Notes: Anthony litzy 7-27 [...] Memoria 7-27 (Same as: l 15:31: Reglan) [place] 00 Hydralazine No Notes: Anthony litzy 7-27 (Same as: l 15:31: Apresoline ) Push over 5 minutes Allopurinol No Notes: Anthony litzy 7-27 (Same as: l 14:00: Zyloprim) [place] 00 ferrous No 256 mg, Memoria gluconate 01-17 Route: PO, l 14:00: Drug form: [place] 00 TAB, Daily, Dosing Weight 62.358, kg, Start date: 01/17/19 9:00:00 CDT, Duration: 30 day, Stop date: 02/15/19 9:00:00 CDT Docusate No Notes: Memoria Sodium 50 7-27 (Same as l MG / 14:00: Senokot-S) [place] sennosides, 00 Equiv. to LONG TERM 8.6 MG Zoraida-Colac Oral Tablet e. ferrous No Notes: Memoria sulfate 7-27 Give with l 14:00: food. "Do [place] 00 Not Crush" paricalcito No Notes: Anthony litzy l 0.001 MG 7-27 (Same as: l Oral 14:00: Zemplar) [place] Capsule Nifedical No Notes: Memori a XL 7-27 (Same as: l 14:00: Adalat CC, [place] 00 Procardia XL) Give on empty stomach. Take 1 hour before or 2 hours after meal; "Avoid grapefruit and grapefruit juice". Do not crush Nephro-Flash No Notes: Anthony litzy Rx 7-27 (Same as: l 14:00: Nephro-Vit [place] 00 e Rx and Diatx) Give with food. Allopurinol No Notes: Anthony litzy 7-27 (Same as: l 14:00: Zyloprim) [place] ferrous No 256 mg, Memoria gluconate 7-27 Route: PO, l 14:00: Drug form: [place] TAB, Daily, Dosing Weight 62.358, kg, Start date: 01/17/19 9:00:00 CDT, Duration: 30 day, Stop date: 02/15/19 9:00:00 CDT Docusate No Notes: Memoria Sodium 50 7-27 (Same as l MG / 14:00: Senokot-S) [place] sennosides, 00 Equiv. to LONG TERM 8.6 MG Zoraida-Colac Oral Tablet e. ferrous No Notes: Memoria sulfate 7-27 Give with l 14:00: food. "Do [place] 00 Not Crush" paricalcito No Notes: Anthony litzy l 0.001 MG 7-27 (Same as: l Oral 14:00: Zemplar) [place] Capsule Nifedical No Notes: Memori a XL 7-27 (Same as: l 14:00: Adalat CC, [place] 00 Procardia XL) Give on empty stomach. Take [...] 7-27 Route: PO, l 14:00: Drug form: [place] 00 TAB, Daily, Dosing Weight 62.358, kg, Start date: 01/17/19 9:00:00 CDT, Duration: 30 day, Stop date: 02/15/19 9:00:00 CDT Docusate No Notes: Memoria Sodium 50 7-27 (Same as l MG / 14:00: Senokot-S) sennosides, 00 Equiv. to LONG TERM 8.6 MG Zoraida-Colac Oral Tablet e. ferrous No Notes: Memoria sulfate 7-27 Give with l 14:00: food. "Do Not Crush" paricalcito No Notes: Anthony litzy l 0.001 MG 7-27 (Same as: l Oral 14:00: Zemplar) Capsule Nifedical No Notes: Memori a XL 7-27 (Same as: l 14:00: Adalat CC, Procardia XL) Give on empty stomach. Take 1 hour before or 2 hours after meal; "Avoid grapefruit and grapefruit juice". Do not crush Nephro-Flash No Notes: Anthony litzy Rx 7-27 (Same as: l 14:00: Nephro-Vit [place] 00 e Rx and Diatx) Give with food. Allopurinol No Notes: Anthony litzy 7-27 (Same as: l 14:00: Zyloprim) ferrous No 256 mg, Memoria gluconate 7-27 Route: PO, l 14:00: Drug form: [place] 00 TAB, Daily, Dosing Weight 62.358, kg, Start date: 01/17/19 9:00:00 CDT, Duration: 30 day, Stop date: 02/15/19 9:00:00 CDT Docusate No Notes: Memoria Sodium 50 7-27 (Same as l MG / 14:00: Senokot-S) [place] sennosides, 00 Equiv. to LONG TERM 8.6 MG Zoraida-Colac Oral Tablet e. ferrous No Notes: Memoria sulfate 7-27 Give with l 14:00: food. "Do [place] 00 Not Crush" paricalcito No Notes: Anthony litzy l 0.001 MG 7-27 (Same as: l Oral 14:00: Zemplar) [place] Capsule 00 Nifedical No Notes: Memori a XL 7-27 (Same as: l 14:00: Adalat CC, [place] 00 Procardia XL) Give on empty stomach. Take 1 hour before or 2 hours after meal; "Avoid grapefruit and grapefruit juice". Do not crush Nephro-Flash No Notes: Anthony litzy Rx 7-27 (Same as: l 14:00: Nephro-Vit [place] 00 e Rx and Diatx) Give with food. Allopurinol No Notes: Anthony litzy 7-27 (Same as: l 14:00: Zyloprim) [place] ferrous No 256 mg, Memoria gluconate 7-27 Route: PO, l 14:00: Drug form: [place] 00 TAB, Daily, Dosing Weight 62.358, kg, Start date: 01/17/19 9:00:00 CDT, Duration: 30 day, Stop date: 02/15/19 9:00:00 CDT Docusate No Notes: Memoria Sodium 50 7-27 (Same as l MG / 14:00: Senokot-S) [place] sennosides, 00 Equiv. to LONG TERM 8.6 MG Zoraida-Colac Oral Tablet e. ferrous No Notes: Memoria sulfate 7-27 Give with l 14:00: food. "Do [place] 00 Not Crush" paricalcito No Notes: Anthony litzy l 0.001 MG 7-27 (Same as: l Oral 14:00: Zemplar) [place] Capsule 00 Nifedical No Notes: Memori a XL 7-27 (Same as: l 14:00: Adalat CC, [place] 00 Procardia XL) Give on empty stomach. Take [...] Memoria 01-17 porcine l 06:00: heparin [place] heparin No Notes: Memoria 01-17 porcine l 06:00: heparin [place] heparin No Notes: Memoria 01-17 porcine l 06:00: heparin [place] heparin No Notes: Memoria 01-17 porcine l 06:00: heparin [place] heparin No Notes: Memoria 01-17 porcine l 06:00: heparin [place] atorvastati No Notes: Anthony litzy n 01-17 (Same as: l 02:00: Lipitor) [place] 00 atorvastati No Notes: Anthony litzy n 01-17 (Same as: l 02:00: Lipitor) [place] atorvastati No Notes: Anthony litzy n 01-17 (Same as: l 02:00: Lipitor) [place] atorvastati No Notes: Anthony litzy n 01-17 (Same as: l 02:00: Lipitor) [place] atorvastati No Notes: Anthony litzy n 01-17 (Same as: l 02:00: Lipitor) [place] Acetaminoph No Notes: Anthony litzy en 325 MG / 01-17 (Same as: l Hydrocodone 00:40: [place] nn Bitartrate 00 325/5) Do 5 MG Oral not exceed Tablet 4gm/day of [[place] acetaminop 5/325] hen. Acetaminoph No Notes: Anthony litzy en 325 MG / 01-17 (Same as: l Hydrocodone 00:40: [place] nn Bitartrate 00 325/5) Do 5 MG Oral not exceed Tablet 4gm/day of [[place] acetaminop 5/325] hen. Acetaminoph No Notes: Anthony litzy en 325 MG / 01-17 (Same as: l Hydrocodone 00:40: [place] nn Bitartrate 00 325/5) Do 5 MG Oral not exceed Tablet 4gm/day of [[place] acetaminop 5/325] hen. Acetaminoph No Notes: Anthony litzy en 325 MG / 01-17 (Same as: l Hydrocodone 00:40: [place] nn Bitartrate 00 325/5) Do 5 MG Oral not exceed Tablet 4gm/day of [[place] acetaminop 5/325] hen. Acetaminoph No Notes: Anthony litzy en 325 MG / 01-17 (Same as: l Hydrocodone 00:40: [place] nn Bitartrate 00 325/5) Do 5 MG Oral not exceed Tablet 4gm/day of [[place] acetaminop 5/325] hen. Acetaminoph No 2 tab, Anthony litzy en 325 MG / 01-17 Route: PO, l Hydrocodone 00:36: Dosing Herm vin Bitartrate 00 Weight 5 MG Oral 62.358, Tablet kg, Q4H, [[place] STAT, 5/325] Start date: 01/16/19 19:36:00 CDT, Duration: 30 day, Stop date: 02/15/19 16:00:00 CDT Acetaminoph No 2 tab, Anthony litzy en 325 MG / 01-17 Route: PO, l Hydrocodone 00:36: Dosing Herm vin Bitartrate 00 Weight 5 MG Oral 62.358, Tablet kg, Q4H, [[place] STAT, 5/325] Start date: 01/16/19 19:36:00 CDT, Duration: 30 day, Stop date: 02/15/19 16:00:00 CDT Acetaminoph No 2 tab, Anthony litzy en 325 MG / 01-17 Route: PO, l Hydrocodone 00:36: Dosing Herm vin Bitartrate 00 Weight 5 MG Oral 62.358, Tablet kg, Q4H, [[place] STAT, 5/325] Start date: 01/16/19 19:36:00 CDT, Duration: 30 day, Stop date: 02/15/19 16:00:00 CDT Acetaminoph No 2 tab, Anthony litzy en 325 MG / 01-17 Route: PO, l Hydrocodone 00:36: Dosing Herm vin Bitartrate 00 Weight 5 MG Oral 62.358, Tablet kg, Q4H, [[place] STAT, 5325] Start date: 01/16/19 19:36:00 CDT, Duration: 30 day, Stop date: 02/15/19 16:00:00 CDT Acetaminoph No 2 tab, Anthony litzy en 325 MG / 01-17 Route: PO, l Hydrocodone 00:36: Dosing Herm vin Bitartrate 00 Weight 5 MG Oral 62.358, Tablet kg, Q4H, [[place] STAT, 5325] Start date: 01/16/19 19:36:00 CDT, Duration: 30 day, Stop date: 02/15/19 16:00:00 CDT Milk of No Notes: Memoria Magnesia 7-26 (Same as: l 23:23: Milk of [place] 00 Magnesia, MOM) Milk of No Notes: Memoria Magnesia 7-26 (Same as: l 23:23: Milk of [place] 00 Magnesia, MOM) Milk of No Notes: Memoria Magnesia 7-26 (Same as: l 23:23: Milk of [place] 00 Magnesia, MOM) Milk of No Notes: Memoria Magnesia 7-26 (Same as: l 23:23: Milk of [place] 00 Magnesia, MOM) Milk of No Notes: Memoria Magnesia 7-26 (Same as: l 23:23: Milk of [place] 00 Magnesia, MOM) Aspirin 81 No Notes: [...] Memoria 7-26 (Same as: l 22:24: Zofran) [place] 00 MEDICATION WASTE Product Size: 4 mg Product Wasted: ___ mg Zofran No Notes: Memoria 7-26 (Same as: l 22:24: Zofran) [place] 00 MEDICATION WASTE Product Size: 4 mg Product Wasted: ___ mg Zofran No Notes: Memoria 7-26 (Same as: l 22:24: Zofran) [place] 00 MEDICATION WASTE Product Size: 4 mg Product Wasted: ___ mg Zofran No Notes: Memoria 7-26 (Same as: l 22:24: Zofran) [place] 00 MEDICATION WASTE Product Size: 4 mg Product Wasted: ___ mg Zofran No Notes: Memoria 7-26 (Same as: l 22:24: Zofran) [place] 00 MEDICATION WASTE Product Size: 4 mg Product Wasted: ___ mg Lactulose No Notes: Memori a 667 MG/ML 7-26 (Same l Oral 22:23: as:Chronul [place] Solution 00 ac) Morphine No Notes: Memoria 7-26 (Same l 22:23: as:MORPhin [place] 00 e Sulfate) Lactulose No Notes: Memori a 667 MG/ML 7-26 (Same l Oral 22:23: as:Chronul [place] Solution 00 ac) Morphine No Notes: Memoria 7-26 (Same l 22:23: as:MORPhin [place] 00 e Sulfate) Lactulose No Notes: Memori a 667 MG/ML 7-26 (Same l Oral 22:23: as:Chronul [place] Solution 00 ac) Morphine No Notes: Memoria 7-26 (Same l 22:23: as:MORPhin [place] 00 e Sulfate) Lactulose No Notes: Memori a 667 MG/ML 7-26 (Same l Oral 22:23: as:Chronul [place] Solution 00 ac) Morphine No Notes: Memoria 7-26 (Same l 22:23: as:MORPhin [place] 00 e Sulfate) Lactulose No Notes: Memori a 667 MG/ML 7-26 (Same l Oral 22:23: as:Chronul [place] Solution 00 ac) Morphine No Notes: Memoria 7- (Same l 22:23: as:MORPhin [place] 00 e Sulfate) Metoprolol No Notes: Memor ia 7- (Same as: l 22:16: Lopressor) [place] 00 Push over 2 minutes Metoprolol No Notes: Memor ia 7- (Same as: l 22:16: Lopressor) [place] 00 Push over 2 minutes Metoprolol No Notes: Memor ia 7- (Same as: l 22:16: Lopressor) [place] 00 Push over 2 minutes Metoprolol No Notes: Memor ia 7- (Same as: l 22:16: Lopressor) [place] 00 Push over 2 minutes Metoprolol No Notes: Memor ia - (Same as: l 22:16: Lopressor) [place] 00 Push over 2 minutes Epogen No Notes: Memoria 01-16 (Same as: l 22:00: Procrit) [place] epoetin jennifer 4000 unit/1 ml VL For [...] Take With Food Epogen No Notes: Memoria 7- (Same as: l 22:00: Procrit) [place] 00 [...] Memori a 01-16 Route: l 17:59: SUB-Q, [place] 00 Q6H, Dosing Weight 62.358, kg, PRN [...] oria ne 01-16 Route: l 17:59: IVP, 00 Q5Min, Dosing Weight 62.358, kg, PRN [...] Anthony litzy 01-16 Route: l 17:59: IVP, [place] 00 Q20Min, Dosing Weight 62.358, kg, PRN Elevated BP, Start date: 01/16/19 12:59:00 CDT, Duration: 2 doses or times, Stop date: Limited # of times Labetalol 2019-0 No 10 mg, Memori a 01-16 Route: l 17:59: IVP, [place] 00 Q5Min, Dosing Weight 62.358, kg, PRN [...] Memori a 01-16 Route: l 17:59: SUB-Q, [place] 00 Q6H, Dosing Weight 62.358, kg, PRN [...] ia 01-16 Route: l 17:59: IVP, ONCE, [place] 00 Dosing Weight 62.358, kg, PRN Nausea & Vomiting, Start date: 01/16/19 12:59:00 CDT Flumazenil 2019-0 No 0.2 mg, Anthony litzy 01-16 Route: l 17:59: IVP, PRN, Talon Dosing Weight 62.358, kg, PRN Benzodiaze pine [...] 12:58:00 CDT Acetaminoph 2019-0 No 1,000 mg, Keerthi trujillo en 01-16 Route: PO, l 17:59: Drug form: [place] 00 TAB, ONCE, Dosing Weight 62.358, kg, PRN Pain Score 1-3, Start date: 01/16/19 12:59:00 CDT Hydralazine 2019-0 No 10 mg, Anthony litzy 01-16 Route: l 17:59: IVP, [place] 00 Q20Min, Dosing Weight 62.358, kg, PRN [...] 50 Memoria 01-16 microgram, l 17:59: Route: [place] 00 IVP, Q5Min, Dosing Weight 62.358, kg, [...] 01-16 Route: PO, l 17:59: Drug form: [place] 00 TAB, ONCE, Dosing Weight 62.358, kg, PRN Pain Score 1-3, Start date: 01/16/19 12:59:00 CDT Hydralazine 2019-0 No 10 mg, Anthony litzy 01-16 Route: l 17:59: IVP, [place] 00 Q20Min, Dosing Weight 62.358, kg, PRN [...] moria e 01-16 Route: l 17:59: IVPB, [place] 00 ONCE, Dosing Weight 62.358, kg, PRN Nausea & Vomiting, Start date: 01/16/19 12:59:00 CDT Naloxone 2019-0 No 0.1 mg, Memori a 01-16 Route: l 17:59: SUB-Q, [place] 00 Q6H, Dosing Weight 62.358, kg, PRN [...] 01-16 Route: l 17:59: IVP, PRN, Talon Dosing Weight 62.358, kg, PRN Benzodiaze pine Reversal, Initial dose, Start date: 01/16/19 12:59:00 CDT, Duration: 30 day, Stop date: 02/15/19 12:58:00 CDT Fentanyl 2019-0 No 50 Memoria 01-16 microgram, l 17:59: Route: [place] 00 IVP, Q5Min, Dosing Weight 62.358, kg, PRN Pain Score 7-10, Priority: Routine, Start date: 01/16/19 12:59:00 CDT, Duration: 2 doses or times, Stop date: Limited # of times Hydromorpho 2019-0 No 0.5 mg, Mem oria ne 01-16 Route: l 17:59: IVP, [place] 00 Q5Min, Dosing Weight 62.358, kg, PRN Pain Score 7-10, Start date: 01/16/19 12:59:00 CDT, Duration: 4 doses or times, Stop date: Limited # of times Diphenhydra 2019-0 No 12.5 mg, Me moria mine 01-16 Route: l 17:59: IVP, Drug [place] 00 form: INJ, Q6H, Dosing Weight 62.358, [...] 01-16 Route: PO, l 17:59: Drug form: [place] 00 TAB, ONCE, Dosing Weight 62.358, kg, [...] Memori a 01-16 Route: l 17:59: IVP, [place] 00 Q5Min, Dosing Weight 62.358, kg, PRN [...] ia 01-16 Route: l 17:59: IVP, ONCE, [place] 00 Dosing Weight 62.358, kg, PRN Nausea & Vomiting, Start date: 01/16/19 12:59:00 CDT Flumazenil 2019-0 No 0.2 mg, Anthony litzy 01-16 Route: l 17:59: IVP, PRN, [place] 00 Dosing Weight 62.358, kg, PRN Benzodiaze pine Reversal, Initial dose, Start date: 01/16/19 12:59:00 CDT, Duration: 30 day, Stop date: 02/15/19 12:58:00 CDT Fentanyl 2019-0 No 50 [facility] 01-16 microgram, l 17:59: Route: [place] 00 IVP, Q5Min, Dosing Weight 62.358, kg, [...] MG/ML 01-16 Route: l Inhalant 17:59: NEB, [place] Solution 00 Q20Min, Dosing Weight 62.358, kg, [...] Memori a 01-16 Route: l 17:59: IVP, [place] 00 Q5Min, Dosing Weight 62.358, kg, PRN [...] 01/16/19 Maribell nn (ANES) 12:45:00 CDT phenylephri 0 No Route: IV, Memoria ne (ANES) 01-16 Drug form: l 17:45: INJ, ONCE, Stop date: 01/16/19 12:45:00 CDT esmolol No Route: IV, Anthony litzy (ANES) [...] ONCE, Stop date: 01/16/19 12:45:00 CDT EPINEPHrine 2018-0 No Route: IV, [facility] (ANES) 01-16 Drug form: l 17:43: INJ, ONCE, Stop date: 01/16/19 12:43:00 CDT EPINEPHrine 2019-0 No Route: IV, [facility] (ANES) 01-16 Drug form: l 17:43: INJ, ONCE, Stop date: 01/16/19 12:43:00 CDT EPINEPHrine 2019-0 No Route: IV, [facility] (ANES) 01-16 Drug form: l 17:43: INJ, ONCE, [place] 00 Stop date: 01/16/19 12:43:00 CDT EPINEPHrine 2018-0 No Route: IV, [facility] (ANES) 01-16 Drug form: l 17:43: INJ, ONCE, [place] 00 Stop date: 01/16/19 12:43:00 CDT EPINEPHrine 0 No Route: IV, [facility] (ANES) 01-16 Drug form: l 17:43: INJ, ONCE, Stop date: 01/16/19 12:43:00 CDT calcium No Route: IV, Anthony litzy chloride 01-16 Drug form: l (ANES) 17:33: INJ, ONCE, Maribell Stop date: 01/16/19 12:33:00 CDT calcium 2018-0 No Route: IV, Anthony litzy chloride 01-16 Drug form: l (ANES) 17:33: INJ, ONCE, Maribell Stop date: 01/16/19 12:33:00 CDT calcium 0 No Route: IV, Anthony litzy chloride 01-16 [...] nn Stop date: 01/16/19 12:33:00 CDT propofol 0 No Route: IV, Mem oria (ANES) 01-16 Drug form: l 16:52: INJ, ONCE, [place] 00 Stop date: 01/16/19 11:52:00 CDT Amidate 2018- No Route: IV, Anthony litzy (ANES) 01-16 Drug form: l 16:52: INJ, ONCE, Stop date: 01/16/19 11:52:00 CDT norepinephr No Route: IV, Memoria ine (ANES) 01-16 Drug form: l 16:52: INJ, ONCE, Stop date: 01/16/19 11:52:00 CDT lidocaine 2019-0 No Route: IV, Me moria (ANES) 01-16 Drug form: l 16:52: INJ, ONCE, Stop date: 01/16/19 11:52:00 CDT propofol 2018-0 No Route: IV, Mem oria (ANES) [...] ONCE, Stop date: 01/16/19 11:52:00 CDT propofol 2018-0 No Route: IV, Mem oria (ANES) [...] ONCE, Stop date: 01/16/19 11:52:00 CDT ondansetron 2018-0 No Route: IV, [facility]oria (ANES) 01-16 Drug form: l 16:42: INJ, ONCE, Stop date: 01/16/19 11:42:00 CDT ceFAZolin 2018-0 No Route: IV, Me moria (ANES) 01-16 Drug form: l 16:42: INJ, ONCE, Stop date: 01/16/19 11:42:00 CDT ondansetron 2018-0 No Route: IV, [facility] (ANES) 01-16 Drug form: l 16:42: INJ, ONCE, Stop date: 01/16/19 11:42:00 CDT ceFAZolin 2019-0 No Route: IV, Me moria (ANES) 01-16 Drug form: l 16:42: INJ, ONCE, Stop date: 01/16/19 11:42:00 CDT ondansetron 2019-0 No Route: IV, Memoria (ANES) 01-16 Drug form: l 16:42: INJ, ONCE, Stop date: 01/16/19 11:42:00 CDT ceFAZolin 2019-0 No Route: IV, Me moria (ANES) [...] ONCE, Stop date: 01/16/19 11:37:00 CDT fentaNYL 2019-0 No Route: IV, Mem oria (ANES) 01-16 Drug form: l 16:37: INJ, ONCE, Stop date: 01/16/19 11:37:00 CDT fentaNYL 2019-0 No Route: IV, Mem oria (ANES) 01-16 Drug form: l 16:37: INJ, ONCE, Stop date: 01/16/19 11:37:00 CDT fentaNYL 0 No Route: IV, Mem oria (ANES) 01-16 Drug form: l 16:37: INJ, ONCE, Stop date: 01/16/19 11:37:00 CDT fentaNYL 2019- No Route: IV, Mem oria (ANES) 01-16 Drug form: l 16:37: INJ, ONCE, Stop date: 01/16/19 11:37:00 CDT vancomycin No Route: IV, M emoria (ANES) 1000 01-16 Drug form: l mg 15:50: INJ, Start date: 01/16/19 10:50:00 CDT, Stop date: 01/16/19 11:50:00 CDT vancomycin No Route: IV, M emoria (ANES) 1000 01-16 Drug form: l mg 15:50: INJ, date: 01/16/19 10:50:00 CDT, Stop date: 01/16/19 11:50:00 CDT vancomycin No Route: IV, M emoria (ANES) 1000 01-16 Drug form: l mg 15:50: INJ, Start date: 01/16/19 10:50:00 CDT, Stop date: 01/16/19 11:50:00 CDT vancomycin No Route: IV, M emoria (ANES) 1000 01-16 Drug form: l mg 15:50: INJ, date: 01/16/19 10:50:00 CDT, Stop date: 01/16/19 [...] regular - Route: IV, l 15:40: ONCE, [place] 00 Dosing Weight 62.358, kg, Start date: 01/16/19 10:40:00 CDT, Stop date: 01/16/19 10:40:00 CDT Insulin 2019-0 No 5 unit, Memoria regular 7- Route: IV, l 15:40: ONCE, [place] 00 Dosing Weight 62.358, kg, Start date: 01/16/19 10:40:00 CDT, Stop date: 01/16/19 10:40:00 CDT Insulin 2019-0 No 5 unit, Memoria regular - Route: IV, l 15:40: ONCE, [place] 00 Dosing Weight 62.358, kg, Start date: 01/16/19 10:40:00 CDT, Stop date: 01/16/19 10:40:00 CDT Insulin 2019-0 No 5 unit, [facility]oria regular - Route: IV, l 15:40: ONCE, [place] 00 Dosing Weight 62.358, kg, Start date: 01/16/19 10:40:00 CDT, Stop date: 01/16/19 10:40:00 CDT Insulin 2019-0 No 5 unit, [facility]oria regular - Route: IV, l 15:40: ONCE, [place] 00 Dosing Weight 62.358, kg, Start date: 01/16/19 10:40:00 CDT, Stop date: 01/16/19 10:40:00 CDT Dextrose 2019-0 No 12.5 gm, Memor ia 7- Route: l 15:39: IVPB, [place] 00 ONCE, Dosing Weight 62.358, kg, Start date: 01/16/19 10:39:00 CDT, Stop date: 01/16/19 10:39:00 CDT Dextrose 2019-0 No 12.5 gm, Memor ia - Route: l 15:39: IVPB, [place] 00 ONCE, Dosing Weight 62.358, kg, Start date: 01/16/19 10:39:00 CDT, Stop date: 01/16/19 10:39:00 CDT Dextrose 2019-0 No 12.5 gm, Memor ia - Route: l 15:39: IVPB, [place] 00 ONCE, Dosing Weight 62.358, kg, Start date: 01/16/19 10:39:00 CDT, Stop date: 01/16/19 10:39:00 CDT Dextrose 2019-0 No 12.5 gm, Memor ia - Route: l 15:39: IVPB, [place] 00 ONCE, Dosing Weight 62.358, kg, Start date: 01/16/19 10:39:00 CDT, Stop date: 01/16/19 10:39:00 CDT Dextrose 2019-0 No 12.5 gm, Memor ia 7- Route: l 15:39: IVPB, [place] 00 ONCE, Dosing Weight 62.358, kg, Start date: 01/16/19 10:39:00 CDT, Stop date: 01/16/19 10:39:00 CDT Calcium 2019-0 No 1,000 mL, Memor ia Chloride 7-26 Rate: 25 l 0.0014 13:46: ml/hr, [place] MEQ/ML / 00 Infuse Potassium over: 40 [...] Rate: 25 l 0.9% IV 13:46: ml/hr, [place] 1,000 mL 00 Infuse over: 40 hr, Route: IV, Dosing Weight 62.358 kg, Total Volume: 1,000, Start date: 01/16/19 8:46:00 CDT, Duration: 1 day, Stop date: 01/17/19 8:45:00 CDT, 1.68, m2, 0 Calcium 2019-0 No 1,000 mL, Memor ia Chloride 7-26 Rate: 25 l 0.0014 13:46: ml/hr, [place] MEQ/ML / 00 Infuse Potassium over: 40 [...] Rate: 25 l 0.9% IV 13:46: ml/hr, [place] 1,000 mL 00 Infuse over: 40 hr, [...] Rate: 25 l 0.9% IV 13:46: ml/hr, [place] 1,000 mL 00 Infuse over: 40 hr, [...] Rate: 25 l 0.9% IV 13:46: ml/hr, [place] 1,000 mL 00 Infuse over: 40 hr, Route: IV, Dosing Weight 62.358 kg, Total Volume: 1,000, Start date: 01/16/19 8:46:00 CDT, Duration: 1 day, Stop date: 01/17/19 8:45:00 CDT, 1.68, m2, 0 Vitamin B12 2019-0 Yes monthly, 0 [facility] 7-25 Refill(s) l 18:31: [place] 00 Vitamin B12 2019-0 Yes monthly, 0 [facility] 7-25 Refill(s) l 18:31: [place] 00 Vitamin B12 2019-0 Yes monthly, 0 [facility]oria 7-25 Refill(s) l 18:31: [place] 00 Vitamin B12 2019-0 Yes monthly, 0 [facility] 7-25 Refill(s) l 18:31: [place] 00 Vitamin B12 2019-0 Yes monthly, 0 [facility] 7-25 Refill(s) l 18:31: [place] 00 allopurinol 2019-0 Yes 100 mg = [...] PO, l 30 MG 18:30: Daily, # [place] Extended 00 30 tab, 0 Release Refill(s) Tablet [Nifedical] allopurinol 2019- Yes 100 mg = 1 [facility] 100 mg oral 7-25 tab, PO, l tablet 18:30: Daily, # [place] 90 tab, 1 Refill(s) Aspirin 81 2019-0 Yes 81 mg = 1 Me moria MG Chewable 7-25 tab, PO, l Tablet 18:30: Daily, [place] 00 tab, 0 Refill(s) 24 HR 2018- No 30 mg = 1 [facility] Nifedipine 7-25 tab, PO, l 30 MG 18:30: Daily, # [place] Extended 30 tab, 0 Release Refill(s) Tablet [Nifedical] allopurinol 2018- Yes 100 mg = 1 [facility] 100 mg oral 7-25 tab, PO, l tablet 18:30: Daily, # [place] 90 tab, 1 Refill(s) Aspirin 81 2018- Yes 81 mg = 1 Me moria MG Chewable 7-25 tab, PO, l Tablet 18:30: Daily, [place] 00 tab, 0 Refill(s) 24 HR 2018- No 30 mg = 1 [facility] Nifedipine 7-25 tab, PO, l 30 MG 18:30: Daily, # [place] Extended 30 tab, 0 Release Refill(s) Tablet [Nifedical] allopurinol 2019-0 Yes 100 mg = 1 [facility] 100 mg oral 7-25 tab, PO, l tablet 18:30: Daily, # [place] 90 tab, 1 Refill(s) Aspirin 81 2019-0 Yes 81 mg = 1 Me moria MG Chewable 7-25 tab, PO, l Tablet 18:30: Daily, [place] 00 tab, 0 Refill(s) 24 [place] [address] No 30 mg = 1 [facility] Nifedipine 7-25 tab, PO, l 30 MG 18:30: Daily, # [place] Extended 30 tab, 0 Release Refill(s) Tablet [Nifedical] Aspirin 81 2019-0 Yes 81 mg = 1 Me moria MG Chewable 7-25 tab, PO, l Tablet 18:30: Daily, [place] 00 tab, 0 Refill(s) 24 HR 2019-0 No 30 mg = 1 [facility] Nifedipine 7-25 tab, PO, l 30 MG 18:30: Daily, # [place] Extended 30 tab, 0 Release Refill(s) Tablet [Nifedical] allopurinol 2018- Yes 100 mg = 1 [facility] 100 mg oral 7-25 tab, PO, l tablet 18:30: Daily, # [place] 00 90 tab, 1 Refill(s) paricalcito 2018- Yes 1 Memori a l 0.001 MG [...] microgram l Oral 18:29: = 1 cap, [place] Capsule 00 PO, Daily, # 30 cap, [...] Daily, # 30 cap, 0 Refill(s) levothyroxi 0 Yes 50 Memori a ne 50 mcg 7-25 microgram l (0.05 mg) 18:29: = 1 tab, Herm vin oral tablet 00 PO, Daily, # 30 tab, 0 Refill(s) paricalcito Yes 1 Memori a l 0.001 MG 7-25 microgram l Oral 18:29: = 1 cap, [place] Capsule 00 PO, Daily, # 30 cap, 0 Refill(s) levothyroxi 0 Yes 50 Memori a ne 50 mcg 7-25 microgram l (0.05 mg) 18:29: = 1 tab, Herm vin oral tablet 00 PO, Daily, # 30 tab, 0 Refill(s) paricalcito Yes 1 Memori a l 0.001 MG 7-25 microgram l Oral 18:29: = 1 cap, [place] Capsule 00 PO, Daily, # 30 cap, 0 Refill(s) levothyroxi 2019- Yes 50 Memori a ne 50 mcg 7-25 microgram l (0.05 mg) 18:29: = 1 tab, Herm vin oral tablet 00 PO, Daily, # 30 tab, 0 Refill(s) liothyronin 2018-0 Yes 5 Memori a e 5 mcg 7-25 microgram l oral tablet 18:28: = 1 tab, [place] 00 PO, Daily, # 30 tab, 0 Refill(s) Ferate 256 Yes 256 mg = 1 M emoria mg (28 mg 7-25 tab, PO, l elemental 18:28: Daily, 0 Herm vin iron) oral 00 Refill(s) tablet liothyronin 2018-0 Yes 5 Memori a e 5 mcg [...] # 30 tab, 0 Refill(s) Ferate 256 0 Yes 256 mg = 1 M emoria mg (28 mg 7-25 tab, PO, l elemental 18:28: Daily, 0 Herm vin iron) oral 00 Refill(s) tablet Ferate 256 0 Yes 256 mg = 1 M emoria mg (28 mg 7-25 tab, PO, l elemental 18:28: Daily, 0 Herm vin iron) oral 00 Refill(s) tablet liothyronin 2018-0 Yes 5 Memori a e 5 mcg 7-25 microgram l oral tablet 18:28: = 1 tab, [place] 00 PO, Daily, # 30 tab, 0 Refill(s) Hydralazine 2018- Yes 100 mg = 1 [facility] Hydrochlori 7-25 tab, PO, l de 100 MG 18:27: TID, # 90 Her cardenas Oral Tablet 00 tab, 3 Refill(s) atorvastati Yes 40 mg = 1 M emoria n 40 mg 7-25 tab, PO, l oral tablet 18:27: Bedtime, # [place] 00 30 tab, 0 Refill(s) Hydralazine Yes 100 mg = 1 [facility] Hydrochlori 7-25 tab, PO, l de 100 MG 18:27: TID, # 90 Her cardenas Oral Tablet 00 tab, 3 Refill(s) atorvastati Yes 40 mg = 1 M emoria n 40 mg 7-25 tab, PO, l oral tablet 18:27: Bedtime, # [place] 00 30 tab, 0 Refill(s) Hydralazine Yes 100 mg = 1 [facility] Hydrochlori 7-25 tab, PO, l de 100 MG 18:27: TID, # 90 Her cardenas Oral Tablet 00 tab, 3 Refill(s) atorvastati Yes 40 mg = 1 M emoria n 40 mg 7-25 tab, PO, l oral tablet 18:27: Bedtime, # [place] 00 30 tab, 0 Refill(s) Hydralazine 2018- Yes 100 mg = 1 [facility] Hydrochlori 7-25 tab, PO, l de 100 MG 18:27: TID, # 90 Her cardenas Oral Tablet 00 tab, 3 Refill(s) atorvastati 2018- Yes 40 mg = 1 M emoria n 40 mg 7-25 tab, PO, l oral tablet 18:27: Bedtime, # [place] 00 30 tab, 0 Refill(s) Hydralazine 2018- Yes 100 mg = 1 [facility] Hydrochlori 7-25 tab, PO, l de 100 MG 18:27: TID, # 90 Her cardenas Oral Tablet 00 tab, 3 Refill(s) atorvastati Yes 40 mg = 1 M emoria n 40 mg 7-25 tab, PO, l oral tablet 18:27: Bedtime, # [place] 00 30 tab, 0 Refill(s) Clonidine Yes [...] moria 7-25 infuse l 18:00: over 2.5 [place] 00 hours For adult patients only: Round [...] moria 7-25 infuse l 18:00: over 2.5 [place] 00 hours For adult patients only: Round to nearest 250 mg per Medical Staff approval MEDICATION WASTE Product Size: 1000 mg Product Wasted: ___ mg Ancef + 2019 No Notes: [facility] sterile 7-25 (Same As: [...] Ancef + 2019- No Notes: [facility] sterile 7-25 (Same As: l water 20 mL 18:00: Ancef, Herm vin Kefzol) MEDICATION WASTE Product [...] water 20 mL 18:00: Ancef, Herm vin Kefzol) MEDICATION WASTE Product Size: 1000 mg Product Wasted: ___ mg Vancomycin 2019- No 2001 mg: Me moria 7-25 infuse l 18:00: over 2.5 [place] 00 hours For adult patients only: Round to nearest 250 mg per Medical Staff approval MEDICATION WASTE Product Size: 1000 mg Product Wasted: ___ mg Ancef + 2018- No Notes: [facility] sterile 7-25 (Same As: l water 20 mL 18:00: Ancef, Herm vin Kefzol) MEDICATION WASTE Product Size: 1000 mg Product Wasted: ___ mg cloniDINE 2019- Yes .3mg Take 0.3 Univ ers (CATAPRES) 7-08 mg by ity of 0.3 mg 19:53: mouth 3 [place] tablet 14 (three) Medical times Branch daily. hydralAZINE 2018- Yes 100mg Take 100 U nivers (APRESOLINE 7-08 mg by ity of ) 50 mg 19:53: mouth [place] tablet 14 every 8 Medical (eight) Branch hours. atorvastati 2019- Yes 40mg Take 40 mg Univers n (LIPITOR) 7-08 by mouth ity of 40 mg 19:53: at [place] tablet 14 bedtime. Medical Branch Ferrous Yes Take by Univers Gluconate 7-08 mouth. ity of (IRON HIGH 19:53: [place] POTENCY) 14 Medical 240 mg (27 Branch mg iron) tablet liothyronin 2019 Yes 5ug Take 5 mcg Univers e (CYTOMEL) 7-08 by mouth ity of 5 mcg 19:53: daily. [place] tablet 14 Medical Branch levothyroxi 0 Yes 50ug Take 50 Uni vers ne 7-08 mcg by ity of (SYNTHROID) 19:53: mouth [place] 50 mcg 14 every Medical tablet morning. Branch paricalcito Yes 1ug Take 1 mcg Univers l (ZEMPLAR) 7-08 by mouth ity of 1 mcg 19:53: daily. [place] capsule 14 Medical Branch allopurinol Yes 100mg Take 100 U nivers (ZYLOPRIM) 7-08 mg by ity of 100 mg 19:53: mouth [place] tablet 14 daily. Medical Branch ASPIRIN Yes Take by Univers (ASPIR-81 7-08 mouth. ity of ORAL) 19:53: [place] 14 Medical Branch traMADOL 0 Yes 50mg Take 50 mg Uni vers (ULTRAM) 50 7-08 by mouth ity of mg tablet 19:53: every 6 [place] 14 (six) Medical hours as Branch needed. furosemide Yes 40mg Take 40 mg U nivers (LASIX) 40 7-08 by mouth ity o f mg tablet 19:53: as needed. [place] 14 [facility] cloniDINE 0 Yes .3mg Take 0.3 Univ ers (CATAPRES) 7-08 mg by ity of 0.3 mg 14:53: mouth 3 [place] tablet 14 (three) Medical times Branch daily. hydralAZINE 2019-0 Yes 100mg Take 100 U nivers (APRESOLINE [...] daily. [place] tablet 14 Medical Branch levothyroxi 2019- Yes 50ug Take 50 Uni vers ne 7-08 mcg by ity of (SYNTHROID) 14:53: mouth [place] 50 mcg 14 every Medical tablet morning. Branch paricalcito 2019 Yes 1ug Take 1 mcg Univers l (ZEMPLAR) 7-08 by mouth ity of 1 mcg 14:53: daily. [place] capsule 14 Medical Branch allopurinol Yes 100mg Take 100 U nivers (ZYLOPRIM) 7-08 mg by ity of 100 mg 14:53: mouth [place] tablet 14 daily. Medical Branch ASPIRIN Yes Take by Univers (ASPIR-81 7-08 mouth. ity of ORAL) 14:53: [place] 14 Medical Branch traMADOL Yes 50mg Take 50 mg Uni vers (ULTRAM) 50 7-08 by mouth ity of mg tablet 14:53: every 6 [place] 14 (six) Medical hours as Branch needed. furosemide Yes 40mg Take 40 mg U nivers (LASIX) 40 7-08 by mouth ity o f mg tablet 14:53: [place] needed. [place] 14 [facility] Branch Polyethylen 2015-06 Yes 1{packe Take 1 U nivers e Glycol 2-06 t} Packet by ity of 3350 00:00: mouth [place] (MIRALAX) 00 daily. [facility] 17 gram [place] powder Polyethylen 2015-06 Yes 1{packe Take 1 U nivers e Glycol 2-06 t} Packet by ity of 3350 00:00: mouth [place] (MIRALAX) 00 daily. [facility] 17 gram [place] powder Immunizations Ordered Immunization Filled Immunization Date [...] 00:00:00 Moderna COVID-19 2020-08-30 Completed Vaccine 00:00:00 [id number] 2020-08-27 Completed Anthony rial [id number]<chávez 00:00:00 Herm vin p>1</sup> [id number] 2020-08-27 Completed Anthony rial [id number]<chávez 00:00:00 Herm vin p>1</sup> [id number] 2020-08-27 Completed Anthony rial [id number]<chávez 00:00:00 Herm vin p>1</sup> [id number] 2020-08-27 Completed Anthony rial [id number]<chávez 00:00:00 Herm vin p>1</sup> [id number] 2020-08-27 Completed Anthony rial [id number]<chávez 00:00:00 Herm [...] 01:56:00 158 mm[Hg] Univer sity of pressure [facility] Diastolic blood 2022-07-12 01:56:00 64 mm[Hg] Unive rsity of pressure [facility] Heart rate 2022-07-12 01:56:00 72 /min [facility] Respiratory rate 2022-07-12 01:56:00 16 /min General acute hospital Oxygen saturation in 2022-07-12 01:56:00 100 /min [facility] Arterial blood by [facility] [place] [facility] Pulse oximetry Branch Body temperature 2022-07-11 23:43:00 36.83 [facility] Body weight 2022-07-11 23:43:00 65.772 kg [facility] BMI 2022-07-11 23:43:00 25.69 kg/m2 [facility] HEIGHT 2021-02-06 01:37:00 160 cm WEIGHT 2021-02-06 01:37:00 62.7 kg WEIGHT 2020-12-31 20:30:00 58.968 kg HEIGHT 2020-12-27 07:43:00 160 cm WEIGHT 2020-12-27 07:43:00 58.968 kg HEIGHT 2020-12-15 08:54:00 160 cm WEIGHT 2020-12-15 08:54:00 58.968 kg Systolic (mm Hg) 2023-01-09 16:21:00 Anthony rial [place] Diastolic (mm Hg) 2023-01-09 16:21:00 Mem orial [place] Heart Rate 2023-01-09 16:21:00 [facility] [place] Systolic (mm Hg) 2022-12-07 18:22:00 Anthony rial [place] Diastolic (mm Hg) 2022-12-07 18:22:00 Mem orial [place] Heart Rate 2022-12-07 18:22:00 [facility] [place] Weight Measured 2022-03-28 14:21:00 138.30 pounds Height Measured 2022-03-28 14:21:00 63.00 inches Body Temperature 2022-03-28 14:21:00 98.30 degrees Heart Rate 2022-03-28 14:21:00 56.00 /min Respiratory Rate 2022-03-28 14:21:00 BP Systolic 2022-03-28 14:21:00 88 mm[Hg] BP Diastolic 2022-03-28 14:21:00 53 mm[Hg] BP Systolic 2022-03-28 13:48:00 88 mm[Hg] BP [...] Systolic (mm Hg) 2021-04-28 18:12:00 Anthony rial [place] Diastolic (mm Hg) 2021-04-28 18:12:00 Mem orial [place] Heart Rate 2021-04-28 18:12:00 [facility] [place] Respitory Rate 2021-04-28 18:12:00 Memori al [place] BP Systolic 2021-03-09 11:49:00 143 mm[Hg] BP Diastolic 2021-03-09 11:49:00 71 mm[Hg] Weight Measured 2021-03-09 11:49:00 145.00 pounds Height Measured 2021-03-09 11:49:00 63.00 inches Body Temperature 2021-03-09 11:49:00 97.50 degrees Heart Rate 2021-03-09 11:49:00 58.00 /min Respiratory Rate 2021-03-09 11:49:00 Systolic (mm Hg) 2021-01-31 19:10:00 Anthony rial [place] Diastolic (mm Hg) 2021-01-31 19:10:00 Mem orial [place] Heart Rate 2021-01-31 19:10:00 [facility] [place] Respitory Rate 2021-01-31 19:10:00 Memori al [place] Systolic blood 2021-01-03 15:59:00 149 mm[Hg] [facility] Diastolic blood 2021-01-03 15:59:00 66 mm[Hg] [facility] Heart rate 2021-01-03 15:59:00 60 /min [facility] Body temperature 2021-01-03 15:59:[address] [facility] Respiratory rate 2021-01-03 15:59:00 18 /min [facility] Oxygen saturation in 2021-01-03 15:59:00 100 /min [facility] Arterial blood by Medical Ce nter Pulse oximetry Body weight 2020-12-31 20:30:00 58.968 kg [facility] BMI 2020-12-31 20:30:00 23.03 kg/m2 [facility] Body height 2020-12-27 07:43:00 160 cm [facility] Systolic (mm Hg) 2020-10-31 14:51:00 Anthony rial [place] Diastolic (mm Hg) 2020-10-31 14:51:00 Mem orial [place] Heart Rate 2020-10-31 14:51:00 [facility] [place] Respitory Rate 2020-10-31 14:51:00 Memori al [place] Height 2020-10-31 14:51:00 160.02 cm [facility] [place] Weight 2020-10-31 14:51:00 [facility] [place] BMI Calculated 2020-10-31 14:51:00 Memori al [place] Systolic (mm Hg) 2020-07-20 19:53:00 Anthony rial [place] Diastolic (mm Hg) 2020-07-20 19:53:00 Mem orial [place] Heart Rate 2020-07-20 19:53:00 [facility] [place] Respitory Rate 2020-07-20 19:53:00 Memori al [place] Height 2020-07-20 19:53:00 160.02 cm [facility] [place] Weight 2020-07-20 19:53:00 [facility] [place] BMI Calculated 2020-07-20 19:53:00 Memori al [place] Systolic (mm Hg) 2020-05-26 20:30:00 Anthony rial [place] Diastolic (mm Hg) 2020-05-26 20:30:00 Mem orial [place] Systolic (mm Hg) 2020-05-26 20:00:00 Anthony rial [place] Diastolic (mm Hg) 2020-05-26 20:00:00 Mem orial [place] Respitory Rate 2020-05-26 19:45:00 Memori al [place] Systolic (mm Hg) 2020-05-26 19:45:00 Anthony rial [place] Diastolic (mm Hg) 2020-05-26 19:45:00 Mem orial [place] Respitory Rate 2020-05-26 19:30:00 Memori al [place] Respitory Rate 2020-05-26 19:15:00 Memori al [place] Height 2020-05-26 15:59:00 160.02 cm [facility] [place] Weight 2020-05-26 15:59:00 [facility] [place] BMI Calculated 2020-05-26 15:59:00 Memori al [place] Height 2020-05-25 21:05:00 160.02 cm [facility] [place] Weight 2020-05-25 21:05:00 [facility] [place] BMI Calculated 2020-05-25 21:05:00 Memori al [place] Respitory Rate 2020-05-17 21:00:00 Mem[facility] al [place] Systolic (mm Hg) 2020-05-17 21:00:00 Anthony rial [place] Diastolic (mm Hg) 2020-05-17 21:00:00 Mem orial [place] Respitory Rate 2020-05-17 20:00:00 Memori al [place] Systolic (mm Hg) 2020-05-17 20:00:00 Anthony rial [place] Diastolic (mm Hg) 2020-05-17 20:00:00 Mem orial [place] Respitory Rate 2020-05-17 19:45:00 Memori al [place] Systolic (mm Hg) 2020-05-17 19:45:00 Anthony rial [place] Diastolic (mm Hg) 2020-05-17 19:45:00 Mem orial [place] Height 2020-05-17 16:00:00 160.02 cm [facility] [place] Weight 2020-05-17 16:00:00 [facility] [place] BMI Calculated 2020-05-17 16:00:00 Memori al [place] Temperature Oral (F) 2020-04-08 21:41:00 97.9 F [facility] [place] Systolic (mm Hg) 2020-04-08 21:41:00 [facility] Diastolic (mm Hg) 2020-04-08 21:41:00 [facility] Respitory Rate 2020-04-08 16:00:00 [facility] Systolic (mm Hg) 2020-04-08 16:00:00 [facility] Diastolic (mm Hg) 2020-04-08 16:00:00 [facility] Temperature Oral (F) 2020-04-08 16:00:00 98.0 F [facility] Respitory Rate 2020-04-08 15:45:00 [facility] Systolic (mm Hg) 2020-04-08 15:45:00 [facility] Diastolic (mm Hg) 2020-04-08 15:45:00 [facility] Respitory Rate 2020-04-08 15:30:00 [facility] Temperature Oral (F) 2020-04-08 12:30:00 98.4 F [facility] Heart Rate 2020-04-08 04:31:00 [facility] Heart Rate 2020-04-07 23:22:00 [facility] Heart Rate 2020-04-06 12:22:00 [facility] Height 2020-04-06 02:48:00 170.18 cm [facility] Weight 2020-04-06 02:48:00 [facility] BMI Calculated 2020-04-06 02:48:00 [facility] Height 2020-04-05 23:14:00 170.18 cm [facility] BMI Calculated 2020-04-05 23:14:00 [facility] Weight 2020-04-05 23:14:00 [facility] BP Systolic 2020-01-12 08:17:00 BP Diastolic 2020-01-12 [...] Diastolic (mm Hg) 2019-03-10 17:45:00 [facility] Systolic (mm Hg) 2019-03-10 17:30:00 [facility] Diastolic (mm Hg) 2019-03-10 17:30:00 [facility] Heart Rate 2019-03-10 17:07:00 [facility] Respitory Rate 2019-03-10 17:07:00 [facility] Systolic (mm Hg) 2019-03-10 17:07:00 [facility] Diastolic (mm Hg) 2019-03-10 17:07:00 [facility] Heart Rate 2019-03-10 16:15:00 [facility] Respitory Rate 2019-03-10 15:30:00 [facility] Heart Rate 2019-03-10 15:30:00 [facility] Heart Rate 2019-01-18 16:07:00 [facility] Temperature Oral (F) 2019-01-18 16:07:00 98.2 F [facility] Respitory Rate 2019-01-18 16:07:00 [facility] Systolic (mm Hg) 2019-01-18 16:07:00 [facility] Diastolic (mm Hg) 2019-01-18 16:07:00 [facility] Respitory Rate 2019-01-18 14:03:00 [facility] Systolic (mm Hg) 2019-01-18 12:32:00 [facility] Diastolic (mm Hg) 2019-01-18 12:32:00 [facility] Temperature Oral (F) 2019-01-18 12:32:00 98.2 F [facility] Heart Rate 2019-01-18 12:32:00 [facility] Respitory Rate 2019-01-18 12:32:00 [facility] Temperature Oral (F) 2019-01-18 08:54:00 98.4 F [facility] Heart Rate 2019-01-18 08:54:00 [facility] Systolic (mm Hg) 2019-01-18 08:54:00 [facility] Diastolic (mm Hg) 2019-01-18 08:54:00 [facility] BMI Calculated 2019-01-16 13:43:00 [facility] Weight 2019-01-16 13:43:00 [facility] Height 2019-01-16 13:43:00 160.02 cm [facility] Weight 2019-01-15 17:57:00 [facility] BMI Calculated 2019-01-15 17:57:00 [facility] Height 2019-01-15 17:57:00 162.56 cm [facility] Temperature Oral (F) 2012-05-19 16:43:00 96.3 F [facility] Heart Rate 2012-05-19 16:43:00 [facility] Respitory Rate 2012-05-19 16:43:00 [facility] Systolic (mm Hg) 2012-05-19 16:43:00 [facility] Diastolic (mm Hg) 2012-05-19 16:43:00 [facility] Weight 2012-05-19 16:43:00 [facility] Height 2012-05-19 16:43:00 160.02 cm [facility] Temperature Oral (F) 2012-01-28 14:02:00 97.8 F [facility] Systolic (mm Hg) 2012-01-28 14:02:00 [facility] Heart Rate 2012-01-28 14:02:00 [facility] Respitory Rate 2012-01-28 14:02:00 [facility] Diastolic (mm Hg) 2012-01-28 14:02:00 [facility] Weight 2012-01-28 14:02:00 [facility] Height 2012-01-28 14:02:00 160.02 cm [facility] Respitory Rate 2012-01-10 14:26:00 [facility] Heart Rate 2012-01-10 14:26:00 [facility] Temperature Oral (F) 2012-01-10 14:26:00 98.3 F [facility] Diastolic (mm Hg) 2012-01-10 14:26:00 [facility] Systolic (mm Hg) 2012-01-10 14:26:00 [facility] Weight 2012-01-10 14:26:00 [facility] Height 2012-01-10 14:26:00 160.02 cm [facility] Procedures Procedure Date / Time Performing Clinician Source Performed XR HIPS 3 VW RIGHT 2022-07-12 00:44:47 [facility] CONSENT/REFUSAL FOR 2022-07-11 23:27:12 Doctor Unassigned, [facility] DIAGNOSIS AND TREATMENT [facility] XR CERVICAL SPINE AP 2021-05-10 21:08:13 [facility] LATERAL FLEXION AND EXTENSION [id number] 2021-02-15 00:00:00 [facility] [id number] 2021-02-15 00:00:00 [facility] [id number] 2021-02-15 00:00:00 [facility] XR CERVICAL SPINE AP 2021-02-02 18:35:55 [facility] LATERAL FLEXION AND EXTENSION [id number] 2021-01-08 00:00:00 [facility] [id number] 2021-01-08 00:00:00 [facility] [id number] 2021-01-08 00:00:00 [facility] [id number] 2021-01-08 00:00:00 [facility] [id number] 2021-01-08 00:00:00 [facility] [id number] 2021-01-08 00:00:00 [facility] [id number] 2021-01-08 00:00:00 [facility] [id number] 2021-01-08 00:00:00 [facility] [id number] 2021-01-08 00:00:00 [facility] [id number] 2021-01-08 00:00:00 [facility] [id number] 2021-01-08 00:00:00 [facility] [id number] 2021-01-08 00:00:00 [facility] [id number] 2021-01-08 00:00:00 [facility] SPINE CERVICAL 2021-01-03 11:09:00 Debbie Holguin [facility] WITHOUT IV CONTRAST Center XR CHEST 1 VIEW 2021-01-03 07:35:00 Sarah Allen [facility] Medical PORTABLE / BEDSIDE Center CBC W/PLT COUNT & AUTO 2021-01-03 05:05:00 Sarah Allen [facility] COMPREHENSIVE METABOLIC 2021-01-03 05:05:00 Sarah Allen CH [facility] MAGNESIUM 2021-01-03 05:05:00 Sarah Allen [facility] [id number] 2021-01-03 00:00:00 [facility] [id number] 2021-01-03 00:00:00 [facility] [id number] 2021-01-03 00:00:00 [facility] [id number] 2021-01-03 00:00:00 [facility] [id number] 2021-01-03 00:00:00 [facility] [id number] 2021-01-03 00:00:00 [facility] [id number] 2021-01-03 00:00:00 [facility] [id number] 2021-01-03 00:00:00 [facility] [id number] 2021-01-03 00:00:00 [facility] [id number] 2021-01-03 00:00:00 [facility] [id number] 2021-01-03 00:00:00 [facility] [id number] 2021-01-03 00:00:00 [facility] [id number] 2021-01-03 00:00:00 [facility] [id number] 2021-01-03 00:00:00 [facility] [id number] 2021-01-03 00:00:00 [facility] [id number] 2021-01-03 00:00:00 [facility] [id number] 2021-01-03 00:00:00 [facility] [id number] 2021-01-03 00:00:00 [facility] [id number] 2021-01-03 00:00:00 [facility] [id number] 2021-01-03 00:00:00 [facility] [id number] 2021-01-03 00:00:00 [facility] [id number] 2021-01-03 00:00:00 [facility] [id number] 2021-01-03 00:00:00 [facility] [id number] 2021-01-03 00:00:00 [facility] [id number] 2021-01-03 00:00:00 [facility] [id number] 2021-01-03 00:00:00 [facility] [id number] 2021-01-03 00:00:00 [facility] [id number] 2021-01-03 00:00:00 [facility] [id number] 2021-01-03 00:00:00 [facility] CBC W/PLT COUNT & AUTO 2021-01-02 05:45:00 Ezio Terry I [facility] DIFFERENTIAL Center BASIC METABOLIC PANEL 2021-01-02 05:45:00 Ezio Terry [facility] () [place] BASIC METABOLIC PANEL 2021-01-01 05:17:00 Rae [facility] () Center PHOSPHORUS 2021-01-01 05:17:00 Rae [facility] CBC W/PLT COUNT & AUTO 2021-01-01 05:17:00 Rae, [facility] DIFFERENTIAL Center APTT 2020-12-31 14:30:[address] [facility] LAMINOPLASTY,CERVICAL 2020-12-31 14:22:00 Gianna Barnett [facility] DECOMPRESSION SPINAL Center CORD BASIC METABOLIC PANEL 2020-12-31 06:41:00 [facility]US 2020-12-31 05:29:[facility] W/[facility]T COUNT & AUTO 2020-12-31 05:29:00 Rae [facility] Center IR CENTRAL VENOUS 2020-12-30 14:00:00 Ezio Terry [facility] CATHETER PLACEMENT Center (JUGULAR OR FEMORAL) XR CHEST 1 VIEW 2020-12-30 05:52:00 Sarah Allen [facility] PORTABLE / BEDSIDE Center PHOSPHORUS 2020-12-30 04:42:00 [facility] & AUTO 2020-12-30 04:42:00 Rae [facility] Center COMPREHENSIVE METABOLIC 2020-12-30 04:42:00 [facility] [place] MAGNESIUM 2020-12-30 04:42:00 Sarah Allen [facility] CT SPINE CERVICAL 2020-12-29 13:47:00 [facility] Center HC ARTERIAL DOPPLER ARM 2020-12-29 08:53:00 Ezio [facility] HC VENOUS DOPPLER EXT 2020-12-29 08:00:00 Ezio [facility] HEPATITIS B SURFACE 2020-12-29 04:24:00 Josselyn [facility] ANTIGEN [place] HEPATITIS B SURFACE 2020-12-29 04:24:00 Josselyn [facility] ANTIBODY Center XR CHEST 1 VIEW 2020-12-28 11:21:00 [facility] XR HIP 2 VIEWS LEFT 2020-12-28 10:10:00 [facility]OLIC 2020-12-28 04:10:00 Sarah Allen [facility] PANEL [place] CBC W/PLT COUNT & AUTO 2020-12-28 04:10:00 Sarah Allen [facility] DIFFERENTIAL Center MAGNESIUM 2020-12-28 04:10:00 [facility] NON-SPECIFIC 2020-12-27 12:50:00 Gianna Barnett [facility] UP TO 1 HOUR Center ABORH, MANUAL 2020-12-27 11:27:00 Laura Mcdonald [facility] LAMINE[facility]OM[facility],CERVICAL 2020-12-27 09:35:00 Gianna Barnett I [facility] FACETECTOMY/ Center FORAMINOTOMY/ DECOMPRESSION ALLOGRAFT,FOR SPINE 2020-12-27 09:35:00 Gianna Barnett [facility] SURGERY Center TYPE AND SCREEN, 2020-12-27 08:42:00 Figueredo, [facility] AUTOMATED Center PT/APTT 2020-12-27 08:42:00 Ericka [facility] POTASSIUM 2020-12-27 08:42:00 Terell [facility] BASIC METABOLIC PANEL 2020-12-22 11:24:00 Gianna Barnett [facility] (7) Center CBC W/PLT COUNT & AUTO 2020-12-22 11:24:00 [facility] PT/APTT 2020-12-22 11:24:00 [facility] AUTHORIZATION FOR 2020-06-10 06:01:00 Doctor Unassigned, [facility] RELEASE OF PHI [facility] Colectomy [facility] Total hysterectomy [facility] vin Thyroidectomy [facility] Plan of Care Planned Activity Planned Date Details Comments Source Future Scheduled 2023-02-22 INFLUENZA VACCINE [facility] Test 00:00:00 (Season Ended) [code = Medic al Center INFLUENZA VACCINE (Season Ended)] Future Scheduled 2023-02-22 Influenza Vaccine (#1[facility]00 [code = Influenza Medical Ce nter Vaccine (#1)] Future Scheduled 2023-01-23 COVID-19 VACCINE ([facility] - [facility] Test 23:07:21 Mixed Product series) [code = COVID-19 VACCINE (4 - Mixed Product series)] Future Scheduled 2023-01-23 [facility]INE [facility] 23:07:21 [code = INFLUENZA VACCINE] Future Scheduled 2023-01-23 65+ [facility] 23:07[facility]21 VACCINE (1 - PCV) [code = 65+ PNEUMOCOCCAL VACCINE (1 - PCV)] Future Scheduled 2023-01-23 Hepatitis C screening [facility] Test 23:07:21 (procedure) [code = 927328357] Future Scheduled 2023-01-23 BREAST CANCER [facility] Test 23:07:21 SCREENING [code = BREAST CANCER SCREENING] Future Scheduled 2023-01-23 SHINGLES VACCINES ([address] [facility] Test 23:07:21 of 2) [code = SHINGLES VACCINES (1 of 2)] Future Scheduled 2022-09-27 65+ [facility] Test 04:46:03 VACCINE (1 - PCV) [code = 65+ PNEUMOCOCCAL VACCINE (1 - PCV)] Future Scheduled 2022-09-27 Hepatitis C screening [facility] Test 04:46:03 (procedure) [code = 795979577] Future Scheduled 2022-09-27 SHINGLES VACCINES (1 Met [facility] Test 04:46:03 of 2) [code = SHINGLES VACCINES (1 of 2)] Future Scheduled 2022-09-27 BREAST CANCER [facility] Test 04:46:03 SCREENING [code = BREAST CANCER SCREENING] Future Scheduled 2022-09-27 COLONOSCOPY SCREENING [facility] Test 04:46:03 [code = COLONOSCOPY SCREENING] Future Scheduled 2022-09-27 COVID-19 VACCINE (4 - [facility] Test 04:46:03 Booster) [code = COVID-19 VACCINE (4 - Booster)] Future Scheduled 2022-09-27 INFLUENZA VACCINE [email or web address] Test 04:46:03 [code = INFLUENZA VACCINE] Future Scheduled 2022-09-27 65+ [facility]AL [facility] Test 04:46:03 VACCINE (1 - PCV) [code = 65+ PNEUMOCOCCAL VACCINE (1 - PCV)] Future Scheduled 2022-09-27 Hepatitis C screening [facility] Test 04:46:03 (procedure) [code = 558617939] Future Scheduled 2022-09-27 SHINGLES VACCINES (1 Met [facility] Test 04:46:03 of 2) [code = SHINGLES VACCINES (1 of 2)] Future Scheduled 2022-09-27 BREAST CANCER [facility] Test 04:46:03 SCREENING [code = BREAST CANCER SCREENING] Future Scheduled 2022-09-27 COLONOSCOPY SCREENING [facility] Test 04:46:03 [code = COLONOSCOPY SCREENING] Future Scheduled 2022-09-27 COVID-19 VACCINE (4 - [facility] Test 04:46:03 Booster) [code = COVID-19 VACCINE (4 - Booster)] Future Scheduled 2022-09-27 INFLUENZA VACCINE [email or web address] Test 04:46:03 [code = INFLUENZA VACCINE] Future Scheduled 2022-06-[address] [facility] Test 00:00:00 (12+) [code = Medical Center DEPRESSION SCREENING (12+)] Future Scheduled 2022-06-24 FALLS RISK SCREENING [facility] Test 00:00:00 [code = FALLS RISK Medical C enter SCREENING] Future Scheduled 2022-06-[address] [facility] Test 00:00:00 (12+) [code = Medical Center DEPRESSION SCREENING (12+)] Future Scheduled 2022-06-24 FALLS RISK SCREENING [facility] Test 00:00:00 [code = FALLS RISK Medical C enter SCREENING] Future Scheduled 2022-03-15 HEPATITIS B VACCINES Met [facility] Test 04:19:36 (1 of 3 - 3-dose series) [code = HEPATITIS B VACCINES (1 of 3 - 3-dose series)] Future Scheduled 2022-03-15 65+ [facility]OCCAL [facility] Test 04:19:36 VACCINE (1 - PCV) [code = 65+ PNEUMOCOCCAL VACCINE (1 - PCV)] Future Scheduled 2022-03-15 Hepatitis C screening [facility] Test 04:19:36 (procedure) [code = 967774423] Future Scheduled 2022-03-15 SHINGLES VACCINES (1 Met [facility] Test 04:19:36 of 2) [code = SHINGLES VACCINES (1 of 2)] Future Scheduled 2022-03-15 BREAST CANCER [facility] Test 04:19:36 SCREENING [code = BREAST CANCER SCREENING] Future Scheduled 2022-03-15 COLONOSCOPY SCREENING [facility] Test 04:19:36 [code = COLONOSCOPY SCREENING] Future Scheduled 2022-03-15 COVID-19 VACCINE (4 - [facility] Test 04:19:36 Booster) [code = COVID-19 VACCINE (4 - Booster)] Future Scheduled 2022-03-15 [facility]FLUENZA [facility]ACCINE [facility] Test 04:19:36 [code = INFLUENZA VACCINE] Future Scheduled 2021-12-[address] [facility] Test 00:00:00 Counseling and Medical Cente r Screening (12+) [code = Tobacco Cessation Counseling and Screening (12+)] Future Scheduled 2021-12-[address] [...] 00:00:00 (1 of 1 - Medical Center [id number] PCV13) [code = PNEUMOCOCCAL 65+ YRS (1 of 1 - [id number] PCV13)] Future Scheduled 2019-09-11 PNEUMOCOCCAL 65+ Y[facility] Test 00:00:00 (1 - PCV) [code = Medical Ce nter PNEUMOCOCCAL 65+ YRS (1 - PCV)] Future Scheduled 2019-09-11 PNEUMOCOCCAL 65+ YRS [facility] [...] Medical Ca ter VACCINE (#1)] Future Scheduled 1955[birth year]13 COVID-19 [facility]ACCINE (#1[facility]:00[facility]00 [code = COVID-[address] VACCINE (#1)] Future Scheduled [address] [facility] Test 00:[facility]:00 malignant neoplasm of Medica l Center breast (procedure) [code = 281408775] Future Scheduled [address] [facility] Test 00:00:00 malignant neoplasm of Medica l Center colon (procedure) [code = 658996306] Future Scheduled [address] [facility] Test 00:00:00 malignant neoplasm of Medica l Center breast (procedure) [code = 374810119] Future Scheduled [address] [facility] Test 00:00:00 (combo) [code = CT Medical C enter Colonography (combo)] Future Scheduled [address] [facility] Test 00:00:00 malignant neoplasm of Medica l Center colon (procedure) [code = 988491770] Future Scheduled [address] [facility] Test 00:00:00 malignant neoplasm of Medica l Center colon (procedure) [code = 638244964] Future Scheduled 1954 DXA SCAN [code = DXA [facility] Test 00:00:00 SCAN] [facility] Future Scheduled [address] [facility] Test 00:00:00 malignant neoplasm of Medica l Center colon (procedure) [code = 555033943] Future Scheduled [address] [facility] [facility] Test 00:00:00 malignant neoplasm of Medica l Center colon (procedure) [code = 403441603] Future Scheduled 1955 Sigmoidoscopy [facility]code [facility]00 S[facility]oidoscopy[facility] Future Scheduled [address] [facility] Test 00:00:00 malignant neoplasm of Medica l Center breast (procedure) [code = 582543453] Future Scheduled [address] [facility] Test 00:00:00 (combo) [code = CT Medical C enter Colonography (combo)] Future Scheduled [address] [facility] Test 00:00:00 malignant neoplasm of Medica l Center colon (procedure) [code = 130611443] Future Scheduled [address] [facility] Test 00:00:00 malignant neoplasm of [facility] colon (procedure) [code = 950964911] Future Scheduled 1954 DXA SCAN [code = DXA [facility] Test 00:00:00 SCAN] [facility] Future Scheduled [address] [facility] Test 00:00:00 malignant neoplasm of [facility] colon (procedure) [code = 030976218] Future Scheduled [address] [facility] Test 00:00:00 malignant neoplasm of [facility] colon (procedure) [code = 619217045] Future Scheduled 1954 Sigmoidoscopy [facility] Future Scheduled 65+ [facility]OCOCCAL [facility] Test VACCINE (1 of 4 - PCV13) [code = 65+ PNEUMOCOCCAL VACCINE (1 of 4 - PCV13)] Future Scheduled COVID-19 [facility]ACCINE (1) [facility] [code = COVID-19 VACCINE (1)] Future Scheduled [facility] (procedure) [code = 965471409] Future Scheduled BREAST CANCER [facility] Test SCREENING [code = BREAST CANCER SCREENING] Future Scheduled [facility]COPY [facility] [code = COLONOSCOPY SCREENING] Future Scheduled SHINGLES VACCINES (#1) [facility] [code = SHINGLES VACCINES (#1)] Future Scheduled INFLUENZA [facility]ACCINE [facility] [code = INFLUENZA VACCINE] Goal Plan of Care Note [code = 82813-9] Goal Plan of Care Note [code = 53667-3] Goal Plan of Care Note [code = 22738-9] Goal Plan of Care Note [code = 06441-6] Goal Plan of Care Note [code = 07624-8] Goal Plan of Care Note [code = 69871-4] Goal Plan of Care Note [code = 24037-7] Goal Plan of Care Note [code = 06103-2] Goal Plan of Care Note [code = 63633-0] Goal Plan of Care Note [code = 96121-9] Goal Plan of Care Note [code = 29611-9] Goal Plan of Care Note [code = 93362-0] Goal Plan of Care Note [code = 53854-8] Goal Plan of Care Note [code = 94227-4] Goal Plan of Care Note [code = 92611-7] Goal Plan of Care Note [code = 38310-2] Goal Plan of Care Note [code = 69296-0] Goal Plan of Care Note [code = 87058-8] Goal Plan of Care Note [code = 41472-5] Goal Plan of Care Note [code = 59694-3] Goal Plan of Care Note [code = 54624-9] Goal Plan of Care Note [code = 50618-4] Goal Plan of Care Note [code = 17991-8] Goal Plan of Care Note [code = 83288-8] Goal Plan of Care Note [code = 16554-3] Goal Plan of Care Note [code = 49839-4] Goal Plan of Care Note [code = 65493-8] Goal Plan of Care Note [code = 61173-9] Encounters Start End Encounter Admission Attending Care Care Encounter Source Date/Time Date/Time Type Type Clinicians Facility Department ID 2023-02-13 Outpatient nullFlavo [place] [id number] Memoria 20:24:01 r Medical 00 l [facility] 2023-02-13 OD [facility] [id number] Wy moria 20:24:01 00 [facility] 2022-01-08 [facility] [id number] Common 16:07:03 Spirit [facility] - I [facility] 2021-11-23 Outpatient [facility] [id number] Common 09:29:03 , [facility] 2021-07-20 Outpatient [id number] ENCPL REF [id number] [facility] 12:45:54 0824 [facility] [place] 2021-07-20 Outpatient 3 SUMANTH, ENCPL [facility] [id number] [facility] 12:30:11 YORDAN 0713 [facility] [place] 2021-07-20 Outpatient 3 [id number] ENCPL REF [id number] [facility] 12:28:51 0709 [facility] [place] 2021-04-02 Outpatient BELÉNNAHEED, SLSL Surgery [id number] [facility] 02:14:55 GIANNA 2021-02-06 Inpatient UR SARAH ALLEN [facility] Medicine [id number] SLS 01:22:00 2021-02-03 Outpatient nullFlavo MH [place] [id number] Memoria 17:47:23 r Medical 00 l [facility] 2021-02-03 OD MHIE MHIE [id number] [place] 17:47:23 00 l [place] 2019-08-31 [id number] 09:50:05 VINNY GARDUNO 2023-02-21 2023-02-21 Outpatient MHIE MHIE [id number] Memoria 13:15:00 13:15:00 11 l [place] 2023-02-08 2023-02-09 Outpatient MHIE MNA [id number] Memoria 20:30:00 04:59:59 Neurology 10 l Keshav Hanley 2023-02-08 2023-02-08 Outpatient ZITA Zheng MISCHER [id number] 15:30:00 23:59:59 Paul 10 Patrice 2023-02-08 2023-02-08 Outpatient MHIE MHIE [id number] Memoria 15:30:00 15:30:00 10 kalyani Talon 2023-01-09 2023-01-10 Outpatient MHIE MNA [id number] Memoria 16:45:00 04:59:59 Neurology 09 l Keshav Hanley 2023-01-09 2023-01-09 Outpatient ZITA ZhengMISCHRADHA [id number] 11:45:00 23:59:59 Paul 09 Patrice 2023-01-09 2023-01-09 Outpatient MHIE MHIE [id number] Memoria 11:45:00 11:45:00 09 kalyani Talon 2023-01-03 2023-01-03 Ambulatory MHIE MNA [id number] Memoria 18:00:00 18:00:00 Pre-Reg Neurology 08 l Keshav Hanley 2023-01-03 2023-01-03 Outpatient ZITA Zheng MHMISCHER [id number] 13:00:00 13:00:00 Paul 08 Patrice 2022-12-26 2022-12-26 Outpatient MHIE MHIE [id number] Memoria 13:00:00 13:00:00 08 l [place] 2022-12-07 2022-12-08 Outpatient MHIE MNA [id number] Memoria 18:15:00 04:59:59 Neurology 07 kalyani Hanley 2022-12-07 2022-12-07 Outpatient [facility] [id number] 13:15:00 23:59:59 Paul 07 Patrice 2022-12-07 2022-12-07 Outpatient MHIE MHIE [id number] Memoria 13:15:00 13:15:00 07 l [place] 2022-11-14 2022-11-14 Outpatient LUIS SMITH [id number] [place] 17:23:09 17:23:09 0524 [place] 2022-07-11 2022-07-11 Emergency [facility] [id number] Univers 17:49:00 20:00:00 KATELYN alvares [facility] 2022-07-11 2022-07-11 Emergency [facility] [id number] Univers 17:49:00 20:00:00 Katelyn RODRIGUEZ [id number] [facility] [id number] [facility] [id number] [address] 2022-03-28 2022-03-28 Outpatient SFA LUIS [id number] [place] 13:38:04 13:38:04 1005 F [place] 2022-03-28 2022-03-28 Outpatient [id number] 00:00:00 00:00:00 Visit [id number] 2021-12-27 2021-12-27 Outpatient [id number] 00:00:00 00:00:00 Visit [id number] 2021-07-31 2021-08-02 Outside nullFlavo MNA [id number] Memoria 15:00:26 05:59:59 Medical r Neurology 05 l Records Keshav Hanley 2021-07-31 2021-08-02 Outside nullFlavo MNA [id number] Memoria 15:00:26 05:59:59 Medical r Neurology 05 l Records Keshav Hanley 2021-07-31 2021-08-01 Outpatient MHMISCHER MHMISCHER [id number] 09:00:26 23:59:59 05 2021-07-11 2021-07-13 Outside nullFlavo MNA [id number] Memoria 21:37:12 05:59:59 Medical r Neurology 04 l Records Keshav Hanley 2021-07-11 2021-07-13 Outside nullFlavo MNA [id number] Memoria 21:37:12 05:59:59 Medical r Neurology 04 l Records Keshav Hanley 2021-07-11 2021-07-12 Outpatient MHMISCHER MHMISCHER [id number] 15:37:12 23:59:59 2021-06-29 2021-07-01 Outside nullFlavo MNA [id number] Memoria 14:26:17 05:59:59 Medical r Neurology 03 l Records Keshav Hanley 2021-06-29 2021-07-01 Outside nullFlavo MNA [id number] Memoria 14:26:17 05:59:59 Medical r Neurology 03 l Records Keshav Hanley 2021-06-29 2021-06-30 Outpatient MHMISCHER MHMISCHER [id number] 08:26:17 23:59:59 2021-01-26 2021-05-25 Outpatient RECERTIFIC SUMANTH, ENCGEN ENCGEN [id number] ENCGEN 00:00:00 00:00:00 ATBEAU FARR 2021-05-15 2021-05-17 Outside nullFlavo MNA [id number] Memoria 14:12:40 05:59:59 Medical r Neurology 02 l Records Keshav Hanley 2021-05-15 2021-05-17 Outside nullFlavo MNA [id number] Memoria 14:12:40 05:59:59 Medical r Neurology 02 l Records Midland Talon 2021-05-15 2021-05-16 Outpatient MHMISCHER MHMISCHER [id number] 08:12:40 23:59:59 02 2021-05-10 2021-05-10 [facility] Bindfl, 1.2.840.1 [id number] Methodi 14:53:11 23:59:00 Encounter Gianna Muller 90061.1.[address] 3.430.2.7 Hospit a .3.034659 l .8 2021-05-10 2021-05-10 Travel 1.2.840.1 1.2.198.600 [id number] Methodi 00:00:00 00:00:[address] 3.430.2.7 0.2.7.3.698 Ho spita .3.124766 084.8 l .8 2021-05-10 2021-05-10 Transcribe [facility], 1.2.840.1 [id number] Methodi 00:00:00 00:00:00 Orders Gianna Muller 39720.1.[address] 3.430.2.7 Hospit a .3.643848 l .8 2021-04-28 2021-04-29 Outpatient nullFlavo MNA [id number] Memoria 18:15:00 04:59:59 r Neurology 06 l Keshav Hanley 2021-04-28 2021-04-29 Outpatient nullFlavo MNA [id number] Memoria 18:15:00 04:59:59 r Neurology 06 l Keshav Hanley 2021-04-28 2021-04-28 Outpatient ZITA Zheng [id number] 13:15:00 23:59:59 Paul Ibrahim 2021-04-28 2021-04-28 Outpatient YULIANAIE DONAL [id number] Memoria 13:15:00 13:15:00 06 kalyani Hanley 2021-03-03 2021-03-03 Outpatient BINDAL, [facility] [id number] [place] 00:00:00 00:00:00 GIANNA [address] 2021-02-22 2021-02-22 Ambulatory nullFlavo MNA [id number] Memoria 15:45:00 15:45:00 Pre-Reg r Neurology 05 l [place] Talon 2021-02-22 2021-02-22 Ambulatory nullFlavo MNA [id number] Memoria 15:45:00 15:45:00 Pre-Reg r Neurology 05 l [place] 2021-02-22 2021-02-22 Outpatient MHIE MHIE [id number] Memoria 10:45:00 10:45:00 05 l Talon 2021-02-22 2021-02-22 Outpatient Marce [facility] [id number] 10:45:00 10:45:00 Paul 05 Patrice 2021-02-02 2021-02-02 Travel 1.2.840.1 1.2.819.917 [id number] Methodi 00:00:00 00:00:[address] 3.430.2.7 0.2.7.3.698 Ho spita .3.746475 084.8 l .8 2021-02-02 2021-02-02 Transcribe Bindal, 1.2.840.1 [id number] Methodi 00:00:00 00:00:00 Orders Gianna Mulelr 59965.1.[address] 3.430.2.7 Hospit a .3.224021 l .8 2021-02-02 2021-02-02 [facility] BINDTX, 1.2.840.1 [id number] [place] 00:00:00 00:00:00 Encounter GIANNA 99847.1.[address] .3.835536 .8 2021-01-31 2021-02-01 Outpatient nullFlavo MNA [id number] Memoria 19:15:00 04:59:59 r Neurology 04 l Midlandpratibha Hanley 2021-01-31 2021-02-01 Outpatient nullFlavo MNA [id number] Memoria 19:15:00 04:59:59 r Neurology 04 l Midlandpratibha Gardnerann 2021-01-31 2021-01-31 Outpatient CLARICE ZhengSCHER MHMISCHER [id number] 14:15:00 23:59:59 Paul Jimmy Patrice 2021-01-31 2021-01-31 Outpatient MHIE MHIE [id number] Memoria 14:15:00 14:15:00 04 kalyani Talon 2021-01-26 2021-01-26 Outpatient JULIO CÉSAR JINGEN ENCGEN [id number] ENCGEN 00:00:00 00:00:00 ADMISSION YORDAN 2021-01-26 2021-01-26 Outpatient RECERTIFIC JULIO CÉSAR JULIOGEN ENCGEN [id number] ENCGEN 00:00:00 00:00:00 ATION [facility] 2021-01-08 2021-01-08 Emergency EM Prado, HCAPM HENOK [id number] [facility] 01:31:00 04:08:00 Zeus 17 [facility] 2021-01-07 2021-01-07 Outpatient Vicente, HCAPM RADI [id number] [facility] 21:39:00 21:39:00 Zeny 91 [facility] 2021-01-05 2021-01-05 Outpatient SUMANTH, HCAPM RADI [id number] [facility] 18:37:00 18:37:00 YORDAN 87 [facility] 2020-12-22 2020-12-22 Outpatient EL SLSL SLSL [id number] SLSL 00:00:00 00:00:00 2020-10-31 2020-11-01 Outpatient nullFlavo MNA [id number] Memoria 14:45:00 04:59:59 r Neurology 03 l Midlandpratibha Gardnerann 2020-10-31 2020-11-01 Outpatient nullFlavo MNA [id number] Memoria 14:45:00 04:59:59 r Neurology 03 l Midlandpratibha Gardnerann 2020-10-31 2020-10-31 Outpatient YULIANA ZhengSDSCHER MHSDSCHER [id number] 09:45:00 23:59:59 Paul Gilmer Patrice 2020-10-31 2020-10-31 Outpatient MHIE MHIE [id number] Memoria 09:45:00 09:45:00 03 kalyani Hanley 2020-10-24 2020-10-26 Outside nullFlavo MNA [id number] Memoria 15:11:50 04:59:59 Medical r Neurology 01 l Records Keshav Hanley 2020-10-24 2020-10-26 Outside nullFlavo MNA [id number] Memoria 15:11:50 04:59:59 Medical r Neurology 01 l Records Keshav Hanley 2020-10-24 2020-10-25 Outpatient MHMISCHER MHMISCHER [id number] 10:11:50 23:59:59 2020-10-13 2020-10-13 Ambulatory nullFlavo MNA [id number] Memoria 15:30:00 15:30:00 Pre-Reg r Neurology 02 l Keshav Gardnerann 2020-10-13 2020-10-13 Ambulatory nullFlavo MNA [id number] Memoria 15:30:00 15:30:00 Pre-Reg r Neurology 02 l Keshav Hanley 2020-10-13 2020-10-13 Outpatient MHIE MHIE [id number] Memoria 10:30:00 10:30:00 02 kalyani Hanley 2020-10-13 2020-10-13 [facility] [id number] 10:30:00 10:30:00 Paul Berta Ibrahim 2020-08-24 2020-08-26 Outside nullFlavo MNA [id number] Memoria 17:52:51 05:59:59 Medical r Neurology 00 l Records Keshav Hanley 2020-08-24 2020-08-26 Outside nullFlavo MNA [id number] Memoria 17:52:51 05:59:59 Medical r Neurology 00 l Records Keshav Hanley 2020-08-24 2020-08-25 Outpatient MHMISCHER MHMISCHER [id number] 11:52:51 23:59:59 2020-08-17 2020-08-17 Ambulatory nullFlavo MNA [id number] Memoria 16:15:00 16:15:00 Pre-Reg r Neurology 01 l Keshav Hanley 2020-08-17 2020-08-17 Ambulatory nullFlavo MNA [id number] Memoria 16:15:00 16:15:00 Pre-Reg r Neurology 01 l Keshav Gardnerann 2020-08-17 2020-08-17 Outpatient MHIE MHIE [id number] Memoria 10:15:00 10:15:00 01 kalyani GardnerLanexa 2020-08-17 2020-08-17 [id number] 10:15:00 10:15:00 Paul 01 Patrice 2020-07-20 2020-07-21 Outpatient nullFlavo MNA [id number] Memoria 19:30:00 05:59:59 r Neurology 00 l Keshav [place] 2020-07-20 2020-07-21 Outpatient nullFlavo MNA [id number] Memoria 19:30:00 05:59:59 r Neurology 00 kalyani [place] 2020-07-20 2020-07-20 [id number] 13:30:00 23:59:59 Paul 00 Patrice 2020-07-20 2020-07-20 Outpatient MHIE MHIE [id number] Memoria 13:30:00 13:30:00 00 kalyani Hanley 2020-06-10 2020-06-10 Orders Doctor ENGLE 1.2.840.114 [id number] 00:00:00 00:00:00 Only Unassigned, ANNITA 350.1.13.10 [place] [facility] 4.2.7.2.686 [id number] 2020-06-10 2020-06-10 Orders Doctor KADIE 1.2.840.114 [id number] Univers 00:00:00 00:00:00 Only Unassigned, ANNITA 350.1.13.10 [place] [facility] 4.2.7.2.686 Kranthi as [id number] [address] 2020-05-26 2020-05-26 Day nullFlavo [facility] [id number] Memoria 13:45:00 20:35:00 Surgery r [place] 03 l [facility] 2020-05-26 2020-05-26 Day nullFlavo [facility] [id number] Memoria 13:45:00 20:35:00 Surgery r [place] 03 [facility] 2020-05-26 2020-05-26 Outpatient TI, MHSE MHSE [id number] MH 07:45:00 14:35:[address] [facility] 2020-05-26 2020-05-26 Outpatient Ti, MHSE MHSE [id number] 07:45:00 14:35:00 Blaine Scherer [place] 2020-05-26 2020-05-26 Outpatient Ti, MHSE MHSE [id number] 07:45:00 14:35:00 Blaine 03 [place] 2020-05-17 2020-05-17 Day nullFlavo [facility] [id number] Memoria 14:24:00 21:55:00 Surgery r Talon 02 [facility] 2020-05-17 2020-05-17 Day nullFlavo [facility] [id number] Memoria 14:24:00 21:55:00 Surgery r Talon 02 [facility] 2020-05-17 2020-05-17 Outpatient TI, MHSE MHSE [id number] MH 08:24:00 15:55:00 BLAINE [facility] 2020-05-17 2020-05-17 Outpatient Ti, MHSE MHSE [id number] 08:24:00 15:55:00 Blaine Hampton [place] 2020-05-17 2020-05-17 Outpatient Ti, MHSE MHSE [id number] 08:24:00 15:55:00 Blaine Hampton [place] 2020-04-05 2020-04-08 Inpatient nullFlavo [facility] [id number] Memoria 23:08:39 22:20:[address] [facility] 2020-04-05 2020-04-08 Inpatient nullFlavo [facility] [id number] Memoria 23:08:39 22:20:[address] [facility] 2020-04-06 2020-04-08 Inpatient E MARIAM REYNOLDS MHSE MED [id number] MH 12:24:00 17:20:00 [facility] 2020-04-05 2020-04-08 Outpatient Mariam Reynolds SE MHSE [id number] 18:08:39 17:20:00 Thalakulajennifer 01 2020-04-05 2020-04-08 Outpatient Mariam Reynolds MHSE MHSE [id number] 18:08:39 17:20:00 Thalrena Stuart u 2019-03-10 2019-03-10 Day nullFlavo [facility] [id number] Memoria 15:07:00 17:53:00 Surgery r Talon 00 l [facility] 2019-03-10 2019-03-10 Day nullFlavo [facility] [id number] Memoria 15:07:00 17:53:00 Surgery r [place] 00 l [facility] 2019-03-10 2019-03-10 Outpatient Ti MHSE MHSE [id number] 10:07:00 12:53:00 Blaine Farooq 2019-03-10 2019-03-10 Outpatient MHSE MHSE [id number] MH 10:07:00 10:07:00 [facility] 2019-01-16 2019-01-18 Observatio nullFlavo [facility] [id number] Memoria 18:29:00 20:39:00 n guilherme Hanley 02 [facility] 2019-01-16 2019-01-18 Observatio nullFlavo [facility] [id number] Memoria 18:29:00 20:39:00 n guilherme Hanley 02 [facility] 2019-01-16 2019-01-18 Outpatient Ti MHSE MHSE [id number] 13:29:00 15:39:00 Blaine Farooq 2019-01-16 2019-01-16 Outpatient MHSE MHSE [id number] MH 13:29:00 13:29:00 [facility] 2018-12-23 2018-12-29 Inpatient Yvette AGUERO [facility]HEMANTH [facility] [id number] Univers 09:13:13 14:30:00 CAROLINA alvares [facility] 2012-05-19 2012-05-19 OR nullFlavo MH [place] [id number] Memoria 10:19:00 10:19:00 r Medical 01 l [facility] 2012-05-19 2012-05-19 OR nullFlavo MH [place] [id number] Memoria 10:19:00 10:19:00 r Medical 01 l [facility] 2012-01-10 2012-02-08 OR nullFlavo MH [place] [id number] Memoria 09:00:00 23:59:00 r Medical 00 l [facility] 2012-01-10 2012-02-08 OR nullFlavo [facility] [id number] Memoria 09:00:00 23:59:00 r Medical 00 l [facility] 2012-01-10 2012-01-10 Outpatient nullFlavo [facility] [id number] Memoria 09:00:00 09:00:00 r Medical 01 l [facility] 2012-01-10 2012-01-10 Outpatient nullFlavo [facility] [id number] Memoria 09:00:00 09:00:00 r Medical 01 [facility] Results Test Description Test Time Test Comments Results Result Comments Source CULTURE, ANAEROBIC 2022-11-21 SPECIMEN NUMBER: 08:46:12 [id number] CULTURE, ANAEROBIC SPECIMEN NUMBER: [id number] SPECIMEN COMMENT: LT ELBOW SOURCE: ELBOW REPORT STATUS: FINAL DIRECT GRAM STAIN: MODERATE WBC'S OBSERVED FEW GRAM POSITIVE BACILLI FINAL REPORT: 11/20/2022 NO ANAEROBES RECOVERED AFTER 5 DAYS UNLESS OTHERWISE INDICATED, ALL TESTING PERFORMED AT [facility] [address] [place] [address] BUSINESS UNIT LEADER: LESIE GUY M.D. CLIA NUMBER [id number] [place] [id number] COMPREHENSIVE METABOLIC PANEL 2021-02-14 04:53:00 Test Item [...] NOT 1092) ACCURATE CRE ATININE CLEARANCE IN [place] EDICTING GLOMERULAR FILT RATION RATE. ESTIMATED GFR IS NOT APPLICABLE FOR DIALYSIS PATIENTS. Industrial Engineering Technologist ID - [id number] ID - [id number] ID - [id number] ID - [id number] ID - [id number] ID - [id number] ID - [id number] ID - [id number] ID - [id number] ID - [id number] ID - [id number] ID - [id number] ID - [id number] ID - [id number] ID - [id number] ID - [id number] 04:45:00 Test Item Value Reference Range Interpretation Comments MAGNESIUM (BEAKER) 1.9 mg/dL 1.5-3.0 Specimen slightly (test code = 627) hemolyzed Industrial Engineering Technologist ID - [id number] ID - [id number] ID - [id number] ID - [id number] W/PLT COUNT & AUTO [id number] 04:27:00 Test Item Value Reference Range Interpretation [...] PERCENT (BEAKER) (test code = 2801) POCT-GLUCOSE [id number] 15:27:00 Test Item Value Reference Range Interpretation Comments POC-GLUCOSE METER 129 mg/dL 70-110 H : TESTED A T SL[facility] 1317 (BEAKER) (test code [address], = 1538) [facility] 77 478: Industrial Engineering Technologist/Techni delvin ID = [id number] for Capri Melton COMPREHENSIVE METABOLIC [id number] 05:43:00 Test Item Value Reference Range Interpretation [...] S NOT APPLICABLE FOR DIALYSIS PATIEN TS. Industrial Engineering Technologist ID - LITOOperator ID - LITOOperator ID - LITOOperator ID - LITOOperator ID - LITOOperator ID - LITOOperator ID - LITOOperator ID - LITOOperator ID - LITOOperator ID - LITOOperator ID - LITOOperator ID - LITOOperator ID - LITOOperator ID - LITOOperator ID - LITOOperator ID - LITOURIC [id number] 05:41:00 Test Item Value Reference Range Interpretation Comments URIC ACID (BEAKER) (test code = 2.0 mg/dL 2.5-8.0 L 773) Industrial Engineering Technologist ID - [id number] 05:40:00 Test Item Value Reference Range Interpretation Comments MAGNESIUM (BEAKER) (test code = 1.8 mg/dL 1.5-3.0 627) Industrial Engineering Technologist ID - LITOOperator ID - LITOOperator ID - LITOOperator ID - LITOC- REACTIVE [id number] 05:38:00 Test Item Value Reference Range Interpretation Comments C-REACTIVE PROTEIN (BEAKER) (test 0.68 mg/dL 0.00-0.50 H code = 676) Industrial Engineering Technologist ID - [id number] 05:37:00 Test Item Value Reference Range Interpretation Comments PHOSPHORUS (BEAKER) (test code = 2.1 mg/dL 2.5-4.5 L 604) Industrial Engineering Technologist ID - LITOB-TYPE NATRIURETIC FACTOR (BNP)2021-02-12 05:28:00 Test Item Value Reference Range Interpretation Comments B-TYPE NATRIURETIC PEPTIDE (BEAKER) 939 pg/mL 0-100 H (test code = 700) Industrial Engineering Technologist ID - [id number] 05:28:00 Test Item Value Reference Range Interpretation Comments PROCALCITONIN (BEAKER) (test code 0.11 ng/mL <0.05 H = 3036) SEPSIS RISK (ng/mL)Low: 0.05-0.50Intermediate: 0.51-2.00High: >=2.01CBC W/PLT COUNT & AUTO [id number] 04:58:00 Test Item Value Reference Range Interpretation [...] PERCENT (BEAKER) (test code = 2801) POCT-GLUCOSE [id number] 17:55:00 Test Item Value Reference Range Interpretation Comments POC-GLUCOSE METER 105 mg/dL 70-110 : TESTED A T [facility] 1317 (BEAKER) (test code [facility] [address], = 1538) [facility] 77 478: Industrial Engineering Technologist/Techni delvin ID = [id number] for Buff ord, Darlene POCT-GLUCOSE [id number] 11:51:00 Test Item Value Reference Range Interpretation Comments POC-GLUCOSE METER 128 mg/dL 70-110 H : TESTED A T [facility] 1317 (BEAKER) (test code [address], = 1538) [place] 021508: Industrial Engineering Technologist/Techni delvin ID = [id number] for Buff ord, Darlene POCT-GLUCOSE [id number] 06:30:00 Test Item Value Reference Range Interpretation Comments POC-GLUCOSE METER 79 mg/dL 70-110 : TESTED A T [facility] 1317 (BEAKER) (test code = [address], 1538) [place] 021508: Industrial Engineering Technologist/Techni delvin ID = [id number] for Oyeb esequiel, Silvia POCT-GLUCOSE [id number] 00:13:00 Test Item Value Reference Range Interpretation Comments POC-GLUCOSE METER 98 mg/dL 70-110 : TESTED A T [facility] 1317 (BEAKER) (test code = [address], 1538) [place] 021508: Industrial Engineering Technologist/Techni delvin ID = [id number] for Oyeb esequiel, Silvia POCT-GLUCOSE [id number] 18:33:00 Test Item Value Reference Range Interpretation Comments POC-GLUCOSE METER 83 mg/dL 70-110 : TESTED A T [facility]SL 1317 (BEAKER) (test code = [address], 1538) [place] 021508: Industrial Engineering Technologist/Techni delvin ID = [id number] for Albert h, Capri POCT-GLUCOSE [id number] 12:02:00 Test Item Value Reference Range Interpretation Comments POC-GLUCOSE METER 144 mg/dL 70-110 H : TESTED A T [facility] 1317 (BEAKER) (test code [address], = 1538) [place] 0215[address]: Industrial Engineering Technologist/Techni delvin ID = [id number] for Albert h, Capri COMPREHENSIVE METABOLIC [id number] 06:26:00 Test Item Value Reference Range Interpretation [...] S NOT APPLICABLE FOR DIALYSIS PATIEN TS. Industrial Engineering Technologist ID - [id number] ID - lana35Gmpceber ID - [id number] ID - [id number] ID - zuew49Dibqaeqx ID - xonr26Stsbwazt ID - monv44Lqwtzlgu ID - [id number] ID - zenw75Zexvifau ID - xsnv46Mjketrlc ID - rktu73Mroggyqq ID - gqaz21Ldndxayg ID - fjrj10Kgbievaw ID - ifxb05Uxqycqnu ID - uzwz01Sbugstak ID - [id number] 06:19:00 Test Item Value Reference Range Interpretation Comments MAGNESIUM (BEAKER) 1.8 mg/dL 1.5-3.0 Specimen slightly (test code = 627) hemolyzed Industrial Engineering Technologist ID - [id number] ID - [id number] ID - [id number] ID - [id number] CBC W/PLT COUNT & AUTO [id number] 05:55:00 Test Item Value Reference Range Interpretation [...] PERCENT (BEAKER) (test code = 2801) POCT-GLUCOSE [id number] 18:31:00 Test Item Value Reference Range Interpretation Comments POC-GLUCOSE METER 134 mg/dL 70-110 H : TESTED A T [facility] 1317 (BEAKER) (test code [address], = 1538) [facility] 77 478: Industrial Engineering Technologist/Techni delvin ID = [id number] for Albert hAnn MarieCapri MR, BRAIN, WITHOUT [id number] 15:11:00Unlisted Reason for Exam - Click Yes and Enter Reason Below->YesUnlisted Reason for Exam->cva?? [facility] : 1955 Sex: FFINAL REPORT MR, BRAIN, WITHOUT CONTRAST, MR, MRA, BRAIN, WITHOUT CONTRAST, MR, MRA,NECK, WITHOUT IV CONTRAST INDICATION: Unlisted Reason for Examcva?? TECHNIQUE: Multiplanar, multisequence MR imaging of the brain without intravenous contrast.MRA of the head utilizing 3-D iuoi-hx-hpmtbj technique, with 3-D reconstructions.MRA of the neck utilizing 2-D and 3-D jnow-sl-arkzdo technique, with 3-D reconstructions. COMPARISON: None FINDINGS: [...] 02/08/2021 15:11:47 MR, MRA, NECK, WITHOUT IV [id number] 15:11:00Unlisted Reason for Exam - Click Yes and Enter Reason Below- >YesUnlisted Reason for Exam->cva?? [facility] : 1955 Sex: FFINAL REPORT MR, BRAIN, WITHOUT CONTRAST, MR, MRA, BRAIN, WITHOUT CONTRAST, MR, MRA,NECK, WITHOUT IV CONTRAST INDICATION: Unlisted Reason for Examcva?? TECHNIQUE: Multiplanar, multisequence MR imaging of the brain without intravenous contrast.MRA of the head utilizing 3-D jfgz-ar-zjsrvw technique, with 3-D reconstructions.MRA of the neck utilizing 2-D and 3-D getp-vi-prqxxr technique, with 3-D reconstructions. COMPARISON: None FINDINGS: [...] within the head and neck. Signed: Sue Steenort Verified Date/Time: 02/08/2021 15:11:47 MR, MRA, BRAIN, WITHOUT [id number] 15:11:00Unlisted Reason for Exam - Click Yes and Enter Reason Below- >YesUnlisted Reason for Exam->cva?? [facility] ROS[facility] CORRAL ONI : 1955 Sex: FFINAL REPORT MR, BRAIN, WITHOUT CONTRAST, MR, MRA, BRAIN, WITHOUT CONTRAST, MR, MRA, NECK, WITHOUT IV CONTRAST INDICATION: Unlisted Reason for Examcva?? TECHNIQUE: Multiplanar, multisequence MR imaging of the brain without intravenous contrast.MRA of the head utilizing 3-D mncm-ti-ddvznj technique, with 3-D reconstructions.MRA of the neck utilizing 2-D and 3-D lnxo-xn-ezptey technique, with 3-D reconstructions. COMPARISON: None FINDINGS: MRI Brain:Intracranial: No intracranial hemorrhage. No restricted diffusion to suggest acute infarct. No mass effect. No hydrocephalus. Multiple remote bilateral basal ganglia lacunar infarcts. Generalized cerebral atrophy with ex vacuo dilatationof the ventricular system proportionate to sulci. Since of confluent T2 prolongation within the periventricular and subcortical white matter is a nonspecific finding commonly attributed to chronic small vessel ischemic disease. Sinuses: No evidence of sinusitis. Right mastoid effusion. Orbits: Globes are intact. Calvarium \\T\\ scalp: Unremarkable. MRA Head:There is no evidence of intracranial aneurysm, focal stenosis, or major branch vessel occlusion. MRA Neck:The carotid arteries in the neck are patent including their bifurcations. There is antegrade flow in the vertebral arteries in the neck. IMPRESSION:1.No acute intracranial abnormality.2.Extensive chronic microvascular ischemic changes.3.No proximal branch arterial occlusion or high-grade focal stenosis within the head and neck. Signed: Sue [facility] Verified Date/Time: 02/08/2021 15:11:47 POCT-GLUCOSE [id number] 12:21:00 Test Item Value Reference Range Interpretation Comments POC-GLUCOSE METER 123 mg/dL 70-110 H : TESTED A T [facility] 1317 (BEAKER) (test code [address], = 1538) [facility] 77 478: Industrial Engineering Technologist/Techni delvin ID = [id number] for Albert Capri gallegos [id number] 06:34:00 Test Item Value Reference Range Interpretation Comments MAGNESIUM (BEAKER) (test code = 2.1 mg/dL 1.5-3.0 627) Industrial Engineering Technologist ID - LITOOperator ID - LITOOperator ID - LITOOperator ID - LITOBASIC METABOLIC [id number] 06:33:00 Test Item Value Reference Range Interpretation [...] S NOT APPLICABLE FOR DIALYSIS PATIEN TS. Industrial Engineering Technologist ID - LITOOperator ID - LITOOperator ID - LITOOperator ID - LITOOperator ID - LITOOperator ID - LITOOperator ID - LITOOperator ID - LITOOperator ID - LITOOperator ID - LITOCBC W/PLT COUNT & AUTO [id number] 06:13:00 Test Item Value Reference Range Interpretation [...] = 2801) RAD, CHEST, 1 VIEW, NON [id number] 09:38:00Reason for exam:- >pneumoniaShould this be performed at the bedside?->Yes [facility] 1955 Sex: FFINAL REPORT CHEST AP PORTABLE SEMIERECT History provided: Pneumonia COMPARISON STUDY: 02/06/2021 Significant progression of airspace disease throughout the right lung, with lesser degree of airspace disease within the left lung, consistent with multifocal pneumonia. Heart size normal. Signed: Melvin Gutierrezepshyann Verified Date/Time: 02/07/2021 09:38:47 Reading Location: [facility] Radiology Reading Room COMPREHENSIVE METABOLIC [id number] 09:34:00 Test Item Value Reference Range Interpretation [...] S NOT APPLICABLE FOR DIALYSIS PATIEN TS. Industrial Engineering Technologist ID - DSENSONOperator ID - DSENSONOperator ID - DSENSONOperator ID - DSENSONOperator ID - DSENSONOperator ID - DSENSONOperator ID - DSENSONOperator ID - DSENSONOperator ID - DSENSONOperator ID - DSENSONOperator ID - DSENSONOperator ID - DSENSONOperator ID - DSENSONOperator ID - DSENSONOperatorID - DSENSONOperator ID - DSENSONOperator ID - DSENSONOperator ID - DSENSONOperator ID - [id number] 05:49:00 Test Item Value Reference Range Interpretation Comments MAGNESIUM (BEAKER) 1.8 mg/dL 1.5-3.0 Specimen markedly (test code = 627) hemolyzed Industrial Engineering Technologist ID - LITOOperator ID - LITOOperator ID - LITOOperator ID - LITOCBC W/PLT COUNT & AUTO [id number] 05:26:00 Test Item Value Reference Range Interpretation [...] PERCENT (BEAKER) (test code = 2801) POCT-GLUCOSE [id number] 18:26:00 Test Item Value Reference Range Interpretation Comments POC-GLUCOSE METER 76 mg/dL 70-110 : TESTED A T [facility] 1317 (BEAKER) (test code = [address]) [place] [id number]: Industrial Engineering Technologist/Techni delvin ID = [id number] for Sue Koehler POCT-GLUCOSE [id number] 16:55:00 Test Item Value Reference Range Interpretation Comments POC-GLUCOSE METER 69 mg/dL 70-110 L : TESTED A T [facility] [address] (BEAKER) (test code = [address], 15[address]) [place] [address] 478: Industrial Engineering Technologist/Techni delvin ID = [id number] for Sue Koehler LIPID [id number] 15:50:00 Test Item Value Reference Range Interpretation [...] Borderline 130-159 High 160-189 Very High >=190 Industrial Engineering Technologist ID - DSENSONOperator ID - DSENSONOperator ID - DSENSONOperator ID - DSENSONOperator ID - DSENSONOperator ID - DSENSONTROPONIN [id number] 15:40:00 Test Item Value Reference Range Interpretation [...] failure, acidosis, acute neurological disease, and persistent tachyarrhythmia.Industrial Engineering Technologist ID - [id number] 15:24:00 Test Item Value Reference Range Interpretation Comments AMMONIA (BEAKER) (test 20 mol/L 17-80 Speci men slightly code = 348) hemolyzed Industrial Engineering Technologist ID - DSENSONOperator ID - DSENSONOperator ID - DSENSONOperator ID - DSENSONHEPATITIS B SURFACE [id number] 12:22:00 Test Item Value Reference Range Interpretation Comments HEPATITIS B SURFACE ANTIGEN (2) Nonreactive Nonreactive (BEAKER) (test code = 2585) Industrial Engineering Technologist ID - DSENSONPOCT-GLUCOSE BRWJO3953-75-62 12:03:00 Test Item Value Reference Range Interpretation Comments POC-GLUCOSE METER 72 mg/dL 70-110 : TESTED A T [facility] (BEAKER) (test code = [address], 1538) [facility] [place] [address] 478: Industrial Engineering Technologist/Techni delvin ID = [id number] for Sue Koehler RAD, CHEST, 1 VIEW, NON [id number] 07:53:00Reason for exam:- >pneumoniaShould this be performed at the bedside?->Yes [facility] 1955 Sex: FFINAL [...] Baxter Verified Date/Time: 02/06/2021 07:53:46 Reading Location: [address] Body Reading Room COMPREHENSIVE METABOLIC [id number] 06:07:00 Test Item Value Reference Range Interpretation [...] S NOT APPLICABLE FOR DIALYSIS PATIEN TS. Industrial Engineering Technologist ID - [id number] ID - [id number] ID - [id number] ID - [id number] ID - [id number] ID - [id number] ID - [id number] ID - [id number] ID - [id number] ID - [id number] ID - [id number] ID - [id number] ID - [id number] ID - [id number] ID - [id number] ID - [id number] TROPONIN [id number] 06:05:00 Test Item Value Reference Range Interpretation [...] failure, acidosis, acute neurological disease, and persistent tachyarrhythmia.Industrial Engineering Technologist ID - [id number] 2021-02-06 05:59:00 Test Item Value Reference Range Interpretation Comments MAGNESIUM (BEAKER) (test code = 1.7 mg/dL 1.5-3.0 627) Industrial Engineering Technologist ID - [id number] ID - [id number] ID - [id number] ID - [id number]-[id number] 05:44:00 Test Item Value Reference Range Interpretation Comments D-DIMER QUANTITATIVE 0.77 MG/L FEU <0.50 H Final Information (BEAKER) (test code = (Auto Output) 671) REGARDING D-DIMER RESULTS: The 98% NPV (Negative Predictive Value) for DVT/PE exclusion is 0.50 mg/LFEU as suggested by the railroad crossing protection maintainer and as approved by the FDA.HEMOGLOBIN [id number] 05:41:00 Test Item Value Reference Range Interpretation Comments HEMOGLOBIN A1C (BEAKER) (test code = 4.7 % 4.3-6.1 368) Industrial Engineering Technologist ID - [id number] W/PLT COUNT & AUTO [id number] 05:29:00 Test Item Value Reference Range Interpretation [...] XR Cervical Spine Ap Lateral Flexion And [id number] 18:45:01 EXAMINATION: XR CERVICAL SPINE AP LATERAL [...] Left carotid bifurcation atherosclerotic ossifications are present. [id number] Interface, Radiology Results Incoming - 02/02/2021 1:48 PM CDT EXAMINATION: XR CERVICAL [...] C5-C6 levels.Left carotid bifurcation atherosclerotic ossifications are present.[facility]-[id number] [facility]- [facility] ABD PELVIS W/O [id number] 02:24:00 [facility] 1955 Sex: F Name: ALMA ROSA CORRAL [facility] : 1955 Age/S: 65 / F [address] [address] [place] Unit #: [id number] Loc: [place] [address] Phys: Zeus Prado DO Acct: [id number] Dis Date: Status: REG ER PHONE #: [phone] Exam Date: 01/08/2021204 FAX #: Reason: r/o ruptured viscous EXAMS: CPT: [id number] CT ABD PELVIS W/O CONT 42870 CT ABDOMEN AND PELVIS W/O CONTRAST Location [...] Signed Report (CONTINUED) Name: [facility] [place] : 1955 Age/S: 65 / F [address] [facility] [place] Unit #: [id number] Loc: [place] [address] Phys: Zeus Prado DO Acct: [id number] Dis Date: Status: REG ER PHONE #: [phone] Exam Date: 01/08/2021204 FAX #: Reason: r/o ruptured viscous EXAMS: CPT: [id number] ABD PELVIS W/O CONT 14179 (Continued) 1. Minimal free air beneath the [...] Mild to moderate right effusion with atelectasis. Electronically Signed by Herve Mccoy on01/08/2021 at 0224 Reported and signed by: Nawaf Mccoy M.D. CC: Zeus Prado DO Technologist:Susana Ordaz, RT(R)(CT) CTDI: DLP: Trnscb Date/Time: 01/08/2021 (223) JacyRK5 Orig Print D/T: S: 01/08/2021 (226) PAGE 2 Signed Report- CT CHEST W/O [id number] 22:59:00 [facility] : 1955 Sex: F Name: ALMA ROSA CORRAL [facility] : 1955 Age/S: 65 / F [address] [address] [place] Unit #: [id number] Loc: [place] [address] Phys: Zeny Zhang MD Acct: [id number] Dis Date: Status: REG REF PHONE #: [phone] Exam Date: 01/07/20212153 FAX #: Reason: PLEURAL EFFUSION EXAMS: CPT: [id number] CT CHEST W/OCONTRAST 89054 CT chest without contrast Location : B2 HISTORY: Shortness of breath, pleural effusion COMMENT: Multidetector slices through the chest were obtained without contrast. Dose lowering technique with automatic exposure control utilized. The heart is mildly enlarged. Mild pericardial effusion. Aorta and great vessels are within normal limits Pulmonary trunk is unremarkable No mediastinal ly mphadenopathy. There is a moderate right effusion with [...] Rice, RT(R) CTDI: DLP: Trnscb Date/Time: 01/07/2021 (2258) t.LUKAS.[email or web address] Orig Print D/T: S: 01/07/2021 (2054) PAGE 1 Signed Report- CT C-SPINE W/O [id number] 15:10:00 [facility] : 1955 Sex: F Name: ALMA ROSA CORRAL [facility] : 1955 Age/S: 65 / F [address] [address] [place] Unit #: [id number] Loc: [place] [address] Phys: Zeny Zhang MD Acct: [id number] Dis Date: Status: REG REF PHONE #: [phone] Exam Date: 01/07/2021 4451 FAX #: Reason: S/P CERVICAL LAMINECTOMY EXAMS: CPT: [id number] CT C-SPINE W/O CONT 10068 EXAM: CT CERVICAL SPINE WITHOUT CONTRAST HISTORY: [...] Signed Report (CONTINUED) Name: [facility] COR[facility]AL [facility] [place] : 1955 Age/S: 65 / F [address] [address] [place] Unit #: [id number] Loc: [place] [address] Phys: Zeny Zhang MD Acct: [id number] Dis Date: Status: REG REF PHONE #: [phone] Exam Date: 01/07/2021 6107 FAX #: Reason: S/P CERVICAL LAMINECTOMY EXAMS: CPT: [id number] CT C-SPINE W/O CONT 61892 (Continued) as discussed above. 2. 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 This report was generated with usage of voice recognition software. at 1510 Reported and signed by: Jayden Terrazas M.D. CC: Zeny Zhang MD Technologist:Ermelinda Arroyo, RT(R); Carmen Perdomo CTDI: DLP: Trnscb Date /Time: 01/07/2021 (1509) [email or web address] Orig Print D/T: S: 01/07/2021 (9183) PAGE 2 Signed Report- CT HEAD/BRAIN W/O [id number] 19:57:00 [facility] : 1955 Sex: F Name: ALMA ROSA CORRAL [facility] : 1955 Age/S: 65 / F [address] [address] [place] Unit #: [id number] Loc: [place] [address] Phys: Undefined Provider Acct: [id number] Dis Date: Status: REG REF PHONE #: [phone] Exam Date: 01/05/2021 9386 FAX #: Reason: flat affect EXAMS: CPT: [id number] CT HEAD/BRAIN W/O CONT 97101 Exam: CT head without contrast. Location: H [...] and subcortical deep white matter. The brain p arenchyma and the CSF spaces are otherwise unremarkable. No mass, midline shift, hemorrhage, edema or hydrocephalus is seen. The visualized paranasal sinuses are clear. The mastoid air cells are well pneumatized. The bony calvarium is intact. Impression: 1. No acute intracranial abnormality. 2. Atrophy. 3. Atherosclerotic microvascular disease. 4. Otherwise unremarkable exam. at 1956 Reported and signed by: John Alonso M.D. CC: Technologist:Lisandra Murguia, RT(R)(CT) CTDI: DLP: Trnscb Date/Time: 01/05/2021 (1956) [place] Orig Print D/T: S: 01/05/2021 (1999) PAGE 1 Signed ReportCT, SPINE, CERVICAL, WO CONTRAST 2021-01-03 11:25:00Unlisted Reason for Exam - Click Yes and Enter Reason Below- >YesUnlisted Reason for Exam->postop scan [facility] : 1955 Sex: FFINAL REPORT EXAM: CERVICAL [...] MDReport Verified Date/Time: 01/03/2021 11:25:10 Reading Location: [facility] Radiology Reading Room [facility] spine cervical without IV [id number] 11:25:00Interface, External Ris In - 01/03/2021 11:27 [...] MDReport Verified Date/Time: 01/03/2021 11:25:10 Reading Location: [facility] Radiology Reading [facility] 1 V[facility], NON [id number] 08:36:00Reason for exam:->pneumoniaShould this be performed at the bedside?->Yes [facility] 1955 Sex: FFINAL REPORT INDICATION:Pneumonia. COMPARISON:12/30/2020. TECHNIQUE:Frontal view of chest. FINDINGS:Right subclavian approach central venous catheter tip at atrial caval junction.Elevatedright hemidiaphragm.Persistent infiltrate in right lower lobe.Mild pulmonary vascular congestion.No pleural effusion or pneumothorax. IMPRESSION:Right lower lobe infectious infiltrate persists. Signed:Pal Parkinson Verified Date/Time: 01/03/2021 08:36:21 Reading Location: [facility] Radiology Reading Room XR chest 1 view portable / [id number] 08:36:00Interface, External Ris In - 01/03/2021 8:38 AM CDTFINAL REPORT INDICATION:Pneumonia. COMPARISON:12/30/2020. TECHNIQUE:Frontal view of chest. FINDINGS:Right subclavian approach central venous catheter tip at atrial caval junction.Elevated right hemidiaphragm.Persistent infiltrate inright lower lobe.Mild pulmonary vascular congestion.No pleural effusion or pneumothorax. IMPRESSION:Right lower lobe infectious infiltrate persists. Signed: Pal Parkinson Verified Date/Time: 01/03/2021 08:36:21 Reading Location: [facility] Radiology Reading Room [facility] CenterComprehensive metabolic [id number] 05:56:00 Test Item Value Reference Range Interpretation Comments Protein, Total (test 5.8 See_Comment L [Autom ated code = 2885-2) message] The system which generated this result transmit melquiades reference range : 6.0 - 8.5 gm/dL . The reference range was not u sed to interpret th is result as normal/abnormal . Albumin (test code = 3.0 g/dL 3.5-5 L 89332-4) Alkaline Phosphatase 48 U/L 30-115 (test code = 6768-6) Total Bilirubin (test 0.4 mg/dL 0.1-1.2 code = 1974-2) Sodium (test code = 134 meq/L 135-148 L 2951-2) Potassium (test code 3.9 meq/L 3.6-5.5 = 2823-3) Chloride (test code = 98 meq/L 98-106 5-0) CO2 (test code = 24 meq/L 20-29 8-9) BUN (test code = 82 mg/dL 10-26 H 3094-0) Creatinine (test code 7.00 mg/dL 0.5-1.2 H = 2160-0) Glucose (test code = 198 mg/dL 70-110 H 2345-7) Calcium (test code = 8.8 mg/dL 8.5-10.5 60109-9) AST (test code = 29 U/L 5-40 1920-8) ALT (test code = 6 U/L 5-50 1742-6) EGFR (test code = 7 mL/min/1.73 [place] [address]-9) NOT ACCURATE CREATININE CLEARANCE IN PREDICTING GLOMERULAR FILTRATION RATE . ESTIMATED GFR I S NOT APPLICABLE FOR DIALYSIS PATIEN TS. BEKAH (test code = BEKAH) Industrial Engineering Technologist ID - [id number] r ID - [id number] r ID - [id number] r ID - [id number] r ID - [id number] r ID - [id number] r ID - [id number] r ID - [id number] r ID - [id number] r ID - [id number] r ID - [id number] r ID - [id number] r ID - [id number] r ID - [id number] r ID - [id number] r ID - [id number] Lab Interpretation Abnormal (test code = 94786-7) [facility] CenterCOMPRE[facility] [id number] 05:56:00 Test Item Value Reference Range Interpretation [...] S NOT APPLICABLE FOR DIALYSIS PATIEN TS. Industrial Engineering Technologist ID - [id number] ID - [id number] ID - [id number] ID - [id number] ID - [id number] ID - [id number] ID - [id number] ID - [id number] ID - [id number] ID - [id number] ID - [id number] ID - [id number] ID - [id number] ID - [id number] ID - [id number] ID - [id number] Hkigutgty5043-68-16 05:51:00 Test Item Value Reference Range Interpretation Comments Magnesium (test code = 2.6 mg/dL 1.5-3 74230-5) BEKAH (test code = BEKAH) Industrial Engineering Technologist ID - [id number] ID - [id number] ID - [id number] ID - [id number] Lab Interpretation (test Normal code = 69600-7) [facility] CenterMAGNESIUM2021-07-13 05:51:00 Test Item Value Reference Range Interpretation Comments MAGNESIUM (BEAKER) (test code = 2.6 mg/dL 1.5-3.0 627) Industrial Engineering Technologist ID - [id number] ID - [id number] ID - [id number] ID - [id number] with platelet count + automated [id number] 05:38:00 Test Item Value Reference Range Interpretation Comments WBC (test code = 6690-2) 11.9 See_Comment H [A utomated message] The system Receept generated this result transmitted ref erence range: 4.0 - 10 .0 K/L. The refe rence range was not u sed to interpret this result as normal/abnor mal. RBC (test code = 789-8) 3.68 See_Comment L [Au tomated message] The system Receept generated this result transmitted ref erence range: 4.00 - 5 .00 M/L. The refe rence range was not u sed to interpret this result as normal/abnor mal. MCHC (test code = 786-4) 32.1 See_Comment L [A utomated message] The system Receept generated this result transmitted ref erence range: [...] See_Comment [Aut omated message] 777-3) The system Receept generated this result transmitted ref erence range: 150 - 43 0 K/CU MM. The referen ce range was not u sed to interpret this result as normal/abnor mal. MPV (test code = 11.3 fL 6-11.5 88341-4) nRBC (test code = 413) 0 See_Comment [Aut omated message] The system Receept generated this result transmitted ref erence range: [...] H [Aut omated message] 670) The system Receept generated this result transmitted ref erence range: 1.80 - 8 .00 K/L. The refe rence range was not u sed to interpret this result as normal/abnor mal. # Lymphs (test code = 0.32 See_Comment L [Auto mated message] 414) The system Receept generated this result transmitted ref erence range: 1.48 - 4 .50 K/L. The refe rence range was not u sed to interpret this result as normal/abnor mal. # Monos (test code = 0.84 See_Comment [Autom ated message] 415) The system Receept generated this result transmitted ref erence range: 0.00 - 1 .30 K/L. The refe rence range was not u sed to interpret this result as normal/abnor mal. # Eos (test code = 416) 0.00 See_Comment [Au tomated message] The system Receept generated this result transmitted ref erence range: 0.00 - 0 .50 K/L. The refe rence range was not u sed to interpret this result as normal/abnor mal. # Baso (test code = 417) 0.02 See_Comment [A utomated message] The system Receept generated this result transmitted ref erence range: 0.00 - 0 .20 K/L. The refe rence range was not u sed to interpret this result as normal/abnor mal. Immature 3 % 0-0 H Granulocytes-Relative (test code = 2801) Lab Interpretation (test Abnormal code = 41572-5) [facility] W/PLT COUNT & AUTO [id number] 05:38:00 Test Item Value Reference Range Interpretation [...] (BEAKER) (test code = 2801) Basic Metabolic [id number] 06:17:00 Test Item Value Reference Range Interpretation Comments Sodium (test code = 135 meq/L 011-782 4562-2) Potassium (test code = 4.0 meq/L 3.6-5.5 2823-3) Chloride (test code = 98 meq/L 98-106 2075-0) CO2 (test code = 24 meq/L 20-29 2028-9) BUN (test code = 71 mg/dL 10-26 H 3094-0) Creatinine (test code 6.95 mg/dL 0.5-1.2 H = 2160-0) Glucose (test code = 202 mg/dL 70-110 H 2345-7) Calcium (test code = 8.7 mg/dL 8.5-10.5 32464-9) EGFR (test code = 7 mL/min/1.73 [place] [address]-9) NOT ACCURATE CREATININE CLEARANCE IN PREDICTING GLOMERULAR FILTRATION RATE . ESTIMATED GFR I S NOT APPLICABLE FOR DIALYSIS PATIENTS. BEKAH (test code = BEKAH) Industrial Engineering Technologist ID - [id number] ID - [id number] ID - HYFR89Fgdwpavt ID - PMOS73Rnlejztn ID - JKIN84Xogtmcnt ID - UZEH94Dmevmivd ID - QFNE15Bkbjqxqt ID - OOYB76Eadlclyt ID - QZLW80Ibjqagzn ID - VNYZ73Jnrqaxqj ID - EXGQ85Yrywyite ID - GIKR74Fsqodskg ID - [id number] Lab Interpretation Abnormal (test code = 79894-9) [facility] CenterBASIC [facility]ABOLIC [id number] 06:17:00 Test Item Value Reference Range Interpretation [...] S NOT APPLICABLE FOR DIALYSIS PATIEN TS. Industrial Engineering Technologist ID - [id number] ID - OJBF12Yolmamoj ID - TUXG49Fqzixxsn ID - ZSBP12Xlbalzxp ID - HCHN74Yoyylayu ID - RGLO57Pwqzehrb ID - POKW21Jmgtozuj ID - WUGP62Zoesfioy ID - UFSN21Tpdzuvcr ID - FKHZ88Uaybxjch ID - SFCA83Xhequcmm ID - MZMB06Lmisvmfp ID - [id number] W/PLT COUNT & AUTO [id number] 06:06:00 Test Item Value Reference Range Interpretation [...] 0-0 H PERCENT (BEAKER) (test code = 2802) BASIC METABOLIC [id number] 06:09:00 Test Item Value Reference Range Interpretation [...] S NOT APPLICABLE FOR DIALYSIS PATIEN TS. Industrial Engineering Technologist ID - onqx65Hdlxewdn ID - tdgn01Gfmxhuwy ID - nmjt67Htznunlg ID - rrnt25Lgitxexn ID - gmae98Wwonlanu ID - gsur33Udqjmupp ID - qgkb83Tjdxmjat ID - ckqe13Rmfqtnjz ID - vxvk25Fhvfnklz ID - bfpm76Rfmfigiayo3371-52-21 05:54:00 Test Item Value Reference Range Interpretation Comments Phosphorus (test code = 4.2 mg/dL 2.5-4.5 2777-1) BEKAH (test code = BEKAH) Industrial Engineering Technologist ID - [id number] ID - nwfr02Kcctrdsb ID - egly96Xwzmairu ID - zres04 Lab Interpretation (test Normal code = 72448-6) [facility] CenterPHOSPHORUS2021-07-11 05:54:00 Test Item Value Reference Range Interpretation Comments PHOSPHORUS (BEAKER) (test code = 4.2 mg/dL 2.5-4.5 604) Industrial Engineering Technologist ID - [id number] ID - piys27Upyqzsxq ID - bixo61Cgtybank ID - [id number] CBC W/PLT COUNT & AUTO [id number] 05:47:00 Test Item Value Reference Range Interpretation [...] H PERCENT (BEAKER) (test code = 2801) [id number] 15:01:00 Test Item Value Reference Range Interpretation Comments PTT (test code = 91177-7) 26.9 See_Comment Fi nal Information (Auto Output) [Automated mess age] The system Receept generated this result transmitted ref erence range: 23.0 - 3 5.0 seconds. The re ference range was not u sed to interpret this result as normal/abnor mal. Lab Interpretation (test Normal code = 80658-1) [facility] CenterAPTT2021-07-10 15:01:00 Test Item Value Reference Range Interpretation Comments PARTIAL THROMBOPLASTIN 26.9 seconds 23.0-35.0 Final Information TIME (BEAKER) (test (Auto Ou tput) code = 760) BASIC METABOLIC [id number] 07:06:00 Test Item Value Reference Range Interpretation [...] S NOT APPLICABLE FOR DIALYSIS PATIEN TS. Industrial Engineering Technologist ID - LITOOperator ID - LITOOperator ID - LITOOperator ID - LITOOperator ID - LITOOperator ID - LITOOperator ID - LITOOperator ID - LITOOperator ID - LITOOperator ID - LITOOperator ID - LITOOperator ID - LITOOperator ID - KRYSTA GETBYCBFUJ9335-18-16 06:03:00 Test Item Value Reference Range Interpretation Comments PHOSPHORUS (BEAKER) 4.2 mg/dL 2.5-4.5 Specimen markedly (test code = 604) hemolyzed Industrial Engineering Technologist ID - LITOOperator ID - LITOOperator ID - LITOOperator ID - LITOCBC W/PLT COUNT & AUTO [id number] 05:46:00 Test Item Value Reference Range Interpretation [...] 0-0 H PERCENT (BEAKER) (test code = 2809) ANG, CENTRAL VENOUS CATH PLCMT (JUG/FEM) > 5 Y.O. WITH [id number] 16:14:00Reason for exam:->iv meds [facility] : 1955 Sex: FFINAL REPORT Procedure: Placement [...] the tract was dilated and a 7 Australian double lumen triple-lumen was placed with itstip in the upper portion of the right atrium. The catheter was then flushed and secured in place by means of sutures. CONCLUSION: Placement of triple-lumen central line. 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 The catheter was then flushed and secured in place by means of sutures. CONCLUSION: Placement of triple-lumen central line. Relatively high-grade stenoses in the lower portion of the right internal jug ular vein Signed: Margo Reddy MDReport Verified Date/Time: 12/30/2020 16:14:05 Reading Location: [facility] Radiology [facility] 1 [facility], NON [id number] 07:49:00Reason for exam:->pneumoniaShould this be performed at the bedside?->Yes [facility] : 1955 Sex: FFINAL [...] Reddy Verified Date/Time: 12/30/2020 07:49:55 Reading Location: [facility] Radiology Reading Room COMPREHENSIVE METABOLIC [id number] 05:59:00 Test Item Value Reference Range Interpretation [...] S NOT APPLICABLE FOR DIALYSIS PATIEN TS. Industrial Engineering Technologist ID - [id number] ID - fjxb36Epmvbzxf ID - wede02Ojtlpkcr ID - emza25Skazokja ID - xskv72Lbjwuwhr ID - xkxn49Rzgamkkm ID - zval68Kxstkgvi ID - leme26Ldgwckfc ID - onib74Xjkqofxy ID - vajn66Rvfygybt ID - axqf59Qvuyckxl ID - zgjm45Qhxdyoxe ID - occz89Owhbhwat ID - xffx71Jcmeiydo ID - toag16Cunxdiyh ID - hesg57MMLZZMXZT8649-52-78 05:49:00 Test Item Value Reference Range Interpretation Comments MAGNESIUM (BEAKER) (test code = 1.8 mg/dL 1.5-3.0 627) Industrial Engineering Technologist ID - fkwh16Ltocqdhk ID - kqon38Pzgxllfx ID - jwav89Nsfmplji ID - zdma02 VIZGQODZEQ1773-51-85 05:46:00 Test Item Value Reference Range Interpretation Comments PHOSPHORUS (BEAKER) (test code = 4.4 mg/dL 2.5-4.5 604) Industrial Engineering Technologist ID - [id number] W/PLT COUNT & AUTO NNCFBWRHTLPD3222-37-63 05:07:00 Test Item Value Reference Range Interpretation [...] code = 2801) CT, SPINE, CERVICAL, WO [id number] 14:29:00Unlisted Reason for Exam - Click Yes and Enter Reason Below->YesUnlisted Reason for Exam->post cervical laminectomy with new onset RUE pain [facility] : 1955 Sex: FFINAL [...] Verified Date/Time: 12/29/2020 14:29:28 Hepatitis B surface biymlnby4928-97-78 13:29:00 Test Item Value Reference Interpretation Comments Range Hep B S Ab (test 118.3 See_Comment H [Automated code = 64389-9) message] The system which generated this result transmitted reference range : <8.0 mIU/mL. Th e reference range was not used to interpret this result as normal/abnormal . BEKAH (test code = Industrial Engineering Technologist ID - BEKAH) EMERSONOperator ID - DEAN Lab Interpretation Abnormal (test code = 32366-5) [facility] CenterHEPATITIS B SURFACE [id number] 13:29:00 Test Item Value Reference Range Interpretation Comments HEPATITIS B SURFACE ANTIBODY 118.3 mIU/mL <8.0 H (BEAKER) (test code = 647) Industrial Engineering Technologist ID - EMERSONOperator ID - EMERSONARTERIAL DOPPLER ARM, [id number] 09:03:00Reason for exam:->acute right upper extremity pain [facility] : 1955 Sex: FFINAL REPORT Right upper [...] CONCLUSION: Patent arterial system. Signed: Margo Reddy [facility] [place] [place] Verified Date/Time: 12/29/2020 09:03:46 Reading Location: [facility] Radiology Reading Room Arterial doppler arm, right [...] MDReport Verified Date/Time: 12/29/2020 09:03:46 Reading Location: [facility] Radiology Reading Room Electronically signed by: MARGO REDDY M.D.on 12/29/2020 09:03 [facility] CenterVENOUS DOPPLER ARM, [id number] 08:59:00Reason for exam:- >acute pain right upper extremity [facility] CORR[facility] ONI : 1955 Sex: FFINAL REPORT Right arm [...] evidence of venous thrombosis. Signed: Margo Reddy MDRbrentort Verified Date/Time: 12/29/2020 08:59:35 [facility] Venous doppler arm, [id number] 08:59:00Interface, External Ris In - 12/29/2020 9:01 [...] MDReport Verified Date/Time: 12/29/2020 08:59:35 Reading Location: [facility] Radiology Reading Room Electronically signedby: MARGO REDDY M.D. on 12/29/2020 08:59 [facility] CenterHepatitis B surface antigen 2020-12-29 06:52:00 Test Item Value Reference Range Interpretation Comments HBsAg Screen (test code Nonreactive Nonreactive = 5195-3) BEKAH (test code = BEKAH) Industrial Engineering Technologist ID - [id number] Lab Interpretation (test Normal code = 96355-0) [facility] B SURFACE [id number] 06:52:00 Test Item Value Reference Range Interpretation Comments HEPATITIS B SURFACE ANTIGEN (2) Nonreactive Nonreactive (BEAKER) (test code = 2585) Industrial Engineering Technologist ID - [id number], CHEST, 1 VIEW, NON [id number] 11:49:00Reason for exam:->post opShould this be performed at the bedside?->Yes [facility] : 1955 Sex: FFINAL REPORT Portable chest [...] MDReport Verified Date/Time: 12/28/2020 11:49:46 Reading Location: [facility] RadiologyReading Room RAD, HIP, 2-3 VIEWS, LEFT, TO INCL PELVIS WHEN [id number] 10:32:00Reason for exam:->left hip and groin pain x 1 month [facility] : 1955 Sex: FFINAL REPORT Left hip, [...] Reddyort Verified Date/Time: 12/28/2020 10:32:44 Reading Location: [facility] Radiology Reading Room XR hip 2 views [id number] 10:32:00Interface, External Ris In - 12/28/2020 10:34 [...] Reddy Verified Date/Time: 12/28/2020 10:32:44 Reading Location: [facility] Radiology Reading Room [facility] CenterMAGNESIUM2021-07-07 06:34:00 Test Item Value Reference Range Interpretation Comments MAGNESIUM (BEAKER) (test code = 1.7 mg/dL 1.5-3.0 627) Industrial Engineering Technologist ID - [id number] ID - [id number] ID - [id number] ID - [id number] METABOLIC [id number] 06:34:00 Test Item Value Reference Range Interpretation [...] S NOT APPLICABLE FOR DIALYSIS PATIEN TS. Industrial Engineering Technologist ID - [id number] ID - [id number] ID - [id number] ID - [id number] ID - [id number] ID - [id number] ID - [id number] ID - [id number] ID - [id number] ID - [id number] ID - [id number] ID - [id number] ID - [id number] ID - [id number] ID - [id number] ID - [id number] W/PLT COUNT & AUTO [id number] 05:49:00 Test Item Value Reference Range Interpretation [...] H PERCENT (BEAKER) (test code = 2801) ABORMarito, [id number] 16:06:00 Test Item Value Reference Range Interpretation Comments ABO Grouping (test code = 2588) B [id number] Rh Factor (test code = 2589) POS 12/27/2020, 1054 [facility]FL, FLUORO, NON-SPECIFIC, UP TO 1 [id number] 12:50:00Reason for exam:->[facility] : 1955 Sex: FFluoroscopic unit utilized for a procedure performed in the OR. No interpretation was requested. Refer tothe operative report for findings. Refer to PACS for patient radiation dose information.FL fluoro non-specific up to 1 [id number] 12:50:00 Interface, External Ris In - 12/27/2020 12:50 PM CDTFluoroscopic unit utilized for a procedure performed in the OR. No interpretation was requested. Refer to the operative report for findings. Refer toPACS for patient radiation dose information.[facility] CenterType and screen, [id number] 09:27:00 Test Item Value Reference Range Interpretation Comments ABO/RH AUTOMATED (BEAKER) (test B POSITIVE ECHO code = 2260) Ab Scrn (test code = 890-4) NEGATIVE ECHO [facility] CenterPotassium2021-07-06 09:10:00 Test Item Value Reference Range Interpretation Comments Potassium (test code = 3.5 meq/L 3.6-5.5 L 2823-3) BEKAH (test code = BEKAH) Industrial Engineering Technologist ID - [id number] ID - [id number] ID - [id number] ID - [id number] Lab Interpretation (test Abnormal code = 34640-1) [facility] CenterPT/[id number] 09:10:00 Test Item Value Reference Interpretation Comments [...] (test code = 22.2 See_Comment L Final 59144-5) Information (Auto Output) [Automated message] The system [...] valves. Lab Interpretation Abnormal (test code = 38350-4) [facility] CenterPT/[id number] 09:10:00 Test Item Value Reference Range Interpretation Comments PROTIME (BEAKER) (test 11.6 seconds 9.3-12.0 Final Information code = 759) (Auto Output) INR (BEAKER) (test 1.05 See_Comment Final Inf ormation code = 370) (Auto Output) [Automated mess age] The system [employer] generated this result transmit melquiades reference range [...] is 2.5-3.5 for patients with mechanical heart valves.[id number] 09:10:00 Test Item Value Reference Range Interpretation Comments POTASSIUM (BEAKER) (test code = 3.5 meq/L 3.6-5.5 L 379) Industrial Engineering Technologist ID - [id number] ID - [id number] ID - [id number] ID - [id number] BASIC METABOLIC [id number] 11:58:00 Test Item Value Reference Range Interpretation [...] 1092) DATA TO CALCULA TE ESTIMATED GFR. Industrial Engineering Technologist ID - [id number] ID - [id number] ID - [id number] ID - [id number] ID - HBQCS674Rbkldqob ID - [id number] ID - HTGHU281Vfarllci ID - [id number] ID - [id number] ID - [id number] ID - [id number] ID - [id number] ID - [id number] PT/[id number] 11:55:00 Test Item Value Reference Range Interpretation Comments PROTIME (BEAKER) (test 12.0 seconds 9.3-12.0 Final Information code = 759) (Auto Output) INR (BEAKER) (test 1.09 See_Comment Final Inf ormation code = 370) (Auto Output) [Automated mess age] The system [employer] generated this result transmit melquiades reference range [...] mechanical heart valves.CBC W/PLT COUNT & AUTO [id number] 11:42:00 Test Item Value Reference Range Interpretation [...] (test code = 416) BASOPHILS ABSOLUTE COUNT (AKER) 0.04 K/ L 0.00-0.20 (test code = 417) IMMATURE GRANULOCYTES-RELATIVE 0 % 0-0 PERCENT (BEAKER) (test code = 2801) CHEM [id number] 15:09:00 Test Item Value Reference Range Interpretation Comments Chloride Lvl (test code = Chloride Lvl) 107 95-109 [facility] [place] [id number] 15:09:00 Test Item Value Reference Range Interpretation Comments CO2 (test code = CO2) 24 24-32 [facility] [place] [id number] 15:09:00 Test Item Value Reference Range Interpretation Comments Calcium Lvl (test code = Calcium Lvl) 9.7 8.5-10.5 [facility] [place] [id number] 15:09:00 Test Item Value Reference Range Interpretation Comments AGAP (test code = AGAP) 10.6 10.0-20.0 [facility] [employer]2020-12-03 15:09:00 Test Item Value Reference Range Interpretation Comments eGFR (test code = eGFR) 10 [facility] [employer] [id number] 15:09:00 Test Item Value Reference Range Interpretation Comments ABO/Rh (test code = ABO/Rh) B POS [facility] [employer] [id number] 15:09:00 Test Item Value Reference Range Interpretation Comments Antibody Scrn (test Negative (05/26/20 9:09 code = Antibody Scrn) AM) [facility] [place] [id number] 15:09:00 Test Item Value Reference Range Interpretation Comments Glucose Lvl (test code = Glucose Lvl) 84 70-99 [facility] [place] [id number] 15:09:00 Test Item Value Reference Range Interpretation Comments BUN (test code = BUN) 20 7-22 [facility] [employer]2020-12-03 15:09:00 Test Item Value Reference Range Interpretation Comments Creatinine Lvl (test code = Creatinine 4.97 0.50-1.40 Lvl) [facility] [place] [id number] 15:09:00 Test Item Value Reference Range Interpretation Comments Sodium Lvl (test code = Sodium Lvl) 138 135-145 [facility] [place] [id number] 15:09:00 Test Item Value Reference Range Interpretation Comments Potassium Lvl (test code = Potassium 3.6 3.5-5.1 Lvl) [facility] [id number] 15:09:00 Test Item Value Reference Range Interpretation Comments Chloride Lvl (test code = Chloride Lvl) 107 95-109 [facility] [id number] 15:09:00 Test Item Value Reference Range Interpretation Comments CO2 (test code = CO2) 24 24-32 [facility] [id number] 15:09:00 Test Item Value Reference Range Interpretation Comments Calcium Lvl (test code = Calcium Lvl) 9.7 8.5-10.5 [facility] [place] [id number] 15:09:00 Test Item Value Reference Range Interpretation Comments AGAP (test code = AGAP) 10.6 10.0-20.0 [facility] [id number] 15:09:00 Test Item Value Reference Range Interpretation Comments eGFR (test code = eGFR) 10 [facility] [id number] 15:09:00 Test Item Value Reference Range Interpretation Comments ABO/Rh (test code = ABO/Rh) B POS [facility] [employer] [id number] 15:09:00 Test Item Value Reference Range Interpretation Comments Antibody Scrn (test Negative (05/26/20 9:09 code = Antibody Scrn) AM) [facility] [id number] 15:09:00 Test Item Value Reference Range Interpretation Comments Glucose Lvl (test code = Glucose Lvl) 84 70-99 [facility] [id number] 15:09:00 Test Item Value Reference Range Interpretation Comments BUN (test code = BUN) 20 7-22 [facility] [id number] 15:09:00 Test Item Value Reference Range Interpretation Comments Creatinine Lvl (test code = Creatinine 4.97 0.50-1.40 Lvl) [facility] [id number] 15:09:00 Test Item Value Reference Range Interpretation Comments Sodium Lvl (test code = Sodium Lvl) 138 135-145 [facility] [id number] 15:09:00 Test Item Value Reference Range Interpretation Comments Potassium Lvl (test code = Potassium 3.6 3.5-5.1 Lvl) [facility] [id number] 15:09:00 Test Item Value Reference Range Interpretation Comments Chloride Lvl (test code = Chloride Lvl) 107 95-109 [facility] [place] [id number] 15:09:00 Test Item Value Reference Range Interpretation Comments CO2 (test code = CO2) 24 24-32 [facility] [id number] 15:09:00 Test Item Value Reference Range Interpretation Comments Calcium Lvl (test code = Calcium Lvl) 9.7 8.5-10.5 [facility] [id number] 15:09:00 Test Item Value Reference Range Interpretation Comments AGAP (test code = AGAP) 10.6 10.0-20.0 [facility] [id number] 15:09:00 Test Item Value Reference Range Interpretation Comments eGFR (test code = eGFR) 10 [facility] [employer] [id number] 15:09:00 Test Item Value Reference Range Interpretation Comments ABO/Rh (test code = ABO/Rh) B POS [facility] [employer] [id number] 15:09:00 Test Item Value Reference Range Interpretation Comments Antibody Scrn (test Negative (05/26/20 9:09 code = Antibody Scrn) AM) [facility] [place] [id number] 15:09:00 Test Item Value Reference Range Interpretation Comments Glucose Lvl (test code = Glucose Lvl) 84 70-99 [facility] [id number] 15:09:00 Test Item Value Reference Range Interpretation Comments BUN (test code = BUN) 20 7-22 [facility] [id number] 15:09:00 Test Item Value Reference Range Interpretation Comments Creatinine Lvl (test code = Creatinine 4.97 0.50-1.40 Lvl) [facility] [id number] 15:09:00 Test Item Value Reference Range Interpretation Comments Sodium Lvl (test code = Sodium Lvl) 138 135-145 [facility] [id number] 15:09:00 Test Item Value Reference Range Interpretation Comments Potassium Lvl (test code = Potassium 3.6 3.5-5.1 Lvl) [facility] [id number] 15:09:00 Test Item Value Reference Range Interpretation Comments Chloride Lvl (test code = Chloride Lvl) 107 95-109 [employer] [id number] 15:09:00 Test Item Value Reference Range Interpretation Comments CO2 (test code = CO2) 24 24-32 [facility] [id number] 15:09:00 Test Item Value Reference Range Interpretation Comments Calcium Lvl (test code = Calcium Lvl) 9.7 8.5-10.5 [employer] [id number] 15:09:00 Test Item Value Reference Range Interpretation Comments AGAP (test code = AGAP) 10.6 10.0-20.0 [employer] [id number] 15:09:00 Test Item Value Reference Range Interpretation Comments eGFR (test code = eGFR) 10 [facility] [id number] 15:09:00 Test Item Value Reference Range Interpretation Comments ABO/Rh (test code = ABO/Rh) B POS [facility] [id number] 15:09:00 Test Item Value Reference Range Interpretation Comments Antibody Scrn (test Negative (05/26/20 9:09 code = Antibody Scrn) AM) [facility] [id number] 15:09:00 Test Item Value Reference Range Interpretation Comments Glucose Lvl (test code = Glucose Lvl) 84 70-99 [facility] [id number] 15:09:00 Test Item Value Reference Range Interpretation Comments BUN (test code = BUN) 20 7-22 [facility] [id number] 15:09:00 Test Item Value Reference Range Interpretation Comments Creatinine Lvl (test code = Creatinine 4.97 0.50-1.40 Lvl) [employer] [id number] 15:09:00 Test Item Value Reference Range Interpretation Comments Sodium Lvl (test code = Sodium Lvl) 138 135-145 [employer] [id number] 15:09:00 Test Item Value Reference Range Interpretation Comments Potassium Lvl (test code = Potassium 3.6 3.5-5.1 Lvl) [employer] [id number] 15:09:00 Test Item Value Reference Range Interpretation Comments Chloride Lvl (test code = Chloride Lvl) 107 95-109 [employer] [id number] 15:09:00 Test Item Value Reference Range Interpretation Comments CO2 (test code = CO2) 24 24-32 [facility] [id number] 15:09:00 Test Item Value Reference Range Interpretation Comments Calcium Lvl (test code = Calcium Lvl) 9.7 8.5-10.5 [facility] [id number] 15:09:00 Test Item Value Reference Range Interpretation Comments AGAP (test code = AGAP) 10.6 10.0-20.0 [facility] [id number] 15:09:00 Test Item Value Reference Range Interpretation Comments eGFR (test code = eGFR) 10 [facility] [id number] 15:09:00 Test Item Value Reference Range Interpretation Comments ABO/Rh (test code = ABO/Rh) B POS [facility] [employer] [facility] [id number] 15:09:00 Test Item Value Reference Range Interpretation Comments Antibody Scrn (test Negative (05/26/20 9:09 code = Antibody Scrn) AM) [facility] [id number] 15:09:00 Test Item Value Reference Range Interpretation Comments Glucose Lvl (test code = Glucose Lvl) 84 70-99 [facility] [id number] 15:09:00 Test Item Value Reference Range Interpretation Comments BUN (test code = BUN) 20 7-22 [facility] [id number] 15:09:00 Test Item Value Reference Range Interpretation Comments Creatinine Lvl (test code = Creatinine 4.97 0.50-1.40 Lvl) [facility] [id number] 15:09:00 Test Item Value Reference Range Interpretation Comments Sodium Lvl (test code = Sodium Lvl) 138 135-145 [facility] [id number] 15:09:00 Test Item Value Reference Range Interpretation Comments Potassium Lvl (test code = Potassium 3.6 3.5-5.1 Lvl) [facility] [id number] 13:47:00 Test Item Value Reference Range Interpretation Comments Coronavirus (COVID-19) Not Detected (05/26/20 KAYLEE (test code = 7:47 AM) Coronavirus (COVID-19) KAYLEE) [id number] 13:47:00 Test Item Value Reference Range Interpretation Comments Coronavirus (COVID-19) Not Detected (05/26/20 KAYLEE (test code = 7:47 AM) Coronavirus (COVID-19) KAYLEE) [facility] [id number] 13:47:00 Test Item Value Reference Range Interpretation Comments Coronavirus (COVID-19) Not Detected (05/26/20 KAYLEE (test code = 7:47 AM) Coronavirus (COVID-19) KAYLEE) [facility] [id number] 13:47:00 Test Item Value Reference Range Interpretation Comments Coronavirus (COVID-19) Not Detected (05/26/20 KAYLEE (test code = 7:47 AM) Coronavirus (COVID-19) KAYLEE) [facility] [id number] 13:47:00 Test Item Value Reference Range Interpretation Comments Coronavirus (COVID-19) Not Detected (05/26/20 KAYLEE (test code = 7:47 AM) Coronavirus (COVID-19) KAYLEE) [employer] [id number] 15:31:00 Test Item Value Reference Range Interpretation Comments ABO/Rh (test code = ABO/Rh) B POS [employer] [id number] 15:31:00 Test Item Value Reference Range Interpretation Comments Antibody Scrn (test Negative (05/17/20 code = Antibody Scrn) 9:31 AM) [employer] [id number] 15:31:00 Test Item Value Reference Range Interpretation Comments Glucose Lvl (test code = Glucose Lvl) 91 70-99 [employer]2020-11-24 15:31:00 Test Item Value Reference Range Interpretation Comments BUN (test code = BUN) 29 7-22 [employer]2020-11-24 15:31:00 Test Item Value Reference Range Interpretation Comments Creatinine Lvl (test code = Creatinine 5.79 0.50-1.40 Lvl) [employer]2020-11-24 15:31:00 Test Item Value Reference Range Interpretation Comments Sodium Lvl (test code = Sodium Lvl) 141 135-145 [employer]2020-11-24 15:31:00 Test Item Value Reference Range Interpretation Comments Potassium Lvl (test code = Potassium 3.9 3.5-5.1 Lvl) [place] 546840-11-24 15:31:00 Test Item Value Reference Range Interpretation Comments Chloride Lvl (test code = Chloride Lvl) 108 95-109 [place] 546840-11-24 15:31:00 Test Item Value Reference Range Interpretation Comments CO2 (test code = CO2) 27 24-32 [place] [id number] 15:31:00 Test Item Value Reference Range Interpretation Comments Calcium Lvl (test code = Calcium Lvl) 9.9 8.5-10.5 [facility]2020-11-24 15:31:00 Test Item Value Reference Range Interpretation Comments AGAP (test code = AGAP) 9.9 10.0-20.0 [place] 546840-11-24 15:31:00 Test Item Value Reference Range Interpretation Comments eGFR (test code = eGFR) 7 [facility]GCZHNFXZMM6383-31-89 15:31:00 Test Item Value Reference Range Interpretation Comments WBC (test code = WBC) 5.2 3.7-10.4 [place] [id number] 15:31:00 Test Item Value Reference Range Interpretation Comments RBC (test code = RBC) 3.61 4.20-5.40 [place] 579810-11-24 15:31:00 Test Item Value Reference Range Interpretation Comments Hgb (test code = Hgb) 10.4 12.0-16.0 [place] [address]-11-24 15:31:00 Test Item Value Reference Range Interpretation Comments Hct (test code = Hct) 33.1 36.0-48.0 [place] 579810-11-24 15:31:00 Test Item Value Reference Range Interpretation Comments MCV (test code = MCV) 91.8 80.0-98.0 [place] 277[address]-11-24 15:31:00 Test Item Value Reference Range Interpretation Comments MCH (test code = MCH) 28.8 pg 27.0-31.0 [place] 579810-11-24 15:31:00 Test Item Value Reference Range Interpretation Comments MCHC (test code = MCHC) 31.3 32.0-36.0 [place] 579810-11-24 15:31:00 Test Item Value Reference Range Interpretation Comments RDW (test code = RDW) 15.9 11.5-14.5 [facility] ArlingtonNfjgugxBCYWBBIXVU3749-88-16 15:31:00 Test Item Value Reference Range Interpretation Comments Platelet (test code = Platelet) 180 133-450 [facility] ArlingtonWgbkxnzGSPPKIXESO6965-05-02 15:31:00 Test Item Value Reference Range Interpretation Comments MPV (test code = MPV) 9.2 7.4-10.4 [facility] ArlingtonDukxfvzPLXPCDGNSQ5811-11-60 15:31:00 Test Item Value Reference Range Interpretation Comments PT (test code = PT) 14.8 s 12.0-14.7 [facility] ArlingtonKxrvjxoYHGQQJOLZM2158-29-22 15:31:00 Test Item Value Reference Range Interpretation Comments INR (test code = INR) 1.15 1 0.85-1.17 [facility] ArlingtonWmqcemoXPNAJMSFVI9767-53-63 15:31:00 Test Item Value Reference Range Interpretation Comments PTT (test code = PTT) 29.5 s 22.9-35.8 [facility] ArlingtonXvftcncMYIIYANFFN5558-50-09 15:31:00 Test Item Value Reference Range Interpretation Comments Segs (test code = Segs) 74.6 45.0-75.0 [facility] ArlingtonHqdyymnYFRWKQSLUW9590-00-00 15:31:00 Test Item Value Reference Range Interpretation Comments Lymphocytes (test code = Lymphocytes) 11.0 20.0-40.0 [facility] ArlingtonHezpoznBSJFESNNKB5272-16-13 15:31:00 Test Item Value Reference Range Interpretation Comments Monocytes (test code = Monocytes) 11.0 2.0-12.0 [place] 579810-11-24 15:31:00 Test Item Value Reference Range Interpretation Comments Eosinophils (test code = 2.6 See_Comment [A utomated message] The Eosinophils) system which ge nerated this result tra nsmitted reference range : <=4.0. The reference r eileen was not used to int erpret this result as normal/abnormal . [place] [address]-11-24 15:31:00 Test Item Value Reference Range Interpretation Comments Basophils (test code = 0.8 See_Comment [Aut omated message] The Basophils) system which ge nerated this result tra nsmitted reference range : <=1.0. The reference r eileen was not used to int erpret this result as normal/abnormal . [facility]zxkbkqAFKCBKDKCS6966-65-88 15:31:00 Test Item Value Reference Range Interpretation Comments Neutrophils # (test code = Neutrophils 3.9 1.5-8.1 #) [facility] ArlingtonGqjbftuDYTCARKMWC8355-32-29 15:31:00 Test Item Value Reference Range Interpretation Comments Lymphocytes # (test code = Lymphocytes 0.6 1.0-5.5 #) [facility] ArlingtonFtxqqglVUZMAMFCGE3675-56-09 15:31:00 Test Item Value Reference Range Interpretation Comments Monocytes # (test code 0.6 See_Comment [Aut omated message] The = Monocytes #) system which generated this result tra nsmitted reference range : <=0.8. The reference r eileen was not used to int erpret this result as normal/abnormal . [facility] TylerEqbpzbcQGUSZJDWVR7546-10-07 15:31:00 Test Item Value Reference Range Interpretation Comments Eosinophils # (test code 0.1 See_Comment [A utomated message] The = Eosinophils #) system whic h generated this result tra nsmitted reference range : <=0.5. The reference r eileen was not used to int erpret this result as normal/abnormal . [facility] [employer] XYYLXJY3109-53-55 15:31:00 Test Item Value Reference Range Interpretation Comments ABO/Rh (test code = ABO/Rh) B POS [facility] [employer] [facility] YOIKWAN9073-18-94 15:31:00 Test Item Value Reference Range Interpretation Comments Antibody Scrn (test Negative (05/17/20 code = Antibody Scrn) 9:31 AM) [facility] [id number] 15:31:00 Test Item Value Reference Range Interpretation Comments Glucose Lvl (test code = Glucose Lvl) 91 70-99 [facility] RVSEW0324-10-64 15:31:00 Test Item Value Reference Range Interpretation Comments BUN (test code = BUN) 29 7-22 [facility] [id number] 15:31:00 Test Item Value Reference Range Interpretation Comments Creatinine Lvl (test code = Creatinine 5.79 0.50-1.40 Lvl) [facility] [id number] 15:31:00 Test Item Value Reference Range Interpretation Comments Sodium Lvl (test code = Sodium Lvl) 141 135-145 [facility] [id number] 15:31:00 Test Item Value Reference Range Interpretation Comments Potassium Lvl (test code = Potassium 3.9 3.5-5.1 Lvl) [facility] [id number] 15:31:00 Test Item Value Reference Range Interpretation Comments Chloride Lvl (test code = Chloride Lvl) 108 95-109 [facility] [id number] 15:31:00 Test Item Value Reference Range Interpretation Comments CO2 (test code = CO2) 27 24-32 [facility] [id number] 15:31:00 Test Item Value Reference Range Interpretation Comments Calcium Lvl (test code = Calcium Lvl) 9.9 8.5-10.5 [facility] [id number] 15:31:00 Test Item Value Reference Range Interpretation Comments AGAP (test code = AGAP) 9.9 10.0-20.0 [facility] [id number] 15:31:00 Test Item Value Reference Range Interpretation Comments eGFR (test code = eGFR) 7 [facility]ULTBTTIWR1467-[facility]-25 15:31:00 Test Item Value Reference Range Interpretation Comments WBC (test code = WBC) 5.2 3.7-10.4 [facility]xrnqayQHMVIJCEHN3345-49-60 15:31:00 Test Item Value Reference Range Interpretation Comments RBC (test code = RBC) 3.61 4.20-5.40 [facility]GebnnpmFAGNJPEQLH2393-61-47 15:31:00 Test Item Value Reference Range Interpretation Comments Hgb (test code = Hgb) 10.4 12.0-16.0 [facility]wzphnDGOELOSYAD5199-26-02 15:31:00 Test Item Value Reference Range Interpretation Comments Hct (test code = Hct) 33.1 36.0-48.0 [place] 579810-11-24 15:31:00 Test Item Value Reference Range Interpretation Comments MCV (test code = MCV) 91.8 80.0-98.0 [place] 579810-11-24 15:31:00 Test Item Value Reference Range Interpretation Comments MCH (test code = MCH) 28.8 pg 27.0-31.0 [place] 579810-11-24 15:31:00 Test Item Value Reference Range Interpretation Comments MCHC (test code = MCHC) 31.3 32.0-36.0 [facility] ArlingtonWkywnptLMWDVVCOWM6682-52-40 15:31:00 Test Item Value Reference Range Interpretation Comments RDW (test code = RDW) 15.9 11.5-14.5 [facility] ArlingtonYqkddedNSZJPCURVR2511-01-12 15:31:00 Test Item Value Reference Range Interpretation Comments Platelet (test code = Platelet) 180 133-450 [facility] ArlingtonFvwbhzsEVOXQWKKWF7898-30-34 15:31:00 Test Item Value Reference Range Interpretation Comments MPV (test code = MPV) 9.2 7.4-10.4 [place] 579810-11-24 15:31:00 Test Item Value Reference Range Interpretation Comments PT (test code = PT) 14.8 s 12.0-14.7 [place] [address]-11-24 15:31:00 Test Item Value Reference Range Interpretation Comments INR (test code = INR) 1.15 1 0.85-1.17 [place] 579810-11-24 15:31:00 Test Item Value Reference Range Interpretation Comments PTT (test code = PTT) 29.5 s 22.9-35.8 [facility] ArlingtonJpdcnhlYILZTDMTMG3357-39-74 15:31:00 Test Item Value Reference Range Interpretation Comments Segs (test code = Segs) 74.6 45.0-75.0 [facility] ArlingtonGyxcuapAKRNKJDPFT8572-68-46 15:31:00 Test Item Value Reference Range Interpretation Comments Lymphocytes (test code = Lymphocytes) 11.0 20.0-40.0 [place] 579810-11-24 15:31:00 Test Item Value Reference Range Interpretation Comments Monocytes (test code = Monocytes) 11.0 2.0-12.0 [place] [address]-11-24 15:31:00 Test Item Value Reference Range Interpretation Comments Eosinophils (test code = 2.6 See_Comment [A utomated message] The Eosinophils) system which ge nerated this result tra nsmitted reference range : <=4.0. The reference r eileen was not used to int erpret this result as normal/abnormal . [facility] ArlingtonQjjvvntMBUXQHAWJO8426-63-08 15:31:00 Test Item Value Reference Range Interpretation Comments Basophils (test code = 0.8 See_Comment [Aut omated message] The Basophils) system which ge nerated this result tra nsmitted reference range : <=1.0. The reference r eileen was not used to int erpret this result as normal/abnormal . [facility] ArlingtonIhgzigeKMRJZGVDII3998-31-50 15:31:00 Test Item Value Reference Range Interpretation Comments Neutrophils # (test code = Neutrophils 3.9 1.5-8.1 #) [facility] ArlingtonGzyhwzyBAWJEBCDUJ5881-00-65 15:31:00 Test Item Value Reference Range Interpretation Comments Lymphocytes # (test code = Lymphocytes 0.6 1.0-5.5 #) [facility] ArlingtonYvzxxysHUKLHBJBIA9372-67-30 15:31:00 Test Item Value Reference Range Interpretation Comments Monocytes # (test code 0.6 See_Comment [Aut omated message] The = Monocytes #) system which generated this result tra nsmitted reference range : <=0.8. The reference r eileen was not used to int erpret this result as normal/abnormal . [facility] ArlingtonRdnpifhYOASHZBOVK3459-07-97 15:31:00 Test Item Value Reference Range Interpretation Comments Eosinophils # (test code 0.1 See_Comment [A utomated message] The = Eosinophils #) system whic h generated this result tra nsmitted reference range : <=0.5. The reference r eileen was not used to int erpret this result as normal/abnormal . [facility] [employer] [facility] [id number] 15:31:00 Test Item Value Reference Range Interpretation Comments ABO/Rh (test code = ABO/Rh) B POS [facility] [id number] 15:31:00 Test Item Value Reference Range Interpretation Comments Antibody Scrn (test Negative (05/17/20 code = Antibody Scrn) 9:31 AM) [facility] [id number] 15:31:00 Test Item Value Reference Range Interpretation Comments Glucose Lvl (test code = Glucose Lvl) 91 70-99 [facility] [id number] 15:31:00 Test Item Value Reference Range Interpretation Comments BUN (test code = BUN) 29 7-22 [facility] [id number] 15:31:00 Test Item Value Reference Range Interpretation Comments Creatinine Lvl (test code = Creatinine 5.79 0.50-1.40 Lvl) [facility] [id number] 15:31:00 Test Item Value Reference Range Interpretation Comments Sodium Lvl (test code = Sodium Lvl) 141 135-145 [facility]2020-11-24 15:31:00 Test Item Value Reference Range Interpretation Comments Potassium Lvl (test code = Potassium 3.9 3.5-5.1 Lvl) [facility]2020-11-24 15:31:00 Test Item Value Reference Range Interpretation Comments Chloride Lvl (test code = Chloride Lvl) 108 95-109 [facility]2020-11-24 15:31:00 Test Item Value Reference Range Interpretation Comments CO2 (test code = CO2) 27 24-32 [place] 546840-11-24 15:31:00 Test Item Value Reference Range Interpretation Comments Calcium Lvl (test code = Calcium Lvl) 9.9 8.5-10.5 [facility]2020-11-24 15:31:00 Test Item Value Reference Range Interpretation Comments AGAP (test code = AGAP) 9.9 10.0-20.0 [facility]2020-11-24 15:31:00 Test Item Value Reference Range Interpretation Comments eGFR (test code = eGFR) 7 [facility] ArlingtonWlbbqsgSLSOBMTZLW6495-74-64 15:31:00 Test Item Value Reference Range Interpretation Comments WBC (test code = WBC) 5.2 3.7-10.4 [facility] ArlingtonSljmhnxVHVGJITGGC4440-60-58 15:31:00 Test Item Value Reference Range Interpretation Comments RBC (test code = RBC) 3.61 4.20-5.40 [facility] ArlingtonYmvfuunWPWCRSSZHN2346-70-52 15:31:00 Test Item Value Reference Range Interpretation Comments Hgb (test code = Hgb) 10.4 12.0-16.0 [place] 579810-11-24 15:31:00 Test Item Value Reference Range Interpretation Comments Hct (test code = Hct) 33.1 36.0-48.0 [place] 579810-11-24 15:31:00 Test Item Value Reference Range Interpretation Comments MCV (test code = MCV) 91.8 80.0-98.0 [place] 579810-11-24 15:31:00 Test Item Value Reference Range Interpretation Comments MCH (test code = MCH) 28.8 pg 27.0-31.0 [facility] ArlingtonErtgwyqMIYLQWHCDG1076-34-35 15:31:00 Test Item Value Reference Range Interpretation Comments MCHC (test code = MCHC) 31.3 32.0-36.0 [facility] ArlingtonAtkbqmxVCZDWXRRTL3541-16-57 15:31:00 Test Item Value Reference Range Interpretation Comments RDW (test code = RDW) 15.9 11.5-14.5 [facility] ArlingtonHabiejpMZKAXGGLPD5544-85-83 15:31:00 Test Item Value Reference Range Interpretation Comments Platelet (test code = Platelet) 180 133-450 [facility] ArlingtonZxquelzHTRVSCMZQB9273-88-93 15:31:00 Test Item Value Reference Range Interpretation Comments MPV (test code = MPV) 9.2 7.4-10.4 [facility] ArlingtonAvhxqnqQIRXNXSJNE8435-02-56 15:31:00 Test Item Value Reference Range Interpretation Comments PT (test code = PT) 14.8 s 12.0-14.7 [facility] ArlingtonLtleahvLCGHQPLYWW2215-75-05 15:31:00 Test Item Value Reference Range Interpretation Comments INR (test code = INR) 1.15 1 0.85-1.17 [facility] ArlingtonUvngpqpLEXIOLNCBK9003-50-75 15:31:00 Test Item Value Reference Range Interpretation Comments PTT (test code = PTT) 29.5 s 22.9-35.8 [facility] ArlingtonXgxtsjiTYGVNWALVG4630-36-23 15:31:00 Test Item Value Reference Range Interpretation Comments Segs (test code = Segs) 74.6 45.0-75.0 [facility] ArlingtonTphogxxAFVFHUMKDU1608-94-06 15:31:00 Test Item Value Reference Range Interpretation Comments Lymphocytes (test code = Lymphocytes) 11.0 20.0-40.0 [place] 579810-11-24 15:31:00 Test Item Value Reference Range Interpretation Comments Monocytes (test code = Monocytes) 11.0 2.0-12.0 [place] 579810-11-24 15:31:00 Test Item Value Reference Range Interpretation Comments Eosinophils (test code = 2.6 See_Comment [A utomated message] The Eosinophils) system which ge nerated this result tra nsmitted reference range : <=4.0. The reference r eileen was not used to int erpret this result as normal/abnormal . [facility] ArlingtonAcxykcdSXSPSZWIGS8548-13-00 15:31:00 Test Item Value Reference Range Interpretation Comments Basophils (test code = 0.8 See_Comment [Aut omated message] The Basophils) system which ge nerated this result tra nsmitted reference range : <=1.0. The reference r eileen was not used to int erpret this result as normal/abnormal . [facility] ArlingtonKbmpxxgCBRWLAKETM0834-04-04 15:31:00 Test Item Value Reference Range Interpretation Comments Neutrophils # (test code = Neutrophils 3.9 1.5-8.1 #) [facility] ArlingtonXhainynHFHKIMHNGP3459-80-03 15:31:00 Test Item Value Reference Range Interpretation Comments Lymphocytes # (test code = Lymphocytes 0.6 1.0-5.5 #) [facility] ArlingtonHvlqaijEGFDUEVKTT7564-30-37 15:31:00 Test Item Value Reference Range Interpretation Comments Monocytes # (test code 0.6 See_Comment [Aut omated message] The = Monocytes #) system which generated this result tra nsmitted reference range : <=0.8. The reference r eileen was not used to int erpret this result as normal/abnormal . [facility] ArlingtonKiyqrwwWQJLEJGZXY3477-68-55 15:31:00 Test Item Value Reference Range Interpretation Comments Eosinophils # (test code 0.1 See_Comment [A utomated message] The = Eosinophils #) system whic h generated this result tra nsmitted reference range : <=0.5. The reference r eileen was not used to int erpret this result as normal/abnormal . [facility] Hospital[facility] [employer] [facility] ORMBOFX8807-45-06 15:31:00 Test Item Value Reference Range Interpretation Comments ABO/Rh (test code = ABO/Rh) B [facility] [id number] 15:31:00 Test Item Value Reference Range Interpretation Comments Antibody Scrn (test Negative (05/17/20 code = Antibody Scrn) 9:31 AM) [facility] [id number] 15:31:00 Test Item Value Reference Range Interpretation Comments Glucose Lvl (test code = Glucose Lvl) 91 70-99 [facility] UVCXZ3261-63-25 15:31:00 Test Item Value Reference Range Interpretation Comments BUN (test code = BUN) 29 7-22 [facility] [id number] 15:31:00 Test Item Value Reference Range Interpretation Comments Creatinine Lvl (test code = Creatinine 5.79 0.50-1.40 Lvl) [facility]2020-11-24 15:31:00 Test Item Value Reference Range Interpretation Comments Sodium Lvl (test code = Sodium Lvl) 141 135-145 [facility]2020-11-24 15:31:00 Test Item Value Reference Range Interpretation Comments Potassium Lvl (test code = Potassium 3.9 3.5-5.1 Lvl) [place] 546840-11-24 15:31:00 Test Item Value Reference Range Interpretation Comments Chloride Lvl (test code = Chloride Lvl) 108 95-109 [place] 546840-11-24 15:31:00 Test Item Value Reference Range Interpretation Comments CO2 (test code = CO2) 27 24-32 [place] 546840-11-24 15:31:00 Test Item Value Reference Range Interpretation Comments Calcium Lvl (test code = Calcium Lvl) 9.9 8.5-10.5 [facility]2020-11-24 15:31:00 Test Item Value Reference Range Interpretation Comments AGAP (test code = AGAP) 9.9 10.0-20.0 [place] 546840-11-24 15:31:00 Test Item Value Reference Range Interpretation Comments eGFR (test code = eGFR) 7 [facility] ArlingtonMseaudfOLRXNPYHVV0593-31-54 15:31:00 Test Item Value Reference Range Interpretation Comments WBC (test code = WBC) 5.2 3.7-10.4 [place] 579810-11-24 15:31:00 Test Item Value Reference Range Interpretation Comments RBC (test code = RBC) 3.61 4.20-5.40 [place] 579810-11-24 15:31:00 Test Item Value Reference Range Interpretation Comments Hgb (test code = Hgb) 10.4 12.0-16.0 [place] 579810-11-24 15:31:00 Test Item Value Reference Range Interpretation Comments Hct (test code = Hct) 33.1 36.0-48.0 [place] 579810-11-24 15:31:00 Test Item Value Reference Range Interpretation Comments MCV (test code = MCV) 91.8 80.0-98.0 [place] 579810-11-24 15:31:00 Test Item Value Reference Range Interpretation Comments MCH (test code = MCH) 28.8 pg 27.0-31.0 [facility] ArlingtonTycehsxQRNPKAOYNX8399-61-87 15:31:00 Test Item Value Reference Range Interpretation Comments MCHC (test code = MCHC) 31.3 32.0-36.0 [facility] ArlingtonJpzoqloSAAHFMCIBE0488-79-13 15:31:00 Test Item Value Reference Range Interpretation Comments RDW (test code = RDW) 15.9 11.5-14.5 [facility] ArlingtonPdfhxckJWQBAIDLVT4569-87-73 15:31:00 Test Item Value Reference Range Interpretation Comments Platelet (test code = Platelet) 180 133-450 [facility] ArlingtonHoysivqRCEMCAECKM8157-34-83 15:31:00 Test Item Value Reference Range Interpretation Comments MPV (test code = MPV) 9.2 7.4-10.4 [facility] ArlingtonBdktajsFEQJDVJWGQ2497-62-22 15:31:00 Test Item Value Reference Range Interpretation Comments PT (test code = PT) 14.8 s 12.0-14.7 [facility] ArlingtonNqqutltLNOJCGDJZI1099-94-96 15:31:00 Test Item Value Reference Range Interpretation Comments INR (test code = INR) 1.15 1 0.85-1.17 [facility] ArlingtonFwhbpofFVRQVUDVGO5159-59-84 15:31:00 Test Item Value Reference Range Interpretation Comments PTT (test code = PTT) 29.5 s 22.9-35.8 [facility] ArlingtonXgfxaemYBGIATHDYL8833-12-25 15:31:00 Test Item Value Reference Range Interpretation Comments Segs (test code = Segs) 74.6 45.0-75.0 [facility] ArlingtonDqiboleCNBODNDJTI7186-26-68 15:31:00 Test Item Value Reference Range Interpretation Comments Lymphocytes (test code = Lymphocytes) 11.0 20.0-40.0 [facility] ArlingtonMygrpyaXCQAEPPWDU2176-65-09 15:31:00 Test Item Value Reference Range Interpretation Comments Monocytes (test code = Monocytes) 11.0 2.0-12.0 [facility] ArlingtonUnpyxasXTHUTKZADE8137-51-17 15:31:00 Test Item Value Reference Range Interpretation Comments Eosinophils (test code = 2.6 See_Comment [A utomated message] The Eosinophils) system which ge nerated this result tra nsmitted reference range : <=4.0. The reference r eileen was not used to int erpret this result as normal/abnormal . [facility] SouthYisjstcURVVFFKOKO6179-66-75 15:31:00 Test Item Value Reference Range Interpretation Comments Basophils (test code = 0.8 See_Comment [Aut omated message] The Basophils) system which ge nerated this result tra nsmitted reference range : <=1.0. The reference r eileen was not used to int erpret this result as normal/abnormal . [facility]FitvmbnNACQDELZMK2897-21-97 15:31:00 Test Item Value Reference Range Interpretation Comments Neutrophils # (test code = Neutrophils 3.9 1.5-8.1 #) [facility] ArlingtonJfislchBGAEHKBLVR3540-81-79 15:31:00 Test Item Value Reference Range Interpretation Comments Lymphocytes # (test code = Lymphocytes 0.6 1.0-5.5 #) [facility] ArlingtonNibitbaFPPBBGDZDQ4019-71-42 15:31:00 Test Item Value Reference Range Interpretation Comments Monocytes # (test code 0.6 See_Comment [Aut omated message] The = Monocytes #) system which generated this result tra nsmitted reference range : <=0.8. The reference r eileen was not used to int erpret this result as normal/abnormal . [facility]BiwubqpFGVPDUITZC5703-63-93 15:31:00 Test Item Value Reference Range Interpretation Comments Eosinophils # (test code 0.1 See_Comment [A utomated message] The = Eosinophils #) system whic h generated this result tra nsmitted reference range : <=0.5. The reference r eileen was not used to int erpret this result as normal/abnormal . [facility] YKXFDHH9610-62-77 15:31:00 Test Item Value Reference Range Interpretation Comments ABO/Rh (test code = ABO/Rh) B POS [facility] UVBGLZC9132-89-52 15:31:00 Test Item Value Reference Range Interpretation Comments Antibody Scrn (test Negative (05/17/20 code = Antibody Scrn) 9:31 AM) [facility] [id number] 15:31:00 Test Item Value Reference Range Interpretation Comments Glucose Lvl (test code = Glucose Lvl) 91 70-99 [facility] VGQGE3508-09-93 15:31:00 Test Item Value Reference Range Interpretation Comments BUN (test code = BUN) 29 7-22 [facility]2020-11-24 15:31:00 Test Item Value Reference Range Interpretation Comments Creatinine Lvl (test code = Creatinine 5.79 0.50-1.40 Lvl) [facility]2020-11-24 15:31:00 Test Item Value Reference Range Interpretation Comments Sodium Lvl (test code = Sodium Lvl) 141 135-145 [place] 546840-11-24 15:31:00 Test Item Value Reference Range Interpretation Comments Potassium Lvl (test code = Potassium 3.9 3.5-5.1 Lvl) [facility]2020-11-24 15:31:00 Test Item Value Reference Range Interpretation Comments Chloride Lvl (test code = Chloride Lvl) 108 95-109 [facility]2020-11-24 15:31:00 Test Item Value Reference Range Interpretation Comments CO2 (test code = CO2) 27 24-32 [place] 546840-11-24 15:31:00 Test Item Value Reference Range Interpretation Comments Calcium Lvl (test code = Calcium Lvl) 9.9 8.5-10.5 [place] 546840-11-24 15:31:00 Test Item Value Reference Range Interpretation Comments AGAP (test code = AGAP) 9.9 10.0-20.0 [place] 546840-11-24 15:31:00 Test Item Value Reference Range Interpretation Comments eGFR (test code = eGFR) 7 [facility] ArlingtonXyrpftbHZZFMDUVTL8554-88-19 15:31:00 Test Item Value Reference Range Interpretation Comments WBC (test code = WBC) 5.2 3.7-10.4 [place] 579810-11-24 15:31:00 Test Item Value Reference Range Interpretation Comments RBC (test code = RBC) 3.61 4.20-5.40 [place] 579810-11-24 15:31:00 Test Item Value Reference Range Interpretation Comments Hgb (test code = Hgb) 10.4 12.0-16.0 [place] 579810-11-24 15:31:00 Test Item Value Reference Range Interpretation Comments Hct (test code = Hct) 33.1 36.0-48.0 [place] 579810-11-24 15:31:00 Test Item Value Reference Range Interpretation Comments MCV (test code = MCV) 91.8 80.0-98.0 [facility]sjyybMHUORRAXRQ2565-45-61 15:31:00 Test Item Value Reference Range Interpretation Comments MCH (test code = MCH) 28.8 pg 27.0-31.0 [facility] ArlingtonQbnhzrrBHFJONDLEC1198-19-20 15:31:00 Test Item Value Reference Range Interpretation Comments MCHC (test code = MCHC) 31.3 32.0-36.0 [facility]aultIaaeimkSWMXZBQHSW3597-57-34 15:31:00 Test Item Value Reference Range Interpretation Comments RDW (test code = RDW) 15.9 11.5-14.5 [facility] ArlingtonCooaxobCUGRHHVUNS4417-46-53 15:31:00 Test Item Value Reference Range Interpretation Comments Platelet (test code = Platelet) 180 133-450 [facility] ArlingtonRnrxrteDCVOXOXLXG9683-86-52 15:31:00 Test Item Value Reference Range Interpretation Comments MPV (test code = MPV) 9.2 7.4-10.4 [facility] ArlingtonWzzvsscTYNVRRCVHC8526-23-11 15:31:00 Test Item Value Reference Range Interpretation Comments PT (test code = PT) 14.8 s 12.0-14.7 [facility] ArlingtonYreutieUZIHBFMLWR8494-67-52 15:31:00 Test Item Value Reference Range Interpretation Comments INR (test code = INR) 1.15 1 0.85-1.17 [facility] ArlingtonTrihisdKCZQDDQPSG2651-34-56 15:31:00 Test Item Value Reference Range Interpretation Comments PTT (test code = PTT) 29.5 s 22.9-35.8 [facility] ArlingtonAtkuoojWGJKTZOIMT2214-56-26 15:31:00 Test Item Value Reference Range Interpretation Comments Segs (test code = Segs) 74.6 45.0-75.0 [facility] ArlingtonYmzlukgNTGJIXDJZL2135-27-17 15:31:00 Test Item Value Reference Range Interpretation Comments Lymphocytes (test code = Lymphocytes) 11.0 20.0-40.0 [facility] ArlingtonEazumrzDSRXKERGTQ8384-02-48 15:31:00 Test Item Value Reference Range Interpretation Comments Monocytes (test code = Monocytes) 11.0 2.0-12.0 [facility] ArlingtonLkcnmptYPGKZWKVLF1473-14-46 15:31:00 Test Item Value Reference Range Interpretation Comments Eosinophils (test code = 2.6 See_Comment [A utomated message] The Eosinophils) system which ge nerated this result tra nsmitted reference range : <=4.0. The reference r eileen was not used to int erpret this result as normal/abnormal . [facility] ArlingtonJdklaimSHYXDZNBZY0910-12-12 15:31:00 Test Item Value Reference Range Interpretation Comments Basophils (test code = 0.8 See_Comment [Aut omated message] The Basophils) system which ge nerated this result tra nsmitted reference range : <=1.0. The reference r eileen was not used to int erpret this result as normal/abnormal . [facility] ArlingtonOfrojckJIACLKIRVK3336-46-21 15:31:00 Test Item Value Reference Range Interpretation Comments Neutrophils # (test code = Neutrophils 3.9 1.5-8.1 #) [facility] ArlingtonYblvtqtIFRXYECHML4709-40-75 15:31:00 Test Item Value Reference Range Interpretation Comments Lymphocytes # (test code = Lymphocytes 0.6 1.0-5.5 #) [facility] ArlingtonOiijclqTGLSHAXXUF6040-45-29 15:31:00 Test Item Value Reference Range Interpretation Comments Monocytes # (test code 0.6 See_Comment [Aut omated message] The = Monocytes #) system which generated this result tra nsmitted reference range : <=0.8. The reference r eileen was not used to int erpret this result as normal/abnormal . [facility] ArlingtonCanlhqdHSJPZOPYYI9376-36-07 15:31:00 Test Item Value Reference Range Interpretation Comments Eosinophils # (test code 0.1 See_Comment [A utomated message] The = Eosinophils #) system [facility] generated this result tra nsmitted reference range : <=0.5. The reference r eileen was not used to int erpret this result as normal/abnormal . [facility]PhjrjvoCSBJCVVRFD7184-23-40 14:47:00 Test Item Value Reference Range Interpretation Comments Coronavirus (COVID-19) Not Detected KAYLEE (test code = (05/17/20 8:47 AM) Coronavirus (COVID-19) KAYLEE) [facility] SouthGyqbmqoQKGYCGFRZJ8215-01-02 14:47:00 Test Item Value Reference Range Interpretation Comments Coronavirus (COVID-19) Not Detected KAYLEE (test code = (05/17/20 8:47 AM) Coronavirus (COVID-19) KYALEE) [facility] [facility]UG4358[facility] 14:47:00 Test Item Value Reference Range Interpretation Comments Coronavirus (COVID-19) Not Detected KAYLEE (test code = (05/17/20 8:47 AM) Coronavirus (COVID-19) KAYLEE) [facility]ojjgqxSFGDHADQLT8335-35-77 14:47:00 Test Item Value Reference Range Interpretation Comments Coronavirus (COVID-19) Not Detected KAYLEE (test code = (05/17/20 8:47 AM) Coronavirus (COVID-19) KAYLEE) [facility] SouthFflxhopFCDRCTPNFM5591-07-98 14:47:00 Test Item Value Reference Range Interpretation Comments Coronavirus (COVID-19) Not Detected KAYLEE (test code = (05/17/20 8:47 AM) Coronavirus (COVID-19) KAYLEE) [facility]2020-10-16 10:29:00 Test Item Value Reference Range Interpretation Comments Glucose Lvl (test code = Glucose Lvl) 91 70-99 [facility]2020-10-16 10:29:00 Test Item Value Reference Range Interpretation Comments BUN (test code = BUN) 44 7-22 [facility]2020-10-16 10:29:00 Test Item Value Reference Range Interpretation Comments Creatinine Lvl (test code = Creatinine 8.12 0.50-1.40 Lvl) [facility]2020-10-16 10:29:00 Test Item Value Reference Range Interpretation Comments Sodium Lvl (test code = Sodium Lvl) 139 135-145 [facility]2020-10-16 10:29:00 Test Item Value Reference Range Interpretation Comments Potassium Lvl (test code = Potassium 4.2 3.5-5.1 Lvl) [facility]2020-10-16 10:29:00 Test Item Value Reference Range Interpretation Comments Chloride Lvl (test code = Chloride Lvl) 107 95-109 [facility]2020-10-16 10:29:00 Test Item Value Reference Range Interpretation Comments CO2 (test code = CO2) 24 24-32 [facility]2020-10-16 10:29:00 Test Item Value Reference Range Interpretation Comments Calcium Lvl (test code = Calcium Lvl) 8.9 8.5-10.5 [facility]2020-10-16 10:29:00 Test Item Value Reference Range Interpretation Comments AGAP (test code = AGAP) 12.2 10.0-20.0 [facility] JWYRK8690-35-83 10:29:00 Test Item Value Reference Range Interpretation Comments eGFR (test code = eGFR) 5 [facility]XyedhqrYQBAFCOEHS1135-40-80 10:29:00 Test Item Value Reference Range Interpretation Comments PT (test code = PT) 15.6 s 12.0-14.7 [facility] ArlingtonOqigfnkSWCTUNHSHW3563-60-76 10:29:00 Test Item Value Reference Range Interpretation Comments INR (test code = INR) 1.23 1 0.85-1.17 [facility] ArlingtonLpvsjsjZGQFJABSQA8845-18-77 10:29:00 Test Item Value Reference Range Interpretation Comments PTT (test code = PTT) 34.9 s 22.9-35.8 [facility] ArlingtonXfeelbnGDTKZQMKBQ3095-08-33 10:29:00 Test Item Value Reference Range Interpretation Comments WBC (test code = WBC) 5.0 3.7-10.4 [facility] ArlingtonOcahxenFDUTRZUHPD5955-36-77 10:29:00 Test Item Value Reference Range Interpretation Comments RBC (test code = RBC) 3.39 4.20-5.40 [facility] ArlingtonDqnbnrrSJANPELUZO5772-10-27 10:29:00 Test Item Value Reference Range Interpretation Comments Hgb (test code = Hgb) 9.8 12.0-16.0 [facility] ArlingtonVfguzvhGNPHLYUTVK6882-03-52 10:29:00 Test Item Value Reference Range Interpretation Comments Hct (test code = Hct) 30.6 36.0-48.0 [place] 579810-10-16 10:29:00 Test Item Value Reference Range Interpretation Comments MCV (test code = MCV) 90.2 80.0-98.0 [place] [address]-10-16 10:29:00 Test Item Value Reference Range Interpretation Comments MCH (test code = MCH) 29.0 pg 27.0-31.0 [facility] ArlingtonKlwhkeeTUNKQPGMMF5875-20-44 10:29:00 Test Item Value Reference Range Interpretation Comments MCHC (test code = MCHC) 32.2 32.0-36.0 [facility] ArlingtonVnelceyDKZUYBSLBE8273-91-10 10:29:00 Test Item Value Reference Range Interpretation Comments RDW (test code = RDW) 15.4 11.5-14.5 [facility] ArlingtonLwbhyidEWBBEAKLWL9429-49-14 10:29:00 Test Item Value Reference Range Interpretation Comments Platelet (test code = Platelet) 109 133-450 [facility] ArlingtonIbkqgcnRIQTVGOMND9917-27-55 10:29:00 Test Item Value Reference Range Interpretation Comments MPV (test code = MPV) 9.8 7.4-10.4 [facility] ArlingtonJiisezcSKWXQDREQO8034-56-61 10:29:00 Test Item Value Reference Range Interpretation Comments Segs (test code = Segs) 62.0 45.0-75.0 [facility] ArlingtonTatnnnuQFSSHBLEPW9546-65-45 10:29:00 Test Item Value Reference Range Interpretation Comments Lymphocytes (test code = Lymphocytes) 12.7 20.0-40.0 [facility] ArlingtonLsyvcvoEAQXRSXXLM5133-43-39 10:29:00 Test Item Value Reference Range Interpretation Comments Monocytes (test code = Monocytes) 19.5 2.0-12.0 [facility] ArlingtonZklchieZKPOJBZGVH9793-72-47 10:29:00 Test Item Value Reference Range Interpretation Comments Eosinophils (test code = 5.1 See_Comment [A utomated message] The Eosinophils) system which ge nerated this result tra nsmitted reference range : <=4.0. The reference r eileen was not used to int erpret this result as normal/abnormal . [facility] ArlingtonUophcecCIVZZCOVIV0130-78-54 10:29:00 Test Item Value Reference Range Interpretation Comments Basophils (test code = 0.7 See_Comment [Aut omated message] The Basophils) system which ge nerated this result tra nsmitted reference range : <=1.0. The reference r eileen was not used to int erpret this result as normal/abnormal . [facility] ArlingtonFxzbigeCMNOYCIKPU9166-77-63 10:29:00 Test Item Value Reference Range Interpretation Comments Neutrophils # (test code = Neutrophils 3.1 1.5-8.1 #) [facility] ArlingtonZlkrxoqPWGVGPETIQ2362-98-93 10:29:00 Test Item Value Reference Range Interpretation Comments Lymphocytes # (test code = Lymphocytes 0.6 1.0-5.5 #) [facility] ArlingtonIvntrmmUDVGQPCHZE1387-72-13 10:29:00 Test Item Value Reference Range Interpretation Comments Monocytes # (test code 1.0 See_Comment [Aut omated message] The = Monocytes #) system which generated this result tra nsmitted reference range : <=0.8. The reference r eileen was not used to int erpret this result as normal/abnormal . [facility]QxffihqSFPTXUNAQX1485-92-71 10:29:00 Test Item Value Reference Range Interpretation Comments Eosinophils # (test code 0.3 See_Comment [A utomated message] The = Eosinophils #) system whic h generated this result tra nsmitted reference range : <=0.5. The reference r eileen was not used to int erpret this result as normal/abnormal . [facility]VplpiecCBXVAZCAQM2245-96-20 10:29:00 Test Item Value Reference Range Interpretation Comments Hep Bs Ag (test code Negative *NA*(04/08/20 = Hep Bs Ag) 5:29 AM) [facility] ELGBV5229-49-66 10:29:00 Test Item Value Reference Range Interpretation Comments Glucose Lvl (test code = Glucose Lvl) 91 70-99 [facility] SSFQQ6711-78-24 10:29:00 Test Item Value Reference Range Interpretation Comments BUN (test code = BUN) 44 7-22 [facility] KARIW8884-78-26 10:29:00 Test Item Value Reference Range Interpretation Comments Creatinine Lvl (test code = Creatinine 8.12 0.50-1.40 Lvl) [facility] QRMCV9081-84-18 10:29:00 Test Item Value Reference Range Interpretation Comments Sodium Lvl (test code = Sodium Lvl) 139 135-145 [facility] QIRTL7715-18-86 10:29:00 Test Item Value Reference Range Interpretation Comments Potassium Lvl (test code = Potassium 4.2 3.5-5.1 Lvl) [facility] [id number] 10:29:00 Test Item Value Reference Range Interpretation Comments Chloride Lvl (test code = Chloride Lvl) 107 95-109 [facility] DAEWL8336-79-19 10:29:00 Test Item Value Reference Range Interpretation Comments CO2 (test code = CO2) 24 24-32 [facility] KCDRA4064-50-45 10:29:00 Test Item Value Reference Range Interpretation Comments Calcium Lvl (test code = Calcium Lvl) 8.9 8.5-10.5 [facility] PQHIO5709-79-32 10:29:00 Test Item Value Reference Range Interpretation Comments AGAP (test code = AGAP) 12.2 10.0-20.0 [facility]2020-10-16 10:29:00 Test Item Value Reference Range Interpretation Comments eGFR (test code = eGFR) 5 [facility] ArlingtonRcvgcwsWMMEHLJMZV2456-65-74 10:29:00 Test Item Value Reference Range Interpretation Comments PT (test code = PT) 15.6 s 12.0-14.7 [facility] ArlingtonUgwqsvgPWXTNQLHYQ0783-28-64 10:29:00 Test Item Value Reference Range Interpretation Comments INR (test code = INR) 1.23 1 0.85-1.17 [facility] ArlingtonGbivfovCFNYYVZYWS2783-63-10 10:29:00 Test Item Value Reference Range Interpretation Comments PTT (test code = PTT) 34.9 s 22.9-35.8 [facility] ArlingtonScjemuvJPANKZWULY1323-75-63 10:29:00 Test Item Value Reference Range Interpretation Comments WBC (test code = WBC) 5.0 3.7-10.4 [facility] ArlingtonRfajvdsMYQSQESFFA8994-44-55 10:29:00 Test Item Value Reference Range Interpretation Comments RBC (test code = RBC) 3.39 4.20-5.40 [facility] ArlingtonYflvzbyRGRUAEPCRG2820-65-42 10:29:00 Test Item Value Reference Range Interpretation Comments Hgb (test code = Hgb) 9.8 12.0-16.0 [facility] ArlingtonSgrfjuoXQRZFDZZDA1622-14-11 10:29:00 Test Item Value Reference Range Interpretation Comments Hct (test code = Hct) 30.6 36.0-48.0 [facility] ArlingtonEahktplRMUCHPZKRV5186-37-63 10:29:00 Test Item Value Reference Range Interpretation Comments MCV (test code = MCV) 90.2 80.0-98.0 [place] [address]-10-16 10:29:00 Test Item Value Reference Range Interpretation Comments MCH (test code = MCH) 29.0 pg 27.0-31.0 [place] [address]-10-16 10:29:00 Test Item Value Reference Range Interpretation Comments MCHC (test code = MCHC) 32.2 32.0-36.0 [place] 579810-10-16 10:29:00 Test Item Value Reference Range Interpretation Comments RDW (test code = RDW) 15.4 11.5-14.5 [facility] ArlingtonTpzkklmQPAECCMDOX1786-93-88 10:29:00 Test Item Value Reference Range Interpretation Comments Platelet (test code = Platelet) 109 133-450 [facility] ArlingtonIxyqhfvHYDONYOPKF0675-87-34 10:29:00 Test Item Value Reference Range Interpretation Comments MPV (test code = MPV) 9.8 7.4-10.4 [facility] ArlingtonZefvomaVVLZKFLZDH5891-01-73 10:29:00 Test Item Value Reference Range Interpretation Comments Segs (test code = Segs) 62.0 45.0-75.0 [facility] ArlingtonOcgbctbVYIUEJLSUW3330-38-98 10:29:00 Test Item Value Reference Range Interpretation Comments Lymphocytes (test code = Lymphocytes) 12.7 20.0-40.0 [facility] ArlingtonDwfxllkWJJLLLCULL6595-30-89 10:29:00 Test Item Value Reference Range Interpretation Comments Monocytes (test code = Monocytes) 19.5 2.0-12.0 [facility] ArlingtonEyycbgaKWKJMYHTDB6584-14-75 10:29:00 Test Item Value Reference Range Interpretation Comments Eosinophils (test code = 5.1 See_Comment [A utomated message] The Eosinophils) system which ge nerated this result tra nsmitted reference range : <=4.0. The reference r eileen was not used to int erpret this result as normal/abnormal . [facility] ArlingtonCfbfoatQOWUKQLJHE2967-24-04 10:29:00 Test Item Value Reference Range Interpretation Comments Basophils (test code = 0.7 See_Comment [Aut omated message] The Basophils) system which ge nerated this result tra nsmitted reference range : <=1.0. The reference r eileen was not used to int erpret this result as normal/abnormal . [facility] ArlingtonOcaizijEQJNXVOLVC3827-69-86 10:29:00 Test Item Value Reference Range Interpretation Comments Neutrophils # (test code = Neutrophils 3.1 1.5-8.1 #) [facility] ArlingtonKuifmfyZCKOAOZQFN1962-11-17 10:29:00 Test Item Value Reference Range Interpretation Comments Lymphocytes # (test code = Lymphocytes 0.6 1.0-5.5 #) [facility] ArlingtonXtgupatCEUAICVAAS1520-34-73 10:29:00 Test Item Value Reference Range Interpretation Comments Monocytes # (test code 1.0 See_Comment [Aut omated message] The = Monocytes #) system which generated this result tra nsmitted reference range : <=0.8. The reference r eileen was not used to int erpret this result as normal/abnormal . [facility] TylerBakczpeUITBJTZTXY0219-23-65 10:29:00 Test Item Value Reference Range Interpretation Comments Eosinophils # (test code 0.3 See_Comment [A utomated message] The = Eosinophils #) system whic h generated this result tra nsmitted reference range : <=0.5. The reference r eileen was not used to int erpret this result as normal/abnormal . [facility]QunwoymOTOHQTZOJB9271-53-86 10:29:00 Test Item Value Reference Range Interpretation Comments Hep Bs Ag (test code Negative *NA*(04/08/20 = Hep Bs Ag) 5:29 AM) [facility]2020-10-16 10:29:00 Test Item Value Reference Range Interpretation Comments Glucose Lvl (test code = Glucose Lvl) 91 70-99 [facility]2020-10-16 10:29:00 Test Item Value Reference Range Interpretation Comments BUN (test code = BUN) 44 7-22 [facility]2020-10-16 10:29:00 Test Item Value Reference Range Interpretation Comments Creatinine Lvl (test code = Creatinine 8.12 0.50-1.40 Lvl) [facility]2020-10-16 10:29:00 Test Item Value Reference Range Interpretation Comments Sodium Lvl (test code = Sodium Lvl) 139 135-145 [facility]2020-10-16 10:29:00 Test Item Value Reference Range Interpretation Comments Potassium Lvl (test code = Potassium 4.2 3.5-5.1 Lvl) [facility]2020-10-16 10:29:00 Test Item Value Reference Range Interpretation Comments Chloride Lvl (test code = Chloride Lvl) 107 95-109 [facility]2020-10-16 10:29:00 Test Item Value Reference Range Interpretation Comments CO2 (test code = CO2) 24 24-32 [facility]2020-10-16 10:29:00 Test Item Value Reference Range Interpretation Comments Calcium Lvl (test code = Calcium Lvl) 8.9 8.5-10.5 [facility] PMFKF8612-65-00 10:29:00 Test Item Value Reference Range Interpretation Comments AGAP (test code = AGAP) 12.2 10.0-20.0 [facility]2020-10-16 10:29:00 Test Item Value Reference Range Interpretation Comments eGFR (test code = eGFR) 5 [facility]KlatcmnHZIHIYJVFF0308-58-91 10:29:00 Test Item Value Reference Range Interpretation Comments PT (test code = PT) 15.6 s 12.0-14.7 [facility]aultLilvwmbYAYQGTAYTA2398-52-47 10:29:00 Test Item Value Reference Range Interpretation Comments INR (test code = INR) 1.23 1 0.85-1.17 [facility] ArlingtonXybcthyMFZRSFCEAK2224-44-43 10:29:00 Test Item Value Reference Range Interpretation Comments PTT (test code = PTT) 34.9 s 22.9-35.8 [facility] ArlingtonEimbhxvPJUEKHEIYS6192-54-70 10:29:00 Test Item Value Reference Range Interpretation Comments WBC (test code = WBC) 5.0 3.7-10.4 [facility] ArlingtonErslqvgRQISSUVESH6994-25-31 10:29:00 Test Item Value Reference Range Interpretation Comments RBC (test code = RBC) 3.39 4.20-5.40 [facility] ArlingtonYaakidjNNMTLAJCZT8523-81-94 10:29:00 Test Item Value Reference Range Interpretation Comments Hgb (test code = Hgb) 9.8 12.0-16.0 [facility] ArlingtonNapkfrvOXGRTTOPUE2856-82-54 10:29:00 Test Item Value Reference Range Interpretation Comments Hct (test code = Hct) 30.6 36.0-48.0 [facility] ArlingtonYsuumkvQYGOMPGKFT8720-81-64 10:29:00 Test Item Value Reference Range Interpretation Comments MCV (test code = MCV) 90.2 80.0-98.0 [facility] ArlingtonFsrelxoLBGDXOKTES4418-30-89 10:29:00 Test Item Value Reference Range Interpretation Comments MCH (test code = MCH) 29.0 pg 27.0-31.0 [facility] ArlingtonKymptdqZEYASOFXWM1014-84-54 10:29:00 Test Item Value Reference Range Interpretation Comments MCHC (test code = MCHC) 32.2 32.0-36.0 [facility] ArlingtonImgahjtIBUFIRQBZO4011-90-85 10:29:00 Test Item Value Reference Range Interpretation Comments RDW (test code = RDW) 15.4 11.5-14.5 [facility] ArlingtonIwihpmzCQMVKISFDW5567-31-17 10:29:00 Test Item Value Reference Range Interpretation Comments Platelet (test code = Platelet) 109 133-450 [facility] ArlingtonOwczlnwLAMWMFYPSR4809-81-85 10:29:00 Test Item Value Reference Range Interpretation Comments MPV (test code = MPV) 9.8 7.4-10.4 [facility] ArlingtonNuueoxmEDUZXMCTJO9504-87-05 10:29:00 Test Item Value Reference Range Interpretation Comments Segs (test code = Segs) 62.0 45.0-75.0 [facility] ArlingtonPzdpdwtCRXPVXCONF7808-64-33 10:29:00 Test Item Value Reference Range Interpretation Comments Lymphocytes (test code = Lymphocytes) 12.7 20.0-40.0 [facility] ArlingtonDxmqxivZXTOHJQYGR6852-13-12 10:29:00 Test Item Value Reference Range Interpretation Comments Monocytes (test code = Monocytes) 19.5 2.0-12.0 [facility] ArlingtonNuybnkzKALVQAJESF5412-25-29 10:29:00 Test Item Value Reference Range Interpretation Comments Eosinophils (test code = 5.1 See_Comment [A utomated message] The Eosinophils) system which ge nerated this result tra nsmitted reference range : <=4.0. The reference r eileen was not used to int erpret this result as normal/abnormal . [facility] ArlingtonJsxsgmbGFTHIHYIAI5991-23-23 10:29:00 Test Item Value Reference Range Interpretation Comments Basophils (test code = 0.7 See_Comment [Aut omated message] The Basophils) system which ge nerated this result tra nsmitted reference range : <=1.0. The reference r eileen was not used to int erpret this result as normal/abnormal . [facility] ArlingtonBlbbvrfSGREQZWBKU4699-18-70 10:29:00 Test Item Value Reference Range Interpretation Comments Neutrophils # (test code = Neutrophils 3.1 1.5-8.1 #) [facility] ArlingtonQdihyyyKNFSLBUKOO6167-30-15 10:29:00 Test Item Value Reference Range Interpretation Comments Lymphocytes # (test code = Lymphocytes 0.6 1.0-5.5 #) [facility] ArlingtonEtomowdROPJPKFSEO2635-52-57 10:29:00 Test Item Value Reference Range Interpretation Comments Monocytes # (test code 1.0 See_Comment [Aut omated message] The = Monocytes #) system which generated this result tra nsmitted reference range : <=0.8. The reference r eileen was not used to int erpret this result as normal/abnormal . [facility]KtsarxyFFCLDJRDYI3545-59-16 10:29:00 Test Item Value Reference Range Interpretation Comments Eosinophils # (test code 0.3 See_Comment [A utomated message] The = Eosinophils #) system whic h generated this result tra nsmitted reference range : <=0.5. The reference r eileen was not used to int erpret this result as normal/abnormal . [facility]YrgunjvSRPBSALVAB5086-59-14 10:29:00 Test Item Value Reference Range Interpretation Comments Hep Bs Ag (test code Negative *NA*(04/08/20 = Hep Bs Ag) 5:29 AM) [facility] HZWSC5416-64-20 10:29:00 Test Item Value Reference Range Interpretation Comments Glucose Lvl (test code = Glucose Lvl) 91 70-99 [facility]2020-10-16 10:29:00 Test Item Value Reference Range Interpretation Comments BUN (test code = BUN) 44 7-22 [facility]2020-10-16 10:29:00 Test Item Value Reference Range Interpretation Comments Creatinine Lvl (test code = Creatinine 8.12 0.50-1.40 Lvl) [facility]2020-10-16 10:29:00 Test Item Value Reference Range Interpretation Comments Sodium Lvl (test code = Sodium Lvl) 139 135-145 [facility]2020-10-16 10:29:00 Test Item Value Reference Range Interpretation Comments Potassium Lvl (test code = Potassium 4.2 3.5-5.1 Lvl) [facility] SouthWeStoreSWA[facility] COMMUN[facility] HOSPITALGIWDK6187-20-15 10:29:00 Test Item Value Reference Range Interpretation Comments Chloride Lvl (test code = Chloride Lvl) 107 95-109 [facility] PBZRV1385-21-05 10:29:00 Test Item Value Reference Range Interpretation Comments CO2 (test code = CO2) 24 24-32 [facility]2020-10-16 10:29:00 Test Item Value Reference Range Interpretation Comments Calcium Lvl (test code = Calcium Lvl) 8.9 8.5-10.5 [facility]2020-10-16 10:29:00 Test Item Value Reference Range Interpretation Comments AGAP (test code = AGAP) 12.2 10.0-20.0 [facility] FJSAK0954-08-12 10:29:00 Test Item Value Reference Range Interpretation Comments eGFR (test code = eGFR) 5 [facility]BcyolqxYVELUMZKPJ5890-22-06 10:29:00 Test Item Value Reference Range Interpretation Comments PT (test code = PT) 15.6 s 12.0-14.7 [facility]RbnhneqATTJCTZKTY8254-99-96 10:29:00 Test Item Value Reference Range Interpretation Comments INR (test code = INR) 1.23 1 0.85-1.17 [facility]MvrpgjtDPUNWBJNLB6663-35-24 10:29:00 Test Item Value Reference Range Interpretation Comments PTT (test code = PTT) 34.9 s 22.9-35.8 [facility]aultOuphzwvMVZEYDUGDH5351-75-56 10:29:00 Test Item Value Reference Range Interpretation Comments WBC (test code = WBC) 5.0 3.7-10.4 [facility]aultSlchqryOZHYXPYTYT0063-67-75 10:29:00 Test Item Value Reference Range Interpretation Comments RBC (test code = RBC) 3.39 4.20-5.40 [facility]aultFuwsumwHFXKXKHMUQ2924-41-65 10:29:00 Test Item Value Reference Range Interpretation Comments Hgb (test code = Hgb) 9.8 12.0-16.0 [facility]aultKjtaaeyLZOGXMCWDD6218-06-01 10:29:00 Test Item Value Reference Range Interpretation Comments Hct (test code = Hct) 30.6 36.0-48.0 [facility]aultMzkgndqUCWRGSZUVP2696-26-40 10:29:00 Test Item Value Reference Range Interpretation Comments MCV (test code = MCV) 90.2 80.0-98.0 [facility] SaultTevkabsQABTAXHSZF3078-08-18 10:29:00 Test Item Value Reference Range Interpretation Comments MCH (test code = MCH) 29.0 pg 27.0-31.0 [facility] SaultUzzipawBQYACUMEOW5604-71-32 10:29:00 Test Item Value Reference Range Interpretation Comments MCHC (test code = MCHC) 32.2 32.0-36.0 [facility] SaultNikbbvmHSWGVRTZNV3384-24-97 10:29:00 Test Item Value Reference Range Interpretation Comments RDW (test code = RDW) 15.4 11.5-14.5 [facility] ArlingtonJcxaobzFBVGBQRLWR1647-70-62 10:29:00 Test Item Value Reference Range Interpretation Comments Platelet (test code = Platelet) 109 133-450 [place] 579810-10-16 10:29:00 Test Item Value Reference Range Interpretation Comments MPV (test code = MPV) 9.8 7.4-10.4 [facility] ArlingtonBznyfalDCENSKJUJB3607-42-96 10:29:00 Test Item Value Reference Range Interpretation Comments Segs (test code = Segs) 62.0 45.0-75.0 [facility] ArlingtonPschdmuJWYNSIPLWS4000-63-14 10:29:00 Test Item Value Reference Range Interpretation Comments Lymphocytes (test code = Lymphocytes) 12.7 20.0-40.0 [facility] ArlingtonUylvkunXLJNFLRBCY7960-31-51 10:29:00 Test Item Value Reference Range Interpretation Comments Monocytes (test code = Monocytes) 19.5 2.0-12.0 [facility] ArlingtonKfjboloWFZVGLUSDI1592-35-99 10:29:00 Test Item Value Reference Range Interpretation Comments Eosinophils (test code = 5.1 See_Comment [A utomated message] The Eosinophils) system which ge nerated this result tra nsmitted reference range : <=4.0. The reference r eileen was not used to int erpret this result as normal/abnormal . [facility] ArlingtonBwuivkoFGNVBBVEJL5269-40-88 10:29:00 Test Item Value Reference Range Interpretation Comments Basophils (test code = 0.7 See_Comment [Aut omated message] The Basophils) system which ge nerated this result tra nsmitted reference range : <=1.0. The reference r eileen was not used to int erpret this result as normal/abnormal . [facility] ArlingtonNqdlmerYKCXZBUWCZ3345-92-11 10:29:00 Test Item Value Reference Range Interpretation Comments Neutrophils # (test code = Neutrophils 3.1 1.5-8.1 #) [facility] ArlingtonLvuzsnfOUGUXMBWEF6755-58-59 10:29:00 Test Item Value Reference Range Interpretation Comments Lymphocytes # (test code = Lymphocytes 0.6 1.0-5.5 #) [facility] ArlingtonQxavnqwPFWTLGIDTZ8346-38-35 10:29:00 Test Item Value Reference Range Interpretation Comments Monocytes # (test code 1.0 See_Comment [Aut omated message] The = Monocytes #) system which generated this result tra nsmitted reference range : <=0.8. The reference r eileen was not used to int erpret this result as normal/abnormal . [facility]pNNPI[facility]UKQ6369[facility]-51 10:29:00 Test Item Value Reference Range Interpretation Comments Eosinophils # (test code 0.3 See_Comment [A utomated message] The = Eosinophils #) system whic h generated this result tra nsmitted reference range : <=0.5. The reference r eileen was not used to int erpret this result as normal/abnormal . [facility]AkpihfwFBXNTOATUU4672-64-39 10:29:00 Test Item Value Reference Range Interpretation Comments Hep Bs Ag (test code Negative *NA*(04/08/20 = Hep Bs Ag) 5:29 AM) [facility]2020-10-16 10:29:00 Test Item Value Reference Range Interpretation Comments Glucose Lvl (test code = Glucose Lvl) 91 70-99 [facility]2020-10-16 10:29:00 Test Item Value Reference Range Interpretation Comments BUN (test code = BUN) 44 7-22 [facility]2020-10-16 10:29:00 Test Item Value Reference Range Interpretation Comments Creatinine Lvl (test code = Creatinine 8.12 0.50-1.40 Lvl) [facility]2020-10-16 10:29:00 Test Item Value Reference Range Interpretation Comments Sodium Lvl (test code = Sodium Lvl) 139 135-145 [facility]2020-10-16 10:29:00 Test Item Value Reference Range Interpretation Comments Potassium Lvl (test code = Potassium 4.2 3.5-5.1 Lvl) [facility]2020-10-16 10:29:00 Test Item Value Reference Range Interpretation Comments Chloride Lvl (test code = Chloride Lvl) 107 95-109 [facility]2020-10-16 10:29:00 Test Item Value Reference Range Interpretation Comments CO2 (test code = CO2) 24 24-32 [facility]2020-10-16 10:29:00 Test Item Value Reference Range Interpretation Comments Calcium Lvl (test code = Calcium Lvl) 8.9 8.5-10.5 [facility]2020-10-16 10:29:00 Test Item Value Reference Range Interpretation Comments AGAP (test code = AGAP) 12.2 10.0-20.0 [facility] AHQWN4990-07-35 10:29:00 Test Item Value Reference Range Interpretation Comments eGFR (test code = eGFR) 5 [facility]lmgvavXZIWOTQXTT4882-73-00 10:29:00 Test Item Value Reference Range Interpretation Comments PT (test code = PT) 15.6 s 12.0-14.7 [facility]drsWYDQYUBZPO3464-18-52 10:29:00 Test Item Value Reference Range Interpretation Comments INR (test code = INR) 1.23 1 0.85-1.17 [facility] SouthReosukrXIZDBJNJJO2193-40-37 10:29:00 Test Item Value Reference Range Interpretation Comments PTT (test code = PTT) 34.9 s 22.9-35.8 [facility] SouthNygbwpcEMHGKOZHEW8601-69-90 10:29:00 Test Item Value Reference Range Interpretation Comments WBC (test code = WBC) 5.0 3.7-10.4 [facility]ZcbvfbrIJSISMREFB2877-13-40 10:29:00 Test Item Value Reference Range Interpretation Comments RBC (test code = RBC) 3.39 4.20-5.40 [facility]QfioaiyMBMWYMNTZF5833-77-98 10:29:00 Test Item Value Reference Range Interpretation Comments Hgb (test code = Hgb) 9.8 12.0-16.0 [facility]VpoktzeIZFDTUCCQM7287-66-01 10:29:00 Test Item Value Reference Range Interpretation Comments Hct (test code = Hct) 30.6 36.0-48.0 [facility]EamizrkZHRHRUNPRA5731-84-14 10:29:00 Test Item Value Reference Range Interpretation Comments MCV (test code = MCV) 90.2 80.0-98.0 [facility]XfuzwerZUPGDZHGIE6367-59-85 10:29:00 Test Item Value Reference Range Interpretation Comments MCH (test code = MCH) 29.0 pg 27.0-31.0 [facility]JdgicmqTKWMTKJIVL5959-46-07 10:29:00 Test Item Value Reference Range Interpretation Comments MCHC (test code = MCHC) 32.2 32.0-36.0 [facility]SkpqkgvXKTTMVWMRU8461-23-17 10:29:00 Test Item Value Reference Range Interpretation Comments RDW (test code = RDW) 15.4 11.5-14.5 [facility]PzfoveaBSKUNGEAYM4902-26-49 10:29:00 Test Item Value Reference Range Interpretation Comments Platelet (test code = Platelet) 109 133-450 [facility] ArlingtonRgtlxuyROHFIGDOMB1472-15-65 10:29:00 Test Item Value Reference Range Interpretation Comments MPV (test code = MPV) 9.8 7.4-10.4 [facility] ArlingtonRevyeweEEGMMMKTOY4405-25-31 10:29:00 Test Item Value Reference Range Interpretation Comments Segs (test code = Segs) 62.0 45.0-75.0 [facility] ArlingtonFgykuyiFMZPINILBN3373-18-05 10:29:00 Test Item Value Reference Range Interpretation Comments Lymphocytes (test code = Lymphocytes) 12.7 20.0-40.0 [facility] ArlingtonDtpmdriQQGOTZSFMV6774-75-65 10:29:00 Test Item Value Reference Range Interpretation Comments Monocytes (test code = Monocytes) 19.5 2.0-12.0 [facility] ArlingtonDqjhngtIUEVNCWNEZ8474-57-83 10:29:00 Test Item Value Reference Range Interpretation Comments Eosinophils (test code = 5.1 See_Comment [A utomated message] The Eosinophils) system which ge nerated this result tra nsmitted reference range : <=4.0. The reference r eileen was not used to int erpret this result as normal/abnormal . [facility] ArlingtonBsgmgdzRDZYVCJYTH1223-71-38 10:29:00 Test Item Value Reference Range Interpretation Comments Basophils (test code = 0.7 See_Comment [Aut omated message] The Basophils) system which ge nerated this result tra nsmitted reference range : <=1.0. The reference r eileen was not used to int erpret this result as normal/abnormal . [facility] ArlingtonUziuudhRZRJZBZGFM8990-40-63 10:29:00 Test Item Value Reference Range Interpretation Comments Neutrophils # (test code = Neutrophils 3.1 1.5-8.1 #) [facility] ArlingtonDetyuqgZQKNEMYXMG2088-88-42 10:29:00 Test Item Value Reference Range Interpretation Comments Lymphocytes # (test code = Lymphocytes 0.6 1.0-5.5 #) [facility] ArlingtonSumwvbwHVZNURZFGP6209-97-22 10:29:00 Test Item Value Reference Range Interpretation Comments Monocytes # (test code 1.0 See_Comment [Aut omated message] The = Monocytes #) system which generated this result tra nsmitted reference range : <=0.8. The reference r eileen was not used to int erpret this result as normal/abnormal . [facility]OvttrdyQCKBZJGEQE1394-83-62 10:29:00 Test Item Value Reference Range Interpretation Comments Eosinophils # (test code 0.3 See_Comment [A utomated message] The = Eosinophils #) system whic h generated this result tra nsmitted reference range : <=0.5. The reference r eileen was not used to int erpret this result as normal/abnormal . [facility] TylerRtacmixMUGHTHSTJT3497-15-19 10:29:00 Test Item Value Reference Range Interpretation Comments Hep Bs Ag (test code Negative *NA*(04/08/20 = Hep Bs Ag) 5:29 AM) [place] 546840-10-15 09:49:00 Test Item Value Reference Range Interpretation Comments Glucose Lvl (test code = Glucose Lvl) 110 70-99 [facility]2020-10-15 09:49:00 Test Item Value Reference Range Interpretation Comments BUN (test code = BUN) 41 7-22 [place] [address]-10-15 09:49:00 Test Item Value Reference Range Interpretation Comments Creatinine Lvl (test code = Creatinine 7.28 0.50-1.40 Lvl) [place] 546840-10-15 09:49:00 Test Item Value Reference Range Interpretation Comments Sodium Lvl (test code = Sodium Lvl) 141 135-145 [facility]2020-10-15 09:49:00 Test Item Value Reference Range Interpretation Comments Potassium Lvl (test code = Potassium 4.2 3.5-5.1 Lvl) [place] 546840-10-15 09:49:00 Test Item Value Reference Range Interpretation Comments Chloride Lvl (test code = Chloride Lvl) 108 95-109 [place] 546840-10-15 09:49:00 Test Item Value Reference Range Interpretation Comments CO2 (test code = CO2) 24 24-32 [place] 546840-10-15 09:49:00 Test Item Value Reference Range Interpretation Comments Calcium Lvl (test code = Calcium Lvl) 8.8 8.5-10.5 [facility]2020-10-15 09:49:00 Test Item Value Reference Range Interpretation Comments AGAP (test code = AGAP) 13.2 10.0-20.0 [facility]2020-10-15 09:49:00 Test Item Value Reference Range Interpretation Comments eGFR (test code = eGFR) 6 [facility] ArlingtonPhigxcpPDWVVETAIA2922-08-58 09:49:00 Test Item Value Reference Range Interpretation Comments Segs (test code = Segs) 79.6 45.0-75.0 [facility] ArlingtonTpfstmqVJHUNVPZWH3010-64-55 09:49:00 Test Item Value Reference Range Interpretation Comments Lymphocytes (test code = Lymphocytes) 4.6 20.0-40.0 [facility] ArlingtonAqegliwPGDQWMNRRT7649-85-41 09:49:00 Test Item Value Reference Range Interpretation Comments Monocytes (test code = Monocytes) 13.3 2.0-12.0 [facility] ArlingtonPaueqvuOWXVIVSKPL3196-33-17 09:49:00 Test Item Value Reference Range Interpretation Comments Eosinophils (test code = 1.9 See_Comment [A utomated message] The Eosinophils) system which ge nerated this result tra nsmitted reference range : <=4.0. The reference r eileen was not used to int erpret this result as normal/abnormal . [facility] ArlingtonIxxlthgIPRZKCCEYB7755-83-34 09:49:00 Test Item Value Reference Range Interpretation Comments Basophils (test code = 0.6 See_Comment [Aut omated message] The Basophils) system which ge nerated this result tra nsmitted reference range : <=1.0. The reference r eileen was not used to int erpret this result as normal/abnormal . [facility] ArlingtonDztsnbvCOEPGLWYAJ5925-02-82 09:49:00 Test Item Value Reference Range Interpretation Comments Neutrophils # (test code = Neutrophils 4.9 1.5-8.1 #) [place] [address]-10-15 09:49:00 Test Item Value Reference Range Interpretation Comments Lymphocytes # (test code = Lymphocytes 0.3 1.0-5.5 #) [place] [address]-10-15 09:49:00 Test Item Value Reference Range Interpretation Comments Monocytes # (test code 0.8 See_Comment [Aut omated message] The = Monocytes #) system which generated this result tra nsmitted reference range : <=0.8. The reference r eileen was not used to int erpret this result as normal/abnormal . [place] [address]-10-15 09:49:00 Test Item Value Reference Range Interpretation Comments Eosinophils # (test code 0.1 See_Comment [A utomated message] The = Eosinophils #) system whic h generated this result tra nsmitted reference range : <=0.5. The reference r eileen was not used to int erpret this result as normal/abnormal . [facility] ArlingtonSxtrnweERKUQLNRUB6868-93-56 09:49:00 Test Item Value Reference Range Interpretation Comments WBC (test code = WBC) 6.1 3.7-10.4 [facility] ArlingtonOqduakqDRXAFEYNQJ2781-83-78 09:49:00 Test Item Value Reference Range Interpretation Comments RBC (test code = RBC) 3.59 4.20-5.40 [facility] ArlingtonBjutsesJSSJHZGGPI1011-90-82 09:49:00 Test Item Value Reference Range Interpretation Comments Hgb (test code = Hgb) 10.4 12.0-16.0 [facility] ArlingtonQcfyqfmGZVKOVBJSY0033-77-40 09:49:00 Test Item Value Reference Range Interpretation Comments Hct (test code = Hct) 32.5 36.0-48.0 [facility] ArlingtonXvakaidQNTNITAUWE6483-34-12 09:49:00 Test Item Value Reference Range Interpretation Comments MCV (test code = MCV) 90.7 80.0-98.0 [facility] ArlingtonSmctsyvQRGFMPLDTW1644-39-75 09:49:00 Test Item Value Reference Range Interpretation Comments MCH (test code = MCH) 29.0 pg 27.0-31.0 [facility] ArlingtonJazdpavGSMAAHFHMV1549-50-90 09:49:00 Test Item Value Reference Range Interpretation Comments MCHC (test code = MCHC) 31.9 32.0-36.0 [facility] ArlingtonZppiwxqRWXOALOGBU9722-15-90 09:49:00 Test Item Value Reference Range Interpretation Comments RDW (test code = RDW) 15.4 11.5-14.5 [facility] ArlingtonYajvzmvVGRLCWPAEO1871-89-86 09:49:00 Test Item Value Reference Range Interpretation Comments Platelet (test code = Platelet) 111 133-450 [facility] ArlingtonThbdpmiJVOOFPDBLK8705-06-43 09:49:00 Test Item Value Reference Range Interpretation Comments MPV (test code = MPV) 9.5 7.4-10.4 [facility]2020-10-15 09:49:00 Test Item Value Reference Range Interpretation Comments Glucose Lvl (test code = Glucose Lvl) 110 70-99 [place] 546840-10-15 09:49:00 Test Item Value Reference Range Interpretation Comments BUN (test code = BUN) 41 7-22 [place] 546840-10-15 09:49:00 Test Item Value Reference Range Interpretation Comments Creatinine Lvl (test code = Creatinine 7.28 0.50-1.40 Lvl) [place] 546840-10-15 09:49:00 Test Item Value Reference Range Interpretation Comments Sodium Lvl (test code = Sodium Lvl) 141 135-145 [place] 546840-10-15 09:49:00 Test Item Value Reference Range Interpretation Comments Potassium Lvl (test code = Potassium 4.2 3.5-5.1 Lvl) [facility]2020-10-15 09:49:00 Test Item Value Reference Range Interpretation Comments Chloride Lvl (test code = Chloride Lvl) 108 95-109 [place] 546840-10-15 09:49:00 Test Item Value Reference Range Interpretation Comments CO2 (test code = CO2) 24 24-32 [place] 546840-10-15 09:49:00 Test Item Value Reference Range Interpretation Comments Calcium Lvl (test code = Calcium Lvl) 8.8 8.5-10.5 [facility]2020-10-15 09:49:00 Test Item Value Reference Range Interpretation Comments AGAP (test code = AGAP) 13.2 10.0-20.0 [place] 546840-10-15 09:49:00 Test Item Value Reference Range Interpretation Comments eGFR (test code = eGFR) 6 [place] 579810-10-15 09:49:00 Test Item Value Reference Range Interpretation Comments Segs (test code = Segs) 79.6 45.0-75.0 [place] [address]-10-15 09:49:00 Test Item Value Reference Range Interpretation Comments Lymphocytes (test code = Lymphocytes) 4.6 20.0-40.0 [place] [address]-10-15 09:49:00 Test Item Value Reference Range Interpretation Comments Monocytes (test code = Monocytes) 13.3 2.0-12.0 [place] [address]-10-15 09:49:00 Test Item Value Reference Range Interpretation Comments Eosinophils (test code = 1.9 See_Comment [A utomated message] The Eosinophils) system which ge nerated this result tra nsmitted reference range : <=4.0. The reference r eileen was not used to int erpret this result as normal/abnormal . [facility] ArlingtonTjwdqjgNLKXCHMSWU4463-83-11 09:49:00 Test Item Value Reference Range Interpretation Comments Basophils (test code = 0.6 See_Comment [Aut omated message] The Basophils) system which ge nerated this result tra nsmitted reference range : <=1.0. The reference r eileen was not used to int erpret this result as normal/abnormal . [facility] ArlingtonOllgeflPLRFGCRORM2573-08-74 09:49:00 Test Item Value Reference Range Interpretation Comments Neutrophils # (test code = Neutrophils 4.9 1.5-8.1 #) [facility] ArlingtonKklwgbcAKSNPWHSGJ5746-24-16 09:49:00 Test Item Value Reference Range Interpretation Comments Lymphocytes # (test code = Lymphocytes 0.3 1.0-5.5 #) [place] [address]-10-15 09:49:00 Test Item Value Reference Range Interpretation Comments Monocytes # (test code 0.8 See_Comment [Aut omated message] The = Monocytes #) system which generated this result tra nsmitted reference range : <=0.8. The reference r eileen was not used to int erpret this result as normal/abnormal . [facility] ArlingtonWfcidpeGLALBOUOWI3450-18-70 09:49:00 Test Item Value Reference Range Interpretation Comments Eosinophils # (test code 0.1 See_Comment [A utomated message] The = Eosinophils #) system whic h generated this result tra nsmitted reference range : <=0.5. The reference r eileen was not used to int erpret this result as normal/abnormal . [facility] ArlingtonUwzaubdYRCUZFFIAS8883-28-41 09:49:00 Test Item Value Reference Range Interpretation Comments WBC (test code = WBC) 6.1 3.7-10.4 [place] [address]-10-15 09:49:00 Test Item Value Reference Range Interpretation Comments RBC (test code = RBC) 3.59 4.20-5.40 [place] 579810-10-15 09:49:00 Test Item Value Reference Range Interpretation Comments Hgb (test code = Hgb) 10.4 12.0-16.0 [place] [address]-10-15 09:49:00 Test Item Value Reference Range Interpretation Comments Hct (test code = Hct) 32.5 36.0-48.0 [place] [address]-10-15 09:49:00 Test Item Value Reference Range Interpretation Comments MCV (test code = MCV) 90.7 80.0-98.0 [place] [address]-10-15 09:49:00 Test Item Value Reference Range Interpretation Comments MCH (test code = MCH) 29.0 pg 27.0-31.0 [place] [address]-10-15 09:49:00 Test Item Value Reference Range Interpretation Comments MCHC (test code = MCHC) 31.9 32.0-36.0 [place] [address]-10-15 09:49:00 Test Item Value Reference Range Interpretation Comments RDW (test code = RDW) 15.4 11.5-14.5 [place] [address]-10-15 09:49:00 Test Item Value Reference Range Interpretation Comments Platelet (test code = Platelet) 111 133-450 [place] [address]-10-15 09:49:00 Test Item Value Reference Range Interpretation Comments MPV (test code = MPV) 9.5 7.4-10.4 [place] 546840-10-15 09:49:00 Test Item Value Reference Range Interpretation Comments Glucose Lvl (test code = Glucose Lvl) 110 70-99 [place] 546840-10-15 09:49:00 Test Item Value Reference Range Interpretation Comments BUN (test code = BUN) 41 7-22 [place] [address]-10-15 09:49:00 Test Item Value Reference Range Interpretation Comments Creatinine Lvl (test code = Creatinine 7.28 0.50-1.40 Lvl) [place] 546840-10-15 09:49:00 Test Item Value Reference Range Interpretation Comments Sodium Lvl (test code = Sodium Lvl) 141 135-145 [place] 546840-10-15 09:49:00 Test Item Value Reference Range Interpretation Comments Potassium Lvl (test code = Potassium 4.2 3.5-5.1 Lvl) [place] 546840-10-15 09:49:00 Test Item Value Reference Range Interpretation Comments Chloride Lvl (test code = Chloride Lvl) 108 95-109 [place] [address]-10-15 09:49:00 Test Item Value Reference Range Interpretation Comments CO2 (test code = CO2) 24 24-32 [place] [address]-10-15 09:49:00 Test Item Value Reference Range Interpretation Comments Calcium Lvl (test code = Calcium Lvl) 8.8 8.5-10.5 [place] [address]-10-15 09:49:00 Test Item Value Reference Range Interpretation Comments AGAP (test code = AGAP) 13.2 10.0-20.0 [place] [address]-10-15 09:49:00 Test Item Value Reference Range Interpretation Comments eGFR (test code = eGFR) 6 [place] [address]-10-15 09:49:00 Test Item Value Reference Range Interpretation Comments Segs (test code = Segs) 79.6 45.0-75.0 [place] [address]-10-15 09:49:00 Test Item Value Reference Range Interpretation Comments Lymphocytes (test code = Lymphocytes) 4.6 20.0-40.0 [place] [address]-10-15 09:49:00 Test Item Value Reference Range Interpretation Comments Monocytes (test code = Monocytes) 13.3 2.0-12.0 [place] [address]-10-15 09:49:00 Test Item Value Reference Range Interpretation Comments Eosinophils (test code = 1.9 See_Comment [A utomated message] The Eosinophils) system which ge nerated this result tra nsmitted reference range : <=4.0. The reference r eileen was not used to int erpret this result as normal/abnormal . [place] [address]-10-15 09:49:00 Test Item Value Reference Range Interpretation Comments Basophils (test code = 0.6 See_Comment [Aut omated message] The Basophils) system which ge nerated this result tra nsmitted reference range : <=1.0. The reference r eileen was not used to int erpret this result as normal/abnormal . [place] [address]-10-15 09:49:00 Test Item Value Reference Range Interpretation Comments Neutrophils # (test code = Neutrophils 4.9 1.5-8.1 #) [facility] ArlingtonAfvzyyxKDLSAZXHAM5711-99-26 09:49:00 Test Item Value Reference Range Interpretation Comments Lymphocytes # (test code = Lymphocytes 0.3 1.0-5.5 #) [place] 579810-10-15 09:49:00 Test Item Value Reference Range Interpretation Comments Monocytes # (test code 0.8 See_Comment [Aut omated message] The = Monocytes #) system which generated this result tra nsmitted reference range : <=0.8. The reference r eileen was not used to int erpret this result as normal/abnormal . [facility] ArlingtonItufgyxHDPYKRIVAT8375-73-03 09:49:00 Test Item Value Reference Range Interpretation Comments Eosinophils # (test code 0.1 See_Comment [A utomated message] The = Eosinophils #) system whic h generated this result tra nsmitted reference range : <=0.5. The reference r eileen was not used to int erpret this result as normal/abnormal . [facility] ArlingtonFlzrhrtEBWJZLRGOV8365-82-90 09:49:00 Test Item Value Reference Range Interpretation Comments WBC (test code = WBC) 6.1 3.7-10.4 [place] [address]-10-15 09:49:00 Test Item Value Reference Range Interpretation Comments RBC (test code = RBC) 3.59 4.20-5.40 [place] [address]-10-15 09:49:00 Test Item Value Reference Range Interpretation Comments Hgb (test code = Hgb) 10.4 12.0-16.0 [place] [address]-10-15 09:49:00 Test Item Value Reference Range Interpretation Comments Hct (test code = Hct) 32.5 36.0-48.0 [place] [address]-10-15 09:49:00 Test Item Value Reference Range Interpretation Comments MCV (test code = MCV) 90.7 80.0-98.0 [place] [address]-10-15 09:49:00 Test Item Value Reference Range Interpretation Comments MCH (test code = MCH) 29.0 pg 27.0-31.0 [place] 579810-10-15 09:49:00 Test Item Value Reference Range Interpretation Comments MCHC (test code = MCHC) 31.9 32.0-36.0 [place] [address]-10-15 09:49:00 Test Item Value Reference Range Interpretation Comments RDW (test code = RDW) 15.4 11.5-14.5 [place] 579810-10-15 09:49:00 Test Item Value Reference Range Interpretation Comments Platelet (test code = Platelet) 111 133-450 [facility] ArlingtonIvdfcyvFWKIEFXSYU9270-18-61 09:49:00 Test Item Value Reference Range Interpretation Comments MPV (test code = MPV) 9.5 7.4-10.4 [place] 546840-10-15 09:49:00 Test Item Value Reference Range Interpretation Comments Glucose Lvl (test code = Glucose Lvl) 110 70-99 [place] 546840-10-15 09:49:00 Test Item Value Reference Range Interpretation Comments BUN (test code = BUN) 41 7-22 [place] 546840-10-15 09:49:00 Test Item Value Reference Range Interpretation Comments Creatinine Lvl (test code = Creatinine 7.28 0.50-1.40 Lvl) [place] 546840-10-15 09:49:00 Test Item Value Reference Range Interpretation Comments Sodium Lvl (test code = Sodium Lvl) 141 135-145 [facility]2020-10-15 09:49:00 Test Item Value Reference Range Interpretation Comments Potassium Lvl (test code = Potassium 4.2 3.5-5.1 Lvl) [facility]2020-10-15 09:49:00 Test Item Value Reference Range Interpretation Comments Chloride Lvl (test code = Chloride Lvl) 108 95-109 [place] 546840-10-15 09:49:00 Test Item Value Reference Range Interpretation Comments CO2 (test code = CO2) 24 24-32 [place] 546840-10-15 09:49:00 Test Item Value Reference Range Interpretation Comments Calcium Lvl (test code = Calcium Lvl) 8.8 8.5-10.5 [place] 546840-10-15 09:49:00 Test Item Value Reference Range Interpretation Comments AGAP (test code = AGAP) 13.2 10.0-20.0 [place] 546840-10-15 09:49:00 Test Item Value Reference Range Interpretation Comments eGFR (test code = eGFR) 6 [facility] ArlingtonHorqjybMKLTCSWSIN8899-59-61 09:49:00 Test Item Value Reference Range Interpretation Comments Segs (test code = Segs) 79.6 45.0-75.0 [place] 579810-10-15 09:49:00 Test Item Value Reference Range Interpretation Comments Lymphocytes (test code = Lymphocytes) 4.6 20.0-40.0 [place] 579810-10-15 09:49:00 Test Item Value Reference Range Interpretation Comments Monocytes (test code = Monocytes) 13.3 2.0-12.0 [facility] ArlingtonCckpjqdRRIKMKWRJR1869-40-73 09:49:00 Test Item Value Reference Range Interpretation Comments Eosinophils (test code = 1.9 See_Comment [A utomated message] The Eosinophils) system which ge nerated this result tra nsmitted reference range : <=4.0. The reference r eileen was not used to int erpret this result as normal/abnormal . [place] [address]-10-15 09:49:00 Test Item Value Reference Range Interpretation Comments Basophils (test code = 0.6 See_Comment [Aut omated message] The Basophils) system which ge nerated this result tra nsmitted reference range : <=1.0. The reference r eileen was not used to int erpret this result as normal/abnormal . [facility] ArlingtonFwdrdlqPZDLMTRBEA9889-92-57 09:49:00 Test Item Value Reference Range Interpretation Comments Neutrophils # (test code = Neutrophils 4.9 1.5-8.1 #) [place] 579810-10-15 09:49:00 Test Item Value Reference Range Interpretation Comments Lymphocytes # (test code = Lymphocytes 0.3 1.0-5.5 #) [place] [address]-10-15 09:49:00 Test Item Value Reference Range Interpretation Comments Monocytes # (test code 0.8 See_Comment [Aut omated message] The = Monocytes #) system which generated this result tra nsmitted reference range : <=0.8. The reference r eileen was not used to int erpret this result as normal/abnormal . [place] [address]-10-15 09:49:00 Test Item Value Reference Range Interpretation Comments Eosinophils # (test code 0.1 See_Comment [A utomated message] The = Eosinophils #) system whic h generated this result tra nsmitted reference range : <=0.5. The reference r eileen was not used to int erpret this result as normal/abnormal . [facility]mf[facility]tcTYEXPAEJHS4832[facility]13-05 09:49:00 Test Item Value Reference Range Interpretation Comments WBC (test code = WBC) 6.1 3.7-10.4 [facility]OjmwlhiKFADWSQPXF4900-27-37 09:49:00 Test Item Value Reference Range Interpretation Comments RBC (test code = RBC) 3.59 4.20-5.40 [facility] ArlingtonQihfrhmMWHSYLSEUO6824-48-51 09:49:00 Test Item Value Reference Range Interpretation Comments Hgb (test code = Hgb) 10.4 12.0-16.0 [facility] ArlingtonSjzpdoeRFQNQAUJLN6437-01-70 09:49:00 Test Item Value Reference Range Interpretation Comments Hct (test code = Hct) 32.5 36.0-48.0 [facility]HjxvdxfEXERWGIYNU9932-50-87 09:49:00 Test Item Value Reference Range Interpretation Comments MCV (test code = MCV) 90.7 80.0-98.0 [facility] ArlingtonZdnohwwJNPRGNKTAT5996-77-92 09:49:00 Test Item Value Reference Range Interpretation Comments MCH (test code = MCH) 29.0 pg 27.0-31.0 [facility] ArlingtonRwkisakZSZYTKQUFO8932-03-32 09:49:00 Test Item Value Reference Range Interpretation Comments MCHC (test code = MCHC) 31.9 32.0-36.0 [facility] ArlingtonYncwtqfSBUEHQSHRM8285-85-68 09:49:00 Test Item Value Reference Range Interpretation Comments RDW (test code = RDW) 15.4 11.5-14.5 [facility] ArlingtonOveiywmCFFVRLSSBL1679-08-94 09:49:00 Test Item Value Reference Range Interpretation Comments Platelet (test code = Platelet) 111 133-450 [facility] ArlingtonDczwaiuZJKFWYSSMD4833-08-49 09:49:00 Test Item Value Reference Range Interpretation Comments MPV (test code = MPV) 9.5 7.4-10.4 [facility]2020-10-15 09:49:00 Test Item Value Reference Range Interpretation Comments Glucose Lvl (test code = Glucose Lvl) 110 70-99 [facility]2020-10-15 09:49:00 Test Item Value Reference Range Interpretation Comments BUN (test code = BUN) 41 7-22 [place] [address]-10-15 09:49:00 Test Item Value Reference Range Interpretation Comments Creatinine Lvl (test code = Creatinine 7.28 0.50-1.40 Lvl) [place] 546840-10-15 09:49:00 Test Item Value Reference Range Interpretation Comments Sodium Lvl (test code = Sodium Lvl) 141 135-145 [place] [address]-10-15 09:49:00 Test Item Value Reference Range Interpretation Comments Potassium Lvl (test code = Potassium 4.2 3.5-5.1 Lvl) [place] 546840-10-15 09:49:00 Test Item Value Reference Range Interpretation Comments Chloride Lvl (test code = Chloride Lvl) 108 95-109 [place] 546840-10-15 09:49:00 Test Item Value Reference Range Interpretation Comments CO2 (test code = CO2) 24 24-32 [place] [address]-10-15 09:49:00 Test Item Value Reference Range Interpretation Comments Calcium Lvl (test code = Calcium Lvl) 8.8 8.5-10.5 [place] 546840-10-15 09:49:00 Test Item Value Reference Range Interpretation Comments AGAP (test code = AGAP) 13.2 10.0-20.0 [place] [address]-10-15 09:49:00 Test Item Value Reference Range Interpretation Comments eGFR (test code = eGFR) 6 [place] [address]-10-15 09:49:00 Test Item Value Reference Range Interpretation Comments Segs (test code = Segs) 79.6 45.0-75.0 [place] [address]-10-15 09:49:00 Test Item Value Reference Range Interpretation Comments Lymphocytes (test code = Lymphocytes) 4.6 20.0-40.0 [place] [address]-10-15 09:49:00 Test Item Value Reference Range Interpretation Comments Monocytes (test code = Monocytes) 13.3 2.0-12.0 [place] [address]-10-15 09:49:00 Test Item Value Reference Range Interpretation Comments Eosinophils (test code = 1.9 See_Comment [A utomated message] The Eosinophils) system which ge nerated this result tra nsmitted reference range : <=4.0. The reference r eileen was not used to int erpret this result as normal/abnormal . [facility] ArlingtonNrlytwnOKORKHSQZT5998-38-14 09:49:00 Test Item Value Reference Range Interpretation Comments Basophils (test code = 0.6 See_Comment [Aut omated message] The Basophils) system which ge nerated this result tra nsmitted reference range : <=1.0. The reference r eileen was not used to int erpret this result as normal/abnormal . [facility] ArlingtonLgwcnkxUJLGYTEYCO9679-77-51 09:49:00 Test Item Value Reference Range Interpretation Comments Neutrophils # (test code = Neutrophils 4.9 1.5-8.1 #) [facility] ArlingtonJiknzecGSBDEREYFW2500-87-07 09:49:00 Test Item Value Reference Range Interpretation Comments Lymphocytes # (test code = Lymphocytes 0.3 1.0-5.5 #) [facility] ArlingtonMfaitqkVJNUUMCEZO1244-70-87 09:49:00 Test Item Value Reference Range Interpretation Comments Monocytes # (test code 0.8 See_Comment [Aut omated message] The = Monocytes #) system which generated this result tra nsmitted reference range : <=0.8. The reference r eileen was not used to int erpret this result as normal/abnormal . [facility] ArlingtonVcfujwmIBGMRHVJJH7233-88-19 09:49:00 Test Item Value Reference Range Interpretation Comments Eosinophils # (test code 0.1 See_Comment [A utomated message] The = Eosinophils #) system whic h generated this result tra nsmitted reference range : <=0.5. The reference r eileen was not used to int erpret this result as normal/abnormal . [facility] ArlingtonGvuecqtHGIQASLTXT4631-21-61 09:49:00 Test Item Value Reference Range Interpretation Comments WBC (test code = WBC) 6.1 3.7-10.4 [facility] ArlingtonUpwvsmjGICAQTAMPU8701-62-28 09:49:00 Test Item Value Reference Range Interpretation Comments RBC (test code = RBC) 3.59 4.20-5.40 [facility] ArlingtonVgwycimOQWAEJZERY6219-74-47 09:49:00 Test Item Value Reference Range Interpretation Comments Hgb (test code = Hgb) 10.4 12.0-16.0 [place] 579810-10-15 09:49:00 Test Item Value Reference Range Interpretation Comments Hct (test code = Hct) 32.5 36.0-48.0 [facility] ArlingtonVrdjcsmFRHPLBCGFD7621-39-54 09:49:00 Test Item Value Reference Range Interpretation Comments MCV (test code = MCV) 90.7 80.0-98.0 [facility] ArlingtonQpwqcjvFXUHBYTTPN4879-94-24 09:49:00 Test Item Value Reference Range Interpretation Comments MCH (test code = MCH) 29.0 pg 27.0-31.0 [facility] ArlingtonNkfpljrSQKNFQJARV9558-70-30 09:49:00 Test Item Value Reference Range Interpretation Comments MCHC (test code = MCHC) 31.9 32.0-36.0 [facility] ArlingtonUjinoqgPNXGJBWQAV8221-76-24 09:49:00 Test Item Value Reference Range Interpretation Comments RDW (test code = RDW) 15.4 11.5-14.5 [facility] ArlingtonGiuaztrOLGGXFWFUB3885-82-78 09:49:00 Test Item Value Reference Range Interpretation Comments Platelet (test code = Platelet) 111 133-450 [facility] ArlingtonGrtuestYEQALNZDCN3800-87-54 09:49:00 Test Item Value Reference Range Interpretation Comments MPV (test code = MPV) 9.5 7.4-10.4 [facility] BWRYQTT6413-39-08 20:57:00 Test Item Value Reference Range Interpretation Comments RBC product (test code Product available = RBC product) 4(04/06/20 3:57 PM) [facility] [id number] 20:57:00 Test Item Value Reference Range Interpretation Comments RBC product (test code Product available = RBC product) 4(04/06/20 3:57 PM) [facility] [id number] 20:57:00 Test Item Value Reference Range Interpretation Comments RBC product (test code Product available = RBC product) 4(04/06/20 3:57 PM) [facility] [id number] 20:57:00 Test Item Value Reference Range Interpretation Comments RBC product (test code Product available = RBC product) 4(04/06/20 3:57 PM) [facility] JPRKONJ1645-01-28 20:57:00 Test Item Value Reference Range Interpretation Comments RBC product (test code Product available = RBC product) 4(04/06/20 3:57 PM) [facility] [id number] 16:13:00 Test Item Value Reference Range Interpretation Comments ABO/Rh (test code = ABO/Rh) B [facility] [id number] 16:13:00 Test Item Value Reference Range Interpretation Comments Antibody Scrn (test Negative (04/06/20 code = Antibody Scrn) 11:13 AM) [facility]My[facility] FWSRJWZ8435-99-57 16:13:00 Test Item Value Reference Range Interpretation Comments ABO/Rh (test code = ABO/Rh) B [facility] [id number] 16:13:00 Test Item Value Reference Range Interpretation Comments Antibody Scrn (test Negative (04/06/20 code = Antibody Scrn) 11:13 AM) [facility] [id number] 16:13:00 Test Item Value Reference Range Interpretation Comments ABO/Rh (test code = ABO/Rh) B [facility] [id number] 16:13:00 Test Item Value Reference Range Interpretation Comments Antibody Scrn (test Negative (04/06/20 code = Antibody Scrn) 11:13 AM) [facility] [id number] 16:13:00 Test Item Value Reference Range Interpretation Comments ABO/Rh (test code = ABO/Rh) B [facility] [id number] 16:13:00 Test Item Value Reference Range Interpretation Comments Antibody Scrn (test Negative (04/06/20 code = Antibody Scrn) 11:13 AM) [facility] [id number] 16:13:00 Test Item Value Reference Range Interpretation Comments ABO/Rh (test code = ABO/Rh) B [facility] [id number] 16:13:00 Test Item Value Reference Range Interpretation Comments Antibody Scrn (test Negative (04/06/20 code = Antibody Scrn) 11:13 AM) [employer] [id number] 09:45:00 Test Item Value Reference Range Interpretation Comments Glucose Lvl (test code = Glucose Lvl) 83 70-99 [facility] [place] [id number] 09:45:00 Test Item Value Reference Range Interpretation Comments BUN (test code = BUN) 36 7-22 [place] 546840-10-14 09:45:00 Test Item Value Reference Range Interpretation Comments Creatinine Lvl (test code = Creatinine 6.40 0.50-1.40 Lvl) [place] 546840-10-14 09:45:00 Test Item Value Reference Range Interpretation Comments Sodium Lvl (test code = Sodium Lvl) 140 135-145 [place] 546840-10-14 09:45:00 Test Item Value Reference Range Interpretation Comments Potassium Lvl (test code = Potassium 3.6 3.5-5.1 Lvl) [place] 546840-10-14 09:45:00 Test Item Value Reference Range Interpretation Comments Chloride Lvl (test code = Chloride Lvl) 107 95-109 [place] 546840-10-14 09:45:00 Test Item Value Reference Range Interpretation Comments CO2 (test code = CO2) 24 24-32 [place] 546840-10-14 09:45:00 Test Item Value Reference Range Interpretation Comments Calcium Lvl (test code = Calcium Lvl) 9.1 8.5-10.5 [facility]2020-10-14 09:45:00 Test Item Value Reference Range Interpretation Comments AGAP (test code = AGAP) 12.6 10.0-20.0 [place] 546840-10-14 09:45:00 Test Item Value Reference Range Interpretation Comments eGFR (test code = eGFR) 7 [place] 52348020-10-14 09:45:00 Test Item Value Reference Range Interpretation Comments S Preg (test code = S Negative *NA*(04/06/20 Preg) 4:45 AM) [place] [address]-10-14 09:45:00 Test Item Value Reference Range Interpretation Comments WBC (test code = WBC) 4.5 3.7-10.4 [facility] ArlingtonDrhxmpxSQOZRTSVMY2838-32-80 09:45:00 Test Item Value Reference Range Interpretation Comments RBC (test code = RBC) 3.73 4.20-5.40 [place] 579810-10-14 09:45:00 Test Item Value Reference Range Interpretation Comments Hgb (test code = Hgb) 10.7 12.0-16.0 [facility] ArlingtonMgukhgoYMJYMRJACI8961-12-15 09:45:00 Test Item Value Reference Range Interpretation Comments Hct (test code = Hct) 33.6 36.0-48.0 [facility] ArlingtonYggezxrQAAVJYFZOI0627-41-52 09:45:00 Test Item Value Reference Range Interpretation Comments MCV (test code = MCV) 90.1 80.0-98.0 [facility] ArlingtonKpazsboPGHGRQTFSJ3830-53-83 09:45:00 Test Item Value Reference Range Interpretation Comments MCH (test code = MCH) 28.6 pg 27.0-31.0 [facility] ArlingtonZcjqtiiFSOINCKKTM5340-10-26 09:45:00 Test Item Value Reference Range Interpretation Comments MCHC (test code = MCHC) 31.8 32.0-36.0 [facility] ArlingtonIofdqwcDPILDCSBKO9421-02-65 09:45:00 Test Item Value Reference Range Interpretation Comments RDW (test code = RDW) 15.5 11.5-14.5 [facility] ArlingtonYvhxdwfZVLLRSGESP6676-46-42 09:45:00 Test Item Value Reference Range Interpretation Comments Platelet (test code = Platelet) 134 133-450 [facility] ArlingtonLrujwxfCEKWVPMSPX9407-79-07 09:45:00 Test Item Value Reference Range Interpretation Comments MPV (test code = MPV) 9.9 7.4-10.4 [facility] ArlingtonLhxkmqvBMUDSNCCKI5745-66-91 09:45:00 Test Item Value Reference Range Interpretation Comments Segs (test code = Segs) 62.8 45.0-75.0 [facility] ArlingtonGuiultrQJQLWQUAZM8563-66-26 09:45:00 Test Item Value Reference Range Interpretation Comments Lymphocytes (test code = Lymphocytes) 17.1 20.0-40.0 [place] 579810-10-14 09:45:00 Test Item Value Reference Range Interpretation Comments Monocytes (test code = Monocytes) 15.2 2.0-12.0 [place] [address]-10-14 09:45:00 Test Item Value Reference Range Interpretation Comments Eosinophils (test code = 4.1 See_Comment [A utomated message] The Eosinophils) system which ge nerated this result tra nsmitted reference range : <=4.0. The reference r eileen was not used to int erpret this result as normal/abnormal . [facility] ArlingtonKrahadeXLZBQDMKXW8097-42-61 09:45:00 Test Item Value Reference Range Interpretation Comments Basophils (test code = 0.8 See_Comment [Aut omated message] The Basophils) system which ge nerated this result tra nsmitted reference range : <=1.0. The reference r eileen was not used to int erpret this result as normal/abnormal . [place] 579810-10-14 09:45:00 Test Item Value Reference Range Interpretation Comments Neutrophils # (test code = Neutrophils 2.9 1.5-8.1 #) [place] 579810-10-14 09:45:00 Test Item Value Reference Range Interpretation Comments Lymphocytes # (test code = Lymphocytes 0.8 1.0-5.5 #) [place] 579810-10-14 09:45:00 Test Item Value Reference Range Interpretation Comments Monocytes # (test code 0.7 See_Comment [Aut omated message] The = Monocytes #) system which generated this result tra nsmitted reference range : <=0.8. The reference r eileen was not used to int erpret this result as normal/abnormal . [place] [address]-10-14 09:45:00 Test Item Value Reference Range Interpretation Comments Eosinophils # (test code 0.2 See_Comment [A utomated message] The = Eosinophils #) system whic h generated this result tra nsmitted reference range : <=0.5. The reference r eileen was not used to int erpret this result as normal/abnormal . [facility]2020-10-14 09:45:00 Test Item Value Reference Range Interpretation Comments Glucose Lvl (test code = Glucose Lvl) 83 70-99 [facility] FEUZP4303-03-66 09:45:00 Test Item Value Reference Range Interpretation Comments BUN (test code = BUN) 36 7-22 [place] [address]-10-14 09:45:00 Test Item Value Reference Range Interpretation Comments Creatinine Lvl (test code = Creatinine 6.40 0.50-1.40 Lvl) [place] 546840-10-14 09:45:00 Test Item Value Reference Range Interpretation Comments Sodium Lvl (test code = Sodium Lvl) 140 135-145 [place] 546840-10-14 09:45:00 Test Item Value Reference Range Interpretation Comments Potassium Lvl (test code = Potassium 3.6 3.5-5.1 Lvl) [place] 546840-10-14 09:45:00 Test Item Value Reference Range Interpretation Comments Chloride Lvl (test code = Chloride Lvl) 107 95-109 [place] 546840-10-14 09:45:00 Test Item Value Reference Range Interpretation Comments CO2 (test code = CO2) 24 24-32 [place] 546840-10-14 09:45:00 Test Item Value Reference Range Interpretation Comments Calcium Lvl (test code = Calcium Lvl) 9.1 8.5-10.5 [place] 546840-10-14 09:45:00 Test Item Value Reference Range Interpretation Comments AGAP (test code = AGAP) 12.6 10.0-20.0 [place] [address]-10-14 09:45:00 Test Item Value Reference Range Interpretation Comments eGFR (test code = eGFR) 7 [place] 52348020-10-14 09:45:00 Test Item Value Reference Range Interpretation Comments S Preg (test code = S Negative *NA*(04/06/20 Preg) 4:45 AM) [place] [address]-10-14 09:45:00 Test Item Value Reference Range Interpretation Comments WBC (test code = WBC) 4.5 3.7-10.4 [place] [address]-10-14 09:45:00 Test Item Value Reference Range Interpretation Comments RBC (test code = RBC) 3.73 4.20-5.40 [place] [address]-10-14 09:45:00 Test Item Value Reference Range Interpretation Comments Hgb (test code = Hgb) 10.7 12.0-16.0 [place] [address]-10-14 09:45:00 Test Item Value Reference Range Interpretation Comments Hct (test code = Hct) 33.6 36.0-48.0 [place] [address]-10-14 09:45:00 Test Item Value Reference Range Interpretation Comments MCV (test code = MCV) 90.1 80.0-98.0 [place] [address]-10-14 09:45:00 Test Item Value Reference Range Interpretation Comments MCH (test code = MCH) 28.6 pg 27.0-31.0 [place] [address]-10-14 09:45:00 Test Item Value Reference Range Interpretation Comments MCHC (test code = MCHC) 31.8 32.0-36.0 [place] [address]-10-14 09:45:00 Test Item Value Reference Range Interpretation Comments RDW (test code = RDW) 15.5 11.5-14.5 [place] 579810-10-14 09:45:00 Test Item Value Reference Range Interpretation Comments Platelet (test code = Platelet) 134 133-450 [place] [address]-10-14 09:45:00 Test Item Value Reference Range Interpretation Comments MPV (test code = MPV) 9.9 7.4-10.4 [place] [address]-10-14 09:45:00 Test Item Value Reference Range Interpretation Comments Segs (test code = Segs) 62.8 45.0-75.0 [place] [address]-10-14 09:45:00 Test Item Value Reference Range Interpretation Comments Lymphocytes (test code = Lymphocytes) 17.1 20.0-40.0 [place] [address]-10-14 09:45:00 Test Item Value Reference Range Interpretation Comments Monocytes (test code = Monocytes) 15.2 2.0-12.0 [facility] ArlingtonNaacyizFQOVEFSATA5517-13-70 09:45:00 Test Item Value Reference Range Interpretation Comments Eosinophils (test code = 4.1 See_Comment [A utomated message] The Eosinophils) system which ge nerated this result tra nsmitted reference range : <=4.0. The reference r eileen was not used to int erpret this result as normal/abnormal . [place] [address]-10-14 09:45:00 Test Item Value Reference Range Interpretation Comments Basophils (test code = 0.8 See_Comment [Aut omated message] The Basophils) system which ge nerated this result tra nsmitted reference range : <=1.0. The reference r eileen was not used to int erpret this result as normal/abnormal . [place] 579810-10-14 09:45:00 Test Item Value Reference Range Interpretation Comments Neutrophils # (test code = Neutrophils 2.9 1.5-8.1 #) [facility] ArlingtonRbofdenUAFLZILDQL7844-45-27 09:45:00 Test Item Value Reference Range Interpretation Comments Lymphocytes # (test code = Lymphocytes 0.8 1.0-5.5 #) [place] [address]-10-14 09:45:00 Test Item Value Reference Range Interpretation Comments Monocytes # (test code 0.7 See_Comment [Aut omated message] The = Monocytes #) system which generated this result tra nsmitted reference range : <=0.8. The reference r eileen was not used to int erpret this result as normal/abnormal . [place] [address]-10-14 09:45:00 Test Item Value Reference Range Interpretation Comments Eosinophils # (test code 0.2 See_Comment [A utomated message] The = Eosinophils #) system whic h generated this result tra nsmitted reference range : <=0.5. The reference r eileen was not used to int erpret this result as normal/abnormal . [place] 546840-10-14 09:45:00 Test Item Value Reference Range Interpretation Comments Glucose Lvl (test code = Glucose Lvl) 83 70-99 [place] 546840-10-14 09:45:00 Test Item Value Reference Range Interpretation Comments BUN (test code = BUN) 36 7-22 [place] [address]-10-14 09:45:00 Test Item Value Reference Range Interpretation Comments Creatinine Lvl (test code = Creatinine 6.40 0.50-1.40 Lvl) [place] [address]-10-14 09:45:00 Test Item Value Reference Range Interpretation Comments Sodium Lvl (test code = Sodium Lvl) 140 135-145 [place] [address]-10-14 09:45:00 Test Item Value Reference Range Interpretation Comments Potassium Lvl (test code = Potassium 3.6 3.5-5.1 Lvl) [place] [address]-10-14 09:45:00 Test Item Value Reference Range Interpretation Comments Chloride Lvl (test code = Chloride Lvl) 107 95-109 [place] [address]-10-14 09:45:00 Test Item Value Reference Range Interpretation Comments CO2 (test code = CO2) 24 24-32 [place] [address]-10-14 09:45:00 Test Item Value Reference Range Interpretation Comments Calcium Lvl (test code = Calcium Lvl) 9.1 8.5-10.5 [facility] [id number] 09:45:00 Test Item Value Reference Range Interpretation Comments AGAP (test code = AGAP) 12.6 10.0-20.0 [facility] [id number] 09:45:00 Test Item Value Reference Range Interpretation Comments eGFR (test code = eGFR) 7 [facility]OUGHFQBCAOW1133-29-36 09:45:00 Test Item Value Reference Range Interpretation Comments S Preg (test code = S Negative *NA*(04/06/20 Preg) 4:45 AM) [facility] ArlingtonHroxtgaEGREEWTFQU0137-46-33 09:45:00 Test Item Value Reference Range Interpretation Comments WBC (test code = WBC) 4.5 3.7-10.4 [facility] ArlingtonCkchszmFVMFLHESBQ3440-85-03 09:45:00 Test Item Value Reference Range Interpretation Comments RBC (test code = RBC) 3.73 4.20-5.40 [facility]ll[facility]zqnJKQXSELTRI4486[facility]97 09:45:00 Test Item Value Reference Range Interpretation Comments Hgb (test code = Hgb) 10.7 12.0-16.0 [facility]aultJqcarsuNXUHFPOTRO5506-45-67 09:45:00 Test Item Value Reference Range Interpretation Comments Hct (test code = Hct) 33.6 36.0-48.0 [facility]aultBdwdbrwLHLYJERGXW9545-58-24 09:45:00 Test Item Value Reference Range Interpretation Comments MCV (test code = MCV) 90.1 80.0-98.0 [facility]aultWszfexsBIJLSKSLSW6728-75-65 09:45:00 Test Item Value Reference Range Interpretation Comments MCH (test code = MCH) 28.6 pg 27.0-31.0 [facility] SaultOvrpacuDBXEXASTMG0189-69-67 09:45:00 Test Item Value Reference Range Interpretation Comments MCHC (test code = MCHC) 31.8 32.0-36.0 [facility]aultNqwmopfMGULQYJICL1079-36-92 09:45:00 Test Item Value Reference Range Interpretation Comments RDW (test code = RDW) 15.5 11.5-14.5 [facility]aultHgcfxzhXFNROIFOPF4848-48-14 09:45:00 Test Item Value Reference Range Interpretation Comments Platelet (test code = Platelet) 134 133-450 [facility] SaultRgrxqmwUVDAKFMRLW2594-97-58 09:45:00 Test Item Value Reference Range Interpretation Comments MPV (test code = MPV) 9.9 7.4-10.4 [place] [address]-10-14 09:45:00 Test Item Value Reference Range Interpretation Comments Segs (test code = Segs) 62.8 45.0-75.0 [place] [address]-10-14 09:45:00 Test Item Value Reference Range Interpretation Comments Lymphocytes (test code = Lymphocytes) 17.1 20.0-40.0 [place] [address]-10-14 09:45:00 Test Item Value Reference Range Interpretation Comments Monocytes (test code = Monocytes) 15.2 2.0-12.0 [place] [address]-10-14 09:45:00 Test Item Value Reference Range Interpretation Comments Eosinophils (test code = 4.1 See_Comment [A utomated message] The Eosinophils) system which ge nerated this result tra nsmitted reference range : <=4.0. The reference r eileen was not used to int erpret this result as normal/abnormal . [place] [address]-10-14 09:45:00 Test Item Value Reference Range Interpretation Comments Basophils (test code = 0.8 See_Comment [Aut omated message] The Basophils) system which ge nerated this result tra nsmitted reference range : <=1.0. The reference r eileen was not used to int erpret this result as normal/abnormal . [facility]58[facility]35 09:45:00 Test Item Value Reference Range Interpretation Comments Neutrophils # (test code = Neutrophils 2.9 1.5-8.1 #) [place] [address]-10-14 09:45:00 Test Item Value Reference Range Interpretation Comments Lymphocytes # (test code = Lymphocytes 0.8 1.0-5.5 #) [place] [address]-10-14 09:45:00 Test Item Value Reference Range Interpretation Comments Monocytes # (test code 0.7 See_Comment [Aut omated message] The = Monocytes #) system which generated this result tra nsmitted reference range : <=0.8. The reference r eileen was not used to int erpret this result as normal/abnormal . [place] [address]-10-14 09:45:00 Test Item Value Reference Range Interpretation Comments Eosinophils # (test code 0.2 See_Comment [A utomated message] The = Eosinophils #) system whic h generated this result tra nsmitted reference range : <=0.5. The reference r eileen was not used to int erpret this result as normal/abnormal . [facility]2020-10-14 09:45:00 Test Item Value Reference Range Interpretation Comments Glucose Lvl (test code = Glucose Lvl) 83 70-99 [facility] [id number] 09:45:00 Test Item Value Reference Range Interpretation Comments BUN (test code = BUN) 36 7-22 [facility]2020-10-14 09:45:00 Test Item Value Reference Range Interpretation Comments Creatinine Lvl (test code = Creatinine 6.40 0.50-1.40 Lvl) [facility]2020-10-14 09:45:00 Test Item Value Reference Range Interpretation Comments Sodium Lvl (test code = Sodium Lvl) 140 135-145 [facility] [id number] 09:45:00 Test Item Value Reference Range Interpretation Comments Potassium Lvl (test code = Potassium 3.6 3.5-5.1 Lvl) [facility] [id number] 09:45:00 Test Item Value Reference Range Interpretation Comments Chloride Lvl (test code = Chloride Lvl) 107 95-109 [facility]2020-10-14 09:45:00 Test Item Value Reference Range Interpretation Comments CO2 (test code = CO2) 24 24-32 [facility] [id number] 09:45:00 Test Item Value Reference Range Interpretation Comments Calcium Lvl (test code = Calcium Lvl) 9.1 8.5-10.5 [facility] [id number] 09:45:00 Test Item Value Reference Range Interpretation Comments AGAP (test code = AGAP) 12.6 10.0-20.0 [facility] [id number] 09:45:00 Test Item Value Reference Range Interpretation Comments eGFR (test code = eGFR) 7 [facility]UGQKQSCYWDIZA5868-06-41 09:45:00 Test Item Value Reference Range Interpretation Comments S Preg (test code = S Negative *NA*(04/06/20 Preg) 4:45 AM) [facility]xvopcKTIIUOVFWM9308-23-13 09:45:00 Test Item Value Reference Range Interpretation Comments WBC (test code = WBC) 4.5 3.7-10.4 [facility]LfhvzuzQZKMMOWJUE3669-19-43 09:45:00 Test Item Value Reference Range Interpretation Comments RBC (test code = RBC) 3.73 4.20-5.40 [facility] ArlingtonYxlusokIVSZKMUSCE1475-26-90 09:45:00 Test Item Value Reference Range Interpretation Comments Hgb (test code = Hgb) 10.7 12.0-16.0 [facility] ArlingtonBkdsgoySMUJFMWYYV0306-63-07 09:45:00 Test Item Value Reference Range Interpretation Comments Hct (test code = Hct) 33.6 36.0-48.0 [facility]PqjxclxYOAOLNGAKU1271-16-01 09:45:00 Test Item Value Reference Range Interpretation Comments MCV (test code = MCV) 90.1 80.0-98.0 [facility] ArlingtonHdclhajKJKEYKIFWP0020-55-08 09:45:00 Test Item Value Reference Range Interpretation Comments MCH (test code = MCH) 28.6 pg 27.0-31.0 [facility] ArlingtonZqqdxtrJAZKLKZWQX6500-79-93 09:45:00 Test Item Value Reference Range Interpretation Comments MCHC (test code = MCHC) 31.8 32.0-36.0 [facility] ArlingtonEhczupyDQRWWDWYMH7328-89-40 09:45:00 Test Item Value Reference Range Interpretation Comments RDW (test code = RDW) 15.5 11.5-14.5 [facility] ArlingtonJwrnsvpAAZCHMVBOZ9600-70-81 09:45:00 Test Item Value Reference Range Interpretation Comments Platelet (test code = Platelet) 134 133-450 [facility] ArlingtonXngzpclMCWCUEHWBE5723-91-94 09:45:00 Test Item Value Reference Range Interpretation Comments MPV (test code = MPV) 9.9 7.4-10.4 [facility] ArlingtonUmfwwduFGYDBNDOIS3493-98-26 09:45:00 Test Item Value Reference Range Interpretation Comments Segs (test code = Segs) 62.8 45.0-75.0 [facility] ArlingtonDdaoacxHAKMUQITWH1337-39-04 09:45:00 Test Item Value Reference Range Interpretation Comments Lymphocytes (test code = Lymphocytes) 17.1 20.0-40.0 [facility] ArlingtonCcrvwbdSIWSNDBHRD7768-96-87 09:45:00 Test Item Value Reference Range Interpretation Comments Monocytes (test code = Monocytes) 15.2 2.0-12.0 [place] 579810-10-14 09:45:00 Test Item Value Reference Range Interpretation Comments Eosinophils (test code = 4.1 See_Comment [A utomated message] The Eosinophils) system which ge nerated this result tra nsmitted reference range : <=4.0. The reference r eileen was not used to int erpret this result as normal/abnormal . [place] [address]-10-14 09:45:00 Test Item Value Reference Range Interpretation Comments Basophils (test code = 0.8 See_Comment [Aut omated message] The Basophils) system which ge nerated this result tra nsmitted reference range : <=1.0. The reference r eileen was not used to int erpret this result as normal/abnormal . [facility] ArlingtonJlornaaGEPOVQEZQR4822-24-13 09:45:00 Test Item Value Reference Range Interpretation Comments Neutrophils # (test code = Neutrophils 2.9 1.5-8.1 #) [place] [address]-10-14 09:45:00 Test Item Value Reference Range Interpretation Comments Lymphocytes # (test code = Lymphocytes 0.8 1.0-5.5 #) [place] [address]-10-14 09:45:00 Test Item Value Reference Range Interpretation Comments Monocytes # (test code 0.7 See_Comment [Aut omated message] The = Monocytes #) system which generated this result tra nsmitted reference range : <=0.8. The reference r eileen was not used to int erpret this result as normal/abnormal . [place] [address]-10-14 09:45:00 Test Item Value Reference Range Interpretation Comments Eosinophils # (test code 0.2 See_Comment [A utomated message] The = Eosinophils #) system whic h generated this result tra nsmitted reference range : <=0.5. The reference r eileen was not used to int erpret this result as normal/abnormal . [facility] [id number] 09:45:00 Test Item Value Reference Range Interpretation Comments Glucose Lvl (test code = Glucose Lvl) 83 70-99 [facility] [id number] 09:45:00 Test Item Value Reference Range Interpretation Comments BUN (test code = BUN) 36 7-22 [place] 546840-10-14 09:45:00 Test Item Value Reference Range Interpretation Comments Creatinine Lvl (test code = Creatinine 6.40 0.50-1.40 Lvl) [place] 546840-10-14 09:45:00 Test Item Value Reference Range Interpretation Comments Sodium Lvl (test code = Sodium Lvl) 140 135-145 [place] [address]-10-14 09:45:00 Test Item Value Reference Range Interpretation Comments Potassium Lvl (test code = Potassium 3.6 3.5-5.1 Lvl) [place] 546840-10-14 09:45:00 Test Item Value Reference Range Interpretation Comments Chloride Lvl (test code = Chloride Lvl) 107 95-109 [place] 546840-10-14 09:45:00 Test Item Value Reference Range Interpretation Comments CO2 (test code = CO2) 24 24-32 [place] [address]-10-14 09:45:00 Test Item Value Reference Range Interpretation Comments Calcium Lvl (test code = Calcium Lvl) 9.1 8.5-10.5 [place] 546840-10-14 09:45:00 Test Item Value Reference Range Interpretation Comments AGAP (test code = AGAP) 12.6 10.0-20.0 [place] 546840-10-14 09:45:00 Test Item Value Reference Range Interpretation Comments eGFR (test code = eGFR) 7 [place] 52348020-10-14 09:45:00 Test Item Value Reference Range Interpretation Comments S Preg (test code = S Negative *NA*(04/06/20 Preg) 4:45 AM) [place] [address]-10-14 09:45:00 Test Item Value Reference Range Interpretation Comments WBC (test code = WBC) 4.5 3.7-10.4 [place] 579810-10-14 09:45:00 Test Item Value Reference Range Interpretation Comments RBC (test code = RBC) 3.73 4.20-5.40 [place] 579810-10-14 09:45:00 Test Item Value Reference Range Interpretation Comments Hgb (test code = Hgb) 10.7 12.0-16.0 [place] [address]-10-14 09:45:00 Test Item Value Reference Range Interpretation Comments Hct (test code = Hct) 33.6 36.0-48.0 [place] [address]-10-14 09:45:00 Test Item Value Reference Range Interpretation Comments MCV (test code = MCV) 90.1 80.0-98.0 [place] [address]-10-14 09:45:00 Test Item Value Reference Range Interpretation Comments MCH (test code = MCH) 28.6 pg 27.0-31.0 [place] [address]-10-14 09:45:00 Test Item Value Reference Range Interpretation Comments MCHC (test code = MCHC) 31.8 32.0-36.0 [place] 579810-10-14 09:45:00 Test Item Value Reference Range Interpretation Comments RDW (test code = RDW) 15.5 11.5-14.5 [place] 579810-10-14 09:45:00 Test Item Value Reference Range Interpretation Comments Platelet (test code = Platelet) 134 133-450 [facility]CmfjkrqSLXZWICIUG2716-06-35 09:45:00 Test Item Value Reference Range Interpretation Comments MPV (test code = MPV) 9.9 7.4-10.4 [place] [address]-10-14 09:45:00 Test Item Value Reference Range Interpretation Comments Segs (test code = Segs) 62.8 45.0-75.0 [place] 579810-10-14 09:45:00 Test Item Value Reference Range Interpretation Comments Lymphocytes (test code = Lymphocytes) 17.1 20.0-40.0 [place] [address]-10-14 09:45:00 Test Item Value Reference Range Interpretation Comments Monocytes (test code = Monocytes) 15.2 2.0-12.0 [place] [address]-10-14 09:45:00 Test Item Value Reference Range Interpretation Comments Eosinophils (test code = 4.1 See_Comment [A utomated message] The Eosinophils) system which ge nerated this result tra nsmitted reference range : <=4.0. The reference r eileen was not used to int erpret this result as normal/abnormal . [facility] ArlingtonJumavfaDMLLHXUSZO6535-44-11 09:45:00 Test Item Value Reference Range Interpretation Comments Basophils (test code = 0.8 See_Comment [Aut omated message] The Basophils) system which ge nerated this result tra nsmitted reference range : <=1.0. The reference r eileen was not used to int erpret this result as normal/abnormal . [facility] ArlingtonOfismjxLIVESGMRXA5353-67-01 09:45:00 Test Item Value Reference Range Interpretation Comments Neutrophils # (test code = Neutrophils 2.9 1.5-8.1 #) [facility] ArlingtonTrcqchtDNHIVVXLMN3759-61-83 09:45:00 Test Item Value Reference Range Interpretation Comments Lymphocytes # (test code = Lymphocytes 0.8 1.0-5.5 #) [facility] ArlingtonEkrtcuoEHALLRYNUW9730-84-80 09:45:00 Test Item Value Reference Range Interpretation Comments Monocytes # (test code 0.7 See_Comment [Aut omated message] The = Monocytes #) system which generated this result tra nsmitted reference range : <=0.8. The reference r eileen was not used to int erpret this result as normal/abnormal . [facility] ArlingtonPfzxoixJNHMFNSVVK3427-46-02 09:45:00 Test Item Value Reference Range Interpretation Comments Eosinophils # (test code 0.2 See_Comment [A utomated message] The = Eosinophils #) system whic h generated this result tra nsmitted reference range : <=0.5. The reference r eileen was not used to int erpret this result as normal/abnormal . [facility]KX[facility]KHM[facility]18[facility]45 02:13:00 Test Item Value Reference Range Interpretation Comments Coronavirus (COVID-19) Not Detected KAYLEE (test code = (04/05/20 9:13 PM) Coronavirus (COVID-19) KAYLEE) [place] [address]-10-14 02:13:00 Test Item Value Reference Range Interpretation Comments Coronavirus (COVID-19) Not Detected KAYLEE (test code = (04/05/20 9:13 PM) Coronavirus (COVID-19) KAYLEE) [place] 661030-10-14 02:13:00 Test Item Value Reference Range Interpretation Comments Coronavirus (COVID-19) Not Detected KAYLEE (test code = (04/05/20 9:13 PM) Coronavirus (COVID-19) KAYLEE) [place] [address]-10-14 02:13:00 Test Item Value Reference Range Interpretation Comments Coronavirus (COVID-19) Not Detected KAYLEE (test code = (04/05/20 9:13 PM) Coronavirus (COVID-19) KAYLEE) [facility]NmfxjqxWEOFBKNPIQ5523-34-21 02:13:00 Test Item Value Reference Range Interpretation Comments Coronavirus (COVID-19) Not Detected KAYLEE (test code = (04/05/20 9:13 PM) Coronavirus (COVID-19) KAYLEE) [facility] [id number] 23:26:00 Test Item Value Reference Range Interpretation Comments Total Protein (test code = Total 7.7 6.4-8.4 Protein) [facility] [id number] 23:26:00 Test Item Value Reference Range Interpretation Comments Albumin Lvl (test code = Albumin Lvl) 3.9 3.5-5.0 [facility] [id number] 23:26:00 Test Item Value Reference Range Interpretation Comments ALT (test code = ALT) 40 See_Comment [Auto mated message] The system which ge nerated this result transmit melquiades reference range : <=65. The reference range was not used to interpr et this result as anu l/abnormal. [facility] [id number] 23:26:00 Test Item Value Reference Range Interpretation Comments AST (test code = AST) 38 See_Comment [Auto mated message] The system which ge nerated this result transmit melquiades reference range : <=37. The reference range was not used to interpr et this result as anu l/abnormal. [facility] [id number] 23:26:00 Test Item Value Reference Range Interpretation Comments Alk Phos (test code = Alk Phos) 92 39-136 [facility] [id number] 23:26:00 Test Item Value Reference Range Interpretation Comments Bili Total (test code = Bili Total) 1.2 0.2-1.3 [facility] [employer] [id number] 23:26:00 Test Item Value Reference Range Interpretation Comments B/C Ratio (test code = B/C Ratio) 5 1 6-25 [facility] [id number] 23:26:00 Test Item Value Reference Range Interpretation Comments Globulin (test code = Globulin) 3.8 2.7-4.2 [facility] [id number] 23:26:00 Test Item Value Reference Range Interpretation Comments A/G Ratio (test code = A/G Ratio) 1.0 1 0.7-1.6 [place] [address]-10-13 23:26:00 Test Item Value Reference Range Interpretation Comments PT (test code = PT) 15.2 s 12.0-14.7 [facility]nbmnzmZBIVPHHQST2654-36-95 23:26:00 Test Item Value Reference Range Interpretation Comments INR (test code = INR) 1.19 1 0.85-1.17 [facility]kubrvqGJRWJYGCFV9595-42-32 23:26:00 Test Item Value Reference Range Interpretation Comments PTT (test code = PTT) 23.3 s 22.9-35.8 [facility] [id number] 23:26:00 Test Item Value Reference Range Interpretation Comments Total Protein (test code = Total 7.7 6.4-8.4 Protein) [facility] [id number] 23:26:00 Test Item Value Reference Range Interpretation Comments Albumin Lvl (test code = Albumin Lvl) 3.9 3.5-5.0 [facility] [id number] 23:26:00 Test Item Value Reference Range Interpretation Comments ALT (test code = ALT) 40 See_Comment [Auto mated message] The system which ge nerated this result transmit melquiades reference range : <=65. The reference range was not used to interpr et this result as anu l/abnormal. [facility] [id number] 23:26:00 Test Item Value Reference Range Interpretation Comments AST (test code = AST) 38 See_Comment [Auto mated message] The system which ge nerated this result transmit melquiades reference range : <=37. The reference range was not used to interpr et this result as anu l/abnormal. [facility] [id number] 23:26:00 Test Item Value Reference Range Interpretation Comments Alk Phos (test code = Alk Phos) 92 39-136 [facility] [id number] 23:26:00 Test Item Value Reference Range Interpretation Comments Bili Total (test code = Bili Total) 1.2 0.2-1.3 [facility] [employer]2020-10-13 23:26:00 Test Item Value Reference Range Interpretation Comments B/C Ratio (test code = B/C Ratio) 5 1 6-25 [place] [address]-13 23:26:00 Test Item Value Reference Range Interpretation Comments Globulin (test code = Globulin) 3.8 2.7-4.2 [place] [address]-13 23:26:00 Test Item Value Reference Range Interpretation Comments A/G Ratio (test code = A/G Ratio) 1.0 1 0.7-1.6 [place] [address]-13 23:26:00 Test Item Value Reference Range Interpretation Comments PT (test code = PT) 15.2 s 12.0-14.7 [place] [address]-13 23:26:00 Test Item Value Reference Range Interpretation Comments INR (test code = INR) 1.19 1 0.85-1.17 [place] [address]-13 23:26:00 Test Item Value Reference Range Interpretation Comments PTT (test code = PTT) 23.3 s 22.9-35.8 [facility] [id number] 23:26:00 Test Item Value Reference Range Interpretation Comments Total Protein (test code = Total 7.7 6.4-8.4 Protein) [place] [address]-13 23:26:00 Test Item Value Reference Range Interpretation Comments Albumin Lvl (test code = Albumin Lvl) 3.9 3.5-5.0 [place] [address]-13 23:26:00 Test Item Value Reference Range Interpretation Comments ALT (test code = ALT) 40 See_Comment [Auto mated message] The system which ge nerated this result transmit melquiades reference range : <=65. The reference range was not used to interpr et this result as anu l/abnormal. [facility] [id number] 23:26:00 Test Item Value Reference Range Interpretation Comments AST (test code = AST) 38 See_Comment [Auto mated message] The system which ge nerated this result transmit melquiades reference range : <=37. The reference range was not used to interpr et this result as anu l/abnormal. [facility] [id number] 23:26:00 Test Item Value Reference Range Interpretation Comments Alk Phos (test code = Alk Phos) 92 39-136 [place] 546840-10-13 23:26:00 Test Item Value Reference Range Interpretation Comments Bili Total (test code = Bili Total) 1.2 0.2-1.3 [place] [address]-10-13 23:26:00 Test Item Value Reference Range Interpretation Comments B/C Ratio (test code = B/C Ratio) 5 1 6-25 [place] [address]-10-13 23:26:00 Test Item Value Reference Range Interpretation Comments Globulin (test code = Globulin) 3.8 2.7-4.2 [place] [address]-10-13 23:26:00 Test Item Value Reference Range Interpretation Comments A/G Ratio (test code = A/G Ratio) 1.0 1 0.7-1.6 [place] [address]-10-13 23:26:00 Test Item Value Reference Range Interpretation Comments PT (test code = PT) 15.2 s 12.0-14.7 [place] [address]-10-13 23:26:00 Test Item Value Reference Range Interpretation Comments INR (test code = INR) 1.19 1 0.85-1.17 [place] [address]-10-13 23:26:00 Test Item Value Reference Range Interpretation Comments PTT (test code = PTT) 23.3 s 22.9-35.8 [place] [address]-10-13 23:26:00 Test Item Value Reference Range Interpretation Comments Total Protein (test code = Total 7.7 6.4-8.4 Protein) [place] [address]-10-13 23:26:00 Test Item Value Reference Range Interpretation Comments Albumin Lvl (test code = Albumin Lvl) 3.9 3.5-5.0 [place] [address]-10-13 23:26:00 Test Item Value Reference Range Interpretation Comments ALT (test code = ALT) 40 See_Comment [Auto mated message] The system which ge nerated this result transmit melquiades reference range : <=65. The reference range was not used to interpr et this result as anu l/abnormal. [place] [address]-10-13 23:26:00 Test Item Value Reference Range Interpretation Comments AST (test code = AST) 38 See_Comment [Auto mated message] The system which ge nerated this result transmit melquiades reference range : <=37. The reference range was not used to interpr et this result as anu l/abnormal. [facility] [id number] 23:26:00 Test Item Value Reference Range Interpretation Comments Alk Phos (test code = Alk Phos) 92 39-136 [facility] [id number] 23:26:00 Test Item Value Reference Range Interpretation Comments Bili Total (test code = Bili Total) 1.2 0.2-1.3 [facility] [id number] 23:26:00 Test Item Value Reference Range Interpretation Comments B/C Ratio (test code = B/C Ratio) 5 1 6-25 [facility] [id number] 23:26:00 Test Item Value Reference Range Interpretation Comments Globulin (test code = Globulin) 3.8 2.7-4.2 [facility] [id number] 23:26:00 Test Item Value Reference Range Interpretation Comments A/G Ratio (test code = A/G Ratio) 1.0 1 0.7-1.6 [facility] SouthRcxhucoIUMHQIMQKV0639-04-90 23:26:00 Test Item Value Reference Range Interpretation Comments PT (test code = PT) 15.2 s 12.0-14.7 [facility] SouthIbnzizjOYUQSKVEBK2954-30-80 23:26:00 Test Item Value Reference Range Interpretation Comments INR (test code = INR) 1.19 1 0.85-1.17 [facility] SouthZfepmoqHZKDZSGTSD1656-66-30 23:26:00 Test Item Value Reference Range Interpretation Comments PTT (test code = PTT) 23.3 s 22.9-35.8 [facility] [id number] 23:26:00 Test Item Value Reference Range Interpretation Comments Total Protein (test code = Total 7.7 6.4-8.4 Protein) [facility] [id number] 23:26:00 Test Item Value Reference Range Interpretation Comments Albumin Lvl (test code = Albumin Lvl) 3.9 3.5-5.0 [facility] [id number] 23:26:00 Test Item Value Reference Range Interpretation Comments ALT (test code = ALT) 40 See_Comment [Auto mated message] The system which ge nerated this result transmit melquiades reference range : <=65. The reference range was not used to interpr et this result as anu l/abnormal. [facility] [id number] 23:26:00 Test Item Value Reference Range Interpretation Comments AST (test code = AST) 38 See_Comment [Auto mated message] The system which ge nerated this result transmit melquiades reference range : <=37. The reference range was not used to interpr et this result as anu l/abnormal. [facility] [id number] 23:26:00 Test Item Value Reference Range Interpretation Comments Alk Phos (test code = Alk Phos) 92 39-136 [facility] [id number] 23:26:00 Test Item Value Reference Range Interpretation Comments Bili Total (test code = Bili Total) 1.2 0.2-1.3 [facility] [id number] 23:26:00 Test Item Value Reference Range Interpretation Comments B/C Ratio (test code = B/C Ratio) 5 1 6-25 [facility] [id number] 23:26:00 Test Item Value Reference Range Interpretation Comments Globulin (test code = Globulin) 3.8 2.7-4.2 [facility] [id number] 23:26:00 Test Item Value Reference Range Interpretation Comments A/G Ratio (test code = A/G Ratio) 1.0 1 0.7-1.6 [facility]CCGWL[facility]UD4488-93-09 23:26:00 Test Item Value Reference Range Interpretation Comments PT (test code = PT) 15.2 s 12.0-14.7 [facility] SouthFldpzxeOUTSWQONKT1191-25-19 23:26:00 Test Item Value Reference Range Interpretation Comments INR (test code = INR) 1.19 1 0.85-1.17 [facility]ixibnDFPSRJLBGN0771-16-26 23:26:00 Test Item Value Reference Range Interpretation Comments PTT (test code = PTT) 23.3 s 22.9-35.8 [facility] QPJPP6420-01-93 10:53:00 Test Item Value Reference Range Interpretation Comments eGFR (test code = eGFR) 13 [facility] XZIZV4911-11-16 10:53:00 Test Item Value Reference Range Interpretation Comments Sodium Lvl (test code = Sodium Lvl) 141 135-145 [facility]2019-07-28 10:53:00 Test Item Value Reference Range Interpretation Comments Creatinine Lvl (test code = Creatinine 3.85 0.50-1.40 Lvl) [facility]2019-07-28 10:53:00 Test Item Value Reference Range Interpretation Comments Glucose Lvl (test code = Glucose Lvl) 102 70-99 [facility]2019-07-28 10:53:00 Test Item Value Reference Range Interpretation Comments BUN (test code = BUN) 19 7-22 [facility]2019-07-28 10:53:00 Test Item Value Reference Range Interpretation Comments Calcium Lvl (test code = Calcium Lvl) 8.6 8.5-10.5 [facility]2019-07-28 10:53:00 Test Item Value Reference Range Interpretation Comments Chloride Lvl (test code = Chloride Lvl) 107 95-109 [facility]2019-07-28 10:53:00 Test Item Value Reference Range Interpretation Comments CO2 (test code = CO2) 29 24-32 [facility]2019-07-28 10:53:00 Test Item Value Reference Range Interpretation Comments Potassium Lvl (test code = Potassium 3.7 3.5-5.1 Lvl) [facility]2019-07-28 10:53:00 Test Item Value Reference Range Interpretation Comments AGAP (test code = AGAP) 8.7 10.0-20.0 [facility]ytptdYLQZJGTFLU6424-04-98 10:53:00 Test Item Value Reference Range Interpretation Comments Segs (test code = Segs) 64.4 45.0-75.0 [facility] ArlingtonZirzpshZINHRFIFJB8753-86-16 10:53:00 Test Item Value Reference Range Interpretation Comments Eosinophils (test code = 3.7 See_Comment [A utomated message] The Eosinophils) system which ge nerated this result tra nsmitted reference range : <=4.0. The reference r eileen was not used to int erpret this result as normal/abnormal . [facility] ArlingtonYlhgqgnNVKCFVWAGZ9357-80-64 10:53:00 Test Item Value Reference Range Interpretation Comments Monocytes (test code = Monocytes) 21.0 2.0-12.0 [facility] ArlingtonPvrkxphFKFBURXYOL5061-76-08 10:53:00 Test Item Value Reference Range Interpretation Comments Basophils (test code = 0.7 See_Comment [Aut omated message] The Basophils) system which ge nerated this result tra nsmitted reference range : <=1.0. The reference r eileen was not used to int erpret this result as normal/abnormal . [facility] ArlingtonJoyitavMGPUEOTNQK6175-65-63 10:53:00 Test Item Value Reference Range Interpretation Comments Lymphocytes (test code = Lymphocytes) 10.2 20.0-40.0 [facility] ArlingtonOstxklqXXXAGWGUGV8420-98-76 10:53:00 Test Item Value Reference Range Interpretation Comments Neutrophils # (test code = Neutrophils 4.5 1.5-8.1 #) [facility] ArlingtonTbwvtxlXLJQXLXDMW3820-87-71 10:53:00 Test Item Value Reference Range Interpretation Comments Lymphocytes # (test code = Lymphocytes 0.7 1.0-5.5 #) [facility] ArlingtonKmpfcjcVCREPTCXGB0005-31-62 10:53:00 Test Item Value Reference Range Interpretation Comments Eosinophils # (test code 0.3 See_Comment [A utomated message] The = Eosinophils #) system whic h generated this result tra nsmitted reference range : <=0.5. The reference r eileen was not used to int erpret this result as normal/abnormal . [facility] ArlingtonTwmyerxIVDPLTCNWA1127-90-64 10:53:00 Test Item Value Reference Range Interpretation Comments Monocytes # (test code 1.5 See_Comment [Aut omated message] The = Monocytes #) system which generated this result tra nsmitted reference range : <=0.8. The reference r eileen was not used to int erpret this result as normal/abnormal . [facility] ArlingtonJepukxdWVVMERNDIQ0733-24-03 10:53:00 Test Item Value Reference Range Interpretation Comments WBC (test code = WBC) 7.0 3.7-10.4 [facility] ArlingtonDlisevyCVSIEWULTZ6213-41-68 10:53:00 Test Item Value Reference Range Interpretation Comments RBC (test code = RBC) 2.62 4.20-5.40 [facility] ArlingtonIedfogsGOTJFUJPUE9774-63-07 10:53:00 Test Item Value Reference Range Interpretation Comments Hgb (test code = Hgb) 7.6 12.0-16.0 [facility] ArlingtonGoizuprBKEQSQEJVS9373-34-90 10:53:00 Test Item Value Reference Range Interpretation Comments Hct (test code = Hct) 22.6 36.0-48.0 [facility] ArlingtonBtkhknmFLFFPHESWU5951-58-21 10:53:00 Test Item Value Reference Range Interpretation Comments MCV (test code = MCV) 86.4 80.0-98.0 [facility] ArlingtonJbpeiglUWMEVSLIRH7091-12-83 10:53:00 Test Item Value Reference Range Interpretation Comments MCHC (test code = MCHC) 33.6 32.0-36.0 [facility] ArlingtonEjrmfbeBKYOCYFWUQ8923-39-62 10:53:00 Test Item Value Reference Range Interpretation Comments MCH (test code = MCH) 29.0 pg 27.0-31.0 [facility] ArlingtonByxrioeWCBBIZTBBC5504-81-51 10:53:00 Test Item Value Reference Range Interpretation Comments RDW (test code = RDW) 15.8 11.5-14.5 [facility] ArlingtonEgeidalVYPIEEPTCH8343-33-30 10:53:00 Test Item Value Reference Range Interpretation Comments MPV (test code = MPV) 9.7 7.4-10.4 [facility] ArlingtonZtrbbrzDVCINVVJTD0504-64-15 10:53:00 Test Item Value Reference Range Interpretation Comments Platelet (test code = Platelet) 98 133-450 [facility]2019-07-28 10:53:00 Test Item Value Reference Range Interpretation Comments eGFR (test code = eGFR) 13 [facility]2019-07-28 10:53:00 Test Item Value Reference Range Interpretation Comments Sodium Lvl (test code = Sodium Lvl) 141 135-145 [facility]2019-07-28 10:53:00 Test Item Value Reference Range Interpretation Comments Creatinine Lvl (test code = Creatinine 3.85 0.50-1.40 Lvl) [facility]2019-07-28 10:53:00 Test Item Value Reference Range Interpretation Comments Glucose Lvl (test code = Glucose Lvl) 102 70-99 [facility]2019-07-28 10:53:00 Test Item Value Reference Range Interpretation Comments BUN (test code = BUN) 19 7-22 [facility]2019-07-28 10:53:00 Test Item Value Reference Range Interpretation Comments Calcium Lvl (test code = Calcium Lvl) 8.6 8.5-10.5 [facility]2019-07-28 10:53:00 Test Item Value Reference Range Interpretation Comments Chloride Lvl (test code = Chloride Lvl) 107 95-109 [facility]2019-07-28 10:53:00 Test Item Value Reference Range Interpretation Comments CO2 (test code = CO2) 29 24-32 [facility]2019-07-28 10:53:00 Test Item Value Reference Range Interpretation Comments Potassium Lvl (test code = Potassium 3.7 3.5-5.1 Lvl) [facility]2019-07-28 10:53:00 Test Item Value Reference Range Interpretation Comments AGAP (test code = AGAP) 8.7 10.0-20.0 [facility] ArlingtonRamnzouFZXRPFNMXA5469-26-40 10:53:00 Test Item Value Reference Range Interpretation Comments Segs (test code = Segs) 64.4 45.0-75.0 [facility] ArlingtonZtymglxQURYQJWHRG2415-55-33 10:53:00 Test Item Value Reference Range Interpretation Comments Eosinophils (test code = 3.7 See_Comment [A utomated message] The Eosinophils) system which ge nerated this result tra nsmitted reference range : <=4.0. The reference r eileen was not used to int erpret this result as normal/abnormal . [facility] ArlingtonAhkijwvXDDOAQNTTV5482-84-36 10:53:00 Test Item Value Reference Range Interpretation Comments Monocytes (test code = Monocytes) 21.0 2.0-12.0 [facility] ArlingtonIryysgxCSQDYSYYUW8918-52-27 10:53:00 Test Item Value Reference Range Interpretation Comments Basophils (test code = 0.7 See_Comment [Aut omated message] The Basophils) system which ge nerated this result tra nsmitted reference range : <=1.0. The reference r eileen was not used to int erpret this result as normal/abnormal . [facility] ArlingtonIqomslfEGISGSNSRH9369-55-60 10:53:00 Test Item Value Reference Range Interpretation Comments Lymphocytes (test code = Lymphocytes) 10.2 20.0-40.0 [facility] ArlingtonWngdotvLNXKJDCUUR1245-61-29 10:53:00 Test Item Value Reference Range Interpretation Comments Neutrophils # (test code = Neutrophils 4.5 1.5-8.1 #) [facility] ArlingtonEyoyikrFNAKAZXOJF3071-34-59 10:53:00 Test Item Value Reference Range Interpretation Comments Lymphocytes # (test code = Lymphocytes 0.7 1.0-5.5 #) [facility] ArlingtonUzjmzjnIAAFTBRNXN3455-55-21 10:53:00 Test Item Value Reference Range Interpretation Comments Eosinophils # (test code 0.3 See_Comment [A utomated message] The = Eosinophils #) system whic h generated this result tra nsmitted reference range : <=0.5. The reference r eileen was not used to int erpret this result as normal/abnormal . [facility] ArlingtonUpuqhbpFLNMFWRIXM0173-98-95 10:53:00 Test Item Value Reference Range Interpretation Comments Monocytes # (test code 1.5 See_Comment [Aut omated message] The = Monocytes #) system which generated this result tra nsmitted reference range : <=0.8. The reference r eileen was not used to int erpret this result as normal/abnormal . [facility] ArlingtonHrlinhsHUUTHUKXTD2442-70-40 10:53:00 Test Item Value Reference Range Interpretation Comments WBC (test code = WBC) 7.0 3.7-10.4 [facility] ArlingtonUzvupwlSNYXTPGDYZ7174-68-67 10:53:00 Test Item Value Reference Range Interpretation Comments RBC (test code = RBC) 2.62 4.20-5.40 [facility] ArlingtonQonuhvsLCMKERDOUS9091-45-73 10:53:00 Test Item Value Reference Range Interpretation Comments Hgb (test code = Hgb) 7.6 12.0-16.0 [facility] ArlingtonOscwaxiJOGGBZQYGG2043-10-07 10:53:00 Test Item Value Reference Range Interpretation Comments Hct (test code = Hct) 22.6 36.0-48.0 [facility] ArlingtonDckqbxaHRMIIZLEHL5260-51-13 10:53:00 Test Item Value Reference Range Interpretation Comments MCV (test code = MCV) 86.4 80.0-98.0 [facility] ArlingtonPkznnfpQDFKRBBRCB0773-25-63 10:53:00 Test Item Value Reference Range Interpretation Comments MCHC (test code = MCHC) 33.6 32.0-36.0 [facility] ArlingtonDskpwuuZKJASJTTYA5386-13-81 10:53:00 Test Item Value Reference Range Interpretation Comments MCH (test code = MCH) 29.0 pg 27.0-31.0 [facility] ArlingtonHrpldjwRQNKSNDWUK5306-89-11 10:53:00 Test Item Value Reference Range Interpretation Comments RDW (test code = RDW) 15.8 11.5-14.5 [facility] ArlingtonOkqwkzdHEJQSCRAZH4827-00-24 10:53:00 Test Item Value Reference Range Interpretation Comments MPV (test code = MPV) 9.7 7.4-10.4 [facility] ArlingtonThbmhjoMLYDPPOZSA3122-78-63 10:53:00 Test Item Value Reference Range Interpretation Comments Platelet (test code = Platelet) 98 133-450 [facility]2019-07-28 10:53:00 Test Item Value Reference Range Interpretation Comments eGFR (test code = eGFR) 13 [facility]2019-07-28 10:53:00 Test Item Value Reference Range Interpretation Comments Sodium Lvl (test code = Sodium Lvl) 141 135-145 [facility]2019-07-28 10:53:00 Test Item Value Reference Range Interpretation Comments Creatinine Lvl (test code = Creatinine 3.85 0.50-1.40 Lvl) [facility]2019-07-28 10:53:00 Test Item Value Reference Range Interpretation Comments Glucose Lvl (test code = Glucose Lvl) 102 70-99 [facility]2019-07-28 10:53:00 Test Item Value Reference Range Interpretation Comments BUN (test code = BUN) 19 7-22 [facility]2019-07-28 10:53:00 Test Item Value Reference Range Interpretation Comments Calcium Lvl (test code = Calcium Lvl) 8.6 8.5-10.5 [facility]2019-07-28 10:53:00 Test Item Value Reference Range Interpretation Comments Chloride Lvl (test code = Chloride Lvl) 107 95-109 [facility]2019-07-28 10:53:00 Test Item Value Reference Range Interpretation Comments CO2 (test code = CO2) 29 24-32 [facility]2019-07-28 10:53:00 Test Item Value Reference Range Interpretation Comments Potassium Lvl (test code = Potassium 3.7 3.5-5.1 Lvl) [facility]2019-07-28 10:53:00 Test Item Value Reference Range Interpretation Comments AGAP (test code = AGAP) 8.7 10.0-20.0 [facility] ArlingtonTsxkmnuYLYFPRDDIV6698-58-31 10:53:00 Test Item Value Reference Range Interpretation Comments Segs (test code = Segs) 64.4 45.0-75.0 [facility] ArlingtonRhacufvCJUKQICXKE0986-74-75 10:53:00 Test Item Value Reference Range Interpretation Comments Eosinophils (test code = 3.7 See_Comment [A utomated message] The Eosinophils) system which ge nerated this result tra nsmitted reference range : <=4.0. The reference r eileen was not used to int erpret this result as normal/abnormal . [facility] ArlingtonNjfhagsYTWUITMTRV5126-66-28 10:53:00 Test Item Value Reference Range Interpretation Comments Monocytes (test code = Monocytes) 21.0 2.0-12.0 [facility] ArlingtonDfzrsuzYICJVEMCDH3766-33-09 10:53:00 Test Item Value Reference Range Interpretation Comments Basophils (test code = 0.7 See_Comment [Aut omated message] The Basophils) system which ge nerated this result tra nsmitted reference range : <=1.0. The reference r eileen was not used to int erpret this result as normal/abnormal . [facility] ArlingtonEkfvthgJXQPCTVNHJ4239-93-72 10:53:00 Test Item Value Reference Range Interpretation Comments Lymphocytes (test code = Lymphocytes) 10.2 20.0-40.0 [facility] ArlingtonAxggapyOLEOVCNXLL2348-83-89 10:53:00 Test Item Value Reference Range Interpretation Comments Neutrophils # (test code = Neutrophils 4.5 1.5-8.1 #) [facility] ArlingtonFithdptTUFRKDFRZM5895-03-46 10:53:00 Test Item Value Reference Range Interpretation Comments Lymphocytes # (test code = Lymphocytes 0.7 1.0-5.5 #) [facility] ArlingtonPjbawrgGGTMLWDAZO4947-21-02 10:53:00 Test Item Value Reference Range Interpretation Comments Eosinophils # (test code 0.3 See_Comment [A utomated message] The = Eosinophils #) system whic h generated this result tra nsmitted reference range : <=0.5. The reference r eileen was not used to int erpret this result as normal/abnormal . [facility] ArlingtonBaeqgydAPSBVHIYVT7114-71-03 10:53:00 Test Item Value Reference Range Interpretation Comments Monocytes # (test code 1.5 See_Comment [Aut omated message] The = Monocytes #) system which generated this result tra nsmitted reference range : <=0.8. The reference r eileen was not used to int erpret this result as normal/abnormal . [facility] ArlingtonLehypomLXVECQJNQC2119-34-75 10:53:00 Test Item Value Reference Range Interpretation Comments WBC (test code = WBC) 7.0 3.7-10.4 [facility] ArlingtonDhejdprRLDGFQRJJN6461-81-13 10:53:00 Test Item Value Reference Range Interpretation Comments RBC (test code = RBC) 2.62 4.20-5.40 [facility] ArlingtonFdgzyaqFPOBCQPTTP3181-04-70 10:53:00 Test Item Value Reference Range Interpretation Comments Hgb (test code = Hgb) 7.6 12.0-16.0 [facility] ArlingtonTdbzdrgTNVHKKYTHQ7886-90-58 10:53:00 Test Item Value Reference Range Interpretation Comments Hct (test code = Hct) 22.6 36.0-48.0 [facility] ArlingtonGhovepaITRNTSLYFY5863-59-17 10:53:00 Test Item Value Reference Range Interpretation Comments MCV (test code = MCV) 86.4 80.0-98.0 [facility] ArlingtonTknpzzqBPROQGCRLQ8351-66-64 10:53:00 Test Item Value Reference Range Interpretation Comments MCHC (test code = MCHC) 33.6 32.0-36.0 [facility] ArlingtonAfqtwriONSKYUMFEB8920-01-67 10:53:00 Test Item Value Reference Range Interpretation Comments MCH (test code = MCH) 29.0 pg 27.0-31.0 [facility] ArlingtonVsdlefgRIOOPTSZDM0443-77-71 10:53:00 Test Item Value Reference Range Interpretation Comments RDW (test code = RDW) 15.8 11.5-14.5 [facility] ArlingtonTznowodKQNPSGIHGN4108-21-74 10:53:00 Test Item Value Reference Range Interpretation Comments MPV (test code = MPV) 9.7 7.4-10.4 [facility] ArlingtonStxirqnZZYYHBNQZB7688-02-69 10:53:00 Test Item Value Reference Range Interpretation Comments Platelet (test code = Platelet) 98 133-450 [facility]2019-07-28 10:53:00 Test Item Value Reference Range Interpretation Comments eGFR (test code = eGFR) 13 [facility]2019-07-28 10:53:00 Test Item Value Reference Range Interpretation Comments Sodium Lvl (test code = Sodium Lvl) 141 135-145 [facility]2019-07-28 10:53:00 Test Item Value Reference Range Interpretation Comments Creatinine Lvl (test code = Creatinine 3.85 0.50-1.40 Lvl) [facility]2019-07-28 10:53:00 Test Item Value Reference Range Interpretation Comments Glucose Lvl (test code = Glucose Lvl) 102 70-99 [facility]2019-07-28 10:53:00 Test Item Value Reference Range Interpretation Comments BUN (test code = BUN) 19 7-22 [facility]2019-07-28 10:53:00 Test Item Value Reference Range Interpretation Comments Calcium Lvl (test code = Calcium Lvl) 8.6 8.5-10.5 [facility]2019-07-28 10:53:00 Test Item Value Reference Range Interpretation Comments Chloride Lvl (test code = Chloride Lvl) 107 95-109 [facility]2019-07-28 10:53:00 Test Item Value Reference Range Interpretation Comments CO2 (test code = CO2) 29 24-32 [facility]2019-07-28 10:53:00 Test Item Value Reference Range Interpretation Comments Potassium Lvl (test code = Potassium 3.7 3.5-5.1 Lvl) [facility]2019-07-28 10:53:00 Test Item Value Reference Range Interpretation Comments AGAP (test code = AGAP) 8.7 10.0-20.0 [facility] ArlingtonKihuycwNFCIUFIMCE9219-05-08 10:53:00 Test Item Value Reference Range Interpretation Comments Segs (test code = Segs) 64.4 45.0-75.0 [facility] ArlingtonFdleyveXNCHBGACLN4479-65-05 10:53:00 Test Item Value Reference Range Interpretation Comments Eosinophils (test code = 3.7 See_Comment [A utomated message] The Eosinophils) system which ge nerated this result tra nsmitted reference range : <=4.0. The reference r eileen was not used to int erpret this result as normal/abnormal . [facility] ArlingtonLnkmmzyPVWLOYHYRC1002-71-19 10:53:00 Test Item Value Reference Range Interpretation Comments Monocytes (test code = Monocytes) 21.0 2.0-12.0 [facility] ArlingtonLivkvmoUTSEPGLUJW2243-27-95 10:53:00 Test Item Value Reference Range Interpretation Comments Basophils (test code = 0.7 See_Comment [Aut omated message] The Basophils) system which ge nerated this result tra nsmitted reference range : <=1.0. The reference r eileen was not used to int erpret this result as normal/abnormal . [facility] ArlingtonQrbrfbySFVIVGLWTT1565-20-84 10:53:00 Test Item Value Reference Range Interpretation Comments Lymphocytes (test code = Lymphocytes) 10.2 20.0-40.0 [facility] ArlingtonBqwqzowZCMBMKDEUS5177-17-17 10:53:00 Test Item Value Reference Range Interpretation Comments Neutrophils # (test code = Neutrophils 4.5 1.5-8.1 #) [facility] ArlingtonRccotipBWTUMPNBDC4795-85-09 10:53:00 Test Item Value Reference Range Interpretation Comments Lymphocytes # (test code = Lymphocytes 0.7 1.0-5.5 #) [facility] ArlingtonDthnoayCXRPDJZWLF7289-05-32 10:53:00 Test Item Value Reference Range Interpretation Comments Eosinophils # (test code 0.3 See_Comment [A utomated message] The = Eosinophils #) system wh h generated this result tra nsmitted reference range : <=0.5. The reference r eileen was not used to int erpret this result as normal/abnormal . [facility] ArlingtonYcufuypYNVCJEDFFA0450-60-32 10:53:00 Test Item Value Reference Range Interpretation Comments Monocytes # (test code 1.5 See_Comment [Aut omated message] The = Monocytes #) system which generated this result tra nsmitted reference range : <=0.8. The reference r eileen was not used to int erpret this result as normal/abnormal . [facility] ArlingtonLfnpvwrUHQJSKHYDI2908-12-15 10:53:00 Test Item Value Reference Range Interpretation Comments WBC (test code = WBC) 7.0 3.7-10.4 [facility] ArlingtonVkkqyciCTABPKASJO9038-25-10 10:53:00 Test Item Value Reference Range Interpretation Comments RBC (test code = RBC) 2.62 4.20-5.40 [facility] ArlingtonSmfmhqjUJAQQDHGFK5570-22-94 10:53:00 Test Item Value Reference Range Interpretation Comments Hgb (test code = Hgb) 7.6 12.0-16.0 [facility] ArlingtonHfgaijpDLSTRKMMAN6841-23-69 10:53:00 Test Item Value Reference Range Interpretation Comments Hct (test code = Hct) 22.6 36.0-48.0 [facility] ArlingtonBaiyewqNZXZEGGUHG7076-46-00 10:53:00 Test Item Value Reference Range Interpretation Comments MCV (test code = MCV) 86.4 80.0-98.0 [facility] ArlingtonNfrwmulLRADPPSHKS6770-86-22 10:53:00 Test Item Value Reference Range Interpretation Comments MCHC (test code = MCHC) 33.6 32.0-36.0 [facility] ArlingtonYgovkgqENPNMZSWTT8522-53-40 10:53:00 Test Item Value Reference Range Interpretation Comments MCH (test code = MCH) 29.0 pg 27.0-31.0 [facility] ArlingtonWipscqqMUJXEYQPFN5776-40-08 10:53:00 Test Item Value Reference Range Interpretation Comments RDW (test code = RDW) 15.8 11.5-14.5 [facility] ArlingtonHzmyqljZOFQUSAISH6809-65-32 10:53:00 Test Item Value Reference Range Interpretation Comments MPV (test code = MPV) 9.7 7.4-10.4 [facility] ArlingtonKtteiwrUDNQLHSDQM2544-75-29 10:53:00 Test Item Value Reference Range Interpretation Comments Platelet (test code = Platelet) 98 133-450 [facility]2019-07-28 10:53:00 Test Item Value Reference Range Interpretation Comments eGFR (test code = eGFR) 13 [facility]2019-07-28 10:53:00 Test Item Value Reference Range Interpretation Comments Sodium Lvl (test code = Sodium Lvl) 141 135-145 [facility]2019-07-28 10:53:00 Test Item Value Reference Range Interpretation Comments Creatinine Lvl (test code = Creatinine 3.85 0.50-1.40 Lvl) [facility]2019-07-28 10:53:00 Test Item Value Reference Range Interpretation Comments Glucose Lvl (test code = Glucose Lvl) 102 70-99 [facility]2019-07-28 10:53:00 Test Item Value Reference Range Interpretation Comments BUN (test code = BUN) 19 7- [facility]2019-07-28 10:53:00 Test Item Value Reference Range Interpretation Comments Calcium Lvl (test code = Calcium Lvl) 8.6 8.5-10.5 [facility]2019-07-28 10:53:00 Test Item Value Reference Range Interpretation Comments Chloride Lvl (test code = Chloride Lvl) 107 95-109 [facility]2019-07-28 10:53:00 Test Item Value Reference Range Interpretation Comments CO2 (test code = CO2) 29 24-32 [facility]2019-07-28 10:53:00 Test Item Value Reference Range Interpretation Comments Potassium Lvl (test code = Potassium 3.7 3.5-5.1 Lvl) [facility]2019-07-28 10:53:00 Test Item Value Reference Range Interpretation Comments AGAP (test code = AGAP) 8.7 10.0-20.0 [facility] ArlingtonAsuabxzUPIDDMVVNZ1923-18-97 10:53:00 Test Item Value Reference Range Interpretation Comments Segs (test code = Segs) 64.4 45.0-75.0 [facility] ArlingtonCnctlciYRUMWRJTXY0201-58-47 10:53:00 Test Item Value Reference Range Interpretation Comments Eosinophils (test code = 3.7 See_Comment [A utomated message] The Eosinophils) system which ge nerated this result tra nsmitted reference range : <=4.0. The reference r eileen was not used to int erpret this result as normal/abnormal . [facility] ArlingtonNnhfdjvWUTAHHOPIP0163-74-04 10:53:00 Test Item Value Reference Range Interpretation Comments Monocytes (test code = Monocytes) 21.0 2.0-12.0 [facility] ArlingtonKpvalgtWYRZEXUIZJ6659-16-22 10:53:00 Test Item Value Reference Range Interpretation Comments Basophils (test code = 0.7 See_Comment [Aut omated message] The Basophils) system which ge nerated this result tra nsmitted reference range : <=1.0. The reference r eileen was not used to int erpret this result as normal/abnormal . [facility] ArlingtonWcdeupmCXMCKDRGQY9646-91-91 10:53:00 Test Item Value Reference Range Interpretation Comments Lymphocytes (test code = Lymphocytes) 10.2 20.0-40.0 [facility]WstokijSUTQJWEFHJ9706-41-13 10:53:00 Test Item Value Reference Range Interpretation Comments Neutrophils # (test code = Neutrophils 4.5 1.5-8.1 #) [facility] ArlingtonBnwvyrsFXTXNUDZYU0217-83-85 10:53:00 Test Item Value Reference Range Interpretation Comments Lymphocytes # (test code = Lymphocytes 0.7 1.0-5.5 #) [facility] ArlingtonQcgpeftVQMQPGSPBR7534-70-64 10:53:00 Test Item Value Reference Range Interpretation Comments Eosinophils # (test code 0.3 See_Comment [A utomated message] The = Eosinophils #) system whic h generated this result tra nsmitted reference range : <=0.5. The reference r eileen was not used to int erpret this result as normal/abnormal . [facility] ArlingtonGenkxhiHYLSZEIBHY4977-57-23 10:53:00 Test Item Value Reference Range Interpretation Comments Monocytes # (test code 1.5 See_Comment [Aut omated message] The = Monocytes #) system which generated this result tra nsmitted reference range : <=0.8. The reference r eileen was not used to int erpret this result as normal/abnormal . [facility] ArlingtonRjssngyGOKJTOXCHH5539-52-51 10:53:00 Test Item Value Reference Range Interpretation Comments WBC (test code = WBC) 7.0 3.7-10.4 [facility] ArlingtonLmlhsumLMLLSRVHPK5290-16-66 10:53:00 Test Item Value Reference Range Interpretation Comments RBC (test code = RBC) 2.62 4.20-5.40 [facility] ArlingtonFxofgfsCGMUWOZPFJ3360-25-21 10:53:00 Test Item Value Reference Range Interpretation Comments Hgb (test code = Hgb) 7.6 12.0-16.0 [facility] ArlingtonOrkjivyYAWKBFMWUB5172-93-09 10:53:00 Test Item Value Reference Range Interpretation Comments Hct (test code = Hct) 22.6 36.0-48.0 [facility] ArlingtonUarosbtERXNMLBJBT5500-72-92 10:53:00 Test Item Value Reference Range Interpretation Comments MCV (test code = MCV) 86.4 80.0-98.0 [facility] ArlingtonHkofyfeDIYGYTBUMZ6639-07-70 10:53:00 Test Item Value Reference Range Interpretation Comments MCHC (test code = MCHC) 33.6 32.0-36.0 [facility] ArlingtonKhurfodVZSSHQAUYI5356-12-98 10:53:00 Test Item Value Reference Range Interpretation Comments MCH (test code = MCH) 29.0 pg 27.0-31.0 [facility] ArlingtonFqbyfkyLRHDEQBRSU9370-51-65 10:53:00 Test Item Value Reference Range Interpretation Comments RDW (test code = RDW) 15.8 11.5-14.5 [facility] ArlingtonOvmjmqpTEZRBGCKHX8938-88-55 10:53:00 Test Item Value Reference Range Interpretation Comments MPV (test code = MPV) 9.7 7.4-10.4 [facility] ArlingtonGjahawwBOODMBMRJX4106-19-95 10:53:00 Test Item Value Reference Range Interpretation Comments Platelet (test code = Platelet) 98 133-450 [facility] LYRPKFQ1295-66-43 11:45:00 Test Item Value Reference Range Interpretation Comments RBC product (test code Product available = RBC product) 4(01/17/19 6:45 AM) [facility] [id number] 11:45:00 Test Item Value Reference Range Interpretation Comments RBC product (test code Product available = RBC product) 4(01/17/19 6:45 AM) [facility] [id number] 11:45:00 Test Item Value Reference Range Interpretation Comments RBC product (test code Product available = RBC product) 4(01/17/19 6:45 AM) [facility] [id number] 11:45:00 Test Item Value Reference Range Interpretation Comments RBC product (test code Product available = RBC product) 4(01/17/19 6:45 AM) [facility] [id number] 11:45:00 Test Item Value Reference Range Interpretation Comments RBC product (test code Product available = RBC product) 4(01/17/19 6:45 AM) [facility] [id number] 10:38:00 Test Item Value Reference Range Interpretation Comments eGFR (test code = eGFR) 10 [facility] HISNR0313-61-25 10:38:00 Test Item Value Reference Range Interpretation Comments BUN (test code = BUN) 34 7-22 [facility] [id number] 10:38:00 Test Item Value Reference Range Interpretation Comments Creatinine Lvl (test code = Creatinine 5.10 0.50-1.40 Lvl) [facility]2019-07-27 10:38:00 Test Item Value Reference Range Interpretation Comments Glucose Lvl (test code = Glucose Lvl) 117 70-99 [facility] [id number] 10:38:00 Test Item Value Reference Range Interpretation Comments Chloride Lvl (test code = Chloride Lvl) 106 95-109 [facility]2019-07-27 10:38:00 Test Item Value Reference Range Interpretation Comments Potassium Lvl (test code = Potassium 5.2 3.5-5.1 Lvl) [facility]2019-07-27 10:38:00 Test Item Value Reference Range Interpretation Comments Sodium Lvl (test code = Sodium Lvl) 141 135-145 [facility]2019-07-27 10:38:00 Test Item Value Reference Range Interpretation Comments CO2 (test code = CO2) 25 24-32 [facility]2019-07-27 10:38:00 Test Item Value Reference Range Interpretation Comments Calcium Lvl (test code = Calcium Lvl) 8.5 8.5-10.5 [facility]2019-07-27 10:38:00 Test Item Value Reference Range Interpretation Comments AGAP (test code = AGAP) 15.2 10.0-20.0 [facility] ArlingtonGxlahmmMJIEYLINKC2816-95-05 10:38:00 Test Item Value Reference Range Interpretation Comments Basophils (test code = 0.8 See_Comment [Aut omated message] The Basophils) system which ge nerated this result tra nsmitted reference range : <=1.0. The reference r eileen was not used to int erpret this result as normal/abnormal . [facility] ArlingtonVktvpvzBOPGYMZTYM0421-79-65 10:38:00 Test Item Value Reference Range Interpretation Comments Segs (test code = Segs) 70.0 45.0-75.0 [facility] ArlingtonQixlqdvOIOZPEHFDD1121-49-87 10:38:00 Test Item Value Reference Range Interpretation Comments Lymphocytes (test code = Lymphocytes) 8.2 20.0-40.0 [facility] ArlingtonAxjwrszCSKEFMZPCW3501-25-99 10:38:00 Test Item Value Reference Range Interpretation Comments Monocytes (test code = Monocytes) 19.0 2.0-12.0 [facility] ArlingtonVopkzcxWPTORLJNYH8877-87-86 10:38:00 Test Item Value Reference Range Interpretation Comments Eosinophils (test code = 2.0 See_Comment [A utomated message] The Eosinophils) system which ge nerated this result tra nsmitted reference range : <=4.0. The reference r eileen was not used to int erpret this result as normal/abnormal . [facility] ArlingtonLoosvyfINBOBQTLUD0796-92-57 10:38:00 Test Item Value Reference Range Interpretation Comments Neutrophils # (test code = Neutrophils 4.3 1.5-8.1 #) [facility] ArlingtonZdigivoBJPENUXJYI4853-26-89 10:38:00 Test Item Value Reference Range Interpretation Comments Lymphocytes # (test code = Lymphocytes 0.5 1.0-5.5 #) [facility] ArlingtonOaaersoCYYSWLRDHQ5458-91-60 10:38:00 Test Item Value Reference Range Interpretation Comments Monocytes # (test code 1.2 See_Comment [Aut omated message] The = Monocytes #) system which generated this result tra nsmitted reference range : <=0.8. The reference r eileen was not used to int erpret this result as normal/abnormal . [facility] ArlingtonNdvrgljEWGPZASPAP5124-73-06 10:38:00 Test Item Value Reference Range Interpretation Comments Eosinophils # (test code 0.1 See_Comment [A utomated message] The = Eosinophils #) system whic h generated this result tra nsmitted reference range : <=0.5. The reference r eileen was not used to int erpret this result as normal/abnormal . [facility] ArlingtonNeiedmmBSIWULHKDP0830-43-02 10:38:00 Test Item Value Reference Range Interpretation Comments Hct (test code = Hct) 21.1 36.0-48.0 [facility] ArlingtonTyewmzhQTAIRXAKWL7455-02-45 10:38:00 Test Item Value Reference Range Interpretation Comments MCV (test code = MCV) 87.7 80.0-98.0 [facility] ArlingtonRhuojlfZWHUHIPEMJ7767-30-07 10:38:00 Test Item Value Reference Range Interpretation Comments Hgb (test code = Hgb) 6.8 12.0-16.0 [facility] ArlingtonEabaaocHAPLARSHUM0155-89-90 10:38:00 Test Item Value Reference Range Interpretation Comments MCH (test code = MCH) 28.4 pg 27.0-31.0 [facility] ArlingtonGiegftyKRLEIRAYCI8994-12-31 10:38:00 Test Item Value Reference Range Interpretation Comments RDW (test code = RDW) 16.6 11.5-14.5 [facility] ArlingtonTevmoohUISXWKEUIA5984-65-14 10:38:00 Test Item Value Reference Range Interpretation Comments Platelet (test code = Platelet) 102 133-450 [facility] ArlingtonBbtikhlURFXGJRWBL1344-61-89 10:38:00 Test Item Value Reference Range Interpretation Comments MPV (test code = MPV) 9.7 7.4-10.4 [facility] ArlingtonMqsukgxJRFARWZHNE5451-54-74 10:38:00 Test Item Value Reference Range Interpretation Comments MCHC (test code = MCHC) 32.4 32.0-36.0 [facility] ArlingtonAixmqieRBZTEFZCON5050-10-93 10:38:00 Test Item Value Reference Range Interpretation Comments WBC (test code = WBC) 6.1 3.7-10.4 [facility] ArlingtonOmshjgoXKJLGXTCLJ8543-83-77 10:38:00 Test Item Value Reference Range Interpretation Comments RBC (test code = RBC) 2.41 4.20-5.40 [facility]2019-07-27 10:38:00 Test Item Value Reference Range Interpretation Comments eGFR (test code = eGFR) 10 [facility]2019-07-27 10:38:00 Test Item Value Reference Range Interpretation Comments BUN (test code = BUN) 34 7-22 [facility]2019-07-27 10:38:00 Test Item Value Reference Range Interpretation Comments Creatinine Lvl (test code = Creatinine 5.10 0.50-1.40 Lvl) [facility]2019-07-27 10:38:00 Test Item Value Reference Range Interpretation Comments Glucose Lvl (test code = Glucose Lvl) 117 70-99 [facility]2019-07-27 10:38:00 Test Item Value Reference Range Interpretation Comments Chloride Lvl (test code = Chloride Lvl) 106 95-109 [facility]2019-07-27 10:38:00 Test Item Value Reference Range Interpretation Comments Potassium Lvl (test code = Potassium 5.2 3.5-5.1 Lvl) [facility]2019-07-27 10:38:00 Test Item Value Reference Range Interpretation Comments Sodium Lvl (test code = Sodium Lvl) 141 135-145 [facility]2019-07-27 10:38:00 Test Item Value Reference Range Interpretation Comments CO2 (test code = CO2) 25 24-32 [facility]2019-07-27 10:38:00 Test Item Value Reference Range Interpretation Comments Calcium Lvl (test code = Calcium Lvl) 8.5 8.5-10.5 [facility]2019-07-27 10:38:00 Test Item Value Reference Range Interpretation Comments AGAP (test code = AGAP) 15.2 10.0-20.0 [facility] ArlingtonZinlvbaYYMKSZGTSK6960-54-78 10:38:00 Test Item Value Reference Range Interpretation Comments Basophils (test code = 0.8 See_Comment [Aut omated message] The Basophils) system which ge nerated this result tra nsmitted reference range : <=1.0. The reference r eileen was not used to int erpret this result as normal/abnormal . [facility] ArlingtonAiqpurpQMWFELINAY1245-23-50 10:38:00 Test Item Value Reference Range Interpretation Comments Segs (test code = Segs) 70.0 45.0-75.0 [facility] ArlingtonRbcdobiVXEPDBTQZQ3549-05-68 10:38:00 Test Item Value Reference Range Interpretation Comments Lymphocytes (test code = Lymphocytes) 8.2 20.0-40.0 [facility] ArlingtonKzynbaaYNTVUJNCCU1667-24-03 10:38:00 Test Item Value Reference Range Interpretation Comments Monocytes (test code = Monocytes) 19.0 2.0-12.0 [facility] ArlingtonMsmrgpcLGXKZVVYUP0987-86-17 10:38:00 Test Item Value Reference Range Interpretation Comments Eosinophils (test code = 2.0 See_Comment [A utomated message] The Eosinophils) system which ge nerated this result tra nsmitted reference range : <=4.0. The reference r eileen was not used to int erpret this result as normal/abnormal . [facility] ArlingtonDatzwkiGTWMYQNGAR6422-36-21 10:38:00 Test Item Value Reference Range Interpretation Comments Neutrophils # (test code = Neutrophils 4.3 1.5-8.1 #) [facility] ArlingtonTicypfdMTOIOACTCF9943-42-42 10:38:00 Test Item Value Reference Range Interpretation Comments Lymphocytes # (test code = Lymphocytes 0.5 1.0-5.5 #) [facility] ArlingtonCcgqmvjSEJFZHRGPB9494-37-60 10:38:00 Test Item Value Reference Range Interpretation Comments Monocytes # (test code 1.2 See_Comment [Aut omated message] The = Monocytes #) system which generated this result tra nsmitted reference range : <=0.8. The reference r eileen was not used to int erpret this result as normal/abnormal . [facility] ArlingtonPaywytrEUNGEFWTHW4796-48-98 10:38:00 Test Item Value Reference Range Interpretation Comments Eosinophils # (test code 0.1 See_Comment [A utomated message] The = Eosinophils #) system whic h generated this result tra nsmitted reference range : <=0.5. The reference r eileen was not used to int erpret this result as normal/abnormal . [facility] ArlingtonBoqlswfWTUFQCJXDV0322-57-87 10:38:00 Test Item Value Reference Range Interpretation Comments Hct (test code = Hct) 21.1 36.0-48.0 [facility] ArlingtonSyamuyqRMINVCBKEN6594-94-37 10:38:00 Test Item Value Reference Range Interpretation Comments MCV (test code = MCV) 87.7 80.0-98.0 [facility] ArlingtonDztlsumMXVDHXSKYP0883-60-14 10:38:00 Test Item Value Reference Range Interpretation Comments Hgb (test code = Hgb) 6.8 12.0-16.0 [facility] ArlingtonMpelnckSITIBVNLLW7773-23-68 10:38:00 Test Item Value Reference Range Interpretation Comments MCH (test code = MCH) 28.4 pg 27.0-31.0 [facility] ArlingtonAbnrdgkTGIZVRSGKI0707-26-06 10:38:00 Test Item Value Reference Range Interpretation Comments RDW (test code = RDW) 16.6 11.5-14.5 [facility] ArlingtonRmsmfhrRCYHKDGIMN5985-11-48 10:38:00 Test Item Value Reference Range Interpretation Comments Platelet (test code = Platelet) 102 133-450 [facility] ArlingtonNozzldiLFPZUJGXDB8090-08-38 10:38:00 Test Item Value Reference Range Interpretation Comments MPV (test code = MPV) 9.7 7.4-10.4 [facility] ArlingtonHsvqxbcHTXJRSBXHZ8608-84-30 10:38:00 Test Item Value Reference Range Interpretation Comments MCHC (test code = MCHC) 32.4 32.0-36.0 [facility] ArlingtonXyozzjjCVFKAITXBQ9530-80-74 10:38:00 Test Item Value Reference Range Interpretation Comments WBC (test code = WBC) 6.1 3.7-10.4 [facility] ArlingtonYmjhrmhDTLRVGREUE6807-30-22 10:38:00 Test Item Value Reference Range Interpretation Comments RBC (test code = RBC) 2.41 4.20-5.40 [facility]2019-07-27 10:38:00 Test Item Value Reference Range Interpretation Comments eGFR (test code = eGFR) 10 [facility]2019-07-27 10:38:00 Test Item Value Reference Range Interpretation Comments BUN (test code = BUN) 34 7-22 [facility]2019-07-27 10:38:00 Test Item Value Reference Range Interpretation Comments Creatinine Lvl (test code = Creatinine 5.10 0.50-1.40 Lvl) [facility]2019-07-27 10:38:00 Test Item Value Reference Range Interpretation Comments Glucose Lvl (test code = Glucose Lvl) 117 70-99 [facility]2019-07-27 10:38:00 Test Item Value Reference Range Interpretation Comments Chloride Lvl (test code = Chloride Lvl) 106 95-109 [facility]2019-07-27 10:38:00 Test Item Value Reference Range Interpretation Comments Potassium Lvl (test code = Potassium 5.2 3.5-5.1 Lvl) [facility]2019-07-27 10:38:00 Test Item Value Reference Range Interpretation Comments Sodium Lvl (test code = Sodium Lvl) 141 135-145 [facility]2019-07-27 10:38:00 Test Item Value Reference Range Interpretation Comments CO2 (test code = CO2) 25 24-32 [facility]2019-07-27 10:38:00 Test Item Value Reference Range Interpretation Comments Calcium Lvl (test code = Calcium Lvl) 8.5 8.5-10.5 [facility]2019-07-27 10:38:00 Test Item Value Reference Range Interpretation Comments AGAP (test code = AGAP) 15.2 10.0-20.0 [facility] ArlingtonYxysbcuCMGHXHIDXW8550-97-15 10:38:00 Test Item Value Reference Range Interpretation Comments Basophils (test code = 0.8 See_Comment [Aut omated message] The Basophils) system which ge nerated this result tra nsmitted reference range : <=1.0. The reference r eileen was not used to int erpret this result as normal/abnormal . [facility] ArlingtonJvkjwgyEBHNVAFNWL0664-32-51 10:38:00 Test Item Value Reference Range Interpretation Comments Segs (test code = Segs) 70.0 45.0-75.0 [facility] ArlingtonDavzxhsWFJZTDTDCN7769-64-27 10:38:00 Test Item Value Reference Range Interpretation Comments Lymphocytes (test code = Lymphocytes) 8.2 20.0-40.0 [facility] ArlingtonZzhyyfrEUHRUKHQYV2065-66-45 10:38:00 Test Item Value Reference Range Interpretation Comments Monocytes (test code = Monocytes) 19.0 2.0-12.0 [facility] ArlingtonMyaxbjiSJQRDOPWIW4421-19-59 10:38:00 Test Item Value Reference Range Interpretation Comments Eosinophils (test code = 2.0 See_Comment [A utomated message] The Eosinophils) system which ge nerated this result tra nsmitted reference range : <=4.0. The reference r eileen was not used to int erpret this result as normal/abnormal . [facility] ArlingtonVsuafirRPYDYSTQHK9492-80-39 10:38:00 Test Item Value Reference Range Interpretation Comments Neutrophils # (test code = Neutrophils 4.3 1.5-8.1 #) [facility] ArlingtonScsuiosEDGKDCXYCB0208-00-23 10:38:00 Test Item Value Reference Range Interpretation Comments Lymphocytes # (test code = Lymphocytes 0.5 1.0-5.5 #) [facility] ArlingtonJnkswduPBPLGNRTNR6672-91-80 10:38:00 Test Item Value Reference Range Interpretation Comments Monocytes # (test code 1.2 See_Comment [Aut omated message] The = Monocytes #) system which generated this result tra nsmitted reference range : <=0.8. The reference r eileen was not used to int erpret this result as normal/abnormal . [facility] ArlingtonAjhslknTGWSUKIPBE6790-05-95 10:38:00 Test Item Value Reference Range Interpretation Comments Eosinophils # (test code 0.1 See_Comment [A utomated message] The = Eosinophils #) system [facility] h generated this result tra nsmitted reference range : <=0.5. The reference r eileen was not used to int erpret this result as normal/abnormal . [facility] ArlingtonGnqpdgpRGDSAHSAJT8752-64-56 10:38:00 Test Item Value Reference Range Interpretation Comments Hct (test code = Hct) 21.1 36.0-48.0 [facility] ArlingtonBioyvhoSRDWWDTVXK8376-04-54 10:38:00 Test Item Value Reference Range Interpretation Comments MCV (test code = MCV) 87.7 80.0-98.0 [facility] ArlingtonAhorapmYJAQXTIFZW3094-73-66 10:38:00 Test Item Value Reference Range Interpretation Comments Hgb (test code = Hgb) 6.8 12.0-16.0 [facility] ArlingtonXydkadeCQRMVFJCPH1376-15-56 10:38:00 Test Item Value Reference Range Interpretation Comments MCH (test code = MCH) 28.4 pg 27.0-31.0 [facility] ArlingtonWaribriMOQSMWEPIQ4413-70-63 10:38:00 Test Item Value Reference Range Interpretation Comments RDW (test code = RDW) 16.6 11.5-14.5 [facility] ArlingtonKpgeheuCMIHEJDUDW1231-52-68 10:38:00 Test Item Value Reference Range Interpretation Comments Platelet (test code = Platelet) 102 133-450 [facility] ArlingtonQjvykasMZKPHVFCHH6684-24-32 10:38:00 Test Item Value Reference Range Interpretation Comments MPV (test code = MPV) 9.7 7.4-10.4 [facility] ArlingtonUpqdvjvNGNFJIPUKO9395-87-72 10:38:00 Test Item Value Reference Range Interpretation Comments MCHC (test code = MCHC) 32.4 32.0-36.0 [facility] ArlingtonDkuarliCQFUSSONIJ6786-84-73 10:38:00 Test Item Value Reference Range Interpretation Comments WBC (test code = WBC) 6.1 3.7-10.4 [facility] ArlingtonFsipmjuPRYXZUBXBL3157-32-75 10:38:00 Test Item Value Reference Range Interpretation Comments RBC (test code = RBC) 2.41 4.20-5.40 [facility]2019-07-27 10:38:00 Test Item Value Reference Range Interpretation Comments eGFR (test code = eGFR) 10 [facility]2019-07-27 10:38:00 Test Item Value Reference Range Interpretation Comments BUN (test code = BUN) 34 7-22 [facility]2019-07-27 10:38:00 Test Item Value Reference Range Interpretation Comments Creatinine Lvl (test code = Creatinine 5.10 0.50-1.40 Lvl) [facility]2019-07-27 10:38:00 Test Item Value Reference Range Interpretation Comments Glucose Lvl (test code = Glucose Lvl) 117 70-99 [facility]2019-07-27 10:38:00 Test Item Value Reference Range Interpretation Comments Chloride Lvl (test code = Chloride Lvl) 106 95-109 [facility]2019-07-27 10:38:00 Test Item Value Reference Range Interpretation Comments Potassium Lvl (test code = Potassium 5.2 3.5-5.1 Lvl) [facility]2019-07-27 10:38:00 Test Item Value Reference Range Interpretation Comments Sodium Lvl (test code = Sodium Lvl) 141 135-145 [facility]2019-07-27 10:38:00 Test Item Value Reference Range Interpretation Comments CO2 (test code = CO2) 25 24-32 [facility]2019-07-27 10:38:00 Test Item Value Reference Range Interpretation Comments Calcium Lvl (test code = Calcium Lvl) 8.5 8.5-10.5 [facility]2019-07-27 10:38:00 Test Item Value Reference Range Interpretation Comments AGAP (test code = AGAP) 15.2 10.0-20.0 [facility] ArlingtonSilptqpJFNWKXMQSG7154-20-38 10:38:00 Test Item Value Reference Range Interpretation Comments Basophils (test code = 0.8 See_Comment [Aut omated message] The Basophils) system which ge nerated this result tra nsmitted reference range : <=1.0. The reference r eileen was not used to int erpret this result as normal/abnormal . [facility] ArlingtonKdubywvIQHXPIOOAC7097-82-54 10:38:00 Test Item Value Reference Range Interpretation Comments Segs (test code = Segs) 70.0 45.0-75.0 [facility] ArlingtonJhpubzyTRBABRKBCN9902-55-46 10:38:00 Test Item Value Reference Range Interpretation Comments Lymphocytes (test code = Lymphocytes) 8.2 20.0-40.0 [facility] ArlingtonAzfjungNTPHKXCYVS6745-36-89 10:38:00 Test Item Value Reference Range Interpretation Comments Monocytes (test code = Monocytes) 19.0 2.0-12.0 [facility] ArlingtonQevfwoiDWLVGCBOKU7157-93-35 10:38:00 Test Item Value Reference Range Interpretation Comments Eosinophils (test code = 2.0 See_Comment [A utomated message] The Eosinophils) system which ge nerated this result tra nsmitted reference range : <=4.0. The reference r eileen was not used to int erpret this result as normal/abnormal . [facility] ArlingtonVmbvtllPRDXFGLIHF7175-11-07 10:38:00 Test Item Value Reference Range Interpretation Comments Neutrophils # (test code = Neutrophils 4.3 1.5-8.1 #) [facility] ArlingtonLszdfeiWGYFKGVCKH7327-41-42 10:38:00 Test Item Value Reference Range Interpretation Comments Lymphocytes # (test code = Lymphocytes 0.5 1.0-5.5 #) [facility] ArlingtonHdugxrsDRDEZXLMOY1858-35-56 10:38:00 Test Item Value Reference Range Interpretation Comments Monocytes # (test code 1.2 See_Comment [Aut omated message] The = Monocytes #) system which generated this result tra nsmitted reference range : <=0.8. The reference r eileen was not used to int erpret this result as normal/abnormal . [facility] ArlingtonKucgxzdHZSTKIVPDW4067-37-48 10:38:00 Test Item Value Reference Range Interpretation Comments Eosinophils # (test code 0.1 See_Comment [A utomated message] The = Eosinophils #) system whic h generated this result tra nsmitted reference range : <=0.5. The reference r eileen was not used to int erpret this result as normal/abnormal . [facility] ArlingtonXbxxkcyNNVQAJPGBP8162-05-36 10:38:00 Test Item Value Reference Range Interpretation Comments Hct (test code = Hct) 21.1 36.0-48.0 [facility] ArlingtonFmalyrlQCMKOKSEHT0373-10-19 10:38:00 Test Item Value Reference Range Interpretation Comments MCV (test code = MCV) 87.7 80.0-98.0 [facility] ArlingtonUdqaoknLJPMPSWGLX7305-92-39 10:38:00 Test Item Value Reference Range Interpretation Comments Hgb (test code = Hgb) 6.8 12.0-16.0 [facility] ArlingtonPryciruZSGEWVPAFO4012-39-37 10:38:00 Test Item Value Reference Range Interpretation Comments MCH (test code = MCH) 28.4 pg 27.0-31.0 [facility]zjxpnuLZLOZCADXU1604-98-14 10:38:00 Test Item Value Reference Range Interpretation Comments RDW (test code = RDW) 16.6 11.5-14.5 [facility] ArlingtonPgldyujSAIDTCRLKL7533-80-61 10:38:00 Test Item Value Reference Range Interpretation Comments Platelet (test code = Platelet) 102 133-450 [facility] ArlingtonEijintcTELZRSAWSE7251-52-44 10:38:00 Test Item Value Reference Range Interpretation Comments MPV (test code = MPV) 9.7 7.4-10.4 [facility] ArlingtonEuliorgABAQXEQEFJ8016-00-85 10:38:00 Test Item Value Reference Range Interpretation Comments MCHC (test code = MCHC) 32.4 32.0-36.0 [facility] ArlingtonKdcbzomZLSFTKKURS4366-25-28 10:38:00 Test Item Value Reference Range Interpretation Comments WBC (test code = WBC) 6.1 3.7-10.4 [facility] ArlingtonIxjuxypMDSKGSTACF4869-78-80 10:38:00 Test Item Value Reference Range Interpretation Comments RBC (test code = RBC) 2.41 4.20-5.40 [facility]2019-07-27 10:38:00 Test Item Value Reference Range Interpretation Comments eGFR (test code = eGFR) 10 [facility]2019-07-27 10:38:00 Test Item Value Reference Range Interpretation Comments BUN (test code = BUN) 34 7-22 [facility]2019-07-27 10:38:00 Test Item Value Reference Range Interpretation Comments Creatinine Lvl (test code = Creatinine 5.10 0.50-1.40 Lvl) [facility]2019-07-27 10:38:00 Test Item Value Reference Range Interpretation Comments Glucose Lvl (test code = Glucose Lvl) 117 70-99 [facility]2019-07-27 10:38:00 Test Item Value Reference Range Interpretation Comments Chloride Lvl (test code = Chloride Lvl) 106 95-109 [facility]2019-07-27 10:38:00 Test Item Value Reference Range Interpretation Comments Potassium Lvl (test code = Potassium 5.2 3.5-5.1 Lvl) [facility]2019-07-27 10:38:00 Test Item Value Reference Range Interpretation Comments Sodium Lvl (test code = Sodium Lvl) 141 135-145 [facility]2019-07-27 10:38:00 Test Item Value Reference Range Interpretation Comments CO2 (test code = CO2) 25 24-32 [facility]2019-07-27 10:38:00 Test Item Value Reference Range Interpretation Comments Calcium Lvl (test code = Calcium Lvl) 8.5 8.5-10.5 [facility]2019-07-27 10:38:00 Test Item Value Reference Range Interpretation Comments AGAP (test code = AGAP) 15.2 10.0-20.0 [facility] ArlingtonLccvoufNSHLPBPWJN2186-63-45 10:38:00 Test Item Value Reference Range Interpretation Comments Basophils (test code = 0.8 See_Comment [Aut omated message] The Basophils) system which ge nerated this result tra nsmitted reference range : <=1.0. The reference r eileen was not used to int erpret this result as normal/abnormal . [facility] ArlingtonYkootrnVGYCGKZKUP2706-50-04 10:38:00 Test Item Value Reference Range Interpretation Comments Segs (test code = Segs) 70.0 45.0-75.0 [facility] ArlingtonOzsiqigHRHKTIWOWZ6751-61-24 10:38:00 Test Item Value Reference Range Interpretation Comments Lymphocytes (test code = Lymphocytes) 8.2 20.0-40.0 [facility] ArlingtonEjjijveYPZGKFLNAB6558-79-95 10:38:00 Test Item Value Reference Range Interpretation Comments Monocytes (test code = Monocytes) 19.0 2.0-12.0 [facility] ArlingtonGygxrgbONAHVSMFGK4234-38-40 10:38:00 Test Item Value Reference Range Interpretation Comments Eosinophils (test code = 2.0 See_Comment [A utomated message] The Eosinophils) system which ge nerated this result tra nsmitted reference range : <=4.0. The reference r eileen was not used to int erpret this result as normal/abnormal . [facility] ArlingtonNyxntzqSDWRQCMNPF5493-25-66 10:38:00 Test Item Value Reference Range Interpretation Comments Neutrophils # (test code = Neutrophils 4.3 1.5-8.1 #) [facility] ArlingtonEqluwlqWGRAFCJAXX6392-82-85 10:38:00 Test Item Value Reference Range Interpretation Comments Lymphocytes # (test code = Lymphocytes 0.5 1.0-5.5 #) [facility] ArlingtonNqfmjnaVGKBQJNRVG0653-49-71 10:38:00 Test Item Value Reference Range Interpretation Comments Monocytes # (test code 1.2 See_Comment [Aut omated message] The = Monocytes #) system which generated this result tra nsmitted reference range : <=0.8. The reference r eileen was not used to int erpret this result as normal/abnormal . [facility] ArlingtonDpoqmnnZLJGDHPLAC5787-22-71 10:38:00 Test Item Value Reference Range Interpretation Comments Eosinophils # (test code 0.1 See_Comment [A utomated message] The = Eosinophils #) system whic h generated this result tra nsmitted reference range : <=0.5. The reference r eileen was not used to int erpret this result as normal/abnormal . [facility] ArlingtonLxpgekvNRNTYDXBLA9923-36-81 10:38:00 Test Item Value Reference Range Interpretation Comments Hct (test code = Hct) 21.1 36.0-48.0 [facility] ArlingtonSuxbznjOLITUJFHTB2432-26-56 10:38:00 Test Item Value Reference Range Interpretation Comments MCV (test code = MCV) 87.7 80.0-98.0 [facility] ArlingtonBvhwgidXGYILVJXWQ4215-68-30 10:38:00 Test Item Value Reference Range Interpretation Comments Hgb (test code = Hgb) 6.8 12.0-16.0 [facility] ArlingtonCrwtcgaEBUWYFDUBR3035-51-80 10:38:00 Test Item Value Reference Range Interpretation Comments MCH (test code = MCH) 28.4 pg 27.0-31.0 [facility] ArlingtonWtakdszSDUSUAQLYG1963-43-63 10:38:00 Test Item Value Reference Range Interpretation Comments RDW (test code = RDW) 16.6 11.5-14.5 [facility] ArlingtonNwazxcdWIRSBDYHXX4028-08-93 10:38:00 Test Item Value Reference Range Interpretation Comments Platelet (test code = Platelet) 102 133-450 [facility] ArlingtonMhqodggHWRLITAATL8811-22-14 10:38:00 Test Item Value Reference Range Interpretation Comments MPV (test code = MPV) 9.7 7.4-10.4 [facility] ArlingtonPsoesotMYAANSHRZZ1435-01-90 10:38:00 Test Item Value Reference Range Interpretation Comments MCHC (test code = MCHC) 32.4 32.0-36.0 [facility] ArlingtonMrxhdgbQMPISRNMEJ7821-95-20 10:38:00 Test Item Value Reference Range Interpretation Comments WBC (test code = WBC) 6.1 3.7-10.4 [facility] ArlingtonKcrexvmOTTZJBVCRE2412-63-26 10:38:00 Test Item Value Reference Range Interpretation Comments RBC (test code = RBC) 2.41 4.20-5.40 [facility]zbOKORWUPQGN7173-27-05 19:50:00 Test Item Value Reference Range Interpretation Comments Hep C Ab (test code = Negative *NA*(01/16/19 Hep C Ab) 2:50 PM) [facility]LrxyiqlYHAOBHHVGX6117-60-24 19:50:00 Test Item Value Reference Range Interpretation Comments Hep Bs Ab (test code = Hep Bs Ab) [facility]ZIZJ7185-[facility]-85 19:50:00 Test Item Value Reference Range Interpretation Comments Hep B Core Ab (test Negative *NA*(01/16/19 code = Hep B Core Ab) 2:50 PM) [facility]XnwzfulRHPLXRSOKY7608-14-13 19:50:00 Test Item Value Reference Range Interpretation Comments Hep Bs Ag (test code Negative *NA*(01/16/19 = Hep Bs Ag) 2:50 PM) [facility]HryyuguKHIGTQNNDM7181-66-51 19:50:00 Test Item Value Reference Range Interpretation Comments Hep C Ab (test code = Negative *NA*(01/16/19 Hep C Ab) 2:50 PM) [facility]TxkryxaQDTYJPBEFP1287-66-95 19:50:00 Test Item Value Reference Range Interpretation Comments Hep Bs Ab (test code = Hep Bs Ab) [facility] gt [facility] SouthIndinrtAAXSNVUXDX4485-51-35 19:50:00 Test Item Value Reference Range Interpretation Comments Hep B Core Ab (test Negative *NA*(01/16/19 code = Hep B Core Ab) 2:50 PM) [facility]TygftbqRFPQDAKKXL5643-98-37 19:50:00 Test Item Value Reference Range Interpretation Comments Hep Bs Ag (test code Negative *NA*(01/16/19 = Hep Bs Ag) 2:50 PM) [facility]VoumkfkLKLRHDHNAB4399-10-81 19:50:00 Test Item Value Reference Range Interpretation Comments Hep C Ab (test code = Negative *NA*(01/16/19 Hep C Ab) 2:50 PM[facility]GtelhsmEVPXRWFSLG6630-77-48 19:50:00 Test Item Value Reference Range Interpretation Comments Hep Bs Ab (test code = Hep Bs Ab) [facility]SbzdbmhDEXOHBXNIS5087-04-95 19:50:00 Test Item Value Reference Range Interpretation Comments Hep B Core Ab (test Negative *NA*(01/16/19 code = Hep B Core Ab) 2:50 PM) [facility]BbxfhljKRKEUUIBST1841-22-59 19:50:00 Test Item Value Reference Range Interpretation Comments Hep Bs Ag (test code Negative *NA*(01/16/19 = Hep Bs Ag) 2:50 PM) [facility]QqpjhlgJPTLZBHDLJ9229-48-76 19:50:00 Test Item Value Reference Range Interpretation Comments Hep C Ab (test code = Negative *NA*(01/16/19 Hep C Ab) 2:50 PM) [facility]GtxcsskCVHDMBVHYU6141-94-12 19:50:00 Test Item Value Reference Range Interpretation Comments Hep Bs Ab (test code = Hep Bs Ab) [facility] gt [facility] SouthCvxcmxrUTSAVTNTPJ9507-70-00 19:50:00 Test Item Value Reference Range Interpretation Comments Hep B Core Ab (test Negative *NA*(01/16/19 code = Hep B Core Ab) 2:50 PM) [facility]BqfwwojWTSNYRTUHE1794-71-62 19:50:00 Test Item Value Reference Range Interpretation Comments Hep Bs Ag (test code Negative *NA*(01/16/19 = Hep Bs Ag) 2:50 PM) [facility] SouthFbgfliwLEJEBYOFNW1594-50-79 19:50:00 Test Item Value Reference Range Interpretation Comments Hep C Ab (test code = Negative *NA*(01/16/19 Hep C Ab) 2:50 PM) [facility] SouthDkeorniBWHQMLSMNF5174-38-83 19:50:00 Test Item Value Reference Range Interpretation Comments Hep Bs Ab (test code = Hep Bs Ab) [facility] gt [facility] SouthNkaduavWDNCMPIUNL9338-49-40 19:50:00 Test Item Value Reference Range Interpretation Comments Hep B Core Ab (test Negative *NA*(01/16/19 code = Hep B Core Ab) 2:50 PM) [facility] SouthIznlsxnMIQIGIZTIV7609-00-43 19:50:00 Test Item Value Reference Range Interpretation Comments Hep Bs Ag (test code Negative *NA*(01/16/19 = Hep Bs Ag) 2:50 PM) [facility]2019-07-26 19:08:56 Test Item Value Reference Range Interpretation Comments eGFR (test code = eGFR) 8 [facility]2019-07-26 19:08:56 Test Item Value Reference Range Interpretation Comments Potassium Lvl (test code = Potassium 3.3 3.5-5.1 Lvl) [facility]2019-07-26 19:08:56 Test Item Value Reference Range Interpretation Comments Chloride Lvl (test code = Chloride Lvl) 108 95-109 [facility]2019-07-26 19:08:56 Test Item Value Reference Range Interpretation Comments CO2 (test code = CO2) 23 24-32 [facility]2019-07-26 19:08:56 Test Item Value Reference Range Interpretation Comments Calcium Lvl (test code = Calcium Lvl) 10.1 8.5-10.5 [facility]2019-07-26 19:08:56 Test Item Value Reference Range Interpretation Comments AGAP (test code = AGAP) 12.3 10.0-20.0 [facility]2019-07-26 19:08:56 Test Item Value Reference Range Interpretation Comments Sodium Lvl (test code = Sodium Lvl) 140 135-145 [facility]2019-07-26 19:08:56 Test Item Value Reference Range Interpretation Comments BUN (test code = BUN) 47 7-22 [facility]2019-07-26 19:08:56 Test Item Value Reference Range Interpretation Comments Creatinine Lvl (test code = Creatinine 5.77 0.50-1.40 Lvl) [facility]2019-07-26 19:08:56 Test Item Value Reference Range Interpretation Comments Glucose Lvl (test code = Glucose Lvl) 131 70-99 [facility] ArlingtonEjubauaLXWJRIPCRT1244-57-94 19:08:56 Test Item Value Reference Range Interpretation Comments Hct (test code = Hct) 26.2 36.0-48.0 [facility] ArlingtonFqdlzkkAFXAEHHMYF8120-09-24 19:08:56 Test Item Value Reference Range Interpretation Comments Hgb (test code = Hgb) 8.3 12.0-16.0 [facility] ArlingtonHmbdzklBXNSFCALGW2497-70-15 19:08:56 Test Item Value Reference Range Interpretation Comments RBC (test code = RBC) 2.98 4.20-5.40 [facility] ArlingtonFifoiyeINRIRHVISB9654-69-37 19:08:56 Test Item Value Reference Range Interpretation Comments WBC (test code = WBC) 4.6 3.7-10.4 [facility] ArlingtonWmehymuYABHGZPXFB5315-73-75 19:08:56 Test Item Value Reference Range Interpretation Comments RDW (test code = RDW) 16.7 11.5-14.5 [facility] ArlingtonCtjanigBFMYNMWTLM0531-45-28 19:08:56 Test Item Value Reference Range Interpretation Comments MCHC (test code = MCHC) 31.8 32.0-36.0 [place] 061689-07-26 19:08:56 Test Item Value Reference Range Interpretation Comments MCH (test code = MCH) 28.0 pg 27.0-31.0 [facility] ArlingtonKofqncyITPHPDOAMD4865-64-74 19:08:56 Test Item Value Reference Range Interpretation Comments MCV (test code = MCV) 87.9 80.0-98.0 [facility] ArlingtonUnzvyllJMSFCKFKDM3440-98-88 19:08:56 Test Item Value Reference Range Interpretation Comments MPV (test code = MPV) 9.1 7.4-10.4 [facility] ArlingtonNbyrxviBZEMZBCYFI5959-92-05 19:08:56 Test Item Value Reference Range Interpretation Comments Platelet (test code = Platelet) 140 133-450 [facility] ArlingtonZhyduatPMRAYKWTNT9538-84-78 19:08:56 Test Item Value Reference Range Interpretation Comments Eosinophils # (test code 0.1 See_Comment [A utomated message] The = Eosinophils #) system whic h generated this result tra nsmitted reference range : <=0.5. The reference r eileen was not used to int erpret this result as normal/abnormal . [facility] ArlingtonAtwwnpcEPUBGKKRQC0554-91-87 19:08:56 Test Item Value Reference Range Interpretation Comments Monocytes # (test code 0.6 See_Comment [Aut omated message] The = Monocytes #) system which generated this result tra nsmitted reference range : <=0.8. The reference r eileen was not used to int erpret this result as normal/abnormal . [facility] ArlingtonXuczbwuWOSYAMSYQG6346-62-75 19:08:56 Test Item Value Reference Range Interpretation Comments Lymphocytes # (test code = Lymphocytes 0.9 1.0-5.5 #) [facility] ArlingtonJvqnnxvIZTHWDHUQA1624-91-05 19:08:56 Test Item Value Reference Range Interpretation Comments Lymphocytes (test code = Lymphocytes) 19.1 20.0-40.0 [facility] ArlingtonZuanmgaXHSXINMSBR4110-22-12 19:08:56 Test Item Value Reference Range Interpretation Comments Segs (test code = Segs) 65.9 45.0-75.0 [facility] ArlingtonSnxosvvVSMODFKOLP4122-82-85 19:08:56 Test Item Value Reference Range Interpretation Comments Eosinophils (test code = 2.3 See_Comment [A utomated message] The Eosinophils) system which ge nerated this result tra nsmitted reference range : <=4.0. The reference r eileen was not used to int erpret this result as normal/abnormal . [facility] ArlingtonUzkxswdEBTCFZWEVD1100-02-63 19:08:56 Test Item Value Reference Range Interpretation Comments Monocytes (test code = Monocytes) 12.1 2.0-12.0 [facility] ArlingtonDpyhyczGKCVGRCUYO6304-82-61 19:08:56 Test Item Value Reference Range Interpretation Comments Neutrophils # (test code = Neutrophils 3.1 1.5-8.1 #) [facility] ArlingtonNowrqfwJWJEOHTBEJ8109-47-23 19:08:56 Test Item Value Reference Range Interpretation Comments Basophils (test code = 0.6 See_Comment [Aut omated message] The Basophils) system which ge nerated this result tra nsmitted reference range : <=1.0. The reference r eileen was not used to int erpret this result as normal/abnormal . [facility]2019-07-26 19:08:56 Test Item Value Reference Range Interpretation Comments eGFR (test code = eGFR) 8 [facility]2019-07-26 19:08:56 Test Item Value Reference Range Interpretation Comments Potassium Lvl (test code = Potassium 3.3 3.5-5.1 Lvl) [facility]2019-07-26 19:08:56 Test Item Value Reference Range Interpretation Comments Chloride Lvl (test code = Chloride Lvl) 108 95-109 [facility]2019-07-26 19:08:56 Test Item Value Reference Range Interpretation Comments CO2 (test code = CO2) 23 24-32 [facility]2019-07-26 19:08:56 Test Item Value Reference Range Interpretation Comments Calcium Lvl (test code = Calcium Lvl) 10.1 8.5-10.5 [place] 936179-07-26 19:08:56 Test Item Value Reference Range Interpretation Comments AGAP (test code = AGAP) 12.3 10.0-20.0 [facility]2019-07-26 19:08:56 Test Item Value Reference Range Interpretation Comments Sodium Lvl (test code = Sodium Lvl) 140 135-145 [facility]2019-07-26 19:08:56 Test Item Value Reference Range Interpretation Comments BUN (test code = BUN) 47 7-22 [place] 936179-07-26 19:08:56 Test Item Value Reference Range Interpretation Comments Creatinine Lvl (test code = Creatinine 5.77 0.50-1.40 Lvl) [facility]2019-07-26 19:08:56 Test Item Value Reference Range Interpretation Comments Glucose Lvl (test code = Glucose Lvl) 131 70-99 [facility] ArlingtonAdtgfmfMQDRXRSSQT3538-64-05 19:08:56 Test Item Value Reference Range Interpretation Comments Hct (test code = Hct) 26.2 36.0-48.0 [facility] ArlingtonZabekjkGMINSXCVUC8953-60-85 19:08:56 Test Item Value Reference Range Interpretation Comments Hgb (test code = Hgb) 8.3 12.0-16.0 [facility] ArlingtonNopthjoGKAXJBLGJH2259-46-75 19:08:56 Test Item Value Reference Range Interpretation Comments RBC (test code = RBC) 2.98 4.20-5.40 [facility] ArlingtonDpmsiqkFKIGORHIRQ1333-96-29 19:08:56 Test Item Value Reference Range Interpretation Comments WBC (test code = WBC) 4.6 3.7-10.4 [facility] ArlingtonCcydxcoHBDAXLDDES6779-29-58 19:08:56 Test Item Value Reference Range Interpretation Comments RDW (test code = RDW) 16.7 11.5-14.5 [facility] ArlingtonFfwwisfHKACCDIYMJ2246-52-85 19:08:56 Test Item Value Reference Range Interpretation Comments MCHC (test code = MCHC) 31.8 32.0-36.0 [facility] ArlingtonYazggdwZLMCBHUVXC3524-56-47 19:08:56 Test Item Value Reference Range Interpretation Comments MCH (test code = MCH) 28.0 pg 27.0-31.0 [facility] ArlingtonMyrbiyiVZENVRPFXK3851-94-65 19:08:56 Test Item Value Reference Range Interpretation Comments MCV (test code = MCV) 87.9 80.0-98.0 [facility] ArlingtonUmqyoxcCTPEKRUNAR6033-44-24 19:08:56 Test Item Value Reference Range Interpretation Comments MPV (test code = MPV) 9.1 7.4-10.4 [facility] ArlingtonCddtqezCCGABCIDPZ7781-46-04 19:08:56 Test Item Value Reference Range Interpretation Comments Platelet (test code = Platelet) 140 133-450 [facility] ArlingtonTlhvqubFYXENTKRNF2226-63-86 19:08:56 Test Item Value Reference Range Interpretation Comments Eosinophils # (test code 0.1 See_Comment [A utomated message] The = Eosinophils #) system whic h generated this result tra nsmitted reference range : <=0.5. The reference r eileen was not used to int erpret this result as normal/abnormal . [facility] ArlingtonVlevbqySNTJKQNYXA3933-74-10 19:08:56 Test Item Value Reference Range Interpretation Comments Monocytes # (test code 0.6 See_Comment [Aut omated message] The = Monocytes #) system which generated this result tra nsmitted reference range : <=0.8. The reference r eileen was not used to int erpret this result as normal/abnormal . [facility] ArlingtonHpaiqzpKGFKMCLWSZ3951-77-16 19:08:56 Test Item Value Reference Range Interpretation Comments Lymphocytes # (test code = Lymphocytes 0.9 1.0-5.5 #) [facility] ArlingtonMsrkdboLCSWNSZQRF7000-19-69 19:08:56 Test Item Value Reference Range Interpretation Comments Lymphocytes (test code = Lymphocytes) 19.1 20.0-40.0 [facility] ArlingtonCqyyulmXUHHZDAJKZ9841-27-70 19:08:56 Test Item Value Reference Range Interpretation Comments Segs (test code = Segs) 65.9 45.0-75.0 [facility] ArlingtonDfqgufgZAQMBGQHAP9043-35-78 19:08:56 Test Item Value Reference Range Interpretation Comments Eosinophils (test code = 2.3 See_Comment [A utomated message] The Eosinophils) system which ge nerated this result tra nsmitted reference range : <=4.0. The reference r eileen was not used to int erpret this result as normal/abnormal . [facility] ArlingtonCfxwpakIWLNIAPISQ1002-64-72 19:08:56 Test Item Value Reference Range Interpretation Comments Monocytes (test code = Monocytes) 12.1 2.0-12.0 [facility] ArlingtonCuoqnicZRCQFYMXUY8027-04-83 19:08:56 Test Item Value Reference Range Interpretation Comments Neutrophils # (test code = Neutrophils 3.1 1.5-8.1 #) [facility] ArlingtonKsbnqmfZNDJERNAWR3105-24-41 19:08:56 Test Item Value Reference Range Interpretation Comments Basophils (test code = 0.6 See_Comment [Aut omated message] The Basophils) system which ge nerated this result tra nsmitted reference range : <=1.0. The reference r eileen was not used to int erpret this result as normal/abnormal . [facility]2019-07-26 19:08:56 Test Item Value Reference Range Interpretation Comments eGFR (test code = eGFR) 8 [facility]2019-07-26 19:08:56 Test Item Value Reference Range Interpretation Comments Potassium Lvl (test code = Potassium 3.3 3.5-5.1 Lvl) [facility]2019-07-26 19:08:56 Test Item Value Reference Range Interpretation Comments Chloride Lvl (test code = Chloride Lvl) 108 95-109 [place] 936179-07-26 19:08:56 Test Item Value Reference Range Interpretation Comments CO2 (test code = CO2) 23 24-32 [facility]2019-07-26 19:08:56 Test Item Value Reference Range Interpretation Comments Calcium Lvl (test code = Calcium Lvl) 10.1 8.5-10.5 [facility]2019-07-26 19:08:56 Test Item Value Reference Range Interpretation Comments AGAP (test code = AGAP) 12.3 10.0-20.0 [facility]2019-07-26 19:08:56 Test Item Value Reference Range Interpretation Comments Sodium Lvl (test code = Sodium Lvl) 140 135-145 [facility]2019-07-26 19:08:56 Test Item Value Reference Range Interpretation Comments BUN (test code = BUN) 47 7-22 [facility]2019-07-26 19:08:56 Test Item Value Reference Range Interpretation Comments Creatinine Lvl (test code = Creatinine 5.77 0.50-1.40 Lvl) [facility]2019-07-26 19:08:56 Test Item Value Reference Range Interpretation Comments Glucose Lvl (test code = Glucose Lvl) 131 70-99 [facility] ArlingtonImambvfYQNRWVEOCA8811-59-84 19:08:56 Test Item Value Reference Range Interpretation Comments Hct (test code = Hct) 26.2 36.0-48.0 [facility] ArlingtonMxtsqaiALEZJPAOLP8020-16-48 19:08:56 Test Item Value Reference Range Interpretation Comments Hgb (test code = Hgb) 8.3 12.0-16.0 [facility] ArlingtonWkozpdbDOVZOLSHHL7708-76-65 19:08:56 Test Item Value Reference Range Interpretation Comments RBC (test code = RBC) 2.98 4.20-5.40 [facility] ArlingtonXpewdiyEDGBSQGHYG2641-50-36 19:08:56 Test Item Value Reference Range Interpretation Comments WBC (test code = WBC) 4.6 3.7-10.4 [facility] ArlingtonHmrerbzKQYAZINTCI6954-39-27 19:08:56 Test Item Value Reference Range Interpretation Comments RDW (test code = RDW) 16.7 11.5-14.5 [facility] ArlingtonDiwfiakJVJOCVVAWE3219-90-85 19:08:56 Test Item Value Reference Range Interpretation Comments MCHC (test code = MCHC) 31.8 32.0-36.0 [facility] ArlingtonXcgqdojKEUUKCIERH6599-45-14 19:08:56 Test Item Value Reference Range Interpretation Comments MCH (test code = MCH) 28.0 pg 27.0-31.0 [facility] ArlingtonOzvphicUBFEWJDJJU9767-45-12 19:08:56 Test Item Value Reference Range Interpretation Comments MCV (test code = MCV) 87.9 80.0-98.0 [facility] ArlingtonBpjnkiyWDTPXGJAVO2824-49-06 19:08:56 Test Item Value Reference Range Interpretation Comments MPV (test code = MPV) 9.1 7.4-10.4 [facility] ArlingtonDbbotscAWNVWYESFB4392-33-41 19:08:56 Test Item Value Reference Range Interpretation Comments Platelet (test code = Platelet) 140 133-450 [facility] ArlingtonSvotenvTGBLONESEU0719-25-18 19:08:56 Test Item Value Reference Range Interpretation Comments Eosinophils # (test code 0.1 See_Comment [A utomated message] The = Eosinophils #) system whic h generated this result tra nsmitted reference range : <=0.5. The reference r eileen was not used to int erpret this result as normal/abnormal . [facility] [place]RrnpvduNAABJHSTQR3845-50-20 19:08:56 Test Item Value Reference Range Interpretation Comments Monocytes # (test code 0.6 See_Comment [Aut omated message] The = Monocytes #) system which generated this result tra nsmitted reference range : <=0.8. The reference r eileen was not used to int erpret this result as normal/abnormal . [facility] ArlingtonLipjanuXHALATEDXN7209-91-45 19:08:56 Test Item Value Reference Range Interpretation Comments Lymphocytes # (test code = Lymphocytes 0.9 1.0-5.5 #) [facility] ArlingtonIlhhaaoKFXRCCLLTF9154-43-17 19:08:56 Test Item Value Reference Range Interpretation Comments Lymphocytes (test code = Lymphocytes) 19.1 20.0-40.0 [facility] ArlingtonWyqrxafXKGMSQLLIQ9036-15-98 19:08:56 Test Item Value Reference Range Interpretation Comments Segs (test code = Segs) 65.9 45.0-75.0 [facility] ArlingtonBpuzrzqXBDPQMKQLB5645-08-19 19:08:56 Test Item Value Reference Range Interpretation Comments Eosinophils (test code = 2.3 See_Comment [A utomated message] The Eosinophils) system which ge nerated this result tra nsmitted reference range : <=4.0. The reference r eileen was not used to int erpret this result as normal/abnormal . [facility] ArlingtonKcmzmhcEETTDXYYKG9737-27-09 19:08:56 Test Item Value Reference Range Interpretation Comments Monocytes (test code = Monocytes) 12.1 2.0-12.0 [facility] ArlingtonQsjqvjcWOOXNRVRLR1059-76-70 19:08:56 Test Item Value Reference Range Interpretation Comments Neutrophils # (test code = Neutrophils 3.1 1.5-8.1 #) [facility] ArlingtonRsoxmymWQHPKKWDUC9847-43-33 19:08:56 Test Item Value Reference Range Interpretation Comments Basophils (test code = 0.6 See_Comment [Aut omated message] The Basophils) system which ge nerated this result tra nsmitted reference range : <=1.0. The reference r eileen was not used to int erpret this result as normal/abnormal . [facility]2019-07-26 19:08:56 Test Item Value Reference Range Interpretation Comments eGFR (test code = eGFR) 8 [facility]2019-07-26 19:08:56 Test Item Value Reference Range Interpretation Comments Potassium Lvl (test code = Potassium 3.3 3.5-5.1 Lvl) [facility]2019-07-26 19:08:56 Test Item Value Reference Range Interpretation Comments Chloride Lvl (test code = Chloride Lvl) 108 95-109 [facility]2019-07-26 19:08:56 Test Item Value Reference Range Interpretation Comments CO2 (test code = CO2) 23 24-32 [place] 936179-07-26 19:08:56 Test Item Value Reference Range Interpretation Comments Calcium Lvl (test code = Calcium Lvl) 10.1 8.5-10.5 [facility]2019-07-26 19:08:56 Test Item Value Reference Range Interpretation Comments AGAP (test code = AGAP) 12.3 10.0-20.0 [facility]2019-07-26 19:08:56 Test Item Value Reference Range Interpretation Comments Sodium Lvl (test code = Sodium Lvl) 140 135-145 [facility]2019-07-26 19:08:56 Test Item Value Reference Range Interpretation Comments BUN (test code = BUN) 47 7-22 [facility]2019-07-26 19:08:56 Test Item Value Reference Range Interpretation Comments Creatinine Lvl (test code = Creatinine 5.77 0.50-1.40 Lvl) [facility]2019-07-26 19:08:56 Test Item Value Reference Range Interpretation Comments Glucose Lvl (test code = Glucose Lvl) 131 70-99 [facility] ArlingtonXswocwxLQAHDSWVKM1198-08-53 19:08:56 Test Item Value Reference Range Interpretation Comments Hct (test code = Hct) 26.2 36.0-48.0 [facility] ArlingtonUtjbydxTNVLADMPAD7183-66-59 19:08:56 Test Item Value Reference Range Interpretation Comments Hgb (test code = Hgb) 8.3 12.0-16.0 [facility] ArlingtonZtnezjbZBCFBQLJDY0412-40-12 19:08:56 Test Item Value Reference Range Interpretation Comments RBC (test code = RBC) 2.98 4.20-5.40 [facility] ArlingtonNhoofthQHOXHGLAGP2668-97-60 19:08:56 Test Item Value Reference Range Interpretation Comments WBC (test code = WBC) 4.6 3.7-10.4 [facility] ArlingtonGeudyylKGTDZGFQSP1156-71-79 19:08:56 Test Item Value Reference Range Interpretation Comments RDW (test code = RDW) 16.7 11.5-14.5 [facility] ArlingtonVcintnsETKEPEOBHM2560-78-69 19:08:56 Test Item Value Reference Range Interpretation Comments MCHC (test code = MCHC) 31.8 32.0-36.0 [place] 061689-07-26 19:08:56 Test Item Value Reference Range Interpretation Comments MCH (test code = MCH) 28.0 pg 27.0-31.0 [facility] ArlingtonLxmgtueASPXIITWJT5727-87-90 19:08:56 Test Item Value Reference Range Interpretation Comments MCV (test code = MCV) 87.9 80.0-98.0 [facility] ArlingtonCbeogecXXPPLBIYUB6028-15-86 19:08:56 Test Item Value Reference Range Interpretation Comments MPV (test code = MPV) 9.1 7.4-10.4 [facility] ArlingtonStkpezkYBKJVPOUCQ9999-56-59 19:08:56 Test Item Value Reference Range Interpretation Comments Platelet (test code = Platelet) 140 133-450 [facility] ArlingtonOrrxernJFDXFZWAPU1125-75-37 19:08:56 Test Item Value Reference Range Interpretation Comments Eosinophils # (test code 0.1 See_Comment [A utomated message] The = Eosinophils #) system whic h generated this result tra nsmitted reference range : <=0.5. The reference r eileen was not used to int erpret this result as normal/abnormal . [facility] ArlingtonTzrnhwbVKMLIVHRHT1678-75-32 19:08:56 Test Item Value Reference Range Interpretation Comments Monocytes # (test code 0.6 See_Comment [Aut omated message] The = Monocytes #) system which generated this result tra nsmitted reference range : <=0.8. The reference r eileen was not used to int erpret this result as normal/abnormal . [facility] ArlingtonEupwtwsPQNXWVPRKB3928-93-04 19:08:56 Test Item Value Reference Range Interpretation Comments Lymphocytes # (test code = Lymphocytes 0.9 1.0-5.5 #) [facility] ArlingtonVefhqdfIBDOKOGIUT0916-44-44 19:08:56 Test Item Value Reference Range Interpretation Comments Lymphocytes (test code = Lymphocytes) 19.1 20.0-40.0 [facility] ArlingtonZkocykwEFMQMUQJYG0606-10-66 19:08:56 Test Item Value Reference Range Interpretation Comments Segs (test code = Segs) 65.9 45.0-75.0 [facility] ArlingtonErpqsprPCULUPQGBX5403-80-80 19:08:56 Test Item Value Reference Range Interpretation Comments Eosinophils (test code = 2.3 See_Comment [A utomated message] The Eosinophils) system which ge nerated this result tra nsmitted reference range : <=4.0. The reference r eileen was not used to int erpret this result as normal/abnormal . [facility] ArlingtonGwgfzbxLDCXGODNQO9572-27-17 19:08:56 Test Item Value Reference Range Interpretation Comments Monocytes (test code = Monocytes) 12.1 2.0-12.0 [facility] ArlingtonTqzxyjsGCRTPJCOIM2569-53-33 19:08:56 Test Item Value Reference Range Interpretation Comments Neutrophils # (test code = Neutrophils 3.1 1.5-8.1 #) [facility] ArlingtonJbwamjjZXGMVJKWCR6956-63-77 19:08:56 Test Item Value Reference Range Interpretation Comments Basophils (test code = 0.6 See_Comment [Aut omated message] The Basophils) system which ge nerated this result tra nsmitted reference range : <=1.0. The reference r eileen was not used to int erpret this result as normal/abnormal . [facility]2019-07-26 19:08:56 Test Item Value Reference Range Interpretation Comments eGFR (test code = eGFR) 8 [facility]2019-07-26 19:08:56 Test Item Value Reference Range Interpretation Comments Potassium Lvl (test code = Potassium 3.3 3.5-5.1 Lvl) [facility]2019-07-26 19:08:56 Test Item Value Reference Range Interpretation Comments Chloride Lvl (test code = Chloride Lvl) 108 95-109 [facility]2019-07-26 19:08:56 Test Item Value Reference Range Interpretation Comments CO2 (test code = CO2) 23 24-32 [facility]2019-07-26 19:08:56 Test Item Value Reference Range Interpretation Comments Calcium Lvl (test code = Calcium Lvl) 10.1 8.5-10.5 [facility]2019-07-26 19:08:56 Test Item Value Reference Range Interpretation Comments AGAP (test code = AGAP) 12.3 10.0-20.0 [facility]2019-07-26 19:08:56 Test Item Value Reference Range Interpretation Comments Sodium Lvl (test code = Sodium Lvl) 140 135-145 [facility]2019-07-26 19:08:56 Test Item Value Reference Range Interpretation Comments BUN (test code = BUN) 47 7-22 [facility]2019-07-26 19:08:56 Test Item Value Reference Range Interpretation Comments Creatinine Lvl (test code = Creatinine 5.77 0.50-1.40 Lvl) [facility]2019-07-26 19:08:56 Test Item Value Reference Range Interpretation Comments Glucose Lvl (test code = Glucose Lvl) 131 70-99 [facility] ArlingtonItnexxnJIYAZGPUQC1536-61-54 19:08:56 Test Item Value Reference Range Interpretation Comments Hct (test code = Hct) 26.2 36.0-48.0 [facility] ArlingtonZujvwxwXJAPJMVPSG2457-26-01 19:08:56 Test Item Value Reference Range Interpretation Comments Hgb (test code = Hgb) 8.3 12.0-16.0 [facility] ArlingtonNltqfycKWEUVCAYMQ0570-15-89 19:08:56 Test Item Value Reference Range Interpretation Comments RBC (test code = RBC) 2.98 4.20-5.40 [facility] ArlingtonEwlkvtlKJGHEUBHWK9147-12-94 19:08:56 Test Item Value Reference Range Interpretation Comments WBC (test code = WBC) 4.6 3.7-10.4 [facility] ArlingtonQwnaaxvUAJUFZWLJV4511-01-37 19:08:56 Test Item Value Reference Range Interpretation Comments RDW (test code = RDW) 16.7 11.5-14.5 [facility] ArlingtonFwhovgsKIMHZKERNQ1307-09-08 19:08:56 Test Item Value Reference Range Interpretation Comments MCHC (test code = MCHC) 31.8 32.0-36.0 [facility] ArlingtonEwedaupBXATJGJRYL1069-46-57 19:08:56 Test Item Value Reference Range Interpretation Comments MCH (test code = MCH) 28.0 pg 27.0-31.0 [facility] ArlingtonKwztnphKPOPRUSUCI4143-52-27 19:08:56 Test Item Value Reference Range Interpretation Comments MCV (test code = MCV) 87.9 80.0-98.0 [facility] ArlingtonJinwsioYNTWMLGXZY5390-71-48 19:08:56 Test Item Value Reference Range Interpretation Comments MPV (test code = MPV) 9.1 7.4-10.4 [facility] ArlingtonAfbnpgpCAQBLUVUFJ4568-17-60 19:08:56 Test Item Value Reference Range Interpretation Comments Platelet (test code = Platelet) 140 133-450 [facility] ArlingtonTjbngzgGHFDDVLURA3651-87-93 19:08:56 Test Item Value Reference Range Interpretation Comments Eosinophils # (test code 0.1 See_Comment [A utomated message] The = Eosinophils #) system whic h generated this result tra nsmitted reference range : <=0.5. The reference r eileen was not used to int erpret this result as normal/abnormal . [facility] ArlingtonKzpjctaPJMQCLOLIP3675-58-91 19:08:56 Test Item Value Reference Range Interpretation Comments Monocytes # (test code 0.6 See_Comment [Aut omated message] The = Monocytes #) system which generated this result tra nsmitted reference range : <=0.8. The reference r eileen was not used to int erpret this result as normal/abnormal . [facility] ArlingtonZfkjswaELNHCZOXOE2776-86-76 19:08:56 Test Item Value Reference Range Interpretation Comments Lymphocytes # (test code = Lymphocytes 0.9 1.0-5.5 #) [facility] ArlingtonTgznyhbXMBXZINMQA7765-33-39 19:08:56 Test Item Value Reference Range Interpretation Comments Lymphocytes (test code = Lymphocytes) 19.1 20.0-40.0 [facility] ArlingtonIdhbdcuANOQGVXVNN4034-34-56 19:08:56 Test Item Value Reference Range Interpretation Comments Segs (test code = Segs) 65.9 45.0-75.0 [facility] ArlingtonMprvmrpLZFJCAQNAB3093-59-81 19:08:56 Test Item Value Reference Range Interpretation Comments Eosinophils (test code = 2.3 See_Comment [A utomated message] The Eosinophils) system which ge nerated this result tra nsmitted reference range : <=4.0. The reference r eileen was not used to int erpret this result as normal/abnormal . [facility] ArlingtonDeeybpoITLABFCHOM1086-52-64 19:08:56 Test Item Value Reference Range Interpretation Comments Monocytes (test code = Monocytes) 12.1 2.0-12.0 [facility] ArlingtonDnshnxsVKXKHAUOEC2281-09-36 19:08:56 Test Item Value Reference Range Interpretation Comments Neutrophils # (test code = Neutrophils 3.1 1.5-8.1 #) [facility] ArlingtonWzaedcpHXEODVESTG7216-70-42 19:08:56 Test Item Value Reference Range Interpretation Comments Basophils (test code = 0.6 See_Comment [Aut omated message] The Basophils) system which ge nerated this result tra nsmitted reference range : <=1.0. The reference r eileen was not used to int erpret this result as normal/abnormal . [facility] HWCLKMC1687-90-60 14:35:00 Test Item Value Reference Range Interpretation Comments Antibody Scrn (test Negative (01/16/19 9:35 code = Antibody Scrn) AM) [facility] IPBMKZH7920-37-31 14:35:00 Test Item Value Reference Range Interpretation Comments ABO/Rh (test code = ABO/Rh) B POS [facility] ArlingtonThzhtupKGBBCRGNZH7675-97-13 14:35:00 Test Item Value Reference Range Interpretation Comments PT (test code = PT) 14.1 s 12.0-14.7 [facility] ArlingtonPykynesEFIISQWPZQ0823-75-83 14:35:00 Test Item Value Reference Range Interpretation Comments INR (test code = INR) 1.11 1 0.85-1.17 [facility] ArlingtonQsjdnzeRADHTAPXKL0889-90-96 14:35:00 Test Item Value Reference Range Interpretation Comments PTT (test code = PTT) 28.3 s 22.9-35.8 [facility] ZLSHBHA8202-49-48 14:35:00 Test Item Value Reference Range Interpretation Comments Antibody Scrn (test Negative (01/16/19 9:35 code = Antibody Scrn) AM) [facility] USDJWHX8122-90-76 14:35:00 Test Item Value Reference Range Interpretation Comments ABO/Rh (test code = ABO/Rh) B POS [facility] ArlingtonArrvsntPZIWBUGWTL5890-30-34 14:35:00 Test Item Value Reference Range Interpretation Comments PT (test code = PT) 14.1 s 12.0-14.7 [facility] ArlingtonGqorfrwVBDQZHGXSD0580-53-41 14:35:00 Test Item Value Reference Range Interpretation Comments INR (test code = INR) 1.11 1 0.85-1.17 [facility] ArlingtonOcgeeqhDHOMPQKBWK6706-16-39 14:35:00 Test Item Value Reference Range Interpretation Comments PTT (test code = PTT) 28.3 s 22.9-35.8 [facility] RRKMBSA4782-39-08 14:35:00 Test Item Value Reference Range Interpretation Comments Antibody Scrn (test Negative (01/16/19 9:35 code = Antibody Scrn) AM) [facility] NVSEWTZ9337-69-61 14:35:00 Test Item Value Reference Range Interpretation Comments ABO/Rh (test code = ABO/Rh) B POS [facility] ArlingtonYlvgtbmACHJUTKNZY5499-47-12 14:35:00 Test Item Value Reference Range Interpretation Comments PT (test code = PT) 14.1 s 12.0-14.7 [facility] ArlingtonJcodxibTQKCUDAJDC9603-74-90 14:35:00 Test Item Value Reference Range Interpretation Comments INR (test code = INR) 1.11 1 0.85-1.17 [facility] ArlingtonNnqbltaXYOTZAEAAQ2280-45-42 14:35:00 Test Item Value Reference Range Interpretation Comments PTT (test code = PTT) 28.3 s 22.9-35.8 [facility] NINDDAQ6346-29-66 14:35:00 Test Item Value Reference Range Interpretation Comments Antibody Scrn (test Negative (01/16/19 9:35 code = Antibody Scrn) AM) [facility] UXKHZEB5556-03-56 14:35:00 Test Item Value Reference Range Interpretation Comments ABO/Rh (test code = ABO/Rh) B POS [facility] ArlingtonIiatnkhQAXJUNCPZV2489-89-96 14:35:00 Test Item Value Reference Range Interpretation Comments PT (test code = PT) 14.1 s 12.0-14.7 [facility] ArlingtonIlzvhbdREBGWQUWCM7397-72-92 14:35:00 Test Item Value Reference Range Interpretation Comments INR (test code = INR) 1.11 1 0.85-1.17 [facility] ArlingtonKohgxgpUBDRWSDRNW3457-97-79 14:35:00 Test Item Value Reference Range Interpretation Comments PTT (test code = PTT) 28.3 s 22.9-35.8 [facility] BITUJQF7594-68-92 14:35:00 Test Item Value Reference Range Interpretation Comments Antibody Scrn (test Negative (01/16/19 9:35 code = Antibody Scrn) AM) [facility] RBBWEHX5660-10-08 14:35:00 Test Item Value Reference Range Interpretation Comments ABO/Rh (test code = ABO/Rh) B POS [facility] ArlingtonPimbmglLZINZVINDP3958-43-82 14:35:00 Test Item Value Reference Range Interpretation Comments PT (test code = PT) 14.1 s 12.0-14.7 [facility] ArlingtonIipirxuRNTYHQEFBC0225-88-31 14:35:00 Test Item Value Reference Range Interpretation Comments INR (test code = INR) 1.11 1 0.85-1.17 [facility] ArlingtonLiaymdmRDYYFEOBYN4343-95-59 14:35:00 Test Item Value Reference Range Interpretation Comments PTT (test code = PTT) 28.3 s 22.9-35.8 [facility] Notes Date/Time Note Provider Source 2021-03-[address] [facility] 20:48:02-00:00 OPERATIVE/PROCEDURE REPORT ALMA ROSA CORRAL FACILITY: [facility] Billing #: [id number] Room: [address] [place] [address] MR #: [id number] : 1955 DATE OF PROCEDURE: 12/31/2020 SURGEON: Gianna Barnett MD TRAIN CONTROL TECHNICIAN: MADELINE Velazquez. PREOPERATIVE DIAGNOSIS: Progressive upper extrem [...] sponge, instrument, needle counts were correct. RKB/MODL /[id number] 2021-02-[address] [facility] 21:45:55-00:00 PROGRESS NOTE ALMA ROSA CORRAL FACILITY: [facility] Billing #: [id number] Room: [address] [place] [address] MR #: [id number] : 1955 PHYSICIAN: Soo Parkinson MD ADMISSION [...] ation and management of this patient. OM/MODL /[id number] Dictated By: Javier Marx PA-C 2021-02-[address] [facility] 20:22:59-00:00 OPERATIVE/PROCEDURE REPORT ALMA ROSA CORRAL FACILITY: [facility] Billing #: [id number] Room: [address] [place] [address] MR #: [id number] : 1955 DATE OF PROCEDURE: 02/06/2021 SURGEON: Soo Parkinson MD PROCEDURE PERFORMED: EEG. SUBJECTIVE: Ms. Corral is a 65-year-old female u ndergoing EEG to gauge for the extent of encephalopathy in the context of alteration in mental status. TECHNIQUE: This EEG was acquired by [facility] [place] l 10/20 electrode placement system. DESCRIPTION OF PROCEDURE: [...] severity. Clinical co rrelation is advised. MFK/MODL /[id number] 2021-02-[address] [facility] 00:20:08-00:00 CONSULTATION ALMA ROSA CORRAL FACILITY: [facility] Billing #: [id number] Room: [address] [place] [address] MR #: [id number] : 1955 DATE OF ADMISSION: 02/06/2021 DATE OF CONSULTATION: 02/06/2021 REQUESTING PHYSICIAN: Sarah Allen MD LOCK CORNER MACHINE OPERATOR: Soo Parkinson MD REASON FOR CONSULTATION: Altered mental status. HISTORY OF PRESENT ILLNESS: This is a 65-year-ol d female patient, [facility] to worsening mental status and involuntary upper extremity movements. The patient's is by the celi carter, who I obtained all the history from. According to the , the patient was doing extremely well until Saturday ni ght/Saturday morning. Saturday evening, the patient was given [...] agreement with the plan of care. MFK/MODL /[id number] 2021-01-08 [facility] 03:07:00-00:00 [facility] ([facility]) EMERGENCY PROVIDER REPORT REPORT#:[id number] REPORT STATUS: Signed DATE:01/08/21 TIME:030 PATIENT: ALMA ROSA CORRAL UNIT #: [id number] ROOM/BED: : 54 AGE: 65 SEX: F [...] 0144 Pulse 57 01/08 0144 Resp 17 01/084 Last Documented: Result Date Time Pulse Ox 99 01/08 0144 B/P 151/66 01/08 0144 B/P Mean 94 01/08 0144 O2 Delivery Room air 01/08 0144 Temp 36.7 01/08 0144 Pulse 57 01/08 0144 Resp 17 01/084 Review of Vital Signs Reviewed Free Text [...] SCAN - CT ABD PELVIS W/O CONT 01/08 0155 Report Impression - Status: SIGNED Entered: 01/08/2021 0227 IMPRESSION: 1. Minimal free air beneath the [...] right effusion with atelecta sis. Impression By: [email or web address] Ryland Mccoy M.D. Re-Evaluation MDM Re-Evaluation/Progress #1 Text/Dict [...] 0144 Pulse 57 07/18 0144 Resp 17 /18 0144 All vital signs available at the [...] addressed any concerns. The patient and/or careg drew have as good an understanding of the [...] symptoms should prompt an immediate return to [facility] or the closest emergency department or a call to 911. Electronically Signed by Zeus Prado DO on 12/22 02/11 at 0314 RPT #: [id number] END OF REPORT 2020-12-[address] [facility] 08:58:49-00:00 CONSULTATION ALMA ROSA CORRAL FACILITY: [facility] Billing #: [id number] Room: [address] [place] [address] MR #: [id number] : 1955 DATE OF ADMISSION: 12/27/2020 DATE OF CONSULTATION: 12/28/2020 REQUESTING PHYSICIAN: LOCK CORNER MACHINE OPERATOR: Yakov Arcos MD Nephrology Consultation REASON FOR [...] peritoneal dialysis. The patient had dialysis la night and because of fibrinous nature of [...] dialysate to improve her fibrinous exudate. VV/MODL /[id number] 2020-12-[address] [facility] 16:24:09-00:00 OPERATIVE/PROCEDURE REPORT ALMA ROSA CORRAL FACILITY: [facility] Billing #: [id number] Room: [address] [place] [address] MR #: [id number] : 1955 DATE OF PROCEDURE: 12/27/2020 SURGEON: Gianna Barnett MD TRAIN CONTROL TECHNICIAN: MADELINE Velazquez. PREOPERATIVE DIAGNOSIS: Cervical stenosis with [...] it was felt she would benefit fro m surgical intervention, decompression and reconstruction. Risks, benefits, alternatives of surgery were explained to the patient. Informed consent was obtained. DESCRIPTION OF OPERATIVE PROCEDURE: The patient was taken to the operating room, where she was intubated on t he transport cart. She was placed in three-point head fixatio n on [place] and flipped into a prone position on the OR [facility] e. The posterior cervical area was prepped [...] resected from C6 to C7 levels. T he spinous processes have been resected with angled [...] s ponge, instrument, needle counts were correct. RKB/MODL /[id number] 2020-04-06 PROCEDURE INFORMATION: YULIANA Daniel ast 07:29:47-00:00 Exam: XR Chest, 2 Views Exam date and time: 04/06/2020 7:41 AM Age: 64 years old Clinical indication: Screening exam; Additional info: Coughing/preop TECHNIQUE: Imaging protocol: XR of the chest Views: 2 views. PA and Lateral COMPARISON: No relevant prior studies available. FINDINGS: Tubes, catheters and devices: None. Lungs: Mftg-ch-gfobtadc bilateral perihilar and basilar interstitial lung opacities, suggesting pulmonary edema ve rsus infiltrates. The peripheral lungs are otherwise clear. Bilateral pulmonary opaciti es are most prominent within the lower lungs. Pleural space: No pleural effusion or pneumothor ax. Heart/Mediastinum: Cardiac silhouette appears mi ox-ep-yvxvfsojjg enlarged. Vasculature: Mild atherosclerotic calcif ication demonstrated within the aorta. Bones/joints: Diffusely decreased bone density. Mild to moderate generalized bony degenerative changes. IMPRESSION: 1. Suhp-xs-sglugffqna enlarged cardiac silhouett e. 2. Hszt-sw-alxbdgkd pulmonary edema versus infil trates. 3. Chronic degenerative changes. Alex Arias MD On 04/07/2020 12:25:45; VR- [id number] 2019-01-16 Patient Name: ALMA ROSA CORRAL : 1955 [facility] 12:55:00-00:00 Age: 63 years, Female MR: [id number] Study: Chest 1 v for Placement DX 01/16/2019 12:5 5 CDT Indication: Line Placement - Chest 1 view for li ne placement. Comparison: Chest 2 views 01/16/2019. Findings: Lines/tubes: Right internal jugular tunneled central venous catheters with the tips projecting over the expected regions of the right atrium. Kinking of the proximal catheters may represent fixation points with sutures. Cardiovascular: Normal cardiac silhouette. Anu l thoracic aorta. Mediastinum: No mediastinal or hilar mass or lym phadenopathy. Lungs: No parenchymal mass. No focal consolidati on. Pleura: No pleural effusion. No pneumothorax. Soft tissues: Subcutaneous a ir, surgical clips, and skin fuad project over the left upper extremity. Bones: No acute osseous abno rmality. Degenerative changes of the thoracic spine. IMPRESSION: Right internal jugular central venous catheters positioned as above. Postoperative changes of the left upper extremit y. SL: [id number] 2019-01-16 Clinical Indication: Coughing - preoperative. [facility] 08:00:00-00:00 Comparison: None FINDINGS: PA and lateral chest radiographs were obtained. MEDIASTINUM: The cardiac rad hou[place] is mildly enlarged. The aorta is unremarkable. LUNGS: The lungs are clear. No pleural effusion. No pneumothorax. OTHER: No acute osseous abnormalities. IMPRESSION: Cardiomegaly, without acute cardiopulmonary abno rmality identified. SL: [id number] [facility]-11-06 [facility] 14[facility]33[facility]00 REASON FOR EXAM: 620.2. COMPARISON: Pelvic ultrasound [...]
[2023-02-13 21:43] LABS: Absolute Lymphocytes (CBC) 0.7 K/uL (0.7-4.9); Hematocrit 34.9 % (36.0-45.0); Lymphocytes % 11.2 % (15.3-44.8); MCV 87.1 fL (80-100); MPV 8.2 fL (7.6-11.3); Platelets 233 thou/uL (152-406); RBC Red Blood Cell Count 4.01 M/uL (3.86-4.86)
--- NOTE | 2023-02-13 21:48 | RAD REPORT ---
EXAM DESCRIPTION: CT - Head Brain Wo Cont - 02/13/2023 9:39 pm CLINICAL HISTORY: recent CVA;Declining state;Confused Headache, drowsiness, CVA symptomology COMPARISON: Head Brain Wo Cont dated 11/16/2022; Head angio dated 02/05/2021; Brain Wo Cont dated 12/21 TECHNIQUE: All CT scans are performed using dose optimization technique as appropriate and may inclu de automated exposure control or mA/KV adjustment according to patient size. FINDINGS: No intracranial hemorrhage, hydrocephalus or extra-axial fluid collection.Mild generalized brain atrophy is present with moderate periventricular and deep white matter chronic microvascular i schemic changes.Gliosis is seen in the left subinsular cortex likely attributable to prior infarction . The paranasal sinuses and mastoids are clear. The calvarium is intact. Mild vertebral atherosclerosis IMPRESSION: No acute intracranial abnormality.
--- NOTE | 2023-02-13 21:49 | RAD REPORT ---
EXAM DESCRIPTION: RAD - Chest Single View - 02/13/2023 9:40 pm CLINICAL HISTORY: confusion, ESRD Chest pain. COMPARISON: Chest Single View dated 02/05/2021; Chest Single View dated 09/17/2020; Abdomen 1 View ([facility]) dated 09/17/2020; Chest Single View dated 07/29/2020 FINDINGS: Portable technique limits examination quality. Mild bilateral pulmonary opacities are present probably representing pulmonary edema. The heart is mo derately enlarged in size. No displaced fractures. IMPRESSION: The findings favor mild CHF.
[2023-02-13 22:00] LABS: Potassium 3.7 mEq/L (3.5-5.1); SARS-CoV-2 Antigen Rapid Res Negative (Negative)
[2023-02-14 00:08] LABS: Urine Bacteria None Seen /HPF (<20); Urine Bilirubin NEGATIVE (Negative); Urine Blood 1+ (Negative); Urine Clarity Turbid (Clear); Urine Color Yellow (Yellow); Urine Glucose NEGATIVE (Negative); Urine Protein 1+ (Negative); Urine RBC <5 /HPF (None Seen); Urine Urobilinogen Normal (Normal)
--- NOTE | 2023-02-14 00:22 | ER ---
Nurse's Notes [facility] Name: Alma Rosa Corral Age: 67 yrs Sex: Female : 1955 Arrival Date: 02/13/2023 Time: 20:20 Bed 6 Private MD: Diagnosis: Other malaise and fatigue;End stage renal disease Presentation: 02/13 20:35 Chief complaint: Patient's son or daughter states: Generalized weakness, along with nj1 confusion for the past 2 weeks. Decreased appetite. Does Peritoneal Dialysis daily at home. 20:35 Method Of Arrival: Wheelchair nj1 20:35 Coronavirus screen: Vaccine status: Patient reports receiving the 2nd dose of the covid nj1 vaccine. Ebola Screen: Patient denies travel to an Ebola-affected area in the 21 days before illness onset. Initial Sepsis Screen: Does the patient meet any 2 criteria? Altered Mental Status. HR > 90 bpm. Does the patient have a suspected source of infection? No. Patient's initial sepsis screen is negative. Risk Assessment: Do you want to hurt yourself or someone else? Unable to obtain. Onset of symptoms was January 2023. 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 - Social history:: Smoking status: Patient denies any tobacco usage or history of. - Family history:: not pertinent. - Hospitalizations: : No recent hospitalization is reported. Screenin:43 [facility] ED Fall Risk Assessment (Adult) History of falling in the last 3 months, rv including since admission No falls in past 3 months (0 pts) Confusion or Disorientation No (0 pts) Intoxicated or Sedated No (0 pts) Impaired Gait No (0 pts) Mobility Assist Device Used No (0 pt) Altered Elimination No (0 pt) Score/Fall Risk Level 0 - 2 = Low Risk Oriented to surroundings, Maintained a safe environment, Educated pt \T\ family on fall prevention, incl call for assistance when getting out of bed, Assessed \T\ reinforced patient's understanding of fall precautions, Provided non-skid footwear, Hourly rounding (assess needs \T\ fall precautionary measures) done, Used ambulatory aids as needed (educated on \T\ assisted with), Used gait belt as appropriate. Abuse screen: Denies threats or abuse. Denies injuries from another. Nutritional screening: No deficits noted. Tuberculosis screening: No symptoms or risk factors identified. Assessment: 22:00 General: Appears comfortable, Behavior is calm, cooperative. rv 22:00 Pain: Denies pain. Neuro: Level of Consciousness is awake, alert, obeys commands, rv Oriented to person, place. Cardiovascular: Capillary refill < 3 seconds. Respiratory: Airway is patent Respiratory effort is even, unlabored. GI: Abdomen is round non-distended. : No signs and/or symptoms were reported regarding the genitourinary system. 22:22 Reassessment: No changes from previously documented assessment. Patient and/or family vc1 updated on plan of care and expected duration. Pain level reassessed. 23:09 Reassessment: No changes from previously documented assessment. Patient and/or family vc1 updated on plan of care and expected duration. Pain level reassessed. 02/14 00:02 Reassessment: No changes from previously documented assessment. Patient and/or family vc1 updated on plan of care and expected duration. Pain level reassessed. Vital Signs: 02/13 20:35 BP 158 / 85; Pulse 115; Resp 18; Temp 97.8(O); Pulse Ox 98% on R/A; Weight 58.97 kg [facility] (R); Height 5 ft. 3 in. ; 22:25 BP 121 / 68; Pulse 67; Resp 18; Pulse Ox 100% ; vc1 23:09 BP 130 / 77; Pulse 65; Resp 18; Pulse Ox 95% ; vc1 02/14 00:07 BP 122 / 55; Pulse 55; Resp 18; Pulse Ox 93% ; vc1 02/13 20:35 Body Mass Index 23.03 (58.97 kg, 160.02 cm) [facility] ED Course: 02/13 20:31 Patient arrived in ED. jj6 20:32 Gallito Prado MD is Attending Physician. rn 20:49 Triage completed. nj1 20:49 Arm band placed on. nj1 20:51 Brian Pretty, JENNY is Primary Nurse. rv 21:30 Inserted saline lock: 22 gauge in right forearm, using aseptic technique. Blood rv collected. 21:40 CT Head Brain wo Cont In Process Unspecified. EDMS 21:42 XRAY Chest (1 view) In Process Unspecified. EDMS 22:44 Patient has correct armband on for positive identification. Placed in gown. Bed in low rv position. Call light in reach. Side rails up X 1. Adult w/ patient. Provided Education on: FALL. Client placed on continuous cardiac and pulse oximetry monitoring. NIBP monitoring applied. investigator operator on. 22:44 No provider procedures requiring assistance completed. rv 23:56 Urinalysis w/ reflexes Sent. rv1 02/14 00:33 IV discontinued, intact, bleeding controlled, No redness/swelling at site. Pressure vc1 dressing applied. Administered Medications: No medications were administered Medication: 02/13 22:44 VIS not applicable for this client. rv Outcome: 02/14 00:22 Discharge ordered by . rn 00:33 Discharged to home via wheelchair, with significant other. vc1 00:33 Condition: improved 00:33 Discharge instructions given to significant other, senior recruitment consultant, Instructed on discharge instructions, follow up and referral plans. Demonstrated understanding of instructions, follow-up care. 00:34 Patient left the ED. vc1 Signatures: Dispatcher [employer] EDMS Gallito Prado MD MD rn Vicente, Ronaldo RN RN rv Jackie [email or web address] Codie Be RN RN vc1 Shae Davis rv1 Anu Dixon RN RN nj1
--- NOTE | 2023-02-14 00:22 | EDPHYS ---
Physician Documentation [facility] Name: Alma Rosa Corral Age: 67 yrs Sex: Female : 1955 Arrival Date: 02/13/2023 Time: 20:20 Bed 6 Private MD: ED Physician Gallito Prado HPI: 02/13 20:51 This 67 yrs old Black Female presents to ER via Wheelchair with complaints of Decreased rn Appetite, General Weakness. 20:51 This 67 yrs old Black Female presents to ER via Wheelchair with complaints of Decreased rn Appetite, General Weakness. 20:51 The patient presents with confusion, decreased mental status, trouble concentrating. rn Onset: The symptoms/episode began/occurred at an unknown time. family reports declining state "for months", worse over last week. Possible causes: unknown. Current symptoms: In the emergency department the patient's symptoms have improved. The patient has experienced similar episodes in the past. The patient has not recently seen a physician. Majority of HPI from family members, who state declining state since fall and head injury/CVA a few months ago, worse over last week, with periods of confusion, slow to respond, disorientation. No seizure activity. Has seen neurology for this with ct head 1 month ago, and just had EEG that ruled out seizures. Patient's doctors have also been slowly decreasing her number of medications including gabapentin/muscle relaxer/pain meds. . 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 - Social history:: Smoking status: Patient denies any tobacco usage or history of. - Family history:: not pertinent. - Hospitalizations: : No recent hospitalization is reported. ROS: 20:51 Constitutional: Negative for fever, chills, and weight loss, Eyes: Negative for injury, rn pain, redness, and discharge, Neck: Negative for injury, pain, and swelling, Cardiovascular: Negative for chest pain, palpitations, and edema, Respiratory: Negative for shortness of breath, cough, wheezing, and pleuritic chest pain, Abdomen/GI: Negative for abdominal pain, nausea, vomiting, diarrhea, and constipation, Back: Negative for injury and pain, MS/Extremity: Negative for injury and deformity, Skin: Negative for injury, rash, and discoloration, Neuro: Negative for headache, weakness, numbness, tingling, and seizure. Exam: 20:51 Constitutional: This is a well developed, well nourished patient who is awake, alert, rn and in no acute distress. Head/Face: Normocephalic, atraumatic. ENT: dry MM Cardiovascular: Tachycardic, irregular. Respiratory: No increased work of breathing, no retractions or nasal flaring. Abdomen/GI: soft, non-tender, PD catheter without signs of infection Skin: Warm, dry MS/ Extremity: Pulses equal, no cyanosis. Neuro: Awake and alert, GCS 15, oriented to person and place, not year. 21:34 ECG was reviewed by the Attending Physician. rn Vital Signs: 20:35 BP 158 / 85; Pulse 115; Resp 18; Temp 97.8(O); Pulse Ox 98% on R/A; Weight 58.97 kg nj1 (R); Height 5 ft. 3 in. ; 22:25 BP 121 / 68; Pulse 67; Resp 18; Pulse Ox 100% ; vc1 23:09 BP 130 / 77; Pulse 65; Resp 18; Pulse Ox 95% ; vc1 02/14 00:07 BP 122 / 55; Pulse 55; Resp 18; Pulse Ox 93% ; vc1 02/13 20:35 Body Mass Index 23.03 (58.97 kg, 160.02 cm) nj MDM: 02/13 20:32 Patient medically screened. rn 02/14 00:20 Differential Diagnosis: CVA, electrolyte abnormality, intracranial bleed, pneumonia, rn seizure, TIA, UTI, volume depletion. Data reviewed: vital signs, nurses notes, lab test result(s), EKG, radiologic studies, CT scan, plain films, and as a result, I will discharge patient. Care significantly affected by the following chronic conditions: Hypertension, Chronic Kidney Disease, Stroke. Counseling: I had a detailed discussion with the patient and/or guardian regarding the historical points, exam findings, and any diagnostic results supporting the discharge/admit diagnosis, lab results, radiology results, the need for outpatient follow up, to return to the emergency department if symptoms worsen or persist or if there are any questions or concerns that arise at home. Special discussion: I discussed with the patient/guardian in detail that at this point there is no indication for admission to the hospital. It is understood, however, that if the symptoms persist or worsen the patient needs to return immediately for re-evaluation. Based on the history and exam findings, there is no indication for further emergent testing or inpatient evaluation. I discussed with the patient/guardian the need to see the neurologist for further evaluation of the symptoms. ED course: No acute findings to suggest infection, afebrile, stable vitals, ct head without acute findings, her doctors have been cutting down meds, will dc home with continued neuro f/u and given return precautions.. 02/13 20:49 Order name: CBC with Diff; Complete Time: 21:52 rn 02/13 20:49 Order name: Basic Metabolic Panel; Complete Time: 22:20 rn 02/13 20:49 Order name: Urinalysis w/ reflexes; Complete Time: 00:11 02/13 20:49 Order name: SARS RAPID; Complete Time: 22:20 rn 02/13 20:49 Order name: Flu; Complete Time: 21:57 rn 02/13 20:50 Order name: BNP; Complete Time: 22:20 rn 02/13 20:49 Order name: CT Head Brain wo Cont; Complete Time: 21:52 rn 02/13 20:49 Order name: XRAY Chest (1 view); Complete Time: 21:52 rn 02/13 20:50 Order name: EKG; Complete Time: 20:51 rn 02/13 20:49 Order name: IV Start; Complete Time: 21:29 rn 02/13 20:50 Order name: EKG - Nurse/Tech; Complete Time: 21:29 rn 02/13 23:24 Order name: Modi; Complete Time: 23:24 rv1 EC/23 21:34 Rate is 69 beats/min. Rhythm is regular. QRS Ava is Normal. NM interval is normal. QRS rn interval is normal. QT interval is normal. No Q waves. No ST changes noted. Clinical impression: NSR w/ Non-specific ST/T Changes. Interpreted by me. Reviewed by me. Administered Medications: No medications were administered Disposition Summary: 02/14/23 00:22 Discharge Ordered Location: Home rn Problem: an ongoing problem rn Symptoms: are unchanged rn Condition: Stable rn Diagnosis - Other malaise and fatigue rn - End stage renal disease rn Followup: rn - With: Private Physician - When: As needed - Reason: Recheck today's complaints, Re-evaluation by your physician Discharge Instructions: - Discharge Summary Sheet rn - Stroke crucible furnace tender - End-Stage Kidney Disease rn Forms: - Medication Reconciliation Form rn - Thank You Letter rn - Antibiotic tool grinder operator external - Prescription Opioid Use rn - Patient Portal Instructions rn - Leadership Thank You Letter rn Signatures: Dispatcher [employer] Gallito Gonzalez MD MD rn Villegas, Rebecca rv1 Anu Dixon RN RN nj1
[2023-02-14 00:51] VITALS: TEMP 97.8
[2023-02-14 00:56] VITALS: BP 122/55; O2SAT 93
--- NOTE | 2023-02-14 12:37 | EKG ---
Test Date: 2023-02-13 Test Time: 21:27:55 Leasing Professional: MARCIE MEASUREMENT RESULTS: Intervals: Rate: 69 CA: 162 QRSD: 76 QT: 408 QTc: 437 Ferney: P: 65 CA: 162 QRS: 21 T: 32 INTERPRETIVE STATEMENTS: Sinus rhythm with premature supraventricular complexes Nonspecific ST abnormality Abnormal ECG Compared to ECG 02/05/2021 14:13:52 ST (T wave) deviation now present Left ventricular hypertrophy no longer present Electronically Signed On 02-14-23 12:36:40 CDT by Ortiz Motta
== END 2023-02-14 00:34 | disposition home or self-care (01) ==
LOC: ER 20:20
DX: R53.83 Other fatigue (principal); I12.0 Hypertensive chronic kidney disease with stage 5 chronic kidney disease or end stage renal disease; N18.6 End stage renal disease; Z99.2 Dependence on renal dialysis; Z86.73 Personal history of transient ischemic attack (TIA), and cerebral infarction without residual deficits; Z88.8 Allergy status to other drugs, medicaments and biological substances; Z20.822 Contact with and (suspected) exposure to COVID-19
CPT/HCPCS: 36415; 70450; 71045; 80048; 81001; 83880; 85025; 87804; 87811; 93005; 99284

== ENCOUNTER 2023-04-28 14:02 | Emergency (ER) | payer OTHER ==
--- OUTSIDE RECORDS SUMMARY | 2023-04-28 14:26 | XMS REPORT | Continuity of Care Document ---
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 CDT, Weight gabapentin 1-0 Yes 300 mg = 1 M emoria 300 MG Oral 8-10 cap, PO, l Capsule 19:55: Bedtime, # Herm vin 00 30 cap, 3 Refill(s), Pharmacy: [facility] #[id number], 160.02, cm, 10/31/20 10:11:00 CDT, Height, 60, kg, 10/31/20 10:11:00 CDT, Weight gabapentin 1-0 Yes 300 mg = 1 M emoria 300 MG Oral 8-10 cap, PO, l Capsule 19:55: Bedtime, # Herm vin 00 30 cap, 3 Refill(s), Pharmacy: [facility] #[id number], 160.02, cm, 10/31/20 10:11:00 CDT, Height, 60, kg, 10/31/20 10:11:00 CDT, Weight gabapentin 2020-0 Yes 300 mg = 1 M emoria 300 MG Oral 8-10 cap, PO, l Capsule 19:55: Bedtime, # Herm vin 00 30 cap, 3 Refill(s), Pharmacy: [facility] #[id number], 160.02, cm, 10/31/20 10:11:00 CDT, Height, 60, kg, 10/31/20 10:11:00 CDT, Weight gabapentin 2020-0 Yes 300 mg = 1 M emoria 300 MG Oral 8-10 cap, PO, l Capsule 19:55: Bedtime, # Herm vin 00 30 cap, 3 Refill(s), Pharmacy: [facility] #[id number], 160.02, cm, 10/31/20 10:11:00 CDT, Height, 60, kg, 10/31/20 10:11:00 CDT, Weight tizanidine 2020-0 No 4 mg = 1 Mem oria 4 MG Oral 8-10 tab, PO, l Tablet 19:54: Q8H, # 90 Keenan n [Zanaflex] 00 tab, 3 Refill(s), [id number], 160.02, cm, 10/31/20 10:11:00 CDT, Height, 60, kg, 10/31/20 10:11:00 CDT, Weight tizanidine 2021-0 No 4 mg = 1 Mem oria 4 MG Oral 8-10 tab, PO, l Tablet 19:54: Q8H, # 90 Keenan n [Zanaflex] 00 tab, 3 Refill(s), [id number], 160.02, cm, 10/31/20 10:11:00 CDT, Height, 60, kg, 10/31/20 10:11:00 CDT, Weight tizanidine 2021-0 No 4 mg = 1 Mem oria 4 MG Oral 8-10 tab, PO, l Tablet 19:54: Q8H, # 90 Keenan n [Zanaflex] 00 tab, 3 Refill(s), [id number], 160.02, cm, 10/31/20 10:11:00 CDT, Height, 60, kg, 10/31/20 10:11:00 CDT, Weight tizanidine 2021-0 No 4 mg = 1 Mem oria 4 MG Oral 8-10 tab, PO, l Tablet 19:54: Q8H, # 90 Keenan n [Zanaflex] 00 tab, 3 Refill(s), [facility][id number], 160.02, cm, 10/31/20 10:11:00 CDT, Height, 60, kg, 10/31/20 10:11:00 CDT, Weight tizanidine 2021-0 No 4 mg = 1 Mem oria 4 MG Oral 8-10 tab, PO, l Tablet 19:54: Q8H, # 90 Keenan n [Zanaflex] 00 tab, 3 Refill(s), [id number], 160.02, cm, 10/31/20 10:11:00 CDT, Height, 60, kg, 10/31/20 10:11:00 CDT, Weight tizanidine 0 No 4 mg = 1 Mem oria 4 MG Oral 8-10 tab, PO, l Tablet 19:54: Q8H, # 90 Keenan n [Zanaflex] 00 tab, 3 Refill(s), Pharmacy: [facility] #[id number], 160.02, cm, 10/31/20 10:11:00 CDT, Height, 60, kg, 10/31/20 10:11:00 CDT, Weight tizanidine 0 No 4 mg = 1 Mem oria 4 MG Oral 8-10 tab, PO, l Tablet 19:54: Q8H, # 90 Keenan n [Zanaflex] 00 tab, 3 Refill(s), Pharmacy: [facility] #[id number], 160.02, cm, 10/31/20 10:11:00 CDT, Height, 60, kg, 10/31/20 10:11:00 CDT, Weight carvedilol Yes TAKE 1 Memor ia 12.5 mg 8-10 TABLET BY l oral tablet 19:49: MOUTH Maribell nn 00 THREE TIMES DAILY apixaban Yes TAKE 1 Memoria 2.5 MG Oral 8-10 TABLET BY l Tablet 19:49: MOUTH Casanova [Eliquis] 00 TWICE DAILY carvedilol Yes TAKE 1 Memor ia 12.5 mg 8-10 TABLET BY l oral tablet 19:49: MOUTH Maribell nn 00 THREE TIMES DAILY apixaban Yes TAKE 1 Memoria 2.5 MG Oral 8-10 TABLET BY l Tablet 19:49: MOUTH [place] [Eliquis] 00 TWICE DAILY carvedilol Yes TAKE [...] 8-10 TABLET BY l Tablet 19:49: MOUTH [place] [Eliquis] 00 TWICE DAILY carvedilol Yes TAKE 1 Memor ia 12.5 mg 8-10 TABLET BY l oral tablet 19:49: MOUTH Maribell nn 00 THREE TIMES DAILY apixaban Yes TAKE 1 Memoria 2.5 MG Oral 8-10 TABLET BY l Tablet 19:49: MOUTH Talon [Eliquis] 00 TWICE DAILY Eliquis 2.5 Yes TAKE 1 Anthony litzy mg oral 8-10 TABLET BY l tablet 19:49: MOUTH [place] 00 TWICE DAILY carvedilol Yes TAKE 1 Memor ia 12.5 mg 8-10 TABLET BY l oral tablet 19:49: MOUTH Maribell nn 00 THREE TIMES DAILY apixaban Yes TAKE 1 Memoria 2.5 MG Oral 8-10 TABLET BY l Tablet 19:49: MOUTH Talon [Eliquis] 00 TWICE DAILY Eliquis 2.5 Yes TAKE 1 Anthony litzy mg oral 8-10 TABLET BY l tablet 19:49: MOUTH [place] 00 TWICE DAILY carvedilol Yes TAKE 1 Memor ia 12.5 mg 8-10 TABLET BY l oral tablet 19:49: MOUTH Maribell nn 00 THREE TIMES DAILY apixaban Yes TAKE 1 Memoria 2.5 MG Oral 8-10 TABLET BY l Tablet 19:49: MOUTH Talon [Eliquis] 00 TWICE DAILY Eliquis 2.5 Yes TAKE 1 Antohny litzy mg oral 8-10 TABLET BY l tablet 19:49: MOUTH [place] 00 TWICE DAILY lisinopril Yes 20 mg = 1 Me moria 20 mg oral 8-10 tab, PO, l tablet 19:21: Daily, # Casanova 00 30 tab, 0 Refill(s) methocarbam No 1,000 mg = Memoria ol 500 mg 8-10 2 tab, PO, l oral tablet 19:21: QID, # 56 H ermann 00 tab, 0 Refill(s) pantoprazol Yes 0 Memori a e 40 mg 8-10 Refill(s) l oral 19:21: [place] enteric 00 coated tablet Acetaminoph 0 Yes 1 tab, PO, Memoria en 325 MG / 8-10 Q4H, PRN l Hydrocodone 19:21: Pain, # 30 [place] Bitartrate 00 tab, 0 10 MG Oral Refill(s) Tablet lisinopril 0 Yes 20 mg = 1 Me moria 20 mg oral 8-10 tab, PO, l tablet 19:21: Daily, # Casanova 00 30 tab, 0 Refill(s) methocarbam 2020-0 No 1,000 mg = Memoria ol 500 mg 8-10 2 tab, PO, l oral tablet 19:21: QID, # 56 H ermann 00 tab, 0 Refill(s) pantoprazol 0 Yes 0 Memori a e 40 mg 8-10 Refill(s) l oral 19:21: Talon enteric 00 coated tablet Acetaminoph 0 Yes 1 tab, PO, Memoria en 325 MG / 8-10 Q4H, PRN l Hydrocodone 19:21: Pain, # 30 [place] Bitartrate 00 tab, 0 10 MG Oral [...] 40 mg 8-10 Refill(s) l oral 19:21: [place] enteric 00 coated tablet Acetaminoph 0 Yes 1 tab, PO, Memoria en 325 MG / 8-10 Q4H, PRN l Hydrocodone 19:21: Pain, # 30 [place] Bitartrate 00 tab, 0 10 MG Oral Refill(s) Tablet lisinopril 2020-0 Yes 20 mg = 1 Me moria 20 mg oral 8-10 tab, PO, l tablet 19:21: Daily, # Talon 00 30 tab, 0 Refill(s) methocarbam 2021-0 No 1,000 mg = Memoria ol 500 mg 8-10 2 tab, PO, l oral tablet 19:21: QID, # 56 H ermann 00 tab, 0 Refill(s) pantoprazol 0 Yes 0 Memori a e 40 mg 8-10 Refill(s) l oral 19:21: Talon enteric 00 coated tablet Acetaminoph 0 Yes 1 tab, PO, Memoria en 325 MG / 8-10 Q4H, PRN l Hydrocodone 19:21: Pain, # 30 Talon Bitartrate 00 tab, 0 10 MG Oral Refill(s) Tablet lisinopril 0 Yes 20 mg = 1 Me moria 20 mg oral 8-10 tab, PO, l tablet 19:21: Daily, # Casanova 00 30 tab, 0 Refill(s) methocarbam 0 No 1,000 mg = Memoria ol 500 mg 8-10 2 tab, PO, l oral tablet 19:21: QID, # 56 H ermann 00 tab, 0 Refill(s) pantoprazol 0 Yes 0 Memori a e 40 mg 8-10 Refill(s) l oral 19:21: Talon enteric 00 coated tablet Acetaminoph 0 Yes [...] tab, PO, l tablet 19:21: Daily, # Casanova 00 30 tab, 0 Refill(s) methocarbam No 1,000 mg = Memoria ol 500 mg 8-10 2 tab, PO, l oral tablet 19:21: QID, # 56 H ermann 00 tab, 0 Refill(s) pantoprazol Yes 0 Memori a e 40 mg 8-10 Refill(s) l oral 19:21: [place] enteric 00 coated tablet Acetaminoph Yes 1 tab, PO, Memoria en 325 MG / 8-10 Q4H, PRN l Hydrocodone 19:21: Pain, # 30 [place] Bitartrate 00 tab, 0 10 MG Oral Refill(s) Tablet apixaban 2020- No 2.5mg Q.5D [facility] 2[facility]5 mg Tab 00:00: 23:59 (2.5 mg Med ical tablet 00 :00 total) by Center mouth 2 (two) times daily for 30 days. cholecalcif 2021- No 2000U QD Take [address] [facility] 2,000 01-04-14 tablet [facility] unit Tab 00:00: 23:59 (2,000 Medica l 00 :00 Units Center total) by mouth daily. pantoprazol 2020- No 40mg QD Take [address] [facility] 01-0413 tablet (40 [facility] (PROTONIX) 00:00: 23:59 mg total) M edical 40 MG 00 :00 by mouth Center tablet daily for 30 days. hydrALAZINE Yes 25mg [id number] Take [address] [facility] (APRESOLINE 01-03 [id number] by mouth 3 [facility] ) 25 MG 18:53: 3D (three) Medical tablet 50 times Center daily. hydrOXYzine Yes 10mg Take [address] [facility] (ATARAX) 10 - by mouth 3 Maria G kes MG tablet 18:53: (three) Medic al 50 times Center daily as needed for Itching. atorvastati Yes 40mg QD Take [address] [facility] (LIPITOR) 7-13 by mouth Luke s 40 MG 18:53: nightly. Medical tablet 50 [place] levothyroxi Yes 50ug Take [address] [facility] ne 7-13 mcg by [facility] (SYNTHROID, 18:53: mouth Medic al LEVOTHROID) 50 Every Center 50 MCG morning on tablet an empty stomach. bumetanide Yes 1mg QD Take [address] [facility] [address] [facility] (BUMEX) 1 7-13 by mouth [facility] MG tablet 18:53: daily. Medica l 50 [place] spironolact Yes 50mg QD Take [address] [facility] one 7-13 by mouth [facility] (ALDACTONE) 18:53: daily. Medi denise 50 MG 50 Center tablet cloNIDine Yes .1mg Take 0.[address] [facility] HCL 7-13 mg by [facility] (CATAPRES) 18:53: mouth Medica l 0.1 MG 50 daily as Center tablet needed. carvediloL Yes 12.5mg [id number] Take 12.[address] [facility] (COREG) 7-13 [id number] mg by [facility] 12.5 MG 18:53: 3D mouth 3 Medical tablet 50 (three) Center times daily . liothyronin Yes 5ug QD Take [address] [facility] (CYTOMEL) 7-13 by mouth Luke s 5 MCG 18:53: daily. Medical tablet 50 [place] allopurinoL Yes 100mg QD Take [address] (ZYLOPRIM) 7-13 mg by [facility] 100 MG 18:53: mouth Medical tablet 50 daily. [place] folic Yes Take by [facility] ac/vit 7-13 mouth. [facility] Bcomp,C/Zn/ 18:53: Medica l vit D3 50 Center (DIALYVITE 800-ULTRA D ORAL) cyanocobala Yes 2500ug QD Take 2,[address] [facility] min 2000 7-13 mcg by [facility] MCG tablet 18:53: mouth Medica l 50 daily. [place] docusate Yes 100mg QD Take [address] [facility] sodium 7-13 mg by [facility] (COLACE) 18:53: mouth Medical 100 MG 50 daily. Center capsule promethazin Yes 5mL Take [address] [facility] e-codeine -13 by mouth [facility] (PHENERGAN 18:53: every 4 [...] Take [address] [facility] (ALTACE) 5 01-03-13 by mouth Luke [facility] MG capsule 14:07: 00:00 nightly. Me dical 08 :00 Center apixaban 2020- No 2.5mg Q.5D Take 2.[address] [facility] (Eliquis) 01-03 07-13 mg by [facility] 2.5 mg Tab [...] No 50mg Take [address] [facility] (APRESOLINE - 08-12 tablet (50 L ukes ) 50 MG 00:00: 23:59 mg total) Medi denise tablet 00 :00 by mouth Center every 8 (eight) hours for 30 days. HYDROcodone 2020- No 2{tbl} Take [address] -acetaminop - 07-23 tablets by L es hen (NORCO 00:00: 23:59 mouth Medic al 10-325) 00 :00 every 4 Center 10-325 mg (four) per tablet hours as needed for up to 10 days. Max Daily Amount: 12 tablets atorvastati 0 No 1mg n 40 mg - tablet 00:00: 00 atorvastati 2020-0 No 1mg n 40 mg 6-07 tablet 00:00: 00 Calcitriol 2020-0 Yes 0.25 Memoria 5-10 microgram, l 21:00: PO, , 0 Refill(s) Calcitriol 2020-0 Yes 0.25 Memoria 5-10 microgram, l 21:00: PO, , 0 Refill(s) Calcitriol 2020-0 Yes 0.25 Memoria 5-10 microgram, l 21:00: PO, 0 Refill(s) Calcitriol 2020-0 Yes 0.25 Memoria 5-10 microgram, l 21:00: PO, , 0 Refill(s) Calcitriol 2020-0 Yes 0.25 Memoria 5-10 microgram, l 21:00: PO, , 0 Refill(s) calcitriol 2020-0 Yes 0.25 Memoria 5-10 microgram, l 21:00: PO, 0 Refill(s) Calcitriol 2020-0 Yes 0.25 Memoria 5-10 microgram, l 21:00: PO, 0 Refill(s) calcitriol 2020-0 Yes 0.25 Memoria 5-10 microgram, l 21:00: PO, 0 Refill(s) Calcitriol 2020-0 Yes 0.25 Memoria 5-10 microgram, l 21:00: PO, 0 Refill(s) calcitriol 2020-0 Yes 0.25 Memoria 5-10 microgram, l 21:00: PO, , 0 Refill(s) Hydralazine 2021-0 Yes TAKE 1 Anthony litzy Hydrochlori 5-10 [...] 50 mcg 3-16 tablet 00:00: 00 liothyronin 0 No 1mcg e 5 mcg 3-16 tablet 00:00: 00 levothyroxi 0 No 1mcg ne 50 mcg 3-16 tablet 00:00: 00 liothyronin 0 No 1mcg e 5 mcg 3-16 tablet 00:00: 00 Ramipril Yes 5 mg, PO, Anthony litzy 1-27 Daily, 0 l 20:07: Refill(s) Spironolact Yes 1 mg, PO, M emoria one - Daily, # l 20:07: 60 tab, 0 Refill(s) Dialyvite Yes 0 Memoria 800 Ultra D 07-20 Refill(s) l 20:07: Hydralazine No 25 mg, PO, Memoria 1-27 Daily, [...] 1-27 Daily, 0 l 20:07: Refill(s) Ramipril Yes [...] 0 Yes 5 mg, PO, Anthony litzy -27 [...] Dialyvite Yes 0 Memoria 800 Ultra D 1-27 Refill(s) l 20:07: Hydralazine No 25 mg, PO, Memoria 1-27 Daily, 0 l 20:07: Refill(s) Hydralazine No 25 mg, PO, Memoria 1-27 Daily, 0 l 20:07: Refill(s) Ramipril Yes 5 mg, PO, Anthony litzy 1-27 Daily, 0 l 20:07: Refill(s) Spironolact 0 Yes 1 mg, PO, M emoria one - Daily, # l 20:07: 60 tab, 0 Refill(s) Dialyvite Yes 0 Memoria 800 Ultra D - Refill(s) l 20:07: glycopyrrol 2019-06 No Route: IV, Memoria ate (ANES) 07-27 Drug form: l 19:23: INJ, ONCE, Stop date: 05/26/20 13:23:00 FORMULA BOTTLER neostigmine 2019-06 No Route: IV, Memoria (ANES) 07-27 Drug form: l 19:23: INJ, ONCE, Stop date: 05/26/20 13:23:00 FORMULA BOTTLER labetalol 2019-06 No Route: IV, Me moria (ANES) 07-27 Drug form: l 19:23: INJ, ONCE, Stop date: 05/26/20 13:23:00 FORMULA BOTTLER glycopyrrol 2019-06 No Route: IV, Memoria ate (ANES) 2- Drug form: l 19:23: INJ, ONCE, Stop date: 05/26/20 13:23:00 FORMULA BOTTLER neostigmine 2019-06 No Route: IV, Memoria (ANES) 2- Drug form: l 19:23: INJ, ONCE, Stop date: 05/26/20 13:23:00 FORMULA BOTTLER labetalol 2019-06 No Route: IV, Me moria (ANES) 2- Drug form: l 19:23: INJ, ONCE, Stop date: 05/26/20 13:23:00 FORMULA BOTTLER glycopyrrol 2019-06 No Route: IV, Memoria ate (ANES) 2- Drug form: l 19:23: INJ, ONCE, Stop date: 05/26/20 13:23:00 FORMULA BOTTLER neostigmine 2019-06 No Route: IV, Memoria (ANES) 2- Drug form: l 19:23: INJ, ONCE, Stop date: 05/26/20 13:23:00 FORMULA BOTTLER labetalol 2019-06 No Route: IV, Me moria (ANES) 2- Drug form: l 19:23: INJ, ONCE, Stop date: 05/26/20 13:23:00 FORMULA BOTTLER glycopyrrol 2019-06 No Route: IV, Memoria ate (ANES) 2- Drug form: l 19:23: INJ, ONCE, Stop date: 05/26/20 13:23:00 FORMULA BOTTLER neostigmine 2019-06 No Route: IV, Memoria (ANES) 2- Drug form: l 19:23: INJ, ONCE, Stop date: 05/26/20 13:23:00 FORMULA BOTTLER labetalol 2019-06 No Route: IV, Me moria (ANES) 2- Drug form: l 19:23: INJ, ONCE, Stop date: 05/26/20 13:23:00 FORMULA BOTTLER glycopyrrol 2019-06 No Route: IV, Memoria ate (ANES) 2- Drug form: l 19:23: INJ, ONCE, Cas[place] 00 Stop date: 05/26/20 13:23:00 FORMULA BOTTLER neostigmine 2019-06 No Route: IV, Memoria (ANES) 07-27 Drug form: l 19:23: INJ, ONCE, Stop date: 05/26/20 13:23:00 FORMULA BOTTLER labetalol 2019-06 No Route: IV, Me moria (ANES) 07-27 Drug form: l 19:23: INJ, ONCE, Stop date: 05/26/20 13:23:00 FORMULA BOTTLER glycopyrrol 2019-06 No Route: IV, Memoria ate (ANES) 07-27 Drug form: l 19:23: INJ, ONCE, Stop date: 05/26/20 13:23:00 FORMULA BOTTLER neostigmine 2019-06 No Route: IV, Memoria (ANES) 07-27 Drug form: l 19:23: INJ, ONCE, Stop date: 05/26/20 13:23:00 FORMULA BOTTLER labetalol 2019-06 No Route: IV, Me moria (ANES) 07-27 Drug form: l 19:23: INJ, ONCE, Stop date: 05/26/20 13:23:00 FORMULA BOTTLER glycopyrrol 2019-06 No Route: IV, Memoria ate (ANES) 07-27 Drug form: l 19:23: INJ, ONCE, Stop date: 05/26/20 13:23:00 FORMULA BOTTLER neostigmine 2019-06 No Route: IV, Memoria (ANES) 07-27 Drug form: l 19:23: INJ, ONCE, Stop date: 05/26/20 13:23:00 FORMULA BOTTLER labetalol 2019-06 No Route: IV, Me moria (ANES) 07-27 Drug form: l 19:23: INJ, ONCE, Stop date: 05/26/20 13:23:00 FORMULA BOTTLER Hydralazine 2019-06 No 10 mg, Anthony litzy 07-27 Route: l 19:11: IVP, Q20Min, Dosing Weight 64.545, kg, PRN Elevated BP, Start date: 05/26/20 13:11:00 FORMULA BOTTLER, Duration: 2 doses or times, Stop date: Limited # of times Labetalol 2019-06 No 10 mg, Memori a 07-27 Route: l 19:11: IVP, Cas[place] 00 Q5Min, Dosing Weight 64.545, kg, PRN Elevated BP, Start date: 05/26/20 13:11:00 FORMULA BOTTLER, Duration: 5 doses or times, Stop date: Limited # of times Acetaminoph 2019-06 No 1,000 mg, M emoria en 07-27 Route: PO, l 19:11: Drug form: Talon 00 TAB, ONCE, Dosing Weight 64.545, kg, PRN Pain Score 1-3, Start date: 05/26/20 13:11:00 FORMULA BOTTLER Fentanyl 2019-06 No 25 Memoria 2-03 microgram, l 19:11: Route: Casanova 00 IVP, Q5Min, Dosing Weight 64.545, kg, PRN Pain Score 4-6, Priority: Routine, Start date: 05/26/20 13:11:00 FORMULA BOTTLER, Duration: 4 doses or times, Stop date: Limited # of times Hydromorpho 2019-06 No 0.5 mg, Mem oria ne 07-27 Route: l 19:11: IVP, Talon 00 Q5Min, Dosing Weight 64.545, kg, PRN Pain Score 7-10, Start date: 05/26/20 13:11:00 FORMULA BOTTLER, Duration: 4 doses or times, Stop date: Limited # of times Flumazenil 2019-06 No 0.2 mg, Anthony litzy 07-27 Route: l 19:11: IVP, PRN, Dosing Weight 64.545, kg, PRN Benzodiaze pine Reversal, Initial dose, Start date: 05/26/20 13:11:00 FORMULA BOTTLER, Duration: 30 day, Stop date: 06/25/20 13:10:00 FORMULA BOTTLER Naloxone 2019-06 No 0.4 mg, Memori a 07-27 Route: l 19:11: IVP, Talon 00 Q2MIN, Dosing Weight 64.545, kg, PRN Narcotic Reversal, Start date: 05/26/20 13:11:00 FORMULA BOTTLER, Duration: 8 doses or times, Stop date: Limited # of times Ondansetron 2019-06 No 4 mg, Memor ia 07-27 Route: l 19:11: IVP, ONCE, [place] 00 Dosing Weight 64.545, kg, PRN Nausea & Vomiting, Start date: 05/26/20 13:11:00 FORMULA BOTTLER Promethazin 2019- No 6.25 mg, Me moria e 2- Route: l 19:11: IVPB, [place] 00 ONCE, Dosing Weight 64.545, kg, PRN Nausea & Vomiting, Start date: 05/26/20 13:11:00 FORMULA BOTTLER Hydralazine 2019-06 No 10 mg, Anthony litzy 2- Route: l 19:11: IVP, Talon 00 Q20Min, Dosing Weight 64.545, kg, PRN Elevated BP, Start date: 05/26/20 13:11:00 FORMULA BOTTLER, Duration: 2 doses or times, Stop date: Limited # of times Labetalol 2019- No 10 mg, Memori a 2- Route: l 19:11: IVP, [place] 00 Q5Min, Dosing Weight 64.545, kg, PRN Elevated BP, Start date: 05/26/20 13:11:00 FORMULA BOTTLER, Duration: 5 doses or times, Stop date: Limited # of times Acetaminoph 2019- No 1,000 mg, M emoria en 2- Route: PO, l 19:11: Drug form: Casanova 00 TAB, ONCE, Dosing Weight 64.545, kg, PRN Pain Score 1-3, Start date: 05/26/20 13:11:00 FORMULA BOTTLER Fentanyl 2019- No 25 Memoria 2-03 microgram, l 19:11: Route: Talon 00 IVP, Q5Min, Dosing Weight 64.545, kg, PRN Pain Score 4-6, Priority: Routine, Start date: 05/26/20 13:11:00 FORMULA BOTTLER, Duration: 4 doses or times, Stop date: Limited # of times Hydromorpho 2019-06 No 0.5 mg, Mem oria ne 2-03 Route: l 19:11: IVP, [place] 00 Q5Min, Dosing Weight 64.545, kg, PRN Pain Score 7-10, Start date: 05/26/20 13:11:00 FORMULA BOTTLER, Duration: 4 doses or times, Stop date: Limited # of times Flumazenil 2019-06 No 0.2 mg, Anthony litzy 2-03 Route: l 19:11: IVP, PRN, [place] 00 Dosing Weight 64.545, kg, PRN Benzodiaze pine Reversal, Initial dose, Start date: 05/26/20 13:11:00 FORMULA BOTTLER, Duration: 30 day, Stop date: 06/25/20 13:10:00 FORMULA BOTTLER Naloxone 2019- No 0.4 mg, Memori a 2- Route: l 19:11: IVP, [place] 00 Q2MIN, Dosing Weight 64.545, kg, PRN Narcotic Reversal, Start date: 05/26/20 13:11:00 FORMULA BOTTLER, Duration: 8 doses or times, Stop date: Limited # of times Ondansetron 2019- No 4 mg, Memor ia 2- Route: l 19:11: IVP, ONCE, [place] 00 Dosing Weight 64.545, kg, PRN Nausea & Vomiting, Start date: 05/26/20 13:11:00 FORMULA BOTTLER Promethazin 2019- No 6.25 mg, Me moria e 2- Route: l 19:11: IVPB, Talon 00 ONCE, Dosing Weight 64.545, kg, PRN Nausea & Vomiting, Start date: 05/26/20 13:11:00 FORMULA BOTTLER Hydralazine 2019- No 10 mg, Anthony litzy 2- Route: l 19:11: IVP, [place] 00 Q20Min, Dosing Weight 64.545, kg, PRN Elevated BP, Start date: 05/26/20 13:11:00 FORMULA BOTTLER, Duration: 2 doses or times, Stop date: Limited # of times Labetalol 2019- No 10 mg, Memori a 2- Route: l 19:11: IVP, [place] 00 Q5Min, Dosing Weight 64.545, kg, PRN Elevated BP, Start date: 05/26/20 13:11:00 FORMULA BOTTLER, Duration: 5 doses or times, Stop date: Limited # of times Acetaminoph 2019- No 1,000 mg, M emoria en 2-03 Route: PO, l 19:11: Drug form: Talon 00 TAB, ONCE, Dosing Weight 64.545, kg, PRN Pain Score 1-3, Start date: 05/26/20 13:11:00 FORMULA BOTTLER Fentanyl 2019- No 25 Memoria 2-03 microgram, l 19:11: Route: [place] 00 IVP, Q5Min, Dosing Weight 64.545, kg, PRN Pain Score 4-6, Priority: Routine, Start date: 05/26/20 13:11:00 FORMULA BOTTLER, Duration: 4 doses or times, Stop date: Limited # of times Hydromorpho 2020-1 No 0.5 mg, Mem oria ne 2-03 Route: l 19:11: IVP, [place] 00 Q5Min, Dosing Weight 64.545, kg, PRN Pain Score 7-10, Start date: 05/26/20 13:11:00 FORMULA BOTTLER, Duration: 4 doses or times, Stop date: Limited # of times Flumazenil 2020-1 No 0.2 mg, Anthony litzy 2-03 Route: l 19:11: IVP, PRN, [place] 00 Dosing Weight 64.545, kg, PRN Benzodiaze pine Reversal, Initial dose, Start date: 05/26/20 13:11:00 FORMULA BOTTLER, Duration: 30 day, Stop date: 06/25/20 13:10:00 FORMULA BOTTLER Naloxone 2020-1 No 0.4 mg, Memori a 2-03 Route: l 19:11: IVP, Talon 00 Q2MIN, Dosing Weight 64.545, kg, PRN Narcotic Reversal, Start date: 05/26/20 13:11:00 FORMULA BOTTLER, Duration: 8 doses or times, Stop date: Limited # of times Ondansetron 2020-1 No 4 mg, Memor ia 2-03 Route: l 19:11: IVP, ONCE, [place] 00 Dosing Weight 64.545, kg, PRN Nausea & Vomiting, Start date: 05/26/20 13:11:00 FORMULA BOTTLER Promethazin 2020-1 No 6.25 mg, Me moria e 2-03 Route: l 19:11: IVPB, [place] 00 ONCE, Dosing Weight 64.545, kg, PRN Nausea & Vomiting, Start date: 05/26/20 13:11:00 FORMULA BOTTLER Hydralazine 2020-1 No 10 mg, Anthony litzy 2-03 Route: l 19:11: IVP, Talon 00 Q20Min, Dosing Weight 64.545, kg, PRN Elevated BP, Start date: 05/26/20 13:11:00 FORMULA BOTTLER, Duration: 2 doses or times, Stop date: Limited # of times Labetalol 2019-06 No 10 mg, Memori a - Route: l 19:11: IVP, [place] 00 Q5Min, Dosing Weight 64.545, kg, PRN Elevated BP, Start date: 05/26/20 13:11:00 FORMULA BOTTLER, Duration: 5 doses or times, Stop date: Limited # of times Acetaminoph 2019-06 No 1,000 mg, M emoria en 07-27 Route: PO, l 19:11: Drug form: Talon 00 TAB, ONCE, Dosing Weight 64.545, kg, PRN Pain Score 1-3, Start date: 05/26/20 13:11:00 FORMULA BOTTLER Fentanyl 2019-06 No 25 Memoria 2-03 microgram, l 19:11: Route: [place] 00 IVP, Q5Min, Dosing Weight 64.545, kg, PRN Pain Score 4-6, Priority: Routine, Start date: 05/26/20 13:11:00 FORMULA BOTTLER, Duration: 4 doses or times, Stop date: Limited # of times Hydromorpho 2019-06 No 0.5 mg, Mem oria ne 07-27 Route: l 19:11: IVP, [place] 00 Q5Min, Dosing Weight 64.545, kg, PRN Pain Score 7-10, Start date: 05/26/20 13:11:00 FORMULA BOTTLER, Duration: 4 doses or times, Stop date: Limited # of times Flumazenil 2019-06 No 0.2 mg, Anthony litzy 07-27 Route: l 19:11: IVP, PRN, [place] Dosing Weight 64.545, kg, PRN Benzodiaze pine Reversal, Initial dose, Start date: 05/26/20 13:11:00 FORMULA BOTTLER, Duration: 30 day, Stop date: 06/25/20 13:10:00 FORMULA BOTTLER Naloxone 2019- No 0.4 mg, Memori a 07-27 Route: l 19:11: IVP, Talon 00 Q2MIN, Dosing Weight 64.545, kg, PRN Narcotic Reversal, Start date: 05/26/20 13:11:00 FORMULA BOTTLER, Duration: 8 doses or times, Stop date: Limited # of times Ondansetron 2019-06 No 4 mg, Memor ia 07-27 Route: l 19:11: IVP, ONCE, [place] 00 Dosing Weight 64.545, kg, PRN Nausea & Vomiting, Start date: 05/26/20 13:11:00 FORMULA BOTTLER Promethazin 2019-06 No 6.25 mg, Me moria e 07-27 Route: l 19:11: IVPB, Talon 00 ONCE, Dosing Weight 64.545, kg, PRN Nausea & Vomiting, Start date: 05/26/20 13:11:00 FORMULA BOTTLER Hydralazine 2019-06 No 10 mg, Anthony litzy 07-27 Route: l 19:11: IVP, Casanova 00 Q20Min, Dosing Weight 64.545, kg, PRN Elevated BP, Start date: 05/26/20 13:11:00 FORMULA BOTTLER, Duration: 2 doses or times, Stop date: Limited # of times Labetalol 2019-06 No 10 mg, Memori a 07-27 Route: l 19:11: IVP, Talon 00 Q5Min, Dosing Weight 64.545, kg, PRN Elevated BP, Start date: 05/26/20 13:11:00 FORMULA BOTTLER, Duration: 5 doses or times, Stop date: Limited # of times Acetaminoph 2019-06 No 1,000 mg, M emoria en 07-27 Route: PO, l 19:11: Drug form: Casanova 00 TAB, ONCE, Dosing Weight 64.545, kg, PRN Pain Score 1-3, Start date: 05/26/20 13:11:00 FORMULA BOTTLER Fentanyl 2019-06 No 25 Memoria 2-03 microgram, l 19:11: Route: Talon 00 IVP, Q5Min, Dosing Weight 64.545, kg, PRN Pain Score 4-6, Priority: Routine, Start date: 05/26/20 13:11:00 FORMULA BOTTLER, Duration: 4 doses or times, Stop date: Limited # of times Hydromorpho 2019-06 No 0.5 mg, Mem oria ne 07-27 Route: l 19:11: IVP, Casanova 00 Q5Min, Dosing Weight 64.545, kg, PRN Pain Score 7-10, Start date: 05/26/20 13:11:00 FORMULA BOTTLER, Duration: 4 doses or times, Stop date: Limited # of times Flumazenil 2019-06 No 0.2 mg, Anthony litzy 2 Route: l 19:11: IVP, PRN, Casanova 00 Dosing Weight 64.545, kg, PRN Benzodiaze pine Reversal, Initial dose, Start date: 05/26/20 13:11:00 FORMULA BOTTLER, Duration: 30 day, Stop date: 06/25/20 13:10:00 FORMULA BOTTLER Naloxone 2019-06 No 0.4 mg, Memori a 07-27 Route: l 19:11: IVP, Talon 00 Q2MIN, Dosing Weight 64.545, kg, PRN Narcotic Reversal, Start date: 05/26/20 13:11:00 FORMULA BOTTLER, Duration: 8 doses or times, Stop date: Limited # of times Ondansetron 2019-06 No 4 mg, Memor ia 07-27 Route: l 19:11: IVP, ONCE, Talon 00 Dosing Weight 64.545, kg, PRN Nausea & Vomiting, Start date: 05/26/20 13:11:00 FORMULA BOTTLER Promethazin 2019-06 No 6.25 mg, Me moria e 2 Route: l 19:11: IVPB, Casanova 00 ONCE, Dosing Weight 64.545, kg, PRN Nausea & Vomiting, Start date: 05/26/20 13:11:00 FORMULA BOTTLER Hydralazine 2019-06 No 10 mg, Anthony litzy 07-27 Route: l 19:11: IVP, Casanova 00 Q20Min, Dosing Weight 64.545, kg, PRN Elevated BP, Start date: 05/26/20 13:11:00 FORMULA BOTTLER, Duration: 2 doses or times, Stop date: Limited # of times Labetalol 2019-06 No 10 mg, Memori a 2 Route: l 19:11: IVP, Talon 00 Q5Min, Dosing Weight 64.545, kg, PRN Elevated BP, Start date: 05/26/20 13:11:00 FORMULA BOTTLER, Duration: 5 doses or times, Stop date: Limited # of times Acetaminoph 2019-06 No 1,000 mg, M emoria en 2- Route: PO, l 19:11: Drug form: Casanova 00 TAB, ONCE, Dosing Weight 64.545, kg, PRN Pain Score 1-3, Start date: 05/26/20 13:11:00 FORMULA BOTTLER Fentanyl 2019- No 25 Memoria 2-03 microgram, l 19:11: Route: Casanova 00 IVP, Q5Min, Dosing Weight 64.545, kg, PRN Pain Score 4-6, Priority: Routine, Start date: 05/26/20 13:11:00 FORMULA BOTTLER, Duration: 4 doses or times, Stop date: Limited # of times Hydromorpho 2019- No 0.5 mg, Mem oria ne 2-03 Route: l 19:11: IVP, Casanova 00 Q5Min, Dosing Weight 64.545, kg, PRN Pain Score 7-10, Start date: 05/26/20 13:11:00 FORMULA BOTTLER, Duration: 4 doses or times, Stop date: Limited # of times Flumazenil 2019-06 No 0.2 mg, Anthony litzy 2- Route: l 19:11: IVP, PRN, Casanova 00 Dosing Weight 64.545, kg, PRN Benzodiaze pine Reversal, Initial dose, Start date: 05/26/20 13:11:00 FORMULA BOTTLER, Duration: 30 day, Stop date: 06/25/20 13:10:00 FORMULA BOTTLER Naloxone 2019- No 0.4 mg, Memori a 2- Route: l 19:11: IVP, Casanova 00 Q2MIN, Dosing Weight 64.545, kg, PRN Narcotic Reversal, Start date: 05/26/20 13:11:00 FORMULA BOTTLER, Duration: 8 doses or times, Stop date: Limited # of times Ondansetron 2019-06 No 4 mg, Memor ia 2- Route: l 19:11: IVP, ONCE, Talon 00 Dosing Weight 64.545, kg, PRN Nausea & Vomiting, Start date: 05/26/20 13:11:00 FORMULA BOTTLER Promethazin 2019- No 6.25 mg, Me moria e 2-03 Route: l 19:11: IVPB, Talon 00 ONCE, Dosing Weight 64.545, kg, PRN Nausea & Vomiting, Start date: 05/26/20 13:11:00 FORMULA BOTTLER Hydralazine 2019- No 10 mg, Anthony litzy 2-03 Route: l 19:11: IVP, Talon 00 Q20Min, Dosing Weight 64.545, kg, PRN Elevated BP, Start date: 05/26/20 13:11:00 FORMULA BOTTLER, Duration: 2 doses or times, Stop date: Limited # of times Labetalol 2019- No 10 mg, Memori a 2- Route: l 19:11: IVP, Talon 00 Q5Min, Dosing Weight 64.545, kg, PRN Elevated BP, Start date: 05/26/20 13:11:00 FORMULA BOTTLER, Duration: 5 doses or times, Stop date: Limited # of times Acetaminoph 2019- No 1,000 mg, M emoria en - Route: PO, l 19:11: Drug form: Casanova 00 TAB, ONCE, Dosing Weight 64.545, kg, PRN Pain Score 1-3, Start date: 05/26/20 13:11:00 FORMULA BOTTLER Fentanyl 2019-06 No 25 Memoria 2-03 microgram, l 19:11: Route: Casanova 00 IVP, Q5Min, Dosing Weight 64.545, kg, PRN Pain Score 4-6, Priority: Routine, Start date: 05/26/20 13:11:00 FORMULA BOTTLER, Duration: 4 doses or times, Stop date: Limited # of times Hydromorpho 2019- No 0.5 mg, Mem oria ne 07-27 Route: l 19:11: IVP, Casanova 00 Q5Min, Dosing Weight 64.545, kg, PRN Pain Score 7-10, Start date: 05/26/20 13:11:00 FORMULA BOTTLER, Duration: 4 doses or times, Stop date: Limited # of times Flumazenil 2019-06 No 0.2 mg, Anthony litzy 2-03 Route: l 19:11: IVP, PRN, Casanova 00 Dosing Weight 64.545, kg, PRN Benzodiaze pine Reversal, Initial dose, Start date: 05/26/20 13:11:00 FORMULA BOTTLER, Duration: 30 day, Stop date: 06/25/20 13:10:00 FORMULA BOTTLER Naloxone 2019- No 0.4 mg, Memori a - Route: l 19:11: IVP, Talon 00 Q2MIN, Dosing Weight 64.545, kg, PRN Narcotic Reversal, Start date: 05/26/20 13:11:00 FORMULA BOTTLER, Duration: 8 doses or times, Stop date: Limited # of times Ondansetron 2019-06 No 4 mg, Memor ia 07-27 Route: l 19:11: IVP, ONCE, Dosing Weight 64.545, kg, PRN Nausea & Vomiting, Start date: 05/26/20 13:11:00 FORMULA BOTTLER Promethazin 2019-06 No 6.25 mg, Me moria e 07-27 Route: l 19:11: IVPB, ONCE, Dosing Weight 64.545, kg, PRN Nausea & Vomiting, Start date: 05/26/20 13:11:00 FORMULA BOTTLER ePHEDrine 2019-06 No Route: IV, Me moria (ANES) 07-27 Drug form: l 18:27: INJ, ONCE, Stop date: 05/26/20 12:27:00 FORMULA BOTTLER ePHEDrine 2019-06 No Route: IV, Me moria (ANES) 07-27 Drug form: l 18:27: INJ, ONCE, Stop date: 05/26/20 12:27:00 FORMULA BOTTLER ePHEDrine 2019-06 No Route: IV, Me moria (ANES) 07-27 Drug form: l 18:27: INJ, ONCE, Stop date: 05/26/20 12:27:00 FORMULA BOTTLER ePHEDrine 2019-06 No Route: IV, Me moria (ANES) 07-27 Drug form: l 18:27: INJ, ONCE, Stop date: 05/26/20 12:27:00 FORMULA BOTTLER ePHEDrine 2019-06 No Route: IV, Me moria (ANES) 2- Drug form: l 18:27: INJ, ONCE, Stop date: 05/26/20 12:27:00 FORMULA BOTTLER ePHEDrine 2019-06 No Route: IV, Me moria (ANES) 2- Drug form: l 18:27: INJ, ONCE, Stop date: 05/26/20 12:27:00 FORMULA BOTTLER ePHEDrine 2019-06 No Route: IV, Me moria (ANES) 2 Drug form: l 18:27: INJ, ONCE, Stop date: 05/26/20 12:27:00 FORMULA BOTTLER dexamethaso 2019-06 No Route: IV, Memoria ne (ANES) 2- Drug form: l 17:57: INJ, ONCE, Stop date: 05/26/20 11:57:00 FORMULA BOTTLER ondansetron 2020- No Route: IV, Memoria (ANES) 2- Drug form: l 17:57: INJ, ONCE, Stop date: 05/26/20 11:57:00 FORMULA BOTTLER dexamethaso 2020- No Route: IV, Memoria ne (ANES) 2- Drug form: l 17:57: INJ, ONCE, Stop date: 05/26/20 11:57:00 FORMULA BOTTLER ondansetron 2020- No Route: IV, Memoria (ANES) 2- Drug form: l 17:57: INJ, ONCE, Stop date: 05/26/20 11:57:00 FORMULA BOTTLER dexamethaso 2020 No Route: IV, Memoria ne (ANES) 2- Drug form: l 17:57: INJ, ONCE, Stop date: 05/26/20 11:57:00 FORMULA BOTTLER ondansetron 2020 No Route: IV, Memoria (ANES) 2- Drug form: l 17:57: INJ, ONCE, Stop date: 05/26/20 11:57:00 FORMULA BOTTLER dexamethaso 2019-06 No Route: IV, Memoria ne (ANES) 2- Drug form: l 17:57: INJ, ONCE, Stop date: 05/26/20 11:57:00 FORMULA BOTTLER ondansetron 2020- No Route: IV, Memoria (ANES) 2- Drug form: l 17:57: INJ, ONCE, Stop date: 05/26/20 11:57:00 FORMULA BOTTLER dexamethaso 2019- No Route: IV, Memoria ne (ANES) 2- Drug form: l 17:57: INJ, ONCE, Stop date: 05/26/20 11:57:00 FORMULA BOTTLER ondansetron 2020 No Route: IV, Memoria (ANES) 2- Drug form: l 17:57: INJ, ONCE, Stop date: 05/26/20 11:57:00 FORMULA BOTTLER dexamethaso 2020-1 No Route: IV, Memoria ne (ANES) 2- Drug form: l 17:57: INJ, ONCE, Stop date: 05/26/20 11:57:00 FORMULA BOTTLER ondansetron 2019-06 No Route: IV, Memoria (ANES) 2 Drug form: l 17:57: INJ, ONCE, Stop date: 05/26/20 11:57:00 FORMULA BOTTLER dexamethaso 2019-06 No Route: IV, Memoria ne (ANES) 2 Drug form: l 17:57: INJ, ONCE, Stop date: 05/26/20 11:57:00 FORMULA BOTTLER ondansetron 2019-06 No Route: IV, Memoria (ANES) 2 Drug form: l 17:57: INJ, ONCE, Stop date: 05/26/20 11:57:00 FORMULA BOTTLER fentaNYL 2019-06 No Route: IV, Mem oria (ANES) 07-27 Drug form: l 17:52: INJ, ONCE, Stop date: 05/26/20 11:52:00 FORMULA BOTTLER lidocaine 2019-06 No Route: IV, Me moria (ANES) 07-27 Drug form: l 17:52: INJ, ONCE, Stop date: 05/26/20 11:52:00 FORMULA BOTTLER propofol 2019-06 No Route: IV, Mem oria (ANES) 07-27 Drug form: l 17:52: INJ, ONCE, Stop date: 05/26/20 11:52:00 FORMULA BOTTLER rocuronium 2019-06 No Route: IV, M emoria (ANES) 2 Drug form: l 17:52: INJ, ONCE, Stop date: 05/26/20 11:52:00 FORMULA BOTTLER ceFAZolin 2019-06 No Route: IV, Me moria (ANES) 2- Drug form: l 17:52: INJ, ONCE, Stop date: 05/26/20 11:52:00 FORMULA BOTTLER norepinephr 2019-06 No Route: IV, Memoria ine (ANES) 07-27 Drug form: l 17:52: INJ, ONCE, Stop date: 05/26/20 11:52:00 FORMULA BOTTLER fentaNYL 2019-06 No Route: IV, Mem oria (ANES) 2- Drug form: l 17:52: INJ, ONCE, Stop date: 05/26/20 11:52:00 FORMULA BOTTLER lidocaine 2019-06 No Route: IV, Me moria (ANES) 2- Drug form: l 17:52: INJ, ONCE, Stop date: 05/26/20 11:52:00 FORMULA BOTTLER propofol 2019-06 No Route: IV, Mem oria (ANES) 2- Drug form: l 17:52: INJ, ONCE, Stop date: 05/26/20 11:52:00 FORMULA BOTTLER rocuronium 2019-06 No Route: IV, M emoria (ANES) 2- Drug form: l 17:52: INJ, ONCE, Stop date: 05/26/20 11:52:00 FORMULA BOTTLER ceFAZolin 2019-06 No Route: IV, Me moria (ANES) 2- Drug form: l 17:52: INJ, ONCE, Stop date: 05/26/20 11:52:00 FORMULA BOTTLER norepinephr 2019-06 No Route: IV, Memoria ine (ANES) 2- Drug form: l 17:52: INJ, ONCE, Stop date: 05/26/20 11:52:00 FORMULA BOTTLER fentaNYL 2019-06 No Route: IV, Mem oria (ANES) 2- Drug form: l 17:52: INJ, ONCE, Stop date: 05/26/20 11:52:00 FORMULA BOTTLER lidocaine 2019-06 No Route: IV, Me moria (ANES) 2- Drug form: l 17:52: INJ, ONCE, Stop date: 05/26/20 11:52:00 FORMULA BOTTLER propofol 2019-06 No Route: IV, Mem oria (ANES) 2- Drug form: l 17:52: INJ, ONCE, Stop date: 05/26/20 11:52:00 FORMULA BOTTLER rocuronium 2019-06 No Route: IV, M emoria (ANES) 2-03 Drug form: l 17:52: INJ, ONCE, Stop date: 05/26/20 11:52:00 FORMULA BOTTLER ceFAZolin 2019-06 No Route: IV, Me moria (ANES) 2- Drug form: l 17:52: INJ, ONCE, Stop date: 05/26/20 11:52:00 FORMULA BOTTLER norepinephr 2019-06 No Route: IV, Memoria ine (ANES) 2- Drug form: l 17:52: INJ, ONCE, Stop date: 05/26/20 11:52:00 FORMULA BOTTLER fentaNYL 2019-06 No Route: IV, Mem oria (ANES) 2- Drug form: l 17:52: INJ, ONCE, Stop date: 05/26/20 11:52:00 FORMULA BOTTLER lidocaine 2019-06 No Route: IV, Me moria (ANES) 2- Drug form: l 17:52: INJ, ONCE, Stop date: 05/26/20 11:52:00 FORMULA BOTTLER propofol 2019-06 No Route: IV, Mem oria (ANES) 2- Drug form: l 17:52: INJ, ONCE, Stop date: 05/26/20 11:52:00 FORMULA BOTTLER rocuronium 2019-06 No Route: IV, Keerthi perezria (ANES) 2- Drug form: l 17:52: INJ, ONCE, Stop date: 05/26/20 11:52:00 FORMULA BOTTLER ceFAZolin 2019-06 No Route: IV, Me moria (ANES) 2- Drug form: l 17:52: INJ, ONCE, Stop date: 05/26/20 11:52:00 FORMULA BOTTLER norepinephr 2019-06 No Route: IV, Memoria ine (ANES) 2- Drug form: l 17:52: INJ, ONCE, Stop date: 05/26/20 11:52:00 FORMULA BOTTLER fentaNYL 2019-06 No Route: IV, Mem oria (ANES) 2- Drug form: l 17:52: INJ, ONCE, Stop date: 05/26/20 11:52:00 FORMULA BOTTLER lidocaine 2019-06 No Route: IV, Me moria (ANES) 2- Drug form: l 17:52: INJ, ONCE, Stop date: 05/26/20 11:52:00 FORMULA BOTTLER propofol 2019-06 No Route: IV, Mem oria (ANES) 2- Drug form: l 17:52: INJ, ONCE, Stop date: 05/26/20 11:52:00 FORMULA BOTTLER rocuronium 2019-06 No Route: IV, Keerthi emoria (ANES) 2- Drug form: l 17:52: INJ, ONCE, Stop date: 05/26/20 11:52:00 FORMULA BOTTLER ceFAZolin 2019-06 No Route: IV, Me moria (ANES) 2- Drug form: l 17:52: INJ, ONCE, Stop date: 05/26/20 11:52:00 FORMULA BOTTLER norepinephr 2019-06 No Route: IV, Memoria ine (ANES) 2 Drug form: l 17:52: INJ, ONCE, Stop date: 05/26/20 11:52:00 FORMULA BOTTLER fentaNYL 2019-06 No Route: IV, Mem oria (ANES) 2 Drug form: l 17:52: INJ, ONCE, Stop date: 05/26/20 11:52:00 FORMULA BOTTLER lidocaine 2019-06 No Route: IV, Me moria (ANES) 2- Drug form: l 17:52: INJ, ONCE, Stop date: 05/26/20 11:52:00 FORMULA BOTTLER propofol 2019-06 No Route: IV, Mem oria (ANES) 2- Drug form: l 17:52: INJ, ONCE, Stop date: 05/26/20 11:52:00 FORMULA BOTTLER rocuronium 2019-06 No Route: IV, M emoria (ANES) 2- Drug form: l 17:52: INJ, ONCE, Stop date: 05/26/20 11:52:00 FORMULA BOTTLER ceFAZolin 2019-06 No Route: IV, Me moria (ANES) 2- Drug form: l 17:52: INJ, ONCE, Stop date: 05/26/20 11:52:00 FORMULA BOTTLER norepinephr 2019-06 No Route: IV, Memoria ine (ANES) 2- Drug form: l 17:52: INJ, ONCE, Stop date: 05/26/20 11:52:00 FORMULA BOTTLER fentaNYL 2019-06 No Route: IV, Mem oria (ANES) 2- Drug form: l 17:52: INJ, ONCE, Stop date: 05/26/20 11:52:00 FORMULA BOTTLER lidocaine 2019-06 No Route: IV, Me moria (ANES) 2 Drug form: l 17:52: INJ, ONCE, Stop date: 05/26/20 11:52:00 FORMULA BOTTLER propofol 2019-06 No Route: IV, Mem oria (ANES) 07-27 Drug form: l 17:52: INJ, ONCE, Stop date: 05/26/20 11:52:00 FORMULA BOTTLER rocuronium 2019-06 No Route: IV, M emoria (ANES) 07-27 Drug form: l 17:52: INJ, ONCE, Stop date: 05/26/20 11:52:00 FORMULA BOTTLER ceFAZolin 2019-06 No Route: IV, Me moria (ANES) 07-27 Drug form: l 17:52: INJ, ONCE, Stop date: 05/26/20 11:52:00 FORMULA BOTTLER norepinephr 2019-06 No Route: IV, Memoria ine (ANES) 07-27 Drug form: l 17:52: INJ, ONCE, Stop date: 05/26/20 11:52:00 FORMULA BOTTLER vancomycin 2019-06 No Route: IV, M emoria (ANES) 1000 07-27 Drug form: l mg 16:50: INJ, Start date: 05/26/20 10:50:00 FORMULA BOTTLER, Stop date: 05/26/20 11:50:00 FORMULA BOTTLER Sodium 2019-06 No Route: IV, Memor ia Chloride 2- Total l 0.9% IV 16:50: Volume: Talon (ANES) 500 00 500, Start mL date: 05/26/20 10:50:00 FORMULA BOTTLER, Stop date: 05/26/20 11:50:00 FORMULA BOTTLER vancomycin 2019-06 No Route: IV, M emoria (ANES) 1000 07-27 Drug form: l mg 16:50: INJ, Start date: 05/26/20 10:50:00 FORMULA BOTTLER, Stop date: 05/26/20 11:50:00 FORMULA BOTTLER Sodium 2019-06 No Route: IV, Memor ia Chloride 2- Total l 0.9% IV 16:50: Volume: Talon (ANES) 500 00 500, Start mL date: 05/26/20 10:50:00 FORMULA BOTTLER, Stop date: 05/26/20 11:50:00 FORMULA BOTTLER vancomycin 2019-06 No Route: IV, Keerthi eprezria (ANES) 1000 07-27 Drug form: l mg 16:50: INJ, Start Talon 00 date: 05/26/20 10:50:00 FORMULA BOTTLER, Stop date: 05/26/20 11:50:00 FORMULA BOTTLER Sodium 2019-06 No Route: IV, Memor ia Chloride 2-03 Total l 0.9% IV 16:50: Volume: Casanova (ANES) 500 500, Start mL date: 05/26/20 10:50:00 FORMULA BOTTLER, Stop date: 05/26/20 11:50:00 FORMULA BOTTLER vancomycin 2019-06 No Route: IV, Keerthi emoria (ANES) 1000 07-27 Drug form: l mg 16:50: INJ, Start date: 05/26/20 10:50:00 FORMULA BOTTLER, Stop date: 05/26/20 11:50:00 FORMULA BOTTLER Sodium 2019-06 No Route: IV, Memor ia Chloride 2-03 Total l 0.9% IV 16:50: Volume: Casanova (ANES) 500 00 500, Start mL date: 05/26/20 10:50:00 FORMULA BOTTLER, Stop date: 05/26/20 11:50:00 FORMULA BOTTLER vancomycin 2019-06 No Route: IV, Keerthi perezria (ANES) 1000 07-27 Drug form: l mg 16:50: INJ, Start date: 05/26/20 10:50:00 FORMULA BOTTLER, Stop date: 05/26/20 11:50:00 FORMULA BOTTLER Sodium 2019-06 No Route: IV, Memor ia Chloride 2-03 Total l 0.9% IV 16:50: Volume: Talon (ANES) 500 500, Start mL date: 05/26/20 10:50:00 FORMULA BOTTLER, Stop date: 05/26/20 11:50:00 FORMULA BOTTLER vancomycin 2019-06 No Route: IV, Keerthi emoria (ANES) 1000 07-27 Drug form: l mg 16:50: INJ, Start Casanova 00 date: 05/26/20 10:50:00 FORMULA BOTTLER, Stop date: 05/26/20 11:50:00 FORMULA BOTTLER Sodium 2019-06 No Route: IV, Memor ia Chloride 2-03 Total l 0.9% IV 16:50: Volume: Talon (ANES) 500 00 500, Start mL date: 05/26/20 10:50:00 FORMULA BOTTLER, Stop date: 05/26/20 11:50:00 FORMULA BOTTLER vancomycin 2019-06 No Route: IV, M nubiaa (ANES) 1000 2-03 Drug form: l mg 16:50: INJ, Start Casanova 00 date: 05/26/20 10:50:00 FORMULA BOTTLER, Stop date: 05/26/20 11:50:00 FORMULA BOTTLER Sodium 2019-06 No Route: IV, Memor ia Chloride 2-03 Total l 0.9% IV 16:50: Volume: Talon (ANES) 500 00 500, Start mL date: 05/26/20 10:50:00 FORMULA BOTTLER, Stop date: 05/26/20 11:50:00 FORMULA BOTTLER Calcium 2019-06 No 1,000 mL, Memor ia Chloride 2-03 Rate: 75 l 0.0014 15:44: ml/hr, Talon MEQ/ML / 00 Infuse Potassium over: 13.3 Chloride hr, Route: 0.004 IV, Dosing MEQ/ML / Weight Sodium 66.818 kg, Chloride Total 0.103 Volume: MEQ/ML / 1,000, Sodium Start Lactate date: 0.028 05/26/20 MEQ/ML 9:44:00 Injectable FORMULA BOTTLER, Solution Duration: 30 day, Stop date: 06/25/20 9:43:00 FORMULA BOTTLER, 1.74, m2 Sodium 2019-06 No 500 mL, Memoria Chloride 2-03 Rate: 75 l 0.9% IV 500 15:44: ml/hr, Herm vin mL 00 Infuse over: 6.7 hr, Route: IV, Dosing Weight 66.818 kg, Total Volume: 500, Start date: 05/26/20 9:44:00 FORMULA BOTTLER, Duration: 30 day, Stop date: 06/25/20 9:43:00 FORMULA BOTTLER, 1.74, m2 Calcium 2019-06 No 1,000 mL, Memor ia Chloride 2-03 Rate: 75 l 0.0014 15:44: ml/hr, Talon MEQ/ML / 00 Infuse Potassium over: 13.3 Chloride hr, Route: 0.004 IV, Dosing MEQ/ML / Weight Sodium 66.818 kg, Chloride Total 0.103 Volume: MEQ/ML / 1,000, Sodium Start Lactate date: 0.028 20 MEQ/ML 9:44:00 Injectable FORMULA BOTTLER, Solution Duration: 30 day, Stop date: 06/25/20 9:43:00 FORMULA BOTTLER, 1.74, m2 Sodium 2019- No 500 mL, Memoria Chloride 2-03 Rate: 75 l 0.9% IV 500 15:44: ml/hr, Herm vin mL 00 Infuse over: 6.7 hr, Route: IV, Dosing Weight 66.818 kg, Total Volume: 500, Start date: 05/26/20 9:44:00 FORMULA BOTTLER, Duration: 30 day, Stop date: 06/25/20 9:43:00 FORMULA BOTTLER, 1.74, m2 Calcium 2019-06 No 1,000 mL, Memor ia Chloride 2-03 Rate: 75 l 0.0014 15:44: ml/hr, Talon MEQ/ML / 00 Infuse Potassium over: 13.3 Chloride hr, Route: 0.004 IV, Dosing MEQ/ML / Weight Sodium 66.818 kg, Chloride Total 0.103 Volume: MEQ/ML / 1,000, Sodium Start Lactate date: 0.028 20 MEQ/ML 9:44:00 Injectable FORMULA BOTTLER, Solution Duration: 30 day, Stop date: 06/25/20 9:43:00 FORMULA BOTTLER, 1.74, m2 Sodium 2019-06 No 500 mL, Memoria Chloride 2-03 Rate: 75 l 0.9% IV 500 15:44: ml/hr, Herm vin mL 00 Infuse over: 6.7 hr, Route: IV, Dosing Weight 66.818 kg, Total Volume: 500, Start date: 05/26/20 9:44:00 FORMULA BOTTLER, Duration: 30 day, Stop date: 06/25/20 9:43:00 FORMULA BOTTLER, 1.74, m2 Calcium 2019-06 No 1,000 mL, Memor ia Chloride 2-03 Rate: 75 l 0.0014 15:44: ml/hr, Casanova MEQ/ML / 00 Infuse Potassium over: 13.3 Chloride hr, Route: 0.004 IV, Dosing MEQ/ML / Weight Sodium 66.818 kg, Chloride Total 0.103 Volume: MEQ/ML / 1,000, Sodium Start Lactate date: 0.028 05/26/20 MEQ/ML 9:44:00 Injectable FORMULA BOTTLER, Solution Duration: 30 day, Stop date: 06/25/20 9:43:00 FORMULA BOTTLER, 1.74, m2 Sodium 2020-1 No 500 mL, Memoria Chloride 2-03 Rate: 75 l 0.9% IV 500 15:44: ml/hr, Herm vin mL 00 Infuse over: 6.7 hr, Route: IV, Dosing Weight 66.818 kg, Total Volume: 500, Start date: 05/26/20 9:44:00 FORMULA BOTTLER, Duration: 30 day, Stop date: 06/25/20 9:43:00 FORMULA BOTTLER, 1.74, m2 Calcium 2019- No 1,000 mL, Memor ia Chloride 2-03 Rate: 75 l 0.0014 15:44: ml/hr, [place] MEQ/ML / 00 Infuse Potassium over: 13.3 Chloride hr, Route: 0.004 IV, Dosing MEQ/ML / Weight Sodium 66.818 kg, Chloride Total 0.103 Volume: MEQ/ML / 1,000, Sodium Start Lactate date: 0.028 05/26/20 MEQ/ML 9:44:00 Injectable FORMULA BOTTLER, Solution Duration: 30 day, Stop date: 06/25/20 9:43:00 FORMULA BOTTLER, 1.74, m2 Sodium 2019-06 No 500 mL, Memoria Chloride 2-03 Rate: 75 l 0.9% IV 500 15:44: ml/hr, Herm vin mL 00 Infuse over: 6.7 hr, Route: IV, Dosing Weight 66.818 kg, Total Volume: 500, Start date: 05/26/20 9:44:00 FORMULA BOTTLER, Duration: 30 day, Stop date: 06/25/20 9:43:00 FORMULA BOTTLER, 1.74, m2 Calcium 2019- No 1,000 mL, Memor ia Chloride 2-03 Rate: 75 l 0.0014 15:44: ml/hr, [place] MEQ/ML / 00 Infuse Potassium over: 13.3 Chloride hr, Route: 0.004 IV, Dosing MEQ/ML / Weight Sodium 66.818 kg, Chloride Total 0.103 Volume: MEQ/ML / 1,000, Sodium Start Lactate date: 0.028 05/26/20 MEQ/ML 9:44:00 Injectable FORMULA BOTTLER, Solution Duration: 30 day, Stop date: 06/25/20 9:43:00 FORMULA BOTTLER, 1.74, m2 Sodium 2020- No 500 mL, Memoria Chloride 2-03 Rate: 75 l 0.9% IV 500 15:44: ml/hr, Herm vin mL 00 Infuse over: 6.7 hr, Route: IV, Dosing Weight 66.818 kg, Total Volume: 500, Start date: 05/26/20 9:44:00 FORMULA BOTTLER, Duration: 30 day, Stop date: 06/25/20 9:43:00 FORMULA BOTTLER, 1.74, m2 Calcium 2019-06 No 1,000 mL, Memor ia Chloride 2-03 Rate: 75 l 0.0014 15:44: ml/hr, [place] MEQ/ML / 00 Infuse Potassium over: 13.3 Chloride hr, Route: 0.004 IV, Dosing MEQ/ML / Weight Sodium 66.818 kg, Chloride Total 0.103 Volume: MEQ/ML / 1,000, Sodium Start Lactate date: 0.028 05/26/20 MEQ/ML 9:44:00 Injectable FORMULA BOTTLER, Solution Duration: 30 day, Stop date: 06/25/20 9:43:00 FORMULA BOTTLER, 1.74, m2 Sodium 2019-06 No 500 mL, Memoria Chloride 2-03 Rate: 75 l 0.9% IV 500 15:44: ml/hr, Herm vin mL 00 Infuse over: 6.7 hr, Route: IV, Dosing Weight 66.818 kg, Total Volume: 500, Start date: 05/26/20 9:44:00 FORMULA BOTTLER, Duration: 30 day, Stop date: 06/25/20 9:43:00 FORMULA BOTTLER, 1.74, m2 Vancomycin 2019-06 No 2000 mg: Me moria 2-02 infuse l 21:00: over 2.5 [place] 00 hours For adult patients only: Round [...] moria 2-02 infuse l 21:00: over 2.5 [place] 00 hours For adult patients only: Round to nearest 250 mg per Medical Staff approval MEDICATION WASTE Product Size: 1000 mg Product Wasted: ___ mg Ancef + 2020- No Notes: Memoria sterile 07-26 (Same As: l water 20 mL 21:00: Ancef, Herm vin 00 Kefzol) MEDICATION WASTE Product Size: 1000 mg Product Wasted: ___ mg Vancomycin 2020- No 2000 mg: Me moria 2 infuse l 21:00: over 2.5 [place] 00 hours For adult patients only: Round to nearest 250 mg per Medical Staff approval MEDICATION WASTE Product Size: 1000 mg Product Wasted: ___ mg Ancef + 2019-06 No Notes: Memoria sterile 07-26 (Same As: l water 20 mL 21:00: Ancef, Herm vin 00 Kefzol) MEDICATION WASTE Product Size: 1000 mg Product Wasted: ___ mg Vancomycin 2020- No 2000 mg: Me moria 07-26 infuse l 21:00: over 2.5 [place] 00 hours For adult patients only: Round to nearest 250 mg per Medical Staff approval MEDICATION WASTE Product Size: 1000 mg Product Wasted: ___ mg Ancef + 2019-06 No Notes: Memoria sterile 07-26 (Same As: l water 20 mL 21:00: Ancef, Herm vin 00 Kefzol) MEDICATION WASTE Product Size: 1000 mg Product Wasted: ___ mg Vancomycin 2020- No 2000 mg: Me moria 2 infuse l 21:00: over 2.5 [place] 00 hours For adult patients only: Round to nearest 250 mg per Medical Staff approval MEDICATION WASTE Product Size: 1000 mg Product Wasted: ___ mg Ancef + 2020- No Notes: Memoria sterile 07-26 (Same As: l water 20 mL 21:00: Ancef, Herm vin 00 Kefzol) MEDICATION WASTE Product Size: 1000 mg Product Wasted: ___ mg Vancomycin 2020- No 2000 mg: Me moria 2- infuse l 21:00: over 2.5 [place] 00 hours For adult patients only: Round to nearest 250 mg per Medical Staff approval MEDICATION WASTE Product Size: 1000 mg Product Wasted: ___ mg Ancef + 2019-06 No Notes: Memoria sterile 07-26 (Same As: l water 20 mL 21:00: Ancef, Herm vin 00 Kefzol) MEDICATION WASTE Product Size: 1000 mg Product Wasted: ___ mg Vancomycin 2019-06 No 2001 mg: Me moria 07-26 infuse l 21:00: over 2.5 [place] 00 hours For adult patients only: Round to nearest 250 mg per Medical Staff approval MEDICATION WASTE Product Size: 1000 mg Product Wasted: ___ mg Ancef + 2019-06 No Notes: Memoria sterile 07-26 (Same As: l water 20 mL 21:00: Ancef, Herm vni 00 Kefzol) MEDICATION WASTE Product Size: 1000 mg Product Wasted: ___ mg Sodium 2019-06 Yes 500 mL, Memoria Chloride 07-17 Infuse l 0.9% 21:27: Over: 20 Casanova (Bolus) IV 00 minutes, Route: IV, ONCE, Dosing Weight 66.818 kg, Start date: 05/17/20 15:27:00 FORMULA BOTTLER, Stop date: 05/17/20 15:27:00 FORMULA BOTTLER Hydralazine 2019-06 No 10 mg, Anthony litzy 07-17 Route: l 21:27: IVP, Talon 00 Q20Min, Dosing Weight 66.818, kg, PRN Elevated BP, Start date: 05/17/20 15:27:00 FORMULA BOTTLER, Duration: 2 doses or times, Stop date: Limited # of times Acetaminoph 2019-06 No 1,000 mg, M emoria en 07-17 Route: PO, l 21:27: Drug form: Talon 00 TAB, ONCE, Dosing Weight 66.818, kg, PRN Pain Score 1-3, Start date: 05/17/20 15:27:00 FORMULA BOTTLER Oxycodone 2019-06 No 5 mg, Memoria Hydrochlori 24 Route: PO, l de 5 MG 21:27: Drug form: Herm vin Oral Tablet 00 TAB, Q4H, Dosing Weight 66.818, kg, PRN Pain Score 4-6, Start date: 05/17/20 15:27:00 FORMULA BOTTLER, Duration: 30 day, Stop date: 06/16/20 15:26:00 FORMULA BOTTLER Morphine 2020-1 No 2 mg, Memoria 1-24 Route: l 21:27: IVP, Casanova 00 Q5Min, Dosing Weight 66.818, kg, PRN Pain Score 4-6, Start date: 05/17/20 15:27:00 FORMULA BOTTLER, Duration: 5 doses or times, Stop date: Limited # of times Fentanyl 2019- No 25 Memoria 1-24 microgram, l 21:27: Route: Casanova 00 IVP, Q5Min, Dosing Weight 66.818, kg, PRN Pain Score 4-6, Priority: Routine, Start date: 05/17/20 15:27:00 FORMULA BOTTLER, Duration: 4 doses or times, Stop date: Limited # of times Hydromorpho 2019-1 No 0.5 mg, Mem oria ne 24 Route: l 21:27: IVP, Casanova 00 Q5Min, Dosing Weight 66.818, kg, PRN Pain Score 7-10, Start date: 05/17/20 15:27:00 FORMULA BOTTLER, Duration: 4 doses or times, Stop date: Limited # of times Flumazenil 2020-1 No 0.2 mg, Anthony litzy 24 Route: l 21:27: IVP, PRN, Casanova 00 Dosing Weight 66.818, kg, PRN Benzodiaze pine Reversal, Initial dose, Start date: 05/17/20 15:27:00 FORMULA BOTTLER, Duration: 30 day, Stop date: 06/16/20 15:26:00 FORMULA BOTTLER Naloxone 2020-1 No 0.4 mg, Memori a -24 Route: l 21:27: IVP, Talon 00 Q2MIN, Dosing Weight 66.818, kg, PRN Narcotic Reversal, Start date: 05/17/20 15:27:00 FORMULA BOTTLER, Duration: 8 doses or times, Stop date: Limited # of times Ephedrine 2020-1 No 5 mg, Memoria 1-24 Route: l 21:27: IVP, Casanova 00 Q5Min, Dosing Weight 66.818, kg, PRN Low Blood Pressure, Start date: 05/17/20 15:27:00 FORMULA BOTTLER, Duration: 30 day, Stop date: 06/16/20 15:26:00 FORMULA BOTTLER Albuterol 2019-06 No 2.49 mg, Anthony litzy 0.83 MG/ML 07-17 Route: l Inhalant 21:27: NEB, Talon Solution 00 Q20Min, Dosing Weight 66.818, kg, PRN Wheezing, Priority: STAT, Start date: 05/17/20 15:27:00 FORMULA BOTTLER, Duration: 30 day, Stop date: 06/16/20 15:26:00 FORMULA BOTTLER Diphenhydra 2019-06 No 12.5 mg, Me moria mine 07-17 Route: l 21:27: IVP, Drug Talon 00 form: INJ, Q6H, Dosing Weight 66.818, kg, PRN Itching, Start date: 05/17/20 15:27:00 FORMULA BOTTLER, Duration: 30 day, Stop date: 06/16/20 15:26:00 FORMULA BOTTLER Ondansetron 2019-06 No 4 mg, Memor ia 07-17 Route: l 21:27: IVP, ONCE, Casanova Dosing Weight 66.818, kg, PRN Nausea & Vomiting, Start date: 05/17/20 15:27:00 FORMULA BOTTLER Sodium 2019-06 Yes 500 mL, Memoria Chloride 07-17 Infuse l 0.9% 21:27: Over: 20 Talon (Bolus) IV 00 minutes, Route: IV, ONCE, Dosing Weight 66.818 kg, Start date: 05/17/20 15:27:00 FORMULA BOTTLER, Stop date: 05/17/20 15:27:00 FORMULA BOTTLER Hydralazine 2019-06 No 10 mg, Anthony litzy 07-17 Route: l 21:27: IVP, Talon 00 Q20Min, Dosing Weight 66.818, kg, PRN Elevated BP, Start date: 05/17/20 15:27:00 FORMULA BOTTLER, Duration: 2 doses or times, Stop date: Limited # of times Acetaminoph 2019-06 No 1,000 mg, M emoria en 07-17 Route: PO, l 21:27: Drug form: Talon 00 TAB, ONCE, Dosing Weight 66.818, kg, PRN Pain Score 1-3, Start date: 05/17/20 15:27:00 FORMULA BOTTLER Oxycodone 2019- No 5 mg, Memoria Hydrochlori -24 Route: PO, l de 5 MG 21:27: Drug form: Herm vin Oral Tablet 00 TAB, Q4H, Dosing Weight 66.818, kg, PRN Pain Score 4-6, Start date: 05/17/20 15:27:00 FORMULA BOTTLER, Duration: 30 day, Stop date: 06/16/20 15:26:00 FORMULA BOTTLER Morphine 2019- No 2 mg, Memoria 24 Route: l 21:27: IVP, Casanova 00 Q5Min, Dosing Weight 66.818, kg, PRN Pain Score 4-6, Start date: 05/17/20 15:27:00 FORMULA BOTTLER, Duration: 5 doses or times, Stop date: Limited # of times Fentanyl 2019-06 No 25 Memoria -24 microgram, l 21:27: Route: Talon 00 IVP, Q5Min, Dosing Weight 66.818, kg, PRN Pain Score 4-6, Priority: Routine, Start date: 05/17/20 15:27:00 FORMULA BOTTLER, Duration: 4 doses or times, Stop date: Limited # of times Hydromorpho 2019-06 No 0.5 mg, Mem oria ne 07-17 Route: l 21:27: IVP, Talon 00 Q5Min, Dosing Weight 66.818, kg, PRN Pain Score 7-10, Start date: 05/17/20 15:27:00 FORMULA BOTTLER, Duration: 4 doses or times, Stop date: Limited # of times Flumazenil 2019-06 No 0.2 mg, Anthony litzy 07-17 Route: l 21:27: IVP, PRN, Casanova 00 Dosing Weight 66.818, kg, PRN Benzodiaze pine Reversal, Initial dose, Start date: 05/17/20 15:27:00 FORMULA BOTTLER, Duration: 30 day, Stop date: 06/16/20 15:26:00 FORMULA BOTTLER Naloxone 2019- No 0.4 mg, Memori a 07-17 Route: l 21:27: IVP, Talon 00 Q2MIN, Dosing Weight 66.818, kg, PRN Narcotic Reversal, Start date: 05/17/20 15:27:00 FORMULA BOTTLER, Duration: 8 doses or times, Stop date: Limited # of times Ephedrine 2019-06 No 5 mg, Memoria 07-17 Route: l 21:27: IVP, Casanova 00 Q5Min, Dosing Weight 66.818, kg, PRN Low Blood Pressure, Start date: 05/17/20 15:27:00 FORMULA BOTTLER, Duration: 30 day, Stop date: 06/16/20 15:26:00 FORMULA BOTTLER Albuterol 2019-06 No 2.49 mg, Anthony litzy 0.83 MG/ML 07-17 Route: l Inhalant 21:27: NEB, Casanova Solution 00 Q20Min, Dosing Weight 66.818, kg, PRN Wheezing, Priority: STAT, Start date: 05/17/20 15:27:00 FORMULA BOTTLER, Duration: 30 day, Stop date: 06/16/20 15:26:00 FORMULA BOTTLER Diphenhydra 2019-06 No 12.5 mg, Me moria mine 07-17 Route: l 21:27: IVP, Drug form: INJ, Q6H, Dosing Weight 66.818, kg, PRN Itching, Start date: 05/17/20 15:27:00 FORMULA BOTTLER, Duration: 30 day, Stop date: 06/16/20 15:26:00 FORMULA BOTTLER Ondansetron 2019-06 No 4 mg, Memor ia 07-17 Route: l 21:27: IVP, ONCE, Casanova 00 Dosing Weight 66.818, kg, PRN Nausea & Vomiting, Start date: 05/17/20 15:27:00 FORMULA BOTTLER Sodium 2019-06 Yes 500 mL, Memoria Chloride 07-17 Infuse l 0.9% 21:27: Over: 20 Talon (Bolus) IV 00 minutes, Route: IV, ONCE, Dosing Weight 66.818 kg, Start date: 05/17/20 15:27:00 FORMULA BOTTLER, Stop date: 05/17/20 15:27:00 FORMULA BOTTLER Hydralazine 2019-06 No 10 mg, Anthony litzy 07-17 Route: l 21:27: IVP, Talon 00 Q20Min, Dosing Weight 66.818, kg, PRN Elevated BP, Start date: 05/17/20 15:27:00 FORMULA BOTTLER, Duration: 2 doses or times, Stop date: Limited # of times Acetaminoph 2019-06 No 1,000 mg, M emoria en 1-24 Route: PO, l 21:27: Drug form: Casanova 00 TAB, ONCE, Dosing Weight 66.818, kg, PRN Pain Score 1-3, Start date: 05/17/20 15:27:00 FORMULA BOTTLER Oxycodone 2019- No 5 mg, Memoria Hydrochlori 24 Route: PO, l de 5 MG 21:27: Drug form: Herm vin Oral Tablet 00 TAB, Q4H, Dosing Weight 66.818, kg, PRN Pain Score 4-6, Start date: 05/17/20 15:27:00 FORMULA BOTTLER, Duration: 30 day, Stop date: 06/16/20 15:26:00 FORMULA BOTTLER Morphine 2019- No 2 mg, Memoria 07-17 Route: l 21:27: IVP, Talon 00 Q5Min, Dosing Weight 66.818, kg, PRN Pain Score 4-6, Start date: 05/17/20 15:27:00 FORMULA BOTTLER, Duration: 5 doses or times, Stop date: Limited # of times Fentanyl 2019- No 25 Memoria 24 microgram, l 21:27: Route: Talon 00 IVP, Q5Min, Dosing Weight 66.818, kg, PRN Pain Score 4-6, Priority: Routine, Start date: 05/17/20 15:27:00 FORMULA BOTTLER, Duration: 4 doses or times, Stop date: Limited # of times Hydromorpho 2019- No 0.5 mg, Mem oria ne 07-17 Route: l 21:27: IVP, Talon 00 Q5Min, Dosing Weight 66.818, kg, PRN Pain Score 7-10, Start date: 05/17/20 15:27:00 FORMULA BOTTLER, Duration: 4 doses or times, Stop date: Limited # of times Flumazenil 2019- No 0.2 mg, Anthony litzy 24 Route: l 21:27: IVP, PRN, Talon 00 Dosing Weight 66.818, kg, PRN Benzodiaze pine Reversal, Initial dose, Start date: 05/17/20 15:27:00 FORMULA BOTTLER, Duration: 30 day, Stop date: 06/16/20 15:26:00 FORMULA BOTTLER Naloxone 2019- No 0.4 mg, Memori a 07-17 Route: l 21:27: IVP, Casanova 00 Q2MIN, Dosing Weight 66.818, kg, PRN Narcotic Reversal, Start date: 05/17/20 15:27:00 FORMULA BOTTLER, Duration: 8 doses or times, Stop date: Limited # of times Ephedrine 2019-06 No 5 mg, Memoria 07-17 Route: l 21:27: IVP, Casanova 00 Q5Min, Dosing Weight 66.818, kg, PRN Low Blood Pressure, Start date: 05/17/20 15:27:00 FORMULA BOTTLER, Duration: 30 day, Stop date: 06/16/20 15:26:00 FORMULA BOTTLER Albuterol 2019-06 No 2.49 mg, Anthony litzy 0.83 MG/ML 07-17 Route: l Inhalant 21:27: NEB, Talon Solution 00 Q20Min, Dosing Weight 66.818, kg, PRN Wheezing, Priority: STAT, Start date: 05/17/20 15:27:00 FORMULA BOTTLER, Duration: 30 day, Stop date: 06/16/20 15:26:00 FORMULA BOTTLER Diphenhydra 2019-06 No 12.5 mg, Me moria mine 07-17 Route: l 21:27: IVP, Drug form: INJ, Q6H, Dosing Weight 66.818, kg, PRN Itching, Start date: 05/17/20 15:27:00 FORMULA BOTTLER, Duration: 30 day, Stop date: 06/16/20 15:26:00 FORMULA BOTTLER Ondansetron 2019-06 No 4 mg, Memor ia 07-17 Route: l 21:27: IVP, ONCE, Talon 00 Dosing Weight 66.818, kg, PRN Nausea & Vomiting, Start date: 05/17/20 15:27:00 FORMULA BOTTLER Sodium 2019- Yes 500 mL, Memoria Chloride 24 Infuse l 0.9% 21:27: Over: 20 Casanova (Bolus) IV 00 minutes, Route: IV, ONCE, Dosing Weight 66.818 kg, Start date: 05/17/20 15:27:00 FORMULA BOTTLER, Stop date: 05/17/20 15:27:00 FORMULA BOTTLER Hydralazine 2019-06 No 10 mg, Anthony litzy 07-17 Route: l 21:27: IVP, Talon 00 Q20Min, Dosing Weight 66.818, kg, PRN Elevated BP, Start date: 05/17/20 15:27:00 FORMULA BOTTLER, Duration: 2 doses or times, Stop date: Limited # of times Acetaminoph 2019- No 1,000 mg, M emoria en 24 Route: PO, l 21:27: Drug form: Talon 00 TAB, ONCE, Dosing Weight 66.818, kg, PRN Pain Score 1-3, Start date: 05/17/20 15:27:00 FORMULA BOTTLER Oxycodone 2019-06 No 5 mg, Memoria Hydrochlori 24 Route: PO, l de 5 MG 21:27: Drug form: Herm vin Oral Tablet 00 TAB, Q4H, Dosing Weight 66.818, kg, PRN Pain Score 4-6, Start date: 05/17/20 15:27:00 FORMULA BOTTLER, Duration: 30 day, Stop date: 06/16/20 15:26:00 FORMULA BOTTLER Morphine 2019-06 No 2 mg, Memoria 24 Route: l 21:27: IVP, Talon 00 Q5Min, Dosing Weight 66.818, kg, PRN Pain Score 4-6, Start date: 05/17/20 15:27:00 FORMULA BOTTLER, Duration: 5 doses or times, Stop date: Limited # of times Fentanyl 2019-06 No 25 Memoria 24 microgram, l 21:27: Route: Casanova 00 IVP, Q5Min, Dosing Weight 66.818, kg, PRN Pain Score 4-6, Priority: Routine, Start date: 05/17/20 15:27:00 FORMULA BOTTLER, Duration: 4 doses or times, Stop date: Limited # of times Hydromorpho 2019-06 No 0.5 mg, Mem oria ne 24 Route: l 21:27: IVP, Talon 00 Q5Min, Dosing Weight 66.818, kg, PRN Pain Score 7-10, Start date: 05/17/20 15:27:00 FORMULA BOTTLER, Duration: 4 doses or times, Stop date: Limited # of times Flumazenil 2019-06 No 0.2 mg, Anthony litzy 24 Route: l 21:27: IVP, PRN, Talon 00 Dosing Weight 66.818, kg, PRN Benzodiaze pine Reversal, Initial dose, Start date: 05/17/20 15:27:00 FORMULA BOTTLER, Duration: 30 day, Stop date: 06/16/20 15:26:00 FORMULA BOTTLER Naloxone 2019-06 No 0.4 mg, Memori a 07-17 Route: l 21:27: IVP, Talon 00 Q2MIN, Dosing Weight 66.818, kg, PRN Narcotic Reversal, Start date: 05/17/20 15:27:00 FORMULA BOTTLER, Duration: 8 doses or times, Stop date: Limited # of times Ephedrine 2019-06 No 5 mg, Memoria 07-17 Route: l 21:27: IVP, Casanova 00 Q5Min, Dosing Weight 66.818, kg, PRN Low Blood Pressure, Start date: 05/17/20 15:27:00 FORMULA BOTTLER, Duration: 30 day, Stop date: 06/16/20 15:26:00 FORMULA BOTTLER Albuterol 2019-06 No 2.49 mg, Anthony litzy 0.83 MG/ML 07-17 Route: l Inhalant 21:27: NEB, Casanova Solution 00 Q20Min, Dosing Weight 66.818, kg, PRN Wheezing, Priority: STAT, Start date: 05/17/20 15:27:00 FORMULA BOTTLER, Duration: 30 day, Stop date: 06/16/20 15:26:00 FORMULA BOTTLER Diphenhydra 2019-06 No 12.5 mg, Me moria mine 07-17 Route: l 21:27: IVP, Drug form: INJ, Q6H, Dosing Weight 66.818, kg, PRN Itching, Start date: 05/17/20 15:27:00 FORMULA BOTTLER, Duration: 30 day, Stop date: 06/16/20 15:26:00 FORMULA BOTTLER Ondansetron 2019-06 No 4 mg, Memor ia 07-17 Route: l 21:27: IVP, ONCE, Talon Dosing Weight 66.818, kg, PRN Nausea & Vomiting, Start date: 05/17/20 15:27:00 FORMULA BOTTLER Sodium 2019-06 Yes 500 mL, Memoria Chloride 24 Infuse l 0.9% 21:27: Over: 20 Casanova (Bolus) IV 00 minutes, Route: IV, ONCE, Dosing Weight 66.818 kg, Start date: 05/17/20 15:27:00 FORMULA BOTTLER, Stop date: 05/17/20 15:27:00 FORMULA BOTTLER Hydralazine 2019-06 No 10 mg, Anthony litzy 07-17 Route: l 21:27: IVP, Casanova 00 Q20Min, Dosing Weight 66.818, kg, PRN Elevated BP, Start date: 05/17/20 15:27:00 FORMULA BOTTLER, Duration: 2 doses or times, Stop date: Limited # of times Acetaminoph 2019-06 No 1,000 mg, M emoria en 07-17 Route: PO, l 21:27: Drug form: Casanova 00 TAB, ONCE, Dosing Weight 66.818, kg, PRN Pain Score 1-3, Start date: 05/17/20 15:27:00 FORMULA BOTTLER Oxycodone 2019-06 No 5 mg, Memoria Hydrochlori 07-17 Route: PO, l de 5 MG 21:27: Drug form: Herm vin Oral Tablet 00 TAB, Q4H, Dosing Weight 66.818, kg, PRN Pain Score 4-6, Start date: 05/17/20 15:27:00 FORMULA BOTTLER, Duration: 30 day, Stop date: 06/16/20 15:26:00 FORMULA BOTTLER Morphine 2019-06 No 2 mg, Memoria 07-17 Route: l 21:27: IVP, Talon 00 Q5Min, Dosing Weight 66.818, kg, PRN Pain Score 4-6, Start date: 05/17/20 15:27:00 FORMULA BOTTLER, Duration: 5 doses or times, Stop date: Limited # of times Fentanyl 2019-06 No 25 Memoria 1-24 microgram, l 21:27: Route: Talon 00 IVP, Q5Min, Dosing Weight 66.818, kg, PRN Pain Score 4-6, Priority: Routine, Start date: 05/17/20 15:27:00 FORMULA BOTTLER, Duration: 4 doses or times, Stop date: Limited # of times Hydromorpho 2019-06 No 0.5 mg, Mem oria ne 07-17 Route: l 21:27: IVP, Talon 00 Q5Min, Dosing Weight 66.818, kg, PRN Pain Score 7-10, Start date: 05/17/20 15:27:00 FORMULA BOTTLER, Duration: 4 doses or times, Stop date: Limited # of times Flumazenil 2019-06 No 0.2 mg, Anthony litzy 07-17 Route: l 21:27: IVP, PRN, Talon Dosing Weight 66.818, kg, PRN Benzodiaze pine Reversal, Initial dose, Start date: 05/17/20 15:27:00 FORMULA BOTTLER, Duration: 30 day, Stop date: 06/16/20 15:26:00 FORMULA BOTTLER Naloxone 2019-06 No 0.4 mg, Memori a 07-17 Route: l 21:27: IVP, Casanova 00 Q2MIN, Dosing Weight 66.818, kg, PRN Narcotic Reversal, Start date: 05/17/20 15:27:00 FORMULA BOTTLER, Duration: 8 doses or times, Stop date: Limited # of times Ephedrine 2019-06 No 5 mg, Memoria 07-17 Route: l 21:27: IVP, Casanova 00 Q5Min, Dosing Weight 66.818, kg, PRN Low Blood Pressure, Start date: 05/17/20 15:27:00 FORMULA BOTTLER, Duration: 30 day, Stop date: 06/16/20 15:26:00 FORMULA BOTTLER Albuterol 2019-06 No 2.49 mg, Anthony litzy 0.83 MG/ML 07-17 Route: l Inhalant 21:27: NEB, Casanova Solution 00 Q20Min, Dosing Weight 66.818, kg, PRN Wheezing, Priority: STAT, Start date: 05/17/20 15:27:00 FORMULA BOTTLER, Duration: 30 day, Stop date: 06/16/20 15:26:00 FORMULA BOTTLER Diphenhydra 2019-06 No 12.5 mg, Me moria mine 07-17 Route: l 21:27: IVP, Drug form: INJ, Q6H, Dosing Weight 66.818, kg, PRN Itching, Start date: 05/17/20 15:27:00 FORMULA BOTTLER, Duration: 30 day, Stop date: 06/16/20 15:26:00 FORMULA BOTTLER Ondansetron 2019-06 No 4 mg, Memor ia 07-17 Route: l 21:27: IVP, ONCE, Casanova 00 Dosing Weight 66.818, kg, PRN Nausea & Vomiting, Start date: 05/17/20 15:27:00 FORMULA BOTTLER Sodium 2019-06 Yes 500 mL, Memoria Chloride 1-24 Infuse l 0.9% 21:27: Over: 20 Talon (Bolus) IV 00 minutes, Route: IV, ONCE, Dosing Weight 66.818 kg, Start date: 05/17/20 15:27:00 FORMULA BOTTLER, Stop date: 05/17/20 15:27:00 FORMULA BOTTLER Hydralazine 2019- No 10 mg, Anthony litzy -24 Route: l 21:27: IVP, Casanova 00 Q20Min, Dosing Weight 66.818, kg, PRN Elevated BP, Start date: 05/17/20 15:27:00 FORMULA BOTTLER, Duration: 2 doses or times, Stop date: Limited # of times Acetaminoph 2019- No 1,000 mg, M emoria en 24 Route: PO, l 21:27: Drug form: Casanova 00 TAB, ONCE, Dosing Weight 66.818, kg, PRN Pain Score 1-3, Start date: 05/17/20 15:27:00 FORMULA BOTTLER Oxycodone 2019-1 No 5 mg, Memoria Hydrochlori 24 Route: PO, l de 5 MG 21:27: Drug form: Herm vin Oral Tablet 00 TAB, Q4H, Dosing Weight 66.818, kg, PRN Pain Score 4-6, Start date: 05/17/20 15:27:00 FORMULA BOTTLER, Duration: 30 day, Stop date: 06/16/20 15:26:00 FORMULA BOTTLER Morphine 2019-1 No 2 mg, Memoria -24 Route: l 21:27: IVP, Talon 00 Q5Min, Dosing Weight 66.818, kg, PRN Pain Score 4-6, Start date: 05/17/20 15:27:00 FORMULA BOTTLER, Duration: 5 doses or times, Stop date: Limited # of times Fentanyl 2019-1 No 25 Memoria 1-24 microgram, l 21:27: Route: Talon 00 IVP, Q5Min, Dosing Weight 66.818, kg, PRN Pain Score 4-6, Priority: Routine, Start date: 05/17/20 15:27:00 FORMULA BOTTLER, Duration: 4 doses or times, Stop date: Limited # of times Hydromorpho 2019-1 No 0.5 mg, Mem oria ne -24 Route: l 21:27: IVP, Talon 00 Q5Min, Dosing Weight 66.818, kg, PRN Pain Score 7-10, Start date: 05/17/20 15:27:00 FORMULA BOTTLER, Duration: 4 doses or times, Stop date: Limited # of times Flumazenil 2019-06 No 0.2 mg, Anthony litzy 07-17 Route: l 21:27: IVP, PRN, Talon 00 Dosing Weight 66.818, kg, PRN Benzodiaze pine Reversal, Initial dose, Start date: 05/17/20 15:27:00 FORMULA BOTTLER, Duration: 30 day, Stop date: 06/16/20 15:26:00 FORMULA BOTTLER Naloxone 2019-06 No 0.4 mg, Memori a 07-17 Route: l 21:27: IVP, Talon 00 Q2MIN, Dosing Weight 66.818, kg, PRN Narcotic Reversal, Start date: 05/17/20 15:27:00 FORMULA BOTTLER, Duration: 8 doses or times, Stop date: Limited # of times Ephedrine 2019-06 No 5 mg, Memoria 07-17 Route: l 21:27: IVP, Casanova 00 Q5Min, Dosing Weight 66.818, kg, PRN Low Blood Pressure, Start date: 05/17/20 15:27:00 FORMULA BOTTLER, Duration: 30 day, Stop date: 06/16/20 15:26:00 FORMULA BOTTLER Albuterol 2019-06 No 2.49 mg, Anthony litzy 0.83 MG/ML 07-17 Route: l Inhalant 21:27: NEB, Talon Solution 00 Q20Min, Dosing Weight 66.818, kg, PRN Wheezing, Priority: STAT, Start date: 05/17/20 15:27:00 FORMULA BOTTLER, Duration: 30 day, Stop date: 06/16/20 15:26:00 FORMULA BOTTLER Diphenhydra 2019-06 No 12.5 mg, Me moria mine 07-17 Route: l 21:27: IVP, Drug Talon 00 form: INJ, Q6H, Dosing Weight 66.818, kg, PRN Itching, Start date: 05/17/20 15:27:00 FORMULA BOTTLER, Duration: 30 day, Stop date: 06/16/20 15:26:00 FORMULA BOTTLER Ondansetron 2019-06 No 4 mg, Memor ia 07-17 Route: l 21:27: IVP, ONCE, Talon 00 Dosing Weight 66.818, kg, PRN Nausea & Vomiting, Start date: 05/17/20 15:27:00 FORMULA BOTTLER Sodium 2019- Yes 500 mL, Memoria Chloride 07-17 Infuse l 0.9% 21:27: Over: 20 Talon (Bolus) IV 00 minutes, Route: IV, ONCE, Dosing Weight 66.818 kg, Start date: 05/17/20 15:27:00 FORMULA BOTTLER, Stop date: 05/17/20 15:27:00 FORMULA BOTTLER Hydralazine 2019- No 10 mg, Anthony litzy 07-17 Route: l 21:27: IVP, Casanova 00 Q20Min, Dosing Weight 66.818, kg, PRN Elevated BP, Start date: 05/17/20 15:27:00 FORMULA BOTTLER, Duration: 2 doses or times, Stop date: Limited # of times Acetaminoph 2019- No 1,000 mg, M emoria en 07-17 Route: PO, l 21:27: Drug form: Talon 00 TAB, ONCE, Dosing Weight 66.818, kg, PRN Pain Score 1-3, Start date: 05/17/20 15:27:00 FORMULA BOTTLER Oxycodone 2019- No 5 mg, Memoria Hydrochlori 07-17 Route: PO, l de 5 MG 21:27: Drug form: Herm vin Oral Tablet 00 TAB, Q4H, Dosing Weight 66.818, kg, PRN Pain Score 4-6, Start date: 05/17/20 15:27:00 FORMULA BOTTLER, Duration: 30 day, Stop date: 06/16/20 15:26:00 FORMULA BOTTLER Morphine 2019- No 2 mg, Memoria 07-17 Route: l 21:27: IVP, Casanova 00 Q5Min, Dosing Weight 66.818, kg, PRN Pain Score 4-6, Start date: 05/17/20 15:27:00 FORMULA BOTTLER, Duration: 5 doses or times, Stop date: Limited # of times Fentanyl 2019-06 No 25 Memoria -24 microgram, l 21:27: Route: Casanova 00 IVP, Q5Min, Dosing Weight 66.818, kg, PRN Pain Score 4-6, Priority: Routine, Start date: 05/17/20 15:27:00 FORMULA BOTTLER, Duration: 4 doses or times, Stop date: Limited # of times Hydromorpho 2019- No 0.5 mg, Mem oria ne 07-17 Route: l 21:27: IVP, Casanova 00 Q5Min, Dosing Weight 66.818, kg, PRN Pain Score 7-10, Start date: 05/17/20 15:27:00 FORMULA BOTTLER, Duration: 4 doses or times, Stop date: Limited # of times Flumazenil 2019-06 No 0.2 mg, Anthony litzy 07-17 Route: l 21:27: IVP, PRN, Talon 00 Dosing Weight 66.818, kg, PRN Benzodiaze pine Reversal, Initial dose, Start date: 05/17/20 15:27:00 FORMULA BOTTLER, Duration: 30 day, Stop date: 06/16/20 15:26:00 FORMULA BOTTLER Naloxone 2019-06 No 0.4 mg, Memori a 07-17 Route: l 21:27: IVP, Talon 00 Q2MIN, Dosing Weight 66.818, kg, PRN Narcotic Reversal, Start date: 05/17/20 15:27:00 FORMULA BOTTLER, Duration: 8 doses or times, Stop date: Limited # of times Ephedrine 2019-06 No 5 mg, Memoria 07-17 Route: l 21:27: IVP, Talon 00 Q5Min, Dosing Weight 66.818, kg, PRN Low Blood Pressure, Start date: 05/17/20 15:27:00 FORMULA BOTTLER, Duration: 30 day, Stop date: 06/16/20 15:26:00 FORMULA BOTTLER Albuterol 2019- No 2.49 mg, Anthony litzy 0.83 MG/ML 07-17 Route: l Inhalant 21:27: NEB, Talon Solution 00 Q20Min, Dosing Weight 66.818, kg, PRN Wheezing, Priority: STAT, Start date: 05/17/20 15:27:00 FORMULA BOTTLER, Duration: 30 day, Stop date: 06/16/20 15:26:00 FORMULA BOTTLER Diphenhydra 2019-06 No 12.5 mg, Me moria mine 07-17 Route: l 21:27: IVP, Drug Casanova 00 form: INJ, Q6H, Dosing Weight 66.818, kg, PRN Itching, Start date: 05/17/20 15:27:00 FORMULA BOTTLER, Duration: 30 day, Stop date: 06/16/20 15:26:00 FORMULA BOTTLER Ondansetron 2019-06 No 4 mg, Memor ia 07-17 Route: l 21:27: IVP, ONCE, Dosing Weight 66.818, kg, PRN Nausea & Vomiting, Start date: 05/17/20 15:27:00 FORMULA BOTTLER fentaNYL 2019-06 No Route: IV, Mem oria (ANES) 07-17 Drug form: l 18:18: INJ, ONCE, Stop date: 05/17/20 12:18:00 FORMULA BOTTLER propofol 2019-06 No Route: IV, Mem oria (ANES) - Drug form: l 18:18: INJ, ONCE, Stop date: 05/17/20 12:18:00 FORMULA BOTTLER fentaNYL 2019-06 No Route: IV, Mem oria (ANES) 07-17 Drug form: l 18:18: INJ, ONCE, Stop date: 05/17/20 12:18:00 FORMULA BOTTLER propofol 2019-06 No Route: IV, Mem oria (ANES) 07-17 Drug form: l 18:18: INJ, ONCE, Stop date: 05/17/20 12:18:00 FORMULA BOTTLER fentaNYL 2019-06 No Route: IV, Mem oria (ANES) - Drug form: l 18:18: INJ, ONCE, Stop date: 05/17/20 12:18:00 FORMULA BOTTLER propofol 2019-06 No Route: IV, Mem oria (ANES) 07-17 Drug form: l 18:18: INJ, ONCE, Stop date: 05/17/20 12:18:00 FORMULA BOTTLER fentaNYL 2019-06 No Route: IV, Mem oria (ANES) 124 Drug form: l 18:18: INJ, ONCE, Stop date: 05/17/20 12:18:00 FORMULA BOTTLER propofol 2019-06 No Route: IV, Mem oria (ANES) 1-24 Drug form: l 18:18: INJ, ONCE, Stop date: 05/17/20 12:18:00 FORMULA BOTTLER fentaNYL 2019-06 No Route: IV, Mem oria (ANES) 1-24 Drug form: l 18:18: INJ, ONCE, Stop date: 05/17/20 12:18:00 FORMULA BOTTLER propofol 2019-06 No Route: IV, Mem oria (ANES) 1-24 Drug form: l 18:18: INJ, ONCE, Stop date: 05/17/20 12:18:00 FORMULA BOTTLER fentaNYL 2019-06 No Route: IV, Mem oria (ANES) 1-24 Drug form: l 18:18: INJ, ONCE, Stop date: 05/17/20 12:18:00 FORMULA BOTTLER propofol 2019-06 No Route: IV, Mem oria (ANES) 1- Drug form: l 18:18: INJ, ONCE, Stop date: 05/17/20 12:18:00 FORMULA BOTTLER fentaNYL 2019-06 No Route: IV, Mem oria (ANES) 1- Drug form: l 18:18: INJ, ONCE, Stop date: 05/17/20 12:18:00 FORMULA BOTTLER propofol 2019-06 No Route: IV, Mem oria (ANES) - Drug form: l 18:18: INJ, ONCE, Stop date: 05/17/20 12:18:00 FORMULA BOTTLER ceFAZolin 2019-06 No Route: IV, Me moria (ANES) 1- Drug form: l 18:08: INJ, ONCE, Stop date: 05/17/20 12:08:00 FORMULA BOTTLER Sodium 2020- No Route: IV, Memor ia Chloride 1-24 Total l 0.9% IV 18:08: Volume: Casanova (ANES) 500 00 500, Start mL date: 05/17/20 12:08:00 FORMULA BOTTLER, Stop date: 05/17/20 13:08:00 FORMULA BOTTLER ceFAZolin 2020 No Route: IV, Me moria (ANES) 1-24 Drug form: l 18:08: INJ, ONCE, Stop date: 05/17/20 12:08:00 FORMULA BOTTLER Sodium 2020- No Route: IV, Memor ia Chloride 1-24 Total l 0.9% IV 18:08: Volume: Talon (ANES) 500 00 500, Start mL date: 05/17/20 12:08:00 FORMULA BOTTLER, Stop date: 05/17/20 13:08:00 FORMULA BOTTLER ceFAZolin 2020-1 No Route: IV, Me moria (ANES) 1-24 Drug form: l 18:08: INJ, ONCE, Talon Stop date: 05/17/20 12:08:00 FORMULA BOTTLER Sodium 2020-1 No Route: IV, Memor ia Chloride 1-24 Total l 0.9% IV 18:08: Volume: Talon (ANES) 500 00 500, Start mL date: 05/17/20 12:08:00 FORMULA BOTTLER, Stop date: 05/17/20 13:08:00 FORMULA BOTTLER ceFAZolin 2020-1 No Route: IV, Me moria (ANES) 1-24 Drug form: l 18:08: INJ, ONCE, Talon 00 Stop date: 05/17/20 12:08:00 FORMULA BOTTLER Sodium 2020-1 No Route: IV, Memor ia Chloride 1-24 Total l 0.9% IV 18:08: Volume: Talon (ANES) 500 00 500, Start mL date: 05/17/20 12:08:00 FORMULA BOTTLER, Stop date: 05/17/20 13:08:00 FORMULA BOTTLER ceFAZolin 2020-1 No Route: IV, Me moria (ANES) 1-24 Drug form: l 18:08: INJ, ONCE, [place] 00 Stop date: 05/17/20 12:08:00 FORMULA BOTTLER Sodium 2020-1 No Route: IV, Memor ia Chloride 1-24 Total l 0.9% IV 18:08: Volume: Talon (ANES) 500 00 500, Start mL date: 05/17/20 12:08:00 FORMULA BOTTLER, Stop date: 05/17/20 13:08:00 FORMULA BOTTLER ceFAZolin 2020-1 No Route: IV, Me moria (ANES) 1-24 Drug form: l 18:08: INJ, ONCE, Talon Stop date: 05/17/20 12:08:00 FORMULA BOTTLER Sodium 2020-1 No Route: IV, Memor ia Chloride 1-24 Total l 0.9% IV 18:08: Volume: Talon (ANES) 500 00 500, Start mL date: 05/17/20 12:08:00 FORMULA BOTTLER, Stop date: 05/17/20 13:08:00 FORMULA BOTTLER ceFAZolin 2020-1 No Route: IV, Me moria (ANES) 1-24 Drug form: l 18:08: INJ, ONCE, Talon 00 Stop date: 05/17/20 12:08:00 FORMULA BOTTLER Sodium 2019-06 No Route: IV, Memor ia Chloride 07-17 Total l 0.9% IV 18:08: Volume: Casanova (ANES) 500 00 500, Start mL date: 05/17/20 12:08:00 FORMULA BOTTLER, Stop date: 05/17/20 13:08:00 FORMULA BOTTLER midazolam 2019-06 No Route: IV, Me moria (ANES) 07-17 Drug form: l 18:03: SOLN, Talon 00 ONCE, Stop date: 05/17/20 12:03:00 FORMULA BOTTLER midazolam 2019-06 No Route: IV, Me moria (ANES) 07-17 Drug form: l 18:03: SOLN, [place] 00 ONCE, Stop date: 05/17/20 12:03:00 FORMULA BOTTLER midazolam 2019-06 No Route: IV, Me moria (ANES) 07-17 Drug form: l 18:03: SOLN, [place] 00 ONCE, Stop date: 05/17/20 12:03:00 FORMULA BOTTLER midazolam 2019-06 No Route: IV, Me moria (ANES) 07-17 Drug form: l 18:03: SOLN, Talon 00 ONCE, Stop date: 05/17/20 12:03:00 FORMULA BOTTLER midazolam 2019-06 No Route: IV, Me moria (ANES) 07-17 Drug form: l 18:03: SOLN, [place] 00 ONCE, Stop date: 05/17/20 12:03:00 FORMULA BOTTLER midazolam 2019-06 No Route: IV, Me moria (ANES) 07-17 Drug form: l 18:03: SOLN, Talon 00 ONCE, Stop date: 05/17/20 12:03:00 FORMULA BOTTLER midazolam 2019-06 No Route: IV, Me moria (ANES) 07-17 Drug form: l 18:03: SOLN, Talon 00 ONCE, Stop date: 05/17/20 12:03:00 FORMULA BOTTLER vancomycin 2019-06 No Route: IV, M emoria (ANES) 1000 07-17 Drug form: l mg 17:46: INJ, Start [place] 00 date: 05/17/20 11:46:00 FORMULA BOTTLER, Stop date: 05/17/20 12:46:00 FORMULA BOTTLER vancomycin 2019-06 No Route: IV, Keerthi emoria (ANES) 1000 07-17 Drug form: l mg 17:46: INJ, Start date: 05/17/20 11:46:00 FORMULA BOTTLER, Stop date: 05/17/20 12:46:00 FORMULA BOTTLER vancomycin 2019-06 No Route: IV, Keerthi emoria (ANES) 1000 07-17 Drug form: l mg 17:46: INJ, Start date: 05/17/20 11:46:00 FORMULA BOTTLER, Stop date: 05/17/20 12:46:00 FORMULA BOTTLER vancomycin 2019-06 No Route: IV, Keerthi emoria (ANES) 1000 07-17 Drug form: l mg 17:46: INJ, date: 05/17/20 11:46:00 FORMULA BOTTLER, Stop date: 05/17/20 12:46:00 FORMULA BOTTLER vancomycin 2019-06 No Route: IV, Keerthi emoria (ANES) 1000 07-17 Drug form: l mg 17:46: INJ, date: 05/17/20 11:46:00 FORMULA BOTTLER, Stop date: 05/17/20 12:46:00 FORMULA BOTTLER vancomycin 2019-06 No Route: IV, Keerthi emoria (ANES) 1000 07-17 Drug form: l mg 17:46: INJ, date: 05/17/20 11:46:00 FORMULA BOTTLER, Stop date: 05/17/20 12:46:00 FORMULA BOTTLER vancomycin 2019-06 No Route: IV, Keerthi emoria (ANES) 1000 07-17 Drug form: l mg 17:46: INJ, date: 05/17/20 11:46:00 FORMULA BOTTLER, Stop date: 05/17/20 12:46:00 FORMULA BOTTLER Calcium 2019-06 No 1,000 mL, Memor ia Chloride 07-17 Rate: 75 l 0.0014 16:07: ml/hr, MEQ/ML / 00 Infuse Potassium over: 13.3 Chloride hr, Route: 0.004 IV, Dosing MEQ/ML / Weight Sodium 66.818 kg, Chloride Total 0.103 Volume: MEQ/ML / 1,000, Sodium Start Lactate date: 0.028 05/17/20 MEQ/ML 10:07:00 Injectable FORMULA BOTTLER, Solution Duration: 30 day, Stop date: 06/16/20 10:06:00 FORMULA BOTTLER, 1.74, m2 Calcium 2020-1 No 1,000 mL, Memor ia Chloride 1-24 Rate: 75 l 0.0014 16:07: ml/hr, [place] MEQ/ML / 00 Infuse Potassium over: 13.3 Chloride hr, Route: 0.004 IV, Dosing MEQ/ML / Weight Sodium 66.818 kg, Chloride Total 0.103 Volume: MEQ/ML / 1,000, Sodium Start Lactate date: 0.028 05/17/20 MEQ/ML 10:07:00 Injectable FORMULA BOTTLER, Solution Duration: 30 day, Stop date: 06/16/20 10:06:00 FORMULA BOTTLER, 1.74, m2 Calcium 2019-1 No 1,000 mL, Memor ia Chloride 1-24 Rate: 75 l 0.0014 16:07: ml/hr, [place] MEQ/ML / 00 Infuse Potassium over: 13.3 Chloride hr, Route: 0.004 IV, Dosing MEQ/ML / Weight Sodium 66.818 kg, Chloride Total 0.103 Volume: MEQ/ML / 1,000, Sodium Start Lactate date: 0.028 20 MEQ/ML 10:07:00 Injectable FORMULA BOTTLER, Solution Duration: 30 day, Stop date: 06/16/20 10:06:00 FORMULA BOTTLER, 1.74, m2 Calcium 2019-1 No 1,000 mL, Memor ia Chloride 1-24 Rate: 75 l 0.0014 16:07: ml/hr, [place] MEQ/ML / 00 Infuse Potassium over: 13.3 Chloride hr, Route: 0.004 IV, Dosing MEQ/ML / Weight Sodium 66.818 kg, Chloride Total 0.103 Volume: MEQ/ML / 1,000, Sodium Start Lactate date: 0.028 20 MEQ/ML 10:07:00 Injectable FORMULA BOTTLER, Solution Duration: 30 day, Stop date: 06/16/20 10:06:00 FORMULA BOTTLER, 1.74, m2 Calcium 2019-1 No 1,000 mL, Memor ia Chloride 1-24 Rate: 75 l 0.0014 16:07: ml/hr, [place] MEQ/ML / 00 Infuse Potassium over: 13.3 Chloride hr, Route: 0.004 IV, Dosing MEQ/ML / Weight Sodium 66.818 kg, Chloride Total 0.103 Volume: MEQ/ML / 1,000, Sodium Start Lactate date: 0.028 20 MEQ/ML 10:07:00 Injectable FORMULA BOTTLER, Solution Duration: 30 day, Stop date: 06/16/20 10:06:00 FORMULA BOTTLER, 1.74, m2 Calcium 2019-06 No 1,000 mL, Memor ia Chloride 1-24 Rate: 75 l 0.0014 16:07: ml/hr, [place] MEQ/ML / 00 Infuse Potassium over: 13.3 Chloride hr, Route: 0.004 IV, Dosing MEQ/ML / Weight Sodium 66.818 kg, Chloride Total 0.103 Volume: MEQ/ML / 1,000, Sodium Start Lactate date: 0.028 05/17/20 MEQ/ML 10:07:00 Injectable FORMULA BOTTLER, Solution Duration: 30 day, Stop date: 06/16/20 10:06:00 FORMULA BOTTLER, 1.74, m2 Calcium 2019-06 No 1,000 mL, Memor ia Chloride 1-24 Rate: 75 l 0.0014 16:07: ml/hr, [place] MEQ/ML / 00 Infuse Potassium over: 13.3 Chloride hr, Route: 0.004 IV, Dosing MEQ/ML / Weight Sodium 66.818 kg, Chloride Total 0.103 Volume: MEQ/ML / 1,000, Sodium Start Lactate date: 0.028 05/17/20 MEQ/ML 10:07:00 Injectable FORMULA BOTTLER, Solution Duration: 30 day, Stop date: 06/16/20 10:06:00 FORMULA BOTTLER, 1.74, m2 Vancomycin 2019-06 No 1 gm, Memori a 07-16 Route: l 23:00: IVPB, Drug form: INJ, PRE OP, Dosing Weight 63.636, kg, Start date: 05/16/20 17:00:00 FORMULA BOTTLER, Duration: 1 day, Stop date: 05/17/20 16:59:00 FORMULA BOTTLER, ABX Indication : Surgical Prophylaxi s Ancef 2019- No 2 gm, Memoria 07-16 Route: l 23:00: IVPB, PRE Talon 00 OP, Dosing Weight 63.636, kg, Start date: 05/16/20 17:00:00 FORMULA BOTTLER, Duration: 1 day, Stop date: 05/17/20 16:59:00 FORMULA BOTTLER, ABX Indication : Surgical Prophylaxi s Vancomycin 2020-1 No 1 gm, Memori a 07-16 Route: l 23:00: IVPB, Drug [place] 00 form: INJ, PRE OP, Dosing Weight 63.636, kg, Start date: 05/16/20 17:00:00 FORMULA BOTTLER, Duration: 1 day, Stop date: 05/17/20 16:59:00 FORMULA BOTTLER, ABX Indication : Surgical Prophylaxi s Ancef 2020-1 No 2 gm, Memoria 07-16 Route: l 23:00: IVPB, PRE Talon 00 OP, Dosing Weight 63.636, kg, Start date: 05/16/20 17:00:00 FORMULA BOTTLER, Duration: 1 day, Stop date: 05/17/20 16:59:00 FORMULA BOTTLER, ABX Indication : Surgical Prophylaxi s Vancomycin 2019-1 No 1 gm, Memori a 07-16 Route: l 23:00: IVPB, Drug [place] 00 form: INJ, PRE OP, Dosing Weight 63.636, kg, Start date: 05/16/20 17:00:00 FORMULA BOTTLER, Duration: 1 day, Stop date: 05/17/20 16:59:00 FORMULA BOTTLER, ABX Indication : Surgical Prophylaxi s Ancef 2020-1 No 2 gm, Memoria 07-16 Route: l 23:00: IVPB, PRE Talon 00 OP, Dosing Weight 63.636, kg, Start date: 05/16/20 17:00:00 FORMULA BOTTLER, Duration: 1 day, Stop date: 05/17/20 16:59:00 FORMULA BOTTLER, ABX Indication : Surgical Prophylaxi s Vancomycin 2019-1 No 1 gm, Memori a 07-16 Route: l 23:00: IVPB, Drug Talon 00 form: INJ, PRE OP, Dosing Weight 63.636, kg, Start date: 05/16/20 17:00:00 FORMULA BOTTLER, Duration: 1 day, Stop date: 05/17/20 16:59:00 FORMULA BOTTLER, ABX Indication : Surgical Prophylaxi s Ancef 2020-1 No 2 gm, Memoria 07-16 Route: l 23:00: IVPB, PRE Talon 00 OP, Dosing Weight 63.636, kg, Start date: 05/16/20 17:00:00 FORMULA BOTTLER, Duration: 1 day, Stop date: 05/17/20 16:59:00 FORMULA BOTTLER, ABX Indication : Surgical Prophylaxi s Vancomycin 2020-1 No 1 gm, Memori a 1-23 Route: l 23:00: IVPB, Drug [place] 00 form: INJ, PRE OP, Dosing Weight 63.636, kg, Start date: 05/16/20 17:00:00 FORMULA BOTTLER, Duration: 1 day, Stop date: 05/17/20 16:59:00 FORMULA BOTTLER, ABX Indication : Surgical Prophylaxi s Ancef 2020-1 No 2 gm, Memoria -23 Route: l 23:00: IVPB, PRE [place] 00 OP, Dosing Weight 63.636, kg, Start date: 05/16/20 17:00:00 FORMULA BOTTLER, Duration: 1 day, Stop date: 05/17/20 16:59:00 FORMULA BOTTLER, ABX Indication : Surgical Prophylaxi s Vancomycin 2019-1 No 1 gm, Memori a 1- Route: l 23:00: IVPB, Drug [place] 00 form: INJ, PRE OP, Dosing Weight 63.636, kg, Start date: 05/16/20 17:00:00 FORMULA BOTTLER, Duration: 1 day, Stop date: 05/17/20 16:59:00 FORMULA BOTTLER, ABX Indication : Surgical Prophylaxi s Ancef 2020-1 No 2 gm, Memoria - Route: l 23:00: IVPB, PRE Talon 00 OP, Dosing Weight 63.636, kg, Start date: 05/16/20 17:00:00 FORMULA BOTTLER, Duration: 1 day, Stop date: 05/17/20 16:59:00 FORMULA BOTTLER, ABX Indication : Surgical Prophylaxi s Vancomycin 2019-1 No 1 gm, Memori a 1-23 Route: l 23:00: IVPB, Drug [place] 00 form: INJ, PRE OP, Dosing Weight 63.636, kg, Start date: 05/16/20 17:00:00 FORMULA BOTTLER, Duration: 1 day, Stop date: 05/17/20 16:59:00 FORMULA BOTTLER, ABX Indication : Surgical Prophylaxi s Ancef 2020-1 No 2 gm, Memoria 1-23 Route: l 23:00: IVPB, PRE [place] 00 OP, Dosing Weight 63.636, kg, Start date: 05/16/20 17:00:00 FORMULA BOTTLER, Duration: 1 day, Stop date: 05/17/20 16:59:00 FORMULA BOTTLER, ABX Indication : Surgical Prophylaxi s metoprolol [...] 30 tab, 0 coated Refill(s), tablet Pharmacy: [facility] #[id number], 170.18, cm, 04/05/20 21:48:00 CDT, Height, 63.636, [...] 30 tab, 0 coated Refill(s), tablet Pharmacy: [facility] #[id number], 170.18, cm, 04/05/20 21:48:00 CDT, Height, 63.636, [...] 30 tab, 0 coated Refill(s), tablet Pharmacy: [facility] #[id number], 170.18, cm, 04/05/20 21:48:00 CDT, Height, 63.636, [...] 30 tab, 0 coated Refill(s), tablet Pharmacy: [facility] #[id number], 170.18, cm, 04/05/20 21:48:00 CDT, Height, 63.636, [...] 30 tab, 0 coated Refill(s), tablet Pharmacy: [facility] #[id number], 170.18, cm, 04/05/20 21:48:00 CDT, Height, 63.636, [...] 30 tab, 0 coated Refill(s), tablet Pharmacy: [facility] #[id number], 170.18, cm, 04/05/20 21:48:00 CDT, Height, 63.636, [...] 30 tab, 0 coated Refill(s), tablet Pharmacy: [facility] #[id number], 170.18, cm, 04/05/20 21:48:00 CDT, Height, 63.636, kg, 04/05/20 21:48:00 CDT, Weight Nephro-Flash 2019-06 No Notes: Anthony litzy Rx 0-16 (Same as: l 14:00: Nephro-Vit [place] 00 e Rx and Diatx) Give with food. Nephro-Flash 2019-06 No Notes: Anthony litzy Rx 0-16 (Same as: l 14:00: Nephro-Vit [place] 00 e Rx and Diatx) Give with food. Nephro-Flash 2019-06 No Notes: Anthony litzy Rx 0-16 (Same as: l 14:00: Nephro-Vit [place] 00 e Rx and Diatx) Give with food. Nephro-Flash 2019-06 No Notes: Anthony litzy Rx 0-16 (Same as: l 14:00: Nephro-Vit Talon 00 e Rx and Diatx) Give with food. NephroFlash 2019-06 No Notes: Anthony litzy Rx 0-16 (Same as: l 14:00: Nephro-Vit [place]on 00 e Rx and Diatx) Give with food. Nephro-Flash 2019-06 No Notes: Anthony litzy Rx 0-16 (Same as: l 14:00: Nephro-Vit [place]on 00 e Rx and Diatx) Give with food. NephroFlash 2019-06 No Notes: Anthony litzy Rx 0-16 [...] n 0-15 (Same as: l 02:00: Lipitor) [place] 00 atorvastati 2019-06 No Notes: Anthony litzy n 0-15 (Same as: l 02:00: Lipitor) atorvastati 2019-06 No Notes: Anthony litzy n 0-15 (Same as: l 02:00: Lipitor) [place] 00 atorvastati 2019-06 No Notes: Anthony litzy n [...] ONCE, Stop date: 04/06/20 16:50:00 CDT neostigmine 2020 [...] Duration: 30 day, Stop date: 05/06/20 16:25:00 FORMULA BOTTLER, 1.74, m2, 0 normal 2020-1 No 1,000 mL, Memori a saline 0.9% 0-14 Rate: 100 l IV 1,000 mL 21:26: ml/hr, Herm vin 00 Infuse over: 10 hr, Route: IV, Dosing Weight 63.636 kg, Total Volume: 1,000, Start date: 04/06/20 16:26:00 CDT, Duration: 30 day, Stop date: 05/06/20 16:25:00 FORMULA BOTTLER, 1.74, m2, 0 normal 2020-1 No 1,000 mL, Memori a saline 0.9% 0-14 Rate: 100 l IV 1,000 mL 21:26: ml/hr, Herm vin 00 Infuse over: 10 hr, Route: IV, Dosing Weight 63.636 kg, Total Volume: 1,000, Start date: 04/06/20 16:26:00 CDT, Duration: 30 day, Stop date: 05/06/20 16:25:00 FORMULA BOTTLER, 1.74, m2, 0 normal 2020-1 No 1,000 mL, Memori a saline 0.9% 0-14 Rate: 100 l IV 1,000 mL 21:26: ml/hr, Herm vin 00 Infuse over: 10 hr, Route: IV, Dosing Weight 63.636 kg, Total Volume: 1,000, Start date: 04/06/20 16:26:00 CDT, Duration: 30 day, Stop date: 05/06/20 16:25:00 FORMULA BOTTLER, 1.74, m2, 0 normal 2020-1 No 1,000 mL, Memori a saline 0.9% 0-14 Rate: 100 l IV 1,000 mL 21:26: ml/hr, Herm vin 00 Infuse over: 10 hr, Route: IV, Dosing Weight 63.636 kg, Total Volume: 1,000, Start date: 04/06/20 16:26:00 CDT, Duration: 30 day, Stop date: 05/06/20 16:25:00 FORMULA BOTTLER, 1.74, m2, 0 normal 2019- No 1,000 mL, Memori a saline 0.9% 0-14 Rate: 100 l IV 1,000 mL 21:26: ml/hr, Herm vin 00 Infuse over: 10 hr, Route: IV, Dosing Weight 63.636 kg, Total Volume: 1,000, Start date: 04/06/20 16:26:00 CDT, Duration: 30 day, Stop date: 05/06/20 16:25:00 FORMULA BOTTLER, 1.74, m2, 0 normal 2019-06 No 1,000 mL, Memori a saline 0.9% 0-14 Rate: 100 l IV 1,000 mL 21:26: ml/hr, Herm vin 00 Infuse over: 10 hr, Route: IV, Dosing Weight 63.636 kg, Total Volume: 1,000, Start date: 04/06/20 16:26:00 CDT, Duration: 30 day, Stop date: 05/06/20 16:25:00 FORMULA BOTTLER, 1.74, m2, 0 heparin 2019-06 No Notes: Memoria 0-14 porcine l 21:00: heparin [place] 00 heparin 2019-06 No Notes: Memoria 0-14 porcine l 21:00: heparin Talon 00 heparin 2019-06 No Notes: Memoria 0-14 porcine l 21:00: heparin [place] 00 heparin 2019-06 No Notes: Memoria 0-14 porcine l 21:00: heparin [place] 00 heparin 2019-06 No Notes: Memoria 0-14 porcine l 21:00: heparin [place] 00 heparin 2019-06 No Notes: Memoria 0-14 porcine l 21:00: heparin [place] 00 heparin 2019-06 No Notes: Memoria 0-14 porcine l 21:00: heparin [place] 00 heparin 2019-06 No Route: IV, Anthony litzy (ANES) 0-14 Drug form: l 20:08: INJ, ONCE, [place] 00 Stop date: 04/06/20 15:08:00 CDT heparin 2019-06 No Route: IV, Anthony litzy (ANES) 0-14 Drug form: l 20:08: INJ, ONCE, [place] 00 Stop date: 04/06/20 15:08:00 CDT heparin [...] ONCE, Stop date: 04/06/20 14:48:00 CDT ePHEDrine 2020 No Route: IV, Me [...] (ANES) 0-14 Drug form: l 19:38: SOLN, [place] 00 ONCE, Stop date: 04/06/20 14:38:00 CDT fentaNYL 2019-06 No Route: IV, Mem oria (ANES) 0-14 Drug form: l 19:38: INJ, ONCE, [place] 00 Stop date: 04/06/20 14:38:00 CDT Amidate 2020 No Route: IV, Anthony litzy (ANES) 0-14 Drug form: l 19:38: INJ, ONCE, [place] 00 Stop date: 04/06/20 14:38:00 CDT midazolam [...] (ANES) 0-14 Drug form: l 19:38: SOLN, [place] 00 ONCE, Stop date: 04/06/20 14:38:00 CDT fentaNYL 2019-06 No Route: IV, Mem oria (ANES) 0-14 Drug form: l 19:38: INJ, ONCE, [place] 00 Stop date: 04/06/20 14:38:00 CDT Amidate [...] ONCE, Stop date: 04/06/20 14:38:00 CDT Amidate 2020 No Route: IV, Anthony litzy (ANES) 0-14 Drug form: l 19:38: INJ, ONCE, Talon 00 Stop date: 04/06/20 14:38:00 CDT midazolam 2019-06 No Route: IV, Me moria (ANES) 0-14 Drug form: l 19:38: SOLN, [place] ONCE, Stop date: 04/06/20 14:38:00 CDT fentaNYL 2019-06 No Route: IV, Mem oria (ANES) 0-14 Drug form: l 19:38: INJ, ONCE, Stop date: 04/06/20 14:38:00 CDT Amidate 2019-06 No Route: IV, Anthony litzy (ANES) 0-14 Drug form: l 19:38: INJ, ONCE, Stop date: 04/06/20 14:38:00 CDT midazolam 2019-06 No Route: IV, Me moria (ANES) 0-14 Drug form: l 19:38: SOLN, [place] 00 ONCE, Stop date: 04/06/20 14:38:00 CDT fentaNYL 2019-06 No Route: IV, Mem oria (ANES) 0-14 Drug form: l 19:38: INJ, ONCE, Stop date: 04/06/20 14:38:00 CDT Amidate 2019-06 No Route: IV, Anthony litzy (ANES) 0-14 Drug form: l 19:38: INJ, ONCE, Stop date: 04/06/20 14:38:00 CDT midazolam 2019-06 No Route: IV, Me moria (ANES) 0-14 Drug form: l 19:38: SOLN, [place] 00 ONCE, Stop date: 04/06/20 14:38:00 CDT fentaNYL 2019-06 No Route: IV, Mem oria (ANES) 0-14 Drug form: l 19:38: INJ, ONCE, Stop date: 04/06/20 14:38:00 CDT Amidate 2019-06 No Route: IV, Anthony litzy (ANES) 0-14 Drug form: l 19:38: INJ, ONCE, Stop date: 04/06/20 14:38:00 CDT ceFAZolin 2020 No Route: IV, Me [...] ONCE, Stop date: 04/06/20 14:27:00 CDT vancomycin 2020 No Route: IV, M emoria (ANES) 1000 0-14 Drug form: l mg 18:31: INJ, Start date: 04/06/20 13:31:00 CDT, Stop date: 04/06/20 14:31:00 CDT vancomycin 2020 No Route: IV, M emoria (ANES) 1000 [...] Duration: 30 day, Stop date: 05/06/20 11:46:00 FORMULA BOTTLER, 1.74, m2 Sodium 2019-06 No 500 ml, Memoria Chloride 0-14 Rate: 25 l 0.9% IV 500 16:47: ml/hr, Herm vin ml 00 Infuse over: 20 hr, Route: IV, Dosing Weight 63.636 kg, Total Volume: 500, Start date: 04/06/20 11:47:00 CDT, Duration: 30 day, Stop date: 05/06/20 11:46:00 FORMULA BOTTLER, 1.74, m2 Sodium 2020-1 No 500 ml, Memoria Chloride 0-14 Rate: 25 l 0.9% IV 500 16:47: ml/hr, Herm vin ml 00 Infuse over: 20 hr, Route: IV, Dosing Weight 63.636 kg, Total Volume: 500, Start date: 04/06/20 11:47:00 CDT, Duration: 30 day, Stop date: 05/06/20 11:46:00 FORMULA BOTTLER, 1.74, m2 Sodium 2020-1 No 500 ml, Memoria Chloride 0-14 Rate: 25 l 0.9% IV 500 16:47: ml/hr, Herm vin ml 00 Infuse over: 20 hr, Route: IV, Dosing Weight 63.636 kg, Total Volume: 500, Start date: 04/06/20 11:47:00 CDT, Duration: 30 day, Stop date: 05/06/20 11:46:00 FORMULA BOTTLER, 1.74, m2 Sodium 2019- No 500 ml, Memoria Chloride 0-14 Rate: 25 l 0.9% IV 500 16:47: ml/hr, Herm vin ml 00 Infuse over: 20 hr, Route: IV, Dosing Weight 63.636 kg, Total Volume: 500, Start date: 04/06/20 11:47:00 CDT, Duration: 30 day, Stop date: 05/06/20 11:46:00 FORMULA BOTTLER, 1.74, m2 Sodium 2019-1 No 500 ml, Memoria Chloride 0-14 Rate: 25 l 0.9% IV 500 16:47: ml/hr, Herm vin ml 00 Infuse over: 20 hr, Route: IV, Dosing Weight 63.636 kg, Total Volume: 500, Start date: 04/06/20 11:47:00 CDT, Duration: 30 day, Stop date: 05/06/20 11:46:00 FORMULA BOTTLER, 1.74, m2 Sodium 2020-1 No 500 ml, Memoria Chloride 0-14 Rate: 25 l 0.9% IV 500 16:47: ml/hr, Herm vin ml 00 Infuse over: 20 hr, Route: IV, Dosing Weight 63.636 kg, Total Volume: 500, Start date: 04/06/20 11:47:00 CDT, Duration: 30 day, Stop date: 05/06/20 11:46:00 FORMULA BOTTLER, 1.74, m2 Tylenol 2020-1 No 650 mg, Memoria 0-14 Route: PO, l 15:33: Drug form: [place] 00 TAB, ONCE, Dosing Weight 63.636, kg, [...] 0-14 Route: PO, l 15:33: Drug form: [place] 00 TAB, ONCE, Dosing Weight 63.636, kg, PRN Pain Score 1-3, Start date: 04/06/20 10:33:00 CDT Tylenol 2020-1 No 650 mg, Memoria 0-14 Route: PO, l 15:33: Drug form: [place] 00 TAB, ONCE, Dosing Weight 63.636, kg, PRN Pain Score 1-3, Start date: 04/06/20 10:33:00 CDT Tylenol 2020-1 No 650 mg, Memoria 0-14 Route: PO, l 15:33: Drug form: [place] 00 TAB, ONCE, Dosing Weight 63.636, kg, PRN Pain Score 1-3, Start date: 04/06/20 10:33:00 CDT Allopurinol 2019-06 No Notes: Anthony litzy 0-14 (Same as: l 14:00: Zyloprim) [place] Aspirin 81 2019-06 No Notes: Do Me [...] Duration: 30 day, Stop date: 05/05/20 9:00:00 FORMULA BOTTLER Triiodothyr 2019-06 No Notes: Anthony litzy onine [...] 0-14 Give with l 14:00: food. "Do [place] 00 Not Crush" Allopurinol 2019-06 No Notes: Anthony litzy 0-14 (Same as: l 14:00: Zyloprim) Talon 00 Aspirin 81 2019-06 No Notes: Do Me moria MG Enteric 0-14 not crush l Coated 14:00: or chew. [place] Tablet 00 (Same As: Ecotrin) Clonidine 2019-06 No Notes: Memori a Hydrochlori 0-14 (Same As: l de 0.3 MG 14:00: Catapres) Her cardenas Oral Tablet 00 ferrous 2019-06 No 256 mg, Memoria gluconate 0-14 Route: PO, l 14:00: Drug form: [place] 00 TAB, Daily, Dosing Weight 63.636, kg, Start date: 04/06/20 9:00:00 CDT, Duration: 30 day, Stop date: 05/05/20 9:00:00 FORMULA BOTTLER Triiodothyr 2019-06 No Notes: Anthony litzy onine 0-14 (Same as: l 14:00: Cytomel) [place] 00 24 HR 2019-06 No Notes: Memoria [...] not crush l Coated 14:00: or chew. [place] Tablet 00 (Same As: Ecotrin) Clonidine 2019-06 No Notes: Memori a Hydrochlori 0-14 (Same As: l de 0.3 MG 14:00: Catapres) Her cardenas Oral Tablet 00 ferrous 2019-06 No 256 mg, Memoria gluconate 0-14 Route: PO, l 14:00: Drug form: [place] 00 TAB, Daily, Dosing Weight 63.636, kg, Start date: 04/06/20 9:00:00 CDT, Duration: 30 day, Stop date: 05/05/20 9:00:00 FORMULA BOTTLER Triiodothyr 2019-06 No Notes: Anthony litzy onine 0-14 (Same as: l 14:00: Cytomel) [place] 00 24 HR 2019-06 No Notes: Memoria Metoprolol 0-14 (Same as: l Tartrate 25 14:00: Toprol XL) Talon MG Extended 00 Do Not Release Crush Tablet [Toprol] paricalcito 2019-06 No Notes: Anthony litzy l 0.001 MG 0-14 (Same as: l Oral 14:00: Zemplar) [place] Capsule 00 ferrous 2019-06 No Notes: Memoria sulfate 0-14 Give with l 14:00: food. "Do [place] 00 Not Crush" Allopurinol 2019-06 No Notes: Anthony litzy 0-14 (Same as: l 14:00: Zyloprim) [place] 00 Aspirin 81 2019-06 No Notes: Do Me moria MG Enteric 0-14 not crush l Coated 14:00: or chew. [place] Tablet 00 (Same As: Ecotrin) Clonidine 2019-06 No Notes: Memori a Hydrochlori 0-14 (Same As: l de 0.3 MG 14:00: Catapres) Her cardenas Oral Tablet 00 ferrous 2019-06 No 256 mg, Memoria gluconate 0-14 Route: PO, l 14:00: Drug form: [place] 00 TAB, Daily, Dosing Weight 63.636, kg, Start date: 04/06/20 9:00:00 CDT, Duration: 30 day, Stop date: 05/05/20 9:00:00 FORMULA BOTTLER Triiodothyr 2019-06 No Notes: Anthony litzy onine [...] not crush l Coated 14:00: or chew. [place] Tablet 00 (Same As: Ecotrin) Clonidine 2019-06 No Notes: Memori a Hydrochlori 0-14 (Same As: l de 0.3 MG 14:00: Catapres) Her cardenas Oral Tablet 00 ferrous 2019-06 No 256 mg, Memoria gluconate 0-14 Route: PO, l 14:00: Drug form: [place] 00 TAB, Daily, Dosing Weight 63.636, kg, Start date: 04/06/20 9:00:00 CDT, Duration: 30 day, Stop date: 05/05/20 9:00:00 FORMULA BOTTLER Triiodothyr 2019-06 No Notes: Anthony litzy onine 0-14 (Same as: l 14:00: Cytomel) Talon 00 24 HR 2019-06 No Notes: Memoria Metoprolol 0-14 (Same as: l Tartrate 25 14:00: Toprol XL) Talon MG Extended 00 Do Not Release Crush Tablet [Toprol] paricalcito 2019-06 No Notes: Anthony litzy l 0.001 MG 0-14 (Same as: l Oral 14:00: Zemplar) [place] Capsule 00 ferrous 2019-06 No Notes: Memoria sulfate 0-14 Give with l 14:00: food. "Do [place] 00 Not Crush" Allopurinol 2019-06 No Notes: Anthony litzy 0-14 (Same as: l 14:00: Zyloprim) [place] 00 Aspirin 81 2019-06 No Notes: Do [...] Duration: 30 day, Stop date: 05/05/20 9:00:00 FORMULA BOTTLER Triiodothyr 2019-06 No Notes: Anthony litzy onine 0-14 (Same as: l 14:00: Cytomel) [place] 00 24 HR 2019-06 No Notes: Memoria Metoprolol 0-14 (Same as: l Tartrate 25 14:00: Toprol XL) [place] MG Extended 00 Do Not Release Crush Tablet [Toprol] paricalcito 2019-06 No Notes: Anthony litzy l 0.001 MG 0-14 (Same as: l Oral 14:00: Zemplar) [place] Capsule 00 ferrous 2019-06 No Notes: Memoria sulfate 0-14 Give with l 14:00: food. "Do [place] 00 Not Crush" Allopurinol 2019-06 No Notes: [...] Duration: 30 day, Stop date: 05/05/20 9:00:00 FORMULA BOTTLER Triiodothyr 2019-06 No Notes: Anthony litzy onine [...] a 0-14 Take 1 l 11:30: hour [place] 00 before or 2 hours after meal; [...] a 0-14 Take 1 l 11:30: hour [place] 00 before or 2 hours after meal; Enteral feeds may interefere with the absorption of this medication .(Same as:Levothr oid, Synthroid) Thyroxine 2019-06 No Notes: Memori a 0-14 Take 1 l 11:30: hour [place] 00 before or 2 hours after meal; Enteral feeds may interefere with the absorption of this medication .(Same as:Levothr oid, Synthroid) Thyroxine 2019-06 No Notes: Memori a 0-14 Take 1 l 11:30: hour [place] 00 before or 2 hours after meal; Enteral feeds may interefere with the absorption of this medication .(Same as:Levothr oid, Synthroid) Thyroxine 2019-06 No Notes: Memori a 0-14 Take 1 l 11:30: hour [place] 00 before or 2 hours after meal; [...] litzy 0-14 (Same as: l 03:03: Apresoline [place] 00 ) Push over 5 minutes Benzocaine 2019-06 No Notes: Memor ia 15 MG / 0-14 Same as: l Menthol 3.6 03:03: Cepacol Her cardenas MG Lozenge 00 [Cepacol Sore Throat Pain Relief 15/3.6] Tessalon 2019-06 No Notes: Memoria Perles 0-14 (Same As: l 03:03: Tessalon [place] 00 Perles) "Do Not Crush" tizanidine 2019-06 [...] Perles 0-14 (Same As: l 03:03: Tessalon [place] 00 Perles) "Do Not Crush" tizanidine 2019-06 No Notes: Memor ia 0-14 (Same As: l 03:03: Zanaflex) [place] 00 Hydralazine 2019-06 No Notes: Anthony litzy [...] ia 0-14 (Same As: l 03:03: Zanaflex) [place] Hydralazine 2019-06 No Notes: Anthony litzy 0-14 (Same as: l 03:03: Apresoline [place] ) Push over 5 minutes Benzocaine 2019-06 No Notes: Memor ia 15 MG / 0-14 Same as: l Menthol 3.6 03:03: Cepacol Her cardenas MG Lozenge 00 [Cepacol Sore Throat Pain Relief 15/3.6] Tessalon 2019-06 No Notes: Memoria Perles 0-14 (Same As: l 03:03: Tessalon [place] Perles) "Do Not Crush" tizanidine 2019-06 No Notes: Memor ia 0-14 (Same As: l 03:03: Zanaflex) [place] Hydralazine 2019-06 No Notes: Anthony litzy 0-14 (Same as: l 03:03: Apresoline [place] ) Push over 5 minutes Benzocaine 2019-06 No Notes: Memor ia 15 MG / 0-14 Same as: l Menthol 3.6 03:03: Cepacol Her cardenas MG Lozenge 00 [Cepacol Sore Throat Pain Relief 15/3.6] Tessalon 2019-06 No Notes: Memoria Perles 0-14 (Same As: l 03:03: Tessalon [place] Perles) "Do Not Crush" tizanidine 2019-06 No Notes: Memor ia 0-14 (Same As: l 03:03: Zanaflex) [place] Hydralazine 2019-06 No Notes: Anthony litzy 0-14 (Same as: l 03:03: Apresoline [place] ) Push over 5 minutes Benzocaine 2019-06 [...] litzy 0-14 (Same as: l 03:03: Apresoline [place] 00 ) Push over 5 minutes Benzocaine 2019-06 No Notes: Memor ia 15 MG / 0-14 Same as: l Menthol 3.6 03:03: Cepacol Her cardenas MG Lozenge 00 [Cepacol Sore Throat Pain Relief 15/3.6] Tessalon 2019-06 No Notes: Memoria Perles 0-14 (Same As: l 03:03: Tessalon [place] Perles) "Do Not Crush" tizanidine 2019-06 No Notes: Memor ia 0-14 (Same As: l 03:03: Zanaflex) [place] Acetaminoph 2019-06 No Notes: Anthony litzy en 325 MG / 0-14 (Same as: l Hydrocodone 01:40: [place] Maribell nn Bitartrate 00 325/5) Do 5 MG Oral not exceed Tablet 4gm/day of [[place] acetaminop 5/325] hen. Acetaminoph 2019-06 No Notes: Anthony litzy en 325 MG / 0-14 (Same as: l Hydrocodone 01:40: [place] Maribell nn Bitartrate 00 325/5) Do 5 MG Oral not exceed Tablet 4gm/day of [[place] acetaminop 5/325] hen. Acetaminoph 2019-06 No Notes: Anthony litzy en 325 MG / 0-14 (Same as: l Hydrocodone 01:40: [place] Maribell nn Bitartrate 00 325/5) Do 5 MG Oral not exceed Tablet 4gm/day of [[place] acetaminop 5/325] hen. Acetaminoph 2019-06 No Notes: Anthony litzy en 325 MG / 0-14 (Same as: l Hydrocodone 01:40: [place] Maribell nn Bitartrate 00 325/5) Do 5 MG Oral not exceed Tablet 4gm/day of [[place] acetaminop 5/325] hen. Acetaminoph 2019-06 No Notes: Anthony litzy en 325 MG / 0-14 (Same as: l Hydrocodone 01:40: [place] Maribell nn Bitartrate 00 325/5) Do 5 MG Oral not exceed Tablet 4gm/day of [[place] acetaminop 5/325] hen. Acetaminoph 2019-06 No Notes: Anthony litzy en 325 MG / 0-14 (Same as: l Hydrocodone 01:40: [place] Maribell nn Bitartrate 00 325/5) Do 5 MG Oral not exceed Tablet 4gm/day of [[place] acetaminop 5/325] hen. Acetaminoph 2019-06 No Notes: Anthony litzy en 325 MG / 0-14 (Same as: l Hydrocodone 01:40: [place] Maribell nn Bitartrate 00 325/5) Do 5 MG Oral not exceed Tablet 4gm/day of [[place] acetaminop 5/325] hen. Dextrose 2019-06 No 12.5 gm, Memor ia 50% Syringe 0-14 25 mL, l (D50W) 01:39: Route: [place] 00 IVP, Drug Form: INJ, Dosing Weight 63.636, kg, PRN, PRN Blood Glucose Results, Start date: 04/05/20 20:39:00 CDT, Duration: 30 day, Stop date: 05/05/20 19:38:00 FORMULA BOTTLER, 0 Glucagon 2019-06 No 1 mg, Memoria 0-14 Route: IM, l 01:39: Drug form: [place] 00 PDR/INJ, PRN, Dosing Weight 63.636, kg, PRN Blood Glucose Results, Start date: 04/05/20 20:39:00 CDT, Duration: 30 day, Stop date: 05/05/20 19:38:00 FORMULA BOTTLER, 0 Docusate 2019-06 No Notes: Memoria 0-14 (Same as: l 01:39: Colace) (Do Not Crush) Ondansetron 2019-06 No Notes: Anthony litzy 0-14 (Same as: l 01:39: Zofran) [place] 00 MEDICATION WASTE Product Size: 4 mg [...] Duration: 30 day, Stop date: 05/05/20 19:38:00 FORMULA BOTTLER, 0 Glucagon 2019-06 No 1 mg, Memoria 0-14 Route: IM, l 01:39: Drug form: [place] PDR/INJ, PRN, Dosing Weight 63.636, kg, PRN Blood Glucose Results, Start date: 04/05/20 20:39:00 CDT, Duration: 30 day, Stop date: 05/05/20 19:38:00 FORMULA BOTTLER, 0 Docusate 2019-06 No Notes: Memoria 0-14 [...] 0-14 25 mL, l (D50W) 01:39: Route: [place] 00 IVP, Drug Form: INJ, Dosing Weight 63.636, kg, PRN, PRN Blood Glucose Results, Start date: 04/05/20 20:39:00 CDT, Duration: 30 day, Stop date: 05/05/20 19:38:00 FORMULA BOTTLER, 0 Glucagon 2019-06 No 1 mg, Memoria 0-14 Route: IM, l 01:39: Drug form: [place] 00 PDR/INJ, PRN, Dosing Weight 63.636, kg, PRN Blood Glucose Results, Start date: 04/05/20 20:39:00 CDT, Duration: 30 day, Stop date: 05/05/20 19:38:00 FORMULA BOTTLER, 0 Docusate 2019-06 No Notes: Memoria 0-14 (Same as: l 01:39: Colace) [place] 00 (Do Not Crush) Ondansetron 2019-06 No Notes: Anthony litzy 0-14 (Same as: l 01:39: Zofran) [place] 00 MEDICATION WASTE Product Size: 4 mg Product Wasted: ___ mg Melatonin 2019-06 No Notes: Memori a 0-14 (Same as: l 01:39: Melatonin) Acetaminoph 2019-06 No Notes: Do M emoria en 0-14 not exceed l 01:39: 4 gm/day. [place] (Same as: Tylenol) Dextrose 2019-06 No 12.5 gm, Memor ia 50% Syringe 0-14 25 mL, l (D50W) 01:39: Route: [place] 00 IVP, Drug Form: INJ, Dosing Weight 63.636, kg, PRN, PRN Blood Glucose Results, Start date: 04/05/20 20:39:00 CDT, Duration: 30 day, Stop date: 05/05/20 19:38:00 FORMULA BOTTLER, 0 Glucagon 2019-06 No 1 mg, Memoria 0-14 Route: IM, l 01:39: Drug form: [place] 00 PDR/INJ, PRN, Dosing Weight 63.636, kg, PRN Blood Glucose Results, Start date: 04/05/20 20:39:00 CDT, Duration: 30 day, Stop date: 05/05/20 19:38:00 FORMULA BOTTLER, 0 Docusate 2019-06 No Notes: Memoria 0-14 (Same as: l 01:39: Colace) [place] (Do Not Crush) Ondansetron 2019-06 No Notes: [...] 0-14 25 mL, l (D50W) 01:39: Route: [place] 00 IVP, Drug Form: INJ, Dosing Weight 63.636, kg, PRN, PRN Blood Glucose Results, Start date: 04/05/20 20:39:00 CDT, Duration: 30 day, Stop date: 05/05/20 19:38:00 FORMULA BOTTLER, 0 Glucagon 2019-06 No 1 mg, Memoria 0-14 Route: IM, l 01:39: Drug form: [place] PDR/INJ, PRN, Dosing Weight 63.636, kg, PRN Blood Glucose Results, Start date: 04/05/20 20:39:00 CDT, Duration: 30 day, Stop date: 05/05/20 19:38:00 FORMULA BOTTLER, 0 Docusate 2019-06 No Notes: Memoria 0-14 [...] Duration: 30 day, Stop date: 05/05/20 19:38:00 FORMULA BOTTLER, 0 Glucagon 2019- No 1 mg, Memoria 0-14 Route: IM, l 01:39: Drug form: [place] PDR/INJ, PRN, Dosing Weight 63.636, kg, PRN Blood Glucose Results, Start date: 04/05/20 20:39:00 CDT, Duration: 30 day, Stop date: 05/05/20 19:38:00 FORMULA BOTTLER, 0 Docusate 2019-06 No Notes: Memoria 0-14 [...] 0-14 not exceed l 01:39: 4 gm/day. [place] 00 (Same as: Tylenol) Dextrose 2019-06 No 12.5 gm, Memor ia 50% Syringe 0-14 25 mL, l (D50W) 01:39: Route: IVP, Drug Form: INJ, Dosing Weight 63.636, kg, PRN, PRN Blood Glucose Results, Start date: 04/05/20 20:39:00 CDT, Duration: 30 day, Stop date: 05/05/20 19:38:00 FORMULA BOTTLER, 0 Glucagon 2019-06 No 1 mg, Memoria 0-14 Route: IM, l 01:39: Drug form: [place] 00 PDR/INJ, PRN, Dosing Weight 63.636, kg, PRN Blood Glucose Results, Start date: 04/05/20 20:39:00 CDT, Duration: 30 day, Stop date: 05/05/20 19:38:00 FORMULA BOTTLER, 0 Docusate 2019-06 No Notes: Memoria 0-14 (Same as: l 01:39: Colace) [place] 00 (Do Not Crush) Ondansetron 2019- No Notes: Anthony litzy 0-14 (Same as: [...] HCl 0.2 mg 1-16 tablet 00:00: 00 levothyroxi 2020-0 No 1mcg [...] Zemplar 1 2020-0 No 1mcg mcg capsule 07 00:00: 00 clonidine 2020-0 No 1mg HCl [...] PO, l oral tablet 17:26: Bedtime, # [place] 00 30 tab, 0 Refill(s) atorvastati 2019-0 Yes 40 mg = 1 M emoria n 40 mg 7-28 tab, PO, l oral tablet 17:26: Bedtime, # [place] 00 30 tab, 0 Refill(s) atorvastati 2019-0 Yes 40 mg = 1 M emoria n 40 mg 7-28 tab, PO, l oral tablet 17:26: Bedtime, # [place] 00 30 tab, 0 Refill(s) atorvastati 2019-0 Yes 40 mg = 1 M emoria n 40 mg 7-28 tab, PO, l oral tablet 17:26: Bedtime, # [place] 00 30 tab, 0 Refill(s) atorvastati 2019-0 Yes 40 mg = 1 M emoria n 40 mg 7-28 tab, PO, l oral tablet 17:26: Bedtime, # [place] 00 30 tab, 0 Refill(s) atorvastati 2019-0 Yes 40 mg = 1 M emoria n 40 mg 7-28 tab, PO, l oral tablet 17:26: Bedtime, # [place] 00 30 tab, 0 Refill(s) atorvastati 2019- Yes 40 mg = 1 M emoria n 40 mg 7-28 tab, PO, l oral tablet 17:26: Bedtime, # [place] 00 30 tab, 0 Refill(s) Aspirin 81 2019-0 Yes 81 mg = 1 Me moria MG Enteric 7-28 tab, PO, l Coated 17:21: Daily, # [place] Tablet 00 90 tab, 3 Refill(s) Aspirin 81 2019- Yes 81 mg = 1 Me moria MG Enteric 7-28 tab, PO, l Coated 17:21: Daily, # [place] Tablet 00 90 tab, 3 Refill(s) Aspirin 81 2019- Yes 81 mg = 1 Me moria MG Enteric 7-28 tab, PO, l Coated 17:21: Daily, # [place] Tablet 00 90 tab, 3 Refill(s) Aspirin 81 2019- Yes 81 mg = 1 Me moria MG Enteric 7-28 tab, PO, l Coated 17:21: Daily, # [place] Tablet 00 90 tab, 3 Refill(s) Aspirin 81 2019- Yes 81 mg = 1 Me moria MG Enteric 7-28 tab, PO, l Coated 17:21: Daily, # [place] Tablet 00 90 tab, 3 Refill(s) Aspirin [...] tongue, # 10 tab, 0 Refill(s) Ondansetron 2019- Yes 4 mg = 1 Me moria 4 MG 7-28 tab, PO, l Disintegrat 17:07: BID, PRN He rmann ing Tablet 00 Nausea and [Zofran] Vomiting, Dissolve tab under tongue, # 10 tab, 0 Refill(s) Ondansetron 2019- Yes 4 mg = [...] tab, PO, Memoria en 300 MG / 01-18 Q6H, PRN l Codeine 17:05: Pain, X 7 Mar[place] nn Phosphate 00 day, # 28 30 MG Oral tab, 0 Tablet Refill(s) [Tylenol with Codeine #3] Docusate Yes 1 tab, PO, Mem oria Sodium 50 - BID, X 10 l MG / 17:05: day, # 20 [place] sennosides, 00 tab, 0 SENIOR CARE 8.6 MG Refill(s) Oral Tablet metoprolol Yes 25 mg = 1 Me moria 25 mg oral -28 tab, PO, l tablet, 17:05: Daily, # [place] n extended 00 30 tab, 0 release Refill(s) Acetaminoph 0 Yes 1 tab, PO, Memoria en 300 MG / 7-28 Q6H, PRN l Codeine 17:05: Pain, X 7 [place] nn Phosphate 00 day, # 28 30 MG Oral tab, 0 Tablet Refill(s) [Tylenol with Codeine #3] Docusate Yes 1 tab, PO, Mem oria Sodium 50 7-28 BID, X 10 l MG / 17:05: day, # 20 [place] sennosides, 00 tab, 0 SENIOR CARE 8.6 MG Refill(s) Oral Tablet metoprolol Yes [...] # 20 [place] sennosides, 00 tab, 0 SENIOR CARE 8.6 MG Refill(s) Oral Tablet metoprolol Yes 25 mg = 1 Me moria 25 mg oral 7-28 tab, PO, l tablet, 17:05: Daily, # [place]enan n extended 00 30 tab, 0 release Refill(s) Acetaminoph 0 Yes 1 tab, PO, Memoria en 300 MG / 728 Q6H, PRN l Codeine 17:05: Pain, X 7 [place] nn Phosphate 00 day, # 28 30 MG Oral tab, 0 Tablet Refill(s) [Tylenol with Codeine #3] Docusate Yes 1 tab, PO, Mem oria Sodium 50 7-28 BID, X 10 l MG / 17:05: day, # 20 [place] sennosides, 00 tab, 0 SENIOR CARE 8.6 MG Refill(s) Oral Tablet metoprolol Yes [...] # 20 [place] sennosides, 00 tab, 0 SENIOR CARE 8.6 MG Refill(s) Oral Tablet metoprolol Yes [...] # 20 [place] sennosides, 00 tab, 0 SENIOR CARE 8.6 MG Refill(s) Oral Tablet metoprolol Yes [...] l MG / 17:05: day, # 20 [place] sennosides, 00 tab, 0 SENIOR CARE 8.6 MG Refill(s) Oral Tablet metoprolol 2019-0 Yes 25 mg = 1 Me moria [...] 00 metoprolol No Notes: Memor ia extended 7- (Same as: l release 17:00: Toprol XL) [...] Crush metoprolol No Notes: Memor ia extended 7- (Same as: l release 17:00: Toprol XL) Herm vin Do Not Crush metoprolol 2018- No Notes: Memor ia extended - (Same as: l release 17:00: Toprol XL) Herm vin Do Not Crush Ondansetron 2018- No Notes: Anthony litzy 7- (Same as: l 16:09: Zofran) [place] 00 MEDICATION WASTE Product Size: 4 mg Product Wasted: ___ mg Ondansetron No Notes: Anthony litzy 7- (Same as: l 16:09: Zofran) [place] 00 MEDICATION WASTE Product Size: 4 mg Product Wasted: ___ mg Ondansetron 2018- No Notes: Anthony litzy 7- (Same as: l 16:09: Zofran) [place] 00 MEDICATION WASTE Product Size: 4 mg Product Wasted: ___ mg Ondansetron 2018- No Notes: Anthony litzy 7- (Same as: l 16:09: Zofran) [place] 00 MEDICATION WASTE Product Size: 4 mg Product Wasted: ___ mg Ondansetron 2018- No Notes: Anthony litzy - (Same as: l 16:09: Zofran) [place] 00 MEDICATION WASTE Product Size: 4 mg Product Wasted: ___ mg Ondansetron 2018- No Notes: Anthony litzy 7- (Same as: l 16:09: Zofran) [place] 00 MEDICATION WASTE Product Size: 4 mg Product Wasted: ___ mg Ondansetron 2018- No Notes: Anthony litzy 7- (Same as: l 16:09: Zofran) [place] 00 MEDICATION WASTE Product Size: 4 mg Product Wasted: ___ mg Reglan 2018- No Notes: Memoria 01-17 (Same as: l 15:31: Reglan) [place] 00 Hydralazine 2018- No Notes: Anthony litzy 01-17 (Same as: l 15:31: Apresoline [place] ) Push over 5 minutes Reglan 2019-0 No Notes: Memoria 7-27 (Same as: l 15:31: Reglan) [place] 00 Hydralazine No Notes: Anthony litzy 7-27 (Same as: l 15:31: Apresoline [place] ) Push over 5 minutes Reglan 0 No Notes: Memoria 7-27 (Same as: l 15:31: Reglan) [place] 00 Hydralazine No Notes: Anthony litzy 7-27 (Same as: l 15:31: Apresoline [place] ) Push over 5 minutes Reglan No Notes: Memoria 7-27 (Same as: l 15:31: Reglan) [place] 00 Hydralazine No Notes: Anthony litzy 7-27 (Same as: l 15:31: Apresoline [place] ) Push over 5 minutes Reglan No Notes: Memoria 7-27 (Same as: l 15:31: Reglan) [place] 00 Hydralazine No Notes: Anthony litzy 7-27 (Same as: l 15:31: Apresoline [place] ) Push over 5 minutes Reglan No Notes: Memoria 7-27 (Same as: l 15:31: Reglan) [place] 00 Hydralazine No Notes: Anthony litzy 7-27 (Same as: l 15:31: Apresoline [place] ) Push over 5 minutes Reglan No Notes: Memoria 7-27 (Same as: l 15:31: Reglan) [place] 00 Hydralazine No Notes: Anthony litzy 7-27 (Same as: l 15:31: Apresoline [place] ) Push over 5 minutes Allopurinol No Notes: Anthony litzy 7-27 (Same as: l 14:00: Zyloprim) [place] 00 ferrous No 256 mg, Memoria gluconate 01-17 Route: PO, l 14:00: Drug form: [place] 00 TAB, Daily, Dosing Weight 62.358, kg, Start date: 01/17/19 9:00:00 CDT, Duration: 30 day, Stop date: 02/15/19 9:00:00 CDT Docusate No Notes: Memoria Sodium 50 7-27 (Same as l MG / 14:00: Senokot-S) [place] sennosides, 00 Equiv. to SENIOR CARE 8.6 MG Zoraida-Colac Oral Tablet e. ferrous [...] (Same as l MG / 14:00: Senokot-S) [place] sennosides, 00 Equiv. to SENIOR CARE 8.6 MG Zoraida-Colac Oral Tablet e. ferrous No Notes: Memoria sulfate 7-27 Give with l 14:00: food. "Do Not Crush" paricalcito No Notes: Anthony litzy l 0.001 MG 7-27 (Same as: l Oral 14:00: Zemplar) [place] Capsule Nifedical No Notes: Memori a XL [...] 7-27 Route: PO, l 14:00: Drug form: [place] 00 TAB, Daily, Dosing Weight 62.358, kg, Start date: 01/17/19 9:00:00 CDT, Duration: 30 day, Stop date: 02/15/19 9:00:00 CDT Docusate No Notes: Memoria Sodium 50 7-27 (Same as l MG / 14:00: Senokot-S) sennosides, 00 Equiv. to SENIOR CARE 8.6 MG Zoraida-Colac Oral Tablet e. ferrous No Notes: Memoria sulfate 7-27 Give with l 14:00: food. "Do Not Crush" paricalcito No Notes: Anthony litzy l 0.001 MG 7-27 (Same as: l Oral 14:00: Zemplar) Capsule 00 Nifedical No Notes: Memori a XL 7-27 (Same as: l 14:00: Adalat CC, [place] Procardia XL) Give on empty stomach. Take [...] (Same as l MG / 14:00: Senokot-S) [place] sennosides, 00 Equiv. to SENIOR CARE 8.6 MG Zoraida-Colac Oral Tablet e. ferrous No Notes: Memoria sulfate 7-27 Give with l 14:00: food. "Do Not Crush" paricalcito No Notes: Anthony litzy l 0.001 MG 7-27 (Same as: l Oral 14:00: Zemplar) [place] Capsule Nifedical No Notes: Memori a XL 7-27 (Same as: l 14:00: Adalat CC, [place] 00 Procardia XL) Give on empty stomach. Take 1 hour before or 2 hours after meal; "Avoid grapefruit and grapefruit juice". Do not crush Nephro-Flash No Notes: Anthony litzy Rx 7- (Same as: l 14:00: Nephro-Vit [place] 00 e Rx and Diatx) Give with food. Allopurinol No Notes: Anthony litzy 7-27 (Same as: l 14:00: Zyloprim) ferrous No 256 mg, Memoria gluconate 7-27 Route: PO, l 14:00: Drug form: [place] 00 TAB, Daily, Dosing Weight 62.358, kg, Start date: 01/17/19 9:00:00 CDT, Duration: 30 day, Stop date: 02/15/19 9:00:00 CDT Docusate No Notes: Memoria Sodium 50 7-27 (Same as l MG / 14:00: Senokot-S) [place] sennosides, 00 Equiv. to SENIOR CARE 8.6 MG Zoraida-Colac Oral Tablet e. ferrous No Notes: Memoria sulfate 7-27 Give with l 14:00: food. "Do Not Crush" paricalcito No Notes: Anthony litzy l 0.001 MG 7-27 (Same as: l Oral 14:00: Zemplar) [place] Capsule 00 Nifedical No Notes: Memori a XL 7-27 (Same as: l 14:00: Adalat CC, [place] Procardia XL) Give on empty stomach. Take [...] / 14:00: Senokot-S) sennosides, 00 Equiv. to SENIOR CARE 8.6 MG Zoraida-Colac Oral Tablet e. ferrous No Notes: Memoria sulfate 7-27 Give with l 14:00: food. "Do Not Crush" paricalcito No Notes: Anthony litzy l 0.001 MG 7-27 (Same as: l Oral 14:00: Zemplar) [place] Capsule Nifedical No Notes: Memori a XL 7-27 (Same as: l 14:00: Adalat CC, [place] 00 Procardia XL) Give on empty stomach. Take 1 hour before or 2 hours after meal; "Avoid grapefruit and grapefruit juice". Do not crush Nephro-Flash No Notes: Anthony litzy Rx 7-27 (Same as: l 14:00: Nephro-Vit [place] 00 e Rx and Diatx) Give with food. Allopurinol No Notes: Anthony litzy 7-27 (Same as: l 14:00: Zyloprim) [place] 00 ferrous No 256 mg, Memoria gluconate 7-27 Route: PO, l 14:00: Drug form: [place] 00 TAB, Daily, Dosing Weight 62.358, kg, Start date: 01/17/19 9:00:00 CDT, Duration: 30 day, Stop date: 02/15/19 9:00:00 CDT Docusate No Notes: Memoria Sodium 50 7-27 (Same as l MG / 14:00: Senokot-S) sennosides, 00 Equiv. to SENIOR CARE 8.6 MG Zoraida-Colac Oral Tablet e. ferrous No Notes: Memoria sulfate 7-27 Give with l 14:00: food. "Do [place] 00 Not Crush" paricalcito No Notes: Anthony litzy l 0.001 MG -27 (Same as: l Oral 14:00: Zemplar) [place] Capsule 00 Nifedical No Notes: Memori a XL 7-27 (Same as: l 14:00: Adalat CC, [place] Procardia XL) Give on empty stomach. Take 1 hour before or 2 hours after meal; "Avoid grapefruit and grapefruit juice". Do not crush Nephro-Flash No Notes: Anthony litzy Rx - (Same as: l 14:00: Nephro-Vit [place] 00 e Rx and Diatx) Give with [...] onine 7-27 (Same as: l 11:30: Cytomel) [place] Thyroxine No Notes: Memori a 7-27 Take 1 l 11:30: hour [place] 00 before or 2 hours after meal; Enteral feeds may interefere with the absorption of this medication .(Same as:Levothr oid, Synthroid) Triiodothyr No Notes: Anthony litzy onine 7-27 (Same as: l 11:30: Cytomel) Thyroxine No Notes: Memori a 7-27 Take 1 l 11:30: hour [place] 00 before or 2 hours after meal; Enteral feeds may interefere with the absorption of this medication .(Same as:Levothr oid, Synthroid) Triiodothyr No Notes: Anthony litzy onine 7-27 (Same as: l 11:30: Cytomel) Thyroxine No Notes: Memori a 7-27 Take 1 l 11:30: hour [place] 00 before or 2 hours after meal; [...] onine 7-27 (Same as: l 11:30: Cytomel) [place] Thyroxine No Notes: Memori a 7-27 Take 1 l 11:30: hour [place] 00 before or 2 hours after meal; Enteral feeds may interefere with the absorption of this medication .(Same as:Levothr oid, Synthroid) Triiodothyr No Notes: Anthony litzy onine 7-27 (Same as: l 11:30: Cytomel) Thyroxine No Notes: Memori a 7-27 Take 1 l 11:30: hour [place] 00 before or 2 hours after meal; Enteral feeds may interefere with the absorption of this medication .(Same as:Levothr oid, Synthroid) heparin No Notes: Memoria 7-27 porcine l 06:00: heparin heparin No Notes: Memoria 7-27 porcine l 06:00: heparin heparin No Notes: Memoria 7-27 porcine l 06:00: heparin heparin No Notes: Memoria 7-27 porcine l 06:00: heparin [place] 00 heparin No Notes: Memoria 01-17 porcine l 06:00: heparin [place] heparin No Notes: Memoria 01-17 porcine l 06:00: heparin [place] heparin No Notes: Memoria 01-17 porcine l 06:00: heparin [place] atorvastati No Notes: Anthony litzy n 01-17 (Same as: l 02:00: Lipitor) [place] atorvastati No Notes: Anthony litzy n 01-17 (Same as: l 02:00: Lipitor) [place] 00 atorvastati No Notes: Anthony litzy n 01-17 (Same as: l 02:00: Lipitor) [place] atorvastati No Notes: Anthony litzy n 01-17 (Same as: l 02:00: Lipitor) [place] 00 atorvastati No Notes: Anthony litzy n 01-17 (Same as: l 02:00: Lipitor) [place] atorvastati No Notes: Anthony litzy n 01-17 (Same as: l 02:00: Lipitor) [place] atorvastati No Notes: Anthony litzy n 01-17 (Same as: l 02:00: Lipitor) [place] Acetaminoph No Notes: Anthony litzy en 325 MG / 01-17 (Same as: l Hydrocodone 00:40: [place] Maribell nn Bitartrate 00 325/5) Do 5 MG Oral not exceed Tablet 4gm/day of [[place] acetaminop 5/325] hen. Acetaminoph No Notes: Anthony litzy en 325 MG / 01-17 (Same as: l Hydrocodone 00:40: [place] Maribell nn Bitartrate 00 325/5) Do 5 MG Oral not exceed Tablet 4gm/day of [[place] acetaminop 5/325] hen. Acetaminoph No Notes: Anthony litzy en 325 MG / 01-17 (Same as: l Hydrocodone 00:40: [place] Maribell nn Bitartrate 00 325/5) Do 5 MG Oral not exceed Tablet 4gm/day of [[place] acetaminop 5/325] hen. Acetaminoph No Notes: Anthony litzy en 325 MG / 01-17 (Same as: l Hydrocodone 00:40: [place] nn Bitartrate 00 325/5) Do 5 MG Oral not exceed Tablet 4gm/day of [[place] acetaminop 5/325] hen. Acetaminoph No Notes: Anthony litzy en 325 MG / 01-17 (Same as: l Hydrocodone 00:40: [place] nn Bitartrate 00 325/5) Do 5 MG Oral not exceed Tablet 4gm/day of [[place] acetaminop 5/325] hen. Acetaminoph No Notes: Anthony litzy en 325 MG / 01-17 (Same as: l Hydrocodone 00:40: [place] nn Bitartrate 00 325/5) Do 5 MG Oral not exceed Tablet 4gm/day of [[place] acetaminop 5/325] hen. Acetaminoph No Notes: Anthony litzy en 325 MG / 01-17 (Same as: l Hydrocodone 00:40: [place] nn Bitartrate 00 325/5) Do 5 MG Oral not exceed Tablet 4gm/day of [[place] acetaminop 5/325] hen. Acetaminoph No 2 tab, Anthony litzy en 325 MG / 01-17 Route: PO, l Hydrocodone 00:36: Dosing [facility] vin Bitartrate 00 Weight 5 MG Oral 62.358, Tablet kg, Q4H, [[place] STAT, 5/325] Start date: 01/16/19 19:36:00 CDT, Duration: 30 day, Stop date: 02/15/19 16:00:00 CDT Acetaminoph No 2 tab, Anthony litzy en 325 MG / 01-17 Route: PO, l Hydrocodone 00:36: Dosing [facility] Bitartrate 00 Weight 5 MG Oral 62.358, Tablet kg, Q4H, [[place] STAT, 5/325] Start date: 01/16/19 19:36:00 CDT, Duration: 30 day, Stop date: 02/15/19 16:00:00 CDT Acetaminoph No 2 tab, Anthony litzy en 325 MG / 01-17 Route: PO, l Hydrocodone 00:36: Dosing [facility] Bitartrate 00 Weight 5 MG Oral 62.358, Tablet kg, Q4H, [[place] STAT, 5/325] Start date: 01/16/19 19:36:00 CDT, Duration: 30 day, Stop date: 02/15/19 16:00:00 CDT Acetaminoph 2018-0 No 2 tab, Anthony litzy en 325 MG / 01-17 Route: PO, l Hydrocodone 00:36: Dosing Herm vin Bitartrate 00 Weight 5 MG Oral 62.358, Tablet kg, Q4H, [[facility], 5/325] Start date: 01/16/19 19:36:00 CDT, Duration: 30 day, Stop date: 02/15/19 16:00:00 CDT Acetaminoph 2018-0 No 2 tab, Anthony litzy en 325 MG / 01-17 Route: PO, l Hydrocodone 00:36: Dosing Herm vin Bitartrate 00 Weight 5 MG Oral 62.358, Tablet kg, Q4H, [[facility], 5/325] Start date: 01/16/19 19:36:00 CDT, Duration: 30 day, Stop date: 02/15/19 16:00:00 CDT Acetaminoph 2018-0 No 2 tab, Anthony litzy en 325 MG / 01-17 Route: PO, l Hydrocodone 00:36: Dosing Herm vin Bitartrate 00 Weight 5 MG Oral 62.358, Tablet kg, Q4H, [[facility], 5/325] Start date: 01/16/19 19:36:00 CDT, Duration: 30 day, Stop date: 02/15/19 16:00:00 CDT Acetaminoph 2018-0 No 2 tab, Anthony litzy en 325 MG / 01-17 Route: PO, l Hydrocodone 00:36: Dosing Herm vin Bitartrate 00 Weight 5 MG Oral 62.358, Tablet kg, Q4H, [[facility], 5/325] Start date: 01/16/19 19:36:00 CDT, Duration: 30 day, Stop date: 02/15/19 16:00:00 CDT Milk of 2019-0 No Notes: Memoria Magnesia - (Same as: l 23:23: Milk of [place] 00 Magnesia, MOM) Milk of No Notes: Memoria Magnesia 7-26 (Same as: l 23:23: Milk of [place] 00 Magnesia, MOM) Milk of No Notes: Memoria Magnesia 7-26 (Same as: l 23:23: Milk of [place] 00 Magnesia, MOM) Milk of No Notes: Memoria Magnesia 7-26 (Same as: l 23:23: Milk of [place] 00 Magnesia, MOM) Milk of No Notes: Memoria Magnesia 7-26 (Same as: l 23:23: Milk of [place] 00 Magnesia, MOM) Milk of No Notes: Memoria Magnesia 7-26 (Same as: l 23:23: Milk of [place] 00 Magnesia, MOM) Milk of No Notes: Memoria Magnesia 7-26 (Same as: l 23:23: Milk of [place] 00 Magnesia, MOM) Aspirin 81 No Notes: [...] MG/ML 7-26 (Same l Oral 22:23: as:Chronul [place] Solution 00 ac) Morphine No Notes: Memoria 7-26 (Same l 22:23: as:MORPhin [place] 00 e Sulfate) Lactulose No Notes: Memori a 667 MG/ML 7-26 (Same l Oral 22:23: as:Chronul [place] Solution 00 ac) Morphine No Notes: Memoria 7-26 (Same l 22:23: as:MORPhin [place] 00 e Sulfate) Lactulose No Notes: Memori a 667 MG/ML 7-26 (Same l Oral 22:23: as:Chronul [place] Solution 00 ac) Morphine No Notes: Memoria 7-26 (Same l 22:23: as:MORPhin [place] 00 e Sulfate) Lactulose No Notes: Memori a 667 MG/ML 7-26 (Same l Oral 22:23: as:Chronul [place] Solution 00 ac) Morphine No Notes: Memoria 7-26 (Same l 22:23: as:MORPhin [place] 00 e Sulfate) Lactulose No Notes: Memori a 667 MG/ML 7-26 (Same l Oral 22:23: as:Chronul [place] Solution 00 ac) Morphine No Notes: Memoria 7-26 (Same l 22:23: as:MORPhin [place] 00 e Sulfate) Metoprolol No Notes: Memor ia 7-26 (Same as: l 22:16: Lopressor) [place] 00 Push over 2 minutes Metoprolol No Notes: Memor ia 7-26 (Same as: l 22:16: Lopressor) [place] 00 Push over 2 minutes Metoprolol 0 No Notes: Memor ia 7-26 (Same as: l 22:16: Lopressor) Talon 00 Push over 2 minutes Metoprolol 0 No Notes: Memor ia 7-26 (Same as: l 22:16: Lopressor) [place] 00 Push over 2 minutes Metoprolol 0 No Notes: Memor ia 7-26 (Same as: l 22:16: Lopressor) [place] 00 Push over 2 minutes Metoprolol 0 No Notes: Memor ia 7-26 (Same as: l 22:16: Lopressor) [place] 00 Push over 2 minutes Metoprolol 0 No Notes: Memor ia 7-26 (Same as: l 22:16: Lopressor) [place] 00 Push over 2 minutes Epogen No Notes: Memoria 7-26 (Same as: l 22:00: Procrit) Talon 00 [...] Memoria 01-16 (Same as: l 22:00: Procrit) [place] 00 epoetin jennifer 4000 unit/1 ml VL For dialysis only. (Epogen) WASTE: F/P - Red; E -Red MEDICATION WASTE Product Size: 4000 unit Product Wasted: ___ unit Hydralazine No Notes: Anthony litzy Hydrochlori 01-16 (Same as: l de 100 MG 22:00: Apresoline He rmann Oral Tablet 00 ) May interfere w/enteral feedings Take With Food Epogen No Notes: Memoria 7 (Same as: l 22:00: Procrit) Talon 00 [...] moria e 01-16 Route: l 17:59: IVPB, [place] 00 ONCE, Dosing Weight 62.358, kg, PRN Nausea & Vomiting, Start date: 01/16/19 12:59:00 CDT Naloxone No 0.1 mg, Memori a 01-16 Route: l 17:59: SUB-Q, [place] 00 Q6H, Dosing Weight 62.358, kg, PRN Itching, Start date: 01/16/19 12:59:00 CDT, Duration: 30 day, Stop date: 02/15/19 12:58:00 CDT Meperidine 2019-0 No 12.5 mg, Mem oria 01-16 Route: l 17:59: IVP, [place] 00 Q30Min, Dosing Weight 62.358, kg, PRN [...] 50 Memoria 01-16 microgram, l 17:59: Route: [place] 00 IVP, Q5Min, Dosing Weight 62.358, kg, [...] Anthony litzy 01-16 Route: l 17:59: IVP, [place] 00 Q20Min, Dosing Weight 62.358, kg, PRN [...] Memori a 01-16 Route: l 17:59: SUB-Q, [place] 00 Q6H, Dosing Weight 62.358, kg, PRN Itching, Start date: 01/16/19 12:59:00 CDT, Duration: 30 day, Stop date: 02/15/19 12:58:00 CDT Meperidine 2019-0 No 12.5 mg, Mem oria 01-16 Route: l 17:59: IVP, 00 Q30Min, Dosing Weight 62.358, kg, PRN [...] MG/ML 01-16 Route: l Inhalant 17:59: NEB, [place] Solution 00 Q20Min, Dosing Weight 62.358, kg, [...] 50 Memoria 01-16 microgram, l 17:59: Route: [place] 00 IVP, Q5Min, Dosing Weight 62.358, kg, [...] 01-16 Route: PO, l 17:59: Drug form: [place] 00 TAB, ONCE, Dosing Weight 62.358, kg, [...] Memori a 01-16 Route: l 17:59: IVP, [place] 00 Q5Min, Dosing Weight 62.358, kg, PRN Elevated BP, Start date: 01/16/19 12:59:00 CDT, Duration: 5 doses or times, Stop date: Limited # of times Promethazin 2019-0 No 6.25 mg, Me moria e 01-16 Route: l 17:59: IVPB, [place] 00 ONCE, Dosing Weight 62.358, kg, PRN Nausea & Vomiting, Start date: 01/16/19 12:59:00 CDT Naloxone 2019-0 No 0.1 mg, Memori a 01-16 Route: l 17:59: SUB-Q, [place] 00 Q6H, Dosing Weight 62.358, kg, PRN Itching, Start date: 01/16/19 12:59:00 CDT, Duration: 30 day, Stop date: 02/15/19 12:58:00 CDT Meperidine 2019-0 No 12.5 mg, Mem oria 01-16 Route: l 17:59: IVP, [place] 00 Q30Min, Dosing Weight 62.358, kg, PRN [...] litzy 01-16 Route: l 17:59: IVP, PRN, [place] 00 Dosing Weight 62.358, kg, PRN Benzodiaze pine Reversal, Initial dose, Start date: 01/16/19 12:59:00 CDT, Duration: 30 day, Stop date: 02/15/19 12:58:00 CDT Fentanyl 2019-0 No 50 Memoria 01-16 microgram, l 17:59: Route: [place] 00 IVP, Q5Min, Dosing Weight 62.358, kg, [...] MG/ML 01-16 Route: l Inhalant 17:59: NEB, [place] Solution 00 Q20Min, Dosing Weight 62.358, kg, PRN Wheezing, Priority: Routine, Start date: 01/16/19 12:59:00 CDT, Duration: 30 day, Stop date: 02/15/19 12:58:00 CDT Acetaminoph 2019-0 No 1,000 mg, M emoria en 01-16 Route: PO, l 17:59: Drug form: [place] 00 TAB, ONCE, Dosing Weight 62.358, kg, PRN Pain Score 1-3, Start date: 01/16/19 12:59:00 CDT Hydralazine 2019-0 No 10 mg, Anthony litzy 01-16 Route: l 17:59: IVP, [place] 00 Q20Min, Dosing Weight 62.358, kg, PRN [...] Memori a 01-16 Route: l 17:59: SUB-Q, [place] 00 Q6H, Dosing Weight 62.358, kg, PRN Itching, Start date: 01/16/19 12:59:00 CDT, Duration: 30 day, Stop date: 02/15/19 12:58:00 CDT Meperidine 2019-0 No 12.5 mg, Mem oria 01-16 Route: l 17:59: IVP, [place] 00 Q30Min, Dosing Weight 62.358, kg, PRN Other -See Comment, For shivering, Start date: 01/16/19 12:59:00 CDT, Duration: 2 doses or times, Stop date: Limited # of times Ondansetron 2019-0 No 4 mg, Memor ia 01-16 Route: l 17:59: IVP, ONCE, [place] 00 Dosing Weight 62.358, kg, PRN Nausea [...] 01-16 Route: PO, l 17:59: Drug form: [place] 00 TAB, ONCE, Dosing Weight 62.358, kg, PRN Pain Score 1-3, Start date: 01/16/19 12:59:00 CDT Hydralazine 2019-0 No 10 mg, Anthony litzy 01-16 Route: l 17:59: IVP, [place] 00 Q20Min, Dosing Weight 62.358, kg, PRN Elevated BP, Start date: 01/16/19 12:59:00 CDT, Duration: 2 doses or times, Stop date: Limited # of times Labetalol 2019-0 No 10 mg, Memori a 01-16 Route: l 17:59: IVP, [place] 00 Q5Min, Dosing Weight 62.358, kg, PRN [...] Memori a 01-16 Route: l 17:59: SUB-Q, [place] 00 Q6H, Dosing Weight 62.358, kg, PRN Itching, Start date: 01/16/19 12:59:00 CDT, Duration: 30 day, Stop date: 02/15/19 12:58:00 CDT Meperidine 2019-0 No 12.5 mg, Mem oria 01-16 Route: l 17:59: IVP, [place] 00 Q30Min, Dosing Weight 62.358, kg, PRN Other -See Comment, For shivering, Start date: 01/16/19 12:59:00 CDT, Duration: 2 doses or times, Stop date: Limited # of times Ondansetron 2019-0 No 4 mg, Memor ia 01-16 Route: l 17:59: IVP, ONCE, [place] 00 Dosing Weight 62.358, kg, PRN Nausea [...] mine 01-16 Route: l 17:59: IVP, Drug [place] 00 form: INJ, Q6H, Dosing Weight 62.358, [...] 01-16 Route: PO, l 17:59: Drug form: [place] 00 TAB, ONCE, Dosing Weight 62.358, kg, PRN Pain Score 1-3, Start date: 01/16/19 12:59:00 CDT Hydralazine 2019-0 No 10 mg, Anthony litzy 01-16 Route: l 17:59: IVP, [place] 00 Q20Min, Dosing Weight 62.358, kg, PRN [...] moria e 01-16 Route: l 17:59: IVPB, [place] ONCE, Dosing Weight 62.358, kg, PRN Nausea [...] mine 01-16 Route: l 17:59: IVP, Drug [place] 00 form: INJ, Q6H, Dosing Weight 62.358, kg, PRN Itching, Start date: 01/16/19 12:59:00 CDT, Duration: 30 day, Stop date: 02/15/19 12:58:00 CDT Albuterol 2019-0 No 2.49 mg, Anthony litzy 0.83 MG/ML 01-16 Route: l Inhalant 17:59: NEB, [place] Solution 00 Q20Min, Dosing Weight 62.358, kg, [...] Anthony litzy 01-16 Route: l 17:59: IVP, [place] 00 Q20Min, Dosing Weight 62.358, kg, PRN [...] 01-16 Drug form: l 17:45: INJ, ONCE, [place] 00 Stop date: 01/16/19 12:45:00 CDT Dextrose No Route: IV, Mem oria 50% in 01-16 Stop date: l Water IV 17:45: 01/16/19 Maribell nn (ANES) 00 12:45:00 CDT phenylephri No Route: IV, Memoria ne (ANES) 01-16 Drug form: l 17:45: INJ, ONCE, [place] 00 Stop date: 01/16/19 12:45:00 CDT esmolol No [...] [place] 00 Stop date: 01/16/19 12:45:00 CDT esmolol 0 [...] [place] 00 Stop date: 01/16/19 12:45:00 CDT esmolol 0 [...] 00 Stop date: 01/16/19 12:45:00 CDT Dextrose 2018-0 [...] ONCE, Stop date: 01/16/19 12:43:00 CDT EPINEPHrine 2018-0 No Route: IV, Memoria (ANES) 01-16 Drug form: l 17:43: INJ, ONCE, [place] 00 Stop date: 01/16/19 12:43:00 CDT EPINEPHrine 2018-0 No Route: IV, Memoria (ANES) 01-16 Drug form: l 17:43: INJ, ONCE, Stop date: 01/16/19 12:43:00 CDT EPINEPHrine 2018-0 No Route: IV, Memoria (ANES) 01-16 Drug form: l 17:43: INJ, ONCE, Stop date: 01/16/19 12:43:00 CDT EPINEPHrine 2018-0 No Route: IV, Memoria (ANES) 01-16 Drug form: l 17:43: INJ, ONCE, [place] 00 Stop date: 01/16/19 12:43:00 CDT EPINEPHrine 2018-0 No Route: IV, Memoria (ANES) 01-16 Drug form: l 17:43: INJ, ONCE, [place] 00 Stop date: 01/16/19 12:43:00 CDT EPINEPHrine 2018-0 No Route: IV, Memoria (ANES) 01-16 Drug form: l 17:43: INJ, ONCE, Talon Stop date: 01/16/19 12:43:00 CDT calcium 2018-0 No Route: IV, Anthony litzy chloride 01-16 Drug form: l (ANES) 17:33: INJ, ONCE, Maribell Stop date: 01/16/19 12:33:00 CDT calcium 2018-0 No Route: IV, Anthony litzy chloride - Drug form: l (ANES) 17:33: INJ, ONCE, Maribell Stop date: 01/16/19 12:33:00 CDT calcium No Route: IV, Anthony litzy chloride - Drug form: l (ANES) 17:33: INJ, ONCE, Maribell Stop date: 01/16/19 12:33:00 CDT calcium No Route: IV, Anthony litzy chloride - Drug form: l (ANES) 17:33: INJ, ONCE, Maribell Stop date: 01/16/19 12:33:00 CDT calcium No Route: IV, Anthony litzy chloride - Drug form: l (ANES) 17:33: INJ, ONCE, Maribell Stop date: 01/16/19 12:33:00 CDT calcium No Route: IV, Anthony litzy chloride - Drug form: l (ANES) 17:33: INJ, ONCE, Maribell Stop date: 01/16/19 12:33:00 CDT calcium No Route: IV, Anthony litzy chloride - Drug form: l (ANES) 17:33: INJ, ONCE, Maribell Stop date: 01/16/19 12:33:00 CDT propofol 0 [...] ONCE, Stop date: 01/16/19 11:42:00 CDT ceFAZolin 0 No Route: IV, Me moria (ANES) [...] ONCE, Stop date: 01/16/19 11:37:00 CDT fentaNYL No Route: IV, Mem oria (ANES) 01-16 Drug form: l 16:37: INJ, ONCE, Stop date: 01/16/19 11:37:00 CDT fentaNYL No Route: IV, Mem oria (ANES) 01-16 Drug form: l 16:37: INJ, ONCE, Stop date: 01/16/19 11:37:00 CDT fentaNYL No Route: IV, Mem oria (ANES) 01-16 Drug form: l 16:37: INJ, ONCE, Stop date: 01/16/19 11:37:00 CDT fentaNYL No Route: IV, Mem oria [...] CDT, Stop date: 01/16/19 11:50:00 CDT vancomycin 2019-0 No Route: IV, Keerthi perezria (ANES) 1000 01-16 Drug form: l mg 15:50: INJ, Start date: 01/16/19 10:50:00 CDT, Stop date: 01/16/19 11:50:00 CDT vancomycin 2019-0 No Route: IV, Keerthi perezria (ANES) 1000 01-16 Drug form: l mg 15:50: INJ, Start date: 01/16/19 10:50:00 CDT, Stop date: 01/16/19 11:50:00 CDT vancomycin 2019-0 No Route: IV, Keerthi perezria (ANES) 1000 01-16 Drug form: l mg 15:50: INJ, Start date: 01/16/19 10:50:00 CDT, Stop date: 01/16/19 11:50:00 CDT Sodium 2019-0 No Route: IV, Memor ia Chloride 7-26 Total l 0.9% IV 15:46: Volume: [place] (ANES) 1000 00 1,000, mL Start date: [...] 7-26 Total l 0.9% IV 15:46: Volume: [place] (ANES) 1000 00 1,000, mL Start date: 01/16/19 10:46:00 CDT, Stop date: 01/16/19 11:46:00 CDT Sodium 2019-0 No Route: IV, Memor ia Chloride 7-26 Total l 0.9% IV 15:46: Volume: [place] (ANES) 1000 00 1,000, mL Start date: [...] regular 01-16 Route: IV, l 15:40: ONCE, [place] 00 Dosing Weight 62.358, kg, Start date: 01/16/19 10:40:00 CDT, Stop date: 01/16/19 10:40:00 CDT Insulin 2019-0 No 5 unit, Memoria regular 01-16 Route: IV, l 15:40: ONCE, [place] 00 Dosing Weight 62.358, kg, Start date: 01/16/19 10:40:00 CDT, Stop date: 01/16/19 10:40:00 CDT Dextrose 2019-0 No 12.5 gm, Memor ia 01-16 Route: l 15:39: IVPB, [place] 00 ONCE, Dosing Weight 62.358, kg, Start date: 01/16/19 10:39:00 CDT, Stop date: 01/16/19 10:39:00 CDT Dextrose 2019-0 No 12.5 gm, Memor ia 01-16 Route: l 15:39: IVPB, [place] 00 ONCE, Dosing Weight 62.358, kg, Start date: 01/16/19 10:39:00 CDT, Stop date: 01/16/19 10:39:00 CDT Dextrose 2019-0 No 12.5 gm, Memor ia 01-16 Route: l 15:39: IVPB, [place] 00 ONCE, Dosing Weight 62.358, kg, Start date: 01/16/19 10:39:00 CDT, Stop date: 01/16/19 10:39:00 CDT Dextrose 2019-0 No 12.5 gm, Memor ia 01-16 Route: l 15:39: IVPB, [place] 00 ONCE, Dosing Weight 62.358, kg, Start date: 01/16/19 10:39:00 CDT, Stop date: 01/16/19 10:39:00 CDT Dextrose 2019-0 No 12.5 gm, Memor ia 01-16 Route: l 15:39: IVPB, [place] 00 ONCE, Dosing Weight 62.358, kg, Start date: 01/16/19 10:39:00 CDT, Stop date: 01/16/19 10:39:00 CDT Dextrose 2019-0 No 12.5 gm, Memor ia 7-26 Route: l 15:39: IVPB, [place] 00 ONCE, Dosing Weight 62.358, kg, Start date: 01/16/19 10:39:00 CDT, Stop date: 01/16/19 10:39:00 CDT Dextrose 2019-0 No 12.5 gm, Memor ia 7-26 Route: l 15:39: IVPB, [place] 00 ONCE, Dosing Weight 62.358, kg, Start date: 01/16/19 10:39:00 CDT, Stop date: 01/16/19 10:39:00 CDT Calcium 2019-0 No 1,000 mL, Memor ia Chloride 7-26 Rate: 25 l 0.0014 13:46: ml/hr, [place] MEQ/ML / 00 Infuse Potassium over: 40 Chloride hr, Route: 0.004 IV, Dosing MEQ/ML / Weight Sodium 62.358 kg, Chloride Total 0.103 Volume: MEQ/ML / 1,000, Sodium Start Lactate date: 0.028 01/16/19 MEQ/ML 8:46:00 Injectable CDT, Solution Duration: 1 day, Stop date: 01/17/19 8:45:00 CDT, 1.68, m2, 0 Sodium 2019-0 No 1,000 mL, Memori a Chloride 7- Rate: 25 l 0.9% IV 13:46: ml/hr, [...] 7-26 Rate: 25 l 0.0014 13:46: ml/hr, [place] MEQ/ML / 00 Infuse Potassium over: 40 [...] 7-26 Rate: 25 l 0.0014 13:46: ml/hr, [place] MEQ/ML / 00 Infuse Potassium over: 40 [...] 7-26 Rate: 25 l 0.0014 13:46: ml/hr, [place] MEQ/ML / 00 Infuse Potassium over: 40 [...] Rate: 25 l 0.9% IV 13:46: ml/hr, [place] 1,000 mL 00 Infuse over: 40 hr, [...] monthly, 0 Memoria 7-25 Refill(s) l 18:31: [place] 00 Vitamin B12 2019-0 Yes monthly, 0 Memoria 7-25 Refill(s) l 18:31: [place] 00 Vitamin B12 2019-0 Yes monthly, 0 Memoria 7-25 Refill(s) l 18:31: [place] 00 Vitamin B12 2019- Yes monthly, 0 Memoria 7-25 Refill(s) l 18:31: Vitamin B12 2019-0 Yes monthly, 0 Memoria 7-25 Refill(s) l 18:31: Vitamin B12 2019-0 Yes monthly, 0 Memoria 7-25 Refill(s) l 18:31: allopurinol 2019 Yes 100 mg = 1 Memoria 100 mg oral 7-25 tab, PO, l tablet 18:30: Daily, # [place] 00 90 tab, 1 Refill(s) Aspirin 81 2019 Yes 81 mg = 1 Me moria MG Chewable 7-25 tab, PO, l Tablet 18:30: Daily, [place] 00 tab, 0 Refill(s) 24 HR 2019 No 30 mg = 1 Memoria Nifedipine 7-25 tab, PO, l 30 MG 18:30: Daily, # [place] Extended 30 tab, 0 Release Refill(s) Tablet [Nifedical] allopurinol Yes 100 mg = 1 Memoria 100 mg oral 7-25 tab, PO, l tablet 18:30: Daily, # [place] 00 90 tab, 1 Refill(s) Aspirin 81 2019 Yes 81 mg = 1 Me moria MG Chewable 7-25 tab, PO, l Tablet 18:30: Daily, [place] 00 tab, 0 Refill(s) 24 HR 2019 No 30 mg = 1 Memoria Nifedipine 7-25 tab, PO, l 30 MG 18:30: Daily, # [place] Extended 00 30 tab, 0 Release Refill(s) Tablet [Nifedical] allopurinol 2019 Yes 100 mg = 1 Memoria 100 mg oral 7-25 tab, PO, l tablet 18:30: Daily, # [place] 00 90 tab, 1 Refill(s) Aspirin 81 2019-0 Yes 81 mg = 1 Me moria MG Chewable 7-25 tab, PO, l Tablet 18:30: Daily, [place] 00 tab, 0 Refill(s) 24 HR 2019 No 30 mg = 1 Memoria Nifedipine 7-25 tab, PO, l 30 MG 18:30: Daily, # [place] Extended 00 30 tab, 0 Release Refill(s) Tablet [Nifedical] allopurinol 2019-0 Yes 100 mg = 1 Memoria 100 mg oral 7-25 tab, PO, l tablet 18:30: Daily, # [place] 00 90 tab, 1 Refill(s) Aspirin 81 2019-0 Yes 81 mg = 1 Me moria MG Chewable 7-25 tab, PO, l Tablet 18:30: Daily, [place] 00 tab, 0 Refill(s) 24 HR 2019-0 No 30 mg = 1 Memoria Nifedipine 7-25 tab, PO, l 30 MG 18:30: Daily, # [place] Extended 00 30 tab, 0 Release Refill(s) Tablet [Nifedical] Aspirin 81 2019- Yes 81 mg = 1 Me moria MG Chewable 7-25 tab, PO, l Tablet 18:30: Daily, [place] 00 tab, 0 Refill(s) 24 HR 2019- No 30 mg = 1 Memoria Nifedipine 7-25 tab, PO, l 30 MG 18:30: Daily, # [place] Extended 00 30 tab, 0 Release Refill(s) Tablet [Nifedical] allopurinol 2019 Yes 100 mg = 1 Memoria 100 mg oral 7-25 tab, PO, l tablet 18:30: Daily, # [place] 00 90 tab, 1 Refill(s) Aspirin 81 2019 Yes 81 mg = 1 Me moria MG Chewable 7-25 tab, PO, l Tablet 18:30: Daily, [place] 00 tab, 0 Refill(s) 24 HR 20190 [...] 7-25 tab, PO, l Tablet 18:30: Daily, [place] 00 tab, 0 Refill(s) 24 [place] [address] No 30 mg = 1 Memoria Nifedipine 7-25 tab, PO, l 30 MG 18:30: Daily, # [place] Extended 00 30 tab, 0 Release Refill(s) Tablet [Nifedical] allopurinol 2019 Yes 100 mg = 1 Memoria 100 mg oral 7-25 tab, PO, l tablet 18:30: Daily, # [place] 00 90 tab, 1 Refill(s) paricalcito Yes 1 Memori a l 0.001 MG 7-25 microgram l Oral 18:29: = 1 cap, [place] Capsule 00 PO, Daily, # 30 cap, [...] microgram l Oral 18:29: = 1 cap, [place] Capsule 00 PO, Daily, # 30 cap, [...] microgram l Oral 18:29: = 1 cap, [place] Capsule 00 PO, Daily, # 30 cap, 0 Refill(s) levothyroxi Yes 50 Memori a ne 50 mcg 7-25 microgram l (0.05 mg) 18:29: = 1 tab, Herm vin oral tablet 00 PO, Daily, # 30 tab, 0 Refill(s) paricalcito Yes 1 Memori a l 0.001 MG 7-25 microgram l Oral 18:29: = 1 cap, [place] Capsule 00 PO, Daily, # 30 cap, [...] vin iron) oral 00 Refill(s) tablet liothyronin 2019 Yes 5 Memori a e 5 mcg 7-25 microgram l oral tablet 18:28: = 1 tab, He rmann 00 PO, Daily, # 30 tab, 0 Refill(s) Ferate 256 Yes 256 mg = 1 M emoria mg (28 mg 7-25 tab, PO, l elemental 18:28: Daily, 0 Herm vin iron) oral 00 Refill(s) tablet Ferate 256 Yes 256 mg = 1 [...] Daily, # 30 tab, 0 Refill(s) Hydralazine Yes 100 mg = 1 Memoria Hydrochlori 7-25 tab, PO, l de 100 MG 18:27: TID, # 90 Her cardenas Oral Tablet 00 tab, 3 Refill(s) atorvastati Yes 40 mg = 1 M emoria n 40 mg 7-25 tab, PO, l oral tablet 18:27: Bedtime, # [place] 00 30 tab, 0 Refill(s) Hydralazine 2018- Yes 100 mg = 1 Memoria Hydrochlori 7-25 tab, PO, l de 100 MG 18:27: TID, # 90 Her cardenas Oral Tablet 00 tab, 3 Refill(s) atorvastati 2018- Yes 40 mg = 1 M emoria n 40 mg 7-25 tab, PO, l oral tablet 18:27: Bedtime, # [place] 00 30 tab, 0 Refill(s) Hydralazine Yes 100 mg = 1 Memoria Hydrochlori 7-25 tab, PO, l de 100 MG 18:27: TID, # 90 Her cardenas Oral Tablet 00 tab, 3 Refill(s) atorvastati Yes 40 mg = 1 M emoria n 40 mg 7-25 tab, PO, l oral tablet 18:27: Bedtime, # [place] 00 30 tab, 0 Refill(s) Hydralazine Yes [...] PO, l oral tablet 18:27: Bedtime, # [place] 00 30 tab, 0 Refill(s) Hydralazine 2018- Yes 100 mg = 1 Memoria Hydrochlori 7-25 tab, PO, l de 100 MG 18:27: TID, # 90 Her cardenas Oral Tablet 00 tab, 3 Refill(s) atorvastati 2018- Yes 40 mg = 1 M emoria n 40 mg 7-25 tab, PO, l oral tablet 18:27: Bedtime, # [place] 00 30 tab, 0 Refill(s) Hydralazine Yes 100 mg = 1 Memoria Hydrochlori 7-25 tab, PO, l de 100 MG 18:27: TID, # 90 Her cardenas Oral Tablet 00 tab, 3 Refill(s) atorvastati Yes 40 mg = 1 M emoria n 40 mg 7-25 tab, PO, l oral tablet 18:27: Bedtime, # [place] 00 30 tab, 0 Refill(s) Clonidine Yes [...] moria 7-25 infuse l 18:00: over 2.5 [place] 00 hours For adult patients only: Round to nearest 250 mg per Medical Staff approval MEDICATION WASTE Product Size: 1000 mg Product Wasted: ___ mg Ancef + 2019-0 No Notes: Memoria sterile 7-25 (Same As: [...] moria 7-25 infuse l 18:00: over 2.5 [place] 00 hours For adult patients only: Round [...] moria 7-25 infuse l 18:00: over 2.5 [place] 00 hours For adult patients only: Round to nearest 250 mg per Medical Staff approval MEDICATION WASTE Product Size: 1000 mg Product Wasted: ___ mg Ancef + 2019-0 No Notes: Memoria sterile 7-25 (Same As: l water 20 mL 18:00: Ancef, Herm vin Kefzol) MEDICATION WASTE Product Size: 1000 mg Product Wasted: ___ mg Vancomycin 2019-0 No 2001 mg: Me moria 7-25 infuse l 18:00: over 2.5 [place] 00 hours For adult patients only: Round [...] moria 7-25 infuse l 18:00: over 2.5 [place] 00 hours For adult patients only: Round [...] moria 7-25 infuse l 18:00: over 2.5 [place] 00 hours For adult patients only: Round to nearest 250 mg per Medical Staff approval MEDICATION WASTE Product Size: 1000 mg Product Wasted: ___ mg Ancef + 2018- No Notes: [facility] sterile 7-25 (Same As: l water 20 mL 18:00: Ancef, Herm vin 00 Kefzol) MEDICATION WASTE Product Size: 1000 mg Product Wasted: ___ mg cloniDINE 2018- Yes .3mg Take 0.3 Univ ers (CATAPRES) 7-08 mg by ity of 0.3 mg 19:53: mouth 3 [place] tablet 14 (three) Medical times Branch daily. hydralAZINE 2019- Yes 100mg Take 100 U nivers (APRESOLINE [...] mg (27 Branch mg iron) tablet liothyronin 2018 Yes 5ug Take 5 mcg [facility] e [...] ORAL) 19:53: [place] 14 Medical Branch traMADOL Yes 50mg Take 50 mg Uni vers (ULTRAM) 50 7-08 by mouth ity of mg tablet 19:53: every 6 [place] 14 (six) Medical hours as Branch needed. furosemide Yes 40mg Take 40 mg U nivers (LASIX) 40 7-08 by mouth ity o f mg tablet 19:53: [place] needed. [place] 14 [facility] cloniDINE Yes .3mg Take 0.3 Univ ers [...] 14 every Medical tablet morning. Branch paricalcito 2018- Yes 1ug Take 1 mcg Univers l (ZEMPLAR) 7-08 by mouth ity of 1 mcg 14:53: daily. [place] capsule 14 Medical Branch allopurinol 2019-0 Yes 100mg Take 100 U nivers (ZYLOPRIM) 7-08 mg by ity of 100 mg 14:53: mouth [place] tablet 14 daily. Medical Branch ASPIRIN 2019- Yes Take by Univers (ASPIR-81 7-08 mouth. [...] 00 daily. Medical 17 gram Branch powder Immunizations Ordered Filled Immunization Date Status Comments [facility] e Immunization Name Name influenza, seasonal 2022-03-28 Completed vaccine, 00:00:00 quadrivalent, adjuvanted, .5mL dose, preservative-free influenza, seasonal 2022-03-28 Completed vaccine, 00:00:00 quadrivalent, adjuvanted, .5mL dose, preservative-free Moderna COVID-19 2022-01-18 Completed Vaccine 00:00:00 Moderna COVID-19 2022-01-18 Completed Vaccine 00:00:00 Moderna COVID-19 2021-03-13 Completed Vaccine 00:00:00 Moderna COVID-19 2021-03-13 Completed Vaccine 00:00:00 Moderna COVID-19 2020-08-30 Completed Vaccine 00:00:00 Moderna COVID-19 2020-08-30 Completed Vaccine 00:00:00 [id number]-19m 2020-08-27 Completed Memor ial RNA-1273vaxMODERNA< 00:00:00 [place] nn sup>1</sup> [id number]-CmI-[id number]-19m 2020-08-27 Completed Memor ial RNA-1273vaxMODERNA< 00:00:00 [place] nn sup>1</sup> CKWW-HwD-2VQMAM-19m 2020-08-27 Completed Memor ial RNA-1273vaxMODERNA< 00:00:00 [place] nn sup>1</sup> [id number]-ZxW-[id number]-19m 2020-08-27 Completed Mem[facility] ial RNA-1273vaxMODERNA< 00:00:00 [place] nn sup>1</sup> [id number]-IoL-[id number]-19m 2020-08-27 Completed Memor ial RNA-1273vaxMODERNA< 00:00:00 [place] nn sup>1</sup> Pfizer COVID-19 2020-08-01 Completed Vaccine 00:00:00 Pfizer COVID-19 2020-08-01 Completed Vaccine 00:00:00 Influenza, 2018-07-08 Completed seasonal, inj 00:00:00 Influenza, 2018-07-08 Completed seasonal, inj 00:00:00 Influenza, 2016-04-18 Completed seasonal, inj 00:00:00 Influenza, 2016-04-18 Completed seasonal, inj 00:00:00 Influenza, 2014-01-19 Completed seasonal, inj 00:00:00 Influenza, 2014-01-19 Completed seasonal, inj 00:00:00 [id number] Unknown Completed Memor ial RNA-1273vaxMODERNA< Maribell nn sup>1</sup> [id number] Unknown Completed Memor ial RNA-1273vaxMODERNA< Maribell nn sup>1</sup> Vital Signs Vital Name Observation Time Observation Value Comments Source WEIGHT 2020-12-31 20:30:00 58.968 kg HEIGHT 2020-12-27 07:43:00 160 cm WEIGHT 2020-12-27 07:43:00 58.968 kg HEIGHT 2020-12-15 08:54:00 160 cm WEIGHT 2020-12-15 08:54:00 58.968 kg HEIGHT 2021-02-06 01:37:00 160 cm WEIGHT 2021-02-06 01:37:00 62.7 kg Systolic blood 2022-07-12 01:56:00 158 mm[Hg] Univer sity of pressure [facility] Diastolic blood 2022-07-12 01:56:00 64 mm[Hg] Unive rsity of pressure [facility] Heart rate 2022-07-12 01:56:00 72 /min [facility] Respiratory rate 2022-07-12 01:56:00 16 /min [facility] Oxygen saturation in 2022-07-12 01:56:00 100 /min [facility] Arterial blood by [facility] Pulse oximetry Branch Body temperature 2022-07-11 23:43:00 36.83 Torri [facility] Body weight 2022-07-11 23:43:00 65.772 kg [facility] BMI 2022-07-11 23:43:00 25.69 kg/m2 [facility] HEIGHT 2021-02-06 01:37:00 160 cm WEIGHT 2021-02-06 01:37:00 62.7 kg WEIGHT 2020-12-31 20:30:00 58.968 kg HEIGHT 2020-12-27 07:43:00 160 cm WEIGHT 2020-12-27 07:43:00 58.968 kg HEIGHT 2020-12-15 08:54:00 160 cm WEIGHT 2020-12-15 08:54:00 58.968 kg Systolic (mm Hg) 2023-02-21 18:10:00 Anthony rial [facility] Diastolic (mm Hg) 2023-02-21 18:10:00 Mem orial [facility] Heart Rate 2023-02-21 18:10:00 [facility] Systolic (mm Hg) 2023-01-09 16:21:00 Anthony rial [facility] Diastolic (mm Hg) 2023-01-09 16:21:00 Mem [facility] Heart Rate 2023-01-09 16:21:00 [facility] Systolic (mm Hg) 2022-12-07 18:22:00 Anthony rial [facility] Diastolic (mm Hg) 2022-12-07 18:22:00 [facility] Heart Rate 2022-12-07 18:22:00 [facility] BP Systolic 2022-03-28 14:21:00 88 mm[Hg] BP [...] Systolic (mm Hg) 2021-04-28 18:12:00 Anthony rial [facility] Diastolic (mm Hg) 2021-04-28 18:12:00 [facility] Heart Rate 2021-04-28 18:12:00 [facility] Respitory Rate 2021-04-28 18:12:00 [facility] BP Systolic 2021-03-09 11:49:00 143 mm[Hg] BP Diastolic 2021-03-09 11:49:00 71 mm[Hg] Weight Measured 2021-03-09 11:49:00 145.00 pounds Height Measured 2021-03-09 11:49:00 63.00 inches Body Temperature 2021-03-09 11:49:00 97.50 degrees Heart Rate 2021-03-09 11:49:00 58.00 /min Respiratory Rate 2021-03-09 11:49:00 Systolic (mm Hg) 2021-01-31 19:10:00 Anthony rial [facility] Diastolic (mm Hg) 2021-01-31 19:10:00 Mem [facility] Heart Rate 2021-01-31 19:10:00 [facility] Respitory Rate 2021-01-31 19:10:00 [facility] Systolic blood 2021-01-03 15:59:00 149 mm[Hg] [facility] Diastolic blood 2021-01-03 15:59:00 66 mm[Hg] [facility] Heart rate 2021-01-03 15:59:00 60 /min [facility] Body temperature 2021-01-03 15:59:00 36.44 Torri [facility] Respiratory rate 2021-01-03 15:59:00 18 /min [facility] Oxygen saturation in 2021-01-03 15:59:00 100 /min [facility] Arterial blood by Medical Ce [facility]ter Pulse oximetry Body weight 2020-12-31 20:30:00 58.968 kg [facility] BMI 2020-12-31 20:30:00 23.03 kg/m2 [facility] Body height 2020-12-27 07:43:00 160 cm [facility] Systolic (mm Hg) 2020-10-31 14:51:00 Anthony rial [facility] Diastolic (mm Hg) 2020-10-31 14:51:00 Mem [facility] Heart Rate 2020-10-31 14:51:00 [facility] Respitory Rate 2020-10-31 14:51:00 [facility] Height 2020-10-31 14:51:00 160.02 cm [facility] Weight 2020-10-31 14:51:00 [facility] BMI Calculated 2020-10-31 14:51:00 [facility] Systolic (mm Hg) 2020-07-20 19:53:00 Anthony rial [facility] Diastolic (mm Hg) 2020-07-20 19:53:00 [facility] Heart Rate 2020-07-20 19:53:00 [facility] Respitory Rate 2020-07-20 19:53:00 [facility] Height 2020-07-20 19:53:00 160.02 cm [facility] Weight 2020-07-20 19:53:00 [facility] BMI Calculated 2020-07-20 19:53:00 [facility] Systolic (mm Hg) 2020-05-26 20:30:00 Anthony [facility] Diastolic (mm Hg) 2020-05-26 20:30:00 [facility] Systolic (mm Hg) 2020-05-26 20:00:00 Anthony [facility] Diastolic (mm Hg) 2020-05-26 20:00:00 [facility] Respitory Rate 2020-05-26 19:45:00 [facility] Systolic (mm Hg) 2020-05-26 19:45:00 Anthony [facility] Diastolic (mm Hg) 2020-05-26 19:45:00 [facility] Respitory Rate 2020-05-26 19:30:00 [facility] Respitory Rate 2020-05-26 19:15:00 [facility] Height 2020-05-26 15:59:00 160.02 cm [facility] Weight 2020-05-26 15:59:00 [facility] BMI Calculated 2020-05-26 15:59:00 [facility] Height 2020-05-25 21:05:00 160.02 cm [facility] Weight 2020-05-25 21:05:00 [facility] BMI Calculated 2020-05-25 21:05:00 [facility] Respitory Rate 2020-05-17 21:00:00 [facility] Systolic (mm Hg) 2020-05-17 21:00:00 Anthony [facility] Diastolic (mm Hg) 2020-05-17 21:00:00 [facility] Respitory Rate 2020-05-17 20:00:00 [facility] Systolic (mm Hg) 2020-05-17 20:00:00 Anthony rial [facility] Diastolic (mm Hg) 2020-05-17 20:00:00 [facility] Respitory Rate 2020-05-17 19:45:00 [facility] Systolic (mm Hg) 2020-05-17 19:45:00 Anthony [facility] Diastolic (mm Hg) 2020-05-17 19:45:00 [facility] Height 2020-05-17 16:00:00 160.02 cm [facility] Weight 2020-05-17 16:00:00 [facility] BMI Calculated 2020-05-17 16:00:00 [facility] Temperature Oral (F) 2020-04-08 21:41:00 97.9 F [facility] Systolic (mm Hg) 2020-04-08 21:41:00 Anthony [facility] Diastolic (mm Hg) 2020-04-08 21:41:00 [facility] Respitory Rate 2020-04-08 16:00:00 [facility] Systolic (mm Hg) 2020-04-08 16:00:00 Anthony [facility] Diastolic (mm Hg) 2020-04-08 16:00:00 [facility] Temperature Oral (F) 2020-04-08 16:00:00 98.0 F [facility] Respitory Rate 2020-04-08 15:45:00 [facility] Systolic (mm Hg) 2020-04-08 15:45:00 Anthony [facility] Diastolic (mm Hg) 2020-04-08 15:45:00 [facility] Respitory Rate 2020-04-08 15:30:00 [facility] Temperature Oral (F) 2020-04-08 12:30:00 98.4 F [facility] Heart Rate 2020-04-08 04:31:00 [facility] Heart Rate 2020-04-07 23:22:00 [facility] Heart Rate 2020-04-06 12:22:00 [facility] Height 2020-04-06 02:48:00 170.18 cm [facility] Weight 2020-04-06 02:48:00 [facility] BMI Calculated 2020-04-06 02:48:00 [facility] Height 2020-04-05 23:14:00 170.18 cm [facility] BMI Calculated 2020-04-05 23:14:00 [facility] Weight 2020-04-05 23:14:00 [facility] BP Systolic 2020-01-12 08:17:00 BP Diastolic 2020-01-12 [...] Diastolic (mm Hg) 2019-03-10 17:30:00 [facility] Heart Rate 2019-03-10 17:07:00 [facility] Respitory Rate 2019-03-10 17:07:00 [facility] Systolic (mm Hg) 2019-03-10 17:07:00 Anthony [facility] Diastolic (mm Hg) 2019-03-10 17:07:00 [facility] Heart Rate 2019-03-10 16:15:00 [facility] Respitory Rate 2019-03-10 15:30:00 [facility] Heart Rate 2019-03-10 15:30:00 [facility] Heart Rate 2019-01-18 16:07:00 [facility] Temperature Oral (F) 2019-01-18 16:07:00 98.2 F [facility] Respitory Rate 2019-01-18 16:07:00 [facility] Systolic (mm Hg) 2019-01-18 16:07:00 Anthony rial [facility] Diastolic (mm Hg) 2019-01-18 16:07:00 [facility] Respitory Rate 2019-01-18 14:03:00 [facility] Systolic (mm Hg) 2019-01-18 12:32:00 Anthony [facility] Diastolic (mm Hg) 2019-01-18 12:32:00 [facility] Temperature Oral (F) 2019-01-18 12:32:00 98.2 F [facility] Heart Rate 2019-01-18 12:32:00 [facility] Respitory Rate 2019-01-18 12:32:00 [facility] Temperature Oral (F) 2019-01-18 08:54:00 98.4 F [facility] Heart Rate 2019-01-18 08:54:00 [facility] Systolic (mm Hg) 2019-01-18 08:54:00 Anthony rial [facility] Diastolic (mm Hg) 2019-01-18 08:54:00 [facility] BMI Calculated 2019-01-16 13:43:00 [facility] Weight 2019-01-16 13:43:00 [facility] Height 2019-01-16 13:43:00 160.02 cm [facility] Weight 2019-01-15 17:57:00 [facility] BMI Calculated 2019-01-15 17:57:00 [facility] Height 2019-01-15 17:57:00 162.56 cm [facility] Temperature Oral (F) 2012-05-19 16:43:00 96.3 F [facility] Heart Rate 2012-05-19 16:43:00 [facility] Respitory Rate 2012-05-19 16:43:00 [facility] Systolic (mm Hg) 2012-05-19 16:43:00 Anthony rial [facility] Diastolic (mm Hg) 2012-05-19 16:43:00 [facility] Weight 2012-05-19 16:43:00 [facility] Height 2012-05-19 16:43:00 160.02 cm [facility] Temperature Oral (F) 2012-01-28 14:02:00 97.8 F [facility] Systolic (mm Hg) 2012-01-28 14:02:00 Anthony rial [facility] Heart Rate 2012-01-28 14:02:00 [facility] Respitory Rate 2012-01-28 14:02:00 [facility] Diastolic (mm Hg) 2012-01-28 14:02:00 [facility] Weight 2012-01-28 14:02:00 [facility] Height 2012-01-28 14:02:00 160.02 cm [facility] Respitory Rate 2012-01-10 14:26:00 [facility] Heart Rate 2012-01-10 14:26:00 [facility] Temperature Oral (F) 2012-01-10 14:26:00 98.3 F [facility] Diastolic (mm Hg) 2012-01-10 14:26:00 [facility] Systolic (mm Hg) 2012-01-10 14:26:00 Anthony rial [facility] Weight 2012-01-10 14:26:00 [facility] Height 2012-01-10 14:26:00 160.02 cm [facility] Procedures Procedure Date / Time Performing Clinician Source Performed XR HIPS 3 VW RIGHT 2022-07-12 00:44:47 Katelyn Montoya [facility] CONSENT/REFUSAL FOR 2022-07-11 23:27:12 Doctor Unassigned, [facility] DIAGNOSIS AND TREATMENT [facility] XR CERVICAL SPINE AP 2021-05-10 21:08:13 [facility] LATERAL FLEXION AND EXTENSION [id number] 2021-02-15 00:00:00 [facility] [id number] 2021-02-15 00:00:00 [facility] [id number] 2021-02-15 00:00:00 [facility] XR CERVICAL SPINE AP 2021-02-02 18:35:55 [facility] LATERAL FLEXION AND EXTENSION [id number] 2021-01-08 00:00:00 [facility] [id number] 2021-01-08 00:00:00 [facility] [id number] 2021-01-08 00:00:00 [facility] [id number] 2021-01-08 00:00:00 [facility] [id number] 2021-01-08 00:00:00 [facility] [id number] 2021-01-08 00:00:00 [facility] [id number] 2021-01-08 00:00:00 [facility] [id number] 2021-01-08 00:00:00 [facility] [id number] 2021-01-08 00:00:00 [facility] [id number] 2021-01-08 00:00:00 [facility] [id number] 2021-01-08 00:00:00 [facility] [id number] 2021-01-08 00:00:00 [facility] [id number] 2021-01-08 00:00:00 [facility] SPINE CERVICAL 2021-01-03 11:09:00 Cuccio, Debbie [facility] WITHOUT IV CONTRAST Center XR CHEST 1 VIEW 2021-01-03 07:35:00 Sarah Allen [facility] PORTABLE / BEDSIDE Center CBC W/PLT COUNT & AUTO 2021-01-03 05:05:00 Sarah Allen [facility] DIFFERENTIAL Center COMPREHENSIVE METABOLIC 2021-01-03 05:05:00 Sarah Allen [facility] PANEL Center MAGNESIUM 2021-01-03 05:05:00 Sarah Allen [facility] [id number] 2021-01-03 00:00:00 [facility] [id number] 2021-01-03 00:00:00 [facility] [id number] 2021-01-03 00:00:00 [facility] [id number] 2021-01-03 00:00:00 [facility] [id number] 2021-01-03 00:00:00 [facility] [id number] 2021-01-03 00:00:00 [facility] [id number] 2021-01-03 00:00:00 [facility] [id number] 2021-01-03 00:00:00 [facility] [id number] 2021-01-03 00:00:00 [facility] [id number] 2021-01-03 00:00:00 [facility] [id number] 2021-01-03 00:00:00 [facility] [id number] 2021-01-03 00:00:00 [facility] [id number] 2021-01-03 00:00:00 [facility] [id number] 2021-01-03 00:00:00 [facility] [id number] 2021-01-03 00:00:00 [facility] [id number] 2021-01-03 00:00:00 [facility] [id number] 2021-01-03 00:00:00 [facility] [id number] 2021-01-03 00:00:00 [facility] [id number] 2021-01-03 00:00:00 [facility] [id number] 2021-01-03 00:00:00 [facility] [id number] 2021-01-03 00:00:00 [facility] [id number] 2021-01-03 00:00:00 [facility] [id number] 2021-01-03 00:00:00 [facility] [id number] 2021-01-03 00:00:00 [facility] [id number] 2021-01-03 00:00:00 [facility] [id number] 2021-01-03 00:00:00 [facility] [id number] 2021-01-03 00:00:00 [facility] [id number] 2021-01-03 00:00:00 [facility] [id number] 2021-01-03 00:00:00 [facility] CBC W/PLT COUNT & AUTO 2021-01-02 05:45:00 Ezio Terry [facility] I [facility] BASIC METABOLIC PANEL 2021-01-02 05:45:00 Ezio Terry [facility] [place] BASIC METABOLIC PANEL 2021-01-01 05:17:00 Moe Mcbride [facility] [place] PHOSPHORUS 2021-01-01 05:17:[address] [facility] CBC W/PLT COUNT & AUTO 2021-01-01 05:17:00 Rae Moe [facility] DIFFERENTIAL Center APTT 2020-12-31 14:30:00 Debbie Holguin [facility] LAMINOPLASTY,CERVICAL 2020-12-31 14:22:00 Gianna Barnett [facility] DECOMPRESSION SPINAL Center CORD BASIC METABOLIC PANEL 2020-12-31 06:41:00 Rae [facility] (7) Center PHOSPHORUS 2020-12-31 05:29:[address] [facility] CBC W/PLT COUNT & AUTO 2020-12-31 05:29[facility]AL VENOUS 2020-12-30 14:00:00 Ezio Terry [facility] CATHETER PLACEMENT Center (JUGULAR OR FEMORAL) XR CHEST 1 VIEW 2020-12-30 05:52:00 Sarah Allen [facility] PORTABLE / BEDSIDE Center PHOSPHORUS 2020-12-30 04:42:[address] [facility] CBC W/PLT COUNT & AUTO 2020-12-30 04:42:00 Rae [facility] COMPREHENSIVE METABOLIC 2020-12-30 04:42:00 [facility] 2020-12-30 04:42:00 Sarah Allen [facility] CT SPINE CERVICAL 2020-12-29 13:47:00 Ezio [facility] WITHOUT IV CONTRAST Center HC ARTERIAL DOPPLER ARM 2020-12-29 08:53:00 Ezio [facility] HC VENOUS DOPPLER EXT 2020-12-29 08:00:00 Ezio [facility] HEPATITIS B SURFACE 2020-12-29 04:24:00 [facility]TIGEN Center HEPATITIS B SURFACE 2020-12-29 04:24:00 [facility]TIBODY Center XR CHEST 1 VIEW 2020-12-28 11:21:00 Ezio [facility] PORTABLE / BEDSIDE Center XR HIP 2 VIEWS LEFT 2020-12-28 10:10:00 [facility]OLIC 2020-12-28 04:10:00 Sarah Allen [facility] PANEL Center CBC W/PLT COUNT & AUTO 2020-12-28 04:10:00 Sarah Allen [facility] DIFFERENTIAL Center MAGNESIUM 2020-12-28 04:10:00 [facility] FL FLUORO NON-SPECIFIC 2020-12-27 12:50:00 BindGianna farfan [facility] UP TO 1 HOUR Center ABORH, MANUAL 2020-12-27 11:27:00 Laura Mcdonald [facility] LAMINECTOMY,CERVICAL 2020-12-27 09:35:00 BindalGianna I [facility] FACETECTOMY/ Center FORAMINOTOMY/ DECOMPRESSION ALLOGRAFT,FOR SPINE 2020-12-27 09:35:00 BindGianna farfan [facility] SURGERY Center TYPE AND SCREEN, 2020-12-27 08:42:00 Terell [facility] AUTOMATED Center PT/APTT 2020-12-27 08:42:00 BindGianna farfan [facility] POTASSIUM 2020-12-27 08:42:00 Terell [facility] BASIC METABOLIC PANEL 2020-12-22 11:24:00 Gianna Barnett [facility] (7) Center CBC W/PLT COUNT & AUTO 2020-12-22 11:24:00 BindGianna farfan [facility] DIFFERENTIAL Center PT/APTT 2020-12-22 11:24:00 Bindnaheed [facility] AUTHORIZATION FOR 2020-06-10 06:01:00 Doctor Unassigned, [facility] RELEASE OF PHI [facility] Colectomy [facility] Thyroidectomy [facility] Total hysterectomy [facility] Plan of Care Planned Activity Planned Date Details Comments Source Future Scheduled 2023-04-17 INFLUENZA VACCINE (#1) M [facility] Test 19:26:19 [code = INFLUENZA VACCINE (#1)] Future Scheduled 2023-04-17 65+ PNEUMOCOCCAL [facility] Test 19:26:19 VACCINE (1 - PCV) [code = 65+ PNEUMOCOCCAL VACCINE (1 - PCV)] Future Scheduled 2023-04-17 Hepatitis C screening [facility] Test 19:26:19 (procedure) [code = 215795449] Future Scheduled 2023-04-17 BREAST CANCER [facility] Test 19:26:19 SCREENING [code = BREAST CANCER SCREENING] Future Scheduled 2023-04-17 SHINGLES VACCINES (1 Met [facility] Test 19:26:19 of 2) [code = SHINGLES VACCINES (1 of 2)] Future Scheduled 2023-04-17 COVID-19 VACCINE (4 - Me [facility] Test 19:26:19 season) [code = COVID-19 VACCINE (4 - season)] Future Scheduled 2023-02-23 65+ [facility]OCOCCAL [facility] Test 23:38:52 VACCINE (1 - PCV) [code = 65+ PNEUMOCOCCAL VACCINE (1 - PCV)] Future Scheduled 2023-02-23 Hepatitis C screening [facility] Test 23:38:52 (procedure) [code = 662780357] Future Scheduled 2023-02-23 BREAST CANCER [facility] Test 23:38:52 SCREENING [code = BREAST CANCER SCREENING] Future Scheduled 2023-02-23 SHINGLES VACCINES (1 Met [facility] Test 23:38:52 of 2) [code = SHINGLES VACCINES (1 of 2)] Future Scheduled 2023-02-23 COVID-19 VACCINE (4 - Me [facility] Test 23:38:52 Mixed Product series) [code = COVID-19 VACCINE (4 - Mixed Product series)] Future Scheduled 2023-02-23 INFLUENZA VACCINE (#[facility] Test 23:38:52 [code = INFLUENZA VACCINE (#1)] Future Scheduled 2023-02-[address] [facility] Test 00:00:00 (Season Ended) [code = Medic al Center INFLUENZA VACCINE (Season Ended)] Future Scheduled 2023-02-22 Influenza Vaccine (#1) [facility] Test 00:00:00 [code = Influenza Medical Ce nter Vaccine (#1)] Future Scheduled 2023-02-22 Influenza Vaccine (#1) [facility] Test 00:00:00 [code = Influenza Medical Ce nter Vaccine (#1)] Future Scheduled 2023-02-22 Influenza Vaccine (#1) [facility] Test 00:00:00 [code = Influenza Medical Ce nter Vaccine (#1)] Future Scheduled 2023-01-23 65+ [facility]OCOCCAL [facility] Test 23:07:21 VACCINE (1 - PCV) [code = 65+ PNEUMOCOCCAL VACCINE (1 - PCV)] Future Scheduled 2023-01-23 Hepatitis C screening [facility] Test 23:07:21 (procedure) [code = [id number]] Future Scheduled 2023-01-23 BREAST CANCER [facility] Test 23:07:21 SCREENING [code = BREAST CANCER SCREENING] Future Scheduled 2023-01-23 SHINGLES VACCINES (1 Met [facility] Test 23:07:21 of 2) [code = SHINGLES VACCINES (1 of 2)] Future Scheduled 2023-01-23 COVID-19 VACCINE (4 - [facility] Test 23:07:21 Mixed Product series) [code = COVID-19 VACCINE (4 - Mixed Product series)] Future Scheduled 2023-01-23 INFLUENZA VACCINE [facility] Test 23:07:21 [code = INFLUENZA VACCINE] Future Scheduled 2022-09-27 65+ [facility]OCOCCAL [facility] Test 04:46:03 VACCINE (1 - PCV) [code = 65+ PNEUMOCOCCAL VACCINE (1 - PCV)] Future Scheduled 2022-09-27 Hepatitis C screening [facility] Test 04:46:03 (procedure) [code = [id number]] Future Scheduled 2022-09-27 SHINGLES VACCINES (1 Met [facility] Test 04:46:03 of 2) [code = SHINGLES VACCINES (1 of 2)] Future Scheduled 2022-09-27 BREAST CANCER [facility] Test 04:46:03 SCREENING [code = BREAST CANCER SCREENING] Future Scheduled 2022-09-27 COLONOSCOPY SCREENING [facility] Test 04:46:03 [code = COLONOSCOPY SCREENING] Future Scheduled 2022-09-27 COVID-19 VACCINE (4 - [facility] Test 04:46:03 Booster) [code = COVID-19 VACCINE (4 - Booster)] Future Scheduled 2022-09-27 INFLUENZA VACCINE [facility] Test 04:46:03 [code = INFLUENZA VACCINE] Future Scheduled 2022-09-27 65+ P[facility]UMOCOCCAL [facility] Test 04:46:03 VACCINE (1 - PCV) [code = 65+ PNEUMOCOCCAL VACCINE (1 - PCV)] Future Scheduled 2022-09-27 Hepatitis C screening [facility] Test 04:46:03 (procedure) [code = [id number]] Future Scheduled 2022-09-27 SHINGLES VACCINES (1 Met [facility] Test 04:46:03 of 2) [code = SHINGLES VACCINES (1 of 2)] Future Scheduled 2022-09-27 BREAST CANCER [facility] Test 04:46:03 SCREENING [code = BREAST CANCER SCREENING] Future Scheduled 2022-09-27 COLONOSCOPY SCREENING [facility] Test 04:46:03 [code = COLONOSCOPY SCREENING] Future Scheduled 2022-09-27 COVID-19 VACCINE (4 - [facility] Test 04:46:03 Booster) [code = COVID-19 VACCINE (4 - Booster)] Future Scheduled 2022-09-27 INFLUENZA VACCINE [facility] Test 04:46:03 [code = INFLUENZA VACCINE] [...] Future Scheduled 2022-03-15 HEPATITIS B VACCINES [facility] Test 04:19:36 (1 of 3 - 3-dose series) [code = HEPATITIS B VACCINES (1 of 3 - 3-dose series)] Future Scheduled 2022-03-15 65+ PNEUMOCOCCAL [facility] Test 04:19:36 VACCINE (1 - PCV) [code = 65+ PNEUMOCOCCAL VACCINE (1 - PCV)] Future Scheduled 2022-03-15 Hepatitis C screening [facility] Test 04:19:36 (procedure) [code = [id number]] Future Scheduled 2022-03-15 SHINGLES VACCINES (1 [facility] Test 04:19:36 of 2) [code = SHINGLES VACCINES (1 of 2)] Future Scheduled 2022-03-15 BREAST CANCER [facility] Test 04:19:36 SCREENING [code = BREAST CANCER SCREENING] Future Scheduled 2022-03-15 COLONOSCOPY SCREENING [facility] Test 04:19:36 [code = COLONOSCOPY SCREENING] Future Scheduled 2022-03-15 COVID-19 VACCINE (4 - [facility] Test 04:19:36 Booster) [code = COVID-19 VACCINE (4 - Booster)] Future Scheduled 2022-03-15 INFLUENZA VACCINE [facility] Test 04:19:36 [code = INFLUENZA VACCINE] [...] [facility] Test 00:[facility]:00 (1 of 1 - [facility] [id number] PCV13) [code = PNEUMOCOCCAL 65+ YRS (1 of 1 - HBFC44_Gtylere PCV13)] Future Scheduled 2019-09-11 PNEUMOCOCCAL 65+ YRS [...] [facility] Test 00:00:00 [code = COVID-[address] VACCINE (#1)] Future Scheduled 1955-03[birth year]13 COVID-19 [...] [facility] breast (procedure) [code = 596266450] Future Scheduled [address] [facility] Test 00:[facility]:00 [facility] ne[facility] colon (procedure) [code = 006836888] Future Scheduled [address] [facility] Test 00:00:00 [facility] breast (procedure) [code = 658251314] Future Scheduled [address] [facility] Test 00:00:00 (combo) [code = CT Medical C enter Colonography (combo)] Future Scheduled [address] [facility] Test 00:00:00 [facility] colon (procedure) [code = 084347653] Future Scheduled [address] [facility] Test 00:00:00 [facility] colon (procedure) [code = 649254937] Future Scheduled 1954 DXA SCAN [code = DXA [facility] Test 00:00:00 SCAN] [facility] Future Scheduled [address] [facility] Test 00:00:00 [facility] colon (procedure) [code = 264119361] Future Scheduled [address] [facility] Test 00:00:00 malignant [facility] colon (procedure) [code = 571523103] Future Scheduled 1954 Sigmoidoscopy [facility]code = [facility] Sigmoidoscopy] [facility] Future Scheduled [address] [facility] Test 00:00:00 malignant ne[facility] breast (procedure) [code = 812972354] Future Scheduled [address] [facility] Test 00:00:00 (combo) [code = CT Medical C enter Colonography (combo)] Future Scheduled [address] [facility] Test 00:00:00 [facility] colon (procedure) [code = 078536077] Future Scheduled [address] [facility] Test 00:00:00 [facility] colon (procedure) [code = 402219960] Future Scheduled 1954 DXA SCAN [code = DXA [facility] Test 00:00:00 SCAN] [facility] Future Scheduled [address] [facility] Test 00:00:00 [facility] colon (procedure) [code = 054991090] Future Scheduled [address] [facility] Test 00:00:00 [facility] colon (procedure) [code = 782425445] Future Scheduled 1954 Sigmoidoscopy [facility]oscopy] [facility] Future Scheduled [address] [facility] Test 00:00:00 malignant ne[facility] breast (procedure) [code = 453137177] Future Scheduled [address] [facility] Test 00:00:00 (combo) [code = CT Medical C enter Colonography (combo)] Future Scheduled [address] [facility] Test 00:00:00 [facility] colon (procedure) [code = 248100939] Future Scheduled [address] [facility] Test 00:00:00 [facility] colon (procedure) [code = 838139762] Future Scheduled 1954 DXA SCAN [code = DXA [facility] Test 00:00:00 SCAN] [facility] Future Scheduled [address] [facility] Test 00:00:00 malignant [facility] colon (procedure) [code = 210149477] Future Scheduled [address] [facility] Test 00:00:00 malignant ne[facility] colon (procedure) [code = 281940842] Future Scheduled 1954 Sigmoidoscopy [facility]oscopy] [facility] Future Scheduled [address] [facility] Test 00:00:00 malignant ne[facility] breast (procedure) [code = 741346947] Future Scheduled [address] [facility] Test 00:00:00 (combo) [code = CT Medical C enter Colonography (combo)] Future Scheduled [address] [facility] Test 00:00:00 [facility] colon (procedure) [code = 728258334] Future Scheduled [address] [facility] Test 00:00:00 [facility] colon (procedure) [code = 661926427] Future Scheduled 1954 DXA SCAN [code = DXA [facility] Test 00:00:00 SCAN] [facility] Future Scheduled [address] [facility] Test 00:00:00 malignant neoplasm of [facility] colon (procedure) [code = 509438656] Future Scheduled [address] [facility] Test 00:00:00 malignant neoplasm of [facility] colon (procedure) [code = 253926573] Future Scheduled 1954 [facility]oidoscopy [facility]oscopy] [facility] Future Scheduled 65+ [facility]OC[facility] VACCINE (1 of 4 - PCV13) [code = 65+ PNEUMOCOCCAL VACCINE (1 of 4 - PCV13)] Future Scheduled COVID-19 [facility]ACCINE (1[facility] [code = COVID-19 VACCINE (1)] Future Scheduled Hepatitis C screening [facility] Test (procedure) [code = 196791890] Future Scheduled BREAST CANCER [facility] Test SCREENING [code = BREAST CANCER SCREENING] Future Scheduled COLONOSCOPY SCREENING [facility] Test [code = COLONOSCOPY SCREENING] Future Scheduled SHINGLES VACCINES (#1) [facility] [code = SHINGLES VACCINES (#1)] Future Scheduled INFLUENZA VACCINE [facility] Test [code = INFLUENZA VACCINE] Goal Plan of Care Note [code = 99998-9] Goal Plan of Care Note [code = 29137-7] Goal Plan of Care Note [code = 48192-3] Goal Plan of Care Note [code = 19711-8] Goal Plan of Care Note [code = 29223-8] Goal Plan of Care Note [code = 95972-1] Goal Plan of Care Note [code = 28555-5] Goal Plan of Care Note [code = 18258-6] Goal Plan of Care Note [code = 50764-8] Goal Plan of Care Note [code = 86792-2] Goal Plan of Care Note [code = 09897-4] Goal Plan of Care Note [code = 35626-6] Goal Plan of Care Note [code = 66048-8] Goal Plan of Care Note [code = 03425-2] Goal Plan of Care Note [code = 82288-6] Goal Plan of Care Note [code = 92880-9] Goal Plan of Care Note [code = 73414-5] Goal Plan of Care Note [code = 68721-9] Goal Plan of Care Note [code = 30340-0] Goal Plan of Care Note [code = 98133-0] Goal Plan of Care Note [code = 09579-6] Goal Plan of Care Note [code = 08022-7] Goal Plan of Care Note [code = 01011-3] Goal Plan of Care Note [code = 04882-9] Goal Plan of Care Note [code = 21512-4] Goal Plan of Care Note [code = 55322-0] Goal Plan of Care Note [code = 53856-5] Goal Plan of Care Note [code = 08640-2] Encounters Start End Encounter Admission Attending Care Care Encounter Source Date/Time Date/Time Type Type Clinicians Facility Department ID 2023-04-28 Outpatient nullJose Albertoo YULIANA Mccarthy [id number] Memoria 14:05:06 r Medical 00 l [facility] 2023-04-28 OD YULIANAMAICOL [facility] [id number] Ks moria 14:05:06 [facility] 2022-01-08 Outpatient MIKGLADYSLINENI [facility] [id number] Common 16:07:03 , Spirit [facility] [place] 2021-11-23 Outpatient [facility] [id number] Common 09:29:03 , Spirit [facility] [place] 2021-07-20 Outpatient 3 [id number] ENCPL REF [id number] [facility] 12:45:54 0824 [facility] [place] 2021-07-20 Outpatient 3 SUMANTH ENCPL [facility] [id number] [facility] 12:30:11 YORDAN 0713 [facility] [place] 2021-07-20 Outpatient 3 [id number] ENCPL REF [id number] [facility] 12:28:51 0709 [facility] [place] 2021-04-02 Outpatient ERICKA, [facility] Surgery [id number] [facility] 02:14:55 GIANNA 2021-02-06 Inpatient SILVIA ALLEN MARECHELO [facility] Medicine [id number] SLS 01:22:00 2021-02-03 Outpatient nullFlavo YULIANA Mccarthy [id number] Memoria 17:47:23 r Medical 00 kalyani [facility] 2021-02-03 OD MHIE MHIE [id number] Ks moria 17:47:23 00 kalyani Talon 2019-08-31 Outpatient DE [facility] [id number] MH HH 09:50:05 VINYN GARDUNO 2023-05-10 2023-05-10 Outpatient MHIE MHIE [id number] Memoria 11:15:00 11:15:00 12 kalyani Talon 2023-05-10 2023-05-10 Outpatient MHIE MHIE [id number] Memoria 11:15:00 11:15:00 12 kalyani Talon 2023-03-27 2023-03-27 Outpatient [facility] [id number] Tyr[place] 13:44:43 13:44:43 1004 F Elmer 2023-02-21 2023-02-22 Outpatient MHIE MNA [id number] Memoria 18:15:00 04:59:59 Neurology 11 l Keshav Hanley 2023-02-21 2023-02-22 Outpatient MHIE MNA [id number] Memoria 18:15:00 04:59:59 Neurology 11 l Keshav Hanley 2023-02-21 2023-02-21 Outpatient YULIANA ZhengMISCHER MHMISCHER [id number] 13:15:00 23:59:59 Paul 11 Patrice 2023-02-21 2023-02-21 Outpatient MHIE MHIE [id number] Memoria 13:15:00 13:15:00 11 kalyani Talon 2023-02-08 2023-02-09 Outpatient MHIE MNA [id number] Memoria 20:30:00 04:59:59 Neurology 10 l Keshav Hanley 2023-02-08 2023-02-09 Outpatient MHIE MNA [id number] Memoria 20:30:00 04:59:59 Neurology 10 kalyani Keshav Hanley 2023-02-08 2023-02-08 Outpatient YULIANA ZhengMISCHER MHMISCHER [id number] 15:30:00 23:59:59 Paul 10 Patrice 2023-02-08 2023-02-08 Outpatient MHIE MHIE [id number] Memoria 15:30:00 15:30:00 10 kalyani Hanley 2023-01-09 2023-01-10 Outpatient MHIE MNA [id number] Memoria 16:45:00 04:59:59 Neurology 09 l Keshav Hanley 2023-01-09 2023-01-10 Outpatient MHIE MNA [id number] Memoria 16:45:00 04:59:59 Neurology 09 l Keshav Hanley 2023-01-09 2023-01-09 Outpatient YULIANA ZhengTNSCHER MISCHER [id number] 11:45:00 23:59:59 Paul 09 Patrice 2023-01-09 2023-01-09 Outpatient MHIE MHIE [id number] Memoria 11:45:00 11:45:00 09 kalyani Hanley 2023-01-03 2023-01-03 Ambulatory MHIE MNA [id number] Memoria 18:00:00 18:00:00 Pre-Reg Neurology 08 l Keshav Hanley 2023-01-03 2023-01-03 Ambulatory MHIE MNA [id number] Memoria 18:00:00 18:00:00 Pre-Reg Neurology 08 l Keshav Hanley 2023-01-03 2023-01-03 Outpatient [facility] [id number] 13:00:00 13:00:00 Paul 08 Patrice 2022-12-26 2022-12-26 Outpatient MHIE MHIE [id number] Memoria 13:00:00 13:00:00 08 kalyani Hanley 2022-12-07 2022-12-08 Outpatient MHIE MNA [id number] Memoria 18:15:00 04:59:59 Neurology 07 kalyani Hanley 2022-12-07 2022-12-08 Outpatient MHIE MNA [id number] Memoria 18:15:00 04:59:59 Neurology 07 kalyani Hanley 2022-12-07 2022-12-07 Outpatient CLARICE ZhengSCHER MISCHER [id number] 13:15:00 23:59:59 Paul 07 Patrice 2022-12-07 2022-12-07 Outpatient MHIE MHIE [id number] Memoria 13:15:00 13:15:00 07 kalyani Hanley 2022-11-14 2022-11-14 Outpatient LUIS SMITH [id number] [place]one 17:23:09 17:23:09 0524 Sanam Payne 2022-07-11 2022-07-11 Emergency X JAN, [facility] ERT [id number] Univers 17:49:00 20:00:00 KATELYN alvares of [facility] 2022-07-11 2022-07-11 Emergency [facility] 1.2.022.409 [id number] Univers 17:49:00 20:00:00 Katelyn RODRIGUEZ 350.1.13.10 i ty of [place] 4.2.7.2.686 [facility] [id number] [address] 2022-03-28 2022-03-28 Outpatient SFA LUIS [id number] [place] 13:38:04 13:38:04 1005 F Elmer 2022-03-28 2022-03-28 Outpatient [id number] 00:00:00 00:00:00 Visit [id number] [id number] 2021-12-27 2021-12-27 Outpatient [id number]-[id number] 00:00:00 00:00:00 Visit ddff-413b dff-413b-a -aa6e-y2v f5e-g3enyp [id number] 7e05ae 2021-07-31 2021-08-02 Outside nullFlavo MNA [id number] Memoria 15:00:26 05:59:59 Medical r Neurology 05 l Records Keshav Hanley 2021-07-31 2021-08-02 Outside nullFlavo MNA [id number] Memoria 15:00:26 05:59:59 Medical r Neurology 05 l Records Keshav Hanley 2021-07-31 2021-08-01 Outpatient MHMISCHER MHMISCHER [id number] 09:00:26 23:59:59 2021-07-11 2021-07-13 Outside nullFlavo MNA [id number] Memoria 21:37:12 05:59:59 Medical r Neurology 04 l Records Keshav Hanley 2021-07-11 2021-07-13 Outside nullFlavo MNA [id number] Memoria 21:37:12 05:59:59 Medical r Neurology 04 l Records Keshav Hanley 2021-07-11 2021-07-12 Outpatient MHMISCHER MHMISCHER [id number] 15:37:12 23:59:59 04 2021-06-29 2021-07-01 Outside nullFlavo MNA [id number] Memoria 14:26:17 05:59:59 Medical r Neurology 03 l Records Keshav Hanley 2021-06-29 2021-07-01 Outside nullFlavo MNA [id number] Memoria 14:26:17 05:59:59 Medical r Neurology 03 l Records Keshav Hanley 2021-06-29 2021-06-30 Outpatient MHMISCHER MHMISCHER [id number] 08:26:17 23:59:59 03 2021-01-26 2021-05-25 Outpatient RECERTIFIC SUMANTH, ENCGEN ENCGEN [id number] ENCGEN 00:00:00 00:00:00 DOUG FARR 2021-05-15 2021-05-17 Outside nullFlavo MNA [id number] Memoria 14:12:40 05:59:59 Medical r Neurology 02 l Records Keshav Hanley 2021-05-15 2021-05-17 Outside nullFlavo MNA [id number] Memoria 14:12:40 05:59:59 Medical r Neurology 02 l Records Keshav Hanley 2021-05-15 2021-05-16 Outpatient MHMISCHER MHMISCHER [id number] 08:12:40 23:59:59 02 2021-05-10 2021-05-10 [facility], 1.2.840.1 [id number] Methodi 14:53:11 23:59:00 Encounter Gianna Muller 18474.1.[address] 3.430.2.7 Hospit a .3.070793 l .8 2021-05-10 2021-05-10 Travel 12.840.1 1.2.958.991 [id number] Methodi 00:00:00 00:00:[address] 3.430.2.7 0.2.7.3.698 Ho spita .3.757378 084.8 l .8 2021-05-10 2021-05-10 Transcribe Bindal, 1.2.840.1 [id number] Methodi 00:00:00 00:00:00 Orders Gianna Renzo 24775.1.[address] 3.430.2.7 Hospit a .3.152208 l .8 2021-04-28 2021-04-29 Outpatient nullFlavo MNA [id number] Memoria 18:15:00 04:59:59 r Neurology 06 l Keshav Hanley 2021-04-28 2021-04-29 Outpatient nullFlavo MNA [id number] Memoria 18:15:00 04:59:59 r Neurology 06 l Keshav Hanley 2021-04-28 2021-04-28 Outpatient [id number] 13:15:00 23:59:59 Paul Shree Ibrahim 2021-04-28 2021-04-28 Outpatient YULIANAIE YULIANAIE [id number] Memoria 13:15:00 13:15:00 06 kalyani Hanley 2021-03-03 2021-03-03 Outpatient BINDKS, [facility] [id number] [place] 00:00:00 00:00:00 GIANNA [address] 2021-02-22 2021-02-22 Ambulatory nullFlavo MNA [id number] Memoria 15:45:00 15:45:00 Pre-Reg r Neurology 05 l Greer Talon 2021-02-22 2021-02-22 Ambulatory nullFlavo MNA [id number] Memoria 15:45:00 15:45:00 Pre-Reg r Neurology 05 l Keshav Hanley 2021-02-22 2021-02-22 Outpatient MHIE MHIE [id number] Memoria 10:45:00 10:45:00 05 kalyani Hanley 2021-02-22 2021-02-22 Outpatient [facility]NA [facility]ISCHER [facility] [id number] 10:45:00 10:45:00 Paul Xander Ibrahim 2021-02-02 2021-02-02 [facility] BINDKS, 1.2.840.1 [id number] [place] 00:00:00 00:00:00 Encounter GIANNA [id number] .3.698288 .8 2021-02-02 2021-02-02 Travel 1.2.840.1 1.2.241.240 [id number] Methodi 00:00:00 00:00:[address] 3.430.2.7 0.2.7.3.698 Ho spita .3.529496 084.8 l .8 2021-02-02 2021-02-02 Transcribe [facility], 1.2.840.1 [id number] Methodi 00:00:00 00:00:00 Orders Gianna KMelissa 18005.1.[address] 3.430.2.7 Hospit a .3.469827 l .8 2021-01-31 2021-02-01 Outpatient nullFlavo MNA [id number] Memoria 19:15:00 04:59:59 r Neurology 04 l Greer Talon 2021-01-31 2021-02-01 Outpatient nullFlavo MNA [id number] Memoria 19:15:00 04:59:59 r Neurology 04 l Keshav Hanley 2021-01-31 2021-01-31 [facility] [id number] 14:15:00 23:59:59 Paul Jimmy Patrice 2021-01-31 2021-01-31 Outpatient MHIE MHIE [id number] Memoria 14:15:00 14:15:00 04 kalyani Hanley 2021-01-26 2021-01-26 Outpatient MYKEL JIN [id number] ENCGEN 00:00:00 00:00:00 ADMISSION YORDAN 2021-01-26 2021-01-26 Outpatient RECERTIFIC MYKEL JULIO [id number] ENCGEN 00:00:00 00:00:00 ATION YORDAN 2021-01-08 2021-01-08 Emergency EM Eve, HCAPM HENOK [id number] [facility] 01:31:00 04:08:00 Zeus 17 [facility] [place] 2021-01-07 2021-01-07 Outpatient Vicente, HCAPM RADI [id number] [facility] 21:39:00 21:39:00 Zeny 91 [facility] [place] 2021-01-05 2021-01-05 Outpatient SUMANTH, HCAPM RADI [id number] [facility] 18:37:00 18:37:00 YORDAN 87 [facility] [place] 2020-12-22 2020-12-22 Outpatient EL SLSL SLSL [id number] SLSL 00:00:00 00:00:00 2020-10-31 2020-11-01 Outpatient nullFlavo MNA [id number] Memoria 14:45:00 04:59:59 r Neurology 03 l Keshav Hanley 2020-10-31 2020-11-01 Outpatient nullFlavo MNA [id number] Memoria 14:45:00 04:59:59 r Neurology 03 l Keshav Hanley 2020-10-31 2020-10-31 Outpatient CLARICE ZhengSCHRADHA MHMISCHER [id number] 09:45:00 23:59:59 Paul Gilmer Patrice 2020-10-31 2020-10-31 Outpatient MHIE MHIE [id number] Memoria 09:45:00 09:45:00 03 l Talon 2020-10-24 2020-10-26 Outside nullFlavo MNA [id number] Memoria 15:11:50 04:59:59 Medical r Neurology 01 l Records Keshav Hanley 2020-10-24 2020-10-26 Outside nullFlavo MNA [id number] Memoria 15:11:50 04:59:59 Medical r Neurology 01 l Records Keshav Hanley 2020-10-24 2020-10-25 Outpatient MHMISCHER MHMISCHER [id number] 10:11:50 23:59:59 2020-10-13 2020-10-13 Ambulatory nullFlavo MNA [id number] Memoria 15:30:00 15:30:00 Pre-Reg r Neurology 02 l Keshav Hanley 2020-10-13 2020-10-13 Ambulatory nullFlavo MNA [id number] Memoria 15:30:00 15:30:00 Pre-Reg r Neurology 02 l Keshav Hanley 2020-10-13 2020-10-13 Outpatient MHIE MHIE [id number] Memoria 10:30:00 10:30:00 02 kalyani Hanley 2020-10-13 2020-10-13 [facility] [id number] 10:30:00 10:30:00 Paul Patrice 2020-08-24 2020-08-26 Outside nullFlavo MNA [id number] Memoria 17:52:51 05:59:59 Medical r Neurology 00 l Records Keshav Hanley 2020-08-24 2020-08-26 Outside nullFlavo MNA [id number] Memoria 17:52:51 05:59:59 Medical r Neurology 00 l Records Keshav Hanley 2020-08-24 2020-08-25 Outpatient [facility]ISCHER [facility] [id number] 11:52:51 23:59:59 2020-08-17 2020-08-17 Ambulatory nullFlavo MNA [id number] Memoria 16:15:00 16:15:00 Pre-Reg r Neurology 01 l Keshav Hanley 2020-08-17 2020-08-17 Ambulatory nullFlavo MNA [id number] Memoria 16:15:00 16:15:00 Pre-Reg r Neurology 01 l Keshav Hanley 2020-08-17 2020-08-17 Outpatient MHIE MHIE [id number] Memoria 10:15:00 10:15:00 Sade Hanley 2020-08-17 2020-08-17 Outpatient [facility] [id number] 10:15:00 10:15:00 Paul Patrice 2020-07-20 2020-07-21 Outpatient nullFlavo MNA [id number] Memoria 19:30:00 05:59:59 r Neurology 00 l Keshav Hanley 2020-07-20 2020-07-21 Outpatient nullFlavo MNA [id number] Memoria 19:30:00 05:59:59 r Neurology 00 l Keshav Hanley 2020-07-20 2020-07-20 Outpatient ZITA ZhengSCHER [id number] 13:30:00 23:59:59 Paul Shoaib Ibrahim 2020-07-20 2020-07-20 Outpatient MHIE MHIE [id number] Memoria 13:30:00 13:30:00 00 l Talon 2020-06-10 2020-06-10 Orders Doctor KADIE 1.2.840.114 [id number] 00:00:00 00:00:00 Only Unassigned, ANN[facility]13.10 [facility]2.686 [id number] [facility] 2020-06-10 2020-06-10 Orders Doctor KADIE 1.2.840.114 [id number] [facility] 00:00:00 00:00:00 Only Unassigned, ANNITA 350.1.13.10 ity of [facility] 4.2.7.2.686 Kranthi as [id number] [address] 2020-05-26 2020-05-26 Day nullFlavo [facility] [id number] Memoria 13:45:00 20:35:00 Surgery r Talon 03 [facility] 2020-05-26 2020-05-26 Day nullFlavo [facility] [id number] Memoria 13:45:00 20:35:00 Surgery r Talon 03 [facility] 2020-05-26 2020-05-26 Outpatient TI, MHSE MHSE [id number] MH 07:45:00 14:35:00 [facility] 2020-05-26 2020-05-26 Outpatient Ti, MHSE MHSE [id number] 07:45:00 14:35:00 Blaine Tensed 2020-05-26 2020-05-26 Outpatient Ti, MHSE MHSE [id number] 07:45:00 14:35:00 Blaine Oseas 2020-05-17 2020-05-17 Day nullFlavo [facility] [id number] Memoria 14:24:00 21:55:00 Surgery r Casanova 02 [facility] 2020-05-17 2020-05-17 Day nullFlavo [facility] [id number] Memoria 14:24:00 21:55:00 Surgery r Talon 02 [facility] 2020-05-17 2020-05-17 Outpatient TI, MHSE MHSE [id number] MH 08:24:00 15:55:00 BLAINE [facility] 2020-05-17 2020-05-17 Outpatient Ti, MHSE MHSE [id number] 08:24:00 15:55:00 Blaine Tensed 2020-05-17 2020-05-17 Outpatient Ti, MHSE MHSE [id number] 08:24:00 15:55:00 Blaine Tensed 2020-04-05 2020-04-08 Inpatient nullFlavo [facility] [id number] Memoria 23:08:39 22:20:00 r Talon [facility] 2020-04-05 2020-04-08 Inpatient nullFlavo [facility] [id number] Memoria 23:08:39 22:20:00 r Talon [facility] 2020-04-06 2020-04-08 Inpatient E MARIAM REYNOLDS MHSE MED [id number] 12:24:00 17:20:00 [facility] 2020-04-05 2020-04-08 Outpatient Mariam Reynolds MHSE MHSE [id number] 18:08:39 17:20:00 Thalakulath 01 2020-04-05 2020-04-08 Outpatient Mariam Reynolds MHSE MHSE [id number] 18:08:39 17:20:00 Thalakulath 01 2019-03-10 2019-03-10 Day nullFlavo [facility] [id number] Memoria 15:07:00 17:53:00 Surgery r Casanova 00 [facility] 2019-03-10 2019-03-10 Day nullFlavo [facility] [id number] Memoria 15:07:00 17:53:00 Surgery r Casanova 00 [facility] 2019-03-10 2019-03-10 Outpatient Ti, MHSE MHSE [id number] 10:07:00 12:53:00 Blaine Shoaib Tensed 2019-03-10 2019-03-10 Outpatient MHSE MHSE [id number] MH 10:07:00 10:07:[address] [facility] 2019-01-16 2019-01-18 Observatio nullFlavo [facility] [id number] [id number] Memoria 18:29:00 20:39:00 n guilherme Hanley 02 l [facility] 2019-01-16 2019-01-18 Observatio nullFlavo [facility] 4547 [id number] Memoria 18:29:00 20:39:00 n guilherme Hanley 02 l [facility] 2019-01-16 2019-01-18 Outpatient Ti MHSE MHSE [id number] 13:29:00 15:39:00 Blaine Hampton Tensed 2019-01-16 2019-01-16 Outpatient MHSE MHSE [id number] 13:29:00 13:29:00 [facility] 2018-12-23 2018-12-29 Inpatient Yvette [facility] [id number] Univers 09:13:13 14:30:00 CAROLINA alvares [facility] 2012-05-19 2012-05-19 OR nullFlavo [facility] [id number] Memoria 10:19:00 10:19:00 r Medical 01 [facility] 2012-05-19 2012-05-19 OR nullFlavo [facility] [id number] Memoria 10:19:00 10:19:00 r Medical 01 [facility] 2012-01-10 2012-02-08 OR nullFlavo [facility] [place] [id number] Memoria 09:00:00 23:59:00 r Medical 00 [facility] 2012-01-10 2012-02-08 OR nullFlavo [facility] [id number] Memoria 09:00:00 23:59:00 r Medical 00 [facility] 2012-01-10 2012-01-10 Outpatient nullFlavo [facility] [place] 4547 [id number] Memoria 09:00:00 09:00:00 r Medical 01 [facility] 2012-01-10 2012-01-10 Outpatient nullFlavo [facility] [place] 4547 [id number] Memoria 09:00:00 09:00:00 r Medical 01 [facility] Results Test Description Test Time Test Comments Results Result Comments Source CULTURE, ANAEROBIC 2022-11-21 SPECIMEN NUMBER: [id number] CULTURE, ANAEROBIC SPECIMEN NUMBER: [id number] SPECIMEN COMMENT: LT ELBOW SOURCE: ELBOW REPORT STATUS: FINAL DIRECT GRAM STAIN: MODERATE WBC'S OBSERVED FEW GRAM POSITIVE BACILLI FINAL REPORT: 11/20/2022 NO ANAEROBES RECOVERED AFTER 5 DAYS UNLESS OTHERWISE INDICATED, ALL TESTING PERFORMED AT [facility] [address] [place] [id number] PATIENT PARTNER: ELSIE GUY M.D. [place] NUMBER [id number] [place]. [id number] COMPREHENSIVE METABOLIC PANEL 2021-02-14 04:53:00 Test Item [...] NOT 1092) ACCURATE CRE ATININE CLEARANCE IN MD EDICTING GLOMERULAR FILT RATION RATE. ESTIMATED GFR IS NOT APPLICABLE FOR DIALYSIS PATIENTS. Project Analyst ID - [id number] ID - [id number] ID - [id number] ID - [id number] ID - [id number] ID - [id number] ID - [id number] ID - [id number] ID - [id number] ID - [id number] ID - [id number] ID - [id number] ID - [id number] ID - [id number] ID - [id number] ID - [id number] 04:45:00 Test Item Value Reference Range Interpretation Comments MAGNESIUM (BEAKER) 1.9 mg/dL 1.5-3.0 Specimen slightly (test code = 627) hemolyzed Project Analyst ID - [id number] ID - [id number] ID - [id number] ID - [id number] W/PLT COUNT & AUTO [id number] 04:27:00 Test Item Value Reference Range Interpretation [...] PERCENT (BEAKER) (test code = 2801) POCT-GLUCOSE [id number] 15:27:00 Test Item Value Reference Range Interpretation Comments POC-GLUCOSE METER 129 mg/dL 70-110 H : TESTED A T SLSL 1317 (BEAKER) (test code [facility] [address], = 1538) [facility] [address]: Project Analyst/Techni delvin ID = [id number] for Capri Melton COMPREHENSIVE METABOLIC [id number] 05:43:00 Test Item Value Reference Range Interpretation [...] S NOT APPLICABLE FOR DIALYSIS PATIEN TS. Project Analyst ID - LITOOperator ID - LITOOperator ID - LITOOperator ID - LITOOperator ID - LITOOperator ID - LITOOperator ID - LITOOperator ID - LITOOperator ID - LITOOperator ID - LITOOperator ID - LITOOperator ID - LITOOperator ID - LITOOperator ID - LITOOperator ID - LITOOperator ID - LITOURIC [id number] 05:41:00 Test Item Value Reference Range Interpretation Comments URIC ACID (BEAKER) (test code = 2.0 mg/dL 2.5-8.0 L 773) Project Analyst ID - [id number] 05:40:00 Test Item Value Reference Range Interpretation Comments MAGNESIUM (BEAKER) (test code = 1.8 mg/dL 1.5-3.0 627) Project Analyst ID - LITOOperator ID - LITOOperator ID - LITOOperator ID - LITOC- REACTIVE [id number] 05:38:00 Test Item Value Reference Range Interpretation Comments C-REACTIVE PROTEIN (BEAKER) (test 0.68 mg/dL 0.00-0.50 H code = 676) Project Analyst ID - [id number] 05:37:00 Test Item Value Reference Range Interpretation Comments PHOSPHORUS (BEAKER) (test code = 2.1 mg/dL 2.5-4.5 L 604) Project Analyst ID - LITOB-TYPE NATRIURETIC FACTOR (BNP)2021-02-12 05:28:00 Test Item Value Reference Range Interpretation Comments B-TYPE NATRIURETIC PEPTIDE (BEAKER) 939 pg/mL 0-100 H (test code = 700) Project Analyst ID - [id number] 05:28:00 Test Item Value Reference Range Interpretation Comments PROCALCITONIN (BEAKER) (test code 0.11 ng/mL <0.05 H = 3036) SEPSIS RISK (ng/mL)Low: 0.05-0.50Intermediate: 0.51-2.00High: >=2.01CBC W/PLT COUNT & AUTO [id number] 04:58:00 Test Item Value Reference Range Interpretation [...] PERCENT (BEAKER) (test code = 2801) POCT-GLUCOSE [id number] 17:55:00 Test Item Value Reference Range Interpretation Comments POC-GLUCOSE METER 105 mg/dL 70-110 : TESTED A T SLSL 1317 (BEAKER) (test code [address], = 1538) [place] [address]: Project Analyst/Techni delvin ID = [id number] for Buff ord, Darlene POCT-GLUCOSE [id number] 11:51:00 Test Item Value Reference Range Interpretation Comments POC-GLUCOSE METER 128 mg/dL 70-110 H : TESTED A T [address] (BEAKER) (test code [address], = 1538) [place] [address]: Project Analyst/Techni delvin ID = [id number] for Buff ord, Darlene POCT-GLUCOSE [id number] 06:30:00 Test Item Value Reference Range Interpretation Comments POC-GLUCOSE METER 79 mg/dL 70-110 : TESTED A T [address] 1317 (BEAKER) (test code = [address], 1538) [place] [address]: Project Analyst/Techni delvin ID = [id number] for Oyeb esequiel, Silvia POCT-GLUCOSE [id number] 00:13:00 Test Item Value Reference Range Interpretation Comments POC-GLUCOSE METER 98 mg/dL 70-110 : TESTED A T [address] (BEAKER) (test code = [address], 1538) [place] [address]: Project Analyst/Techni delvin ID = [id number] for Oyeb esequiel, Silvia POCT-GLUCOSE [id number] 18:33:00 Test Item Value Reference Range Interpretation Comments POC-GLUCOSE METER 83 mg/dL 70-110 : TESTED A T [address] 13[address] (BEAKER) (test code = [address], 1538) [place] [address]: Project Analyst/Techni delvin ID = [id number] for Albert h, Capri POCT-GLUCOSE [id number] 12:02:00 Test Item Value Reference Range Interpretation Comments POC-GLUCOSE METER 144 mg/dL 70-110 H : TESTED A T [address]SL 1317 (BEAKER) (test code [address], = 1538) [place] [address]: Project Analyst/Techni delvin ID = [id number] for Albert h, Capri COMPREHENSIVE METABOLIC [id number] 06:26:00 Test Item Value Reference Range Interpretation [...] S NOT APPLICABLE FOR DIALYSIS PATIEN TS. Project Analyst ID - [id number] ID - [id number] ID - [id number] ID - [id number] ID - [id number] ID - [id number] ID - [id number] ID - [id number] ID - lfjz23Tytkxzbg ID - [id number] ID - [id number] ID - fghz21Jctesfrh ID - uamu87Zdcfnxkx ID - aeyy68Usoauplf ID - [id number] ID - [id number] 06:19:00 Test Item Value Reference Range Interpretation Comments MAGNESIUM (BEAKER) 1.8 mg/dL 1.5-3.0 Specimen slightly (test code = 627) hemolyzed Project Analyst ID - [id number] ID - [id number] ID - [id number] ID - [id number] CBC W/PLT COUNT & AUTO [id number] 05:55:00 Test Item Value Reference Range Interpretation [...] PERCENT (BEAKER) (test code = 2801) POCT-GLUCOSE [id number] 18:31:00 Test Item Value Reference Range Interpretation Comments POC-GLUCOSE METER 134 mg/dL 70-110 H : TESTED A T SLSL 1317 (BEAKER) (test code [facility] [address], = 1538) [facility] 77 478: Project Analyst/Techni delvin ID = [id number] for Capri Melton MR, BRAIN, WITHOUT [id number] 15:11:00Unlisted Reason for Exam - Click Yes and Enter Reason Below->YesUnlisted Reason for Exam->cva?? [facility] 1955 Sex: FFINAL REPORT MR, BRAIN, WITHOUT CONTRAST, MR, MRA, BRAIN, WITHOUT CONTRAST, MR, MRA,NECK, WITHOUT IV CONTRAST INDICATION: Unlisted Reason for Examcva?? TECHNIQUE: Multiplanar, multisequence MR imaging of the brain without intravenous contrast.MRA of the head utilizing 3-D stxn-hk-manaqf technique, with 3-D reconstructions.MRA of the neck utilizing 2-D and 3-D vnwo-mx-pdbyio technique, with 3-D reconstructions. COMPARISON: None FINDINGS: [...] stenosis within the head and neck. Signed: Enio Sue Young Verified Date/Time: 02/08/2021 15:11:47 MR, MRA, NECK, WITHOUT IV [id number] 15:11:00Unlisted Reason for Exam - Click Yes and Enter Reason Below- >YesUnlisted Reason for Exam->cva?? [facility] 1955 Sex: FFINAL REPORT MR, BRAIN, WITHOUT CONTRAST, MR, MRA, BRAIN, WITHOUT CONTRAST, MR, MRA,NECK, WITHOUT IV CONTRAST INDICATION: Unlisted Reason for Examcva?? TECHNIQUE: Multiplanar, multisequence MR imaging of the brain without intravenous contrast.MRA of the head utilizing 3-D efxj-gu-uywtjc technique, with 3-D reconstructions.MRA of the neck utilizing 2-D and 3-D djqh-tb-dxujwf technique, with 3-D reconstructions. COMPARISON: None FINDINGS: [...] Date/Time: 02/08/2021 15:11:47 MR, MRA, BRAIN, WITHOUT [id number] 15:11:00Unlisted Reason for Exam - Click Yes and Enter Reason Below- >YesUnlisted Reason for Exam->cva?? [facility] 1955 Sex: FFINAL REPORT MR, BRAIN, WITHOUT CONTRAST, MR, MRA, BRAIN, WITHOUT CONTRAST, MR, MRA,NECK, WITHOUT IV CONTRAST INDICATION: Unlisted Reason for Examcva?? TECHNIQUE: Multiplanar, multisequence MR imaging of the brain without intravenous contrast.MRA of the head utilizing 3-D rujs-rh-xnnuir technique, with 3-D reconstructions.MRA of the neck utilizing 2-D and 3-D seem-mg-pjsdwb technique, with 3-D reconstructions. COMPARISON: None FINDINGS: [...] Sue Steen Verified Date/Time: 02/08/2021 15:11:47 POCT-GLUCOSE [id number] 12:21:00 Test Item Value Reference Range Interpretation Comments POC-GLUCOSE METER 123 mg/dL 70-110 H : TESTED A T SLSL 1317 (BEAKER) (test code [address], = 1538) [facility] 77 478: Project Analyst/Techni delvin ID = [id number] for Capri Melton [id number] 06:34:00 Test Item Value Reference Range Interpretation Comments MAGNESIUM (BEAKER) (test code = 2.1 mg/dL 1.5-3.0 627) Project Analyst ID - LITOOperator ID - LITOOperator ID - LITOOperator ID - LITOBASIC METABOLIC [id number] 06:33:00 Test Item Value Reference Range Interpretation [...] S NOT APPLICABLE FOR DIALYSIS PATIEN TS. Project Analyst ID - LITOOperator ID - LITOOperator ID - LITOOperator ID - LITOOperator ID - LITOOperator ID - LITOOperator ID - LITOOperator ID - LITOOperator ID - LITOOperator ID - LITOCBC W/PLT COUNT & AUTO [id number] 06:13:00 Test Item Value Reference Range Interpretation [...] = 2801) RAD, CHEST, 1 VIEW, NON [id number] 09:38:00Reason for exam:- >pneumoniaShould this be performed at the bedside?->Yes [facility] 1955 Sex: FFINAL REPORT CHEST AP PORTABLE SEMIERECT History provided: Pneumonia COMPARISON STUDY: 02/06/2021 Significant progression of airspace disease throughout the right lung, with lesser degree of airspace disease within the left lung, consistent with multifocal pneumonia. Heart size normal. Signed: Melvin Gutierrez MDReport Verified Date/Time: 02/07/2021 09:38:47 Reading Location: [facility] Radiology Reading Room COMPREHENSIVE METABOLIC [id number] 09:34:00 Test Item Value Reference Range Interpretation [...] S NOT APPLICABLE FOR DIALYSIS PATIEN TS. Project Analyst ID - DSENSONOperator ID - DSENSONOperator ID - DSENSONOperator ID - DSENSONOperator ID - DSENSONOperator ID - DSENSONOperator ID - DSENSONOperator ID - DSENSONOperator ID - DSENSONOperator ID - DSENSONOperator ID - DSENSONOperator ID - DSENSONOperator ID - DSENSONOperator ID - DSENSONOperatorID - DSENSONOperator ID - DSENSONOperator ID - DSENSONOperator ID - DSENSONOperator ID - [id number] 05:49:00 Test Item Value Reference Range Interpretation Comments MAGNESIUM (BEAKER) 1.8 mg/dL 1.5-3.0 Specimen markedly (test code = 627) hemolyzed Project Analyst ID - LITOOperator ID - LITOOperator ID - LITOOperator ID - LITOCBC W/PLT COUNT & AUTO [id number] 05:26:00 Test Item Value Reference Range Interpretation [...] PERCENT (BEAKER) (test code = 2801) POCT-GLUCOSE [id number] 18:26:00 Test Item Value Reference Range Interpretation Comments POC-GLUCOSE METER 76 mg/dL 70-110 : TESTED A T SLSL 1317 (BEAKER) (test code = [address], 1538) [place] [address]: Project Analyst/Techni delvin ID = [id number] for Sue Koehler POCT-GLUCOSE [id number] 16:55:00 Test Item Value Reference Range Interpretation Comments POC-GLUCOSE METER 69 mg/dL 70-110 L : TESTED A T [address]SL 1317 (BEAKER) (test code = [address], 1538) [facility] 77 478: Project Analyst/Techni delvin ID = [id number] for Sue Koehler LIPID [id number] 15:50:00 Test Item Value Reference Range Interpretation [...] Borderline 130-159 High 160-189 Very High >=190 Project Analyst ID - DSENSONOperator ID - DSENSONOperator ID - DSENSONOperator ID - DSENSONOperator ID - DSENSONOperator ID - DSENSONTROPONIN [id number] 15:40:00 Test Item Value Reference Range Interpretation [...] failure, acidosis, acute neurological disease, and persistent tachyarrhythmia.Project Analyst ID - [id number] 15:24:00 Test Item Value Reference Range Interpretation Comments AMMONIA (BEAKER) (test 20 mol/L 17-80 Speci men slightly code = 348) hemolyzed Project Analyst ID - DSENSONOperator ID - DSENSONOperator ID - DSENSONOperator ID - DSENSONHEPATITIS B SURFACE [id number] 12:22:00 Test Item Value Reference Range Interpretation Comments HEPATITIS B SURFACE ANTIGEN (2) Nonreactive Nonreactive (BEAKER) (test code = 2585) Project Analyst ID - DSENSONPOCT-GLUCOSE [id number] 12:03:00 Test Item Value Reference Range Interpretation Comments POC-GLUCOSE METER 72 mg/dL 70-110 : TESTED A T [address]17 (BEAKER) (test code = [address], 1538) [facility] 77 478: Project Analyst/Techni delvin ID = [id number] for Rosslogan keesha, Sue RAD, CHEST, 1 VIEW, NON [id number] 07:53:00Reason for exam:- >pneumoniaShould this be performed at the bedside?->Yes [facility] : 1955 Sex: FFINAL REPORT History: [...] Baxter Verified Date/Time: 02/06/2021 07:53:46 Reading Location: [place] [address] Angio Body Reading Room COMPREHENSIVE METABOLIC [id number] 06:07:00 Test Item Value Reference Range Interpretation [...] S NOT APPLICABLE FOR DIALYSIS PATIEN TS. Project Analyst ID - [id number] ID - [id number] ID - [id number] ID - [id number] ID - [id number] ID - [id number] ID - [id number] ID - [id number] ID - [id number] ID - [id number] ID - [id number] ID - [id number] ID - [id number] ID - [id number] ID - [id number] ID - [id number] TROPONIN [id number] 06:05:00 Test Item Value Reference Range Interpretation [...] failure, acidosis, acute neurological disease, and persistent tachyarrhythmia.Project Analyst ID - [id number] 2021-02-06 05:59:00 Test Item Value Reference Range Interpretation Comments MAGNESIUM (BEAKER) (test code = 1.7 mg/dL 1.5-3.0 627) Project Analyst ID - [id number] ID - [id number] ID - [id number] ID - [id number]-[id number] 05:44:00 Test Item Value Reference Range Interpretation Comments D-DIMER QUANTITATIVE 0.77 MG/L FEU <0.50 H Final Information (BEAKER) (test code = (Auto Output) 671) REGARDING D-DIMER RESULTS: The 98% NPV (Negative Predictive Value) for DVT/PE exclusion is 0.50 mg/LFEU as suggested by the piercing artist and as approved by the FDA.HEMOGLOBIN [id number] 05:41:00 Test Item Value Reference Range Interpretation Comments HEMOGLOBIN A1C (BEAKER) (test code = 4.7 % 4.3-6.1 368) Project Analyst ID - [id number] W/PLT COUNT & AUTO [id number] 05:29:00 Test Item Value Reference Range Interpretation [...] XR Cervical Spine Ap Lateral Flexion And Gdefujaap2486-25-84 18:45:01 EXAMINATION: XR CERVICAL SPINE AP LATERAL [...] Left carotid bifurcation atherosclerotic ossifications are present. P-[id number] Interface, Radiology Results 02/02/2021 1:48 PM CDT [...] C5-C6 levels.Left carotid bifurcation atherosclerotic ossifications are present.[facility]-[id number] [facility]- CT ABD PELVIS W/O [id number] 02:24:00 [facility] : 1955 Sex: F Name: EVIE CORRAL [facility] : 1955 Age/S: 65 / F [address] [address] [place] Unit #: [id number] Loc: [place] [address] Phys: Zeus Prado Acct: [id number] Dis Date: Status: REG ER PHONE #: [phone] Exam Date: 01/08/2021 0205 FAX #: Reason: r/o ruptured viscous EXAMS: CPT: [id number] CT ABD PELVIS W/O CONT 19288 CT ABDOMEN AND PELVIS W/O CONTRAST Location [...] IMPRESSION: PAGE 1 Signed Report (CONTINUED) Name: EVEI CORRAL : 1955 Age/S: 65 / F [address] [address] Unit #: [id number] Loc: [place] [address] Phys: Zeus Prado DO Acct: [id number] Dis Date: Status: REG ER PHONE #: [phone] Exam Date: 01/08/2021 0205 FAX #: Reason: r/o ruptured viscous EXAMS: CPT: [id number] CT ABD PELVIS W/O CONT 74942 (Continued) 1. Minimal free air beneath the right hemidiaphragm along the anterior abdomen is likely from patient's peritoneal dialysis catheter. No definite suggestion of aperforated viscus. 2. Mild free fluid in the [...] PAGE 2 Signed Report- CT CHEST W/O [id number] 22:59:00 [facility] : 1955 Sex: F Name: EVIE CORRAL [facility] : 1955 Age/S: 65 / F [address] [address] Unit #: [id number] Loc: [place] [address] Phys: Zeny Zhang MD Acct: [id number] Dis Date: Status: REG REF PHONE #: [phone] Exam Date: 01/07/20212153 FAX #: Reason: PLEURAL EFFUSION EXAMS: CPT: [id number] CT CHEST W/O CONTRAST [address]27 CT chest without contrast Location : B2 HISTORY: Shortness of breath, pleural effusionCOMMENT: Multidetector slices through the chest were obtained [...] Rice, RT(R) CTDI: DLP: Trnscb Date/Time: 01/07/2021 (7183) t.ZEENATR.RK5 Orig Print D/T: S: 01/07/2021 (5145) PAGE 1 Signed Report- CT C-SPINE W/O [id number] 15:10:00 [facility] : 1955 Sex: F Name: EVIE CORRAL [facility] : 1955 Age/S: 65 / F [address] [address] [place] Unit #: [id number] Loc: [place] [address] Phys: Zeny Zhang MD Acct: [id number] Dis Date: Status: REG REF PHONE #: [phone] Exam Date: 01/07/2021 [facility] FAX #: Reason: S/P CERVICAL LAMINECTOMY EXAMS: CPT: [id number] CT C-SPINE W/O CONT 17524 EXAM: CT CERVICAL SPINE WITHOUT CONTRAST HISTORY: 65 years -old Female with S/P CERVICAL LAMINECTOMY ADMITTING DIAGNOSIS: CVA, cervical laminectomy LOCATION CODE: C3 COMPARISON: None TECHNIQUE: Computed tomography of cervical spine performed with axial images obtained from skullbase through T1. Coronal and sagittal 2-D images [...] is evidence of a large right pleural effusion . IMPRESSION: 1. Multilevel degenerative disc disease throughout the cervical spine, PAGE 1 Signed Report (CONTINUED) Name: EVIE CORRAL [facility] : 1955 Age/S: 65 / F [address] [address]: [id number] Loc: [place] [address] Phys: Zeny Zhang MD Acct: [id number] Dis Date: Status: REG REF PHONE #: [phone] Exam Date: 01/07/2021 1452 FAX #: Reason: S/P CERVICAL LAMINECTOMY EXAMS: CPT: [id number] CT C-SPINE W/O CONT 12461 (Continued) as discussed above. 2. Status post [...] (151) t.LUKAS.HPD Orig Print D/T: S: 01/07/2021 (1513) PAGE 2 Signed Report- CT HEAD/BRAIN W/O [id number] 19:57:00 [facility] : 1955 Sex: F Name: EVIE CORRAL [facility] : 1955 Age/S: 65 / F [address] [address] [place] Unit #: [id number] Loc: [place] [address] Phys: Undefined Provider Acct: [id number] Dis Date: Status: REG REF PHONE #: [phone] Exam Date: 01/05/2021 1847 FAX #: Reason: flat affect EXAMS: CPT: [id number] CT HEAD/BRAIN W/O CONT 85204 Exam: CT head without contrast. Location: H [...] RT(R)(CT) CTDI: DLP: Trnscb Date/Time: 01/05/2021 (1956) tBRANDAN.FC Orig Print D/T: S: 01/05/2021 (1999) PAGE 1 Signed ReportCT, SPINE, CERVICAL, WO [id number] 11:25:00 Unlisted Reason for Exam - Click Yes and Enter Reason Below->YesUnlisted Reason for Exam->postop scan [facility] : 1955 Sex: FFINAL REPORT EXAM: [...] MDReport Verified Date/Time: 01/03/2021 11:25:10 Reading Location: [facility] Radiology Reading Room CT spine cervical without IV iopupgae0109-92-78 11:25:00Interface, External Ris In - 01/03/2021 11:27 [...] MDReport Verified Date/Time: 01/03/2021 11:25:10 Reading Location: [facility] Radiology Reading [facility] 1 [facility], NON [id number] 08:36:00Reason for exam:->pneumoniaShould this be performed at the bedside?->Yes [facility] 1955 Sex: FFINAL REPORT INDICATION:Pneumonia. COMPARISON:12/30/2020. TECHNIQUE:Frontal view of chest. FINDINGS:Right subclavian approach central venous catheter tip at atrial caval junction.Elevatedright hemidiaphragm.Persistent infiltrate in right lower lobe.Mild pulmonary vascular congestion.No pleural effusion or pneumothorax. IMPRESSION:Right lower lobe infectious infiltrate persists. Signed:Pal Parkinson Verified Date/Time: 01/03/2021 08:36:21 Reading Location: [facility] Radiology Reading Room XR chest 1 view portable / [id number] 08:36:00Interface, External Ris In - 01/03/2021 8:38 AM CDTFINAL REPORT INDICATION:Pneumonia. COMPARISON:12/30/2020. TECHNIQUE:Frontal view of chest. FINDINGS:Right subclavian approach central venous catheter tip at atrial caval junction.Elevated right hemidiaphragm.Persistent infiltrate inright lower lobe.Mild pulmonary vascular congestion.No pleural effusion or pneumothorax. IMPRESSION:Right lower lobe infectious infiltrate persists. Signed: Pal Parkinson Verified Date/Time: 01/03/2021 08:36:21 Reading Location: [facility] Radiology Reading Room [facility] CenterComprehensive metabolic [id number] 05:56:00 Test Item Value Reference Range Interpretation Comments Protein, Total (test 5.8 See_Comment L [Autom ated code = 2885-2) message] The system which generated this result transmit melquiades reference range : 6.0 - 8.5 gm/dL . The reference range was not u sed to interpret th is result as normal/abnormal . Albumin (test code = 3.0 g/dL 3.5-5 L 34310-1) Alkaline Phosphatase 48 U/L 30-115 (test code [...] Calcium (test code = 8.8 mg/dL 8.5-10.5 65401-0) AST (test code = 29 U/L 5-40 1920-8) ALT (test code = 6 U/L 5-50 1742-6) EGFR (test code = 7 mL/min/1.73 [place] [address]-6) NOT ACCURATE CREATININE CLEARANCE IN PREDICTING GLOMERULAR FILTRATION RATE . ESTIMATED GFR I S NOT APPLICABLE FOR DIALYSIS PATIEN TS. BEKAH (test code = BEKAH) Project Analyst ID - [id number] r ID - [id number] r ID - [id number] r ID - [id number] r ID - [id number] r ID - [id number] r ID - [id number] r ID - [id number] r ID - [id number] r ID - [id number] r ID - [id number] r ID - [id number] r ID - [id number] r ID - [id number] r ID - [id number] r ID - [id number] Lab Interpretation Abnormal (test code = 32952-2) [facility] RosaCOMPREHENSIVE METABOLIC [id number] 05:56:00 Test Item Value Reference Range Interpretation [...] S NOT APPLICABLE FOR DIALYSIS PATIEN TS. Project Analyst ID - [id number] ID - [id number] ID - [id number] ID - [id number] ID - [id number] ID - [id number] ID - [id number] ID - [id number] ID - [id number] ID - [id number] ID - [id number] ID - [id number] ID - [id number] ID - [id number] ID - [id number] ID - [id number] Wivtiaiqg9881-42-26 05:51:00 Test Item Value Reference Range Interpretation Comments Magnesium (test code = 2.6 mg/dL 1.5-3 02911-6) BEKAH (test code = BEKAH) Project Analyst ID - [id number] ID - [id number] ID - [id number] ID - [id number] Lab Interpretation (test Normal code = 59789-8) [facility] RosaMAGNESIUM2021-07-13 05:51:00 Test Item Value Reference Range Interpretation Comments MAGNESIUM (BEAKER) (test code = 2.6 mg/dL 1.5-3.0 627) Project Analyst ID - [id number] ID - [id number] ID - [id number] ID - [id number] with platelet count + automated [id number] 05:38:00 Test Item Value Reference Range Interpretation Comments WBC (test code = 6690-2) 11.9 See_Comment H [A utomated message] The system [employer] generated this result transmitted ref erence range: 4.0 - 10 .0 K/L. The refe rence range was not u sed to interpret this result as normal/abnor mal. RBC (test code = 789-8) 3.68 See_Comment L [Au tomated message] The system [employer] generated this result transmitted ref erence range: 4.00 - 5 .00 M/L. The refe rence range was not u sed to interpret this result as normal/abnor mal. MCHC (test code = 786-4) 32.1 See_Comment L [A utomated message] The system [employer] generated this result transmitted ref erence range: [...] See_Comment [Aut omated message] 777-3) The system [employer] generated this result transmitted ref erence range: 150 - 43 0 K/CU MM. The referen ce range was not u sed to interpret this result as normal/abnor mal. MPV (test code = 11.3 fL 6-11.5 77656-2) nRBC (test code = 413) 0 See_Comment [Aut omated message] The system [employer] generated this result transmitted ref erence range: [...] H [Aut omated message] 670) The system [employer] generated this result transmitted ref erence range: 1.80 - 8 .00 K/L. The refe rence range was not u sed to interpret this result as normal/abnor mal. # Lymphs (test code = 0.32 See_Comment L [Auto mated message] 414) The system [employer] generated this result transmitted ref erence range: 1.48 - 4 .50 K/L. The refe rence range was not u sed to interpret this result as normal/abnor mal. # Monos (test code = 0.84 See_Comment [Autom ated message] 415) The system [employer] generated this result transmitted ref erence range: 0.00 - 1 .30 K/L. The refe rence range was not u sed to interpret this result as normal/abnor mal. # Eos (test code = 416) 0.00 See_Comment [Au tomated message] The system [employer] generated this result transmitted ref erence range: 0.00 - 0 .50 K/L. The refe rence range was not u sed to interpret this result as normal/abnor mal. # Baso (test code = 417) 0.02 See_Comment [A utomated message] The system [employer] generated this result transmitted ref erence range: 0.00 - 0 .20 K/L. The refe rence range was not u sed to interpret this result as normal/abnor mal. Immature 3 % 0-0 H Granulocytes-Relative (test code = 2801) Lab Interpretation (test Abnormal code = 18037-3) [facility] W/PLT COUNT & AUTO [id number] 05:38:00 Test Item Value Reference Range Interpretation [...] (BEAKER) (test code = 2801) Basic Metabolic [id number] 06:17:00 Test Item Value Reference Range Interpretation Comments Sodium (test code = 135 meq/L 558-984 5391-2) Potassium (test code = 4.0 meq/L 3.6-5.5 2823-3) Chloride (test code = 98 meq/L 98-106 5-0) CO2 (test code = 24 meq/L -8-9) BUN (test code = 71 mg/dL 10-26 H 3094-0) Creatinine (test code 6.95 mg/dL 0.5-1.2 H = 2160-0) Glucose (test code = 202 mg/dL 70-110 H 2345-7) Calcium (test code = 8.7 mg/dL 8.5-10.5 78579-4) EGFR (test code = 7 mL/min/1.73 [place] [address]-3) NOT ACCURATE CREATININE CLEARANCE IN PREDICTING GLOMERULAR FILTRATION RATE . ESTIMATED GFR I S NOT APPLICABLE FOR DIALYSIS PATIENTS. BEKAH (test code = BEKAH) Project Analyst ID - [id number] ID - ZVWT72Lwpyscti ID - FSJG60Mmndrejg ID - CUEV71Seonwfvb ID - TJLX20Djwzudar ID - UWVA24Mbntagmx ID - OKTC44Jiyuihph ID - NIPF98Toychzjz ID - ZJZU09Wjcybate ID - EODC76Ahgwlejd ID - XPGL43Ppmeusjp ID - NEKX00Ewztwzms ID - [id number] Lab Interpretation Abnormal (test code = 94083-5) [facility] [id number] 06:17:00 Test Item Value Reference Range Interpretation [...] S NOT APPLICABLE FOR DIALYSIS PATIEN TS. Project Analyst ID - [id number] ID - BTYY26Rmoffhno ID - NDJH74Vvsmqbqe ID - SFYX72Dyrtlzgz ID - CPFX58Bmkokcnl ID - WCZK62Zkonhewp ID - AKDK29Xgtedatq ID - KREP72Xtpocmde ID - PVNT23Enifncxf ID - FJZW05Zwgqghed ID - EEUA49Todwjasb ID - IADR51Cznmrhxh ID - ZBXU94HMO W/PLT COUNT & AUTO [id number] 06:06:00 Test Item Value Reference Range Interpretation [...] (BEAKER) (test code = 2801) BASIC METABOLIC [id number] 06:09:00 Test Item Value Reference Range Interpretation [...] S NOT APPLICABLE FOR DIALYSIS PATIEN TS. Project Analyst ID - [id number] ID - yfau86Ylfrpwfl ID - hfet32Phrpfgbh ID - tneh09Upqaprna ID - ztpi48Iszmyuap ID - tcbo61Wqzidfwt ID - uizv21Qkttpylw ID - lqvo33Nqcsyuzb ID - wpha46Upxwhwru ID - ztez07Lmmthybbzp7789-27-19 05:54:00 Test Item Value Reference Range Interpretation Comments Phosphorus (test code = 4.2 mg/dL 2.5-4.5 2777-1) BEKAH (test code = BEKAH) Project Analyst ID - rjqn58Wnmlhxts ID - xgks37Zlbojnpy ID - hkzq51Lhgbkwav ID - zres04 Lab Interpretation (test Normal code = 60073-2) [facility]2021-[facility]-11 05:54:00 Test Item Value Reference Range Interpretation Comments PHOSPHORUS (BEAKER) (test code = 4.2 mg/dL 2.5-4.5 604) Project Analyst ID - cwoq86Bhxlnbcz ID - eqqs61Wjljkish ID - ablf08Hknhzjcu ID - zres04 CBC W/PLT COUNT & AUTO [id number] 05:47:00 Test Item Value Reference Range Interpretation [...] H PERCENT (BEAKER) (test code = 2801) [id number] 15:01:00 Test Item Value Reference Range Interpretation Comments PTT (test code = 97633-0) 26.9 See_Comment Fi nal Information (Auto Output) [Automated mess age] The system [employer] generated this result transmitted ref erence range: 23.0 - 3 5.0 seconds. The re ference range was not u sed to interpret this result as normal/abnor mal. Lab Interpretation (test Normal code = 94040-5) [facility] Rosa[facility]TT2021-[facility]10 15:01:00 Test Item Value Reference Range Interpretation Comments PARTIAL THROMBOPLASTIN 26.9 seconds 23.0-35.0 Final Information TIME (BEAKER) (test (Auto Ou tput) code = 760) BASIC METABOLIC [id number] 07:06:00 Test Item Value Reference Range Interpretation [...] S NOT APPLICABLE FOR DIALYSIS PATIEN TS. Project Analyst ID - LITOOperator ID - LITOOperator ID - LITOOperator ID - LITOOperator ID - LITOOperator ID - LITOOperator ID - LITOOperator ID - LITOOperator ID - LITOOperator ID - LITOOperator ID - LITOOperator ID - LITOOperator ID - KRYSTA [id number] 06:03:00 Test Item Value Reference Range Interpretation Comments PHOSPHORUS (BEAKER) 4.2 mg/dL 2.5-4.5 Specimen markedly (test code = 604) hemolyzed Project Analyst ID - LITOOperator ID - LITOOperator ID - LITOOperator ID - LITOCBC W/PLT COUNT & AUTO [id number] 05:46:00 Test Item Value Reference Range Interpretation [...] CATH PLCMT (JUG/FEM) > 5 Y.O. WITH [id number] 16:14:00Reason for exam:->iv meds [facility] 1955 Sex: FFINAL REPORT Procedure: [...] the tract was dilated and a 7 Maldivian double lumen triple-lumen was placed with itstip in the upper portion of the right atrium. The catheter was then flushed and secured in place by means of sutures. CONCLUSION: Placement of triple-lumen central line. 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 The catheter was then flushed and secured in place by means of sutures. CONCLUSION: Placement of triple-lumen central line. Relatively high-grade stenoses in the lower portion of the right internal jug ular vein Signed: [facility] Ver[facility] Date/Time: 12/30/2020 16:14:05 Reading Location: [facility] Radiology Reading [facility], 1 VIEW, NON [id number] 07:49:00Reason for exam:->pneumoniaShould this be performed at the bedside?->Yes [facility] 1955 Sex: FFINAL REPORT Portable [...] MDReport Verified Date/Time: 12/30/2020 07:49:55 Reading Location: [facility] Radiology Reading Room COMPREHENSIVE METABOLIC [id number] 05:59:00 Test Item Value Reference Range Interpretation [...] S NOT APPLICABLE FOR DIALYSIS PATIEN TS. Project Analyst ID - dory37Kfuynery ID - refz02Eaktaash ID - rzrb03Eyalllnh ID - dydp72Jwqjpygr ID - msjp31Nkxdohnz ID - gqeh27Vjrxlplm ID - ynti33Lsaizucj ID - masg97Fpvrtmyh ID - gzjn12Qmbjjywa ID - eshc44Dxqyvwyh ID - itzb72Aciidfhd ID - uxva55Qykjbimf ID - znjt45Dfqpjeqs ID - oeot68Teijtzmj ID - axqx18Sgkbbrqy ID - dyxb76BNNFSQRHH2475-30-91 05:49:00 Test Item Value Reference Range Interpretation Comments MAGNESIUM (BEAKER) (test code = 1.8 mg/dL 1.5-3.0 627) Project Analyst ID - [id number] ID - aztc93Reyrmjpf ID - djnj46Gzwcqcyg ID - zdma02 [id number] 05:46:00 Test Item Value Reference Range Interpretation Comments PHOSPHORUS (BEAKER) (test code = 4.4 mg/dL 2.5-4.5 604) Project Analyst ID - [id number] W/PLT COUNT & AUTO [id number] 05:07:00 Test Item Value Reference Range Interpretation [...] code = 2801) CT, SPINE, CERVICAL, WO [id number] 14:29:00Unlisted Reason for Exam - Click Yes and Enter Reason Below->YesUnlisted Reason for Exam->post cervical laminectomy with new onset RUE pain [facility] 1955 Sex: FFINAL REPORT CT, [...] the right C6 nerve root. Signed: [facility] Verified Date/Time: 12/29/2020 14:29:28 Hepatitis B surface [id number] 13:29:00 Test Item Value Reference Interpretation Comments Range Hep B S Ab (test 118.3 See_Comment H [Automated code = 48003-9) message] The system which generated this result transmitted reference range : <8.0 mIU/mL. Th e reference range was not used to interpret this result as normal/abnormal . BEKAH (test code = Project Analyst ID - BEKAH) EMERSONOperator ID - DEAN Lab Interpretation Abnormal (test code = 48850-5) [facility] RosaHEPATITIS B SURFACE [id number] 13:29:00 Test Item Value Reference Range Interpretation Comments HEPATITIS B SURFACE ANTIBODY 118.3 mIU/mL <8.0 H (BEAKER) (test code = 647) Project Analyst ID - EMERSONOperator ID - EMERSONARTERIAL DOPPLER ARM, [id number] 09:03:00Reason for exam:->acute right upper extremity pain [facility] : 1955 Sex: FFINAL REPORT Right [...] CONCLUSION: Patent arterial system. Signed: Margo Reddy Verified Date/Time: 12/29/2020 09:03:46 Reading Location: [facility] Radiology Reading Room Arterial doppler arm, right [...] MDRbrentort Verified Date/Time: 12/29/2020 09:03:46 Reading Location: [facility] Radiology Reading Room Electronically signed by: MARGO REDDY M.D.on 12/29/2020 09:03 [facility] CenterVENOUS DOPPLER ARM, [id number] 08:59:00Reason for exam:- >acute pain right upper extremity [facility] : 1955 Sex: FFINAL REPORT Right [...] evidence of venous thrombosis. Signed: Margo Reddy Verified Date/Time: 12/29/2020 08:59:35 Reading Location: [facility] Reading Room Venous doppler arm, [id number] 08:59:00Interface, External Ris In - 12/29/2020 9:01 [...] evidence of venous thrombosis. Signed: Margo Reddy Verified Date/Time: 12/29/2020 08:59:35 Reading Location: [facility] Radiology Reading Room Electronically signedby: MARGO REDDY M.D. on 12/29/2020 08:59 [facility] CenterHepatitis B surface antigen 2020-12-29 06:52:00 Test Item Value Reference Range Interpretation Comments HBsAg Screen (test code Nonreactive Nonreactive = 5195-3) BEKAH (test code = BEKAH) Project Analyst ID - [id number] Lab Interpretation (test Normal code = 59529-1) [facility] B SURFACE [id number] 06:52:00 Test Item Value Reference Range Interpretation Comments HEPATITIS B SURFACE ANTIGEN (2) Nonreactive Nonreactive (BEAKER) (test code = 2585) Project Analyst ID - [id number], CHEST, 1 VIEW, NON [id number] 11:49:00Reason for exam:->post opShould this be performed at the bedside?->Yes [facility] 1955 Sex: FFINAL REPORT Portable [...] to discuss these findings. Signed: Margo Reddy MDRbrentort Verified Date/Time: 12/28/2020 11:49:46 Reading Location: [facility] RadiologyReading Room RAD, HIP, 2-3 VIEWS, LEFT, TO INCL PELVIS WHEN [id number] 10:32:00Reason for exam:->left hip and groin pain x 1 month [facility] : 1955 Sex: FFINAL REPORT Left [...] Reddy Verified Date/Time: 12/28/2020 10:32:44 Reading Location: [facility] Radiology Reading Room XR hip 2 views [id number] 10:32:00 Interface, External Ris In - 12/28/2020 [...] iliac crest. Signed: Margo Reddy MDReport Verified Date/Time: 12/28/2020 10:32:44 Reading Location: [facility] Radiology Reading Room [facility] CenterMAGNESIUM2021-07-07 06:34:00 Test Item Value Reference Range Interpretation Comments MAGNESIUM (BEAKER) (test code = 1.7 mg/dL 1.5-3.0 627) Project Analyst ID - [id number] ID - [id number] ID - JAMMD493Enqrsrxg ID - [id number] METABOLIC [id number] 06:34:00 Test Item Value Reference Range Interpretation [...] S NOT APPLICABLE FOR DIALYSIS PATIEN TS. Project Analyst ID - [id number] ID - BXHWI134Qsgozfox ID - LSWQM034Gvusuvtl ID - SVBMM184Hjkvajgh ID - MZSCJ593Faxlydle ID - GUFFZ782Stwmfhkv ID - BBJYU878Czhihvuv ID - ADOHE332Ziifrdex ID - JOAPY928Piglbphf ID - IYWOI908Brvcdpzt ID - UQNWV580Wuwrtwoa ID - URYGP713Izowvpsf ID - FSCCB954Ipltglpd ID - WELVA991Rrkqmxnc ID - GDXRW873Axkehiry ID - BVUWS782ZWY W/PLT COUNT & AUTO [id number] 05:49:00 Test Item Value Reference Range Interpretation [...] PERCENT (BEAKER) (test code = 2801) abdullahi SOTOudwkcx2280-46-64 16:06:00 Test Item Value Reference Range Interpretation Comments ABO Grouping (test code = 2588) B [id number] Rh Factor (test code = 2589) POS 12/27/2020, 1054 [facility] RosaFL, FLUORO, NON-SPECIFIC, UP TO 1 [id number] 12:50:00Reason for exam:->[facility] : 1955 Sex: FFluoroscopic unit utilized for a procedure performed in the OR. No interpretation was requested. Refer tothe operative report for findings. Refer to PACS for patient radiation dose information.FL fluoro non-specific up to 1 [id number] 12:50:00 Interface, External Ris In - 12/27/2020 12:50 PM CDTFluoroscopic unit utilized for a procedure performed in the OR. No interpretation was requested. Refer to the operative report for findings. Refer toPACS for patient radiation dose information.[facility] RosaType and screen, [id number] 09:27:00 Test Item Value Reference Range Interpretation Comments ABO/RH AUTOMATED (BEAKER) (test B POSITIVE ECHO code = 2260) Ab Scrn (test code = 890-4) NEGATIVE ECHO [facility] RosaPotassium2021-07-06 09:10:00 Test Item Value Reference Range Interpretation Comments Potassium (test code = 3.5 meq/L 3.6-5.5 L 2823-3) BEKAH (test code = BEKAH) Project Analyst ID - iusc00Kkbdubep ID - nfas93Xwfmotza ID - bjmm15Dfsiuryv ID - znmp04 Lab Interpretation (test Abnormal code = 27031-4) [facility] RosaPT/[id number] 09:10:00 Test Item Value Reference Interpretation Comments [...] (test code = 22.2 See_Comment L Final 06355-9) Information (Auto Output) [Automated message] The system [...] valves. Lab Interpretation Abnormal (test code = 06670-1) [facility] RosaPT/[id number] 09:10:00 Test Item Value Reference Range Interpretation Comments PROTIME (BEAKER) (test 11.6 seconds 9.3-12.0 Final Information code = 759) (Auto Output) INR (BEAKER) (test 1.05 See_Comment Final Inf ormation code = 370) (Auto Output) [Automated mess age] The system [employer] generated this result transmit melquiades reference range [...] is 2.5-3.5 for patients with mechanical heart valves.[id number] 09:10:00 Test Item Value Reference Range Interpretation Comments POTASSIUM (BEAKER) (test code = 3.5 meq/L 3.6-5.5 L 379) Project Analyst ID - eqaf96Tlkqwgmj ID - zurm92Zmonzhbd ID - sxgw46Rqhkmsjc ID - znmp04 BASIC METABOLIC [id number] 11:58:00 Test Item Value Reference Range Interpretation [...] 1092) DATA TO CALCULA TE ESTIMATED GFR. Project Analyst ID - [id number] ID - EQYPK726Rgduemzl ID - OJFBD683Cbwymbgs ID - JLTWF661Osirmbcw ID - PEKYG872Qjzjghgu ID - JXKMA406Lxncywpf ID - KQKGS793Vikdzffl ID - TYVHN817Gvvftibe ID - OYPWC889Ubzkkypx ID - DLSXY386Vjpwzicc ID - CXXFJ722Bcfucupw ID - UUKSD638Isjnrfgo ID - [id number] PT/[id number] 11:55:00 Test Item Value Reference Range Interpretation Comments PROTIME (BEAKER) (test 12.0 seconds 9.3-12.0 Final Information code = 759) (Auto Output) INR (BEAKER) (test 1.09 See_Comment Final Inf ormation code = 370) (Auto Output) [Automated mess age] The system [employer] generated this result transmit melquiades reference range [...] mechanical heart valves.CBC W/PLT COUNT & AUTO [id number] 11:42:00 Test Item Value Reference Range Interpretation [...] (BEAKER) (test code = 2801) BLOOD BANK [id number] 15:09:00 Test Item Value Reference Range Interpretation Comments ABO/Rh (test code = ABO/Rh) B POS [facility] [id number] 15:09:00 Test Item Value Reference Range Interpretation Comments Antibody Scrn (test Negative (05/26/20 9:09 code = Antibody Scrn) AM) [facility] [id number] 15:09:00 Test Item Value Reference Range Interpretation Comments Glucose Lvl (test code = Glucose Lvl) 84 70-99 [facility] [employer] [id number] 15:09:00 Test Item Value Reference Range Interpretation Comments BUN (test code = BUN) 20 7-22 [facility] [id number] 15:09:00 Test Item Value Reference Range Interpretation Comments Creatinine Lvl (test code = Creatinine 4.97 0.50-1.40 Lvl) [facility] [id number] 15:09:00 Test Item Value Reference Range Interpretation Comments Sodium Lvl (test code = Sodium Lvl) 138 135-145 [facility] [id number] 15:09:00 Test Item Value Reference Range Interpretation Comments Potassium Lvl (test code = Potassium 3.6 3.5-5.1 Lvl) [facility] [employer] [id number] 15:09:00 Test Item Value Reference Range Interpretation Comments Chloride Lvl (test code = Chloride Lvl) 107 95-109 [facility] [employer] [id number] 15:09:00 Test Item Value Reference Range Interpretation Comments CO2 (test code = CO2) 24 24-32 [facility] [id number] 15:09:00 Test Item Value Reference Range Interpretation Comments Calcium Lvl (test code = Calcium Lvl) 9.7 8.5-10.5 [facility] [employer] [id number] 15:09:00 Test Item Value Reference Range Interpretation Comments AGAP (test code = AGAP) 10.6 10.0-20.0 [facility] [employer] [id number] 15:09:00 Test Item Value Reference Range Interpretation Comments eGFR (test code = eGFR) 10 [facility] [employer] [id number] 15:09:00 Test Item Value Reference Range Interpretation Comments ABO/Rh (test code = ABO/Rh) B POS [facility] [employer] [id number] 15:09:00 Test Item Value Reference Range Interpretation Comments Antibody Scrn (test Negative (05/26/20 9:09 code = Antibody Scrn) AM) [facility] [employer] [id number] 15:09:00 Test Item Value Reference Range Interpretation Comments Glucose Lvl (test code = Glucose Lvl) 84 70-99 [facility] [employer] [id number] 15:09:00 Test Item Value Reference Range Interpretation Comments BUN (test code = BUN) 20 - [facility] [employer] [id number] 15:09:00 Test Item Value Reference Range Interpretation Comments Creatinine Lvl (test code = Creatinine 4.97 0.50-1.40 Lvl) [facility] [employer] [id number] 15:09:00 Test Item Value Reference Range Interpretation Comments Sodium Lvl (test code = Sodium Lvl) 138 135-145 [facility] [employer] [id number] 15:09:00 Test Item Value Reference Range Interpretation Comments Potassium Lvl (test code = Potassium 3.6 3.5-5.1 Lvl) [facility] [employer] [id number] 15:09:00 Test Item Value Reference Range Interpretation Comments Chloride Lvl (test code = Chloride Lvl) 107 95-109 [facility] [employer] [id number] 15:09:00 Test Item Value Reference Range Interpretation Comments CO2 (test code = CO2) 24 24-32 [facility] [employer] [id number] 15:09:00 Test Item Value Reference Range Interpretation Comments Calcium Lvl (test code = Calcium Lvl) 9.7 8.5-10.5 [facility] [employer] [id number] 15:09:00 Test Item Value Reference Range Interpretation Comments AGAP (test code = AGAP) 10.6 10.0-20.0 [facility] [employer] [id number] 15:09:00 Test Item Value Reference Range Interpretation Comments eGFR (test code = eGFR) 10 [facility] [employer] [id number] 15:09:00 Test Item Value Reference Range Interpretation Comments ABO/Rh (test code = ABO/Rh) B POS [facility] [employer] [id number] 15:09:00 Test Item Value Reference Range Interpretation Comments Antibody Scrn (test Negative (05/26/20 9:09 code = Antibody Scrn) AM) [facility] [employer] [id number] 15:09:00 Test Item Value Reference Range Interpretation Comments Glucose Lvl (test code = Glucose Lvl) 84 70-99 [facility] [employer] [id number] 15:09:00 Test Item Value Reference Range Interpretation Comments BUN (test code = BUN) 20 7- [facility] [employer] [id number] 15:09:00 Test Item Value Reference Range Interpretation Comments Creatinine Lvl (test code = Creatinine 4.97 0.50-1.40 Lvl) [facility] [employer] [id number] 15:09:00 Test Item Value Reference Range Interpretation Comments Sodium Lvl (test code = Sodium Lvl) 138 135-145 [facility] [employer] [id number] 15:09:00 Test Item Value Reference Range Interpretation Comments Potassium Lvl (test code = Potassium 3.6 3.5-5.1 Lvl) [facility] [id number] 15:09:00 Test Item Value Reference Range Interpretation Comments Chloride Lvl (test code = Chloride Lvl) 107 95-109 [facility] [employer] [id number] 15:09:00 Test Item Value Reference Range Interpretation Comments CO2 (test code = CO2) 24 24-32 [facility] [id number] 15:09:00 Test Item Value Reference Range Interpretation Comments Calcium Lvl (test code = Calcium Lvl) 9.7 8.5-10.5 [facility] [employer] [id number] 15:09:00 Test Item Value Reference Range Interpretation Comments AGAP (test code = AGAP) 10.6 10.0-20.0 [facility] [employer] [id number] 15:09:00 Test Item Value Reference Range Interpretation Comments eGFR (test code = eGFR) 10 [facility] [id number] 15:09:00 Test Item Value Reference Range Interpretation Comments ABO/Rh (test code = ABO/Rh) B POS [facility] [employer] [facility] [id number] 15:09:00 Test Item Value Reference Range Interpretation Comments Antibody Scrn (test Negative (05/26/20 9:09 code = Antibody Scrn) AM) [facility] [id number] 15:09:00 Test Item Value Reference Range Interpretation Comments Glucose Lvl (test code = Glucose Lvl) 84 70-99 [facility] [id number] 15:09:00 Test Item Value Reference Range Interpretation Comments BUN (test code = BUN) 20 7-22 [facility] [id number] 15:09:00 Test Item Value Reference Range Interpretation Comments Creatinine Lvl (test code = Creatinine 4.97 0.50-1.40 Lvl) [facility] [employer] [id number] 15:09:00 Test Item Value Reference Range Interpretation Comments Sodium Lvl (test code = Sodium Lvl) 138 135-145 [facility] [employer] [id number] 15:09:00 Test Item Value Reference Range Interpretation Comments Potassium Lvl (test code = Potassium 3.6 3.5-5.1 Lvl) [facility] [employer] [id number] 15:09:00 Test Item Value Reference Range Interpretation Comments Chloride Lvl (test code = Chloride Lvl) 107 95-109 [facility] [employer] [id number] 15:09:00 Test Item Value Reference Range Interpretation Comments CO2 (test code = CO2) 24 24-32 [facility] [employer] [id number] 15:09:00 Test Item Value Reference Range Interpretation Comments Calcium Lvl (test code = Calcium Lvl) 9.7 8.5-10.5 [facility] [employer] [id number] 15:09:00 Test Item Value Reference Range Interpretation Comments AGAP (test code = AGAP) 10.6 10.0-20.0 [facility] [employer] [id number] 15:09:00 Test Item Value Reference Range Interpretation Comments eGFR (test code = eGFR) 10 [facility] [employer] [id number] 15:09:00 Test Item Value Reference Range Interpretation Comments ABO/Rh (test code = ABO/Rh) B POS [facility] [employer] [id number] 15:09:00 Test Item Value Reference Range Interpretation Comments Antibody Scrn (test Negative (05/26/20 9:09 code = Antibody Scrn) AM) [facility] [employer] [id number] 15:09:00 Test Item Value Reference Range Interpretation Comments Glucose Lvl (test code = Glucose Lvl) 84 70-99 [facility] [employer] [id number] 15:09:00 Test Item Value Reference Range Interpretation Comments BUN (test code = BUN) 20 7- [facility] [id number] 15:09:00 Test Item Value Reference Range Interpretation Comments Creatinine Lvl (test code = Creatinine 4.97 0.50-1.40 Lvl) [facility] [employer] [id number] 15:09:00 Test Item Value Reference Range Interpretation Comments Sodium Lvl (test code = Sodium Lvl) 138 135-145 [facility] [employer] [id number] 15:09:00 Test Item Value Reference Range Interpretation Comments Potassium Lvl (test code = Potassium 3.6 3.5-5.1 Lvl) [facility] [employer] [id number] 15:09:00 Test Item Value Reference Range Interpretation Comments Chloride Lvl (test code = Chloride Lvl) 107 95-109 [facility] [employer] [id number] 15:09:00 Test Item Value Reference Range Interpretation Comments CO2 (test code = CO2) 24 24-32 [facility] [employer] [id number] 15:09:00 Test Item Value Reference Range Interpretation Comments Calcium Lvl (test code = Calcium Lvl) 9.7 8.5-10.5 [facility] [employer] [id number] 15:09:00 Test Item Value Reference Range Interpretation Comments AGAP (test code = AGAP) 10.6 10.0-20.0 [facility] [employer] [id number] 15:09:00 Test Item Value Reference Range Interpretation Comments eGFR (test code = eGFR) 10 [facility] [employer] [id number] 15:09:00 Test Item Value Reference Range Interpretation Comments ABO/Rh (test code = ABO/Rh) B POS [facility] [employer] [id number] 15:09:00 Test Item Value Reference Range Interpretation Comments Antibody Scrn (test Negative (05/26/20 9:09 code = Antibody Scrn) AM) [facility] [employer] [id number] 15:09:00 Test Item Value Reference Range Interpretation Comments Glucose Lvl (test code = Glucose Lvl) 84 70-99 [facility] [employer] [id number] 15:09:00 Test Item Value Reference Range Interpretation Comments BUN (test code = BUN) 20 7-22 [facility] [employer] [id number] 15:09:00 Test Item Value Reference Range Interpretation Comments Creatinine Lvl (test code = Creatinine 4.97 0.50-1.40 Lvl) [facility] [employer] [id number] 15:09:00 Test Item Value Reference Range Interpretation Comments Sodium Lvl (test code = Sodium Lvl) 138 135-145 [facility] [employer] [id number] 15:09:00 Test Item Value Reference Range Interpretation Comments Potassium Lvl (test code = Potassium 3.6 3.5-5.1 Lvl) [facility] [id number] 15:09:00 Test Item Value Reference Range Interpretation Comments Chloride Lvl (test code = Chloride Lvl) 107 95-109 [facility] [id number] 15:09:00 Test Item Value Reference Range Interpretation Comments CO2 (test code = CO2) 24 24-32 [facility] [employer] [id number] 15:09:00 Test Item Value Reference Range Interpretation Comments Calcium Lvl (test code = Calcium Lvl) 9.7 8.5-10.5 [facility] [employer] [id number] 15:09:00 Test Item Value Reference Range Interpretation Comments AGAP (test code = AGAP) 10.6 10.0-20.0 [facility] [id number] 15:09:00 Test Item Value Reference Range Interpretation Comments eGFR (test code = eGFR) 10 [facility] [id number] 15:09:00 Test Item Value Reference Range Interpretation Comments ABO/Rh (test code = ABO/Rh) B POS [facility] [employer] [id number] 15:09:00 Test Item Value Reference Range Interpretation Comments Antibody Scrn (test Negative (05/26/20 9:09 code = Antibody Scrn) AM) [facility] [id number] 15:09:00 Test Item Value Reference Range Interpretation Comments Glucose Lvl (test code = Glucose Lvl) 84 70-99 [facility] [id number] 15:09:00 Test Item Value Reference Range Interpretation Comments BUN (test code = BUN) 20 7-22 [facility] [id number] 15:09:00 Test Item Value Reference Range Interpretation Comments Creatinine Lvl (test code = Creatinine 4.97 0.50-1.40 Lvl) [facility] [id number] 15:09:00 Test Item Value Reference Range Interpretation Comments Sodium Lvl (test code = Sodium Lvl) 138 135-145 [facility] [id number] 15:09:00 Test Item Value Reference Range Interpretation Comments Potassium Lvl (test code = Potassium 3.6 3.5-5.1 Lvl) [place] [id number] 15:09:00 Test Item Value Reference Range Interpretation Comments Chloride Lvl (test code = Chloride Lvl) 107 95-109 [place] [id number] 15:09:00 Test Item Value Reference Range Interpretation Comments CO2 (test code = CO2) 24 24-32 [place] [id number] 15:09:00 Test Item Value Reference Range Interpretation Comments Calcium Lvl (test code = Calcium Lvl) 9.7 8.5-10.5 [place] [address]-12-03 15:09:00 Test Item Value Reference Range Interpretation Comments AGAP (test code = AGAP) 10.6 10.0-20.0 [place] [id number] 15:09:00 Test Item Value Reference Range Interpretation Comments eGFR (test code = eGFR) 10 [place] [address]-12-03 13:47:00 Test Item Value Reference Range Interpretation Comments Coronavirus (COVID-19) Not Detected (05/26/20 KAYLEE (test code = 7:47 AM) Coronavirus (COVID-19) KAYLEE) [place] [address]-12-03 13:47:00 Test Item Value Reference Range Interpretation Comments Coronavirus (COVID-19) Not Detected (05/26/20 KAYLEE (test code = 7:47 AM) Coronavirus (COVID-19) KAYLEE) [address]12-03 13:47:00 Test Item Value Reference Range Interpretation Comments Coronavirus (COVID-19) Not Detected (05/26/20 KAYLEE (test code = 7:47 AM) Coronavirus (COVID-19) KAYLEE) [place] [address]-12-03 13:47:00 Test Item Value Reference Range Interpretation Comments Coronavirus (COVID-19) Not Detected (05/26/20 KAYLEE (test code = 7:47 AM) Coronavirus (COVID-19) KAYLEE) [place] [address]-12-03 13:47:00 Test Item Value Reference Range Interpretation Comments Coronavirus (COVID-19) Not Detected (05/26/20 KAYLEE (test code = 7:47 AM) Coronavirus (COVID-19) KAYLEE) [place] [address]-12-03 13:47:00 Test Item Value Reference Range Interpretation Comments Coronavirus (COVID-19) Not Detected (05/26/20 KAYLEE (test code = 7:47 AM) Coronavirus (COVID-19) KAYLEE) [facility] [id number] 13:47:00 Test Item Value Reference Range Interpretation Comments Coronavirus (COVID-19) Not Detected (05/26/20 KAYLEE (test code = 7:47 AM) Coronavirus (COVID-19) KAYLEE) [facility] [employer] [id number] 15:31:00 Test Item Value Reference Range Interpretation Comments ABO/Rh (test code = ABO/Rh) B POS [facility] [employer] [id number] 15:31:00 Test Item Value Reference Range Interpretation Comments Antibody Scrn (test Negative (05/17/20 code = Antibody Scrn) 9:31 AM) [facility] [employer] [id number] 15:31:00 Test Item Value Reference Range Interpretation Comments Glucose Lvl (test code = Glucose Lvl) 91 70-99 [facility] [employer] [id number] 15:31:00 Test Item Value Reference Range Interpretation Comments BUN (test code = BUN) 29 7-22 [employer] [id number] 15:31:00 Test Item Value Reference Range Interpretation Comments Creatinine Lvl (test code = Creatinine 5.79 0.50-1.40 Lvl) [employer] [id number] 15:31:00 Test Item Value Reference Range Interpretation Comments Sodium Lvl (test code = Sodium Lvl) 141 135-145 [facility] [employer] [id number] 15:31:00 Test Item Value Reference Range Interpretation Comments Potassium Lvl (test code = Potassium 3.9 3.5-5.1 Lvl) [employer] [id number] 15:31:00 Test Item Value Reference Range Interpretation Comments Chloride Lvl (test code = Chloride Lvl) 108 95-109 [facility] [employer] [id number] 15:31:00 Test Item Value Reference Range Interpretation Comments CO2 (test code = CO2) 27 24-32 [employer] [id number] 15:31:00 Test Item Value Reference Range Interpretation Comments Calcium Lvl (test code = Calcium Lvl) 9.9 8.5-10.5 [facility] [id number] 15:31:00 Test Item Value Reference Range Interpretation Comments AGAP (test code = AGAP) 9.9 10.0-20.0 [facility] [id number] 15:31:00 Test Item Value Reference Range Interpretation Comments eGFR (test code = eGFR) 7 [facility]bIWUBUHDTVD1327[facility]56-[facility] 15:31:00 Test Item Value Reference Range Interpretation Comments WBC (test code = WBC) 5.2 3.7-10.4 [facility] HospitalPvtceewRBRRPIRSEU6158-25-28 15:31:00 Test Item Value Reference Range Interpretation Comments RBC (test code = RBC) 3.61 4.20-5.40 [facility] HospitalGjfdxilJJBEZTGFAC7490-69-50 15:31:00 Test Item Value Reference Range Interpretation Comments Hgb (test code = Hgb) 10.4 12.0-16.0 [place] 790790-11-24 15:31:00 Test Item Value Reference Range Interpretation Comments Hct (test code = Hct) 33.1 36.0-48.0 [facility] HospitalIsqnhhuEAVCKMNQPQ3330-12-08 15:31:00 Test Item Value Reference Range Interpretation Comments MCV (test code = MCV) 91.8 80.0-98.0 [facility] HospitalTzygdllQRCYXNPIJF6017-97-71 15:31:00 Test Item Value Reference Range Interpretation Comments MCH (test code = MCH) 28.8 pg 27.0-31.0 [facility] HospitalCsepngiIMUSJIEZLF7399-97-32 15:31:00 Test Item Value Reference Range Interpretation Comments MCHC (test code = MCHC) 31.3 32.0-36.0 [facility] [id number] 15:31:00 Test Item Value Reference Range Interpretation Comments RDW (test code = RDW) 15.9 11.5-14.5 [facility] HospitalRrdscnvEVDITATVRJ9216-60-74 15:31:00 Test Item Value Reference Range Interpretation Comments Platelet (test code = Platelet) 180 133-450 [facility] HospitalLzjczlsUZEGQZZUIX3528-27-51 15:31:00 Test Item Value Reference Range Interpretation Comments MPV (test code = MPV) 9.2 7.4-10.4 [facility] HospitalPnwjhhpUIMJXXVPAM8628-55-04 15:31:00 Test Item Value Reference Range Interpretation Comments PT (test code = PT) 14.8 s 12.0-14.7 [facility] HospitalZztgskoEAYXGRNMKO8108-14-42 15:31:00 Test Item Value Reference Range Interpretation Comments INR (test code = INR) 1.15 1 0.85-1.17 [place] 790790-11-24 15:31:00 Test Item Value Reference Range Interpretation Comments PTT (test code = PTT) 29.5 s 22.9-35.8 [place] 790790-11-24 15:31:00 Test Item Value Reference Range Interpretation Comments Segs (test code = Segs) 74.6 45.0-75.0 [place] 790790-11-24 15:31:00 Test Item Value Reference Range Interpretation Comments Lymphocytes (test code = Lymphocytes) 11.0 20.0-40.0 [place] 790790-11-24 15:31:00 Test Item Value Reference Range Interpretation Comments Monocytes (test code = Monocytes) 11.0 2.0-12.0 [facility] HospitalCvqxwwyGULIDOBEMG1531-11-57 15:31:00 Test Item Value Reference Range Interpretation Comments Eosinophils (test code = 2.6 See_Comment [A utomated message] The Eosinophils) system which ge nerated this result tra nsmitted reference range : <=4.0. The reference r eileen was not used to int erpret this result as normal/abnormal . [facility] HospitalSabjscrGNIILWNGEI7424-79-48 15:31:00 Test Item Value Reference Range Interpretation Comments Basophils (test code = 0.8 See_Comment [Aut omated message] The Basophils) system which ge nerated this result tra nsmitted reference range : <=1.0. The reference r eileen was not used to int erpret this result as normal/abnormal . [facility] HospitalIfgiordKNYSAWIBUJ0441-66-25 15:31:00 Test Item Value Reference Range Interpretation Comments Neutrophils # (test code = Neutrophils 3.9 1.5-8.1 #) [facility] HospitalEacobokPMVDDXDVWP8666-60-98 15:31:00 Test Item Value Reference Range Interpretation Comments Lymphocytes # (test code = Lymphocytes 0.6 1.0-5.5 #) [facility] HospitalYockiqmVKKWJSDANF6699-31-36 15:31:00 Test Item Value Reference Range Interpretation Comments Monocytes # (test code 0.6 See_Comment [Aut omated message] The = Monocytes #) system which generated this result tra nsmitted reference range : <=0.8. The reference r eileen was not used to int erpret this result as normal/abnormal . [facility]grsiwfTQXSNRHAWJ5296-33-52 15:31:00 Test Item Value Reference Range Interpretation Comments Eosinophils # (test code 0.1 See_Comment [A utomated message] The = Eosinophils #) system whic h generated this result tra nsmitted reference range : <=0.5. The reference r eileen was not used to int erpret this result as normal/abnormal . [facility] [employer] [id number] 15:31:00 Test Item Value Reference Range Interpretation Comments ABO/Rh (test code = ABO/Rh) B POS [facility] [employer] [id number] 15:31:00 Test Item Value Reference Range Interpretation Comments Antibody Scrn (test Negative (05/17/20 code = Antibody Scrn) 9:31 AM) [facility] [employer] [id number] 15:31:00 Test Item Value Reference Range Interpretation Comments Glucose Lvl (test code = Glucose Lvl) 91 70-99 [facility] [employer] [id number] 15:31:00 Test Item Value Reference Range Interpretation Comments BUN (test code = BUN) 29 7-22 [facility] [employer] [id number] 15:31:00 Test Item Value Reference Range Interpretation Comments Creatinine Lvl (test code = Creatinine 5.79 0.50-1.40 Lvl) [facility] [employer] [id number] 15:31:00 Test Item Value Reference Range Interpretation Comments Sodium Lvl (test code = Sodium Lvl) 141 135-145 [facility] [employer] [id number] 15:31:00 Test Item Value Reference Range Interpretation Comments Potassium Lvl (test code = Potassium 3.9 3.5-5.1 Lvl) [facility] [employer] [id number] 15:31:00 Test Item Value Reference Range Interpretation Comments Chloride Lvl (test code = Chloride Lvl) 108 95-109 [facility] [employer] [id number] 15:31:00 Test Item Value Reference Range Interpretation Comments CO2 (test code = CO2) 27 24-32 [facility]2020-11-24 15:31:00 Test Item Value Reference Range Interpretation Comments Calcium Lvl (test code = Calcium Lvl) 9.9 8.5-10.5 [facility] [id number] 15:31:00 Test Item Value Reference Range Interpretation Comments AGAP (test code = AGAP) 9.9 10.0-20.0 [facility]2020-11-24 15:31:00 Test Item Value Reference Range Interpretation Comments eGFR (test code = eGFR) 7 [facility] HospitalBqywxbgXRXKATADKR9003-00-71 15:31:00 Test Item Value Reference Range Interpretation Comments WBC (test code = WBC) 5.2 3.7-10.4 [facility] HospitalYzeibjgQWUGSDIPRF0928-67-26 15:31:00 Test Item Value Reference Range Interpretation Comments RBC (test code = RBC) 3.61 4.20-5.40 [facility] HospitalCwgjgklXOSJLJCEDP8850-91-51 15:31:00 Test Item Value Reference Range Interpretation Comments Hgb (test code = Hgb) 10.4 12.0-16.0 [facility] HospitalNiuqksqILKSOBHHHH4166-28-51 15:31:00 Test Item Value Reference Range Interpretation Comments Hct (test code = Hct) 33.1 36.0-48.0 [facility] HospitalKuuiitfBCFJDXSZAU1426-13-51 15:31:00 Test Item Value Reference Range Interpretation Comments MCV (test code = MCV) 91.8 80.0-98.0 [facility] HospitalSaoslrjFXUDHPJORY8707-50-38 15:31:00 Test Item Value Reference Range Interpretation Comments MCH (test code = MCH) 28.8 pg 27.0-31.0 [facility] HospitalNpittxfCNXKAKJQYX1967-50-63 15:31:00 Test Item Value Reference Range Interpretation Comments MCHC (test code = MCHC) 31.3 32.0-36.0 [facility] HospitalPvspbvqDKKSMRXTKN5393-43-17 15:31:00 Test Item Value Reference Range Interpretation Comments RDW (test code = RDW) 15.9 11.5-14.5 [facility] HospitalEleoizaUHHHGOMRLK0451-48-76 15:31:00 Test Item Value Reference Range Interpretation Comments Platelet (test code = Platelet) 180 133-450 [facility] HospitalAfmyswaFAASWPUHYJ3370-53-19 15:31:00 Test Item Value Reference Range Interpretation Comments MPV (test code = MPV) 9.2 7.4-10.4 [facility] HospitalYxdezhyROBYZHKQIS0095-89-95 15:31:00 Test Item Value Reference Range Interpretation Comments PT (test code = PT) 14.8 s 12.0-14.7 [facility] HospitalPxgvjneMNVEYUXDCS6223-22-92 15:31:00 Test Item Value Reference Range Interpretation Comments INR (test code = INR) 1.15 1 0.85-1.17 [facility] HospitalLvwpnqcSYFBOLEWAR5229-42-61 15:31:00 Test Item Value Reference Range Interpretation Comments PTT (test code = PTT) 29.5 s 22.9-35.8 [facility] HospitalDipthfqSVALGILOXD7099-61-40 15:31:00 Test Item Value Reference Range Interpretation Comments Segs (test code = Segs) 74.6 45.0-75.0 [facility] HospitalVfhzplmDGDFXJAXIT0489-43-81 15:31:00 Test Item Value Reference Range Interpretation Comments Lymphocytes (test code = Lymphocytes) 11.0 20.0-40.0 [facility] HospitalHvzokerOLEEEAUYNY5599-75-43 15:31:00 Test Item Value Reference Range Interpretation Comments Monocytes (test code = Monocytes) 11.0 2.0-12.0 [facility] HospitalZqmxbmdDIAKOUEUSU0775-07-87 15:31:00 Test Item Value Reference Range Interpretation Comments Eosinophils (test code = 2.6 See_Comment [A utomated message] The Eosinophils) system which ge nerated this result tra nsmitted reference range : <=4.0. The reference r eileen was not used to int erpret this result as normal/abnormal . [facility] HospitalSxwoofrPGGEKJFMIH3731-41-30 15:31:00 Test Item Value Reference Range Interpretation Comments Basophils (test code = 0.8 See_Comment [Aut omated message] The Basophils) system which ge nerated this result tra nsmitted reference range : <=1.0. The reference r eileen was not used to int erpret this result as normal/abnormal . [facility] HospitalWoeoejxITLWBWOFMR1245-57-31 15:31:00 Test Item Value Reference Range Interpretation Comments Neutrophils # (test code = Neutrophils 3.9 1.5-8.1 #) [facility] HospitalFpwbozjPGECTSYBLA5576-90-89 15:31:00 Test Item Value Reference Range Interpretation Comments Lymphocytes # (test code = Lymphocytes 0.6 1.0-5.5 #) [facility] HospitalVmndcjfJGBLAALXTK0468-88-92 15:31:00 Test Item Value Reference Range Interpretation Comments Monocytes # (test code 0.6 See_Comment [Aut omated message] The = Monocytes #) system which generated this result tra nsmitted reference range : <=0.8. The reference r eileen was not used to int erpret this result as normal/abnormal . [facility] HospitalDdxzyroTGUDVZQDUA2064-46-52 15:31:00 Test Item Value Reference Range Interpretation Comments Eosinophils # (test code 0.1 See_Comment [A utomated message] The = Eosinophils #) system whic h generated this result tra nsmitted reference range : <=0.5. The reference r eileen was not used to int erpret this result as normal/abnormal . [facility] [employer] [id number] 15:31:00 Test Item Value Reference Range Interpretation Comments ABO/Rh (test code = ABO/Rh) B POS [facility] [employer] [id number] 15:31:00 Test Item Value Reference Range Interpretation Comments Antibody Scrn (test Negative (05/17/20 code = Antibody Scrn) 9:31 AM) [facility] [id number] 15:31:00 Test Item Value Reference Range Interpretation Comments Glucose Lvl (test code = Glucose Lvl) 91 70-99 [facility] [id number] 15:31:00 Test Item Value Reference Range Interpretation Comments BUN (test code = BUN) 29 7-22 [facility] [employer] [id number] 15:31:00 Test Item Value Reference Range Interpretation Comments Creatinine Lvl (test code = Creatinine 5.79 0.50-1.40 Lvl) [facility] [id number] 15:31:00 Test Item Value Reference Range Interpretation Comments Sodium Lvl (test code = Sodium Lvl) 141 135-145 [facility] [employer] [id number] 15:31:00 Test Item Value Reference Range Interpretation Comments Potassium Lvl (test code = Potassium 3.9 3.5-5.1 Lvl) [facility] [id number] 15:31:00 Test Item Value Reference Range Interpretation Comments Chloride Lvl (test code = Chloride Lvl) 108 95-109 [facility]2020-11-24 15:31:00 Test Item Value Reference Range Interpretation Comments CO2 (test code = CO2) 27 24-32 [place] [id number] 15:31:00 Test Item Value Reference Range Interpretation Comments Calcium Lvl (test code = Calcium Lvl) 9.9 8.5-10.5 [facility]2020-11-24 15:31:00 Test Item Value Reference Range Interpretation Comments AGAP (test code = AGAP) 9.9 10.0-20.0 [facility]2020-11-24 15:31:00 Test Item Value Reference Range Interpretation Comments eGFR (test code = eGFR) 7 [facility] HospitalKyparevTMAKROYHVX8951-54-42 15:31:00 Test Item Value Reference Range Interpretation Comments WBC (test code = WBC) 5.2 3.7-10.4 [place] 790790-11-24 15:31:00 Test Item Value Reference Range Interpretation Comments RBC (test code = RBC) 3.61 4.20-5.40 [place] 790790-11-24 15:31:00 Test Item Value Reference Range Interpretation Comments Hgb (test code = Hgb) 10.4 12.0-16.0 [place] 790790-11-24 15:31:00 Test Item Value Reference Range Interpretation Comments Hct (test code = Hct) 33.1 36.0-48.0 [place] 790790-11-24 15:31:00 Test Item Value Reference Range Interpretation Comments MCV (test code = MCV) 91.8 80.0-98.0 [place] 790790-11-24 15:31:00 Test Item Value Reference Range Interpretation Comments MCH (test code = MCH) 28.8 pg 27.0-31.0 [place] 790790-11-24 15:31:00 Test Item Value Reference Range Interpretation Comments MCHC (test code = MCHC) 31.3 32.0-36.0 [place] 790790-11-24 15:31:00 Test Item Value Reference Range Interpretation Comments RDW (test code = RDW) 15.9 11.5-14.5 [place] 790790-11-24 15:31:00 Test Item Value Reference Range Interpretation Comments Platelet (test code = Platelet) 180 133-450 [facility] HospitalZbnbgciBGJYVNMZQB3087-01-24 15:31:00 Test Item Value Reference Range Interpretation Comments MPV (test code = MPV) 9.2 7.4-10.4 [facility] HospitalQxgljfvVQHGIYZTET2532-22-86 15:31:00 Test Item Value Reference Range Interpretation Comments PT (test code = PT) 14.8 s 12.0-14.7 [facility] HospitalZavvqqlBNCDCJRTMC2671-56-55 15:31:00 Test Item Value Reference Range Interpretation Comments INR (test code = INR) 1.15 1 0.85-1.17 [facility]FcxpborIGEPXHYOIH9569-87-29 15:31:00 Test Item Value Reference Range Interpretation Comments PTT (test code = PTT) 29.5 s 22.9-35.8 [facility] HospitalDacmnjtBJMCTZMXLI0028-35-46 15:31:00 Test Item Value Reference Range Interpretation Comments Segs (test code = Segs) 74.6 45.0-75.0 [facility] HospitalVjvwrioEHUZOCCDNH7572-54-80 15:31:00 Test Item Value Reference Range Interpretation Comments Lymphocytes (test code = Lymphocytes) 11.0 20.0-40.0 [facility] HospitalGpaccbiTMPROKKQUQ2354-95-71 15:31:00 Test Item Value Reference Range Interpretation Comments Monocytes (test code = Monocytes) 11.0 2.0-12.0 [facility] HospitalEwxfdpaDHRFMXUFAA3024-57-32 15:31:00 Test Item Value Reference Range Interpretation Comments Eosinophils (test code = 2.6 See_Comment [A utomated message] The Eosinophils) system which ge nerated this result tra nsmitted reference range : <=4.0. The reference r eileen was not used to int erpret this result as normal/abnormal . [facility] HospitalRouqsrkKBAEYGQTTE4836-17-64 15:31:00 Test Item Value Reference Range Interpretation Comments Basophils (test code = 0.8 See_Comment [Aut omated message] The Basophils) system which ge nerated this result tra nsmitted reference range : <=1.0. The reference r eileen was not used to int erpret this result as normal/abnormal . [facility] HospitalGwkkcgdOOMEKUBQJZ8036-92-97 15:31:00 Test Item Value Reference Range Interpretation Comments Neutrophils # (test code = Neutrophils 3.9 1.5-8.1 #) [place] 790790-11-24 15:31:00 Test Item Value Reference Range Interpretation Comments Lymphocytes # (test code = Lymphocytes 0.6 1.0-5.5 #) [facility] HospitalNbactcnSFPYPNUCPU4986-49-76 15:31:00 Test Item Value Reference Range Interpretation Comments Monocytes # (test code 0.6 See_Comment [Aut omated message] The = Monocytes #) system which generated this result tra nsmitted reference range : <=0.8. The reference r eileen was not used to int erpret this result as normal/abnormal . [facility] HospitalBxgagfxASODRDVXBT2918-07-56 15:31:00 Test Item Value Reference Range Interpretation Comments Eosinophils # (test code 0.1 See_Comment [A utomated message] The = Eosinophils #) system whic h generated this result tra nsmitted reference range : <=0.5. The reference r eileen was not used to int erpret this result as normal/abnormal . [facility] [id number] 15:31:00 Test Item Value Reference Range Interpretation Comments ABO/Rh (test code = ABO/Rh) B POS [facility] [employer] [facility] [id number] 15:31:00 Test Item Value Reference Range Interpretation Comments Antibody Scrn (test Negative (05/17/20 code = Antibody Scrn) 9:31 AM) [facility] [id number] 15:31:00 Test Item Value Reference Range Interpretation Comments Glucose Lvl (test code = Glucose Lvl) 91 70-99 [facility] [id number] 15:31:00 Test Item Value Reference Range Interpretation Comments BUN (test code = BUN) 29 7-22 [facility] [id number] 15:31:00 Test Item Value Reference Range Interpretation Comments Creatinine Lvl (test code = Creatinine 5.79 0.50-1.40 Lvl) [facility] [id number] 15:31:00 Test Item Value Reference Range Interpretation Comments Sodium Lvl (test code = Sodium Lvl) 141 135-145 [facility] [id number] 15:31:00 Test Item Value Reference Range Interpretation Comments Potassium Lvl (test code = Potassium 3.9 3.5-5.1 Lvl) [facility] [id number] 15:31:00 Test Item Value Reference Range Interpretation Comments Chloride Lvl (test code = Chloride Lvl) 108 95-109 [facility]2020-11-24 15:31:00 Test Item Value Reference Range Interpretation Comments CO2 (test code = CO2) 27 24-32 [place] 076080-11-24 15:31:00 Test Item Value Reference Range Interpretation Comments Calcium Lvl (test code = Calcium Lvl) 9.9 8.5-10.5 [place] 076080-11-24 15:31:00 Test Item Value Reference Range Interpretation Comments AGAP (test code = AGAP) 9.9 10.0-20.0 [facility]2020-11-24 15:31:00 Test Item Value Reference Range Interpretation Comments eGFR (test code = eGFR) 7 [facility] HospitalCigxcobFBCHETVRHP8304-29-14 15:31:00 Test Item Value Reference Range Interpretation Comments WBC (test code = WBC) 5.2 3.7-10.4 [facility] HospitalLzcximrNOETFJJMCA3630-38-66 15:31:00 Test Item Value Reference Range Interpretation Comments RBC (test code = RBC) 3.61 4.20-5.40 [facility] HospitalPbdqvvtPRFUDWNIEH6765-11-51 15:31:00 Test Item Value Reference Range Interpretation Comments Hgb (test code = Hgb) 10.4 12.0-16.0 [place] 790790-11-24 15:31:00 Test Item Value Reference Range Interpretation Comments Hct (test code = Hct) 33.1 36.0-48.0 [place] 790790-11-24 15:31:00 Test Item Value Reference Range Interpretation Comments MCV (test code = MCV) 91.8 80.0-98.0 [place] 790790-11-24 15:31:00 Test Item Value Reference Range Interpretation Comments MCH (test code = MCH) 28.8 pg 27.0-31.0 [place] 790790-11-24 15:31:00 Test Item Value Reference Range Interpretation Comments MCHC (test code = MCHC) 31.3 32.0-36.0 [place] 790790-11-24 15:31:00 Test Item Value Reference Range Interpretation Comments RDW (test code = RDW) 15.9 11.5-14.5 [place] 790790-11-24 15:31:00 Test Item Value Reference Range Interpretation Comments Platelet (test code = Platelet) 180 133-450 [place] 790790-11-24 15:31:00 Test Item Value Reference Range Interpretation Comments MPV (test code = MPV) 9.2 7.4-10.4 [place] 790790-11-24 15:31:00 Test Item Value Reference Range Interpretation Comments PT (test code = PT) 14.8 s 12.0-14.7 [place] [address]-11-24 15:31:00 Test Item Value Reference Range Interpretation Comments INR (test code = INR) 1.15 1 0.85-1.17 [place] 790790-11-24 15:31:00 Test Item Value Reference Range Interpretation Comments PTT (test code = PTT) 29.5 s 22.9-35.8 [place] 790790-11-24 15:31:00 Test Item Value Reference Range Interpretation Comments Segs (test code = Segs) 74.6 45.0-75.0 [place] 790790-11-24 15:31:00 Test Item Value Reference Range Interpretation Comments Lymphocytes (test code = Lymphocytes) 11.0 20.0-40.0 [facility] HospitalQfcapaeHGVKGBFXNH6986-01-75 15:31:00 Test Item Value Reference Range Interpretation Comments Monocytes (test code = Monocytes) 11.0 2.0-12.0 [place] 790790-11-24 15:31:00 Test Item Value Reference Range Interpretation Comments Eosinophils (test code = 2.6 See_Comment [A utomated message] The Eosinophils) system which ge nerated this result tra nsmitted reference range : <=4.0. The reference r eileen was not used to int erpret this result as normal/abnormal . [place] 790790-11-24 15:31:00 Test Item Value Reference Range Interpretation Comments Basophils (test code = 0.8 See_Comment [Aut omated message] The Basophils) system which ge nerated this result tra nsmitted reference range : <=1.0. The reference r eileen was not used to int erpret this result as normal/abnormal . [place] 790790-11-24 15:31:00 Test Item Value Reference Range Interpretation Comments Neutrophils # (test code = Neutrophils 3.9 1.5-8.1 #) [facility] HospitalNhnwgtrEPIAOCHMBU6500-39-55 15:31:00 Test Item Value Reference Range Interpretation Comments Lymphocytes # (test code = Lymphocytes 0.6 1.0-5.5 #) [facility] HospitalPnvdxbhMPEJOELGVQ4438-70-27 15:31:00 Test Item Value Reference Range Interpretation Comments Monocytes # (test code 0.6 See_Comment [Aut omated message] The = Monocytes #) system which generated this result tra nsmitted reference range : <=0.8. The reference r eileen was not used to int erpret this result as normal/abnormal . [facility] HospitalMcushuyHGIOLSKXRY6917-23-44 15:31:00 Test Item Value Reference Range Interpretation Comments Eosinophils # (test code 0.1 See_Comment [A utomated message] The = Eosinophils #) system whic h generated this result tra nsmitted reference range : <=0.5. The reference r eileen was not used to int erpret this result as normal/abnormal . [facility] [id number] 15:31:00 Test Item Value Reference Range Interpretation Comments ABO/Rh (test code = ABO/Rh) B POS [facility] [employer] [facility] [id number] 15:31:00 Test Item Value Reference Range Interpretation Comments Antibody Scrn (test Negative (05/17/20 code = Antibody Scrn) 9:31 AM) [facility] [id number] 15:31:00 Test Item Value Reference Range Interpretation Comments Glucose Lvl (test code = Glucose Lvl) 91 70-99 [facility] [id number] 15:31:00 Test Item Value Reference Range Interpretation Comments BUN (test code = BUN) 29 7-22 [facility] [id number] 15:31:00 Test Item Value Reference Range Interpretation Comments Creatinine Lvl (test code = Creatinine 5.79 0.50-1.40 Lvl) [facility] [id number] 15:31:00 Test Item Value Reference Range Interpretation Comments Sodium Lvl (test code = Sodium Lvl) 141 135-145 [facility] [id number] 15:31:00 Test Item Value Reference Range Interpretation Comments Potassium Lvl (test code = Potassium 3.9 3.5-5.1 Lvl) [facility]2020-11-24 15:31:00 Test Item Value Reference Range Interpretation Comments Chloride Lvl (test code = Chloride Lvl) 108 95-109 [place] 076080-11-24 15:31:00 Test Item Value Reference Range Interpretation Comments CO2 (test code = CO2) 27 24-32 [place] 076080-11-24 15:31:00 Test Item Value Reference Range Interpretation Comments Calcium Lvl (test code = Calcium Lvl) 9.9 8.5-10.5 [facility]2020-11-24 15:31:00 Test Item Value Reference Range Interpretation Comments AGAP (test code = AGAP) 9.9 10.0-20.0 [facility]2020-11-24 15:31:00 Test Item Value Reference Range Interpretation Comments eGFR (test code = eGFR) 7 [facility] HospitalVzvzypgMZBPYHOFII3275-08-39 15:31:00 Test Item Value Reference Range Interpretation Comments WBC (test code = WBC) 5.2 3.7-10.4 [place] 790790-11-24 15:31:00 Test Item Value Reference Range Interpretation Comments RBC (test code = RBC) 3.61 4.20-5.40 [facility] HospitalWvfcxpfIAFPNDCEJO7674-41-82 15:31:00 Test Item Value Reference Range Interpretation Comments Hgb (test code = Hgb) 10.4 12.0-16.0 [place] 790790-11-24 15:31:00 Test Item Value Reference Range Interpretation Comments Hct (test code = Hct) 33.1 36.0-48.0 [place] 790790-11-24 15:31:00 Test Item Value Reference Range Interpretation Comments MCV (test code = MCV) 91.8 80.0-98.0 [facility] HospitalUvrzzjnVRIIHHVPCW7795-84-84 15:31:00 Test Item Value Reference Range Interpretation Comments MCH (test code = MCH) 28.8 pg 27.0-31.0 [place] 790790-11-24 15:31:00 Test Item Value Reference Range Interpretation Comments MCHC (test code = MCHC) 31.3 32.0-36.0 [place] 790790-11-24 15:31:00 Test Item Value Reference Range Interpretation Comments RDW (test code = RDW) 15.9 11.5-14.5 [place] 790790-11-24 15:31:00 Test Item Value Reference Range Interpretation Comments Platelet (test code = Platelet) 180 133-450 [place] 790790-11-24 15:31:00 Test Item Value Reference Range Interpretation Comments MPV (test code = MPV) 9.2 7.4-10.4 [place] 790790-11-24 15:31:00 Test Item Value Reference Range Interpretation Comments PT (test code = PT) 14.8 s 12.0-14.7 [place] [address]-11-24 15:31:00 Test Item Value Reference Range Interpretation Comments INR (test code = INR) 1.15 1 0.85-1.17 [place] [address]-11-24 15:31:00 Test Item Value Reference Range Interpretation Comments PTT (test code = PTT) 29.5 s 22.9-35.8 [place] 790790-11-24 15:31:00 Test Item Value Reference Range Interpretation Comments Segs (test code = Segs) 74.6 45.0-75.0 [place] [address]-11-24 15:31:00 Test Item Value Reference Range Interpretation Comments Lymphocytes (test code = Lymphocytes) 11.0 20.0-40.0 [place] [address]-11-24 15:31:00 Test Item Value Reference Range Interpretation Comments Monocytes (test code = Monocytes) 11.0 2.0-12.0 [place] 790790-11-24 15:31:00 Test Item Value Reference Range Interpretation Comments Eosinophils (test code = 2.6 See_Comment [A utomated message] The Eosinophils) system which ge nerated this result tra nsmitted reference range : <=4.0. The reference r eileen was not used to int erpret this result as normal/abnormal . [place] [address]-11-24 15:31:00 Test Item Value Reference Range Interpretation Comments Basophils (test code = 0.8 See_Comment [Aut omated message] The Basophils) system which ge nerated this result tra nsmitted reference range : <=1.0. The reference r eileen was not used to int erpret this result as normal/abnormal . [facility] HospitalZwkkvmiPLEIKDCHYD2440-90-66 15:31:00 Test Item Value Reference Range Interpretation Comments Neutrophils # (test code = Neutrophils 3.9 1.5-8.1 #) [facility] HospitalFrnnpghRGNQHACLMU0836-97-16 15:31:00 Test Item Value Reference Range Interpretation Comments Lymphocytes # (test code = Lymphocytes 0.6 1.0-5.5 #) [facility] HospitalGqktsacIRFFLONNOA5151-52-01 15:31:00 Test Item Value Reference Range Interpretation Comments Monocytes # (test code 0.6 See_Comment [Aut omated message] The = Monocytes #) system which generated this result tra nsmitted reference range : <=0.8. The reference r eileen was not used to int erpret this result as normal/abnormal . [facility] HospitalIikogrvFAWSWNSWIN6477-17-62 15:31:00 Test Item Value Reference Range Interpretation Comments Eosinophils # (test code 0.1 See_Comment [A utomated message] The = Eosinophils #) system whic h generated this result tra nsmitted reference range : <=0.5. The reference r eileen was not used to int erpret this result as normal/abnormal . [facility] [id number] 15:31:00 Test Item Value Reference Range Interpretation Comments ABO/Rh (test code = ABO/Rh) B POS [facility] [id number] 15:31:00 Test Item Value Reference Range Interpretation Comments Antibody Scrn (test Negative (05/17/20 code = Antibody Scrn) 9:31 AM) [facility] [id number] 15:31:00 Test Item Value Reference Range Interpretation Comments Glucose Lvl (test code = Glucose Lvl) 91 70-99 [facility] [id number] 15:31:00 Test Item Value Reference Range Interpretation Comments BUN (test code = BUN) 29 7-22 [facility] [id number] 15:31:00 Test Item Value Reference Range Interpretation Comments Creatinine Lvl (test code = Creatinine 5.79 0.50-1.40 Lvl) [facility] [id number] 15:31:00 Test Item Value Reference Range Interpretation Comments Sodium Lvl (test code = Sodium Lvl) 141 135-145 [facility]2020-11-24 15:31:00 Test Item Value Reference Range Interpretation Comments Potassium Lvl (test code = Potassium 3.9 3.5-5.1 Lvl) [facility]2020-11-24 15:31:00 Test Item Value Reference Range Interpretation Comments Chloride Lvl (test code = Chloride Lvl) 108 95-109 [place] 076080-11-24 15:31:00 Test Item Value Reference Range Interpretation Comments CO2 (test code = CO2) 27 24-32 [place] 076080-11-24 15:31:00 Test Item Value Reference Range Interpretation Comments Calcium Lvl (test code = Calcium Lvl) 9.9 8.5-10.5 [place] 076080-11-24 15:31:00 Test Item Value Reference Range Interpretation Comments AGAP (test code = AGAP) 9.9 10.0-20.0 [place] 076080-11-24 15:31:00 Test Item Value Reference Range Interpretation Comments eGFR (test code = eGFR) 7 [place] 790790-11-24 15:31:00 Test Item Value Reference Range Interpretation Comments WBC (test code = WBC) 5.2 3.7-10.4 [place] 790790-11-24 15:31:00 Test Item Value Reference Range Interpretation Comments RBC (test code = RBC) 3.61 4.20-5.40 [place] 790790-11-24 15:31:00 Test Item Value Reference Range Interpretation Comments Hgb (test code = Hgb) 10.4 12.0-16.0 [place] [address]-11-24 15:31:00 Test Item Value Reference Range Interpretation Comments Hct (test code = Hct) 33.1 36.0-48.0 [place] 790790-11-24 15:31:00 Test Item Value Reference Range Interpretation Comments MCV (test code = MCV) 91.8 80.0-98.0 [place] [address]-11-24 15:31:00 Test Item Value Reference Range Interpretation Comments MCH (test code = MCH) 28.8 pg 27.0-31.0 [place] 790790-11-24 15:31:00 Test Item Value Reference Range Interpretation Comments MCHC (test code = MCHC) 31.3 32.0-36.0 [facility]QDBRANA[facility]QQ9602-93-88 15:31:00 Test Item Value Reference Range Interpretation Comments RDW (test code = RDW) 15.9 11.5-14.5 [facility] HospitalLsiwlmcOUFZTQDBWL7555-06-38 15:31:00 Test Item Value Reference Range Interpretation Comments Platelet (test code = Platelet) 180 133-450 [facility] HospitalGlgtwhfWEOBKDNQDA4652-80-35 15:31:00 Test Item Value Reference Range Interpretation Comments MPV (test code = MPV) 9.2 7.4-10.4 [facility] HospitalOrdgxxhBOGVRHMHUO7160-61-38 15:31:00 Test Item Value Reference Range Interpretation Comments PT (test code = PT) 14.8 s 12.0-14.7 [facility] HospitalYhoduqeGNEGOZLPLY2977-56-76 15:31:00 Test Item Value Reference Range Interpretation Comments INR (test code = INR) 1.15 1 0.85-1.17 [facility] HospitalCzxivpgFWXGTRQPHG7259-26-63 15:31:00 Test Item Value Reference Range Interpretation Comments PTT (test code = PTT) 29.5 s 22.9-35.8 [facility] HospitalGqnmcueQFZQRURLAF1871-46-03 15:31:00 Test Item Value Reference Range Interpretation Comments Segs (test code = Segs) 74.6 45.0-75.0 [facility] HospitalPsarvltKJDOVBOVOC8172-06-20 15:31:00 Test Item Value Reference Range Interpretation Comments Lymphocytes (test code = Lymphocytes) 11.0 20.0-40.0 [facility] HospitalUnrdmnkNBNSKYYLSP3532-85-25 15:31:00 Test Item Value Reference Range Interpretation Comments Monocytes (test code = Monocytes) 11.0 2.0-12.0 [facility] HospitalXbckhosLKXVIZRVZC5594-08-74 15:31:00 Test Item Value Reference Range Interpretation Comments Eosinophils (test code = Eosinophils) 2.6 <=4.0 [facility] HospitalOexncwzMRAYUGAITA3218-48-67 15:31:00 Test Item Value Reference Range Interpretation Comments Basophils (test code = Basophils) 0.8 <=1.0 [facility] HospitalBycrgfxZFTCKHKLSX8105-43-75 15:31:00 Test Item Value Reference Range Interpretation Comments Neutrophils # (test code = Neutrophils 3.9 1.5-8.1 #) [facility] AreaWfdjsxlHLYQCLUCGX5519-27-16 15:31:00 Test Item Value Reference Range Interpretation Comments Lymphocytes # (test code = Lymphocytes 0.6 1.0-5.5 #) [facility] AreaAusesdsYNXUALIGWA7585-09-13 15:31:00 Test Item Value Reference Range Interpretation Comments Monocytes # (test code = Monocytes #) 0.6 <=0.8 [facility] AreaJjqrjqqETUQHGZPWS6815-27-57 15:31:00 Test Item Value Reference Range Interpretation Comments Eosinophils # (test code = Eosinophils 0.1 <=0.5 #) [facility] [employer] [id number] 15:31:00 Test Item Value Reference Range Interpretation Comments ABO/Rh (test code = ABO/Rh) B POS [facility] [employer] [id number] 15:31:00 Test Item Value Reference Range Interpretation Comments Antibody Scrn (test Negative (05/17/20 code = Antibody Scrn) 9:31 AM) [facility] [id number] 15:31:00 Test Item Value Reference Range Interpretation Comments Glucose Lvl (test code = Glucose Lvl) 91 70-99 [facility] [employer] [id number] 15:31:00 Test Item Value Reference Range Interpretation Comments BUN (test code = BUN) 29 7-22 [facility] [employer] [id number] 15:31:00 Test Item Value Reference Range Interpretation Comments Creatinine Lvl (test code = Creatinine 5.79 0.50-1.40 Lvl) [facility] [employer] [id number] 15:31:00 Test Item Value Reference Range Interpretation Comments Sodium Lvl (test code = Sodium Lvl) 141 135-145 [facility] [employer] [id number] 15:31:00 Test Item Value Reference Range Interpretation Comments Potassium Lvl (test code = Potassium 3.9 3.5-5.1 Lvl) [facility] [employer] [id number] 15:31:00 Test Item Value Reference Range Interpretation Comments Chloride Lvl (test code = Chloride Lvl) 108 95-109 [facility] [employer] [id number] 15:31:00 Test Item Value Reference Range Interpretation Comments CO2 (test code = CO2) 27 24-32 [facility] [employer] [id number] 15:31:00 Test Item Value Reference Range Interpretation Comments Calcium Lvl (test code = Calcium Lvl) 9.9 8.5-10.5 [facility]2020-11-24 15:31:00 Test Item Value Reference Range Interpretation Comments AGAP (test code = AGAP) 9.9 10.0-20.0 [facility]2020-11-24 15:31:00 Test Item Value Reference Range Interpretation Comments eGFR (test code = eGFR) 7 [facility] HospitalLmgkrzfKBFGLSOMZC2215-13-47 15:31:00 Test Item Value Reference Range Interpretation Comments WBC (test code = WBC) 5.2 3.7-10.4 [facility] HospitalEikcpihEJKVDAXVYC3162-73-04 15:31:00 Test Item Value Reference Range Interpretation Comments RBC (test code = RBC) 3.61 4.20-5.40 [facility] HospitalIqhubukLZBPVTHFMC6339-17-46 15:31:00 Test Item Value Reference Range Interpretation Comments Hgb (test code = Hgb) 10.4 12.0-16.0 [place] 790790-11-24 15:31:00 Test Item Value Reference Range Interpretation Comments Hct (test code = Hct) 33.1 36.0-48.0 [place] 790790-11-24 15:31:00 Test Item Value Reference Range Interpretation Comments MCV (test code = MCV) 91.8 80.0-98.0 [place] 790790-11-24 15:31:00 Test Item Value Reference Range Interpretation Comments MCH (test code = MCH) 28.8 pg 27.0-31.0 [place] 790790-11-24 15:31:00 Test Item Value Reference Range Interpretation Comments MCHC (test code = MCHC) 31.3 32.0-36.0 [place] 790790-11-24 15:31:00 Test Item Value Reference Range Interpretation Comments RDW (test code = RDW) 15.9 11.5-14.5 [facility] HospitalMvifbpcOXGGPSUFNH7785-78-37 15:31:00 Test Item Value Reference Range Interpretation Comments Platelet (test code = Platelet) 180 133-450 [facility] HospitalWbyzsbbYTDZESKLZY7869-25-59 15:31:00 Test Item Value Reference Range Interpretation Comments MPV (test code = MPV) 9.2 7.4-10.4 [facility] HospitalMbpdycxTNKRSRYUTP2697-46-77 15:31:00 Test Item Value Reference Range Interpretation Comments PT (test code = PT) 14.8 s 12.0-14.7 [facility] HospitalEfmdhhcBGFZPRVNMB4296-19-65 15:31:00 Test Item Value Reference Range Interpretation Comments INR (test code = INR) 1.15 1 0.85-1.17 [facility] HospitalDrvmvyiENFDHNZZKI9569-21-60 15:31:00 Test Item Value Reference Range Interpretation Comments PTT (test code = PTT) 29.5 s 22.9-35.8 [facility] HospitalVthmxwmRYTOIUKMRT4418-23-93 15:31:00 Test Item Value Reference Range Interpretation Comments Segs (test code = Segs) 74.6 45.0-75.0 [facility] HospitalFjrkncoSNRZRRSDLJ0522-27-73 15:31:00 Test Item Value Reference Range Interpretation Comments Lymphocytes (test code = Lymphocytes) 11.0 20.0-40.0 [facility]TyhtjcbJEXWJVMGJP3129-07-09 15:31:00 Test Item Value Reference Range Interpretation Comments Monocytes (test code = Monocytes) 11.0 2.0-12.0 [facility] HospitalFgorxciFZKWROKRBQ1565-86-39 15:31:00 Test Item Value Reference Range Interpretation Comments Eosinophils (test code = Eosinophils) 2.6 <=4.0 [facility] HospitalQmwkvziKBHLRYUDTK3445-56-05 15:31:00 Test Item Value Reference Range Interpretation Comments Basophils (test code = Basophils) 0.8 <=1.0 [facility] HospitalCwjawuvOQXMXBSWDD3425-07-04 15:31:00 Test Item Value Reference Range Interpretation Comments Neutrophils # (test code = Neutrophils 3.9 1.5-8.1 #) [facility] HospitalAmbfbppFDVKRLWNDH6083-64-73 15:31:00 Test Item Value Reference Range Interpretation Comments Lymphocytes # (test code = Lymphocytes 0.6 1.0-5.5 #) [facility] HospitalNklucmyRDMWYVDVKD0388-14-82 15:31:00 Test Item Value Reference Range Interpretation Comments Monocytes # (test code = Monocytes #) 0.6 <=0.8 [facility] HospitalZxhqqneLCYYKKAORW2102-48-31 15:31:00 Test Item Value Reference Range Interpretation Comments Eosinophils # (test code = Eosinophils 0.1 <=0.5 #) [facility] HospitalNusigchLDEZTOBNUX1884-38-47 14:47:00 Test Item Value Reference Range Interpretation Comments Coronavirus (COVID-19) Not Detected KAYLEE (test code = (05/17/20 8:47 AM) Coronavirus (COVID-19) KAYLEE) [facility]IK[facility]MNGB0004-96-94 14:47:00 Test Item Value Reference Range Interpretation Comments Coronavirus (COVID-19) Not Detected KAYLEE (test code = (05/17/20 8:47 AM) Coronavirus (COVID-19) KAYLEE) [place] [address]-11-24 14:47:00 Test Item Value Reference Range Interpretation Comments Coronavirus (COVID-19) Not Detected KAYLEE (test code = (05/17/20 8:47 AM) Coronavirus (COVID-19) KAYLEE) [facility]QrbepdvWDOUKADONA8445-40-92 14:47:00 Test Item Value Reference Range Interpretation Comments Coronavirus (COVID-19) Not Detected KAYLEE (test code = (05/17/20 8:47 AM) Coronavirus (COVID-19) KAYLEE) [place] [address]-11-24 14:47:00 Test Item Value Reference Range Interpretation Comments Coronavirus (COVID-19) Not Detected KAYLEE (test code = (05/17/20 8:47 AM) Coronavirus (COVID-19) KAYLEE) [facility] HospitalKnmtuymVXPZYPCTYT2757-34-50 14:47:00 Test Item Value Reference Range Interpretation Comments Coronavirus (COVID-19) Not Detected KAYLEE (test code = (05/17/20 8:47 AM) Coronavirus (COVID-19) KAYLEE) [facility] HospitalBlsjkgjGWOQAWHCUT4780-27-84 14:47:00 Test Item Value Reference Range Interpretation [...] Comments eGFR (test code = eGFR) 5 [facility] HospitalAcpixkaJYPWSALOOA2165-62-10 10:29:00 Test Item Value Reference Range Interpretation Comments PT (test code = PT) 15.6 s 12.0-14.7 [facility] HospitalKepwqhnSIQFPFKAVB9433-53-37 10:29:00 Test Item Value Reference Range Interpretation Comments INR (test code = INR) 1.23 1 0.85-1.17 [place] 790790-10-16 10:29:00 Test Item Value Reference Range Interpretation Comments PTT (test code = PTT) 34.9 s 22.9-35.8 [place] 790790-10-16 10:29:00 Test Item Value Reference Range Interpretation Comments WBC (test code = WBC) 5.0 3.7-10.4 [facility] HospitalYlydixxDJSBQGRGHI4442-90-02 10:29:00 Test Item Value Reference Range Interpretation Comments RBC (test code = RBC) 3.39 4.20-5.40 [place] 790790-10-16 10:29:00 Test Item Value Reference Range Interpretation Comments Hgb (test code = Hgb) 9.8 12.0-16.0 [facility] HospitalXbbobutTFLLZXOYMH4396-74-78 10:29:00 Test Item Value Reference Range Interpretation Comments Hct (test code = Hct) 30.6 36.0-48.0 [facility] HospitalZcscrxbRECKRGPPLX9117-35-82 10:29:00 Test Item Value Reference Range Interpretation Comments MCV (test code = MCV) 90.2 80.0-98.0 [facility] HospitalBeivbqmYRJWFRDNIA7718-28-94 10:29:00 Test Item Value Reference Range Interpretation Comments MCH (test code = MCH) 29.0 pg 27.0-31.0 [facility] HospitalWtbymoaZMIKXCYGFX8939-30-20 10:29:00 Test Item Value Reference Range Interpretation Comments MCHC (test code = MCHC) 32.2 32.0-36.0 [facility] HospitalYzyoqrkTNGWXCEGIO7749-21-59 10:29:00 Test Item Value Reference Range Interpretation Comments RDW (test code = RDW) 15.4 11.5-14.5 [facility] HospitalQugycvzPMGVKSAGFN5028-13-38 10:29:00 Test Item Value Reference Range Interpretation Comments Platelet (test code = Platelet) 109 133-450 [facility] HospitalLcygzlqSGTHKHHKSN3290-96-67 10:29:00 Test Item Value Reference Range Interpretation Comments MPV (test code = MPV) 9.8 7.4-10.4 [facility] HospitalRhxlnxtIGSTSWXNAM2256-19-80 10:29:00 Test Item Value Reference Range Interpretation Comments Segs (test code = Segs) 62.0 45.0-75.0 [facility] HospitalStlwwmjTLPKHBTQXH9418-79-17 10:29:00 Test Item Value Reference Range Interpretation Comments Lymphocytes (test code = Lymphocytes) 12.7 20.0-40.0 [place] 790790-10-16 10:29:00 Test Item Value Reference Range Interpretation Comments Monocytes (test code = Monocytes) 19.5 2.0-12.0 [place] [address]-10-16 10:29:00 Test Item Value Reference Range Interpretation Comments Eosinophils (test code = 5.1 See_Comment [A utomated message] The Eosinophils) system which ge nerated this result tra nsmitted reference range : <=4.0. The reference r eileen was not used to int erpret this result as normal/abnormal . [facility] HospitalByquoatILXLKQRAKL0522-89-19 10:29:00 Test Item Value Reference Range Interpretation Comments Basophils (test code = 0.7 See_Comment [Aut omated message] The Basophils) system which ge nerated this result tra nsmitted reference range : <=1.0. The reference r eileen was not used to int erpret this result as normal/abnormal . [facility] HospitalLeziybcUKCXTTVVZB2806-10-74 10:29:00 Test Item Value Reference Range Interpretation Comments Neutrophils # (test code = Neutrophils 3.1 1.5-8.1 #) [facility] HospitalCpyteirTADIPWGDBG7811-89-65 10:29:00 Test Item Value Reference Range Interpretation Comments Lymphocytes # (test code = Lymphocytes 0.6 1.0-5.5 #) [facility] HospitalHdeyfkdZWTQATYVAM1425-42-16 10:29:00 Test Item Value Reference Range Interpretation Comments Monocytes # (test code 1.0 See_Comment [Aut omated message] The = Monocytes #) system which generated this result tra nsmitted reference range : <=0.8. The reference r eileen was not used to int erpret this result as normal/abnormal . [facility] HospitalHecyugiBBAMFPMORL3907-74-35 10:29:00 Test Item Value Reference Range Interpretation Comments Eosinophils # (test code 0.3 See_Comment [A utomated message] The = Eosinophils #) system whic h generated this result tra nsmitted reference range : <=0.5. The reference r eileen was not used to int erpret this result as normal/abnormal . [facility] HospitalZziqgdfOABBZVZQXL7566-92-49 10:29:00 Test Item Value Reference Range Interpretation Comments Hep Bs Ag (test code Negative *NA*(04/08/20 = Hep Bs Ag) 5:29 AM) [facility] [id number] 10:29:00 Test Item Value Reference Range Interpretation Comments Glucose Lvl (test code = Glucose Lvl) 91 70-99 [facility]2020-10-16 10:29:00 Test Item Value Reference Range Interpretation Comments BUN (test code = BUN) 44 7-22 [facility] SVAOE5597-20-27 10:29:00 Test Item Value Reference Range Interpretation [...] Comments eGFR (test code = eGFR) 5 [facility] HospitalZoxwdpsKTWKAZLPME1492-72-11 10:29:00 Test Item Value Reference Range Interpretation Comments PT (test code = PT) 15.6 s 12.0-14.7 [facility] HospitalAzgpibcTKMLACCKPD5888-03-84 10:29:00 Test Item Value Reference Range Interpretation Comments INR (test code = INR) 1.23 1 0.85-1.17 [place] 790790-10-16 10:29:00 Test Item Value Reference Range Interpretation Comments PTT (test code = PTT) 34.9 s 22.9-35.8 [place] 790790-10-16 10:29:00 Test Item Value Reference Range Interpretation Comments WBC (test code = WBC) 5.0 3.7-10.4 [place] 790790-10-16 10:29:00 Test Item Value Reference Range Interpretation Comments RBC (test code = RBC) 3.39 4.20-5.40 [place] 790790-10-16 10:29:00 Test Item Value Reference Range Interpretation Comments Hgb (test code = Hgb) 9.8 12.0-16.0 [facility] HospitalWzyhddlDOKBICNYCM4413-50-59 10:29:00 Test Item Value Reference Range Interpretation Comments Hct (test code = Hct) 30.6 36.0-48.0 [facility] HospitalBegtsmzRGJOWMIYGM0628-63-81 10:29:00 Test Item Value Reference Range Interpretation Comments MCV (test code = MCV) 90.2 80.0-98.0 [facility] HospitalCzapyrhSBGQXELQML6284-43-99 10:29:00 Test Item Value Reference Range Interpretation Comments MCH (test code = MCH) 29.0 pg 27.0-31.0 [facility] HospitalQphkpmnAVXDMSVEED9010-65-70 10:29:00 Test Item Value Reference Range Interpretation Comments MCHC (test code = MCHC) 32.2 32.0-36.0 [facility] HospitalRgjmttxMQJHCVWQET4293-90-61 10:29:00 Test Item Value Reference Range Interpretation Comments RDW (test code = RDW) 15.4 11.5-14.5 [facility] HospitalNxegjwhZYYUXSTFBI8618-68-97 10:29:00 Test Item Value Reference Range Interpretation Comments Platelet (test code = Platelet) 109 133-450 [facility] HospitalKnhrubgJBOHBUCUMS9422-35-41 10:29:00 Test Item Value Reference Range Interpretation Comments MPV (test code = MPV) 9.8 7.4-10.4 [facility] HospitalApyeahjTARTFRHNOB1857-65-46 10:29:00 Test Item Value Reference Range Interpretation Comments Segs (test code = Segs) 62.0 45.0-75.0 [facility] HospitalZiadqehEYEKEFGFBH6149-63-77 10:29:00 Test Item Value Reference Range Interpretation Comments Lymphocytes (test code = Lymphocytes) 12.7 20.0-40.0 [facility] HospitalBgnatuwRXTGZIWSBE0831-98-88 10:29:00 Test Item Value Reference Range Interpretation Comments Monocytes (test code = Monocytes) 19.5 2.0-12.0 [facility] HospitalFxxanwiPIXQEXDJAV0706-73-46 10:29:00 Test Item Value Reference Range Interpretation Comments Eosinophils (test code = 5.1 See_Comment [A utomated message] The Eosinophils) system which ge nerated this result tra nsmitted reference range : <=4.0. The reference r eileen was not used to int erpret this result as normal/abnormal . [facility] HospitalAvpagbfKWRMRAIMLF4883-39-34 10:29:00 Test Item Value Reference Range Interpretation Comments Basophils (test code = 0.7 See_Comment [Aut omated message] The Basophils) system which ge nerated this result tra nsmitted reference range : <=1.0. The reference r eileen was not used to int erpret this result as normal/abnormal . [facility] HospitalQyathjkPWBVNEWZLE2632-81-87 10:29:00 Test Item Value Reference Range Interpretation Comments Neutrophils # (test code = Neutrophils 3.1 1.5-8.1 #) [facility] HospitalGififejMJCHECLKBO3886-64-11 10:29:00 Test Item Value Reference Range Interpretation Comments Lymphocytes # (test code = Lymphocytes 0.6 1.0-5.5 #) [facility] HospitalLrdmwzvBONGHGUUGT7616-15-95 10:29:00 Test Item Value Reference Range Interpretation Comments Monocytes # (test code 1.0 See_Comment [Aut omated message] The = Monocytes #) system which generated this result tra nsmitted reference range : <=0.8. The reference r eileen was not used to int erpret this result as normal/abnormal . [facility] HospitalNdursizGBIWEBJRPD8727-89-61 10:29:00 Test Item Value Reference Range Interpretation Comments Eosinophils # (test code 0.3 See_Comment [A utomated message] The = Eosinophils #) system whic h generated this result tra nsmitted reference range : <=0.5. The reference r eileen was not used to int erpret this result as normal/abnormal . [facility] HospitalXskrynhEWRVHEFMCV6826-98-59 10:29:00 Test Item Value Reference Range Interpretation Comments Hep Bs Ag (test code Negative *NA*(04/08/20 = Hep Bs Ag) 5:29 AM) [facility] [id number] 10:29:00 Test Item Value Reference Range Interpretation Comments Glucose Lvl (test code = Glucose Lvl) 91 70-99 [facility]2020-10-16 10:29:00 Test Item Value Reference Range Interpretation Comments BUN (test code = BUN) 44 7-22 [facility] [id number] 10:29:00 Test Item Value Reference Range Interpretation [...] Comments eGFR (test code = eGFR) 5 [facility] HospitalYtlbrdzHEBMAZUIKV3571-96-72 10:29:00 Test Item Value Reference Range Interpretation Comments PT (test code = PT) 15.6 s 12.0-14.7 [place] 790790-10-16 10:29:00 Test Item Value Reference Range Interpretation Comments INR (test code = INR) 1.23 1 0.85-1.17 [place] 790790-10-16 10:29:00 Test Item Value Reference Range Interpretation Comments PTT (test code = PTT) 34.9 s 22.9-35.8 [place] 790790-10-16 10:29:00 Test Item Value Reference Range Interpretation Comments WBC (test code = WBC) 5.0 3.7-10.4 [place] 790790-10-16 10:29:00 Test Item Value Reference Range Interpretation Comments RBC (test code = RBC) 3.39 4.20-5.40 [place] 790790-10-16 10:29:00 Test Item Value Reference Range Interpretation Comments Hgb (test code = Hgb) 9.8 12.0-16.0 [facility] HospitalDkilltuDOMGDIVKCN6349-74-38 10:29:00 Test Item Value Reference Range Interpretation Comments Hct (test code = Hct) 30.6 36.0-48.0 [facility] HospitalIelhaexVZVBPHZQTQ8653-25-76 10:29:00 Test Item Value Reference Range Interpretation Comments MCV (test code = MCV) 90.2 80.0-98.0 [facility] HospitalIwheamqKQISRXLEHA2887-04-00 10:29:00 Test Item Value Reference Range Interpretation Comments MCH (test code = MCH) 29.0 pg 27.0-31.0 [facility] HospitalMaekxtdFXNDHBPBRD8939-14-93 10:29:00 Test Item Value Reference Range Interpretation Comments MCHC (test code = MCHC) 32.2 32.0-36.0 [facility] HospitalVjzvkfnPNMKSRZJPX3877-72-16 10:29:00 Test Item Value Reference Range Interpretation Comments RDW (test code = RDW) 15.4 11.5-14.5 [facility] HospitalJqencgfQUQQJXHVRN6257-91-57 10:29:00 Test Item Value Reference Range Interpretation Comments Platelet (test code = Platelet) 109 133-450 [facility] HospitalVzxnxckTXJBIMJNZE2286-98-78 10:29:00 Test Item Value Reference Range Interpretation Comments MPV (test code = MPV) 9.8 7.4-10.4 [facility] HospitalBzxidfnIMGFQTKMVB2937-90-03 10:29:00 Test Item Value Reference Range Interpretation Comments Segs (test code = Segs) 62.0 45.0-75.0 [facility] HospitalEgxtczgVCIGEFRYJY4632-21-68 10:29:00 Test Item Value Reference Range Interpretation Comments Lymphocytes (test code = Lymphocytes) 12.7 20.0-40.0 [facility] HospitalCmybaemQOSMBXTZKC1279-48-26 10:29:00 Test Item Value Reference Range Interpretation Comments Monocytes (test code = Monocytes) 19.5 2.0-12.0 [facility] HospitalXwulplzQCJKWFPSQQ7804-93-04 10:29:00 Test Item Value Reference Range Interpretation Comments Eosinophils (test code = 5.1 See_Comment [A utomated message] The Eosinophils) system which ge nerated this result tra nsmitted reference range : <=4.0. The reference r eileen was not used to int erpret this result as normal/abnormal . [facility] HospitalUjnauerGDYIUUEHEB7732-67-16 10:29:00 Test Item Value Reference Range Interpretation Comments Basophils (test code = 0.7 See_Comment [Aut omated message] The Basophils) system which ge nerated this result tra nsmitted reference range : <=1.0. The reference r eileen was not used to int erpret this result as normal/abnormal . [facility] HospitalMhgrblgQSCNOPKKIC7650-64-53 10:29:00 Test Item Value Reference Range Interpretation Comments Neutrophils # (test code = Neutrophils 3.1 1.5-8.1 #) [facility] HospitalEcwkrvdWOTXSLRSAW5752-39-22 10:29:00 Test Item Value Reference Range Interpretation Comments Lymphocytes # (test code = Lymphocytes 0.6 1.0-5.5 #) [facility] HospitalSwdytzfZDDNJKPOFP6146-46-32 10:29:00 Test Item Value Reference Range Interpretation Comments Monocytes # (test code 1.0 See_Comment [Aut omated message] The = Monocytes #) system which generated this result tra nsmitted reference range : <=0.8. The reference r eileen was not used to int erpret this result as normal/abnormal . [facility] HospitalBuzrenkMFDSEZIXOA8810-09-25 10:29:00 Test Item Value Reference Range Interpretation Comments Eosinophils # (test code 0.3 See_Comment [A utomated message] The = Eosinophils #) system whic h generated this result tra nsmitted reference range : <=0.5. The reference r eileen was not used to int erpret this result as normal/abnormal . [facility] HospitalDftxoopNIKLXVFXBG3713-14-52 10:29:00 Test Item Value Reference Range Interpretation Comments Hep Bs Ag (test code Negative *NA*(04/08/20 = Hep Bs Ag) 5:29 AM) [facility] [id number] 10:29:00 Test Item Value Reference Range Interpretation Comments Glucose Lvl (test code = Glucose Lvl) 91 70-99 [facility]2020-10-16 10:29:00 Test Item Value Reference Range Interpretation Comments BUN (test code = BUN) 44 7-22 [facility] BFKXE6485-13-50 10:29:00 Test Item Value Reference Range Interpretation [...] CO2 (test code = CO2) 24 24-32 [place] 076080-10-16 10:29:00 Test Item Value Reference Range Interpretation Comments Calcium Lvl (test code = Calcium Lvl) 8.9 8.5-10.5 [place] 076080-10-16 10:29:00 Test Item Value Reference Range Interpretation Comments AGAP (test code = AGAP) 12.2 10.0-20.0 [place] 076080-10-16 10:29:00 Test Item Value Reference Range Interpretation Comments eGFR (test code = eGFR) 5 [facility] HospitalJvfuzicTBDXNBGTFW8470-80-26 10:29:00 Test Item Value Reference Range Interpretation Comments PT (test code = PT) 15.6 s 12.0-14.7 [place] 790790-10-16 10:29:00 Test Item Value Reference Range Interpretation Comments INR (test code = INR) 1.23 1 0.85-1.17 [place] 790790-10-16 10:29:00 Test Item Value Reference Range Interpretation Comments PTT (test code = PTT) 34.9 s 22.9-35.8 [place] 790790-10-16 10:29:00 Test Item Value Reference Range Interpretation Comments WBC (test code = WBC) 5.0 3.7-10.4 [place] 790790-10-16 10:29:00 Test Item Value Reference Range Interpretation Comments RBC (test code = RBC) 3.39 4.20-5.40 [place] 790790-10-16 10:29:00 Test Item Value Reference Range Interpretation Comments Hgb (test code = Hgb) 9.8 12.0-16.0 [facility]tofimuNAMPMRWIVU1793-31-02 10:29:00 Test Item Value Reference Range Interpretation Comments Hct (test code = Hct) 30.6 36.0-48.0 [facility] HospitalKpwggezCPXGSVFYUY2207-18-08 10:29:00 Test Item Value Reference Range Interpretation Comments MCV (test code = MCV) 90.2 80.0-98.0 [facility] HospitalCiudvuxAMGGAPCMGX5850-54-71 10:29:00 Test Item Value Reference Range Interpretation Comments MCH (test code = MCH) 29.0 pg 27.0-31.0 [facility] HospitalSnvmvreLJEUIAJEKR0845-74-75 10:29:00 Test Item Value Reference Range Interpretation Comments MCHC (test code = MCHC) 32.2 32.0-36.0 [facility] HospitalXznyincRQZZYQEGAL9301-18-78 10:29:00 Test Item Value Reference Range Interpretation Comments RDW (test code = RDW) 15.4 11.5-14.5 [facility] HospitalJeskgwgMVOUVJUZWA4859-58-25 10:29:00 Test Item Value Reference Range Interpretation Comments Platelet (test code = Platelet) 109 133-450 [facility] HospitalTftcxghTRIGYVJLCN3043-38-27 10:29:00 Test Item Value Reference Range Interpretation Comments MPV (test code = MPV) 9.8 7.4-10.4 [facility] HospitalLayaylwEPMBUKUEKD4027-01-51 10:29:00 Test Item Value Reference Range Interpretation Comments Segs (test code = Segs) 62.0 45.0-75.0 [facility] HospitalZmkdmbaWLVVXLIYNP1067-84-19 10:29:00 Test Item Value Reference Range Interpretation Comments Lymphocytes (test code = Lymphocytes) 12.7 20.0-40.0 [facility] HospitalZzssywzUSJNQOMENS3388-37-20 10:29:00 Test Item Value Reference Range Interpretation Comments Monocytes (test code = Monocytes) 19.5 2.0-12.0 [facility] HospitalAbusdrfXZJAHVATRS5890-88-96 10:29:00 Test Item Value Reference Range Interpretation Comments Eosinophils (test code = 5.1 See_Comment [A utomated message] The Eosinophils) system which ge nerated this result tra nsmitted reference range : <=4.0. The reference r eileen was not used to int erpret this result as normal/abnormal . [facility] HospitalUdzyalcSNETYDIHJN0153-71-07 10:29:00 Test Item Value Reference Range Interpretation Comments Basophils (test code = 0.7 See_Comment [Aut omated message] The Basophils) system which ge nerated this result tra nsmitted reference range : <=1.0. The reference r eileen was not used to int erpret this result as normal/abnormal . [facility] HospitalJytunluMIIJYBHESD2318-41-27 10:29:00 Test Item Value Reference Range Interpretation Comments Neutrophils # (test code = Neutrophils 3.1 1.5-8.1 #) [facility] HospitalDjqydceDEXUYUGYCK8565-54-64 10:29:00 Test Item Value Reference Range Interpretation Comments Lymphocytes # (test code = Lymphocytes 0.6 1.0-5.5 #) [facility] HospitalTqfrdorLKROSFZWUL5709-57-03 10:29:00 Test Item Value Reference Range Interpretation Comments Monocytes # (test code 1.0 See_Comment [Aut omated message] The = Monocytes #) system which generated this result tra nsmitted reference range : <=0.8. The reference r eileen was not used to int erpret this result as normal/abnormal . [facility] HospitalDuyemtfTTIEPTPMBK2935-70-83 10:29:00 Test Item Value Reference Range Interpretation Comments Eosinophils # (test code 0.3 See_Comment [A utomated message] The = Eosinophils #) system whic h generated this result tra nsmitted reference range : <=0.5. The reference r eileen was not used to int erpret this result as normal/abnormal . [facility] HospitalXhzdhcpBFKULPSEYG1996-23-60 10:29:00 Test Item Value Reference Range Interpretation Comments Hep Bs Ag (test code Negative *NA*(04/08/20 = Hep Bs Ag) 5:29 AM) [facility] [id number] 10:29:00 Test Item Value Reference Range Interpretation Comments Glucose Lvl (test code = Glucose Lvl) 91 70-99 [facility] [id number] 10:29:00 Test Item Value Reference Range Interpretation Comments BUN (test code = BUN) 44 7-22 [facility] IDKXG9552-71-11 10:29:00 Test Item Value Reference Range Interpretation Comments Creatinine Lvl (test code = Creatinine 8.12 0.50-1.40 Lvl) [facility]2020-10-16 10:29:00 Test Item Value Reference Range Interpretation Comments Sodium Lvl (test code = Sodium Lvl) 139 135-145 [place] 076080-10-16 10:29:00 Test Item Value Reference Range Interpretation Comments Potassium Lvl (test code = Potassium 4.2 3.5-5.1 Lvl) [place] 076080-10-16 10:29:00 Test Item Value Reference Range Interpretation Comments Chloride Lvl (test code = Chloride Lvl) 107 95-109 [place] 076080-10-16 10:29:00 Test Item Value Reference Range Interpretation Comments CO2 (test code = CO2) 24 24-32 [place] 076080-10-16 10:29:00 Test Item Value Reference Range Interpretation Comments Calcium Lvl (test code = Calcium Lvl) 8.9 8.5-10.5 [place] 076080-10-16 10:29:00 Test Item Value Reference Range Interpretation Comments AGAP (test code = AGAP) 12.2 10.0-20.0 [place] [address]-10-16 10:29:00 Test Item Value Reference Range Interpretation Comments eGFR (test code = eGFR) 5 [facility] HospitalVwlnlouCZEOJSJNSZ3218-05-40 10:29:00 Test Item Value Reference Range Interpretation Comments PT (test code = PT) 15.6 s 12.0-14.7 [place] 790790-10-16 10:29:00 Test Item Value Reference Range Interpretation Comments INR (test code = INR) 1.23 1 0.85-1.17 [place] 790790-10-16 10:29:00 Test Item Value Reference Range Interpretation Comments PTT (test code = PTT) 34.9 s 22.9-35.8 [place] [place] [address]-[place]16 10:29:00 Test Item Value Reference Range Interpretation Comments WBC (test code = WBC) 5.0 3.7-10.4 [place] [address]-10-16 10:29:00 Test Item Value Reference Range Interpretation Comments RBC (test code = RBC) 3.39 4.20-5.40 [place] 790790-10-16 10:29:00 Test Item Value Reference Range Interpretation Comments Hgb (test code = Hgb) 9.8 12.0-16.0 [facility]svc[facility]yBTYMAZMVKB6178-00-49 10:29:00 Test Item Value Reference Range Interpretation Comments Hct (test code = Hct) 30.6 36.0-48.0 [facility] HospitalFympfdvVBITTUALDG7662-84-77 10:29:00 Test Item Value Reference Range Interpretation Comments MCV (test code = MCV) 90.2 80.0-98.0 [facility] HospitalZvdwmbqXFOEQABDPJ7542-65-11 10:29:00 Test Item Value Reference Range Interpretation Comments MCH (test code = MCH) 29.0 pg 27.0-31.0 [facility] HospitalDzgafxaWIGZXSMXPS0967-56-90 10:29:00 Test Item Value Reference Range Interpretation Comments MCHC (test code = MCHC) 32.2 32.0-36.0 [facility] HospitalLigffneMNYYHDMLYO2021-44-08 10:29:00 Test Item Value Reference Range Interpretation Comments RDW (test code = RDW) 15.4 11.5-14.5 [facility] HospitalWvptmihDFXHBDHNCD8664-29-50 10:29:00 Test Item Value Reference Range Interpretation Comments Platelet (test code = Platelet) 109 133-450 [facility] HospitalWxfqwevZLRIHQTTIF1613-63-25 10:29:00 Test Item Value Reference Range Interpretation Comments MPV (test code = MPV) 9.8 7.4-10.4 [facility] HospitalKgudduzOOXNDTYICU6889-08-88 10:29:00 Test Item Value Reference Range Interpretation Comments Segs (test code = Segs) 62.0 45.0-75.0 [facility] HospitalBggwlqfGYHTRGTPRI0666-82-37 10:29:00 Test Item Value Reference Range Interpretation Comments Lymphocytes (test code = Lymphocytes) 12.7 20.0-40.0 [facility] HospitalJhbyskpUPGFDIJYCU8427-99-32 10:29:00 Test Item Value Reference Range Interpretation Comments Monocytes (test code = Monocytes) 19.5 2.0-12.0 [place] [address]-10-16 10:29:00 Test Item Value Reference Range Interpretation Comments Eosinophils (test code = 5.1 See_Comment [A utomated message] The Eosinophils) system which ge nerated this result tra nsmitted reference range : <=4.0. The reference r eileen was not used to int erpret this result as normal/abnormal . [facility] HospitalRplxpcbDURXVCNPUY4423-10-81 10:29:00 Test Item Value Reference Range Interpretation Comments Basophils (test code = 0.7 See_Comment [Aut omated message] The Basophils) system which ge nerated this result tra nsmitted reference range : <=1.0. The reference r eileen was not used to int erpret this result as normal/abnormal . [facility] HospitalUvoeryaNBMJJWHOVR6236-89-14 10:29:00 Test Item Value Reference Range Interpretation Comments Neutrophils # (test code = Neutrophils 3.1 1.5-8.1 #) [facility] HospitalHwjoqykSYUMENEALO7859-21-49 10:29:00 Test Item Value Reference Range Interpretation Comments Lymphocytes # (test code = Lymphocytes 0.6 1.0-5.5 #) [facility] HospitalDhtfpgiWYGSSBLTYC1172-96-61 10:29:00 Test Item Value Reference Range Interpretation Comments Monocytes # (test code 1.0 See_Comment [Aut omated message] The = Monocytes #) system which generated this result tra nsmitted reference range : <=0.8. The reference r eileen was not used to int erpret this result as normal/abnormal . [facility] HospitalXdotuayCAMWLSBERE9668-68-91 10:29:00 Test Item Value Reference Range Interpretation Comments Eosinophils # (test code 0.3 See_Comment [A utomated message] The = Eosinophils #) system whic h generated this result tra nsmitted reference range : <=0.5. The reference r eileen was not used to int erpret this result as normal/abnormal . [facility] HospitalWvhhackCVSBGWNWVW8849-26-91 10:29:00 Test Item Value Reference Range Interpretation Comments Hep Bs Ag (test code Negative *NA*(04/08/20 = Hep Bs Ag) 5:29 AM) [facility] SIDSE9776-11-13 10:29:00 Test Item Value Reference Range Interpretation Comments Glucose Lvl (test code = Glucose Lvl) 91 70-99 [facility] [id number] 10:29:00 Test Item Value Reference Range Interpretation Comments BUN (test code = BUN) 44 7-22 [facility] JPBOQ3425-41-31 10:29:00 Test Item Value Reference Range Interpretation Comments Creatinine Lvl (test code = Creatinine 8.12 0.50-1.40 Lvl) [facility]2020-10-16 10:29:00 Test Item Value Reference Range Interpretation Comments Sodium Lvl (test code = Sodium Lvl) 139 135-145 [place] 076080-10-16 10:29:00 Test Item Value Reference Range Interpretation Comments Potassium Lvl (test code = Potassium 4.2 3.5-5.1 Lvl) [place] 076080-10-16 10:29:00 Test Item Value Reference Range Interpretation Comments Chloride Lvl (test code = Chloride Lvl) 107 95-109 [place] [address]-10-16 10:29:00 Test Item Value Reference Range Interpretation Comments CO2 (test code = CO2) 24 24-32 [place] 076080-10-16 10:29:00 Test Item Value Reference Range Interpretation Comments Calcium Lvl (test code = Calcium Lvl) 8.9 8.5-10.5 [place] 076080-10-16 10:29:00 Test Item Value Reference Range Interpretation Comments AGAP (test code = AGAP) 12.2 10.0-20.0 [place] 076080-10-16 10:29:00 Test Item Value Reference Range Interpretation Comments eGFR (test code = eGFR) 5 [facility] HospitalVdnlyhqBDRNRXJWLE1239-97-42 10:29:00 Test Item Value Reference Range Interpretation Comments PT (test code = PT) 15.6 s 12.0-14.7 [place] [address]-10-16 10:29:00 Test Item Value Reference Range Interpretation Comments INR (test code = INR) 1.23 1 0.85-1.17 [place] [address]-10-16 10:29:00 Test Item Value Reference Range Interpretation Comments PTT (test code = PTT) 34.9 s 22.9-35.8 [place] [address]-10-16 10:29:00 Test Item Value Reference Range Interpretation Comments WBC (test code = WBC) 5.0 3.7-10.4 [place] 790790-10-16 10:29:00 Test Item Value Reference Range Interpretation Comments RBC (test code = RBC) 3.39 4.20-5.40 [place] 790790-10-16 10:29:00 Test Item Value Reference Range Interpretation Comments Hgb (test code = Hgb) 9.8 12.0-16.0 [facility]XfbxwkhPOYPKJTIEO0083-86-80 10:29:00 Test Item Value Reference Range Interpretation Comments Hct (test code = Hct) 30.6 36.0-48.0 [facility]GdjkritNBGXFANRDJ8270-70-33 10:29:00 Test Item Value Reference Range Interpretation Comments MCV (test code = MCV) 90.2 80.0-98.0 [facility]UogpehqDCQWCLIIAC5061-58-51 10:29:00 Test Item Value Reference Range Interpretation Comments MCH (test code = MCH) 29.0 pg 27.0-31.0 [facility]DrwmujyJPUUCBEBKM2402-72-77 10:29:00 Test Item Value Reference Range Interpretation Comments MCHC (test code = MCHC) 32.2 32.0-36.0 [facility]DecnqjrOHKPDZAWFY6032-55-21 10:29:00 Test Item Value Reference Range Interpretation Comments RDW (test code = RDW) 15.4 11.5-14.5 [facility] HospitalTugznptMRIRBOOWUM6869-36-07 10:29:00 Test Item Value Reference Range Interpretation Comments Platelet (test code = Platelet) 109 133-450 [facility] HospitalYasyoulPOKXCHHGRO2556-26-46 10:29:00 Test Item Value Reference Range Interpretation Comments MPV (test code = MPV) 9.8 7.4-10.4 [facility] HospitalUoyrqlpOARLBVCXFW9233-09-77 10:29:00 Test Item Value Reference Range Interpretation Comments Segs (test code = Segs) 62.0 45.0-75.0 [facility] HospitalYqjqrdgRYMBCNHOJZ0634-64-77 10:29:00 Test Item Value Reference Range Interpretation Comments Lymphocytes (test code = Lymphocytes) 12.7 20.0-40.0 [facility] HospitalYnkhhxeKEFBFVXUSE7557-12-28 10:29:00 Test Item Value Reference Range Interpretation Comments Monocytes (test code = Monocytes) 19.5 2.0-12.0 [facility]BlgcspjZDSSXGKQQK3539-45-84 10:29:00 Test Item Value Reference Range Interpretation Comments Eosinophils (test code = Eosinophils) 5.1 <=4.0 [facility]CewcjeyCKZGRKTWUC2397-61-70 10:29:00 Test Item Value Reference Range Interpretation Comments Basophils (test code = Basophils) 0.7 <=1.0 [place] [address]-10-16 10:29:00 Test Item Value Reference Range Interpretation Comments Neutrophils # (test code = Neutrophils 3.1 1.5-8.1 #) [place] 790790-10-16 10:29:00 Test Item Value Reference Range Interpretation Comments Lymphocytes # (test code = Lymphocytes 0.6 1.0-5.5 #) [facility] HospitalMucejygGVSUONVTEF1938-21-75 10:29:00 Test Item Value Reference Range Interpretation Comments Monocytes # (test code = Monocytes #) 1.0 <=0.8 [place] [address]-10-16 10:29:00 Test Item Value Reference Range Interpretation Comments Eosinophils # (test code = Eosinophils 0.3 <=0.5 #) [facility] HospitalTvwnszgUJCUICQADU1888-78-89 10:29:00 Test Item Value Reference Range Interpretation Comments Hep Bs Ag (test code Negative *NA*(04/08/20 = Hep Bs Ag) 5:29 AM) [place] 076080-10-16 10:29:00 Test Item Value Reference Range Interpretation Comments Glucose Lvl (test code = Glucose Lvl) 91 70-99 [place] 076080-10-16 10:29:00 Test Item Value Reference Range Interpretation Comments BUN (test code = BUN) 44 7-22 [place] 076080-10-16 10:29:00 Test Item Value Reference Range Interpretation Comments Creatinine Lvl (test code = Creatinine 8.12 0.50-1.40 Lvl) [place] 076080-10-16 10:29:00 Test Item Value Reference Range Interpretation Comments Sodium Lvl (test code = Sodium Lvl) 139 135-145 [place] 076080-10-16 10:29:00 Test Item Value Reference Range Interpretation Comments Potassium Lvl (test code = Potassium 4.2 3.5-5.1 Lvl) [place] 076080-10-16 10:29:00 Test Item Value Reference Range Interpretation Comments Chloride Lvl (test code = Chloride Lvl) 107 95-109 [place] 076080-10-16 10:29:00 Test Item Value Reference Range Interpretation Comments CO2 (test code = CO2) 24 24-32 [place] 076080-10-16 10:29:00 Test Item Value Reference Range Interpretation Comments Calcium Lvl (test code = Calcium Lvl) 8.9 8.5-10.5 [facility] RLSNZ2900-92-84 10:29:00 Test Item Value Reference Range Interpretation Comments AGAP (test code = AGAP) 12.2 10.0-20.0 [facility] HospitalCHEM [id number] 10:29:00 Test Item Value Reference Range Interpretation Comments eGFR (test code = eGFR) 5 [facility] AreaEthdzeeSJDZPNRBGK9505-51-30 10:29:00 Test Item Value Reference Range Interpretation Comments PT (test code = PT) 15.6 s 12.0-14.7 [facility] AreaYfxbedvBKEOBFKKYG7893-34-82 10:29:00 Test Item Value Reference Range Interpretation Comments INR (test code = INR) 1.23 1 0.85-1.17 [facility] HospitalSbwwntgKBTIRKRMDW4154-22-52 10:29:00 Test Item Value Reference Range Interpretation Comments PTT (test code = PTT) 34.9 s 22.9-35.8 [facility] HospitalSuissaaNZQASBUBVE7242-37-02 10:29:00 Test Item Value Reference Range Interpretation Comments WBC (test code = WBC) 5.0 3.7-10.4 [facility] HospitalAwohblwYMQDZJNTEP3356-02-40 10:29:00 Test Item Value Reference Range Interpretation Comments RBC (test code = RBC) 3.39 4.20-5.40 [facility] HospitalAusevbuDKMMLOIQZP4026-57-20 10:29:00 Test Item Value Reference Range Interpretation Comments Hgb (test code = Hgb) 9.8 12.0-16.0 [facility]WfmnimfHGIVITMHSJ9519-83-79 10:29:00 Test Item Value Reference Range Interpretation Comments Hct (test code = Hct) 30.6 36.0-48.0 [facility]NmugdmoCOMULWYBQL8607-16-01 10:29:00 Test Item Value Reference Range Interpretation Comments MCV (test code = MCV) 90.2 80.0-98.0 [facility]TxazaykJXSSBBBNDC4784-33-19 10:29:00 Test Item Value Reference Range Interpretation Comments MCH (test code = MCH) 29.0 pg 27.0-31.0 [facility]SyxjzmbDHAYNMQGYV9992-45-41 10:29:00 Test Item Value Reference Range Interpretation Comments MCHC (test code = MCHC) 32.2 32.0-36.0 [facility]TznhpijYAOPTDKSLI3492-77-55 10:29:00 Test Item Value Reference Range Interpretation Comments RDW (test code = RDW) 15.4 11.5-14.5 [facility]DygqckpCYJBFUYXKN5664-80-90 10:29:00 Test Item Value Reference Range Interpretation Comments Platelet (test code = Platelet) 109 133-450 [facility]RvaewwgDDNKEVZSTT4953-24-62 10:29:00 Test Item Value Reference Range Interpretation Comments MPV (test code = MPV) 9.8 7.4-10.4 [facility] HospitalDmzlqfmBHDXEHKOAC4557-21-09 10:29:00 Test Item Value Reference Range Interpretation Comments Segs (test code = Segs) 62.0 45.0-75.0 [facility] HospitalIokcliqKBNLBTXXZP3060-18-15 10:29:00 Test Item Value Reference Range Interpretation Comments Lymphocytes (test code = Lymphocytes) 12.7 20.0-40.0 [facility]NpwkcyyMVEWMNANRB1000-78-70 10:29:00 Test Item Value Reference Range Interpretation Comments Monocytes (test code = Monocytes) 19.5 2.0-12.0 [facility]GddzsllQVOHBLWLMK2445-78-62 10:29:00 Test Item Value Reference Range Interpretation Comments Eosinophils (test code = Eosinophils) 5.1 <=4.0 [facility]VlzgnkaJETQDTGKPZ4864-47-30 10:29:00 Test Item Value Reference Range Interpretation Comments Basophils (test code = Basophils) 0.7 <=1.0 [facility]PjjmigfGVCLIWWSQI0039-71-58 10:29:00 Test Item Value Reference Range Interpretation Comments Neutrophils # (test code = Neutrophils 3.1 1.5-8.1 #) [facility]PthovesNWTFDZDCZM8275-65-26 10:29:00 Test Item Value Reference Range Interpretation Comments Lymphocytes # (test code = Lymphocytes 0.6 1.0-5.5 #) [facility]IcmdiqzTOIVPDGMBS8539-01-65 10:29:00 Test Item Value Reference Range Interpretation Comments Monocytes # (test code = Monocytes #) 1.0 <=0.8 [facility]DjtbxfxPLUONCAUZQ1664-66-36 10:29:00 Test Item Value Reference Range Interpretation Comments Eosinophils # (test code = Eosinophils 0.3 <=0.5 #) [facility] HospitalWgroqpdCWBODTCPER8707-66-51 10:29:00 Test Item Value Reference Range Interpretation Comments Hep Bs Ag (test code Negative *NA*(04/08/20 = Hep Bs Ag) 5:29 AM) [place] 076080-10-15 09:49:00 Test Item Value Reference Range Interpretation Comments Glucose Lvl (test code = Glucose Lvl) 110 70-99 [place] 076080-10-15 09:49:00 Test Item Value Reference Range Interpretation Comments BUN (test code = BUN) 41 7-22 [place] [address]-10-15 09:49:00 Test Item Value Reference Range Interpretation Comments Creatinine Lvl (test code = Creatinine 7.28 0.50-1.40 Lvl) [place] 076080-10-15 09:49:00 Test Item Value Reference Range Interpretation Comments Sodium Lvl (test code = Sodium Lvl) 141 135-145 [place] 076080-10-15 09:49:00 Test Item Value Reference Range Interpretation Comments Potassium Lvl (test code = Potassium 4.2 3.5-5.1 Lvl) [place] 0760[address]-10-15 09:49:00 Test Item Value Reference Range Interpretation Comments Chloride Lvl (test code = Chloride Lvl) 108 95-109 [place] 076080-10-15 09:49:00 Test Item Value Reference Range Interpretation Comments CO2 (test code = CO2) 24 24-32 [place] [address]-10-15 09:49:00 Test Item Value Reference Range Interpretation Comments Calcium Lvl (test code = Calcium Lvl) 8.8 8.5-10.5 [place] 0760[address]-10-15 09:49:00 Test Item Value Reference Range Interpretation Comments AGAP (test code = AGAP) 13.2 10.0-20.0 [place] [address]-10-15 09:49:00 Test Item Value Reference Range Interpretation Comments eGFR (test code = eGFR) 6 [place] 790790-10-15 09:49:00 Test Item Value Reference Range Interpretation Comments Segs (test code = Segs) 79.6 45.0-75.0 [place] 790790-10-15 09:49:00 Test Item Value Reference Range Interpretation Comments Lymphocytes (test code = Lymphocytes) 4.6 20.0-40.0 [place] [address]-10-15 09:49:00 Test Item Value Reference Range Interpretation Comments Monocytes (test code = Monocytes) 13.3 2.0-12.0 [facility] HospitalTmscoyxNEBEVWLERG1720-82-29 09:49:00 Test Item Value Reference Range Interpretation Comments Eosinophils (test code = 1.9 See_Comment [A utomated message] The Eosinophils) system which ge nerated this result tra nsmitted reference range : <=4.0. The reference r eileen was not used to int erpret this result as normal/abnormal . [facility] HospitalBrnivjuCNKJILIOEK0366-34-94 09:49:00 Test Item Value Reference Range Interpretation Comments Basophils (test code = 0.6 See_Comment [Aut omated message] The Basophils) system which ge nerated this result tra nsmitted reference range : <=1.0. The reference r eileen was not used to int erpret this result as normal/abnormal . [facility] HospitalPbsbvxzJTHWPRCTZN4957-13-13 09:49:00 Test Item Value Reference Range Interpretation Comments Neutrophils # (test code = Neutrophils 4.9 1.5-8.1 #) [place] 790790-10-15 09:49:00 Test Item Value Reference Range Interpretation Comments Lymphocytes # (test code = Lymphocytes 0.3 1.0-5.5 #) [facility] HospitalIuxvzgfTZSCTMKXJE0451-07-63 09:49:00 Test Item Value Reference Range Interpretation Comments Monocytes # (test code 0.8 See_Comment [Aut omated message] The = Monocytes #) system which generated this result tra nsmitted reference range : <=0.8. The reference r eileen was not used to int erpret this result as normal/abnormal . [place] [address]-10-15 09:49:00 Test Item Value Reference Range Interpretation Comments Eosinophils # (test code 0.1 See_Comment [A utomated message] The = Eosinophils #) system whic h generated this result tra nsmitted reference range : <=0.5. The reference r elieen was not used to int erpret this result as normal/abnormal . [facility] HospitalFdksxvpXPEAOHWYNM6357-77-61 09:49:00 Test Item Value Reference Range Interpretation Comments WBC (test code = WBC) 6.1 3.7-10.4 [place] [address]-10-15 09:49:00 Test Item Value Reference Range Interpretation Comments RBC (test code = RBC) 3.59 4.20-5.40 [place] [address]-10-15 09:49:00 Test Item Value Reference Range Interpretation Comments Hgb (test code = Hgb) 10.4 12.0-16.0 [place] [address]-10-15 09:49:00 Test Item Value Reference Range Interpretation Comments Hct (test code = Hct) 32.5 36.0-48.0 [place] [address]-10-15 09:49:00 Test Item Value Reference Range Interpretation Comments MCV (test code = MCV) 90.7 80.0-98.0 [place] [address]-10-15 09:49:00 Test Item Value Reference Range Interpretation Comments MCH (test code = MCH) 29.0 pg 27.0-31.0 [place] [address]-10-15 09:49:00 Test Item Value Reference Range Interpretation Comments MCHC (test code = MCHC) 31.9 32.0-36.0 [place] [address]-10-15 09:49:00 Test Item Value Reference Range Interpretation Comments RDW (test code = RDW) 15.4 11.5-14.5 [place] [address]-10-15 09:49:00 Test Item Value Reference Range Interpretation Comments Platelet (test code = Platelet) 111 133-450 [place] [address]-10-15 09:49:00 Test Item Value Reference Range Interpretation Comments MPV (test code = MPV) 9.5 7.4-10.4 [place] 076080-10-15 09:49:00 Test Item Value Reference Range Interpretation Comments Glucose Lvl (test code = Glucose Lvl) 110 70-99 [place] 076080-10-15 09:49:00 Test Item Value Reference Range Interpretation Comments BUN (test code = BUN) 41 7-22 [place] 076080-10-15 09:49:00 Test Item Value Reference Range Interpretation Comments Creatinine Lvl (test code = Creatinine 7.28 0.50-1.40 Lvl) [place] 076080-10-15 09:49:00 Test Item Value Reference Range Interpretation Comments Sodium Lvl (test code = Sodium Lvl) 141 135-145 [place] [address]-10-15 09:49:00 Test Item Value Reference Range Interpretation Comments Potassium Lvl (test code = Potassium 4.2 3.5-5.1 Lvl) [place] 076080-10-15 09:49:00 Test Item Value Reference Range Interpretation Comments Chloride Lvl (test code = Chloride Lvl) 108 95-109 [place] 076080-10-15 09:49:00 Test Item Value Reference Range Interpretation Comments CO2 (test code = CO2) 24 24-32 [place] [address]-10-15 09:49:00 Test Item Value Reference Range Interpretation Comments Calcium Lvl (test code = Calcium Lvl) 8.8 8.5-10.5 [place] [address]-10-15 09:49:00 Test Item Value Reference Range Interpretation Comments AGAP (test code = AGAP) 13.2 10.0-20.0 [place] [address]-10-15 09:49:00 Test Item Value Reference Range Interpretation Comments eGFR (test code = eGFR) 6 [place] [address]-10-15 09:49:00 Test Item Value Reference Range Interpretation Comments Segs (test code = Segs) 79.6 45.0-75.0 [place] [address]-10-15 09:49:00 Test Item Value Reference Range Interpretation Comments Lymphocytes (test code = Lymphocytes) 4.6 20.0-40.0 [place] [address]-10-15 09:49:00 Test Item Value Reference Range Interpretation Comments Monocytes (test code = Monocytes) 13.3 2.0-12.0 [address]10-15 09:49:00 Test Item Value Reference Range Interpretation Comments Eosinophils (test code = 1.9 See_Comment [A utomated message] The Eosinophils) system which ge nerated this result tra nsmitted reference range : <=4.0. The reference r eileen was not used to int erpret this result as normal/abnormal . [address]10-15 09:49:00 Test Item Value Reference Range Interpretation Comments Basophils (test code = 0.6 See_Comment [Aut omated message] The Basophils) system which ge nerated this result tra nsmitted reference range : <=1.0. The reference r eileen was not used to int erpret this result as normal/abnormal . [facility]AhciiqiYDKPUWEGND3403-74-72 09:49:00 Test Item Value Reference Range Interpretation Comments Neutrophils # (test code = Neutrophils 4.9 1.5-8.1 #) [facility]MznqvcuNHBAWGMSHK5461-12-96 09:49:00 Test Item Value Reference Range Interpretation Comments Lymphocytes # (test code = Lymphocytes 0.3 1.0-5.5 #) [facility] HospitalXdsxxasUENEMPOZUJ0891-41-42 09:49:00 Test Item Value Reference Range Interpretation Comments Monocytes # (test code 0.8 See_Comment [Aut omated message] The = Monocytes #) system which generated this result tra nsmitted reference range : <=0.8. The reference r eileen was not used to int erpret this result as normal/abnormal . [facility] HospitalWdfkpgtTHMJCJFGHC9096-12-27 09:49:00 Test Item Value Reference Range Interpretation Comments Eosinophils # (test code 0.1 See_Comment [A utomated message] The = Eosinophils #) system whic h generated this result tra nsmitted reference range : <=0.5. The reference r eileen was not used to int erpret this result as normal/abnormal . [facility] HospitalSesgcboUBOFXYJIXP6863-99-87 09:49:00 Test Item Value Reference Range Interpretation Comments WBC (test code = WBC) 6.1 3.7-10.4 [facility] HospitalVmldadySJOZJYMSAX4415-28-14 09:49:00 Test Item Value Reference Range Interpretation Comments RBC (test code = RBC) 3.59 4.20-5.40 [place] [address]-10-15 09:49:00 Test Item Value Reference Range Interpretation Comments Hgb (test code = Hgb) 10.4 12.0-16.0 [place] [address]-10-15 09:49:00 Test Item Value Reference Range Interpretation Comments Hct (test code = Hct) 32.5 36.0-48.0 [place] [address]-10-15 09:49:00 Test Item Value Reference Range Interpretation Comments MCV (test code = MCV) 90.7 80.0-98.0 [place] [address]-10-15 09:49:00 Test Item Value Reference Range Interpretation Comments MCH (test code = MCH) 29.0 pg 27.0-31.0 [place] 790790-10-15 09:49:00 Test Item Value Reference Range Interpretation Comments MCHC (test code = MCHC) 31.9 32.0-36.0 [place] 790790-10-15 09:49:00 Test Item Value Reference Range Interpretation Comments RDW (test code = RDW) 15.4 11.5-14.5 [place] [address]-10-15 09:49:00 Test Item Value Reference Range Interpretation Comments Platelet (test code = Platelet) 111 133-450 [facility] HospitalZpqseqaYTHYIOODXF8843-66-15 09:49:00 Test Item Value Reference Range Interpretation Comments MPV (test code = MPV) 9.5 7.4-10.4 [facility]2020-10-15 09:49:00 Test Item Value Reference Range Interpretation Comments Glucose Lvl (test code = Glucose Lvl) 110 70-99 [facility]2020-10-15 09:49:00 Test Item Value Reference Range Interpretation Comments BUN (test code = BUN) 41 7-22 [place] 076080-10-15 09:49:00 Test Item Value Reference Range Interpretation Comments Creatinine Lvl (test code = Creatinine 7.28 0.50-1.40 Lvl) [facility]2020-10-15 09:49:00 Test Item Value Reference Range Interpretation Comments Sodium Lvl (test code = Sodium Lvl) 141 135-145 [facility]2020-10-15 09:49:00 Test Item Value Reference Range Interpretation Comments Potassium Lvl (test code = Potassium 4.2 3.5-5.1 Lvl) [place] 076080-10-15 09:49:00 Test Item Value Reference Range Interpretation Comments Chloride Lvl (test code = Chloride Lvl) 108 95-109 [facility]2020-10-15 09:49:00 Test Item Value Reference Range Interpretation Comments CO2 (test code = CO2) 24 24-32 [place] 076080-10-15 09:49:00 Test Item Value Reference Range Interpretation Comments Calcium Lvl (test code = Calcium Lvl) 8.8 8.5-10.5 [place] 076080-10-15 09:49:00 Test Item Value Reference Range Interpretation Comments AGAP (test code = AGAP) 13.2 10.0-20.0 [place] 076080-10-15 09:49:00 Test Item Value Reference Range Interpretation Comments eGFR (test code = eGFR) 6 [facility] 09:49:00 Test Item Value Reference Range Interpretation Comments Segs (test code = Segs) 79.6 45.0-75.0 [place] 790790-10-15 09:49:00 Test Item Value Reference Range Interpretation Comments Lymphocytes (test code = Lymphocytes) 4.6 20.0-40.0 [place] [address]-10-15 09:49:00 Test Item Value Reference Range Interpretation Comments Monocytes (test code = Monocytes) 13.3 2.0-12.0 [place] [address]-10-15 09:49:00 Test Item Value Reference Range Interpretation Comments Eosinophils (test code = 1.9 See_Comment [A utomated message] The Eosinophils) system which ge nerated this result tra nsmitted reference range : <=4.0. The reference r eileen was not used to int erpret this result as normal/abnormal . [place] [address]-10-15 09:49:00 Test Item Value Reference Range Interpretation Comments Basophils (test code = 0.6 See_Comment [Aut omated message] The Basophils) system which ge nerated this result tra nsmitted reference range : <=1.0. The reference r eileen was not used to int erpret this result as normal/abnormal . [place] 790790-10-15 09:49:00 Test Item Value Reference Range Interpretation Comments Neutrophils # (test code = Neutrophils 4.9 1.5-8.1 #) [place] [address]-10-15 09:49:00 Test Item Value Reference Range Interpretation Comments Lymphocytes # (test code = Lymphocytes 0.3 1.0-5.5 #) [place] [address]-10-15 09:49:00 Test Item Value Reference Range Interpretation Comments Monocytes # (test code 0.8 See_Comment [Aut omated message] The = Monocytes #) system which generated this result tra nsmitted reference range : <=0.8. The reference r eileen was not used to int erpret this result as normal/abnormal . [facility]ON7460[facility] 09:49:00 Test Item Value Reference Range Interpretation Comments Eosinophils # (test code 0.1 See_Comment [A utomated message] The = Eosinophils #) system [employer] h generated this result tra nsmitted reference range : <=0.5. The reference r eileen was not used to int erpret this result as normal/abnormal . [facility]OvhtvyiHMRILQWIAK2102-64-08 09:49:00 Test Item Value Reference Range Interpretation Comments WBC (test code = WBC) 6.1 3.7-10.4 [place] 790790-10-15 09:49:00 Test Item Value Reference Range Interpretation Comments RBC (test code = RBC) 3.59 4.20-5.40 [place] [address]-10-15 09:49:00 Test Item Value Reference Range Interpretation Comments Hgb (test code = Hgb) 10.4 12.0-16.0 [place] [address]-10-15 09:49:00 Test Item Value Reference Range Interpretation Comments Hct (test code = Hct) 32.5 36.0-48.0 [place] [address]-10-15 09:49:00 Test Item Value Reference Range Interpretation Comments MCV (test code = MCV) 90.7 80.0-98.0 [place] [address]-10-15 09:49:00 Test Item Value Reference Range Interpretation Comments MCH (test code = MCH) 29.0 pg 27.0-31.0 [place] 790790-10-15 09:49:00 Test Item Value Reference Range Interpretation Comments MCHC (test code = MCHC) 31.9 32.0-36.0 [place] [address]-10-15 09:49:00 Test Item Value Reference Range Interpretation Comments RDW (test code = RDW) 15.4 11.5-14.5 [place] 790790-10-15 09:49:00 Test Item Value Reference Range Interpretation Comments Platelet (test code = Platelet) 111 133-450 [facility]JptzncxWHCJFLYVQR4312-29-98 09:49:00 Test Item Value Reference Range Interpretation Comments MPV (test code = MPV) 9.5 7.4-10.4 [place] 076080-10-15 09:49:00 Test Item Value Reference Range Interpretation Comments Glucose Lvl (test code = Glucose Lvl) 110 70-99 [place] [address]-10-15 09:49:00 Test Item Value Reference Range Interpretation Comments BUN (test code = BUN) 41 7-22 [place] 076080-10-15 09:49:00 Test Item Value Reference Range Interpretation Comments Creatinine Lvl (test code = Creatinine 7.28 0.50-1.40 Lvl) [place] [address]-10-15 09:49:00 Test Item Value Reference Range Interpretation Comments Sodium Lvl (test code = Sodium Lvl) 141 135-145 [place] 076080-10-15 09:49:00 Test Item Value Reference Range Interpretation Comments Potassium Lvl (test code = Potassium 4.2 3.5-5.1 Lvl) [place] 076080-10-15 09:49:00 Test Item Value Reference Range Interpretation Comments Chloride Lvl (test code = Chloride Lvl) 108 95-109 [place] [address]-10-15 09:49:00 Test Item Value Reference Range Interpretation Comments CO2 (test code = CO2) 24 24-32 [place] [address]-10-15 09:49:00 Test Item Value Reference Range Interpretation Comments Calcium Lvl (test code = Calcium Lvl) 8.8 8.5-10.5 [place] 076080-10-15 09:49:00 Test Item Value Reference Range Interpretation Comments AGAP (test code = AGAP) 13.2 10.0-20.0 [place] 076080-10-15 09:49:00 Test Item Value Reference Range Interpretation Comments eGFR (test code = eGFR) 6 [place] [address]-10-15 09:49:00 Test Item Value Reference Range Interpretation Comments Segs (test code = Segs) 79.6 45.0-75.0 [place] [address]-10-15 09:49:00 Test Item Value Reference Range Interpretation Comments Lymphocytes (test code = Lymphocytes) 4.6 20.0-40.0 [place] [address]-10-15 09:49:00 Test Item Value Reference Range Interpretation Comments Monocytes (test code = Monocytes) 13.3 2.0-12.0 [place] 790790-10-15 09:49:00 Test Item Value Reference Range Interpretation Comments Eosinophils (test code = 1.9 See_Comment [A utomated message] The Eosinophils) system which ge nerated this result tra nsmitted reference range : <=4.0. The reference r eileen was not used to int erpret this result as normal/abnormal . [place] 790790-10-15 09:49:00 Test Item Value Reference Range Interpretation Comments Basophils (test code = 0.6 See_Comment [Aut omated message] The Basophils) system which ge nerated this result tra nsmitted reference range : <=1.0. The reference r eileen was not used to int erpret this result as normal/abnormal . [place] 790790-10-15 09:49:00 Test Item Value Reference Range Interpretation Comments Neutrophils # (test code = Neutrophils 4.9 1.5-8.1 #) [place] 790790-10-15 09:49:00 Test Item Value Reference Range Interpretation Comments Lymphocytes # (test code = Lymphocytes 0.3 1.0-5.5 #) [place] 790790-10-15 09:49:00 Test Item Value Reference Range Interpretation Comments Monocytes # (test code 0.8 See_Comment [Aut omated message] The = Monocytes #) system which generated this result tra nsmitted reference range : <=0.8. The reference r eileen was not used to int erpret this result as normal/abnormal . [facility] HospitalSfdkjijELMOMQINAP5307-29-78 09:49:00 Test Item Value Reference Range Interpretation Comments Eosinophils # (test code 0.1 See_Comment [A utomated message] The = Eosinophils #) system whic h generated this result tra nsmitted reference range : <=0.5. The reference r eileen was not used to int erpret this result as normal/abnormal . [place] 790790-10-15 09:49:00 Test Item Value Reference Range Interpretation Comments WBC (test code = WBC) 6.1 3.7-10.4 [place] [address]-10-15 09:49:00 Test Item Value Reference Range Interpretation Comments RBC (test code = RBC) 3.59 4.20-5.40 [place] [address]-10-15 09:49:00 Test Item Value Reference Range Interpretation Comments Hgb (test code = Hgb) 10.4 12.0-16.0 [place] [address]-10-15 09:49:00 Test Item Value Reference Range Interpretation Comments Hct (test code = Hct) 32.5 36.0-48.0 [place] [address]-10-15 09:49:00 Test Item Value Reference Range Interpretation Comments MCV (test code = MCV) 90.7 80.0-98.0 [place] [address]-10-15 09:49:00 Test Item Value Reference Range Interpretation Comments MCH (test code = MCH) 29.0 pg 27.0-31.0 [place] [address]-10-15 09:49:00 Test Item Value Reference Range Interpretation Comments MCHC (test code = MCHC) 31.9 32.0-36.0 [place] 790790-10-15 09:49:00 Test Item Value Reference Range Interpretation Comments RDW (test code = RDW) 15.4 11.5-14.5 [place] [address]-10-15 09:49:00 Test Item Value Reference Range Interpretation Comments Platelet (test code = Platelet) 111 133-450 [place] [address]-10-15 09:49:00 Test Item Value Reference Range Interpretation Comments MPV (test code = MPV) 9.5 7.4-10.4 [facility]2020-10-15 09:49:00 Test Item Value Reference Range Interpretation Comments Glucose Lvl (test code = Glucose Lvl) 110 70-99 [place] 076080-10-15 09:49:00 Test Item Value Reference Range Interpretation Comments BUN (test code = BUN) 41 7-22 [place] 076080-10-15 09:49:00 Test Item Value Reference Range Interpretation Comments Creatinine Lvl (test code = Creatinine 7.28 0.50-1.40 Lvl) [place] 076080-10-15 09:49:00 Test Item Value Reference Range Interpretation Comments Sodium Lvl (test code = Sodium Lvl) 141 135-145 [place] 076080-10-15 09:49:00 Test Item Value Reference Range Interpretation Comments Potassium Lvl (test code = Potassium 4.2 3.5-5.1 Lvl) [place] 076080-10-15 09:49:00 Test Item Value Reference Range Interpretation Comments Chloride Lvl (test code = Chloride Lvl) 108 95-109 [place] [address]-10-15 09:49:00 Test Item Value Reference Range Interpretation Comments CO2 (test code = CO2) 24 24-32 [place] [address]-10-15 09:49:00 Test Item Value Reference Range Interpretation Comments Calcium Lvl (test code = Calcium Lvl) 8.8 8.5-10.5 [place] [address]-10-15 09:49:00 Test Item Value Reference Range Interpretation Comments AGAP (test code = AGAP) 13.2 10.0-20.0 [place] [address]-10-15 09:49:00 Test Item Value Reference Range Interpretation Comments eGFR (test code = eGFR) 6 [place] 790790-10-15 09:49:00 Test Item Value Reference Range Interpretation Comments Segs (test code = Segs) 79.6 45.0-75.0 [place] [address]-10-15 09:49:00 Test Item Value Reference Range Interpretation Comments Lymphocytes (test code = Lymphocytes) 4.6 20.0-40.0 [place] [address]-10-15 09:49:00 Test Item Value Reference Range Interpretation Comments Monocytes (test code = Monocytes) 13.3 2.0-12.0 [place] [address]-10-15 09:49:00 Test Item Value Reference Range Interpretation Comments Eosinophils (test code = 1.9 See_Comment [A utomated message] The Eosinophils) system which ge nerated this result tra nsmitted reference range : <=4.0. The reference r eileen was not used to int erpret this result as normal/abnormal . [place] [address]-10-15 09:49:00 Test Item Value Reference Range Interpretation Comments Basophils (test code = 0.6 See_Comment [Aut omated message] The Basophils) system which ge nerated this result tra nsmitted reference range : <=1.0. The reference r eileen was not used to int erpret this result as normal/abnormal . [facility]MsegmbaYHQAGNSDRX7701-05-09 09:49:00 Test Item Value Reference Range Interpretation Comments Neutrophils # (test code = Neutrophils 4.9 1.5-8.1 #) [facility]UgregbzMHQLEFQFEJ2501-00-15 09:49:00 Test Item Value Reference Range Interpretation Comments Lymphocytes # (test code = Lymphocytes 0.3 1.0-5.5 #) [facility] HospitalCioajysVEYCMURWCR3680-57-57 09:49:00 Test Item Value Reference Range Interpretation Comments Monocytes # (test code 0.8 See_Comment [Aut omated message] The = Monocytes #) system which generated this result tra nsmitted reference range : <=0.8. The reference r eileen was not used to int erpret this result as normal/abnormal . [place] [address]-10-15 09:49:00 Test Item Value Reference Range Interpretation Comments Eosinophils # (test code 0.1 See_Comment [A utomated message] The = Eosinophils #) system whic h generated this result tra nsmitted reference range : <=0.5. The reference r eileen was not used to int erpret this result as normal/abnormal . [facility] HospitalJqkczqcIGSDFEUJLN1464-97-96 09:49:00 Test Item Value Reference Range Interpretation Comments WBC (test code = WBC) 6.1 3.7-10.4 [facility] HospitalVhaepyoRTSEIMFYMX6824-17-84 09:49:00 Test Item Value Reference Range Interpretation Comments RBC (test code = RBC) 3.59 4.20-5.40 [place] 790790-10-15 09:49:00 Test Item Value Reference Range Interpretation Comments Hgb (test code = Hgb) 10.4 12.0-16.0 [place] [address]-10-15 09:49:00 Test Item Value Reference Range Interpretation Comments Hct (test code = Hct) 32.5 36.0-48.0 [place] [address]-10-15 09:49:00 Test Item Value Reference Range Interpretation Comments MCV (test code = MCV) 90.7 80.0-98.0 [place] 790790-10-15 09:49:00 Test Item Value Reference Range Interpretation Comments MCH (test code = MCH) 29.0 pg 27.0-31.0 [place] [address]-10-15 09:49:00 Test Item Value Reference Range Interpretation Comments MCHC (test code = MCHC) 31.9 32.0-36.0 [place] [address]-10-15 09:49:00 Test Item Value Reference Range Interpretation Comments RDW (test code = RDW) 15.4 11.5-14.5 [place] [address]-10-15 09:49:00 Test Item Value Reference Range Interpretation Comments Platelet (test code = Platelet) 111 133-450 [place] [address]-10-15 09:49:00 Test Item Value Reference Range Interpretation Comments MPV (test code = MPV) 9.5 7.4-10.4 [place] 076080-10-15 09:49:00 Test Item Value Reference Range Interpretation Comments Glucose Lvl (test code = Glucose Lvl) 110 70-99 [place] 076080-10-15 09:49:00 Test Item Value Reference Range Interpretation Comments BUN (test code = BUN) 41 7-22 [place] 076080-10-15 09:49:00 Test Item Value Reference Range Interpretation Comments Creatinine Lvl (test code = Creatinine 7.28 0.50-1.40 Lvl) [place] 076080-10-15 09:49:00 Test Item Value Reference Range Interpretation Comments Sodium Lvl (test code = Sodium Lvl) 141 135-145 [place] [address]-10-15 09:49:00 Test Item Value Reference Range Interpretation Comments Potassium Lvl (test code = Potassium 4.2 3.5-5.1 Lvl) [place] 076080-10-15 09:49:00 Test Item Value Reference Range Interpretation Comments Chloride Lvl (test code = Chloride Lvl) 108 95-109 [place] [address]-10-15 09:49:00 Test Item Value Reference Range Interpretation Comments CO2 (test code = CO2) 24 24-32 [place] [address]-10-15 09:49:00 Test Item Value Reference Range Interpretation Comments Calcium Lvl (test code = Calcium Lvl) 8.8 8.5-10.5 [place] 076080-10-15 09:49:00 Test Item Value Reference Range Interpretation Comments AGAP (test code = AGAP) 13.2 10.0-20.0 [facility]2020-10-15 09:49:00 Test Item Value Reference Range Interpretation Comments eGFR (test code = eGFR) 6 [place] 790790-10-15 09:49:00 Test Item Value Reference Range Interpretation Comments Segs (test code = Segs) 79.6 45.0-75.0 [place] [address]-10-15 09:49:00 Test Item Value Reference Range Interpretation Comments Lymphocytes (test code = Lymphocytes) 4.6 20.0-40.0 [place] [address]-10-15 09:49:00 Test Item Value Reference Range Interpretation Comments Monocytes (test code = Monocytes) 13.3 2.0-12.0 [place] 790790-10-15 09:49:00 Test Item Value Reference Range Interpretation Comments Eosinophils (test code = Eosinophils) 1.9 <=4.0 [place] 790790-10-15 09:49:00 Test Item Value Reference Range Interpretation Comments Basophils (test code = Basophils) 0.6 <=1.0 [place] [address]-10-15 09:49:00 Test Item Value Reference Range Interpretation Comments Neutrophils # (test code = Neutrophils 4.9 1.5-8.1 #) [facility] HospitalXirchmxLHHVBHNDBC6796-34-27 09:49:00 Test Item Value Reference Range Interpretation Comments Lymphocytes # (test code = Lymphocytes 0.3 1.0-5.5 #) [place] 790790-10-15 09:49:00 Test Item Value Reference Range Interpretation Comments Monocytes # (test code = Monocytes #) 0.8 <=0.8 [place] [address]-10-15 09:49:00 Test Item Value Reference Range Interpretation Comments Eosinophils # (test code = Eosinophils 0.1 <=0.5 #) [place] [address]-10-15 09:49:00 Test Item Value Reference Range Interpretation Comments WBC (test code = WBC) 6.1 3.7-10.4 [place] [address]-10-15 09:49:00 Test Item Value Reference Range Interpretation Comments RBC (test code = RBC) 3.59 4.20-5.40 [place] 790790-10-15 09:49:00 Test Item Value Reference Range Interpretation Comments Hgb (test code = Hgb) 10.4 12.0-16.0 [place] [address]-10-15 09:49:00 Test Item Value Reference Range Interpretation Comments Hct (test code = Hct) 32.5 36.0-48.0 [place] [address]-10-15 09:49:00 Test Item Value Reference Range Interpretation Comments MCV (test code = MCV) 90.7 80.0-98.0 [place] [address]-10-15 09:49:00 Test Item Value Reference Range Interpretation Comments MCH (test code = MCH) 29.0 pg 27.0-31.0 [place] [address]-10-15 09:49:00 Test Item Value Reference Range Interpretation Comments MCHC (test code = MCHC) 31.9 32.0-36.0 [place] [address]-10-15 09:49:00 Test Item Value Reference Range Interpretation Comments RDW (test code = RDW) 15.4 11.5-14.5 [place] [address]-10-15 09:49:00 Test Item Value Reference Range Interpretation Comments Platelet (test code = Platelet) 111 133-450 [place] [address]-10-15 09:49:00 Test Item Value Reference Range Interpretation Comments MPV (test code = MPV) 9.5 7.4-10.4 [place] 076080-10-15 09:49:00 Test Item Value Reference Range Interpretation Comments Glucose Lvl (test code = Glucose Lvl) 110 70-99 [place] 076080-10-15 09:49:00 Test Item Value Reference Range Interpretation Comments BUN (test code = BUN) 41 7-22 [place] [address]-10-15 09:49:00 Test Item Value Reference Range Interpretation Comments Creatinine Lvl (test code = Creatinine 7.28 0.50-1.40 Lvl) [place] 076080-10-15 09:49:00 Test Item Value Reference Range Interpretation Comments Sodium Lvl (test code = Sodium Lvl) 141 135-145 [place] 076080-10-15 09:49:00 Test Item Value Reference Range Interpretation Comments Potassium Lvl (test code = Potassium 4.2 3.5-5.1 Lvl) [place] 076080-10-15 09:49:00 Test Item Value Reference Range Interpretation Comments Chloride Lvl (test code = Chloride Lvl) 108 95-109 [place] [address]-10-15 09:49:00 Test Item Value Reference Range Interpretation Comments CO2 (test code = CO2) 24 24-32 [place] [address]-10-15 09:49:00 Test Item Value Reference Range Interpretation Comments Calcium Lvl (test code = Calcium Lvl) 8.8 8.5-10.5 [place] [address]-10-15 09:49:00 Test Item Value Reference Range Interpretation Comments AGAP (test code = AGAP) 13.2 10.0-20.0 [place] [address]-10-15 09:49:00 Test Item Value Reference Range Interpretation Comments eGFR (test code = eGFR) 6 [place] [address]-10-15 09:49:00 Test Item Value Reference Range Interpretation Comments Segs (test code = Segs) 79.6 45.0-75.0 [place] [address]-10-15 09:49:00 Test Item Value Reference Range Interpretation Comments Lymphocytes (test code = Lymphocytes) 4.6 20.0-40.0 [place] [address]-10-15 09:49:00 Test Item Value Reference Range Interpretation Comments Monocytes (test code = Monocytes) 13.3 2.0-12.0 [place] [address]-10-15 09:49:00 Test Item Value Reference Range Interpretation Comments Eosinophils (test code = Eosinophils) 1.9 <=4.0 [place] [address]-10-15 09:49:00 Test Item Value Reference Range Interpretation Comments Basophils (test code = Basophils) 0.6 <=1.0 [place] [address]-10-15 09:49:00 Test Item Value Reference Range Interpretation Comments Neutrophils # (test code = Neutrophils 4.9 1.5-8.1 #) [place] [address]-10-15 09:49:00 Test Item Value Reference Range Interpretation Comments Lymphocytes # (test code = Lymphocytes 0.3 1.0-5.5 #) [place] [address]-10-15 09:49:00 Test Item Value Reference Range Interpretation Comments Monocytes # (test code = Monocytes #) 0.8 <=0.8 [facility]305[facility] 09:49:00 Test Item Value Reference Range Interpretation Comments Eosinophils # (test code = Eosinophils 0.1 <=0.5 #) [facility]MfisjzrCDLIJVRBVS2014-67-85 09:49:00 Test Item Value Reference Range Interpretation Comments WBC (test code = WBC) 6.1 3.7-10.4 [facility]vmtefcPBJVFPPVCM7664-18-53 09:49:00 Test Item Value Reference Range Interpretation Comments RBC (test code = RBC) 3.59 4.20-5.40 [facility]jbhvyKJGSCMNHTY5066-64-58 09:49:00 Test Item Value Reference Range Interpretation Comments Hgb (test code = Hgb) 10.4 12.0-16.0 [facility]NztshpsFQGKWIBKLZ6623-38-52 09:49:00 Test Item Value Reference Range Interpretation Comments Hct (test code = Hct) 32.5 36.0-48.0 [facility]KdciyxdHZNDHKWTKL9070-58-81 09:49:00 Test Item Value Reference Range Interpretation Comments MCV (test code = MCV) 90.7 80.0-98.0 [facility]EdztwbaVRVWIOPXSF9781-26-63 09:49:00 Test Item Value Reference Range Interpretation Comments MCH (test code = MCH) 29.0 pg 27.0-31.0 [facility]KnspsjwWZGMAZGCVI3347-78-66 09:49:00 Test Item Value Reference Range Interpretation Comments MCHC (test code = MCHC) 31.9 32.0-36.0 [facility]OjlwqhxPXYTZTTBZM9191-09-75 09:49:00 Test Item Value Reference Range Interpretation Comments RDW (test code = RDW) 15.4 11.5-14.5 [facility] HospitalAcagwldDUQABKEIHL9544-48-02 09:49:00 Test Item Value Reference Range Interpretation Comments Platelet (test code = Platelet) 111 133-450 [facility] HospitalPsdpferQNXGQKMCTU1856-00-94 09:49:00 Test Item Value Reference Range Interpretation Comments MPV (test code = MPV) 9.5 7.4-10.4 [facility] [id number] 20:57:00 Test Item Value Reference Range Interpretation Comments RBC product (test code Product available = RBC product) 4(04/06/20 3:57 PM) [facility] [id number] 20:57:00 Test Item Value Reference Range Interpretation Comments RBC product (test code Product available = RBC product) 4(04/06/20 3:57 PM) [facility] BANK [id number] 20:57:00 Test Item Value Reference Range Interpretation Comments RBC product (test code Product available = RBC product) 4(04/06/20 3:57 PM) [facility] [id number] 20:57:00 Test Item Value Reference Range Interpretation Comments RBC product (test code Product available = RBC product) 4(04/06/20 3:57 PM) [facility] [id number] 20:57:00 Test Item Value Reference Range Interpretation Comments RBC product (test code Product available = RBC product) 4(04/06/20 3:57 PM) [facility] [id number] 20:57:00 Test Item Value Reference Range Interpretation Comments RBC product (test code Product available = RBC product) 4(04/06/20 3:57 PM) [facility] [id number] 20:57:00 Test Item Value Reference Range Interpretation Comments RBC product (test code Product available = RBC product) 4(04/06/20 3:57 PM) [facility] [id number] 16:13:00 Test Item Value Reference Range Interpretation Comments ABO/Rh (test code = ABO/Rh) B POS [facility] [id number] 16:13:00 Test Item Value Reference Range Interpretation Comments Antibody Scrn (test Negative (04/06/20 code = Antibody Scrn) 11:13 AM) [facility] [id number] 16:13:00 Test Item Value Reference Range Interpretation Comments ABO/Rh (test code = ABO/Rh) B POS [facility] [id number] 16:13:00 Test Item Value Reference Range Interpretation Comments Antibody Scrn (test Negative (04/06/20 code = Antibody Scrn) 11:13 AM) [facility] [facility] [id number] 16:13:00 Test Item Value Reference Range Interpretation Comments ABO/Rh (test code = ABO/Rh) B POS [facility] [employer] [id number] 16:13:00 Test Item Value Reference Range Interpretation Comments Antibody Scrn (test Negative (04/06/20 code = Antibody Scrn) 11:13 AM) [facility] [employer] [id number] 16:13:00 Test Item Value Reference Range Interpretation Comments ABO/Rh (test code = ABO/Rh) B POS [facility] [employer] [id number] 16:13:00 Test Item Value Reference Range Interpretation Comments Antibody Scrn (test Negative (04/06/20 code = Antibody Scrn) 11:13 AM) [facility] [employer] [id number] 16:13:00 Test Item Value Reference Range Interpretation Comments ABO/Rh (test code = ABO/Rh) B [facility] [employer] [id number] 16:13:00 Test Item Value Reference Range Interpretation Comments Antibody Scrn (test Negative (04/06/20 code = Antibody Scrn) 11:13 AM) [facility] [employer] [id number] 16:13:00 Test Item Value Reference Range Interpretation Comments ABO/Rh (test code = ABO/Rh) B [facility] [employer] [id number] 16:13:00 Test Item Value Reference Range Interpretation Comments Antibody Scrn (test Negative (04/06/20 code = Antibody Scrn) 11:13 AM) [facility] [employer] [id number] 16:13:00 Test Item Value Reference Range Interpretation Comments ABO/Rh (test code = ABO/Rh) B [facility] [employer] [id number] 16:13:00 Test Item Value Reference Range Interpretation Comments Antibody Scrn (test Negative (04/06/20 code = Antibody Scrn) 11:13 AM) [employer] [id number] 09:45:00 Test Item Value Reference Range Interpretation Comments Glucose Lvl (test code = Glucose Lvl) 83 70-99 [employer] [id number] 09:45:00 Test Item Value Reference Range Interpretation Comments BUN (test code = BUN) 36 7-22 [employer] [id number] 09:45:00 Test Item Value Reference Range Interpretation Comments Creatinine Lvl (test code = Creatinine 6.40 0.50-1.40 Lvl) [facility]2020-10-14 09:45:00 Test Item Value Reference Range Interpretation Comments Sodium Lvl (test code = Sodium Lvl) 140 135-145 [place] 076080-10-14 09:45:00 Test Item Value Reference Range Interpretation Comments Potassium Lvl (test code = Potassium 3.6 3.5-5.1 Lvl) [facility]2020-10-14 09:45:00 Test Item Value Reference Range Interpretation Comments Chloride Lvl (test code = Chloride Lvl) 107 95-109 [place] 076080-10-14 09:45:00 Test Item Value Reference Range Interpretation Comments CO2 (test code = CO2) 24 24-32 [place] 076080-10-14 09:45:00 Test Item Value Reference Range Interpretation Comments Calcium Lvl (test code = Calcium Lvl) 9.1 8.5-10.5 [place] 076080-10-14 09:45:00 Test Item Value Reference Range Interpretation Comments AGAP (test code = AGAP) 12.6 10.0-20.0 [place] 076080-10-14 09:45:00 Test Item Value Reference Range Interpretation Comments eGFR (test code = eGFR) 7 [id number] 09:45:00 Test Item Value Reference Range Interpretation Comments S Preg (test code = S Negative *NA*(04/06/20 Preg) 4:45 AM) [place] 790790-10-14 09:45:00 Test Item Value Reference Range Interpretation Comments WBC (test code = WBC) 4.5 3.7-10.4 [place] 790790-10-14 09:45:00 Test Item Value Reference Range Interpretation Comments RBC (test code = RBC) 3.73 4.20-5.40 [place] 790790-10-14 09:45:00 Test Item Value Reference Range Interpretation Comments Hgb (test code = Hgb) 10.7 12.0-16.0 [place] 790790-10-14 09:45:00 Test Item Value Reference Range Interpretation Comments Hct (test code = Hct) 33.6 36.0-48.0 [place] [address]-10-14 09:45:00 Test Item Value Reference Range Interpretation Comments MCV (test code = MCV) 90.1 80.0-98.0 [place] [address]-10-14 09:45:00 Test Item Value Reference Range Interpretation Comments MCH (test code = MCH) 28.6 pg 27.0-31.0 [place] [address]-10-14 09:45:00 Test Item Value Reference Range Interpretation Comments MCHC (test code = MCHC) 31.8 32.0-36.0 [place] 790790-10-14 09:45:00 Test Item Value Reference Range Interpretation Comments RDW (test code = RDW) 15.5 11.5-14.5 [place] [address]-10-14 09:45:00 Test Item Value Reference Range Interpretation Comments Platelet (test code = Platelet) 134 133-450 [place] 790790-10-14 09:45:00 Test Item Value Reference Range Interpretation Comments MPV (test code = MPV) 9.9 7.4-10.4 [place] [address]-10-14 09:45:00 Test Item Value Reference Range Interpretation Comments Segs (test code = Segs) 62.8 45.0-75.0 [place] [address]-10-14 09:45:00 Test Item Value Reference Range Interpretation Comments Lymphocytes (test code = Lymphocytes) 17.1 20.0-40.0 [place] [address]-10-14 09:45:00 Test Item Value Reference Range Interpretation Comments Monocytes (test code = Monocytes) 15.2 2.0-12.0 [place] [address]-10-14 09:45:00 Test Item Value Reference Range Interpretation Comments Eosinophils (test code = 4.1 See_Comment [A utomated message] The Eosinophils) system which ge nerated this result tra nsmitted reference range : <=4.0. The reference r eileen was not used to int erpret this result as normal/abnormal . [place] [address]-10-14 09:45:00 Test Item Value Reference Range Interpretation Comments Basophils (test code = 0.8 See_Comment [Aut omated message] The Basophils) system which ge nerated this result tra nsmitted reference range : <=1.0. The reference r eileen was not used to int erpret this result as normal/abnormal . [place] [address]-10-14 09:45:00 Test Item Value Reference Range Interpretation Comments Neutrophils # (test code = Neutrophils 2.9 1.5-8.1 #) [place] [address]-10-14 09:45:00 Test Item Value Reference Range Interpretation Comments Lymphocytes # (test code = Lymphocytes 0.8 1.0-5.5 #) [place] [address]-10-14 09:45:00 Test Item Value Reference Range Interpretation Comments Monocytes # (test code 0.7 See_Comment [Aut omated message] The = Monocytes #) system which generated this result tra nsmitted reference range : <=0.8. The reference r eileen was not used to int erpret this result as normal/abnormal . [place] [address]-10-14 09:45:00 Test Item Value Reference Range Interpretation Comments Eosinophils # (test code 0.2 See_Comment [A utomated message] The = Eosinophils #) system whic h generated this result tra nsmitted reference range : <=0.5. The reference r eileen was not used to int erpret this result as normal/abnormal . [place] 076080-10-14 09:45:00 Test Item Value Reference Range Interpretation Comments Glucose Lvl (test code = Glucose Lvl) 83 70-99 [place] [address]-10-14 09:45:00 Test Item Value Reference Range Interpretation Comments BUN (test code = BUN) 36 7-22 [place] [address]-10-14 09:45:00 Test Item Value Reference Range Interpretation Comments Creatinine Lvl (test code = Creatinine 6.40 0.50-1.40 Lvl) [place] [address]-10-14 09:45:00 Test Item Value Reference Range Interpretation Comments Sodium Lvl (test code = Sodium Lvl) 140 135-145 [place] [address]-10-14 09:45:00 Test Item Value Reference Range Interpretation Comments Potassium Lvl (test code = Potassium 3.6 3.5-5.1 Lvl) [place] [address]-10-14 09:45:00 Test Item Value Reference Range Interpretation Comments Chloride Lvl (test code = Chloride Lvl) 107 95-109 [place] 076080-10-14 09:45:00 Test Item Value Reference Range Interpretation Comments CO2 (test code = CO2) 24 24-32 [place] 076080-10-14 09:45:00 Test Item Value Reference Range Interpretation Comments Calcium Lvl (test code = Calcium Lvl) 9.1 8.5-10.5 [place] 076080-10-14 09:45:00 Test Item Value Reference Range Interpretation Comments AGAP (test code = AGAP) 12.6 10.0-20.0 [place] 076080-10-14 09:45:00 Test Item Value Reference Range Interpretation Comments eGFR (test code = eGFR) 7 [facility]XLQTJM0917-23-74 09:45:00 Test Item Value Reference Range Interpretation Comments S Preg (test code = S Negative *NA*(04/06/20 Preg) 4:45 AM) [place] [address]-10-14 09:45:00 Test Item Value Reference Range Interpretation Comments WBC (test code = WBC) 4.5 3.7-10.4 [place] [address]-10-14 09:45:00 Test Item Value Reference Range Interpretation Comments RBC (test code = RBC) 3.73 4.20-5.40 [facility] 09:45:00 Test Item Value Reference Range Interpretation Comments Hgb (test code = Hgb) 10.7 12.0-16.0 [facility] HospitalWbubyjrMLKOXCJEIT3001-27-96 09:45:00 Test Item Value Reference Range Interpretation Comments Hct (test code = Hct) 33.6 36.0-48.0 [place] [address]-10-14 09:45:00 Test Item Value Reference Range Interpretation Comments MCV (test code = MCV) 90.1 80.0-98.0 [place] [address]-10-14 09:45:00 Test Item Value Reference Range Interpretation Comments MCH (test code = MCH) 28.6 pg 27.0-31.0 [place] 790790-10-14 09:45:00 Test Item Value Reference Range Interpretation Comments MCHC (test code = MCHC) 31.8 32.0-36.0 [place] 790790-10-14 09:45:00 Test Item Value Reference Range Interpretation Comments RDW (test code = RDW) 15.5 11.5-14.5 [facility] HospitalSfzwmgsPUUPVJOYYJ8571-98-21 09:45:00 Test Item Value Reference Range Interpretation Comments Platelet (test code = Platelet) 134 133-450 [place] 790790-10-14 09:45:00 Test Item Value Reference Range Interpretation Comments MPV (test code = MPV) 9.9 7.4-10.4 [place] 790790-10-14 09:45:00 Test Item Value Reference Range Interpretation Comments Segs (test code = Segs) 62.8 45.0-75.0 [place] [address]-10-14 09:45:00 Test Item Value Reference Range Interpretation Comments Lymphocytes (test code = Lymphocytes) 17.1 20.0-40.0 [place] [address]-10-14 09:45:00 Test Item Value Reference Range Interpretation Comments Monocytes (test code = Monocytes) 15.2 2.0-12.0 [facility] HospitalIslwinhWEQDHQKVBM4246-11-40 09:45:00 Test Item Value Reference Range Interpretation Comments Eosinophils (test code = 4.1 See_Comment [A utomated message] The Eosinophils) system which ge nerated this result tra nsmitted reference range : <=4.0. The reference r eileen was not used to int erpret this result as normal/abnormal . [facility] HospitalZxefnmeDYJSIEGGKI6593-97-35 09:45:00 Test Item Value Reference Range Interpretation Comments Basophils (test code = 0.8 See_Comment [Aut omated message] The Basophils) system which ge nerated this result tra nsmitted reference range : <=1.0. The reference r eileen was not used to int erpret this result as normal/abnormal . [facility] HospitalIkdbppoARAEXVGHXE7547-88-25 09:45:00 Test Item Value Reference Range Interpretation Comments Neutrophils # (test code = Neutrophils 2.9 1.5-8.1 #) [facility] HospitalOuzomuyWEIWBELVUD0023-04-20 09:45:00 Test Item Value Reference Range Interpretation Comments Lymphocytes # (test code = Lymphocytes 0.8 1.0-5.5 #) [place] 790790-10-14 09:45:00 Test Item Value Reference Range Interpretation Comments Monocytes # (test code 0.7 See_Comment [Aut omated message] The = Monocytes #) system which generated this result tra nsmitted reference range : <=0.8. The reference r eileen was not used to int erpret this result as normal/abnormal . [facility] HospitalSwndqtvIKPCBVHJYZ0974-58-23 09:45:00 Test Item Value Reference Range Interpretation Comments Eosinophils # (test code 0.2 See_Comment [A utomated message] The = Eosinophils #) system whic h generated this result tra nsmitted reference range : <=0.5. The reference r eileen was not used to int erpret this result as normal/abnormal . [facility] [id number] 09:45:00 Test Item Value Reference Range Interpretation Comments Glucose Lvl (test code = Glucose Lvl) 83 70-99 [facility] [id number] 09:45:00 Test Item Value Reference Range Interpretation Comments BUN (test code = BUN) 36 7-22 [facility] [id number] 09:45:00 Test Item Value Reference Range Interpretation Comments Creatinine Lvl (test code = Creatinine 6.40 0.50-1.40 Lvl) [facility] [id number] 09:45:00 Test Item Value Reference Range Interpretation Comments Sodium Lvl (test code = Sodium Lvl) 140 135-145 [facility] [id number] 09:45:00 Test Item Value Reference Range Interpretation Comments Potassium Lvl (test code = Potassium 3.6 3.5-5.1 Lvl) [facility] [id number] 09:45:00 Test Item Value Reference Range Interpretation Comments Chloride Lvl (test code = Chloride Lvl) 107 95-109 [facility] [id number] 09:45:00 Test Item Value Reference Range Interpretation Comments CO2 (test code = CO2) 24 24-32 [facility] [id number] 09:45:00 Test Item Value Reference Range Interpretation Comments Calcium Lvl (test code = Calcium Lvl) 9.1 8.5-10.5 [facility] [id number] 09:45:00 Test Item Value Reference Range Interpretation Comments AGAP (test code = AGAP) 12.6 10.0-20.0 [facility] [id number] 09:45:00 Test Item Value Reference Range Interpretation Comments eGFR (test code = eGFR) 7 [facility] HospitalYjlaheyFCQUTMJRKKGGF7319-77-31 09:45:00 Test Item Value Reference Range Interpretation Comments S Preg (test code = S Negative *NA*(04/06/20 Preg) 4:45 AM) [facility]QbfozdxROXAQPJNPO4322-53-10 09:45:00 Test Item Value Reference Range Interpretation Comments WBC (test code = WBC) 4.5 3.7-10.4 [facility] HospitalGcmuztgKIAKXLWRDN8126-24-40 09:45:00 Test Item Value Reference Range Interpretation Comments RBC (test code = RBC) 3.73 4.20-5.40 [facility] HospitalCniktozXJVOPRMZKH7155-49-75 09:45:00 Test Item Value Reference Range Interpretation Comments Hgb (test code = Hgb) 10.7 12.0-16.0 [facility] HospitalJrsqivcHQYKFFRUKD3176-81-17 09:45:00 Test Item Value Reference Range Interpretation Comments Hct (test code = Hct) 33.6 36.0-48.0 [facility] HospitalOxbdqlxXZWCBZUGPI4513-31-44 09:45:00 Test Item Value Reference Range Interpretation Comments MCV (test code = MCV) 90.1 80.0-98.0 [facility] HospitalHlevpkgQJMXHZHEOM2565-87-47 09:45:00 Test Item Value Reference Range Interpretation Comments MCH (test code = MCH) 28.6 pg 27.0-31.0 [facility] HospitalKwtnpqhUDKJUAGZXT2963-31-83 09:45:00 Test Item Value Reference Range Interpretation Comments MCHC (test code = MCHC) 31.8 32.0-36.0 [facility] HospitalNmdexacPLRMMFUVKG3543-11-74 09:45:00 Test Item Value Reference Range Interpretation Comments RDW (test code = RDW) 15.5 11.5-14.5 [facility] HospitalUlefsicRMJQGNOHXH9920-43-65 09:45:00 Test Item Value Reference Range Interpretation Comments Platelet (test code = Platelet) 134 133-450 [facility] HospitalSolymjaCPYVTUSOHA3601-67-72 09:45:00 Test Item Value Reference Range Interpretation Comments MPV (test code = MPV) 9.9 7.4-10.4 [facility] HospitalZloczokITKYWPEDFV2470-04-36 09:45:00 Test Item Value Reference Range Interpretation Comments Segs (test code = Segs) 62.8 45.0-75.0 [place] 790790-10-14 09:45:00 Test Item Value Reference Range Interpretation Comments Lymphocytes (test code = Lymphocytes) 17.1 20.0-40.0 [place] [address]-10-14 09:45:00 Test Item Value Reference Range Interpretation Comments Monocytes (test code = Monocytes) 15.2 2.0-12.0 [place] [address]-10-14 09:45:00 Test Item Value Reference Range Interpretation Comments Eosinophils (test code = 4.1 See_Comment [A utomated message] The Eosinophils) system which ge nerated this result tra nsmitted reference range : <=4.0. The reference r eileen was not used to int erpret this result as normal/abnormal . [place] [address]-10-14 09:45:00 Test Item Value Reference Range Interpretation Comments Basophils (test code = 0.8 See_Comment [Aut omated message] The Basophils) system which ge nerated this result tra nsmitted reference range : <=1.0. The reference r eileen was not used to int erpret this result as normal/abnormal . [facility] HospitalJwpfzhwPLVNKBBLVF6634-61-30 09:45:00 Test Item Value Reference Range Interpretation Comments Neutrophils # (test code = Neutrophils 2.9 1.5-8.1 #) [place] [address]-10-14 09:45:00 Test Item Value Reference Range Interpretation Comments Lymphocytes # (test code = Lymphocytes 0.8 1.0-5.5 #) [place] [address]-10-14 09:45:00 Test Item Value Reference Range Interpretation Comments Monocytes # (test code 0.7 See_Comment [Aut omated message] The = Monocytes #) system which generated this result tra nsmitted reference range : <=0.8. The reference r eileen was not used to int erpret this result as normal/abnormal . [place] [address]-10-14 09:45:00 Test Item Value Reference Range Interpretation [...] (test code = Glucose Lvl) 83 70-99 [place] 076080-10-14 09:45:00 Test Item Value Reference Range Interpretation Comments BUN (test code = BUN) 36 7-22 [place] 076080-10-14 09:45:00 Test Item Value Reference Range Interpretation Comments Creatinine Lvl (test code = Creatinine 6.40 0.50-1.40 Lvl) [facility]2020-10-14 09:45:00 Test Item Value Reference Range Interpretation Comments Sodium Lvl (test code = Sodium Lvl) 140 135-145 [facility]2020-10-14 09:45:00 Test Item Value Reference Range Interpretation Comments Potassium Lvl (test code = Potassium 3.6 3.5-5.1 Lvl) [facility]2020-10-14 09:45:00 Test Item Value Reference Range Interpretation Comments Chloride Lvl (test code = Chloride Lvl) 107 95-109 [facility]2020-10-14 09:45:00 Test Item Value Reference Range Interpretation Comments CO2 (test code = CO2) 24 24-32 [facility]2020-10-14 09:45:00 Test Item Value Reference Range Interpretation Comments Calcium Lvl (test code = Calcium Lvl) 9.1 8.5-10.5 [facility]2020-10-14 09:45:00 Test Item Value Reference Range Interpretation Comments AGAP (test code = AGAP) 12.6 10.0-20.0 [place] 076080-10-14 09:45:00 Test Item Value Reference Range Interpretation Comments eGFR (test code = eGFR) 7 [facility] HospitalQvomxskHDZDDFUMAKVEH3423-92-98 09:45:00 Test Item Value Reference Range Interpretation Comments S Preg (test code = S Negative *NA*(04/06/20 Preg) 4:45 AM) [facility] HospitalVtlvzfmORJJRPDTBX8866-42-26 09:45:00 Test Item Value Reference Range Interpretation Comments WBC (test code = WBC) 4.5 3.7-10.4 [place] 790790-10-14 09:45:00 Test Item Value Reference Range Interpretation Comments RBC (test code = RBC) 3.73 4.20-5.40 [place] 790790-10-14 09:45:00 Test Item Value Reference Range Interpretation Comments Hgb (test code = Hgb) 10.7 12.0-16.0 [place] [address]-10-14 09:45:00 Test Item Value Reference Range Interpretation Comments Hct (test code = Hct) 33.6 36.0-48.0 [facility] HospitalEbivjadCQVHYUMHPT8273-69-64 09:45:00 Test Item Value Reference Range Interpretation Comments MCV (test code = MCV) 90.1 80.0-98.0 [facility] HospitalIzvkwsaXCMUUGUFZK0465-84-20 09:45:00 Test Item Value Reference Range Interpretation Comments MCH (test code = MCH) 28.6 pg 27.0-31.0 [facility] HospitalHyzdtedZCPCSAZRWK7665-67-76 09:45:00 Test Item Value Reference Range Interpretation Comments MCHC (test code = MCHC) 31.8 32.0-36.0 [place] 790790-10-14 09:45:00 Test Item Value Reference Range Interpretation Comments RDW (test code = RDW) 15.5 11.5-14.5 [facility] HospitalZuxcmcfGALODMDNNU0769-21-69 09:45:00 Test Item Value Reference Range Interpretation Comments Platelet (test code = Platelet) 134 133-450 [facility] HospitalJlazqxnJVPQMWTDCO1113-16-37 09:45:00 Test Item Value Reference Range Interpretation Comments MPV (test code = MPV) 9.9 7.4-10.4 [place] 790790-10-14 09:45:00 Test Item Value Reference Range Interpretation Comments Segs (test code = Segs) 62.8 45.0-75.0 [place] [address]-10-14 09:45:00 Test Item Value Reference Range Interpretation Comments Lymphocytes (test code = Lymphocytes) 17.1 20.0-40.0 [place] [address]-10-14 09:45:00 Test Item Value Reference Range Interpretation Comments Monocytes (test code = Monocytes) 15.2 2.0-12.0 [place] [address]-10-14 09:45:00 Test Item Value Reference Range Interpretation Comments Eosinophils (test code = 4.1 See_Comment [A utomated message] The Eosinophils) system which ge nerated this result tra nsmitted reference range : <=4.0. The reference r eileen was not used to int erpret this result as normal/abnormal . [place] 790790-10-14 09:45:00 Test Item Value Reference Range Interpretation Comments Basophils (test code = 0.8 See_Comment [Aut omated message] The Basophils) system which ge nerated this result tra nsmitted reference range : <=1.0. The reference r eileen was not used to int erpret this result as normal/abnormal . [place] 790790-10-14 09:45:00 Test Item Value Reference Range Interpretation Comments Neutrophils # (test code = Neutrophils 2.9 1.5-8.1 #) [place] [address]-10-14 09:45:00 Test Item Value Reference Range Interpretation Comments Lymphocytes # (test code = Lymphocytes 0.8 1.0-5.5 #) [place] 790790-10-14 09:45:00 Test Item Value Reference Range Interpretation Comments Monocytes # (test code 0.7 See_Comment [Aut omated message] The = Monocytes #) system which generated this result tra nsmitted reference range : <=0.8. The reference r eileen was not used to int erpret this result as normal/abnormal . [place] 790790-10-14 09:45:00 Test Item Value Reference Range Interpretation Comments Eosinophils # (test code 0.2 See_Comment [A utomated message] The = Eosinophils #) system whic h generated this result tra nsmitted reference range : <=0.5. The reference r eileen was not used to int erpret this result as normal/abnormal . [facility] [id number] 09:45:00 Test Item Value Reference Range Interpretation Comments Glucose Lvl (test code = Glucose Lvl) 83 70-99 [facility] [id number] 09:45:00 Test Item Value Reference Range Interpretation Comments BUN (test code = BUN) 36 7-22 [facility] [id number] 09:45:00 Test Item Value Reference Range Interpretation Comments Creatinine Lvl (test code = Creatinine 6.40 0.50-1.40 Lvl) [place] 076080-10-14 09:45:00 Test Item Value Reference Range Interpretation Comments Sodium Lvl (test code = Sodium Lvl) 140 135-145 [place] 076080-10-14 09:45:00 Test Item Value Reference Range Interpretation Comments Potassium Lvl (test code = Potassium 3.6 3.5-5.1 Lvl) [place] 076080-10-14 09:45:00 Test Item Value Reference Range Interpretation Comments Chloride Lvl (test code = Chloride Lvl) 107 95-109 [place] [address]-10-14 09:45:00 Test Item Value Reference Range Interpretation Comments CO2 (test code = CO2) 24 24-32 [place] [address]-10-14 09:45:00 Test Item Value Reference Range Interpretation Comments Calcium Lvl (test code = Calcium Lvl) 9.1 8.5-10.5 [place] 076080-10-14 09:45:00 Test Item Value Reference Range Interpretation Comments AGAP (test code = AGAP) 12.6 10.0-20.0 [place] [address]-10-14 09:45:00 Test Item Value Reference Range Interpretation Comments eGFR (test code = eGFR) 7 [facility]wocqecFONPLNTNPKVHU7194-84-00 09:45:00 Test Item Value Reference Range Interpretation Comments S Preg (test code = S Negative *NA*(04/06/20 Preg) 4:45 AM) [place] [address]-10-14 09:45:00 Test Item Value Reference Range Interpretation Comments WBC (test code = WBC) 4.5 3.7-10.4 [place] 790790-10-14 09:45:00 Test Item Value Reference Range Interpretation Comments RBC (test code = RBC) 3.73 4.20-5.40 [place] [address]-10-14 09:45:00 Test Item Value Reference Range Interpretation Comments Hgb (test code = Hgb) 10.7 12.0-16.0 [place] [address]-10-14 09:45:00 Test Item Value Reference Range Interpretation Comments Hct (test code = Hct) 33.6 36.0-48.0 [place] 790790-10-14 09:45:00 Test Item Value Reference Range Interpretation Comments MCV (test code = MCV) 90.1 80.0-98.0 [facility]ubsQGHMBHCIAD4309-68-57 09:45:00 Test Item Value Reference Range Interpretation Comments MCH (test code = MCH) 28.6 pg 27.0-31.0 [facility]KpoilhjIJUEDLMYQW0038-98-47 09:45:00 Test Item Value Reference Range Interpretation Comments MCHC (test code = MCHC) 31.8 32.0-36.0 [facility] HospitalXarzeohAFBVIMCTHM1015-13-12 09:45:00 Test Item Value Reference Range Interpretation Comments RDW (test code = RDW) 15.5 11.5-14.5 [facility] HospitalWbhnnfbZDMDFHISQM7577-92-32 09:45:00 Test Item Value Reference Range Interpretation Comments Platelet (test code = Platelet) 134 133-450 [facility] HospitalXuvbgseORMHTCUOCJ3652-53-33 09:45:00 Test Item Value Reference Range Interpretation Comments MPV (test code = MPV) 9.9 7.4-10.4 [facility] HospitalHjackpdWZIZVVOOEG0612-50-92 09:45:00 Test Item Value Reference Range Interpretation Comments Segs (test code = Segs) 62.8 45.0-75.0 [facility] HospitalJxabojwEDCQBFHMMV3917-54-27 09:45:00 Test Item Value Reference Range Interpretation Comments Lymphocytes (test code = Lymphocytes) 17.1 20.0-40.0 [facility] HospitalUukzotfLDZZHNEVZN9978-68-13 09:45:00 Test Item Value Reference Range Interpretation Comments Monocytes (test code = Monocytes) 15.2 2.0-12.0 [place] [address]-10-14 09:45:00 Test Item Value Reference Range Interpretation Comments Eosinophils (test code = 4.1 See_Comment [A utomated message] The Eosinophils) system which ge nerated this result tra nsmitted reference range : <=4.0. The reference r eileen was not used to int erpret this result as normal/abnormal . [facility] HospitalJzcirvtQFIGMAQIYD8296-77-57 09:45:00 Test Item Value Reference Range Interpretation Comments Basophils (test code = 0.8 See_Comment [Aut omated message] The Basophils) system which ge nerated this result tra nsmitted reference range : <=1.0. The reference r eileen was not used to int erpret this result as normal/abnormal . [place] [address]-10-14 09:45:00 Test Item Value Reference Range Interpretation Comments Neutrophils # (test code = Neutrophils 2.9 1.5-8.1 #) [place] [address]-10-14 09:45:00 Test Item Value Reference Range Interpretation Comments Lymphocytes # (test code = Lymphocytes 0.8 1.0-5.5 #) [place] [address]-10-14 09:45:00 Test Item Value Reference Range Interpretation Comments Monocytes # (test code 0.7 See_Comment [Aut omated message] The = Monocytes #) system which generated this result tra nsmitted reference range : <=0.8. The reference r eileen was not used to int erpret this result as normal/abnormal . [place] [address]-10-14 09:45:00 Test Item Value Reference Range Interpretation Comments Eosinophils # (test code 0.2 See_Comment [A utomated message] The = Eosinophils #) system whic h generated this result tra nsmitted reference range : <=0.5. The reference r eileen was not used to int erpret this result as normal/abnormal . [place] [address]-10-14 09:45:00 Test Item Value Reference Range Interpretation Comments Glucose Lvl (test code = Glucose Lvl) 83 70-99 [place] [address]-10-14 09:45:00 Test Item Value Reference Range Interpretation Comments BUN (test code = BUN) 36 7-22 [place] [address]-10-14 09:45:00 Test Item Value Reference Range Interpretation Comments Creatinine Lvl (test code = Creatinine 6.40 0.50-1.40 Lvl) [place] [address]-10-14 09:45:00 Test Item Value Reference Range Interpretation Comments Sodium Lvl (test code = Sodium Lvl) 140 135-145 [place] [address]-10-14 09:45:00 Test Item Value Reference Range Interpretation Comments Potassium Lvl (test code = Potassium 3.6 3.5-5.1 Lvl) [place] [address]-10-14 09:45:00 Test Item Value Reference Range Interpretation Comments Chloride Lvl (test code = Chloride Lvl) 107 95-109 [place] 076080-10-14 09:45:00 Test Item Value Reference Range Interpretation Comments CO2 (test code = CO2) 24 24-32 [place] [address]-10-14 09:45:00 Test Item Value Reference Range Interpretation Comments Calcium Lvl (test code = Calcium Lvl) 9.1 8.5-10.5 [place] 076080-10-14 09:45:00 Test Item Value Reference Range Interpretation Comments AGAP (test code = AGAP) 12.6 10.0-20.0 [place] [address]-10-14 09:45:00 Test Item Value Reference Range Interpretation Comments eGFR (test code = eGFR) 7 [place] 93496020-10-14 09:45:00 Test Item Value Reference Range Interpretation Comments S Preg (test code = S Negative *NA*(04/06/20 Preg) 4:45 AM) [place] [address]-10-14 09:45:00 Test Item Value Reference Range Interpretation Comments WBC (test code = WBC) 4.5 3.7-10.4 [place] [address]-10-14 09:45:00 Test Item Value Reference Range Interpretation Comments RBC (test code = RBC) 3.73 4.20-5.40 [place] [address]-10-14 09:45:00 Test Item Value Reference Range Interpretation Comments Hgb (test code = Hgb) 10.7 12.0-16.0 [place] [address]-10-14 09:45:00 Test Item Value Reference Range Interpretation Comments Hct (test code = Hct) 33.6 36.0-48.0 [place] [address]-10-14 09:45:00 Test Item Value Reference Range Interpretation Comments MCV (test code = MCV) 90.1 80.0-98.0 [place] [address]-10-14 09:45:00 Test Item Value Reference Range Interpretation Comments MCH (test code = MCH) 28.6 pg 27.0-31.0 [place] [address]-10-14 09:45:00 Test Item Value Reference Range Interpretation Comments MCHC (test code = MCHC) 31.8 32.0-36.0 [place] [address]-10-14 09:45:00 Test Item Value Reference Range Interpretation Comments RDW (test code = RDW) 15.5 11.5-14.5 [place] 790790-10-14 09:45:00 Test Item Value Reference Range Interpretation Comments Platelet (test code = Platelet) 134 133-450 [facility] HospitalCjbttheWMTDHQEBRT5268-86-77 09:45:00 Test Item Value Reference Range Interpretation Comments MPV (test code = MPV) 9.9 7.4-10.4 [facility] HospitalWdiedpqYKMGIWWSLQ1493-08-27 09:45:00 Test Item Value Reference Range Interpretation Comments Segs (test code = Segs) 62.8 45.0-75.0 [place] 790790-10-14 09:45:00 Test Item Value Reference Range Interpretation Comments Lymphocytes (test code = Lymphocytes) 17.1 20.0-40.0 [facility] HospitalGqrgjrgIKWQIUHNVL2211-08-97 09:45:00 Test Item Value Reference Range Interpretation Comments Monocytes (test code = Monocytes) 15.2 2.0-12.0 [facility] HospitalJjfketmTILOCYMMFW9795-63-77 09:45:00 Test Item Value Reference Range Interpretation Comments Eosinophils (test code = Eosinophils) 4.1 <=4.0 [facility] HospitalMrogfhqMKVRJETYEH9647-41-52 09:45:00 Test Item Value Reference Range Interpretation Comments Basophils (test code = Basophils) 0.8 <=1.0 [facility] HospitalMjkqpxvDSYZGMURKZ3171-90-70 09:45:00 Test Item Value Reference Range Interpretation Comments Neutrophils # (test code = Neutrophils 2.9 1.5-8.1 #) [facility] HospitalHiowdrkSEPZOBPCYQ1217-58-23 09:45:00 Test Item Value Reference Range Interpretation Comments Lymphocytes # (test code = Lymphocytes 0.8 1.0-5.5 #) [facility] HospitalBilinkiTEZNEGDSOF1090-24-76 09:45:00 Test Item Value Reference Range Interpretation Comments Monocytes # (test code = Monocytes #) 0.7 <=0.8 [place] 790790-10-14 09:45:00 Test Item Value Reference Range Interpretation Comments Eosinophils # (test code = Eosinophils 0.2 <=0.5 #) [facility]2020-10-14 09:45:00 Test Item Value Reference Range Interpretation Comments Glucose Lvl (test code = Glucose Lvl) 83 70-99 [place] 076080-10-14 09:45:00 Test Item Value Reference Range Interpretation Comments BUN (test code = BUN) 36 7-22 [place] 076080-10-14 09:45:00 Test Item Value Reference Range Interpretation Comments Creatinine Lvl (test code = Creatinine 6.40 0.50-1.40 Lvl) [place] 076080-10-14 09:45:00 Test Item Value Reference Range Interpretation Comments Sodium Lvl (test code = Sodium Lvl) 140 135-145 [place] [address]-10-14 09:45:00 Test Item Value Reference Range Interpretation Comments Potassium Lvl (test code = Potassium 3.6 3.5-5.1 Lvl) [place] 076080-10-14 09:45:00 Test Item Value Reference Range Interpretation Comments Chloride Lvl (test code = Chloride Lvl) 107 95-109 [place] 076080-10-14 09:45:00 Test Item Value Reference Range Interpretation Comments CO2 (test code = CO2) 24 24-32 [place] [address]-10-14 09:45:00 Test Item Value Reference Range Interpretation Comments Calcium Lvl (test code = Calcium Lvl) 9.1 8.5-10.5 [place] 076080-10-14 09:45:00 Test Item Value Reference Range Interpretation Comments AGAP (test code = AGAP) 12.6 10.0-20.0 [place] 076080-10-14 09:45:00 Test Item Value Reference Range Interpretation Comments eGFR (test code = eGFR) 7 [facility]IMPH[facility]FPLRE1217[facility]53-53 09:45:00 Test Item Value Reference Range Interpretation Comments S Preg (test code = S Negative *NA*(04/06/20 Preg) 4:45 AM) [place] [address]-10-14 09:45:00 Test Item Value Reference Range Interpretation Comments WBC (test code = WBC) 4.5 3.7-10.4 [place] 790790-10-14 09:45:00 Test Item Value Reference Range Interpretation Comments RBC (test code = RBC) 3.73 4.20-5.40 [place] 790790-10-14 09:45:00 Test Item Value Reference Range Interpretation Comments Hgb (test code = Hgb) 10.7 12.0-16.0 [facility] HospitalCfjwhhcFORCEECDUW7313-79-54 09:45:00 Test Item Value Reference Range Interpretation Comments Hct (test code = Hct) 33.6 36.0-48.0 [facility] HospitalTqmutfcYFTUDAKHFF1954 09:45:00 Test Item Value Reference Range Interpretation Comments MCV (test code = MCV) 90.1 80.0-98.0 [facility] HospitalGcwjfquALHFTAYFUC7167-03-66 09:45:00 Test Item Value Reference Range Interpretation Comments MCH (test code = MCH) 28.6 pg 27.0-31.0 [facility] HospitalJbkwipbAFDLWYDTTS9261-32-44 09:45:00 Test Item Value Reference Range Interpretation Comments MCHC (test code = MCHC) 31.8 32.0-36.0 [facility] HospitalPqbzcaqPLDABFHQMU0643-86-39 09:45:00 Test Item Value Reference Range Interpretation Comments RDW (test code = RDW) 15.5 11.5-14.5 [facility] HospitalUahqnrdRSBXVINRAV0784-39-83 09:45:00 Test Item Value Reference Range Interpretation Comments Platelet (test code = Platelet) 134 133-450 [facility] HospitalRlfoookIZREXJDCUQ1340-88-89 09:45:00 Test Item Value Reference Range Interpretation Comments MPV (test code = MPV) 9.9 7.4-10.4 [facility] HospitalFenrqsuHIPOFFLNSG0322-25-84 09:45:00 Test Item Value Reference Range Interpretation Comments Segs (test code = Segs) 62.8 45.0-75.0 [facility] HospitalFybxfiqLWUGDNKZYE5802-66-40 09:45:00 Test Item Value Reference Range Interpretation Comments Lymphocytes (test code = Lymphocytes) 17.1 20.0-40.0 [facility] HospitalXychwjnTVIZLOEICT1781-86-90 09:45:00 Test Item Value Reference Range Interpretation Comments Monocytes (test code = Monocytes) 15.2 2.0-12.0 [facility] HospitalWkwaefxTBPYZLJIQD6310-09-17 09:45:00 Test Item Value Reference Range Interpretation Comments Eosinophils (test code = Eosinophils) 4.1 <=4.0 [facility] HospitalLzaupkpXYCIMHSGXG7033-86-82 09:45:00 Test Item Value Reference Range Interpretation Comments Basophils (test code = Basophils) 0.8 <=1.0 [place] [address]-10-14 09:45:00 Test Item Value Reference Range Interpretation Comments Neutrophils # (test code = Neutrophils 2.9 1.5-8.1 #) [place] [address]-10-14 09:45:00 Test Item Value Reference Range Interpretation Comments Lymphocytes # (test code = Lymphocytes 0.8 1.0-5.5 #) [place] [address]-10-14 09:45:00 Test Item Value Reference Range Interpretation Comments Monocytes # (test code = Monocytes #) 0.7 <=0.8 [place] [address]-10-14 09:45:00 Test Item Value Reference Range Interpretation Comments Eosinophils # (test code = Eosinophils 0.2 <=0.5 #) [place] [address]-10-14 02:13:00 Test Item Value Reference Range Interpretation Comments Coronavirus (COVID-19) Not Detected KAYLEE (test code = (04/05/20 9:13 PM) Coronavirus (COVID-19) KAYLEE) [place] [address]-10-14 02:13:00 Test Item Value Reference Range Interpretation Comments Coronavirus (COVID-19) Not Detected KAYLEE (test code = (04/05/20 9:13 PM) Coronavirus (COVID-19) KAYLEE) [place] [address]-10-14 02:13:00 Test Item Value Reference Range Interpretation Comments Coronavirus (COVID-19) Not Detected KAYLEE (test code = (04/05/20 9:13 PM) Coronavirus (COVID-19) KAYLEE) [place] [address]-10-14 02:13:00 Test Item Value Reference Range Interpretation Comments Coronavirus (COVID-19) Not Detected KAYLEE (test code = (04/05/20 9:13 PM) Coronavirus (COVID-19) KAYLEE) [place] [address]-10-14 02:13:00 Test Item Value Reference Range Interpretation Comments Coronavirus (COVID-19) Not Detected KAYLEE (test code = (04/05/20 9:13 PM) Coronavirus (COVID-19) KAYLEE) [place] [address]-10-14 02:13:00 Test Item Value Reference Range Interpretation Comments Coronavirus (COVID-19) Not Detected KAYLEE (test code = (04/05/20 9:13 PM) Coronavirus (COVID-19) KAYLEE) [facility]DfvociiMYWAVARIBC0458-56-62 02:13:00 Test Item Value Reference Range Interpretation Comments Coronavirus (COVID-19) Not Detected KAYLEE (test code = (04/05/20 9:13 PM) Coronavirus (COVID-19) KAYLEE) [facility] [id number] 23:26:00 Test Item Value Reference Range Interpretation Comments Total Protein (test code = Total 7.7 6.4-8.4 Protein) [facility] [id number] 23:26:00 Test Item Value Reference Range Interpretation Comments Albumin Lvl (test code = Albumin Lvl) 3.9 3.5-5.0 [facility] [id number] 23:26:00 Test Item Value Reference Range Interpretation Comments ALT (test code = ALT) 40 See_Comment [Auto mated message] The system which ge nerated this result transmit melquiades reference range : <=65. The reference range was not used to interpr et this result as jon l/abnormal. [facility] [id number] 23:26:00 Test Item Value Reference Range Interpretation Comments AST (test code = AST) 38 See_Comment [Auto mated message] The system which ge nerated this result transmit melquiades reference range : <=37. The reference range was not used to interpr et this result as jon l/abnormal. [facility] [id number] 23:26:00 Test Item Value Reference Range Interpretation Comments Alk Phos (test code = Alk Phos) 92 39-136 [facility] [id number] 23:26:00 Test Item Value Reference Range Interpretation Comments Bili Total (test code = Bili Total) 1.2 0.2-1.3 [facility] [id number] 23:26:00 Test Item Value Reference Range Interpretation Comments B/C Ratio (test code = B/C Ratio) 5 1 6-25 [facility] [id number] 23:26:00 Test Item Value Reference Range Interpretation Comments Globulin (test code = Globulin) 3.8 2.7-4.2 [facility] [id number] 23:26:00 Test Item Value Reference Range Interpretation Comments A/G Ratio (test code = A/G Ratio) 1.0 1 0.7-1.6 [facility] HospitalZijrasdOTMLIDGJDD4445-28-17 23:26:00 Test Item Value Reference Range Interpretation Comments PT (test code = PT) 15.2 s 12.0-14.7 [facility] HospitalFrdmceyMAYBLUDEMC0430-75-14 23:26:00 Test Item Value Reference Range Interpretation Comments INR (test code = INR) 1.19 1 0.85-1.17 [facility] HospitalVmjwklsKDDMXFPWBL3566-44-10 23:26:00 Test Item Value Reference Range Interpretation Comments PTT (test code = PTT) 23.3 s 22.9-35.8 [facility] [employer] [id number] 23:26:00 Test Item Value Reference Range Interpretation Comments Total Protein (test code = Total 7.7 6.4-8.4 Protein) [facility] [id number] 23:26:00 Test Item Value Reference Range Interpretation Comments Albumin Lvl (test code = Albumin Lvl) 3.9 3.5-5.0 [facility] [id number] 23:26:00 Test Item Value Reference Range Interpretation Comments ALT (test code = ALT) 40 See_Comment [Auto mated message] The system which ge nerated this result transmit melquiades reference range : <=65. The reference range was not used to interpr et this result as jon l/abnormal. [facility] [employer] [id number] 23:26:00 Test Item Value Reference Range Interpretation Comments AST (test code = AST) 38 See_Comment [Auto mated message] The system which ge nerated this result transmit melquiades reference range : <=37. The reference range was not used to interpr et this result as jon l/abnormal. [facility] [employer] [id number] 23:26:00 Test Item Value Reference Range Interpretation Comments Alk Phos (test code = Alk Phos) 92 39-136 [facility] [id number] 23:26:00 Test Item Value Reference Range Interpretation Comments Bili Total (test code = Bili Total) 1.2 0.2-1.3 [facility] [id number] 23:26:00 Test Item Value Reference Range Interpretation Comments B/C Ratio (test code = B/C Ratio) 5 1 6-25 [place] [address]-10-13 23:26:00 Test Item Value Reference Range Interpretation Comments Globulin (test code = Globulin) 3.8 2.7-4.2 [place] [address]-10-13 23:26:00 Test Item Value Reference Range Interpretation Comments A/G Ratio (test code = A/G Ratio) 1.0 1 0.7-1.6 [place] [address]-10-13 23:26:00 Test Item Value Reference Range Interpretation Comments PT (test code = PT) 15.2 s 12.0-14.7 [address]10-13 23:26:00 Test Item Value Reference Range Interpretation Comments INR (test code = INR) 1.19 1 0.85-1.[address]10-13 23:26:00 Test Item Value Reference Range Interpretation Comments PTT (test code = PTT) 23.3 s 22.9-35.8 [facility] [id number] 23:26:00 Test Item Value Reference Range Interpretation Comments Total Protein (test code = Total 7.7 6.4-8.4 Protein) [address]10-13 23:26:00 Test Item Value Reference Range Interpretation Comments Albumin Lvl (test code = Albumin Lvl) 3.9 3.5-5.0 [facility] [id number] 23:26:00 Test Item Value Reference Range Interpretation Comments ALT (test code = ALT) 40 See_Comment [Auto mated message] The system which ge nerated this result transmit melquiades reference range : <=65. The reference range was not used to interpr et this result as jon l/abnormal. [facility] [id number] 23:26:00 Test Item Value Reference Range Interpretation Comments AST (test code = AST) 38 See_Comment [Auto mated message] The system which MEEP nerated this result transmit melquiades reference range : <=37. The reference range was not used to interpr et this result as jon l/abnormal. [facility] [id number] 23:26:00 Test Item Value Reference Range Interpretation Comments Alk Phos (test code = Alk Phos) 92 39-136 [facility] [id number] 23:26:00 Test Item Value Reference Range Interpretation Comments Bili Total (test code = Bili Total) 1.2 0.2-1.3 [place] [address]-13 23:26:00 Test Item Value Reference Range Interpretation Comments B/C Ratio (test code = B/C Ratio) 5 1 6-[address]10-13 23:26:00 Test Item Value Reference Range Interpretation Comments Globulin (test code = Globulin) 3.8 2.7-4.[address]10-13 23:26:00 Test Item Value Reference Range Interpretation Comments A/G Ratio (test code = A/G Ratio) 1.0 1 0.7-1.6 [place] [address]-13 23:26:00 Test Item Value Reference Range Interpretation Comments PT (test code = PT) 15.2 s 12.0-14.7 [place] [address]-13 23:26:00 Test Item Value Reference Range Interpretation Comments INR (test code = INR) 1.19 1 0.85-1.[address]10-13 23:26:00 Test Item Value Reference Range Interpretation Comments PTT (test code = PTT) 23.3 s 22.9-35.[address]10-13 23:26:00 Test Item Value Reference Range Interpretation Comments Total Protein (test code = Total 7.7 6.4-8.4 Protein) [place] [address]-13 23:26:00 Test Item Value Reference Range Interpretation Comments Albumin Lvl (test code = Albumin Lvl) 3.9 3.5-5.[address]10-13 23:26:00 Test Item Value Reference Range Interpretation Comments ALT (test code = ALT) 40 See_Comment [Auto mated message] The system which ge nerated this result transmit melquiades reference range : <=65. The reference range was not used to interpr et this result as jon l/abnormal. [facility] [id number] 23:26:00 Test Item Value Reference Range Interpretation Comments AST (test code = AST) 38 See_Comment [Auto mated message] The system which ge nerated this result transmit melquiades reference range : <=37. The reference range was not used to interpr et this result as jon l/abnormal. [facility] [employer] [id number] 23:26:00 Test Item Value Reference Range Interpretation Comments Alk Phos (test code = Alk Phos) 92 39-136 [facility] [id number] 23:26:00 Test Item Value Reference Range Interpretation Comments Bili Total (test code = Bili Total) 1.2 0.2-1.3 [facility] [id number] 23:26:00 Test Item Value Reference Range Interpretation Comments B/C Ratio (test code = B/C Ratio) 5 1 6-25 [facility] [employer] [id number] 23:26:00 Test Item Value Reference Range Interpretation Comments Globulin (test code = Globulin) 3.8 2.7-4.2 [facility] [employer] [id number] 23:26:00 Test Item Value Reference Range Interpretation Comments A/G Ratio (test code = A/G Ratio) 1.0 1 0.7-1.6 [facility] Area[facility]iagywdCPZQXMKOEK2573-32-16 23:26:00 Test Item Value Reference Range Interpretation Comments PT (test code = PT) 15.2 s 12.0-14.7 [facility] AreaFhmawcnXSXJRBUDCC3191-87-85 23:26:00 Test Item Value Reference Range Interpretation Comments INR (test code = INR) 1.19 1 0.85-1.17 [facility] AreaMduxnxlNJTUIHRITT0624-86-86 23:26:00 Test Item Value Reference Range Interpretation Comments PTT (test code = PTT) 23.3 s 22.9-35.8 [facility] [employer] [id number] 23:26:00 Test Item Value Reference Range Interpretation Comments Total Protein (test code = Total 7.7 6.4-8.4 Protein) [facility] [employer] [id number] 23:26:00 Test Item Value Reference Range Interpretation Comments Albumin Lvl (test code = Albumin Lvl) 3.9 3.5-5.0 [facility] [id number] 23:26:00 Test Item Value Reference Range Interpretation Comments ALT (test code = ALT) 40 See_Comment [Auto mated message] The system which ge nerated this result transmit melquiades reference range : <=65. The reference range was not used to interpr et this result as jon l/abnormal. [facility] [id number] 23:26:00 Test Item Value Reference Range Interpretation Comments AST (test code = AST) 38 See_Comment [Auto mated message] The system which ge nerated this result transmit melquiades reference range : <=37. The reference range was not used to interpr et this result as jon l/abnormal. [facility] [id number] 23:26:00 Test Item Value Reference Range Interpretation Comments Alk Phos (test code = Alk Phos) 92 39-136 [facility] [id number] 23:26:00 Test Item Value Reference Range Interpretation Comments Bili Total (test code = Bili Total) 1.2 0.2-1.3 [place] [address]-10-13 23:26:00 Test Item Value Reference Range Interpretation Comments B/C Ratio (test code = B/C Ratio) 5 1 6-25 [facility] [id number] 23:26:00 Test Item Value Reference Range Interpretation Comments Globulin (test code = Globulin) 3.8 2.7-4.2 [facility] [facility] [id number] 23:26:00 Test Item Value Reference Range Interpretation Comments A/G Ratio (test code = A/G Ratio) 1.0 1 0.7-1.6 [facility]EdozrvsIJEWLIWEWB6726-30-73 23:26:00 Test Item Value Reference Range Interpretation Comments PT (test code = PT) 15.2 s 12.0-14.7 [facility] HospitalGyleujdDWGXPIBRQQ7999-78-95 23:26:00 Test Item Value Reference Range Interpretation Comments INR (test code = INR) 1.19 1 0.85-1.17 [facility]crwhnwLZPRLLKISQ8711-38-93 23:26:00 Test Item Value Reference Range Interpretation Comments PTT (test code = PTT) 23.3 s 22.9-35.8 [facility] [id number] 23:26:00 Test Item Value Reference Range Interpretation Comments Total Protein (test code = Total 7.7 6.4-8.4 Protein) [facility] [id number] 23:26:00 Test Item Value Reference Range Interpretation Comments Albumin Lvl (test code = Albumin Lvl) 3.9 3.5-5.0 [facility] [id number] 23:26:00 Test Item Value Reference Range Interpretation Comments ALT (test code = ALT) 40 <=65 [facility] [id number] 23:26:00 Test Item Value Reference Range Interpretation Comments AST (test code = AST) 38 <=37 [facility] [id number] 23:26:00 Test Item Value Reference Range Interpretation Comments Alk Phos (test code = Alk Phos) 92 39-136 [place] [address]-10-13 23:26:00 Test Item Value Reference Range Interpretation Comments Bili Total (test code = Bili Total) 1.2 0.2-1.3 [place] [address]-10-13 23:26:00 Test Item Value Reference Range Interpretation Comments B/C Ratio (test code = B/C Ratio) 5 1 6-25 [place] [address]-10-13 23:26:00 Test Item Value Reference Range Interpretation Comments Globulin (test code = Globulin) 3.8 2.7-4.2 [place] [address]-10-13 23:26:00 Test Item Value Reference Range Interpretation Comments A/G Ratio (test code = A/G Ratio) 1.0 1 0.7-1.6 [place] [address]-10-13 23:26:00 Test Item Value Reference Range Interpretation Comments PT (test code = PT) 15.2 s 12.0-14.7 [place] [address]-10-13 23:26:00 Test Item Value Reference Range Interpretation Comments INR (test code = INR) 1.19 1 0.85-1.17 [place] [address]-10-13 23:26:00 Test Item Value Reference Range Interpretation Comments PTT (test code = PTT) 23.3 s 22.9-35.8 [facility] [id number] 23:26:00 Test Item Value Reference Range Interpretation Comments Total Protein (test code = Total 7.7 6.4-8.4 Protein) [place] [address]-10-13 23:26:00 Test Item Value Reference Range Interpretation Comments Albumin Lvl (test code = Albumin Lvl) 3.9 3.5-5.0 [facility]2020-10-13 23:26:00 Test Item Value Reference Range Interpretation Comments ALT (test code = ALT) 40 <=65 [facility]2020-10-13 23:26:00 Test Item Value Reference Range Interpretation Comments AST (test code = AST) 38 <=37 [place] [id number] 23:26:00 Test Item Value Reference Range Interpretation Comments Alk Phos (test code = Alk Phos) 92 39-136 [facility]2020-10-13 23:26:00 Test Item Value Reference Range Interpretation Comments Bili Total (test code = Bili Total) 1.2 0.2-1.3 [facility]2020-10-13 23:26:00 Test Item Value Reference Range Interpretation Comments B/C Ratio (test code = B/C Ratio) 5 1 6-25 [facility]2020-10-13 23:26:00 Test Item Value Reference Range Interpretation Comments Globulin (test code = Globulin) 3.8 2.7-4.2 [facility]2020-10-13 23:26:00 Test Item Value Reference Range Interpretation Comments A/G Ratio (test code = A/G Ratio) 1.0 1 0.7-1.6 [facility]EkvbmqjYILSAGZFWY8996-22-55 23:26:00 Test Item Value Reference Range Interpretation Comments PT (test code = PT) 15.2 s 12.0-14.7 [facility] HospitalDesyaftQVZMTPWGPY6741-05-66 23:26:00 Test Item Value Reference Range Interpretation Comments INR (test code = INR) 1.19 1 0.85-1.17 [facility] HospitalMtvuigaRXXEUZEPZD9072-17-07 23:26:00 Test Item Value Reference Range Interpretation Comments PTT (test code = PTT) 23.3 s 22.9-35.8 [facility]ITALUFKZM0290-53-89 10:53:00 Test Item Value Reference Range Interpretation [...] AGAP (test code = AGAP) 8.7 10.0-20.0 [facility] HospitalNgihgtwTFXHGNHNYO3539-76-51 10:53:00 Test Item Value Reference Range Interpretation Comments Segs (test code = Segs) 64.4 45.0-75.0 [facility] HospitalOkfiyrfSKCJONWQWA5899-76-33 10:53:00 Test Item Value Reference Range Interpretation Comments Eosinophils (test code = 3.7 See_Comment [A utomated message] The Eosinophils) system which ge nerated this result tra nsmitted reference range : <=4.0. The reference r eileen was not used to int erpret this result as normal/abnormal . [facility] HospitalZaylnvgKCWNROBBXB5672-99-11 10:53:00 Test Item Value Reference Range Interpretation Comments Monocytes (test code = Monocytes) 21.0 2.0-12.0 [facility] HospitalPamopqnJDVLVXUVQJ5739-83-86 10:53:00 Test Item Value Reference Range Interpretation Comments Basophils (test code = 0.7 See_Comment [Aut omated message] The Basophils) system which ge nerated this result tra nsmitted reference range : <=1.0. The reference r eileen was not used to int erpret this result as normal/abnormal . [facility] HospitalPibtlilVWKFNWNVUA8837-27-67 10:53:00 Test Item Value Reference Range Interpretation Comments Lymphocytes (test code = Lymphocytes) 10.2 20.0-40.0 [facility] HospitalXgudjmzZHMHADWDOT3361-87-96 10:53:00 Test Item Value Reference Range Interpretation Comments Neutrophils # (test code = Neutrophils 4.5 1.5-8.1 #) [facility] HospitalQcauqdsSGPTWFXNSH4514-71-45 10:53:00 Test Item Value Reference Range Interpretation Comments Lymphocytes # (test code = Lymphocytes 0.7 1.0-5.5 #) [facility] HospitalWphndfyIDKGIRTBPI4237-17-15 10:53:00 Test Item Value Reference Range Interpretation Comments Eosinophils # (test code 0.3 See_Comment [A utomated message] The = Eosinophils #) system whic h generated this result tra nsmitted reference range : <=0.5. The reference r eileen was not used to int erpret this result as normal/abnormal . [facility] HospitalKkmfsnoZBOCUWBRYX9671-23-48 10:53:00 Test Item Value Reference Range Interpretation Comments Monocytes # (test code 1.5 See_Comment [Aut omated message] The = Monocytes #) system which generated this result tra nsmitted reference range : <=0.8. The reference r eileen was not used to int erpret this result as normal/abnormal . [facility] HospitalKqpxvvmDPUALMYOOS7629-91-46 10:53:00 Test Item Value Reference Range Interpretation Comments WBC (test code = WBC) 7.0 3.7-10.4 [facility] HospitalGrzqzqsFADFPTMNGK6387-32-20 10:53:00 Test Item Value Reference Range Interpretation Comments RBC (test code = RBC) 2.62 4.20-5.40 [facility] HospitalItqwjlnFGZRZIDAOD4750-81-75 10:53:00 Test Item Value Reference Range Interpretation Comments Hgb (test code = Hgb) 7.6 12.0-16.0 [facility] HospitalZlqqogwAFHSGGTFAB9237-16-08 10:53:00 Test Item Value Reference Range Interpretation Comments Hct (test code = Hct) 22.6 36.0-48.0 [facility] HospitalHxfnnbwWHOKSACXRJ5785-49-90 10:53:00 Test Item Value Reference Range Interpretation Comments MCV (test code = MCV) 86.4 80.0-98.0 [facility] HospitalRqhsujuVJIPXHEYVF7391-82-52 10:53:00 Test Item Value Reference Range Interpretation Comments MCHC (test code = MCHC) 33.6 32.0-36.0 [facility] HospitalGhuwhmpFLPHWOWTHM0799-94-98 10:53:00 Test Item Value Reference Range Interpretation Comments MCH (test code = MCH) 29.0 pg 27.0-31.0 [facility] HospitalXloqndsJBQPXNNHZM5131-15-70 10:53:00 Test Item Value Reference Range Interpretation Comments RDW (test code = RDW) 15.8 11.5-14.5 [facility] HospitalGztcdaqKVDUNWBXDP6362-76-13 10:53:00 Test Item Value Reference Range Interpretation Comments MPV (test code = MPV) 9.7 7.4-10.4 [facility] HospitalVowuoqtJCSZLAJFIK5271-17-42 10:53:00 Test Item Value Reference Range Interpretation [...] AGAP (test code = AGAP) 8.7 10.0-20.0 [facility] HospitalTximtenQDZOQDJKNZ9839-02-37 10:53:00 Test Item Value Reference Range Interpretation Comments Segs (test code = Segs) 64.4 45.0-75.0 [facility] HospitalKkqmbnqDPMSXADRJX4848-80-88 10:53:00 Test Item Value Reference Range Interpretation Comments Eosinophils (test code = 3.7 See_Comment [A utomated message] The Eosinophils) system which ge nerated this result tra nsmitted reference range : <=4.0. The reference r eileen was not used to int erpret this result as normal/abnormal . [facility] HospitalGurzwsiSKNVVYTRQY6239-76-81 10:53:00 Test Item Value Reference Range Interpretation Comments Monocytes (test code = Monocytes) 21.0 2.0-12.0 [facility] HospitalYiexgktEUUXGETSZP3655-01-22 10:53:00 Test Item Value Reference Range Interpretation Comments Basophils (test code = 0.7 See_Comment [Aut omated message] The Basophils) system which ge nerated this result tra nsmitted reference range : <=1.0. The reference r eileen was not used to int erpret this result as normal/abnormal . [facility] HospitalAgvydivQOUTJUOHNJ1163-03-58 10:53:00 Test Item Value Reference Range Interpretation Comments Lymphocytes (test code = Lymphocytes) 10.2 20.0-40.0 [facility] HospitalBsifobkWGKFBEYBXE5747-19-21 10:53:00 Test Item Value Reference Range Interpretation Comments Neutrophils # (test code = Neutrophils 4.5 1.5-8.1 #) [facility] HospitalPspbsgkEQESPTIXRZ2146-81-03 10:53:00 Test Item Value Reference Range Interpretation Comments Lymphocytes # (test code = Lymphocytes 0.7 1.0-5.5 #) [facility] HospitalVjpovkqZVLLXFRKZK0081-92-39 10:53:00 Test Item Value Reference Range Interpretation Comments Eosinophils # (test code 0.3 See_Comment [A utomated message] The = Eosinophils #) system whic h generated this result tra nsmitted reference range : <=0.5. The reference r eileen was not used to int erpret this result as normal/abnormal . [facility] HospitalWtamlbpHKSLNRUZRH5398-57-09 10:53:00 Test Item Value Reference Range Interpretation Comments Monocytes # (test code 1.5 See_Comment [Aut omated message] The = Monocytes #) system which generated this result tra nsmitted reference range : <=0.8. The reference r eileen was not used to int erpret this result as normal/abnormal . [facility] HospitalBfiafazNSMCOFDBSF0337-52-56 10:53:00 Test Item Value Reference Range Interpretation Comments WBC (test code = WBC) 7.0 3.7-10.4 [facility] HospitalMceslkzPYXSZPVSSD5965-13-21 10:53:00 Test Item Value Reference Range Interpretation Comments RBC (test code = RBC) 2.62 4.20-5.40 [facility] HospitalDydlmspFLHCVWTIME9614-04-05 10:53:00 Test Item Value Reference Range Interpretation Comments Hgb (test code = Hgb) 7.6 12.0-16.0 [facility] HospitalYmxvkyeQWAKBRZOCT0729-44-41 10:53:00 Test Item Value Reference Range Interpretation Comments Hct (test code = Hct) 22.6 36.0-48.0 [facility] HospitalHguioyiKLPWISTATY8303-23-74 10:53:00 Test Item Value Reference Range Interpretation Comments MCV (test code = MCV) 86.4 80.0-98.0 [facility] HospitalKzofxslYTCTWTWTTE8027-28-25 10:53:00 Test Item Value Reference Range Interpretation Comments MCHC (test code = MCHC) 33.6 32.0-36.0 [facility] HospitalUouwmetOTGUIJMRKV3049-12-05 10:53:00 Test Item Value Reference Range Interpretation Comments MCH (test code = MCH) 29.0 pg 27.0-31.0 [facility] HospitalJmzpbqwQDSRWOMHQK1801-94-19 10:53:00 Test Item Value Reference Range Interpretation Comments RDW (test code = RDW) 15.8 11.5-14.5 [facility] HospitalFdrzpavVVHUEICSAL1599-99-00 10:53:00 Test Item Value Reference Range Interpretation Comments MPV (test code = MPV) 9.7 7.4-10.4 [facility] HospitalGawhlbiBODGFTWFCN1962-12-98 10:53:00 Test Item Value Reference Range Interpretation [...] AGAP (test code = AGAP) 8.7 10.0-20.0 [facility] HospitalDrhewpsONRXZMSGSO7812-93-59 10:53:00 Test Item Value Reference Range Interpretation Comments Segs (test code = Segs) 64.4 45.0-75.0 [facility] HospitalPdahkomOZECVEUMAD3816-85-50 10:53:00 Test Item Value Reference Range Interpretation Comments Eosinophils (test code = 3.7 See_Comment [A utomated message] The Eosinophils) system which ge nerated this result tra nsmitted reference range : <=4.0. The reference r eileen was not used to int erpret this result as normal/abnormal . [facility] HospitalXkstceqGFVBLXKSQX1536-55-59 10:53:00 Test Item Value Reference Range Interpretation Comments Monocytes (test code = Monocytes) 21.0 2.0-12.0 [facility] HospitalEnfljwsHGSXTYWTAJ1727-78-99 10:53:00 Test Item Value Reference Range Interpretation Comments Basophils (test code = 0.7 See_Comment [Aut omated message] The Basophils) system which ge nerated this result tra nsmitted reference range : <=1.0. The reference r eileen was not used to int erpret this result as normal/abnormal . [facility] HospitalSyltkmyJUBQHGVVYM7249-25-90 10:53:00 Test Item Value Reference Range Interpretation Comments Lymphocytes (test code = Lymphocytes) 10.2 20.0-40.0 [facility] HospitalFggqdsvUBELZXNYDS7889-65-96 10:53:00 Test Item Value Reference Range Interpretation Comments Neutrophils # (test code = Neutrophils 4.5 1.5-8.1 #) [facility] HospitalNlxhgfiRSBJIDFJGJ1411-44-46 10:53:00 Test Item Value Reference Range Interpretation Comments Lymphocytes # (test code = Lymphocytes 0.7 1.0-5.5 #) [facility] HospitalTlptatzTRVOUKZKKQ2564-51-49 10:53:00 Test Item Value Reference Range Interpretation Comments Eosinophils # (test code 0.3 See_Comment [A utomated message] The = Eosinophils #) system [facility] h generated this result tra nsmitted reference range : <=0.5. The reference r eileen was not used to int erpret this result as normal/abnormal . [facility] HospitalZxpwfirVJLUQYVMOL3512-07-21 10:53:00 Test Item Value Reference Range Interpretation Comments Monocytes # (test code 1.5 See_Comment [Aut omated message] The = Monocytes #) system which generated this result tra nsmitted reference range : <=0.8. The reference r eileen was not used to int erpret this result as normal/abnormal . [facility] HospitalAthfqshECKSVGJXVJ7273-16-14 10:53:00 Test Item Value Reference Range Interpretation Comments WBC (test code = WBC) 7.0 3.7-10.4 [facility] HospitalWyxfzmfZUQXHUAHZW4914-69-68 10:53:00 Test Item Value Reference Range Interpretation Comments RBC (test code = RBC) 2.62 4.20-5.40 [facility] HospitalAwfzxgqPAZUCAGIMM8889-71-64 10:53:00 Test Item Value Reference Range Interpretation Comments Hgb (test code = Hgb) 7.6 12.0-16.0 [facility] HospitalCpndxdkKPNAEABLES7292-28-68 10:53:00 Test Item Value Reference Range Interpretation Comments Hct (test code = Hct) 22.6 36.0-48.0 [facility] HospitalFpdbgrzEVWSNYQMSN0002-53-68 10:53:00 Test Item Value Reference Range Interpretation Comments MCV (test code = MCV) 86.4 80.0-98.0 [facility] HospitalWlcvbwcMWGUFKNILN8793-39-83 10:53:00 Test Item Value Reference Range Interpretation Comments MCHC (test code = MCHC) 33.6 32.0-36.0 [facility] HospitalLfdvymjOSJCYMYDBG6061-95-12 10:53:00 Test Item Value Reference Range Interpretation Comments MCH (test code = MCH) 29.0 pg 27.0-31.0 [facility] HospitalZjykifpJLYMJUUWCF1894-68-03 10:53:00 Test Item Value Reference Range Interpretation Comments RDW (test code = RDW) 15.8 11.5-14.5 [facility] HospitalPkbopcuYKMDTGAMQA7190-77-53 10:53:00 Test Item Value Reference Range Interpretation Comments MPV (test code = MPV) 9.7 7.4-10.4 [facility] HospitalFktrakvHKZUSLDZYX6631-68-34 10:53:00 Test Item Value Reference Range Interpretation [...] AGAP (test code = AGAP) 8.7 10.0-20.0 [facility] HospitalYoqjdvxGUCVSIIODE6861-45-88 10:53:00 Test Item Value Reference Range Interpretation Comments Segs (test code = Segs) 64.4 45.0-75.0 [facility] HospitalHilrrolSXENPKDRAV6571-36-50 10:53:00 Test Item Value Reference Range Interpretation Comments Eosinophils (test code = 3.7 See_Comment [A utomated message] The Eosinophils) system which ge nerated this result tra nsmitted reference range : <=4.0. The reference r eileen was not used to int erpret this result as normal/abnormal . [facility] HospitalBniffuvKOXNZNVAYI0319-38-45 10:53:00 Test Item Value Reference Range Interpretation Comments Monocytes (test code = Monocytes) 21.0 2.0-12.0 [facility] HospitalYyirszgPKTEKCGGUU0161-45-81 10:53:00 Test Item Value Reference Range Interpretation Comments Basophils (test code = 0.7 See_Comment [Aut omated message] The Basophils) system which ge nerated this result tra nsmitted reference range : <=1.0. The reference r eileen was not used to int erpret this result as normal/abnormal . [facility] HospitalBrlrafuOKHYVHAHKH4979-07-29 10:53:00 Test Item Value Reference Range Interpretation Comments Lymphocytes (test code = Lymphocytes) 10.2 20.0-40.0 [facility] HospitalDnuqhvtKLNHZPCMVI9793-30-01 10:53:00 Test Item Value Reference Range Interpretation Comments Neutrophils # (test code = Neutrophils 4.5 1.5-8.1 #) [facility] HospitalGzpaxxzHJKUNZIUCP9905-47-23 10:53:00 Test Item Value Reference Range Interpretation Comments Lymphocytes # (test code = Lymphocytes 0.7 1.0-5.5 #) [facility] HospitalOimhmzdEVOYFNUYGI7587-23-47 10:53:00 Test Item Value Reference Range Interpretation Comments Eosinophils # (test code 0.3 See_Comment [A utomated message] The = Eosinophils #) system whic h generated this result tra nsmitted reference range : <=0.5. The reference r eileen was not used to int erpret this result as normal/abnormal . [facility] HospitalIlgsldzKGJOINRYBE1397-68-37 10:53:00 Test Item Value Reference Range Interpretation Comments Monocytes # (test code 1.5 See_Comment [Aut omated message] The = Monocytes #) system which generated this result tra nsmitted reference range : <=0.8. The reference r eileen was not used to int erpret this result as normal/abnormal . [facility] HospitalUdlngyeDIETSDZIIK1527-30-39 10:53:00 Test Item Value Reference Range Interpretation Comments WBC (test code = WBC) 7.0 3.7-10.4 [facility] HospitalCauevreIMZJPGHCEG9152-94-37 10:53:00 Test Item Value Reference Range Interpretation Comments RBC (test code = RBC) 2.62 4.20-5.40 [facility] HospitalNdpphcePNYOHBDUUC3944-82-59 10:53:00 Test Item Value Reference Range Interpretation Comments Hgb (test code = Hgb) 7.6 12.0-16.0 [facility] HospitalDodmsjmJVRHCGLQMI1317-51-04 10:53:00 Test Item Value Reference Range Interpretation Comments Hct (test code = Hct) 22.6 36.0-48.0 [facility] HospitalFwstwdzQNVGQGCXNW6299-76-83 10:53:00 Test Item Value Reference Range Interpretation Comments MCV (test code = MCV) 86.4 80.0-98.0 [facility] HospitalZpyiokgEBGQKEIJFI3063-09-83 10:53:00 Test Item Value Reference Range Interpretation Comments MCHC (test code = MCHC) 33.6 32.0-36.0 [facility] HospitalDgqqalmPPLSAKFZBF6427-43-59 10:53:00 Test Item Value Reference Range Interpretation Comments MCH (test code = MCH) 29.0 pg 27.0-31.0 [facility] HospitalAbdrayxBXOBWAAMSF5441-37-11 10:53:00 Test Item Value Reference Range Interpretation Comments RDW (test code = RDW) 15.8 11.5-14.5 [facility] HospitalHpxglkuVQBEGXXKOF5589-24-79 10:53:00 Test Item Value Reference Range Interpretation Comments MPV (test code = MPV) 9.7 7.4-10.4 [facility] HospitalGmjrogpIKOTMGBLLK4591-70-58 10:53:00 Test Item Value Reference Range Interpretation [...] AGAP (test code = AGAP) 8.7 10.0-20.0 [facility] HospitalKwentliGCEQGAEQPU0735-80-86 10:53:00 Test Item Value Reference Range Interpretation Comments Segs (test code = Segs) 64.4 45.0-75.0 [facility] HospitalLdsqqvpMVEMPBJDIJ6612-45-02 10:53:00 Test Item Value Reference Range Interpretation Comments Eosinophils (test code = 3.7 See_Comment [A utomated message] The Eosinophils) system which ge nerated this result tra nsmitted reference range : <=4.0. The reference r eileen was not used to int erpret this result as normal/abnormal . [facility] HospitalOmiumuhHHXUPORZCC3754-20-81 10:53:00 Test Item Value Reference Range Interpretation Comments Monocytes (test code = Monocytes) 21.0 2.0-12.0 [facility] HospitalWaozreeGQLABOGACH9655-10-34 10:53:00 Test Item Value Reference Range Interpretation Comments Basophils (test code = 0.7 See_Comment [Aut omated message] The Basophils) system which ge nerated this result tra nsmitted reference range : <=1.0. The reference r eileen was not used to int erpret this result as normal/abnormal . [facility] HospitalCatbxinLENFMVQGPC6948-43-81 10:53:00 Test Item Value Reference Range Interpretation Comments Lymphocytes (test code = Lymphocytes) 10.2 20.0-40.0 [facility] HospitalBjswuvtMHRNDVZFTT7281-57-71 10:53:00 Test Item Value Reference Range Interpretation Comments Neutrophils # (test code = Neutrophils 4.5 1.5-8.1 #) [facility] HospitalJmenjkjMATWBPTRUQ2683-58-82 10:53:00 Test Item Value Reference Range Interpretation Comments Lymphocytes # (test code = Lymphocytes 0.7 1.0-5.5 #) [facility] HospitalZypcumbLERIPSOFXR9096-91-88 10:53:00 Test Item Value Reference Range Interpretation Comments Eosinophils # (test code 0.3 See_Comment [A utomated message] The = Eosinophils #) system whic h generated this result tra nsmitted reference range : <=0.5. The reference r eileen was not used to int erpret this result as normal/abnormal . [facility] HospitalByarkvuCXZRIZIKRY3647-17-85 10:53:00 Test Item Value Reference Range Interpretation Comments Monocytes # (test code 1.5 See_Comment [Aut omated message] The = Monocytes #) system which generated this result tra nsmitted reference range : <=0.8. The reference r eileen was not used to int erpret this result as normal/abnormal . [facility] HospitalOlgsflzQNSQNYBZLC6169-61-56 10:53:00 Test Item Value Reference Range Interpretation Comments WBC (test code = WBC) 7.0 3.7-10.4 [facility] HospitalGvujeikGTCGDDHVYA9048-45-33 10:53:00 Test Item Value Reference Range Interpretation Comments RBC (test code = RBC) 2.62 4.20-5.40 [facility] HospitalMogkzjzWKVDDAEBES8835-28-95 10:53:00 Test Item Value Reference Range Interpretation Comments Hgb (test code = Hgb) 7.6 12.0-16.0 [facility] HospitalYorugtaIBZBAFYDJI9861-04-40 10:53:00 Test Item Value Reference Range Interpretation Comments Hct (test code = Hct) 22.6 36.0-48.0 [facility] HospitalDglddwnTCLMTIKVMB1027-68-91 10:53:00 Test Item Value Reference Range Interpretation Comments MCV (test code = MCV) 86.4 80.0-98.0 [facility] HospitalSvqkamoJGATIIRKTA7012-55-75 10:53:00 Test Item Value Reference Range Interpretation Comments MCHC (test code = MCHC) 33.6 32.0-36.0 [facility] HospitalGzlxognBKSRQOZHES1410-46-81 10:53:00 Test Item Value Reference Range Interpretation Comments MCH (test code = MCH) 29.0 pg 27.0-31.0 [facility] HospitalBgcbzfdRPMTVGFQDN4246-57-03 10:53:00 Test Item Value Reference Range Interpretation Comments RDW (test code = RDW) 15.8 11.5-14.5 [facility] HospitalRhiglpaHTKOARMSNZ1559-96-26 10:53:00 Test Item Value Reference Range Interpretation Comments MPV (test code = MPV) 9.7 7.4-10.4 [facility] HospitalVeegrqzRBKXIJHEVY1347-89-31 10:53:00 Test Item Value Reference Range Interpretation [...] AGAP (test code = AGAP) 8.7 10.0-20.0 [facility] HospitalFhsqoffONYKVJUJBS4399-91-52 10:53:00 Test Item Value Reference Range Interpretation Comments Segs (test code = Segs) 64.4 45.0-75.0 [facility] HospitalMyudvcmGPJGWPXGIT1538-94-41 10:53:00 Test Item Value Reference Range Interpretation Comments Eosinophils (test code = Eosinophils) 3.7 <=4.0 [facility] HospitalScwxqzbLUZXMSFDIG1881-78-92 10:53:00 Test Item Value Reference Range Interpretation Comments Monocytes (test code = Monocytes) 21.0 2.0-12.0 [facility]OjdfakxYHLFGWFHTP6337-40-82 10:53:00 Test Item Value Reference Range Interpretation Comments Basophils (test code = Basophils) 0.7 <=1.0 [facility] HospitalUbyzwjvNSUAZGDVRC6330-49-06 10:53:00 Test Item Value Reference Range Interpretation Comments Lymphocytes (test code = Lymphocytes) 10.2 20.0-40.0 [facility] HospitalLhbjhlpYLUAHZENPN9799-81-00 10:53:00 Test Item Value Reference Range Interpretation Comments Neutrophils # (test code = Neutrophils 4.5 1.5-8.1 #) [facility] HospitalHmqjfydTXLYPWYYJR7954-58-19 10:53:00 Test Item Value Reference Range Interpretation Comments Lymphocytes # (test code = Lymphocytes 0.7 1.0-5.5 #) [facility] HospitalStlhhsaPRXLBIFWMU0269-04-63 10:53:00 Test Item Value Reference Range Interpretation Comments Eosinophils # (test code = Eosinophils 0.3 <=0.5 #) [facility] HospitalNkkeljtLSVXGTTMVJ1841-45-80 10:53:00 Test Item Value Reference Range Interpretation Comments Monocytes # (test code = Monocytes #) 1.5 <=0.8 [facility] HospitalVavyzsnAWCJDSFGAD1876-05-61 10:53:00 Test Item Value Reference Range Interpretation Comments WBC (test code = WBC) 7.0 3.7-10.4 [facility] HospitalFriftlnOVJIWETPEC0900-80-20 10:53:00 Test Item Value Reference Range Interpretation Comments RBC (test code = RBC) 2.62 4.20-5.40 [facility] HospitalQhfrfqvJKXVFSNKIK0631-96-16 10:53:00 Test Item Value Reference Range Interpretation Comments Hgb (test code = Hgb) 7.6 12.0-16.0 [facility] HospitalGdtthuiEAVEMXRIGF3679-20-01 10:53:00 Test Item Value Reference Range Interpretation Comments Hct (test code = Hct) 22.6 36.0-48.0 [facility] HospitalUvcqzfgEGKFIBTXQN1014-77-29 10:53:00 Test Item Value Reference Range Interpretation Comments MCV (test code = MCV) 86.4 80.0-98.0 [facility] HospitalVycflupVHXOUSNVBJ1328-23-74 10:53:00 Test Item Value Reference Range Interpretation Comments MCHC (test code = MCHC) 33.6 32.0-36.0 [facility] HospitalYcdlnpsSUOGZHPAZH9439-36-06 10:53:00 Test Item Value Reference Range Interpretation Comments MCH (test code = MCH) 29.0 pg 27.0-31.0 [facility] HospitalOrnlhjnUFIVQAYHJG9208-92-65 10:53:00 Test Item Value Reference Range Interpretation Comments RDW (test code = RDW) 15.8 11.5-14.5 [facility] HospitalYvlampdAKFMNPZOKG8871-16-98 10:53:00 Test Item Value Reference Range Interpretation Comments MPV (test code = MPV) 9.7 7.4-10.4 [facility] HospitalAjnlbxfGDEXXGTTRC8056-20-92 10:53:00 Test Item Value Reference Range Interpretation [...] AGAP (test code = AGAP) 8.7 10.0-20.0 [facility] HospitalOabhosuWVUHTAOPHA0648-06-93 10:53:00 Test Item Value Reference Range Interpretation Comments Segs (test code = Segs) 64.4 45.0-75.0 [facility] HospitalRkwovmvVVCKWBSUYJ9614-73-93 10:53:00 Test Item Value Reference Range Interpretation Comments Eosinophils (test code = Eosinophils) 3.7 <=4.0 [facility] HospitalRaagahvSXLBJSASQO2156-03-26 10:53:00 Test Item Value Reference Range Interpretation Comments Monocytes (test code = Monocytes) 21.0 2.0-12.0 [facility] HospitalPvlghuaVHPCMUPFJB9336-58-63 10:53:00 Test Item Value Reference Range Interpretation Comments Basophils (test code = Basophils) 0.7 <=1.0 [facility] HospitalHyahtieJMVDAUXATO2763-05-36 10:53:00 Test Item Value Reference Range Interpretation Comments Lymphocytes (test code = Lymphocytes) 10.2 20.0-40.0 [facility] HospitalYpocsyqLTELSKZAJD4642-60-73 10:53:00 Test Item Value Reference Range Interpretation Comments Neutrophils # (test code = Neutrophils 4.5 1.5-8.1 #) [facility] HospitalCnteuijSMZKHCPHNF3554-49-37 10:53:00 Test Item Value Reference Range Interpretation Comments Lymphocytes # (test code = Lymphocytes 0.7 1.0-5.5 #) [facility] HospitalOrvcnocPUAWQSHJIS6146-15-93 10:53:00 Test Item Value Reference Range Interpretation Comments Eosinophils # (test code = Eosinophils 0.3 <=0.5 #) [facility] HospitalAmpwvsgYRPBEICJKY4663-91-16 10:53:00 Test Item Value Reference Range Interpretation Comments Monocytes # (test code = Monocytes #) 1.5 <=0.8 [facility] HospitalUhytuvfSBUETQWKKL2809-20-48 10:53:00 Test Item Value Reference Range Interpretation Comments WBC (test code = WBC) 7.0 3.7-10.4 [facility] HospitalPmihvnnUPGYTHUUXH8661-60-11 10:53:00 Test Item Value Reference Range Interpretation Comments RBC (test code = RBC) 2.62 4.20-5.40 [facility] HospitalTsaiukjUEXXKMNPSG9008-40-81 10:53:00 Test Item Value Reference Range Interpretation Comments Hgb (test code = Hgb) 7.6 12.0-16.0 [facility] HospitalWomsrkmEOQLGCOYZZ8532-29-36 10:53:00 Test Item Value Reference Range Interpretation Comments Hct (test code = Hct) 22.6 36.0-48.0 [facility] HospitalAbhvbojWVUMMKJBCL8274-25-72 10:53:00 Test Item Value Reference Range Interpretation Comments MCV (test code = MCV) 86.4 80.0-98.0 [facility] HospitalAvkoipnTYQTOOAFTC4389-64-60 10:53:00 Test Item Value Reference Range Interpretation Comments MCHC (test code = MCHC) 33.6 32.0-36.0 [facility] HospitalXjtkaneDQBQZRQNAE5851-59-22 10:53:00 Test Item Value Reference Range Interpretation Comments MCH (test code = MCH) 29.0 pg 27.0-31.0 [facility] HospitalWljerieOGQXMRZUUO0173-29-64 10:53:00 Test Item Value Reference Range Interpretation Comments RDW (test code = RDW) 15.8 11.5-14.5 [facility] HospitalTtryqbmUWNPZXRUEG8123-25-21 10:53:00 Test Item Value Reference Range Interpretation Comments MPV (test code = MPV) 9.7 7.4-10.4 [facility] HospitalDuqiswqUSETUGNAIS7528-44-39 10:53:00 Test Item Value Reference Range Interpretation Comments Platelet (test code = Platelet) 98 133-450 [facility] QBXRCBZ6639-35-77 11:45:00 Test Item Value Reference Range Interpretation Comments RBC product (test code Product available = RBC product) 4(01/17/19 6:45 AM) [facility] OIKJMWI0372-48-76 11:45:00 Test Item Value Reference Range Interpretation Comments RBC product (test code Product available = RBC product) 4(01/17/19 6:45 AM) [facility] TBOJDDI8655-64-62 11:45:00 Test Item Value Reference Range Interpretation Comments RBC product (test code Product available = RBC product) 4(01/17/19 6:45 AM) [facility] PAXIPAN4979-01-57 11:45:00 Test Item Value Reference Range Interpretation Comments RBC product (test code Product available = RBC product) 4(01/17/19 6:45 AM) [facility] [id number] 11:45:00 Test Item Value Reference Range Interpretation Comments RBC product (test code Product available = RBC product) 4(01/17/19 6:45 AM) [facility] [id number] 11:45:00 Test Item Value Reference Range Interpretation Comments RBC product (test code Product available = RBC product) 4(01/17/19 6:45 AM) [facility] SELNLMH9935-02-28 11:45:00 Test Item Value Reference Range Interpretation Comments RBC product (test code Product available = RBC product) 4(01/17/19 6:45 AM) [facility] [id number] 10:38:00 Test Item Value Reference Range Interpretation Comments eGFR (test code = eGFR) 10 [facility] [id number] 10:38:00 Test Item Value Reference Range Interpretation Comments BUN (test code = BUN) 34 7-22 [facility]2019-07-27 10:38:00 Test Item Value Reference Range Interpretation Comments Creatinine Lvl (test code = Creatinine 5.10 0.50-1.40 Lvl) [facility] [id number] 10:38:00 Test Item Value Reference Range Interpretation Comments Glucose Lvl (test code = Glucose Lvl) 117 70-99 [facility] [id number] 10:38:00 Test Item Value Reference Range Interpretation Comments Chloride Lvl (test code = Chloride Lvl) 106 95-109 [facility] [id number] 10:38:00 Test Item Value Reference Range Interpretation Comments Potassium Lvl (test code = Potassium 5.2 3.5-5.1 Lvl) [facility] [id number] 10:38:00 Test Item Value Reference Range Interpretation Comments Sodium Lvl (test code = Sodium Lvl) 141 135-145 [facility] [id number] 10:38:00 Test Item Value Reference Range Interpretation Comments CO2 (test code = CO2) 25 24-32 [facility]2019-07-27 10:38:00 Test Item Value Reference Range Interpretation Comments Calcium Lvl (test code = Calcium Lvl) 8.5 8.5-10.5 [facility]2019-07-27 10:38:00 Test Item Value Reference Range Interpretation Comments AGAP (test code = AGAP) 15.2 10.0-20.0 [facility] HospitalGaicnkpZLINTFQPEL6597-12-77 10:38:00 Test Item Value Reference Range Interpretation Comments Basophils (test code = 0.8 See_Comment [Aut omated message] The Basophils) system which ge nerated this result tra nsmitted reference range : <=1.0. The reference r eileen was not used to int erpret this result as normal/abnormal . [facility] HospitalXfncyzwRTESKHTFYN2560-35-89 10:38:00 Test Item Value Reference Range Interpretation Comments Segs (test code = Segs) 70.0 45.0-75.0 [facility] HospitalKfdmulgLEXLMZHNGG2433-72-48 10:38:00 Test Item Value Reference Range Interpretation Comments Lymphocytes (test code = Lymphocytes) 8.2 20.0-40.0 [facility] HospitalEmgzcubYTUGHPMCSA8605-96-88 10:38:00 Test Item Value Reference Range Interpretation Comments Monocytes (test code = Monocytes) 19.0 2.0-12.0 [facility] HospitalPjmzojvCAOTNIIVOW5798-92-97 10:38:00 Test Item Value Reference Range Interpretation Comments Eosinophils (test code = 2.0 See_Comment [A utomated message] The Eosinophils) system which ge nerated this result tra nsmitted reference range : <=4.0. The reference r eileen was not used to int erpret this result as normal/abnormal . [facility] HospitalDbqkwbaODBXIBEVTC7512-25-16 10:38:00 Test Item Value Reference Range Interpretation Comments Neutrophils # (test code = Neutrophils 4.3 1.5-8.1 #) [facility] HospitalIspbtyzRYKJVGIMZA6925-28-01 10:38:00 Test Item Value Reference Range Interpretation Comments Lymphocytes # (test code = Lymphocytes 0.5 1.0-5.5 #) [facility] HospitalBpypcavRWCXSTAFEB7101-19-15 10:38:00 Test Item Value Reference Range Interpretation Comments Monocytes # (test code 1.2 See_Comment [Aut omated message] The = Monocytes #) system which generated this result tra nsmitted reference range : <=0.8. The reference r eileen was not used to int erpret this result as normal/abnormal . [place] 312029-07-27 10:38:00 Test Item Value Reference Range Interpretation Comments Eosinophils # (test code 0.1 See_Comment [A utomated message] The = Eosinophils #) system whic h generated this result tra nsmitted reference range : <=0.5. The reference r eileen was not used to int erpret this result as normal/abnormal . [facility] HospitalXkgstufAJEIBYNSIJ8275-12-27 10:38:00 Test Item Value Reference Range Interpretation Comments Hct (test code = Hct) 21.1 36.0-48.0 [facility] HospitalUcynxddAQEJUFJTGR4368-41-03 10:38:00 Test Item Value Reference Range Interpretation Comments MCV (test code = MCV) 87.7 80.0-98.0 [facility] HospitalPrzuwozUHQDHBNMPP0123-66-59 10:38:00 Test Item Value Reference Range Interpretation Comments Hgb (test code = Hgb) 6.8 12.0-16.0 [facility] HospitalEpbjkgqGHYSOFUXFA8520-52-67 10:38:00 Test Item Value Reference Range Interpretation Comments MCH (test code = MCH) 28.4 pg 27.0-31.0 [facility] HospitalAhassavBQSNSMIYQN8691-78-23 10:38:00 Test Item Value Reference Range Interpretation Comments RDW (test code = RDW) 16.6 11.5-14.5 [facility] HospitalEayfygnGTOVTAIASD0898-22-40 10:38:00 Test Item Value Reference Range Interpretation Comments Platelet (test code = Platelet) 102 133-450 [facility] HospitalQxxcjsbGXHORXTHAG5132-25-75 10:38:00 Test Item Value Reference Range Interpretation Comments MPV (test code = MPV) 9.7 7.4-10.4 [facility] HospitalOuovmgaQUBJRGQZYM7145-66-39 10:38:00 Test Item Value Reference Range Interpretation Comments MCHC (test code = MCHC) 32.4 32.0-36.0 [facility] HospitalJrecvfySLEGKCCJBV0256-88-67 10:38:00 Test Item Value Reference Range Interpretation Comments WBC (test code = WBC) 6.1 3.7-10.4 [facility] HospitalCwxdzssTVFVUPLVWL6388-93-07 10:38:00 Test Item Value Reference Range Interpretation [...] AGAP (test code = AGAP) 15.2 10.0-20.0 [facility] HospitalHxyoduaSCYDMCCNHH5596-19-77 10:38:00 Test Item Value Reference Range Interpretation Comments Basophils (test code = 0.8 See_Comment [Aut omated message] The Basophils) system which ge nerated this result tra nsmitted reference range : <=1.0. The reference r eileen was not used to int erpret this result as normal/abnormal . [facility] HospitalZarryqsLZLHGJMXXE8762-99-22 10:38:00 Test Item Value Reference Range Interpretation Comments Segs (test code = Segs) 70.0 45.0-75.0 [facility] HospitalOzkljqxPRTBIVOHFU9950-09-84 10:38:00 Test Item Value Reference Range Interpretation Comments Lymphocytes (test code = Lymphocytes) 8.2 20.0-40.0 [facility] HospitalIfblbbeCUVEUEXNMR7212-04-82 10:38:00 Test Item Value Reference Range Interpretation Comments Monocytes (test code = Monocytes) 19.0 2.0-12.0 [facility] HospitalIxzooiaRZOVBUONUU4817-84-51 10:38:00 Test Item Value Reference Range Interpretation Comments Eosinophils (test code = 2.0 See_Comment [A utomated message] The Eosinophils) system which ge nerated this result tra nsmitted reference range : <=4.0. The reference r eileen was not used to int erpret this result as normal/abnormal . [facility] HospitalYzecpkwGSTJSZUKZA0697-33-43 10:38:00 Test Item Value Reference Range Interpretation Comments Neutrophils # (test code = Neutrophils 4.3 1.5-8.1 #) [facility] HospitalVoyxshwMFDUQKWKQT1810-44-62 10:38:00 Test Item Value Reference Range Interpretation Comments Lymphocytes # (test code = Lymphocytes 0.5 1.0-5.5 #) [facility] HospitalUpxivdyYUWXQMJCDF6812-98-04 10:38:00 Test Item Value Reference Range Interpretation Comments Monocytes # (test code 1.2 See_Comment [Aut omated message] The = Monocytes #) system which generated this result tra nsmitted reference range : <=0.8. The reference r eileen was not used to int erpret this result as normal/abnormal . [facility] HospitalIeokptdMAOVZMXMEU4127-61-17 10:38:00 Test Item Value Reference Range Interpretation Comments Eosinophils # (test code 0.1 See_Comment [A utomated message] The = Eosinophils #) system whic h generated this result tra nsmitted reference range : <=0.5. The reference r eileen was not used to int erpret this result as normal/abnormal . [facility] HospitalMkxriztMNTLBLYNRN1994-91-39 10:38:00 Test Item Value Reference Range Interpretation Comments Hct (test code = Hct) 21.1 36.0-48.0 [facility] HospitalSsnpidmXNMQPOVLXU0069-86-27 10:38:00 Test Item Value Reference Range Interpretation Comments MCV (test code = MCV) 87.7 80.0-98.0 [facility] HospitalFpkmkiaTNRMRSHDKC5249-48-37 10:38:00 Test Item Value Reference Range Interpretation Comments Hgb (test code = Hgb) 6.8 12.0-16.0 [facility] HospitalYxhujozAVAAEENGAF7347-27-80 10:38:00 Test Item Value Reference Range Interpretation Comments MCH (test code = MCH) 28.4 pg 27.0-31.0 [facility] HospitalTivkyytEUVISILXXO0431-49-43 10:38:00 Test Item Value Reference Range Interpretation Comments RDW (test code = RDW) 16.6 11.5-14.5 [facility] HospitalEptprmqSQHONIMOIS7903-72-97 10:38:00 Test Item Value Reference Range Interpretation Comments Platelet (test code = Platelet) 102 133-450 [facility] HospitalEgtqqcsFHYBXMCTLY8071-20-01 10:38:00 Test Item Value Reference Range Interpretation Comments MPV (test code = MPV) 9.7 7.4-10.4 [facility] HospitalLlpwwtlNHRRBOIMEU8161-86-23 10:38:00 Test Item Value Reference Range Interpretation Comments MCHC (test code = MCHC) 32.4 32.0-36.0 [facility] HospitalYnfdpvlHSMUGUWFDV1593-37-78 10:38:00 Test Item Value Reference Range Interpretation Comments WBC (test code = WBC) 6.1 3.7-10.4 [facility] HospitalSknhmmbVMOJHYPGEW6954-01-32 10:38:00 Test Item Value Reference Range Interpretation [...] AGAP (test code = AGAP) 15.2 10.0-20.0 [facility] HospitalEpftkcxCUWMLLCGAT1179-10-72 10:38:00 Test Item Value Reference Range Interpretation Comments Basophils (test code = 0.8 See_Comment [Aut omated message] The Basophils) system which ge nerated this result tra nsmitted reference range : <=1.0. The reference r eileen was not used to int erpret this result as normal/abnormal . [facility] HospitalSxftwfjCWYNMGFEIK6359-24-82 10:38:00 Test Item Value Reference Range Interpretation Comments Segs (test code = Segs) 70.0 45.0-75.0 [facility] HospitalOvgrgojBSAINXUOCF9044-57-77 10:38:00 Test Item Value Reference Range Interpretation Comments Lymphocytes (test code = Lymphocytes) 8.2 20.0-40.0 [facility] HospitalUhevepnHWPPPLANNP0405-85-67 10:38:00 Test Item Value Reference Range Interpretation Comments Monocytes (test code = Monocytes) 19.0 2.0-12.0 [facility] HospitalTtriklsPMBSSPYRSI0932-76-65 10:38:00 Test Item Value Reference Range Interpretation Comments Eosinophils (test code = 2.0 See_Comment [A utomated message] The Eosinophils) system which ge nerated this result tra nsmitted reference range : <=4.0. The reference r eileen was not used to int erpret this result as normal/abnormal . [facility] HospitalAxrkisxFTZOBMWSQV7970-59-45 10:38:00 Test Item Value Reference Range Interpretation Comments Neutrophils # (test code = Neutrophils 4.3 1.5-8.1 #) [facility] HospitalPxbxznaYKWQRREHRO6430-72-57 10:38:00 Test Item Value Reference Range Interpretation Comments Lymphocytes # (test code = Lymphocytes 0.5 1.0-5.5 #) [facility] HospitalEyayylsZFXFFSCRKM1597-76-21 10:38:00 Test Item Value Reference Range Interpretation Comments Monocytes # (test code 1.2 See_Comment [Aut omated message] The = Monocytes #) system which generated this result tra nsmitted reference range : <=0.8. The reference r eileen was not used to int erpret this result as normal/abnormal . [facility] HospitalEtlairxTQUVUEORDU0827-30-54 10:38:00 Test Item Value Reference Range Interpretation Comments Eosinophils # (test code 0.1 See_Comment [A utomated message] The = Eosinophils #) system whic h generated this result tra nsmitted reference range : <=0.5. The reference r eileen was not used to int erpret this result as normal/abnormal . [facility] HospitalWbonidzNMNSZCNYYK9342-61-24 10:38:00 Test Item Value Reference Range Interpretation Comments Hct (test code = Hct) 21.1 36.0-48.0 [facility] HospitalDuacnrdEWXFMYQBCI1442-08-54 10:38:00 Test Item Value Reference Range Interpretation Comments MCV (test code = MCV) 87.7 80.0-98.0 [facility] HospitalOpgjfkeUBCFSTPXMS4778-10-55 10:38:00 Test Item Value Reference Range Interpretation Comments Hgb (test code = Hgb) 6.8 12.0-16.0 [facility] HospitalCuhzxytEKGFBXNGUO4177-91-79 10:38:00 Test Item Value Reference Range Interpretation Comments MCH (test code = MCH) 28.4 pg 27.0-31.0 [facility] HospitalFybojgnAAVRZCVAKZ5961-32-86 10:38:00 Test Item Value Reference Range Interpretation Comments RDW (test code = RDW) 16.6 11.5-14.5 [facility] HospitalJwfrhnpMBFJLKHEUS5666-28-17 10:38:00 Test Item Value Reference Range Interpretation Comments Platelet (test code = Platelet) 102 133-450 [facility] HospitalHrzhmduNMMJEUKNMJ8279-32-67 10:38:00 Test Item Value Reference Range Interpretation Comments MPV (test code = MPV) 9.7 7.4-10.4 [facility] HospitalPhurdplSFOXZBWNUM3498-35-01 10:38:00 Test Item Value Reference Range Interpretation Comments MCHC (test code = MCHC) 32.4 32.0-36.0 [facility] HospitalFdngqcqYVDWCMEHIJ0767-56-06 10:38:00 Test Item Value Reference Range Interpretation Comments WBC (test code = WBC) 6.1 3.7-10.4 [facility] HospitalBzosatoAEMXZVUPMM8524-64-93 10:38:00 Test Item Value Reference Range Interpretation [...] AGAP (test code = AGAP) 15.2 10.0-20.0 [facility] HospitalGcskgvsDWMUTWNLPB6511-94-88 10:38:00 Test Item Value Reference Range Interpretation Comments Basophils (test code = 0.8 See_Comment [Aut omated message] The Basophils) system which ge nerated this result tra nsmitted reference range : <=1.0. The reference r eileen was not used to int erpret this result as normal/abnormal . [facility] HospitalUyiefoeCMSXZFDNIF7135-27-66 10:38:00 Test Item Value Reference Range Interpretation Comments Segs (test code = Segs) 70.0 45.0-75.0 [facility] HospitalJqrtuxrUORYSLLUIC6640-63-96 10:38:00 Test Item Value Reference Range Interpretation Comments Lymphocytes (test code = Lymphocytes) 8.2 20.0-40.0 [facility] HospitalArwpmhcDHHQLOWJYO4932-52-57 10:38:00 Test Item Value Reference Range Interpretation Comments Monocytes (test code = Monocytes) 19.0 2.0-12.0 [facility] HospitalYckgspcDNKXJOFYCV5050-54-04 10:38:00 Test Item Value Reference Range Interpretation Comments Eosinophils (test code = 2.0 See_Comment [A utomated message] The Eosinophils) system which ge nerated this result tra nsmitted reference range : <=4.0. The reference r eileen was not used to int erpret this result as normal/abnormal . [facility] HospitalLbcwwdlLVCEICMAVC9890-03-37 10:38:00 Test Item Value Reference Range Interpretation Comments Neutrophils # (test code = Neutrophils 4.3 1.5-8.1 #) [facility] HospitalOcpeycfHIJCAXBXAJ4517-98-90 10:38:00 Test Item Value Reference Range Interpretation Comments Lymphocytes # (test code = Lymphocytes 0.5 1.0-5.5 #) [facility] HospitalVtcnhunAMBNBZFKDU6112-13-30 10:38:00 Test Item Value Reference Range Interpretation Comments Monocytes # (test code 1.2 See_Comment [Aut omated message] The = Monocytes #) system which generated this result tra nsmitted reference range : <=0.8. The reference r eileen was not used to int erpret this result as normal/abnormal . [facility] HospitalKxbsestCIRVZANGFN7786-13-33 10:38:00 Test Item Value Reference Range Interpretation Comments Eosinophils # (test code 0.1 See_Comment [A utomated message] The = Eosinophils #) system whic h generated this result tra nsmitted reference range : <=0.5. The reference r eileen was not used to int erpret this result as normal/abnormal . [facility] HospitalYgvfyevICJYQUULUV7238-28-55 10:38:00 Test Item Value Reference Range Interpretation Comments Hct (test code = Hct) 21.1 36.0-48.0 [facility] HospitalHzsrpnhUXJSMIIFVG2612-30-64 10:38:00 Test Item Value Reference Range Interpretation Comments MCV (test code = MCV) 87.7 80.0-98.0 [facility] HospitalHenykcvAATIAWGOUK5120-77-69 10:38:00 Test Item Value Reference Range Interpretation Comments Hgb (test code = Hgb) 6.8 12.0-16.0 [facility] HospitalFoczlumZFVWLMWNES4815-61-69 10:38:00 Test Item Value Reference Range Interpretation Comments MCH (test code = MCH) 28.4 pg 27.0-31.0 [facility] HospitalGdvviibZDLLLMNGQR1967-23-00 10:38:00 Test Item Value Reference Range Interpretation Comments RDW (test code = RDW) 16.6 11.5-14.5 [facility] HospitalNlezenqJLRAWUHPZX2716-64-68 10:38:00 Test Item Value Reference Range Interpretation Comments Platelet (test code = Platelet) 102 133-450 [facility] HospitalOabusunHLJTDVRENQ3382-58-25 10:38:00 Test Item Value Reference Range Interpretation Comments MPV (test code = MPV) 9.7 7.4-10.4 [facility] HospitalXlckfpoFKPVJFFJMJ2793-27-76 10:38:00 Test Item Value Reference Range Interpretation Comments MCHC (test code = MCHC) 32.4 32.0-36.0 [facility] HospitalTcgovovDAOCDQAVLT6368-09-22 10:38:00 Test Item Value Reference Range Interpretation Comments WBC (test code = WBC) 6.1 3.7-10.4 [facility] HospitalJjxxdhxLSPLXTVQEF3346-04-31 10:38:00 Test Item Value Reference Range Interpretation [...] AGAP (test code = AGAP) 15.2 10.0-20.0 [facility] HospitalRsickfpZLJCTTGSUT8690-01-77 10:38:00 Test Item Value Reference Range Interpretation Comments Basophils (test code = 0.8 See_Comment [Aut omated message] The Basophils) system which ge nerated this result tra nsmitted reference range : <=1.0. The reference r eileen was not used to int erpret this result as normal/abnormal . [facility] HospitalOewgdsrFNSIJEIETC7836-73-28 10:38:00 Test Item Value Reference Range Interpretation Comments Segs (test code = Segs) 70.0 45.0-75.0 [facility] HospitalLzfecpwBMRBBNVPVA6400-46-31 10:38:00 Test Item Value Reference Range Interpretation Comments Lymphocytes (test code = Lymphocytes) 8.2 20.0-40.0 [facility] HospitalOhryxloZWYZDVGBRP3840-89-55 10:38:00 Test Item Value Reference Range Interpretation Comments Monocytes (test code = Monocytes) 19.0 2.0-12.0 [facility] HospitalEdfsrumNDDAHWEFES9588-58-93 10:38:00 Test Item Value Reference Range Interpretation Comments Eosinophils (test code = 2.0 See_Comment [A utomated message] The Eosinophils) system which ge nerated this result tra nsmitted reference range : <=4.0. The reference r eileen was not used to int erpret this result as normal/abnormal . [facility] HospitalHwoteoyJXADAYZIVY9610-89-14 10:38:00 Test Item Value Reference Range Interpretation Comments Neutrophils # (test code = Neutrophils 4.3 1.5-8.1 #) [facility] HospitalGwiclseSEIWDLAFMH6704-69-87 10:38:00 Test Item Value Reference Range Interpretation Comments Lymphocytes # (test code = Lymphocytes 0.5 1.0-5.5 #) [facility] HospitalCoxxcqpDFEJVVDFGT7640-59-92 10:38:00 Test Item Value Reference Range Interpretation Comments Monocytes # (test code 1.2 See_Comment [Aut omated message] The = Monocytes #) system which generated this result tra nsmitted reference range : <=0.8. The reference r eileen was not used to int erpret this result as normal/abnormal . [facility] HospitalAjcethsTYCYYJMROP6178-92-03 10:38:00 Test Item Value Reference Range Interpretation Comments Eosinophils # (test code 0.1 See_Comment [A utomated message] The = Eosinophils #) system whic h generated this result tra nsmitted reference range : <=0.5. The reference r eileen was not used to int erpret this result as normal/abnormal . [facility] HospitalEdtomupOIQZSZNHRZ2576-49-38 10:38:00 Test Item Value Reference Range Interpretation Comments Hct (test code = Hct) 21.1 36.0-48.0 [facility] HospitalCcvopooJWKTFKTJFA9278-08-07 10:38:00 Test Item Value Reference Range Interpretation Comments MCV (test code = MCV) 87.7 80.0-98.0 [facility] HospitalZlozgfnNLUOQPRAPE0059-88-19 10:38:00 Test Item Value Reference Range Interpretation Comments Hgb (test code = Hgb) 6.8 12.0-16.0 [facility] HospitalSbcsmqtXIKEQGMUCT6836-79-64 10:38:00 Test Item Value Reference Range Interpretation Comments MCH (test code = MCH) 28.4 pg 27.0-31.0 [facility] HospitalAaspyclFTVXKAGXGV0871-76-08 10:38:00 Test Item Value Reference Range Interpretation Comments RDW (test code = RDW) 16.6 11.5-14.5 [facility] HospitalHzfitnkMSHQKENTKD0834-25-12 10:38:00 Test Item Value Reference Range Interpretation Comments Platelet (test code = Platelet) 102 133-450 [facility] HospitalYabpbmsCHLGJCUTHL4652-17-83 10:38:00 Test Item Value Reference Range Interpretation Comments MPV (test code = MPV) 9.7 7.4-10.4 [facility] HospitalJbzppjaCJQVTUCXGS2057-15-34 10:38:00 Test Item Value Reference Range Interpretation Comments MCHC (test code = MCHC) 32.4 32.0-36.0 [facility] HospitalEtsptdfIYKDEBCDLT9457-39-93 10:38:00 Test Item Value Reference Range Interpretation Comments WBC (test code = WBC) 6.1 3.7-10.4 [facility] HospitalFvomoqsGWJNBBNEGM1176-27-35 10:38:00 Test Item Value Reference Range Interpretation [...] AGAP (test code = AGAP) 15.2 10.0-20.0 [facility] HospitalPydqyuaSMVKDARQVG4340-33-40 10:38:00 Test Item Value Reference Range Interpretation Comments Basophils (test code = Basophils) 0.8 <=1.0 [facility] HospitalDwgfzqxUWRYYEMRVB6379-90-03 10:38:00 Test Item Value Reference Range Interpretation Comments Segs (test code = Segs) 70.0 45.0-75.0 [facility] HospitalFnizhcnZYFKOVMQHI2926-20-57 10:38:00 Test Item Value Reference Range Interpretation Comments Lymphocytes (test code = Lymphocytes) 8.2 20.0-40.0 [facility] HospitalKentxpuMZLJONRYDD2108-34-32 10:38:00 Test Item Value Reference Range Interpretation Comments Monocytes (test code = Monocytes) 19.0 2.0-12.0 [facility] HospitalPbnqnylMLBPZJCDXZ1199-72-06 10:38:00 Test Item Value Reference Range Interpretation Comments Eosinophils (test code = Eosinophils) 2.0 <=4.0 [facility] HospitalFnrqhajVZCGOWSOYU4334-41-23 10:38:00 Test Item Value Reference Range Interpretation Comments Neutrophils # (test code = Neutrophils 4.3 1.5-8.1 #) [facility] HospitalBsxeeeqZTPQXFGYNR7371-64-62 10:38:00 Test Item Value Reference Range Interpretation Comments Lymphocytes # (test code = Lymphocytes 0.5 1.0-5.5 #) [facility] HospitalAboaxyjHQRMHXVGIE9370-96-80 10:38:00 Test Item Value Reference Range Interpretation Comments Monocytes # (test code = Monocytes #) 1.2 <=0.8 [facility] HospitalJvwsigiHJEYSXLJZA2612-10-24 10:38:00 Test Item Value Reference Range Interpretation Comments Eosinophils # (test code = Eosinophils 0.1 <=0.5 #) [facility] HospitalUzvdwlbABESOLQJHM9752-37-81 10:38:00 Test Item Value Reference Range Interpretation Comments Hct (test code = Hct) 21.1 36.0-48.0 [facility] HospitalBhxjhroDXBAOMMBIN7427-40-75 10:38:00 Test Item Value Reference Range Interpretation Comments MCV (test code = MCV) 87.7 80.0-98.0 [facility] HospitalVfcbgffGIVILZCULC6019-03-63 10:38:00 Test Item Value Reference Range Interpretation Comments Hgb (test code = Hgb) 6.8 12.0-16.0 [facility] HospitalXleejejZNHQSTFSAK8567-47-82 10:38:00 Test Item Value Reference Range Interpretation Comments MCH (test code = MCH) 28.4 pg 27.0-31.0 [facility] HospitalMjuyclvYNLLPVCOPG6618-18-09 10:38:00 Test Item Value Reference Range Interpretation Comments RDW (test code = RDW) 16.6 11.5-14.5 [facility] HospitalJhonbidKJUSTMYWHX8303-25-03 10:38:00 Test Item Value Reference Range Interpretation Comments Platelet (test code = Platelet) 102 133-450 [facility] HospitalFqpnnnjTLEPILOXJT1874-96-24 10:38:00 Test Item Value Reference Range Interpretation Comments MPV (test code = MPV) 9.7 7.4-10.4 [facility] HospitalRjbaqylOGSLBWENCK3691-96-16 10:38:00 Test Item Value Reference Range Interpretation Comments MCHC (test code = MCHC) 32.4 32.0-36.0 [facility] HospitalJqmursnQETXFWWCVB2759-16-46 10:38:00 Test Item Value Reference Range Interpretation Comments WBC (test code = WBC) 6.1 3.7-10.4 [facility] HospitalNyofbnmRBUNZPWABY5025-49-55 10:38:00 Test Item Value Reference Range Interpretation [...] AGAP (test code = AGAP) 15.2 10.0-20.0 [facility] HospitalCkczytiLAISWZZBAS1458-89-85 10:38:00 Test Item Value Reference Range Interpretation Comments Basophils (test code = Basophils) 0.8 <=1.0 [facility] HospitalFoqewrrFPKVWNWUOW6742-37-25 10:38:00 Test Item Value Reference Range Interpretation Comments Segs (test code = Segs) 70.0 45.0-75.0 [facility] HospitalFdthcdwPLOXXKMHSF3705-35-20 10:38:00 Test Item Value Reference Range Interpretation Comments Lymphocytes (test code = Lymphocytes) 8.2 20.0-40.0 [facility] HospitalPnllxixCSZKBIMNXJ5529-28-98 10:38:00 Test Item Value Reference Range Interpretation Comments Monocytes (test code = Monocytes) 19.0 2.0-12.0 [facility] HospitalDtreeouOUFRMTZHVS8741-23-05 10:38:00 Test Item Value Reference Range Interpretation Comments Eosinophils (test code = Eosinophils) 2.0 <=4.0 [facility] HospitalKgqihcfOPYBLZDEDW2104-19-96 10:38:00 Test Item Value Reference Range Interpretation Comments Neutrophils # (test code = Neutrophils 4.3 1.5-8.1 #) [facility] HospitalWcjtknlPWTODVLINF3940-80-21 10:38:00 Test Item Value Reference Range Interpretation Comments Lymphocytes # (test code = Lymphocytes 0.5 1.0-5.5 #) [facility] HospitalUlxuxbfNQWTKTDUGV9173-05-01 10:38:00 Test Item Value Reference Range Interpretation Comments Monocytes # (test code = Monocytes #) 1.2 <=0.8 [facility] HospitalDikgvrtFFXLDGYYXK6102-27-22 10:38:00 Test Item Value Reference Range Interpretation Comments Eosinophils # (test code = Eosinophils 0.1 <=0.5 #) [facility] HospitalMqeoekvBVDLARJCYN0760-25-69 10:38:00 Test Item Value Reference Range Interpretation Comments Hct (test code = Hct) 21.1 36.0-48.0 [facility] HospitalMhbtokuZDKPLOLYOT5325-33-41 10:38:00 Test Item Value Reference Range Interpretation Comments MCV (test code = MCV) 87.7 80.0-98.0 [facility] HospitalRdjtadhCDQKVRVSTV7195-67-12 10:38:00 Test Item Value Reference Range Interpretation Comments Hgb (test code = Hgb) 6.8 12.0-16.0 [facility] HospitalRynucmnVBWDPPUGHA4795-75-51 10:38:00 Test Item Value Reference Range Interpretation Comments MCH (test code = MCH) 28.4 pg 27.0-31.0 [facility] HospitalRqtilxdGSUJQOZAPH2522-79-18 10:38:00 Test Item Value Reference Range Interpretation Comments RDW (test code = RDW) 16.6 11.5-14.5 [facility] HospitalKzrcsugWPSAUYRQVK1225-92-25 10:38:00 Test Item Value Reference Range Interpretation Comments Platelet (test code = Platelet) 102 133-450 [facility] HospitalMkatvoiQDMYQUUYWN6137-49-92 10:38:00 Test Item Value Reference Range Interpretation Comments MPV (test code = MPV) 9.7 7.4-10.4 [facility] HospitalJizsrrdWMFGIVCCEW5988-90-05 10:38:00 Test Item Value Reference Range Interpretation Comments MCHC (test code = MCHC) 32.4 32.0-36.0 [facility] HospitalGvmgoypHFCRPJCGMU9567-33-76 10:38:00 Test Item Value Reference Range Interpretation Comments WBC (test code = WBC) 6.1 3.7-10.4 [facility] HospitalUceoshdCTBMJPNKVP1163-46-84 10:38:00 Test Item Value Reference Range Interpretation Comments RBC (test code = RBC) 2.41 4.20-5.40 [facility]RiuaskdENSDRPAUZP8389-21-39 19:50:00 Test Item Value Reference Range Interpretation Comments Hep C Ab (test code = Negative *NA*(01/16/19 Hep C Ab) 2:50 PM) [facility] HospitalBvriauhMFGICFWDCZ8883-27-37 19:50:00 Test Item Value Reference Range Interpretation Comments Hep Bs Ab (test code = Hep Bs Ab) no gt [facility] HospitalLwpmvibPIZHILJWIH6619-24-02 19:50:00 Test Item Value Reference Range Interpretation Comments Hep B Core Ab (test Negative *NA*(01/16/19 code = Hep B Core Ab) 2:50 PM) [facility] HospitalIzmklnfAVFYYBZDXB1096-80-32 19:50:00 Test Item Value Reference Range Interpretation Comments Hep Bs Ag (test code Negative *NA*(01/16/19 = Hep Bs Ag) 2:50 PM) [facility] HospitalJpbreiaRLPXKWNYOM9395-80-53 19:50:00 Test Item Value Reference Range Interpretation Comments Hep C Ab (test code = Negative *NA*(01/16/19 Hep C Ab) 2:50 PM) [facility] HospitalBfheocyIIUIOISNMG1784-67-27 19:50:00 Test Item Value Reference Range Interpretation Comments Hep Bs Ab (test code = Hep Bs Ab) no gt [facility] HospitalHwbnkusDETPNXODJJ7888-30-37 19:50:00 Test Item Value Reference Range Interpretation Comments Hep B Core Ab (test Negative *NA*(01/16/19 code = Hep B Core Ab) 2:50 PM) [facility] HospitalCryndpoOGUNWCDLWT0268-72-69 19:50:00 Test Item Value Reference Range Interpretation Comments Hep Bs Ag (test code Negative *NA*(01/16/19 = Hep Bs Ag) 2:50 PM) [facility] HospitalZctyxznQAMUIUDYTX9186-68-41 19:50:00 Test Item Value Reference Range Interpretation Comments Hep C Ab (test code = Negative *NA*(01/16/19 Hep C Ab) 2:50 PM) [facility] HospitalIavrlsuCHCYENUZUG9021-18-43 19:50:00 Test Item Value Reference Range Interpretation Comments Hep Bs Ab (test code = Hep Bs Ab) no gt [facility] HospitalItsxgitUQXSPHXNDT5179-75-09 19:50:00 Test Item Value Reference Range Interpretation Comments Hep B Core Ab (test Negative *NA*(01/16/19 code = Hep B Core Ab) 2:50 PM) [facility] HospitalMkkaawaUCLIKZGRGG8738-25-51 19:50:00 Test Item Value Reference Range Interpretation Comments Hep Bs Ag (test code Negative *NA*(01/16/19 = Hep Bs Ag) 2:50 PM) [facility] HospitalFllkinzGUFDRAIKAO8340-58-57 19:50:00 Test Item Value Reference Range Interpretation Comments Hep C Ab (test code = Negative *NA*(01/16/19 Hep C Ab) 2:50 PM) [facility] HospitalCeytxftAQWFCHVQZB8742-76-78 19:50:00 Test Item Value Reference Range Interpretation Comments Hep Bs Ab (test code = Hep Bs Ab) no gt [facility] HospitalOtcbwurQUOKQJMXLV5841-14-27 19:50:00 Test Item Value Reference Range Interpretation Comments Hep B Core Ab (test Negative *NA*(01/16/19 code = Hep B Core Ab) 2:50 PM) [facility] HospitalEpeyyepBRCFPSZQBA8134-24-84 19:50:00 Test Item Value Reference Range Interpretation Comments Hep Bs Ag (test code Negative *NA*(01/16/19 = Hep Bs Ag) 2:50 PM) [facility] HospitalYihnjjqFQNBKUQHSI4840-04-02 19:50:00 Test Item Value Reference Range Interpretation Comments Hep C Ab (test code = Negative *NA*(01/16/19 Hep C Ab) 2:50 PM) [facility] HospitalMtqdyqnWUMMGWPMTQ2955-34-00 19:50:00 Test Item Value Reference Range Interpretation Comments Hep Bs Ab (test code = Hep Bs Ab) no gt [facility] HospitalDxzrhdfPKQQTJODEY9787-42-03 19:50:00 Test Item Value Reference Range Interpretation Comments Hep B Core Ab (test Negative *NA*(01/16/19 code = Hep B Core Ab) 2:50 PM) [facility] HospitalHnhqajwVCMXLKJPAK8242-51-83 19:50:00 Test Item Value Reference Range Interpretation Comments Hep Bs Ag (test code Negative *NA*(01/16/19 = Hep Bs Ag) 2:50 PM) [facility]CjiavlfCRUPCBCEOM0213-65-23 19:50:00 Test Item Value Reference Range Interpretation Comments Hep C Ab (test code = Negative *NA*(01/16/19 Hep C Ab) 2:50 PM) [facility] HospitalEedaayqXMSAIRIPWS4736-39-50 19:50:00 Test Item Value Reference Range Interpretation Comments Hep Bs Ab (test code = Hep Bs Ab) no gt [facility] HospitalZphhwhvBRFBNWRBFS6267-22-66 19:50:00 Test Item Value Reference Range Interpretation Comments Hep B Core Ab (test Negative *NA*(01/16/19 code = Hep B Core Ab) 2:50 PM) [facility] HospitalQkngrzcIABCIDKEBO9650-29-49 19:50:00 Test Item Value Reference Range Interpretation Comments Hep Bs Ag (test code Negative *NA*(01/16/19 = Hep Bs Ag) 2:50 PM) [facility] HospitalFnovetfXQYZWFCTXX0545-43-30 19:50:00 Test Item Value Reference Range Interpretation Comments Hep C Ab (test code = Negative *NA*(01/16/19 Hep C Ab) 2:50 PM) [facility] HospitalFipkldoLFABCDSULJ2546-05-89 19:50:00 Test Item Value Reference Range Interpretation Comments Hep Bs Ab (test code = Hep Bs Ab) no gt [facility] HospitalSuzjwjtVJTXHDLZXH4647-53-12 19:50:00 Test Item Value Reference Range Interpretation Comments Hep B Core Ab (test Negative *NA*(01/16/19 code = Hep B Core Ab) 2:50 PM) [facility] HospitalUmlmkskVJGOAQVVYF3798-53-13 19:50:00 Test Item Value Reference Range Interpretation Comments Hep Bs Ag (test code Negative *NA*(01/16/19 = Hep Bs Ag) 2:50 PM) [facility] EPRWQ8893-97-51 19:08:56 Test Item Value Reference Range Interpretation Comments eGFR (test code = eGFR) 8 [facility]CHE[facility] RHQSS9033-78-50 19:08:56 Test Item Value Reference Range Interpretation Comments Potassium Lvl (test code = Potassium 3.3 3.5-5.1 Lvl) [facility]ITALSBJOF3162-39-82 19:08:56 Test Item Value Reference Range Interpretation Comments Chloride Lvl (test code = Chloride Lvl) 108 95-109 [facility]2019-07-26 19:08:56 Test Item Value Reference Range Interpretation [...] BUN (test code = BUN) 47 7-22 [place] 642259-07-26 19:08:56 Test Item Value Reference Range Interpretation Comments Creatinine Lvl (test code = Creatinine 5.77 0.50-1.40 Lvl) [facility]2019-07-26 19:08:56 Test Item Value Reference Range Interpretation Comments Glucose Lvl (test code = Glucose Lvl) 131 70-99 [facility] HospitalWpwqfenZYCKNBSGGT0449-67-60 19:08:56 Test Item Value Reference Range Interpretation Comments Hct (test code = Hct) 26.2 36.0-48.0 [place] 312029-07-26 19:08:56 Test Item Value Reference Range Interpretation Comments Hgb (test code = Hgb) 8.3 12.0-16.0 [facility] HospitalPvvmwdyHGCLCWTEPQ1750-75-41 19:08:56 Test Item Value Reference Range Interpretation Comments RBC (test code = RBC) 2.98 4.20-5.40 [facility] HospitalCzqrtjeVMHSMZSFGV9099-11-12 19:08:56 Test Item Value Reference Range Interpretation Comments WBC (test code = WBC) 4.6 3.7-10.4 [facility] HospitalYvhpsvlTAWLHEMDLZ7257-82-54 19:08:56 Test Item Value Reference Range Interpretation Comments RDW (test code = RDW) 16.7 11.5-14.5 [facility] HospitalWpxpdtcAUJOQVIJNE6332-85-30 19:08:56 Test Item Value Reference Range Interpretation Comments MCHC (test code = MCHC) 31.8 32.0-36.0 [facility] HospitalAmgfgdtBTTYDDXBGM6871-36-84 19:08:56 Test Item Value Reference Range Interpretation Comments MCH (test code = MCH) 28.0 pg 27.0-31.0 [facility] HospitalBtomvsfHNRBUNGMYC3085-79-61 19:08:56 Test Item Value Reference Range Interpretation Comments MCV (test code = MCV) 87.9 80.0-98.0 [facility] HospitalNqpqzzqEGKTIXGNSL1561-70-15 19:08:56 Test Item Value Reference Range Interpretation Comments MPV (test code = MPV) 9.1 7.4-10.4 [facility] HospitalQguswluQOOZOCIKGD4259-64-65 19:08:56 Test Item Value Reference Range Interpretation Comments Platelet (test code = Platelet) 140 133-450 [facility] HospitalWdxbbsaTZCKNQOZAN6702-77-62 19:08:56 Test Item Value Reference Range Interpretation Comments Eosinophils # (test code 0.1 See_Comment [A utomated message] The = Eosinophils #) system whic h generated this result tra nsmitted reference range : <=0.5. The reference r eileen was not used to int erpret this result as normal/abnormal . [facility] HospitalEiispwiBJTXKOCRDB8482-72-86 19:08:56 Test Item Value Reference Range Interpretation Comments Monocytes # (test code 0.6 See_Comment [Aut omated message] The = Monocytes #) system which generated this result tra nsmitted reference range : <=0.8. The reference r eileen was not used to int erpret this result as normal/abnormal . [facility] HospitalGvkzigzKFODUEFKAU8277-18-87 19:08:56 Test Item Value Reference Range Interpretation Comments Lymphocytes # (test code = Lymphocytes 0.9 1.0-5.5 #) [facility] HospitalRhckulwZOZZZRVTHO1531-36-91 19:08:56 Test Item Value Reference Range Interpretation Comments Lymphocytes (test code = Lymphocytes) 19.1 20.0-40.0 [facility] HospitalWbzndrxOHKXTXMZQS1713-12-47 19:08:56 Test Item Value Reference Range Interpretation Comments Segs (test code = Segs) 65.9 45.0-75.0 [facility] HospitalNsuzxudVQYDOWOBUD4030-58-07 19:08:56 Test Item Value Reference Range Interpretation Comments Eosinophils (test code = 2.3 See_Comment [A utomated message] The Eosinophils) system which ge nerated this result tra nsmitted reference range : <=4.0. The reference r eileen was not used to int erpret this result as normal/abnormal . [facility] HospitalHkvaowaUMSIZFHZFZ0537-33-55 19:08:56 Test Item Value Reference Range Interpretation Comments Monocytes (test code = Monocytes) 12.1 2.0-12.0 [facility] HospitalOnuufwdXFITDXXUDW2761-68-32 19:08:56 Test Item Value Reference Range Interpretation Comments Neutrophils # (test code = Neutrophils 3.1 1.5-8.1 #) [facility] HospitalBrjzwkcLSTMIUIGWZ4146-95-23 19:08:56 Test Item Value Reference Range Interpretation [...] (test code = Glucose Lvl) 131 70-99 [facility] HospitalJlqjefnPRIFPDEIGK6734-50-64 19:08:56 Test Item Value Reference Range Interpretation Comments Hct (test code = Hct) 26.2 36.0-48.0 [facility] HospitalQszztvdARUANAQJUX6931-96-83 19:08:56 Test Item Value Reference Range Interpretation Comments Hgb (test code = Hgb) 8.3 12.0-16.0 [facility] HospitalSkksgkfXKMHJWXJCJ2487-72-75 19:08:56 Test Item Value Reference Range Interpretation Comments RBC (test code = RBC) 2.98 4.20-5.40 [facility] HospitalBmzqubfNPCOFKXZKQ8696-39-23 19:08:56 Test Item Value Reference Range Interpretation Comments WBC (test code = WBC) 4.6 3.7-10.4 [facility] HospitalGuoyupvGKSQUQRIKR8562-13-73 19:08:56 Test Item Value Reference Range Interpretation Comments RDW (test code = RDW) 16.7 11.5-14.5 [facility] HospitalNrezyqnEHIJLBLLEG7278-13-99 19:08:56 Test Item Value Reference Range Interpretation Comments MCHC (test code = MCHC) 31.8 32.0-36.0 [facility] HospitalSybmuvdJGPFTNQXNS4801-05-55 19:08:56 Test Item Value Reference Range Interpretation Comments MCH (test code = MCH) 28.0 pg 27.0-31.0 [facility] HospitalGfqcvwyHVAYRDRNGY8621-28-88 19:08:56 Test Item Value Reference Range Interpretation Comments MCV (test code = MCV) 87.9 80.0-98.0 [facility] HospitalTisorhtZOMCPPVHWC0112-32-36 19:08:56 Test Item Value Reference Range Interpretation Comments MPV (test code = MPV) 9.1 7.4-10.4 [facility] HospitalRlzzhfcHSIFDLSLUL3787-14-65 19:08:56 Test Item Value Reference Range Interpretation Comments Platelet (test code = Platelet) 140 133-450 [facility] HospitalYhomblgQJDTPSJPOZ8347-98-08 19:08:56 Test Item Value Reference Range Interpretation Comments Eosinophils # (test code 0.1 See_Comment [A utomated message] The = Eosinophils #) system whic h generated this result tra nsmitted reference range : <=0.5. The reference r eileen was not used to int erpret this result as normal/abnormal . [facility] HospitalRsiuuybPUQQVMNJDU8363-12-51 19:08:56 Test Item Value Reference Range Interpretation Comments Monocytes # (test code 0.6 See_Comment [Aut omated message] The = Monocytes #) system which generated this result tra nsmitted reference range : <=0.8. The reference r eileen was not used to int erpret this result as normal/abnormal . [facility] HospitalMbfadhdAIEDAGIDTV2584-04-64 19:08:56 Test Item Value Reference Range Interpretation Comments Lymphocytes # (test code = Lymphocytes 0.9 1.0-5.5 #) [facility] HospitalYesiastXGZIGVKMQS2747-78-31 19:08:56 Test Item Value Reference Range Interpretation Comments Lymphocytes (test code = Lymphocytes) 19.1 20.0-40.0 [facility] HospitalGxdwtczTBEZXBLFRP2016-94-82 19:08:56 Test Item Value Reference Range Interpretation Comments Segs (test code = Segs) 65.9 45.0-75.0 [facility] HospitalJkkhnspUYCGBDDLIZ3926-10-84 19:08:56 Test Item Value Reference Range Interpretation Comments Eosinophils (test code = 2.3 See_Comment [A utomated message] The Eosinophils) system which ge nerated this result tra nsmitted reference range : <=4.0. The reference r eileen was not used to int erpret this result as normal/abnormal . [facility] HospitalNpfocazLPWNQWLSDA0132-61-23 19:08:56 Test Item Value Reference Range Interpretation Comments Monocytes (test code = Monocytes) 12.1 2.0-12.0 [facility] HospitalSrfdybeWXBVOTJZNL4911-96-22 19:08:56 Test Item Value Reference Range Interpretation Comments Neutrophils # (test code = Neutrophils 3.1 1.5-8.1 #) [facility] HospitalTcbtlngZQSMGMVDQI1991-60-75 19:08:56 Test Item Value Reference Range Interpretation [...] (test code = Glucose Lvl) 131 70-99 [facility] HospitalZmrighwCBRIYVYQHQ1246-90-27 19:08:56 Test Item Value Reference Range Interpretation Comments Hct (test code = Hct) 26.2 36.0-48.0 [facility] HospitalExhaivxTQSTNLGIUH6826-38-92 19:08:56 Test Item Value Reference Range Interpretation Comments Hgb (test code = Hgb) 8.3 12.0-16.0 [place] [address]-07-26 19:08:56 Test Item Value Reference Range Interpretation Comments RBC (test code = RBC) 2.98 4.20-5.40 [facility] HospitalDrulhhiSPQJSAPCXZ7674-53-20 19:08:56 Test Item Value Reference Range Interpretation Comments WBC (test code = WBC) 4.6 3.7-10.4 [facility] Hospital[facility]hutiakSUXEUHIGXW0989-50-42 19:08:56 Test Item Value Reference Range Interpretation Comments RDW (test code = RDW) 16.7 11.5-14.5 [facility] HospitalEexmwwpDEEVSCSNBB7796-22-66 19:08:56 Test Item Value Reference Range Interpretation Comments MCHC (test code = MCHC) 31.8 32.0-36.0 [facility] HospitalYyspjboVHNJZHZKAY5570-25-22 19:08:56 Test Item Value Reference Range Interpretation Comments MCH (test code = MCH) 28.0 pg 27.0-31.0 [facility] HospitalVxhxnejSFNSWWKLDV4238-56-95 19:08:56 Test Item Value Reference Range Interpretation Comments MCV (test code = MCV) 87.9 80.0-98.0 [facility] HospitalHsyffaeWFLZKQYOMZ8291-23-64 19:08:56 Test Item Value Reference Range Interpretation Comments MPV (test code = MPV) 9.1 7.4-10.4 [facility] HospitalCbvwdgaBPNCWIUUXP6771-13-78 19:08:56 Test Item Value Reference Range Interpretation Comments Platelet (test code = Platelet) 140 133-450 [facility] HospitalIjtgtenBKLOZFFZHX5433-04-22 19:08:56 Test Item Value Reference Range Interpretation Comments Eosinophils # (test code 0.1 See_Comment [A utomated message] The = Eosinophils #) system whic h generated this result tra nsmitted reference range : <=0.5. The reference r eileen was not used to int erpret this result as normal/abnormal . [facility] HospitalBystfepHYTQKYHCRF3388-50-11 19:08:56 Test Item Value Reference Range Interpretation Comments Monocytes # (test code 0.6 See_Comment [Aut omated message] The = Monocytes #) system which generated this result tra nsmitted reference range : <=0.8. The reference r eileen was not used to int erpret this result as normal/abnormal . [facility] HospitalGjxsnotHRJKMPNENJ9619-17-62 19:08:56 Test Item Value Reference Range Interpretation Comments Lymphocytes # (test code = Lymphocytes 0.9 1.0-5.5 #) [facility] HospitalAyfizgrWMXWYFXRLD0403-38-95 19:08:56 Test Item Value Reference Range Interpretation Comments Lymphocytes (test code = Lymphocytes) 19.1 20.0-40.0 [facility] HospitalYlxgejqVGNXJIJEDJ0246-60-62 19:08:56 Test Item Value Reference Range Interpretation Comments Segs (test code = Segs) 65.9 45.0-75.0 [facility] HospitalYpstqrrHERCNVQFTQ7015-51-98 19:08:56 Test Item Value Reference Range Interpretation Comments Eosinophils (test code = 2.3 See_Comment [A utomated message] The Eosinophils) system which ge nerated this result tra nsmitted reference range : <=4.0. The reference r eileen was not used to int erpret this result as normal/abnormal . [facility] HospitalVgkurwxFSQMXACTSI3344-96-52 19:08:56 Test Item Value Reference Range Interpretation Comments Monocytes (test code = Monocytes) 12.1 2.0-12.0 [facility] HospitalPafakckBERJFMCUFB8524-51-28 19:08:56 Test Item Value Reference Range Interpretation Comments Neutrophils # (test code = Neutrophils 3.1 1.5-8.1 #) [facility] HospitalVbjnojdETLDMIFDFM1731-32-56 19:08:56 Test Item Value Reference Range Interpretation [...] AGAP (test code = AGAP) 12.3 10.0-20.0 [place] 642259-07-26 19:08:56 Test Item Value Reference Range Interpretation [...] (test code = Glucose Lvl) 131 70-99 [facility] HospitalUcjnbuzJULAOHTDXD0646-25-90 19:08:56 Test Item Value Reference Range Interpretation Comments Hct (test code = Hct) 26.2 36.0-48.0 [facility] HospitalGchkdmvHAQFDNYVWH6476-27-60 19:08:56 Test Item Value Reference Range Interpretation Comments Hgb (test code = Hgb) 8.3 12.0-16.0 [facility] HospitalDarshoeGRIPTPKEYV4892-00-25 19:08:56 Test Item Value Reference Range Interpretation Comments RBC (test code = RBC) 2.98 4.20-5.40 [facility] HospitalVncqmhbILASFFPYLZ6184-54-17 19:08:56 Test Item Value Reference Range Interpretation Comments WBC (test code = WBC) 4.6 3.7-10.4 [place] 312029-07-26 19:08:56 Test Item Value Reference Range Interpretation Comments RDW (test code = RDW) 16.7 11.5-14.5 [place] 312029-07-26 19:08:56 Test Item Value Reference Range Interpretation Comments MCHC (test code = MCHC) 31.8 32.0-36.0 [facility] HospitalIoqsnlhULQDDRMWPJ2770-81-04 19:08:56 Test Item Value Reference Range Interpretation Comments MCH (test code = MCH) 28.0 pg 27.0-31.0 [facility] HospitalBblsmncMNFDZELRII1967-61-78 19:08:56 Test Item Value Reference Range Interpretation Comments MCV (test code = MCV) 87.9 80.0-98.0 [facility] HospitalGisfcliCTCWJSADFK2320-75-36 19:08:56 Test Item Value Reference Range Interpretation Comments MPV (test code = MPV) 9.1 7.4-10.4 [facility] HospitalIzjgzvyXYXMDLPMRF6719-53-51 19:08:56 Test Item Value Reference Range Interpretation Comments Platelet (test code = Platelet) 140 133-450 [facility] HospitalOdnbxvfGTPNQTILBI6697-58-97 19:08:56 Test Item Value Reference Range Interpretation Comments Eosinophils # (test code 0.1 See_Comment [A utomated message] The = Eosinophils #) system whic h generated this result tra nsmitted reference range : <=0.5. The reference r eileen was not used to int erpret this result as normal/abnormal . [facility] HospitalJnrnvneVGEHDOSTEB8111-97-79 19:08:56 Test Item Value Reference Range Interpretation Comments Monocytes # (test code 0.6 See_Comment [Aut omated message] The = Monocytes #) system which generated this result tra nsmitted reference range : <=0.8. The reference r eileen was not used to int erpret this result as normal/abnormal . [facility] HospitalOejfocoCYPWEKIKLJ3659-92-24 19:08:56 Test Item Value Reference Range Interpretation Comments Lymphocytes # (test code = Lymphocytes 0.9 1.0-5.5 #) [facility] HospitalJuychmgPJSUHZZIHY7499-13-31 19:08:56 Test Item Value Reference Range Interpretation Comments Lymphocytes (test code = Lymphocytes) 19.1 20.0-40.0 [facility] HospitalRezzhyqFPBXRHMYEE7528-41-94 19:08:56 Test Item Value Reference Range Interpretation Comments Segs (test code = Segs) 65.9 45.0-75.0 [facility] HospitalRvnffjsYGCHHCJVIH6744-86-08 19:08:56 Test Item Value Reference Range Interpretation Comments Eosinophils (test code = 2.3 See_Comment [A utomated message] The Eosinophils) system which ge nerated this result tra nsmitted reference range : <=4.0. The reference r eileen was not used to int erpret this result as normal/abnormal . [facility] HospitalLaviqgwEPEGIBGMCL2252-48-06 19:08:56 Test Item Value Reference Range Interpretation Comments Monocytes (test code = Monocytes) 12.1 2.0-12.0 [facility] HospitalZcfrfazJMUZHBIWCP1430-26-14 19:08:56 Test Item Value Reference Range Interpretation Comments Neutrophils # (test code = Neutrophils 3.1 1.5-8.1 #) [facility] HospitalOdmrndmSONYPIRNAX0958-58-01 19:08:56 Test Item Value Reference Range Interpretation [...] (test code = Glucose Lvl) 131 70-99 [facility] HospitalRolqglqXELTPTAKZG9908-60-65 19:08:56 Test Item Value Reference Range Interpretation Comments Hct (test code = Hct) 26.2 36.0-48.0 [facility] HospitalLpaicaoEYIAZGKBEI9945-57-47 19:08:56 Test Item Value Reference Range Interpretation Comments Hgb (test code = Hgb) 8.3 12.0-16.0 [facility] HospitalZksscwdYUEEAJMHMW2710-38-33 19:08:56 Test Item Value Reference Range Interpretation Comments RBC (test code = RBC) 2.98 4.20-5.40 [facility] HospitalVkhtxxkPDIYWVMRIE2521-61-47 19:08:56 Test Item Value Reference Range Interpretation Comments WBC (test code = WBC) 4.6 3.7-10.4 [facility] HospitalOurdmohYYKSCGUCXM3456-24-18 19:08:56 Test Item Value Reference Range Interpretation Comments RDW (test code = RDW) 16.7 11.5-14.5 [facility] HospitalCcdzdzgDMUSIBNXUW6035-42-99 19:08:56 Test Item Value Reference Range Interpretation Comments MCHC (test code = MCHC) 31.8 32.0-36.0 [facility] HospitalDfxklvgPWSABFQWMX4721-28-49 19:08:56 Test Item Value Reference Range Interpretation Comments MCH (test code = MCH) 28.0 pg 27.0-31.0 [facility] HospitalGcniaxzSVBRDKUFZL6736-51-44 19:08:56 Test Item Value Reference Range Interpretation Comments MCV (test code = MCV) 87.9 80.0-98.0 [facility] HospitalScqvxugASIQYYYZPB8965-46-54 19:08:56 Test Item Value Reference Range Interpretation Comments MPV (test code = MPV) 9.1 7.4-10.4 [facility] HospitalMzzdoibEWKZAWLJMB7579-04-87 19:08:56 Test Item Value Reference Range Interpretation Comments Platelet (test code = Platelet) 140 133-450 [facility] HospitalTocadshROFXWEHEJL2528-49-91 19:08:56 Test Item Value Reference Range Interpretation Comments Eosinophils # (test code 0.1 See_Comment [A utomated message] The = Eosinophils #) system whic h generated this result tra nsmitted reference range : <=0.5. The reference r eileen was not used to int erpret this result as normal/abnormal . [facility] HospitalOfmfjnqBDEFVXEFIG0011-82-80 19:08:56 Test Item Value Reference Range Interpretation Comments Monocytes # (test code 0.6 See_Comment [Aut omated message] The = Monocytes #) system which generated this result tra nsmitted reference range : <=0.8. The reference r eileen was not used to int erpret this result as normal/abnormal . [facility] HospitalAzvtzzwKKPSGDORQL7575-32-99 19:08:56 Test Item Value Reference Range Interpretation Comments Lymphocytes # (test code = Lymphocytes 0.9 1.0-5.5 #) [facility] HospitalRivmsqeGGYGFPNNUX8693-37-82 19:08:56 Test Item Value Reference Range Interpretation Comments Lymphocytes (test code = Lymphocytes) 19.1 20.0-40.0 [facility] HospitalImkkibfJVORGYMZOY7303-71-06 19:08:56 Test Item Value Reference Range Interpretation Comments Segs (test code = Segs) 65.9 45.0-75.0 [facility] HospitalXqbycqnJUVGPCTQYT0369-98-79 19:08:56 Test Item Value Reference Range Interpretation Comments Eosinophils (test code = 2.3 See_Comment [A utomated message] The Eosinophils) system which ge nerated this result tra nsmitted reference range : <=4.0. The reference r eileen was not used to int erpret this result as normal/abnormal . [facility] HospitalHcufpjoMYLWJOOCBY8980-46-17 19:08:56 Test Item Value Reference Range Interpretation Comments Monocytes (test code = Monocytes) 12.1 2.0-12.0 [facility] HospitalWwflznrTLZPWTZVJB3285-83-34 19:08:56 Test Item Value Reference Range Interpretation Comments Neutrophils # (test code = Neutrophils 3.1 1.5-8.1 #) [facility] HospitalRwnbdqiXZPOHAHOAZ6039-96-79 19:08:56 Test Item Value Reference Range Interpretation [...] CO2 (test code = CO2) 23 24-32 [place] 642259-07-26 19:08:56 Test Item Value Reference Range Interpretation [...] (test code = Glucose Lvl) 131 70-99 [facility] HospitalDvxikssBSJUBWSRAL8607-45-50 19:08:56 Test Item Value Reference Range Interpretation Comments Hct (test code = Hct) 26.2 36.0-48.0 [facility] HospitalVhnhbqkIGMECTEFQC5200-05-70 19:08:56 Test Item Value Reference Range Interpretation Comments Hgb (test code = Hgb) 8.3 12.0-16.0 [place] 312029-07-26 19:08:56 Test Item Value Reference Range Interpretation Comments RBC (test code = RBC) 2.98 4.20-5.40 [facility] HospitalCmtumhtYWBWLPVTSC0980-54-81 19:08:56 Test Item Value Reference Range Interpretation Comments WBC (test code = WBC) 4.6 3.7-10.4 [facility] HospitalMgujhkpMWWIHUMEPY7443-24-18 19:08:56 Test Item Value Reference Range Interpretation Comments RDW (test code = RDW) 16.7 11.5-14.5 [facility] HospitalAantifoYTESXOTNUZ1666-94-91 19:08:56 Test Item Value Reference Range Interpretation Comments MCHC (test code = MCHC) 31.8 32.0-36.0 [facility] HospitalJwqgxseGQADSSXQZN4658-35-43 19:08:56 Test Item Value Reference Range Interpretation Comments MCH (test code = MCH) 28.0 pg 27.0-31.0 [facility] HospitalGyfguuvWUEMPFPBEP8166-97-31 19:08:56 Test Item Value Reference Range Interpretation Comments MCV (test code = MCV) 87.9 80.0-98.0 [facility] HospitalTckcufrGGVIVPJKQO6366-43-49 19:08:56 Test Item Value Reference Range Interpretation Comments MPV (test code = MPV) 9.1 7.4-10.4 [facility] HospitalVzsfuqmLVBGZVPLGQ3751-92-56 19:08:56 Test Item Value Reference Range Interpretation Comments Platelet (test code = Platelet) 140 133-450 [facility] HospitalFjixdxoMZUNSRFVXA6470-95-85 19:08:56 Test Item Value Reference Range Interpretation Comments Eosinophils # (test code = Eosinophils 0.1 <=0.5 #) [facility] HospitalZwsbqbtEZKIOOEIRV1655-17-54 19:08:56 Test Item Value Reference Range Interpretation Comments Monocytes # (test code = Monocytes #) 0.6 <=0.8 [facility] HospitalGhgxpyxGROUNJKWRL0751-62-92 19:08:56 Test Item Value Reference Range Interpretation Comments Lymphocytes # (test code = Lymphocytes 0.9 1.0-5.5 #) [facility] HospitalWuamaxtYSUGDDHRFA6150-06-15 19:08:56 Test Item Value Reference Range Interpretation Comments Lymphocytes (test code = Lymphocytes) 19.1 20.0-40.0 [facility] HospitalYofwwqlLLTSAPNSTX2062-93-47 19:08:56 Test Item Value Reference Range Interpretation Comments Segs (test code = Segs) 65.9 45.0-75.0 [facility] HospitalCrlyojuDZMSYJOXKL5622-32-17 19:08:56 Test Item Value Reference Range Interpretation Comments Eosinophils (test code = Eosinophils) 2.3 <=4.0 [facility] HospitalWlevfgsHVECNOHDOS2384-24-35 19:08:56 Test Item Value Reference Range Interpretation Comments Monocytes (test code = Monocytes) 12.1 2.0-12.0 [facility] HospitalXtsakclGKSEJBJJVZ9136-48-57 19:08:56 Test Item Value Reference Range Interpretation Comments Neutrophils # (test code = Neutrophils 3.1 1.5-8.1 #) [facility] HospitalKeopxofYMVBANGBOC0820-70-13 19:08:56 Test Item Value Reference Range Interpretation Comments Basophils (test code = Basophils) 0.6 <=1.0 [facility]2019-07-26 19:08:56 Test Item [...] (test code = Glucose Lvl) 131 70-99 [facility] HospitalTqjabjlEEHUBCJXKQ4049-87-88 19:08:56 Test Item Value Reference Range Interpretation Comments Hct (test code = Hct) 26.2 36.0-48.0 [facility] HospitalGcecxzzLANBREJWLR0951-32-84 19:08:56 Test Item Value Reference Range Interpretation Comments Hgb (test code = Hgb) 8.3 12.0-16.0 [facility] HospitalWrafahdAGOSMLOUPV8246-51-74 19:08:56 Test Item Value Reference Range Interpretation Comments RBC (test code = RBC) 2.98 4.20-5.40 [facility] HospitalPwafwsqIUCLLPLHET6776-53-39 19:08:56 Test Item Value Reference Range Interpretation Comments WBC (test code = WBC) 4.6 3.7-10.4 [facility] HospitalEupmoifXCTFSWXJML6029-01-48 19:08:56 Test Item Value Reference Range Interpretation Comments RDW (test code = RDW) 16.7 11.5-14.5 [facility] HospitalVtkbsgkFHULKSVTXO9218-26-18 19:08:56 Test Item Value Reference Range Interpretation Comments MCHC (test code = MCHC) 31.8 32.0-36.0 [facility] HospitalAnapwdnDAHRLXQWMO2551-05-44 19:08:56 Test Item Value Reference Range Interpretation Comments MCH (test code = MCH) 28.0 pg 27.0-31.0 [facility] HospitalDvltcfhUOZPVFAAGC4639-10-06 19:08:56 Test Item Value Reference Range Interpretation Comments MCV (test code = MCV) 87.9 80.0-98.0 [facility] HospitalQmfitkbVXTSYTIHRF5424-77-30 19:08:56 Test Item Value Reference Range Interpretation Comments MPV (test code = MPV) 9.1 7.4-10.4 [facility] HospitalYftrfbtTHBDQVCGJR8099-13-62 19:08:56 Test Item Value Reference Range Interpretation Comments Platelet (test code = Platelet) 140 133-450 [facility] HospitalLrpspbqFTXPJTHPSU1985-50-58 19:08:56 Test Item Value Reference Range Interpretation Comments Eosinophils # (test code = Eosinophils 0.1 <=0.5 #) [facility] HospitalWbztxblVZPJJYDOBW8023-76-14 19:08:56 Test Item Value Reference Range Interpretation Comments Monocytes # (test code = Monocytes #) 0.6 <=0.8 [facility] HospitalVqhywbyAGTRVVWAIF0673-20-15 19:08:56 Test Item Value Reference Range Interpretation Comments Lymphocytes # (test code = Lymphocytes 0.9 1.0-5.5 #) [facility] HospitalLqcvdjkVEFKZCRITV8134-33-69 19:08:56 Test Item Value Reference Range Interpretation Comments Lymphocytes (test code = Lymphocytes) 19.1 20.0-40.0 [facility] HospitalAzupyzrVAZGFNLQHJ8815-14-51 19:08:56 Test Item Value Reference Range Interpretation Comments Segs (test code = Segs) 65.9 45.0-75.0 [facility] HospitalEqnzulnYMGUZZLZAC2765-69-23 19:08:56 Test Item Value Reference Range Interpretation Comments Eosinophils (test code = Eosinophils) 2.3 <=4.0 [facility] HospitalHwiapptFSKFZMUQLJ5240-41-98 19:08:56 Test Item Value Reference Range Interpretation Comments Monocytes (test code = Monocytes) 12.1 2.0-12.0 [facility] HospitalMgesmorTIWEEQNOSD8408-37-83 19:08:56 Test Item Value Reference Range Interpretation Comments Neutrophils # (test code = Neutrophils 3.1 1.5-8.1 #) [facility] HospitalGkhqxofDONRFQVBIN1619-92-41 19:08:56 Test Item Value Reference Range Interpretation Comments Basophils (test code = Basophils) 0.6 <=1.0 [facility] EGUXKLD3447-10-72 14:35:00 Test Item Value Reference Range Interpretation Comments Antibody Scrn (test Negative (01/16/19 9:35 code = Antibody Scrn) AM) [facility] RZCIEEI0670-78-59 14:35:00 Test Item Value Reference Range Interpretation Comments ABO/Rh (test code = ABO/Rh) B POS [facility] HospitalSmtnbodSTHAXDNKJY2463-78-11 14:35:00 Test Item Value Reference Range Interpretation Comments PT (test code = PT) 14.1 s 12.0-14.7 [facility] HospitalSujxdviCSGUYKZFLA2560-34-32 14:35:00 Test Item Value Reference Range Interpretation Comments INR (test code = INR) 1.11 1 0.85-1.17 [facility] HospitalRanipxlXENKYMVZLX0230-14-65 14:35:00 Test Item Value Reference Range Interpretation Comments PTT (test code = PTT) 28.3 s 22.9-35.8 [facility] TTQVMAY4996-01-58 14:35:00 Test Item Value Reference Range Interpretation Comments Antibody Scrn (test Negative (01/16/19 9:35 code = Antibody Scrn) AM) [facility] HZTSVDH3837-04-98 14:35:00 Test Item Value Reference Range Interpretation Comments ABO/Rh (test code = ABO/Rh) B POS [facility] HospitalQamzgenJUPZTTWMIF6536-69-77 14:35:00 Test Item Value Reference Range Interpretation Comments PT (test code = PT) 14.1 s 12.0-14.7 [facility] HospitalLvlemcyOZPNBRDCVF7691-14-15 14:35:00 Test Item Value Reference Range Interpretation Comments INR (test code = INR) 1.11 1 0.85-1.17 [facility] HospitalTfobzkzRZOTOVCJPU6915-46-66 14:35:00 Test Item Value Reference Range Interpretation Comments PTT (test code = PTT) 28.3 s 22.9-35.8 [facility] NTHUYLT2583-26-57 14:35:00 Test Item Value Reference Range Interpretation Comments Antibody Scrn (test Negative (01/16/19 9:35 code = Antibody Scrn) AM) [facility] WZPOMQZ1337-80-05 14:35:00 Test Item Value Reference Range Interpretation Comments ABO/Rh (test code = ABO/Rh) B POS [facility] HospitalAgproekKXKWGGMDDL3972-53-81 14:35:00 Test Item Value Reference Range Interpretation Comments PT (test code = PT) 14.1 s 12.0-14.7 [facility] HospitalAhesfghAVDXAUYTFI1622-17-85 14:35:00 Test Item Value Reference Range Interpretation Comments INR (test code = INR) 1.11 1 0.85-1.17 [facility] HospitalLxuntxvSSXYGFIEGR2834-35-21 14:35:00 Test Item Value Reference Range Interpretation Comments PTT (test code = PTT) 28.3 s 22.9-35.8 [facility] ISKNHGH1056-23-11 14:35:00 Test Item Value Reference Range Interpretation Comments Antibody Scrn (test Negative (01/16/19 9:35 code = Antibody Scrn) AM) [facility] XFTHRYF1368-70-74 14:35:00 Test Item Value Reference Range Interpretation Comments ABO/Rh (test code = ABO/Rh) B [facility]2019-07-26 14:35:00 Test Item Value Reference Range Interpretation Comments PT (test code = PT) 14.1 s 12.0-14.7 [facility] HospitalJrtjdktGZGQDAIJXQ3578-04-29 14:35:00 Test Item Value Reference Range Interpretation Comments INR (test code = INR) 1.11 1 0.85-1.17 [facility] HospitalZjtgkktHBGDYGOJEJ6702-59-60 14:35:00 Test Item Value Reference Range Interpretation Comments PTT (test code = PTT) 28.3 s 22.9-35.8 [facility] OYWPANX1720-13-01 14:35:00 Test Item Value Reference Range Interpretation Comments Antibody Scrn (test Negative (01/16/19 9:35 code = Antibody Scrn) AM) [facility] JULEBMT6004-62-16 14:35:00 Test Item Value Reference Range Interpretation Comments ABO/Rh (test code = ABO/Rh) B [facility]2019-07-26 14:35:00 Test Item Value Reference Range Interpretation Comments PT (test code = PT) 14.1 s 12.0-14.7 [facility] HospitalPllfywlKDFWREKCCB8971-03-31 14:35:00 Test Item Value Reference Range Interpretation Comments INR (test code = INR) 1.11 1 0.85-1.17 [facility] HospitalVlhcfpfLXHRVIRWUO7008-43-29 14:35:00 Test Item Value Reference Range Interpretation Comments PTT (test code = PTT) 28.3 s 22.9-35.8 [facility] GZSKTYF4931-85-82 14:35:00 Test Item Value Reference Range Interpretation Comments Antibody Scrn (test Negative (01/16/19 9:35 code = Antibody Scrn) AM) [facility] NCMFHCO0207-86-45 14:35:00 Test Item Value Reference Range Interpretation Comments ABO/Rh (test code = ABO/Rh) B [facility]2019-07-26 14:35:00 Test Item Value Reference Range Interpretation Comments PT (test code = PT) 14.1 s 12.0-14.7 [facility] HospitalEaeublnQTCURGQDKS4771-77-60 14:35:00 Test Item Value Reference Range Interpretation Comments INR (test code = INR) 1.11 1 0.85-1.17 [facility] HospitalOyrjrruJIEXWCITLV3024-02-98 14:35:00 Test Item Value Reference Range Interpretation Comments PTT (test code = PTT) 28.3 s 22.9-35.8 [facility] RPMMNON5260-22-28 14:35:00 Test Item Value Reference Range Interpretation Comments Antibody Scrn (test Negative (01/16/19 9:35 code = Antibody Scrn) AM) [facility] FWWGOTN5628-94-51 14:35:00 Test Item Value Reference Range Interpretation Comments ABO/Rh (test code = ABO/Rh) B POS [facility] HospitalFwamtooWZWAHNMJEJ4492-73-94 14:35:00 Test Item Value Reference Range Interpretation Comments PT (test code = PT) 14.1 s 12.0-14.7 [facility] HospitalZforyqaIPBAXOZFBJ0391-29-04 14:35:00 Test Item Value Reference Range Interpretation Comments INR (test code = INR) 1.11 1 0.85-1.17 [facility] HospitalQaxlrtfOLJNEDDFII9539-55-30 14:35:00 Test Item Value Reference Range Interpretation Comments PTT (test code = PTT) 28.3 s 22.9-35.8 [facility]
[2023-04-28] MEDS ORDERED: HYDROCODONE/APAP 5/325 MG TAB ONE (15:00)
--- NOTE | 2023-04-28 15:40 | RAD REPORT ---
EXAM DESCRIPTION: RAD - Foot Right 3 View - 04/28/2023 3:13 pm CLINICAL HISTORY: injury 1st toe;Pain COMPARISON: No comparisons TECHNIQUE: Right foot, 3 views. FINDINGS: No fracture, dislocation or periosteal reaction. Soft tissue swelling and irregularity along the nail bed of the first digit. No air or foreign body in the soft tissues. Vascular calcifications. Small calcaneal spur. Enthesopathy at the Achilles tendon attachment. IMPRESSION: Soft tissue swelling as above. No acute osseus abnormality.
--- NOTE | 2023-04-28 17:12 | ER ---
Nurse's Notes [facility] Name: Alma Rosa Corral Age: 67 yrs Sex: Female : 1955 Arrival Date: 04/28/2023 Time: 14:02 Bed 19 Private MD: Diagnosis: Contusion of great toe with damage to nail Presentation: 04/28 14:17 Chief complaint: Patient states: Left toe pain onset 4 days ago. Family member states cm10 that he stepped on her toe 4 days ago and patient's toe is now infected. Coronavirus screen: Vaccine status: Patient reports receiving the 2nd dose of the covid vaccine. Client denies travel out of the [place] in the last 14 days. Ebola Screen: Patient denies travel to an Ebola-affected area in the 21 days before illness onset. No symptoms or risks identified at this time. Initial Sepsis Screen: Does the patient meet any 2 criteria? No. Patient's initial sepsis screen is negative. Does the patient have a suspected source of infection? No. Patient's initial sepsis screen is negative. Risk Assessment: Do you want to hurt yourself or someone else? Patient reports no desire to harm self or others. Onset of symptoms was April 28, 2023. 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 - Social history:: Smoking status: Patient denies any tobacco usage or history of. - Family history:: not pertinent. - Hospitalizations: : No recent hospitalization is reported. Screenin:34 [facility] ED Fall Risk Assessment (Adult) History of falling in the last 3 months, db including since admission No falls in past 3 months (0 pts) Confusion or Disorientation No (0 pts) Intoxicated or Sedated No (0 pts) Impaired Gait Yes (1 pt) Mobility Assist Device Used Yes (1 pt) Altered Elimination No (0 pt) Score/Fall Risk Level 0 - 2 = Low Risk Oriented to surroundings, Maintained a safe environment. Abuse screen: Denies threats or abuse. Denies injuries from another. Nutritional screening: No deficits noted. Tuberculosis screening: No symptoms or risk factors identified. Assessment: 14:30 Reassessment: Patient appears in no apparent distress at this time. Patient and/or db family updated on plan of care and expected duration. Pain level reassessed. Patient is alert, oriented x 3, equal unlabored respirations, skin warm/dry/pink. LEFT BIG TOE PAIN AND STATES ACCIDENTALLY STEPPED ON IT. PT NON AMBULATORY. DIALYSIS PATIENT. General: Appears in no apparent distress. comfortable, Behavior is calm, cooperative. Pain: Complains of pain in left foot. Neuro: Level of Consciousness is awake, alert, obeys commands, Oriented to person, place, time, situation. Respiratory: Airway is patent Respiratory effort is even, unlabored, Respiratory pattern is regular, symmetrical. 15:00 Reassessment: Patient appears in no apparent distress at this time. Patient and/or db family updated on plan of care and expected duration. Pain level reassessed. Patient is alert, oriented x 3, equal unlabored respirations, skin warm/dry/pink. 16:00 Reassessment: Patient appears in no apparent distress at this time. Patient and/or db family updated on plan of care and expected duration. Pain level reassessed. Patient is alert, oriented x 3, equal unlabored respirations, skin warm/dry/pink. 17:15 Reassessment: Patient appears in no apparent distress at this time. Patient and/or db family updated on plan of care and expected duration. Pain level reassessed. Patient is alert, oriented x 3, equal unlabored respirations, skin warm/dry/pink. Vital Signs: 14:17 BP 103 / 67; Pulse 58; Resp 17 S; Temp 97.9(TE); Pulse Ox 100% on R/A; Weight 61.96 kg; cm10 Height 5 ft. 3 in. ; 15:00 BP 100 / 45; Pulse 60; Resp 18; Pulse Ox 100% on R/A; db 16:00 BP 100 / 62; Pulse 55; Resp 18; Pulse Ox 100% on R/A; db 17:00 BP 114 / 58; Pulse 53; Resp 16; Pulse Ox 96% on R/A; db 14:17 Body Mass Index 24.20 (61.96 kg, 160.02 cm) cm10 ED Course: 14:03 Patient arrived in ED. rg4 14:20 Triage completed. cm10 14:21 Arm band placed on Patient placed in an exam room, on a stretcher. cm10 14:22 Gallito Prado MD is Attending Physician. rn 14:31 Asuncion Rosado, RN is Primary Nurse. db 15:15 XRAY Foot RIGHT 3 View In Process Unspecified. EDMS 17:35 Patient has correct armband on for positive identification. Bed in low position. Call db light in reach. Side rails up X 1. Provided Education on: DISCHARGE. Pulse ox on. NIBP on. Warm blanket given. 17:35 No provider procedures requiring assistance completed. Patient did not have IV access db during this emergency room visit. Administered Medications: 14:51 Drug: HYDROcodone-acetaminophen PO 5 mg-325 mg 1 tabs PO once Route: PO; db 17:36 Follow up: Response: No adverse reaction db Medication: 17:35 VIS not applicable for this client. db Outcome: 17:11 Discharge ordered by MD. rn 17:35 Discharged to home via wheelchair, with family, db 17:35 Condition: stable 17:35 Discharge instructions given to patient, family, Instructed on discharge instructions, follow up and referral plans. 17:36 Patient left the ED. db Signatures: Dispatcher [employer] EDVT Gallito Prado MD MD rn Garcia, Rubi rg4 Asuncion Rosado, RN RN Isa Burnham RN RN cm10
--- NOTE | 2023-04-28 17:12 | EDPHYS ---
Physician Documentation [facility] Name: Alma Rosa Corral Age: 67 yrs Sex: Female : 1955 Arrival Date: 04/28/2023 Time: 14:02 Bed 19 Private MD: ED Physician Gallito Prado HPI: 04/28 17:06 This 67 yrs old Black Female presents to ER via Wheelchair with complaints of Toe Pain. rn 17:06 The patient presents with an injury, pain. The complaints affect the right foot. rn 17:06 Onset: The symptoms/episode began/occurred 4 day(s) ago. Modifying factors: The rn symptoms are alleviated by nothing, the symptoms are aggravated by weight bearing. Severity of symptoms: At their worst the symptoms were moderate, in the emergency department the symptoms are unchanged. The patient has not experienced similar symptoms in the past. 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 Improves with soaking. Some damage to the nail but did not come off. brought her in to make sure is not starting to get infected due to the pain.. 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 - Social history:: Smoking status: Patient denies any tobacco usage or history of. - Family history:: not pertinent. - Hospitalizations: : No recent hospitalization is reported. ROS: 17:06 MS/Extremity: Injury and pain to right great toe rn Exam: 17:06 Constitutional: This is a well developed, well nourished patient who is awake, alert, rn and in no acute distress. MS/ Extremity: Pulses equal, no cyanosis. Tenderness to right great toe with distal partial elevation of toenail, still attached at the base, difficult to appreciate if subungual hematoma due to nail khmer, no active bleeding, no warmth, no redness Vital Signs: 14:17 BP 103 / 67; Pulse 58; Resp 17 S; Temp 97.9(TE); Pulse Ox 100% on R/A; Weight 61.96 kg; cm10 Height 5 ft. 3 in. ; 15:00 BP 100 / 45; Pulse 60; Resp 18; Pulse Ox 100% on R/A; db 16:00 BP 100 / 62; Pulse 55; Resp 18; Pulse Ox 100% on R/A; db 17:00 BP 114 / 58; Pulse 53; Resp 16; Pulse Ox 96% on R/A; db 14:17 Body Mass Index 24.20 (61.96 kg, 160.02 cm) cm10 MDM: 14:22 Patient medically screened. rn 17:06 Differential diagnosis: fracture, sprain. Differential diagnosis: cellulitis. Data rn reviewed: vital signs, nurses notes. Data reviewed: radiologic studies, plain films, and as a result, I will discharge patient. Counseling: I had a detailed discussion with the patient and/or guardian regarding the historical points, exam findings, and any diagnostic results supporting the discharge/admit diagnosis, radiology results, the need for outpatient follow up, to return to the emergency department if symptoms worsen or persist or if there are any questions or concerns that arise at home. Response to treatment: the patient's symptoms have mildly improved after treatment, and as a result, I will discharge patient. ED course: X-ray negative for fracture. Has been asked about removal of nail, told him still mainly attached and given happened 4 days ago I do not think we would be able to drain any sort of hematoma that is now coagulated. I told him may make situation worse. Patient already has hydrocodone at home. Recommend soaking and offered antibiotics.. 04/28 14:28 Order name: GROVER Foot RIGHT 3 View; Complete Time: 15:47 rn Administered Medications: 14:51 Drug: HYDROcodone-acetaminophen PO 5 mg-325 mg 1 tabs PO once Route: PO; db 17:36 Follow up: Response: No adverse reaction db Disposition Summary: 04/28/23 17:11 Discharge Ordered Notes: Location: Home rn Problem: new rn Symptoms: have improved rn Condition: Stable rn Diagnosis - Contusion of great toe with damage to nail rn Followup: rn - With: Private Physician - When: As needed - Reason: Recheck today's complaints, Re-evaluation by your physician Discharge Instructions: - Discharge Summary Sheet rn - Contusion rn Forms: - Medication Reconciliation Form rn - Thank You Letter rn - Antibiotic rn tele - Prescription Opioid Use rn - Patient Portal Instructions rn - Leadership Thank You Letter rn Signatures: Dispatcher [employer] EDMS Prado, Gallito, MD MD rn Rosado, Asuncion, RN RN db Piero, Isa, RN RN [facility]
[2023-04-28 17:43] VITALS: TEMP 97.9
[2023-04-28 17:46] VITALS: BP 114/58; O2SAT 96
== END 2023-04-28 17:36 | disposition home or self-care (01) ==
LOC: ER 14:02
DX: S90.211A Contusion of right great toe with damage to nail, initial encounter (principal); Z88.8 Allergy status to other drugs, medicaments and biological substances
CPT/HCPCS: 99283

== ENCOUNTER 2024-02-19 15:13 | Inpatient (IN) | payer OTHER ==
[2024-02-19 16:30] LABS: Albumin 1.9 g/dL (3.4-5.0); Albumin/Globulin Ratio 0.5 (1.1-1.8); Bilirubin Total 0.4 mg/dL (0.2-1.0); Globulin 3.7 g/dL (2.3-3.5); Protein, Total 5.6 g/dL (6.4-8.2)
[2024-02-19 16:39] LABS: Absolute Eosinophils 0.1 K/uL (0-0.5); Absolute Lymphocytes (CBC) 0.7 K/uL (0.7-4.9); Absolute Monocytes 1.4 K/uL (0.1-1.3); Absolute Neutrophil 12.5 K/uL (1.8-8.0); Basophils % 0.2 % (0-1.3); Eosinophils % 0.4 % (0-4.4); Hematocrit 21.3 % (36.0-45.0); Hemoglobin 6.6 g/dL (12.0-15.0); Lymphocytes % 4.5 % (15.3-44.8); MCH 25.7 pg (27.0-35.0); MCHC 30.9 g/dL (32.0-36.0); MCV 83.1 fL (80-100); MPV 7.7 fL (7.6-11.3); Monocytes % 9.5 % (3.3-12.3); Neutrophils % 85.4 % (41.7-73.7); Nucleated Red Blood Cells % 0.3 % (0-0); Platelets 279 thou/uL (152-406); RBC Red Blood Cell Count 2.56 M/uL (3.86-4.86)
--- NOTE | 2024-02-19 16:51 | RAD REPORT ---
EXAM DESCRIPTION: CT - Abdomen Angio - 02/19/2024 4:29 pm CLINICAL HISTORY: Chest pain radiating to the back. rectal bleeding COMPARISON: Abdomen Pelvis Wo Contrast dated 07/29/2020 TECHNIQUE: CT angiography of the aorta was performed with MIPs. All CT scans are performed using dose optimization technique as appropriate and may include automated exposure control or mA/KV adjustment according to patient size. FINDINGS: CT angiography was performed of the abdominal aorta. Moderate atherosclerotic vascular disease is pre sent distal abdominal aorta and iliac vessels. In the major visceral arteries are patent. Right verte bral artery is diminutive. Slight ostial plaquing is seen at the origin of both renal arteries. There is no occlusion evident. Numerous small low-density hepatic lesions are present, nonspecific. Solid and cystic appearing mass with calcification posterior aspect of the left kidney 6.1 x 5.1 cm h as moderately increased in size since 07/29/2020.This is worrisome for neoplasia. No bowel obstruction, free fluid or free air seen. Right labial cystic lesion measuring 25 mm. IMPRESSION: No significant flow abnormality is detected. 

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
--- NOTE | 2024-02-19 17:29 | EDPHYS ---
Physician Documentation [facility] Name: Alma Rosa Corral Age: 68 yrs Sex: Female : 1955 Arrival Date: 02/19/2024 Time: 15:13 Bed 20 Private MD: ED Physician Neftali Rooney HPI: 02/18 18:58 This 68 yrs old Black Female presents to ER via EMS with complaints of Bloody Stools. ms3 18:58 68-year-old female past medical history of CVA, dysphagia, hypertension, thyroid ms3 problems presents to the emergency department for rectal bleeding. Patient states she was dizzy earlier in the day. Patient denies pain. Patient states she may be on Eliquis and is unsure. 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 - Infectious Disease History:: Denies. - Social history:: Smoking status: Patient denies any tobacco usage or history of. ROS: 18:58 Constitutional: Negative for fever, and chills. Cardiovascular: Negative for chest ms3 pain, and palpitations. Respiratory: Negative for shortness of breath, cough, wheezing, and pleuritic chest pain, MS/Extremity: Negative for injury and deformity, Skin: Negative for injury, rash, and discoloration, 18:58 Abdomen/GI: Positive for rectal bleeding, Exam: 18:58 Constitutional: This is a well developed, well nourished patient who is awake, alert, ms3 and in no acute distress. Chest/axilla: Normal chest wall appearance and motion. Nontender with no deformity. Cardiovascular: Regular rate and rhythm with a normal S1 and S2. No gallops, murmurs, or rubs. Normal PMI, no JVD. No pulse deficits. Respiratory: Lungs have equal breath sounds bilaterally, clear to auscultation and percussion. No rales, rhonchi or wheezes noted. No increased work of breathing, no retractions or nasal flaring. Skin: Warm, dry with normal turgor. Normal color with no rashes, no lesions, and no evidence of cellulitis. 18:58 : Rectal exam: Rectal tone: normal, Stool: maroon, Vital Signs: 15:23 BP 132 / 92; Pulse 91; Resp 18 S; Temp 97.8(O); Pulse Ox 98% on R/A; Weight 54.43 kg kc6 (R); Height 5 ft. 3 in. (R); Pain 0/10; 16:45 BP 149 / 70; Pulse 99; Resp 20 S; Pulse Ox 99% on R/A; kc6 21:00 BP 155 / 86; Pulse 102; Resp 18; Temp 98.6; Pulse Ox 100% ; cp4 15:23 Body Mass Index 21.26 (54.43 kg, 160.02 cm) kc6 15:23 Pain Scale: Adult kc6 MDM: 15:18 Patient medically screened. ms3 18:58 Differential diagnosis: diverticulitis, gastritis, GI Bleed. Data reviewed: vital ms3 signs, nurses notes, lab test result(s), radiologic studies, and as a result, I will admit patient. Consideration of Admission/Observation Patient was admitted/placed on observation. Management of patient was discussed with the following: Hospitalist: Dr Gonzales. Management of patient was discussed with the following: Digital Media Intern: Dr Pepper- Will consult on patient.. I considered the following discharge prescriptions or medication management in the emergency department Medications were administered in the Emergency Department. See MAR. Historians other than the Patient: EMS: . Counseling: I had a detailed discussion with the patient and/or guardian regarding the historical points, exam findings, and any diagnostic results supporting the discharge/admit diagnosis, lab results, radiology results, the need for further work-up and treatment in the hospital. ED course: Discussed necessity for admission with patient and her family. They understand agree with plan. All questions were answered.. 02/18 15:19 Order name: CBC with Diff; Complete Time: 17:00 ms3 02/18 15:19 Order name: CMP; Complete Time: 17:00 ms3 02/18 15:20 Order name: Type And Screen ms3 02/18 17:05 Order name: Bb Add On bd 02/18 17:11 Order name: Packed RBC Leukored EDMS 02/18 17:38 Order name: PT-INR ms3 02/18 19:34 Order name: CBC with Automated Diff EDMS 02/18 19:34 Order name: CBC with Automated Diff EDMS 02/18 19:34 Order name: Comprehensive Metabolic Panel EDMS 02/18 19:34 Order name: Comprehensive Metabolic Panel EDMS 02/18 19:34 Order name: Hemoglobin EDMS 02/18 19:34 Order name: Hemoglobin EDMS 02/18 19:34 Order name: Hemoglobin EDMS 02/18 19:34 Order name: Hemoglobin EDMS 02/18 19:34 Order name: Troponin High Sensitivity EDMS 02/18 19:34 Order name: Troponin High Sensitivity EDMS 02/19 07:15 Order name: Manual Differential EDMS 02/19 11:54 Order name: Hemoglobin EDMS 02/19 11:54 Order name: Hematocrit EDMS 02/18 15:19 Order name: CT Abdomen - Angio: Abdomen and Pelvis ms3 02/18 15:47 Order name: Pelvis Angio EDMS 02/18 19:34 Order name: CONS Physician Consult EDMS 02/18 19:34 Order name: EKG Electrocardiogram EDMS 02/18 19:34 Order name: EKG Electrocardiogram EDMS 02/18 19:34 Order name: EKG Electrocardiogram EDMS 02/18 19:34 Order name: EKG Electrocardiogram EDMS 02/18 19:34 Order name: EKG Electrocardiogram EDMS 02/18 19:34 Order name: EKG Electrocardiogram EDMS 02/18 19:34 Order name: EKG Electrocardiogram EDMS 02/18 19:34 Order name: EKG Electrocardiogram EDMS 02/18 19:34 Order name: EKG Electrocardiogram EDMS 02/18 19:34 Order name: EKG Electrocardiogram EDMS 02/18 19:34 Order name: EKG Electrocardiogram EDMS 02/18 15:19 Order name: IV Saline Lock; Complete Time: 16:02 ms3 02/18 15:19 Order name: Labs collected and sent; Complete Time: 16:02 ms3 Administered Medications: No medications were administered Disposition Summary: 02/19/24 17:28 Hospitalization Ordered Notes: Hospitalization Status: Inpatient Admission ms3 Provider: Giorgi Gonzales ms3 Condition: Stable ms3 Problem: new ms3 Symptoms: are unchanged ms3 Bed/Room Type: Standard ms3 Location: [facility] ER HOLD(02/19/24 22:56) [facility] Room Assignment: ERHOLD-(02/19/24 22:56) rg5 Diagnosis - GI Bleed/ Gastrointestinal hemorrhage, unspecified ms3 - Anemia, unspecified ms3 Forms: - Medication Reconciliation Form ms3 - SBAR form ms3 - Leadership Thank You Letter ms3 Critical care time excluding procedures: 17:28 Critical care time: Bedside Care: 35 minutes, Family Intervention: 5 minutes. Total ms3 time: 40 minutes Signatures: Dispatcher [employer] EDShona Reddy RN RN Neftali Rooney DO DO ms3 Debo Munson RN RN kc6 Justin Reynolds RN RN rg5 Corrections: (The following items were deleted from the chart) 22:04 17:28 ms3 22:56 17:28 Telemetry/MedSurg (Inpatient) ms3 rg5 22:56 22:04 [facility] rg5
[2024-02-19] MEDS ORDERED: NA CHLORIDE 0.9% 250 ML ONE (17:41)
--- NOTE | 2024-02-19 19:24 | P.HP ---
Certification for Inpatient With expected LOS: >2 Midnights Patient will require the following post-hospital care: None Practitioner: I am a practitioner with admitting privileges, knowledge of patient current condition, hospital course, and medical plan of care. Services: Services provided to patient in accordance with Admission requirements found in Title 42 Section 412.3 of the Code of Federal Regulations Patient History Date of Service: 02/19/24 Reason for admission: Blood per rectum History of Present Illness: 68-year-old female with past medical history of hypertension, CVA with weakness, ESRD previously on PD but recently switched to HDTTS, history of colon cancer in 2013, status post negative screening colonoscopy in [address] Harry, recent complicated peritoneal dialysis catheter removal requiring open laparotomy after adhesions at [facility] months ago; developed bloody clots per rectum earlier today. This was noticed by the spouse who states patient has small amount of stool but had large bloody clots. Patient is not sure if she has hematuria. Patient admitted to [facility]. Spouse has brought the patient to the emergency room because of the bloody stools. They deny any abdominal pain. No nausea vomiting or hematemesis. Arrival in the ED patient was tachycardic with heart rate in the 120s, blood pressure in the 130s over 60s, afebrile, laboratory workup shows hemoglobin of 6.6, WBC of 14 but no neutrophilia, BMP was unremarkable, CT of the abdomen and pelvics shows moderately increased size of a left kidney mass compared to previous CT in 2020. This is worrisome for neoplasia. Patient states they are aware of the kidney mass but has been told that it has been stable. Patient is being admitted for symptomatic anemia with lower GI bleed. GI Dr. Bahena has been consulted by the emergency room. Allergies amlodipine [From [facility]] Allergy (Verified 01/28/19 07:27) Itching Home Medications: Atorvastatin Calcium [Lipitor] 40 mg PO BEDTIME 09/17/16 Hydralazine HCl [Apresoline] 50 mg PO TID 09/17/16 Levothyroxine [Synthroid*] 0.05 mg PO DAILY 09/17/16 Liothyronine Sodium [Cytomel] 5 mcg PO DAILY 09/17/16 allopurinoL [Allopurinol] 100 mg PO DAILY 09/17/16 paricalcitoL [Zemplar*] 1 mcg PO DAILY 09/17/16 Ferrous Gluconate [Iron] 256 mg PO DAILY 01/28/19 Apixaban [Eliquis] 2.5 mg PO BID 30 Days #60 tablet 07/29/20 Bumetanide [Bumex*] 1 mg PO DAILY tab 07/29/20 Carvedilol [Coreg] 25 mg PO BID 04/26/21 ramipriL [Altace*] 10 mg PO DAILY 04/26/21 - Past Medical/Surgical History Diabetic: No -: Hypertension -: CVA -: End-stage renal disease on PD/HD -: Hyperlipidemia -: colon cancer 2013 -: Hypothyroidism -: History of transient atrial fibrillation -: fistula placement -: PD catheter placement and recent removal -: Colon resection -: Thyroid surgery Psychosocial/ Personal History: Patient disabled, lives with - Social History Smoking Status: Never smoker Smoking therapy provided: No Patient receptive to therapy: No Alcohol use: No CD- Drugs: No Caffeine use: Yes Place of Residence: Home Review of Systems General: Weakness Gastrointestinal: Hematochezia Physical Examination - Physical Exam General: In no apparent distress, Oriented x3, Cooperative, Other (Frail middle- age female, chronically ill looking) HEENT: Atraumatic, Normocephalic Neck: Supple, 2+ carotid pulse no bruit, JVD not distended Respiratory: Clear to auscultation bilaterally, Normal air movement Cardiovascular: Regular rate/rhythm, Normal S1 S2 (Tachycardia) Gastrointestinal: Normal bowel sounds, Soft and benign, Non-distended (Healed midline laparotomy scar), No ascites, No tenderness Musculoskeletal: No swelling, No contractures (Left upper extremity AV fistula) Neurological: Normal speech, Normal strength at 5/5 x4 extr, Cranial nerves 3-12 intact - Studies Laboratory Data (last 24 hrs) 02/19/24 02/19/24 16:02 16:02 WBC 14.60 H Hgb 6.6 L Hct 21.3 L Plt Count 279 Sodium 137 Potassium 5.0 BUN 29 H Creatinine 4.14 H Glucose 131 H Total Bilirubin 0.4 AST 19 ALT 17 Alkaline Phosphatase 90 Assessment and Plan - Problems (Diagnosis) (1) Lower GI hemorrhage Current Visit: Yes Status: Acute (2) Symptomatic anemia Current Visit: Yes Status: Acute (3) ESRD on dialysis Current Visit: Yes Status: Acute (4) History of colon cancer Current Visit: Yes Status: Acute (5) Left kidney mass Current Visit: Yes Status: Acute - Plan Impression Lower GI bleed History of colon cancer Symptomatic anemia Hypertension ESRDon HD Left kidney massworsening in size History of CVA [place] Plan Rectal bleedlikely due to lower GI Will consult surgery Dr. Harry given previous colonoscopy Keep n.p.o. PRBC May need repeat colonoscopy in a.m. Hold aspirin and anticoagulation for now Will admit to ICU Symptomatic anemia2 unit PRBC today, follow H&H Will repeat PRBC if hemoglobin less than 8 ESRDcontinue HD in a.m./TTS, consult Dr. Choe Left kidney massincreasing in size, less likely contributing to GI bleed Follow for now Hypertensioncontrolled DVT prophylaxisSCDs for now Dispositionpossible hospital stay for more than 48 hours Full code - Advance Directives Does patient have a Living Will: Yes Does patient have a Durable POA for Healthcare: Yes Physician Review: Patient Assessed, Agree with Above Assessment and Plan
[2024-02-19] MEDS ORDERED: NA CHLORIDE 0.9% 250 ML IV SCH (20:00)
[2024-02-19] MEDS: PANTOPRAZOLE 40 MG INJ IVP SCH (21:00)
[2024-02-19] MEDS ORDERED: PANTOPRAZOLE 40 MG INJ ONE (21:29)
[2024-02-19] MEDS: GOLYTELY 4000 ML PO SCH (23:00)
[2024-02-19] MEDS: carvediloL 6.25 MG TAB PO SCH (23:12)
[2024-02-19] MEDS ORDERED: carvediloL 6.25 MG TAB ONE (23:22)
[2024-02-19] MEDS ORDERED: HYDROCODONE/APAP 5/325 MG TAB ONE (23:57)
[2024-02-20] MEDS: HYDROCODONE/APAP 5/325 MG TAB PO PRN (00:01)
[2024-02-20 00:45] VITALS: BMI 21.2
[2024-02-20 03:33] LABS: PT Prothrombin Time 16.8 SECONDS (9.4-12.5); Protime INR 1.52
[2024-02-20 04:51] LABS: Absolute Lymphocytes (CBC) 0.7 K/uL (0.7-4.9); Absolute Monocytes 1.2 K/uL (0.1-1.3); Basophils % 0.2 % (0-1.3); Eosinophils % 0.1 % (0-4.4); Hematocrit 19.1 % (36.0-45.0); Hemoglobin 6.1 g/dL (12.0-15.0); Lymphocytes % 4.8 % (15.3-44.8); MCH 27.2 pg (27.0-35.0); MCHC 32.1 g/dL (32.0-36.0); MCV 84.6 fL (80-100); MPV 7.8 fL (7.6-11.3); Monocytes % 8.4 % (3.3-12.3); Neutrophils % 86.5 % (41.7-73.7); Nucleated RBC Absolute Count 0.1 (0-0); Nucleated Red Blood Cells % 0.4 % (0-0); Platelets 207 thou/uL (152-406); RBC Red Blood Cell Count 2.26 M/uL (3.86-4.86); Red Cell Distribution Width 16.8 % (12.1-15.2)
[2024-02-20 05:04] LABS: AST/SGOT 15 U/L (15-37); Albumin 1.5 g/dL (3.4-5.0); Albumin/Globulin Ratio 0.5 (1.1-1.8); Alkaline Phosphatase 67 U/L (45-117); Anion Gap 10.8 mEq/L (5.0-15.0); BUN Blood Urea Nitrogen 35 mg/dL (7-18); Bicarbonate 28 mEq/L (21-32); Bilirubin Total 0.3 mg/dL (0.2-1.0); Globulin 2.9 g/dL (2.3-3.5); Glomerular Filtration Rate 10 ml/min (=/>90); Glucose Level 104 mg/dL (74-106); Potassium 4.8 mEq/L (3.5-5.1); Protein, Total 4.4 g/dL (6.4-8.2); Sodium Level 139 mEq/L (136-145)
[2024-02-20 05:06] LABS: ALT/SGPT < 14 U/L (13-56)
[2024-02-20 05:08] LABS: Troponin High Sensitivity 147.1 pg/mL (<58.9)
[2024-02-20] MEDS ORDERED: HYDROCODONE/APAP 5/325 MG TAB ONE (05:40)
[2024-02-20] MEDS ORDERED: PROMETHAZINE INJ 25 MG/ML AMP ONE (06:05)
[2024-02-20] MEDS ORDERED: FENTANYL CITR 100 MCG/2 ML ONE (06:05)
[2024-02-20] MEDS: PROMETHAZINE INJ 25 MG/ML AMP IV ONE (06:52)
[2024-02-20] MEDS: FENTANYL CITR 100 MCG/2 ML IV ONE (06:53)
[2024-02-20 07:15] LABS: Band Neutrophils 1 % (0-1); Blood Morphology Comment NOT SEEN (NOT SEEN); Differential Total Cells Count 100; Hypochromasia 1+; Lymphocytes 6 % (15-42); Monocytes 3 % (0-10); Nucleated Red Blood Cells 1 /100WBC; Platelet Estimate ADEQ; Polychromasia 1+; Segmented Neutrophils 90 % (40-80)
[2024-02-20] MEDS: LIOTHYRONINE SOD 5 MCG TAB PO SCH (08:00)
[2024-02-20] MEDS: GOLYTELY 4000 ML PO SCH (08:00)
[2024-02-20] MEDS: LEVOTHYROXINE SOD 0.05 MG TABLET PO SCH (08:00)
[2024-02-20] MEDS ORDERED: GABAPENTIN 100 MG CAP PO SCH (09:00)
[2024-02-20] MEDS ORDERED: PANTOPRAZOLE 40 MG INJ ONE (09:15)
[2024-02-20] MEDS ORDERED: propofoL 200 MG/20 ML VIAL IV ONE (09:49)
[2024-02-20] MEDS ORDERED: EPINEPHRINE 1 MG/ML VIAL ONE (09:52)
--- NOTE | 2024-02-20 10:04 | RAD REPORT ---
EXAM DESCRIPTION: CT - Pelvis Angio - 02/19/2024 4:42 pm CLINICAL HISTORY: Chest pain radiating to the back. rectal bleeding COMPARISON: Abdomen Pelvis Wo Contrast dated 07/29/2020 TECHNIQUE: CT angiography of the aorta was performed with MIPs. All CT scans are performed using dose optimization technique as appropriate and may include automated exposure control or mA/KV adjustment according to patient size. FINDINGS: CT angiography was performed of the abdominal aorta. Moderate atherosclerotic vascular dis ease is present distal abdominal aorta and iliac vessels. In the major visceral arteries are patent. Right vertebral artery is diminutive. Slight ostial plaquing is seen at the origin of both renal hung jimbo. There is no occlusion evident. Numerous small low-density hepatic lesions are present, nonspecific. Solid and cystic appearing mass with calcification posterior aspect of the left kidney 6.1 x 5.1 cm h as moderately increased in size since 07/29/2020. This is worrisome for neoplasia. No bowel obstruction, free fluid or free air seen. Right labial cystic lesion measuring 25 mm. IMPRESSION: No significant flow abnormality is detected. 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
[2024-02-20] MEDS ORDERED: NA CHLORIDE 0.9% 0 ML ONE (10:05)
[2024-02-20] MEDS: NA CHLORIDE 0.9% 1,000 ML ONE (10:13)
[2024-02-20 11:02] VITALS: O2SAT 100
[2024-02-20 11:52] LABS: Hematocrit 24.7 % (36.0-45.0); Hemoglobin 7.9 g/dL (12.0-15.0)
[2024-02-20] MEDS ORDERED: MORPHINE 2 MG/ML SYR ONE (13:29)
[2024-02-20] MEDS: MORPHINE 2 MG/ML SYR IV PRN (13:30)
[2024-02-20] MEDS ORDERED: ONDANSETRON 4 MG/2 ML VIAL ONE (13:44)
[2024-02-20] MEDS: ONDANSETRON 4 MG/2 ML VIAL IV PRN (13:51)
--- NOTE | 2024-02-20 15:55 | P.DS ---
Admission Date: 02/19/24 Discharge Date: 02/20/24 Disposition: TRANSFER TO [facility] Discharge Condition: FAIR Reason for Admission: Blood per rectum Brief History of Present Illness: 68-year-old female with past medical history of hypertension, CVA with weakness, ESRD previously on PD but recently switched to HDTTS, history of colon cancer in 2013, status post negative screening colonoscopy in [address] Harry, recent complicated peritoneal dialysis catheter removal requiring open laparotomy after adhesions at [facility] months ago; developed bloody clots per rectum earlier today. This was noticed by the spouse who states patient has small amount of stool but had large bloody clots. Patient is not sure if she has hematuria. Patient admitted to [facility]. Spouse has brought the patient to the emergency room because of the bloody stools. They deny any abdominal pain. No nausea vomiting or hematemesis. Arrival in the ED patient was tachycardic with heart rate in the 120s, blood pressure in the 130s over 60s, afebrile, laboratory workup shows hemoglobin of 6.6, WBC of 14 but no neutrophilia, BMP was unremarkable, CT of the abdomen and pelvics shows moderately increased size of a left kidney mass compared to previous CT in 2020. This is worrisome for neoplasia. Patient states they are aware of the kidney mass but has been told that it has been stable. Patient is being admitted for symptomatic anemia with lower GI bleed. GI Dr. Bahena has been consulted by the emergency room. Hospital Course: Pt is a 68yo female with past medical history of hypertension, CVA with weakness, ESRD previously on PD, but recently switched to HDTTS, Colon cancer in 2013, status post negative screening colonoscopy in [address] Harry, recent complicated peritoneal dialysis, catheter removal requiring open laparotomy after adhesions at [facility] months ago. Pt presented with bloody clots per rectum on 02/19/24. Lab studies showed Hgb 6.1, WBC 13.9. CT abd showed moderately increased size of a left kidney mass (6cm) compared to previous CT in 2020, concerning for neoplasia. We admitted pt for GI bleed and consulted GI. We continued protonix 40mg iv BID, IVF and gave 2 units of blood. Pt later had massive GI bleed before GI did endoscopy. EGD showed gastritis and colonoscopy showed necrotic ulcer and a lot of blood in the mid transverse colon. GI could not advance beyond that transverse colon. He recommended surgical intervention. We ordered 2 more units of blood and initiated transfer to [facility] for higher level of care by Gen surgery. Nephrology evaluated pt but did not recommend dialysis at this time. She was in fair condition prior to transfer. Vital Signs/Physical Exam: Temp Pulse Resp BP Pulse Ox 97.9 F 89 17 163/72 H 100 02/20/24 11:07 02/20/24 11:17 02/20/24 13:30 02/20/24 11:17 02/20/24 13:30 Laboratory Data at Discharge: WBC 13.90 thou/uL (4.3-10.9) H 02/20/24 04:21 Hgb 7.9 g/dL (12.0-15.0) L D 02/20/24 11:45 Hct 24.7 % (36.0-45.0) L 02/20/24 11:45 Plt Count 207 thou/uL (152-406) 02/20/24 04:21 PT 16.8 SECONDS (9.4-12.5) H 02/20/24 03:06 INR 1.52 02/20/24 03:06 Sodium 139 mEq/L (136-145) 02/20/24 04:21 Potassium 4.8 mEq/L (3.5-5.1) 02/20/24 04:21 BUN 35 mg/dL (7-18) H 02/20/24 04:21 Creatinine 4.54 mg/dL (0.55-1.02) H 02/20/24 04:21 Glucose 104 mg/dL (74-106) 02/20/24 04:21 Total Bilirubin 0.3 mg/dL (0.2-1.0) 02/20/24 04:21 AST 15 U/L (15-37) 02/20/24 04:21 ALT < 14 U/L (13-56) 02/20/24 04:21 Alkaline Phosphatase 67 U/L (45-117) D 02/20/24 04:21 Home Medications: Atorvastatin Calcium [Lipitor] 40 mg PO BEDTIME 09/17/16 Levothyroxine [Synthroid*] 0.05 mg PO DAILY 09/17/16 Liothyronine Sodium [Cytomel] 5 mcg PO DAILY 09/17/16 Apixaban [Eliquis *] 2.5 mg PO BID 30 Days #60 tablet 07/29/20 Carvedilol [Coreg] 6.25 mg PO BID 04/26/21 Diclofenac Sodium 1 tab PO BID 02/19/24 Docusate Sodium [Dulcolax Stool Softener] 100 mg PO 02/19/24 Gabapentin 100 mg PO BID 02/19/24 Hydrocodone Bit/Acetaminophen [Hydrocodon-Acetaminophen 5-325] 1 tab QID 02/19/24 Potassium Chloride 1 tab PO DAILY 02/19/24 Diet: AHA Activity: Ad pillo Followup: Lexx Riggins MD [Primary Care Provider] -
[2024-02-20] MEDS ORDERED: NA CHLORIDE 0.9% 250 ML ONE (15:56)
[2024-02-20 16:58] VITALS: BP 113/64; TEMP 97.2
[2024-02-20] MEDS ORDERED: ATORVASTATIN 40 MG TAB PO SCH (21:00)
--- NOTE | 2024-02-20 21:14 | P.CNS ---
Date of Consult: 02/20/24 Reason for Consult: ESRD Requesting Physician: Erick Melgoza Chief Complaint: Blood per rectum History of Present Illness: 68-year-old female with past medical history of hypertension, CVA with weakness, ESRD previously on PD but recently switched to HDTTS, history of colon cancer in 2013, status post negative screening colonoscopy in [address] Harry, recent complicated peritoneal dialysis catheter removal requiring open laparotomy after adhesions at [facility] months ago; developed bloody clots per rectum earlier today. This was noticed by the spouse who states patient has small amount of stool but had large bloody clots. Patient is not sure if she has hematuria. Patient admitted to [facility]. Spouse has brought the patient to the emergency room because of the bloody stools. They deny any abdominal pain. No nausea vomiting or hematemesis. Arrival in the ED patient was tachycardic with heart rate in the 120s, blood pressure in the 130s over 60s, afebrile, laboratory workup shows hemoglobin of 6.6, WBC of 14 but no neutrophilia, BMP was unremarkable, CT of the abdomen and pelvics shows moderately increased size of a left kidney mass compared to previous CT in 2020. This is worrisome for neoplasia. Patient states they are aware of the kidney mass but has been told that it has been stable. Patient is being admitted for symptomatic anemia with lower GI bleed. GI Dr. Bahena has been consulted by the emergency room. [id number] 18:58 This 68 yrs old Black Female presents to ER via EMS with complaints of Bloody Stools. ms3 18:58 68-year-old female past medical history of CVA, dysphagia, hypertension, thyroid ms3 problems presents to the emergency department for rectal bleeding. Patient states she was dizzy earlier in the day. Patient denies pain. Patient states she may be on Eliquis and is unsure. Allergies amlodipine [From Norvasc] Allergy (Verified 01/28/19 07:27) Itching baclofen Allergy (Verified 02/20/24 10:05) "COMA" Home medications list reviewed: Yes Home Medications: Atorvastatin Calcium [Lipitor] 40 mg PO BEDTIME 09/17/16 Levothyroxine [Synthroid*] 0.05 mg PO DAILY 09/17/16 Liothyronine Sodium [Cytomel] 5 mcg PO DAILY 09/17/16 Apixaban [Eliquis *] 2.5 mg PO BID 30 Days #60 tablet 07/29/20 Carvedilol [Coreg] 6.25 mg PO BID 04/26/21 Diclofenac Sodium 1 tab PO BID 02/19/24 Docusate Sodium [Dulcolax Stool Softener] 100 mg PO 02/19/24 Gabapentin 100 mg PO BID 02/19/24 Hydrocodone Bit/Acetaminophen [Hydrocodon-Acetaminophen 5-325] 1 tab QID 02/19/24 Potassium Chloride 1 tab PO DAILY 02/19/24 - Past Medical/Surgical History Diabetic: No -: Hypertension -: CVA -: ESRD (Dr. Grimes/ [place]) -: Hyperlipidemia -: colon cancer 2013 -: Hypothyroidism -: History of transient atrial fibrillation -: fistula placement -: PD catheter placement and recent removal -: Colon resection -: Thyroid surgery Psychosocial/ Personal History: Patient disabled, lives with - Social History Alcohol use: No CD- Drugs: No Caffeine use: Yes Place of Residence: Home Review of Systems 10-point ROS is otherwise unremarkable General: Weakness, Malaise Gastrointestinal: Hematochezia Physical Examination Temp Pulse Resp BP Pulse Ox 97.2 F 77 15 113/64 100 02/20/24 16:57 02/20/24 16:57 02/20/24 16:57 02/20/24 16:57 02/20/24 16:57 General: In no apparent distress, Oriented x3, Cooperative HEENT: Atraumatic Neck: Supple Respiratory: Normal air movement Cardiovascular: Regular rate/rhythm, Edema Gastrointestinal: Non-distended, No guarding Musculoskeletal: No clubbing, No contractures Integumentary: No rashes, No cyanosis Neurological: Normal speech Blood work reviewed in the chart. Imagings Data: [id number] EXAM DESCRIPTION: CT - Abdomen Angio - 02/19/2024 4:29 pm CLINICAL HISTORY: Chest pain radiating to the back. rectal bleeding COMPARISON: Abdomen Pelvis Wo Contrast dated 07/29/2020 TECHNIQUE: CT angiography of the aorta was performed with MIPs. All CT scans are performed using dose optimization technique as appropriate and may include automated exposure control or mA/KV adjustment according to patient size. FINDINGS: CT angiography was performed of the abdominal aorta. Moderate atherosclerotic vascular disease is present distal abdominal aorta and iliac vessels. In the major visceral arteries are patent. Right vertebral artery is diminutive. Slight ostial plaquing is seen at the origin of both renal arteries. There is no occlusion evident. Numerous small low-density hepatic lesions are present, nonspecific. Solid and cystic appearing mass with calcification posterior aspect of the left kidney 6.1 x 5.1 cm has moderately increased in size since 07/29/2020.This is worrisome for neoplasia. No bowel obstruction, free fluid or free air seen. Right labial cystic lesion measuring 25 mm. IMPRESSION: No significant flow abnormality is detected. 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 Conclusions/Impression: ESRD on HD -Next HD tomorrow HTN with CKD/ CHF -Continue Coreg Diastolic CHF, chronic -HD with UF Hypoalbuminemia -Start Nepro Anemia in CKD -Retacrit qHD -PRBC as ordered CKD MBD -Start Ergo 6 cm left renal mass has increased in size since 2020 is most likely neoplastic mass -Plan for transfer to [facility] for surgical evaluation Case reviewed with Dr. Melgoza Thank you kindly for the consultation
[2024-02-20] MEDS ORDERED: NA CHLORIDE 0.9% 1,000 ML IV PRN (21:53)
[2024-02-20] MEDS ORDERED: MANNITOL 25% 12.5 GM/50 ML VIAL IV PRN (21:53)
[2024-02-20] MEDS ORDERED: ALBUMIN HUMAN 25% 50 ML IV SCH (22:00)
[2024-02-20] MEDS ORDERED: EPOETIN ALFA 10,000 UNIT/ML VIAL IV SCH (22:00)
[2024-02-21] MEDS ORDERED: DOCUSATE NA 100 MG CAP PO SCH (09:00)
[2024-02-21] MEDS ORDERED: NEPRO SHAKE 237 ML CAN PO SCH (09:00)
--- NOTE | 2024-02-21 14:43 | EKG ---
Test Date: 2024-02-19 Test Time: 23:00:11 Repatcher: LUIS MEASUREMENT RESULTS: Intervals: Rate: 115 LA: QRSD: 76 QT: 326 QTc: 450 Morrill: P: LA: QRS: 66 T: 70 INTERPRETIVE STATEMENTS: Atrial fibrillation with rapid ventricular response Abnormal ECG Compared to ECG 02/13/2023 21:27:55 Sinus rhythm no longer present Atrial premature complex(es) no longer present ST (T wave) deviation no longer present Electronically Signed On 02-21-24 14:40:24 CDT by Mauricio Rivera
[2024-02-27] MEDS ORDERED: DRISDOL (VITAMIN D=ERGOCALCIFEROL) 50000 UNIT CAP PO SCH (09:00)
== END 2024-02-20 18:00 | disposition short-term general hospital (02) | DRG 393 ==
LOC: ER 15:13 → ERHOLD 19:28
PROVIDERS: ADMIT Internal Medicine; ATTEND Hospitalist
PROC: 30233N1 Transfusion of Nonautologous Red Blood Cells into Peripheral Vein, Percutaneous Approach (ICD-10-PCS; principal; 2024-02-19)
PROC: 0DBL8ZX Excision of Transverse Colon, Via Natural or Artificial Opening Endoscopic, Diagnostic (ICD-10-PCS; 2024-02-20)
PROC: 0DB68ZX Excision of Stomach, Via Natural or Artificial Opening Endoscopic, Diagnostic (ICD-10-PCS; 2024-02-20 09:30)
DX: K63.3 Ulcer of intestine (principal); N18.6 End stage renal disease; I50.32 Chronic diastolic (congestive) heart failure; I13.2 Hypertensive heart and chronic kidney disease with heart failure and with stage 5 chronic kidney disease, or end stage renal disease; K29.50 Unspecified chronic gastritis without bleeding; D63.1 Anemia in chronic kidney disease; I48.91 Unspecified atrial fibrillation; E78.5 Hyperlipidemia, unspecified; E88.09 Other disorders of plasma-protein metabolism, not elsewhere classified; E03.9 Hypothyroidism, unspecified; N28.89 Other specified disorders of kidney and ureter; Z99.2 Dependence on renal dialysis; Z88.8 Allergy status to other drugs, medicaments and biological substances; Z79.01 Long term (current) use of anticoagulants; Z86.73 Personal history of transient ischemic attack (TIA), and cerebral infarction without residual deficits; Z79.890 Hormone replacement therapy; Z79.899 Other long term (current) drug therapy; Z85.038 Personal history of other malignant neoplasm of large intestine
CPT/HCPCS: 36415; 72191; 74175; 80053; 84484; 85014; 85018; 85025; 85610; 86850; 86900; 86901; 86920; 88305; 93005; 99285; J0171; J2270; J2405; J2470; J2550; J2704; J3010; J7030; J7040; J7050; P9016; P9040; Q9967